=== PATIENT | male | born 1940 | race Caucasian/White ===

== ENCOUNTER 2016-08-26 19:57 | Inpatient (IN) | payer BC, OTHER ==
[~2016-08-26] VITALS: Ht 182.9 cm; Wt 149.6 kg
[~2016-08-26 19:57] MED LIST: CRAN1CAP3 PO; DOXY100C76 PO; HYDR-5688 PO; LOSA50TA6 PO; METO200T29 PO; POTA-74 PO; PRS5 PO
[2016-08-26] MEDS ORDERED: SODIUM CHLORIDE 0.9% 1000ML 1,000 ML IV ONE (20:38)
[2016-08-26] MEDS ORDERED: SODIUM CHLORIDE 0.9% 1000ML 1,000 ML IV STA (20:38)
--- NOTE | 2016-08-26 20:40 | EMERGENCY ROOM VISIT NOTE ---
"History Report prepared by Mann: Eliezer Emery Under the Supervision of: Dr. Vamshi Wood M.D. First contact with patient: 20:30 Chief Complaint: FALL Stated Complaint: FALL, WEAKNESS History of Present Illness The patient is a 75 year old male who presents to the Emergency Room with complaints of an acute fall that occurred at approximately 1900 tonight. The patient was walking out of his bathroom when he fell. He did not pass out and fell without warning. The patient did not sustain any injuries from the fall and currently denies any pain. The patient denies fevers, headaches, chest pain , shortness of breath, abdominal pain, black or bloody stools, weakness or numbness. The patient was on the ground for at least 30 minutes after the fall. 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 He was seen by [facility] last Monday and was told he has an infection. He was started on antibiotics three days ago. The mass has not changed. The mass occasionally bleeds. The patient is on Coumadin. Source of History: patient, family, spouse/significant other Review of Systems See HPI for pertinent positives & negatives. A total of 10 systems reviewed and were otherwise negative. 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 Nurse's notes were reviewed and I agree with. Family History Patient reports no known family medical history. Social History Smoking Status: Former Smoker Alcohol Use: none Drug Use: none Marital Status: Housing Status: lives with family Occupation Status: retired Current/Historical Medications Scheduled Aspirin (Aspirin Ec), 81 MG PO QAM Clotrimazole W/ Betamethasone (Lotrisone), 1 APPLN TOP BID Digoxin (Digoxin), 0.125 MG PO QAM Docusate Sodium (Colace), 100 MG PO AMPM Doxycycline Hyclate (Vibramycin), 100 MG PO BID Ferrous Gluconate (Ferrous Gluconate), 324 MG PO AMPM Finasteride (Finasteride), 5 MG PO QAM Furosemide (Lasix), 20 MG PO QAM Ketoconazole (Topical) (Ketoconazole), 1 APPLN TOP BID Losartan Potassium (Cozaar), 50 MG PO QAM Metformin Hcl (Glucophage), 500 MG PO QAM Metoprolol Succinate (Toprol Xl), 200 MG PO QAM Nystatin/Triamcinolone (Mycolog ||), 1 APPLN TOP BID Potassium Chloride (Potassium Chloride Er), 10 MEQ PO QAM Probiotic Product (Pro-Biotic Blend), 1 CAP PO AMPM Warfarin Sodium (Coumadin), 2.5 MG PO 2XWK Warfarin Sodium (Coumadin), 5 MG PO 5XWK Scheduled PRN Acetaminophen (Acetaminophen Extra Stren), 500 MG PO Q6 PRN for Pain Allergies Coded Allergies: Metronidazole (Verified Allergy, Severe, see below, 08/26/16) Last discharge summary indicates flagyl was stopped for possible temporal relation to foot drop that developed that admission. Amoxicillin (Verified Allergy, Intermediate, rash, 08/26/16) Physical Exam Vital Signs Date Time Temp Pulse Resp B/P Pulse Ox O2 Delivery O2 Flow Rate FiO2 08/27/16 03:30 101 20 95 08/27/16 03:00 95 15 96 08/27/16 02:30 106 20 129/112 93 Nasal Cannula 2.0 08/27/16 02:00 106 22 92 Nasal Cannula 2.0 08/27/16 01:48 100 22 109/61 98 Nasal Cannula 2.0 08/27/16 00:27 118 08/27/16 00:00 116 20 130/65 96 Nasal Cannula 2.0 08/26/16 23:30 37.3 116 19 128/52 95 Nasal Cannula 3.0 08/26/16 21:32 120 24 134/56 94 Nasal Cannula 3.0 08/26/16 20:32 123 08/26/16 20:00 90 Nasal Cannula 3.0 08/26/16 19:58 37.5 134 14 132/78 88 Room Air Physical Exam General: Non ill appearing obese older male no acute distress. HEENT: Normal cephalic atraumatic. Pupils are equal round and reactive to light. Sclerae anicteric. Extraocular movements are intact. Oropharynx is pink with moist mucous membranes. No swelling of the mouth lips or tongue. Neck: Supple with a midline trachea. No meningeal signs or stiffness, no JVD or bruits. No Stridor. Chest: Clear to auscultation bilaterally. No wheezes or rhonchi. No increased work of breathing. Heart: Irregularly irregular mildly tachycardic. Abdomen: Soft nontender, nondistended without rebound guarding or rigidity. Extremities: No cyanosis clubbing or edema. No calf tenderness or assymetry Spine/Back. Non tender to palpation. No CVA tenderness Skin: Good turgor without rashes. Neurologic exam: Cranial nerves two through 12 are intact. Motor and sensation are intact and symmetrical throughout. Genitourinary: Large scrotal mass that is very complex appearing, purple, skin breakdown, says color is unchanged. Medical Decision & Procedures ER Provider Diagnostic Interpretation: Radiology results as stated below per my review and radiologist interpretation: CHEST ONE VIEW PORTABLE CLINICAL HISTORY: Chest pain. Fall. COMPARISON STUDY: Chest radiograph March 02, 2014. FINDINGS: No pneumothorax or pleural effusion is present. Mild cardiomegaly is unchanged. There is no evidence of pulmonary edema. No airspace opacities are identified. IMPRESSION: No acute cardiopulmonary findings. Electronically signed by: Aroldo Mahan M.D. 08/26/2016 9:25 PM Dictated Date/Time: 08/26/2016 9:[address] PELVIS: CT of the abdomen and pelvis comparison dated 06/22/2015. CT of the abdomen and pelvis performed same day. Redemonstrated is marked nodularity and skin thickening along the inferior portion of what appears to be the scrotum and/or part of the patient's pannus. There is no soft tissue gas to suggest necrotizing process. This is not significantly chained since prior comparison. There is mild skin thickening and some subcutaneous soft tissue edema involving the pre-pubic and pannus. Please correlate for cellulitis. No subcutaneous soft tissue fluid collection or evidence of necrotizing process. Radiologist: Jesus Bruno MD Laboratory Results 08/26/16 21:15 Red Blood Count 4.81, Mean Corpuscular Volume 86.7, Mean Corpuscular Hemoglobin 28.3, Mean Corpuscular Hemoglobin Concent 32.6, Mean Platelet Volume 9.7, Neutrophils (%) (Auto) 91.1, Lymphocytes (%) (Auto) 4.4, Monocytes (%) (Auto) 4.1, Eosinophils (%) (Auto) 0.0, Basophils (%) (Auto) 0.1, Neutrophils # (Auto) 18.49, Lymphocytes # (Auto) 0.90, Monocytes # (Auto) 0.83, Eosinophils # (Auto) 0.01, Basophils # (Auto) 0.03 08/26/16 21:15 Test 08/26/16 21:15 08/26/16 21:23 08/26/16 21:29 08/27/16 03:06 White Blood Count 20.33 K/uL (4.8-10.8) Red Blood Count 4.81 M/uL (4.7-6.1) Hemoglobin 13.6 g/dL (14.0-18.0) Hematocrit 41.7 % (42-52) Mean Corpuscular Volume 86.7 fL (80-100) Mean Corpuscular Hemoglobin 28.3 pg (25-34) Mean Corpuscular Hemoglobin Concent 32.6 g/dl (32-36) Platelet Count 297 K/uL (130-400) Mean Platelet Volume 9.7 fL (7.4-10.4) Neutrophils (%) (Auto) 91.1 % Lymphocytes (%) (Auto) 4.4 % Monocytes (%) (Auto) 4.1 % Eosinophils (%) (Auto) 0.0 % Basophils (%) (Auto) 0.1 % Neutrophils # (Auto) 18.49 K/uL (1.4-6.5) Lymphocytes # (Auto) 0.90 K/uL (1.2-3.4) Monocytes # (Auto) 0.83 K/uL (0.11-0.59) Eosinophils # (Auto) 0.01 K/uL (0-0.5) Basophils # (Auto) 0.03 K/uL (0-0.2) RDW Standard Deviation 50.6 fL (36.4-46.3) RDW Coefficient of Variation 15.9 % (11.5-14.5) Immature Granulocyte % (Auto) 0.3 % Immature Granulocyte # (Auto) 0.07 K/uL (0.00-0.02) Prothrombin Time 31.6 SECONDS (9.0-12.0) Prothromb Time International Ratio 2.8 (0.9-1.1) Activated Partial Thromboplast Time 42.7 SECONDS (21.0-31.0) Partial Thromboplastin Ratio 1.6 Anion Gap 10.0 mmol/L (3-11) Est Creatinine Clear Calc Drug Dose 80.1 ml/min Estimated GFR () 68.1 Estimated GFR (Non- 58.8 BUN/Creatinine Ratio 19.2 (10-20) Osmolality 289 mOsm/kg (280-300) Calcium Level 8.8 mg/dl (8.5-10.1) Total Bilirubin 0.5 mg/dl (0.2-1) Direct Bilirubin 0.1 mg/dl (0-0.2) Aspartate Amino Transf (AST/SGOT) 17 U/L (15-37) Alanine Aminotransferase (ALT/SGPT) 13 U/L (12-78) Alkaline Phosphatase 60 U/L (45-117) Total Creatine Kinase 139 U/L (39-308) Creatine Kinase MB 1.7 ng/ml (0.5-3.6) Creatine Kinase MB Ratio 1.2 (0-3.0) Total Protein 8.1 gm/dl (6.4-8.2) Albumin 3.2 gm/dl (3.4-5.0) Lipase 162 U/L (73-393) Bedside Lactic Acid Venous 3.17 mmol/L (0.90-1.70) Bedside Troponin I 0.000 ng/ml (0-0.045) Lactic Acid Level 1.9 mmol/L (0.4-2.0) Laboratory studies as stated above per my review. Medications Administered Medications (Trade) Dose Ordered Sig/Jakub Route Start Time Stop Time Status Last Admin Dose Admin Sodium Chloride 1,000 ml @ 999 mls/hr Q1H1M STAT IV 08/26/16 20:38 08/26/16 21:38 DC 08/26/16 21:34 999 MLS/HR Sodium Chloride 1,000 ml @ 150 mls/hr Q6H40M ONCE IV 08/26/16 20:38 08/27/16 03:17 DC 08/26/16 21:34 150 MLS/HR Aztreonam 2000 mg/ Dextrose 110 ml @ 100 mls/hr ONE STAT IV 08/26/16 21:41 08/26/16 22:46 DC 08/26/16 23:23 100 MLS/HR Daptomycin/Sodium Chloride (Cubicin IV/Nss 50ml) 68 ml @ 100 mls/hr ONE STAT IV 08/26/16 21:41 08/26/16 22:21 DC 08/26/16 22:16 100 MLS/HR Morphine Sulfate (MoRPHine SULFATE INJ) 4 mg NOW STAT IV 08/27/16 01:25 08/27/16 01:26 DC 08/27/16 01:48 4 MG Ondansetron HCl 4 mg 4 mg NOW STAT IV 08/27/16 01:25 08/27/16 01:26 DC 08/27/16 01:48 4 MG Sodium Chloride (Nss 1000ml) 1,000 ml @ 999 mls/hr Q1H1M STAT IV 08/27/16 01:34 08/27/16 02:34 DC 08/27/16 01:48 999 MLS/HR ECG Indication: other (fall) Rate (beats per minute): 123 Rhythm: atrial fibrillation (RVR) Findings: nonspecific-ST abn, other (RVR) Change: Rate has increased compared to EKG on 2013. ED Course 2030: Past medical records reviewed. The patient was evaluated in room C11b, and a complete history and physical examination were performed. 2037: NSS 1000 ml @ 150 mls/hr, NSS 1000 ml @ 999 mls/hr. 2134: Examined the patient's scrotal hemangioma. 2140: Daptomycin 900 mg / NSS 68 ml @ 100 mls/hr, Aztreonam 2000 mg / dextrose 110 ml @ 100 mls/hr. 2149: [facility] She would like a urology consult. 2199: Spoke with the on-call Urologist. They recommended a CT scan. The patient was updated and agrees with the plan. 2240: The patient is resting comfortably and doesn't have any complaints. 0116: [facility] The patient will be evaluated. 0125: Zofran 4 mg IV, Morphine Sulfate 4 mg IV. 0134: NSS 1000 ml @ 999 mls/hr. Medical Decision Differential diagnosis includes cellulitis, Quoc's gangrene, electrolyte or metabolic abnormality, sepsis. This patient comes in as described above. He was placed in room C11. He is here for treatment and evaluation after falling. He says he feels well. He denies fever. He was started on doxycycline for scrotal infection. he has a large scrotal mass that tends to get infected. He is difficult to examine this due to his large body size. He has no chest pain or shortness of breath. He says he feels fine. he denies fever home. He is mildly tachycardic here but normotensive. IV access established and I was concerning that he does have a white count at 20. His lactic acid is also elevated. He was given IV hydration and responded to this he got less tachycardic and was urinating frequently. I did a CAT scan of his abdomen and pelvis after talking the radiologist and there is no evidence to suggest necrotic infection or subcutaneous air. He would be difficult clinically tell if he has a Quoc's due to the chronic discoloration of his scrotal mass but on CAT scan there is no evidence. The urologist told me if this looked normal that he could be admitted here for IV antibiotics. I did give the patient broad-spectrum IV daptomycin and IV aztreonam. He is pen allergic and he received these in the ER. I did consult Dr. Daly, [facility]. She saw the patient ER and will admit the patient for further treatment and evaluation the patient also he did receive IV morphine and IV Zofran for pain management in the ER. Family was happy with the plan and he will be admitted. Consults Time Called: 109 Consulting Physician: Kira Robertson [id number] Returned Call: 115 115: [facility] The patient will be evaluated. Impression Primary Impression: Sepsis Additional Impressions: Scrotal infection Testicular mass Critical Care I have personally spent greater than 30 minutes of critical care time in the direct management of this patient. This includes bedside care, interpretation of diagnostic studies, and testing, discussion with consultants, patient, and family members, and other required patient management activities. This 30 minutes is in excess of all separately billable procedures. Scribe Attestation The scribe's documentation has been prepared under my direction and personally reviewed by me in its entirety. I confirm that the note above accurately reflects all work, treatment, procedures, and medical decision making performed by me. Departure Information Dispostion Being Evaluated By Hospitalist Referrals Newhouser, Donte D., D.O. (PCP) Patient Instructions My [facility] Problem Qualifiers"
--- NOTE | 2016-08-26 21:26 | DIAGNOSTIC IMAGING REPORT ---
CHEST ONE VIEW PORTABLE CLINICAL HISTORY: Chest pain. Fall. COMPARISON STUDY: Chest radiograph March 02, 2014. FINDINGS: No pneumothorax or pleural effusion is present. Mild cardiomegaly is unchanged. There is no evidence of pulmonary edema. No airspace opacities are identified. IMPRESSION: No acute cardiopulmonary findings. Electronically signed by: Aroldo Mahan M.D. 08/26/2016 9:25 PM Dictated Date/Time: 08/26/2016 9:24 PM
[2016-08-26 21:33] LABS: BASO % 0.1 %; BASO ABS # 0.03 K/uL (0-0.2); COMPLETE YES; HEMATOCRIT 41.7 % (42-52); IG% 0.3 %; LYMPH % 4.4 %; MEAN CELL VOLUME 86.7 fL (80-100); MEAN CORPUSCULAR HEMOGLOBIN 28.3 pg (25-34); MEAN CORPUSCULAR HGB CONC 32.6 g/dl (32-36); MEAN PLATELET VOLUME 9.7 fL (7.4-10.4); MONO % 4.1 %; NEUT % 91.1 %; PLATELET COUNT 297 K/uL (130-400); RED BLOOD COUNT 4.81 M/uL (4.7-6.1); WHITE BLOOD COUNT 20.33 K/uL (4.8-10.8)
[2016-08-26] MEDS ORDERED: AZTREONAM IV 2,000 MG in DEXTROSE 5% 100ML 100 ML IV STA (21:41)
[2016-08-26] MEDS ORDERED: DAPTOmycin IV 900 MG in SODIUM CHLORIDE 0.9% 50ML 50 ML IV STA (21:41)
[2016-08-26 21:43] LABS: INR 2.8 (0.9-1.1); PARTIAL THROMBOPLASTIN RATIO 1.6; PROTHROMBIN TIME (PATIENT) 31.6 SECONDS (9.0-12.0)
[2016-08-26 21:50] LABS: BUN/CREATININE RATIO 19.2 (10-20); CALCIUM 8.8 mg/dl (8.5-10.1); CREATININE 1.2 mg/dl (0.60-1.40); POTASSIUM 4.8 mmol/L (3.5-5.1)
[2016-08-26 21:55] LABS: CKMB/CK RATIO 1.2 (0-3.0)
[2016-08-26] MEDS ORDERED: NYSTCRE11 TOP (22:17)
[2016-08-26] MEDS ORDERED: KETO2SHA TOP (22:17)
[2016-08-26] MEDS ORDERED: ACET-749 PO (22:17)
[2016-08-26] MEDS ORDERED: CLOTCRE33 TOP (22:17)
[2016-08-26] MEDS ORDERED: DOXY100C2 PO (22:26)
[2016-08-27] VITALS (8 sets, daily range): BP systolic 103–118; BP diastolic 55–64; PULSE 84–96; TEMP 36.6–36.9; O2SAT 90–93; Ht 182.9 cm; Wt 149.6 kg
[2016-08-27] MEDS ORDERED: ONDANSETRON INJ 2 MG/ML 2 ML VIAL IV STA (01:25)
[2016-08-27] MEDS ORDERED: MoRPHine SULFATE 4 MG/ML 1 ML CARP\\VIAL IV STA (01:25)
[2016-08-27] MEDS ORDERED: SODIUM CHLORIDE 0.9% 1000ML 1,000 ML IV STA (01:34)
[2016-08-27] MEDS ORDERED: ONDANSETRON INJ 2 MG/ML 2 ML VIAL IV PRN (02:00)
[2016-08-27] MEDS ORDERED: GLUCOSE 10 TABS/TUBE PO PRN ×2 (02:00→02:15)
[2016-08-27] MEDS ORDERED: ACETAMINOPHEN 325 MG TAB PO PRN (02:00)
[2016-08-27] MEDS ORDERED: GLUCAGON FOR INJ 1 MG VIAL SQ PRN ×2 (02:00→02:15)
[2016-08-27] MEDS ORDERED: POLYETHYLENE (MIRALAX) 17 GM PACK PO PRN (02:00)
[2016-08-27] MEDS ORDERED: DEXTROSE 50% 50 ML SYR IV PRN ×2 (02:00→02:15)
[2016-08-27] MEDS ORDERED: GLUCOSE 40% GEL 15 GM TUBE PO PRN ×2 (02:00→02:15)
[2016-08-27] MEDS ORDERED: PHARMACY GLYCEMIC MGMT CONSULT PRN (02:25)
--- NOTE | 2016-08-27 03:35 | History and Physical ---
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 He was given this by wound care who sees him for this issue regularly. He underwent an IR embolization of this area at [facility], and there are plans for another IR procedure in the near future. He denies any fevers, chills or feeling bad in the last couple of days, when at home he tripped and fell onto him right side where his family found him. The patient remembers the fall, denying any loss of consciousness or lightheadedness preceding the episode. He feels he might have just tripped. He denies any dysuria, or difficulties urinating. There is a red rash area that appears to be new to the patient and his which encompasses his suprapubic region and appears consistent with a cellulitis. He has a superficial wound to a dependent area of swelling to the left side of his scrotal area. He denies any headache, chest pain, shortness of breath, sore throat, congestion, cough, fevers, chills, nausea, vomiting, diarrhea, constipation, blood per rectum or pain anywhere else. 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 Social History Smoking Status: Former Smoker Smokeless Tobacco Use: Unknown Alcohol Use: none Drug Use: none Marital Status: Housing status: lives with significant other Occupational Status: retired Immunizations History of Influenza Vaccine: Yes Influenza Vaccine Date: May 09, 2016 History of Tetanus Vaccine?: Yes (UTD) Tetanus Immunization Date: Aug 09, 2012 History of Pneumococcal: Yes Pneumococcal Date: Aug 27, 2006 History of Hepatitis B Vaccine: No Multi-Drug Resistant Organisms History of MDRO: No Allergies Coded Allergies: Metronidazole (Verified Allergy, Severe, see below, 08/26/16) Last discharge summary indicates flagyl was stopped for possible temporal relation to foot drop that developed that admission. Amoxicillin (Verified Allergy, Intermediate, rash, 08/26/16) Home Medications Scheduled Aspirin (Aspirin Ec), 81 MG PO QAM Clotrimazole W/ Betamethasone (Lotrisone), 1 APPLN TOP BID Digoxin (Digoxin), 0.125 MG PO QAM Docusate Sodium (Colace), 100 MG PO AMPM Doxycycline Hyclate (Vibramycin), 100 MG PO BID Ferrous Gluconate (Ferrous Gluconate), 324 MG PO AMPM Finasteride (Finasteride), 5 MG PO QAM Furosemide (Lasix), 20 MG PO QAM Ketoconazole (Topical) (Ketoconazole), 1 APPLN TOP BID Losartan Potassium (Cozaar), 50 MG PO QAM Metformin Hcl (Glucophage), 500 MG PO QAM Metoprolol Succinate (Toprol Xl), 200 MG PO QAM Nystatin/Triamcinolone (Mycolog ||), 1 APPLN TOP BID Potassium Chloride (Potassium Chloride Er), 10 MEQ PO QAM Probiotic Product (Pro-Biotic Blend), 1 CAP PO AMPM Warfarin Sodium (Coumadin), 2.5 MG PO 2XWK Warfarin Sodium (Coumadin), 5 MG PO 5XWK Scheduled PRN Acetaminophen (Acetaminophen Extra Stren), 500 MG PO Q6 PRN for Pain Review of Systems All systems reviewed and negative except as indicated in HPI Physical Exam Vital Signs Date Time Temp Pulse Resp B/P Pulse Ox O2 Delivery O2 Flow Rate FiO2 08/27/16 00:27 118 08/27/16 00:00 116 20 130/65 96 Nasal Cannula 2.0 08/26/16 23:30 37.3 116 19 128/52 95 Nasal Cannula 3.0 08/26/16 21:32 120 24 134/56 94 Nasal Cannula 3.0 08/26/16 20:32 123 08/26/16 20:00 90 Nasal Cannula 3.0 08/26/16 19:58 37.5 134 14 132/78 88 Room Air GEN: Obese, in no acute distress, alert and appropriate, cannot move around bed very easily. HEENT: NC/AT, PERRL, normal sclerae CARDIO: reg rate, irregular rhythm, S1/2 heard without m/g/r LUNGS: CTA bilaterally, no crackles, rales or wheezes, good diaphragmatic excursion ABD: soft, non-tender, non-distended, no rebound or guarding. There is an area of erythema extending up from suprapubic region to just below the umbilicus : penis cannot be seen, there are two testicles of normal size. There is a large area of dark purple skin with chronic changes to skin. On the under surface of this swelling is a chafed area that is an open wound. It appears irritated and inflamed. EXTREMITY: RP and DP palpable 2+ bilat, no LE swelling or edema, deep purple rough skin consistent with chronic changes from venous stasis, extremities are warm and well-perfused NEURO: CN 2-12 grossly intact, sensation intact throughout MUSC: Generalized weakness, no focal deficits. SKIN: warm and dry and as above Diagnostics Laboratory Results Results Past 24 Hours Test 08/26/16 20:38 08/26/16 21:15 08/26/16 21:23 08/26/16 21:29 Range/Units Creatine Kinase MB Ratio 1.2 0-3.0 White Blood Count 20.33 4.8-10.8 K/uL Red Blood Count 4.81 4.7-6.1 M/uL Hemoglobin 13.6 14.0-18.0 g/dL Hematocrit 41.7 42-52 % Mean Corpuscular Volume 86.7 80-100 fL Mean Corpuscular Hemoglobin 28.3 25-34 pg Mean Corpuscular Hemoglobin Concent 32.6 32-36 g/dl Platelet Count 297 130-400 K/uL Mean Platelet Volume 9.7 7.4-10.4 fL Neutrophils (%) (Auto) 91.1 % Lymphocytes (%) (Auto) 4.4 % Monocytes (%) (Auto) 4.1 % Eosinophils (%) (Auto) 0.0 % Basophils (%) (Auto) 0.1 % Neutrophils # (Auto) 18.49 1.4-6.5 K/uL Lymphocytes # (Auto) 0.90 1.2-3.4 K/uL Monocytes # (Auto) 0.83 0.11-0.59 K/uL Eosinophils # (Auto) 0.01 0-0.5 K/uL Basophils # (Auto) 0.03 0-0.2 K/uL RDW Standard Deviation 50.6 36.4-46.3 fL RDW Coefficient of Variation 15.9 11.5-14.5 % Immature Granulocyte % (Auto) 0.3 % Immature Granulocyte # (Auto) 0.07 0.00-0.02 K/uL Prothrombin Time 31.6 9.0-12.0 SECONDS Prothromb Time International Ratio 2.8 0.9-1.1 Activated Partial Thromboplast Time 42.7 21.0-31.0 SECONDS Partial Thromboplastin Ratio 1.6 Sodium Level 130 136-145 mmol/L Potassium Level 4.8 3.5-5.1 mmol/L Chloride Level 99 98-107 mmol/L Carbon Dioxide Level 21 21-32 mmol/L Anion Gap 10.0 3-11 mmol/L Blood Urea Nitrogen 23 7-18 mg/dl Creatinine 1.20 0.60-1.40 mg/dl Est Creatinine Clear Calc Drug Dose 80.1 ml/min Estimated GFR () 68.1 Estimated GFR (Non- 58.8 BUN/Creatinine Ratio 19.2 10-20 Random Glucose 155 70-99 mg/dl Calcium Level 8.8 8.5-10.1 mg/dl Total Bilirubin 0.5 0.2-1 mg/dl Direct Bilirubin 0.1 0-0.2 mg/dl Aspartate Amino Transf (AST/SGOT) 17 15-37 U/L Alanine Aminotransferase (ALT/SGPT) 13 12-78 U/L Alkaline Phosphatase 60 45-117 U/L Total Creatine Kinase 139 39-308 U/L Creatine Kinase MB 1.7 0.5-3.6 ng/ml Total Protein 8.1 6.4-8.2 gm/dl Albumin 3.2 3.4-5.0 gm/dl Lipase 162 73-393 U/L Bedside Lactic Acid Venous 3.17 0.90-1.70 mmol/L Bedside Troponin I 0.000 0-0.045 ng/ml Microbiology Results 08/26/16 Blood Culture, Received Pending 08/26/16 Blood Culture, Received Pending Diagnostic Radiology CXR: FINDINGS: No pneumothorax or pleural effusion is present. Mild cardiomegaly is unchanged. There is no evidence of pulmonary edema. No airspace opacities are identified. IMPRESSION: No acute cardiopulmonary findings. A/P CT: IMPRESSION: 1. No evidence of bowel obstruction. No evidence of free air 2. Surgically absent gallbladder and appendix 3. Diverticulosis. No evidence of acute diverticulitis 4. Anterior bladder diverticulum with mild perivesical 5. Mildly prominent left inguinal lymph nodes, likely reactive stranding CT pelvis (attention to scrotum): IMPRESSION: 1. Skin thickening involving the scrotum and anterior pannus 2. No fluid collections to indicate an abscess 3. No air within the soft tissues 4. 25 mm soft tissue lesion within the upper medial right thigh, likely inflammatory EKG Afib with RVR, rate 123, LAD Impression Assessment and Plan 75 yoM with sepsis 2/2 wound 1. Sepsis 2/2 scrotal wound-urine studies pending (another poss source), trend lactate. Resuscitated in ER with 3L IVF and good response. Cont braoad- spectrum IVF, blood cultures pending. ID and Urology consulted. 2. Generalized weakness 2/2 #1. s/p mechanical fall at home again likely 2/2# 1. No focal findings on exam or symptoms reported. 3. Leukocytosis 2/2 #1 4. Hyponatremia-hypotonic, hypovolemic--recheck after IVF resuscitation. 5. Atrial fibrillation with RVR-likely 2/2 to infection. Pt with known afib who is on warfarin and who is rate controlled on digoxin and Toprol XL. Pt did not hit his head during the fall, and is not altered at this time. 6. Hypertension-controlled, cont current meds after resuscitation efforts as tolerated. Defer to primary team to adjust. 7. BPH-cont finasteride 8. JUAN MANUEL DVT proph-coumadin Dispo-to tele floor Marisol Daly, Hospitalist Level of Care Telemetry Resuscitation Status FULL RESUSCITATION VTE Prophylaxis VTE Risk Assessment Done? Y/N: Yes Risk Level: Moderate Given or contraindicated: Warfarin (Coumadin)"
[2016-08-27] MEDS: AZTREONAM IV 2,000 MG in DEXTROSE 5% 100ML 100 ML IV SCH ×3 (05:19→21:50)
[2016-08-27] MEDS: MoRPHine SULFATE 4 MG/ML 1 ML CARP\\VIAL IV PRN ×4 (05:21→21:51)
[2016-08-27] MEDS ORDERED: INFLUENZA ADMINISTRATION CHARGE ONE (05:45)
[2016-08-27] MEDS ORDERED: PNEUMOCOCCAL POLYSACCHARIDES 25 MCG/0.5 ML VIAL/SYR IM. ONE (05:45)
[2016-08-27] MEDS ORDERED: PNEUMOCOCCAL ADMINISTRATION CHARGE ONE (05:45)
[2016-08-27] MEDS ORDERED: INFLUENZA VIRUS QUAD VACCINE 0.5 ML SYR IM. ONE (05:45)
--- NOTE | 2016-08-27 06:03 | DIAGNOSTIC IMAGING REPORT ---
CT SCAN OF THE ABDOMEN AND PELVIS WITHOUT CONTRAST CLINICAL HISTORY: Trauma, abdominal pain, weakness, groin infection. COMPARISON STUDY: 06/22/2015 TECHNIQUE: CT scan of the abdomen and pelvis was performed from the lung bases to the proximal femurs. Images are reviewed in the axial, sagittal, and coronal planes. IV contrast was not administered for this examination. CT DOSE: 2164.73 mGy.cm FINDINGS: Lower chest: There is bibasal interstitial thickening/atelectasis. Liver: The liver has a slightly nodular surface. No focal masses are visualized. Gallbladder: Surgically absent Spleen: Normal in size and attenuation. Pancreas: Unremarkable. Adrenal glands: Unremarkable. Kidneys: There is a 26 mm right renal cyst and 23 mm right renal cyst. No renal calculi are visualized. There is no hydronephrosis. Bowel: There are no transition zones to indicate bowel obstruction. By history the appendix is surgically absent. There is no acute diverticulitis. Peritoneum: There is no intraperitoneal free air or abdominal ascites. Vasculature: The abdominal aorta is normal in course and caliber. Adenopathy: There are a few mildly prominent left inguinal lymph nodes, likely reactive. Pelvic viscera: There is a diverticulum arising from the anterior aspect of the bladder, likely representing a urachal diverticulum. There is minimal surrounding stranding. The diverticulum appears smaller than the prior study. Skeletal structures: No destructive osseous lesions are seen. IMPRESSION: 1. No evidence of bowel obstruction. No evidence of free air 2. Surgically absent gallbladder and appendix 3. Diverticulosis. No evidence of acute diverticulitis 4. Anterior bladder diverticulum with mild perivesical 5. Mildly prominent left inguinal lymph nodes, likely reactive stranding Electronically signed by: Esau Rosa M.D. 08/27/2016 6:02 AM Dictated Date/Time: 08/27/2016 5:54 AM
--- NOTE | 2016-08-27 07:25 | Urology Consultation ---
"History General Date of Service: Aug 27, 2016. Primary Care Physician: Donte Szymanski D.O. 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 He recently had a fall and had increased bleeding to the area. He was seen by another provider and started on Doxy for the last 3 days. The area of the scrotum is chronically red but the family felt there was a new area that was concerning for a rash/cellulitis. No fevers. No chills. No nausea. No vomitting. He has had treatments with IR embolizaiton in the past and is due for more in the future to treat vascular issues related to the scrotum. This was done in [place]. The patient was seen in the ER and evaluated by the staff and myself. A CT scan was recommended to rule out Fourn Gangrene. The was completed. No official read was available but no subq air was visible; There was scrotal wall thickening consistent with cellulitis. He was then admitted for broad spectrum abx and additional wound care. Laboratory Labs were reviewed and are within normal limits unless listed below. Labs are available in the chart and at [facility] Problem List Medical Problems: (1) Acquired buried penis Status: Acute (2) Scrotal infection Status: Acute (3) Sepsis Status: Acute (4) Testicular mass Status: Acute (5) Urinary retention Status: Acute Past History A Fib, diabetes, hypertension Family History Patient reports no known family medical history. Social History Hx Tobacco Use In Past Year?: No Marital status: Housing status: lives with significant other Occupation status: retired Immunizations History of Influenza Vaccine: Yes Influenza Vaccine Date: May 09, 2016 History of Tetanus Vaccine?: Yes (UTD) Tetanus Immunization Date: Aug 09, 2012 History of Pneumococcal: Yes Pneumococcal Date: Aug 27, 2006 History of Hepatitis B Vaccine: No History of MDRO No Allergies Coded Allergies: Metronidazole (Verified Allergy, Severe, see below, 08/26/16) Last discharge summary indicates flagyl was stopped for possible temporal relation to foot drop that developed that admission. Amoxicillin (Verified Allergy, Intermediate, rash, 08/26/16) Medications Home Medications: Home Meds and Scripts Medications Dose Route/Sig Max Daily Dose Days Date Category Dose Instructions Vibramycin (Doxycycline Hyclate) 100 Mg Cap 100 Mg PO BID 08/26/16 Reported Mycolog || (Nystatin/Triamcinolone Acetonide) Cr 1 Appln TOP BID 08/26/16 Reported Ketoconazole (Ketoconazole (Topical)) 2 % Sha 1 Appln TOP BID 30 08/26/16 Reported Lotrisone (Clotrimazole W/ Betamethasone) 1 Cre Cre 1 Appln TOP BID 7 08/26/16 Reported USE ON GROIN Finasteride 5 Mg Tab 5 Mg PO QAM 08/26/16 Reported Acetaminophen Extra Stren (Acetaminophen) 500 Mg Tab 500 Mg PO Q6 PRN 08/19/16 Reported Coumadin (Warfarin Sodium) 5 Mg Tab 5 Mg PO 5XWK 06/22/15 Reported GIVE 1 WHOLE TABLET EXCEPT MONDAY AND THURSDAYS GIVE ON MONDAY,,MON,MON AND SATURDAYS Coumadin (Warfarin Sodium) 5 Mg Tab 2.5 Mg PO 2XWK 06/22/15 Reported GIVE 1/2 TABLET ON MONDAYS AND Potassium Chloride Er (Potassium Chloride) 10 Meq Tab 10 Meq PO QAM 06/22/15 Reported Ferrous Gluconate 324 Mg Tab 324 Mg PO AMPM 06/22/15 Reported Colace (Docusate Sodium) 100 Mg Cap 100 Mg PO AMPM 06/22/15 Reported Digoxin 0.125 Mg Tab 0.125 Mg PO QAM 06/22/15 Reported Pro-Biotic Blend (Probiotic Product) 1 Cap Cap 1 Cap PO AMPM 06/22/15 Reported ACCUFLORA Cozaar (Losartan Potassium) 50 Mg Tab 50 Mg PO QAM 06/22/15 Reported Aspirin Ec (Aspirin) 81 Mg Tab 81 Mg PO QAM 06/19/13 Reported Lasix (Furosemide) 20 Mg Tab 20 Mg PO QAM 03/03/13 Reported Toprol Xl (Metoprolol Succinate) 200 Mg Tab 200 Mg PO QAM 03/26/12 Reported Glucophage (Metformin Hcl) 500 Mg Tab 500 Mg PO QAM 03/26/12 Reported TAKE THIS MEDICATION ONCE DAILY WITH A MEAL. Inpatient Medications: Current Inpatient Medications Medications (Trade) Dose Ordered Sig/Jakub Route Start Time Stop Time Status Last Admin Dose Admin Acetaminophen (Tylenol Tab) 650 mg Q4H PRN PO 08/27/16 02:00 09/26/16 01:59 Ondansetron HCl (Zofran Inj) 4 mg Q6H PRN IV 08/27/16 02:00 09/26/16 01:59 Polyethylene (Miralax Powder Packet) 17 gm DAILY PRN PO 08/27/16 02:00 09/26/16 01:59 Glucose (Glucose 40% Gel) 15-30 GRAMS 15 GRAMS... UD PRN PO 08/27/16 02:00 09/26/16 01:59 Glucose (Glucose Chew Tab) 4-8 Tablets 4 Tabl... UD PRN PO 08/27/16 02:00 09/26/16 01:59 Dextrose (Dextrose 50% 50ML Syringe) 25-50ML OF 50% DW IV FOR... UD PRN IV 08/27/16 02:00 09/26/16 01:59 Glucagon (Glucagon Inj) 1 mg UD PRN SQ 08/27/16 02:00 09/26/16 01:59 Insulin Glargine (Lantus Solostar Pen) 10 unit Q12 SC 08/27/16 09:00 09/26/16 08:59 Insulin Aspart (novoLOG ASPART) SLIDING SCALE If C... ACHS SC 08/27/16 06:30 09/26/16 06:59 Miscellaneous Information (Consult Glycemic Management Pharmacy) 1 ea DAILY PRN N/A 08/27/16 02:25 09/26/16 02:24 Aspirin (Ecotrin Tab) 81 mg QAM PO 08/27/16 09:00 09/26/16 08:59 Digoxin (Lanoxin Tab) 0.125 mg DAILY@1600 PO 08/27/16 16:00 09/26/16 15:59 Docusate Sodium (coLACE CAP) 100 mg BID PO 08/27/16 09:00 09/26/16 08:59 Ferrous Gluconate (Ferrous Gluconate Tab) 324 mg BID PO 08/27/16 09:00 09/26/16 08:59 Finasteride (Proscar Tab) 5 mg QAM PO 08/27/16 09:00 09/26/16 08:59 Losartan Potassium (coZAAR TAB) 50 mg QAM PO 08/27/16 09:00 09/26/16 08:59 Metoprolol Succinate (Toprol Xl Tab) 200 mg QAM PO 08/27/16 09:00 09/26/16 08:59 Warfarin Sodium (Coumadin Tab) 2.5 mg MoTh@1600 PO 08/29/16 16:00 09/28/16 15:59 Warfarin Sodium (Coumadin Tab) 5 mg SuTuWeFrSa@1600 PO 08/27/16 16:00 09/26/16 15:59 Potassium Chloride 10 meq 10 meq DAILY PO 08/27/16 09:00 09/26/16 08:59 Aztreonam 2000 mg/ Dextrose 110 ml @ 100 mls/hr Q8H IV 08/27/16 06:00 09/06/16 05:59 08/27/16 05:19 100 MLS/HR Daptomycin/Sodium Chloride (Cubicin IV/Nss 50ml) 68 ml @ 100 mls/hr Q24H IV 08/27/16 22:00 09/04/16 22:41 Morphine Sulfate (MoRPHine SULFATE INJ) 4 mg Q4H PRN IV 08/27/16 05:00 09/10/16 04:59 08/27/16 05:21 4 MG Review of Systems Review of Systems Constitutional: No chills, No fever Eyes: No blurred vision Neurological: No dizzy Gastrointestinal: No abdominal pain Cardiovascular: No chest pain Respiratory: No shortness of breath Skin: + boils, + problem reported, + rash Musculoskeletal: No joint pain Blood / Lymphatic: + bleed easily Ears / Nose / Throat: No hearing loss Psychologic / Mental: No nervous Male : + weak stream, No blood in urine, No frequent urination All Other Systems: Reviewed and Negative Physical Exam Vital Signs: Vital Signs Past 12 Hours Date Time Temp Pulse Resp B/P Pulse Ox O2 Delivery O2 Flow Rate FiO2 08/27/16 04:36 36.7 93 18 103/64 Nasal Cannula 2.0 08/27/16 03:30 101 20 95 08/27/16 03:00 95 15 96 08/27/16 02:30 106 20 129/112 93 Nasal Cannula 2.0 08/27/16 02:00 106 22 92 Nasal Cannula 2.0 08/27/16 01:48 100 22 109/61 98 Nasal Cannula 2.0 08/27/16 00:27 118 08/27/16 00:00 116 20 130/65 96 Nasal Cannula 2.0 08/26/16 23:30 37.3 116 19 128/52 95 Nasal Cannula 3.0 08/26/16 21:32 120 24 134/56 94 Nasal Cannula 3.0 08/26/16 20:32 123 08/26/16 20:00 90 Nasal Cannula 3.0 08/26/16 19:58 37.5 134 14 132/78 88 Room Air Physical Exam: General Appearance: WD/WN ENT: normal ENT inspection Neck: supple Respiratory/Chest: chest non-tender Cardiovascular: no edema, + irregularly irregular Genitourinary - Male: Scrotum: lesions, rash, pertinent finding Extremities: non-tender Neurologic/Psychiatric: no motor/sensory deficits Skin: + pertinent finding Lymphatic: no adenopathy Assessment & Plan Assessment & Plan (1) Scrotal infection Status: Acute (2) Sepsis Status: Acute Pt has a 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 No evidence of air in the sub-cutaneous tissues on CT scan. No need for surgical intervention at this time. Doxy was likely not enough to cover infection. Rec continued broad spectrum abx until clinical improvement. ID Consult. Wound Care Consult. Given the complexity of this patient and his history, if at any point there is need for surgery or IR procedures, then I would rec transfer back to [place]. However, I suspect with appropriate abx coverage and wound care, he should improve. Will continue to follow closely."
[2016-08-27 07:55] LABS: INR 2.3 (0.9-1.1); PROTHROMBIN TIME (PATIENT) 25.6 SECONDS (9.0-12.0)
[2016-08-27 08:09] LABS: URINE APPEARANCE CLEAR (CLEAR); URINE BILIRUBIN NEG (NEG); URINE COLOR YELLOW; URINE NITRITE NEG (NEG); URINE SPECIFIC GRAVITY 1.009 (1.000-1.030); UROBILINOGEN NEG (NEG)
[2016-08-27 08:13] LABS: MANUAL MICROSCOPIC REQUIRED? NO; REVIEW REQ? NO
[2016-08-27] MEDS: METOPROLOL SUCC 50MG EXT REL TAB PO SCH (08:19)
[2016-08-27] MEDS: FERROUS GLUCONATE 324 MG TAB PO SCH ×2 (08:20→21:29)
[2016-08-27] MEDS: FINASTERIDE 5 MG TAB PO SCH (08:20)
[2016-08-27] MEDS: ASPIRIN 81 MG ECTAB PO SCH (08:20)
[2016-08-27] MEDS: DOCUSATE SODIUM 100 MG CAP PO SCH ×2 (08:20→21:27)
[2016-08-27] MEDS: POTASSIUM CHLORIDE 10 MEQ TABCR PO SCH (08:21)
--- NOTE | 2016-08-27 08:44 | DIAGNOSTIC IMAGING REPORT ---
CT PELVIS NO IV/ORAL CONT (CT) CT DOSE: 1840.92 mGy.cm CLINICAL HISTORY: Inguinal infection. Evaluate for Quoc's gangrene TECHNIQUE: Helical images were acquired without intravenous contrast. COMPARISON STUDY: 08/26/2016. FINDINGS: There is a 3 cm right renal cyst. The distal abdominal aorta is nondilated. There is no pathologic bowel dilatation. There is artifact from a right hip arthroplasty. There are mildly prominent left inguinal lymph nodes, likely reactive. There is no air within the soft tissues. There are no fluid collections to indicate an abscess. There is a 25 mm soft tissue lesion within the upper medial right thigh, likely inflammatory. There is scrotal wall thickening. There is edema within the lower anterior abdominal wall in the region of the patient's pannus. There are degenerative changes present within the lower lumbar spine with evidence of spinal stenosis. There are postsurgical changes of a total right hip arthroplasty. IMPRESSION: 1. Skin thickening involving the scrotum and anterior pannus 2. No fluid collections to indicate an abscess 3. No air within the soft tissues 4. 25 mm soft tissue lesion within the upper medial right thigh, likely inflammatory Electronically signed by: Esau Rosa M.D. 08/27/2016 8:42 AM Dictated Date/Time: 08/27/2016 8:38 AM
[2016-08-27] MEDS: INSULIN ASPART 100 UNITS/ML 3 ML PEN SC SCH ×4 (08:49→21:39)
[2016-08-27] MEDS: INSULIN GLARGINE SOLOSTAR 100 UNITS/ML 3 ML PEN SC SCH ×2 (08:51→21:37)
[2016-08-27] MEDS ORDERED: LOSARTAN POTASSIUM 50 MG TAB PO SCH (09:00)
--- NOTE | 2016-08-27 14:04 | Pharmacy Progress Note ---
Glycemic Control Intl Consult Date of Service Aug 27, 2016. Scope Glycemic Pharmacist consulted by Dr Daly on 08/27/16 for glycemic control and to write orders per [facility] inpatient glycemic control protocol Objective Weight (Kilograms): 149.600 Accuchecks BSG (last 24hrs): Test 08/26/16 21:15 08/27/16 08:38 08/27/16 11:49 Random Glucose 155 mg/dl (70-99) Bedside Glucose 155 mg/dl (70-99) 140 mg/dl (70-99) Laboratory Data (last 24hrs) Test 08/26/16 21:15 Anion Gap 10.0 mmol/L BUN/Creatinine Ratio 19.2 Blood Urea Nitrogen 23 mg/dl Creatinine 1.20 mg/dl Potassium Level 4.8 mmol/L Sodium Level 130 mmol/L White Blood Count 20.33 K/uL Red Blood Count 4.81 M/uL Hemoglobin 13.6 g/dL Hematocrit 41.7 % Mean Corpuscular Volume 86.7 fL Mean Corpuscular Hemoglobin 28.3 pg Mean Corpuscular Hemoglobin Concent 32.6 g/dl Platelet Count 297 K/uL Mean Platelet Volume 9.7 fL Neutrophils (%) (Auto) 91.1 % Lymphocytes (%) (Auto) 4.4 % Monocytes (%) (Auto) 4.1 % Eosinophils (%) (Auto) 0.0 % Basophils (%) (Auto) 0.1 % Neutrophils # (Auto) 18.49 K/uL Lymphocytes # (Auto) 0.90 K/uL Monocytes # (Auto) 0.83 K/uL Eosinophils # (Auto) 0.01 K/uL Basophils # (Auto) 0.03 K/uL Recent Pertinent Medications Outpatient Anti-diabetic Regimen: * Metformin 500 mg PO daily * A1c = 7.7 % 01/2014 Risk Factors for Insulin Resistance: * Infection * Diet Assessment & Plan ASSESSMENT: * 75 yo M admitted with sepsis secondary to wound, started on broad spectrum antibiotics * BSG overnight in the ED 155 mg/dL and Fasting this AM remains the same * Patient maintained on metformin only at home as outpatient- no recent A1c available to assess glycemic control * Initiate weight-based basal/bolus regimen (stress of 1) and continue to titrate in the AM * ADA & AACE recommend a goal blood sugar range 140-180 mg/dl for the majority of critically ill & non-critically ill patients. However, more stringent targets may be selected in individual cases. Tighten goal range to 100-140 mg/ dL to facilitate optimal wound healing. PLAN FOR INPATIENT GLYCEMIC CONTROL: * Holding outpatient oral diabetes medications * Basal insulin with LANTUS 10 units SQ BID * HOLD if BSG <100 mg/dL * Correctional Insulin with NOVOLOG per scale ACHS or Q6hrs while NPO * Goal Range: Low 100 mg/dL - High 140 mg/dL * Correction Factor: 30 mg/dL/unit * Nutritional / Prandial insulin per carb ratio of 1 unit per 10 grams CHO consumed * New A1c ordered- will review and add to D/C instructions when available * Please note that the plan above was derived based on current level of insulin resistance and hospital stress. These recommendations are appropriate for inpatient admission only. Plan of care upon discharge will need to be reassessed to avoid potential outpatient hypo/hyperglycemia. Thank you.
[2016-08-27] MEDS: DIGOXIN 0.125 MG TAB PO SCH (16:08)
[2016-08-27] MEDS: WARFARIN SOD 5 MG TAB PO SCH (16:10)
--- NOTE | 2016-08-27 17:51 | Medical Consult ---
Consultation Date of Consultation: Aug 27, 2016. 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 He developed to scrotal ulcerations, and recently was [facility] and started on oral doxycycline. He then developed progressively worsening redness and swelling surrounding the area. He came to the emergency department and was felt to have cellulitis and admitted to the hospital for further management. He has been started empirically on daptomycin and aztreonam. CT scan, read by me, shows no obvious abscess formation or gas in the soft tissue. Blood and urine cultures are no growth to date. Has been seen by Urology and has been found to have no evidence of Quoc's gangrene. Past Medical/Surgical History Medical Problems: (1) Acquired buried penis Status: Acute (2) Scrotal infection Status: Acute (3) Sepsis Status: Acute (4) Testicular mass Status: Acute (5) Urinary retention Status: Acute Medical Problems: (1) ATRIAL FIBRILLATION (2) BENIGN HYPERTENSION (3) DIAB RAMIN WO COMPL, TYPE II OR UNSPEC TYPE, NOT UNCNTRLD (4) DIVERTICULOSIS COLON (W/O MENT OF HEMORRHAGE) (5) HEMANGIOMA SKIN (6) HYPERLIPIDEMIA NEC/NOS (7) HYPERTENSION NOS (8) HYPERTROPHY (BENIGN) OF PROSTATE W/O URINARY OBST & OTH LUTS PAST SURGICAL HISTORY: Involves cystoscopy, the embolization as stated above and 2 surgical attempts to remove what was once thought to be hemangioma in this area. Family History Patient reports no known family medical history. Social History Smoking Status: Former Smoker Smokeless Tobacco Use: Unknown Alcohol Use: none Drug Use: none Marital Status: Housing Status: lives with family Occupation Status: retired Allergies Coded Allergies: Metronidazole (Verified Allergy, Severe, see below, 08/26/16) Last discharge summary indicates flagyl was stopped for possible temporal relation to foot drop that developed that admission. Amoxicillin (Verified Allergy, Intermediate, rash, 08/26/16) Current Inpatient Medications Current Inpatient Medications Medications (Trade) Dose Ordered Sig/Jakub Route Start Time Stop Time Status Last Admin Dose Admin Acetaminophen (Tylenol Tab) 650 mg Q4H PRN PO 08/27/16 02:00 09/26/16 01:59 Ondansetron HCl (Zofran Inj) 4 mg Q6H PRN IV 08/27/16 02:00 09/26/16 01:59 Polyethylene (Miralax Powder Packet) 17 gm DAILY PRN PO 08/27/16 02:00 09/26/16 01:59 Glucose (Glucose 40% Gel) 15-30 GRAMS 15 GRAMS... UD PRN PO 08/27/16 02:00 09/26/16 01:59 Glucose (Glucose Chew Tab) 4-8 Tablets 4 Tabl... UD PRN PO 08/27/16 02:00 09/26/16 01:59 Dextrose (Dextrose 50% 50ML Syringe) 25-50ML OF 50% DW IV FOR... UD PRN IV 08/27/16 02:00 09/26/16 01:59 Glucagon (Glucagon Inj) 1 mg UD PRN SQ 08/27/16 02:00 09/26/16 01:59 Insulin Glargine (Lantus Solostar Pen) 10 unit Q12 SC 08/27/16 09:00 09/26/16 08:59 08/27/16 08:51 10 UNIT Insulin Aspart (novoLOG ASPART) SLIDING SCALE If C... ACHS SC 08/27/16 06:30 09/26/16 06:59 08/27/16 17:38 8 UNITS Miscellaneous Information (Consult Glycemic Management Pharmacy) 1 ea DAILY PRN N/A 08/27/16 02:25 09/26/16 02:24 Aspirin (Ecotrin Tab) 81 mg QAM PO 08/27/16 09:00 09/26/16 08:59 08/27/16 08:20 81 MG Digoxin (Lanoxin Tab) 0.125 mg DAILY@1600 PO 08/27/16 16:00 09/26/16 15:59 08/27/16 16:08 0.125 MG Docusate Sodium (coLACE CAP) 100 mg BID PO 08/27/16 09:00 09/26/16 08:59 08/27/16 08:20 100 MG Ferrous Gluconate (Ferrous Gluconate Tab) 324 mg BID PO 08/27/16 09:00 09/26/16 08:59 08/27/16 08:20 324 MG Finasteride (Proscar Tab) 5 mg QAM PO 08/27/16 09:00 09/26/16 08:59 08/27/16 08:20 5 MG Losartan Potassium (coZAAR TAB) 50 mg QAM PO 08/27/16 09:00 09/26/16 08:59 08/27/16 08:19 50 MG Metoprolol Succinate (Toprol Xl Tab) 200 mg QAM PO 08/27/16 09:00 09/26/16 08:59 08/27/16 08:19 200 MG Warfarin Sodium (Coumadin Tab) 2.5 mg MoTh@1600 PO 08/29/16 16:00 09/28/16 15:59 Warfarin Sodium (Coumadin Tab) 5 mg SuTuWeFrSa@1600 PO 08/27/16 16:00 09/26/16 15:59 08/27/16 16:10 5 MG Potassium Chloride 10 meq 10 meq DAILY PO 08/27/16 09:00 09/26/16 08:59 08/27/16 08:21 10 MEQ Aztreonam 2000 mg/ Dextrose 110 ml @ 100 mls/hr Q8H IV 08/27/16 06:00 09/06/16 05:59 08/27/16 14:48 100 MLS/HR Daptomycin/Sodium Chloride (Cubicin IV/Nss 50ml) 68 ml @ 100 mls/hr Q24H IV 08/27/16 22:00 09/04/16 22:41 Morphine Sulfate (MoRPHine SULFATE INJ) 4 mg Q4H PRN IV 08/27/16 05:00 09/10/16 04:59 08/27/16 14:47 4 MG Review of Systems Constitutional: No chills, No fever Eyes: No problem reported ENT: No problem reported Respiratory: No problem reported Cardiovascular: No problem reported Abdomen: No problem reported Genitourinary - Male: + lesions Neurologic: No problem reported Psychiatric: No problem reported Endocrine: No problem reported Hematologic / Lymphatic: No problem reported Integumentary: + new/changing skin lesions Allergic / Immunologic: No problem reported Physical Exam Date Time Temp Pulse Resp B/P Pulse Ox O2 Delivery O2 Flow Rate FiO2 08/27/16 16:12 36.7 84 20 109/64 90 08/27/16 16:08 80 08/27/16 16:00 91 Room Air 08/27/16 12:22 36.9 88 18 115/58 91 Room Air 08/27/16 12:00 93 Room Air 08/27/16 08:00 93 Room Air 08/27/16 07:39 36.9 93 18 118/64 93 08/27/16 04:36 36.7 93 18 103/64 Nasal Cannula 2.0 08/27/16 03:30 101 20 95 08/27/16 03:00 95 15 96 08/27/16 02:30 106 20 129/112 93 Nasal Cannula 2.0 08/27/16 02:00 106 22 92 Nasal Cannula 2.0 08/27/16 01:48 100 22 109/61 98 Nasal Cannula 2.0 08/27/16 00:27 118 08/27/16 00:00 116 20 130/65 96 Nasal Cannula 2.0 08/26/16 23:30 37.3 116 19 128/52 95 Nasal Cannula 3.0 08/26/16 21:32 120 24 134/56 94 Nasal Cannula 3.0 08/26/16 20:32 123 08/26/16 20:00 90 Nasal Cannula 3.0 08/26/16 19:58 37.5 134 14 132/78 88 Room Air General Appearance: WD/WN, no apparent distress Head: normocephalic, atraumatic Eyes: normal inspection, EOMI, sclerae normal ENT: normal ENT inspection, pharynx normal Neck: supple, no adenopathy, thyroid normal Respiratory/Chest: chest non-tender, lungs clear, normal breath sounds, no respiratory distress Cardiovascular: regular rate, rhythm, no gallop, no murmur Abdomen/GI: normal bowel sounds, non tender, soft, no organomegaly Genitourinary - Male: + penile abnormality ( Inverted), + testicular mass, + pertinent finding ( 2 scrotal ulcerations) Back: normal inspection, no CVA tenderness Extremities/Musculoskelatal: no calf tenderness, non-tender Neurologic/Psych: alert, oriented x 3 Skin: normal color, + pertinent finding ( cellulitis of the groin below the umbilicus, scrotal ulcerations) Lymphatic: no adenopathy Laboratory Results Date/Time Source Procedure Growth Status 08/26/16 21:15 Blood Blood Culture Pending Received 08/26/16 21:12 Blood Blood Culture Pending Received 08/27/16 05:45 Urine , Clean Catch Urine Culture Pending Received Last 24 Hours Test 08/26/16 20:38 08/26/16 21:15 08/26/16 21:23 08/26/16 21:29 Creatine Kinase MB Ratio 1.2 White Blood Count 20.33 K/uL Red Blood Count 4.81 M/uL Hemoglobin 13.6 g/dL Hematocrit 41.7 % Mean Corpuscular Volume 86.7 fL Mean Corpuscular Hemoglobin 28.3 pg Mean Corpuscular Hemoglobin Concent 32.6 g/dl Platelet Count 297 K/uL Mean Platelet Volume 9.7 fL Neutrophils (%) (Auto) 91.1 % Lymphocytes (%) (Auto) 4.4 % Monocytes (%) (Auto) 4.1 % Eosinophils (%) (Auto) 0.0 % Basophils (%) (Auto) 0.1 % Neutrophils # (Auto) 18.49 K/uL Lymphocytes # (Auto) 0.90 K/uL Monocytes # (Auto) 0.83 K/uL Eosinophils # (Auto) 0.01 K/uL Basophils # (Auto) 0.03 K/uL RDW Standard Deviation 50.6 fL RDW Coefficient of Variation 15.9 % Immature Granulocyte % (Auto) 0.3 % Immature Granulocyte # (Auto) 0.07 K/uL Prothrombin Time 31.6 SECONDS Prothromb Time International Ratio 2.8 Activated Partial Thromboplast Time 42.7 SECONDS Partial Thromboplastin Ratio 1.6 Sodium Level 130 mmol/L Potassium Level 4.8 mmol/L Chloride Level 99 mmol/L Carbon Dioxide Level 21 mmol/L Anion Gap 10.0 mmol/L Blood Urea Nitrogen 23 mg/dl Creatinine 1.20 mg/dl Est Creatinine Clear Calc Drug Dose 80.1 ml/min Estimated GFR () 68.1 Estimated GFR (Non- 58.8 BUN/Creatinine Ratio 19.2 Random Glucose 155 mg/dl Osmolality 289 mOsm/kg Calcium Level 8.8 mg/dl Total Bilirubin 0.5 mg/dl Direct Bilirubin 0.1 mg/dl Aspartate Amino Transf (AST/SGOT) 17 U/L Alanine Aminotransferase (ALT/SGPT) 13 U/L Alkaline Phosphatase 60 U/L Total Creatine Kinase 139 U/L Creatine Kinase MB 1.7 ng/ml Total Protein 8.1 gm/dl Albumin 3.2 gm/dl Lipase 162 U/L Bedside Lactic Acid Venous 3.17 mmol/L Bedside Troponin I 0.000 ng/ml Test 08/27/16 03:06 08/27/16 05:45 08/27/16 07:06 08/27/16 08:38 Lactic Acid Level 1.9 mmol/L 1.8 mmol/L Urine Color YELLOW Urine Appearance CLEAR Urine pH 5.0 Urine Specific [place] 1.009 Urine Protein 1+ Urine Glucose (UA) NEG Urine Ketones NEG Urine Occult Blood 3+ Urine Nitrite NEG Urine Bilirubin NEG Urine Urobilinogen NEG Urine Leukocyte Esterase SMALL Urine WBC (Auto) 10-30 /hpf Urine RBC (Auto) 10-30 /hpf Urine Hyaline Casts (Auto) 0 /lpf Urine Epithelial Cells (Auto) 10-20 /lpf Urine Bacteria (Auto) NEG Urine Random Creatinine 52.0 mg/dl Urine Random Sodium 57 mEq/L Prothrombin Time 25.6 SECONDS Prothromb Time International Ratio 2.3 Bedside Glucose 155 mg/dl Test 08/27/16 11:49 Bedside Glucose 140 mg/dl [~ rep ct add3]] CT PELVIS NO IV/ORAL CONT (CT) CT DOSE: 1840.92 mGy.cm CLINICAL HISTORY: Inguinal infection. Evaluate for Quoc's gangrene TECHNIQUE: Helical images were acquired without intravenous contrast. COMPARISON STUDY: 08/26/2016. FINDINGS: There is a 3 cm right renal cyst. The distal abdominal aorta is nondilated. There is no pathologic bowel dilatation. There is artifact from a right hip arthroplasty. There are mildly prominent left inguinal lymph nodes, likely reactive. There is no air within the soft tissues. There are no fluid collections to indicate an abscess. There is a 25 mm soft tissue lesion within the upper medial right thigh, likely inflammatory. There is scrotal wall thickening. There is edema within the lower anterior abdominal wall in the region of the patient's pannus. There are degenerative changes present within the lower lumbar spine with evidence of spinal stenosis. There are postsurgical changes of a total right hip arthroplasty. IMPRESSION: 1. Skin thickening involving the scrotum and anterior pannus 2. No fluid collections to indicate an abscess 3. No air within the soft tissues 4. 25 mm soft tissue lesion within the upper medial right thigh, likely inflammatory Assessment & Plan 75-year-old male with diabetes with vascular abnormalities of the scrotum, now with ulcerations and secondary cellulitis involving the scrotum and groin. Given allergy to amoxicillin, daptomycin and aztreonam appropriate for now pending further culture results. Length of IV antibiotics will depend on cultures and clinical response. Will follow.
--- NOTE | 2016-08-27 21:36 | Progress Note ---
Medicine Progress Note Date & Time of Visit: Aug 27, 2016 at 21:27. Subjective Patient seen and examined. Had recent dressing change, so requests not to have wound examined at this time. Is otherwise without complaints. Objective Last 8 Hrs Date Time Temp Pulse Resp B/P Pulse Ox O2 Delivery O2 Flow Rate FiO2 08/27/16 20:06 36.6 96 20 108/55 90 Room Air 08/27/16 20:05 Room Air 08/27/16 16:12 36.7 84 20 109/64 90 08/27/16 16:08 80 08/27/16 16:00 91 Room Air Physical Exam: General-awake; alert; NAD Eyes-EOMI; no scleral icterus Neck-no stridor; trachea midline Lungs-CTA bilaterally anteriorly Heart-RRR; no m/r/g Abdomen-soft; NT; obese; nBS Extremities-chronic venous stasis changes Neuro-no gross focal deficits Laboratory Results: Last 24 Hours Test 08/26/16 21:29 08/27/16 03:06 08/27/16 05:45 08/27/16 07:06 Bedside Troponin I 0.000 ng/ml Lactic Acid Level 1.9 mmol/L 1.8 mmol/L Urine Color YELLOW Urine Appearance CLEAR Urine pH 5.0 Urine Specific [place] 1.009 Urine Protein 1+ Urine Glucose (UA) NEG Urine Ketones NEG Urine Occult Blood 3+ Urine Nitrite NEG Urine Bilirubin NEG Urine Urobilinogen NEG Urine Leukocyte Esterase SMALL Urine WBC (Auto) 10-30 /hpf Urine RBC (Auto) 10-30 /hpf Urine Hyaline Casts (Auto) 0 /lpf Urine Epithelial Cells (Auto) 10-20 /lpf Urine Bacteria (Auto) NEG Urine Random Creatinine 52.0 mg/dl Urine Random Sodium 57 mEq/L Prothrombin Time 25.6 SECONDS Prothromb Time International Ratio 2.3 Test 08/27/16 08:38 08/27/16 11:49 08/27/16 20:24 Bedside Glucose 155 mg/dl 140 mg/dl 151 mg/dl Date/Time Source Procedure Growth Status 08/27/16 05:45 Urine , Clean Catch Urine Culture Pending Received Assessment & Plan Sepsis - likely related to scrotal wound - wound care consulted - received IVF resuscitation - lactate normalized - continue daptomycin and aztreonam - ID consulted - Urology consulted - no surgical intervention needed at this time - blood cultures pending - urine culture pending A fib - continue digoxin, metoprolol - continue warfarin HTN - hold losartan, furosemide - continue metoprolol BPH - continue finasteride Type 2 diabetes - continue insulin - glycemic pharmacy consulted - hold metformin DVT prophylaxis with warfarin Consultants: Urology Infectious disease Procedures: CT a/p 1. No evidence of bowel obstruction. No evidence of free air 2. Surgically absent gallbladder and appendix 3. Diverticulosis. No evidence of acute diverticulitis 4. Anterior bladder diverticulum with mild perivesical 5. Mildly prominent left inguinal lymph nodes, likely reactive stranding CT pelvis 1. Skin thickening involving the scrotum and anterior pannus 2. No fluid collections to indicate an abscess 3. No air within the soft tissues 4. 25 mm soft tissue lesion within the upper medial right thigh, likely Current Inpatient Medications: Current Inpatient Medications Medications (Trade) Dose Ordered Sig/Jakub Route Start Time Stop Time Status Last Admin Dose Admin Acetaminophen (Tylenol Tab) 650 mg Q4H PRN PO 08/27/16 02:00 09/26/16 01:59 Ondansetron HCl (Zofran Inj) 4 mg Q6H PRN IV 08/27/16 02:00 09/26/16 01:59 Polyethylene (Miralax Powder Packet) 17 gm DAILY PRN PO 08/27/16 02:00 09/26/16 01:59 Glucose (Glucose 40% Gel) 15-30 GRAMS 15 GRAMS... UD PRN PO 08/27/16 02:00 09/26/16 01:59 Glucose (Glucose Chew Tab) 4-8 Tablets 4 Tabl... UD PRN PO 08/27/16 02:00 09/26/16 01:59 Dextrose (Dextrose 50% 50ML Syringe) 25-50ML OF 50% DW IV FOR... UD PRN IV 08/27/16 02:00 09/26/16 01:59 Glucagon (Glucagon Inj) 1 mg UD PRN SQ 08/27/16 02:00 09/26/16 01:59 Insulin Glargine (Lantus Solostar Pen) 10 unit Q12 SC 08/27/16 09:00 09/26/16 08:59 08/27/16 08:51 10 UNIT Insulin Aspart (novoLOG ASPART) SLIDING SCALE If C... ACHS SC 08/27/16 06:30 09/26/16 06:59 08/27/16 17:38 8 UNITS Miscellaneous Information (Consult Glycemic Management Pharmacy) 1 ea DAILY PRN N/A 08/27/16 02:25 09/26/16 02:24 Aspirin (Ecotrin Tab) 81 mg QAM PO 08/27/16 09:00 09/26/16 08:59 08/27/16 08:20 81 MG Digoxin (Lanoxin Tab) 0.125 mg DAILY@1600 PO 08/27/16 16:00 09/26/16 15:59 08/27/16 16:08 0.125 MG Docusate Sodium (coLACE CAP) 100 mg BID PO 08/27/16 09:00 09/26/16 08:59 08/27/16 08:20 100 MG Ferrous Gluconate (Ferrous Gluconate Tab) 324 mg BID PO 08/27/16 09:00 09/26/16 08:59 08/27/16 08:20 324 MG Finasteride (Proscar Tab) 5 mg QAM PO 08/27/16 09:00 09/26/16 08:59 08/27/16 08:20 5 MG Losartan Potassium (coZAAR TAB) 50 mg QAM PO 08/27/16 09:00 09/26/16 08:59 08/27/16 08:19 50 MG Metoprolol Succinate (Toprol Xl Tab) 200 mg QAM PO 08/27/16 09:00 09/26/16 08:59 08/27/16 08:19 200 MG Warfarin Sodium (Coumadin Tab) 2.5 mg MoTh@1600 PO 08/29/16 16:00 09/28/16 15:59 Warfarin Sodium (Coumadin Tab) 5 mg SuTuWeFrSa@1600 PO 08/27/16 16:00 09/26/16 15:59 08/27/16 16:10 5 MG Potassium Chloride 10 meq 10 meq DAILY PO 08/27/16 09:00 09/26/16 08:59 08/27/16 08:21 10 MEQ Aztreonam 2000 mg/ Dextrose 110 ml @ 100 mls/hr Q8H IV 08/27/16 06:00 09/06/16 05:59 08/27/16 14:48 100 MLS/HR Daptomycin/Sodium Chloride (Cubicin IV/Nss 50ml) 68 ml @ 100 mls/hr Q24H IV 08/27/16 22:00 09/04/16 22:41 Morphine Sulfate (MoRPHine SULFATE INJ) 4 mg Q4H PRN IV 08/27/16 05:00 09/10/16 04:59 08/27/16 14:47 4 MG
[2016-08-27] MEDS: DAPTOmycin IV 900 MG in SODIUM CHLORIDE 0.9% 50ML 50 ML IV SCH (21:50)
[2016-08-28] VITALS (8 sets, daily range): BP systolic 117–169; BP diastolic 56–75; PULSE 76–90; TEMP 36.3–36.8; O2SAT 92–96
[2016-08-28] MEDS: MoRPHine SULFATE 4 MG/ML 1 ML CARP\\VIAL IV PRN ×3 (02:32→19:40)
[2016-08-28] MEDS: AZTREONAM IV 2,000 MG in DEXTROSE 5% 100ML 100 ML IV SCH ×3 (06:00→21:09)
[2016-08-28] MEDS: INSULIN ASPART 100 UNITS/ML 3 ML PEN SC SCH ×4 (06:30→21:11)
[2016-08-28 07:16] LABS: BASO % 0.4 %; BASO ABS # 0.04 K/uL (0-0.2); COMPLETE YES; EOS % 4.5 %; HEMATOCRIT 38.2 % (42-52); IG% 0.3 %; LYMPH % 15.6 %; MEAN CELL VOLUME 89.7 fL (80-100); MEAN CORPUSCULAR HEMOGLOBIN 28.6 pg (25-34); MEAN CORPUSCULAR HGB CONC 31.9 g/dl (32-36); MEAN PLATELET VOLUME 9.7 fL (7.4-10.4); MONO % 7.8 %; NEUT % 71.4 %; PLATELET COUNT 232 K/uL (130-400); RED BLOOD COUNT 4.26 M/uL (4.7-6.1); WHITE BLOOD COUNT 9.64 K/uL (4.8-10.8)
[2016-08-28 07:22] LABS: INR 2.2 (0.9-1.1); PROTHROMBIN TIME (PATIENT) 24.3 SECONDS (9.0-12.0)
[2016-08-28 07:43] LABS: BUN/CREATININE RATIO 23.8 (10-20); CALCIUM 8.3 mg/dl (8.5-10.1); CREATININE 0.96 mg/dl (0.60-1.40); POTASSIUM 4.1 mmol/L (3.5-5.1)
[2016-08-28] MEDS: ASPIRIN 81 MG ECTAB PO SCH (08:13)
[2016-08-28] MEDS: DOCUSATE SODIUM 100 MG CAP PO SCH ×2 (08:13→19:40)
[2016-08-28] MEDS: FERROUS GLUCONATE 324 MG TAB PO SCH ×2 (08:13→19:40)
[2016-08-28] MEDS: POTASSIUM CHLORIDE 10 MEQ TABCR PO SCH (08:13)
[2016-08-28] MEDS: FINASTERIDE 5 MG TAB PO SCH (08:14)
[2016-08-28] MEDS: INSULIN GLARGINE SOLOSTAR 100 UNITS/ML 3 ML PEN SC SCH ×2 (08:24→21:12)
[2016-08-28] MEDS: METOPROLOL SUCC 50MG EXT REL TAB PO SCH (09:11)
[2016-08-28] MEDS: WARFARIN SOD 5 MG TAB PO SCH (16:22)
[2016-08-28] MEDS: DIGOXIN 0.125 MG TAB PO SCH (16:22)
--- NOTE | 2016-08-28 16:34 | Progress Note ---
Subjective Date of Service: Aug 28, 2016. Subjective Pt evaluation today including: conversation w/ patient Voiding: voiding difficulty Pt states that he is feeling much better today. Has some difficulty voiding due to anatomy, but this is his baseline. Pain in lower abdomen has improved compared to yesterday. WBC improving. Blood cx pending. Urine cx shows low colony counts He has an appt with Amanda CLEMENT in the next 1-2 weeks. Problem List Medical Problems: (1) Acquired buried penis Status: Acute (2) Scrotal infection Status: Acute (3) Sepsis Status: Acute (4) Testicular mass Status: Acute (5) Urinary retention Status: Acute Review of Systems Constitutional: No chills, No fever Respiratory: No shortness of breath Cardiac: No chest pain Abdomen: + pain Objective Vital Signs Date Time Temp Pulse Resp B/P Pulse Ox O2 Delivery O2 Flow Rate FiO2 08/28/16 16:22 73 08/28/16 15:48 36.6 76 18 121/56 92 Room Air 08/28/16 13:25 79 94 08/28/16 11:46 36.3 79 18 145/74 93 Room Air 08/28/16 08:00 96 Room Air 2.0 08/28/16 07:45 36.8 90 16 169/75 96 Room Air 08/28/16 04:05 Room Air 08/28/16 00:05 Room Air 08/27/16 20:06 36.6 96 20 108/55 90 Room Air 08/27/16 20:05 Room Air Physical Exam General Appearance: WD/WN Neck: supple Respiratory/Chest: chest non-tender Cardiovascular: regular rate, rhythm Neurologic/Psychiatric: normal mood/affect Comments: Obese abdomen. No crepitus in lower abdomen. Penis inverted (buried). Vascular congestion in scrotum. Laboratory Results Last 24 Hours Test 08/27/16 20:24 08/28/16 06:50 08/28/16 07:31 08/28/16 11:38 Bedside Glucose 151 mg/dl 134 mg/dl 134 mg/dl White Blood Count 9.64 K/uL Red Blood Count 4.26 M/uL Hemoglobin 12.2 g/dL Hematocrit 38.2 % Mean Corpuscular Volume 89.7 fL Mean Corpuscular Hemoglobin 28.6 pg Mean Corpuscular Hemoglobin Concent 31.9 g/dl Platelet Count 232 K/uL Mean Platelet Volume 9.7 fL Neutrophils (%) (Auto) 71.4 % Lymphocytes (%) (Auto) 15.6 % Monocytes (%) (Auto) 7.8 % Eosinophils (%) (Auto) 4.5 % Basophils (%) (Auto) 0.4 % Neutrophils # (Auto) 6.89 K/uL Lymphocytes # (Auto) 1.50 K/uL Monocytes # (Auto) 0.75 K/uL Eosinophils # (Auto) 0.43 K/uL Basophils # (Auto) 0.04 K/uL RDW Standard Deviation 53.7 fL RDW Coefficient of Variation 16.4 % Immature Granulocyte % (Auto) 0.3 % Immature Granulocyte # (Auto) 0.03 K/uL Prothrombin Time 24.3 SECONDS Prothromb Time International Ratio 2.2 Sodium Level 132 mmol/L Potassium Level 4.1 mmol/L Chloride Level 102 mmol/L Carbon Dioxide Level 24 mmol/L Anion Gap 6.0 mmol/L Blood Urea Nitrogen 23 mg/dl Creatinine 0.96 mg/dl Est Creatinine Clear Calc Drug Dose 100.1 ml/min Estimated GFR () 89.3 Estimated GFR (Non- 77.0 BUN/Creatinine Ratio 23.8 Random Glucose 127 mg/dl Calcium Level 8.3 mg/dl Assessment and Plan (1) Scrotal infection (2) Sepsis Pt appears to be improving clinically. WBC improved. Pain less. Voiding with less difficulty. Pt feels strong enough for possible discharge soon. Will defer to ID for final recommendation on abx coverage as an outpatient. Pt will f/u with Amanda for further mgmt of vascular disease in scrotum.
--- NOTE | 2016-08-28 17:23 | Progress Note ---
Medicine Progress Note Date & Time of Visit: Aug 28, 2016 at 17:21. Subjective Patient feeling improved today. Anticipating discharge. present at bedside and updated. Objective Last 8 Hrs Date Time Temp Pulse Resp B/P Pulse Ox O2 Delivery O2 Flow Rate FiO2 08/28/16 16:22 73 08/28/16 16:00 96 Room Air 2.0 08/28/16 15:48 36.6 76 18 121/56 92 Room Air 08/28/16 14:00 96 Room Air 2.0 08/28/16 13:25 79 94 08/28/16 11:46 36.3 79 18 145/74 93 Room Air Physical Exam: General-awake; alert; NAD Eyes-EOMI; no scleral icterus Neck-no stridor; trachea midline Lungs-CTA bilaterally; no wheezes/crackles Heart-RRR; no m/r/g Abdomen-soft; NT; obese; nBS -large mass at the back of the scrotum with denuded areas Extremities-chronic venous stasis changes Neuro-no gross focal deficits Laboratory Results: Last 24 Hours Test 08/27/16 20:24 08/28/16 06:50 08/28/16 07:31 08/28/16 11:38 Bedside Glucose 151 mg/dl 134 mg/dl 134 mg/dl White Blood Count 9.64 K/uL Red Blood Count 4.26 M/uL Hemoglobin 12.2 g/dL Hematocrit 38.2 % Mean Corpuscular Volume 89.7 fL Mean Corpuscular Hemoglobin 28.6 pg Mean Corpuscular Hemoglobin Concent 31.9 g/dl Platelet Count 232 K/uL Mean Platelet Volume 9.7 fL Neutrophils (%) (Auto) 71.4 % Lymphocytes (%) (Auto) 15.6 % Monocytes (%) (Auto) 7.8 % Eosinophils (%) (Auto) 4.5 % Basophils (%) (Auto) 0.4 % Neutrophils # (Auto) 6.89 K/uL Lymphocytes # (Auto) 1.50 K/uL Monocytes # (Auto) 0.75 K/uL Eosinophils # (Auto) 0.43 K/uL Basophils # (Auto) 0.04 K/uL RDW Standard Deviation 53.7 fL RDW Coefficient of Variation 16.4 % Immature Granulocyte % (Auto) 0.3 % Immature Granulocyte # (Auto) 0.03 K/uL Prothrombin Time 24.3 SECONDS Prothromb Time International Ratio 2.2 Sodium Level 132 mmol/L Potassium Level 4.1 mmol/L Chloride Level 102 mmol/L Carbon Dioxide Level 24 mmol/L Anion Gap 6.0 mmol/L Blood Urea Nitrogen 23 mg/dl Creatinine 0.96 mg/dl Est Creatinine Clear Calc Drug Dose 100.1 ml/min Estimated GFR () 89.3 Estimated GFR (Non- 77.0 BUN/Creatinine Ratio 23.8 Random Glucose 127 mg/dl Calcium Level 8.3 mg/dl Test 08/28/16 16:15 Bedside Glucose 158 mg/dl Assessment & Plan Sepsis - likely related to scrotal wound - wound care consulted - received IVF resuscitation - lactate normalized - continue daptomycin and aztreonam - ID consulted - Urology consulted - no surgical intervention needed at this time - blood cultures ngtd - urine culture negative A fib - continue digoxin, metoprolol - continue warfarin HTN - hold losartan, furosemide - continue metoprolol BPH - continue finasteride Type 2 diabetes - continue insulin - glycemic pharmacy consulted - hold metformin DVT prophylaxis with warfarin Consultants: Urology Infectious disease Procedures: CT a/p 1. No evidence of bowel obstruction. No evidence of free air 2. Surgically absent gallbladder and appendix 3. Diverticulosis. No evidence of acute diverticulitis 4. Anterior bladder diverticulum with mild perivesical 5. Mildly prominent left inguinal lymph nodes, likely reactive stranding CT pelvis 1. Skin thickening involving the scrotum and anterior pannus 2. No fluid collections to indicate an abscess 3. No air within the soft tissues 4. 25 mm soft tissue lesion within the upper medial right thigh, likely Current Inpatient Medications: Current Inpatient Medications Medications (Trade) Dose Ordered Sig/Jakub Route Start Time Stop Time Status Last Admin Dose Admin Acetaminophen (Tylenol Tab) 650 mg Q4H PRN PO 08/27/16 02:00 09/26/16 01:59 Ondansetron HCl (Zofran Inj) 4 mg Q6H PRN IV 08/27/16 02:00 09/26/16 01:59 Polyethylene (Miralax Powder Packet) 17 gm DAILY PRN PO 08/27/16 02:00 09/26/16 01:59 Glucose (Glucose 40% Gel) 15-30 GRAMS 15 GRAMS... UD PRN PO 08/27/16 02:00 09/26/16 01:59 Glucose (Glucose Chew Tab) 4-8 Tablets 4 Tabl... UD PRN PO 08/27/16 02:00 09/26/16 01:59 Dextrose (Dextrose 50% 50ML Syringe) 25-50ML OF 50% DW IV FOR... UD PRN IV 08/27/16 02:00 09/26/16 01:59 Glucagon (Glucagon Inj) 1 mg UD PRN SQ 08/27/16 02:00 09/26/16 01:59 Insulin Glargine (Lantus Solostar Pen) 10 unit Q12 SC 08/27/16 09:00 09/26/16 08:59 08/28/16 08:24 10 UNIT Insulin Aspart (novoLOG ASPART) SLIDING SCALE If C... ACHS SC 08/27/16 06:30 09/26/16 06:59 08/28/16 12:33 4 UNITS Miscellaneous Information (Consult Glycemic Management Pharmacy) 1 ea DAILY PRN N/A 08/27/16 02:25 09/26/16 02:24 Aspirin (Ecotrin Tab) 81 mg QAM PO 08/27/16 09:00 09/26/16 08:59 08/28/16 08:13 81 MG Digoxin (Lanoxin Tab) 0.125 mg DAILY@1600 PO 08/27/16 16:00 09/26/16 15:59 08/28/16 16:22 0.125 MG Docusate Sodium (coLACE CAP) 100 mg BID PO 08/27/16 09:00 09/26/16 08:59 08/28/16 08:13 100 MG Ferrous Gluconate (Ferrous Gluconate Tab) 324 mg BID PO 08/27/16 09:00 09/26/16 08:59 08/28/16 08:13 324 MG Finasteride (Proscar Tab) 5 mg QAM PO 08/27/16 09:00 09/26/16 08:59 08/28/16 08:14 5 MG Losartan Potassium (coZAAR TAB) 50 mg QAM PO 08/27/16 09:00 09/26/16 08:59 Future Hold 08/27/16 08:19 50 MG Metoprolol Succinate (Toprol Xl Tab) 200 mg QAM PO 08/27/16 09:00 09/26/16 08:59 Future hold 08/28/16 09:11 200 MG Warfarin Sodium (Coumadin Tab) 2.5 mg MoTh@1600 PO 08/29/16 16:00 09/28/16 15:59 Warfarin Sodium (Coumadin Tab) 5 mg SuTuWeFrSa@1600 PO 08/27/16 16:00 09/26/16 15:59 08/28/16 16:22 5 MG Potassium Chloride 10 meq 10 meq DAILY PO 08/27/16 09:00 09/26/16 08:59 08/28/16 08:13 10 MEQ Aztreonam 2000 mg/ Dextrose 110 ml @ 100 mls/hr Q8H IV 08/27/16 06:00 09/06/16 05:59 08/28/16 14:54 100 MLS/HR Daptomycin/Sodium Chloride (Cubicin IV/Nss 50ml) 68 ml @ 100 mls/hr Q24H IV 08/27/16 22:00 09/04/16 22:41 08/27/16 21:50 100 MLS/HR Morphine Sulfate (MoRPHine SULFATE INJ) 4 mg Q4H PRN IV 08/27/16 05:00 09/10/16 04:59 08/28/16 12:47 4 MG
[2016-08-28] MEDS: DAPTOmycin IV 900 MG in SODIUM CHLORIDE 0.9% 50ML 50 ML IV SCH (21:09)
[2016-08-29] MEDS: MoRPHine SULFATE 4 MG/ML 1 ML CARP\\VIAL IV PRN ×2 (03:10→12:19)
[2016-08-29] MEDS: AZTREONAM IV 2,000 MG in DEXTROSE 5% 100ML 100 ML IV SCH ×2 (05:47→14:05)
[2016-08-29 06:31] LABS: HEMATOCRIT 37.9 % (42-52); MEAN CELL VOLUME 89.8 fL (80-100); MEAN CORPUSCULAR HEMOGLOBIN 28.4 pg (25-34); MEAN CORPUSCULAR HGB CONC 31.7 g/dl (32-36); MEAN PLATELET VOLUME 9.6 fL (7.4-10.4); PLATELET COUNT 247 K/uL (130-400); RED BLOOD COUNT 4.22 M/uL (4.7-6.1); WHITE BLOOD COUNT 9.37 K/uL (4.8-10.8)
[2016-08-29 06:44] LABS: INR 2.2 (0.9-1.1); PROTHROMBIN TIME (PATIENT) 24.8 SECONDS (9.0-12.0)
[2016-08-29 06:51] LABS: ESTIMATED AVERAGE GLUCOSE 143 mg/dl; HA1C FLAG Normal (Normal)
[2016-08-29 07:01] LABS: BUN/CREATININE RATIO 22.7 (10-20); CREATININE 0.93 mg/dl (0.60-1.40); POTASSIUM 4.3 mmol/L (3.5-5.1)
[2016-08-29 07:28] VITALS: BP 144/71; PULSE 83; TEMP 36.6; O2SAT 94
[2016-08-29] MEDS: DOCUSATE SODIUM 100 MG CAP PO SCH (08:12)
[2016-08-29] MEDS: ASPIRIN 81 MG ECTAB PO SCH (08:12)
[2016-08-29] MEDS: FINASTERIDE 5 MG TAB PO SCH (08:12)
[2016-08-29] MEDS: FERROUS GLUCONATE 324 MG TAB PO SCH (08:12)
[2016-08-29] MEDS: POTASSIUM CHLORIDE 10 MEQ TABCR PO SCH (08:13)
[2016-08-29] MEDS: METOPROLOL SUCC 50MG EXT REL TAB PO SCH (08:13)
[2016-08-29] MEDS: INSULIN ASPART 100 UNITS/ML 3 ML PEN SC SCH ×2 (08:17→12:31)
[2016-08-29] MEDS: INSULIN GLARGINE SOLOSTAR 100 UNITS/ML 3 ML PEN SC SCH (08:18)
[2016-08-29] MEDS ORDERED: CEPHALEXIN MONOHYDRATE 500 MG CAP PO ONE (15:50)
[2016-08-29] MEDS: DIGOXIN 0.125 MG TAB PO SCH (15:53)
[2016-08-29 16:00] VITALS: O2SAT 94
[2016-08-29] MEDS ORDERED: WARFARIN SOD 2.5 MG TAB PO SCH (16:00)
[2016-08-29] MEDS ORDERED: CEPH500C2 PO (16:44)
[2016-08-29 16:48] VITALS: BP 144/71; PULSE 76; TEMP 36.6; O2SAT 94
--- NOTE | 2016-08-29 16:48 | Discharge Instructions ---
Discharge Instructions Admission Reason for Admission: Sepsis Discharge Discharge Diagnosis / Problem: Scrotal infection Discharge Goals Goal(s): Improve disease control Activity Recommendations Activity Limitations: resume your previous activity . Instructions / Follow-Up Instructions / Follow-Up Please follow up with the Wound Care center Dr. Treadwell and Dr. Stewart on September 06 at 10:40am. Please follow up with Family Medicine Dr. Szymanski on September 07 at 11:00am. Keflex is the new antibiotic. Please start taking twice a day tomorrow, 08/30/16 and take until instructed not to do so. Current Hospital Diet Patient's current hospital diet: AHA Diet (Heart Healthy), Diabetes Type 2 Diet Discharge Diet Recommended Diet: AHA Diet (Heart Healthy), Diabetes Type 2 Diet Pending Studies Studies pending at discharge: no Laboratory Results Hemoglobin A1c Test 08/28/16 06:50 Range/Units Estimated Average Glucose 143 mg/dl Hemoglobin A1c 6.6 H 4.5-5.6 % Medical Emergencies . Who to Call and When: Medical Emergencies: If at any time you feel your situation is an emergency, please call 911 immediately. . Non-Emergent Contact Non-Emergency issues call your: Primary Care Provider, Specialist (Wound care center) . . "Provider Documentation" section prepared by Ophelia Carrillo. VTE Core Measure Inpt VTE Proph given/why not?: Warfarin (Coumadin)
--- NOTE | 2016-08-29 17:51 | Infectious Disease Progress Nt ---
Progress Note Date of Service Aug 29, 2016. Subjective Pt evaluation today including: conversation w/ patient, physical exam, chart review, lab review, review of studies, conversation w/ data management consultant, review of inpatient medication list Patient offers no new complaints today. Remains afebrile. Has been tolerating antibiotics without apparent difficulty. Cultures remain negative to date. All Other Systems: Reviewed and Negative Medications Current Inpatient Medications Medications (Trade) Dose Ordered Sig/Jakub Route Start Time Stop Time Status Last Admin Dose Admin Acetaminophen (Tylenol Tab) 650 mg Q4H PRN PO 08/27/16 02:00 09/26/16 01:59 Ondansetron HCl (Zofran Inj) 4 mg Q6H PRN IV 08/27/16 02:00 09/26/16 01:59 Polyethylene (Miralax Powder Packet) 17 gm DAILY PRN PO 08/27/16 02:00 09/26/16 01:59 Glucose (Glucose 40% Gel) 15-30 GRAMS 15 GRAMS... UD PRN PO 08/27/16 02:00 09/26/16 01:59 Glucose (Glucose Chew Tab) 4-8 Tablets 4 Tabl... UD PRN PO 08/27/16 02:00 09/26/16 01:59 Dextrose (Dextrose 50% 50ML Syringe) 25-50ML OF 50% DW IV FOR... UD PRN IV 08/27/16 02:00 09/26/16 01:59 Glucagon (Glucagon Inj) 1 mg UD PRN SQ 08/27/16 02:00 09/26/16 01:59 Insulin Glargine (Lantus Solostar Pen) 10 unit Q12 SC 08/27/16 09:00 09/26/16 08:59 08/29/16 08:18 10 UNIT Insulin Aspart (novoLOG ASPART) SLIDING SCALE If C... ACHS SC 08/27/16 06:30 09/26/16 06:59 08/29/16 12:31 6 UNITS Aspirin (Ecotrin Tab) 81 mg QAM PO 08/27/16 09:00 09/26/16 08:59 08/29/16 08:12 81 MG Digoxin (Lanoxin Tab) 0.125 mg DAILY@1600 PO 08/27/16 16:00 09/26/16 15:59 08/29/16 15:53 0.125 MG Docusate Sodium (coLACE CAP) 100 mg BID PO 08/27/16 09:00 09/26/16 08:59 08/29/16 08:12 100 MG Ferrous Gluconate (Ferrous Gluconate Tab) 324 mg BID PO 08/27/16 09:00 09/26/16 08:59 08/29/16 08:12 324 MG Finasteride (Proscar Tab) 5 mg QAM PO 08/27/16 09:00 09/26/16 08:59 08/29/16 08:12 5 MG Losartan Potassium (coZAAR TAB) 50 mg QAM PO 08/27/16 09:00 09/26/16 08:59 Future Hold 08/27/16 08:19 50 MG Metoprolol Succinate (Toprol Xl Tab) 200 mg QAM PO 08/27/16 09:00 09/26/16 08:59 Future hold 08/29/16 08:13 200 MG Warfarin Sodium (Coumadin Tab) 2.5 mg MoTh@1600 PO 08/29/16 16:00 09/28/16 15:59 08/29/16 15:54 2.5 MG Warfarin Sodium (Coumadin Tab) 5 mg SuTuWeFrSa@1600 PO 08/27/16 16:00 09/26/16 15:59 08/28/16 16:22 5 MG Potassium Chloride 10 meq 10 meq DAILY PO 08/27/16 09:00 09/26/16 08:59 08/29/16 08:13 10 MEQ Aztreonam 2000 mg/ Dextrose 110 ml @ 100 mls/hr Q8H IV 08/27/16 06:00 09/06/16 05:59 08/29/16 14:05 100 MLS/HR Daptomycin/Sodium Chloride (Cubicin IV/Nss 50ml) 68 ml @ 100 mls/hr Q24H IV 08/27/16 22:00 09/04/16 22:41 08/28/16 21:09 100 MLS/HR Morphine Sulfate (MoRPHine SULFATE INJ) 4 mg Q4H PRN IV 08/27/16 05:00 09/10/16 04:59 08/29/16 12:19 4 MG Objective Vital Signs Date Time Temp Pulse Resp B/P Pulse Ox O2 Delivery O2 Flow Rate FiO2 08/29/16 16:48 36.6 76 16 94 Room Air 08/29/16 16:00 94 Room Air 08/29/16 15:53 76 08/29/16 08:20 Room Air 08/29/16 07:28 36.6 83 16 144/71 94 Room Air 08/29/16 00:01 Room Air 08/28/16 23:29 36.8 88 20 143/68 95 Room Air 08/28/16 20:00 Room Air Physical Exam General Appearance: WD/WN, no apparent distress Eyes: normal inspection, EOMI, sclerae normal ENT: normal ENT inspection, pharynx normal Neck: supple, no adenopathy, trachea midline Respiratory/Chest: chest non-tender, lungs clear, normal breath sounds, no respiratory distress Cardiovascular: regular rate, rhythm, no gallop, no murmur Abdomen: normal bowel sounds, non tender, soft, no organomegaly Extremities: non-tender, no calf tenderness Neurologic/Psychiatric: alert, oriented x 3 Skin: normal color, + pertinent finding (Decrease in scrotal and groin erythema ) Lymphatic: no adenopathy Laboratory Results Last 24 Hours Test 08/28/16 20:32 08/29/16 06:00 08/29/16 07:20 08/29/16 11:35 Bedside Glucose 114 mg/dl 118 mg/dl 109 mg/dl White Blood Count 9.37 K/uL Red Blood Count 4.22 M/uL Hemoglobin 12.0 g/dL Hematocrit 37.9 % Mean Corpuscular Volume 89.8 fL Mean Corpuscular Hemoglobin 28.4 pg Mean Corpuscular Hemoglobin Concent 31.7 g/dl RDW Standard Deviation 53.8 fL RDW Coefficient of Variation 16.3 % Platelet Count 247 K/uL Mean Platelet Volume 9.6 fL Prothrombin Time 24.8 SECONDS Prothromb Time International Ratio 2.2 Sodium Level 138 mmol/L Potassium Level 4.3 mmol/L Chloride Level 105 mmol/L Carbon Dioxide Level 23 mmol/L Anion Gap 10.0 mmol/L Blood Urea Nitrogen 21 mg/dl Creatinine 0.93 mg/dl Est Creatinine Clear Calc Drug Dose 103.3 ml/min Estimated GFR () 92.7 Estimated GFR (Non- 80.0 BUN/Creatinine Ratio 22.7 Random Glucose 114 mg/dl Calcium Level 8.0 mg/dl Assessment and Plan (1) Scrotal infection Status: Acute (2) Sepsis Status: Acute Onset: 02/27/2014 75-year-old male with diabetes with vascular abnormalities of the scrotum, now with ulcerations and secondary cellulitis involving the scrotum and groin. Given non-life threatening allergy to amoxicillin and ongoing treatment with warfarin, would give trial of oral cephalosporin e.g. cephalexin, and if tolerated would arrange f/u at [facility] within next 7-10 days to asses clinical response.
--- NOTE | 2016-08-29 21:26 | Discharge Summary ---
Discharge Summary Date of Service Aug 29, 2016. Discharge Summary Admission Date: Aug 27, 2016 at 01:56 Discharge Date: Aug 29, 2016 Discharge Disposition: Home Principal Diagnosis: Scrotal cellulitis Procedures: CT a/p 1. No evidence of bowel obstruction. No evidence of free air 2. Surgically absent gallbladder and appendix 3. Diverticulosis. No evidence of acute diverticulitis 4. Anterior bladder diverticulum with mild perivesical 5. Mildly prominent left inguinal lymph nodes, likely reactive stranding CT pelvis 1. Skin thickening involving the scrotum and anterior pannus 2. No fluid collections to indicate an abscess 3. No air within the soft tissues 4. 25 mm soft tissue lesion within the upper medial right thigh, likely Consultations: Urology Infectious disease Medication Reconciliation New Medications: Cephalexin Monohydrate (Keflex) 500 Mg Cap 500 MG PO BID for 14 Days, #28 CAP Continued Medications: Acetaminophen (Acetaminophen Extra Stren) 500 Mg Tab 500 MG PO Q6 PRN for Pain Aspirin (Aspirin Ec) 81 Mg Tab 81 MG PO QAM Clotrimazole W/ Betamethasone (Lotrisone) 1 Cre Cre 1 APPLN TOP BID for 7 Days, #15 GM USE ON GROIN Digoxin (Digoxin) 0.125 Mg Tab 0.125 MG PO QAM Docusate Sodium (Colace) 100 Mg Cap 100 MG PO AMPM Ferrous Gluconate (Ferrous Gluconate) 324 Mg Tab 324 MG PO AMPM Finasteride (Finasteride) 5 Mg Tab 5 MG PO QAM Furosemide (Lasix) 20 Mg Tab 20 MG PO QAM Ketoconazole (Topical) (Ketoconazole) 2 % Sha 1 APPLN TOP BID for 30 Days, #120 ML Losartan Potassium (Cozaar) 50 Mg Tab 50 MG PO QAM Metformin Hcl (Glucophage) 500 Mg Tab 500 MG PO QAM TAKE THIS MEDICATION ONCE DAILY WITH A MEAL. Metoprolol Succinate (Toprol Xl) 200 Mg Tab 200 MG PO QAM Nystatin/Triamcinolone (Mycolog ||) Cr 1 APPLN TOP BID Potassium Chloride (Potassium Chloride Er) 10 Meq Tab 10 MEQ PO QAM, 3 Refills Probiotic Product (Pro-Biotic Blend) 1 Cap Cap 1 CAP PO AMPM ACCUFLORA Warfarin Sodium (Coumadin) 5 Mg Tab 2.5 MG PO 2XWK, 3 Refills GIVE 1/2 TABLET ON MONDAYS AND Warfarin Sodium (Coumadin) 5 Mg Tab 5 MG PO 5XWK GIVE 1 WHOLE TABLET EXCEPT MONDAY AND THURSDAYS GIVE ON MONDAY,,MON,MON AND SATURDAYS Discontinued Medications: Doxycycline Hyclate (Vibramycin) 100 Mg Cap 100 MG PO BID, #20 Admission Information HPI (per Admitting provider): Mr Deleon is an obese 75 yo M with a 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 He was given this by wound care who sees him for this issue regularly. He underwent an IR embolization of this area at [facility], and there are plans for another IR procedure in the near future. He denies any fevers, chills or feeling bad in the last couple of days, when at home he tripped and fell onto him right side where his family found him. The patient remembers the fall, denying any loss of consciousness or lightheadedness preceding the episode. He feels he might have just tripped. He denies any dysuria, or difficulties urinating. There is a red rash area that appears to be new to the patient and his which encompasses his suprapubic region and appears consistent with a cellulitis. He has a superficial wound to a dependent area of swelling to the left side of his scrotal area. He denies any headache, chest pain, shortness of breath, sore throat, congestion, cough, fevers, chills, nausea, vomiting, diarrhea, constipation, blood per rectum or pain anywhere else. Physical Exam (per Admitting): GEN: Obese, in no acute distress, alert and appropriate, cannot move around bed very easily. HEENT: NC/AT, PERRL, normal sclerae CARDIO: reg rate, irregular rhythm, S1/2 heard without m/g/r LUNGS: CTA bilaterally, no crackles, rales or wheezes, good diaphragmatic excursion ABD: soft, non-tender, non-distended, no rebound or guarding. There is an area of erythema extending up from suprapubic region to just below the umbilicus : penis cannot be seen, there are two testicles of normal size. There is a large area of dark purple skin with chronic changes to skin. On the under surface of this swelling is a chafed area that is an open wound. It appears irritated and inflamed. EXTREMITY: RP and DP palpable 2+ bilat, no LE swelling or edema, deep purple rough skin consistent with chronic changes from venous stasis, extremities are warm and well-perfused NEURO: CN 2-12 grossly intact, sensation intact throughout MUSC: Generalized weakness, no focal deficits. SKIN: warm and dry and as above Hospital Course Patient was admitted with sepsis, related to underlying scrotal wound/ cellulitis. Wound care, Infectious disease and Urology were consulted. Patient received IVF's. Lactate normalized. Patient was started on daptomycin and aztreonam. Blood and urine cultures were negative. Patient clinically improved. Per there was no indication for surgical intervention. Imaging was negative for abscess or air in the soft tissues. Antibiotics were changed to Keflex upon discharge. Patient was continued on all his home medications upon discharge. Patient deemed stable for discharge with Family Medicine, Wound Care and ID follow up. PE on discharge: General- awake; alert; NAD Eyes- EOMI; no scleral icterus Neck- no stridor; trachea midline Lungs- CTA bilaterally; no wheezes/crackles Heart- RRR; no m/r/g Abdomen- soft; obese; NT; nBS Back- no gross abnormalities Extremities- chronic venous stasis skin changes; no deformity Neuro- no focal deficits Skin- chronic venous stasis skin changes; please see wound care image for scrotum . Total time spent on discharge = This includes examination of the patient, discharge planning, medication reconciliation, and communication with other providers. Discharge Instructions Discharge Instructions Admission Reason for Admission: Sepsis Discharge Discharge Diagnosis / Problem: Scrotal infection Discharge Goals Goal(s): Improve disease control Activity Recommendations Activity Limitations: resume your previous activity . Instructions / Follow-Up Instructions / Follow-Up Please follow up with the Wound Care center Dr. Treadwell and Dr. Stewart on September 06 at 10:40am. Please follow up with Family Medicine Dr. Szymanski on September 07 at 11:00am. Keflex is the new antibiotic. Please start taking twice a day tomorrow, 08/30/16 and take until instructed not to do so. Current Hospital Diet Patient's current hospital diet: AHA Diet (Heart Healthy), Diabetes Type 2 Diet Discharge Diet Recommended Diet: AHA Diet (Heart Healthy), Diabetes Type 2 Diet Pending Studies Studies pending at discharge: no Laboratory Results Hemoglobin A1c Test 08/28/16 06:50 Range/Units Estimated Average Glucose 143 mg/dl Hemoglobin A1c 6.6 H 4.5-5.6 % Medical Emergencies . Who to Call and When: Medical Emergencies: If at any time you feel your situation is an emergency, please call 911 immediately. . Non-Emergent Contact Non-Emergency issues call your: Primary Care Provider, Specialist (Wound care center) . . "Provider Documentation" section prepared by Ophelia Carrillo. VTE Core Measure Inpt VTE Proph given/why not?: Warfarin (Coumadin) Additional Copies To Donte Szymanski D.OFidencio Jaimes, DO
[2016-09-23] MEDS ORDERED: FERR325T18 PO (02:48)
[2016-09-23] MEDS ORDERED: MISCCAP PO (02:48)
[2016-09-23] MEDS ORDERED: LNX125 PO (02:48)
[2016-09-23] MEDS ORDERED: DOCU-94 PO (02:48)
[2016-09-23] MEDS ORDERED: WARF5TAB90 PO ×2 (02:51)
[2016-09-23] MEDS ORDERED: METF500T PO (06:25)
[2016-09-23] MEDS ORDERED: ACET-1222 PO (09:16)
[2016-09-23] MEDS ORDERED: ASPI81TA28 PO (16:06)
[2016-11-11] MEDS ORDERED: ASPI81TA28 PO (10:33)
== END 2016-08-29 17:00 | disposition home or self-care (01) | DRG 872 ==
LOC: ENRESERVDT → ENRESERVTM → EDBD 19:57 → C.EDC 19:58 → C.MED 08-27 01:56
PROVIDERS: ADMIT Hospitalist; ATTEND Internal Medicine
DX: A41.9 Sepsis, unspecified organism (principal); E87.1 Hypo-osmolality and hyponatremia; L03.314 Cellulitis of groin; Z68.41 Body mass index [BMI] 40.0-44.9, adult; N49.2 Inflammatory disorders of scrotum; N50.89 Other specified disorders of the male genital organs; N50.1 Vascular disorders of male genital organs; R53.1 Weakness; I48.91 Unspecified atrial fibrillation; I10 Essential (primary) hypertension; N40.0 Benign prostatic hyperplasia without lower urinary tract symptoms; G47.33 Obstructive sleep apnea (adult) (pediatric); E11.9 Type 2 diabetes mellitus without complications; E66.9 Obesity, unspecified; W01.0XXA Fall on same level from slipping, tripping and stumbling without subsequent striking against object, initial encounter; Y92.002 Bathroom of unspecified non-institutional (private) residence as the place of occurrence of the external cause; Z87.891 Personal history of nicotine dependence; Z88.0 Allergy status to penicillin; Z88.1 Allergy status to other antibiotic agents; Z79.01 Long term (current) use of anticoagulants; Z79.82 Long term (current) use of aspirin; Z79.84 Long term (current) use of oral hypoglycemic drugs; Z79.899 Other long term (current) drug therapy

== ENCOUNTER 2016-09-23 17:37 | Inpatient (IN) | payer BC, OTHER ==
[~2016-09-23] VITALS: Ht 182.9 cm; Wt 147.2 kg
[2016-09-23] VITALS (8 sets, daily range): BP systolic 118–146; BP diastolic 48–67; PULSE 73–87; TEMP 36.5–37; O2SAT 93–100
[~2016-09-23 17:37] MED LIST changes: +ACET-1222 PO; +ASPI81TA28 PO; +CLOTCRE33 TOP; -CRAN1CAP3 PO; +DOCU-94 PO; -DOXY100C76 PO; +FERR325T18 PO; -HYDR-5688 PO; +KETO2SHA TOP; +LNX125 PO; +METF500T PO; +MISCCAP PO; +NYSTCRE11 TOP; -PRS5 PO; +WARF5TAB90 PO
--- NOTE | 2016-09-23 18:21 | DIAGNOSTIC IMAGING REPORT ---
CHEST ONE VIEW PORTABLE CLINICAL HISTORY: sob eval for pnea dyspnea COMPARISON STUDY: 08/26/2016 FINDINGS: Cardiomegaly. Diaphragms smooth. Lungs are clear. IMPRESSION: Cardiomegaly. Otherwise negative study Electronically signed by: Fidencio Slater M.D. 09/23/2016 6:20 PM Dictated Date/Time: 09/23/2016 6:19 PM
[2016-09-23] MEDS ORDERED: METO1TAB70 PO (18:35)
[2016-09-23] MEDS ORDERED: POTA10TA33 PO (18:35)
[2016-09-23] MEDS ORDERED: CZR50 PO (18:35)
[2016-09-23 18:41] LABS: INR 1.5 (0.9-1.1)
[2016-09-23] MEDS ORDERED: ACETAMINOPHEN/CODEINE 300/30MG TAB PO STA (19:00)
[2016-09-23] MEDS ORDERED: FUROSEMIDE INJ 20 MG in SYRINGE 0 ML IV SCH (19:30)
[2016-09-23] MEDS ORDERED: ONDANSETRON INJ 2 MG/ML 2 ML VIAL IV PRN (19:30)
[2016-09-23] MEDS ORDERED: ACETAMINOPHEN 325 MG TAB PO PRN (19:30)
[2016-09-23] MEDS ORDERED: FRRS300 PO (19:36)
[2016-09-23] MEDS ORDERED: ACET-1056 PO (19:36)
[2016-09-23] MEDS ORDERED: DEXTROSE 50% 50 ML SYR IV PRN ×2 (19:45→23:45)
[2016-09-23] MEDS ORDERED: GLUCAGON FOR INJ 1 MG VIAL SQ PRN ×2 (19:45→23:45)
[2016-09-23] MEDS ORDERED: ACETAMINOPHEN/CODEINE 300/30MG TAB PO PRN (19:45)
[2016-09-23] MEDS ORDERED: GLUCOSE 10 TABS/TUBE PO PRN ×2 (19:45→23:45)
[2016-09-23] MEDS ORDERED: GLUCOSE 40% GEL 15 GM TUBE PO PRN ×2 (19:45→23:45)
--- NOTE | 2016-09-23 19:45 | EMERGENCY ROOM VISIT NOTE ---
History Report prepared by Mann: Eliezer Emery Under the Supervision of: Dr. Parish Lazcano M.D. First contact with patient: 17:43 Chief Complaint: OTHER COMPLAINT Stated Complaint: NEEDS BLOOD TRANSFUSION History of Present Illness The patient is a 75 year old male who presents to the Emergency Room with complaints of intermittent bleeding for the past week. 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 The patient has had on and off bleeding from the hemangioma for one week. He is not currently bleeding, and denies any other sources of bleeding. He follows up with Kira Patel for the hemangioma. He was also seen by the wound clinic today. The patient denies black or bloody stools. He has been feeling generally weak. He also experiences exertional shortness of breath, and denies any chest pain. The patients hemoglobin today was 6.9 when he saw his primary doctor. He is on Coumadin for history of atrial fibrillation. The patient was admitted to the hospital two weeks ago for sepsis. Source of History: patient Onset: one week ago Position: other (scrotum) Quality: other (hemangioma bleed) Timing: intermittent Associated Symptoms: + SOB, + weakness, No chest pain, No hematochezia, No melena Review of Systems See HPI for pertinent positives & negatives. A total of 10 systems reviewed and were otherwise negative. 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 Social History Smoking Status: Former Smoker Alcohol Use: none Drug Use: none Marital Status: Housing Status: lives with family Occupation Status: retired Current/Historical Medications Scheduled Aspirin (Aspirin Ec), 81 MG PO QAM Digoxin (Digoxin), 0.125 MG PO QAM Docusate Sodium (Colace), 200 MG PO DAILY Ferrous Sulfate (Ferrous Sulfate), 325 MG PO BID Finasteride (Finasteride), 5 MG PO QAM Furosemide (Lasix), 20 MG PO QAM Losartan Potassium (Losartan Potassium), 50 MG PO QAM Metformin Hcl (Glucophage), 500 MG PO QAM Metoprolol Succinate (Toprol Xl), 200 MG PO QAM Potassium Chloride (Potassium Chloride Sr), 10 MEQ PO QAM Warfarin Sodium (Coumadin), 2.5 MG PO 2XWK Warfarin Sodium (Coumadin), 5 MG PO 5XWK Scheduled PRN Acetaminophen (Acetaminophen Extra Stren), 500 MG PO Q6H PRN for Pain Acetaminophen W/ Codeine (Acetaminophen/Codeine #3 300-30 mg), 1 TAB PO Q12 PRN for Pain Allergies Coded Allergies: Metronidazole (Verified Allergy, Severe, see below, 08/26/16) Last discharge summary indicates flagyl was stopped for possible temporal relation to foot drop that developed that admission. Amoxicillin (Verified Allergy, Intermediate, rash, 08/26/16) Physical Exam Vital Signs Date Time Temp Pulse Resp B/P Pulse Ox O2 Delivery O2 Flow Rate FiO2 09/23/16 20:58 36.6 81 16 128/63 99 Nasal Cannula 2.0 09/23/16 20:56 36.6 81 16 128/63 99 2.0 09/23/16 20:49 36.6 77 16 128/63 99 09/23/16 20:31 36.6 85 20 120/51 94 09/23/16 20:10 81 20 116/64 94 Room Air 09/23/16 18:37 87 09/23/16 18:26 88 18 115/69 97 09/23/16 17:39 36.7 90 18 132/74 92 Room Air Physical Exam Constitutional: Vital signs reviewed. Eyes: Pupils are equal round reactive to light. Conjunctiva are noninjected. ENT: Pharynx is clear without erythema or exudate. Mucous membranes are moist. Neck supple without meningeal signs. Respiratory: Clear to auscultation bilaterally. Breath sounds are equal bilaterally. Cardiovascular: Regular rate and rhythm. No rubs or gallops. GI: Soft, nondistended and nontender. Bowel sounds are present. : Multiple scrotal lesions without active bleeding or signs of infection. Musculoskeletal: No lower extremity tenderness. Integumentary: No cyanosis. Neurological: The patient is awake and alert. No focal deficits. Psychiatric: Normal affect. Medical Decision & Procedures ER Provider Diagnostic Interpretation: X-ray results as stated below per interpretation by me and the radiologist: CHEST ONE VIEW PORTABLE CLINICAL HISTORY: sob eval for pnea dyspnea COMPARISON STUDY: 08/26/2016 FINDINGS: Cardiomegaly. Diaphragms smooth. Lungs are clear. IMPRESSION: Cardiomegaly. Otherwise negative study Electronically signed by: Fidencio Slater M.D. 09/23/2016 6:20 PM Dictated Date/Time: 09/23/2016 6:19 PM Laboratory Results Test 09/23/16 18:05 Prothrombin Time 16.0 SECONDS (9.0-12.0) Prothromb Time International Ratio 1.5 (0.9-1.1) Iron Level 180 mcg/dl (35-175) Total Iron Binding Capacity 316 mcg/dl (250-450) Transferrin 259 mg/dl (200-360) Transferrin % Saturation 50 % (20-50) Ferritin 39.6 ng/ml (8.0-388.0) Troponin I < 0.015 ng/ml (0-0.045) Laboratory results as reviewed by me. Medications Administered Medications (Trade) Dose Ordered Sig/Jakub Route Start Time Stop Time Status Last Admin Dose Admin Acetaminophen/ Codeine Phosphate (Tylenol w/ Codeine #3 Tab) 1 tab NOW STAT PO 09/23/16 19:00 09/23/16 19:03 DC 09/23/16 19:06 1 TAB ECG Indication: SOB/dyspnea Rate (beats per minute): 87 Rhythm: atrial fibrillation Findings: no acute ischemic change, no ectopy ED Course 1746: The patient was evaluated in room A10. A complete history and physical exam was performed. 1751: Discussed the risks & benefits of blood transfusion with the patient. He agreed. 1800: Discussed the case with Marce INGRID Cohen [facility]. The patient will be evaluated. 2100: Reassessed the patient. He has no complaints at this time. 1 unit of PRBCs transfusing. Patient is hemodynamically stable. Medical Decision This is a 75-year-old male who presents with anemia. I did perform a limited focused review of portions of the patient's old chart on the electronic medical record. The patient was at the wound clinic today for a scrotal ulceration. No debridement was done, and he was dressed and discharged. His last hemoglobin was 12.0 on August 29 with and INR of 2.2. I did evaluate the patient as noted above. He has a history of scrotal bleeding. He had significant bleeding on Monday and has had intermittent bleeding throughout the week. He had his blood work checked today which showed a hemoglobin of 6.9. He does complain of dyspnea on exertion and generalized weakness for the past week. He denies having any black or bloody stools. IV access was established. The patient was placed on a continuous shopper's aide. I did order and personally review the patient's 12-lead EKG and chest x-ray as described above. I did order and review the patient's blood work as noted in the electronic medical record. His INR is subtherapeutic. I did obtain written and verbal consent for blood transfusion. I did order 2 units of PRBCs. I did discuss the case with the hospitalist and caser up. Consults Time Called: 1750 Consulting Physician: Marce Cohen PA-C, [facility]. Returned Call: 1800 1800: Discussed the case with Marce Coehn PA-C, [facility]. The patient will be evaluated. Impression Primary Impression: Symptomatic anemia Additional Impressions: Scrotal bleeding Anticoagulated on warfarin Scribe Attestation The scribe's documentation has been prepared under my direct and personally reviewed by me in its entirety. I confirm that the note above accurately reflects all work, treatment, procedures, and medical decision making performed by me. Departure Information Dispostion Being Evaluated By Hospitalist Referrals Donte Szymanski D.O. (PCP) Patient Instructions My [facility] Problem Qualifiers
--- NOTE | 2016-09-23 20:22 | History and Physical ---
History & Physical Date & Time of Service: Sep 23, 2016 at 19:38 Chief Complaint: Needs Blood Transfusion Primary Care Physician: Donte Szymanski, D.O. History of Present Illness Source: patient, spouse, clinic records, hospital records This is a 75 year old male with PMH of AF on Coumadin, chronic diastolic CHF, DM type 2, vascular malformation of perineum and other problems listed below who was sent to the ED from Dr. Donte Szymanski's office for Hg of 6.9 on outpatient labs. Patient was recently admitted at [facility] in Aug 2016 for scrotal cellulitis which has resolved. Abx finished 3 days ago. He underwent sclerotherapy of perineal vascular malformation 3 weeks ago at [place]. He developed CIERRA on that overnight hospital stay (creat bumped to 1.4 from baseline 1.1). Subsequent Creat on 09/12 was 1.2. Has been following with wound care. One week ago he developed bleeding from the hemangioma. states it was profuse on first day but tapered off to a slow trickle. For past one week has associated fatigue and dyspnea on exertion after walking 50 feet. He was seen by Dr. Szymanski today who obtained outpatient labs drawn at 1500 today which showed Hg of 6.9 and Creat of 1.4, and patient was sent to ER. Patient is currently c/o pain in tailbone area due to ER litter. He takes Tylenol with codeine at home for chronic pain in perineal vascular malformation area. He denies dizziness, focal neuro symptoms, fever, chills, cough, SOB at rest, chest pain, palpitations, nausea, vomiting, diarrhea, hematochezia, melena, dysuria, frequency, hematuria, weight gain, increased LE edema. No NSAID use. Past Medical/Surgical History Medical Problems: (1) ATRIAL FIBRILLATION Status: Chronic (2) BENIGN HYPERTENSION Status: Chronic (3) Chronic diastolic CHF (congestive heart failure) Status: Chronic (4) DIAB RAMIN WO COMPL, TYPE II OR UNSPEC TYPE, NOT UNCNTRLD Status: Chronic (5) DIVERTICULOSIS COLON (W/O MENT OF HEMORRHAGE) Status: Chronic (6) Gastric ulcer with hemorrhage Status: Chronic (7) HEMANGIOMA SKIN Status: Chronic (8) History of Clostridium difficile Status: Chronic (9) HYPERLIPIDEMIA NEC/NOS Status: Chronic (10) HYPERTENSION NOS Status: Chronic (11) HYPERTROPHY (BENIGN) OF PROSTATE W/O URINARY OBST & OTH LUTS Status: Chronic (12) ICH (intracerebral hemorrhage) Status: Chronic (13) Obesity, morbid, BMI 40.0-49.9 Status: Chronic (14) JUAN MANUEL (obstructive sleep apnea) Status: Chronic Surgical Problems: (1) 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 (2) History of ureter stent Status: Chronic (3) S/P cholecystectomy Status: Chronic (4) S/p excision of perineal lesion Status: Chronic (5) S/P tonsillectomy and adenoidectomy Status: Chronic (6) S/p transcatheter ablation Status: Chronic Family History Diabetes mellitus SISTER Social History Smoking Status: Former Smoker (quit 50 years ago) Alcohol Use: socially Drug Use: none Marital Status: Housing status: lives with significant other Occupational Status: retired Immunizations History of Influenza Vaccine: Yes Influenza Vaccine Date: May 09, 2016 History of Tetanus Vaccine?: Yes Tetanus Immunization Date: Aug 09, 2012 History of Pneumococcal: Yes Pneumococcal Date: Aug 27, 2006 History of Hepatitis B Vaccine: No Multi-Drug Resistant Organisms History of MDRO: No Allergies Coded Allergies: Metronidazole (Verified Allergy, Severe, see below, 08/26/16) Last discharge summary indicates flagyl was stopped for possible temporal relation to foot drop that developed that admission. Amoxicillin (Verified Allergy, Intermediate, rash, 08/26/16) Home Medications Scheduled Aspirin (Aspirin Ec), 81 MG PO QAM Digoxin (Digoxin), 0.125 MG PO QAM Docusate Sodium (Colace), 200 MG PO DAILY Ferrous Sulfate (Ferrous Sulfate), 325 MG PO BID Finasteride (Finasteride), 5 MG PO QAM Furosemide (Lasix), 20 MG PO QAM Losartan Potassium (Losartan Potassium), 50 MG PO QAM Metformin Hcl (Glucophage), 500 MG PO QAM Metoprolol Succinate (Toprol Xl), 200 MG PO QAM Potassium Chloride (Potassium Chloride Sr), 10 MEQ PO QAM Warfarin Sodium (Coumadin), 2.5 MG PO 2XWK Warfarin Sodium (Coumadin), 5 MG PO 5XWK Scheduled PRN Acetaminophen (Acetaminophen Extra Stren), 500 MG PO Q6H PRN for Pain Acetaminophen W/ Codeine (Acetaminophen/Codeine #3 300-30 mg), 1 TAB PO Q12 PRN for Pain Review of Systems Ten point ROS performed with pertinent positives and negatives noted in HPI. Physical Exam Vital Signs Date Time Temp Pulse Resp B/P Pulse Ox O2 Delivery O2 Flow Rate FiO2 09/23/16 18:37 87 09/23/16 18:26 88 18 115/69 97 09/23/16 17:39 36.7 90 18 132/74 92 Room Air General Appearance: + obese, + pertinent finding (alert 75 year old male, appears uncomfortable due to low back pain and perineal pain, at bedside) Head: normocephalic, atraumatic Eyes: normal inspection, PERRL, EOMI ENT: hearing grossly normal, TMs normal, pharynx normal Neck: supple, trachea midline Respiratory/Chest: lungs clear, normal breath sounds, no respiratory distress, no accessory muscle use Cardiovascular: regular rate, rhythm, no murmur Abdomen/GI: normal bowel sounds, non tender, soft Back: + pertinent finding (declines to ) Extremities/Musculoskelatal: no calf tenderness, + pertinent finding (trace pretibial edema bilaterally with venous stasis changes of lower legs) Neurologic/Psych: alert, normal mood/affect, oriented x 3, + pertinent finding (grossly nonfocal, no facial droop, no dysarthria) Skin: warm/dry, + pallor, + pertinent finding (not able to fully visualize perineal vascular malformation while patient is supine; pt declines to be turned at this time due to pain; i am able to see a small area of ecchymosis with small amount of red blood on the brief) Diagnostics Laboratory Results Results Past 24 Hours Test 09/23/16 18:05 09/23/16 19:19 Range/Units Prothrombin Time 16.0 9.0-12.0 SECONDS Prothromb Time International Ratio 1.5 0.9-1.1 Troponin I < 0.015 0-0.045 ng/ml Diagnostic Radiology CHEST ONE VIEW PORTABLE CLINICAL HISTORY: sob eval for pnea dyspnea COMPARISON STUDY: 08/26/2016 FINDINGS: Cardiomegaly. Diaphragms smooth. Lungs are clear. IMPRESSION: Cardiomegaly. Otherwise negative study EKG atrial fibrillation, nonspecific ST and T wave abnormality, when compared to prior EKG nonspecific T wave abnormality now evident in inferior leads, nonspecific T wave abnormality worse in anterolateral leads, as confirmed by cardiology, also interpreted by me Impression Assessment and Plan SYMPTOMATIC ANEMIA Hg is 6.9 as outpatient today at 1500; was running ~ 8-10 earlier this month; prior Hg 11's-13's during the past year Due to bleeding from perineal vascular malformation; has trace bleeding at present On Coumadin for Afib; INR 1.5 Denies GI bleeding symptoms; will check hemoccult stool Symptomatic with fatigue and dyspnea on exertion Hemodynamically stable Check iron studies Transfuse 2 units pRBC with IV Lasix in between due to h/o diastolic CHF Recheck H/H 4 hours post transfusion Coumadin and baby aspirin on hold NONSPECIFIC EKG CHANGE Denies chest pain Initial troponin negative Trend serial cardiac markers Monitor in telemetry Recheck EKG in am PERINEAL VASCULAR MALFORMATION Underwent sclerotherapy in [place] 09/06/16 Consult wound care RECENT CIERRA Creat bumped to 1.4 from baseline 1.1 when hospitalized overnight at [place] for sclerotherapy 09/06-09-07 Trended down to 1.2 on 09/12; now back to 1.4 today Monitor kidney function CHRONIC DIASTOLIC CHF Appears euvolemic; CXR no congestive failure Takes Lasix 20 mg PO daily IV Lasix 20 mg will be given between blood transfusions to avoid volume overload Monitor volume status PERMANENT ATRIAL FIBRILLATION Rate is controlled Continue digoxin and metoprolol Hold Coumadin for bleeding/ anemia HYPERTENSION BP is stable Continue Losartan DM TYPE 2 Hold metformin Insulin sliding scale coverage Check A1c in am DVT PROPHYLAXIS SCD's due to anemia/ bleeding CODE STATUS Full code per my discussion with the patient DISPOSITION Follows with Dr. Donte Szymanski for primary care Patient seen in collaboration with Dr. Ochoa. Please see his addendum. Attending Addendum Pt was seen and examined with at bedside. Agreed with Priscilla VOGT physical exam, assessment and plan. 75 year old male with PMH of AF, chronic diastolic CHF, DM type 2, vascular malformation of perineum was sent to the ED from Dr. Donte Szymanski's office for Hg of 6.9. Pt was said for the past few days he has been feeling tired with low energy. said that he has been bleeding from hemangioma which improves. He underwent sclerotherapy of perineal vascular malformation 3 weeks ago at [place]. Denies any chest pain, palpitation and fever. General- No acute distress Head- atraumatic Eyes- PERRL, EOMI ENT- oropharynx clear Neck- supple, no JVD Lungs- No wheezing Heart- no murmur Abdomen- normal bowel sounds, soft Extremities- no calf tenderness A/P SYMPTOMATIC ANEMIA outpatient lab showed Hbg 6.9 Due to bleeding from perineal vascular malformation hold coumadin and asa. type and cross will transfused 2 units prbc check H/H 4 hours post transfusion NONSPECIFIC EKG CHANGE Asymptomatic First set troponin negative will follow 2 more sets of troponin repeat EKG in am will monitor closely in tele Lab, EKG, imaging reviewed Please refer to Priscilla's PA documentation for other problems. Nacho Ochoa MD VTE Prophylaxis VTE Risk Assessment Done? Y/N: Yes Risk Level: Moderate
[2016-09-23 20:31] LABS: FERRITIN 39.6 ng/ml (8.0-388.0)
[2016-09-23] MEDS ORDERED: FURO-85 PO (21:07)
[2016-09-23] MEDS ORDERED: PRS5 PO (22:15)
[2016-09-24] VITALS (7 sets, daily range): BP systolic 109–133; BP diastolic 60–68; PULSE 78–88; TEMP 36.4–36.7; O2SAT 91–98; Ht 182.9 cm; Wt 147.2 kg
[2016-09-24] MEDS: INSULIN ASPART 100 UNITS/ML 3 ML PEN SC SCH ×3 (00:43→11:00)
[2016-09-24 00:59] LABS: HEMATOCRIT 26.6 % (42-52)
[2016-09-24] MEDS ORDERED: MICONAZOLE NITRATE POWDER 43 GM EXT PRN (01:00)
[2016-09-24] MEDS ORDERED: ZOLPIDEM TARTRATE 5 MG TAB PO PRN (01:00)
[2016-09-24] MEDS ORDERED: NURSING DECISION MEDICATION ORDER SCH (01:00)
[2016-09-24 01:26] LABS: CKMB/CK RATIO 3.3 (0-3.0)
[2016-09-24 06:31] LABS: HEMATOCRIT 27.6 % (42-52); MEAN CELL VOLUME 96.5 fL (80-100); MEAN CORPUSCULAR HEMOGLOBIN 29.7 pg (25-34); MEAN CORPUSCULAR HGB CONC 30.8 g/dl (32-36); PLATELET COUNT 273 K/uL (130-400); RED BLOOD COUNT 2.86 M/uL (4.7-6.1); WHITE BLOOD COUNT 8.82 K/uL (4.8-10.8)
[2016-09-24 06:56] LABS: ESTIMATED AVERAGE GLUCOSE 100 mg/dl; HA1C FLAG Normal (Normal)
[2016-09-24 07:07] LABS: BLOOD UREA NITROGEN 21 mg/dl (7-18); BUN/CREATININE RATIO 16.3 (10-20); CALCIUM 8.2 mg/dl (8.5-10.1); CARBON DIOXIDE 26 mmol/L (21-32); CHLORIDE 107 mmol/L (98-107); GLUCOSE 102 mg/dl (70-99); MAGNESIUM 2.7 mg/dl (1.8-2.4); POTASSIUM 4.8 mmol/L (3.5-5.1); SODIUM 139 mmol/L (136-145)
[2016-09-24 07:12] LABS: CKMB/CK RATIO 3.2 (0-3.0)
[2016-09-24] MEDS ORDERED: FERROUS SULFATE 325 MG TAB PO SCH (08:00)
[2016-09-24] MEDS ORDERED: POTASSIUM CHLORIDE 10 MEQ TABCR PO SCH (09:00)
[2016-09-24] MEDS ORDERED: FINASTERIDE 5 MG TAB PO SCH (09:00)
[2016-09-24] MEDS ORDERED: METOPROLOL SUCC 50MG EXT REL TAB PO SCH (09:00)
[2016-09-24] MEDS ORDERED: LOSARTAN POTASSIUM 50 MG TAB PO SCH (09:00)
[2016-09-24] MEDS ORDERED: FUROSEMIDE 20 MG TAB PO SCH (09:00)
[2016-09-24] MEDS ORDERED: DOCUSATE SODIUM 100 MG CAP PO SCH (09:00)
--- NOTE | 2016-09-24 12:18 | Progress Note ---
Internal Med Progress Note Date of Service: Sep 24, 2016. Provider Documentation: SUBJECTIVE: The patient was seen and examined Denies any symptoms Admitted with Blood loss anemia-from perineal lesions No GI bleed OBJECTIVE: Vital Signs-as noted below Exam: General-Obese No distress at rest Eyes-normal ENT-normal Neck-supple Lungs-Clear to ausucltate bilaterally Heart-Regular Abdomen-Benign,no masses,bowel sound present Extremities-Trace edema bilaterally Chronic skin changes Did not let the perineal area examined [id number] Lab data as noted below. ASSESSMENT & PLAN: Acute Blood Loss Anemia Symptomatic Hg is 6.9 as outpatient today at 1500; was running ~ 8-10 earlier this month; prior Hg 11's-13's during the past year Due to bleeding from perineal vascular malformation; has trace bleeding at present Complicated by use of Coumadin Denies GI bleeding symptoms; will check Hemoccult stool-not collected S/P 2 units of PRBC Hb >8 PERINEAL VASCULAR MALFORMATION Underwent sclerotherapy in [place] 09/06/16 Follows up with wound care Consult wound care and regular follow up as an OP NONSPECIFIC EKG CHANGE Denies chest pain Initial troponin negative Trend serial cardiac markers-negative Monitor in telemetry Recheck EKG in am-doubt any acute issue RECENT CIERRA Creatinine normal; CHRONIC DIASTOLIC CHF Appears euvolemic; CXR no congestive failure Takes Lasix 20 mg PO daily IV Lasix 20 mg will be given between blood transfusions to avoid volume overload No acute symptoms PERMANENT ATRIAL FIBRILLATION Rate is controlled Continue digoxin and metoprolol Will need Coumadin and Aspirin HYPERTENSION BP is stable Continue Losartan DM TYPE 2 Hold metformin Insulin sliding scale coverage Check A1c in am DVT PROPHYLAXIS SCD's due to anemia/ bleeding CODE STATUS Full code per my discussion with the patient DISPOSITION wants to go home today Feels at his baseline Vital Signs: Date Time Temp Pulse Resp B/P Pulse Ox O2 Delivery O2 Flow Rate FiO2 09/24/16 11:46 36.6 86 18 133/68 91 Room Air 09/24/16 08:05 36.5 88 18 109/60 92 Room Air 09/24/16 08:00 95 Room Air 09/24/16 04:15 Room Air 09/24/16 03:46 36.4 78 20 113/61 95 2.0 09/24/16 01:20 36.7 82 18 124/66 98 Nasal Cannula 2.0 09/23/16 23:13 36.7 73 16 129/67 93 09/23/16 23:08 36.7 73 16 129/67 93 2.0 09/23/16 23:00 37.0 74 18 118/54 100 2.0 09/23/16 22:52 78 20 137/59 100 Nasal Cannula 2.0 09/23/16 22:31 82 09/23/16 22:05 87 20 130/57 98 2.0 09/23/16 21:15 78 20 125/48 100 2.0 09/23/16 21:05 36.5 82 16 146/60 99 2.0 09/23/16 20:58 36.6 81 16 128/63 99 Nasal Cannula 2.0 09/23/16 20:56 36.6 81 16 128/63 99 2.0 09/23/16 20:49 36.6 77 16 128/63 99 09/23/16 20:31 36.6 85 20 120/51 94 09/23/16 20:10 81 20 116/64 94 Room Air 09/23/16 18:37 87 09/23/16 18:26 88 18 115/69 97 09/23/16 17:39 36.7 90 18 132/74 92 Room Air Lab Results: Results Past 24 Hours Test 09/23/16 18:05 09/24/16 00:40 09/24/16 00:41 09/24/16 06:02 Range/Units Prothrombin Time 16.0 9.0-12.0 SECONDS Prothromb Time International Ratio 1.5 0.9-1.1 Iron Level 180 35-175 mcg/dl Total Iron Binding Capacity 316 250-450 mcg/dl Transferrin 259 200-360 mg/dl Transferrin % Saturation 50 20-50 % Ferritin 39.6 8.0-388.0 ng/ml Troponin I < 0.015 < 0.015 < 0.015 0-0.045 ng/ml Bedside Glucose 136 70-99 mg/dl Hemoglobin 8.3 8.5 14.0-18.0 g/dL Hematocrit 26.6 27.6 42-52 % Total Creatine Kinase 42 34 39-308 U/L Creatine Kinase MB 1.4 1.1 0.5-3.6 ng/ml Creatine Kinase MB Ratio 3.3 3.2 0-3.0 White Blood Count 8.82 4.8-10.8 K/uL Red Blood Count 2.86 4.7-6.1 M/uL Mean Corpuscular Volume 96.5 80-100 fL Mean Corpuscular Hemoglobin 29.7 25-34 pg Mean Corpuscular Hemoglobin Concent 30.8 32-36 g/dl RDW Standard Deviation 64.4 36.4-46.3 fL RDW Coefficient of Variation 18.5 11.5-14.5 % Platelet Count 273 130-400 K/uL Mean Platelet Volume 9.0 7.4-10.4 fL Sodium Level 139 136-145 mmol/L Potassium Level 4.8 3.5-5.1 mmol/L Chloride Level 107 98-107 mmol/L Carbon Dioxide Level 26 21-32 mmol/L Anion Gap 6.0 3-11 mmol/L Blood Urea Nitrogen 21 7-18 mg/dl Creatinine 1.30 0.60-1.40 mg/dl Est Creatinine Clear Calc Drug Dose 73.2 ml/min Estimated GFR () 61.9 Estimated GFR (Non- 53.4 BUN/Creatinine Ratio 16.3 10-20 Random Glucose 102 70-99 mg/dl Estimated Average Glucose 100 mg/dl Hemoglobin A1c 5.1 4.5-5.6 % Calcium Level 8.2 8.5-10.1 mg/dl Magnesium Level 2.7 1.8-2.4 mg/dl Test 09/24/16 07:39 09/24/16 11:35 Range/Units Bedside Glucose 111 137 70-99 mg/dl
--- NOTE | 2016-09-24 14:28 | Discharge Instructions ---
Discharge Instructions Date of Service Sep 24, 2016. Admission Reason for Admission: Exertional Dyspnea, Symptomatic Anemia Discharge Discharge Diagnosis / Problem: Acute Blood loss Anemia from perinieal wound- resolved Discharge Goals Goal(s): Prevent Disease Progression Activity Recommendations Activity Limitations: resume your previous activity . Instructions / Follow-Up Instructions / Follow-Up Your Doctor's office will call for appointment.Shlomo keep follow up appointment with the wound clinic Current Hospital Diet Patient's current hospital diet: Diabetes Type 2 Diet, AHA Diet (Heart Healthy) Discharge Diet Recommended Diet: Diabetes Type 2 Diet Pending Studies Studies pending at discharge: no Laboratory Results Hemoglobin A1c Test 09/24/16 06:02 Range/Units Estimated Average Glucose 100 mg/dl Hemoglobin A1c 5.1 4.5-5.6 % Medical Emergencies . Who to Call and When: Medical Emergencies: If at any time you feel your situation is an emergency, please call 911 immediately. . Non-Emergent Contact Non-Emergency issues call your: Primary Care Provider . Past History Medical & Surgical History: (1) HYPERTENSION NOS (2) Symptomatic anemia (3) Chronic diastolic CHF (congestive heart failure) (4) Scrotal bleeding (5) Anticoagulated on warfarin (6) Symptomatic anemia (7) JUAN MANUEL (obstructive sleep apnea) (8) ATRIAL FIBRILLATION (9) HEMANGIOMA SKIN . "Provider Documentation" section prepared by Ricky Canela. VTE Core Measure Inpt VTE Proph given/why not?: Warfarin (Coumadin), SCD's
[2016-09-24] MEDS ORDERED: DIGOXIN 0.125 MG TAB PO SCH (16:00)
--- NOTE | 2016-09-25 12:36 | Discharge Summary ---
Discharge Summary Date of Service Sep 25, 2016. Discharge Summary Admission Date: Sep 23, 2016 at 19:18 Discharge Date: Sep 24, 2016 Discharge Disposition: Home Principal Diagnosis: Acute Blood loss Anemia from perineal wound-resolved Secondary Diagnoses/Problems: Please see H&P and Progress note Medication Reconciliation Continued Medications: Acetaminophen (Acetaminophen Extra Stren) 500 Mg Tab 500 MG PO Q6H PRN for Pain Acetaminophen W/ Codeine (Acetaminophen/Codeine #3 300-30 mg) 1 Tab Tab 1 TAB PO Q12 PRN for Pain Aspirin (Aspirin Ec) 81 Mg Tab 81 MG PO QAM Digoxin (Digoxin) 0.125 Mg Tab 0.125 MG PO QAM Docusate Sodium (Colace) 100 Mg Cap 200 MG PO DAILY Ferrous Sulfate (Ferrous Sulfate) 325 Mg Tab 325 MG PO BID Finasteride (Finasteride) 5 Mg Tab 5 MG PO QAM Furosemide (Lasix) 20 Mg Tab 20 MG PO QAM Losartan Potassium (Losartan Potassium) 50 Mg Tab 50 MG PO QAM Metformin Hcl (Glucophage) 500 Mg Tab 500 MG PO QAM TAKE THIS MEDICATION ONCE DAILY WITH A MEAL. Metoprolol Succinate (Toprol Xl) 200 Mg Tab 200 MG PO QAM Potassium Chloride (Potassium Chloride Sr) 10 Meq Tab 10 MEQ PO QAM Warfarin Sodium (Coumadin) 5 Mg Tab 2.5 MG PO 2XWK TAKE HALF A TABLET (2.5 MG) EVERY MONDAY AND MONDAY Warfarin Sodium (Coumadin) 5 Mg Tab 5 MG PO 5XWK TAKE 5 MG EVERY MONDAY,MONDAY,MONDAY,MONDAY, MONDAY Admission Information HPI (per Admitting provider): This is a 75 year old male with PMH of AF on Coumadin, chronic diastolic CHF, DM type 2, vascular malformation of perineum and other problems listed below who was sent to the ED from Dr. Donte Szymanski's office for Hg of 6.9 on outpatient labs. Patient was recently admitted at [facility] in Aug 2016 for scrotal cellulitis which has resolved. Abx finished 3 days ago. He underwent sclerotherapy of perineal vascular malformation 3 weeks ago at [facility]. He developed CIERRA on that overnight hospital stay (creat bumped to 1.4 from baseline 1.1). Subsequent Creat on 09/12 was 1.2. Has been following with wound care. One week ago he developed bleeding from the hemangioma. states it was profuse on first day but tapered off to a slow trickle. For past one week has associated fatigue and dyspnea on exertion after walking 50 feet. He was seen by Dr. Szymanski today who obtained outpatient labs drawn at 1500 today which showed Hg of 6.9 and Creat of 1.4, and patient was sent to ER. Patient is currently c/o pain in tailbone area due to ER litter. He takes Tylenol with codeine at home for chronic pain in perineal vascular malformation area. He denies dizziness, focal neuro symptoms, fever, chills, cough, SOB at rest, chest pain, palpitations, nausea, vomiting, diarrhea, hematochezia, melena, dysuria, frequency, hematuria, weight gain, increased LE edema. No NSAID use. Past Medical/Surgical History Medical Problems: (1) ATRIAL FIBRILLATION Status: Chronic (2) BENIGN HYPERTENSION Status: Chronic (3) Chronic diastolic CHF (congestive heart failure) Status: Chronic (4) DIAB RAMIN WO COMPL, TYPE II OR UNSPEC TYPE, NOT UNCNTRLD Status: Chronic (5) DIVERTICULOSIS COLON (W/O MENT OF HEMORRHAGE) Status: Chronic (6) Gastric ulcer with hemorrhage Status: Chronic (7) HEMANGIOMA SKIN Status: Chronic (8) History of Clostridium difficile Status: Chronic (9) HYPERLIPIDEMIA NEC/NOS Status: Chronic (10) HYPERTENSION NOS Status: Chronic (11) HYPERTROPHY (BENIGN) OF PROSTATE W/O URINARY OBST & OTH LUTS Status: Chronic (12) ICH (intracerebral hemorrhage) Status: Chronic (13) Obesity, morbid, BMI 40.0-49.9 Status: Chronic (14) JUAN MANUEL (obstructive sleep apnea) Status: Chronic Surgical Problems: (1) 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 (2) History of ureter stent Status: Chronic (3) S/P cholecystectomy Status: Chronic (4) S/p excision of perineal lesion Status: Chronic (5) S/P tonsillectomy and adenoidectomy Status: Chronic (6) S/p transcatheter ablation Status: Chronic Family History Diabetes mellitus SISTER Social History Smoking Status: Former Smoker (quit 50 years ago) Alcohol Use: socially Drug Use: none Marital Status: Housing status: lives with significant other Occupational Status: retired Immunizations History of Influenza Vaccine: Yes Influenza Vaccine Date: May 09, 2016 History of Tetanus Vaccine?: Yes Tetanus Immunization Date: Aug 09, 2012 History of Pneumococcal: Yes Pneumococcal Date: Aug 27, 2006 History of Hepatitis B Vaccine: No Multi-Drug Resistant Organisms History of MDRO: No Allergies Coded Allergies: Metronidazole (Verified Allergy, Severe, see below, 08/26/16) Last discharge summary indicates flagyl was stopped for possible temporal relation to foot drop that developed that admission. Amoxicillin (Verified Allergy, Intermediate, rash, 08/26/16) Home Medications Scheduled Aspirin (Aspirin Ec), 81 MG PO QAM Digoxin (Digoxin), 0.125 MG PO QAM Docusate Sodium (Colace), 200 MG PO DAILY Ferrous Sulfate (Ferrous Sulfate), 325 MG PO BID Finasteride (Finasteride), 5 MG PO QAM Furosemide (Lasix), 20 MG PO QAM Losartan Potassium (Losartan Potassium), 50 MG PO QAM Metformin Hcl (Glucophage), 500 MG PO QAM Metoprolol Succinate (Toprol Xl), 200 MG PO QAM Potassium Chloride (Potassium Chloride Sr), 10 MEQ PO QAM Warfarin Sodium (Coumadin), 2.5 MG PO 2XWK Warfarin Sodium (Coumadin), 5 MG PO 5XWK Scheduled PRN Acetaminophen (Acetaminophen Extra Stren), 500 MG PO Q6H PRN for Pain Acetaminophen W/ Codeine (Acetaminophen/Codeine #3 300-30 mg), 1 TAB PO Q12 PRN for Pain Review of Systems Ten point ROS performed with pertinent positives and negatives noted in HPI. Physical Ex - H&P Physical Exam Vital Signs Date Time Temp Pulse Resp B/P Pulse Ox O2 Delivery O2 Flow Rate FiO2 09/23/16 18:37 87 09/23/16 18:26 88 18 115/69 97 09/23/16 17:39 36.7 90 18 132/74 92 Room Air General Appearance: + obese, + pertinent finding (alert 75 year old male, appears uncomfortable due to low back pain and perineal pain, at bedside) Head: normocephalic, atraumatic Eyes: normal inspection, PERRL, EOMI ENT: hearing grossly normal, TMs normal, pharynx normal Neck: supple, trachea midline Respiratory/Chest: lungs clear, normal breath sounds, no respiratory distress, no accessory muscle use Cardiovascular: regular rate, rhythm, no murmur Abdomen/GI: normal bowel sounds, non tender, soft Back: + pertinent finding (declines to ) Extremities/Musculoskelatal: no calf tenderness, + pertinent finding (trace pretibial edema bilaterally with venous stasis changes of lower legs) Neurologic/Psych: alert, normal mood/affect, oriented x 3, + pertinent finding (grossly nonfocal, no facial droop, no dysarthria) Skin: warm/dry, + pallor, + pertinent finding (not able to fully visualize perineal vascular malformation while patient is supine; pt declines to be turned at this time due to pain; i am able to see a small area of ecchymosis with small amount of red blood on the brief) Diagnostics - H&P Diagnostics Laboratory Results Results Past 24 Hours Test 09/23/16 18:05 09/23/16 19:19 Range/Units Prothrombin Time 16.0 9.0-12.0 SECONDS Prothromb Time International Ratio 1.5 0.9-1.1 Troponin I < 0.015 0-0.045 ng/ml Diagnostic Radiology CHEST ONE VIEW PORTABLE CLINICAL HISTORY: sob eval for pnea dyspnea COMPARISON STUDY: 08/26/2016 FINDINGS: Cardiomegaly. Diaphragms smooth. Lungs are clear. IMPRESSION: Cardiomegaly. Otherwise negative study EKG atrial fibrillation, nonspecific ST and T wave abnormality, when compared to prior EKG nonspecific T wave abnormality now evident in inferior leads, nonspecific T wave abnormality worse in anterolateral leads, as confirmed by cardiology, also interpreted by me Impression - H&P Impression Assessment and Plan SYMPTOMATIC ANEMIA Hg is 6.9 as outpatient today at 1500; was running ~ 8-10 earlier this month; prior Hg 11's-13's during the past year Due to bleeding from perineal vascular malformation; has trace bleeding at present On Coumadin for Afib; INR 1.5 Denies GI bleeding symptoms; will check hemoccult stool Symptomatic with fatigue and dyspnea on exertion Hemodynamically stable Check iron studies Transfuse 2 units pRBC with IV Lasix in between due to h/o diastolic CHF Recheck H/H 4 hours post transfusion Coumadin and baby aspirin on hold NONSPECIFIC EKG CHANGE Denies chest pain Initial troponin negative Trend serial cardiac markers Monitor in telemetry Recheck EKG in am PERINEAL VASCULAR MALFORMATION Underwent sclerotherapy in [facility] 09/06/16 Consult wound care RECENT CIERRA Creat bumped to 1.4 from baseline 1.1 when hospitalized overnight at [facility] for sclerotherapy 09/06-09-07 Trended down to 1.2 on 09/12; now back to 1.4 today Monitor kidney function CHRONIC DIASTOLIC CHF Appears euvolemic; CXR no congestive failure Takes Lasix 20 mg PO daily IV Lasix 20 mg will be given between blood transfusions to avoid volume overload Monitor volume status PERMANENT ATRIAL FIBRILLATION Rate is controlled Continue digoxin and metoprolol Hold Coumadin for bleeding/ anemia HYPERTENSION BP is stable Continue Losartan DM TYPE 2 Hold metformin Insulin sliding scale coverage Check A1c in am DVT PROPHYLAXIS SCD's due to anemia/ bleeding CODE STATUS Full code per my discussion with the patient DISPOSITION Follows with Dr. Donte Szymanski for primary care Patient seen in collaboration with Dr. Ochoa. Please see his addendum. Attending Addendum Pt was seen and examined with at bedside. Agreed with Priscilla VOGT physical exam, assessment and plan. 75 year old male with PMH of AF, chronic diastolic CHF, DM type 2, vascular malformation of perineum was sent to the ED from Dr. Donte Szymanski's office for Hg of 6.9. Pt was said for the past few days he has been feeling tired with low energy. said that he has been bleeding from hemangioma which improves. He underwent sclerotherapy of perineal vascular malformation 3 weeks ago at [facility]. Denies any chest pain, palpitation and fever. General- No acute distress Head- atraumatic Eyes- PERRL, EOMI ENT- oropharynx clear Neck- supple, no JVD Lungs- No wheezing Heart- no murmur Abdomen- normal bowel sounds, soft Extremities- no calf tenderness A/P SYMPTOMATIC ANEMIA outpatient lab showed Hbg 6.9 Due to bleeding from perineal vascular malformation hold coumadin and asa. type and cross will transfused 2 units prbc check H/H 4 hours post transfusion NONSPECIFIC EKG CHANGE Asymptomatic First set troponin negative will follow 2 more sets of troponin repeat EKG in am will monitor closely in tele Lab, EKG, imaging reviewed Please refer to Priscilla's TORIE documentation for other problems. Nacho Ochoa MD VTE Prophylaxis VTE Risk Assessment Done? Y/N: Yes Risk Level: Moderate Physical Exam (per Admitting): General Appearance: + obese, + pertinent finding (alert 75 year old male, appears uncomfortable due to low back pain and perineal pain, at bedside) Head: normocephalic, atraumatic Eyes: normal inspection, PERRL, EOMI ENT: hearing grossly normal, TMs normal, pharynx normal Neck: supple, trachea midline Respiratory/Chest: lungs clear, normal breath sounds, no respiratory distress, no accessory muscle use Cardiovascular: regular rate, rhythm, no murmur Abdomen/GI: normal bowel sounds, non tender, soft Back: + pertinent finding (declines to ) Extremities/Musculoskelatal: no calf tenderness, + pertinent finding (trace pretibial edema bilaterally with venous stasis changes of lower legs) Neurologic/Psych: alert, normal mood/affect, oriented x 3, + pertinent finding (grossly nonfocal, no facial droop, no dysarthria) Skin: warm/dry, + pallor, + pertinent finding (not able to fully visualize perineal vascular malformation while patient is supine; pt declines to be turned at this time due to pain; i am able to see a small area of ecchymosis with small amount of red blood on the brief) Hospital Course Acute Blood Loss Anemia Symptomatic Hg is 6.9 as outpatient today at 1500; was running ~ 8-10 earlier this month; prior Hg 11's-13's during the past year Due to bleeding from perineal vascular malformation; has trace bleeding at present Complicated by use of Coumadin Denies GI bleeding symptoms; will check Hemoccult stool-not collected S/P 2 units of PRBC Hb >8 PERINEAL VASCULAR MALFORMATION Underwent sclerotherapy in [facility] 09/06/16 Follows up with wound care Consult wound care and regular follow up as an OP NONSPECIFIC EKG CHANGE Denies chest pain Initial troponin negative Trend serial cardiac markers-negative Monitor in telemetry Recheck EKG in am-doubt any acute issue RECENT CIERRA Creatinine normal; CHRONIC DIASTOLIC CHF Appears euvolemic; CXR no congestive failure Takes Lasix 20 mg PO daily IV Lasix 20 mg will be given between blood transfusions to avoid volume overload No acute symptoms PERMANENT ATRIAL FIBRILLATION Rate is controlled Continue digoxin and metoprolol Will need Coumadin and Aspirin HYPERTENSION BP is stable Continue Losartan DM TYPE 2 Hold metformin Insulin sliding scale coverage Check A1c in am DVT PROPHYLAXIS SCD's due to anemia/ bleeding CODE STATUS Full code per my discussion with the patient DISPOSITION wants to go home today Feels at his baseline Total time spent on discharge =35 minutes This includes examination of the patient, discharge planning, medication reconciliation, and communication with other providers. Discharge Instructions Admission Reason for Admission: Exertional Dyspnea, Symptomatic Anemia Discharge Discharge Diagnosis / Problem: Acute Blood loss Anemia from perineal wound- resolved Discharge Goals Goal(s): Prevent Disease Progression Activity Recommendations Activity Limitations: resume your previous activity . Instructions / Follow-Up Instructions / Follow-Up Your Doctor's office will call for appointment.Shlomo keep follow up appointment with the wound clinic Current Hospital Diet Patient's current hospital diet: Diabetes Type 2 Diet, AHA Diet (Heart Healthy) Discharge Diet Recommended Diet: Diabetes Type 2 Diet Pending Studies Studies pending at discharge: no Laboratory Results Hemoglobin A1c Test 09/24/16 06:02 Range/Units Estimated Average Glucose 100 mg/dl Hemoglobin A1c 5.1 4.5-5.6 % Medical Emergencies . Who to Call and When: Medical Emergencies: If at any time you feel your situation is an emergency, please call 911 immediately. . Non-Emergent Contact Non-Emergency issues call your: Primary Care Provider . Past History Medical & Surgical History: (1) HYPERTENSION NOS (2) Symptomatic anemia (3) Chronic diastolic CHF (congestive heart failure) (4) Scrotal bleeding (5) Anticoagulated on warfarin (6) Symptomatic anemia (7) JUAN MANUEL (obstructive sleep apnea) (8) ATRIAL FIBRILLATION (9) HEMANGIOMA SKIN . "Provider Documentation" section prepared by Ricky Canela. VTE Core Measure Inpt VTE Proph given/why not?: Warfarin (Coumadin), SCD's <Electronically signed by Ricky Canela M.D.> Additional Copies To Donte Szymanski D.O.
[2016-11-11] MEDS ORDERED: ASPI81TA28 PO (10:33)
[2017-04-07] MEDS ORDERED: SULF800T23 PO (13:05)
== END 2016-09-24 15:05 | disposition home or self-care (01) | DRG 811 ==
LOC: CANRESERV → ENRESERVTM → ENRESERVDT → C.EDB 17:38 → C.MED 19:18 → EDBEDREQSVC 20:17
PROVIDERS: ADMIT Internal Medicine; ATTEND Internal Medicine
DX: D62 Acute posthemorrhagic anemia (principal); I61.9 Nontraumatic intracerebral hemorrhage, unspecified; Q28.2 Arteriovenous malformation of cerebral vessels; Z68.41 Body mass index [BMI] 40.0-44.9, adult; I50.32 Chronic diastolic (congestive) heart failure; I48.2 Chronic atrial fibrillation; G47.33 Obstructive sleep apnea (adult) (pediatric); X58.XXXA Exposure to other specified factors, initial encounter; I11.0 Hypertensive heart disease with heart failure; Z79.01 Long term (current) use of anticoagulants; E78.5 Hyperlipidemia, unspecified; S31.501A Unspecified open wound of unspecified external genital organs, male, initial encounter; E11.9 Type 2 diabetes mellitus without complications; N40.0 Benign prostatic hyperplasia without lower urinary tract symptoms; E66.01 Morbid (severe) obesity due to excess calories; K57.90 Diverticulosis of intestine, part unspecified, without perforation or abscess without bleeding; K25.9 Gastric ulcer, unspecified as acute or chronic, without hemorrhage or perforation; Z86.19 Personal history of other infectious and parasitic diseases; Z96.641 Presence of right artificial hip joint; Z87.891 Personal history of nicotine dependence; Z79.891 Long term (current) use of opiate analgesic; Z79.84 Long term (current) use of oral hypoglycemic drugs; Z96.0 Presence of urogenital implants; Z79.82 Long term (current) use of aspirin; Z79.899 Other long term (current) drug therapy; Z87.448 Personal history of other diseases of urinary system; N50.89 Other specified disorders of the male genital organs; S30.0XXA Contusion of lower back and pelvis, initial encounter; I48.91 Unspecified atrial fibrillation; G47.30 Sleep apnea, unspecified; K22.70 Barrett's esophagus without dysplasia

== ENCOUNTER 2017-04-29 07:41 | Inpatient (IN) | payer BC, OTHER ==
[2017-04-29] VITALS (8 sets, daily range): BP systolic 92–152; BP diastolic 56–77; PULSE 99–131; TEMP 36.7–37.9; O2SAT 92–93; Ht 182.9 cm; Wt 140.0 kg
[~2017-04-29] VITALS: Ht 182.9 cm; Wt 140.0 kg
[~2017-04-29 07:41] MED LIST changes: +ACET-1056 PO; -CLOTCRE33 TOP; +CZR50 PO; -FERR325T18 PO; +FRRS300 PO; +FURO-85 PO; -KETO2SHA TOP; -LOSA50TA6 PO; +METO-648 PO; -METO200T29 PO; -MISCCAP PO; -NYSTCRE11 TOP; -POTA-74 PO; +POTA10TA33 PO; +PRS5 PO; +SULF800T23 PO; -WARF5TAB90 PO
[2017-04-29] MEDS ORDERED: MISCCAP80 PO (07:54)
[2017-04-29] MEDS ORDERED: NITR-5 PO (07:54)
[2017-04-29] MEDS ORDERED: HYDR-5688 PO (07:54)
--- NOTE | 2017-04-29 08:17 | EMERGENCY ROOM VISIT NOTE ---
History First contact with patient: 07:49 Chief Complaint: LEG PAIN,LEG INJURY Stated Complaint: flank pain History of Present Illness The patient is a 76 year old male who presents to the Emergency Room with complaints of fever and feeling unwell. 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 He also has atrial fibrillation, was previously on coumadin, and is a type 2 diabetic. His reports over the last few nights he has had fevers upto 102F. In the daytime he is afebrile. He is more lethargic than usual. He also reports numbness and decreased sensation to the R leg yesterday, which is now on the L leg today, but better on the R leg today. He usually ambulates with a cane but has had to use a walker lately, and feels less confident on his feet with this. He has also had an intermittent cough the last few days. He denies this being productive, but reports it occurs frequently. He denies any chest pain or shortness of breath. He reports a new sensation in his lower left pannus. There is a spot of tenderness which is new. He denies pain, itch, or discharge from this spot. His bowels have remained normal. He denies urinary symptoms. His is his primary caregiver. Review of Systems See HPI for pertinent positives & negatives. A total of 10 systems reviewed and were otherwise negative. Past Medical/Surgical History Medical Problems: (1) ATRIAL FIBRILLATION (2) Barretts esophagus (3) BENIGN HYPERTENSION (4) Chronic a-fib (5) Chronic diastolic CHF (congestive heart failure) (6) DIAB RAMIN WO COMPL, TYPE II OR UNSPEC TYPE, NOT UNCNTRLD (7) DIVERTICULOSIS COLON (W/O MENT OF HEMORRHAGE) (8) Exertional dyspnea (9) Gastric ulcer with hemorrhage (10) HEMANGIOMA SKIN (11) History of Clostridium difficile (12) HYPERLIPIDEMIA NEC/NOS (13) HYPERTENSION NOS (14) HYPERTROPHY (BENIGN) OF PROSTATE W/O URINARY OBST & OTH LUTS (15) ICH (intracerebral hemorrhage) (16) Obesity, morbid, BMI 40.0-49.9 (17) JUAN MANUEL (obstructive sleep apnea) (18) Symptomatic anemia (19) Symptomatic anemia Surgical Problems: (1) History of total replacement of right hip (2) History of ureter stent (3) S/P cholecystectomy (4) S/p excision of perineal lesion (5) S/P tonsillectomy and adenoidectomy (6) S/p transcatheter ablation Family History Diabetes mellitus SISTER Social History Smoking Status: Never Smoker Alcohol Use: none Drug Use: none Marital Status: Housing Status: lives with family Occupation Status: retired Current/Historical Medications Scheduled Aspirin (Aspirin Ec), 81 MG PO DAILY Digoxin (Digoxin), 0.125 MG PO QAM Docusate Sodium (Colace), 200 MG PO DAILY Ferrous Sulfate (Ferrous Sulfate), 325 MG PO BID Finasteride (Finasteride), 5 MG PO QAM Furosemide (Lasix), 20 MG PO QAM Losartan Potassium (Losartan Potassium), 50 MG PO QAM Metformin Hcl (Glucophage), 500 MG PO QAM Metoprolol Succinate (Toprol Xl), 200 MG PO QAM Potassium Chloride (Potassium Chloride Sr), 10 MEQ PO QAM Probiotic Product (Probiotic), 1 CAP PO BID Scheduled PRN Hydrocodone/Acetaminophen 5MG/325MG ([place] 5MG/325MG), 1 TABLET PO Q6 PRN for Pain Physical Exam Vital Signs Date Time Temp Pulse Resp B/P (MAP) Pulse Ox O2 Delivery O2 Flow Rate FiO2 04/29/17 11:30 93 Room Air 04/29/17 11:01 37.3 101 22 155/60 91 Room Air 04/29/17 09:53 104 22 150/62 92 Room Air 04/29/17 09:08 108 19 135/63 93 Room Air 04/29/17 08:51 97 04/29/17 08:39 92 Room Air 04/29/17 07:52 37.7 113 22 136/64 92 Room Air Physical Exam GENERAL: Awake, alert, well-appearing, in no acute distress. Central obesity. HENT: Normocephalic, atraumatic. Oropharynx unremarkable. EYES: Normal conjunctiva. Sclera non-icteric. NECK: Supple. No nuchal rigidity. FROM. No JVD. RESPIRATORY: Clear to auscultation. CARDIAC: Regular rate, normal rhythm. Extremities warm and well perfused. Pulses equal. ABDOMEN: Soft, non-distended. No tenderness to palpation of abdomen. Spot tenderness in LLQ pannus, which is superficial. No mass noted under site. No rebound or guarding. Scrotal hemangioma noted in groin. MUSCULOSKELETAL: Chest examination reveals no tenderness. The back is symmetrical on inspection without obvious abnormality. There is no CVA tenderness to palpation. No joint edema. LOWER EXTREMITIES: Calves are equal size bilaterally. They are warm to touch. Chronic venous stasis bilaterally with hyperpigmentation from below knee to top of foot. No erythema noted. 2nd toe on L foot has necrotic / gangrenous appearance. No visible discharge. Tenderness to palpation of the R ankle and tibia. NEURO: Normal sensorium. No sensory or motor deficits noted. SKIN: No rash or jaundice noted. Chronic flaky skin to bilateral feet. No open ulcers noted. Medical Decision & Procedures ER Provider Diagnostic Interpretation: CHEST ONE VIEW PORTABLE CLINICAL HISTORY: FEVER dyspnea COMPARISON STUDY: 09/23/2016 FINDINGS: The bones soft tissues and hemidiaphragms are normal. The cardiomediastinal silhouette is normal. The lungs are clear. The pulmonary vasculature is normal. IMPRESSION: Negative chest. Laboratory Results 04/29/17 09:21 Red Blood Count 4.95, Mean Corpuscular Volume 88.3, Mean Corpuscular Hemoglobin 29.7, Mean Corpuscular Hemoglobin Concent 33.6, Mean Platelet Volume 9.7, Neutrophils (%) (Auto) 81.5, Lymphocytes (%) (Auto) 8.3, Monocytes (%) (Auto) 9.0, Eosinophils (%) (Auto) 0.5, Basophils (%) (Auto) 0.2, Neutrophils # (Auto) 12.62, Lymphocytes # (Auto) 1.28, Monocytes # (Auto) 1.39, Eosinophils # (Auto) 0.08, Basophils # (Auto) 0.03 04/29/17 09:21 Test 04/29/17 09:21 White Blood Count 15.47 K/uL (4.8-10.8) Red Blood Count 4.95 M/uL (4.7-6.1) Hemoglobin 14.7 g/dL (14.0-18.0) Hematocrit 43.7 % (42-52) Mean Corpuscular Volume 88.3 fL (80-100) Mean Corpuscular Hemoglobin 29.7 pg (25-34) Mean Corpuscular Hemoglobin Concent 33.6 g/dl (32-36) Platelet Count 217 K/uL (130-400) Mean Platelet Volume 9.7 fL (7.4-10.4) Neutrophils (%) (Auto) 81.5 % Lymphocytes (%) (Auto) 8.3 % Monocytes (%) (Auto) 9.0 % Eosinophils (%) (Auto) 0.5 % Basophils (%) (Auto) 0.2 % Neutrophils # (Auto) 12.62 K/uL (1.4-6.5) Lymphocytes # (Auto) 1.28 K/uL (1.2-3.4) Monocytes # (Auto) 1.39 K/uL (0.11-0.59) Eosinophils # (Auto) 0.08 K/uL (0-0.5) Basophils # (Auto) 0.03 K/uL (0-0.2) RDW Standard Deviation 52.0 fL (36.4-46.3) RDW Coefficient of Variation 16.1 % (11.5-14.5) Immature Granulocyte % (Auto) 0.5 % Immature Granulocyte # (Auto) 0.07 K/uL (0.00-0.02) Prothrombin Time 12.1 SECONDS (9.0-12.0) Prothromb Time International Ratio 1.1 (0.9-1.1) Anion Gap 8.0 mmol/L (3-11) Est Creatinine Clear Calc Drug Dose 74.0 ml/min Estimated GFR () 64.4 Estimated GFR (Non- 55.6 BUN/Creatinine Ratio 18.3 (10-20) Lactic Acid Level 2.2 mmol/L (0.4-2.0) Calcium Level 8.6 mg/dl (8.5-10.1) Total Bilirubin 0.9 mg/dl (0.2-1) Aspartate Amino Transf (AST/SGOT) 13 U/L (15-37) Alanine Aminotransferase (ALT/SGPT) 13 U/L (12-78) Alkaline Phosphatase 66 U/L (45-117) Total Protein 8.4 gm/dl (6.4-8.2) Albumin 2.8 gm/dl (3.4-5.0) Globulin 5.6 gm/dl (2.5-4.0) Albumin/Globulin Ratio 0.5 (0.9-2) Procalcitonin 0.51 ng/ml (0-0.5) Medications Administered Medications (Trade) Dose Ordered Sig/Jakub Route Start Time Stop Time Status Last Admin Dose Admin Acetaminophen/ Hydrocodone Bitart ([place] 5/325 Tab) 1 tab NOW STAT PO 04/29/17 09:59 04/29/17 10:01 DC 04/29/17 10:08 1 TAB Imipenem/ Cilastatin Sodium 1000 mg/Dextrose 120 ml @ 100 mls/hr NOW STAT IV 04/29/17 10:14 04/29/17 11:25 DC 04/29/17 11:31 100 MLS/HR Vancomycin HCl 270 ml @ 125 mls/hr 1030 IV 04/29/17 10:30 05/09/17 10:29 04/29/17 10:42 125 MLS/HR ECG Indication: tachycardia Rate (beats per minute): 100 Rhythm: atrial fibrillation Findings: other (no ST elevation. Left axis deviation. ) Change: no significant change ED Course 8:00AM: I evaluated the patient in room B2. A complete history and physical examination were performed. 8:15AM: I ordered a CBC, CMP, PT/INR. I discussed the case with Dr. Martin. I also ordered a lactic acid, Chest X-ray, and Urinalysis. 10:00AM: The pt now reported pain. I ordered a dose of his PO [place]. 10:13AM: I discussed the case with Pharmacy. I ordered Vancomycin, Imipenem, and Clindamycin. I was unable to order Zosyn due to Amoxicillin allergy. 11:00AM: I discussed the case with Dr. Ochoa, of the [facility]. The patient will be admitted to the hospital. Medical Decision 76 yo M with fever and decreased ambulation - differential includes cellulitis of legs, cellulitis of scrotum, osteomyelitis, Quoc's gangrene, electrolyte abnormality, or dehydration. He had an IV placed and labs drawn. He was borderline febrile with a temp of 37.7C. He had cultures obtained. His CXR was negative for pathology. Urinalysis is pending. Both his hemangioma which currently has multiple open wounds and his legs / 2nd toe are sources of nidus for infection. He is also unable to ambulate as well which is concerning. The patient will be admitted for evaluation and treatment of these issues. The patient and his were informed of this and agreed with the treatment plan. Impression Primary Impression: Fever Departure Information Dispostion Being Evaluated By Hospitalist Condition GOOD Referrals Donte Szymanski D.O. (PCP) Patient Instructions [facility]
--- NOTE | 2017-04-29 08:58 | DIAGNOSTIC IMAGING REPORT ---
CHEST ONE VIEW PORTABLE CLINICAL HISTORY: FEVER dyspnea COMPARISON STUDY: 09/23/2016 FINDINGS: The bones soft tissues and hemidiaphragms are normal. The cardiomediastinal silhouette is normal. The lungs are clear. The pulmonary vasculature is normal. IMPRESSION: Negative chest. The above report was generated using voice recognition software. It may contain grammatical, syntax or spelling errors. Electronically signed by: Fidencio Slater M.D. 04/29/2017 8:56 AM Dictated Date/Time: 04/29/2017 8:56 AM
[2017-04-29 09:36] LABS: BASO % 0.2 %; BASO ABS # 0.03 K/uL (0-0.2); COMPLETE YES; EOS % 0.5 %; HEMATOCRIT 43.7 % (42-52); IG% 0.5 %; LYMPH % 8.3 %; LYMPH ABS # 1.28 K/uL (1.2-3.4); MEAN CELL VOLUME 88.3 fL (80-100); MEAN CORPUSCULAR HEMOGLOBIN 29.7 pg (25-34); MEAN CORPUSCULAR HGB CONC 33.6 g/dl (32-36); MEAN PLATELET VOLUME 9.7 fL (7.4-10.4); NEUT % 81.5 %; PLATELET COUNT 217 K/uL (130-400); RED BLOOD COUNT 4.95 M/uL (4.7-6.1); WHITE BLOOD COUNT 15.47 K/uL (4.8-10.8)
[2017-04-29 09:45] LABS: INR 1.1 (0.9-1.1); PROTHROMBIN TIME (PATIENT) 12.1 SECONDS (9.0-12.0)
[2017-04-29 09:54] LABS: BUN/CREATININE RATIO 18.3 (10-20); CALCIUM 8.6 mg/dl (8.5-10.1); CREATININE 1.25 mg/dl (0.60-1.40); POTASSIUM 4.3 mmol/L (3.5-5.1)
[2017-04-29 09:57] LABS: ALB/GLOB RATIO 0.5 (0.9-2)
[2017-04-29] MEDS ORDERED: HYDROCODONE/ACETAMOPHEN 5/325MG TAB PO STA (09:59)
[2017-04-29] MEDS ORDERED: VANCOMYCIN INJ 1,000 MG in SODIUM CHLORIDE 0.9% 250ML 250 ML IV STA (10:13)
[2017-04-29] MEDS ORDERED: CILASTATIN IV STA (10:14)
[2017-04-29] MEDS ORDERED: DEXTROSE 5% IV STA (10:14)
[2017-04-29] MEDS ORDERED: IMIPENEM IV STA (10:14)
[2017-04-29] MEDS ORDERED: CLINDAMYCIN IV 600 MG in DEXTROSE 5% 50ML 50 ML IV ONE (10:15)
[2017-04-29] MEDS ORDERED: MoRPHine SULFATE 4 MG/ML 1 ML CARP\\VIAL IV PRN (10:15)
[2017-04-29] MEDS ORDERED: VANCOMYCIN 1GM/270ML NSS 270 ML IV SCH (10:30)
[2017-04-29] MEDS ORDERED: PIPERACILL/TAZOBAC IV 3.375 GM in DEXTROSE 5% 100ML 100 ML IV SCH (12:00)
--- NOTE | 2017-04-29 12:36 | DIAGNOSTIC IMAGING REPORT ---
R ANKLE 2 VIEWS CLINICAL HISTORY: right ankle pain pain COMPARISON: None. DISCUSSION: Findings consistent with old fracture of the distal fibula. Tiny avulsion medial malleolus felt to be old. Heel spur. Moderate degenerative change of the ankle mortise and subtalar joint. There is no evidence for soft tissue swelling. IMPRESSION: Findings consistent with old post traumatic and postoperative change. Heel spur. No acute process. The above report was generated using voice recognition software. It may contain grammatical, syntax or spelling errors. Electronically signed by: Fidencio Slater M.D. 04/29/2017 12:34 PM Dictated Date/Time: 04/29/2017 12:34 PM
[2017-04-29] MEDS ORDERED: ASPIRIN 81 MG ECTAB PO STA (12:39)
[2017-04-29] MEDS ORDERED: METOPROLOL SUCC 50MG EXT REL TAB PO STA (12:40)
[2017-04-29] MEDS ORDERED: DIGOXIN 0.125 MG TAB PO STA (12:40)
--- NOTE | 2017-04-29 12:41 | DIAGNOSTIC IMAGING REPORT ---
L TOE(S) MIN 2 VIEWS CLINICAL HISTORY: left toe necrotic infection COMPARISON: None. DISCUSSION: Limited study as the patient could not be positioned. Visibility base proximal phalanx is limited. Generalized degenerative change. Moderate soft tissue edema. No well-defined bony destructive process. IMPRESSION: Limited study showing no evidence for bony destructive process. Soft tissue edema. The above report was generated using voice recognition software. It may contain grammatical, syntax or spelling errors. Electronically signed by: Fidencio Slater M.D. 04/29/2017 12:40 PM Dictated Date/Time: 04/29/2017 12:38 PM
[2017-04-29] MEDS ORDERED: GLUCOSE 10 TABS/TUBE PO PRN (12:45)
[2017-04-29] MEDS ORDERED: GLUCOSE 40% GEL 15 GM TUBE PO PRN (12:45)
[2017-04-29] MEDS ORDERED: DEXTROSE 50% 50 ML SYR IV PRN (12:45)
[2017-04-29] MEDS ORDERED: GLUCAGON FOR INJ 1 MG VIAL SQ PRN (12:45)
[2017-04-29] MEDS ORDERED: VANCOMYCIN CONSULT ACTIVE PRN (13:45)
[2017-04-29] MEDS ORDERED: PIPERACILL/TAZOBAC IV 4.5 GM in DEXTROSE 5% 100ML IV ONE (14:00)
[2017-04-29] MEDS ORDERED: PIPERACILL/TAZOBAC CONSULT ACTIVE PRN (14:00)
[2017-04-29] MEDS: VANCOMYCIN INJ 1,750 MG in SODIUM CHLORIDE 0.9% 500ML 500 ML IV SCH (14:51)
--- NOTE | 2017-04-29 15:41 | Pharmacy Progress Note ---
Pharmacy Antibiotic Consult Date of Service: Apr 29, 2017. Pharmacy Dosing Scope Pharmacy is consulted to initiate empiric Vancomycin and Zosyn IV dosing therapy , order appropriate labs and adjust drug dose/frequency. Subjective The patient is a 76 year old male admitted on Apr 29, 2017 at 11:33. Objective Height (Feet): 6 Height (Inches): 0.00 Weight (Kilograms): 143.900 Lab Results (24hrs): Test 04/29/17 09:21 04/29/17 15:21 White Blood Count 15.47 K/uL (4.8-10.8) Red Blood Count 4.95 M/uL (4.7-6.1) Hemoglobin 14.7 g/dL (14.0-18.0) Hematocrit 43.7 % (42-52) Mean Corpuscular Volume 88.3 fL (80-100) Mean Corpuscular Hemoglobin 29.7 pg (25-34) Mean Corpuscular Hemoglobin Concent 33.6 g/dl (32-36) Platelet Count 217 K/uL (130-400) Mean Platelet Volume 9.7 fL (7.4-10.4) Neutrophils (%) (Auto) 81.5 % Lymphocytes (%) (Auto) 8.3 % Monocytes (%) (Auto) 9.0 % Eosinophils (%) (Auto) 0.5 % Basophils (%) (Auto) 0.2 % Neutrophils # (Auto) 12.62 K/uL (1.4-6.5) Lymphocytes # (Auto) 1.28 K/uL (1.2-3.4) Monocytes # (Auto) 1.39 K/uL (0.11-0.59) Eosinophils # (Auto) 0.08 K/uL (0-0.5) Basophils # (Auto) 0.03 K/uL (0-0.2) RDW Standard Deviation 52.0 fL (36.4-46.3) RDW Coefficient of Variation 16.1 % (11.5-14.5) Immature Granulocyte % (Auto) 0.5 % Immature Granulocyte # (Auto) 0.07 K/uL (0.00-0.02) Prothrombin Time 12.1 SECONDS (9.0-12.0) Prothromb Time International Ratio 1.1 (0.9-1.1) Sodium Level 132 mmol/L (136-145) Potassium Level 4.3 mmol/L (3.5-5.1) Chloride Level 100 mmol/L (98-107) Carbon Dioxide Level 24 mmol/L (21-32) Anion Gap 8.0 mmol/L (3-11) Blood Urea Nitrogen 23 mg/dl (7-18) Creatinine 1.25 mg/dl (0.60-1.40) Est Creatinine Clear Calc Drug Dose 74.0 ml/min Estimated GFR () 64.4 Estimated GFR (Non- 55.6 BUN/Creatinine Ratio 18.3 (10-20) Random Glucose 159 mg/dl (70-99) Lactic Acid Level 2.2 mmol/L (0.4-2.0) Calcium Level 8.6 mg/dl (8.5-10.1) Total Bilirubin 0.9 mg/dl (0.2-1) Aspartate Amino Transf (AST/SGOT) 13 U/L (15-37) Alanine Aminotransferase (ALT/SGPT) 13 U/L (12-78) Alkaline Phosphatase 66 U/L (45-117) Total Protein 8.4 gm/dl (6.4-8.2) Albumin 2.8 gm/dl (3.4-5.0) Globulin 5.6 gm/dl (2.5-4.0) Albumin/Globulin Ratio 0.5 (0.9-2) Procalcitonin 0.51 ng/ml (0-0.5) Assessment & Plan Assessment 76 year old male presenting with complaints of fever and feeling unwell. History of scrotal hemangioma, DM, a fib, c diff, diverticulitis, and gastric ulcer. reports fever of 102 at home. His 2nd toe on L foot has necrotic / gangrenous appearance. He also has a history of bilateral chronic venous stasis to lower extremities. UA and blood cultures pending. Reports cough over the past two days. Pharmacy consulted to dose Vancomycin and Zosyn for empiric treatment of possible cellulitis or osteomyelitis. Plan Vancomycin * Goal trough 15-20 mcg/mL * Dosing based on PK parameters: T1/2=10.5 hrs Ke=0.066 Vd=0.6L/kg * Pt received vanc 1 gm in the ED, then ordered Vanco 1.75 (12mg/kg) gm IV q 12 hours. * Lower than traditional dose selected due to the patient's renal function and his likely to accumulate. * Trough level will not be ordered unless vanc extended beyond 48 hours. Zosyn * 4.5 gm IV x 1 over 30 minutes, then 4.5 gm IV q 8 hours (extended interval) * Dosing at higher range due to patient's BMI >35 Pharmacy will continue to follow and will adjust dose/frequency as necessary. Thank you
[2017-04-29] MEDS ORDERED: PNEUMOCOCCAL ADMINISTRATION CHARGE ONE (16:15)
[2017-04-29] MEDS ORDERED: PNEUMOCOCCAL POLYSACCHARIDES 25 MCG/0.5 ML VIAL/SYR IM. ONE (16:15)
[2017-04-29] MEDS ORDERED: INFLUENZA ADMINISTRATION CHARGE ONE (16:15)
[2017-04-29] MEDS ORDERED: INFLUENZA VACCINE HIGH DOSE 65+ 0.5 ML SYR IM. ONE (16:15)
[2017-04-29] MEDS: INSULIN ASPART 100 UNITS/ML 3 ML PEN SC SCH ×2 (16:30→21:00)
[2017-04-29] MEDS: HYDROCODONE/ACETAMOPHEN 5/325MG TAB PO PRN ×2 (16:51→23:07)
--- NOTE | 2017-04-29 17:37 | History and Physical ---
History & Physical Date & Time of Service: Apr 29, 2017 at 11:55 Chief Complaint: Fever and chills Primary Care Physician: Donte Szymanski D.OYulissa History of Present Illness Source: patient, spouse, clinic records, hospital records 76 year old male with PMH of scrotal hematoma, Afib, HTN, JUAN MANUEL, HTN presents to the Emergency Room with complaints of fever, chills and weakness. Pt said that for the last 2 night he has been having fever in the 102F. said that pt has been feeling very weak to the point where he cannot even stand. Pt said that he started to have pain in the left leg with weakness. He said that now the pain is in the left leg. He has a necrotic left 2nd toe that he said that he noticed it a couple days ago. said that he has been follow with the wound clinic for the for his scrotal hemangioma that has been sipping. He was on coumadin that was discontinued by cardiology because of bleeding from the scrotal hemangioma. He has multiple skin opening area from the scrotal area and said that it has not been getting worst. He denies any chest pain, palpitation, dizziness and shortness of breath. Past Medical/Surgical History Medical Problems: (1) ATRIAL FIBRILLATION Status: Chronic (2) BENIGN HYPERTENSION Status: Chronic (3) Chronic diastolic CHF (congestive heart failure) Status: Chronic (4) DIAB RAMIN WO COMPL, TYPE II OR UNSPEC TYPE, NOT UNCNTRLD Status: Chronic (5) DIVERTICULOSIS COLON (W/O MENT OF HEMORRHAGE) Status: Chronic (6) Gastric ulcer with hemorrhage Status: Chronic (7) HEMANGIOMA SKIN Status: Chronic (8) History of Clostridium difficile Status: Chronic (9) HYPERLIPIDEMIA NEC/NOS Status: Chronic (10) HYPERTENSION NOS Status: Chronic (11) HYPERTROPHY (BENIGN) OF PROSTATE W/O URINARY OBST & OTH LUTS Status: Chronic (12) ICH (intracerebral hemorrhage) Status: Chronic (13) Obesity, morbid, BMI 40.0-49.9 Status: Chronic (14) JUAN MANUEL (obstructive sleep apnea) Status: Chronic Surgical Problems: (1) 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 (2) History of ureter stent Status: Chronic (3) S/P cholecystectomy Status: Chronic (4) S/p excision of perineal lesion Status: Chronic (5) S/P tonsillectomy and adenoidectomy Status: Chronic (6) S/p transcatheter ablation Status: Chronic Family History Diabetes mellitus SISTER Social History Smoking Status: Never Smoker Drug Use: none Marital Status: Housing status: lives with significant other Occupational Status: retired Immunizations History of Influenza Vaccine: Yes Influenza Vaccine Date: May 09, 2016 History of Tetanus Vaccine?: Yes Tetanus Immunization Date: Aug 09, 2012 History of Pneumococcal: Yes Pneumococcal Date: Aug 27, 2006 History of Hepatitis B Vaccine: No Multi-Drug Resistant Organisms History of MDRO: No Allergies Coded Allergies: Metronidazole (Verified Allergy, Severe, see below, 08/26/16) Last discharge summary indicates flagyl was stopped for possible temporal relation to foot drop that developed that admission. Amoxicillin (Verified Allergy, Intermediate, rash, 08/26/16) Home Medications Scheduled Aspirin (Aspirin Ec), 81 MG PO DAILY Digoxin (Digoxin), 0.125 MG PO QAM Docusate Sodium (Colace), 200 MG PO DAILY Ferrous Sulfate (Ferrous Sulfate), 325 MG PO BID Finasteride (Finasteride), 5 MG PO QAM Furosemide (Lasix), 20 MG PO QAM Losartan Potassium (Losartan Potassium), 50 MG PO QAM Metformin Hcl (Glucophage), 500 MG PO QAM Metoprolol Succinate (Toprol Xl), 200 MG PO QAM Potassium Chloride (Potassium Chloride Sr), 10 MEQ PO QAM Probiotic Product (Probiotic), 1 CAP PO BID Scheduled PRN Hydrocodone/Acetaminophen 5MG/325MG ([place] 5MG/325MG), 1 TABLET PO Q6 PRN for Pain Review of Systems Constitutional: + fever, + chills, + weakness Eyes: No worsening of vision, No eye pain ENT: No nasal symptoms, No sore throat Respiratory: + cough, No wheezing, No shortness of breath Cardiovascular: No chest pain, No claudication Abdomen: No pain, No nausea, No diarrhea Musculoskeletal: + problem reported (b/l LE pain), No calf pain Genitourinary - Male: No hematuria, No dysuria Neurologic: + weakness, + balance problems, No memory loss Psychiatric: No substance abuse Hematologic / Lymphatic: No night sweats Integumentary: No rash, No itch Physical Exam Vital Signs Date Time Temp Pulse Resp B/P (MAP) Pulse Ox O2 Delivery O2 Flow Rate FiO2 04/29/17 09:53 104 22 150/62 92 Room Air 04/29/17 09:08 108 19 135/63 93 Room Air 04/29/17 08:51 97 04/29/17 08:39 92 Room Air 04/29/17 07:52 37.7 113 22 136/64 92 Room Air General Appearance: WD/WN, no apparent distress Head: normocephalic Eyes: PERRL, EOMI ENT: hearing grossly normal Neck: no JVD Respiratory/Chest: normal breath sounds, no respiratory distress, no accessory muscle use Cardiovascular: + irregularly irregular Abdomen/GI: non tender, soft Genitourinary - Male: + pertinent finding (wound posterior scrotal area) Back: no CVA tenderness Extremities/Musculoskelatal: no calf tenderness, + pertinent finding (left 2nd toe necrotic, chronic LE discoloration) Neurologic/Psych: alert, oriented x 3 Skin: warm/dry Diagnostics Laboratory Results Results Past 24 Hours Test 04/29/17 09:21 Range/Units White Blood Count 15.47 4.8-10.8 K/uL Red Blood Count 4.95 4.7-6.1 M/uL Hemoglobin 14.7 14.0-18.0 g/dL Hematocrit 43.7 42-52 % Mean Corpuscular Volume 88.3 80-100 fL Mean Corpuscular Hemoglobin 29.7 25-34 pg Mean Corpuscular Hemoglobin Concent 33.6 32-36 g/dl Platelet Count 217 130-400 K/uL Mean Platelet Volume 9.7 7.4-10.4 fL Neutrophils (%) (Auto) 81.5 % Lymphocytes (%) (Auto) 8.3 % Monocytes (%) (Auto) 9.0 % Eosinophils (%) (Auto) 0.5 % Basophils (%) (Auto) 0.2 % Neutrophils # (Auto) 12.62 1.4-6.5 K/uL Lymphocytes # (Auto) 1.28 1.2-3.4 K/uL Monocytes # (Auto) 1.39 0.11-0.59 K/uL Eosinophils # (Auto) 0.08 0-0.5 K/uL Basophils # (Auto) 0.03 0-0.2 K/uL RDW Standard Deviation 52.0 36.4-46.3 fL RDW Coefficient of Variation 16.1 11.5-14.5 % Immature Granulocyte % (Auto) 0.5 % Immature Granulocyte # (Auto) 0.07 0.00-0.02 K/uL Prothrombin Time 12.1 9.0-12.0 SECONDS Prothromb Time International Ratio 1.1 0.9-1.1 Sodium Level 132 136-145 mmol/L Potassium Level 4.3 3.5-5.1 mmol/L Chloride Level 100 98-107 mmol/L Carbon Dioxide Level 24 21-32 mmol/L Anion Gap 8.0 3-11 mmol/L Blood Urea Nitrogen 23 7-18 mg/dl Creatinine 1.25 0.60-1.40 mg/dl Est Creatinine Clear Calc Drug Dose 74.0 ml/min Estimated GFR () 64.4 Estimated GFR (Non- 55.6 BUN/Creatinine Ratio 18.3 10-20 Random Glucose 159 70-99 mg/dl Lactic Acid Level 2.2 0.4-2.0 mmol/L Calcium Level 8.6 8.5-10.1 mg/dl Total Bilirubin 0.9 0.2-1 mg/dl Aspartate Amino Transf (AST/SGOT) 13 15-37 U/L Alanine Aminotransferase (ALT/SGPT) 13 12-78 U/L Alkaline Phosphatase 66 45-117 U/L Total Protein 8.4 6.4-8.2 gm/dl Albumin 2.8 3.4-5.0 gm/dl Globulin 5.6 2.5-4.0 gm/dl Albumin/Globulin Ratio 0.5 0.9-2 Microbiology Results 04/29/17 Blood Culture, Received Pending 04/29/17 Blood Culture, Received Pending Diagnostic Radiology CHEST ONE VIEW PORTABLE CLINICAL HISTORY: FEVER dyspnea COMPARISON STUDY: 09/23/2016 FINDINGS: The bones soft tissues and hemidiaphragms are normal. The cardiomediastinal silhouette is normal. The lungs are clear. The pulmonary vasculature is normal. IMPRESSION: Negative chest. The above report was generated using voice recognition software. It may contain grammatical, syntax or spelling errors. Electronically signed by: Fidencio Slater M.D. 04/29/2017 8:56 AM Dictated Date/Time: 04/29/2017 8:56 AM Impression Assessment and Plan SEPSIS Present with fever and chills associated with weakness On admission WBC, lactic acid and HR elevated with low grade fever Possible related to scrotal wound infection Blood cx collected in the ER Received IV imipenem, Clinda and Vanco in the ER Will start on zosyn and continue IV vanco Repeat lactic acid, check procalcitonin level Gentle fluid hydration monitor CBC Scrotal hemangioma/wound Daily wound care Wound care consulted L 2nd Toe Necrotic Possible Toe ischemic Will get an xray of the L toes Consult vascular surgery Will get an arterial doppler of LE DM Type 2 Hba1c 5.4 on 12/06 Check HBa1c hold metformin On insulin coverage Chronic Afib coumadin discontinue last month by cardiology due to scrotum hemangioma bleeding Continue metoprolol and digoxin and aspirin Will monitor in telemetry JUAN MANUEL Does not use a CPAP Stable BPH Continue finasteride Stable HTN On Lasix/metoprolol continue monitor BP Back Pain On hydrocodone prn DVT px SCD Due to scrotal hemangioma bleeding) High risk for DVT CODE STATUS FULL CODE Level of Care Telemetry Resuscitation Status FULL RESUSCITATION VTE Prophylaxis VTE Risk Assessment Done? Y/N: Yes Risk Level: High Given or contraindicated: SCD's
--- NOTE | 2017-04-29 19:18 | DIAGNOSTIC IMAGING REPORT ---
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 The patient declined blood pressure evaluation. Velocity and waveform characteristics are in general unremarkable. There are biphasic waveforms throughout the visualized arterial structures. There is moderate velocity increase involving the right posterior tibial artery at 1 39 cm/s. There is reversal of flow within the right dorsalis pedis artery. Waveforms of the left leg are biphasic with unremarkable velocity characteristics. IMPRESSION: 1. Somewhat limited exam as the patient declined blood pressure evaluation. 2. No significant stenotic process of the left arterial structures. 3. Moderate narrowing right posterior tibial artery with moderate to rather significant retrograde flow within the right dorsalis pedis artery. The above report was generated using voice recognition software. It may contain grammatical, syntax or spelling errors. Electronically signed by: Fidencio Slater M.D. 04/29/2017 7:16 PM Dictated Date/Time: 04/29/2017 7:13 PM
[2017-04-29] MEDS: PIPERACILL/TAZOBAC IV 4.5 GM in DEXTROSE 5% 100ML IV SCH (19:41)
--- NOTE | 2017-04-29 20:30 | Progress Note ---
Progress Note Date of Service Apr 29, 2017. Progress Note Seen at 1600 Pt said that he feels fine Repeat Lactic acid acid slightly elevated will continue monitor PT Repeat lactic acid in 6 hrs continue broad spectrum abx Continue IV
[2017-04-29] MEDS: SODIUM CHLORIDE 0.9% 1000ML 1,000 ML IV SCH (21:12)
[2017-04-30 00:11] VITALS: BP 122/64; PULSE 101; TEMP 36.9; O2SAT 93
[2017-04-30] MEDS: HYDROmorphone INJ 1 MG/ML SYR IV PRN ×5 (01:13→20:20)
[2017-04-30] MEDS: VANCOMYCIN INJ 1,750 MG in SODIUM CHLORIDE 0.9% 500ML 500 ML IV SCH ×2 (02:17→14:07)
[2017-04-30] MEDS: PIPERACILL/TAZOBAC IV 4.5 GM in DEXTROSE 5% 100ML IV SCH ×3 (04:19→21:13)
[2017-04-30] MEDS: INSULIN ASPART 100 UNITS/ML 3 ML PEN SC SCH ×4 (06:30→21:00)
[2017-04-30 07:13] VITALS: BP 121/62; PULSE 98; TEMP 36.8; O2SAT 92
[2017-04-30 07:43] LABS: BASO % 0.2 %; BASO ABS # 0.03 K/uL (0-0.2); COMPLETE YES; EOS % 3.5 %; IG% 0.4 %; LYMPH % 8.8 %; LYMPH ABS # 1.21 K/uL (1.2-3.4); MEAN CELL VOLUME 87.5 fL (80-100); MEAN CORPUSCULAR HEMOGLOBIN 29.1 pg (25-34); MEAN CORPUSCULAR HGB CONC 33.3 g/dl (32-36); MONO % 5.5 %; NEUT % 81.6 %; PLATELET COUNT 214 K/uL (130-400); RED BLOOD COUNT 5.26 M/uL (4.7-6.1); WHITE BLOOD COUNT 13.75 K/uL (4.8-10.8)
[2017-04-30] MEDS: DOCUSATE SODIUM 100 MG CAP PO SCH (08:08)
[2017-04-30] MEDS: SODIUM CHLORIDE 0.9% 1000ML 1,000 ML IV SCH ×2 (08:08→21:46)
[2017-04-30] MEDS: ASPIRIN 81 MG ECTAB PO SCH (08:08)
[2017-04-30] MEDS: FINASTERIDE 5 MG TAB PO SCH (08:08)
[2017-04-30] MEDS: METOPROLOL SUCC 50MG EXT REL TAB PO SCH (08:08)
[2017-04-30 08:09] LABS: BUN/CREATININE RATIO 17.2 (10-20); CALCIUM 8.4 mg/dl (8.5-10.1); CREATININE 1.23 mg/dl (0.60-1.40); POTASSIUM 3.9 mmol/L (3.5-5.1)
[2017-04-30] MEDS: LOSARTAN POTASSIUM 50 MG TAB PO SCH (08:09)
[2017-04-30] MEDS: FUROSEMIDE 20 MG TAB PO SCH (08:09)
[2017-04-30] MEDS: POTASSIUM CHLORIDE 10 MEQ TABCR PO SCH (08:09)
[2017-04-30] MEDS: DIGOXIN 0.125 MG TAB PO SCH (08:09)
[2017-04-30 11:15] VITALS: BP 113/56; PULSE 94; TEMP 36.6; O2SAT 97
[2017-04-30 14:33] VITALS: BP 120/73; PULSE 99; TEMP 36.5; O2SAT 94
--- NOTE | 2017-04-30 17:54 | Progress Note ---
Medicine Progress Note Date & Time of Visit: Apr 30, 2017 at 10:35. Subjective Pt was seen and examined Lying in bed with no distress Pt said that he feels much better today He said that he slightly feels stronger today Later during the day I went back to his room to update his He has been sitting on the chair for the last few hours Denies any fever, palpitation, dizziness and chest pain Objective Last 8 Hrs Date Time Temp Pulse Resp B/P (MAP) Pulse Ox O2 Delivery O2 Flow Rate FiO2 04/30/17 16:00 Room Air Nasal Cannula 04/30/17 14:33 36.5 99 18 120/73 (89) 94 Room Air 04/30/17 12:00 Room Air Nasal Cannula 04/30/17 11:15 36.6 94 20 113/56 (75) 97 Room Air Physical Exam: General- No acute distress, obese Head- atraumatic Eyes- PERRL, EOMI ENT- oropharynx clear Neck- supple, no JVD Lungs- clear to auscultation Heart- irregular rhythm Abdomen- normal bowel sounds, soft Genital- Posterior area scrotal skin ulcer, sipping blood, fool smelling, purple discoloration Extremities- Left 2nd toe necrosis, LE tenderness, b/l LE discoloration Neuro- alert, oriented x 3; PERRL, EOMI Skin- warm & dry Laboratory Results: Last 24 Hours Test 04/29/17 20:31 04/29/17 22:53 04/30/17 07:09 04/30/17 07:33 Bedside Glucose 154 mg/dl 131 mg/dl Lactic Acid Level 1.1 mmol/L White Blood Count 13.75 K/uL Red Blood Count 5.26 M/uL Hemoglobin 15.3 g/dL Hematocrit 46.0 % Mean Corpuscular Volume 87.5 fL Mean Corpuscular Hemoglobin 29.1 pg Mean Corpuscular Hemoglobin Concent 33.3 g/dl Platelet Count 214 K/uL Mean Platelet Volume 10.0 fL Neutrophils (%) (Auto) 81.6 % Lymphocytes (%) (Auto) 8.8 % Monocytes (%) (Auto) 5.5 % Eosinophils (%) (Auto) 3.5 % Basophils (%) (Auto) 0.2 % Neutrophils # (Auto) 11.23 K/uL Lymphocytes # (Auto) 1.21 K/uL Monocytes # (Auto) 0.75 K/uL Eosinophils # (Auto) 0.48 K/uL Basophils # (Auto) 0.03 K/uL RDW Standard Deviation 52.3 fL RDW Coefficient of Variation 16.4 % Immature Granulocyte % (Auto) 0.4 % Immature Granulocyte # (Auto) 0.05 K/uL Sodium Level 131 mmol/L Potassium Level 3.9 mmol/L Chloride Level 100 mmol/L Carbon Dioxide Level 23 mmol/L Anion Gap 8.0 mmol/L Blood Urea Nitrogen 21 mg/dl Creatinine 1.23 mg/dl Est Creatinine Clear Calc Drug Dose 75.1 ml/min Estimated GFR () 65.7 Estimated GFR (Non- 56.7 BUN/Creatinine Ratio 17.2 Random Glucose 140 mg/dl Calcium Level 8.4 mg/dl Test 04/30/17 11:40 04/30/17 16:02 Bedside Glucose 138 mg/dl 123 mg/dl Assessment & Plan SEPSIS Present with fever and chills associated with weakness On admission WBC, lactic acid and HR elevated with low grade fever Possible related to scrotal wound infection Received IV imipenem, Clinda and Vanco in the ER Blood cx pending unable to collect urine sample, and pt refused patiño cath due to the scrotal wound Procalcitonin elevated WBC trending down to 13K Lactic acid trending down to normal Continue IV zosyn and continue IV vanco Repeat lactic acid, check procalcitonin level Continue monitor CBC Scrotal hemangioma/wound Purple discoloration skin ulcer Daily wound care Wound care consulted L 2nd Toe Necrotic Possible Toe ischemic Xray of the L toes showed no evidence for bony destructive process. Soft tissue edema. Arterial doppler of LE showed no significant stenotic process of the left arterial structures. Moderate narrowing right posterior tibial artery with moderate to rather significant retrograde flow within the right dorsalis pedis artery. Consult vascular surgery DM Type 2 Hba1c 5.4 on 12/06 HBa1c pending hold metformin On insulin coverage Chronic Afib rate improved Coumadin discontinue last month by cardiology due to scrotum hemangioma bleeding Continue metoprolol and digoxin and aspirin Continue monitor in telemetry JUAN MANUEL Does not use a CPAP Stable BPH Continue finasteride Stable HTN On Lasix/metoprolol continue monitor BP Stable Back Pain On hydrocodone prn Will get a CT lumbar due to ongoing leg numbness DVT px SCD Due to scrotal hemangioma bleeding) High risk for DVT CODE STATUS FULL CODE Consultants: Vascular surgery Current Inpatient Medications: Current Inpatient Medications Medications (Trade) Dose Ordered Sig/Jakub Route Start Time Stop Time Status Last Admin Dose Admin Morphine Sulfate (MoRPHine SULFATE INJ) 4 mg ONE PRN IV 04/29/17 10:15 05/13/17 10:14 Aspirin (Ecotrin Tab) 81 mg DAILY PO 04/30/17 09:00 05/30/17 08:59 04/30/17 08:08 81 MG Digoxin (Lanoxin Tab) 0.125 mg DAILY@1600 PO 04/30/17 09:00 05/30/17 08:59 04/30/17 08:09 0.125 MG Docusate Sodium (coLACE CAP) 200 mg DAILY PO 04/30/17 09:00 05/30/17 08:59 04/30/17 08:08 200 MG Finasteride (Proscar Tab) 5 mg QAM PO 04/30/17 09:00 05/30/17 08:59 04/30/17 08:08 5 MG Furosemide (Lasix Tab) 20 mg QAM PO 04/30/17 09:00 05/30/17 08:59 04/30/17 08:09 20 MG Losartan Potassium (coZAAR TAB) 50 mg QAM PO 04/30/17 09:00 05/30/17 08:59 04/30/17 08:09 50 MG Metoprolol Succinate (Toprol Xl Tab) 200 mg QAM PO 04/30/17 09:00 05/30/17 08:59 04/30/17 08:08 200 MG Potassium Chloride (Klor-Con M10) 10 meq QAM PO 04/30/17 09:00 05/30/17 08:59 04/30/17 08:09 10 MEQ Vancomycin HCl 1750 mg/Sodium Chloride 535 ml @ 200 mls/hr Q12H IV 04/29/17 14:00 05/03/17 10:59 04/30/17 14:07 200 MLS/HR Insulin Aspart (novoLOG ASPART) SLIDING SCALE If C... ACHS SC 04/29/17 16:30 05/29/17 16:29 Glucose (Glucose 40% Gel) 15-30 GRAMS 15 GRAMS... UD PRN PO 04/29/17 12:45 05/29/17 12:44 Glucose (Glucose Chew Tab) 4-8 Tablets 4 Tabl... UD PRN PO 04/29/17 12:45 05/29/17 12:44 Dextrose (Dextrose 50% 50ML Syringe) 25-50ML OF 50% DW IV FOR... UD PRN IV 04/29/17 12:45 05/29/17 12:44 Glucagon (Glucagon Inj) 1 mg UD PRN SQ 04/29/17 12:45 05/29/17 12:44 Vancomycin HCl (Consult) 1 ea UD PRN N/A 04/29/17 13:45 05/01/17 10:59 Piperacillin Sod/ Tazobactam Sod 4.5 gm/Dextrose 120 ml @ 30 mls/hr Q8H IV 04/29/17 20:00 05/03/17 13:59 04/30/17 12:09 30 MLS/HR Piperacillin Sod/ Tazobactam Sod (Consult) 1 ea UD PRN N/A 04/29/17 14:00 05/01/17 13:59 Sodium Chloride 1,000 ml @ 80 mls/hr [id number] IV 04/29/17 20:15 05/29/17 20:14 04/30/17 08:08 80 MLS/HR Acetaminophen/ Hydrocodone Bitart ([place] 5/325 Tab) `1-2 tabs for pain 1 tab ... Q6 PRN PO 04/29/17 23:45 05/13/17 11:44 Hydromorphone HCl (Dilaudid Inj) 1 mg Q3H PRN IV 04/29/17 23:30 05/13/17 23:29 04/30/17 10:33 1 MG Enteral Nutritional Formula (Boost Glucose Control) 1 can DAILY PO 05/01/17 09:00 05/31/17 08:59
--- NOTE | 2017-04-30 18:52 | DIAGNOSTIC IMAGING REPORT ---
LUMBAR SPINE WITHOUT CT DOSE: 2328.72 mGy.cm HISTORY: Pain Back pain associated with LE numbness TECHNIQUE: Multiaxial CT images of the lumbar spine were performed and reformatted in the sagittal and coronal plane without the use of contrast. A dose lowering technique was utilized adhering to the principles of ALARA. COMPARISON: None. FINDINGS: Vertebral lies stature is unremarkable. There is moderate degenerative disc change throughout the entire lumbar region. This is most prominent at L4-L5 and L3-L4. Transaxial images show degenerative changes of the posterior horn. There is moderate narrowing of the spinal canal at L2-L3, L3-L4, more significantly at L4-L5, L5-S1 showing no major compromise. IMPRESSION: 1. Findings consistent with multilevel degenerative disc change at the entire lumbar region. 2. Moderate narrowing of the spinal canal at L2-L3, L3-L4, and most significantly at L4-L5. The above report was generated using voice recognition software. It may contain grammatical, syntax or spelling errors. Electronically signed by: Fidencio Slater M.D. 04/30/2017 6:51 PM Dictated Date/Time: 04/30/2017 6:49 PM
[2017-04-30 21:49] VITALS: BP 124/49; PULSE 109; TEMP 36.8; O2SAT 91
[2017-04-30 23:48] VITALS: BP 146/84; PULSE 105; TEMP 37.5; O2SAT 92
[2017-05-01] VITALS (10 sets, daily range): BP systolic 116–146; BP diastolic 57–75; PULSE 70–93; TEMP 36.5–37; O2SAT 92–98
[2017-05-01] MEDS ORDERED: LORAZEPAM 0.5 MG TAB PO ONE (00:30)
[2017-05-01] MEDS ORDERED: VANCOMYCIN TROUGH ONE (01:30)
[2017-05-01 01:41] LABS: URINE APPEARANCE CLEAR (CLEAR); URINE BILIRUBIN NEG (NEG); URINE COLOR YELLOW; URINE NITRITE NEG (NEG); URINE SPECIFIC GRAVITY 1.022 (1.000-1.030); UROBILINOGEN NEG (NEG); ZZUR CULT IF INDIC CLEAN CATCH YES
[2017-05-01 01:43] LABS: MANUAL MICROSCOPIC REQUIRED? NO; REVIEW REQ? NO
[2017-05-01] MEDS: VANCOMYCIN INJ 1,750 MG in SODIUM CHLORIDE 0.9% 500ML 500 ML IV SCH (02:46)
[2017-05-01] MEDS: HYDROmorphone INJ 1 MG/ML SYR IV PRN (04:19)
[2017-05-01] MEDS: PIPERACILL/TAZOBAC IV 4.5 GM in DEXTROSE 5% 100ML IV SCH ×2 (05:26→12:03)
[2017-05-01 06:07] LABS: HEMATOCRIT 39.2 % (42-52); MEAN CELL VOLUME 87.1 fL (80-100); MEAN CORPUSCULAR HEMOGLOBIN 29.3 pg (25-34); MEAN CORPUSCULAR HGB CONC 33.7 g/dl (32-36); MEAN PLATELET VOLUME 9.7 fL (7.4-10.4); PLATELET COUNT 225 K/uL (130-400); WHITE BLOOD COUNT 12.22 K/uL (4.8-10.8)
[2017-05-01 06:25] LABS: ESTIMATED AVERAGE GLUCOSE 171 mg/dl; HA1C FLAG Normal (Normal)
[2017-05-01 06:37] LABS: BUN/CREATININE RATIO 20.3 (10-20); CALCIUM 8.1 mg/dl (8.5-10.1); CREATININE 1.19 mg/dl (0.60-1.40); POTASSIUM 3.9 mmol/L (3.5-5.1)
[2017-05-01] MEDS: HYDROCODONE/ACETAMOPHEN 5/325MG TAB PO PRN ×3 (07:47→18:28)
[2017-05-01] MEDS: DOCUSATE SODIUM 100 MG CAP PO SCH (07:48)
[2017-05-01] MEDS: POTASSIUM CHLORIDE 10 MEQ TABCR PO SCH (07:49)
[2017-05-01] MEDS: LOSARTAN POTASSIUM 50 MG TAB PO SCH (07:49)
[2017-05-01] MEDS: FINASTERIDE 5 MG TAB PO SCH (07:49)
[2017-05-01] MEDS: ASPIRIN 81 MG ECTAB PO SCH (07:49)
[2017-05-01] MEDS: FUROSEMIDE 20 MG TAB PO SCH (07:50)
[2017-05-01] MEDS: METOPROLOL SUCC 50MG EXT REL TAB PO SCH (07:50)
[2017-05-01] MEDS: INSULIN ASPART 100 UNITS/ML 3 ML PEN SC SCH ×4 (07:54→21:00)
[2017-05-01] MEDS: BOOST GLUCOSE CONTROL PO SCH (09:00)
[2017-05-01] MEDS: SODIUM CHLORIDE 0.9% 1000ML 1,000 ML IV SCH (10:50)
[2017-05-01] MEDS ORDERED: NURSING VERBAL MED ORDER ONE (11:00)
--- NOTE | 2017-05-01 11:09 | Surgery Consultation ---
Consultation Date of Service May 01, 2017. (Tiffany Bautista, INGRID) Chief Complaint L 2nd toe discoloration (Tiffany Bautista PA-C) History of Present Illness The patient is a 76 year old male with multiple medical problems, including a fib not on anticoagulation, DMII, HTN, CKD, BPH, sen in consultation today for L 2nd toe discoloration which began about 2 weeks prior. P currently admitted with possible sepsis d/t scrotal wound. Pt denies known trauma to toe. States his toenail was black one day. Denies any pain or worsening of the toe. Admits scrotal ulceration for which he undergoes regular treatments. States he sees a senior technical support engineer regularly. Admits chronic back pain, and r foot pain. Denies MACKEY, fever, chills, chest pain, SOB, abd pain, N/V, rest pain, claudication, other complaints. US indicates mild diffuse disease without focal stenosis. (Tiffany Bautista, INGRID) Vitals Vital Signs Past 12 Hours Date Time Temp Pulse Resp B/P (MAP) Pulse Ox O2 Delivery O2 Flow Rate FiO2 05/01/17 07:18 37.0 81 20 135/75 (95) 92 Room Air 05/01/17 04:27 36.9 93 20 117/60 (79) 92 Room Air 05/01/17 04:00 Room Air 04/30/17 23:59 Room Air 04/30/17 23:48 37.5 105 20 146/84 (104) 92 Room Air (Tiffany Bautista, INGRID) Allergies Coded Allergies: Metronidazole (Verified Allergy, Severe, see below, 08/26/16) Last discharge summary indicates flagyl was stopped for possible temporal relation to foot drop that developed that admission. Amoxicillin (Verified Allergy, Intermediate, rash, 08/26/16) Home Medications Scheduled Aspirin (Aspirin Ec), 81 MG PO DAILY Digoxin (Digoxin), 0.125 MG PO QAM Docusate Sodium (Colace), 200 MG PO DAILY Ferrous Sulfate (Ferrous Sulfate), 325 MG PO BID Finasteride (Finasteride), 5 MG PO QAM Furosemide (Lasix), 20 MG PO QAM Losartan Potassium (Losartan Potassium), 50 MG PO QAM Metformin Hcl (Glucophage), 500 MG PO QAM Metoprolol Succinate (Toprol Xl), 200 MG PO QAM Potassium Chloride (Potassium Chloride Sr), 10 MEQ PO QAM Probiotic Product (Probiotic), 1 CAP PO BID Scheduled PRN Hydrocodone/Acetaminophen 5MG/325MG ([place] 5MG/325MG), 1 TABLET PO Q6 PRN for Pain Problem List Medical Problems: (1) ATRIAL FIBRILLATION (2) Barretts esophagus (3) BENIGN HYPERTENSION (4) Chronic a-fib (5) Chronic diastolic CHF (congestive heart failure) (6) DIAB RAMIN WO COMPL, TYPE II OR UNSPEC TYPE, NOT UNCNTRLD (7) DIVERTICULOSIS COLON (W/O MENT OF HEMORRHAGE) (8) Exertional dyspnea (9) Gastric ulcer with hemorrhage (10) HEMANGIOMA SKIN (11) History of Clostridium difficile (12) HYPERLIPIDEMIA NEC/NOS (13) HYPERTENSION NOS (14) HYPERTROPHY (BENIGN) OF PROSTATE W/O URINARY OBST & OTH LUTS (15) ICH (intracerebral hemorrhage) (16) Obesity, morbid, BMI 40.0-49.9 (17) JUAN MANUEL (obstructive sleep apnea) (18) Symptomatic anemia (19) Symptomatic anemia Surgical Problems: (1) History of total replacement of right hip (2) History of ureter stent (3) S/P cholecystectomy (4) S/p excision of perineal lesion (5) S/P tonsillectomy and adenoidectomy (6) S/p transcatheter ablation (Tiffany Bautista PA-C) Surgical / Medical History Hx Cardiac Surgery: Yes (S/p transcatheter ablation, embolization) Hx Abdominal Surgery: Yes (Cholecystectomy) Hx Cancer Surgery: No Hx Thoracic Surgery: No Hx Orthopedic: Yes (RTHA) Hx Urinary Tract Surgery: Yes (Cystocopy, Stent) HX Other Surgery: Yes (T & A) Past Medical/Surgical History: Diabetes, Heart Disease, High Cholesterol, Hypertension, Kidney Disease (Tiffany Bautista PA-C) Family History Diabetes mellitus SISTER (Tiffany Bautista PA-C) Diabetes mellitus SISTER (Bob Mar M.D.) Social History Smoking Status: Never Smoker Hx Tobacco Use In Past Year?: No Hx Alcohol Use - Type & Amnt: No Hx Substance Use -Type & Amnt: No (Minarchick,Tiffany D., PA-C) Review of Systems Constitutional: + malaise, No chills, No fever Skin: + change in color Eyes: No visual changes ENMT: No sore throat Respiratory: No cough, No SOW, No hemoptysis Cardiovascular: No chest pain, No palpitations, No syncope, No edema, No intermittent claudication Gastrointestinal: No abdominal pain, No nausea, No vomiting Musculoskeletal: + back pain Neurologic: + lethargy, + numbness (BLE d/t neuropathy), + tingling, No dizziness, No headache (Tiffany Bautista, PA-C) Physical Exam Constitutional: General Apperance: well-nourished, well-developed, obese (morbidly) Level of Distress: NAD Psychiatric: Mental Status: active & alert, normal mood, normal affect Orientation: oriented except where noted, to time, to place, to person Memory: recent memory normal, remote memory normal Head: normocephalic, atraumatic Eyes: EOM: EOMI ENMT: normal ENT inspection, hearing grossly normal Neck: supple, trachea midline Lungs: Respiratory effort: no dyspnea Auscultation: no wheezing, no rales/crackles, no rhonchi, decreased breath sounds Cardiovascular: Apical Impulse: not displaced Heart Auscultation: no rubs, no gallops, pertinent finding (irregular) Peripheral Pulses: Pulses: full and equal, in all extremities except if noted Bruits: none appreciated Carotid Pulse: normal on the left, normal on the right Brachial Pulses: normal on the left, normal on the right Radial Pulse: normal on the left, normal on the right Femoral Pulse: normal on the left, normal on the right Posterior Tibialis Pulse: pertinent finding (LLE +1, RLE +2) Dorsalis Pedis Pulse: pertinent finding (LLE +1, RLE +2) Abdomen: Bowel Sounds: normal Inspection & Palpation: soft, non-distended, no tenderness, guarding & rebound Musculoskeletal: normal strength (5/5 throughout), normal tone Extremities: Upper Right: no cyanosis, no edema, no varicosities Upper Left: no cyanosis, no edema, no varicosities Lower Right: no cyanosis, no edema, no varicosities Lower Left: no edema, no varicosities, pertinent finding (L 2nd toe, hammer toe noted. distal tip with hard callous, medial side with black scab, dorsal toe with mild erythema, no warmth. Toe dry. brisk cap refill to toe. Toenail black. No odor.) Neurologic: Cranial Nerves: grossly intact (Tiffany Bautista, PA-C) Assessment and Plan ASSESSMENT and PLAN: L 2nd toe wound Mild PAD Pt toe does not have classic embolization appearance and caused pt no pain. No sign of infection presently and tissue refills nicely. Discussed with Dr Mar, recommends local wound care to prevent infection until completely healed. Pulses palpable. No indications for vascular surgical intervention at this time. Please call if needed. (Tiffany Bautista, PA-C) Agree with exam and treatment plan of the Vascular PA. Thank you very much for letting me participate in the care of this patient. (Bob Mar M.D.)
[2017-05-01] MEDS: DIGOXIN 0.125 MG TAB PO SCH (16:14)
[2017-05-01] MEDS: CEPHALEXIN MONOHYDRATE 500 MG CAP PO SCH ×2 (16:15→21:53)
--- NOTE | 2017-05-01 17:46 | Progress Note ---
Medicine Progress Note Date & Time of Visit: May 01, 2017 at 13:26. Subjective Pt was seen and examined Sitting in chair comfortable with no distress with present Pt said that he feels much better He said that the pain and the numbness much better His strength is getting better said that she is unable to care for him Pt has a difficult time to transfer from bed to chair Denies any chest pain, palpitation, dizziness and SOB Objective Last 8 Hrs Date Time Temp Pulse Resp B/P (MAP) Pulse Ox O2 Delivery O2 Flow Rate FiO2 05/01/17 16:23 98 Room Air 05/01/17 16:14 77 05/01/17 16:00 94 Room Air 05/01/17 15:07 36.5 78 20 141/65 (90) 94 Room Air 05/01/17 12:00 93 Room Air 05/01/17 10:55 36.9 70 20 116/57 (76) 95 Room Air Physical Exam: General- No acute distress, obese Head- atraumatic Eyes- PERRL, EOMI ENT- oropharynx clear Neck- supple, no JVD Lungs- clear to auscultation Heart- irregular rhythm Abdomen- normal bowel sounds, soft Genital- Posterior area scrotal skin ulcer, sipping blood, fool smelling, purple discoloration Extremities- Left 2nd toe necrosis, LE tenderness, b/l LE discoloration Neuro- alert, oriented x 3; PERRL, EOMI Skin- warm & dry Laboratory Results: Last 24 Hours Test 04/30/17 21:30 05/01/17 01:14 05/01/17 01:20 05/01/17 05:35 Bedside Glucose 105 mg/dl Vancomycin Level Trough 22.9 mcg/ml Urine Color YELLOW Urine Appearance CLEAR Urine pH 5.0 Urine Specific [place] 1.022 Urine Protein 1+ Urine Glucose (UA) NEG Urine Ketones NEG Urine Occult Blood NEG Urine Nitrite NEG Urine Bilirubin NEG Urine Urobilinogen NEG Urine Leukocyte Esterase SMALL Urine WBC (Auto) 10-30 /hpf Urine RBC (Auto) 10-30 /hpf Urine Hyaline Casts (Auto) 1-5 /lpf Urine Epithelial Cells (Auto) 10-20 /lpf Urine Bacteria (Auto) NEG White Blood Count 12.22 K/uL Red Blood Count 4.50 M/uL Hemoglobin 13.2 g/dL Hematocrit 39.2 % Mean Corpuscular Volume 87.1 fL Mean Corpuscular Hemoglobin 29.3 pg Mean Corpuscular Hemoglobin Concent 33.7 g/dl RDW Standard Deviation 52.2 fL RDW Coefficient of Variation 16.4 % Platelet Count 225 K/uL Mean Platelet Volume 9.7 fL Sodium Level 133 mmol/L Potassium Level 3.9 mmol/L Chloride Level 103 mmol/L Carbon Dioxide Level 22 mmol/L Anion Gap 8.0 mmol/L Blood Urea Nitrogen 24 mg/dl Creatinine 1.19 mg/dl Est Creatinine Clear Calc Drug Dose 78.2 ml/min Estimated GFR () 68.4 Estimated GFR (Non- 59.0 BUN/Creatinine Ratio 20.3 Random Glucose 137 mg/dl Calcium Level 8.1 mg/dl Test 05/01/17 06:37 05/01/17 10:55 05/01/17 16:41 Bedside Glucose 145 mg/dl 153 mg/dl 121 mg/dl Date/Time Source Procedure Growth Status 05/01/17 01:20 Urine , Clean Catch Urine Culture Pending Received Assessment & Plan SEPSIS Present with fever and chills associated with weakness On admission WBC, lactic acid and HR elevated with low grade fever Possible related to scrotal wound infection Received IV imipenem, Clinda and Vanco in the ER Preliminary Blood cx no growth so far unable to collect urine sample, and pt refused patiño cath due to the scrotal wound Procalcitonin elevated WBC trending down to 13K-->.12K Lactic acid trending down to normal Was On IV zosyn and IV vanco Changed abx to keflex Continue monitor CBC Scrotal hemangioma/wound Purple discoloration skin ulcer Daily wound care Wound care consulted L 2nd Toe Necrotic Possible Toe ischemic Xray of the L toes showed no evidence for bony destructive process. Soft tissue edema. Arterial doppler of LE showed no significant stenotic process of the left arterial structures. Moderate narrowing right posterior tibial artery with moderate to rather significant retrograde flow within the right dorsalis pedis artery. Vascular consulted Recommended local wound care to prevent infection until completely healed. No surgical intervention DM Type 2 Hba1c 5.4 on 12/06 HBa1c pending hold metformin On insulin coverage Chronic Afib rate improved Coumadin discontinue last month by cardiology due to scrotum hemangioma bleeding Continue metoprolol and digoxin and aspirin Continue monitor in telemetry Ambulatory dysfunction Continue PT/OT Fall precaution Consider rehab JUAN MANUEL Does not use a CPAP Stable BPH Continue finasteride Stable HTN On Lasix/metoprolol continue monitor BP Stable Back Pain On hydrocodone prn CT lumbar showed multilevel degenerative disc change at the entire lumbar region.Moderate narrowing of the spinal canal at L2-L3, L3-L4, and most significantly at L4-L5. DVT px SCD (Due to scrotal hemangioma bleeding) High risk for DVT CODE STATUS FULL CODE DISPOSITION Will need placement to rehab said that she is unable to care for the patient Will consult case management Consultants: Vascular surgery Current Inpatient Medications: Current Inpatient Medications Medications (Trade) Dose Ordered Sig/Jakub Route Start Time Stop Time Status Last Admin Dose Admin Morphine Sulfate (MoRPHine SULFATE INJ) 4 mg ONE PRN IV 04/29/17 10:15 05/13/17 10:14 Aspirin (Ecotrin Tab) 81 mg DAILY PO 04/30/17 09:00 05/30/17 08:59 05/01/17 07:49 81 MG Digoxin (Lanoxin Tab) 0.125 mg DAILY@1600 PO 04/30/17 09:00 05/30/17 08:59 05/01/17 16:14 0.125 MG Docusate Sodium (coLACE CAP) 200 mg DAILY PO 04/30/17 09:00 05/30/17 08:59 05/01/17 07:48 200 MG Finasteride (Proscar Tab) 5 mg QAM PO 04/30/17 09:00 05/30/17 08:59 05/01/17 07:49 5 MG Furosemide (Lasix Tab) 20 mg QAM PO 04/30/17 09:00 05/30/17 08:59 05/01/17 07:50 20 MG Losartan Potassium (coZAAR TAB) 50 mg QAM PO 04/30/17 09:00 05/30/17 08:59 05/01/17 07:49 50 MG Metoprolol Succinate (Toprol Xl Tab) 200 mg QAM PO 04/30/17 09:00 05/30/17 08:59 05/01/17 07:50 200 MG Potassium Chloride (Klor-Con M10) 10 meq QAM PO 04/30/17 09:00 05/30/17 08:59 05/01/17 07:49 10 MEQ Insulin Aspart (novoLOG ASPART) SLIDING SCALE If C... ACHS SC 04/29/17 16:30 05/29/17 16:29 05/01/17 12:01 4 UNITS Glucose (Glucose 40% Gel) 15-30 GRAMS 15 GRAMS... UD PRN PO 04/29/17 12:45 05/29/17 12:44 Glucose (Glucose Chew Tab) 4-8 Tablets 4 Tabl... UD PRN PO 04/29/17 12:45 05/29/17 12:44 Dextrose (Dextrose 50% 50ML Syringe) 25-50ML OF 50% DW IV FOR... UD PRN IV 04/29/17 12:45 05/29/17 12:44 Glucagon (Glucagon Inj) 1 mg UD PRN SQ 04/29/17 12:45 05/29/17 12:44 Sodium Chloride 1,000 ml @ 80 mls/hr [id number] IV 04/29/17 20:15 05/29/17 20:14 05/01/17 10:50 80 MLS/HR Acetaminophen/ Hydrocodone Bitart ([place] 5/325 Tab) `1-2 tabs for pain 1 tab ... Q6 PRN PO 04/29/17 23:45 05/13/17 11:44 05/01/17 11:21 1 TAB Enteral Nutritional Formula (Boost Glucose Control) 1 can DAILY PO 05/01/17 09:00 05/31/17 08:59 05/01/17 09:00 1 CAN Cephalexin Monohydrate (Keflex Cap) 500 mg QID PO 05/01/17 17:00 05/05/17 23:59 05/01/17 16:15 500 MG
[2017-05-01] MEDS: LORAZEPAM 0.5 MG TAB PO PRN (21:53)
[2017-05-02] MEDS: HYDROCODONE/ACETAMOPHEN 5/325MG TAB PO PRN ×3 (03:32→15:20)
[2017-05-02 04:00] VITALS: BP 163/76; PULSE 93; TEMP 37.1; O2SAT 93
[2017-05-02 06:01] LABS: HEMATOCRIT 38.9 % (42-52); MEAN CELL VOLUME 88.2 fL (80-100); MEAN CORPUSCULAR HEMOGLOBIN 28.8 pg (25-34); MEAN CORPUSCULAR HGB CONC 32.6 g/dl (32-36); MEAN PLATELET VOLUME 9.9 fL (7.4-10.4); PLATELET COUNT 254 K/uL (130-400); RED BLOOD COUNT 4.41 M/uL (4.7-6.1); WHITE BLOOD COUNT 11.32 K/uL (4.8-10.8)
[2017-05-02 06:39] LABS: BUN/CREATININE RATIO 22.5 (10-20); CALCIUM 8.2 mg/dl (8.5-10.1); CREATININE 1.02 mg/dl (0.60-1.40)
[2017-05-02 07:59] VITALS: BP 141/74; PULSE 84; TEMP 36.5; O2SAT 96
[2017-05-02] MEDS: BOOST GLUCOSE CONTROL PO SCH (09:00)
[2017-05-02] MEDS: DOCUSATE SODIUM 100 MG CAP PO SCH (09:23)
[2017-05-02] MEDS: LOSARTAN POTASSIUM 50 MG TAB PO SCH (09:24)
[2017-05-02] MEDS: CEPHALEXIN MONOHYDRATE 500 MG CAP PO SCH ×4 (09:24→21:32)
[2017-05-02] MEDS: METOPROLOL SUCC 50MG EXT REL TAB PO SCH (09:24)
[2017-05-02] MEDS: ASPIRIN 81 MG ECTAB PO SCH (09:25)
[2017-05-02] MEDS: FUROSEMIDE 20 MG TAB PO SCH (09:25)
[2017-05-02] MEDS: POTASSIUM CHLORIDE 10 MEQ TABCR PO SCH (09:25)
[2017-05-02] MEDS: FINASTERIDE 5 MG TAB PO SCH (09:26)
[2017-05-02] MEDS: INSULIN ASPART 100 UNITS/ML 3 ML PEN SC SCH ×4 (09:30→21:00)
--- NOTE | 2017-05-02 10:35 | Progress Note ---
Medicine Progress Note Date & Time of Visit: May 02, 2017 at 10:26. Subjective patient seen resting in bed, in good spirits states he feels improved today denies pain in the scrotum states right leg/foot pain has been improving, still feels weak on that leg while walking (started since leg became swollen and painful) denies other symptoms Objective Last 8 Hrs Date Time Temp Pulse Resp B/P (MAP) Pulse Ox O2 Delivery O2 Flow Rate FiO2 05/02/17 07:59 36.5 84 18 141/74 (96) 96 05/02/17 04:00 37.1 93 22 163/76 (105) 93 Room Air 05/02/17 04:00 Room Air Physical Exam: General- oriented x 3, not in distress, speaks in sentences with no effort Head- atraumatic Eyes- EOMI, anicteric ENT- oropharynx clear Neck- supple, no JVD, no adenopathy, no thyromegaly Lungs- clear breath sounds bilaterally Heart- regular rhythm; no murmur, normal rate Abdomen- normal bowel sounds, soft, nontender Extremities- moderate right lower leg edema, moderate warmth, mild erythema, mild tenderness extending to the ankle, hind foot region , no calf tenderness; peripheral pulses intact Neuro- alert, oriented x 3; no gross focal deficits Skin- warm & dry Laboratory Results: Last 24 Hours Test 05/01/17 10:55 05/01/17 16:41 05/01/17 20:17 05/02/17 05:31 Bedside Glucose 153 mg/dl 121 mg/dl 160 mg/dl White Blood Count 11.32 K/uL Red Blood Count 4.41 M/uL Hemoglobin 12.7 g/dL Hematocrit 38.9 % Mean Corpuscular Volume 88.2 fL Mean Corpuscular Hemoglobin 28.8 pg Mean Corpuscular Hemoglobin Concent 32.6 g/dl RDW Standard Deviation 53.6 fL RDW Coefficient of Variation 16.6 % Platelet Count 254 K/uL Mean Platelet Volume 9.9 fL Sodium Level 135 mmol/L Potassium Level 4.0 mmol/L Chloride Level 106 mmol/L Carbon Dioxide Level 19 mmol/L Anion Gap 10.0 mmol/L Blood Urea Nitrogen 23 mg/dl Creatinine 1.02 mg/dl Est Creatinine Clear Calc Drug Dose 90.6 ml/min Estimated GFR () 82.4 Estimated GFR (Non- 71.1 BUN/Creatinine Ratio 22.5 Random Glucose 174 mg/dl Calcium Level 8.2 mg/dl Test 05/02/17 06:58 Bedside Glucose 176 mg/dl Assessment & Plan 76 male with history of Scrotal Hematoma, A fib, DM, HTN, JUAN MANUEL presenting with fever/chills, weakness. SEPSIS secondary to SCROTAL WOUND INFECTION RIGHT LEG CELLULITIS On admission WBC, lactic acid and HR elevated with low grade fever Possible related to scrotal wound infection Received IV imipenem, Clinda and Vanco in the ER, continue on Vancomycin and Zosyn X 3 days, then transitioned to PO Cephalexin Day 2 cultures: blood: negative urine: unable to obtain sample - improving overall only on Cephalexin PO Day 2 will consult ID - wound care service consulted 2nd Toe Necrotic Possible Toe ischemic Xray of the L toes showed no evidence for bony destructive process. Soft tissue edema. Arterial doppler of LE showed no significant stenotic process of the left arterial structures. Moderate narrowing right posterior tibial artery with moderate to rather significant retrograde flow within the right dorsalis pedis artery. Vascular consulted Recommended local wound care to prevent infection until completely healed. No surgical intervention DM Type 2 Hba1c 5.4 on 12/06 HBa1c pending hold metformin On insulin coverage Chronic Afib rate improved Coumadin discontinue last month by cardiology due to scrotum hemangioma bleeding Continue metoprolol and digoxin and aspirin Continue monitor in telemetry Ambulatory dysfunction Continue PT/OT Fall precaution JUAN MANUEL Does not use a CPAP Stable BPH Continue finasteride Stable HTN On Lasix/metoprolol continue monitor BP Stable Back Pain On hydrocodone prn CT lumbar showed multilevel degenerative disc change at the entire lumbar region.Moderate narrowing of the spinal canal at L2-L3, L3-L4, and most significantly at L4-L5. DVT px SCD (Due to scrotal hemangioma bleeding) High risk for DVT CODE STATUS FULL CODE Dispo anticipate d/c to Rehab when medically stable Consultants: Vascular surgery Current Inpatient Medications: Current Inpatient Medications Medications (Trade) Dose Ordered Sig/Jakub Route Start Time Stop Time Status Last Admin Dose Admin Aspirin (Ecotrin Tab) 81 mg DAILY PO 04/30/17 09:00 05/30/17 08:59 05/02/17 09:25 81 MG Digoxin (Lanoxin Tab) 0.125 mg DAILY@1600 PO 04/30/17 09:00 05/30/17 08:59 05/01/17 16:14 0.125 MG Docusate Sodium (coLACE CAP) 200 mg DAILY PO 04/30/17 09:00 05/30/17 08:59 05/02/17 09:23 200 MG Finasteride (Proscar Tab) 5 mg QAM PO 04/30/17 09:00 05/30/17 08:59 05/02/17 09:26 5 MG Furosemide (Lasix Tab) 20 mg QAM PO 04/30/17 09:00 05/30/17 08:59 05/02/17 09:25 20 MG Losartan Potassium (coZAAR TAB) 50 mg QAM PO 04/30/17 09:00 05/30/17 08:59 05/02/17 09:24 50 MG Metoprolol Succinate (Toprol Xl Tab) 200 mg QAM PO 04/30/17 09:00 05/30/17 08:59 05/02/17 09:24 200 MG Potassium Chloride (Klor-Con M10) 10 meq QAM PO 04/30/17 09:00 05/30/17 08:59 05/02/17 09:25 10 MEQ Insulin Aspart (novoLOG ASPART) SLIDING SCALE If C... ACHS SC 04/29/17 16:30 05/29/17 16:29 05/02/17 09:30 3 UNITS Glucose (Glucose 40% Gel) 15-30 GRAMS 15 GRAMS... UD PRN PO 04/29/17 12:45 05/29/17 12:44 Glucose (Glucose Chew Tab) 4-8 Tablets 4 Tabl... UD PRN PO 04/29/17 12:45 05/29/17 12:44 Dextrose (Dextrose 50% 50ML Syringe) 25-50ML OF 50% DW IV FOR... UD PRN IV 04/29/17 12:45 05/29/17 12:44 Glucagon (Glucagon Inj) 1 mg UD PRN SQ 04/29/17 12:45 05/29/17 12:44 Acetaminophen/ Hydrocodone Bitart ([place] 5/325 Tab) `1-2 tabs for pain 1 tab ... Q6 PRN PO 04/29/17 23:45 05/13/17 11:44 05/02/17 09:23 2 TAB Enteral Nutritional Formula (Boost Glucose Control) 1 can DAILY PO 05/01/17 09:00 05/31/17 08:59 05/01/17 09:00 1 CAN Cephalexin Monohydrate (Keflex Cap) 500 mg QID PO 05/01/17 17:00 05/05/17 23:59 05/02/17 09:24 500 MG Lorazepam (Ativan Tab) 0.25 mg HS PRN PO 05/01/17 20:30 05/31/17 20:29 05/01/17 21:53 0.25 MG
[2017-05-02] MEDS ORDERED: ARTIFICIAL TEARS OP SOLN OP PRN ×2 (10:45)
--- NOTE | 2017-05-02 10:49 | Medical Consult ---
Consultation Date of Consultation: May 02, 2017. Attending Physician: Ramón Shields MD Reason for Consultation: Scrotal ulcer, right leg and foot cellulitis History of Present Illness 76-year-old male with history of atrial fibrillation, diabetes mellitus, morbid obesity, chronic scrotal ulcerations with history of hematomas and varicocele repairs, who was admitted with 2 day history of severe pain in his right leg and foot with fever to 102 degrees and chills. Also with some increase in bloody drainage from scrotal area. He was also found to have necrotic looking distal left 2nd toe. He has been treated with combination of vancomycin and Zosyn for several days, then just transition to oral cephalexin. Has been feeling somewhat improved. Leg pain better, now 2/10 in intensity. Scrotal drainage less, patient states discomfort at baseline. Has remained afebrile. White count slowly decreasing. Ultrasound shows no evidence of DVT. X-ray of the toe, read by me, shows no evidence of osteomyelitis. Has been seen by vascular surgery and no further intervention planned. Past Medical/Surgical History Medical Problems: (1) Acquired buried penis Status: Acute (2) Anticoagulated on warfarin Status: Acute (3) Fever Status: Acute (4) Scrotal bleeding Status: Acute (5) Scrotal infection Status: Acute (6) Testicular mass Status: Acute (7) Urinary retention Status: Acute Medical Problems: (1) ATRIAL FIBRILLATION (2) Barretts esophagus (3) BENIGN HYPERTENSION (4) Chronic a-fib (5) Chronic diastolic CHF (congestive heart failure) (6) DIAB RAMIN WO COMPL, TYPE II OR UNSPEC TYPE, NOT UNCNTRLD (7) DIVERTICULOSIS COLON (W/O MENT OF HEMORRHAGE) (8) Exertional dyspnea (9) Gastric ulcer with hemorrhage (10) HEMANGIOMA SKIN (11) History of Clostridium difficile (12) HYPERLIPIDEMIA NEC/NOS (13) HYPERTENSION NOS (14) HYPERTROPHY (BENIGN) OF PROSTATE W/O URINARY OBST & OTH LUTS (15) ICH (intracerebral hemorrhage) (16) Obesity, morbid, BMI 40.0-49.9 (17) JUAN MANUEL (obstructive sleep apnea) (18) Symptomatic anemia (19) Symptomatic anemia Surgical Problems: (1) History of total replacement of right hip (2) History of ureter stent (3) S/P cholecystectomy (4) S/p excision of perineal lesion (5) S/P tonsillectomy and adenoidectomy (6) S/p transcatheter ablation Family History Diabetes mellitus SISTER Social History Smoking Status: Never Smoker Drug Use: none Marital Status: Housing Status: lives with family Occupation Status: retired Allergies Coded Allergies: Metronidazole (Verified Allergy, Severe, see below, 08/26/16) Last discharge summary indicates flagyl was stopped for possible temporal relation to foot drop that developed that admission. Amoxicillin (Verified Allergy, Intermediate, rash, 08/26/16) Current Inpatient Medications Current Inpatient Medications Medications (Trade) Dose Ordered Sig/Jakub Route Start Time Stop Time Status Last Admin Dose Admin Aspirin (Ecotrin Tab) 81 mg DAILY PO 04/30/17 09:00 05/30/17 08:59 05/02/17 09:25 81 MG Digoxin (Lanoxin Tab) 0.125 mg DAILY@1600 PO 04/30/17 09:00 05/30/17 08:59 05/01/17 16:14 0.125 MG Docusate Sodium (coLACE CAP) 200 mg DAILY PO 04/30/17 09:00 05/30/17 08:59 05/02/17 09:23 200 MG Finasteride (Proscar Tab) 5 mg QAM PO 04/30/17 09:00 05/30/17 08:59 05/02/17 09:26 5 MG Furosemide (Lasix Tab) 20 mg QAM PO 04/30/17 09:00 05/30/17 08:59 05/02/17 09:25 20 MG Losartan Potassium (coZAAR TAB) 50 mg QAM PO 04/30/17 09:00 05/30/17 08:59 05/02/17 09:24 50 MG Metoprolol Succinate (Toprol Xl Tab) 200 mg QAM PO 04/30/17 09:00 05/30/17 08:59 05/02/17 09:24 200 MG Potassium Chloride (Klor-Con M10) 10 meq QAM PO 04/30/17 09:00 05/30/17 08:59 05/02/17 09:25 10 MEQ Insulin Aspart (novoLOG ASPART) SLIDING SCALE If C... ACHS SC 04/29/17 16:30 05/29/17 16:29 05/02/17 09:30 3 UNITS Glucose (Glucose 40% Gel) 15-30 GRAMS 15 GRAMS... UD PRN PO 04/29/17 12:45 05/29/17 12:44 Glucose (Glucose Chew Tab) 4-8 Tablets 4 Tabl... UD PRN PO 04/29/17 12:45 05/29/17 12:44 Dextrose (Dextrose 50% 50ML Syringe) 25-50ML OF 50% DW IV FOR... UD PRN IV 04/29/17 12:45 05/29/17 12:44 Glucagon (Glucagon Inj) 1 mg UD PRN SQ 04/29/17 12:45 05/29/17 12:44 Acetaminophen/ Hydrocodone Bitart ([place] 5/325 Tab) `1-2 tabs for pain 1 tab ... Q6 PRN PO 04/29/17 23:45 05/13/17 11:44 05/02/17 09:23 2 TAB Enteral Nutritional Formula (Boost Glucose Control) 1 can DAILY PO 05/01/17 09:00 05/31/17 08:59 05/01/17 09:00 1 CAN Cephalexin Monohydrate (Keflex Cap) 500 mg QID PO 05/01/17 17:00 05/05/17 23:59 05/02/17 09:24 500 MG Lorazepam (Ativan Tab) 0.25 mg HS PRN PO 05/01/17 20:30 05/31/17 20:29 05/01/17 21:53 0.25 MG Artificial Tears (Artificial Tears) 1 drops Q2H PRN OP 05/02/17 10:45 06/01/17 10:44 UNV Review of Systems All systems were reviewed and are negative except as per HPI Physical Exam Date Time Temp Pulse Resp B/P (MAP) Pulse Ox O2 Delivery O2 Flow Rate FiO2 05/02/17 07:59 36.5 84 18 141/74 (96) 96 05/02/17 04:00 37.1 93 22 163/76 (105) 93 Room Air 05/02/17 04:00 Room Air 05/01/17 23:59 Room Air 05/01/17 23:40 36.8 87 22 146/68 (94) 93 Room Air 05/01/17 20:00 Room Air 05/01/17 19:30 36.8 88 20 123/74 (90) 94 Room Air 05/01/17 16:23 98 Room Air 05/01/17 16:14 77 05/01/17 16:00 94 Room Air 05/01/17 15:07 36.5 78 20 141/65 (90) 94 Room Air 05/01/17 12:00 93 Room Air 05/01/17 10:55 36.9 70 20 116/57 (76) 95 Room Air General Appearance: WD/WN, no apparent distress, + obese Head: normocephalic, atraumatic Eyes: normal inspection, EOMI, sclerae normal ENT: normal ENT inspection, hearing grossly normal, pharynx normal Neck: supple, no adenopathy, thyroid normal, trachea midline Respiratory/Chest: chest non-tender, lungs clear, normal breath sounds, no respiratory distress Cardiovascular: no gallop, no murmur, + irregularly irregular Abdomen/GI: normal bowel sounds, non tender, soft, no organomegaly Genitourinary - Male: + pertinent finding ( scrotal ulcerations, little erythema, small amount of bloody drainage) Back: normal inspection, no CVA tenderness Extremities/Musculoskelatal: no calf tenderness, + pertinent finding ( mild right leg swelling and increased warmth) Neurologic/Psych: alert, normal mood/affect, oriented x 3 Skin: normal color, no rash, + pertinent finding ( mild right ankle and foot erythema and tenderness) Lymphatic: + axillary node abnormality Laboratory Results RUN DATE: 05/01/17 [facility] PAGE 1 RUN TIME: 719 Specimen Inquiry PATIENT: [facility] #: [id number] LOC: [facility] # : [id number] AGE/SX: 76/M ROOM: E204 REG : 04/29/[address]: Nacho Ochoa M.D. : 1940 BED: 1 DIS : STATUS: ADM IN TLOC: SPEC #: [id number] AVANI: 04/29/17 STATUS: RES REQ #: [id number] RECD: 04/29/[address]: Hailey Bryan MD SOURCE: BLOOD ENTR: 04/29/17 [facility] DR: Donte Szymanski , D.OYulissa SPDESC: Mushtaq Martin M.D. ORDERED: BLOOD CULTURE Procedure Result Verified Site BLD CULT Preliminary 05/01/17 NO GROWTH TO DATE. Last 24 Hours Test 05/01/17 10:55 05/01/17 16:41 05/01/17 20:17 05/02/17 05:31 Bedside Glucose 153 mg/dl 121 mg/dl 160 mg/dl White Blood Count 11.32 K/uL Red Blood Count 4.41 M/uL Hemoglobin 12.7 g/dL Hematocrit 38.9 % Mean Corpuscular Volume 88.2 fL Mean Corpuscular Hemoglobin 28.8 pg Mean Corpuscular Hemoglobin Concent 32.6 g/dl RDW Standard Deviation 53.6 fL RDW Coefficient of Variation 16.6 % Platelet Count 254 K/uL Mean Platelet Volume 9.9 fL Sodium Level 135 mmol/L Potassium Level 4.0 mmol/L Chloride Level 106 mmol/L Carbon Dioxide Level 19 mmol/L Anion Gap 10.0 mmol/L Blood Urea Nitrogen 23 mg/dl Creatinine 1.02 mg/dl Est Creatinine Clear Calc Drug Dose 90.6 ml/min Estimated GFR () 82.4 Estimated GFR (Non- 71.1 BUN/Creatinine Ratio 22.5 Random Glucose 174 mg/dl Calcium Level 8.2 mg/dl Test 05/02/17 06:58 Bedside Glucose 176 mg/dl L TOE(S) MIN 2 VIEWS CLINICAL HISTORY: left toe necrotic infection COMPARISON: None. DISCUSSION: Limited study as the patient could not be positioned. Visibility base proximal phalanx is limited. Generalized degenerative change. Moderate soft tissue edema. No well-defined bony destructive process. IMPRESSION: Limited study showing no evidence for bony destructive process. Soft tissue edema. The above report was generated using voice recognition software. It may contain grammatical, syntax or spelling errors. Electronically signed by: Fidencio Slater M.D. 04/29/2017 12:40 PM Assessment & Plan 76-year-old male with diabetes mellitus with chronic scrotal ulcerations admitted with right lower extremity cellulitis and possible worsening scrotal infection. Patient appears to be clinically improving, and would recommend continuation of oral antibiotics. as continues to improve on cephalexin, would continue this antibiotic, likely to complete at least 14 days of therapy. Will follow.
[2017-05-02 11:21] VITALS: BP 137/68; PULSE 83; TEMP 36.5; O2SAT 91
--- NOTE | 2017-05-02 14:10 | DIAGNOSTIC IMAGING REPORT ---
ULTRASOUND R VENOUS DOPP LOWER EXT UNILAT CLINICAL HISTORY: Right leg swelling COMPARISON STUDY: No previous studies for comparison. FINDINGS: Real-time and color flow Doppler imaging were performed. Flow was seen within the femoral, popliteal and calf veins with no intraluminal thrombus demonstrated. The saphenous vein is patent. IMPRESSION: No evidence of right lower extremity DVT. Electronically signed by: Esau Rosa M.D. 05/02/2017 2:09 PM Dictated Date/Time: 05/02/2017 2:08 PM
[2017-05-02] MEDS: DIGOXIN 0.125 MG TAB PO SCH (15:39)
[2017-05-02 16:16] VITALS: BP 150/73; PULSE 77; TEMP 36.3; O2SAT 94
[2017-05-02 19:21] VITALS: BP 156/76; PULSE 80; TEMP 36.5; O2SAT 92
[2017-05-02] MEDS: LORAZEPAM 0.5 MG TAB PO PRN (21:57)
[2017-05-02 23:40] VITALS: BP 157/90; PULSE 79; TEMP 36.8; O2SAT 95
[2017-05-03] VITALS (10 sets, daily range): BP systolic 116–194; BP diastolic 72–100; PULSE 86–89; TEMP 36.4–37; O2SAT 92–93
[2017-05-03] MEDS: HYDROCODONE/ACETAMOPHEN 5/325MG TAB PO PRN ×4 (00:32→21:30)
[2017-05-03] MEDS: RASPBERRY SYRUP 5 ML UDP PO SCH ×5 (02:32→20:38)
[2017-05-03] MEDS: VANCOMYCIN HCL 125 MG/2.5ML SOLN PO SCH ×5 (02:32→20:38)
[2017-05-03] MEDS: INSULIN ASPART 100 UNITS/ML 3 ML PEN SC SCH ×4 (08:03→20:43)
[2017-05-03] MEDS: METOPROLOL SUCC 50MG EXT REL TAB PO SCH (08:04)
[2017-05-03] MEDS: LOSARTAN POTASSIUM 50 MG TAB PO SCH (08:04)
[2017-05-03] MEDS: CEPHALEXIN MONOHYDRATE 500 MG CAP PO SCH ×4 (08:04→20:37)
[2017-05-03] MEDS: FUROSEMIDE 20 MG TAB PO SCH (08:05)
[2017-05-03] MEDS: FINASTERIDE 5 MG TAB PO SCH (08:05)
[2017-05-03] MEDS: ASPIRIN 81 MG ECTAB PO SCH (08:05)
[2017-05-03] MEDS: POTASSIUM CHLORIDE 10 MEQ TABCR PO SCH (08:05)
[2017-05-03] MEDS: DOCUSATE SODIUM 100 MG CAP PO SCH (08:10)
[2017-05-03] MEDS: BOOST GLUCOSE CONTROL PO SCH (09:00)
[2017-05-03] MEDS: DIGOXIN 0.125 MG TAB PO SCH (15:29)
--- NOTE | 2017-05-03 18:20 | Progress Note ---
Medicine Progress Note Date & Time of Visit: May 03, 2017 at 17:44. Subjective patient seen resting in bed, comfortable states he feels improved today less diarrhea, about 2-3 pasty stools no abdominal pain no scrotal pain still has some pain on the right lower leg no other symptoms Objective Last 8 Hrs Date Time Temp Pulse Resp B/P (MAP) Pulse Ox O2 Delivery O2 Flow Rate FiO2 05/03/17 16:27 36.4 86 18 93 05/03/17 16:20 36.4 86 18 173/93 (119) 93 Room Air 05/03/17 16:00 92 Room Air 05/03/17 15:29 86 05/03/17 12:00 92 Room Air 05/03/17 11:42 36.5 87 18 116/72 (87) 92 Room Air 05/03/17 11:04 89 92 Physical Exam: General- oriented x 3, not in distress, speaks in sentences with no effort Eyes- anicteric Neck- no JVD Lungs- clear breath sounds Bl no rales/wheezes Heart- regular rhythm; no murmur, normal rate Abdomen- normal bowel sounds, soft, nontender Extremities- mild right lower leg edema, mild warmth, mild erythema, no tenderness extending to the ankle, hind foot region , no calf tenderness; peripheral pulses intact Neuro- alert, oriented x 3; no gross focal deficits Skin- warm & dry Laboratory Results: Last 24 Hours Test 05/02/17 20:15 05/03/17 06:35 05/03/17 11:27 05/03/17 16:31 Bedside Glucose 125 mg/dl 136 mg/dl 145 mg/dl 138 mg/dl Assessment & Plan 76 male with history of Scrotal Hematoma, A fib, DM, HTN, JUAN MANUEL presenting with fever/chills, weakness. SEPSIS secondary to SCROTAL WOUND INFECTION RIGHT LEG CELLULITIS On admission WBC, lactic acid and HR elevated with low grade fever Possible related to scrotal wound infection Received IV imipenem, Clinda and Vanco in the ER, continue on Vancomycin and Zosyn X 3 days, then transitioned to PO Cephalexin Day 2 cultures: blood: negative urine: unable to obtain sample -continue to improved continue Cephalexin Day 3/14 ID consulted, appreciate the input - wound care service consulted C diff Colitis - 3rd episode - on Vancomycin PO Day 1 - diarrhea improving, monitor 2nd Toe Necrotic Possible Toe ischemic Xray of the L toes showed no evidence for bony destructive process. Soft tissue edema. Arterial doppler of LE showed no significant stenotic process of the left arterial structures. Moderate narrowing right posterior tibial artery with moderate to rather significant retrograde flow within the right dorsalis pedis artery. Vascular consulted Recommended local wound care to prevent infection until completely healed. No surgical intervention DM Type 2 Hba1c 5.4 on 12/06 HBa1c 7.6 hold metformin On insulin coverage Chronic Afib rate improved Coumadin discontinue last month by cardiology due to scrotum hemangioma bleeding Continue metoprolol and digoxin and aspirin Continue monitor in telemetry Ambulatory dysfunction Continue PT/OT Fall precaution JUAN MANUEL Does not use a CPAP Stable BPH Continue finasteride Stable HTN On Lasix/metoprolol continue monitor BP Stable Back Pain On hydrocodone prn CT lumbar showed multilevel degenerative disc change at the entire lumbar region.Moderate narrowing of the spinal canal at L2-L3, L3-L4, and most significantly at L4-L5. DVT px SCD (Due to scrotal hemangioma bleeding) High risk for DVT early ambulation CODE STATUS - FULL CODE Dispo anticipate d/c to Rehab when medically stable Consultants: Vascular surgery Current Inpatient Medications: Current Inpatient Medications Medications (Trade) Dose Ordered Sig/Jakub Route Start Time Stop Time Status Last Admin Dose Admin Aspirin (Ecotrin Tab) 81 mg DAILY PO 04/30/17 09:00 05/30/17 08:59 05/03/17 08:05 81 MG Digoxin (Lanoxin Tab) 0.125 mg DAILY@1600 PO 04/30/17 09:00 05/30/17 08:59 05/03/17 15:29 0.125 MG Docusate Sodium (coLACE CAP) 200 mg DAILY PO 04/30/17 09:00 05/30/17 08:59 05/02/17 09:23 200 MG Finasteride (Proscar Tab) 5 mg QAM PO 04/30/17 09:00 05/30/17 08:59 05/03/17 08:05 5 MG Losartan Potassium (coZAAR TAB) 50 mg QAM PO 04/30/17 09:00 05/30/17 08:59 05/03/17 08:04 50 MG Metoprolol Succinate (Toprol Xl Tab) 200 mg QAM PO 04/30/17 09:00 05/30/17 08:59 05/03/17 08:04 200 MG Insulin Aspart (novoLOG ASPART) SLIDING SCALE If C... ACHS SC 04/29/17 16:30 05/29/17 16:29 05/03/17 16:58 5 UNITS Glucose (Glucose 40% Gel) 15-30 GRAMS 15 GRAMS... UD PRN PO 04/29/17 12:45 05/29/17 12:44 Glucose (Glucose Chew Tab) 4-8 Tablets 4 Tabl... UD PRN PO 04/29/17 12:45 05/29/17 12:44 Dextrose (Dextrose 50% 50ML Syringe) 25-50ML OF 50% DW IV FOR... UD PRN IV 04/29/17 12:45 05/29/17 12:44 Glucagon (Glucagon Inj) 1 mg UD PRN SQ 04/29/17 12:45 05/29/17 12:44 Acetaminophen/ Hydrocodone Bitart ([place] 5/325 Tab) `1-2 tabs for pain 1 tab ... Q6 PRN PO 04/29/17 23:45 05/13/17 11:44 05/03/17 15:33 2 TAB Enteral Nutritional Formula (Boost Glucose Control) 1 can DAILY PO 05/01/17 09:00 05/31/17 08:59 05/01/17 09:00 1 CAN Cephalexin Monohydrate (Keflex Cap) 500 mg QID PO 05/01/17 17:00 05/05/17 23:59 05/03/17 17:00 500 MG Lorazepam (Ativan Tab) 0.25 mg HS PRN PO 05/01/17 20:30 05/31/17 20:29 05/02/17 21:57 0.25 MG Artificial Tears (Artificial Tears) 1 drops Q2H PRN OP 05/02/17 10:45 06/01/17 10:44 05/02/17 13:21 1 DROPS Vancomycin HCl (Vancomycin Oral Soln) 125 mg QID PO 05/03/17 01:00 05/17/17 00:59 05/03/17 17:00 125 MG Raspberry (Raspberry Syrup 5ml Cup) 5 ml QID PO 05/03/17 01:00 05/17/17 00:59 05/03/17 17:00 5 ML
--- NOTE | 2017-05-03 19:39 | Infectious Disease Progress Nt ---
Progress Note Date of Service May 03, 2017. Subjective Pt evaluation today including: conversation w/ patient, physical exam, chart review, lab review, review of studies, conversation w/ excellence consultant, review of inpatient medication list Patient feeling better today. Diarrhea less. Scrotal pain improved. Right leg pain decreasing fever. No fever. Tolerating antibiotics without apparent difficulty. All Other Systems: Reviewed and Negative Medications Current Inpatient Medications Medications (Trade) Dose Ordered Sig/Jakub Route Start Time Stop Time Status Last Admin Dose Admin Aspirin (Ecotrin Tab) 81 mg DAILY PO 04/30/17 09:00 05/30/17 08:59 05/03/17 08:05 81 MG Digoxin (Lanoxin Tab) 0.125 mg DAILY@1600 PO 04/30/17 09:00 05/30/17 08:59 05/03/17 15:29 0.125 MG Docusate Sodium (coLACE CAP) 200 mg DAILY PO 04/30/17 09:00 05/30/17 08:59 05/02/17 09:23 200 MG Finasteride (Proscar Tab) 5 mg QAM PO 04/30/17 09:00 05/30/17 08:59 05/03/17 08:05 5 MG Losartan Potassium (coZAAR TAB) 50 mg QAM PO 04/30/17 09:00 05/30/17 08:59 05/03/17 08:04 50 MG Metoprolol Succinate (Toprol Xl Tab) 200 mg QAM PO 04/30/17 09:00 05/30/17 08:59 05/03/17 08:04 200 MG Insulin Aspart (novoLOG ASPART) SLIDING SCALE If C... ACHS SC 04/29/17 16:30 05/29/17 16:29 05/03/17 16:58 5 UNITS Glucose (Glucose 40% Gel) 15-30 GRAMS 15 GRAMS... UD PRN PO 04/29/17 12:45 05/29/17 12:44 Glucose (Glucose Chew Tab) 4-8 Tablets 4 Tabl... UD PRN PO 04/29/17 12:45 05/29/17 12:44 Dextrose (Dextrose 50% 50ML Syringe) 25-50ML OF 50% DW IV FOR... UD PRN IV 04/29/17 12:45 05/29/17 12:44 Glucagon (Glucagon Inj) 1 mg UD PRN SQ 04/29/17 12:45 05/29/17 12:44 Acetaminophen/ Hydrocodone Bitart ([place] 5/325 Tab) `1-2 tabs for pain 1 tab ... Q6 PRN PO 04/29/17 23:45 05/13/17 11:44 05/03/17 15:33 2 TAB Enteral Nutritional Formula (Boost Glucose Control) 1 can DAILY PO 05/01/17 09:00 05/31/17 08:59 05/01/17 09:00 1 CAN Cephalexin Monohydrate (Keflex Cap) 500 mg QID PO 05/01/17 17:00 05/05/17 23:59 05/03/17 17:00 500 MG Lorazepam (Ativan Tab) 0.25 mg HS PRN PO 05/01/17 20:30 05/31/17 20:29 05/02/17 21:57 0.25 MG Artificial Tears (Artificial Tears) 1 drops Q2H PRN OP 05/02/17 10:45 06/01/17 10:44 05/02/17 13:21 1 DROPS Vancomycin HCl (Vancomycin Oral Soln) 125 mg QID PO 05/03/17 01:00 05/17/17 00:59 05/03/17 17:00 125 MG Raspberry (Raspberry Syrup 5ml Cup) 5 ml QID PO 05/03/17 01:00 05/17/17 00:59 05/03/17 17:00 5 ML Objective Vital Signs Date Time Temp Pulse Resp B/P (MAP) Pulse Ox O2 Delivery O2 Flow Rate FiO2 05/03/17 16:27 36.4 86 18 93 05/03/17 16:20 36.4 86 18 173/93 (119) 93 Room Air 05/03/17 16:00 92 Room Air 05/03/17 15:29 86 05/03/17 12:00 92 Room Air 05/03/17 11:42 36.5 87 18 116/72 (87) 92 Room Air 05/03/17 11:04 89 92 05/03/17 08:00 92 Room Air 05/03/17 07:32 36.4 86 18 194/100 (131) 92 Room Air 184/86 (118) 05/03/17 04:02 36.5 86 20 155/80 (105) 93 Room Air 05/03/17 04:00 Room Air 05/02/17 23:59 Room Air 05/02/17 23:40 36.8 79 20 157/90 (112) 95 Room Air 05/02/17 20:00 Room Air Physical Exam General Appearance: WD/WN, no apparent distress, + obese Eyes: normal inspection, sclerae normal ENT: normal ENT inspection, hearing grossly normal, pharynx normal Neck: supple, no adenopathy, trachea midline Respiratory/Chest: chest non-tender, lungs clear, normal breath sounds, no respiratory distress Cardiovascular: regular rate, rhythm, no gallop, no murmur Abdomen: normal bowel sounds, non tender, soft, no organomegaly, + pertinent finding (Less scrotal erythema) Extremities: + inflammation, + swelling Neurologic/Psychiatric: alert, oriented x 3 Skin: normal color, no rash, + pertinent finding (Right leg erythema and tenderness improving) Lymphatic: no adenopathy Laboratory Results Last 24 Hours Test 05/02/17 20:15 05/03/17 06:35 05/03/17 11:27 05/03/17 16:31 Bedside Glucose 125 mg/dl 136 mg/dl 145 mg/dl 138 mg/dl Assessment and Plan 76-year-old male with diabetes mellitus with chronic scrotal ulcerations admitted with right lower extremity cellulitis and possible worsening scrotal infection. Patient now with recurrent C difficile infection, started on vancomycin, would recommend prolonged tapering course of therapy given multiple recurrences. Will continue on current antibiotics for scrotal infection as appears to be improving. Will follow.
[2017-05-03] MEDS: LORAZEPAM 0.5 MG TAB PO PRN (22:04)
[2017-05-04] VITALS: BP 168/80; PULSE 87; TEMP 36.8; O2SAT 96
[2017-05-04] MEDS: HYDROCODONE/ACETAMOPHEN 5/325MG TAB PO PRN ×4 (03:51→22:42)
[2017-05-04 07:54] LABS: BASO % 0.5 %; BASO ABS # 0.04 K/uL (0-0.2); COMPLETE YES; EOS % 5.2 %; HEMATOCRIT 43.7 % (42-52); IG% 0.6 %; LYMPH % 9.9 %; LYMPH ABS # 0.88 K/uL (1.2-3.4); MEAN CELL VOLUME 88.6 fL (80-100); MEAN CORPUSCULAR HEMOGLOBIN 28.2 pg (25-34); MEAN CORPUSCULAR HGB CONC 31.8 g/dl (32-36); MEAN PLATELET VOLUME 9.7 fL (7.4-10.4); MONO % 7.6 %; NEUT % 76.2 %; PLATELET COUNT 334 K/uL (130-400); RED BLOOD COUNT 4.93 M/uL (4.7-6.1); WHITE BLOOD COUNT 8.85 K/uL (4.8-10.8)
[2017-05-04 08:17] VITALS: BP 147/78; PULSE 88; TEMP 36.6; O2SAT 92
[2017-05-04 08:21] LABS: BUN/CREATININE RATIO 22.2 (10-20); CALCIUM 8.9 mg/dl (8.5-10.1); CREATININE 0.9 mg/dl (0.60-1.40); POTASSIUM 4.6 mmol/L (3.5-5.1)
[2017-05-04] MEDS: INSULIN ASPART 100 UNITS/ML 3 ML PEN SC SCH ×4 (09:41→20:58)
[2017-05-04] MEDS: DOCUSATE SODIUM 100 MG CAP PO SCH (09:45)
[2017-05-04] MEDS: LOSARTAN POTASSIUM 50 MG TAB PO SCH (09:47)
[2017-05-04] MEDS: ASPIRIN 81 MG ECTAB PO SCH (09:48)
[2017-05-04] MEDS: CEPHALEXIN MONOHYDRATE 500 MG CAP PO SCH ×4 (09:49→20:51)
[2017-05-04] MEDS: FINASTERIDE 5 MG TAB PO SCH (09:50)
[2017-05-04] MEDS: VANCOMYCIN HCL 125 MG/2.5ML SOLN PO SCH ×4 (09:51→20:51)
[2017-05-04] MEDS: RASPBERRY SYRUP 5 ML UDP PO SCH ×4 (09:51→20:48)
[2017-05-04] MEDS: METOPROLOL SUCC 50MG EXT REL TAB PO SCH (09:52)
[2017-05-04] MEDS: BOOST GLUCOSE CONTROL PO SCH ×2 (11:19→21:00)
[2017-05-04 11:25] VITALS: BP 184/98; PULSE 84; TEMP 36.5; O2SAT 93
[2017-05-04 15:42] VITALS: BP 160/76; PULSE 86; TEMP 36.4; O2SAT 90
[2017-05-04 16:15] VITALS: O2SAT 90
[2017-05-04] MEDS: DIGOXIN 0.125 MG TAB PO SCH (16:22)
--- NOTE | 2017-05-04 16:39 | Progress Note ---
Medicine Progress Note Date & Time of Visit: May 04, 2017 at 16:34. Subjective patient seen resting in bed, comfortable states he feels improved today overall had 3 soft stools, no abdominal pain no scrotal pain and right leg pain seems to be improving denies other symptoms Objective Last 8 Hrs Date Time Temp Pulse Resp B/P (MAP) Pulse Ox O2 Delivery O2 Flow Rate FiO2 05/04/17 16:22 86 05/04/17 15:42 36.4 86 20 160/76 (104) 90 Room Air 05/04/17 11:25 36.5 84 16 184/98 (126) 93 05/04/17 10:02 Room Air Physical Exam: General- oriented x 3, not in distress, speaks in sentences with no effort Neck- no JVD Lungs- clear BS bilaterally, no rales/wheezes Heart- regular rhythm; no murmur, normal rate Abdomen- normal bowel sounds, soft, nontender Extremities- mild right lower leg edema, mild warmth, no erythema, no tenderness extending to the ankle, hind foot region , no calf tenderness; peripheral pulses intact Neuro- alert, oriented x 3; no gross focal deficits Skin- warm & dry Laboratory Results: Last 24 Hours Test 05/03/17 20:03 05/04/17 07:12 05/04/17 11:40 Bedside Glucose 158 mg/dl 130 mg/dl White Blood Count 8.85 K/uL Red Blood Count 4.93 M/uL Hemoglobin 13.9 g/dL Hematocrit 43.7 % Mean Corpuscular Volume 88.6 fL Mean Corpuscular Hemoglobin 28.2 pg Mean Corpuscular Hemoglobin Concent 31.8 g/dl Platelet Count 334 K/uL Mean Platelet Volume 9.7 fL Neutrophils (%) (Auto) 76.2 % Lymphocytes (%) (Auto) 9.9 % Monocytes (%) (Auto) 7.6 % Eosinophils (%) (Auto) 5.2 % Basophils (%) (Auto) 0.5 % Neutrophils # (Auto) 6.75 K/uL Lymphocytes # (Auto) 0.88 K/uL Monocytes # (Auto) 0.67 K/uL Eosinophils # (Auto) 0.46 K/uL Basophils # (Auto) 0.04 K/uL RDW Standard Deviation 52.7 fL RDW Coefficient of Variation 16.3 % Immature Granulocyte % (Auto) 0.6 % Immature Granulocyte # (Auto) 0.05 K/uL Sodium Level 135 mmol/L Potassium Level 4.6 mmol/L Chloride Level 104 mmol/L Carbon Dioxide Level 23 mmol/L Anion Gap 8.0 mmol/L Blood Urea Nitrogen 20 mg/dl Creatinine 0.90 mg/dl Est Creatinine Clear Calc Drug Dose 102.9 ml/min Estimated GFR () 95.8 Estimated GFR (Non- 82.7 BUN/Creatinine Ratio 22.2 Random Glucose 148 mg/dl Calcium Level 8.9 mg/dl Assessment & Plan 76 male with history of Scrotal Hematoma, A fib, DM, HTN, JUAN MANUEL presenting with fever/chills, weakness. SEPSIS secondary to SCROTAL WOUND INFECTION RIGHT LEG CELLULITIS On admission WBC, lactic acid and HR elevated with low grade fever Possible related to scrotal wound infection Received IV imipenem, Clinda and Vanco in the ER, continue on Vancomycin and Zosyn X 3 days, then transitioned to PO Cephalexin Day 2 cultures: blood: negative urine: unable to obtain sample - improving daily continue Cephalexin Day 11/13 ID consulted, appreciate the input - wound care service consulted C diff Colitis - 3rd episode - on Vancomycin PO Day 2 will need tapering course ID consulted - diarrhea improving, monitor 2nd Toe Necrotic Possible Toe ischemic Xray of the L toes showed no evidence for bony destructive process. Soft tissue edema. Arterial doppler of LE showed no significant stenotic process of the left arterial structures. Moderate narrowing right posterior tibial artery with moderate to rather significant retrograde flow within the right dorsalis pedis artery. Vascular consulted Recommended local wound care to prevent infection until completely healed. No surgical intervention DM Type 2 Hba1c 5.4 on 12/06 HBa1c 7.6 hold metformin On insulin coverage Chronic Afib rate improved Coumadin discontinue last month by cardiology due to scrotum hemangioma bleeding Continue metoprolol and digoxin and aspirin Continue monitor in telemetry Ambulatory dysfunction Continue PT/OT Fall precaution JUAN MANUEL Does not use a CPAP Stable BPH Continue finasteride Stable HTN not at goal increase Losartan to 50mg BID continue Metoprolol resume Lasix when diarrhea further resolves Back Pain On hydrocodone prn CT lumbar showed multilevel degenerative disc change at the entire lumbar region.Moderate narrowing of the spinal canal at L2-L3, L3-L4, and most significantly at L4-L5. DVT px SCD (Due to scrotal hemangioma bleeding) High risk for DVT early ambulation CODE STATUS - FULL CODE Dispo anticipate d/c to Rehab when accepted Consultants: Vascular surgery Current Inpatient Medications: Current Inpatient Medications Medications (Trade) Dose Ordered Sig/Jakub Route Start Time Stop Time Status Last Admin Dose Admin Aspirin (Ecotrin Tab) 81 mg DAILY PO 04/30/17 09:00 05/30/17 08:59 05/04/17 09:48 81 MG Digoxin (Lanoxin Tab) 0.125 mg DAILY@1600 PO 04/30/17 09:00 05/30/17 08:59 05/04/17 16:22 0.125 MG Docusate Sodium (coLACE CAP) 200 mg DAILY PO 04/30/17 09:00 05/30/17 08:59 05/04/17 09:45 200 MG Finasteride (Proscar Tab) 5 mg QAM PO 04/30/17 09:00 05/30/17 08:59 05/04/17 09:50 5 MG Losartan Potassium (coZAAR TAB) 50 mg QAM PO 04/30/17 09:00 05/30/17 08:59 05/04/17 09:47 50 MG Metoprolol Succinate (Toprol Xl Tab) 200 mg QAM PO 04/30/17 09:00 05/30/17 08:59 05/04/17 09:52 200 MG Insulin Aspart (novoLOG ASPART) SLIDING SCALE If C... ACHS SC 04/29/17 16:30 05/29/17 16:29 05/04/17 11:57 10 UNITS Glucose (Glucose 40% Gel) 15-30 GRAMS 15 GRAMS... UD PRN PO 04/29/17 12:45 05/29/17 12:44 Glucose (Glucose Chew Tab) 4-8 Tablets 4 Tabl... UD PRN PO 04/29/17 12:45 05/29/17 12:44 Dextrose (Dextrose 50% 50ML Syringe) 25-50ML OF 50% DW IV FOR... UD PRN IV 04/29/17 12:45 05/29/17 12:44 Glucagon (Glucagon Inj) 1 mg UD PRN SQ 04/29/17 12:45 05/29/17 12:44 Acetaminophen/ Hydrocodone Bitart ([place] 5/325 Tab) `1-2 tabs for pain 1 tab ... Q6 PRN PO 04/29/17 23:45 05/13/17 11:44 05/04/17 16:22 2 TAB Cephalexin Monohydrate (Keflex Cap) 500 mg QID PO 05/01/17 17:00 05/05/17 23:59 05/04/17 11:52 500 MG Lorazepam (Ativan Tab) 0.25 mg HS PRN PO 05/01/17 20:30 05/31/17 20:29 05/03/17 22:04 0.25 MG Artificial Tears (Artificial Tears) 1 drops Q2H PRN OP 05/02/17 10:45 06/01/17 10:44 05/02/17 13:21 1 DROPS Vancomycin HCl (Vancomycin Oral Soln) 125 mg QID PO 05/03/17 01:00 05/17/17 00:59 05/04/17 11:52 125 MG Raspberry (Raspberry Syrup 5ml Cup) 5 ml QID PO 05/03/17 01:00 05/17/17 00:59 05/04/17 11:53 5 ML Enteral Nutritional Formula (Boost Glucose Control) 1 can BID PO 05/04/17 20:00 06/03/17 19:59
--- NOTE | 2017-05-04 17:16 | Infectious Disease Progress Nt ---
Progress Note Date of Service May 04, 2017. Subjective Pt evaluation today including: conversation w/ patient, physical exam, chart review, lab review, review of studies, conversation w/ operations consultant, review of inpatient medication list patient feeling better. Scrotal pain decreased. Right leg pain getting better. No fever. Diarrhea better. All Other Systems: Reviewed and Negative Medications Current Inpatient Medications Medications (Trade) Dose Ordered Sig/Jakub Route Start Time Stop Time Status Last Admin Dose Admin Aspirin (Ecotrin Tab) 81 mg DAILY PO 04/30/17 09:00 05/30/17 08:59 05/04/17 09:48 81 MG Digoxin (Lanoxin Tab) 0.125 mg DAILY@1600 PO 04/30/17 09:00 05/30/17 08:59 05/04/17 16:22 0.125 MG Docusate Sodium (coLACE CAP) 200 mg DAILY PO 04/30/17 09:00 05/30/17 08:59 05/04/17 09:45 200 MG Finasteride (Proscar Tab) 5 mg QAM PO 04/30/17 09:00 05/30/17 08:59 05/04/17 09:50 5 MG Metoprolol Succinate (Toprol Xl Tab) 200 mg QAM PO 04/30/17 09:00 05/30/17 08:59 05/04/17 09:52 200 MG Insulin Aspart (novoLOG ASPART) SLIDING SCALE If C... ACHS SC 04/29/17 16:30 05/29/17 16:29 05/04/17 11:57 10 UNITS Glucose (Glucose 40% Gel) 15-30 GRAMS 15 GRAMS... UD PRN PO 04/29/17 12:45 05/29/17 12:44 Glucose (Glucose Chew Tab) 4-8 Tablets 4 Tabl... UD PRN PO 04/29/17 12:45 05/29/17 12:44 Dextrose (Dextrose 50% 50ML Syringe) 25-50ML OF 50% DW IV FOR... UD PRN IV 04/29/17 12:45 05/29/17 12:44 Glucagon (Glucagon Inj) 1 mg UD PRN SQ 04/29/17 12:45 05/29/17 12:44 Acetaminophen/ Hydrocodone Bitart ([place] 5/325 Tab) `1-2 tabs for pain 1 tab ... Q6 PRN PO 04/29/17 23:45 05/13/17 11:44 05/04/17 16:22 2 TAB Cephalexin Monohydrate (Keflex Cap) 500 mg QID PO 05/01/17 17:00 05/05/17 23:59 05/04/17 11:52 500 MG Lorazepam (Ativan Tab) 0.25 mg HS PRN PO 05/01/17 20:30 05/31/17 20:29 05/03/17 22:04 0.25 MG Artificial Tears (Artificial Tears) 1 drops Q2H PRN OP 05/02/17 10:45 06/01/17 10:44 05/02/17 13:21 1 DROPS Vancomycin HCl (Vancomycin Oral Soln) 125 mg QID PO 05/03/17 01:00 05/17/17 00:59 05/04/17 11:52 125 MG Raspberry (Raspberry Syrup 5ml Cup) 5 ml QID PO 05/03/17 01:00 05/17/17 00:59 05/04/17 11:53 5 ML Enteral Nutritional Formula (Boost Glucose Control) 1 can BID PO 05/04/17 20:00 06/03/17 19:59 Losartan Potassium (coZAAR TAB) 50 mg BID PO 05/05/17 08:00 06/04/17 07:59 Losartan Potassium (coZAAR TAB) 50 mg 1800 ONCE PO 05/04/17 18:00 05/04/17 18:01 Objective Vital Signs Date Time Temp Pulse Resp B/P (MAP) Pulse Ox O2 Delivery O2 Flow Rate FiO2 05/04/17 16:22 86 05/04/17 15:42 36.4 86 20 160/76 (104) 90 Room Air 05/04/17 11:25 36.5 84 16 184/98 (126) 93 05/04/17 10:02 Room Air 05/04/17 08:17 36.6 88 16 147/78 (101) 92 Room Air 05/04/17 01:00 Room Air 05/04/17 00:00 36.8 87 20 168/80 (109) 96 Room Air Physical Exam General Appearance: WD/WN, no apparent distress, + obese Eyes: normal inspection, EOMI, sclerae normal ENT: normal ENT inspection, pharynx normal Neck: supple, no adenopathy, thyroid normal, trachea midline Respiratory/Chest: chest non-tender, lungs clear, normal breath sounds, no respiratory distress Cardiovascular: regular rate, rhythm, no gallop, no murmur Abdomen: normal bowel sounds, non tender, soft, no organomegaly Extremities: + inflammation, + swelling, + pertinent finding ( Improving right leg swelling) Neurologic/Psychiatric: alert, oriented x 3 Skin: normal color, + pertinent finding ( left scrotal erythema, right leg less swollen and erythematous) Lymphatic: no adenopathy Laboratory Results Last 24 Hours Test 05/03/17 20:03 05/04/17 07:12 05/04/17 11:40 05/04/17 16:46 Bedside Glucose 158 mg/dl 130 mg/dl 123 mg/dl White Blood Count 8.85 K/uL Red Blood Count 4.93 M/uL Hemoglobin 13.9 g/dL Hematocrit 43.7 % Mean Corpuscular Volume 88.6 fL Mean Corpuscular Hemoglobin 28.2 pg Mean Corpuscular Hemoglobin Concent 31.8 g/dl Platelet Count 334 K/uL Mean Platelet Volume 9.7 fL Neutrophils (%) (Auto) 76.2 % Lymphocytes (%) (Auto) 9.9 % Monocytes (%) (Auto) 7.6 % Eosinophils (%) (Auto) 5.2 % Basophils (%) (Auto) 0.5 % Neutrophils # (Auto) 6.75 K/uL Lymphocytes # (Auto) 0.88 K/uL Monocytes # (Auto) 0.67 K/uL Eosinophils # (Auto) 0.46 K/uL Basophils # (Auto) 0.04 K/uL RDW Standard Deviation 52.7 fL RDW Coefficient of Variation 16.3 % Immature Granulocyte % (Auto) 0.6 % Immature Granulocyte # (Auto) 0.05 K/uL Sodium Level 135 mmol/L Potassium Level 4.6 mmol/L Chloride Level 104 mmol/L Carbon Dioxide Level 23 mmol/L Anion Gap 8.0 mmol/L Blood Urea Nitrogen 20 mg/dl Creatinine 0.90 mg/dl Est Creatinine Clear Calc Drug Dose 102.9 ml/min Estimated GFR () 95.8 Estimated GFR (Non- 82.7 BUN/Creatinine Ratio 22.2 Random Glucose 148 mg/dl Calcium Level 8.9 mg/dl Assessment and Plan 76-year-old male with diabetes mellitus with chronic scrotal ulcerations admitted with right lower extremity cellulitis and possible worsening scrotal infection. Patient now with recurrent C difficile infection, started on vancomycin, would recommend prolonged tapering course of therapy given multiple recurrences. Will continue on current antibiotics for scrotal infection as appears to be improving. Will follow.
[2017-05-04] MEDS ORDERED: LOSARTAN POTASSIUM 50 MG TAB PO ONE (18:00)
[2017-05-04] MEDS: LORAZEPAM 0.5 MG TAB PO PRN (22:42)
[2017-05-05 00:30] VITALS: BP 148/76; PULSE 80; TEMP 36.7; O2SAT 93
[2017-05-05] MEDS: HYDROCODONE/ACETAMOPHEN 5/325MG TAB PO PRN ×4 (04:55→20:03)
[2017-05-05 07:31] VITALS: BP 161/82; PULSE 95; TEMP 36.5; O2SAT 90
[2017-05-05 08:00] VITALS: O2SAT 92
[2017-05-05] MEDS: BOOST GLUCOSE CONTROL PO SCH ×2 (08:00→20:00)
[2017-05-05] MEDS: DOCUSATE SODIUM 100 MG CAP PO SCH (08:00)
[2017-05-05] MEDS: RASPBERRY SYRUP 5 ML UDP PO SCH ×4 (08:52→20:02)
[2017-05-05] MEDS: VANCOMYCIN HCL 125 MG/2.5ML SOLN PO SCH ×4 (08:52→20:02)
[2017-05-05] MEDS: ASPIRIN 81 MG ECTAB PO SCH (08:53)
[2017-05-05] MEDS: CEPHALEXIN MONOHYDRATE 500 MG CAP PO SCH ×4 (08:53→20:07)
[2017-05-05] MEDS: METOPROLOL SUCC 50MG EXT REL TAB PO SCH (08:53)
[2017-05-05] MEDS: LOSARTAN POTASSIUM 50 MG TAB PO SCH ×2 (08:53→20:07)
[2017-05-05] MEDS: FINASTERIDE 5 MG TAB PO SCH (08:54)
[2017-05-05] MEDS: INSULIN ASPART 100 UNITS/ML 3 ML PEN SC SCH ×4 (08:58→21:00)
[2017-05-05 15:36] VITALS: BP 123/74; PULSE 78; TEMP 36.4; O2SAT 93
[2017-05-05 16:00] VITALS: O2SAT 93
[2017-05-05] MEDS: DIGOXIN 0.125 MG TAB PO SCH (16:02)
--- NOTE | 2017-05-05 17:53 | Progress Note ---
Medicine Progress Note Date & Time of Visit: May 05, 2017 at 17:48. Subjective resting in bed, comfortable states he feels fine overall right lower leg pain continues to improve no pain on the scrotal region had 3 bms, pasty, no abdominal pain denies other symptoms Objective Last 8 Hrs Date Time Temp Pulse Resp B/P (MAP) Pulse Ox O2 Delivery O2 Flow Rate FiO2 05/05/17 16:02 91 05/05/17 15:36 36.4 78 18 123/74 (90) 93 Room Air Physical Exam: General- oriented x 3, not in distress, speaks in sentences with no effort Neck- no JVD Lungs- clear BS bilaterally Heart- regular rhythm; no murmur, normal rate Abdomen- normal bowel sounds, soft, nontender Extremities- mild right lower leg edema, mild warmth, no erythema, no tenderness extending to the ankle, hind foot region , no calf tenderness; peripheral pulses intact Neuro- alert, oriented x 3; no gross focal deficits Skin- warm & dry Laboratory Results: Last 24 Hours Test 05/04/17 19:54 05/05/17 07:48 05/05/17 11:38 05/05/17 16:27 Bedside Glucose 164 mg/dl 143 mg/dl 159 mg/dl 177 mg/dl Assessment & Plan 76 male with history of Scrotal Hematoma, A fib, DM, HTN, JUAN MANUEL presenting with fever/chills, weakness. SEPSIS secondary to SCROTAL WOUND INFECTION RIGHT LEG CELLULITIS On admission WBC, lactic acid and HR elevated with low grade fever Possible related to scrotal wound infection Received IV imipenem, Clinda and Vanco in the ER, continue on Vancomycin and Zosyn X 3 days, then transitioned to PO Cephalexin Day 2 cultures: blood: negative urine: unable to obtain sample -- continues to improve continue Cephalexin Day / ID consulted, appreciate the input - wound care service consulted C diff Colitis - 3rd episode - on Vancomycin PO Day 3 will need tapering course ID consulted - diarrhea improving daily, monitor 2nd Toe Necrotic Possible Toe ischemic Xray of the L toes showed no evidence for bony destructive process. Soft tissue edema. Arterial doppler of LE showed no significant stenotic process of the left arterial structures. Moderate narrowing right posterior tibial artery with moderate to rather significant retrograde flow within the right dorsalis pedis artery. Vascular consulted Recommended local wound care to prevent infection until completely healed. No surgical intervention HTN not at goal increased Losartan to 50mg BID continue Metoprolol -- resume Lasix tomorrow -- BP improving DM Type 2 Hba1c 5.4 on 12/06 HBa1c 7.6 hold metformin On insulin coverage Chronic Afib rate improved Coumadin discontinue last month by cardiology due to scrotum hemangioma bleeding Continue metoprolol and digoxin and aspirin Ambulatory dysfunction Continue PT/OT Fall precaution JUAN MANUEL Does not use a CPAP Stable BPH Continue finasteride Stable Back Pain On hydrocodone prn CT lumbar showed multilevel degenerative disc change at the entire lumbar region.Moderate narrowing of the spinal canal at L2-L3, L3-L4, and most significantly at L4-L5. DVT px SCD (Due to scrotal hemangioma bleeding) High risk for DVT early ambulation CODE STATUS - FULL CODE Dispo anticipate d/c to Rehab when accepted Consultants: Vascular surgery Current Inpatient Medications: Current Inpatient Medications Medications (Trade) Dose Ordered Sig/Jakub Route Start Time Stop Time Status Last Admin Dose Admin Aspirin (Ecotrin Tab) 81 mg DAILY PO 04/30/17 09:00 05/30/17 08:59 05/05/17 08:53 81 MG Digoxin (Lanoxin Tab) 0.125 mg DAILY@1600 PO 04/30/17 09:00 05/30/17 08:59 05/05/17 16:02 0.125 MG Docusate Sodium (coLACE CAP) 200 mg DAILY PO 04/30/17 09:00 05/30/17 08:59 05/04/17 09:45 200 MG Finasteride (Proscar Tab) 5 mg QAM PO 04/30/17 09:00 05/30/17 08:59 05/05/17 08:54 5 MG Metoprolol Succinate (Toprol Xl Tab) 200 mg QAM PO 04/30/17 09:00 05/30/17 08:59 05/05/17 08:53 200 MG Insulin Aspart (novoLOG ASPART) SLIDING SCALE If C... ACHS SC 04/29/17 16:30 05/29/17 16:29 05/05/17 12:49 5 UNITS Glucose (Glucose 40% Gel) 15-30 GRAMS 15 GRAMS... UD PRN PO 04/29/17 12:45 05/29/17 12:44 Glucose (Glucose Chew Tab) 4-8 Tablets 4 Tabl... UD PRN PO 04/29/17 12:45 05/29/17 12:44 Dextrose (Dextrose 50% 50ML Syringe) 25-50ML OF 50% DW IV FOR... UD PRN IV 04/29/17 12:45 05/29/17 12:44 Glucagon (Glucagon Inj) 1 mg UD PRN SQ 04/29/17 12:45 05/29/17 12:44 Acetaminophen/ Hydrocodone Bitart ([place] 5/325 Tab) `1-2 tabs for pain 1 tab ... Q6 PRN PO 04/29/17 23:45 05/13/17 11:44 05/05/17 12:36 2 TAB Cephalexin Monohydrate (Keflex Cap) 500 mg QID PO 05/01/17 17:00 05/05/17 23:59 05/05/17 16:03 500 MG Lorazepam (Ativan Tab) 0.25 mg HS PRN PO 05/01/17 20:30 05/31/17 20:29 05/04/17 22:42 0.25 MG Artificial Tears (Artificial Tears) 1 drops Q2H PRN OP 05/02/17 10:45 06/01/17 10:44 05/02/17 13:21 1 DROPS Vancomycin HCl (Vancomycin Oral Soln) 125 mg QID PO 05/03/17 01:00 05/17/17 00:59 05/05/17 16:19 125 MG Raspberry (Raspberry Syrup 5ml Cup) 5 ml QID PO 05/03/17 01:00 05/17/17 00:59 05/05/17 16:19 5 ML Enteral Nutritional Formula (Boost Glucose Control) 1 can BID PO 05/04/17 20:00 06/03/17 19:59 05/04/17 21:00 1 CAN Losartan Potassium (coZAAR TAB) 50 mg BID PO 05/05/17 08:00 06/04/17 07:59 05/05/17 08:53 50 MG
[2017-05-05] MEDS ORDERED: CETIRIZINE HCL 10 MG TAB PO ONE (18:00)
[2017-05-05] MEDS: LORAZEPAM 0.5 MG TAB PO PRN (23:59)
[2017-05-06 00:23] VITALS: BP 155/76; PULSE 86; TEMP 36.6; O2SAT 91
[2017-05-06] MEDS: HYDROCODONE/ACETAMOPHEN 5/325MG TAB PO PRN ×3 (04:52→23:30)
[2017-05-06 07:29] VITALS: BP 155/81; PULSE 85; TEMP 36.3; O2SAT 95
[2017-05-06 08:00] VITALS: O2SAT 95
[2017-05-06] MEDS: BOOST GLUCOSE CONTROL PO SCH ×2 (08:00→19:42)
[2017-05-06] MEDS: DOCUSATE SODIUM 100 MG CAP PO SCH (08:00)
[2017-05-06] MEDS: VANCOMYCIN HCL 125 MG/2.5ML SOLN PO SCH ×4 (08:51→19:42)
[2017-05-06] MEDS: LOSARTAN POTASSIUM 50 MG TAB PO SCH ×2 (08:51→19:42)
[2017-05-06] MEDS: RASPBERRY SYRUP 5 ML UDP PO SCH ×4 (08:51→19:42)
[2017-05-06] MEDS: ASPIRIN 81 MG ECTAB PO SCH (08:51)
[2017-05-06] MEDS: METOPROLOL SUCC 50MG EXT REL TAB PO SCH (08:52)
[2017-05-06] MEDS: FUROSEMIDE 20 MG TAB PO SCH (08:52)
[2017-05-06] MEDS: FINASTERIDE 5 MG TAB PO SCH (08:53)
[2017-05-06] MEDS: INSULIN ASPART 100 UNITS/ML 3 ML PEN SC SCH ×4 (09:06→20:01)
[2017-05-06 15:25] VITALS: BP 125/69; PULSE 80; TEMP 36.9; O2SAT 92
[2017-05-06] MEDS: DIGOXIN 0.125 MG TAB PO SCH (16:14)
[2017-05-06] MEDS: ACETAMINOPHEN 325 MG TAB PO PRN (16:15)
[2017-05-06 19:42] VITALS: BP 151/75; PULSE 85
--- NOTE | 2017-05-06 20:58 | Progress Note ---
Medicine Progress Note Date & Time of Visit: May 06, 2017 at 20:54. Subjective states he feels ok overall today had 2 soft BMs right leg pain improving no other symptoms Objective Last 8 Hrs Date Time Temp Pulse Resp B/P (MAP) Pulse Ox O2 Delivery O2 Flow Rate FiO2 05/06/17 19:42 85 151/75 (100) 05/06/17 16:14 78 05/06/17 16:00 Room Air 05/06/17 15:25 36.9 80 20 125/69 (87) 92 Physical Exam: General- oriented x 3, not in distress, speaks in sentences with no effort Neck- no JVD Lungs- clear BS BL, no rales/wheezes Heart- regular rhythm; no murmur, normal rate Abdomen- normal bowel sounds, soft, nontender Extremities- mild right lower leg edema- improving, mild warmth- improving, no erythema, no tenderness extending to the ankle, hind foot region , no calf tenderness; peripheral pulses intact Neuro- alert, oriented x 3; no gross focal deficits Skin- warm & dry Laboratory Results: Last 24 Hours Test 05/06/17 07:33 05/06/17 11:35 05/06/17 16:53 05/06/17 20:01 Bedside Glucose 145 mg/dl 152 mg/dl 147 mg/dl 142 mg/dl Assessment & Plan 76 male with history of Scrotal Hematoma, A fib, DM, HTN, JUAN MANUEL presenting with fever/chills, weakness. SEPSIS secondary to SCROTAL WOUND INFECTION RIGHT LEG CELLULITIS On admission WBC, lactic acid and HR elevated with low grade fever Possible related to scrotal wound infection Received IV imipenem, Clinda and Vanco in the ER, continue on Vancomycin and Zosyn X 3 days, then transitioned to PO Cephalexin Day 2 cultures: blood: negative urine: unable to obtain sample -- continues to improve continue Cephalexin Day 7/14 ID consulted, appreciate the input - wound care service consulted C diff Colitis - 3rd episode - on Vancomycin PO Day 4 will need tapering course ID consulted - diarrhea improving daily, monitor 2nd Toe Necrotic Possible Toe ischemic Xray of the L toes showed no evidence for bony destructive process. Soft tissue edema. Arterial doppler of LE showed no significant stenotic process of the left arterial structures. Moderate narrowing right posterior tibial artery with moderate to rather significant retrograde flow within the right dorsalis pedis artery. Vascular consulted Recommended local wound care to prevent infection until completely healed. No surgical intervention HTN not at goal increased Losartan to 50mg BID continue Metoprolol -- resume Lasix -- BP improving DM Type 2 Hba1c 5.4 on 12/06 HBa1c 7.6 hold metformin On insulin coverage Chronic Afib rate improved Coumadin discontinue last month by cardiology due to scrotum hemangioma bleeding Continue metoprolol and digoxin and aspirin Ambulatory dysfunction Continue PT/OT Fall precaution JUAN MANUEL Does not use a CPAP Stable BPH Continue finasteride Stable Back Pain On hydrocodone prn CT lumbar showed multilevel degenerative disc change at the entire lumbar region.Moderate narrowing of the spinal canal at L2-L3, L3-L4, and most significantly at L4-L5. DVT px SCD (Due to scrotal hemangioma bleeding) High risk for DVT early ambulation CODE STATUS - FULL CODE Dispo anticipate d/c to Rehab when accepted Consultants: Vascular surgery Current Inpatient Medications: Current Inpatient Medications Medications (Trade) Dose Ordered Sig/Jakub Route Start Time Stop Time Status Last Admin Dose Admin Aspirin (Ecotrin Tab) 81 mg DAILY PO 04/30/17 09:00 05/30/17 08:59 05/06/17 08:51 81 MG Digoxin (Lanoxin Tab) 0.125 mg DAILY@1600 PO 04/30/17 09:00 05/30/17 08:59 05/06/17 16:14 0.125 MG Docusate Sodium (coLACE CAP) 200 mg DAILY PO 04/30/17 09:00 05/30/17 08:59 05/04/17 09:45 200 MG Finasteride (Proscar Tab) 5 mg QAM PO 04/30/17 09:00 05/30/17 08:59 05/06/17 08:53 5 MG Metoprolol Succinate (Toprol Xl Tab) 200 mg QAM PO 04/30/17 09:00 05/30/17 08:59 05/06/17 08:52 200 MG Insulin Aspart (novoLOG ASPART) SLIDING SCALE If C... ACHS SC 04/29/17 16:30 05/29/17 16:29 05/06/17 17:41 5 UNITS Glucose (Glucose 40% Gel) 15-30 GRAMS 15 GRAMS... UD PRN PO 04/29/17 12:45 05/29/17 12:44 Glucose (Glucose Chew Tab) 4-8 Tablets 4 Tabl... UD PRN PO 04/29/17 12:45 05/29/17 12:44 Dextrose (Dextrose 50% 50ML Syringe) 25-50ML OF 50% DW IV FOR... UD PRN IV 04/29/17 12:45 05/29/17 12:44 Glucagon (Glucagon Inj) 1 mg UD PRN SQ 04/29/17 12:45 05/29/17 12:44 Acetaminophen/ Hydrocodone Bitart ([place] 5/325 Tab) `1-2 tabs for pain 1 tab ... Q6 PRN PO 04/29/17 23:45 05/13/17 11:44 05/06/17 12:41 2 TAB Lorazepam (Ativan Tab) 0.25 mg HS PRN PO 05/01/17 20:30 05/31/17 20:29 05/05/17 23:59 0.25 MG Artificial Tears (Artificial Tears) 1 drops Q2H PRN OP 05/02/17 10:45 06/01/17 10:44 05/02/17 13:21 1 DROPS Vancomycin HCl (Vancomycin Oral Soln) 125 mg QID PO 05/03/17 01:00 05/17/17 00:59 05/06/17 19:42 125 MG Raspberry (Raspberry Syrup 5ml Cup) 5 ml QID PO 05/03/17 01:00 05/17/17 00:59 05/06/17 19:42 5 ML Enteral Nutritional Formula (Boost Glucose Control) 1 can BID PO 05/04/17 20:00 06/03/17 19:59 05/06/17 19:42 1 CAN Losartan Potassium (coZAAR TAB) 50 mg BID PO 05/05/17 08:00 06/04/17 07:59 05/06/17 19:42 50 MG Furosemide (Lasix Tab) 20 mg QAM PO 05/06/17 08:00 06/05/17 07:59 05/06/17 08:52 20 MG Acetaminophen (Tylenol Tab) 650 mg Q4H PRN PO 05/06/17 16:00 06/05/17 15:59 05/06/17 16:15 650 MG
[2017-05-06 23:21] VITALS: BP 170/80; PULSE 50; TEMP 36.6; O2SAT 90
[2017-05-06] MEDS: LORAZEPAM 0.5 MG TAB PO PRN (23:29)
[2017-05-07 06:59] VITALS: BP 149/83; PULSE 91; TEMP 36.5; O2SAT 92
[2017-05-07] MEDS: DOCUSATE SODIUM 100 MG CAP PO SCH (08:00)
[2017-05-07] MEDS: ASPIRIN 81 MG ECTAB PO SCH (08:25)
[2017-05-07] MEDS: LOSARTAN POTASSIUM 50 MG TAB PO SCH ×2 (08:25→19:53)
[2017-05-07] MEDS: FINASTERIDE 5 MG TAB PO SCH (08:26)
[2017-05-07] MEDS: FUROSEMIDE 20 MG TAB PO SCH (08:26)
[2017-05-07] MEDS: METOPROLOL SUCC 50MG EXT REL TAB PO SCH (08:27)
[2017-05-07] MEDS: HYDROCODONE/ACETAMOPHEN 5/325MG TAB PO PRN ×2 (08:28→16:27)
[2017-05-07] MEDS: RASPBERRY SYRUP 5 ML UDP PO SCH ×4 (08:29→19:51)
[2017-05-07] MEDS: VANCOMYCIN HCL 125 MG/2.5ML SOLN PO SCH ×4 (08:29→19:51)
[2017-05-07] MEDS: INSULIN ASPART 100 UNITS/ML 3 ML PEN SC SCH ×4 (08:32→21:14)
[2017-05-07] MEDS: BOOST GLUCOSE CONTROL PO SCH ×2 (10:00→19:52)
[2017-05-07 15:32] VITALS: BP 150/81; PULSE 91; TEMP 36.5; O2SAT 90
[2017-05-07] MEDS: DIGOXIN 0.125 MG TAB PO SCH (16:26)
--- NOTE | 2017-05-07 16:56 | Progress Note ---
Medicine Progress Note Date & Time of Visit: May 07, 2017 at 16:51. Subjective seen resting in bed, comfortable feels ok overall no diarrhea still has some right leg pain, improving denies other symptoms Objective Last 8 Hrs Date Time Temp Pulse Resp B/P (MAP) Pulse Ox O2 Delivery O2 Flow Rate FiO2 05/07/17 16:26 91 05/07/17 15:32 36.5 91 18 150/81 (104) 90 Room Air Physical Exam: General- oriented x 3, not in distress, speaks in sentences with no effort Neck- no JVD Lungs- clear breath sounds BL Heart- regular rhythm; no murmur, normal rate Abdomen- normal bowel sounds, soft, nontender Extremities- mild right lower leg edema- improving, mild warmth- improving, no erythema, no tenderness extending to the ankle, hind foot region , no calf tenderness; peripheral pulses intact Neuro- alert, oriented x 3; no gross focal deficits Skin- warm & dry Laboratory Results: Last 24 Hours Test 05/06/17 16:53 05/06/17 20:01 05/07/17 07:41 05/07/17 11:29 Bedside Glucose 147 mg/dl 142 mg/dl 169 mg/dl 163 mg/dl Assessment & Plan 76 male with history of Scrotal Hematoma, A fib, DM, HTN, JUAN MANUEL presenting with fever/chills, weakness. SEPSIS secondary to SCROTAL WOUND INFECTION RIGHT LEG CELLULITIS On admission WBC, lactic acid and HR elevated with low grade fever Possible related to scrotal wound infection Received IV imipenem, Clinda and Vanco in the ER, continue on Vancomycin and Zosyn X 3 days, then transitioned to PO Cephalexin Day 2 cultures: blood: negative urine: unable to obtain sample -- improving continue Cephalexin Day 7/14 ID consulted, appreciate the input - wound care service consulted C diff Colitis - 3rd episode - on Vancomycin PO Day 5 will need tapering course ID consulted - diarrhea improving daily, monitor 2nd Toe Necrotic Possible Toe ischemic Xray of the L toes showed no evidence for bony destructive process. Soft tissue edema. Arterial doppler of LE showed no significant stenotic process of the left arterial structures. Moderate narrowing right posterior tibial artery with moderate to rather significant retrograde flow within the right dorsalis pedis artery. Vascular consulted Recommended local wound care to prevent infection until completely healed. No surgical intervention HTN not at goal increased Losartan to 50mg BID continue Metoprolol -- resume Lasix -- BP improving PRN Clonidine added DM Type 2 Hba1c 5.4 on 12/06 HBa1c 7.6 hold metformin On insulin coverage Chronic Afib rate improved Coumadin discontinue last month by cardiology due to scrotum hemangioma bleeding Continue metoprolol and digoxin and aspirin Ambulatory dysfunction Continue PT/OT Fall precaution JUAN MANUEL Does not use a CPAP Stable BPH Continue finasteride Stable Back Pain On hydrocodone prn CT lumbar showed multilevel degenerative disc change at the entire lumbar region.Moderate narrowing of the spinal canal at L2-L3, L3-L4, and most significantly at L4-L5. DVT px SCD (Due to scrotal hemangioma bleeding) High risk for DVT early ambulation CODE STATUS - FULL CODE Dispo discussed with Case Mgt: Alissa Luque- patient/ will be appealing to go to [facility] Consultants: Vascular surgery Current Inpatient Medications: Current Inpatient Medications Medications (Trade) Dose Ordered Sig/Jakub Route Start Time Stop Time Status Last Admin Dose Admin Aspirin (Ecotrin Tab) 81 mg DAILY PO 04/30/17 09:00 05/30/17 08:59 05/07/17 08:25 81 MG Digoxin (Lanoxin Tab) 0.125 mg DAILY@1600 PO 04/30/17 09:00 05/30/17 08:59 05/07/17 16:26 0.125 MG Docusate Sodium (coLACE CAP) 200 mg DAILY PO 04/30/17 09:00 05/30/17 08:59 05/04/17 09:45 200 MG Finasteride (Proscar Tab) 5 mg QAM PO 04/30/17 09:00 05/30/17 08:59 05/07/17 08:26 5 MG Metoprolol Succinate (Toprol Xl Tab) 200 mg QAM PO 04/30/17 09:00 05/30/17 08:59 05/07/17 08:27 200 MG Insulin Aspart (novoLOG ASPART) SLIDING SCALE If C... ACHS SC 04/29/17 16:30 05/29/17 16:29 05/07/17 12:50 6 UNITS Glucose (Glucose 40% Gel) 15-30 GRAMS 15 GRAMS... UD PRN PO 04/29/17 12:45 05/29/17 12:44 Glucose (Glucose Chew Tab) 4-8 Tablets 4 Tabl... UD PRN PO 04/29/17 12:45 05/29/17 12:44 Dextrose (Dextrose 50% 50ML Syringe) 25-50ML OF 50% DW IV FOR... UD PRN IV 04/29/17 12:45 05/29/17 12:44 Glucagon (Glucagon Inj) 1 mg UD PRN SQ 04/29/17 12:45 05/29/17 12:44 Acetaminophen/ Hydrocodone Bitart ([place] 5/325 Tab) `1-2 tabs for pain 1 tab ... Q6 PRN PO 04/29/17 23:45 05/13/17 11:44 05/07/17 16:27 2 TAB Lorazepam (Ativan Tab) 0.25 mg HS PRN PO 05/01/17 20:30 05/31/17 20:29 05/06/17 23:29 0.25 MG Artificial Tears (Artificial Tears) 1 drops Q2H PRN OP 05/02/17 10:45 06/01/17 10:44 05/02/17 13:21 1 DROPS Vancomycin HCl (Vancomycin Oral Soln) 125 mg QID PO 05/03/17 01:00 05/17/17 00:59 05/07/17 16:27 125 MG Raspberry (Raspberry Syrup 5ml Cup) 5 ml QID PO 05/03/17 01:00 05/17/17 00:59 05/07/17 16:27 5 ML Enteral Nutritional Formula (Boost Glucose Control) 1 can BID PO 05/04/17 20:00 06/03/17 19:59 05/07/17 10:00 1 CAN Losartan Potassium (coZAAR TAB) 50 mg BID PO 05/05/17 08:00 06/04/17 07:59 05/07/17 08:25 50 MG Furosemide (Lasix Tab) 20 mg QAM PO 05/06/17 08:00 06/05/17 07:59 05/07/17 08:26 20 MG Acetaminophen (Tylenol Tab) 650 mg Q4H PRN PO 05/06/17 16:00 06/05/17 15:59 05/06/17 16:15 650 MG Cephalexin Monohydrate (Keflex Cap) 500 mg QID PO 05/07/17 17:00 05/13/17 16:59
[2017-05-07] MEDS ORDERED: CLONIDINE HCL 0.1 MG TAB PO PRN (17:00)
[2017-05-07] MEDS: CEPHALEXIN MONOHYDRATE 500 MG CAP PO SCH ×2 (17:54→19:52)
[2017-05-07 19:30] VITALS: O2SAT 90
[2017-05-07 22:54] VITALS: BP 156/82; PULSE 81; TEMP 36.4; O2SAT 90
[2017-05-07] MEDS: LORAZEPAM 0.5 MG TAB PO PRN (23:17)
[2017-05-08 01:36] VITALS: O2SAT 90
[2017-05-08] MEDS: HYDROCODONE/ACETAMOPHEN 5/325MG TAB PO PRN ×3 (05:43→20:10)
[2017-05-08 07:17] VITALS: BP 154/87; PULSE 103; TEMP 36.5; O2SAT 96
[2017-05-08 08:00] VITALS: O2SAT 96
[2017-05-08] MEDS: BOOST GLUCOSE CONTROL PO SCH ×2 (08:00→20:00)
[2017-05-08] MEDS: DOCUSATE SODIUM 100 MG CAP PO SCH (08:00)
[2017-05-08] MEDS: METOPROLOL SUCC 50MG EXT REL TAB PO SCH (08:57)
[2017-05-08] MEDS: FUROSEMIDE 20 MG TAB PO SCH (08:58)
[2017-05-08] MEDS: FINASTERIDE 5 MG TAB PO SCH (08:59)
[2017-05-08] MEDS: LOSARTAN POTASSIUM 50 MG TAB PO SCH ×2 (09:00→20:12)
[2017-05-08] MEDS: CEPHALEXIN MONOHYDRATE 500 MG CAP PO SCH ×4 (09:00→20:12)
[2017-05-08] MEDS: ASPIRIN 81 MG ECTAB PO SCH (09:00)
[2017-05-08] MEDS: VANCOMYCIN HCL 125 MG/2.5ML SOLN PO SCH ×4 (09:05→20:11)
[2017-05-08] MEDS: RASPBERRY SYRUP 5 ML UDP PO SCH ×4 (09:05→20:11)
[2017-05-08] MEDS: INSULIN ASPART 100 UNITS/ML 3 ML PEN SC SCH ×4 (09:10→21:00)
[2017-05-08 15:05] VITALS: BP 144/75; PULSE 83; TEMP 37; O2SAT 94
[2017-05-08] MEDS ORDERED: TAMSULOSIN HCL 0.4 MG CAP PO ONE (15:30)
[2017-05-08 16:00] VITALS: O2SAT 97
[2017-05-08] MEDS: DIGOXIN 0.125 MG TAB PO SCH (17:06)
--- NOTE | 2017-05-08 18:36 | Progress Note ---
Medicine Progress Note Date & Time of Visit: May 08, 2017 at 18:33. Subjective patient seen resting in bed, comfortable reports polyuria, nocturia, no dysuria had few soft stools today, denies abdominal pain right lower leg continues to improve denies other symptoms Objective Last 8 Hrs Date Time Temp Pulse Resp B/P (MAP) Pulse Ox O2 Delivery O2 Flow Rate FiO2 05/08/17 17:06 72 05/08/17 16:00 97 Room Air 05/08/17 15:05 37.0 83 20 144/75 (98) 94 Physical Exam: General- oriented x 3, not in distress, speaks in sentences with no effort Neck- no JVD Lungs- clear breath sounds bilaterally Heart- regular rhythm; no murmur, normal rate Abdomen- normal bowel sounds, soft, nontender Extremities- mild right lower leg edema- improving, mild warmth- improving, no erythema, no tenderness extending to the ankle, hind foot region , no calf tenderness; peripheral pulses intact Neuro- alert, oriented x 3; no gross focal deficits Skin- warm & dry Laboratory Results: Last 24 Hours Test 05/07/17 20:18 05/08/17 07:35 05/08/17 11:44 05/08/17 16:27 Bedside Glucose 182 mg/dl 152 mg/dl 163 mg/dl 151 mg/dl Assessment & Plan 76 male with history of Scrotal Hematoma, A fib, DM, HTN, JUAN MANUEL presenting with fever/chills, weakness. SEPSIS secondary to SCROTAL WOUND INFECTION RIGHT LEG CELLULITIS On admission WBC, lactic acid and HR elevated with low grade fever Possible related to scrotal wound infection Received IV imipenem, Clinda and Vanco in the ER, continue on Vancomycin and Zosyn X 3 days, then transitioned to PO Cephalexin Day 2 cultures: blood: negative urine: unable to obtain sample -- improving continue Cephalexin Day 8/14 ID consulted, appreciate the input - wound care service consulted C diff Colitis - 3rd episode - on Vancomycin PO Day 6 will need tapering course ID consulted - diarrhea improving daily, monitor 2nd Toe Necrotic Possible Toe ischemic Xray of the L toes showed no evidence for bony destructive process. Soft tissue edema. Arterial doppler of LE showed no significant stenotic process of the left arterial structures. Moderate narrowing right posterior tibial artery with moderate to rather significant retrograde flow within the right dorsalis pedis artery. Vascular consulted Recommended local wound care to prevent infection until completely healed. No surgical intervention HTN not at goal increased Losartan to 50mg BID continue Metoprolol -- resume Lasix -- BP improving PRN Clonidine added DM Type 2 Hba1c 5.4 on 12/06 HBa1c 7.6 hold metformin On insulin coverage Chronic Afib rate improved Coumadin discontinue last month by cardiology due to scrotum hemangioma bleeding Continue metoprolol and digoxin and aspirin Ambulatory dysfunction Continue PT/OT Fall precaution JUAN MANUEL Does not use a CPAP Stable BPH Continue finasteride -- add Flomax -- Lasix changed to MWF Back Pain On hydrocodone prn CT lumbar showed multilevel degenerative disc change at the entire lumbar region.Moderate narrowing of the spinal canal at L2-L3, L3-L4, and most significantly at L4-L5. DVT px SCD (Due to scrotal hemangioma bleeding) High risk for DVT early ambulation CODE STATUS - FULL CODE Dispo discussed with Case Mgt: Alissa Nicolettemarthavinicius- patient/ will be appealing to go to HS Consultants: Vascular surgery Current Inpatient Medications: Current Inpatient Medications Medications (Trade) Dose Ordered Sig/Jakub Route Start Time Stop Time Status Last Admin Dose Admin Aspirin (Ecotrin Tab) 81 mg DAILY PO 04/30/17 09:00 05/30/17 08:59 05/08/17 09:00 81 MG Digoxin (Lanoxin Tab) 0.125 mg DAILY@1600 PO 04/30/17 09:00 05/30/17 08:59 05/08/17 17:06 0.125 MG Docusate Sodium (coLACE CAP) 200 mg DAILY PO 04/30/17 09:00 05/30/17 08:59 05/04/17 09:45 200 MG Finasteride (Proscar Tab) 5 mg QAM PO 04/30/17 09:00 05/30/17 08:59 05/08/17 08:59 5 MG Metoprolol Succinate (Toprol Xl Tab) 200 mg QAM PO 04/30/17 09:00 05/30/17 08:59 05/08/17 08:57 200 MG Insulin Aspart (novoLOG ASPART) SLIDING SCALE If C... ACHS SC 04/29/17 16:30 05/29/17 16:29 05/08/17 12:20 7 UNITS Glucose (Glucose 40% Gel) 15-30 GRAMS 15 GRAMS... UD PRN PO 04/29/17 12:45 05/29/17 12:44 Glucose (Glucose Chew Tab) 4-8 Tablets 4 Tabl... UD PRN PO 04/29/17 12:45 05/29/17 12:44 Dextrose (Dextrose 50% 50ML Syringe) 25-50ML OF 50% DW IV FOR... UD PRN IV 04/29/17 12:45 05/29/17 12:44 Glucagon (Glucagon Inj) 1 mg UD PRN SQ 04/29/17 12:45 05/29/17 12:44 Acetaminophen/ Hydrocodone Bitart ([place] 5/325 Tab) `1-2 tabs for pain 1 tab ... Q6 PRN PO 04/29/17 23:45 05/13/17 11:44 05/08/17 12:17 2 TAB Lorazepam (Ativan Tab) 0.25 mg HS PRN PO 05/01/17 20:30 05/31/17 20:29 05/07/17 23:17 0.25 MG Artificial Tears (Artificial Tears) 1 drops Q2H PRN OP 05/02/17 10:45 06/01/17 10:44 05/02/17 13:21 1 DROPS Vancomycin HCl (Vancomycin Oral Soln) 125 mg QID PO 05/03/17 01:00 05/17/17 00:59 05/08/17 17:12 125 MG Raspberry (Raspberry Syrup 5ml Cup) 5 ml QID PO 05/03/17 01:00 05/17/17 00:59 05/08/17 17:06 5 ML Enteral Nutritional Formula (Boost Glucose Control) 1 can BID PO 05/04/17 20:00 06/03/17 19:59 05/07/17 19:52 1 CAN Losartan Potassium (coZAAR TAB) 50 mg BID PO 05/05/17 08:00 06/04/17 07:59 05/08/17 09:00 50 MG Acetaminophen (Tylenol Tab) 650 mg Q4H PRN PO 05/06/17 16:00 06/05/17 15:59 05/06/17 16:15 650 MG Cephalexin Monohydrate (Keflex Cap) 500 mg QID PO 05/07/17 17:00 05/13/17 16:59 05/08/17 17:06 500 MG Clonidine HCl (Catapres Tab) 0.1 mg Q6H PRN PO 05/07/17 17:00 06/06/17 16:59 05/08/17 09:00 0.1 MG Furosemide (Lasix Tab) 20 mg MoWeFr@0800 PO 05/10/17 08:00 06/09/17 07:59 Tamsulosin HCl (Flomax Cap) 0.4 mg QAM PO 05/09/17 08:00 06/08/17 07:59
--- NOTE | 2017-05-08 19:07 | Infectious Disease Progress Nt ---
Progress Note Date of Service May 08, 2017. Subjective Pt evaluation today including: conversation w/ patient, physical exam, chart review, lab review, review of studies, conversation w/ lead consultant, review of inpatient medication list Offers no new complaints today. Pain in right leg has improved. No worsening scrotal pain. Remains afebrile. No worsening diarrhea. All Other Systems: Reviewed and Negative Medications Current Inpatient Medications Medications (Trade) Dose Ordered Sig/Jakub Route Start Time Stop Time Status Last Admin Dose Admin Aspirin (Ecotrin Tab) 81 mg DAILY PO 04/30/17 09:00 05/30/17 08:59 05/08/17 09:00 81 MG Digoxin (Lanoxin Tab) 0.125 mg DAILY@1600 PO 04/30/17 09:00 05/30/17 08:59 05/08/17 17:06 0.125 MG Docusate Sodium (coLACE CAP) 200 mg DAILY PO 04/30/17 09:00 05/30/17 08:59 05/04/17 09:45 200 MG Finasteride (Proscar Tab) 5 mg QAM PO 04/30/17 09:00 05/30/17 08:59 05/08/17 08:59 5 MG Metoprolol Succinate (Toprol Xl Tab) 200 mg QAM PO 04/30/17 09:00 05/30/17 08:59 05/08/17 08:57 200 MG Insulin Aspart (novoLOG ASPART) SLIDING SCALE If C... ACHS SC 04/29/17 16:30 05/29/17 16:29 05/08/17 12:20 7 UNITS Glucose (Glucose 40% Gel) 15-30 GRAMS 15 GRAMS... UD PRN PO 04/29/17 12:45 05/29/17 12:44 Glucose (Glucose Chew Tab) 4-8 Tablets 4 Tabl... UD PRN PO 04/29/17 12:45 05/29/17 12:44 Dextrose (Dextrose 50% 50ML Syringe) 25-50ML OF 50% DW IV FOR... UD PRN IV 04/29/17 12:45 05/29/17 12:44 Glucagon (Glucagon Inj) 1 mg UD PRN SQ 04/29/17 12:45 05/29/17 12:44 Acetaminophen/ Hydrocodone Bitart ([place] 5/325 Tab) `1-2 tabs for pain 1 tab ... Q6 PRN PO 04/29/17 23:45 05/13/17 11:44 05/08/17 12:17 2 TAB Lorazepam (Ativan Tab) 0.25 mg HS PRN PO 05/01/17 20:30 05/31/17 20:29 05/07/17 23:17 0.25 MG Artificial Tears (Artificial Tears) 1 drops Q2H PRN OP 05/02/17 10:45 06/01/17 10:44 05/02/17 13:21 1 DROPS Vancomycin HCl (Vancomycin Oral Soln) 125 mg QID PO 05/03/17 01:00 05/17/17 00:59 05/08/17 17:12 125 MG Raspberry (Raspberry Syrup 5ml Cup) 5 ml QID PO 05/03/17 01:00 05/17/17 00:59 05/08/17 17:06 5 ML Enteral Nutritional Formula (Boost Glucose Control) 1 can BID PO 05/04/17 20:00 06/03/17 19:59 05/07/17 19:52 1 CAN Losartan Potassium (coZAAR TAB) 50 mg BID PO 05/05/17 08:00 06/04/17 07:59 05/08/17 09:00 50 MG Acetaminophen (Tylenol Tab) 650 mg Q4H PRN PO 05/06/17 16:00 06/05/17 15:59 05/06/17 16:15 650 MG Cephalexin Monohydrate (Keflex Cap) 500 mg QID PO 05/07/17 17:00 05/13/17 16:59 05/08/17 17:06 500 MG Clonidine HCl (Catapres Tab) 0.1 mg Q6H PRN PO 05/07/17 17:00 06/06/17 16:59 05/08/17 09:00 0.1 MG Furosemide (Lasix Tab) 20 mg MoWeFr@0800 PO 05/10/17 08:00 06/09/17 07:59 Tamsulosin HCl (Flomax Cap) 0.4 mg QAM PO 05/09/17 08:00 06/08/17 07:59 Objective Vital Signs Date Time Temp Pulse Resp B/P (MAP) Pulse Ox O2 Delivery O2 Flow Rate FiO2 05/08/17 17:06 72 05/08/17 16:00 97 Room Air 05/08/17 15:05 37.0 83 20 144/75 (98) 94 05/08/17 08:00 96 Room Air 05/08/17 07:17 36.5 103 24 154/87 (109) 96 Room Air 05/08/17 01:36 90 Room Air 2.0 05/07/17 22:54 36.4 81 18 156/82 (106) 90 Room Air 05/07/17 19:30 90 Room Air 2.0 Physical Exam General Appearance: WD/WN, no apparent distress, + obese Eyes: normal inspection, sclerae normal ENT: normal ENT inspection, pharynx normal Neck: supple, no adenopathy, trachea midline Respiratory/Chest: chest non-tender, lungs clear, normal breath sounds, no respiratory distress Cardiovascular: regular rate, rhythm, no gallop, no murmur Abdomen: normal bowel sounds, non tender, soft, no organomegaly Extremities: no calf tenderness, + swelling Neurologic/Psychiatric: alert, oriented x 3 Skin: normal color, no rash, + pertinent finding (resolving right leg erythema) Lymphatic: no adenopathy Laboratory Results Last 24 Hours Test 05/07/17 20:18 05/08/17 07:35 05/08/17 11:44 05/08/17 16:27 Bedside Glucose 182 mg/dl 152 mg/dl 163 mg/dl 151 mg/dl Assessment and Plan 76-year-old male with diabetes mellitus with chronic scrotal ulcerations admitted with right lower extremity cellulitis and possible worsening scrotal infection. Patient now with recurrent C difficile infection, started on vancomycin, would recommend prolonged tapering course of therapy given multiple recurrences. Will continue on current antibiotics for scrotal infection as appears to be improving. Will follow.
[2017-05-08 23:57] VITALS: BP 124/76; PULSE 107; TEMP 36.4; O2SAT 94
[2017-05-09] VITALS (8 sets, daily range): BP systolic 84–154; BP diastolic 51–114; PULSE 88–114; TEMP 36.3–36.8; O2SAT 95–99
[2017-05-09] MEDS: HYDROCODONE/ACETAMOPHEN 5/325MG TAB PO PRN ×2 (02:18→21:13)
[2017-05-09] MEDS: LORAZEPAM 0.5 MG TAB PO PRN (02:18)
--- NOTE | 2017-05-09 06:21 | Progress Note ---
Internal Med Progress Note Date of Service: May 09, 2017. Provider Documentation: Made aware by RN of dark, black stools noted this a.m from patient. No abdominal pain, no emesis as per RN AP ? UGIB Stool Hemoccult Check a.m. CBC Hold aspirin for now. NPO, sips for now. May need IV PPI, GI opinion for possible UGIB if stool Hemoccult positive. Will relay to AM provider. Vital Signs: Date Time Temp Pulse Resp B/P (MAP) Pulse Ox O2 Delivery O2 Flow Rate FiO2 05/09/17 11:36 95 Room Air 05/09/17 08:50 Room Air 05/09/17 08:37 36.3 100 16 84/51 (62) 95 Room Air 05/09/17 07:56 36.3 114 16 154/114 (127) 95 Room Air 05/09/17 00:14 Room Air 05/08/17 23:57 36.4 107 18 124/76 (92) 94 Room Air 05/08/17 20:20 Room Air 05/08/17 17:06 72 05/08/17 16:00 97 Room Air 05/08/17 15:05 37.0 83 20 144/75 (98) 94 Lab Results: Results Past 24 Hours Test 05/08/17 11:44 05/08/17 16:27 05/08/17 21:01 05/09/17 06:34 Range/Units Bedside Glucose 163 151 175 70-99 mg/dl White Blood Count 12.80 4.8-10.8 K/uL Red Blood Count 3.91 4.7-6.1 M/uL Hemoglobin 11.1 14.0-18.0 g/dL Hematocrit 35.1 42-52 % Mean Corpuscular Volume 89.8 80-100 fL Mean Corpuscular Hemoglobin 28.4 25-34 pg Mean Corpuscular Hemoglobin Concent 31.6 32-36 g/dl Platelet Count 379 130-400 K/uL Mean Platelet Volume 9.7 7.4-10.4 fL Neutrophils (%) (Auto) 79.4 % Lymphocytes (%) (Auto) 12.2 % Monocytes (%) (Auto) 6.0 % Eosinophils (%) (Auto) 1.4 % Basophils (%) (Auto) 0.5 % Neutrophils # (Auto) 10.16 1.4-6.5 K/uL Lymphocytes # (Auto) 1.56 1.2-3.4 K/uL Monocytes # (Auto) 0.77 0.11-0.59 K/uL Eosinophils # (Auto) 0.18 0-0.5 K/uL Basophils # (Auto) 0.07 0-0.2 K/uL RDW Standard Deviation 54.1 36.4-46.3 fL RDW Coefficient of Variation 16.7 11.5-14.5 % Immature Granulocyte % (Auto) 0.5 % Immature Granulocyte # (Auto) 0.06 0.00-0.02 K/uL Sodium Level 136 136-145 mmol/L Potassium Level 4.9 3.5-5.1 mmol/L Chloride Level 106 98-107 mmol/L Carbon Dioxide Level 21 21-32 mmol/L Anion Gap 9.0 3-11 mmol/L Blood Urea Nitrogen 99 7-18 mg/dl Creatinine 1.30 0.60-1.40 mg/dl Est Creatinine Clear Calc Drug Dose 69.4 ml/min Estimated GFR () 61.4 Estimated GFR (Non- 53.0 BUN/Creatinine Ratio 76.4 10-20 Random Glucose 181 70-99 mg/dl Calcium Level 8.9 8.5-10.1 mg/dl Test 05/09/17 06:45 05/09/17 08:10 05/09/17 10:43 Range/Units Stool Occult Blood POSITIVE NEGATIVE Bedside Glucose 168 70-99 mg/dl Hemoglobin 11.4 14.0-18.0 g/dL Hematocrit 36.4 42-52 %
[2017-05-09 06:46] LABS: BASO % 0.5 %; BASO ABS # 0.07 K/uL (0-0.2); COMPLETE YES; EOS % 1.4 %; HEMATOCRIT 35.1 % (42-52); IG% 0.5 %; LYMPH % 12.2 %; LYMPH ABS # 1.56 K/uL (1.2-3.4); MEAN CELL VOLUME 89.8 fL (80-100); MEAN CORPUSCULAR HEMOGLOBIN 28.4 pg (25-34); MEAN CORPUSCULAR HGB CONC 31.6 g/dl (32-36); MEAN PLATELET VOLUME 9.7 fL (7.4-10.4); NEUT % 79.4 %; PLATELET COUNT 379 K/uL (130-400); RED BLOOD COUNT 3.91 M/uL (4.7-6.1)
[2017-05-09 07:25] LABS: BUN/CREATININE RATIO 76.4 (10-20); CALCIUM 8.9 mg/dl (8.5-10.1); CREATININE 1.3 mg/dl (0.60-1.40); POTASSIUM 4.9 mmol/L (3.5-5.1)
[2017-05-09] MEDS: DOCUSATE SODIUM 100 MG CAP PO SCH (08:00)
[2017-05-09] MEDS: METOPROLOL SUCC 50MG EXT REL TAB PO SCH (08:00)
[2017-05-09] MEDS: BOOST GLUCOSE CONTROL PO SCH ×2 (08:00→21:00)
[2017-05-09] MEDS: INSULIN ASPART 100 UNITS/ML 3 ML PEN SC SCH ×4 (08:45→21:00)
[2017-05-09] MEDS: LOSARTAN POTASSIUM 50 MG TAB PO SCH (08:55)
[2017-05-09] MEDS: TAMSULOSIN HCL 0.4 MG CAP PO SCH (08:56)
[2017-05-09] MEDS: CEPHALEXIN MONOHYDRATE 500 MG CAP PO SCH ×4 (08:56→21:06)
[2017-05-09] MEDS: RASPBERRY SYRUP 5 ML UDP PO SCH ×4 (08:57→21:06)
[2017-05-09] MEDS: FINASTERIDE 5 MG TAB PO SCH (08:57)
[2017-05-09] MEDS: VANCOMYCIN HCL 125 MG/2.5ML SOLN PO SCH ×4 (08:58→21:06)
[2017-05-09] MEDS ORDERED: PANTOprazole INJ 40 MG in SYRINGE 0 ML IV SCH (09:00)
[2017-05-09 10:57] LABS: HEMATOCRIT 36.4 % (42-52)
--- NOTE | 2017-05-09 11:15 | Progress Note ---
Medicine Progress Note Date & Time of Visit: May 09, 2017 at 11:04. Subjective noted to have black stools since 5am this morning H&H dropped to 11 BP on the lower side reports some lightheadedness when upright on exam, patient laying in bed, alert, oriented x 3, not in distress concerned but appears comfortable overall denies abdominal pain ,nausea no chest pain, dyspnea, palpitations no leg pain Objective Last 8 Hrs Date Time Temp Pulse Resp B/P (MAP) Pulse Ox O2 Delivery O2 Flow Rate FiO2 05/09/17 08:50 Room Air 05/09/17 08:37 36.3 100 16 84/51 (62) 95 Room Air 05/09/17 07:56 36.3 114 16 154/114 (127) 95 Room Air Physical Exam: General- oriented x 3, not in distress, speaks in sentences with no effort Neck- no JVD Lungs- clear breath sounds bilaterally, no rales/wheezes Heart- regular rhythm; no murmur, normal rate Abdomen- normal bowel sounds, non distended, soft, nontender Extremities- trace right lower leg edema, no warmth, no erythema, no tenderness , no calf tenderness; peripheral pulses intact Neuro- alert, oriented x 3; no gross focal deficits Skin- warm & dry Laboratory Results: Last 24 Hours Test 05/08/17 11:44 05/08/17 16:27 05/08/17 21:01 05/09/17 06:34 Bedside Glucose 163 mg/dl 151 mg/dl 175 mg/dl White Blood Count 12.80 K/uL Red Blood Count 3.91 M/uL Hemoglobin 11.1 g/dL Hematocrit 35.1 % Mean Corpuscular Volume 89.8 fL Mean Corpuscular Hemoglobin 28.4 pg Mean Corpuscular Hemoglobin Concent 31.6 g/dl Platelet Count 379 K/uL Mean Platelet Volume 9.7 fL Neutrophils (%) (Auto) 79.4 % Lymphocytes (%) (Auto) 12.2 % Monocytes (%) (Auto) 6.0 % Eosinophils (%) (Auto) 1.4 % Basophils (%) (Auto) 0.5 % Neutrophils # (Auto) 10.16 K/uL Lymphocytes # (Auto) 1.56 K/uL Monocytes # (Auto) 0.77 K/uL Eosinophils # (Auto) 0.18 K/uL Basophils # (Auto) 0.07 K/uL RDW Standard Deviation 54.1 fL RDW Coefficient of Variation 16.7 % Immature Granulocyte % (Auto) 0.5 % Immature Granulocyte # (Auto) 0.06 K/uL Sodium Level 136 mmol/L Potassium Level 4.9 mmol/L Chloride Level 106 mmol/L Carbon Dioxide Level 21 mmol/L Anion Gap 9.0 mmol/L Blood Urea Nitrogen 99 mg/dl Creatinine 1.30 mg/dl Est Creatinine Clear Calc Drug Dose 69.4 ml/min Estimated GFR () 61.4 Estimated GFR (Non- 53.0 BUN/Creatinine Ratio 76.4 Random Glucose 181 mg/dl Calcium Level 8.9 mg/dl Test 05/09/17 06:45 05/09/17 08:10 05/09/17 10:43 Stool Occult Blood POSITIVE Bedside Glucose 168 mg/dl Hemoglobin 11.4 g/dL Hematocrit 36.4 % Assessment & Plan 76 male with history of Scrotal Hematoma, A fib, DM, HTN, JUAN MANUEL presenting with fever/chills, weakness. SEPSIS secondary to SCROTAL WOUND INFECTION RIGHT LEG CELLULITIS On admission WBC, lactic acid and HR elevated with low grade fever Possible related to scrotal wound infection Received IV imipenem, Clinda and Vanco in the ER, continue on Vancomycin and Zosyn X 3 days, then transitioned to PO Cephalexin Day 2 cultures: blood: negative urine: unable to obtain sample -- improved daily continue Cephalexin PO Day 03/16 ID consulted, appreciate the input - wound care service consulted, pls follow recommendations needs careful daily wound care and cleaning after urination/BM to prevent re infection - needs to follow up soon with Urology Interventional Radiology in [facility] for possible repeat Sclerotherapy also needs to follow up with Surgery in [facility] for possible 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 Soft tissue edema. Arterial doppler of LE showed no significant stenotic process of the left arterial structures. Moderate narrowing right posterior tibial artery with moderate to rather significant retrograde flow within the right dorsalis pedis artery. Vascular consulted Recommended local wound care to prevent infection until completely healed. No surgical intervention HTN was not at goal increased Losartan to 50mg BID -- hold for today as BP marginal, r/o GI bleed continue Metoprolol DM Type 2 Hba1c 5.4 on 12/06 HBa1c 7.6 hold metformin On insulin coverage Chronic Afib rate improved Coumadin discontinue last month by cardiology due to scrotum hemangioma bleeding Continue metoprolol and digoxin - hold ASA for possible GI bleed Ambulatory dysfunction Continue PT/OT Fall precautions JUAN MANUEL Does not use a CPAP Stable BPH Continue finasteride -- reporting polyuria, nocturia -- added Flomax 05/08/17 -- Lasix changed to MWF-> held for now in light of GI bleed monitor Back Pain On hydrocodone prn CT lumbar showed multilevel degenerative disc change at the entire lumbar region.Moderate narrowing of the spinal canal at L2-L3, L3-L4, and most significantly at L4-L5. DVT px SCD (Due to scrotal hemangioma bleeding) High risk for DVT early ambulation SCDs CODE STATUS - FULL CODE Dispo peer to peer review done last Monday, Insurance upheld denial for patient to go to family is filing for an appeal, awaiting decision when medically stable, transition to either Rehab or SNF ff up with Dr. Donte Szymanski for PCP ff up with [facility] Interventional Radiology for possible Scrotal Hemangioma Sclerotherapy Consultants: Vascular surgery Current Inpatient Medications: Current Inpatient Medications Medications (Trade) Dose Ordered Sig/Jakub Route Start Time Stop Time Status Last Admin Dose Admin Aspirin (Ecotrin Tab) 81 mg DAILY PO 04/30/17 09:00 05/30/17 08:59 Future Hold 05/08/17 09:00 81 MG Digoxin (Lanoxin Tab) 0.125 mg DAILY@1600 PO 04/30/17 09:00 05/30/17 08:59 05/08/17 17:06 0.125 MG Docusate Sodium (coLACE CAP) 200 mg DAILY PO 04/30/17 09:00 05/30/17 08:59 05/04/17 09:45 200 MG Finasteride (Proscar Tab) 5 mg QAM PO 04/30/17 09:00 05/30/17 08:59 05/09/17 08:57 5 MG Metoprolol Succinate (Toprol Xl Tab) 200 mg QAM PO 04/30/17 09:00 05/30/17 08:59 05/08/17 08:57 200 MG Insulin Aspart (novoLOG ASPART) SLIDING SCALE If C... ACHS SC 04/29/17 16:30 05/29/17 16:29 05/08/17 12:20 7 UNITS Glucose (Glucose 40% Gel) 15-30 GRAMS 15 GRAMS... UD PRN PO 04/29/17 12:45 05/29/17 12:44 Glucose (Glucose Chew Tab) 4-8 Tablets 4 Tabl... UD PRN PO 04/29/17 12:45 05/29/17 12:44 Dextrose (Dextrose 50% 50ML Syringe) 25-50ML OF 50% DW IV FOR... UD PRN IV 04/29/17 12:45 05/29/17 12:44 Glucagon (Glucagon Inj) 1 mg UD PRN SQ 04/29/17 12:45 05/29/17 12:44 Acetaminophen/ Hydrocodone Bitart (Hammond 5/325 Tab) `1-2 tabs for pain 1 tab ... Q6 PRN PO 04/29/17 23:45 05/13/17 11:44 05/09/17 02:18 2 TAB Lorazepam (Ativan Tab) 0.25 mg HS PRN PO 05/01/17 20:30 05/31/17 20:29 05/09/17 02:18 0.25 MG Artificial Tears (Artificial Tears) 1 drops Q2H PRN OP 05/02/17 10:45 06/01/17 10:44 05/02/17 13:21 1 DROPS Vancomycin HCl (Vancomycin Oral Soln) 125 mg QID PO 05/03/17 01:00 05/17/17 00:59 05/09/17 08:58 125 MG Raspberry (Raspberry Syrup 5ml Cup) 5 ml QID PO 05/03/17 01:00 05/17/17 00:59 05/09/17 08:57 5 ML Enteral Nutritional Formula (Boost Glucose Control) 1 can BID PO 05/04/17 20:00 06/03/17 19:59 05/07/17 19:52 1 CAN Losartan Potassium (coZAAR TAB) 50 mg BID PO 05/05/17 08:00 06/04/17 07:59 05/09/17 08:55 50 MG Acetaminophen (Tylenol Tab) 650 mg Q4H PRN PO 05/06/17 16:00 06/05/17 15:59 05/06/17 16:15 650 MG Cephalexin Monohydrate (Keflex Cap) 500 mg QID PO 05/07/17 17:00 05/13/17 16:59 05/09/17 08:56 500 MG Clonidine HCl (Catapres Tab) 0.1 mg Q6H PRN PO 05/07/17 17:00 06/06/17 16:59 05/08/17 09:00 0.1 MG Tamsulosin HCl (Flomax Cap) 0.4 mg QAM PO 05/09/17 08:00 06/08/17 07:59 05/09/17 08:56 0.4 MG Pantoprazole Sodium 40 mg/ Syringe 10 ml @ 5 mls/min DAILY@ IV 05/09/17 09:00 06/08/17 08:59 Sodium Chloride 1,000 ml @ 999 mls/hr Q1H1M IV 05/09/17 10:30 05/09/17 11:30 UNV Sodium Chloride 1,000 ml @ 125 mls/hr Q8H IV 05/09/17 10:30 06/08/17 10:29 UNV Pantoprazole Sodium (Protonix IV Bolus/Drip) 1 ea NOW STAT IV 05/09/17 10:29 05/09/17 10:30 UNV
[2017-05-09] MEDS ORDERED: SODIUM CHLORIDE 0.9% 1000ML 1,000 ML IV SCH (11:30)
[2017-05-09] MEDS ORDERED: PANTOprazole INJ 80 MG in DEXTROSE 5% 100ML IV ONE (12:00)
--- NOTE | 2017-05-09 12:00 | DIAGNOSTIC IMAGING REPORT ---
CT SCAN OF THE ABDOMEN AND PELVIS WITHOUT IV CONTRAST CLINICAL HISTORY: GI bleeding. COMPARISON STUDY: Abdominal CT dated 08/26/16. TECHNIQUE: CT scan of the abdomen and pelvis is performed from the lung bases to the proximal femora. Images are reviewed in the axial, sagittal, and coronal planes. IV contrast was not administered for this examination as per the referring clinician. Note that the examination was performed in suboptimal fashion without oral and IV contrast. The examination is also degraded by large body habitus, and by streak artifact from the body wall abutting the CT gantry. A dose lowering technique was utilized adhering to the principles of ALARA. CT DOSE: 1341.55 mGycm FINDINGS: Lung bases: The heart is mildly enlarged and without pericardial effusion. The coronary arteries are densely calcified. The lung bases are clear. A tiny hiatal hernia is identified. Liver: The unenhanced liver is normal in size and heterogeneous in attenuation. There is nodularity of the hepatic surface contour suggesting early change of cirrhosis. There is no intrahepatic biliary ductal dilatation. Gallbladder: Surgically absent noting clips in the gallbladder fossa. Spleen: Normal in size and attenuation. Pancreas: The unenhanced pancreas is grossly unremarkable. Adrenal glands: Unremarkable. Kidneys: The unenhanced kidneys history cortical atrophy and are without hydronephrosis. There are no renal calculi identified. There are least 2 exophytic cyst arising from the right kidney measuring up to 3.4 cm. Abdominal vasculature: The abdominal aorta is normal in course and caliber noting advanced atherosclerotic calcification. Bowel: The small bowel and colon are normal in course and caliber. There are scattered colonic diverticula without CT evidence of acute diverticulitis. The appendix is normal as visualized. Peritoneum: There is no intraperitoneal free air or abdominal ascites. There is diastases of the rectus musculature with laxity of the ventral abdominal wall. Lymphadenopathy: None. Pelvic viscera: Evaluation of the pelvis is degraded by streak artifact from a right hip arthroplasty. The prostate gland is diminutive. The bladder wall appears thickened and trabeculated suggesting chronic outlet obstruction. There are large bladder diverticula which measure up to 6 cm. Skeletal structures: The skeletal structures are osteopenic. There is moderate to advanced lumbosacral spondylosis. Sclerotic change is seen in the sacroiliac joints. No lytic or blastic lesions are seen. A right hip arthroplasty is in place. IMPRESSION: 1. Suboptimal examination without oral and IV contrast. 2. There are no acute infectious or inflammatory findings in the abdomen or pelvis. 3. There is nodularity of the hepatic surface contour suggesting early change of cirrhosis. 4. There is evidence of chronic bladder outlet obstruction. 5. Cardiomegaly. 6. Additional findings as above. Electronically signed by: Bernardo Toscano M.D. 05/09/2017 11:58 AM Dictated Date/Time: 05/09/2017 11:51 AM
--- NOTE | 2017-05-09 12:27 | Gastrointestinal Consultation ---
Gastrointestinal Consultation Date of Consultation: May 09, 2017 Attending Physician: Ramón Shields Consulting Physician: Carlitos Marti Reason for Consultation: Melena, Hgb dropped, Heme positive stools History of Present Illness Patient is a 76 year old male w PMHx of scrotal hematoma, Afib, HTN, JUAN MANUEL, HTN, admitted for fever, chills, weakness, suspected to have sepsis related to scrotal wound infection. He is also note to have diarrhea, found to be Cdiff positive. He is currently on Keflex and Vancomycin. His urine and blood cx negative. GI consulted as starting this morning around 3AM pt has had 3 episodes of black liquid stools, Hgb dropped from baseline 14 to 11.1. Stools are heme positive. As I am seeing him in his room, he is laying in bed, denies any abd pain, n/v. He had low BP 80s/50s, though RN reports this was BP obtained after he stood up. Repeat BP while laying down 107/70s. He is getting 1L NS bolus. Dr. Shields has ordered transfer to telemetry unit in setting of suspected GI bleed, hypotension. Awaiting bed. He did have colonoscopy in 2004 - diverticulosis. Hx of clean based gastric and duodenal ulcers seen, gastritis, Horvath's esophagus, Hpylori negative - seen via EGD x 2 in 2012. He is on ASA for his Afib, no anticoagulant. No NSAIDs. Past Medical/Surgical History Medical Problems: (1) Acquired buried penis Status: Acute (2) Anticoagulated on warfarin Status: Acute (3) Fever Status: Acute (4) Scrotal bleeding Status: Acute (5) Scrotal infection Status: Acute (6) Testicular mass Status: Acute (7) Urinary retention Status: Acute Past Medical History: See above, DM II, skin hemangioma, hx of Cdiff, hyperlipidemia, Past Surgical History: R THR Cholecystectomy Ureter stent placement Perineal lesion excision T&A Transcatheter ablation Family History Diabetes mellitus SISTER Social History Smoking Status: Unknown if Ever Smoked Alcohol Use: none Drug Use: none Marital Status: Housing Status: lives with family Occupation Status: retired Allergies Coded Allergies: Metronidazole (Verified Allergy, Severe, see below, 08/26/16) Last discharge summary indicates flagyl was stopped for possible temporal relation to foot drop that developed that admission. Amoxicillin (Verified Allergy, Intermediate, rash, 08/26/16) Current Medications Home Meds and Scripts Medications Dose Route/Sig Max Daily Dose Days Date Category Dose Instructions Probiotic (Probiotic Product) 1 Cap Cap 1 Cap PO BID 04/29/17 Reported [place] 5MG/325MG (Acetaminophen/Hydrocodone Bitart) Tab 1 Tablet PO Q6 PRN 04/29/17 Reported PRN PAIN Aspirin Ec (Aspirin) 81 Mg Tab 81 Mg PO DAILY 11/11/16 Reported Ferrous Sulfate 325 Mg Tab 325 Mg PO BID 09/23/16 Reported Losartan Potassium 50 Mg Tab 50 Mg PO QAM 09/23/16 Reported Potassium Chloride Sr (Potassium Chloride) 10 Meq Tab 10 Meq PO QAM 09/23/16 Reported Toprol Xl (Metoprolol Succinate) 200 Mg Tab 200 Mg PO QAM 09/23/16 Reported Finasteride 5 Mg Tab 5 Mg PO QAM 08/26/16 Reported Colace (Docusate Sodium) 100 Mg Cap 200 Mg PO DAILY 06/22/15 Reported Digoxin 0.125 Mg Tab 0.125 Mg PO QAM 06/22/15 Reported Lasix (Furosemide) 20 Mg Tab 20 Mg PO QAM 03/03/13 Reported Glucophage (Metformin Hcl) 500 Mg Tab 500 Mg PO QAM 03/26/12 Reported TAKE THIS MEDICATION ONCE DAILY WITH A MEAL. Review of Systems Constitutional: No fever, No chills Respiratory: No cough, No shortness of breath Cardiac: No chest pain Abdomen: + see HPI, + diarrhea, + GI bleeding, No pain, No nausea, No vomiting Skin: + see HPI (scrotal hematoma previously bleeding. ) Physical Exam Date Time Temp Pulse Resp B/P (MAP) Pulse Ox O2 Delivery O2 Flow Rate FiO2 05/09/17 12:12 98/61 (73) 05/09/17 11:36 95 Room Air 05/09/17 08:50 Room Air 05/09/17 08:37 36.3 100 16 84/51 (62) 95 Room Air 05/09/17 07:56 36.3 114 16 154/114 (127) 95 Room Air 05/09/17 00:14 Room Air 05/08/17 23:57 36.4 107 18 124/76 (92) 94 Room Air 05/08/17 20:20 Room Air 05/08/17 17:06 72 05/08/17 16:00 97 Room Air 05/08/17 15:05 37.0 83 20 144/75 (98) 94 General Appearance: no apparent distress, + obese Eyes: normal inspection, PERRL, EOMI Neck: supple, no JVD, trachea midline Respiratory/Chest: normal breath sounds, no respiratory distress, no accessory muscle use Cardiovascular: regular rate, rhythm, no gallop, no murmur Abdomen: normal bowel sounds, non tender, soft, + pertinent finding (stool appears melanotic (in bedside commode)) Neurologic/Psych: alert, normal mood/affect, oriented x 3 Skin: normal color, no jaundice, no rash Laboratory Results Last 24 Hours Test 05/08/17 16:27 05/08/17 21:01 05/09/17 06:34 05/09/17 06:45 Bedside Glucose 151 mg/dl 175 mg/dl White Blood Count 12.80 K/uL Red Blood Count 3.91 M/uL Hemoglobin 11.1 g/dL Hematocrit 35.1 % Mean Corpuscular Volume 89.8 fL Mean Corpuscular Hemoglobin 28.4 pg Mean Corpuscular Hemoglobin Concent 31.6 g/dl Platelet Count 379 K/uL Mean Platelet Volume 9.7 fL Neutrophils (%) (Auto) 79.4 % Lymphocytes (%) (Auto) 12.2 % Monocytes (%) (Auto) 6.0 % Eosinophils (%) (Auto) 1.4 % Basophils (%) (Auto) 0.5 % Neutrophils # (Auto) 10.16 K/uL Lymphocytes # (Auto) 1.56 K/uL Monocytes # (Auto) 0.77 K/uL Eosinophils # (Auto) 0.18 K/uL Basophils # (Auto) 0.07 K/uL RDW Standard Deviation 54.1 fL RDW Coefficient of Variation 16.7 % Immature Granulocyte % (Auto) 0.5 % Immature Granulocyte # (Auto) 0.06 K/uL Sodium Level 136 mmol/L Potassium Level 4.9 mmol/L Chloride Level 106 mmol/L Carbon Dioxide Level 21 mmol/L Anion Gap 9.0 mmol/L Blood Urea Nitrogen 99 mg/dl Creatinine 1.30 mg/dl Est Creatinine Clear Calc Drug Dose 69.4 ml/min Estimated GFR () 61.4 Estimated GFR (Non- 53.0 BUN/Creatinine Ratio 76.4 Random Glucose 181 mg/dl Calcium Level 8.9 mg/dl Stool Occult Blood POSITIVE Test 05/09/17 08:10 05/09/17 10:43 Bedside Glucose 168 mg/dl Hemoglobin 11.4 g/dL Hematocrit 36.4 % Impression Patient is a 76 year old male admitted for sepsis suspected to be from scrotal wound, + Cdiff, started to have melena x 3 episodes this AM, heme positive stool , Hgb dropped from 14->11. BP 80s/50s (likely orthostatic). Repeat BP 107/70s. Hx of gastric and duodenal ulcers, Horvath's esophagus in 2012. Plan - NPO - Start PPI bolus & gtt - Agree w NS bolus, Type & Cross - EGD w Dr. Marti once hemodynamically more stable - For Cdiff: Add Flagyl 500mg TID, continue Vancomycin 125mg QID. - Obtain CT abd/pelvis. I have seen, examined and agree with the plan as outlined by FRANCESCO Ely as above. -exam reveals soft abd -Bout of melena -Plan for EGD today Carlitos Marti M.D.
[2017-05-09] MEDS ORDERED: PHENYLEPHRINE 100MCG/ML 5ML SYR ONE (13:08)
[2017-05-09] MEDS ORDERED: METOPROLOL TARTRATE 1 MG/ML VIAL ONE (13:08)
[2017-05-09] MEDS ORDERED: PROPOFOL IV EMULSION 10 MG/ML 20 ML VIAL IV ONE (13:08)
[2017-05-09] MEDS ORDERED: LIDOCAINE HCL 2% 2 ML VIAL (20MG/ML) ONE (13:08)
--- NOTE | 2017-05-09 13:23 | GI REPORT ---
Procedure Date: 05/09/2017 1:02 PM Procedure: Upper GI endoscopy Indications: Melena Medicines: General Anesthesia Complications: No immediate complications. Estimated Blood Loss: Estimated blood loss: none. Procedure: Pre-Anesthesia Assessment: - Pre-Anesthesia Assessment: - Prior to the procedure, a History and Physical was performed, and patient medications, allergies and sensitivities were reviewed. The patient's tolerance of previous anesthesia was reviewed. Please see [facility] Work Study for complete details. - The risks and benefits of the procedure and the sedation options and risks were discussed with the patient. All questions were answered and informed consent was obtained. - Patient identification and proposed procedure were verified prior to the procedure by the physician and the nurse. The procedure was verified in the pre-procedure area in the procedure room. After obtaining informed consent, the endoscope was passed carefully and meticuously under direct vision and only advanced when the lumen was clearly identified, C02 insuflation was utilized throughout the entirity of the procedure. Throughout the procedure, the patient's blood pressure, pulse, and oxygen saturations were monitored continuously. After obtaining informed consent, the endoscope was passed under direct vision. Throughout the procedure, the patient's blood pressure, pulse, and oxygen saturations were monitored continuously. The scope was introduced through the mouth, and advanced to the second part of duodenum. The upper GI endoscopy was accomplished without difficulty. The patient tolerated the procedure well. Findings: LA Grade B (one or more mucosal breaks greater than 5 mm, not extending between the tops of two mucosal folds) esophagitis with no bleeding was found. One non-bleeding cratered gastric ulcer with a nonbleeding visible vessel (Melvin Class IIa) was found at the pylorus. The lesion was 10 mm in largest dimension. Area was successfully injected with 3 mL of a 1:10,000 solution of epinephrine for hemostasis. Coagulation for bleeding prevention using bipolar probe was successful at 20 W. To further reduce risk of rebleeding, two hemostatic clips were successfully placed (MR conditional). There was no bleeding during, and at the end, of the procedure. The examined duodenum was normal. Impression: - LA Grade B reflux esophagitis. - Non-bleeding gastric ulcer with a nonbleeding visible vessel (Melvin Class IIa). Injected. Treated with bipolar cautery. Clips (MR conditional) were placed. - Normal examined duodenum. - No specimens collected. Recommendation: - [facility]. - Give Protonix (pantoprazole): initiate therapy with 80 mg IV bolus, then 8 mg/hr IV by continuous infusion 72 hrs. - Clear liquid diet can be started at dinner. - Support hemodynamics - Will need repeat EGD in 6 wks to ensure healing Carlitos Marti MD 05/09/2017 1:23:32 PM This report has been signed electronically. Note Initiated On: 05/09/2017 1:02 PM I attest to the content of the Intraoperative Record and orders documented therein, exceptions below
--- NOTE | 2017-05-09 14:27 | Anesthesiology Progress Note ---
Anesthesia Post Op Note Date & Time May 09, 2017 at 14:26 Vital Signs Pain Intensity: 0.0 Vital Signs Past 12 Hours Date Time Temp Pulse Resp B/P (MAP) Pulse Ox O2 Delivery O2 Flow Rate FiO2 05/09/17 12:15 36.5 96 12 154/51 (85) 95 Room Air 05/09/17 12:13 105 108/71 (83) 05/09/17 12:12 98/61 (73) 05/09/17 11:36 95 Room Air 05/09/17 08:50 Room Air 05/09/17 08:37 36.3 100 16 84/51 (62) 95 Room Air 05/09/17 07:56 36.3 114 16 154/114 (127) 95 Room Air Notes Mental Status: alert / awake / arousable, participated in evaluation Pt Amnestic to Procedure: Yes Nausea / Vomiting: adequately controlled Pain: adequately controlled Airway Patency, RR, SpO2: stable & adequate BP & HR: stable & adequate Hydration State: stable & adequate Anesthetic Complications: no major complications apparent
[2017-05-09] MEDS: SODIUM CHLORIDE 0.9% 1000ML 1,000 ML IV SCH ×2 (15:01→21:13)
--- NOTE | 2017-05-09 15:12 | Infectious Disease Progress Nt ---
Progress Note Date of Service May 09, 2017. Subjective Pt evaluation today including: conversation w/ patient, physical exam, chart review, lab review, review of studies, conversation w/ rehabilitation consultant, review of inpatient medication list Events reviewed. Episode of melanotic stools with drop in hemoglobin, had endoscopy today with finding of nonbleeding esophageal tear and gastric ulcer. Appears to have subsided. No other new complaints. Pain in right leg improving.Denies abdominal pain. No fever. All Other Systems: Reviewed and Negative Medications Current Inpatient Medications Medications (Trade) Dose Ordered Sig/Jakub Route Start Time Stop Time Status Last Admin Dose Admin Aspirin (Ecotrin Tab) 81 mg DAILY PO 04/30/17 09:00 05/30/17 08:59 Future Hold 05/08/17 09:00 81 MG Digoxin (Lanoxin Tab) 0.125 mg DAILY@1600 PO 04/30/17 09:00 05/30/17 08:59 05/08/17 17:06 0.125 MG Finasteride (Proscar Tab) 5 mg QAM PO 04/30/17 09:00 05/30/17 08:59 05/09/17 08:57 5 MG Metoprolol Succinate (Toprol Xl Tab) 200 mg QAM PO 04/30/17 09:00 05/30/17 08:59 05/08/17 08:57 200 MG Insulin Aspart (novoLOG ASPART) SLIDING SCALE If C... ACHS SC 04/29/17 16:30 05/29/17 16:29 05/08/17 12:20 7 UNITS Glucose (Glucose 40% Gel) 15-30 GRAMS 15 GRAMS... UD PRN PO 04/29/17 12:45 05/29/17 12:44 Glucose (Glucose Chew Tab) 4-8 Tablets 4 Tabl... UD PRN PO 04/29/17 12:45 05/29/17 12:44 Dextrose (Dextrose 50% 50ML Syringe) 25-50ML OF 50% DW IV FOR... UD PRN IV 04/29/17 12:45 05/29/17 12:44 Glucagon (Glucagon Inj) 1 mg UD PRN SQ 04/29/17 12:45 05/29/17 12:44 Acetaminophen/ Hydrocodone Bitart ([place] 5/325 Tab) `1-2 tabs for pain 1 tab ... Q6 PRN PO 04/29/17 23:45 05/13/17 11:44 05/09/17 02:18 2 TAB Lorazepam (Ativan Tab) 0.25 mg HS PRN PO 05/01/17 20:30 05/31/17 20:29 05/09/17 02:18 0.25 MG Artificial Tears (Artificial Tears) 1 drops Q2H PRN OP 05/02/17 10:45 06/01/17 10:44 05/02/17 13:21 1 DROPS Vancomycin HCl (Vancomycin Oral Soln) 125 mg QID PO 05/03/17 01:00 05/17/17 00:59 05/09/17 08:58 125 MG Raspberry (Raspberry Syrup 5ml Cup) 5 ml QID PO 05/03/17 01:00 05/17/17 00:59 05/09/17 08:57 5 ML Enteral Nutritional Formula (Boost Glucose Control) 1 can BID PO 05/04/17 20:00 06/03/17 19:59 05/07/17 19:52 1 CAN Acetaminophen (Tylenol Tab) 650 mg Q4H PRN PO 05/06/17 16:00 06/05/17 15:59 05/06/17 16:15 650 MG Cephalexin Monohydrate (Keflex Cap) 500 mg QID PO 05/07/17 17:00 05/13/17 16:59 05/09/17 08:56 500 MG Clonidine HCl (Catapres Tab) 0.1 mg Q6H PRN PO 05/07/17 17:00 06/06/17 16:59 05/08/17 09:00 0.1 MG Tamsulosin HCl (Flomax Cap) 0.4 mg QAM PO 05/09/17 08:00 06/08/17 07:59 05/09/17 08:56 0.4 MG Sodium Chloride 1,000 ml @ 125 mls/hr Q8H IV 05/09/17 12:30 06/08/17 12:29 05/09/17 15:01 125 MLS/HR Pantoprazole Sodium 40 mg/ Dextrose 100 ml @ 20 mls/hr Q5H IV 05/09/17 12:15 06/08/17 12:14 Objective Vital Signs Date Time Temp Pulse Resp B/P (MAP) Pulse Ox O2 Delivery O2 Flow Rate FiO2 05/09/17 14:20 98 20 109/47 (67) 94 Room Air 05/09/17 14:10 93 20 103/47 (65) 93 Room Air 05/09/17 13:47 87 20 114/53 (73) 94 Room Air 05/09/17 13:37 97 20 110/44 (66) 93 Room Air 05/09/17 13:27 104 20 122/64 (83) 99 Mask 10 05/09/17 12:15 36.5 96 12 154/51 (85) 95 Room Air 05/09/17 12:13 105 108/71 (83) 05/09/17 12:12 98/61 (73) 05/09/17 11:36 95 Room Air 05/09/17 08:50 Room Air 05/09/17 08:37 36.3 100 16 84/51 (62) 95 Room Air 05/09/17 07:56 36.3 114 16 154/114 (127) 95 Room Air 05/09/17 00:14 Room Air 05/08/17 23:57 36.4 107 18 124/76 (92) 94 Room Air 05/08/17 20:20 Room Air 05/08/17 17:06 72 05/08/17 16:00 97 Room Air Physical Exam General Appearance: WD/WN, no apparent distress Eyes: normal inspection, EOMI, sclerae normal ENT: normal ENT inspection, pharynx normal Neck: supple, no adenopathy, thyroid normal, trachea midline Respiratory/Chest: chest non-tender, lungs clear, normal breath sounds, no respiratory distress Cardiovascular: regular rate, rhythm, no gallop, no murmur Abdomen: normal bowel sounds, non tender, soft, no organomegaly Extremities: + inflammation, + swelling Neurologic/Psychiatric: alert, oriented x 3 Skin: normal color, no rash, + pertinent finding (Improving lower extremity erythema and scrotal erythema) Lymphatic: no adenopathy Laboratory Results Last 24 Hours Test 05/08/17 16:27 05/08/17 21:01 05/09/17 06:34 05/09/17 06:45 Bedside Glucose 151 mg/dl 175 mg/dl White Blood Count 12.80 K/uL Red Blood Count 3.91 M/uL Hemoglobin 11.1 g/dL Hematocrit 35.1 % Mean Corpuscular Volume 89.8 fL Mean Corpuscular Hemoglobin 28.4 pg Mean Corpuscular Hemoglobin Concent 31.6 g/dl Platelet Count 379 K/uL Mean Platelet Volume 9.7 fL Neutrophils (%) (Auto) 79.4 % Lymphocytes (%) (Auto) 12.2 % Monocytes (%) (Auto) 6.0 % Eosinophils (%) (Auto) 1.4 % Basophils (%) (Auto) 0.5 % Neutrophils # (Auto) 10.16 K/uL Lymphocytes # (Auto) 1.56 K/uL Monocytes # (Auto) 0.77 K/uL Eosinophils # (Auto) 0.18 K/uL Basophils # (Auto) 0.07 K/uL RDW Standard Deviation 54.1 fL RDW Coefficient of Variation 16.7 % Immature Granulocyte % (Auto) 0.5 % Immature Granulocyte # (Auto) 0.06 K/uL Sodium Level 136 mmol/L Potassium Level 4.9 mmol/L Chloride Level 106 mmol/L Carbon Dioxide Level 21 mmol/L Anion Gap 9.0 mmol/L Blood Urea Nitrogen 99 mg/dl Creatinine 1.30 mg/dl Est Creatinine Clear Calc Drug Dose 69.4 ml/min Estimated GFR () 61.4 Estimated GFR (Non- 53.0 BUN/Creatinine Ratio 76.4 Random Glucose 181 mg/dl Calcium Level 8.9 mg/dl Stool Occult Blood POSITIVE Test 05/09/17 08:10 05/09/17 10:43 Bedside Glucose 168 mg/dl Hemoglobin 11.4 g/dL Hematocrit 36.4 % Assessment and Plan 76-year-old male with diabetes mellitus with chronic scrotal ulcerations admitted with right lower extremity cellulitis and possible worsening scrotal infection. Patient now with recurrent C difficile infection, started on vancomycin, would recommend prolonged tapering course of therapy given multiple recurrences. Will continue on current antibiotics for scrotal infection and cellulitis as appears to be improving. Will follow.
[2017-05-09] MEDS ORDERED: ONDANSETRON 4MG OD TAB PO PRN (15:15)
[2017-05-09] MEDS: PANTOprazole INJ 40 MG in DEXTROSE 5% 100ML IV SCH ×2 (15:21→20:09)
[2017-05-09] MEDS: DIGOXIN 0.125 MG TAB PO SCH (15:52)
[2017-05-09] MEDS ORDERED: ONDANSETRON INJ 2 MG/ML 2 ML VIAL IV. PRN (17:00)
[2017-05-09 17:25] LABS: HEMATOCRIT 32.7 % (42-52)
[2017-05-10] VITALS (8 sets, daily range): BP systolic 111–144; BP diastolic 61–78; PULSE 77–92; TEMP 36.4–36.5; O2SAT 90–99
[2017-05-10] MEDS: PANTOprazole INJ 40 MG in DEXTROSE 5% 100ML IV SCH ×6 (01:02→23:48)
[2017-05-10] MEDS: LORAZEPAM 0.5 MG TAB PO PRN ×2 (02:57→23:48)
[2017-05-10] MEDS: SODIUM CHLORIDE 0.9% 1000ML 1,000 ML IV SCH ×3 (04:16→19:05)
[2017-05-10 05:00] LABS: HEMATOCRIT 32.2 % (42-52)
[2017-05-10 05:32] LABS: BUN/CREATININE RATIO 60.9 (10-20); CALCIUM 8.1 mg/dl (8.5-10.1); CREATININE 1.15 mg/dl (0.60-1.40); POTASSIUM 4.3 mmol/L (3.5-5.1)
[2017-05-10] MEDS ORDERED: FUROSEMIDE 20 MG TAB PO SCH (08:00)
[2017-05-10] MEDS: INSULIN ASPART 100 UNITS/ML 3 ML PEN SC SCH ×4 (08:02→21:00)
[2017-05-10] MEDS: FINASTERIDE 5 MG TAB PO SCH (08:28)
[2017-05-10] MEDS: CEPHALEXIN MONOHYDRATE 500 MG CAP PO SCH ×4 (08:28→21:25)
[2017-05-10] MEDS: TAMSULOSIN HCL 0.4 MG CAP PO SCH (08:30)
[2017-05-10] MEDS: METOPROLOL SUCC 50MG EXT REL TAB PO SCH (08:30)
[2017-05-10] MEDS: RASPBERRY SYRUP 5 ML UDP PO SCH ×4 (08:31→19:06)
[2017-05-10] MEDS: VANCOMYCIN HCL 125 MG/2.5ML SOLN PO SCH ×4 (08:32→19:08)
[2017-05-10] MEDS ORDERED: NURSING DECISION MEDICATION ORDER SCH (09:30)
[2017-05-10] MEDS: BOOST GLUCOSE CONTROL PO SCH ×2 (10:22→20:53)
[2017-05-10] MEDS: ACETAMINOPHEN 325 MG TAB PO PRN (10:32)
--- NOTE | 2017-05-10 11:14 | Gastroenterology Progress Note ---
Progress Note Date of Service: May 10, 2017 Subjective Pt evaluation today including: conversation w/ patient, physical exam, chart review, lab review, review of inpatient medication list Pt had a small liquid black stool last night, none this AM. Hgb 9.9, similar to last night. He is hemodynamically stable. Denies any n/v, abd pain. Tolerating CL diet well. Review of Systems Constitutional: No fever, No chills Respiratory: No cough, No shortness of breath Cardiac: No chest pain Abdomen: No pain, No nausea, No vomiting Medications Current Inpatient Medications Medications (Trade) Dose Ordered Sig/Jakub Route Start Time Stop Time Status Last Admin Dose Admin Aspirin (Ecotrin Tab) 81 mg DAILY PO 04/30/17 09:00 05/30/17 08:59 Future Hold 05/08/17 09:00 81 MG Digoxin (Lanoxin Tab) 0.125 mg DAILY@1600 PO 04/30/17 09:00 05/30/17 08:59 05/09/17 15:52 0.125 MG Finasteride (Proscar Tab) 5 mg QAM PO 04/30/17 09:00 05/30/17 08:59 05/10/17 08:28 5 MG Metoprolol Succinate (Toprol Xl Tab) 200 mg QAM PO 04/30/17 09:00 05/30/17 08:59 05/10/17 08:30 200 MG Insulin Aspart (novoLOG ASPART) SLIDING SCALE If C... ACHS SC 04/29/17 16:30 05/29/17 16:29 05/10/17 08:02 2 UNITS Glucose (Glucose 40% Gel) 15-30 GRAMS 15 GRAMS... UD PRN PO 04/29/17 12:45 05/29/17 12:44 Glucose (Glucose Chew Tab) 4-8 Tablets 4 Tabl... UD PRN PO 04/29/17 12:45 05/29/17 12:44 Dextrose (Dextrose 50% 50ML Syringe) 25-50ML OF 50% DW IV FOR... UD PRN IV 04/29/17 12:45 05/29/17 12:44 Glucagon (Glucagon Inj) 1 mg UD PRN SQ 04/29/17 12:45 05/29/17 12:44 Acetaminophen/ Hydrocodone Bitart ([place] 5/325 Tab) `1-2 tabs for pain 1 tab ... Q6 PRN PO 04/29/17 23:45 05/13/17 11:44 05/09/17 21:13 2 TAB Lorazepam (Ativan Tab) 0.25 mg HS PRN PO 05/01/17 20:30 05/31/17 20:29 05/10/17 02:57 0.25 MG Artificial Tears (Artificial Tears) 1 drops Q2H PRN OP 05/02/17 10:45 06/01/17 10:44 05/02/17 13:21 1 DROPS Vancomycin HCl (Vancomycin Oral Soln) 125 mg QID PO 05/03/17 01:00 05/17/17 00:59 05/10/17 08:32 125 MG Raspberry (Raspberry Syrup 5ml Cup) 5 ml QID PO 05/03/17 01:00 05/17/17 00:59 05/10/17 08:31 5 ML Enteral Nutritional Formula (Boost Glucose Control) 1 can BID PO 05/04/17 20:00 06/03/17 19:59 05/10/17 10:22 1 CAN Acetaminophen (Tylenol Tab) 650 mg Q4H PRN PO 05/06/17 16:00 06/05/17 15:59 05/10/17 10:32 650 MG Cephalexin Monohydrate (Keflex Cap) 500 mg QID PO 05/07/17 17:00 05/13/17 16:59 05/10/17 08:28 500 MG Clonidine HCl (Catapres Tab) 0.1 mg Q6H PRN PO 05/07/17 17:00 06/06/17 16:59 05/08/17 09:00 0.1 MG Tamsulosin HCl (Flomax Cap) 0.4 mg QAM PO 05/09/17 08:00 06/08/17 07:59 05/10/17 08:30 0.4 MG Sodium Chloride 1,000 ml @ 125 mls/hr Q8H IV 05/09/17 12:30 06/08/17 12:29 05/10/17 04:16 125 MLS/HR Pantoprazole Sodium 40 mg/ Dextrose 100 ml @ 20 mls/hr Q5H IV 05/09/17 12:15 06/08/17 12:14 05/10/17 10:21 20 MLS/HR Ondansetron HCl (Zofran Inj) 4 mg Q6H PRN IV. 05/09/17 17:00 06/08/17 16:59 Menthol/Zinc Oxide (Calmoseptine Oint) 1 appln BID EXT 05/10/17 21:00 06/09/17 20:59 Objective Vital Signs Date Time Temp Pulse Resp B/P (MAP) Pulse Ox O2 Delivery O2 Flow Rate FiO2 05/10/17 10:23 36.4 77 18 133/78 (96) 94 Room Air 05/10/17 08:41 Room Air 05/10/17 08:00 Room Air 05/10/17 07:18 36.4 92 16 122/61 (81) 91 Room Air 05/10/17 04:00 97 Room Air 05/10/17 03:01 36.4 89 20 121/69 (86) 97 05/10/17 00:00 99 Room Air 05/09/17 23:38 36.8 88 19 136/70 (92) 99 05/09/17 20:00 99 Room Air 05/09/17 19:26 36.5 99 20 138/72 (94) 99 Room Air 05/09/17 16:00 Room Air 05/09/17 15:52 92 05/09/17 14:20 98 20 109/47 (67) 94 Room Air 05/09/17 14:10 93 20 103/47 (65) 93 Room Air 05/09/17 13:47 87 20 114/53 (73) 94 Room Air 05/09/17 13:37 97 20 110/44 (66) 93 Room Air 05/09/17 13:27 104 20 122/64 (83) 99 Mask 10 05/09/17 12:15 36.5 96 12 154/51 (85) 95 Room Air 05/09/17 12:13 105 108/71 (83) 05/09/17 12:12 98/61 (73) 05/09/17 11:36 95 Room Air Physical Exam General Appearance: WD/WN, no apparent distress, + obese Eyes: normal inspection, PERRL, EOMI Neck: supple, no JVD, trachea midline Respiratory/Chest: normal breath sounds, no respiratory distress, no accessory muscle use Cardiovascular: regular rate, rhythm, no gallop, no murmur Abdomen: normal bowel sounds, non tender, soft Extremities: normal inspection, no pedal edema, no calf tenderness Neurologic/Psych: alert, normal mood/affect, oriented x 3 Skin: no jaundice, no rash, + pertinent finding (lower extremities skin dark brown/dusky discoloration ) Laboratory Results Last 24 Hours Test 05/09/17 15:23 05/09/17 17:01 05/09/17 20:05 05/09/17 22:56 Bedside Glucose 183 mg/dl 171 mg/dl Hemoglobin 10.5 g/dL 9.9 g/dL Hematocrit 32.7 % 31.0 % Test 05/10/17 04:48 05/10/17 07:23 Hemoglobin 9.6 g/dL Hematocrit 32.2 % Sodium Level 141 mmol/L Potassium Level 4.3 mmol/L Chloride Level 113 mmol/L Carbon Dioxide Level 19 mmol/L Anion Gap 9.0 mmol/L Blood Urea Nitrogen 70 mg/dl Creatinine 1.15 mg/dl Est Creatinine Clear Calc Drug Dose 79.0 ml/min Estimated GFR () 71.2 Estimated GFR (Non- 61.5 BUN/Creatinine Ratio 60.9 Random Glucose 137 mg/dl Calcium Level 8.1 mg/dl Bedside Glucose 132 mg/dl Assessment and Plan Patient is a 76 year old male admitted for sepsis suspected to be from scrotal wound, + Cdiff, started to have melena x 3 episodes this AM, heme positive stool , Hgb dropped from 14->11. BP 80s/50s (likely orthostatic). Repeat BP 107/70s. Hx of gastric and duodenal ulcers, Horvath's esophagus in 2012. CT abd/pelvis w/o contrast: suboptimal study, + liver nodularity suspected early changes cirrhosis, no acute bowel pathology, chronic bladder outlet obstruction EGD on 05/09 showed LA grade B reflux esophagitis, gastric ulcer w visible non bleeding vessel - cauterized and clipped. Hgb stable since last night. He did have a another melanotic stool last night none today. Denies any abd pain, n/v, tolerating CL diet. Plans - Advanced to [place] diet. - PPI gtt x 72 hrs total then continue BID dosing. - Monitor H/H and transfuse prn. - Repeat EGD in 6 week's time to check ulcer healing. - For Cdiff: continue Vancomycin 125mg QID. No Flagyl (allergic) - May workup possible cirrhosis in outpt setting once his acute issues (sepsis, gastric ulcer, Cdiff) are resolved. Attnd Addm: I have seen, examined, and agree with the plan as outlined above by FRANCESCO Chance. no signs of bleeding, diarrhea has improved Carlitos Marti M.D.
[2017-05-10] MEDS: HYDROCODONE/ACETAMOPHEN 5/325MG TAB PO PRN ×2 (12:28→18:34)
--- NOTE | 2017-05-10 16:21 | Infectious Disease Progress Nt ---
Progress Note Date of Service May 10, 2017. Subjective Pt evaluation today including: conversation w/ patient, physical exam, chart review, lab review, review of studies, conversation w/ recruitment consultant, review of inpatient medication list Patient with 1 melanotic stool, hemoglobin remains stable. No worsening leg pain or scrotal pain. No fever or chills. No worsening diarrhea. All Other Systems: Reviewed and Negative Medications Current Inpatient Medications Medications (Trade) Dose Ordered Sig/Jakub Route Start Time Stop Time Status Last Admin Dose Admin Aspirin (Ecotrin Tab) 81 mg DAILY PO 04/30/17 09:00 05/30/17 08:59 Future Hold 05/08/17 09:00 81 MG Digoxin (Lanoxin Tab) 0.125 mg DAILY@1600 PO 04/30/17 09:00 05/30/17 08:59 05/09/17 15:52 0.125 MG Finasteride (Proscar Tab) 5 mg QAM PO 04/30/17 09:00 05/30/17 08:59 05/10/17 08:28 5 MG Metoprolol Succinate (Toprol Xl Tab) 200 mg QAM PO 04/30/17 09:00 05/30/17 08:59 05/10/17 08:30 200 MG Insulin Aspart (novoLOG ASPART) SLIDING SCALE If C... ACHS SC 04/29/17 16:30 05/29/17 16:29 05/10/17 12:28 6 UNITS Glucose (Glucose 40% Gel) 15-30 GRAMS 15 GRAMS... UD PRN PO 04/29/17 12:45 05/29/17 12:44 Glucose (Glucose Chew Tab) 4-8 Tablets 4 Tabl... UD PRN PO 04/29/17 12:45 05/29/17 12:44 Dextrose (Dextrose 50% 50ML Syringe) 25-50ML OF 50% DW IV FOR... UD PRN IV 04/29/17 12:45 05/29/17 12:44 Glucagon (Glucagon Inj) 1 mg UD PRN SQ 04/29/17 12:45 05/29/17 12:44 Acetaminophen/ Hydrocodone Bitart ([place] 5/325 Tab) `1-2 tabs for pain 1 tab ... Q6 PRN PO 04/29/17 23:45 05/13/17 11:44 05/10/17 12:28 2 TAB Lorazepam (Ativan Tab) 0.25 mg HS PRN PO 05/01/17 20:30 05/31/17 20:29 05/10/17 02:57 0.25 MG Artificial Tears (Artificial Tears) 1 drops Q2H PRN OP 05/02/17 10:45 06/01/17 10:44 05/02/17 13:21 1 DROPS Vancomycin HCl (Vancomycin Oral Soln) 125 mg QID PO 05/03/17 01:00 05/17/17 00:59 05/10/17 12:25 125 MG Raspberry (Raspberry Syrup 5ml Cup) 5 ml QID PO 05/03/17 01:00 05/17/17 00:59 05/10/17 12:24 5 ML Enteral Nutritional Formula (Boost Glucose Control) 1 can BID PO 05/04/17 20:00 06/03/17 19:59 05/10/17 10:22 1 CAN Acetaminophen (Tylenol Tab) 650 mg Q4H PRN PO 05/06/17 16:00 06/05/17 15:59 05/10/17 10:32 650 MG Cephalexin Monohydrate (Keflex Cap) 500 mg QID PO 05/07/17 17:00 05/13/17 16:59 05/10/17 12:23 500 MG Clonidine HCl (Catapres Tab) 0.1 mg Q6H PRN PO 05/07/17 17:00 06/06/17 16:59 05/08/17 09:00 0.1 MG Tamsulosin HCl (Flomax Cap) 0.4 mg QAM PO 05/09/17 08:00 06/08/17 07:59 05/10/17 08:30 0.4 MG Sodium Chloride 1,000 ml @ 125 mls/hr Q8H IV 05/09/17 12:30 06/08/17 12:29 05/10/17 11:49 125 MLS/HR Pantoprazole Sodium 40 mg/ Dextrose 100 ml @ 20 mls/hr Q5H IV 05/09/17 12:15 06/08/17 12:14 05/10/17 10:21 20 MLS/HR Ondansetron HCl (Zofran Inj) 4 mg Q6H PRN IV. 05/09/17 17:00 12/7/17 16:59 Menthol/Zinc Oxide (Calmoseptine Oint) 1 appln BID EXT 05/10/17 21:00 06/09/17 20:59 Objective Vital Signs Date Time Temp Pulse Resp B/P (MAP) Pulse Ox O2 Delivery O2 Flow Rate FiO2 05/10/17 15:10 36.4 82 20 113/62 (79) 96 Room Air 05/10/17 12:00 Room Air 05/10/17 10:23 36.4 77 18 133/78 (96) 94 Room Air 05/10/17 08:41 Room Air 05/10/17 08:00 Room Air 05/10/17 07:18 36.4 92 16 122/61 (81) 91 Room Air 05/10/17 04:00 97 Room Air 05/10/17 03:01 36.4 89 20 121/69 (86) 97 05/10/17 00:00 99 Room Air 05/09/17 23:38 36.8 88 19 136/70 (92) 99 05/09/17 20:00 99 Room Air 05/09/17 19:26 36.5 99 20 138/72 (94) 99 Room Air Physical Exam General Appearance: WD/WN, no apparent distress Eyes: normal inspection, EOMI, sclerae normal ENT: normal ENT inspection, pharynx normal Neck: supple, no adenopathy, thyroid normal, trachea midline Respiratory/Chest: chest non-tender, lungs clear, normal breath sounds, no respiratory distress Cardiovascular: regular rate, rhythm, no gallop, no murmur Abdomen: normal bowel sounds, non tender, soft, no organomegaly Extremities: non-tender, + pertinent finding (Improved right leg pain swelling and erythema) Neurologic/Psychiatric: alert, oriented x 3 Skin: normal color, no rash, + pertinent finding (Right leg erythema improved, thus scrotal erythema improved) Lymphatic: no adenopathy Laboratory Results Last 24 Hours Test 05/09/17 17:01 05/09/17 20:05 05/09/17 22:56 05/10/17 04:48 Hemoglobin 10.5 g/dL 9.9 g/dL 9.6 g/dL Hematocrit 32.7 % 31.0 % 32.2 % Bedside Glucose 171 mg/dl Sodium Level 141 mmol/L Potassium Level 4.3 mmol/L Chloride Level 113 mmol/L Carbon Dioxide Level 19 mmol/L Anion Gap 9.0 mmol/L Blood Urea Nitrogen 70 mg/dl Creatinine 1.15 mg/dl Est Creatinine Clear Calc Drug Dose 79.0 ml/min Estimated GFR () 71.2 Estimated GFR (Non- 61.5 BUN/Creatinine Ratio 60.9 Random Glucose 137 mg/dl Calcium Level 8.1 mg/dl Test 05/10/17 07:23 05/10/17 11:23 05/10/17 15:41 Bedside Glucose 132 mg/dl 148 mg/dl 106 mg/dl Assessment and Plan 76-year-old male with diabetes mellitus with chronic scrotal ulcerations admitted with right lower extremity cellulitis and possible worsening scrotal infection. Patient now with recurrent C difficile infection, started on vancomycin, would recommend prolonged tapering course of therapy given multiple recurrences. Will continue on current antibiotics for scrotal infection and cellulitis as appears to be improving. Will follow.
[2017-05-10] MEDS: DIGOXIN 0.125 MG TAB PO SCH (16:32)
[2017-05-10] MEDS: MENTHOL-ZINC OXIDE 360 APPLN/120 GM TUBE EXT SCH (19:06)
--- NOTE | 2017-05-10 19:37 | Progress Note ---
Medicine Progress Note Date & Time of Visit: May 10, 2017 at 19:37. Subjective Patient reports feeling better overall, no overnight events noted. Still having black colored stools but no longer diarrhea. No abdominal or chest pain. Denies any dizziness or lightheadedness. No events on tele. Objective Last 8 Hrs Date Time Temp Pulse Resp B/P (MAP) Pulse Ox O2 Delivery O2 Flow Rate FiO2 05/10/17 18:47 36.5 84 18 111/63 (79) 90 Room Air 05/10/17 16:32 84 05/10/17 16:00 Room Air 05/10/17 15:10 36.4 82 20 113/62 (79) 96 Room Air 05/10/17 12:00 Room Air Physical Exam: GENERAL: Patient is in no acute distress. HEENT: No acute trauma, normocephalic, mucous membranes moist, no nasal congestion, no scleral icterus. NECK: No stridor, trachea is midline. LUNGS: Clear to auscultation bilaterally, no wheeze, no rhonchi, breath sounds equal. HEART: Without murmurs gallops or rubs, regular rate and rhythm. ABDOMEN: Soft, nontender, bowel sounds positive, obese EXTREMITIES: No cyanosis or edema, full range of motion of all the joints without pain or difficulty, no signs for acute trauma. NEUROLOGIC: Oriented x 3, no acute motor or sensory deficits, no focal weakness. SKIN: No rash, no jaundice, no diaphoresis. Laboratory Results: Last 24 Hours Test 05/09/17 20:05 05/09/17 22:56 05/10/17 04:48 05/10/17 07:23 Bedside Glucose 171 mg/dl 132 mg/dl Hemoglobin 9.9 g/dL 9.6 g/dL Hematocrit 31.0 % 32.2 % Sodium Level 141 mmol/L Potassium Level 4.3 mmol/L Chloride Level 113 mmol/L Carbon Dioxide Level 19 mmol/L Anion Gap 9.0 mmol/L Blood Urea Nitrogen 70 mg/dl Creatinine 1.15 mg/dl Est Creatinine Clear Calc Drug Dose 79.0 ml/min Estimated GFR () 71.2 Estimated GFR (Non- 61.5 BUN/Creatinine Ratio 60.9 Random Glucose 137 mg/dl Calcium Level 8.1 mg/dl Test 05/10/17 11:23 05/10/17 15:41 Bedside Glucose 148 mg/dl 106 mg/dl Assessment & Plan SEPSIS: -secondary to scrotal wound infection and RLE cellulitis -had leukocytosis, lactic acid, and tachycardia with low grade fever -was initially on IV imipenem, clinda and vanco in the ER, was then continued on Vancomycin and Zosyn X 3 days, was then switched to PO Cephalexin -blood cultures: negative, urine: unable to obtain sample -continue Cephalexin PO Day #10/ -ID consulted, appreciate recommendations -wound care consulted; requires careful daily wound care and cleaning after each urination/BM to prevent re infection -outpatient follow up after discharge with Urology Interventional Radiology in [facility] for possible repeat Sclerotherapy and follow up with Surgery in [facility] for 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 Soft tissue edema. -Arterial doppler of LE showed no significant stenosis; Moderate narrowing right posterior tibial artery with moderate to rather significant retrograde flow within the right dorsalis pedis artery. -Vascular surgery consulted, recommended local wound care to prevent infection until completely healed. No surgical intervention indicated at this time HTN: -BP was elevated; Losartan increased to 50mg BID -continue Metoprolol -meds were held yesterday due to GI bleed and relative hypotension DM TYPE II: -HbA1c: 7.6 -hold metformin -on insulin coverage while in hospital CHRONIC A FIB: -rate controlled -was on coumadin but discontinued last month by cardiology due to scrotum hemangioma bleeding -continued on metoprolol and digoxin -hold ASA for GI bleed, will resume when ok with GI AMBULATORY DYSFUNCTION: -PT/OT consulted -fall precautions -will need rehab upon discharge JUAN MANUEL: -however does not use a CPAP BPH: -continue finasteride -also on Flomax 05/08/17 CHRONIC BACK PAIN: -on hydrocodone prn -CT lumbar: multilevel degenerative disc change at the entire lumbar region.Moderate narrowing of the spinal canal at L2-L3, L3-L4, and most significantly at L4-L5. Consultants: Vascular surgery Current Inpatient Medications: Current Inpatient Medications Medications (Trade) Dose Ordered Sig/Jakub Route Start Time Stop Time Status Last Admin Dose Admin Aspirin (Ecotrin Tab) 81 mg DAILY PO 04/30/17 09:00 05/30/17 08:59 Future Hold 05/08/17 09:00 81 MG Digoxin (Lanoxin Tab) 0.125 mg DAILY@1600 PO 04/30/17 09:00 05/30/17 08:59 05/10/17 16:32 0.125 MG Finasteride (Proscar Tab) 5 mg QAM PO 04/30/17 09:00 05/30/17 08:59 05/10/17 08:28 5 MG Metoprolol Succinate (Toprol Xl Tab) 200 mg QAM PO 04/30/17 09:00 05/30/17 08:59 05/10/17 08:30 200 MG Insulin Aspart (novoLOG ASPART) SLIDING SCALE If C... ACHS SC 04/29/17 16:30 05/29/17 16:29 05/10/17 18:38 3 UNITS Glucose (Glucose 40% Gel) 15-30 GRAMS 15 GRAMS... UD PRN PO 04/29/17 12:45 05/29/17 12:44 Glucose (Glucose Chew Tab) 4-8 Tablets 4 Tabl... UD PRN PO 04/29/17 12:45 05/29/17 12:44 Dextrose (Dextrose 50% 50ML Syringe) 25-50ML OF 50% DW IV FOR... UD PRN IV 04/29/17 12:45 05/29/17 12:44 Glucagon (Glucagon Inj) 1 mg UD PRN SQ 04/29/17 12:45 05/29/17 12:44 Acetaminophen/ Hydrocodone Bitart ([place] 5/325 Tab) `1-2 tabs for pain 1 tab ... Q6 PRN PO 04/29/17 23:45 05/13/17 11:44 05/10/17 18:34 2 TAB Lorazepam (Ativan Tab) 0.25 mg HS PRN PO 05/01/17 20:30 05/31/17 20:29 05/10/17 02:57 0.25 MG Artificial Tears (Artificial Tears) 1 drops Q2H PRN OP 05/02/17 10:45 06/01/17 10:44 05/02/17 13:21 1 DROPS Vancomycin HCl (Vancomycin Oral Soln) 125 mg QID PO 05/03/17 01:00 05/17/17 00:59 05/10/17 19:08 125 MG Raspberry (Raspberry Syrup 5ml Cup) 5 ml QID PO 05/03/17 01:00 05/17/17 00:59 05/10/17 19:06 5 ML Enteral Nutritional Formula (Boost Glucose Control) 1 can BID PO 05/04/17 20:00 06/03/17 19:59 05/10/17 10:22 1 CAN Acetaminophen (Tylenol Tab) 650 mg Q4H PRN PO 05/06/17 16:00 06/05/17 15:59 05/10/17 10:32 650 MG Cephalexin Monohydrate (Keflex Cap) 500 mg QID PO 05/07/17 17:00 05/13/17 16:59 05/10/17 18:34 500 MG Clonidine HCl (Catapres Tab) 0.1 mg Q6H PRN PO 05/07/17 17:00 06/06/17 16:59 05/08/17 09:00 0.1 MG Tamsulosin HCl (Flomax Cap) 0.4 mg QAM PO 05/09/17 08:00 06/08/17 07:59 05/10/17 08:30 0.4 MG Sodium Chloride 1,000 ml @ 125 mls/hr Q8H IV 05/09/17 12:30 06/08/17 12:29 05/10/17 19:05 125 MLS/HR Pantoprazole Sodium 40 mg/ Dextrose 100 ml @ 20 mls/hr Q5H IV 05/09/17 12:15 06/08/17 12:14 05/10/17 19:05 20 MLS/HR Ondansetron HCl (Zofran Inj) 4 mg Q6H PRN IV. 05/09/17 17:00 06/08/17 16:59 Menthol/Zinc Oxide (Calmoseptine Oint) 1 appln BID EXT 05/10/17 21:00 06/09/17 20:59 05/10/17 19:06 1 APPLN
[2017-05-11] VITALS (8 sets, daily range): BP systolic 104–166; BP diastolic 45–79; PULSE 76–92; TEMP 36.3–36.8; O2SAT 93–96
[2017-05-11] MEDS: PANTOprazole INJ 40 MG in DEXTROSE 5% 100ML IV SCH ×4 (03:53→18:38)
[2017-05-11] MEDS: SODIUM CHLORIDE 0.9% 1000ML 1,000 ML IV SCH (04:43)
[2017-05-11 06:04] LABS: HEMATOCRIT 31.1 % (42-52); MEAN CELL VOLUME 92.3 fL (80-100); MEAN CORPUSCULAR HEMOGLOBIN 28.5 pg (25-34); MEAN CORPUSCULAR HGB CONC 30.9 g/dl (32-36); MEAN PLATELET VOLUME 9.3 fL (7.4-10.4); PLATELET COUNT 302 K/uL (130-400); RED BLOOD COUNT 3.37 M/uL (4.7-6.1); WHITE BLOOD COUNT 9.27 K/uL (4.8-10.8)
[2017-05-11 06:58] LABS: BUN/CREATININE RATIO 35.2 (10-20); CALCIUM 8.3 mg/dl (8.5-10.1); CREATININE 1.01 mg/dl (0.60-1.40); POTASSIUM 4.4 mmol/L (3.5-5.1)
[2017-05-11] MEDS: INSULIN ASPART 100 UNITS/ML 3 ML PEN SC SCH ×4 (09:18→21:00)
[2017-05-11] MEDS: TAMSULOSIN HCL 0.4 MG CAP PO SCH (09:19)
[2017-05-11] MEDS: MENTHOL-ZINC OXIDE 360 APPLN/120 GM TUBE EXT SCH ×2 (09:19→18:38)
[2017-05-11] MEDS: FINASTERIDE 5 MG TAB PO SCH (09:20)
[2017-05-11] MEDS: CEPHALEXIN MONOHYDRATE 500 MG CAP PO SCH ×4 (09:20→19:52)
[2017-05-11] MEDS: RASPBERRY SYRUP 5 ML UDP PO SCH ×4 (09:21→19:51)
[2017-05-11] MEDS: METOPROLOL SUCC 50MG EXT REL TAB PO SCH (09:22)
[2017-05-11] MEDS: VANCOMYCIN HCL 125 MG/2.5ML SOLN PO SCH ×4 (09:23→19:51)
[2017-05-11] MEDS: HYDROCODONE/ACETAMOPHEN 5/325MG TAB PO PRN ×2 (09:26→16:21)
[2017-05-11] MEDS: BOOST GLUCOSE CONTROL PO SCH ×2 (10:46→19:50)
--- NOTE | 2017-05-11 11:40 | Gastroenterology Progress Note ---
Progress Note Date of Service: May 11, 2017 Subjective Pt evaluation today including: conversation w/ patient, physical exam, chart review, lab review, review of inpatient medication list Pt still having small amt of melanotic stool, Hgb stable. He denies any abd pain , n/v. Review of Systems Constitutional: No fever, No chills Respiratory: No cough, No shortness of breath Cardiac: No chest pain Abdomen: + see HPI, No pain, No nausea, No vomiting Medications Current Inpatient Medications Medications (Trade) Dose Ordered Sig/Jakub Route Start Time Stop Time Status Last Admin Dose Admin Aspirin (Ecotrin Tab) 81 mg DAILY PO 04/30/17 09:00 05/30/17 08:59 Future Hold 05/08/17 09:00 81 MG Digoxin (Lanoxin Tab) 0.125 mg DAILY@1600 PO 04/30/17 09:00 05/30/17 08:59 05/10/17 16:32 0.125 MG Finasteride (Proscar Tab) 5 mg QAM PO 04/30/17 09:00 05/30/17 08:59 05/11/17 09:20 5 MG Metoprolol Succinate (Toprol Xl Tab) 200 mg QAM PO 04/30/17 09:00 05/30/17 08:59 05/11/17 09:22 200 MG Insulin Aspart (novoLOG ASPART) SLIDING SCALE If C... ACHS SC 04/29/17 16:30 05/29/17 16:29 05/10/17 18:38 3 UNITS Glucose (Glucose 40% Gel) 15-30 GRAMS 15 GRAMS... UD PRN PO 04/29/17 12:45 05/29/17 12:44 Glucose (Glucose Chew Tab) 4-8 Tablets 4 Tabl... UD PRN PO 04/29/17 12:45 05/29/17 12:44 Dextrose (Dextrose 50% 50ML Syringe) 25-50ML OF 50% DW IV FOR... UD PRN IV 04/29/17 12:45 05/29/17 12:44 Glucagon (Glucagon Inj) 1 mg UD PRN SQ 04/29/17 12:45 05/29/17 12:44 Acetaminophen/ Hydrocodone Bitart ([place] 5/325 Tab) `1-2 tabs for pain 1 tab ... Q6 PRN PO 04/29/17 23:45 05/13/17 11:44 05/11/17 09:26 2 TAB Lorazepam (Ativan Tab) 0.25 mg HS PRN PO 05/01/17 20:30 05/31/17 20:29 05/10/17 23:48 0.25 MG Artificial Tears (Artificial Tears) 1 drops Q2H PRN OP 05/02/17 10:45 06/01/17 10:44 05/02/17 13:21 1 DROPS Vancomycin HCl (Vancomycin Oral Soln) 125 mg QID PO 05/03/17 01:00 05/17/17 00:59 05/11/17 09:23 125 MG Raspberry (Raspberry Syrup 5ml Cup) 5 ml QID PO 05/03/17 01:00 05/17/17 00:59 05/11/17 09:21 5 ML Enteral Nutritional Formula (Boost Glucose Control) 1 can BID PO 05/04/17 20:00 06/03/17 19:59 05/11/17 10:46 1 CAN Acetaminophen (Tylenol Tab) 650 mg Q4H PRN PO 05/06/17 16:00 06/05/17 15:59 05/10/17 10:32 650 MG Cephalexin Monohydrate (Keflex Cap) 500 mg QID PO 05/07/17 17:00 05/13/17 16:59 05/11/17 09:20 500 MG Clonidine HCl (Catapres Tab) 0.1 mg Q6H PRN PO 05/07/17 17:00 06/06/17 16:59 05/08/17 09:00 0.1 MG Tamsulosin HCl (Flomax Cap) 0.4 mg QAM PO 05/09/17 08:00 06/08/17 07:59 05/11/17 09:19 0.4 MG Pantoprazole Sodium 40 mg/ Dextrose 100 ml @ 20 mls/hr Q5H IV 05/09/17 12:15 06/08/17 12:14 05/11/17 09:30 20 MLS/HR Ondansetron HCl (Zofran Inj) 4 mg Q6H PRN IV. 05/09/17 17:00 06/08/17 16:59 Menthol/Zinc Oxide (Calmoseptine Oint) 1 appln BID EXT 05/10/17 21:00 06/09/17 20:59 05/11/17 09:19 1 APPLN Objective Vital Signs Date Time Temp Pulse Resp B/P (MAP) Pulse Ox O2 Delivery O2 Flow Rate FiO2 05/11/17 11:22 95 Room Air 05/11/17 08:19 36.3 92 12 126/65 (85) 93 Room Air 05/11/17 08:00 Room Air 05/11/17 04:00 94 Room Air 05/11/17 03:20 36.8 81 17 166/79 (108) 94 Room Air 05/11/17 00:00 93 Room Air 05/10/17 23:13 36.4 84 18 144/77 (99) 93 Room Air 05/10/17 20:00 Room Air 05/10/17 18:47 36.5 84 18 111/63 (79) 90 Room Air 05/10/17 16:32 84 05/10/17 16:00 Room Air 05/10/17 15:10 36.4 82 20 113/62 (79) 96 Room Air 05/10/17 12:00 Room Air Physical Exam General Appearance: WD/WN, no apparent distress, + obese Eyes: normal inspection, PERRL, EOMI Neck: supple, no JVD, trachea midline Respiratory/Chest: normal breath sounds, no respiratory distress, no accessory muscle use Cardiovascular: regular rate, rhythm, no gallop, no murmur Abdomen: normal bowel sounds, non tender, soft Extremities: normal inspection, no pedal edema, no calf tenderness Neurologic/Psych: alert, normal mood/affect, oriented x 3 Skin: normal color, no jaundice, no rash Laboratory Results Last 24 Hours Test 05/10/17 15:41 05/10/17 19:51 05/11/17 05:42 05/11/17 06:38 Bedside Glucose 106 mg/dl 129 mg/dl 139 mg/dl White Blood Count 9.27 K/uL Red Blood Count 3.37 M/uL Hemoglobin 9.6 g/dL Hematocrit 31.1 % Mean Corpuscular Volume 92.3 fL Mean Corpuscular Hemoglobin 28.5 pg Mean Corpuscular Hemoglobin Concent 30.9 g/dl RDW Standard Deviation 56.5 fL RDW Coefficient of Variation 17.1 % Platelet Count 302 K/uL Mean Platelet Volume 9.3 fL Sodium Level 140 mmol/L Potassium Level 4.4 mmol/L Chloride Level 111 mmol/L Carbon Dioxide Level 22 mmol/L Anion Gap 7.0 mmol/L Blood Urea Nitrogen 36 mg/dl Creatinine 1.01 mg/dl Est Creatinine Clear Calc Drug Dose 90.4 ml/min Estimated GFR () 83.4 Estimated GFR (Non- 71.9 BUN/Creatinine Ratio 35.2 Random Glucose 139 mg/dl Calcium Level 8.3 mg/dl Test 05/11/17 11:09 Bedside Glucose 189 mg/dl Assessment and Plan Patient is a 76 year old male admitted for sepsis suspected to be from scrotal wound, + Cdiff, started to have melena x 3 episodes this AM, heme positive stool , Hgb dropped from 14->11. BP 80s/50s (likely orthostatic). Repeat BP 107/70s. Hx of gastric and duodenal ulcers, Horvath's esophagus in 2012. CT abd/pelvis w/o contrast: suboptimal study, + liver nodularity suspected early changes cirrhosis, no acute bowel pathology, chronic bladder outlet obstruction EGD on 05/09 showed LA grade B reflux esophagitis, gastric ulcer w visible non bleeding vessel - cauterized and clipped. He continue to have small amt of melanotic stool but Hgb stabley. Denies any abd pain, n/v, tolerating [place] diet. Plans - Advanced to DM regular diet - PPI gtt x 72 hrs total then continue BID dosing. - Monitor H/H and transfuse prn. - Repeat EGD in 6 week's time to check ulcer healing. - For Cdiff: continue Vancomycin 125mg QID. No Flagyl (allergic) - May workup possible cirrhosis in outpt setting once his acute issues (sepsis, gastric ulcer, Cdiff) are resolved. - No new GI plans I have seen, examined and agree with the plan as outlined by FRANCESCO Ely as above. -exam reveals soft abd -No bleeding -IV ppi GTT until tomorrow -Afterwards BID oral -Repeat EGD in 2 months to ensure healing Carlitos Marti M.D.
[2017-05-11] MEDS: DIGOXIN 0.125 MG TAB PO SCH (16:08)
--- NOTE | 2017-05-11 17:52 | Infectious Disease Progress Nt ---
Progress Note Date of Service May 11, 2017. Subjective Pt evaluation today including: conversation w/ patient, physical exam, chart review, lab review, review of studies, conversation w/ x ray consultant, review of inpatient medication list Patient offers no new complaints today. Pain controlled. Remains afebrile. Diarrhea improved. All Other Systems: Reviewed and Negative Medications Current Inpatient Medications Medications (Trade) Dose Ordered Sig/Jakub Route Start Time Stop Time Status Last Admin Dose Admin Aspirin (Ecotrin Tab) 81 mg DAILY PO 04/30/17 09:00 05/30/17 08:59 Future Hold 05/08/17 09:00 81 MG Digoxin (Lanoxin Tab) 0.125 mg DAILY@1600 PO 04/30/17 09:00 05/30/17 08:59 05/11/17 16:08 0.125 MG Finasteride (Proscar Tab) 5 mg QAM PO 04/30/17 09:00 05/30/17 08:59 05/11/17 09:20 5 MG Metoprolol Succinate (Toprol Xl Tab) 200 mg QAM PO 04/30/17 09:00 05/30/17 08:59 05/11/17 09:22 200 MG Insulin Aspart (novoLOG ASPART) SLIDING SCALE If C... ACHS SC 04/29/17 16:30 05/29/17 16:29 05/11/17 17:46 4 UNITS Glucose (Glucose 40% Gel) 15-30 GRAMS 15 GRAMS... UD PRN PO 04/29/17 12:45 05/29/17 12:44 Glucose (Glucose Chew Tab) 4-8 Tablets 4 Tabl... UD PRN PO 04/29/17 12:45 05/29/17 12:44 Dextrose (Dextrose 50% 50ML Syringe) 25-50ML OF 50% DW IV FOR... UD PRN IV 04/29/17 12:45 05/29/17 12:44 Glucagon (Glucagon Inj) 1 mg UD PRN SQ 04/29/17 12:45 05/29/17 12:44 Acetaminophen/ Hydrocodone Bitart ([place] 5/325 Tab) `1-2 tabs for pain 1 tab ... Q6 PRN PO 04/29/17 23:45 05/13/17 11:44 05/11/17 16:21 2 TAB Lorazepam (Ativan Tab) 0.25 mg HS PRN PO 05/01/17 20:30 05/31/17 20:29 05/10/17 23:48 0.25 MG Artificial Tears (Artificial Tears) 1 drops Q2H PRN OP 05/02/17 10:45 06/01/17 10:44 05/02/17 13:21 1 DROPS Vancomycin HCl (Vancomycin Oral Soln) 125 mg QID PO 05/03/17 01:00 05/17/17 00:59 05/11/17 16:18 125 MG Raspberry (Raspberry Syrup 5ml Cup) 5 ml QID PO 05/03/17 01:00 05/17/17 00:59 05/11/17 16:19 5 ML Enteral Nutritional Formula (Boost Glucose Control) 1 can BID PO 05/04/17 20:00 06/03/17 19:59 05/11/17 10:46 1 CAN Acetaminophen (Tylenol Tab) 650 mg Q4H PRN PO 05/06/17 16:00 06/05/17 15:59 05/10/17 10:32 650 MG Cephalexin Monohydrate (Keflex Cap) 500 mg QID PO 05/07/17 17:00 05/13/17 16:59 05/11/17 16:22 500 MG Clonidine HCl (Catapres Tab) 0.1 mg Q6H PRN PO 05/07/17 17:00 06/06/17 16:59 05/08/17 09:00 0.1 MG Tamsulosin HCl (Flomax Cap) 0.4 mg QAM PO 05/09/17 08:00 06/08/17 07:59 05/11/17 09:19 0.4 MG Pantoprazole Sodium 40 mg/ Dextrose 100 ml @ 20 mls/hr Q5H IV 05/09/17 12:15 06/08/17 12:14 05/11/17 14:17 20 MLS/HR Ondansetron HCl (Zofran Inj) 4 mg Q6H PRN IV. 05/09/17 17:00 06/08/17 16:59 Menthol/Zinc Oxide (Calmoseptine Oint) 1 appln BID EXT 05/10/17 21:00 06/09/17 20:59 05/11/17 09:19 1 APPLN Objective Vital Signs Date Time Temp Pulse Resp B/P (MAP) Pulse Ox O2 Delivery O2 Flow Rate FiO2 05/11/17 16:42 Room Air 05/11/17 16:08 76 05/11/17 12:00 Room Air 05/11/17 11:34 36.3 76 18 104/45 (64) 94 Room Air 05/11/17 11:22 95 Room Air 05/11/17 08:19 36.3 92 12 126/65 (85) 93 Room Air 05/11/17 08:00 Room Air 05/11/17 04:00 94 Room Air 05/11/17 03:20 36.8 81 17 166/79 (108) 94 Room Air 05/11/17 00:00 93 Room Air 05/10/17 23:13 36.4 84 18 144/77 (99) 93 Room Air 05/10/17 20:00 Room Air 05/10/17 18:47 36.5 84 18 111/63 (79) 90 Room Air Physical Exam General Appearance: WD/WN, no apparent distress Eyes: normal inspection, sclerae normal ENT: normal ENT inspection, pharynx normal Neck: supple, no adenopathy, trachea midline Respiratory/Chest: chest non-tender, lungs clear, normal breath sounds, no respiratory distress Cardiovascular: regular rate, rhythm, no gallop, no murmur Abdomen: normal bowel sounds, non tender, soft, no organomegaly Extremities: no calf tenderness, + swelling ( Improving right leg swelling) Neurologic/Psychiatric: alert, oriented x 3 Skin: normal color, no rash, + pertinent finding ( improving cellulitis) Lymphatic: no adenopathy Laboratory Results Last 24 Hours Test 05/10/17 19:51 05/11/17 05:42 05/11/17 06:38 05/11/17 11:09 Bedside Glucose 129 mg/dl 139 mg/dl 189 mg/dl White Blood Count 9.27 K/uL Red Blood Count 3.37 M/uL Hemoglobin 9.6 g/dL Hematocrit 31.1 % Mean Corpuscular Volume 92.3 fL Mean Corpuscular Hemoglobin 28.5 pg Mean Corpuscular Hemoglobin Concent 30.9 g/dl RDW Standard Deviation 56.5 fL RDW Coefficient of Variation 17.1 % Platelet Count 302 K/uL Mean Platelet Volume 9.3 fL Sodium Level 140 mmol/L Potassium Level 4.4 mmol/L Chloride Level 111 mmol/L Carbon Dioxide Level 22 mmol/L Anion Gap 7.0 mmol/L Blood Urea Nitrogen 36 mg/dl Creatinine 1.01 mg/dl Est Creatinine Clear Calc Drug Dose 90.4 ml/min Estimated GFR () 83.4 Estimated GFR (Non- 71.9 BUN/Creatinine Ratio 35.2 Random Glucose 139 mg/dl Calcium Level 8.3 mg/dl Test 05/11/17 15:34 Bedside Glucose 135 mg/dl Assessment and Plan 76-year-old male with diabetes mellitus with chronic scrotal ulcerations admitted with right lower extremity cellulitis and possible worsening scrotal infection. Patient now with recurrent C difficile infection, started on vancomycin, would recommend prolonged tapering course of therapy given multiple recurrences. Will continue on current antibiotics for scrotal infection and cellulitis as appears to be improving. Will follow.
--- NOTE | 2017-05-11 19:35 | Progress Note ---
Medicine Progress Note Date & Time of Visit: May 11, 2017 at 19:34. Subjective Patient reports feeling weak and tired of laying in bed; states he really wants to get up into a chair. No overnight events noted. Tolerating PO without difficulty. Denies any SOB or CP. came to the bedside later in the day and was updated. Objective Last 8 Hrs Date Time Temp Pulse Resp B/P (MAP) Pulse Ox O2 Delivery O2 Flow Rate FiO2 05/11/17 19:21 36.4 80 18 143/79 (100) 96 Room Air 05/11/17 16:42 Room Air 05/11/17 16:08 76 05/11/17 16:00 Room Air 05/11/17 12:00 Room Air Physical Exam: GENERAL: Patient is in no acute distress. HEENT: No acute trauma, normocephalic, mucous membranes moist, no nasal congestion, no scleral icterus. Conjunctivae clear NECK: No stridor, trachea is midline. LUNGS: Clear to auscultation bilaterally, no wheeze, no rhonchi, breath sounds equal. HEART: Without murmurs gallops or rubs, regular rate and rhythm. ABDOMEN: Soft, nontender, bowel sounds positive, obese, unable to palpate liver and spleen EXTREMITIES: No cyanosis; B/L LE edema, stasis skin changes noted to B/L LE NEUROLOGIC: Oriented x 3, no acute motor or sensory deficits, no focal weakness. SKIN: No rash, no jaundice, no diaphoresis. Laboratory Results: Last 24 Hours Test 05/10/17 19:51 05/11/17 05:42 05/11/17 06:38 05/11/17 11:09 Bedside Glucose 129 mg/dl 139 mg/dl 189 mg/dl White Blood Count 9.27 K/uL Red Blood Count 3.37 M/uL Hemoglobin 9.6 g/dL Hematocrit 31.1 % Mean Corpuscular Volume 92.3 fL Mean Corpuscular Hemoglobin 28.5 pg Mean Corpuscular Hemoglobin Concent 30.9 g/dl RDW Standard Deviation 56.5 fL RDW Coefficient of Variation 17.1 % Platelet Count 302 K/uL Mean Platelet Volume 9.3 fL Sodium Level 140 mmol/L Potassium Level 4.4 mmol/L Chloride Level 111 mmol/L Carbon Dioxide Level 22 mmol/L Anion Gap 7.0 mmol/L Blood Urea Nitrogen 36 mg/dl Creatinine 1.01 mg/dl Est Creatinine Clear Calc Drug Dose 90.4 ml/min Estimated GFR () 83.4 Estimated GFR (Non- 71.9 BUN/Creatinine Ratio 35.2 Random Glucose 139 mg/dl Calcium Level 8.3 mg/dl Test 05/11/17 15:34 Bedside Glucose 135 mg/dl Assessment & Plan SEPSIS: -secondary to scrotal wound infection and RLE cellulitis -had leukocytosis, lactic acid, and tachycardia with low grade fever -was initially on IV imipenem, clinda and vanco in the ER, was then continued on Vancomycin and Zosyn X 3 days, was then switched to PO Cephalexin -blood cultures: negative, urine: unable to obtain sample -continue Cephalexin PO Day #11/ -ID consulted, appreciate recommendations -wound care consulted; requires careful daily wound care and cleaning after each urination/BM to prevent re infection -outpatient follow up after discharge with Urology Interventional Radiology in [facility] for possible repeat Sclerotherapy and follow up with Surgery in [facility] for 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 per his discussion with Dr. 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 Soft tissue edema. -Arterial doppler of LE showed no significant stenosis; Moderate narrowing right posterior tibial artery with moderate to rather significant retrograde flow within the right dorsalis pedis artery. -Vascular surgery consulted, recommended local wound care to prevent infection until completely healed. No surgical intervention indicated at this time HTN: -BP was elevated; Losartan increased to 50mg BID -continue Metoprolol -meds were held yesterday due to GI bleed and relative hypotension DM TYPE II: -HbA1c: 7.6 -hold metformin -on insulin coverage while in hospital CHRONIC A FIB: -rate controlled -was on coumadin but discontinued last month by cardiology due to scrotum hemangioma bleeding -continued on metoprolol and digoxin -hold ASA for GI bleed, will resume when ok with GI AMBULATORY DYSFUNCTION: -PT/OT consulted -fall precautions -will need rehab upon discharge JUAN MANUEL: -however does not use a CPAP BPH: -continue finasteride -also on Flomax 05/08/17 CHRONIC BACK PAIN: -on hydrocodone prn -CT lumbar: multilevel degenerative disc change at the entire lumbar region.Moderate narrowing of the spinal canal at L2-L3, L3-L4, and most significantly at L4-L5. Consultants: Vascular surgery Current Inpatient Medications: Current Inpatient Medications Medications (Trade) Dose Ordered Sig/Jakub Route Start Time Stop Time Status Last Admin Dose Admin Aspirin (Ecotrin Tab) 81 mg DAILY PO 04/30/17 09:00 05/30/17 08:59 Future Hold 05/08/17 09:00 81 MG Digoxin (Lanoxin Tab) 0.125 mg DAILY@1600 PO 04/30/17 09:00 05/30/17 08:59 05/11/17 16:08 0.125 MG Finasteride (Proscar Tab) 5 mg QAM PO 04/30/17 09:00 05/30/17 08:59 05/11/17 09:20 5 MG Metoprolol Succinate (Toprol Xl Tab) 200 mg QAM PO 04/30/17 09:00 05/30/17 08:59 05/11/17 09:22 200 MG Insulin Aspart (novoLOG ASPART) SLIDING SCALE If C... ACHS SC 04/29/17 16:30 05/29/17 16:29 05/11/17 17:46 4 UNITS Glucose (Glucose 40% Gel) 15-30 GRAMS 15 GRAMS... UD PRN PO 04/29/17 12:45 05/29/17 12:44 Glucose (Glucose Chew Tab) 4-8 Tablets 4 Tabl... UD PRN PO 04/29/17 12:45 05/29/17 12:44 Dextrose (Dextrose 50% 50ML Syringe) 25-50ML OF 50% DW IV FOR... UD PRN IV 04/29/17 12:45 05/29/17 12:44 Glucagon (Glucagon Inj) 1 mg UD PRN SQ 04/29/17 12:45 05/29/17 12:44 Acetaminophen/ Hydrocodone Bitart ([place] 5/325 Tab) `1-2 tabs for pain 1 tab ... Q6 PRN PO 04/29/17 23:45 05/13/17 11:44 05/11/17 16:21 2 TAB Lorazepam (Ativan Tab) 0.25 mg HS PRN PO 05/01/17 20:30 05/31/17 20:29 05/10/17 23:48 0.25 MG Artificial Tears (Artificial Tears) 1 drops Q2H PRN OP 05/02/17 10:45 06/01/17 10:44 05/02/17 13:21 1 DROPS Vancomycin HCl (Vancomycin Oral Soln) 125 mg QID PO 05/03/17 01:00 05/17/17 00:59 05/11/17 16:18 125 MG Raspberry (Raspberry Syrup 5ml Cup) 5 ml QID PO 05/03/17 01:00 05/17/17 00:59 05/11/17 16:19 5 ML Enteral Nutritional Formula (Boost Glucose Control) 1 can BID PO 05/04/17 20:00 06/03/17 19:59 05/11/17 10:46 1 CAN Acetaminophen (Tylenol Tab) 650 mg Q4H PRN PO 05/06/17 16:00 06/05/17 15:59 05/10/17 10:32 650 MG Cephalexin Monohydrate (Keflex Cap) 500 mg QID PO 05/07/17 17:00 05/13/17 16:59 05/11/17 16:22 500 MG Clonidine HCl (Catapres Tab) 0.1 mg Q6H PRN PO 05/07/17 17:00 06/06/17 16:59 05/08/17 09:00 0.1 MG Tamsulosin HCl (Flomax Cap) 0.4 mg QAM PO 05/09/17 08:00 06/08/17 07:59 05/11/17 09:19 0.4 MG Pantoprazole Sodium 40 mg/ Dextrose 100 ml @ 20 mls/hr Q5H IV 05/09/17 12:15 06/08/17 12:14 05/11/17 18:38 20 MLS/HR Ondansetron HCl (Zofran Inj) 4 mg Q6H PRN IV. 05/09/17 17:00 06/08/17 16:59 Menthol/Zinc Oxide (Calmoseptine Oint) 1 appln BID EXT 05/10/17 21:00 06/09/17 20:59 05/11/17 18:38 1 APPLN
[2017-05-12] MEDS: LORAZEPAM 0.5 MG TAB PO PRN ×2 (00:08→23:59)
[2017-05-12] MEDS: PANTOprazole INJ 40 MG in DEXTROSE 5% 100ML IV SCH ×4 (00:08→15:44)
[2017-05-12 03:40] VITALS: BP 156/75; PULSE 80; TEMP 36.4; O2SAT 94
[2017-05-12] MEDS: INSULIN ASPART 100 UNITS/ML 3 ML PEN SC SCH ×4 (07:00→22:09)
[2017-05-12 08:03] VITALS: BP 133/67; PULSE 77; TEMP 36.4; O2SAT 93
[2017-05-12] MEDS: MENTHOL-ZINC OXIDE 360 APPLN/120 GM TUBE EXT SCH ×2 (08:20→22:07)
[2017-05-12] MEDS: TAMSULOSIN HCL 0.4 MG CAP PO SCH (08:21)
[2017-05-12] MEDS: CEPHALEXIN MONOHYDRATE 500 MG CAP PO SCH ×4 (08:21→22:08)
[2017-05-12] MEDS: METOPROLOL SUCC 50MG EXT REL TAB PO SCH (08:22)
[2017-05-12] MEDS: FINASTERIDE 5 MG TAB PO SCH (08:22)
[2017-05-12] MEDS: BOOST GLUCOSE CONTROL PO SCH ×2 (09:00→22:07)
[2017-05-12] MEDS: VANCOMYCIN HCL 125 MG/2.5ML SOLN PO SCH ×4 (10:30→22:08)
[2017-05-12] MEDS: RASPBERRY SYRUP 5 ML UDP PO SCH ×4 (10:30→22:08)
[2017-05-12] MEDS: HYDROCODONE/ACETAMOPHEN 5/325MG TAB PO PRN ×2 (10:32→17:56)
[2017-05-12 11:22] VITALS: BP 136/70; PULSE 93; TEMP 36.6; O2SAT 93
[2017-05-12 11:27] LABS: HEMATOCRIT 34.2 % (42-52); MEAN CELL VOLUME 91.4 fL (80-100); MEAN CORPUSCULAR HEMOGLOBIN 28.9 pg (25-34); MEAN CORPUSCULAR HGB CONC 31.6 g/dl (32-36); MEAN PLATELET VOLUME 9.7 fL (7.4-10.4); PLATELET COUNT 358 K/uL (130-400); RED BLOOD COUNT 3.74 M/uL (4.7-6.1)
[2017-05-12 11:48] LABS: BUN/CREATININE RATIO 17.1 (10-20); CALCIUM 8.8 mg/dl (8.5-10.1); CREATININE 1.16 mg/dl (0.60-1.40); POTASSIUM 4.2 mmol/L (3.5-5.1)
[2017-05-12 15:21] VITALS: BP 154/72; PULSE 80; TEMP 36.5; O2SAT 96
[2017-05-12] MEDS: DIGOXIN 0.125 MG TAB PO SCH (15:45)
--- NOTE | 2017-05-12 19:20 | Progress Note ---
Medicine Progress Note Date & Time of Visit: May 12, 2017 at 19:20. Subjective Patient doing well, is looking forward to starting therapy at rehab. Was up in a chair after PT today. No overnight events noted. Still has some loose dark stools but not as dark as a few days ago. No complaints of pain, dizziness/ lightheadedness. Objective Last 8 Hrs Date Time Temp Pulse Resp B/P (MAP) Pulse Ox O2 Delivery O2 Flow Rate FiO2 05/12/17 15:45 96 05/12/17 15:21 36.5 80 16 154/72 (99) 96 Room Air 05/12/17 12:30 Room Air 05/12/17 11:22 36.6 93 18 136/70 (92) 93 Room Air Physical Exam: GENERAL: Patient is in no acute distress. HEENT: No acute trauma, normocephalic, mucous membranes moist, no nasal congestion, no scleral icterus. Conjunctivae clear NECK: No stridor, trachea is midline. LUNGS: Clear to auscultation bilaterally, no wheeze, no rhonchi, breath sounds equal. HEART: Without murmurs gallops or rubs, regular rate and rhythm. ABDOMEN: Soft, nontender, bowel sounds positive, obese, unable to palpate liver and spleen EXTREMITIES: No cyanosis; B/L LE edema, stasis skin changes noted to B/L LE NEUROLOGIC: Oriented x 3, no acute motor or sensory deficits, no focal weakness. SKIN: No rash, no jaundice, no diaphoresis. Laboratory Results: Last 24 Hours Test 05/11/17 20:17 05/12/17 07:05 05/12/17 11:05 05/12/17 11:07 Bedside Glucose 122 mg/dl 152 mg/dl 185 mg/dl White Blood Count 10.10 K/uL Red Blood Count 3.74 M/uL Hemoglobin 10.8 g/dL Hematocrit 34.2 % Mean Corpuscular Volume 91.4 fL Mean Corpuscular Hemoglobin 28.9 pg Mean Corpuscular Hemoglobin Concent 31.6 g/dl RDW Standard Deviation 55.7 fL RDW Coefficient of Variation 17.0 % Platelet Count 358 K/uL Mean Platelet Volume 9.7 fL Sodium Level 139 mmol/L Potassium Level 4.2 mmol/L Chloride Level 109 mmol/L Carbon Dioxide Level 23 mmol/L Anion Gap 7.0 mmol/L Blood Urea Nitrogen 20 mg/dl Creatinine 1.16 mg/dl Est Creatinine Clear Calc Drug Dose 78.6 ml/min Estimated GFR () 70.5 Estimated GFR (Non- 60.8 BUN/Creatinine Ratio 17.1 Random Glucose 174 mg/dl Calcium Level 8.8 mg/dl Test 05/12/17 16:29 Bedside Glucose 154 mg/dl Assessment & Plan SEPSIS: -secondary to scrotal wound infection and RLE cellulitis -had leukocytosis, lactic acid, and tachycardia with low grade fever -was initially on IV imipenem, clinda and vanco in the ER, was then continued on Vancomycin and Zosyn X 3 days, was then switched to PO Cephalexin -blood cultures: negative, urine: unable to obtain sample -continue Cephalexin PO Day #12/14 -ID consulted, appreciate recommendations -wound care consulted; requires careful daily wound care and cleaning after each urination/BM to prevent re infection -outpatient follow up after discharge with Urology Interventional Radiology in [facility] for possible repeat Sclerotherapy and follow up with Surgery in [facility] for 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 Soft tissue edema. -Arterial doppler of LE showed no significant stenosis; Moderate narrowing right posterior tibial artery with moderate to rather significant retrograde flow within the right dorsalis pedis artery. -Vascular surgery consulted, recommended local wound care to prevent infection until completely healed. No surgical intervention indicated at this time HTN: -BP was elevated; Losartan increased to 50mg BID -continue Metoprolol -meds were held yesterday due to GI bleed and relative hypotension DM TYPE II: -HbA1c: 7.6 -hold metformin -on insulin coverage while in hospital CHRONIC A FIB: -rate controlled -was on coumadin but discontinued last month by cardiology due to scrotum hemangioma bleeding -continued on metoprolol and digoxin -hold ASA for GI bleed, will resume when ok with GI AMBULATORY DYSFUNCTION: -PT/OT consulted -fall precautions -will need rehab upon discharge JUAN MANUEL: -however does not use a CPAP BPH: -continue finasteride -also on Flomax 05/08/17 CHRONIC BACK PAIN: -on hydrocodone prn -CT lumbar: multilevel degenerative disc change at the entire lumbar region.Moderate narrowing of the spinal canal at L2-L3, L3-L4, and most significantly at L4-L5. DISPO: Medically stable to transfer to [facility] pending approval Consultants: Vascular surgery Current Inpatient Medications: Current Inpatient Medications Medications (Trade) Dose Ordered Sig/Jakub Route Start Time Stop Time Status Last Admin Dose Admin Aspirin (Ecotrin Tab) 81 mg DAILY PO 04/30/17 09:00 05/30/17 08:59 Future Hold 05/08/17 09:00 81 MG Digoxin (Lanoxin Tab) 0.125 mg DAILY@1600 PO 04/30/17 09:00 05/30/17 08:59 05/12/17 15:45 0.125 MG Finasteride (Proscar Tab) 5 mg QAM PO 04/30/17 09:00 05/30/17 08:59 05/12/17 08:22 5 MG Metoprolol Succinate (Toprol Xl Tab) 200 mg QAM PO 04/30/17 09:00 05/30/17 08:59 05/12/17 08:22 200 MG Insulin Aspart (novoLOG ASPART) SLIDING SCALE If C... ACHS SC 04/29/17 16:30 05/29/17 16:29 05/12/17 17:56 6 UNITS Glucose (Glucose 40% Gel) 15-30 GRAMS 15 GRAMS... UD PRN PO 04/29/17 12:45 05/29/17 12:44 Glucose (Glucose Chew Tab) 4-8 Tablets 4 Tabl... UD PRN PO 04/29/17 12:45 05/29/17 12:44 Dextrose (Dextrose 50% 50ML Syringe) 25-50ML OF 50% DW IV FOR... UD PRN IV 04/29/17 12:45 05/29/17 12:44 Glucagon (Glucagon Inj) 1 mg UD PRN SQ 04/29/17 12:45 05/29/17 12:44 Acetaminophen/ Hydrocodone Bitart ([place] 5/325 Tab) `1-2 tabs for pain 1 tab ... Q6 PRN PO 04/29/17 23:45 05/13/17 11:44 05/12/17 17:56 2 TAB Lorazepam (Ativan Tab) 0.25 mg HS PRN PO 05/01/17 20:30 05/31/17 20:29 05/12/17 00:08 0.25 MG Artificial Tears (Artificial Tears) 1 drops Q2H PRN OP 05/02/17 10:45 06/01/17 10:44 05/02/17 13:21 1 DROPS Vancomycin HCl (Vancomycin Oral Soln) 125 mg QID PO 05/03/17 01:00 05/17/17 00:59 05/12/17 17:00 125 MG Raspberry (Raspberry Syrup 5ml Cup) 5 ml QID PO 05/03/17 01:00 05/17/17 00:59 05/12/17 17:57 5 ML Enteral Nutritional Formula (Boost Glucose Control) 1 can BID PO 05/04/17 20:00 06/03/17 19:59 05/11/17 10:46 1 CAN Acetaminophen (Tylenol Tab) 650 mg Q4H PRN PO 05/06/17 16:00 06/05/17 15:59 05/10/17 10:32 650 MG Cephalexin Monohydrate (Keflex Cap) 500 mg QID PO 05/07/17 17:00 05/13/17 16:59 05/12/17 17:56 500 MG Clonidine HCl (Catapres Tab) 0.1 mg Q6H PRN PO 05/07/17 17:00 06/06/17 16:59 05/08/17 09:00 0.1 MG Tamsulosin HCl (Flomax Cap) 0.4 mg QAM PO 05/09/17 08:00 06/08/17 07:59 05/12/17 08:21 0.4 MG Pantoprazole Sodium 40 mg/ Dextrose 100 ml @ 20 mls/hr Q5H IV 05/09/17 12:15 05/12/17 20:14 05/12/17 15:44 20 MLS/HR Ondansetron HCl (Zofran Inj) 4 mg Q6H PRN IV. 05/09/17 17:00 06/08/17 16:59 Menthol/Zinc Oxide (Calmoseptine Oint) 1 appln BID EXT 05/10/17 21:00 06/09/17 20:59 05/12/17 08:20 1 APPLN Pantoprazole Sodium (Protonix Tab) 40 mg BID PO 05/12/17 21:00 06/11/17 20:59
[2017-05-12 19:30] VITALS: BP 151/72; PULSE 79; TEMP 36.7; O2SAT 93
[2017-05-12] MEDS: PANTOprazole SOD 40 MG TAB PO SCH (22:08)
[2017-05-12 23:59] VITALS: BP 121/68; PULSE 76; TEMP 36.7; O2SAT 97
[2017-05-13 03:30] VITALS: BP 148/65; PULSE 81; TEMP 36.5; O2SAT 93
[2017-05-13] MEDS: INSULIN ASPART 100 UNITS/ML 3 ML PEN SC SCH ×2 (07:00→11:00)
[2017-05-13 07:46] VITALS: BP 147/71; PULSE 94; TEMP 36.9; O2SAT 92
[2017-05-13] MEDS: CEPHALEXIN MONOHYDRATE 500 MG CAP PO SCH ×2 (07:49→12:46)
[2017-05-13] MEDS: FINASTERIDE 5 MG TAB PO SCH (07:49)
[2017-05-13] MEDS: RASPBERRY SYRUP 5 ML UDP PO SCH ×2 (07:50→12:46)
[2017-05-13] MEDS: PANTOprazole SOD 40 MG TAB PO SCH (07:50)
[2017-05-13] MEDS: METOPROLOL SUCC 50MG EXT REL TAB PO SCH (07:51)
[2017-05-13] MEDS: TAMSULOSIN HCL 0.4 MG CAP PO SCH (07:52)
[2017-05-13] MEDS: MENTHOL-ZINC OXIDE 360 APPLN/120 GM TUBE EXT SCH (07:52)
[2017-05-13] MEDS: BOOST GLUCOSE CONTROL PO SCH (07:52)
[2017-05-13] MEDS: VANCOMYCIN HCL 125 MG/2.5ML SOLN PO SCH ×2 (07:55→12:46)
[2017-05-13 11:16] VITALS: BP 147/71; PULSE 94; TEMP 36.9; O2SAT 92
[2017-05-13] MEDS: HYDROCODONE/ACETAMOPHEN 5/325MG TAB PO PRN (11:22)
[2017-05-13 11:36] VITALS: BP 144/69; PULSE 83; TEMP 36.8; O2SAT 93
[2017-05-13] MEDS ORDERED: Artificial Tears OP (12:08)
[2017-05-13] MEDS ORDERED: ACET-1047 PO (12:08)
[2017-05-13] MEDS ORDERED: PRT40 PO (12:08)
[2017-05-13] MEDS ORDERED: KFL500 PO (12:08)
[2017-05-13] MEDS ORDERED: NF1094 PO (12:08)
[2017-05-13] MEDS ORDERED: FLM4 PO (12:08)
--- NOTE | 2017-05-13 12:13 | Discharge Instructions ---
Discharge Instructions Date of Service May 13, 2017. Admission Reason for Admission: Chronic A Fib, Fever Discharge Discharge Diagnosis / Problem: Atrial fib, GI bleed, Wound infection, C diff colitis Discharge Goals Goal(s): Diagnostic testing, Therapeutic intervention Activity Recommendations Activity Level: Assistance Required Therapies: Physical Therapy, Occupational Therapy . Additional Information Patient informed of condition: Yes Advance Directives: No DNR: No Level of Care: Acute Rehab Communicable Disease: Yes Prognosis: Stable Baires Catheter: No Instructions / Follow-Up Instructions / Follow-Up Please follow up with [facility] for repeat scope (EGD) in 6 weeks from discharge from the hospital Please follow up with Primary care physician upon discharge from [facility] Diet Patient's current hospital diet: Diabetes Type 2 Diet, AHA Diet (Heart Healthy) Discharge Diet Recommended Diet: AHA Diet (Heart Healthy), Diabetes Type 2 Diet Procedures Procedures Performed: EGD Pending Studies Studies pending at discharge: no Physician Orders On Transfer Special Precautions: Wound care as per nursing instructions. Please be extremely diligent with scrotal wound care, cleanse after every BM/urination and keep area dry Additional Orders: Vancomycin Taper Schedule: Starting 05/14/17: Take Vancomycin PO QID for 4 more days; then decrease to vancomycin BID for 1 week; then decrease to Vancomycin Daily for 1 week; then decrease vancomycin to once every other day for 8 weeks Laboratory Results Hemoglobin A1c Test 04/30/17 07:09 Range/Units Estimated Average Glucose 171 mg/dl Hemoglobin A1c 7.6 H 4.5-5.6 % Medical Emergencies . Who to Call and When: Medical Emergencies: If at any time you feel your situation is an emergency, please call 911 immediately. . Non-Emergent Contact Non-Emergency issues call your: Primary Care Provider . . "Provider Documentation" section prepared by Suzanna Capps. . Core Measure Problem Core Measures: None
--- NOTE | 2017-05-13 12:22 | Discharge Summary ---
Discharge Summary Date of Service May 13, 2017. Discharge Summary Admission Date: Apr 29, 2017 at 11:33 Discharge Date: May 13, 2017 Discharge Disposition: Rehab Consultations: Vascular surgery Pending Studies/Follow-Up: 6 weeks repeat EGD with GI to follow up gastric ulcer; needs followup with Urology and Surgery in [facility] for scrotal hemangioma Medication Reconciliation New Medications: Acetaminophen (Mapap) 325 Mg Tab 650 MG PO Q4H PRN for Pain, #30 TAB Cephalexin Monohydrate (Cephalexin) 500 Mg Cap 500 MG PO QID for 3 Days, #12 CAP Pantoprazole (Pantoprazole Sodium) 40 Mg Tab 40 MG PO BID, #60 TAB Tamsulosin HCl (Tamsulosin HCl) 0.4 Mg Cap 0.4 MG PO QAM, #30 CAP Vancomycin HCl (Vancomycin HCl) 100 Mg/Ml Inj 125 MG PO UD, #30 DOSE Take QID for 4 more days; BID for 1 week; Daily for 1 week; then once a day every other day for 8 weeks [Artificial Tears] () 225 DROPS/15 ML SOLN 1 DROPS OP Q2H PRN for dryness of the eyes, #1 BTL Continued Medications: Aspirin (Aspirin Ec) 81 Mg Tab 81 MG PO DAILY Digoxin (Digoxin) 0.125 Mg Tab 0.125 MG PO QAM Docusate Sodium (Colace) 100 Mg Cap 200 MG PO DAILY Ferrous Sulfate (Ferrous Sulfate) 325 Mg Tab 325 MG PO BID Finasteride (Finasteride) 5 Mg Tab 5 MG PO QAM Furosemide (Lasix) 20 Mg Tab 20 MG PO QAM Hydrocodone/Acetaminophen 5MG/325MG ([place] 5MG/325MG) Tab 1 TABLET PO Q6 PRN for Pain, TAB PRN PAIN Losartan Potassium (Losartan Potassium) 50 Mg Tab 50 MG PO QAM Metformin Hcl (Glucophage) 500 Mg Tab 500 MG PO QAM TAKE THIS MEDICATION ONCE DAILY WITH A MEAL. Metoprolol Succinate (Toprol Xl) 200 Mg Tab 200 MG PO QAM Potassium Chloride (Potassium Chloride Sr) 10 Meq Tab 10 MEQ PO QAM Probiotic Product (Probiotic) 1 Cap Cap 1 CAP PO TID Admission Information HPI (per Admitting provider): 76 year old male with PMH of scrotal hematoma, Afib, HTN, JUAN MANUEL, HTN presents to the Emergency Room with complaints of fever, chills and weakness. Pt said that for the last 2 night he has been having fever in the 102F. said that pt has been feeling very weak to the point where he cannot even stand. Pt said that he started to have pain in the left leg with weakness. He said that now the pain is in the left leg. He has a necrotic left 2nd toe that he said that he noticed it a couple days ago. said that he has been follow with the wound clinic for the for his scrotal hemangioma that has been sipping. He was on coumadin that was discontinued by cardiology because of bleeding from the scrotal hemangioma. He has multiple skin opening area from the scrotal area and said that it has not been getting worst. He denies any chest pain, palpitation, dizziness and shortness of breath. Physical Exam (per Admitting): General Appearance: WD/WN, no apparent distress Head: normocephalic Eyes: PERRL, EOMI ENT: hearing grossly normal Neck: no JVD Respiratory/Chest: normal breath sounds, no respiratory distress, no accessory muscle use Cardiovascular: + irregularly irregular Abdomen/GI: non tender, soft Genitourinary - Male: + pertinent finding (wound posterior scrotal area) Back: no CVA tenderness Extremities/Musculoskelatal: no calf tenderness, + pertinent finding (left 2nd toe necrotic, chronic LE discoloration) Neurologic/Psych: alert, oriented x 3 Skin: warm/dry Hospital Course SEPSIS: -secondary to scrotal wound infection and RLE cellulitis -had leukocytosis, lactic acid, and tachycardia with low grade fever -was initially on IV imipenem, clinda and vanco in the ER, was then continued on Vancomycin and Zosyn X 3 days, was then switched to PO Cephalexin -blood cultures: negative, urine: unable to obtain sample -continue Cephalexin PO Day #12/14 -ID consulted, appreciate recommendations -wound care consulted; requires careful daily wound care and cleaning after each urination/BM to prevent re infection -outpatient follow up after discharge with Urology Interventional Radiology in [facility] for possible repeat Sclerotherapy and follow up with Surgery in [facility] for 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 Soft tissue edema. -Arterial doppler of LE showed no significant stenosis; Moderate narrowing right posterior tibial artery with moderate to rather significant retrograde flow within the right dorsalis pedis artery. -Vascular surgery consulted, recommended local wound care to prevent infection until completely healed. No surgical intervention indicated at this time HTN: -BP was elevated; Losartan increased to 50mg BID -continue Metoprolol -meds were held yesterday due to GI bleed and relative hypotension DM TYPE II: -HbA1c: 7.6 -hold metformin -on insulin coverage while in hospital CHRONIC A FIB: -rate controlled -was on coumadin but discontinued last month by cardiology due to scrotum hemangioma bleeding -continued on metoprolol and digoxin -hold ASA for GI bleed, will resume when ok with GI AMBULATORY DYSFUNCTION: -PT/OT consulted -fall precautions -will need rehab upon discharge UJAN MANUEL: -however does not use a CPAP BPH: -continue finasteride -also on Flomax 05/08/17 CHRONIC BACK PAIN: -on hydrocodone prn -CT lumbar: multilevel degenerative disc change at the entire lumbar region.Moderate narrowing of the spinal canal at L2-L3, L3-L4, and most significantly at L4-L5. DISPO: Medically stable to transfer to [facility] pending approval Total time spent on discharge = This includes examination of the patient, discharge planning, medication reconciliation, and communication with other providers. Discharge Instructions See patient instructions Test 05/13/17 11:09 Bedside Glucose 188 mg/dl (70-99)
--- NOTE | 2017-05-19 10:18 | EMERGENCY ROOM VISIT NOTE ---
ED Visit Note First contact with patient: 07:49 Resident Physician Supervision Note: I interviewed and examined the patient. Discussed with Dr. Bryan and agree with findings and plan as documented in the note. Any exceptions or clarifications are listed here: [None] Documented By: Mushtaq Martin
== END 2017-05-13 13:43 | DRG 871 ==
LOC: EDBD 07:41 → C.EDB 07:42 → C.MED 11:33 → ENRESERV 11:46 → C.MED 04-30 10:31 → C.2E 04-30 21:42 → ENRESERV 05-03 16:04 → CANRESERV 05-03 16:04 → ENRESERV 05-03 16:58 → C.4E 05-03 17:17 → ENRESERV 05-09 11:50 → C.2T 05-09 12:30
PROVIDERS: ADMIT Internal Medicine; ATTEND Internal Medicine
PROC: 0W3P8ZZ Control Bleeding in Gastrointestinal Tract, Via Natural or Artificial Opening Endoscopic (ICD-10-PCS; principal; 2017-05-09 12:07)
PROC: 3E0G8GC Introduction of Other Therapeutic Substance into Upper GI, Via Natural or Artificial Opening Endoscopic (ICD-10-PCS; principal; 2017-05-09 12:07)
PROC: 0DJ08ZZ Inspection of Upper Intestinal Tract, Via Natural or Artificial Opening Endoscopic (ICD-10-PCS; principal; 2017-05-09 12:07)
DX: A41.9 Sepsis, unspecified organism (principal); K25.4 Chronic or unspecified gastric ulcer with hemorrhage; I50.32 Chronic diastolic (congestive) heart failure; Z68.41 Body mass index [BMI] 40.0-44.9, adult; L03.115 Cellulitis of right lower limb; A04.71 Enterocolitis due to Clostridium difficile, recurrent; N50.89 Other specified disorders of the male genital organs; D18.09 Hemangioma of other sites; I48.2 Chronic atrial fibrillation; K22.70 Barrett's esophagus without dysplasia; I11.0 Hypertensive heart disease with heart failure; E78.5 Hyperlipidemia, unspecified; G47.33 Obstructive sleep apnea (adult) (pediatric); E66.01 Morbid (severe) obesity due to excess calories; E11.9 Type 2 diabetes mellitus without complications; N40.0 Benign prostatic hyperplasia without lower urinary tract symptoms; M54.9 Dorsalgia, unspecified

== ENCOUNTER 2017-08-12 07:37 | Emergency (ER) | payer BC ==
[~2017-08-12 07:37] MED LIST changes: -ACET-1056 PO; -ACET-1222 PO; +ACET-1256 PO; -METO-648 PO; +METO200T31 PO; +MISCCAP80 PO; +PRT/20 PO; -SULF800T23 PO; +TRAM-10 PO; +VANC5CAP PO; +ZOLP5TAB6 PO
[2017-08-12 07:45] VITALS: Ht 182.9 cm
--- NOTE | 2017-08-12 08:10 | EMERGENCY ROOM VISIT NOTE ---
History Report prepared by Mann: Joann Whitmore Under the Supervision of: Dr. Nuha Justice M.D. First contact with patient: 07:51 Chief Complaint: UNABLE TO VOID Stated Complaint: CAN'T URINATE Nursing Triage Summary: Bladder infection this week, states he was passing blood clots earlier this week and placed on macrobid for infection Unable to void since 0400 today History of Present Illness The patient is a 76 year old male who presents to the Emergency Room with complaints of persistently being unable to void which began about 4 hours ago. He reports that he had been urinating fine before he went to bed, noting that he has been having hematuria and passed some blood clots. 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 The patient has been transferred to [facility] before for a cut down related to urinary retention and a buried penis. Source of History: patient Onset: 4 hours ago Position: other (global) Quality: other (unable to void) Timing: other (persistent) Note: Associated symptoms include: hematuria and passing blood clots. Review of Systems See HPI for pertinent positives & negatives. A total of 10 systems reviewed and were otherwise negative. 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 (17) ICH (intracerebral hemorrhage) (18) Obesity, morbid, BMI 40.0-49.9 (19) JUAN MANUEL (obstructive sleep apnea) (20) Symptomatic anemia (21) Symptomatic anemia Surgical Problems: (1) History of total replacement of right hip (2) History of ureter stent (3) S/P cholecystectomy (4) S/p excision of perineal lesion (5) S/P tonsillectomy and adenoidectomy (6) S/p transcatheter ablation Family History Diabetes mellitus SISTER Social History Smoking Status: Former Smoker Alcohol Use: none Drug Use: none Marital Status: Housing Status: lives with family Occupation Status: retired Current/Historical Medications Scheduled Aspirin (Aspirin Ec), 81 MG PO QAM Digoxin (Digoxin), 0.125 MG PO QAM Ferrous Sulfate (Ferrous Sulfate), 325 MG PO BID Finasteride (Finasteride), 5 MG PO QAM Furosemide (Lasix), 20 MG PO QAM Losartan Potassium (Losartan Potassium), 50 MG PO QAM Metformin Hcl (Glucophage), 500 MG PO QAM Metoprolol Succinate (Toprol Xl), 200 MG PO QAM Pantoprazole (Protonix), 40 MG PO BID Potassium Chloride (Potassium Chloride Sr), 10 MEQ PO QAM Probiotic Product (Probiotic), 1 CAP PO BID Scheduled PRN Acetaminophen (Tylenol), 1,000 MG PO Q6H PRN for Pain Tramadol (Ultram), 50 MG PO Q6H PRN for Pain Zolpidem Tartrate (Zolpidem Tartrate), 1 TAB PO HS PRN for Sleep Allergies Coded Allergies: Metronidazole (Verified Allergy, Severe, see below, 08/12/17) Last discharge summary indicates flagyl was stopped for possible temporal relation to foot drop that developed that admission. Amoxicillin (Verified Allergy, Intermediate, rash, 08/12/17) Physical Exam Vital Signs Date Time Temp Pulse Resp B/P (MAP) Pulse Ox O2 Delivery O2 Flow Rate FiO2 08/12/17 11:15 36.9 94 16 121/74 (90) 92 Room Air 08/12/17 11:01 36.6 97 18 156/64 94 Nasal Cannula 2 08/12/17 10:50 36.6 94 17 187/84 93 Nasal Cannula 2 08/12/17 10:40 90 17 169/97 93 Nasal Cannula 2 08/12/17 10:30 101 17 170/82 95 Room Air 08/12/17 10:20 36.7 98 17 160/85 97 Oxymask 5 08/12/17 09:05 36.3 86 18 203/100 92 08/12/17 08:54 86 18 203/100 92 Room Air 08/12/17 08:37 83 08/12/17 07:45 36.3 86 24 189/90 97 Room Air Physical Exam Vital signs reviewed. General: Chronically ill appearing, morbidly obese male, in no significant distress. HEENT: No scleral icterus, PERRLA, neck supple. Atraumatic. Cardiovascular: Regular rate and rhythm, no extra sounds. Pulmonary: Clear to auscultation bilaterally, normal work of breathing. Abdomen: Tenderness to palpation over abdomen diffusively with very large pannus. Soft, nondistended, positive bowel sounds. Genitals: Buried penis, unable to visual glans or meatus with surrounding suprapubic fat pressure, scrotum and testicles seem to be deviated to the right with a large hemangioma to the left perineum. Musculoskeletal: Atraumatic, no peripheral edema. Neurologic: Patient awake alert and oriented x 3. Skin: Breakdown noted particularly to the hemangioma. No rash appreciated otherwise. Medical Decision & Procedures ER Provider Diagnostic Interpretation: Bladder scan attempted, no bladder appreciated. Laboratory Results 08/12/17 08:15 Red Blood Count 5.39, Mean Corpuscular Volume 86.8, Mean Corpuscular Hemoglobin 28.6, Mean Corpuscular Hemoglobin Concent 32.9, Mean Platelet Volume 10.0, Neutrophils (%) (Auto) 71.3, Lymphocytes (%) (Auto) 17.2, Monocytes (%) (Auto) 6.9, Eosinophils (%) (Auto) 3.8, Basophils (%) (Auto) 0.4, Neutrophils # (Auto) 7.05, Lymphocytes # (Auto) 1.70, Monocytes # (Auto) 0.68, Eosinophils # (Auto) 0.38, Basophils # (Auto) 0.04 08/12/17 08:15 Test 08/12/17 08:15 08/12/17 08:39 08/12/17 10:26 White Blood Count 9.89 K/uL (4.8-10.8) Red Blood Count 5.39 M/uL (4.7-6.1) Hemoglobin 15.4 g/dL (14.0-18.0) Hematocrit 46.8 % (42-52) Mean Corpuscular Volume 86.8 fL (80-100) Mean Corpuscular Hemoglobin 28.6 pg (25-34) Mean Corpuscular Hemoglobin Concent 32.9 g/dl (32-36) Platelet Count 269 K/uL (130-400) Mean Platelet Volume 10.0 fL (7.4-10.4) Neutrophils (%) (Auto) 71.3 % Lymphocytes (%) (Auto) 17.2 % Monocytes (%) (Auto) 6.9 % Eosinophils (%) (Auto) 3.8 % Basophils (%) (Auto) 0.4 % Neutrophils # (Auto) 7.05 K/uL (1.4-6.5) Lymphocytes # (Auto) 1.70 K/uL (1.2-3.4) Monocytes # (Auto) 0.68 K/uL (0.11-0.59) Eosinophils # (Auto) 0.38 K/uL (0-0.5) Basophils # (Auto) 0.04 K/uL (0-0.2) RDW Standard Deviation 47.5 fL (36.4-46.3) RDW Coefficient of Variation 15.0 % (11.5-14.5) Immature Granulocyte % (Auto) 0.4 % Immature Granulocyte # (Auto) 0.04 K/uL (0.00-0.02) Anion Gap 9.0 mmol/L (3-11) Estimated GFR () 63.2 Estimated GFR (Non- 54.5 BUN/Creatinine Ratio 18.0 (10-20) Calcium Level 9.2 mg/dl (8.5-10.1) Total Bilirubin 0.6 mg/dl (0.2-1) Direct Bilirubin 0.1 mg/dl (0-0.2) Aspartate Amino Transf (AST/SGOT) 12 U/L (15-37) Alanine Aminotransferase (ALT/SGPT) 11 U/L (12-78) Alkaline Phosphatase 62 U/L (45-117) Total Protein 9.1 gm/dl (6.4-8.2) Albumin 3.5 gm/dl (3.4-5.0) Bedside Lactic Acid Venous 2.35 mmol/L (0.90-1.70) Bedside Glucose 153 mg/dl (70-99) Laboratory results per my review. Medications Administered Medications (Trade) Dose Ordered Sig/Jakub Route Start Time Stop Time Status Last Admin Dose Admin Hydromorphone HCl (Dilaudid Inj) 1 mg NOW STAT IV 08/12/17 08:13 08/12/17 08:19 DC 2/10/18 08:29 1 MG Ondansetron HCl (Zofran Inj) 4 mg NOW STAT IV 08/12/17 08:13 08/12/17 08:20 DC 08/12/17 08:29 4 MG Ceftriaxone Sodium (Rocephin Inj) 1 gm NOW STAT IV 08/12/17 08:33 08/12/17 08:35 DC 08/12/17 08:33 1 GM ED Course 0753: Past medical records reviewed. The patient was evaluated in room A12. A complete history and physical examination was performed. 0813: Ordered Zofran Inj IV and Dilaudid Inj 1mg IV. 08: I reviewed the patient's case with Dr. Zhang, urology. She will evaluate the patient for further management and a catheter placement. 0833: Ordered Rocephin Inj 1gm IV. Medical Decision The patient is a 76 year old male who presents to the ED with complaints of being unable to void. Differentials include prostate obstruction, kidney stones , UTI, and prostatitis. This patient was evaluated and appeared to be in some discomfort. IV access was obtained and laboratory work was drawn. Physical examination is significant for an inability to visualize the glans penis. There is no bladder identified on bladder scan, I suspect the patient's anatomy is skewed. Given the patient's extensive history of urologic anatomical difficulties, Dr. Zhang of urology was consulted. After reviewing the records, she feels that she may be able to place a Baires catheter in the OR with the cystoscope. Patient was given 1 mg of IV Dilaudid for his discomfort. Laboratory work reveals a normal white blood cell count is slightly elevated lactic acid. No IV hydration was initiated as the patient has bladder obstruction and vital signs are stable. The patient was medicated with IV ceftriaxone after consultation with Dr. Zhang. He has are aware of the plan and agree. He was advised he is nothing by mouth. Medication Reconcilliation Current Medication List: was personally reviewed by me Blood Pressure Screening Patient's blood pressure: Elevated blood pressure Consults Time Called: 828 Consulting Physician: Dr. Zhang, urology Returned Call: [phone] I reviewed the patient's case with Dr. Zhang, urology. She will evaluate the patient for further management and a catheter placement. Impression Primary Impression: Urinary retention Additional Impressions: Acquired buried penis Morbid obesity Scribe Attestation The scribe's documentation has been prepared under my direction and personally reviewed by me in its entirety. I confirm that the note above accurately reflects all work, treatment, procedures, and medical decision making performed by me. Departure Information Dispostion Being Evaluated By Hospitalist Referrals Donte Szymanski D.O. (PCP) Forms HOME CARE DOCUMENTATION FORM, IMPORTANT VISIT INFORMATION, WORK / SCHOOL INSTRUCTIONS Patient Instructions My [facility] Problem Qualifiers
[2017-08-12] MEDS ORDERED: HYDROmorphone INJ 1 MG/ML SYR IV STA (08:13)
[2017-08-12] MEDS ORDERED: ONDANSETRON INJ 2 MG/ML 2 ML VIAL IV STA (08:13)
[2017-08-12] MEDS ORDERED: CEFTRIAXONE SOD INJ 1 GM ADDVIAL IV STA (08:33)
[2017-08-12] MEDS ORDERED: MCRB100HP PO (08:34)
[2017-08-12 08:38] LABS: BASO % 0.4 %; BASO ABS # 0.04 K/uL (0-0.2); EOS % 3.8 %; EOS ABS # 0.38 K/uL (0-0.5); HEMATOCRIT 46.8 % (42-52); HEMOGLOBIN 15.4 g/dL (14.0-18.0); IG# 0.04 K/uL (0.00-0.02); LYMPH % 17.2 %; MEAN CELL VOLUME 86.8 fL (80-100); MEAN CORPUSCULAR HEMOGLOBIN 28.6 pg (25-34); MEAN CORPUSCULAR HGB CONC 32.9 g/dl (32-36); MONO % 6.9 %; MONO ABS # 0.68 K/uL (0.11-0.59); NEUT % 71.3 %; NEUT ABS # 7.05 K/uL (1.4-6.5); PLATELET COUNT 269 K/uL (130-400); RED CELL DISTRIBUTION WIDTH SD 47.5 fL (36.4-46.3); WHITE BLOOD COUNT 9.89 K/uL (4.8-10.8)
[2017-08-12 08:54] LABS: ALBUMIN 3.5 gm/dl (3.4-5.0); ALT/SGPT 11 U/L (12-78); BLOOD UREA NITROGEN 23 mg/dl (7-18); CALCIUM 9.2 mg/dl (8.5-10.1); CARBON DIOXIDE 24 mmol/L (21-32); CREATININE 1.27 mg/dl (0.60-1.40); GLUCOSE 147 mg/dl (70-99); POTASSIUM 4.4 mmol/L (3.5-5.1); SODIUM 133 mmol/L (136-145)
[2017-08-12] MEDS ORDERED: FENTANYL CITRATE INJ 50 MCG/1 ML 2 ML VIAL ONE (08:56)
[2017-08-12] MEDS ORDERED: MIDAZOLAM HCL 1 MG/ML 2ML VIAL ONE (08:56)
[2017-08-12] MEDS ORDERED: LIDOCAINE HCL 2% 2 ML VIAL (20MG/ML) ONE (08:56)
[2017-08-12] MEDS ORDERED: PROPOFOL IV EMULSION 10 MG/ML 20 ML VIAL IV ONE (08:56)
[2017-08-12 08:57] LABS: ALKALINE PHOSPHATASE 62 U/L (45-117); AST/SGOT 12 U/L (15-37); TOTAL PROTEIN 9.1 gm/dl (6.4-8.2)
[2017-08-12] MEDS ORDERED: KETAMINE HCL INJ 50 MG/ML 10 ML VIAL ONE (08:57)
[2017-08-12 09:05] VITALS: O2SAT 92
[2017-08-12] MEDS ORDERED: PANT40TA PO (09:30)
--- NOTE | 2017-08-12 09:44 | Urology Consultation ---
History General Date of Service: Aug 12, 2017. Chief Complaint: urinary retention Primary Care Physician: Donte Szymanski D.O. Pt seen a urologist before?: Yes If yes, why?: urinary retention History of Present Illness I am asked by Dr Justice to evauate patient for urinary retention. He has a buried penis and this makes bedside patiño catheter placement impossible. He had last urology visit october 2016 Dr Brown [facility] [place]. He was urinating spontaneously then,. He has not been able to urinate since 4am. he has painful bladder distention. he i fasted. Laboratory Results Past 24 Hours Test 08/12/17 08:15 08/12/17 08:39 Range/Units White Blood Count 9.89 4.8-10.8 K/uL Red Blood Count 5.39 4.7-6.1 M/uL Hemoglobin 15.4 14.0-18.0 g/dL Hematocrit 46.8 42-52 % Mean Corpuscular Volume 86.8 80-100 fL Mean Corpuscular Hemoglobin 28.6 25-34 pg Mean Corpuscular Hemoglobin Concent 32.9 32-36 g/dl Platelet Count 269 130-400 K/uL Mean Platelet Volume 10.0 7.4-10.4 fL Neutrophils (%) (Auto) 71.3 % Lymphocytes (%) (Auto) 17.2 % Monocytes (%) (Auto) 6.9 % Eosinophils (%) (Auto) 3.8 % Basophils (%) (Auto) 0.4 % Neutrophils # (Auto) 7.05 1.4-6.5 K/uL Lymphocytes # (Auto) 1.70 1.2-3.4 K/uL Monocytes # (Auto) 0.68 0.11-0.59 K/uL Eosinophils # (Auto) 0.38 0-0.5 K/uL Basophils # (Auto) 0.04 0-0.2 K/uL RDW Standard Deviation 47.5 36.4-46.3 fL RDW Coefficient of Variation 15.0 11.5-14.5 % Immature Granulocyte % (Auto) 0.4 % Immature Granulocyte # (Auto) 0.04 0.00-0.02 K/uL Sodium Level 133 136-145 mmol/L Potassium Level 4.4 3.5-5.1 mmol/L Chloride Level 100 98-107 mmol/L Carbon Dioxide Level 24 21-32 mmol/L Anion Gap 9.0 3-11 mmol/L Blood Urea Nitrogen 23 7-18 mg/dl Creatinine 1.27 0.60-1.40 mg/dl Estimated GFR () 63.2 Estimated GFR (Non- 54.5 BUN/Creatinine Ratio 18.0 10-20 Random Glucose 147 70-99 mg/dl Calcium Level 9.2 8.5-10.1 mg/dl Total Bilirubin 0.6 0.2-1 mg/dl Direct Bilirubin 0.1 0-0.2 mg/dl Aspartate Amino Transf (AST/SGOT) 12 15-37 U/L Alanine Aminotransferase (ALT/SGPT) 11 12-78 U/L Alkaline Phosphatase 62 45-117 U/L Total Protein 9.1 6.4-8.2 gm/dl Albumin 3.5 3.4-5.0 gm/dl Bedside Lactic Acid Venous 2.35 0.90-1.70 mmol/L Labs were reviewed and are within normal limits unless listed below. Labs are available in the chart and at [facility] Problem List Medical Problems: (1) Acquired buried penis Status: Acute (2) Anticoagulated on warfarin Status: Acute (3) Fever Status: Acute (4) Scrotal bleeding Status: Acute (5) Scrotal infection Status: Acute (6) Testicular mass Status: Acute (7) Urinary retention Status: Acute Past History A Fib, diabetes, hypertension, other (morbid obesity ) Additional Comments: incision of buried penis jun 2015 Family History Diabetes mellitus SISTER Diabetes mellitus SISTER Heart disease Social History Hx Tobacco Use In Past Year?: No Marital status: single, Housing status: lives with family, lives with significant other Occupation status: retired Immunizations History of Influenza Vaccine: Yes Influenza Vaccine Date: May 09, 2016 History of Tetanus Vaccine?: Yes Tetanus Immunization Date: Aug 09, 2012 History of Pneumococcal: Yes Pneumococcal Date: Aug 27, 2006 History of Hepatitis B Vaccine: No History of MDRO No Allergies Coded Allergies: Metronidazole (Verified Allergy, Severe, see below, 08/12/17) Last discharge summary indicates flagyl was stopped for possible temporal relation to foot drop that developed that admission. Amoxicillin (Verified Allergy, Intermediate, rash, 08/12/17) Medications Home Medications: Home Meds and Scripts Medications Dose Route/Sig Max Daily Dose Days Date Category Protonix (Pantoprazole Sodium) 40 Mg Tab 40 Mg PO BID 08/12/17 Reported Nitrofurantoin Monohydrat (Nitrofurantoin) 1 Homepack Ea 100 Mg PO BID 08/12/17 Reported Tylenol (Acetaminophen) 500 Mg Tab 1,000 Mg PO Q6H PRN 06/19/17 Reported Ultram (Tramadol HCl) 50 Mg Tab 50 Mg PO Q6H PRN 06/19/17 Reported Zolpidem Tartrate 5 Mg Tab 1 Tab PO HS PRN 06/19/17 Reported Probiotic (Probiotic Product) 1 Cap Cap 1 Cap PO BID 04/29/17 Reported Aspirin Ec (Aspirin) 81 Mg Tab 81 Mg PO QAM 11/11/16 Reported Ferrous Sulfate 325 Mg Tab 325 Mg PO BID 09/23/16 Reported Losartan Potassium 50 Mg Tab 50 Mg PO QAM 09/23/16 Reported Potassium Chloride Sr (Potassium Chloride) 10 Meq Tab 10 Meq PO QAM 09/23/16 Reported Toprol Xl (Metoprolol Succinate) 200 Mg Tab 200 Mg PO QAM 09/23/16 Reported Finasteride 5 Mg Tab 5 Mg PO QAM 08/26/16 Reported Digoxin 0.125 Mg Tab 0.125 Mg PO QAM 06/22/15 Reported Lasix (Furosemide) 20 Mg Tab 20 Mg PO QAM 03/03/13 Reported Glucophage (Metformin Hcl) 500 Mg Tab 500 Mg PO QAM 03/26/12 Reported Review of Systems Review of Systems Constitutional: No fever, No chills Neurological: No dizzy Endocrine: + excessive thirst, + tired/sluggish Gastrointestinal: + abdominal pain, + diarrhea Skin: No rash Male : + urinary retention Additional Comments: has sore on scrotum Physical Exam Vital Signs: Vital Signs Past 12 Hours Date Time Temp Pulse Resp B/P (MAP) Pulse Ox O2 Delivery O2 Flow Rate FiO2 08/12/17 09:05 36.3 86 18 203/100 92 08/12/17 08:54 86 18 203/100 92 Room Air 08/12/17 08:37 83 08/12/17 07:45 36.3 86 24 189/90 97 Room Air Physical Exam: General Appearance: WD/WN, + moderate distress, + obese Eyes: bilateral eyes normal inspection ENT: hearing grossly normal Neck: no adenopathy, trachea midline Respiratory/Chest: normal breath sounds, no respiratory distress, no accessory muscle use Cardiovascular: regular rate, rhythm Extremities: + pertinent finding (dark from chronic venous stasis) Neurologic/Psychiatric: alert, normal mood/affect, oriented x 3 Assessment & Plan Assessment & Plan buried penis plan cysto and placement of patiño over a wire ceftriaxone given in ER We have no good culture data to follow. It is impossible to get clean urine specimens due to the buried penis
[2017-08-12] MEDS ORDERED: FENTANYL CITRATE INJ 50 MCG/1 ML 2 ML VIAL IV PRN (10:15)
[2017-08-12] MEDS ORDERED: ATROPINE SULFATE 0.1 MG/ML 5ML SYR IV PRN (10:15)
[2017-08-12] MEDS ORDERED: EpHEDrine SULFATE INJ 50 MG/ML AMP IV PRN (10:15)
--- NOTE | 2017-08-12 10:22 | [facility] Operative Report ---
Operative Report Operative Date Aug 12, 2017. Pre-Operative Diagnosis Urinary Retention, Buried penis Post-Operative Diagnosis Same as preoperative diagnosis, plus meatal stenosis Procedure(s) Performed Cystoscopy and placement of patiño over a wire, urethral dilatation Surgeon Dr. 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 His genitals were prepped and draped in sterile fashion. Time out held with team. I placed an 18 fr flexible cystoscope into the small opening of hte buried penis. I can see a very small lumen about 6 fr. I passed a 5 fr catheter and a stiff wire thru the opening and it passed easily. I then used a 10 fr dual lumen cath to stretch the meatus over the wire then passed a 16 fr [place] tip patiño with resistance at the meatus. The urine is darkly bloody so I upsized the patiño to a 18 fr [place]ak tip patiño and inflated the balloon with 10mL of water. He drained 800 ml of darkly bloody urine. Urine does not appear purulent but I sent a specimen for culture. I connected patiño to drainage bag and leg bag. He transferred to recovery under my escort, in stable condition. Plan: Home today await urine culture to determine any further antibiotics. ASA 3 clean contaminated case ceftriaxone antibiotic organizational effectiveness director I attest to the content of the Intraoperative Record and any orders documented therein. Any exceptions are noted below.
--- NOTE | 2017-08-12 10:44 | Anesthesiology Progress Note ---
Anesthesia Post Op Note Date & Time Aug 12, 2017 at 10:44 Vital Signs Pain Intensity: 0 Vital Signs Past 12 Hours Date Time Temp Pulse Resp B/P (MAP) Pulse Ox O2 Delivery O2 Flow Rate FiO2 08/12/17 10:40 90 17 169/97 93 Nasal Cannula 2 08/12/17 10:30 101 17 170/82 95 Room Air 08/12/17 10:20 36.7 98 17 160/85 97 Oxymask 5 08/12/17 09:05 36.3 86 18 203/100 92 08/12/17 08:54 86 18 203/100 92 Room Air 08/12/17 08:37 83 08/12/17 07:45 36.3 86 24 189/90 97 Room Air Notes Mental Status: alert / awake / arousable, participated in evaluation Pt Amnestic to Procedure: Yes Nausea / Vomiting: adequately controlled Pain: adequately controlled Airway Patency, RR, SpO2: stable & adequate BP & HR: stable & adequate Hydration State: stable & adequate Anesthetic Complications: no major complications apparent
--- NOTE | 2017-08-12 10:46 | Discharge Instructions ---
Discharge Instructions Date of Service Aug 12, 2017. Admission Reason for Admission: urinary retention Discharge Discharge Diagnosis / Problem: urinary retention, buried penis acquired, meatal stenosis Discharge Goals Goal(s): Decrease discomfort, Improve function Activity Recommendations Activity Limitations: resume your previous activity Lifting Limitations: none Exercise/Sports Limitations: none Shower/Bathe: no limitations Driving or Machine Use: no limitations . Instructions / Follow-Up Instructions / Follow-Up will call about follow up with Dr Brown Current Hospital Diet Patient's current hospital diet: Discharge Diet Recommended Diet: Diabetes Type 2 Diet Fluid Restriction: None Procedures Procedures Performed: Cystoscopy and placement of patiño over a wire, urethral dilatation Pending Studies Studies pending at discharge: yes List of pending studies: urine culture Medical Emergencies . Who to Call and When: Medical Emergencies: If at any time you feel your situation is an emergency, please call 911 immediately. . Non-Emergent Contact Non-Emergency issues call your: Urologist ([phone]) Call Non-Emergent contact if: temperature is above 100.5 . . "Provider Documentation" section prepared by Priscilla Zhang. . VTE Core Measure Inpt VTE Proph given/why not?: Other Anticoagulation
[2017-08-12 11:01] VITALS: BP 156/64; PULSE 97; TEMP 36.6; O2SAT 94
[2017-08-12 11:15] VITALS: BP 121/74; PULSE 94; TEMP 36.9; O2SAT 92
--- NOTE | 2017-08-15 14:09 | Pharmacy Progress Note ---
ED Pharmacist Culture FollowUp Date of Service: Aug 15, 2017. Patient's urine cx from 08/12 (cath specimen) is growing 7,000 CFU/mL pseudomonas aeruginosa. The patient had been seen in the ER on that date for inability to urinate, c/o hematuria w/ clots He has a h/o urinary retention and previously had cut-down for penis buried by pannus Urology was consulted in the ER who took the patient to the OR for patiño cath placement via cystoscope. It does not appear the patient was discharge on abx therapy when leaving the ER. He did however receive Rocephin IV x 1. I contacted [facility] today and they requested we fax over a copy of the urine cx result for Dr Zhang to review. Results faxed to [phone] per their request.
== END 2017-08-12 08:57 | disposition home or self-care (01) ==
LOC: C.EDB 07:41 → C.EDA 08:57
DX: R33.9 Retention of urine, unspecified (principal); Q55.64 Hidden penis; N35.9 Urethral stricture, unspecified; I48.91 Unspecified atrial fibrillation; I11.0 Hypertensive heart disease with heart failure; I50.9 Heart failure, unspecified; E11.9 Type 2 diabetes mellitus without complications; E66.01 Morbid (severe) obesity due to excess calories; G47.33 Obstructive sleep apnea (adult) (pediatric); Z96.641 Presence of right artificial hip joint; Z87.891 Personal history of nicotine dependence; Z79.899 Other long term (current) drug therapy; Z88.1 Allergy status to other antibiotic agents; Z90.89 Acquired absence of other organs; Z90.49 Acquired absence of other specified parts of digestive tract; Z79.82 Long term (current) use of aspirin; Z83.3 Family history of diabetes mellitus

== ENCOUNTER 2017-08-29 03:24 | Emergency (ER) | payer BC ==
[~2017-08-29] VITALS: Ht 182.9 cm; Wt 133.3 kg
[~2017-08-29 03:24] MED LIST changes: -DOCU-94 PO; +PANT40TA PO; -PRT/20 PO; -VANC5CAP PO
[2017-08-29] MEDS ORDERED: ONDANSETRON INJ 2 MG/ML 2 ML VIAL IV STA (03:51)
[2017-08-29] MEDS ORDERED: HYDROmorphone INJ 2 MG/ML SYR/VIAL IV STA (03:51)
--- NOTE | 2017-08-29 03:51 | EMERGENCY ROOM VISIT NOTE ---
History Report prepared by Mann: Dale Page Under the Supervision of: Dr. Lillian Iglesias D.O. First contact with patient: 03:33 Chief Complaint: VOMITING Stated Complaint: VOMITING,STOMACH PAIN History of Present Illness The patient is a 76 year old male who presents to the Emergency Room with complaints of persistent vomiting for the past 24 hours. He states that he vomited 6 times today, and he has been having abdominal pain that moves around, and up til this he had felt fine. The patient notes that he has been supposed to have a scope for gastric ulcers, though it has been cancelled twice so far. He states that he was in the hospital 5-6 weeks ago, and they discovered the he had these ulcers, and 2-3 weeks ago he was in for urinary retention, and a Baires catheter was placed. The patient notes that he was only able to sleep 15 minutes at a time tonight, and he states that no one else is sick around him. He notes that his catheter has been draining normally. The patient notes that he took tramadol 3 hours ago, and his states that the patient was able to drink water and yolanda [place]. He has a history of a cholecystectomy, though he denies any other abdominal surgeries. Source of History: patient, spouse/significant other Onset: 24 hours ago Position: other (global) Quality: other (vomiting) Timing: other (persistent) Associated Symptoms: + abdominal pain Review of Systems See HPI for pertinent positives & negatives. A total of 10 systems reviewed and were otherwise negative. 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 (17) ICH (intracerebral hemorrhage) (18) Obesity, morbid, BMI 40.0-49.9 (19) JUAN MANUEL (obstructive sleep apnea) (20) Symptomatic anemia (21) Symptomatic anemia Surgical Problems: (1) History of total replacement of right hip (2) History of ureter stent (3) S/P cholecystectomy (4) S/p excision of perineal lesion (5) S/P tonsillectomy and adenoidectomy (6) S/p transcatheter ablation Family History Diabetes mellitus SISTER Diabetes mellitus SISTER Heart disease Social History Smoking Status: Former Smoker Alcohol Use: none Drug Use: none Marital Status: single, Housing Status: lives with family Occupation Status: retired Current/Historical Medications Scheduled Aspirin (Aspirin Ec), 81 MG PO QAM Digoxin (Digoxin), 0.125 MG PO QAM Ferrous Sulfate (Ferrous Sulfate), 325 MG PO BID Finasteride (Finasteride), 5 MG PO QAM Furosemide (Lasix), 20 MG PO QAM Losartan Potassium (Losartan Potassium), 50 MG PO QAM Metformin Hcl (Glucophage), 500 MG PO QAM Metoprolol Succinate (Toprol Xl), 200 MG PO QAM Pantoprazole (Protonix), 40 MG PO BID Potassium Chloride (Potassium Chloride Sr), 10 MEQ PO QAM Probiotic Product (Probiotic), 1 CAP PO BID Scheduled PRN Acetaminophen (Tylenol), 1,000 MG PO Q6H PRN for Pain Tramadol (Ultram), 50 MG PO Q6H PRN for Pain Zolpidem Tartrate (Zolpidem Tartrate), 1 TAB PO HS PRN for Sleep Allergies Coded Allergies: Metronidazole (Verified Allergy, Severe, see below, 08/29/17) Last discharge summary indicates flagyl was stopped for possible temporal relation to foot drop that developed that admission. Amoxicillin (Verified Allergy, Intermediate, rash, 08/29/17) Physical Exam Vital Signs Date Time Temp Pulse Resp B/P (MAP) Pulse Ox O2 Delivery O2 Flow Rate FiO2 08/29/17 07:53 36.8 88 18 133/68 95 08/29/17 06:28 101 17 144/69 91 Room Air 08/29/17 04:50 117 14 154/82 96 Room Air 08/29/17 04:09 92 08/29/17 03:28 36.8 96 20 223/97 98 Room Air Physical Exam General: Morbidly obese male who appears uncomfortable. HEENT: Head - normocephalic and atraumatic Pupils are equal, round, and reactive to light. Extraocular eye muscles are intact, and sclera are anicteric. Nose - moist nasal mucosa without discharge. Mouth - moist buccal mucosa. Oropharynx is nonerythematous and there is no tonsillar exudate or edema noted. Neck: Supple; no JVD, nuchal rigidity, cervical lymphadenopathy. Heart: Regular rate and rhythm. There is a normal S1 and S2 with no murmurs, clicks, or gallops appreciated. Lungs: Clear to auscultation bilaterally with no wheezes, rales, or rhonchi. Abdomen: Periumbilical pain with palpation. Soft, nondistended, with good bowel sounds. There are no palpable pulsatile masses or hepatosplenomegaly. There is no guarding, rigidity, or rebound noted. Extremities: No evidence of cyanosis, clubbing, or edema. There are easily palpable peripheral pulses. Skin: warm and dry with good turgor and no rashes. Medical Decision & Procedures ER Provider Diagnostic Interpretation: Radiology results as stated below per my review and the radiologist's interpretation: CT ABDOMEN & PELVIS With Contrast: Comparison: CT dated 05/09/2017. No evidence of bowel obstruction, as clinically queried. Fluid within the colon suggestive of diarrheal state, possibly due to enteritis/ enterocolitis or other process. Recommend clinical correlation. Bilateral renal cysts. No hydronephrosis or ureteral calculus. Baires catheter is present within the bladder. Bladder is decompressed with mild irregularity of the bladder wall. Correlate with urinalysis to exclude cystitis. Irregular skin thickening and nodularity along inferior buttocks (Series 2, Images 108 - 116). Correlate clinically. Stable small focus of air in the liver (Series 2, Image 25), probably small pneumobilia. No findings to suggest acute appendicitis. Additional findings: Cholecystectomy. Right hip arthroplasty with associated artifact. Unable to assess flanks due to patient size. Atherosclerotic vascular disease. No abdominal aortic aneurysm. Stable mild nodularity of liver surface. Radiologist: Venus Thao MD ABDOMEN 2VIEW W/PA CHEST RTN CLINICAL HISTORY: Abdominal pain, nausea, vomiting COMPARISON STUDY: CT scan dated 05/09/2017 FINDINGS: The erect chest reveals no free air. There is no focal pulmonary consolidation. Erect and supine views the abdomen reveal surgical clips within the right upper quadrant consistent with a prior cholecystectomy. There is a Baires catheter present. There are no transition zones indicate bowel obstruction. IMPRESSION: No evidence of bowel obstruction. No evidence of free air. Electronically signed by: Esau Rosa M.D. 08/29/2017 6:57 AM Dictated Date/Time: 08/29/2017 6:56 AM Laboratory Results 08/29/17 03:45 Red Blood Count 4.95, Mean Corpuscular Volume 83.0, Mean Corpuscular Hemoglobin 27.7, Mean Corpuscular Hemoglobin Concent 33.3, Mean Platelet Volume 9.2, Neutrophils (%) (Auto) 82.8, Lymphocytes (%) (Auto) 10.7, Monocytes (%) (Auto) 6.0, Eosinophils (%) (Auto) 0.0, Basophils (%) (Auto) 0.1, Neutrophils # (Auto) 7.79, Lymphocytes # (Auto) 1.01, Monocytes # (Auto) 0.56, Eosinophils # (Auto) 0.00, Basophils # (Auto) 0.01 08/29/17 03:45 Test 08/29/17 03:45 08/29/17 03:55 White Blood Count 9.41 K/uL (4.8-10.8) Red Blood Count 4.95 M/uL (4.7-6.1) Hemoglobin 13.7 g/dL (14.0-18.0) Hematocrit 41.1 % (42-52) Mean Corpuscular Volume 83.0 fL (80-100) Mean Corpuscular Hemoglobin 27.7 pg (25-34) Mean Corpuscular Hemoglobin Concent 33.3 g/dl (32-36) Platelet Count 322 K/uL (130-400) Mean Platelet Volume 9.2 fL (7.4-10.4) Neutrophils (%) (Auto) 82.8 % Lymphocytes (%) (Auto) 10.7 % Monocytes (%) (Auto) 6.0 % Eosinophils (%) (Auto) 0.0 % Basophils (%) (Auto) 0.1 % Neutrophils # (Auto) 7.79 K/uL (1.4-6.5) Lymphocytes # (Auto) 1.01 K/uL (1.2-3.4) Monocytes # (Auto) 0.56 K/uL (0.11-0.59) Eosinophils # (Auto) 0.00 K/uL (0-0.5) Basophils # (Auto) 0.01 K/uL (0-0.2) RDW Standard Deviation 43.8 fL (36.4-46.3) RDW Coefficient of Variation 14.6 % (11.5-14.5) Immature Granulocyte % (Auto) 0.4 % Immature Granulocyte # (Auto) 0.04 K/uL (0.00-0.02) Anion Gap 11.0 mmol/L (3-11) Estimated GFR () 63.2 Estimated GFR (Non- 54.5 BUN/Creatinine Ratio 18.9 (10-20) Calcium Level 9.0 mg/dl (8.5-10.1) Total Bilirubin 0.8 mg/dl (0.2-1) Direct Bilirubin 0.2 mg/dl (0-0.2) Aspartate Amino Transf (AST/SGOT) 13 U/L (15-37) Alanine Aminotransferase (ALT/SGPT) 14 U/L (12-78) Alkaline Phosphatase 67 U/L (45-117) Troponin I < 0.015 ng/ml (0-0.045) Total Protein 8.9 gm/dl (6.4-8.2) Albumin 3.3 gm/dl (3.4-5.0) Lipase 99 U/L (73-393) Urine Color DK YELLOW Urine Appearance TURBID (CLEAR) Urine pH 5.5 (4.5-7.5) Urine Specific [place] 1.022 (1.000-1.030) Urine Protein 3+ (NEG) Urine Glucose (UA) NEG (NEG) Urine Ketones 1+ (NEG) Urine Occult Blood 1+ (NEG) Urine Nitrite NEG (NEG) Urine Bilirubin NEG (NEG) Urine Urobilinogen NEG (NEG) Urine Leukocyte Esterase MODERATE (NEG) Urine WBC (Auto) >30 /hpf (0-5) Urine RBC (Auto) 0-4 /hpf (0-4) Urine Hyaline Casts (Auto) 1-5 /lpf (0-5) Urine Epithelial Cells (Auto) 20-30 /lpf (0-5) Urine Bacteria (Auto) 4+ (NEG) Urine Pathogenic Casts 0-3 GRANULAR CASTS /lpf (0) Laboratory results per my review. Medications Administered Medications (Trade) Dose Ordered Sig/Jakub Route Start Time Stop Time Status Last Admin Dose Admin Ondansetron HCl (Zofran Inj) 4 mg NOW STAT IV 08/29/17 03:51 08/29/17 03:52 DC 08/29/17 04:07 4 MG Hydromorphone HCl (Dilaudid Inj) 2 mg NOW STAT IV 08/29/17 03:51 08/29/17 03:52 DC 08/29/17 04:08 2 MG Procedure Ordered: Dilaudid IV and Zofran IV ECG Per My Interpretation Indication: vomiting Rate (beats per minute): 92 Rhythm: atrial fibrillation Findings: ST depression (Lead 1 and AVL), other (SLight biphasic T waves in the lateral leads) Comparison ECG Date: 04/29/17 Change: Biphasic T waves are new. ED Course 0333: Past medical records reviewed. The patient was evaluated in room B3. A complete history and physical exam was performed. An IV lock was initiated and labs were drawn as above. Urine specimen was obtained from the patient's catheter 0351: Dilaudid 2mg IV, Zofran 4mg IV. The patient had an obstruction series as described above. 0456: I reevaluated the patient, and he states that he is currently symptom free. 0559: The patient's blood pressure has come down, and he is no longer vomiting. 0616: The patient just went to CT scan to rule out small bowel obstruction. 0648: I reassessed the patient, and he is still comfortable. 0707: I reevaluated the patient, and he feels good he is going to try to drink orange juice and eat some crackers, then he will be discharged home. Medical Decision The patient is a 76 year old male who presents to the ED with vomiting. Differential diagnosis includes small bowel obstruction, pancreatitis, viral illness, and diverticulitis. Laboratory interpretation: No leukocytosis; stable H&H; sodium of 132; BUN 24; glucose 185; normal LFTs; normal lipase;; 1+ ketones, 1+ blood, moderate leukocyte esterase, 4+ bacteria; greater than 30 white blood cells This is a 76-year-old male patient who presents to the emergency department with abdominal pain and vomiting. This was fairly sudden in onset. The patient 's symptoms were completely relieved with IV Zofran and Dilaudid. Obstruction series and CT scan of the abdomen/pelvis were unremarkable. On reevaluation of the patient, his pain had subsided. The patient does have an indwelling Baires catheter and a urine that looks questionably infected. We will wait for the urine culture to return to start the patient on antibiotics if necessary Medication Reconcilliation Current Medication List: was personally reviewed by me Blood Pressure Screening Patient's blood pressure: Elevated blood pressure Blood pressure disposition: Referred to PCP Impression Primary Impression: Vomiting Additional Impression: Periumbilical abdominal pain Scribe Attestation The scribe's documentation has been prepared under my direction and personally reviewed by me in its entirety. I confirm that the note above accurately reflects all work, treatment, procedures, and medical decision making performed by me. Departure Information Dispostion Home / Self-Care Referrals Donte Szymanski D.O. (PCP) Forms HOME CARE DOCUMENTATION FORM, IMPORTANT VISIT INFORMATION Patient Instructions My [facility], Vomiting - [facility] Additional Instructions Rest. Take a bland diet and plenty of clear liquids Follow up with the PCP if symptoms persist. Return to the ER if symptoms worsen. Problem Qualifiers Primary Impression: Vomiting Vomiting type: unspecified Vomiting Intractability: non-intractable Nausea presence: with nausea Qualified Codes: R11.2 - Nausea with vomiting, unspecified
[2017-08-29 04:04] LABS: BASO % 0.1 %; BASO ABS # 0.01 K/uL (0-0.2); HEMATOCRIT 41.1 % (42-52); HEMOGLOBIN 13.7 g/dL (14.0-18.0); IG# 0.04 K/uL (0.00-0.02); LYMPH % 10.7 %; LYMPH ABS # 1.01 K/uL (1.2-3.4); MEAN CORPUSCULAR HEMOGLOBIN 27.7 pg (25-34); MEAN CORPUSCULAR HGB CONC 33.3 g/dl (32-36); MEAN PLATELET VOLUME 9.2 fL (7.4-10.4); MONO ABS # 0.56 K/uL (0.11-0.59); NEUT % 82.8 %; NEUT ABS # 7.79 K/uL (1.4-6.5); PLATELET COUNT 322 K/uL (130-400); RED CELL DISTRIBUTION WIDTH CV 14.6 % (11.5-14.5); RED CELL DISTRIBUTION WIDTH SD 43.8 fL (36.4-46.3); WHITE BLOOD COUNT 9.41 K/uL (4.8-10.8)
[2017-08-29 04:21] LABS: BLOOD UREA NITROGEN 24 mg/dl (7-18); CREATININE 1.27 mg/dl (0.60-1.40); GLUCOSE 185 mg/dl (70-99)
[2017-08-29 04:22] LABS: ALBUMIN 3.3 gm/dl (3.4-5.0); ALT/SGPT 14 U/L (12-78); AST/SGOT 13 U/L (15-37); CARBON DIOXIDE 23 mmol/L (21-32); LIPASE 99 U/L (73-393); POTASSIUM 4.2 mmol/L (3.5-5.1); SODIUM 132 mmol/L (136-145)
[2017-08-29 04:27] LABS: ALKALINE PHOSPHATASE 67 U/L (45-117); TOTAL PROTEIN 8.9 gm/dl (6.4-8.2)
[2017-08-29] MEDS ORDERED: OPTIRAY 320 IV PRN (05:00)
[2017-08-29 06:30] VITALS: Ht 182.9 cm; Wt 133.3 kg
--- NOTE | 2017-08-29 06:58 | DIAGNOSTIC IMAGING REPORT ---
ABDOMEN 2VIEW W/PA CHEST RTN CLINICAL HISTORY: Abdominal pain, nausea, vomiting COMPARISON STUDY: CT scan dated 05/09/2017 FINDINGS: The erect chest reveals no free air. There is no focal pulmonary consolidation. Erect and supine views the abdomen reveal surgical clips within the right upper quadrant consistent with a prior cholecystectomy. There is a Baires catheter present. There are no transition zones indicate bowel obstruction. IMPRESSION: No evidence of bowel obstruction. No evidence of free air. Electronically signed by: Esau Rosa M.D. 08/29/2017 6:57 AM Dictated Date/Time: 08/29/2017 6:56 AM
[2017-08-29 07:53] VITALS: BP 133/68; PULSE 88; TEMP 36.8; O2SAT 95
--- NOTE | 2017-08-29 08:34 | DIAGNOSTIC IMAGING REPORT ---
ABD/PELVIS IV CONTRAST ONLY CLINICAL HISTORY: 76 years-old Male presenting with eval for sbo, abdominal pain, nausea and vomiting. TECHNIQUE: Multidetector CT of the abdomen and pelvis was performed after the administration of intravenous contrast. IV contrast: 94 mL of Optiray 320. A dose lowering technique was used consistent with the principles of ALARA (as low as reasonably achievable). COMPARISON: CT from 05/09/2017. CT DOSE (mGy.cm): The estimated cumulative dose is 2474.33 mGy.cm. FINDINGS: Hub Borer topogram: Right total hip arthroplasty. Baires catheter in place. Cholecystectomy clips. Lung bases: Minimal basilar opacities, likely atelectasis. Mild mosaic attenuation at the lung bases could suggest small airways disease. Multichamber enlargement of the heart. Coronary artery calcification. Aortic valve calcification. No pericardial or pleural effusion. Liver: Nodular contour of the liver suggesting cirrhosis. No focal lesion. Patent hepatic vasculature. Biliary: Mild biliary ductal prominence likely a reservoir effect in the post cholecystectomy state. Limited pneumobilia in the left hepatic lobe, which is of uncertain etiology and clinical significance. Gallbladder surgically absent. Pancreas: Normal. Spleen: Normal. Adrenal glands: Normal. Kidneys and ureters: Multiple well-defined hypodensities in the kidneys, many too small to characterize but likely simple cysts. No nephrolithiasis. No hydronephrosis. Ureters normal. Bladder: Decompressed with a Baires catheter. The bladder may be thick walled, possibly due to chronic outlet obstruction. Pelvic organs: The patient may be post external beam radiation treatment of the prostate or post prostatectomy as the expected region of the prostate appears atrophic. Bowel: Diverticulosis of the proximal sigmoid colon. Portion of the bowel is excluded from the [id number] secondary to the patient's body habitus. Fluid in the colon suggests a diarrheal state. No significant colonic wall thickening or pericolonic inflammatory change. The appendix is normal. No bowel obstruction. No gross evidence of small bowel wall thickening. Peritoneal cavity: No free fluid or intraperitoneal gas. Lymph nodes: Borderline enlarged lymph nodes in the portacaval region measuring up to 12 mm in the short axis. Prominent left common iliac lymph node measuring 9 mm in the short axis. Vasculature: Atherosclerosis of the normal caliber abdominal aorta. IVC patent. Abdominal wall: Small fat-containing umbilical hernia. Additional fat-containing ventral hernia in the supraumbilical region. Prominent pannus. Musculoskeletal: Total right hip arthroplasty. Degenerative changes of the left hip joint. Degenerative changes of the spine. IMPRESSION: 1. No evidence of bowel obstruction. 2. Fluid in the colon suggests a diarrheal state. No colonic wall thickening or pericolonic inflammatory change to suggest severe colitis. 3. Borderline enlarged retroperitoneal lymph nodes possibly reactive. 4. Diverticulosis without evidence of diverticulitis. 5. Findings suggest cirrhosis. Electronically signed by: Ang Esquivel M.D. 08/29/2017 8:33 AM Dictated Date/Time: 08/29/2017 6:55 AM
--- NOTE | 2017-08-31 14:25 | Pharmacy Progress Note ---
ED Pharmacist Culture FollowUp Date of Service: Aug 31, 2017. Patient seen in ER on 08/29 for c/o abd pain, NV and foul odor to urine Patient had Baires cath placed ~6 weeks ago for urinary retention, last replaced by urology ~2 wks ago Baires was draining well No leukocytosis noted, afebrile on date of visit UA: turbid, + LE, > 30WBC, 4+ bacteria, 20-30 epis Urine cx drawn from cath that pt presented with: > 100,000 CFU/mL e coli (martinez sensitive) Pt was discharged w/o ABX pending results of urine cx I contacted pt today via phone, he stated his abd pain, NV had resolved and that his urine has begun to clear on it's own and he is not noticing a foul smell. Dr Jerez recommends pt taking a 10 day course of Macrobid (chosen secondary to h /o c diff) 100mg BID. I attempted to contact the patient w/ both ph #'s provided. I did leave a message on [phone] asking he return my call.
== END 2017-08-29 07:45 | disposition home or self-care (01) ==
LOC: C.EDB 03:25
DX: R11.10 Vomiting, unspecified (principal); R10.33 Periumbilical pain; I48.2 Chronic atrial fibrillation; I11.0 Hypertensive heart disease with heart failure; K22.70 Barrett's esophagus without dysplasia; I50.32 Chronic diastolic (congestive) heart failure; E11.9 Type 2 diabetes mellitus without complications; E78.5 Hyperlipidemia, unspecified; N40.0 Benign prostatic hyperplasia without lower urinary tract symptoms; K25.4 Chronic or unspecified gastric ulcer with hemorrhage; Z86.19 Personal history of other infectious and parasitic diseases; K57.30 Diverticulosis of large intestine without perforation or abscess without bleeding; E66.01 Morbid (severe) obesity due to excess calories; Z68.41 Body mass index [BMI] 40.0-44.9, adult; Z96.0 Presence of urogenital implants; Z90.49 Acquired absence of other specified parts of digestive tract; Z96.641 Presence of right artificial hip joint; Z87.891 Personal history of nicotine dependence; Z79.82 Long term (current) use of aspirin; Z79.84 Long term (current) use of oral hypoglycemic drugs; Z83.3 Family history of diabetes mellitus; Z88.0 Allergy status to penicillin; Z88.1 Allergy status to other antibiotic agents

== ENCOUNTER 2018-06-16 03:00 | Inpatient (IN) ==
[2018-06-16] MEDS ORDERED: METOPROLOL TARTRATE 1 MG/ML VIAL IV STA ×4 (03:12→17:52)
--- NOTE | 2018-06-16 03:17 | Emergency Department Note ---
ED Provider Note Name: Joseph Deleon Age: 77M Arrives Via: EMS Informant: Pt, Family CC: Weakness HPI: 77 male arrives for evaluation of weakness. Patient sitting on toilet this evening and too weak to get up. After 5 hours called 911. Notes feeling weak and tired. Denies other symptoms. States no medications this evening due to being on toilet. Weakness gradually worsening last few days. no falls nor injuries. Denies headache, neck pain, fevers, chills, cp, sob, abdominal pain, nor other symptoms. This is unusual for him to be so weak. nothing makes better nor worse. No medications prior to arrival. ROS: See above HPI for pertinent positives & negatives. A total of 10 systems reviewed and were otherwise negative. Past Medical History: Chronic wound scrotum, Barretts, ICH, Gastric Ulcer, JUAN MANUEL , Obesity, HTN, Anemia, Diabetes, CHF, Afib, Past Surgical History: Cholecystectomy, Tonsillectomy/Adenoidectomy, Hip Replacement, Vascular Malformation surgery hemorrhoids, Penial cut down Family History: HTN, DMII, CAD Social History: Lives with Home Medications: ASA, Digoxin, Finasteride, lasix, hydrocodon, losartan, metformin, metoprolol, pantoprazole Allergies flagyl, amoxicillin Physical: Vitals: 160/100, P 140, T 36.7, O2 95% 2L NC, R 16 Exam: GENERAL: Patient is ill appearing and in moderate distress. Deconditioned EYES: No scleral icterus, unremarkable pupils. ENT: Mucous membranes moist, no nasal congestion. NECK: No masses appreciated, no meningismus, trachea is midline. RESPIRATORY: Mild dyspnea. Clear to auscultation and equal bilaterally. No wheeze, no rhonchi. CARDIOVASCULAR: Tachy, irregular. No murmurs, rubs, gallops appreciated. GASTROINTESTINAL: Severe TTP over lower abdomen. Bowel sounds positive. No masses appreciated. : Inverted penis with patiño entering hole at bottom of panus and right sided testicles. Exudate flowing around patiño. Large vascular malformations and skin ulcerations of perineal region BACK: No midline tenderness, no CVA tenderness EXTREMITIES: PVD. Weakness of legs. Moves all extremities. no cyanosis, no edema. NEUROLOGIC: Alert and oriented, no acute motor or sensory deficits, no focal weakness, cranial nerves grossly intact. SKIN: Multiple skin tears arms of various ages, worse left forearm. No rash, no jaundice, no diaphoresis. ED Course: Prior Medical Record, Triage/Nursing Notes, Medications, Allergies reviewed by Me Vital Signs: reviewed and remarkable for HTN, Tachy Labs: Reviewed and remarkable for Leukocytosis, elevated lactate, worsening Cr Interventions: Saline Lock, Fentanyl 75mcg IV & 150mcg IV, Daptomycin 600mg IV, Imipenem/Cilastatin IV, ZOfran 4mg IV, Lopressor 5mg IV x 2 Imaging: X ray results are stated below per my interpretation: Chest: 1 view: No infiltrate, no effusion, normal cardiac border. EKG: Per My interpretation: Afib RVR without ischemia. 137 bpm. qtc 494. Similar with increased rate compared to previous Consults: Dr Zhang advised transfer to tertiary care center. Discussed with Dr Brown [facility] who advised Dr Zhang come evaluate patient prior to transfer given acuity and prolonged transfer times. Dr Zhang came in and placed new patiño in patient. Reassessments/Times: Many times throughout ED stay, eventually HR improving along with pain Blood pressure: Elevated - Dameron to be Situation Disposition: Transfer to tertiary care [facility]. Differentials: Sepsis, Rhabdo, Intracranial Hemorrhage, Bowel injury, urinary infection, gangrene, renal failure, urinary retention amongst other pathologies. Medical Decision Makin yr old unhealthy male with previous urologic issues arrives following a fall 24 hours ago that he laid on ground for 5 hours, then progressive lower abdominal pain and weakness throughout the day. He has not had his meds in over 2 days. He is afib RVR on arrival, ill appearing, dehydrated appearing, with severe TTP over lower abdomen and found to have exudate draining from around a blocked patiño. IV obtained and labs collected and he was sent to CT for evaluation of head/abdomen. Labs returning with elevated WBC and thus added on cultures and lactate. Was givne IV lopressor x 2 to get hisLactate elevated and thus further hydration ordered along with broad spectrum abx. [facility] notes concern for bladder rupture and stranding throughout pelvis. No overt mention of free air/forneirs but given amount of exudate from around patiño I am quite concerned he is getting near this. Dr Zhang arrived and placed new patiño with exudative return. Reviewed with her and given difficulty with transport, vast improvement in patient status, and fact she was able to get patiño in, she feels it would be reasonable to keep him here for time being and see if he turns around. Dr Trotter of Hospitalist consulted and she admitted patient. I discussed case with Dr Ames of [facility] who is aware and will further manage patient as well. Impression: Sepsis Pelvic Infection Bladder Rupture Acute Urinary Retention Atrial Fibrillation with RVR Acute Renal Insufficiency Rhabdomyolysis Critical Care Time: I have personally spent greater than 120 minutes of critical care time in the direct management of this patient. Acute urinary retention with rhabdomyolysis requiring agressive hydration, afib RVR requiring multiple antiarrythmics, and sepsis requiring aggreesive management. This was a life/limb threatening event. This includes time spent evaluating patient, direct bedside care, chart review, placing orders, interpretation of diagnostic studies, discussion with consultants, patient, and family members, as well as other required patient management activities. This 120 minutes is in excess of all separately billable procedures. Regan Kilgore MD Impression & Plan Sepsis, Pelvic infection, Acute urinary retention, Atrial fibrillation with RVR , Acute renal insufficiency, Rhabdomyolysis Past Med/Surg History Medical History Sepsis (Chronic) Acquired buried penis (Chronic) BPH without urinary obstruction (Chronic) Benign hypertension (Chronic) Chronic diastolic CHF (congestive heart failure) (Chronic) DM (diabetes mellitus), type 2, uncontrolled w/ophthalmic complication (Chronic) Diverticulosis of colon (without mention of hemorrhage) (Chronic) Exertional dyspnea (Chronic) Gastric ulcer with hemorrhage but without obstruction (Chronic) H/O Clostridium difficile infection (Chronic) Hemangioma of skin (Chronic) History of chronic atrial fibrillation (Chronic) Morbid obesity (Chronic) JUAN MANUEL (obstructive sleep apnea) (Chronic) Symptomatic anemia (Chronic) Urinary retention (Chronic) Results & Data Vital Signs Vital Signs - 24 hr 06/16/18 03:07 06/16/18 03:35 06/16/18 04:15 Temperature 36.7 C Temperature Source Oral Pulse Rate 145 H 130 H Pulse Rate [Apical] 115 H Pulse Rhythm [Apical] Regular Pulse Strength [Apical] Normal Respiratory Rate 20 18 Respiratory Effort / Characteristics Non-Labored Spontaneous Respiratory Depth Normal Respiratory Pattern Regular Blood Pressure 154/97 H 154/97 H Blood Pressure [Right Arm] 150/91 H Blood Pressure Mean 116 Blood Pressure Mean [Right Arm] 110 Blood Pressure Position [Right Arm] Pulse Oximetry 93 94 Oxygen Delivery Method Room Air Room Air Oxygen Flow Rate 06/16/18 04:54 06/16/18 05:01 06/16/18 07:00 Temperature Temperature Source Pulse Rate Pulse Rate [Apical] 120 H 110 H 120 H Pulse Rhythm [Apical] Regular Regular Irregular Pulse Strength [Apical] Normal Respiratory Rate 18 16 16 Respiratory Effort / Characteristics Non-Labored Spontaneous Non-Labored Spontaneous Non-Labored Spontaneous Respiratory Depth Normal Normal Normal Respiratory Pattern Regular Regular Agonal Blood Pressure Blood Pressure [Right Arm] 164/101 H 147/73 H Blood Pressure Mean Blood Pressure Mean [Right Arm] 122 97 Blood Pressure Position [Right Arm] Pulse Oximetry 95 98 Oxygen Delivery Method Nasal Cannula Room Air Oxygen Flow Rate 2 06/16/18 07:43 Temperature Temperature Source Pulse Rate Pulse Rate [Apical] 116 H Pulse Rhythm [Apical] Regular Pulse Strength [Apical] Respiratory Rate 22 Respiratory Effort / Characteristics Respiratory Depth Respiratory Pattern Blood Pressure Blood Pressure [Right Arm] 141/99 H Blood Pressure Mean Blood Pressure Mean [Right Arm] 113 Blood Pressure Position [Right Arm] Lying Pulse Oximetry 95 Oxygen Delivery Method Nasal Cannula Oxygen Flow Rate 2 Laboratory Data Result diagrams: 06/16/18 03:12 06/16/18 03:12 Lab Results 06/16/18 06/16/18 06/16/18 Range/Units 03:12 03:12 03:12 WBC (4.8-10.8) K/uL RBC (4.7-6.1) M/uL Hgb (14.0-18.0) g/dL Hct (42-52) % MCV (80-100) fL MCH (25-34) pg MCHC (32-36) g/dL RDW Std Deviation (36.4-46.3) fL RDW Coeff of Shadi (11.5-14.5) % Plt Count (130-400) K/uL MPV (7.4-10.4) fL Immature Gran % (Auto) % Neut % (Auto) % Lymph % (Auto) % Will % (Auto) % Eos % (Auto) % Baso % (Auto) % Immature Gran # (Auto) (0.00-0.02) K/uL Neut # (Auto) (1.4-6.5) K/uL Lymph # (Auto) (1.2-3.4) K/uL Will # (Auto) (0.11-0.59) K/uL Eos # (Auto) (0-0.5) K/uL Baso # (Auto) (0-0.2) K/uL PT 11.4 (9.0-12.0) Seconds INR 1.1 (0.9-1.1) APTT 27.2 (21.0-31.0) Seconds PTT Ratio 1.0 Sodium 133 L (136-145) mmol/L Potassium 4.2 (3.5-5.1) mmol/L Chloride 99 (98-107) mmol/L Carbon Dioxide 23 (21-32) mmol/L Anion Gap 11.0 (3-11) BUN 28 H (7-18) mg/dl Creatinine 1.74 H (0.6-1.4) mg/dl Est Cr Clr Drug Dosing 50.8 ml/min Est GFR ( Amer) 42.9 Est GFR (Non-Af Amer) 37.0 BUN/Creatinine Ratio 16.2 (10-20) Glucose 273 H (70-99) mg/dl POC Lactic Acid Indra (0.90-1.70) mmol/L Calcium 9.1 (8.5-10.1) mg/dl Magnesium 2.1 (1.8-2.4) mg/dl Total Creatine Kinase 4281 H (39-308) U/L Troponin I 0.091 H* (0-0.045) ng/ml Urine Color Urine Appearance (Clear) Urine pH (4.5-7.5) Ur Specific [place] (1.000-1.030) Urine Protein (Negative) Urine Glucose (UA) (Negative) Urine Ketones (Negative) Urine Blood (Negative) Urine Nitrite (Negative) Urine Bilirubin (Negative) Urine Urobilinogen (Negative) Ur Leukocyte Esterase (Negative) Urine WBC (Auto) (0-5) /hpf Urine RBC (Auto) (0-4) /hpf U Hyaline Cast (Auto) (0-5) /lpf U Epithel Cells (Auto) (0-5) /lpf Urine Bacteria (Auto) (Negative) Triple Phos Crystals (None Prsent) Digoxin 0.5 L (0.8-2.0) ng/ml 12/15/18 12/15/18 12/15/18 Range/Units 03:12 05:10 07:10 WBC 23.14 H (4.8-10.8) K/uL RBC 5.72 (4.7-6.1) M/uL Hgb 16.7 (14.0-18.0) g/dL Hct 49.3 (42-52) % MCV 86.2 (80-100) fL MCH 29.2 (25-34) pg MCHC 33.9 (32-36) g/dL RDW Std Deviation 49.8 H (36.4-46.3) fL RDW Coeff of Shadi 16.0 H (11.5-14.5) % Plt Count 232 (130-400) K/uL MPV 10.0 (7.4-10.4) fL Immature Gran % (Auto) 0.3 % Neut % (Auto) 92.0 % Lymph % (Auto) 2.9 % Will % (Auto) 4.8 % Eos % (Auto) 0.0 % Baso % (Auto) 0.0 % Immature Gran # (Auto) 0.08 H (0.00-0.02) K/uL Neut # (Auto) 21.27 H (1.4-6.5) K/uL Lymph # (Auto) 0.68 L (1.2-3.4) K/uL Will # (Auto) 1.10 H (0.11-0.59) K/uL Eos # (Auto) 0.00 (0-0.5) K/uL Baso # (Auto) 0.01 (0-0.2) K/uL PT (9.0-12.0) Seconds INR (0.9-1.1) APTT (21.0-31.0) Seconds PTT Ratio Sodium (136-145) mmol/L Potassium (3.5-5.1) mmol/L Chloride (98-107) mmol/L Carbon Dioxide (21-32) mmol/L Anion Gap (3-11) BUN (7-18) mg/dl Creatinine (0.6-1.4) mg/dl Est Cr Clr Drug Dosing ml/min Est GFR ( Amer) Est GFR (Non-Af Amer) BUN/Creatinine Ratio (10-20) Glucose (70-99) mg/dl POC Lactic Acid Indra 2.75 H (0.90-1.70) mmol/L Calcium (8.5-10.1) mg/dl Magnesium (1.8-2.4) mg/dl Total Creatine Kinase (39-308) U/L Troponin I (0-0.045) ng/ml Urine Color Rosie Urine Appearance Turbid H (Clear) Urine pH >= 9.0 H (4.5-7.5) Ur Specific [place] 1.020 (1.000-1.030) Urine Protein 4+ H (Negative) Urine Glucose (UA) Negative (Negative) Urine Ketones Trace H (Negative) Urine Blood 3+ H (Negative) Urine Nitrite Positive H (Negative) Urine Bilirubin Negative (Negative) Urine Urobilinogen Negative (Negative) Ur Leukocyte Esterase 3+ H (Negative) Urine WBC (Auto) >30 H (0-5) /hpf Urine RBC (Auto) >30 H (0-4) /hpf U Hyaline Cast (Auto) 0 (0-5) /lpf U Epithel Cells (Auto) 5-10 H (0-5) /lpf Urine Bacteria (Auto) 4+ H (Negative) Triple Phos Crystals Present H (None Prsent) Digoxin (0.8-2.0) ng/ml Administered Medications Sodium Chloride (Nss 1000ml) 1,000 mls @ 125 mls/hr IV .Q8H MARIYA Stop: 07/16/18 06:14 Last Admin: 06/16/18 07:32 Dose: 125 mls/hr Discontinued Medications Fentanyl Citrate (Fentanyl Citrate) 75 mcg IV NOW STA Stop: 06/16/18 03:24 Last Admin: 06/16/18 03:34 Dose: 75 mcg Fentanyl Citrate (Fentanyl Citrate) 150 mcg IV NOW STA Stop: 06/16/18 04:33 Last Admin: 06/16/18 04:53 Dose: 150 mcg Hydromorphone HCl (Dilaudid) 1 mg IV NOW STA Stop: 06/16/18 07:16 Last Admin: 06/16/18 07:32 Dose: 1 mg Imipenem/Cilastatin Sodium 500 (mg/ Dextrose) 110 mls @ 110 mls/hr IV NOW STA Stop: 06/16/18 05:30 Last Infusion: 06/16/18 05:30 Dose: 0 mls/hr Admin: 06/16/18 05:03 Dose: 110 mls/hr Daptomycin 600 mg/ Syringe 12 mls @ 6 mls/min IV NOW STA; Protocol Stop: 06/16/18 04:34 Last Admin: 06/16/18 05:02 Dose: 6 mls/min Sodium Chloride (Nss 1000ml) 1,000 mls @ 999 mls/hr IV .Q1H1M ONE Stop: 06/16/18 06:37 Last Admin: 06/16/18 06:00 Dose: 999 mls/hr Metoprolol Tartrate (Lopressor) 5 mg IV NOW STA Stop: 06/16/18 03:13 Last Admin: 06/16/18 03:35 Dose: 5 mg Metoprolol Tartrate (Lopressor) 5 mg IV NOW STA Stop: 06/16/18 04:28 Last Admin: 06/16/18 04:54 Dose: 5 mg Ondansetron HCl (Zofran) 4 mg IV NOW STA Stop: 06/16/18 05:43 Last Admin: 06/16/18 06:15 Dose: 4 mg Ondansetron HCl (Zofran) 4 mg IV NOW STA Stop: 06/16/18 07:36 Last Admin: 06/16/18 07:40 Dose: 4 mg Discharge Plan Visit Data Chief Complaint: Abdominal Pain ED Provider: Regan Kilgore Discharge Problem: Sepsis, Pelvic infection, Acute urinary retention, Atrial fibrillation with RVR , Acute renal insufficiency, Rhabdomyolysis Forms Stand Alone Forms: Call Back Authorization, [facility] Prescriptions Prescriptions: No Action aspirin 81 mg Tablet,Delayed Release (Dr/Ec) 81 mg PO DAILY RF: 0 digoxin 125 mcg tablet 125 mcg PO DAILY RF: 0 losartan 50 mg tablet 50 mg PO DAILY RF: 0 metformin 500 mg Tablet 500 mg PO TIDM RF: 0 hydrocodone-acetaminophen 5-325 mg tablet 1 tab PO BID PRN (Reason: Pain, Moderate) RF: 0 metoprolol succinate 200 mg tablet extended release 24 hr 200 mg PO DAILY RF: 0 tramadol 50 mg tablet 50 mg PO Q6 PRN (Reason: Pain) RF: 0 pantoprazole 40 mg Tablet,Delayed Release (Dr/Ec) 40 mg PO BID RF: 0 ferrous sulfate 325 mg (65 mg iron) Tablet 325 mg PO BID RF: 0 furosemide 20 mg Tablet 20 mg PO DAILY RF: 0 Lactobacillus acidophilus [Acidophilus] Capsule 10,000 mmu cells PO DAILY RF: 0 finasteride 5 mg tablet 5 mg PO DAILY RF: 0 potassium chloride 10 mEq tablet,ER particles/crystals 10 meq PO DAILY RF: 0
[2018-06-16] MEDS ORDERED: fentaNYL citrate 100 MCG/2 ML VIAL IV STA ×2 (03:23→04:32)
[2018-06-16 03:30] LABS: Hematocrit (blood only) 49.3 % (42-52); Hemoglobin 16.7 g/dL (14.0-18.0); Mean Corpuscular Hgb Conc 33.9 g/dL (32-36); Mean Corpuscular Volume 86.2 fL (80-100); Platelet Count 232 K/uL (130-400); RDW Standard Deviation 49.8 fL (36.4-46.3); Red Blood Count 5.72 M/uL (4.7-6.1); White Blood Count 23.14 K/uL (4.8-10.8)
[2018-06-16 03:41] LABS: INR 1.1 (0.9-1.1); Partial Thromboplastin Time 27.2 Seconds (21.0-31.0); Prothrombin Time 11.4 Seconds (9.0-12.0)
[2018-06-16 03:48] LABS: BUN Creatinine Ratio 16.2 (10-20); Calcium 9.1 mg/dl (8.5-10.1); Creatinine Clr Calc Pharmacy 50.8 ml/min; Est GFR (African American) 42.9; Magnesium 2.1 mg/dl (1.8-2.4); Potassium 4.2 mmol/L (3.5-5.1)
[2018-06-16 03:58] LABS: Basophils # (auto) 0.01 K/uL (0-0.2); Immature Granulocytes # (auto) 0.08 K/uL (0.00-0.02); Immature Granulocytes % (auto) 0.3 %; Lymphocytes # (auto) 0.68 K/uL (1.2-3.4); Lymphocytes % (auto) 2.9 %; Monocytes % (auto) 4.8 %; Neutrophils # (auto) 21.27 K/uL (1.4-6.5)
[2018-06-16 04:12] LABS: Troponin I 0.091 ng/ml (0-0.045)
[2018-06-16] MEDS ORDERED: IMIPENEM/CILASTATIN SODIUM 500 MG in DEXTROSE 5% 100 ML IV STA (04:31)
[2018-06-16] MEDS ORDERED: DAPTOmycin 600 MG in SYRINGE 0 ML IV STA (04:33)
[2018-06-16] MEDS ORDERED: SODIUM CHLORIDE 0.9% 1000ML 1,000 ML IV ONE (05:37)
[2018-06-16] MEDS ORDERED: ONDANSETRON INJ 2 MG/ML 2 ML VIAL IV STA ×2 (05:42→07:35)
--- NOTE | 2018-06-16 06:07 | XRay Report ---
XR chest 1V portable HISTORY: 77 years-old Male Weakness acute weakness COMPARISON: Acute abdominal series radiographs 08/29/2017 TECHNIQUE: Portable AP view the chest FINDINGS: Cardiac silhouette is mildly enlarged, unchanged. No pneumothorax, large pleural effusion, overt pulm onary edema or lobar airspace consolidation. Mild blunting of the left costophrenic angle. Degenerati ve changes of the shoulders and spine. IMPRESSION: 1. Blunting of the left costophrenic angle suggests atelectasis or trace effusion. 2. Cardiomegaly without overt pulmonary edema. The above report was generated using voice recognition software. It may contain grammatical, syntax o r spelling errors. Electronically signed by: Brandin Kruse M.D. 06/16/2018 6:05 AM
[2018-06-16] MEDS ORDERED: SODIUM CHLORIDE 0.9% 1000ML 1,000 ML IV SCH (06:15)
--- NOTE | 2018-06-16 06:47 | CT Scan Report ---
CT head/brain wo con CLINICAL HISTORY: 77 years-old Male with fall, head injury, h/o head bleed. Acute head injury status post fall TECHNIQUE: Multiple axial CT images of the head were obtained without contrast. A dose lowering tech nique was utilized adhering to the principles of ALARA. CT DOSE: 614.27 mGy.cm COMPARISON: CT head 04/29/2013. FINDINGS: No acute intracranial hemorrhage, midline shift, intracranial mass, hydrocephalus, territorial ischem ia or abnormal extra-axial collection. Mild atrophy with chronic microvascular ischemic changes, subt ly progressed from comparison. Cerebral vascular calcifications also noted. The calvarium is intact. The paranasal sinuses, mastoid air cells, and middle ear cavities are clear . Mild subcutaneous edema of the left parietal occipital scalp. IMPRESSION: 1. No acute intracranial abnormality or calvarial fracture. 2. Atrophy with chronic microvascular ischemic changes. 3. Mild subcutaneous edema of the left parietal occipital scalp, likely posttraumatic. The above report was generated using voice recognition software. It may contain grammatical, syntax o r spelling errors. Electronically signed by: Brandin Kruse M.D. 06/16/2018 6:46 AM
--- NOTE | 2018-06-16 07:06 | Urology Consultation ---
Date of Consultation June 16, 2018 Assessment & Plan (1) History of chronic atrial fibrillation: (2) Gastric ulcer with hemorrhage but without obstruction: (3) Chronic diastolic CHF (congestive heart failure): (4) DM (diabetes mellitus), type 2, uncontrolled w/ophthalmic complication: (5) Hemangioma of skin: (6) BPH without urinary obstruction: (7) Sepsis: I removed the 16 fr patiño and patient spontaneously voided about a cup of purulent urine. Catheter ws occluded. I cleansed buried penis area and palpated to identify glans. I guided in a 20 fr coude patiño which seemed to reach bladder. I inflated the balloon with 10mL of water and he drained about 300mL of cloudy urine with only a few particles of chunky sediment. Patient experienced significant improvement of the abdominal pain but remains very tender. He has received broad spectrum antibiotics. he has had some fluid bolus but needs to be balanced with concerns of heart failure. No crepitance at this time. No surgery needed at this time. Present on Admission?: Yes (8) Morbid obesity: History of Present Illness Reason for Consultation: urosepsis Requesting Physician: Dr Barrera History of Present Illness Patient presents to ER with 2 day history of flank pain. he had a fall night into Monday. At about 3am he fell off the toilet and was wedged between the toilet and the tub for 5 hours until his nephew arrived. He has a chronic patiño due to acquired buried penis from morbid obesity. He has a 16 fr patiño which is not draining well and attempts at irrigation have failed. CT scan shows extensive soft tissue inflammation and free fluid in the abdomen suspicious for bladder rupture. He has lab evidence of rhabdomyolysis and is in afib with RVR. He has complaints of severe lower abdomen tenderness. Allergies Allergy/AdvReac Type Severity Reaction Status Date / Time metronidazole Allergy Severe see below Verified 06/16/18 03:51 amoxicillin Allergy Intermediate rash Verified 06/16/18 03:51 Home Medications Home Medications Medication Instructions Recorded Confirmed Type Lactobacillus acidophilus 10,000 mmu cells PO DAILY 06/16/18 06/16/18 History [Acidophilus] aspirin 81 mg PO DAILY 06/16/18 06/16/18 History digoxin 125 mcg PO DAILY 06/16/18 06/16/18 History ferrous sulfate 325 mg PO BID 06/16/18 06/16/18 History finasteride 5 mg PO DAILY 06/16/18 06/16/18 History furosemide 20 mg PO DAILY 06/16/18 06/16/18 History hydrocodone-acetaminophen 1 tab PO BID PRN 06/16/18 06/16/18 History losartan 50 mg PO DAILY 06/16/18 06/16/18 History metformin 500 mg PO TIDM 06/16/18 06/16/18 History metoprolol succinate 200 mg PO DAILY 06/16/18 06/16/18 History pantoprazole 40 mg PO BID 06/16/18 06/16/18 History potassium chloride 10 meq PO DAILY 06/16/18 06/16/18 History tramadol 50 mg PO Q6 PRN 06/16/18 06/16/18 History Patient History Medical History Sepsis (Chronic) Acquired buried penis (Chronic) BPH without urinary obstruction (Chronic) Benign hypertension (Chronic) Chronic diastolic CHF (congestive heart failure) (Chronic) DM (diabetes mellitus), type 2, uncontrolled w/ophthalmic complication (Chronic) Diverticulosis of colon (without mention of hemorrhage) (Chronic) Exertional dyspnea (Chronic) Gastric ulcer with hemorrhage but without obstruction (Chronic) H/O Clostridium difficile infection (Chronic) Hemangioma of skin (Chronic) History of chronic atrial fibrillation (Chronic) Morbid obesity (Chronic) JUAN MANUEL (obstructive sleep apnea) (Chronic) Symptomatic anemia (Chronic) Urinary retention (Chronic) Review of Systems Soc- no tobacco, no alcohol, retired Fam Hx- not contributory for his age ROS- + fevers, no chills, + weakness, - constipation, normal appetite, + headache, no nausea or emesis, + skin breakdown arms and perineum, + chronic arthritis , no chest pain, no palpitations. Physical Exam 2 Vital Signs (Past 24 Hours): Last Vital Signs Temp 36.7 C 06/16/18 03:07 Pulse 110 H 06/16/18 05:01 Resp 16 06/16/18 05:01 BP 164/101 H 06/16/18 04:54 Pulse Ox 95 06/16/18 05:01 Constitutional: + ill appearing and + obese he is awake alert, speaks in fluid sentences answers questions appropriately, oriented x 3 Eyes: PERRL, conjunctivae normal, anicteric sclerae Respiratory: normal respiratory effort, lungs clear to auscultation Gastrointestinal (Abdomen): Inspection/Auscultation: + significant pannus Percussion/Palpation: + abdomen tender, + guarding and abdomen soft Genitourinary: large festering posterior scrotal AVMs, pus draining from urethra around his 16 fr patiño. Buried penis, glans not visible. testes unremarkable, skin of right suprapubic area erythematous 4inch x 2 inch
[2018-06-16] MEDS ORDERED: HYDROmorphone INJ 1 MG/ML SYRINGE IV STA (07:15)
[2018-06-16 07:28] LABS: Appearance Urine Turbid (Clear); Bacteria Urine Automated 4+ (Negative); Bilirubin Urine Negative (Negative); Glucose Urine UA Negative (Negative); Ketones Urine Trace (Negative); Leukocyte Esterase Urine 3+ (Negative); Nitrite Urine Positive (Negative); Urobilinogen Urine Negative (Negative); WBC Urine Automated >30 /hpf (0-5); pH Urine >= 9.0 (4.5-7.5)
[2018-06-16 07:50] LABS: Color Urine Amber; Protein Urine 4+ (Negative)
[2018-06-16 07:53] LABS: Cast Urine Automated 0 /lpf (0-5); Triple Phosphate Crystal Urine Present (None Prsent)
--- NOTE | 2018-06-16 08:47 | CT Scan Report ---
ABDOMEN AND PELVIS CT WITHOUT CONTRAST CT DOSE: 2624.66 mGy.cm HISTORY: Acute lower abdominal pain with penile drainage lower abdo pain TECHNIQUE: Multiaxial CT images of the abdomen and pelvis were performed without contrast. A dose lo wering technique was utilized adhering to the principles of ALARA. COMPARISON STUDY: CT abdomen and pelvis 08/29/2017. FINDINGS: Mild subsegmental bibasilar atelectasis. 4 mm pleural-based solid nodule of the left lower lobe is un changed. No pneumatosis or pneumoperitoneum. Beam hardening artifact from positioning of the patient' s upper extremities. Imaged inferior cardiac chambers are unremarkable with coronary arterial and tamra ral annular calcifications noted. Prior cholecystectomy. Marginal nodularity of the liver suggests cirrhosis. No focal hepatic mass les ions identified on this noncontrast enhanced study. Spleen and adrenal glands are unremarkable. Mild generalized pancreatic atrophy. Cortical lobulations noted about the bilateral kidneys. Additionally, hypodense bilateral renal lesio ns are again seen suggesting probable cysts measuring up to 3.2 cm within the inferior pole right kid gino. 2 mm nonobstructing calculus of the superior pole left kidney. No ureteral calculi or obstructiv e uropathy. Ureters are unremarkable. Circumferential wall thickening of the bladder with perivesicul ar stranding and bladder dome diverticulum measuring up to 3.4 x 4.5 cm. A Baires catheter is noted in the urinary bladder lumen. Coarse calcifications noted about the prostate. Extensive calcification throughout the abdominal aorta without aneurysm. No adenopathy. No small ana l obstruction. 2.1 cm ovoid fatty attenuating structure adjacent to the sigmoid colon suggests an are a of age-indeterminate epiploic appendagitis (image 440 series 3). No significant surrounding inflamm atory stranding. Colonic diverticulosis without acute diverticulitis. Portions of the descending colo n are outside the [id number]. Terminal ileum and appendix appear normal. Mild diastases recti. Nod ularity and skin thickening noted about the posterior scrotum with multiple subcutaneous nodules seen measuring up to approximate 1.5 cm. Bones appear to be intact. Multilevel degenerative changes noted about the spine. Right hip arthroplasty with streak artifact limits evaluation of the pelvic structu res. Indeterminate peripherally calcified ovoid lobular structure about the left lower quadrant measu res 2.1 x 1.3 cm image 367 series 3, unchanged. IMPRESSION: 1. Wall thickening of the urinary bladder with extensive perivesicular stranding suggests acute cysti tis. Correlate with urinalysis. There is an associated diverticulum noted about the urinary bladder d ome. 2. Colonic diverticulosis without acute diverticulitis. 3. Suggested cirrhotic liver disease. 4. No bowel obstruction. 5. Nodular skin thickening of the perineum and posterior left scrotum with multiple indeterminate sof t tissue nodules of the subcutaneous inferior gluteal distributions. 6. Additional findings as above. Electronically signed by: Brandin Kruse M.D. 06/16/2018 8:45 AM
[2018-06-16 09:45] LABS: Creatine Kinase MB 11.4 ng/ml (0.5-3.6)
[2018-06-16] MEDS ORDERED: VANCOMYCIN CONSULT ACTIVE PRN ×2 (10:10→10:21)
[2018-06-16] MEDS ORDERED: DEXTROSE 50% 50 ML SYRINGE IV PRN (10:14)
[2018-06-16] MEDS ORDERED: GLUCOSE 10 TABS/TUBE PO PRN (10:14)
[2018-06-16] MEDS ORDERED: ICU PROTOCOL FOR HYPERGLYCEMIA PRN (10:14)
[2018-06-16] MEDS ORDERED: GLUCAGON FOR INJ 1 MG VIAL SQ PRN (10:14)
[2018-06-16] MEDS ORDERED: NORMOSOL-R 1,000 ML IV SCH (10:14)
[2018-06-16] MEDS ORDERED: LEVALBUTEROL HCL 1.25 MG/3 ML NEB INH PRN (10:14)
[2018-06-16] MEDS ORDERED: GLUCOSE 40% GEL 15 GM TUBE PO PRN (10:14)
[2018-06-16] MEDS ORDERED: CARBOHYDRATES FOR HYPOGLYCEMIA PO PRN (10:14)
[2018-06-16] MEDS ORDERED: PHARMACY GLYCEMIC MGMT CONSULT PRN (10:39)
--- NOTE | 2018-06-16 10:56 | Critical Care Consultation ---
Date of Consultation June 16, 2018 Assessment & Plan (1) Admitted to intensive care unit: 77 yo male patient who is supermorbidly obese. with BPH and chronic indwelling patiño catheter admitted with urinary retention UTI and severe sepsis on top of decubiti ulcers. Patiño changed and antibiotics ordered. Neurologic Hydromorphone 0.5 mg IV Q4 for pain Respiratory there is no evidence of distress or fluid overload. Smoked x 10 years but stopped 40 years ago No history or resp illness Cardiovascular aspirin home dose metoprolol IV to control HR 200 mg metoprolol succinate daily losartan 50 mg daily IV F at 100 ml/hr and bolus with 500 ml to improve UO Maintain MAP >65 mmHg GI diet as tolerated zofran PRN for nausea pantoprazole home dose Renal maintain IVF to achieve UO of >0.5 ml/Kg BW-hr FU and replete lytes ID cefipime and vancomycin pharmacy consulted for vanc FU blood andurine cultures DVT prophyalxis with heaprin SC needs patiño at this point and only has peripheral IVs Full code total critical care time 60 minutes. Present on Admission?: Yes (2) Sepsis: Present on Admission?: Yes (3) Acute urinary retention: Present on Admission?: Yes (4) Atrial fibrillation with RVR: Present on Admission?: Yes (5) Acute renal insufficiency: Present on Admission?: Yes (6) Rhabdomyolysis: Present on Admission?: Yes (7) Pressure ulcer, stage II, skin breakdown: Present on Admission?: Yes History of Present Illness Reason for Consultation: UTI with severe sepsis and A fib with RVR Requesting Physician: Tegan Trotter MD Attending Physician: Kanwal Trotter MD History of Present Illness This is a 77 yo pleasant gentleman who is reported to have history of Chronic wound scrotum, Barretts esophagus, ICH, Gastric Ulcer, JUAN MANUEL, morbid Obesity, HTN , Anemia, Diabetes, BPH, CHF, and Afib. Due to body habitus he had had a tumultuous history of inability to void freely and had to havechronic indwelling patiño catheter with recurrent UTI with recent growth of pansensitive E coli, proteus mirabilis, and possible enterococcus. The patient fell while going to the toilette the day before yesterday. He was trapped in between the commode and a wall between 3 am and 8 am apparently until his son arrived to help him. He felt weak and nausous at home for the next 24 hours and was weak and felt sore with increasingly worsening suprapubic pain. At 5 am today he could not bare it anymore. He came to the ED where he was found to be in A fib with RVR with slight elevation of his CK to 4281 then tp 2136. He had a CT of abdomen and pelvis without contast and there is thickening of the bladder wall with fat stranding but no free air in the belly or pelvis. An outside radiology read apparently suggested to the ED physician that there was a bladder rupture and urology Dr. Zhang was consulted, she came in and placed a 20 [place] patiño catheter. Patient drained purulent urine and felt immediately relieved. There were no peritoneal signs but WBC elevated to 23K. He was given antibiotics, multiple rounds of metoprlol were given to control Heart rate. At the bedside he only complained of nausea and said abdominal pain is relieved. He was in afib but had no chest pain and no complaints he has a mild elevation in troponin which is downtrending. I performed a bedside US of the IVC and there is near complete collapsibility. The heart seems to be pumping well (LV) with EF likley >40% on left parasternal views and apical 4 chanmbers. THe RV and RA are difficult to visulaize but there is no RV strain or dilatation. Patient admitted to MICU for further management Allergies Allergy/AdvReac Type Severity Reaction Status Date / Time metronidazole Allergy Severe see below Verified 06/16/18 03:51 amoxicillin Allergy Intermediate rash Verified 06/16/18 03:51 Home Medications Home Medications Medication Instructions Recorded Confirmed Type Lactobacillus acidophilus 10,000 mmu cells PO DAILY 06/16/18 06/16/18 History [Acidophilus] aspirin 81 mg PO DAILY 06/16/18 06/16/18 History digoxin 125 mcg PO DAILY 06/16/18 06/16/18 History ferrous sulfate 325 mg PO BID 06/16/18 06/16/18 History finasteride 5 mg PO DAILY 06/16/18 06/16/18 History furosemide 20 mg PO DAILY 06/16/18 06/16/18 History hydrocodone-acetaminophen 1 tab PO BID PRN 06/16/18 06/16/18 History losartan 50 mg PO DAILY 06/16/18 06/16/18 History metformin 500 mg PO TIDM 06/16/18 06/16/18 History metoprolol succinate 200 mg PO DAILY 06/16/18 06/16/18 History pantoprazole 40 mg PO BID 06/16/18 06/16/18 History potassium chloride 10 meq PO DAILY 06/16/18 06/16/18 History tramadol 50 mg PO Q6 PRN 06/16/18 06/16/18 History Patient History Medical History Sepsis (Chronic) Acquired buried penis (Chronic) BPH without urinary obstruction (Chronic) Benign hypertension (Chronic) Chronic diastolic CHF (congestive heart failure) (Chronic) DM (diabetes mellitus), type 2, uncontrolled w/ophthalmic complication (Chronic) Diverticulosis of colon (without mention of hemorrhage) (Chronic) Exertional dyspnea (Chronic) Gastric ulcer with hemorrhage but without obstruction (Chronic) H/O Clostridium difficile infection (Chronic) Hemangioma of skin (Chronic) History of chronic atrial fibrillation (Chronic) Morbid obesity (Chronic) JUAN MANUEL (obstructive sleep apnea) (Chronic) Symptomatic anemia (Chronic) Urinary retention (Chronic) Social History Current Living Situation: Spouse Other Information That Helps Us Care for You: No Feels Safe at Home: Yes Safety Concerns: Feels Safe At This Time Smoking Status: Never smoker Do You Dip or Chew Tobacco: No Second Hand Exposure: No Tobacco Cessation Education Requested by Patient: No Hx Alcohol Use: No Hx Substance Use: No Beliefs That Will Affect Care: None Preferred Language: Latvian 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 Ability: Effective Senior Licensing Manager Required: No Review of Systems Constitutional: as per Subjective / HPI Eyes: no diplopia and no decreased night vision Ear, Nose, Mouth, Throat: no nasal discharge, no facial pain and no mouth lesions Respiratory: no cough, no dyspnea and no hemoptysis Cardiovascular: no chest pain and no chest pain with activity Gastrointestinal: as per Subjective / HPI Genitourinary (Male): as per Subjective / HPI Pain n both lower extremities intermittantly L>R and has heal ulcers covered. He also has a decubitus ulcer changes of vascular insufficiency on the shins of both legs Neurologic: no localized weakness, no paralysis and no seizure-like activity He has motor weakness symmetrically all over. 4/5 Physical Exam 2 Vital Signs (Past 24 Hours): Last Vital Signs Temp 36.3 C L 06/16/18 09:56 Pulse 126 H 06/16/18 09:56 Resp 20 06/16/18 09:56 BP 147/82 H 06/16/18 09:56 Pulse Ox 94 06/16/18 09:56 Constitutional: WD/WN, vitals as above morbidly obese Eyes: PERRL, conjunctivae normal, anicteric sclerae ENMT: Mallampati Class: IV no LN no JVD Respiratory: normal respiratory effort, lungs clear to auscultation Cardiovascular: irreg irreg s1 s2 tachycadiac no murmurs appreciated. Gastrointestinal (Abdomen): normal bowel sounds, soft, nontender, no hepatosplenomegaly morbidly obese with a panus covering his pudendal area. FOly in place no discharge around excoriated scrotum . Musculoskeletal: dry skin bilateral LE, changes of vascular insufficiency on the LE. pulses felt. no CC, no edema Skin: as above Neurologic: A A Ox3 no focal motor deficits Results & Data Laboratory Results Laboratory Tests 08/12/17 06/16/18 06/16/18 08:15 03:12 03:12 WBC 9.89 Hgb 15.4 Plt Count 269 INR 1.1 APTT 27.2 Sodium 133 L Potassium 4.2 Creatinine 1.74 H Glucose 273 H POC Lactic Acid Indra Total Creatine Kinase 4281 H Troponin I 0.091 H* Procalcitonin Urine Nitrite Ur Leukocyte Esterase Urine WBC (Auto) 06/16/18 06/16/18 06/16/18 03:12 03:12 05:10 WBC 23.14 H Hgb 16.7 Plt Count 232 INR APTT Sodium Potassium Creatinine Glucose POC Lactic Acid Indra 2.75 H Total Creatine Kinase Troponin I Procalcitonin 0.99 H Urine Nitrite Ur Leukocyte Esterase Urine WBC (Auto) 06/16/18 06/16/18 06/16/18 07:10 09:01 09:03 WBC Hgb Plt Count INR APTT Sodium Potassium Creatinine Glucose POC Lactic Acid Indra Total Creatine Kinase 2136 H Troponin I 0.084 H* Procalcitonin Urine Nitrite Positive H Ur Leukocyte Esterase 3+ H Urine WBC (Auto) >[address] scan abd and pelvis IMPRESSION: 1. Wall thickening of the urinary bladder with extensive perivesicular stranding suggests acute cystitis. Correlate with urinalysis. There is an associated diverticulum noted about the urinary bladder dome. 2. Colonic diverticulosis without acute diverticulitis. 3. Suggested cirrhotic liver disease. 4. No bowel obstruction. 5. Nodular skin thickening of the perineum and posterior left scrotum with multiple indeterminate soft tissue nodules of the subcutaneous inferior gluteal distributions. 6. Additional findings as above. Ct head 1. No acute intracranial abnormality or calvarial fracture. 2. Atrophy with chronic microvascular ischemic changes. 3. Mild subcutaneous edema of the left parietal occipital scalp, likely posttraumatic. CXR IMPRESSION: 1. Blunting of the left costophrenic angle suggests atelectasis or trace effusion. 2. Cardiomegaly without overt pulmonary edema. _ (1) Sepsis Sepsis type: sepsis due to unspecified organism Qualified Code(s): A41.9 - Sepsis, unspecified organism (2) Rhabdomyolysis Encounter type: initial encounter Rhabdomyolysis type: traumatic Qualified Code(s): T79.6XXA - Traumatic ischemia of muscle, initial encounter (3) Pressure ulcer, stage II, skin breakdown Pressure injury location: buttock Laterality: unspecified laterality Qualified Code(s): L89.302 - Pressure ulcer of unspecified buttock, stage 2
[2018-06-16] MEDS ORDERED: VANCOMYCIN HCL 2,750 MG in SODIUM CHLORIDE 0.9% 500 ML IV SCH (11:00)
[2018-06-16 11:19] LABS: BUN Creatinine Ratio 21.2 (10-20); Calcium 8.4 mg/dl (8.5-10.1); Est GFR (African American) 57.8; Est GFR (Non-African American) 49.8; Potassium 4.2 mmol/L (3.5-5.1)
[2018-06-16] MEDS: CEFEPIME 2,000 MG in SYRINGE 0 ML IV SCH ×2 (11:19→23:02)
[2018-06-16] MEDS: METOPROLOL SUCC 50MG EXT REL TAB PO SCH (11:19)
[2018-06-16] MEDS: ONDANSETRON INJ 2 MG/ML 2 ML VIAL IV PRN ×2 (11:19→20:39)
[2018-06-16] MEDS: PANTOprazole 40 MG TAB PO SCH ×2 (11:20→20:40)
[2018-06-16] MEDS: LACTOBACILLUS ACIDOPHILUS (FLORANEX) TAB PO SCH (11:20)
[2018-06-16] MEDS: FINASTERIDE 5 MG TAB PO SCH (11:20)
[2018-06-16] MEDS: ASPIRIN 81 MG ECTAB PO SCH (11:20)
[2018-06-16] MEDS: HEPARIN SOD 5,000 UNIT/0.5 ML VIAL SQ SCH ×2 (11:21→21:51)
[2018-06-16] MEDS ORDERED: PHARMACY GLYCEMIC MGMT CONSULT STA (11:24)
[2018-06-16] MEDS: INSULIN ASPART 100 UNITS/ML 3 ML PEN SC SCH ×2 (11:36→17:43)
[2018-06-16] MEDS ORDERED: PERFLUTREN LIPID MICROSPHERE (DEFINITY) IV ONE (11:44)
--- NOTE | 2018-06-16 11:51 | Pharmacy Report ---
Pharmacy Abx Initial Consult - Date of Service June 16, 2018 - Pharmacy Dosing Scope Date of Consult: 06/16/18 Consultation requested by: Dr. Ames Pharmacy is consulted to initiate Vancomycin IV dosing therapy, order appropriate labs and adjust drug dose/frequency. - Subjective The patient is a 77 year old M admitted on 06/16/18 09:09. - Objective Height: 6 ft Weight: 136 kg (BMI 40.7) Vital Signs (Past 12hrs): Vital Signs Temp Pulse Pulse Resp BP BP Pulse Ox 06/16/18 11:20 121 H 155/81 H 06/16/18 09:56 36.3 C L 126 H 20 147/82 H 94 06/16/18 09:24 114 H 22 128/82 94 06/16/18 07:43 116 H 22 141/99 H 95 06/16/18 07:00 120 H 16 147/73 H 98 06/16/18 05:01 110 H 16 95 06/16/18 04:54 120 H 18 164/101 H 06/16/18 04:15 115 H 18 150/91 H 94 06/16/18 03:35 130 H 154/97 H 06/16/18 03:07 36.7 C 145 H 20 154/97 H 93 Lab Results (24hrs): Laboratory Tests (24 Hours) 06/16/18 06/16/18 06/16/18 10:55 09:03 03:12 WBC Neut # (Auto) Creatinine 1.36 D Est Cr Clr Drug Dosing 65.0 Total Creatine Kinase 2136 H Procalcitonin 0.99 H 06/16/18 06/16/18 03:12 03:12 WBC 23.14 H Neut # (Auto) 21.27 H Creatinine 1.74 H Est Cr Clr Drug Dosing 50.8 Total Creatine Kinase 4281 H Procalcitonin Micro Results: 06/16/18 07:10 Urine Culture - Pending Urine,Clean Catch 06/16/18 03:12 Blood Culture - Pending Blood 06/16/18 05:05 Blood Culture - Pending Blood - Risk Factors for Resistance * Antimicrobial use within the last 90 days Bactrim DS - Assessment & Plan Assessment 77 year old M admitted with urinary retention UTI and sepsis on top of decubitus ulcers. Has chronic indwelling catheter with recurrent UTI's with most recent growth of E coli, Proteus mirabilis, and questionable enterococcus. He fell while going to the bathroom and was trapped between the commode and wall for approx. 5 hours. Patient feels weak and nauseous and has suprapubic pain. Urology changed patiño catheter which then drained purulent urine. Patient' s abdominal pain improved afterwards but abdomen is rolling machine tender. Plan Vancomycin for treatment of UTI(? enterococcus)/Sepsis Vancomycin IV * Estimated PK Parameters: Vd 0.54 L/kg, Lester 0.0058 hr-1, t1/2 12 hr * Loading dose: 2750 mg (~20 mg/kg) * Maintenance dose: 1500 mg IV (11 mg/kg) every 14 hours * Goal trough level for UTI : 10 to 15 mcg/mL * Trough level ordered for 06/18/18 * A less than traditional dose has been selected due to likelihood of drug accumulation in obese patient Cefepime IV (not consult) * Ordered 2gm iv q12h * Dose appropriate for current renal function Pharmacy will continue to follow and will adjust dose/frequency as necessary. Thank you.
--- NOTE | 2018-06-16 12:57 | Cardiology Consultation ---
Date of Consultation June 16, 2018 Assessment & Plan (1) Sepsis: Agree with empiric treatment for suspected UTI (2) Acute urinary retention: Trending clear, concentrated urine after replacement of Baires catheter (3) Atrial fibrillation with RVR: Patient appears to be volume depleted. Agree with IV fluid resuscitation, antibiotics, patient is received 1 dose of metoprolol, and 2 IV doses of metoprolol with interval improvement in his ventricular rate from the range of 133 bpm to 110 bpm. I think his elevated heart rate is physiologic. This is related to his find patient state. We therefore resuscitate him and anticipate his heart rate will come down to his typical range of 70-80 bpm. The mild troponin elevation is likely due to myocardial strain in the setting of tachycardia. Symptoms are not suggestive of an acute coronary syndrome. An echocardiogram has been performed and will be reviewed by the undersigned. History of Present Illness Attending Physician: Kanwal Trotter MD History of Present Illness Josehp Deleon is a 77-year-old male seen in cardiology consultation per the request of Dr. rico further evaluation of atrial fibrillation with rapid ventricular response. The patient's primary corporate director of human resources is Dr. Parish Rodgers of our practice. He had most recently been seen as an outpatient on by Carol Singh PA-C of our practice at which time stable cardiac signs and symptoms were reported. The patient has a history of permanent atrial fibrillation. He is not on anticoagulation due to history of bleeding complication including history of a arterial venous scrotal hemorrhage in the past. He has therefore maintained on low-dose aspirin, and AV artis blockers for rate control. The patient has a history of urinary outflow tract obstruction and has a chronic indwelling Baires. Leading up to his presentation to the emergency room in the senior firewall engineer hours this morning he noted decreased urine output in his Baires bag. At approximately 3 AM he fell off the toilet and he was wedged between the toilet and the tub for 5 hours until a family member arrived to help him. Shortly after arrival to the emergency room he was seen in consultation by urology, he was found to have urinary catheter obstruction, a new catheter was placed, and he has been urinating in the interim. Presently he is seen and examined by the undersigned in ICU room 110. He is conversant. He is nauseous and just vomited. Initial EKG performed just after arrival at 3 AM this morning revealed atrial fibrillation at 133 bpm without significant repolarization abnormalities. Currently, atrial fibrillation the range of 110-120 bpm is present. Patient has no subjective sensation of tachycardia at present. He denies any anginal symptoms. Allergies Allergy/AdvReac Type Severity Reaction Status Date / Time metronidazole Allergy Severe see below Verified 06/16/18 03:51 amoxicillin Allergy Intermediate rash Verified 06/16/18 03:51 Home Medications Home Medications Medication Instructions Recorded Confirmed Type Lactobacillus acidophilus 10,000 mmu cells PO DAILY 06/16/18 06/16/18 History [Acidophilus] aspirin 81 mg PO DAILY 06/16/18 06/16/18 History digoxin 125 mcg PO DAILY 06/16/18 06/16/18 History ferrous sulfate 325 mg PO BID 06/16/18 06/16/18 History finasteride 5 mg PO DAILY 06/16/18 06/16/18 History furosemide 20 mg PO DAILY 06/16/18 06/16/18 History hydrocodone-acetaminophen 1 tab PO BID PRN 06/16/18 06/16/18 History losartan 50 mg PO DAILY 06/16/18 06/16/18 History metformin 500 mg PO TIDM 06/16/18 06/16/18 History metoprolol succinate 200 mg PO DAILY 06/16/18 06/16/18 History pantoprazole 40 mg PO BID 06/16/18 06/16/18 History potassium chloride 10 meq PO DAILY 06/16/18 06/16/18 History tramadol 50 mg PO Q6 PRN 06/16/18 06/16/18 History Patient History Medical History Sepsis (Chronic) Acquired buried penis (Chronic) BPH without urinary obstruction (Chronic) Benign hypertension (Chronic) Chronic diastolic CHF (congestive heart failure) (Chronic) DM (diabetes mellitus), type 2, uncontrolled w/ophthalmic complication (Chronic) Diverticulosis of colon (without mention of hemorrhage) (Chronic) Exertional dyspnea (Chronic) Gastric ulcer with hemorrhage but without obstruction (Chronic) H/O Clostridium difficile infection (Chronic) Hemangioma of skin (Chronic) History of chronic atrial fibrillation (Chronic) Morbid obesity (Chronic) JUAN MANUEL (obstructive sleep apnea) (Chronic) Symptomatic anemia (Chronic) Urinary retention (Chronic) Social History (Reviewed 06/16/18 @ 10:48 by Jessica Samson Current Living Situation: Spouse Other Information That Helps Us Care for You: No Feels Safe at Home: Yes Safety Concerns: Feels Safe At This Time Smoking Status: Never smoker Do You Dip or Chew Tobacco: No Second Hand Exposure: No Tobacco Cessation Education Requested by Patient: No Hx Alcohol Use: No Hx Substance Use: No Beliefs That Will Affect Care: None Preferred Language: Mohawk 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 Ability: Effective Principal Gifts Officer Required: No Physical Exam 2 Vital Signs (Past 24 Hours): Last Vital Signs Temp 36.3 C L 06/16/18 09:56 Pulse 121 H 06/16/18 11:20 Resp 20 06/16/18 09:56 BP 155/81 H 06/16/18 11:20 Pulse Ox 94 06/16/18 09:56 Constitutional: Patient appears acutely ill appearing Respiratory: normal respiratory effort; no respiratory distress, no labored breathing and no cough Auscultation: lungs clear to auscultation bilaterally Cardiovascular: Tachycardic, no significant murmur, chronic venous stasis changes without edema in the lower extremities Gastrointestinal (Abdomen): Obese nontender Neurologic: moves all extremities No focal deficits _ (1) Sepsis Sepsis type: sepsis due to unspecified organism Qualified Code(s): A41.9 - Sepsis, unspecified organism
[2018-06-16] MEDS ORDERED: SODIUM CHLORIDE 0.9% 500 ML IV SCH (14:00)
--- NOTE | 2018-06-16 14:32 | History & Physical Report ---
Date of Service June 16, 2018 Assessment & Plan (1) Sepsis: Presented with severe sepsis: Meets criteria: Tachycardia A. fib RVR, acute renal failure, hypotension, elevated lactic acid >2 Acute renal failure Source of infection: Complicated UTI, cystitis. With chronic indwelling Patiño catheter PT responded well to IV fluids, Blood pressure stabilized, did not require any pressor supports Repeat lactic acid in 4-hour shows normalization after adequate hydration Patient is admitted to ICU for close monitoring of hemodynamics Appreciate input to put/help from intensive Patient will be continued with broad spectrum antibiotic IV Zosyn and vancomycin Order for urine culture, blood culture Infectious disease consulted (2) Acute urinary retention: has chronic indwelling Foely for last 2-3 yrs follows with Urology in [place] and Dr Priscilla Zhang locally pt was unable to void since yesterday after sustaining fall presented to ER with severe lower abdomen /suprapubic pain CT abdomen /pelvis shows 1. Wall thickening of the urinary bladder with extensive perivesicular stranding suggests acute cystitis. Correlate with urinalysis. There is an associated diverticulum noted about the urinary bladder dome. Urology Dr Zhang consulted pt evaluated by Urology in ER pt had 16 F catheter which was occluded by debri and pus , unable to flush the tube Cathter was replaced by Dr Zhang a 20 F catheter placed , draining pus /concentrated Urine pt reports of significant relief of abdominal discomfort started on broad spectrum abx for severe Cystis/complicated UTI /sepsis follow urine and blood culture Present on Admission?: Yes (3) Atrial fibrillation with RVR: Transthoracic echo: 06/16/2018 history of chronic A. fib, on beta-john Presented with rapid A. fib RVR heart rate in 140s, secondary to sepsis, dehydration Patient given IV Lopressor IV fluids and antibiotic as per sepsis protocol Patient has not been on anticoagulation secondary to multiple bleeding and fall risk Patient remains asymptomatic complains of no shortness of breath palpitation or chest heaviness Mild elevation of troponin noted Cardiology consulted, appreciate input In agreement of treating sepsis with fluid antibiotic Patient should be continued with home dose of Toprol-XL As needed IV Lopressor ordered as needed for heart rate more than 100 No evidence of acute coronary event Mild elevation of troponin possibly secondary to rapid A. fib, demand ischemia, type II non-ST elevated TN Transthoracic echo: 06/16/2018 Study is technically difficult but adequate for referral indication. A. fib with rapid ventricular response was present during the echocardiogram. There is mild concentric left ventricular hypertrophy. Left ventricular cavity is small and underfilled No regional wall motion abnormalities noted Qualitative left ventricular ejection fraction more than 70% hyperdynamic Right ventricle is hyperdynamic Aortic valve is mildly calcified Aortic stenosis is absent The aortic root was not visualized well enough to allow measurements, the proximal ascending aorta was mildly dilated with diameter of 4 cm (4) Rhabdomyolysis: due to fall /prolong immobilization//was on floor for apprx 5 hrs presented with elevated CPK > 4000k CIERRA ordered for IV fluid resuscitation 30ml/kgbw repeat Lab shows -improved CPK level, resolution of CIERRA pt is continued with IV hydration monitor vol status closely due to hx of diastolic CHF ( ECHO shows significant vol depletion with hyperdynamic EF >70% Present on Admission?: Yes (5) Pressure ulcer, stage II, skin breakdown: present on admission follows with Wound care clinic wound care consulted Present on Admission?: Yes (6) Scrotal varicose veins: follows with wound care -consulted ordered for off loading , change of position OOB to chair when able Present on Admission?: Yes (7) Ulcer of scrotum: present on admission -chronic due to morbid obesity , pt stays in his lift chair whole day pt was asked to change position , off loading by wound care clinic for healing of pressure sore no drainage wound noted wound care consulted ordered for off loading change of position Present on Admission?: Yes (8) Diabetic toe ulcer: present on admission Left 2nd toe -tip appears to be Necrotic follows with Podiatry Dr Padilla Arauz dressing change was done with betadine Podaitry Dr Arauz consulted to assess Present on Admission?: Yes (9) Hypertension: was hypotensive on admission due to sepsis , dehydration BP improved with IV hydration beta john : Lopressor resumed for rapid afib RVR cont to hold Lasix and Losartan (10) Diabetes: Type 2 DM with CKD stage 3 /diabetic toe ulcer presented with hyperglycemia due to infection /sepsis insulin SSI and Basal bolus pharmacy consulted for glycemic management Present on Admission?: Yes (11) Chronic diastolic CHF (congestive heart failure): presented with hypovolumia /dehydration ECHO shows : flattend IVC , Hyperdynamic LV , EF > 70% Diuretics : Lasix /ARB kept on hold IV fluid resuscitation vol status will be monitored closely to prevent vol oveload Present on Admission?: Yes (12) Obesity, morbid, BMI 40.0-49.9: BMI 40. 7 causing multiple co morbidities limited mobility , leading pressure sore in sacral and scrotal area urinary retention /bladder outlet obstruction requiring chronic indwelling patiño catheter /recurrent UTI Dietitian consulted -help with guideline to pt and family -low calorie intake / healthy diet PT/OT when medically stable Present on Admission?: Yes (13) Acute renal failure superimposed on stage 3 chronic kidney disease: due to severe sepsis /dehydration cont IVF diuretics kept on hold avoid NSAID's /contrast studies , nephrotoxins Present on Admission?: Yes (14) Chronic indwelling Patiño catheter: Present on Admission?: Yes (15) Complicated UTI (urinary tract infection): Patiño draining urine /pus severe cystitis /complicated UTI due to chronic patiño hx of recurrent UTI prior cultures growth : E .coli -martinez sensitive morgenella enterococci ordered for Cefepime /Vancomycin follow urine culture ID eval requested CODE STATUS : full code DVT PROPHYLAXIS : high risk morbid obesity , bed bound /severe sepsis ordered Sub q heparin DISPOSITION ; pt is admitted to ICU for critical illness will need PT/OT eval when clinically improved lives at home with will benefit with rehab social service consulted for discharge planning Present on Admission?: Yes History of Present Illness Chief Complaint: This is a 77-year-old male with a very complicated past medical history of morbid obesity leading to obstructed or urinary tract symptoms, chronic Patiño, history of A. fib not a candidate for anticoagulation (prior history of GI bleed , lower extremity hemangioma, acute blood loss anemia) Hypertension dyslipidemia, type 2 diabetes, chronic diabetic foot wound, chronic sacral pressure ulcer, chronic diastolic dysfunction Brought to the ER by , as patient was unable to urinate since yesterday, no urine output through the Patiño, leading to acute lower abdominal pain and discomfort Patient sustained a fall last Monday at around 3 AM in bathroom-fell forward and remained trapped between the toilet and the shower Was unable to get up, patient's son arrived at 8 AM, helped him to get back on chair Patient refused to go to the ER Patient does not recall of episode of dizzy spell lightheadedness or chest heaviness prior or after fall Patient's was out of town, she arrived home around 4 PM Patient was doing well, was able to walk to the dining table with rolling walker noticed that there was no urine output on the Patiño bag Throughout the night patient complained of lower abdominal pain and discomfort around 5 a.m. the pain was severe, patient decided to come to the ER In ER patient was found to be hypotensive, in rapid A. fib RVR, leukocytosis with white count of 20 3K, elevated lactic acid CT abdomen pelvis noncontrast shows dilated urinary bladder with marked inflammation noted Patient's Patiño was clogged with debris and pus ER unable to flush the Patiño Urology Dr. Zhang consulted, Dr. Zhang changed to Patiño in the ER, able to flush, purulent urine was drained into the Patiño bag Patient reported relief of lower to mid abdominal pain and discomfort Patient will be admitted to ICU, with a diagnosis of severe sepsis, complicated UTI severe cystitis with indwelling Patiño catheter And CPK level was elevated more than 4000, rhabdomyolysis secondary to fall and prolonged immobilization(was on the bathroom floor for approximately 5 hours) for family able to get him up Primary Care Provider: Donte Szymanski Allergies Allergy/AdvReac Type Severity Reaction Status Date / Time metronidazole Allergy Severe see below Verified 06/16/18 03:51 amoxicillin Allergy Intermediate rash Verified 06/16/18 03:51 Home Medications Home Medications Medication Instructions Recorded Confirmed Type Lactobacillus acidophilus 10,000 mmu cells PO DAILY 06/16/18 06/16/18 History [Acidophilus] aspirin 81 mg PO DAILY 06/16/18 06/16/18 History digoxin 125 mcg PO DAILY 06/16/18 06/16/18 History ferrous sulfate 325 mg PO BID 06/16/18 06/16/18 History finasteride 5 mg PO DAILY 06/16/18 06/16/18 History furosemide 20 mg PO DAILY 06/16/18 06/16/18 History hydrocodone-acetaminophen 1 tab PO BID PRN 06/16/18 06/16/18 History losartan 50 mg PO DAILY 06/16/18 06/16/18 History metformin 500 mg PO TIDM 06/16/18 06/16/18 History metoprolol succinate 200 mg PO DAILY 06/16/18 06/16/18 History pantoprazole 40 mg PO BID 06/16/18 06/16/18 History potassium chloride 10 meq PO DAILY 06/16/18 06/16/18 History tramadol 50 mg PO Q6 PRN 06/16/18 06/16/18 History Past Med/Surg History Medical History Sepsis (Chronic) Acquired buried penis (Chronic) BPH without urinary obstruction (Chronic) Benign hypertension (Chronic) Chronic diastolic CHF (congestive heart failure) (Chronic) DM (diabetes mellitus), type 2, uncontrolled w/ophthalmic complication (Chronic) Diverticulosis of colon (without mention of hemorrhage) (Chronic) Exertional dyspnea (Chronic) Gastric ulcer with hemorrhage but without obstruction (Chronic) H/O Clostridium difficile infection (Chronic) Hemangioma of skin (Chronic) History of chronic atrial fibrillation (Chronic) Morbid obesity (Chronic) JUAN MANUEL (obstructive sleep apnea) (Chronic) Symptomatic anemia (Chronic) Urinary retention (Chronic) Social History Current Living Situation: Spouse Other Information That Helps Us Care for You: No Feels Safe at Home: Yes Safety Concerns: Feels Safe At This Time Smoking Status: Never smoker Do You Dip or Chew Tobacco: No Second Hand Exposure: No Tobacco Cessation Education Requested by Patient: No Hx Alcohol Use: No Hx Substance Use: No Beliefs That Will Affect Care: None Preferred Language: Niuean 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 Ability: Effective Collection Card Clerk Required: No Physical Exam 2 Vital Signs (Past 24 Hours): Last Vital Signs Temp 36.3 C L 06/16/18 09:56 Pulse 121 H 06/16/18 11:20 Resp 20 06/16/18 09:56 BP 155/81 H 06/16/18 11:20 Pulse Ox 94 06/16/18 09:56 Constitutional: + ill appearing and + morbidly obese ENMT: external ear and nose normal, oropharynx normal Neck: trachea midline, no thyromegaly Respiratory: no respiratory distress, no labored breathing, does not use accessory muscles and no cough Auscultation: + diminished lung sounds ( Difficult auscultation secondary to body habitus) Cardiovascular: Rate/Rhythm: + tachycardic (Rapid A. fib) Vessels: + dorsalis pedis pulses abnormal Extremities: + edema (+2 bilateral pitting edema); + abnormal capillary refill (Poor capillary refill) Gastrointestinal (Abdomen): Inspection/Auscultation: + abdomen distended Percussion/Palpation: abdomen soft; abdomen nontender Musculoskeletal: Head/Neck/Chest: normocephalic and head atraumatic Spine: + buttock ecchymosis (Stage II buttock wound) and + sacral erythema (Stage II sacral pressure ulcer, scrotal edema with cyanosis) Extremities: + lower extremity abnormal to inspection (Bilateral 2-3+ edema with chronic venous stasis changes, left second toe tip area necrotic, no active drainage noted) Bilateral Skin: + turgor decreased Neurologic: PERRL, EOMI, accommodation nl, no face palsy, no dysarthria Psychiatric: Orientation: alert, oriented to person, oriented to place and cooperative Results & Data Diagnostic Findings CT abdomen pelvis without contrast: IMPRESSION: 1. Wall thickening of the urinary bladder with extensive perivesicular stranding suggests acute cystitis. Correlate with urinalysis. There is an associated diverticulum noted about the urinary bladder dome. 2. Colonic diverticulosis without acute diverticulitis. 3. Suggested cirrhotic liver disease. 4. No bowel obstruction. 5. Nodular skin thickening of the perineum and posterior left scrotum with multiple indeterminate soft tissue nodules of the subcutaneous inferior gluteal distributions. Code Status & VTE Plan Code Status Full code : Discussed with patient and VTE Prophylaxis Plan VTE Prophylaxis will be ordered: Yes _ (1) Pressure ulcer, stage II, skin breakdown Laterality: unspecified laterality Pressure injury location: buttock Qualified Code(s): L89.302 - Pressure ulcer of unspecified buttock, stage 2 (2) Diabetes Diabetes mellitus complication detail: with foot ulcer Diabetes mellitus complication status: with skin complications Diabetes mellitus long term care pharmacist insulin use: unspecified long term care pharmacist insulin use status Diabetes mellitus type: type 2 Qualified Code(s): E11.621 - Type 2 diabetes mellitus with foot ulcer; L97.509 - Non-pressure chronic ulcer of other part of unspecified foot with unspecified severity (3) Rhabdomyolysis Encounter type: initial encounter Rhabdomyolysis type: traumatic Qualified Code(s): T79.6XXA - Traumatic ischemia of muscle, initial encounter (4) Acute renal failure superimposed on stage 3 chronic kidney disease Acute renal failure type: unspecified Qualified Code(s): N17.9 - Acute kidney failure, unspecified; N18.3 - Chronic kidney disease, stage 3 (moderate) (5) Sepsis Sepsis type: sepsis due to unspecified organism Qualified Code(s): A41.9 - Sepsis, unspecified organism (6) Diabetic toe ulcer Diabetes mellitus type: type 2 Laterality: left Non-pressure ulcer stage: unspecified non-pressure ulcer stage Qualified Code(s): E11.621 - Type 2 diabetes mellitus with foot ulcer; L97.529 - Non-pressure chronic ulcer of other part of left foot with unspecified severity (7) Hypertension Hypertension type: unspecified Qualified Code(s): I10 - Essential (primary) hypertension
[2018-06-16] MEDS: HYDROmorphone INJ 0.5 MG/0.5 ML SYR IV PRN ×2 (14:38→23:54)
--- NOTE | 2018-06-16 14:44 | Pharmacy Report ---
Glycemic Control Consultation - Date of Service June 16, 2018 - Scope Scope: Glycemic Pharmacist consulted by Dr Trotter on 06/16/18 for glycemic control and to write orders per [facility] inpatient glycemic control protocol - Objective Weight: 136 kg (BMI 40.7) Accuchecks BSG (last 24hrs): 06/16/18 06/16/18 06/16/18 03:12 10:55 11:34 Glucose 273 H 257 H POC Glucose 245 H Laboratory Data (last 24hrs): 06/16/18 06/16/18 03:12 10:55 Potassium 4.2 4.2 Carbon Dioxide 23 23 Anion Gap 11.0 10.0 Creatinine 1.74 H 1.36 D Est Cr Clr Drug Dosing 50.8 65.0 - Recent Pertinent Medications Outpatient Anti-diabetic Regimen: * metformin 500 mg PO TID * A1c = 7.6 % 04/30/17 Risk Factors for Insulin Resistance: * Infection: vanco and cefepime IV for sepsis, UTI, decubitus ulcer - Assessment & Plan Assessment & Plan: ASSESSMENT: * 77 yr old T2DM male admitted with sepsis in the setting of chronic indwelling patiño for urinary retention and decubitus ulcers. * BSG was elevated at the time of admission, 257 mg/dL. This is likely due to stress from underlying infection. * Patient is maintained on metformin at home. Oral agents will be held and patient will be managed using SQ basal/bolus insulin. If prompt improvement in BSGs is not seen, patient may be started on an IV insulin infusion. PLAN FOR INPATIENT GLYCEMIC CONTROL: * Holding outpatient oral diabetes medications * Basal insulin * Lantus SQ BID per scale * 0 units for BSG less than 160 mg/dL * 12 units for BSG 160 mg/dL or more * Bolus insulin * NovoLog per scale ACHS or Q6hrs while NPO * Goal Range: Low 120 mg/dL - High 160 mg/dL * Correction Factor: 20 mg/dL/unit * Nutritional / Prandial insulin per carb ratio of 1 unit per 8 grams CHO consumed * Please note that the plan above was derived based on current level of insulin resistance and hospital stress. These recommendations are appropriate for inpatient admission only. Plan of care upon discharge will need to be reassessed to avoid potential outpatient hypo/hyperglycemia. Thank you.
[2018-06-16] MEDS: DIGOXIN 0.125 MG TAB PO SCH (14:53)
[2018-06-16] MEDS: PROMETHAZINE HCL 25 MG in SODIUM CHLORIDE 0.9% 50 ML IV PRN ×2 (14:53→21:50)
[2018-06-16] MEDS: METOPROLOL TARTRATE 1 MG/ML VIAL IV PRN ×2 (17:37→23:54)
[2018-06-16] MEDS ORDERED: SODIUM CHLORIDE 0.9% 1000ML 500 ML IV ONE (18:00)
[2018-06-16] MEDS: INSULIN GLARGINE SOLOSTAR 100 UNITS/ML 3 ML PEN SC SCH (20:39)
--- NOTE | 2018-06-16 20:52 | XRay Report ---
XR foot LT 2V HISTORY: 77 years-old Male Necrotic left toe chronic pain and swelling of the left second toe COMPARISON: Left radiographs 04/29/2017 TECHNIQUE: 3 views of the left foot FINDINGS: Demineralized appearance of the bones. Moderate sized enthesophytes of the plantar and Achilles calca neus. Degenerative changes of the tibiotalar joint with marginal spurring about the midfoot. Limited evaluation of the digits secondary to positioning. There is extension of the metatarsophalangeal join ts with flexion of the interphalangeal joints. Moderate soft tissue swelling about the forefoot. Mode rate degenerative changes of the first MTP joint. No acute fracture or dislocation. Peripheral arteri al calcifications are noted. There is an apparent skin ulcer noted of the second toe. Ill-defined lucent changes of the second dis steffi phalange tuft are noted and in addition to cortical indistinctness. IMPRESSION: 1. Soft tissue swelling with apparent skin ulcer of the distal second toe. Cortical indistinctness wi th ill-defined lucency of the distal phalangeal tuft is suspicious for early acute osteomyelitis with in the appropriate clinical setting. 2. Demineralized appearance of the bones with degenerative changes as above. 3. Peripheral arterial locations are noted. The above report was generated using voice recognition software. It may contain grammatical, syntax o r spelling errors. Electronically signed by: Brandin Kruse M.D. 06/16/2018 8:50 PM
[2018-06-17] MEDS: INSULIN ASPART 100 UNITS/ML 3 ML PEN SC SCH ×5 (00:22→20:25)
[2018-06-17] MEDS: VANCOMYCIN HCL 1,500 MG in SODIUM CHLORIDE 0.9% 500 ML IV SCH ×2 (00:26→14:38)
[2018-06-17] MEDS: HYDROmorphone INJ 0.5 MG/0.5 ML SYR IV PRN ×3 (04:04→07:53)
[2018-06-17] MEDS: METOPROLOL TARTRATE 1 MG/ML VIAL IV PRN ×2 (04:04→09:51)
[2018-06-17] MEDS: PROMETHAZINE HCL 25 MG in SODIUM CHLORIDE 0.9% 50 ML IV PRN ×2 (04:05→12:03)
[2018-06-17 05:59] LABS: Basophils # (auto) 0.02 K/uL (0-0.2); Basophils % (auto) 0.1 %; Eosinophils # (auto) 0.02 K/uL (0-0.5); Eosinophils % (auto) 0.1 %; Hemoglobin 15.1 g/dL (14.0-18.0); Immature Granulocytes # (auto) 0.05 K/uL (0.00-0.02); Immature Granulocytes % (auto) 0.3 %; Lymphocytes # (auto) 0.96 K/uL (1.2-3.4); Lymphocytes % (auto) 5.2 %; Mean Corpuscular Hgb Conc 32.8 g/dL (32-36); Mean Corpuscular Volume 88.5 fL (80-100); Monocytes # (auto) 0.96 K/uL (0.11-0.59); Monocytes % (auto) 5.2 %; Neutrophils # (auto) 16.34 K/uL (1.4-6.5); Neutrophils % (auto) 89.1 %; Platelet Count 225 K/uL (130-400); RDW Coefficient of Variation 16.1 % (11.5-14.5); RDW Standard Deviation 52.5 fL (36.4-46.3); White Blood Count 18.35 K/uL (4.8-10.8)
[2018-06-17] MEDS: HEPARIN SOD 5,000 UNIT/0.5 ML VIAL SQ SCH ×3 (06:08→22:21)
[2018-06-17 06:41] LABS: Albumin Globulin Ratio 0.5 (0.9-2); Albumin Level 2.4 gm/dl (3.4-5.0); BUN Creatinine Ratio 24.9 (10-20); Bilirubin,Total 0.6 mg/dl (0.1-1); Calcium 7.9 mg/dl (8.5-10.1); Creatinine Clr Calc Pharmacy 89.4 ml/min; Est GFR (African American) 85.8; Est GFR (Non-African American) 74.1; Globulin 4.5 gm/dl (2.5-4.0); Magnesium 2.3 mg/dl (1.8-2.4); Phosphorus 2.2 mg/dl (2.5-4.9); Potassium 4.3 mmol/L (3.5-5.1); Total Protein 6.9 gm/dl (6.4-8.2)
--- NOTE | 2018-06-17 07:10 | Infectious Disease Consult ---
Date of Consultation June 17, 2018 Assessment & Plan (1) Complicated UTI (urinary tract infection): continue current abx, follow cultures. History of Present Illness Attending Physician: Kanwal Trotter MD pt admitted with abd pain and low urine output from patiño. UA >30 wbc, 4+ bacteria, urine culture and blood cultures obtained in ER, results pending. Started on emperic broad spectrum abx - cefepime and vanco, tolerating well. afebrile overnight. wbc [address] abd in ER showing cystitis. On my exam this am he is c/o abd pain and nausea, no vomiting. denies f/c. no cp, sob, cough. patiño in place. no diarrha. Allergies Allergy/AdvReac Type Severity Reaction Status Date / Time metronidazole Allergy Severe see below Verified 06/16/18 03:51 amoxicillin Allergy Intermediate rash Verified 06/16/18 03:51 Home Medications Home Medications Medication Instructions Recorded Confirmed Type Lactobacillus acidophilus 10,000 mmu cells PO DAILY 06/16/18 06/16/18 History [Acidophilus] aspirin 81 mg PO DAILY 06/16/18 06/16/18 History digoxin 125 mcg PO DAILY 06/16/18 06/16/18 History ferrous sulfate 325 mg PO BID 06/16/18 06/16/18 History finasteride 5 mg PO DAILY 06/16/18 06/16/18 History furosemide 20 mg PO DAILY 06/16/18 06/16/18 History hydrocodone-acetaminophen 1 tab PO BID PRN 06/16/18 06/16/18 History losartan 50 mg PO DAILY 06/16/18 06/16/18 History metformin 500 mg PO TIDM 06/16/18 06/16/18 History metoprolol succinate 200 mg PO DAILY 06/16/18 06/16/18 History pantoprazole 40 mg PO BID 06/16/18 06/16/18 History potassium chloride 10 meq PO DAILY 06/16/18 06/16/18 History tramadol 50 mg PO Q6 PRN 06/16/18 06/16/18 History Patient History Medical History Sepsis (Chronic) Acquired buried penis (Chronic) BPH without urinary obstruction (Chronic) Benign hypertension (Chronic) Chronic diastolic CHF (congestive heart failure) (Chronic) DM (diabetes mellitus), type 2, uncontrolled w/ophthalmic complication (Chronic) Diverticulosis of colon (without mention of hemorrhage) (Chronic) Exertional dyspnea (Chronic) Gastric ulcer with hemorrhage but without obstruction (Chronic) H/O Clostridium difficile infection (Chronic) Hemangioma of skin (Chronic) History of chronic atrial fibrillation (Chronic) Morbid obesity (Chronic) JUAN MANUEL (obstructive sleep apnea) (Chronic) Symptomatic anemia (Chronic) Urinary retention (Chronic) Social History Current Living Situation: Spouse Other Information That Helps Us Care for You: No Feels Safe at Home: Yes Safety Concerns: Feels Safe At This Time Smoking Status: Never smoker Do You Dip or Chew Tobacco: No Second Hand Exposure: No Tobacco Cessation Education Requested by Patient: No Hx Alcohol Use: No Hx Substance Use: No Beliefs That Will Affect Care: None Preferred Language: Citizen [place] 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 Ability: Effective Judge Required: No Review of Systems all remaining ros reviewed and are negative Physical Exam 2 Vital Signs (Past 24 Hours): Last Vital Signs Temp 36.5 C 06/17/18 04:00 Pulse 105 H 06/17/18 06:01 Resp 26 H 06/17/18 06:01 BP 138/70 06/17/18 06:01 Pulse Ox 92 06/17/18 06:01 Constitutional: WD/WN, vitals as above Eyes: PERRL, conjunctivae normal, anicteric sclerae ENMT: external ear and nose normal, oropharynx normal Neck: normal visual inspection Respiratory: normal respiratory effort, lungs clear to auscultation Auscultation: + diminished lung sounds Cardiovascular: RRR, no murmur, no edema Gastrointestinal (Abdomen): normal bowel sounds, soft, nontender, no hepatosplenomegaly Musculoskeletal: no cyanosis or clubbing, extremities motor strength 5/5 Skin: no rashes, warm and dry chronic changes b/l le Psychiatric: A+Ox3, euthymic affect
--- NOTE | 2018-06-17 07:24 | XRay Report ---
SINGLE VIEW CHEST CLINICAL HISTORY: Sepsis. FINDINGS: An AP, portable, upright chest radiograph is compared to study dated 06/16/2018. The examin ation is degraded by portable technique and patient rotation. The heart is enlarged and there is ath erosclerotic calcification of the thoracic aorta. There is mild pulmonary vascular congestion. Bibasi lar atelectasis is noted. No focal airspace consolidation or large pleural effusion is identified. No pneumothorax is seen. The skeletal structures are osteopenic. The bony thorax is grossly intact. IMPRESSION: 1. Cardiomegaly with mild pulmonary vascular congestion. 2. No focal airspace consolidation or large pleural effusion is identified. Electronically signed by: Bernardo Toscano M.D. 06/17/2018 7:22 AM
[2018-06-17] MEDS: PANTOprazole 40 MG TAB PO SCH (07:47)
[2018-06-17] MEDS: FINASTERIDE 5 MG TAB PO SCH (07:47)
[2018-06-17] MEDS: LACTOBACILLUS ACIDOPHILUS (FLORANEX) TAB PO SCH (07:47)
[2018-06-17] MEDS: ONDANSETRON INJ 2 MG/ML 2 ML VIAL IV PRN (07:48)
[2018-06-17] MEDS: ASPIRIN 81 MG ECTAB PO SCH (07:48)
[2018-06-17] MEDS: METOPROLOL SUCC 50MG EXT REL TAB PO SCH (07:48)
[2018-06-17] MEDS: INSULIN GLARGINE SOLOSTAR 100 UNITS/ML 3 ML PEN SC SCH ×2 (07:50→20:24)
[2018-06-17] MEDS ORDERED: ALUMINUM/MAGNESIUM SUSP 18 ML, LIDOCAINE HCL VISCOUS 2% 6 ML, BARCODE IDENTIFIER 1 EA PO ONE (08:30)
[2018-06-17] MEDS ORDERED: METOPROLOL SUCC 50MG EXT REL TAB PO SCH (09:00)
[2018-06-17] MEDS: CEFEPIME 2,000 MG in SYRINGE 0 ML IV SCH ×2 (09:51→22:22)
--- NOTE | 2018-06-17 09:51 | Cardiology Progress Note ---
Date of Service June 17, 2018 Assessment & Plan (1) Complicated UTI (urinary tract infection): (2) Chronic indwelling Baires catheter: (3) Atrial fibrillation with RVR: As noted yesterday, patient has a history of permanent atrial fibrillation. He is not on anticoagulation at baseline due to past bleeding complications. Continue aspirin 81 mg daily. Continue subcutaneous heparin for DVT prophylaxis. Rates are trending down with fluid resuscitation. He has received his home dose of metoprolol succinate 200 mg so far this morning, and he has been able to keep this down. He is also received his home dose of digoxin. Despite his acute kidney injury, his digoxin level was acceptable on admission. Plan for dose of IV metoprolol 5 mg x1. I anticipate his rates will continue to improve with improvement in his infection. Subjective Chief Complaint: follow up AF, RVR Subjective: Patient still nauseous. But overall improved. He received vigorous IV fluid resuscitation and is +3.5 L today. Preliminary urine culture is yielding gram-negative bacilli. He remains on broad-spectrum antibiotics. He remains in atrial fibrillation. Rates are improved down to the range of 110 bpm for the most part, with no other significant arrhythmias. Troponin is trending down, and he has no symptoms of angina. Echocardiogram revealed normal hyperdynamic biventricular systolic function. Physical Exam 2 Vital Signs (Past 24 Hours): Last Vital Signs Temp 36.5 C 06/17/18 08:00 Pulse 108 H 06/17/18 09:00 Resp 19 06/17/18 09:00 BP 144/92 H 06/17/18 09:00 Pulse Ox 91 06/17/18 09:00 Constitutional: + ill appearing (Chronically ill in appearance) Respiratory: Auscultation: + diminished lung sounds (Mildly decreased breath sounds at the bases, no rales rhonchi or wheezing) Gastrointestinal (Abdomen): Obese, soft nontender nondistended Neurologic: moves all extremities and awake; not confused Genitourinary: Clear urine draining through Baires
--- NOTE | 2018-06-17 11:11 | Critical Care Progress Note ---
Date of Service June 17, 2018 Assessment & Plan (1) Admitted to intensive care unit: 77 yo male patient who is supermorbidly obese. with BPH and chronic indwelling patiño catheter admitted with urinary retention UTI and severe sepsis on top of decubiti ulcers. Patiño changed on cefepime and vancomycin Neurologic Hydromorphone 0.5 mg IV Q4 for pain Respiratory there is no evidence of distress or fluid overload. Smoked x 10 years but stopped 40 years ago No history or resp illness Cardiovascular aspirin home dose metoprolol IV to control HR 200 mg metoprolol succinate daily losartan 50 mg daily IV F at 100 ml/hr Will bolus with another 500 ml of NS Maintain MAP >65 mmHg GI diet as tolerated zofran + phenergan PRN for nausea pantoprazole home dose Renal maintain IVF to achieve UO of >0.5 ml/Kg BW-hr FU and replete lytes ID cefipime and vancomycin May taper down to only cefepime if the urine grows only gram negative bacilli. Will wait untill culture is out. pharmacy consulted for vanc FU blood and urine cultures FU DVT prophyalxis with heaprin SC needs patiño at this point and only has peripheral IVs Full code total critical care time 55 minutes. (2) Sepsis: (3) Acute urinary retention: (4) Atrial fibrillation with RVR: (5) Acute renal insufficiency: (6) Rhabdomyolysis: (7) Pressure ulcer, stage II, skin breakdown: Subjective His main complaint is that of nausea. He also reports pain in the abdomen on the dry heaves he has. Pain is the subcostal area. No suprapubic tenderness is noted and no rebound tenderness. He has a decent urine output and is 3.5 liters positive. He made 1860 ml of urine yesterday which is much clearer. Urine culture is growing gram negative bacilli. He has not had a BM. We are starting him on a bowel regimen. Physical Exam 2 Vital Signs (Past 24 Hours): Last Vital Signs Temp 36.5 C 06/17/18 08:00 Pulse 110 H 06/17/18 09:51 Resp 19 06/17/18 09:00 BP 144/92 H 06/17/18 09:51 Pulse Ox 91 06/17/18 09:00 Constitutional: WD/WN, vitals as above Eyes: PERRL, conjunctivae normal, anicteric sclerae ENMT: Mallampati Class: IV Neck: supple Respiratory: normal respiratory effort, lungs clear to auscultation Cardiovascular: irreg s1 s2 HR 100-110 Gastrointestinal (Abdomen): normal bowel sounds, soft, nontender, no hepatosplenomegaly Musculoskeletal: venous insufficiency changes of the skin but no CC Genitourinary: Indwelling patiño catheter _ (1) Sepsis Sepsis type: sepsis due to unspecified organism Qualified Code(s): A41.9 - Sepsis, unspecified organism (2) Rhabdomyolysis Encounter type: initial encounter Rhabdomyolysis type: traumatic Qualified Code(s): T79.6XXA - Traumatic ischemia of muscle, initial encounter (3) Pressure ulcer, stage II, skin breakdown Pressure injury location: buttock Laterality: unspecified laterality Qualified Code(s): L89.302 - Pressure ulcer of unspecified buttock, stage 2
[2018-06-17] MEDS ORDERED: POTASSIUM PHOS 3 MMOL/1 ML INFUSION IV STA (11:18)
--- NOTE | 2018-06-17 11:39 | Hospitalist Progress Note ---
Date of Service June 17, 2018 Assessment & Plan (1) Sepsis: Resolved, remained hemodynamically stable, Acute renal failure, hypertension, lactic acidosis: Resolved with IV fluid resuscitation Urine culture: Growing gram-negative bacilli Patient is continued with broad-spectrum antibiotic IV cefepime, IV vancomycin ( prior history of enterococcus UTI) will downgrade antibiotic once urine culture and sensitivity is available ID evaluation requested, appreciate input Presented with severe sepsis: Meets criteria: Tachycardia A. fib RVR, acute renal failure, hypotension, elevated lactic acid >2 Acute renal failure Source of infection: Complicated UTI, cystitis. With chronic indwelling Patiño catheter PT responded well to IV fluids, Blood pressure stabilized, did not require any pressor supports Repeat lactic acid in 4-hour shows normalization after adequate hydration Patient was initially admitted to ICU for critical illness Appreciate input/help from certified coder Stable to be transferred out of ICU to telemetry (2) Acute urinary retention: Secondary to morbid obesity has chronic indwelling Foely for last 2-3 yrs follows with Urology in [place] and Dr Priscilla Zhang locally presented to ER with urinary retention due to blocked Patiño (due to significant amount of debris/pus )-causing severe lower abdomen /suprapubic pain CT abdomen /pelvis 06/16/2018 1. Wall thickening of the urinary bladder with extensive perivesicular stranding suggests acute cystitis. Correlate with urinalysis. There is an associated diverticulum noted about the urinary bladder dome. ER unable to flush Patiño catheter Urology Dr Zhang consulted -appreciate input pt evaluated by Urology in ER pt had 16 F catheter which was occluded by debri and pus , Cathter was replaced by Dr Zhang - a 20 F catheter placed , draining pus /concentrated Urine pt reports of significant relief of abdominal discomfort started on broad spectrum abx for severe Cystis/complicated UTI /sepsis Patient had adequate urine output overnight, Draining urine improved to cloudy, less in amount of debris in Patiño bag History of recurrent urinary tract infection, [place] chronic indwelling Patiño Patient will benefit with chronic suppression antibiotic therapy-we will discuss with ID and urology (3) Atrial fibrillation with RVR: History of chronic A. fib, Not a anticoagulation candidate for history of GI bleed/gastric ulcer, groin hemangioma Presented with rapid A. fib RVR heart rate in 140 Secondary to physiological response sepsis/dehydration Patient did not take a.m. med-on Lopressor 200 mg daily Oral beta-john resumed, patient treated with aggressive IV fluid resuscitation per sepsis protocol started on broad-spectrum antibiotic pt is continued with IV hydration Appreciate input from cardiology Heart rate improved after IV hydration, correction of dehydration ( ECHO shows significant vol depletion with hyperdynamic EF >70% Does not have any intrinsic cardiac cause leading to arrhythmia No evidence of acute coronary event Mild elevation of troponin possibly secondary to rapid A. fib, demand ischemia, type II non-ST elevated DC Transthoracic echo: 06/16/2018 Study is technically difficult but adequate for referral indication. A. fib with rapid ventricular response was present during the echocardiogram. There is mild concentric left ventricular hypertrophy. Left ventricular cavity is small and underfilled No regional wall motion abnormalities noted Qualitative left ventricular ejection fraction more than 70% hyperdynamic Right ventricle is hyperdynamic Aortic valve is mildly calcified Aortic stenosis is absent The aortic root was not visualized well enough to allow measurements, the proximal ascending aorta was mildly dilated with diameter of 4 cm Patient is continued with home dose beta-john : Toprol-XL 200 mg p.o. daily Aspirin 81 mg daily is for stroke prophylaxis started by cardiology Heart rate currently rate controlled A. fib Patient is stable to be transferred out of intensive care unit (4) Rhabdomyolysis: due to fall /prolong immobilization//was on floor for apprx 5 hrs presented with elevated CPK > 4000k CIERRA Improved after aggressive IV fluid resuscitation 30ml/kgbw -per sepsis protocol Patient received approximately 2.5 mL IV fluids overnight repeat Lab shows -improved CPK [id number] with resolution of CIERRA (5) Pressure ulcer, stage II, skin breakdown: present on admission follows with Wound care clinic wound care consulted (6) Scrotal varicose veins: follows with wound care -consulted ordered for off loading , change of position OOB to chair when able (7) Ulcer of scrotum: present on admission -chronic due to morbid obesity , pt stays in his lift chair whole day pt was asked to change position , off loading by wound care clinic for healing of pressure sore no drainage wound noted wound care consulted ordered for off loading change of position (8) Diabetic toe ulcer: present on admission Left 2nd toe -tip appears to be Necrotic follows with Podiatry Dr Padilla Arauz Podaitry Dr Arauz consulted appreciate input History of code: Shows possible osteomyelitis of second toe CT of foot ordered by podiatry (9) Hypertension: Blood pressures remained stable overnight after high hydration beta john : Lopressor: Toprol XL 200 mg daily resumed , on admission presented with rapid afib RVR Losartan resumed as creatinine /renal function back to baseline (10) Diabetes: Type 2 DM with CKD stage 3 /diabetic toe ulcer presented with hyperglycemia due to infection /sepsis insulin SSI and Basal bolus pharmacy consulted for glycemic management -appreciate input Order to check hemoglobin A1c (11) Chronic diastolic CHF (congestive heart failure): presented with hypovolumia /dehydration ECHO shows : flattend IVC , Hyperdynamic LV , EF > 70% Received aggressive fluid resuscitation Patient appears to be euvolemic Heart rate/blood pressure stabilized Losartan resumed (12) Obesity, morbid, BMI 40.0-49.9: BMI 40. 7 causing multiple co morbidities limited mobility , leading pressure sore in sacral and scrotal area urinary retention /bladder outlet obstruction requiring chronic indwelling patiño catheter /recurrent UTI Dietitian consulted -help with guideline to pt and family -low calorie intake / healthy diet PT/OT ordered Cussed with , wants to consider rehab after discharge from [facility] (13) Acute renal failure superimposed on stage 3 chronic kidney disease: Result with IV fluids Creatinine back to baseline, GFR more than 70 due to severe sepsis /dehydration cont IVF diuretics kept on hold avoid NSAID's /contrast studies , nephrotoxins (14) Chronic indwelling Patiño catheter: (15) Complicated UTI (urinary tract infection): Presented with Patiño draining urine /pus severe cystitis /complicated UTI due to chronic patiño hx of recurrent UTI prior cultures growth : E .coli -martinez sensitive morgenella enterococci ordered for Cefepime /Vancomycin follow urine culture ID eval requested -appreciate input Patient will benefit with chronic suppressive antibiotic therapy/we will discussed with ID CODE STATUS : full code DVT PROPHYLAXIS : high risk morbid obesity , bed bound /severe sepsis ordered Sub q heparin DISPOSITION ; Stable to be transferred out of the ICU he can be out of bed to chair as tolerated, PT OT eval requested lives at home with spoke with patient's Kellee Deleon: Phone number [phone]: At baseline patient able to walk with rolling walker, able to go to bathroom, take shower is concerned that patient is functionally significantly declined, wants referral to rehab after discharge from hospital social service consulted for discharge planning Subjective Patient seen in ICU room 110 Awake and alert, appears to be more comfortable/conversing appropriately/ confusion noted complains of dry heaving, epigastric discomfort, abdominal bloating Given dose of as needed Zofran, Phenergan with minimum improvement Had significant relief of symptoms with GI cocktail(Maalox plus lidocaine) Patient's vitals remained stable overnight, afebrile Heart rate improved, rate controlled A. fib Received approximately 3 L of fluids in past 24 hours, with adequate urine output Patiño draining cloudy urine Physical Exam 2 Vital Signs (Past 24 Hours): Last Vital Signs Temp 36.5 C 06/17/18 08:00 Pulse 110 H 06/17/18 09:51 Resp 19 06/17/18 09:00 BP 144/92 H 06/17/18 09:51 Pulse Ox 91 06/17/18 09:00 Constitutional: + ill appearing and + morbidly obese ENMT: external ear and nose normal, oropharynx normal Neck: trachea midline, no thyromegaly Respiratory: no respiratory distress, no labored breathing, does not use accessory muscles and no cough Auscultation: + diminished lung sounds ( Difficult auscultation secondary to body habitus) Cardiovascular: Rate/Rhythm: + tachycardic (Heart rate 90-100 A. fib); + abnormal rhythm (Chronic A. fib) Vessels: + dorsalis pedis pulses abnormal Extremities: + edema (+2 bilateral pitting edema); + abnormal capillary refill (Poor capillary refill) Gastrointestinal (Abdomen): Inspection/Auscultation: + abdomen distended Percussion/Palpation: abdomen soft; abdomen nontender Musculoskeletal: Head/Neck/Chest: normocephalic and head atraumatic Spine: + buttock ecchymosis (Stage II buttock wound) and + sacral erythema (Stage II sacral pressure ulcer, scrotal edema with cyanosis) Extremities: + lower extremity abnormal to inspection (Bilateral 2-3+ edema with chronic venous stasis changes, left second toe tip area necrotic, no active drainage noted) Bilateral and + foot abnormality (Left second toe, necrotic, dry open wound present) Left Neurologic: PERRL, EOMI, accommodation nl, no face palsy, no dysarthria Psychiatric: Orientation: alert, oriented to person, oriented to place and cooperative _ (1) Pressure ulcer, stage II, skin breakdown Laterality: unspecified laterality Pressure injury location: buttock Qualified Code(s): L89.302 - Pressure ulcer of unspecified buttock, stage 2 (2) Diabetes Chronic kidney disease stage: Diabetes mellitus complication detail: with foot ulcer Diabetes mellitus complication status: with skin complications Diabetes mellitus assistant terminal manager insulin use: unspecified senior living insulin use status Diabetes mellitus macular edema: Diabetes mellitus type: type 2 Diabetic retinopathy severity: Laterality: Proliferative retinopathy type: Qualified Code(s): E11.621 - Type 2 diabetes mellitus with foot ulcer; L97.509 - Non-pressure chronic ulcer of other part of unspecified foot with unspecified severity (3) Rhabdomyolysis Encounter type: initial encounter Rhabdomyolysis type: traumatic Qualified Code(s): T79.6XXA - Traumatic ischemia of muscle, initial encounter (4) Acute renal failure superimposed on stage 3 chronic kidney disease Acute renal failure type: unspecified Qualified Code(s): N17.9 - Acute kidney failure, unspecified; N18.3 - Chronic kidney disease, stage 3 (moderate) (5) Sepsis Sepsis type: sepsis due to unspecified organism Qualified Code(s): A41.9 - Sepsis, unspecified organism (6) Diabetic toe ulcer Diabetes mellitus type: type 2 Laterality: left Non-pressure ulcer stage: unspecified non-pressure ulcer stage Qualified Code(s): E11.621 - Type 2 diabetes mellitus with foot ulcer; L97.529 - Non-pressure chronic ulcer of other part of left foot with unspecified severity (7) Hypertension Hypertension type: unspecified Qualified Code(s): I10 - Essential (primary) hypertension
[2018-06-17] MEDS ORDERED: POTASSIUM PHOSPHATE 30 MMOL in SODIUM CHLORIDE 0.9% 500 ML IV ONE (12:00)
[2018-06-17] MEDS ORDERED: ALUMINUM/MAGNESIUM/SIMETH (MAALOX MAX) 30 ML UDC PO PRN (12:03)
[2018-06-17] MEDS ORDERED: SIMETHICONE 80 MG CHEW PO PRN (12:04)
[2018-06-17] MEDS ORDERED: SIMETHICONE 80 MG CHEW PO ONE (12:09)
[2018-06-17] MEDS ORDERED: MAGNESIUM HYDROXIDE SUSP 30 ML UDC PO PRN (12:10)
[2018-06-17] MEDS ORDERED: POLYETHYLENE (MIRALAX) 17 GM PACK PO PRN (12:10)
[2018-06-17] MEDS ORDERED: LACTATED RINGER'S 1,000 ML IV SCH (12:30)
[2018-06-17] MEDS: ALUMINUM/MAGNESIUM SUSP 72 ML, LIDOCAINE HCL VISCOUS 2% 24 ML, BARCODE IDENTIFIER 1 EA PO PRN (12:58)
[2018-06-17] MEDS: PANTOprazole 40 MG in SYRINGE 0 ML IV SCH ×2 (12:58→20:13)
[2018-06-17] MEDS: DOCUSATE SODIUM 100 MG CAP PO SCH ×2 (12:59→20:13)
--- NOTE | 2018-06-17 16:27 | Podiatry Consultation ---
Date of Consultation June 17, 2018 Assessment & Plan (1) Morbid obesity: Present on Admission?: Yes (2) Chronic diastolic CHF (congestive heart failure): Present on Admission?: Yes (3) Diabetes: Diabetes mellitus type: type 2 Diabetes mellitus half-way insulin use: unspecified termite helper insulin use status Diabetes mellitus complication status: with skin complications Diabetes mellitus complication detail: with foot ulcer Diabetic retinopathy severity: Proliferative retinopathy type: Diabetes mellitus macular edema: Laterality: Chronic kidney disease stage: Qualified Code(s): E11.621 - Type 2 diabetes mellitus with foot ulcer; L97.509 - Non-pressure chronic ulcer of other part of unspecified foot with unspecified severity Present on Admission?: Yes (4) Hypertension: Hypertension type: unspecified Qualified Code(s): I10 - Essential (primary) hypertension Present on Admission?: Yes (5) Diabetic toe ulcer: Left 2nd digit is concerning for osteomyelitis on radiographs however clinical picture does not appear to show an acute infection. He does have leukocytosis on admission but his digit is not likely the source. Regardless as he is currently in house I would like to work up the digit as I was intending to do this as an outpatient. A CT was ordered and is pending. I have also ordered duplex arterial US to r/o any significant PAD. If osteomyelitis is present his options will be for distal symes amputation of digit vs 6 weeks IV antibiotics. Definitive plan will be put in place once results are obtained. If PAD is present on duplex arterial US, I would recommend a vascular surgery vs interventional cardiology consultation. Further recommendations pending results. Thank you for the consultation and allowing me to take part iin this patient's care. Diabetes mellitus type: type 2 Laterality: left Non-pressure ulcer stage: unspecified non-pressure ulcer stage Qualified Code(s): E11.621 - Type 2 diabetes mellitus with foot ulcer; L97.529 - Non-pressure chronic ulcer of other part of left foot with unspecified severity Present on Admission?: Yes (6) Sepsis: Sepsis type: sepsis due to unspecified organism Qualified Code(s) : A41.9 - Sepsis, unspecified organism Present on Admission?: Yes (7) Acute renal failure superimposed on stage 3 chronic kidney disease: Acute renal failure type: unspecified Qualified Code(s): N17.9 - Acute kidney failure, unspecified; N18.3 - Chronic kidney disease, stage 3 ( moderate) Present on Admission?: Yes History of Present Illness Attending Physician: Kanwal Trotter MD This is a 77 yo male who is well known to me as an outpatient for his left 2nd digital ulceration. Recently seen in my office with mild concern for osteomyelitis of the distal phalanx. An outpatient CT was ordered however he was most recently admitted for urosepsis. He has been medically stabilized at this point and is seen on the floor resting in bed. His is present for the exam. He is resting at the time of my visit and no ROS was able to be obtained. Allergies Allergy/AdvReac Type Severity Reaction Status Date / Time metronidazole Allergy Severe see below Verified 06/16/18 03:51 amoxicillin Allergy Intermediate rash Verified 06/16/18 03:51 Home Medications Home Medications Medication Instructions Recorded Confirmed Type Lactobacillus acidophilus 10,000 mmu cells PO DAILY 06/16/18 06/16/18 History [Acidophilus] aspirin 81 mg PO DAILY 06/16/18 06/16/18 History digoxin 125 mcg PO DAILY 06/16/18 06/16/18 History ferrous sulfate 325 mg PO BID 06/16/18 06/16/18 History finasteride 5 mg PO DAILY 06/16/18 06/16/18 History furosemide 20 mg PO DAILY 06/16/18 06/16/18 History hydrocodone-acetaminophen 1 tab PO BID PRN 06/16/18 06/16/18 History losartan 50 mg PO DAILY 06/16/18 06/16/18 History metformin 500 mg PO TIDM 06/16/18 06/16/18 History metoprolol succinate 200 mg PO DAILY 06/16/18 06/16/18 History pantoprazole 40 mg PO BID 06/16/18 06/16/18 History potassium chloride 10 meq PO DAILY 06/16/18 06/16/18 History tramadol 50 mg PO Q6 PRN 06/16/18 06/16/18 History Patient History Medical History Sepsis (Chronic) Acquired buried penis (Chronic) BPH without urinary obstruction (Chronic) Benign hypertension (Chronic) Chronic diastolic CHF (congestive heart failure) (Chronic) DM (diabetes mellitus), type 2, uncontrolled w/ophthalmic complication (Chronic) Diverticulosis of colon (without mention of hemorrhage) (Chronic) Exertional dyspnea (Chronic) Gastric ulcer with hemorrhage but without obstruction (Chronic) H/O Clostridium difficile infection (Chronic) Hemangioma of skin (Chronic) History of chronic atrial fibrillation (Chronic) Morbid obesity (Chronic) JUAN MANUEL (obstructive sleep apnea) (Chronic) Symptomatic anemia (Chronic) Urinary retention (Chronic) Social History Current Living Situation: Spouse Other Information That Helps Us Care for You: No Feels Safe at Home: Yes Safety Concerns: Feels Safe At This Time Smoking Status: Never smoker Do You Dip or Chew Tobacco: No Second Hand Exposure: No Tobacco Cessation Education Requested by Patient: No Hx Alcohol Use: No Hx Substance Use: No Beliefs That Will Affect Care: None Preferred Language: Swedish 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 Ability: Effective Dental Laboratory Assistant Required: No Physical Exam 2 Vital Signs (Past 24 Hours): Last Vital Signs Temp 37.1 C 06/17/18 15:41 Pulse 96 H 06/17/18 15:41 Resp 18 06/17/18 15:41 BP 129/82 06/17/18 15:41 Pulse Ox 95 06/17/18 15:07 His is asleep at bedside on exam. His sensation is intact to light touch but protective sensation is absent as previously noted as an outpatient. He has non palpable pulses and trophic skin. No edema to the foot or ankle is noted. The left 2nd digit displays a stable eschar at site of previous wound with mild hyperkeratotic tissue. Radiographs are concerning for osteomyelitis. There is no calor, edema, purulence or malodor to the digit. Erythema is present but resolves with elevation of the foot.
[2018-06-17] MEDS: DIGOXIN 0.125 MG TAB PO SCH (16:35)
[2018-06-17] MEDS: HYDROCODONE/ACETAMOPHEN 5/325MG TAB PO PRN (16:55)
[2018-06-17] MEDS: FERROUS SULFATE 325 MG TAB PO SCH (20:14)
[2018-06-17] MEDS: ACETAMINOPHEN 1000 MG/100 ML IV IV PRN (20:23)
[2018-06-18] MEDS: ZOLPIDEM TARTRATE 5 MG TAB PO PRN (00:12)
[2018-06-18] MEDS ORDERED: VANCOMYCIN TROUGH ONE (04:30)
[2018-06-18 05:31] LABS: Basophils # (auto) 0.02 K/uL (0-0.2); Basophils % (auto) 0.1 %; Eosinophils # (auto) 0.12 K/uL (0-0.5); Eosinophils % (auto) 0.8 %; Hematocrit (blood only) 42.6 % (42-52); Hemoglobin 13.7 g/dL (14.0-18.0); Immature Granulocytes # (auto) 0.08 K/uL (0.00-0.02); Immature Granulocytes % (auto) 0.5 %; Lymphocytes # (auto) 1.07 K/uL (1.2-3.4); Lymphocytes % (auto) 7.3 %; Mean Corpuscular Hgb Conc 32.2 g/dL (32-36); Mean Corpuscular Volume 90.1 fL (80-100); Monocytes # (auto) 1.03 K/uL (0.11-0.59); Neutrophils # (auto) 12.35 K/uL (1.4-6.5); Neutrophils % (auto) 84.3 %; Platelet Count 226 K/uL (130-400); RDW Coefficient of Variation 16.2 % (11.5-14.5); RDW Standard Deviation 53.4 fL (36.4-46.3); Red Blood Count 4.73 M/uL (4.7-6.1); White Blood Count 14.67 K/uL (4.8-10.8)
[2018-06-18] MEDS: VANCOMYCIN HCL 1,500 MG in SODIUM CHLORIDE 0.9% 500 ML IV SCH (06:03)
[2018-06-18] MEDS: HEPARIN SOD 5,000 UNIT/0.5 ML VIAL SQ SCH ×3 (06:04→21:21)
[2018-06-18 06:09] LABS: Alanine Aminotransferase 20 U/L (12-78); Albumin Globulin Ratio 0.5 (0.9-2); Albumin Level 2.1 gm/dl (3.4-5.0); Alkaline Phosphatase 51 U/L (45-117); BUN Creatinine Ratio 17.1 (10-20); Bilirubin,Total 0.7 mg/dl (0.1-1); Blood Urea Nitrogen 20 mg/dl (7-18); Calcium 7.6 mg/dl (8.5-10.1); Carbon Dioxide 31 mmol/L (21-32); Chloride 105 mmol/L (98-107); Creatinine Clr Calc Pharmacy 75.4 ml/min; Est GFR (African American) 69.3; Est GFR (Non-African American) 59.8; Globulin 4.6 gm/dl (2.5-4.0); Glucose 143 mg/dl (70-99); Phosphorus 2.2 mg/dl (2.5-4.9); Sodium 138 mmol/L (136-145); Total Protein 6.7 gm/dl (6.4-8.2)
[2018-06-18 06:27] LABS: Estimated Average Glucose 166 mg/dl
--- NOTE | 2018-06-18 06:44 | Ultrasound Report ---
US arterial duplex LE BI HISTORY: 77 years-old Male Necrotic toe ulceration peripheral arterial disease with left lower leg t oe ulceration COMPARISON: CT of the left lower leg 06/17/2018 TECHNIQUE: Multiple real-time sonographic images of the bilateral lower extremity arterial structures were obtained assessing grayscale appearance, color and spectral flow. Segmental blood pressures wer e also obtained. FINDINGS: Limited study secondary to patient body habitus. RIGHT: Brachial index of 94. Posterior tibial of 165 (1.76). Dorsalis pedis of 154 (1.64). Patent common femoral, profunda femoris, superficial femoral, popliteal, posterior tibial, peroneal a nd dorsalis pedis arteries with mostly triphasic waveforms noted. Scattered areas of calcified and no ncalcified plaque formation noted. No elevated peak systolic velocities. LEFT: Brachial index of 90. Posterior tibial of 159 (1.69). Dorsalis pedis of 151 (1.61). Patent common femoral, profunda femoris, superficial femoral, popliteal, posterior tibial, peroneal a nd dorsalis pedis arteries with mostly triphasic waveforms noted. Scattered areas of calcified and no ncalcified plaque formation noted. No elevated peak systolic velocities. IMPRESSION: 1. Peripheral arterial disease without evidence of arterial occlusion or significantly elevated peak systolic velocities to suggest high-grade stenosis. 2. Segmental pressures as above. The above report was generated using voice recognition software. It may contain grammatical, syntax o r spelling errors. Electronically signed by: Brandin Kruse M.D. 06/18/2018 6:43 AM
--- NOTE | 2018-06-18 06:55 | CT Scan Report ---
CT lower leg LT wo con HISTORY: 77 years-old Male Left great toe necrosis, R/O osteomylitis chronic soft tissue ulceration of the left great toe with tissue necrosis. Clinical concern for possible acute osteomyelitis. COMPARISON: None available TECHNIQUE: Multiple axial CT images of the left lower leg were obtained without the use of IV contras t. Coronal and sagittal reformatted images were obtained from the axial data set and were submitted f or review. A dose lowering technique was used consistent with the principals of ALA. FINDINGS: Soft tissue windows demonstrate a partially imaged small joint effusion of the knee. Peripheral arter ial calcifications are noted extending from the knee through the forefoot. Mild subcutaneous edema of the knee, lower leg and foot. Moderate atrophy of the lower extremity musculature, notably the lower aspect of the lateral head-anemia. No drainable fluid collection. Bone windows demonstrate tricompartmental osteoarthritis about the knee. No acute fracture or disloca tion identified. Degenerative changes are noted about the hindfoot, midfoot and forefoot. Large enthe sophytes noted about the calcaneus. Moderate degenerative changes noted about the interphalangeal michelle nts. Mild to moderate degenerative changes of the first MTP joint. Bipartite medial hallux sesamoid. No definite erosive changes of the first digit identified to suggest acute osteomyelitis. No periosti tis. IMPRESSION: 1. Mild subcutaneous edema about the knee, lower leg, foot and ankle. No drainable fluid collection. 2. No acute fracture, dislocation or definite bony erosive changes to suggest acute osteomyelitis. 3. Degenerative changes as above. 4. Peripheral arterial disease. 5. Small knee joint effusion. The above report was generated using voice recognition software. It may contain grammatical, syntax o r spelling errors. Electronically signed by: Brandin Kruse M.D. 06/18/2018 6:54 AM
[2018-06-18 07:21] LABS: Potassium 4.5 mmol/L (3.5-5.1)
[2018-06-18 07:29] LABS: Magnesium 2.7 mg/dl (1.8-2.4)
--- NOTE | 2018-06-18 08:43 | Consultation ---
Date of Consultation June 18, 2018 Assessment & Plan (1) Peripheral arterial disease: Pt's arterial US indicates mild arterial disease in BLE. Pulses easily palpable. No indications for vascular surgical intervention at this time. Please call if needed. Present on Admission?: Yes (2) Diabetic toe ulcer: No vascular surgical intervention necessary at this time. Plan for toe per Podiatry. Diabetes mellitus type: type 2 Laterality: left Non-pressure ulcer stage: unspecified non-pressure ulcer stage Qualified Code(s): E11.621 - Type 2 diabetes mellitus with foot ulcer; L97.529 - Non-pressure chronic ulcer of other part of left foot with unspecified severity Present on Admission?: Yes History of Present Illness Reason for Consultation: LLE necrotic toe Attending Physician: Kanwal Trotter MD History of Present Illness Mr Deleon is a 77 yo m with multiple medical problems, including DMII, CKD, A fib , sacral decubitus, morbid obesity, HTN, admitted with sepsis and rhabdomyolysis after a fall at home, seen in consultation today for a necrotic L 2nd to ulceration and possible associated PAD. Pt states developed the wound approx 2 weeks ago. Denies pain in toe. Admits fatigue. Denies hx of PAD, fever, chills, chest pain, SOB, abd pain, N/V, rest pain, claudication, other complaints. Has been seeing Dr Arauz of podiatry for the toe. Arterial US demonstrates mild diffuse arterial disease without any focal stenosis. Allergies Allergy/AdvReac Type Severity Reaction Status Date / Time metronidazole Allergy Severe see below Verified 06/16/18 03:51 amoxicillin Allergy Intermediate rash Verified 06/16/18 03:51 Home Medications Home Medications Medication Instructions Recorded Confirmed Type Lactobacillus acidophilus 10,000 mmu cells PO DAILY 06/16/18 06/16/18 History [Acidophilus] aspirin 81 mg PO DAILY 06/16/18 06/16/18 History digoxin 125 mcg PO DAILY 06/16/18 06/16/18 History ferrous sulfate 325 mg PO BID 06/16/18 06/16/18 History finasteride 5 mg PO DAILY 06/16/18 06/16/18 History furosemide 20 mg PO DAILY 06/16/18 06/16/18 History hydrocodone-acetaminophen 1 tab PO BID PRN 06/16/18 06/16/18 History losartan 50 mg PO DAILY 06/16/18 06/16/18 History metformin 500 mg PO TIDM 06/16/18 06/16/18 History metoprolol succinate 200 mg PO DAILY 06/16/18 06/16/18 History pantoprazole 40 mg PO BID 06/16/18 06/16/18 History potassium chloride 10 meq PO DAILY 06/16/18 06/16/18 History tramadol 50 mg PO Q6 PRN 06/16/18 06/16/18 History Patient History Medical History Sepsis (Chronic) Acquired buried penis (Chronic) BPH without urinary obstruction (Chronic) Benign hypertension (Chronic) Chronic diastolic CHF (congestive heart failure) (Chronic) DM (diabetes mellitus), type 2, uncontrolled w/ophthalmic complication (Chronic) Diverticulosis of colon (without mention of hemorrhage) (Chronic) Exertional dyspnea (Chronic) Gastric ulcer with hemorrhage but without obstruction (Chronic) H/O Clostridium difficile infection (Chronic) Hemangioma of skin (Chronic) History of chronic atrial fibrillation (Chronic) Morbid obesity (Chronic) JUAN MANUEL (obstructive sleep apnea) (Chronic) Symptomatic anemia (Chronic) Urinary retention (Chronic) Social History Current Living Situation: Spouse Other Information That Helps Us Care for You: No Feels Safe at Home: Yes Safety Concerns: Feels Safe At This Time Smoking Status: Never smoker Do You Dip or Chew Tobacco: No Second Hand Exposure: No Tobacco Cessation Education Requested by Patient: No Hx Alcohol Use: No Hx Substance Use: No Beliefs That Will Affect Care: None Preferred Language: Bulgarian 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 Ability: Effective 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 Review of Systems Constitutional: + fatigue and + malaise; no fever, no chills, no sweats and no weight loss Eyes: no blind spots and no problem reported Ear, Nose, Mouth, Throat: no hearing loss and no sore throat Respiratory: no cough, no dyspnea, no dyspnea on exertion and no hemoptysis Cardiovascular: no chest pain, no palpitations, no syncope, no claudication and no problem reported Gastrointestinal: no abdominal pain, no early satiety, no nausea, no vomiting, no cramping, no change in bowel habits, no diarrhea/loose stools and no blood in stools has chronic indwelling patiño catheter Musculoskeletal: no back pain, no joint pain, no swelling and no muscle weakness Integumentary: + wounds (L 2nd toe) and + erythema; no rash Neurologic: + generalized weakness; no paralysis, no loss of sensation, no tingling, no numbness, no paresthesia, no seizure-like activity, no syncope, no headache(s) and no confusion Psychiatric: as per Subjective / HPI Hematologic / Lymphatic: no easy bleeding, no easy bruising, no coagulopathy, no night sweats and no unexplained weight loss Physical Exam 2 Vital Signs (Past 24 Hours): Last Vital Signs Temp 36.9 C 06/18/18 06:46 Pulse 87 06/18/18 06:46 Resp 17 06/18/18 06:46 BP 138/76 06/18/18 06:46 Pulse Ox 94 06/18/18 06:46 Constitutional: WD/WN, vitals as above well developed, well nourished, + ill appearing, + morbidly obese, well groomed, + disheveled, cooperative, comfortable and + lethargic Eyes: PERRL, conjunctivae normal, anicteric sclerae EOM intact bilaterally ENMT: external ear and nose normal, oropharynx normal Ears: no hearing impairment Nose: no nasal discharge Throat: no posterior oropharynx abnormality Neck: trachea midline, no thyromegaly no tracheal deviation, no neck crepitus and neck nontender Respiratory: normal respiratory effort, lungs clear to auscultation able to speak in complete sentences; does not use accessory muscles, no cough, not tachypneic and no audible wheezes Auscultation: lungs clear to auscultation bilaterally and + diminished lung sounds; no rhonchi and no wheezes Cardiovascular: Heart Sounds: no gallop and no murmur Vessels: + carotid bruit, normal peripheral pulses, femoral pulses present, posterior tibial pulses present, dorsalis pedis pulses present, brachial pulses present and radial pulses present; no femoral bruit Extremities: normal capillary refill ; no edema Chest (Breasts): Chest: normal inspection of chest Gastrointestinal (Abdomen): normal bowel sounds, soft, nontender, no hepatosplenomegaly Inspection/Auscultation: abdomen normal to inspection, + abdomen distended (obese) and normal bowel sounds Percussion/Palpation: abdomen soft; abdomen nontender, no guarding, abdomen not rigid and no abdominal mass Musculoskeletal: no cyanosis or clubbing, extremities motor strength 5/5 Head/Neck/Chest: normocephalic, head atraumatic and neck supple; no chest tenderness Extremities: extremities normal to inspection; full ROM of extremities, + abnormal strength, no chronic stasis changes and no clubbing Skin: no rashes, warm and dry normal turgor, + ulcer (L 2nd toe bulbous, with erythema and eschar to tip. No odor or discharge noted. ), + induration, + erythema and + eschar; turgor not decreased, no rashes, no wound, no dry skin , no excoriations, no mottling and no pallor Neurologic: moves all extremities and awake; no focal motor deficits, not confused and not obtunded Speech / Cognition: no expressive aphasia and no receptive aphasia Motor/Sensory: no tremor and no sensory deficit Cranial Nerves: EOM intact bilaterally and normal facial strength Psychiatric: Orientation: alert, oriented x 3, oriented to person, oriented to place, oriented to time and cooperative Apperance: + did not appear stated age Affect: euthymic affect, + depressed affect and + flat affect Thought Process: goal directed thought process, linear/logical thought process and clear/coherent thought process Cognition: recent memory grossly intact, remote memory grossly intact, attention grossly intact and language grossly intact Estimated Intelligence: average estimated intelligence Lymphatic: no lymphedema
--- NOTE | 2018-06-18 09:53 | Infectious Disease Progress Nt ---
Date of Service June 18, 2018 Assessment & Plan (1) Complicated UTI (urinary tract infection): will change to rocephin 2 g daily for now, when eating - can change to keflex 500mg bid x 14 days. Subjective pt transferred from ICU. afebrile. remains on cefepime and vanco. feeling better today, wbc 14, creat 1.1. Had ct legs yesterday, no evidence of cellulitis or osteo. 06/16 blood culture negative to date x 2, urine culture growing martinez sensitive proteus. sputum cuulture obtained yesterday, pending. no cough, sob, cp, n/v/d/abd pain, states he is hungry. all remaining ros reviewed and are negative Physical Exam 2 Vital Signs (Past 24 Hours): Last Vital Signs Temp 36.9 C 06/18/18 06:46 Pulse 87 06/18/18 06:46 Resp 17 06/18/18 06:46 BP 138/76 06/18/18 06:46 Pulse Ox 94 06/18/18 06:46 Constitutional: WD/WN, vitals as above Eyes: PERRL, conjunctivae normal, anicteric sclerae ENMT: external ear and nose normal, oropharynx normal Neck: normal visual inspection Respiratory: normal respiratory effort, lungs clear to auscultation Auscultation: + diminished lung sounds Cardiovascular: RRR, no murmur, no edema Gastrointestinal (Abdomen): normal bowel sounds, soft, nontender, no hepatosplenomegaly Musculoskeletal: no cyanosis or clubbing, extremities motor strength 5/5 Skin: no rashes, warm and dry Psychiatric: A+Ox3, euthymic affect Results & Data Laboratory Results Microbiology 06/16/18 07:10 Urine,Clean Catch Urine Culture - Final Proteus mirabilis 06/16/18 05:05 Blood Blood Culture - Preliminary No growth to date. 06/16/18 03:12 Blood Blood Culture - Preliminary No growth to date. 06/17/18 12:28 Sputum, Expectorated Gram Stain - Final
--- NOTE | 2018-06-18 10:06 | Cardiology Progress Note ---
Date of Service June 18, 2018 Assessment & Plan (1) Chronic atrial fibrillation: Rate controlled on telemetry. Continue Toprol-XL 200 mg and digoxin 125 mcg daily. Anticoagulation discontinued 2016 due to large volume bleeding related to large perineal/scrotal vascular malformation. Diltiazem discontinued in the past due to bradycardia. Present on Admission?: Yes (2) Chronic diastolic heart failure: Lasix on hold. Continue to follow volume status, GFR, electrolytes daily. Plan to restart oral Lasix in the next 24-48 hours. (3) Complicated UTI (urinary tract infection): Antibiotics per internal medicine/urology. (4) Chronic indwelling Baires catheter: Subjective Patient seen and examined at the bedside. Atrial fibrillation with controlled ventricular response on telemetry. Denies chest discomfort or palpitations. Notes intermittent epigastric discomfort when swallowing cold liquid. Denies dysuria. Baires catheter in place. No fevers overnight. White blood cell count trending downward. Review of Systems All systems reviewed & are unremarkable except as noted in HPI & below Physical Exam 2 Vital Signs (Past 24 Hours): Last Vital Signs Temp 36.9 C 06/18/18 06:46 Pulse 87 06/18/18 06:46 Resp 17 06/18/18 06:46 BP 138/76 06/18/18 06:46 Pulse Ox 94 06/18/18 06:46 Physical Exam: General: NAD, AAO x3, Chronically ill, obese. HEENT: Normocephalic. Atraumatic. Conjunctiva pink, no scleral icterus. Neck: No carotid bruits, the carotid upstrokes are brisk. No JVD. No HJR Heart: Irregular rhythm, normal S-1 and S-2 no S-3 or S-4 gallop. No murmurs or rub appreciated. PMI is not displaced. No RV heave. Lungs: Clear bilateral without rales , rhonchi, or wheeze. Abdomen: Normal bowel sounds. Soft. Nontender. No masses or organomegaly. No abdominal bruits. Extremities: No edema. + stasis changes. Pulses: radial=2/4, posterior tibial=2/4. Neuro: Cranial nerves grossly intact. No focal motor deficit.
[2018-06-18] MEDS: PANTOprazole 40 MG in SYRINGE 0 ML IV SCH ×2 (10:20→21:20)
[2018-06-18] MEDS: INSULIN ASPART 100 UNITS/ML 3 ML PEN SC SCH ×4 (10:20→21:15)
[2018-06-18] MEDS: METOPROLOL SUCC 50MG EXT REL TAB PO SCH (10:21)
[2018-06-18] MEDS: LOSARTAN POTASSIUM 50 MG TAB PO SCH (10:21)
[2018-06-18] MEDS: ASPIRIN 81 MG ECTAB PO SCH (10:21)
[2018-06-18] MEDS: LACTOBACILLUS ACIDOPHILUS (FLORANEX) TAB PO SCH (10:21)
[2018-06-18] MEDS: FINASTERIDE 5 MG TAB PO SCH (10:22)
[2018-06-18] MEDS: DOCUSATE SODIUM 100 MG CAP PO SCH ×2 (10:22→21:20)
[2018-06-18] MEDS: FERROUS SULFATE 325 MG TAB PO SCH ×2 (10:22→21:21)
[2018-06-18] MEDS: INSULIN GLARGINE SOLOSTAR 100 UNITS/ML 3 ML PEN SC SCH ×2 (10:23→21:15)
[2018-06-18] MEDS: ALUMINUM/MAGNESIUM SUSP 72 ML, LIDOCAINE HCL VISCOUS 2% 24 ML, BARCODE IDENTIFIER 1 EA PO PRN (10:40)
[2018-06-18] MEDS: HYDROCODONE/ACETAMOPHEN 5/325MG TAB PO PRN (12:26)
[2018-06-18] MEDS: cefTRIAXone SODIUM 2,000 MG in DEXTROSE 5% 50 ML IV SCH (12:27)
[2018-06-18] MEDS: ACETAMINOPHEN 1000 MG/100 ML IV IV PRN (15:07)
--- NOTE | 2018-06-18 17:15 | Hospitalist Progress Note ---
Date of Service June 18, 2018 Assessment & Plan (1) Sepsis: Resolved, remained hemodynamically stable, presented with Acute renal failure, hypertension, lactic acidosis: Resolved with IV fluid resuscitation Urine culture: Martinez sensitive Proteus ID evaluation requested, appreciate input Abx changed to IV rocephin 2 gm daily can be changed to PO Abx prior o DC : Keflex PO 500 mg PO BID X14 days Presented with severe sepsis: Meets criteria: Tachycardia A. fib RVR, acute renal failure, hypotension, elevated lactic acid >2 Acute renal failure Source of infection: Complicated UTI, cystitis. With chronic indwelling Patiño catheter PT responded well to IV fluids, Blood pressure stabilized, did not require any pressor supports Repeat lactic acid in 4-hour shows normalization after adequate hydration Patient was initially admitted to ICU for critical illness Appreciate input/help from stroke coordinator transferred to tele 06/17/18 cont to monitor (2) Lethargy: found to be more sedated today difficult to arouse all sedatives /narcotics D/payton check ABG will need Bipap if evidence of Co2 retention Present on Admission?: No (3) Acute urinary retention: Secondary to morbid obesity has chronic indwelling Foely for last 2-3 yrs follows with Urology in [place] and Dr Priscilla Zhang locally presented to ER with urinary retention due to blocked Patiño (due to significant amount of debris/pus )-causing severe lower abdomen /suprapubic pain CT abdomen /pelvis 06/16/2018 1. Wall thickening of the urinary bladder with extensive perivesicular stranding suggests acute cystitis. Correlate with urinalysis. There is an associated diverticulum noted about the urinary bladder dome. ER unable to flush Patiño catheter Urology Dr Zhang consulted -appreciate input pt evaluated by Urology in ER pt had 16 F catheter which was occluded by debri and pus , Cathter was replaced by Dr Zhang - a 20 F catheter placed , draining pus /concentrated Urine pt reports of significant relief of abdominal discomfort started on broad spectrum abx for severe Cystis/complicated UTI /sepsis Patient had adequate urine output overnight, Draining urine improved to cloudy, less in amount of debris in Patiño bag History of recurrent urinary tract infection, due to chronic indwelling Patiño Patient will benefit with chronic suppression antibiotic therapy-we will discuss with ID and urology (4) Atrial fibrillation with RVR: remains in rate controlled afib Oral beta-john Toprol XL 200 mg daily /Digoxin 125 mcg daily resumed, History of chronic A. fib, Not a anticoagulation candidate for history of GI bleed/gastric ulcer, groin hemangioma Presented with rapid A. fib RVR heart rate in 140 Secondary to physiological response sepsis/dehydration Patient did not take a.m. med-on Lopressor 200 mg daily patient treated with aggressive IV fluid resuscitation per sepsis protocol started on broad-spectrum antibiotic pt is continued with IV hydration Appreciate input from cardiology Heart rate improved after IV hydration, correction of dehydration ( ECHO shows significant vol depletion with hyperdynamic EF >70% Does not have any intrinsic cardiac cause leading to arrhythmia No evidence of acute coronary event Mild elevation of troponin possibly secondary to rapid A. fib, demand ischemia, type II non-ST elevated [place] Transthoracic echo: 06/16/2018 Study is technically difficult but adequate for referral indication. A. fib with rapid ventricular response was present during the echocardiogram. There is mild concentric left ventricular hypertrophy. Left ventricular cavity is small and underfilled No regional wall motion abnormalities noted Qualitative left ventricular ejection fraction more than 70% hyperdynamic Right ventricle is hyperdynamic Aortic valve is mildly calcified Aortic stenosis is absent The aortic root was not visualized well enough to allow measurements, the proximal ascending aorta was mildly dilated with diameter of 4 cm Patient is continued with home dose beta-john : Toprol-XL 200 mg p.o. daily Aspirin 81 mg daily is for stroke prophylaxis started by cardiology Heart rate currently rate controlled A. fib (5) Rhabdomyolysis: due to fall /prolong immobilization//was on floor for apprx 5 hrs presented with elevated CPK > 4000k CIERRA Improved after aggressive IV fluid resuscitation 30ml/kgbw -per sepsis protocol Patient received approximately 2.5 mL IV fluids overnight repeat Lab shows -improved CPK [id number] -> 300 with resolution of CIERRA (6) Pressure ulcer, stage II, skin breakdown: present on admission follows with Wound care clinic wound care consulted (7) Scrotal varicose veins: follows with wound care -consulted ordered for off loading , change of position OOB to chair when able (8) Ulcer of scrotum: present on admission -chronic due to morbid obesity , pt stays in his lift chair whole day pt was asked to change position , off loading by wound care clinic for healing of pressure sore no drainage wound noted wound care consulted ordered for off loading change of position (9) Diabetic toe ulcer: present on admission Left 2nd toe -tip appears to be Necrotic follows with Podiatry Dr Padilla Arauz Podaitry Dr Arauz consulted appreciate input CT of lower ext shows no evidence of osteomyelitis vascular surgery consulted -appreciate input , no surgical intervention needed cont consevative management per podiary PVD : USG of lower ext shows mild arterial occlusive disease bilat appreciate input from vascular surgery : no indication for vascular intervention (10) Hypertension: Blood pressures remained stable overnight after high hydration beta john : Lopressor: Toprol XL 200 mg daily resumed , on admission presented with rapid afib RVR Losartan resumed as creatinine /renal function back to baseline (11) Diabetes: Type 2 DM with CKD stage 3 /diabetic toe ulcer presented with hyperglycemia due to infection /sepsis insulin SSI and Basal bolus pharmacy consulted for glycemic management -appreciate input Order to check hemoglobin A1c (12) Chronic diastolic CHF (congestive heart failure): presented with hypovolumia /dehydration ECHO shows : flattend IVC , Hyperdynamic LV , EF > 70% Received aggressive fluid resuscitation Patient appears to be euvolemic Heart rate/blood pressure stabilized Losartan resumed (13) Obesity, morbid, BMI 40.0-49.9: BMI 40. 7 causing multiple co morbidities limited mobility , leading pressure sore in sacral and scrotal area urinary retention /bladder outlet obstruction requiring chronic indwelling patiño catheter /recurrent UTI Dietitian consulted -help with guideline to pt and family -low calorie intake / healthy diet PT/OT ordered discussed with , wants to consider rehab after discharge from [facility] (14) Acute renal failure superimposed on stage 3 chronic kidney disease: Result with IV fluids Creatinine back to baseline, GFR more than 70 due to severe sepsis /dehydration cont IVF diuretics kept on hold avoid NSAID's /contrast studies , nephrotoxins (15) Chronic indwelling Patiño catheter: (16) Complicated UTI (urinary tract infection): Presented with Patiño draining urine /pus severe cystitis /complicated UTI due to chronic patiño hx of recurrent UTI prior cultures growth : E .coli -martinez sensitive morgenella enterococci ordered for Cefepime /Vancomycin follow urine culture ID eval requested -appreciate input Patient will benefit with chronic suppressive antibiotic therapy/we will discussed with ID CODE STATUS : full code DVT PROPHYLAXIS : high risk morbid obesity , bed bound /severe sepsis ordered Sub q heparin DISPOSITION ; Stable to be transferred out of the ICU he can be out of bed to chair as tolerated, PT OT ethel requested lives at home with spoke with patient's Kellee Deleon: Phone number [phone]: At baseline patient able to walk with rolling walker, able to go to bathroom, take shower is concerned that patient is functionally significantly declined, wants referral to rehab after discharge from hospital social service consulted for discharge planning Subjective more lethergic /sedated today dificult to arouse got Empire approx 1 pm ordered for Stat ABG to asses possible Co2 retention morbid obesity /JUAN MANUEL monitor in tele Physical Exam 2 Vital Signs (Past 24 Hours): Last Vital Signs Temp 36.6 C 06/18/18 16:00 Pulse 78 06/18/18 16:00 Resp 18 06/18/18 16:00 BP 130/64 06/18/18 16:00 Pulse Ox 95 06/18/18 16:00 Constitutional: + ill appearing and + morbidly obese ENMT: external ear and nose normal, oropharynx normal Neck: trachea midline, no thyromegaly Respiratory: no respiratory distress, no labored breathing, does not use accessory muscles and no cough Auscultation: + diminished lung sounds ( Difficult auscultation secondary to body habitus) Cardiovascular: Rate/Rhythm: + abnormal rhythm (Chronic A. fib) Vessels: + dorsalis pedis pulses abnormal Extremities: + edema (+2 bilateral pitting edema); + abnormal capillary refill (Poor capillary refill) Gastrointestinal (Abdomen): Inspection/Auscultation: + abdomen distended Percussion/Palpation: abdomen soft; abdomen nontender Musculoskeletal: Head/Neck/Chest: normocephalic and head atraumatic Spine: + buttock ecchymosis (Stage II buttock wound) and + sacral erythema (Stage II sacral pressure ulcer, scrotal edema with cyanosis) Extremities: + lower extremity abnormal to inspection (Bilateral 2-3+ edema with chronic venous stasis changes, left second toe tip area necrotic, no active drainage noted) Bilateral and + foot abnormality (Left second toe, necrotic, dry open wound present) Skin: + turgor decreased Neurologic: + not awake (drowsy , lethergic , difficult to arouse ) _ (1) Pressure ulcer, stage II, skin breakdown Laterality: unspecified laterality Pressure injury location: buttock Qualified Code(s): L89.302 - Pressure ulcer of unspecified buttock, stage 2 (2) Diabetes Chronic kidney disease stage: Diabetes mellitus complication detail: with foot ulcer Diabetes mellitus complication status: with skin complications 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: unspecified mcc insulin use status Diabetes mellitus macular edema: Diabetes mellitus type: type 2 Diabetic retinopathy severity: Laterality: Proliferative retinopathy type: Qualified Code(s): E11.621 - Type 2 diabetes mellitus with foot ulcer; L97.509 - Non-pressure chronic ulcer of other part of unspecified foot with unspecified severity (3) Rhabdomyolysis Encounter type: initial encounter Rhabdomyolysis type: traumatic Qualified Code(s): T79.6XXA - Traumatic ischemia of muscle, initial encounter (4) Acute renal failure superimposed on stage 3 chronic kidney disease Acute renal failure type: unspecified Qualified Code(s): N17.9 - Acute kidney failure, unspecified; N18.3 - Chronic kidney disease, stage 3 (moderate) (5) Sepsis Sepsis type: sepsis due to unspecified organism Qualified Code(s): A41.9 - Sepsis, unspecified organism (6) Diabetic toe ulcer Diabetes mellitus type: type 2 Laterality: left Non-pressure ulcer stage: unspecified non-pressure ulcer stage Qualified Code(s): E11.621 - Type 2 diabetes mellitus with foot ulcer; L97.529 - Non-pressure chronic ulcer of other part of left foot with unspecified severity (7) Hypertension Hypertension type: unspecified Qualified Code(s): I10 - Essential (primary) hypertension
--- NOTE | 2018-06-18 17:16 | Urology Progress Note ---
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 obesity precludes s/p tube and perineal avms preclude perineal urethrostomy. now upsized to 20 fr catheter responding to abt rhabdo resolving renal insuff cleared w fluids Present on Admission?: Yes Subjective patient was resting sleeping lightly upon my arrival. he wakes up easily. he voices thirst and anbd pain. has poor appetite. got up to chair twice today. patiño draining well urine w proteus, thankfully martinez sensitive. blood cultures no growth. Review of Systems + nausea no emesis, no constipation, no fever, + skin sores, + fatigue, no chest pain. no palpitations felt + cough. no SOB Physical Exam 2 Vital Signs (Past 24 Hours): Last Vital Signs Temp 36.6 C 06/18/18 16:00 Pulse 78 06/18/18 16:00 Resp 18 06/18/18 16:00 BP 130/64 06/18/18 16:00 Pulse Ox 95 06/18/18 16:00 Constitutional: WD/WN, vitals as above + obese and + frail appearing; no acute distress Respiratory: wet cough, weak cough, no tachypnea, Skin: hemosiderin deposits legs, + mild edema legs, Genitourinary: [address] secured to leg strap rt upper thigh and draining medium yellow urine with no debris
[2018-06-18] MEDS: DIGOXIN 0.125 MG TAB PO SCH (18:25)
[2018-06-18 20:29] LABS: HCO3 ABG 27 mmol/L (19-24); Oxygen Saturation ABG 96.1 % (90-95); PCO2 ABG 40 mmHg (35-46); PO2 ABG 78 mm/Hg (80-95); pH ABG 7.45 (7.35-7.45)
[2018-06-18 20:31] LABS: Allen Test Pos (Pos)
[2018-06-19] MEDS: HEPARIN SOD 5,000 UNIT/0.5 ML VIAL SQ SCH ×3 (04:58→21:32)
[2018-06-19] MEDS: ACETAMINOPHEN 1000 MG/100 ML IV IV PRN ×2 (04:58→14:11)
[2018-06-19 06:13] LABS: Hematocrit (blood only) 41.2 % (42-52); Hemoglobin 13.3 g/dL (14.0-18.0); Mean Corpuscular Hgb Conc 32.3 g/dL (32-36); Mean Corpuscular Volume 89.4 fL (80-100); Mean Platelet Volume 10.4 fL (7.4-10.4); Nucleated RBC # (auto) 0.02 K/uL (0-0); Nucleated RBC % (auto) 0.2 %; Platelet Count 216 K/uL (130-400); RDW Coefficient of Variation 16.1 % (11.5-14.5); RDW Standard Deviation 51.9 fL (36.4-46.3); Red Blood Count 4.61 M/uL (4.7-6.1); White Blood Count 10.21 K/uL (4.8-10.8)
[2018-06-19 06:51] LABS: BUN Creatinine Ratio 20.1 (10-20); Calcium 7.7 mg/dl (8.5-10.1); Creatinine Clr Calc Pharmacy 106.5 ml/min; Est GFR (African American) 98.4; Est GFR (Non-African American) 84.9; Magnesium 2.5 mg/dl (1.8-2.4); Potassium 4.1 mmol/L (3.5-5.1)
[2018-06-19] MEDS ORDERED: VANCOMYCIN TROUGH ONE (08:30)
[2018-06-19] MEDS: INSULIN ASPART 100 UNITS/ML 3 ML PEN SC SCH ×4 (08:30→21:31)
[2018-06-19] MEDS: ASPIRIN 81 MG ECTAB PO SCH (08:39)
[2018-06-19] MEDS: LACTOBACILLUS ACIDOPHILUS (FLORANEX) TAB PO SCH (08:39)
[2018-06-19] MEDS: LOSARTAN POTASSIUM 50 MG TAB PO SCH (08:39)
[2018-06-19] MEDS: FERROUS SULFATE 325 MG TAB PO SCH ×2 (08:39→19:29)
[2018-06-19] MEDS: INSULIN GLARGINE SOLOSTAR 100 UNITS/ML 3 ML PEN SC SCH ×2 (08:40→21:30)
[2018-06-19] MEDS: POTASSIUM CHLORIDE 10 MEQ TABCR PO SCH (08:40)
[2018-06-19] MEDS: FUROSEMIDE 20 MG TAB PO SCH (08:40)
[2018-06-19] MEDS: PANTOprazole 40 MG in SYRINGE 0 ML IV SCH ×2 (08:40→19:53)
[2018-06-19] MEDS: FINASTERIDE 5 MG TAB PO SCH (08:40)
[2018-06-19] MEDS: METOPROLOL SUCC 50MG EXT REL TAB PO SCH (08:41)
[2018-06-19] MEDS: DOCUSATE SODIUM 100 MG CAP PO SCH ×2 (08:56→19:29)
[2018-06-19] MEDS: cefTRIAXone SODIUM 2,000 MG in DEXTROSE 5% 50 ML IV SCH (08:56)
--- NOTE | 2018-06-19 11:03 | Cardiology Progress Note ---
Date of Service June 19, 2018 Assessment & Plan (1) Chronic atrial fibrillation: Rate controlled. Continue current medications include Toprol-XL 200 mg and digoxin 125 mcg daily. Anticoagulation discontinued 2017 due to large volume bleeding related to large perineal/scrotal vascular malformation. Diltiazem discontinued in the past due to bradycardia. (2) Chronic diastolic heart failure: Restart Lasix 20 mg daily. Continue to follow volume status, GFR, electrolytes daily. (3) Complicated UTI (urinary tract infection): Antibiotics per internal medicine/urology. (4) Chronic indwelling Baires catheter: Subjective Patient seen and examined at the bedside. Atrial fibrillation with controlled ventricular response on telemetry. Denies chest discomfort or palpitations. Continues to report intermittent epigastric discomfort when swallowing. Baires catheter in place. No fevers overnight. White blood cell count trending downward. Physical Exam 2 Vital Signs (Past 24 Hours): Last Vital Signs Temp 36.9 C 06/19/18 06:51 Pulse 82 06/19/18 06:51 Resp 16 06/19/18 06:51 BP 160/77 H 06/19/18 06:51 Pulse Ox 95 06/19/18 06:51 Physical Exam: General: NAD, AAO x3, morbid obesity. Chronically ill. HEENT : Normocephalic. Atraumatic. Conjunctiva pink, no scleral icterus. Neck: No carotid bruits, the carotid upstrokes are brisk. No JVD. No HJR Heart: Irregular rhythm, normal S-1 and S-2 no S-3 or S-4 gallop. No murmurs or rub appreciated. PMI is not displaced. No RV heave. Lungs: Clear bilateral without rales , rhonchi, or wheeze. Abdomen: Normal bowel sounds. Soft. Nontender. No masses or organomegaly. No abdominal bruits. Extremities: Trace bilateral ankle and pretibial edema with stasis changes. Pulses: radial=2/4. Neuro: Cranial nerves grossly intact. No focal motor deficit.
--- NOTE | 2018-06-19 12:28 | Hospitalist Progress Note ---
Date of Service June 19, 2018 Assessment & Plan (1) Sepsis: Severe Sepsis Present on admission with tachycardia, elevated WBC 23K, Hypotension with elevated lactic acid Urine cx grew proteus mirabilis Received adequate IVF and did not require any pressor ID on board Abx changed to IV rocephin 2 gm daily Will change to Keflex PO 500 mg PO BID X14 days on discharge Stable (2) Lethargy: Possible related to narcotic and sedatives med narcoticon hold Resolved (3) Acute urinary retention: On chronic indwelling Foely for last 2-3 yrs follows with Urology in [place] and Dr Priscilla Zhang locally urinary retention due to blocked Patiño (due to significant amount of debris/ pus ) CT abdomen /pelvis 06/16/2018 showed wall thickening of the urinary bladder with extensive perivesicular stranding suggests acute cystitis. Patiño was changed by urology dr. Zhang where draining pus /concentrated urine removed Resolved (4) Atrial fibrillation with RVR: Present on admission with Afib with HR 140 Hx Chronic Afib In Afib with rate control Continue Toprol XL 200 mg daily /Digoxin 125 mcg daily Not a anticoagulation candidate for history of GI bleed/gastric ulcer, groin hemangioma Cardiology on board ECHO showed Transthoracic echo: 06/16/2018 Study is technically difficult but adequate for referral indication. A. fib with rapid ventricular response was present during the echocardiogram. There is mild concentric left ventricular hypertrophy. Left ventricular cavity is small and underfilled No regional wall motion abnormalities noted Qualitative left ventricular ejection fraction more than 70% hyperdynamic Right ventricle is hyperdynamic Aortic valve is mildly calcified Aortic stenosis is absent The aortic root was not visualized well enough to allow measurements, the proximal ascending aorta was mildly dilated with diameter of 4 cm (5) Rhabdomyolysis: due to fall /prolong immobilization//was on floor for apprx 5 hrs presented with elevated CPK > 4000k Received adequate IVF CK level back to normal Resolved (6) Pressure ulcer, stage II, skin breakdown: present on admission follows with Wound care clinic wound care on board (7) Scrotal varicose veins: follows with wound care -consulted ordered for off loading , change of position OOB to chair when able (8) Ulcer of scrotum: present on admission -chronic due to morbid obesity , pt stays in his lift chair whole day pt was asked to change position , off loading by wound care clinic for healing of pressure sore no drainage wound noted wound care consulted (9) Diabetic toe ulcer: Left 2nd toe -tip appears to be Necrotic follows with Podiatry Dr Padilla Arauz CT of lower ext shows no evidence of osteomyelitis vascular surgery on board, no surgical intervention needed Continue conservative management per podiary USG of lower ext shows mild arterial occlusive disease bilat (10) Hypertension: BP elevated On Toprol XL 200 mg daily, losartan 50mg Lasix 20mg resumed Continue monitor (11) Diabetes: Type 2 DM with CKD stage 3 /diabetic toe ulcer presented with hyperglycemia due to infection /sepsis pharmacy consulted for glycemic management HbA1c 7.4 on 06/17/18 (12) Chronic diastolic CHF (congestive heart failure): presented with hypovolumia /dehydration ECHO shows : flattend IVC , Hyperdynamic LV , EF > 70% Lasix 20mg IV resumed Monitor I/O (13) Obesity, morbid, BMI 40.0-49.9: BMI 40. 7 causing multiple co morbidities limited mobility , leading pressure sore in sacral and scrotal area urinary retention /bladder outlet obstruction requiring chronic indwelling patiño catheter /recurrent UTI Dietitian consulted -help with guideline to pt and family -low calorie intake / healthy diet (14) Acute renal failure superimposed on stage 3 chronic kidney disease: Due to severe sepsis and dehydration Creatinine on admission 1.7 Creatinine back to baseline Avoid NSAID's /contrast studies , nephrotoxins (15) Complicated UTI (urinary tract infection): Hx of recurrent UTI Urine cx grew proteus mirabilis Continue IV rocephin for now. will D/C on keflex Stable CODE STATUS : full code DVT PROPHYLAXIS : On Sub q heparin DISPOSITION ; Will discharge to rehab one medically stable Kellee Deleon: Phone number [phone]: At baseline patient able to walk with rolling walker, able to go to bathroom, take shower g Subjective Pt was seen and examined Sitting in chair with no distress eating lunch Pt said that his only complaint is pain with swallowing food or drinking He said that he does not have any bladder discomfort He said that he does not use oxygen at home Denies any chest pain, palpitation, dizziness and SOB Physical Exam 2 Vital Signs (Past 24 Hours): Last Vital Signs Temp 36.9 C 06/19/18 06:51 Pulse 82 06/19/18 06:51 Resp 16 06/19/18 06:51 BP 160/77 H 06/19/18 06:51 Pulse Ox 95 06/19/18 06:51 Physical Exam: General- No acute distress Head- atraumatic Eyes- PERRL, EOMI, ENT- oropharynx clear Neck- supple, no JVD Lungs- clear to auscultation Heart- irregular rhythm Abdomen- normal bowel sounds, soft, nontender Extremities- no calf tenderness, +edema with chronic venous stasis changes, left second toe tip area necrotic, no active drainage noted Neuro- alert, oriented, PERRL, EOMI; no facial palsy; Skin- warm & dry _ (1) Pressure ulcer, stage II, skin breakdown Laterality: unspecified laterality Pressure injury location: buttock Qualified Code(s): L89.302 - Pressure ulcer of unspecified buttock, stage 2 (2) Diabetes Chronic kidney disease stage: Diabetes mellitus complication detail: with foot ulcer Diabetes mellitus complication status: with skin complications Diabetes mellitus prison insulin use: unspecified prison insulin use status Diabetes mellitus macular edema: Diabetes mellitus type: type 2 Diabetic retinopathy severity: Laterality: Proliferative retinopathy type: Qualified Code(s): E11.621 - Type 2 diabetes mellitus with foot ulcer; L97.509 - Non-pressure chronic ulcer of other part of unspecified foot with unspecified severity (3) Rhabdomyolysis Encounter type: initial encounter Rhabdomyolysis type: traumatic Qualified Code(s): T79.6XXA - Traumatic ischemia of muscle, initial encounter (4) Acute renal failure superimposed on stage 3 chronic kidney disease Acute renal failure type: unspecified Qualified Code(s): N17.9 - Acute kidney failure, unspecified; N18.3 - Chronic kidney disease, stage 3 (moderate) (5) Sepsis Sepsis type: sepsis due to unspecified organism Qualified Code(s): A41.9 - Sepsis, unspecified organism (6) Diabetic toe ulcer Diabetes mellitus type: type 2 Laterality: left Non-pressure ulcer stage: unspecified non-pressure ulcer stage Qualified Code(s): E11.621 - Type 2 diabetes mellitus with foot ulcer; L97.529 - Non-pressure chronic ulcer of other part of left foot with unspecified severity (7) Hypertension Hypertension type: unspecified Qualified Code(s): I10 - Essential (primary) hypertension
[2018-06-19] MEDS: POT PHOSPHATE MONOBASIC W/ SOD TAB PO SCH ×3 (13:14→19:53)
[2018-06-19] MEDS: DIGOXIN 0.125 MG TAB PO SCH (16:26)
[2018-06-19] MEDS: SUCRALFATE 1 GM/10 ML UDC PO SCH ×2 (16:27→19:53)
[2018-06-19] MEDS: ALUMINUM/MAGNESIUM SUSP 72 ML, LIDOCAINE HCL VISCOUS 2% 24 ML, BARCODE IDENTIFIER 1 EA PO PRN (17:08)
--- NOTE | 2018-06-19 17:42 | Orthopedic Progress Note ---
Date of Service June 19, 2018 Assessment & Plan (1) Diabetic toe ulcer: Appreciate vascular input, perfusion is adequate for healing to LLE. Toe wound appears to be healing well and is no longer open. CT is negative for any osseous involvement. No local SOI to digit at this time. Mild hyperkeratotic tissue is noted. This can be managed as an outpatient from here. We may consider flexor tendon releases as an outpatient. He no longer requires a dressing for the left 2nd toe wound. Please reconsult if you have any further questions or issues. Subjective Patient seen resting at bedside today. Relates he is feeling better. No pain to the LLE at this time. Has some chest pain and difficulty eating. Physical Exam 2 Vital Signs (Past 24 Hours): Last Vital Signs Temp 36.6 C 06/19/18 15:03 Pulse 84 06/19/18 16:26 Resp 18 06/19/18 15:03 BP 134/73 06/19/18 15:03 Pulse Ox 94 06/19/18 15:03 Physical Exam: NVS unchanged from previous visit Arterial ultrasound shows adequate perfusion for healing to the digits CT is negative for osteomyelitis Mild hyperkeratotit tissue to 2nd digit distal tuft left is noted, no open wound is noted _ (1) Diabetic toe ulcer Diabetes mellitus type: type 2 Laterality: left Non-pressure ulcer stage: unspecified non-pressure ulcer stage Qualified Code(s): E11.621 - Type 2 diabetes mellitus with foot ulcer; L97.529 - Non-pressure chronic ulcer of other part of left foot with unspecified severity
[2018-06-19] MEDS: ZOLPIDEM TARTRATE 5 MG TAB PO PRN (21:34)
[2018-06-20] MEDS: ALUMINUM/MAGNESIUM SUSP 72 ML, LIDOCAINE HCL VISCOUS 2% 24 ML, BARCODE IDENTIFIER 1 EA PO PRN ×2 (04:31→17:39)
[2018-06-20] MEDS: HEPARIN SOD 5,000 UNIT/0.5 ML VIAL SQ SCH ×3 (04:33→22:14)
[2018-06-20] MEDS: ACETAMINOPHEN 1000 MG/100 ML IV IV PRN ×2 (05:36→22:12)
[2018-06-20 05:46] LABS: Hematocrit (blood only) 42.2 % (42-52); Hemoglobin 13.5 g/dL (14.0-18.0); Mean Platelet Volume 10.3 fL (7.4-10.4); Platelet Count 250 K/uL (130-400); RDW Coefficient of Variation 15.9 % (11.5-14.5); RDW Standard Deviation 51.1 fL (36.4-46.3); Red Blood Count 4.74 M/uL (4.7-6.1); White Blood Count 10.51 K/uL (4.8-10.8)
[2018-06-20 06:22] LABS: BUN Creatinine Ratio 19.6 (10-20); Est GFR (African American) 96.9; Est GFR (Non-African American) 83.6
[2018-06-20 06:23] LABS: Phosphorus 2.4 mg/dl (2.5-4.9)
[2018-06-20] MEDS: INSULIN ASPART 100 UNITS/ML 3 ML PEN SC SCH ×4 (08:04→22:12)
[2018-06-20] MEDS: DOCUSATE SODIUM 100 MG CAP PO SCH ×2 (08:44→22:13)
[2018-06-20] MEDS: ASPIRIN 81 MG ECTAB PO SCH (08:44)
[2018-06-20] MEDS: SUCRALFATE 1 GM/10 ML UDC PO SCH ×4 (08:44→22:09)
[2018-06-20] MEDS: FUROSEMIDE 20 MG TAB PO SCH (08:45)
[2018-06-20] MEDS: POTASSIUM CHLORIDE 10 MEQ TABCR PO SCH (08:45)
[2018-06-20] MEDS: INSULIN GLARGINE SOLOSTAR 100 UNITS/ML 3 ML PEN SC SCH (08:45)
[2018-06-20] MEDS: FERROUS SULFATE 325 MG TAB PO SCH ×2 (08:45→22:09)
[2018-06-20] MEDS: LACTOBACILLUS ACIDOPHILUS (FLORANEX) TAB PO SCH (08:45)
[2018-06-20] MEDS: PANTOprazole 40 MG in SYRINGE 0 ML IV SCH ×2 (08:46→22:09)
[2018-06-20] MEDS: METOPROLOL SUCC 50MG EXT REL TAB PO SCH (08:46)
[2018-06-20] MEDS: LOSARTAN POTASSIUM 50 MG TAB PO SCH (08:46)
[2018-06-20] MEDS: FINASTERIDE 5 MG TAB PO SCH (08:46)
[2018-06-20] MEDS: POT PHOSPHATE MONOBASIC W/ SOD TAB PO SCH (08:46)
[2018-06-20] MEDS: cefTRIAXone SODIUM 2,000 MG in DEXTROSE 5% 50 ML IV SCH (08:47)
[2018-06-20] MEDS ORDERED: FUROSEMIDE 20 MG TAB PO SCH (09:00)
--- NOTE | 2018-06-20 09:32 | Hospitalist Progress Note ---
Date of Service June 20, 2018 Assessment & Plan (1) Sepsis: Severe Sepsis Present on admission with tachycardia, elevated WBC 23K, Hypotension with elevated lactic acid Urine cx grew proteus mirabilis Received adequate IVF and did not require any pressor ID on board Abx changed to IV rocephin 2 gm daily Will change to Keflex PO 500 mg PO BID X14 days on discharge Stable (2) Epigastric abdominal pain: Possible related to gastritis/GERD Pain only occurs with eating and drinking Carafate was adding yesterday with minimal relief On pantoprazole 40mg BID GI consult pending (3) Lethargy: Possible related to narcotic and sedatives med will start on tramadol for the epigastric pain Resolved (4) Acute urinary retention: On chronic indwelling Foely for last 2-3 yrs follows with Urology in [place] and Dr Priscilla Zhang locally urinary retention due to blocked Patiño (due to significant amount of debris/ pus ) CT abdomen /pelvis 06/16/2018 showed wall thickening of the urinary bladder with extensive perivesicular stranding suggests acute cystitis. Patiño was changed by urology dr. Zhang where draining pus /concentrated urine removed Resolved (5) Atrial fibrillation with RVR: Present on admission with Afib with HR 140 Hx Chronic Afib In Afib with rate control Continue Toprol XL 200 mg daily /Digoxin 125 mcg daily Not a anticoagulation candidate for history of GI bleed/gastric ulcer, groin hemangioma Cardiology on board ECHO showed Transthoracic echo: 06/16/2018 Study is technically difficult but adequate for referral indication. A. fib with rapid ventricular response was present during the echocardiogram. There is mild concentric left ventricular hypertrophy. Left ventricular cavity is small and underfilled No regional wall motion abnormalities noted Qualitative left ventricular ejection fraction more than 70% hyperdynamic Right ventricle is hyperdynamic Aortic valve is mildly calcified Aortic stenosis is absent The aortic root was not visualized well enough to allow measurements, the proximal ascending aorta was mildly dilated with diameter of 4 cm (6) Rhabdomyolysis: due to fall /prolong immobilization//was on floor for apprx 5 hrs presented with elevated CPK > 4000k Received adequate IVF CK level back to normal Resolved (7) Pressure ulcer, stage II, skin breakdown: present on admission follows with Wound care clinic wound care on board (8) Scrotal varicose veins: follows with wound care -consulted ordered for off loading , change of position OOB to chair when able (9) Ulcer of scrotum: present on admission -chronic due to morbid obesity , pt stays in his lift chair whole day pt was asked to change position , off loading by wound care clinic for healing of pressure sore no drainage wound noted wound care consulted (10) Diabetic toe ulcer: Left 2nd toe -tip appears to be Necrotic follows with Podiatry Dr Padilla Arauz CT of lower ext shows no evidence of osteomyelitis vascular surgery on board, no surgical intervention needed Continue conservative management per podiary USG of lower ext shows mild arterial occlusive disease b/l (11) Hypertension: BP elevated On Toprol XL 200 mg daily, losartan 50mg Lasix 20mg resumed Continue monitor (12) Diabetes: Type 2 DM with CKD stage 3 /diabetic toe ulcer presented with hyperglycemia due to infection /sepsis pharmacy consulted for glycemic management HbA1c 7.4 on 06/17/18 (13) Chronic diastolic CHF (congestive heart failure): presented with hypovolumia /dehydration ECHO shows : flattend IVC , Hyperdynamic LV , EF > 70% Lasix 20mg IV resumed Monitor I/O (14) Obesity, morbid, BMI 40.0-49.9: BMI 40. 7 causing multiple co morbidities limited mobility , leading pressure sore in sacral and scrotal area urinary retention /bladder outlet obstruction requiring chronic indwelling patiño catheter /recurrent UTI Dietitian consulted -help with guideline to pt and family -low calorie intake / healthy diet (15) Acute renal failure superimposed on stage 3 chronic kidney disease: Due to severe sepsis and dehydration Creatinine on admission 1.7 Creatinine back to baseline Avoid NSAID's /contrast studies , nephrotoxins (16) Complicated UTI (urinary tract infection): Hx of recurrent UTI Urine cx grew proteus mirabilis Continue IV rocephin for now. will D/C on keflex Stable CODE STATUS : full code DVT PROPHYLAXIS : On Sub q heparin DISPOSITION ; Will discharge to rehab one medically stable Kellee Deleon: Phone number [phone]: At baseline patient able to walk with rolling walker, able to go to bathroom, take shower g Subjective Pt was seen and examined Lying in bed with no distress Pt said that he continues to have mid epigastric tenderness He said that his pain only occurs when eating or drinking He said that he does not have any difficulty to swallow He said that he likes to eat but cannot because of the pain He denies any chest pain, palpitation, dizziness and SOB Physical Exam 2 Vital Signs (Past 24 Hours): Last Vital Signs Temp 36.9 C 06/20/18 08:04 Pulse 98 H 06/20/18 08:04 Resp 22 06/20/18 08:04 BP 159/76 H 06/20/18 08:04 Pulse Ox 95 06/20/18 08:04 Physical Exam: General- No acute distress Head- atraumatic Eyes- PERRL, EOMI, ENT- oropharynx clear Neck- supple, no JVD Lungs- clear to auscultation Heart- irregular rhythm Abdomen- normal bowel sounds, soft, nontender Extremities- no calf tenderness, +edema with chronic venous stasis changes, left second toe tip area necrotic, no active drainage noted Neuro- alert, oriented, PERRL, EOMI; no facial palsy; Skin- warm & dry _ (1) Pressure ulcer, stage II, skin breakdown Laterality: unspecified laterality Pressure injury location: buttock Qualified Code(s): L89.302 - Pressure ulcer of unspecified buttock, stage 2 (2) Diabetes Chronic kidney disease stage: Diabetes mellitus complication detail: with foot ulcer Diabetes mellitus complication status: with skin complications 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 insulin use: unspecified mcfp insulin use status Diabetes mellitus macular edema: Diabetes mellitus type: type 2 Diabetic retinopathy severity: Laterality: Proliferative retinopathy type: Qualified Code(s): E11.621 - Type 2 diabetes mellitus with foot ulcer; L97.509 - Non-pressure chronic ulcer of other part of unspecified foot with unspecified severity (3) Rhabdomyolysis Encounter type: initial encounter Rhabdomyolysis type: traumatic Qualified Code(s): T79.6XXA - Traumatic ischemia of muscle, initial encounter (4) Acute renal failure superimposed on stage 3 chronic kidney disease Acute renal failure type: unspecified Qualified Code(s): N17.9 - Acute kidney failure, unspecified; N18.3 - Chronic kidney disease, stage 3 (moderate) (5) Sepsis Sepsis type: sepsis due to unspecified organism Qualified Code(s): A41.9 - Sepsis, unspecified organism (6) Diabetic toe ulcer Diabetes mellitus type: type 2 Laterality: left Non-pressure ulcer stage: unspecified non-pressure ulcer stage Qualified Code(s): E11.621 - Type 2 diabetes mellitus with foot ulcer; L97.529 - Non-pressure chronic ulcer of other part of left foot with unspecified severity (7) Hypertension Hypertension type: unspecified Qualified Code(s): I10 - Essential (primary) hypertension
--- NOTE | 2018-06-20 09:59 | Cardiology Progress Note ---
Date of Service June 20, 2018 Assessment & Plan (1) Chronic atrial fibrillation: Currently rate controlled on telemetry. Continue Toprol-XL 200 mg and digoxin 125 mcg daily. Anticoagulation discontinued 2017 due to large volume bleeding related to large perineal/scrotal vascular malformation. Diltiazem discontinued in the past due to bradycardia. (2) Chronic diastolic heart failure: Lasix 20 mg daily. Continue to follow volume status, GFR, electrolytes daily. (3) Complicated UTI (urinary tract infection): Antibiotics per internal medicine/urology. (4) Chronic indwelling Baires catheter: (5) Epigastric abdominal pain: Continue proton pump inhibitor and Carafate. Consider gastroenterology consultation. Subjective Patient seen and examined at the bedside. Continues to report epigastric discomfort. Discomfort worse with eating and drinking. No constipation or diarrhea. Atrial fibrillation with controlled ventricular response on telemetry. Denies chest discomfort or palpitations. Baires catheter in place. No fevers overnight. Physical Exam 2 Vital Signs (Past 24 Hours): Last Vital Signs Temp 36.9 C 06/20/18 08:04 Pulse 98 H 06/20/18 08:04 Resp 22 06/20/18 08:04 BP 159/76 H 06/20/18 08:04 Pulse Ox 95 06/20/18 08:04 Physical Exam: General: NAD, AAO x3, morbid obesity. Chronically ill. HEENT : Normocephalic. Atraumatic. Conjunctiva pink, no scleral icterus. Neck: No carotid bruits, the carotid upstrokes are brisk. No JVD. No HJR Heart: Irregular rhythm, normal S-1 and S-2 no S-3 or S-4 gallop. No murmurs or rub appreciated. PMI is not displaced. No RV heave. Lungs: Clear bilateral without rales , rhonchi, or wheeze. Abdomen: Normal bowel sounds. Soft. Nontender. No masses or organomegaly. No abdominal bruits. Extremities: Trace bilateral ankle and pretibial edema with stasis changes. Pulses: radial=2/4. Neuro: Cranial nerves grossly intact. No focal motor deficit.
--- NOTE | 2018-06-20 11:27 | Gastrointestinal Consultation ---
Date of Consultation June 20, 2018 Assessment & Plan (1) Epigastric abdominal pain: 77 year old male admitted w/ urinary sepsis w/ new upper abdominal pain post-prandially. He has history of gastric ulcers x 2. On ASA daily, no other NSAIDs or AC. HGB has been stable during admission no black/bloody stools - OK to continue ASA for now - Check lipase, LFTs - CT on admission w/o acute findings - Consider RUQ US - Would recommend IV PPI BID - Can have Carafate slurry QID PRN symptoms - Diet as tolerated - Will discuss role for endoscopy with attending, for now would recommend continued conservative management given his comorbidities. - GI to follow. Thank you for allowing us to participate in the care of this patient. Please call with any acute changes, questions or concerns. Please see addendum below with additional recommendation from my supervising physician. Present on Admission?: No Supervising Physician Co-Signing Physician Notes I have seen and examined the patient with FRANCESCO Lopez whose note reflects our findings and plan. History of Present Illness Reason for Consultation: abd pain afterPO Requesting Physician: Don Attending Physician: Nacho Ochoa MD History of Present Illness 77 year old male with history of T2DM, dyslipidemia, HTN, afib, hx gastric ulcer admitted w/ urinary sepsis (tachycardia, elevated WBC 23K, hypotension w/ elevated lactic acid) w/ urine cr w/ proteus mirabilis now w/ post-prandial abd pain. Pt was seen and evaluated, chart reviewed. He notes prior to admission has bene feeling well from a GI standpoint. Over the past two days has had worsening upper abdominal pain with PO. Mild nausea, no vomiting. Notes the pain is intermittent, sharp stabbing. Goes away with time. No change in bowels. Denies black/bloody stools. SOB. No CP. NSAIDs: ASA AC: none EGD 10/18: Hiatal hernia. Normal stomach. Normal examined duodenum. No specimens collected. EGD 05/19: esophagitis, non-bleeding gastric ulcer, normmal duodenum Allergies Allergy/AdvReac Type Severity Reaction Status Date / Time metronidazole Allergy Severe see below Verified 06/16/18 03:51 amoxicillin Allergy Intermediate rash Verified 06/16/18 03:51 Home Medications Home Medications Medication Instructions Recorded Confirmed Type Lactobacillus acidophilus 10,000 mmu cells PO DAILY 06/16/18 06/16/18 History [Acidophilus] aspirin 81 mg PO DAILY 06/16/18 06/16/18 History digoxin 125 mcg PO DAILY 06/16/18 06/16/18 History ferrous sulfate 325 mg PO BID 06/16/18 06/16/18 History finasteride 5 mg PO DAILY 06/16/18 06/16/18 History furosemide 20 mg PO DAILY 06/16/18 06/16/18 History hydrocodone-acetaminophen 1 tab PO BID PRN 06/16/18 06/16/18 History losartan 50 mg PO DAILY 06/16/18 06/16/18 History metformin 500 mg PO TIDM 06/16/18 06/16/18 History metoprolol succinate 200 mg PO DAILY 06/16/18 06/16/18 History pantoprazole 40 mg PO BID 06/16/18 06/16/18 History potassium chloride 10 meq PO DAILY 06/16/18 06/16/18 History tramadol 50 mg PO Q6 PRN 06/16/18 06/16/18 History Patient History Medical History Sepsis (Chronic) Acquired buried penis (Chronic) BPH without urinary obstruction (Chronic) Benign hypertension (Chronic) Chronic diastolic CHF (congestive heart failure) (Chronic) DM (diabetes mellitus), type 2, uncontrolled w/ophthalmic complication (Chronic) Diverticulosis of colon (without mention of hemorrhage) (Chronic) Exertional dyspnea (Chronic) Gastric ulcer with hemorrhage but without obstruction (Chronic) H/O Clostridium difficile infection (Chronic) Hemangioma of skin (Chronic) History of chronic atrial fibrillation (Chronic) Morbid obesity (Chronic) JUAN MANUEL (obstructive sleep apnea) (Chronic) Symptomatic anemia (Chronic) Urinary retention (Chronic) Social History Current Living Situation: Spouse Other Information That Helps Us Care for You: No Feels Safe at Home: Yes Safety Concerns: Feels Safe At This Time Smoking Status: Never smoker Do You Dip or Chew Tobacco: No Second Hand Exposure: No Tobacco Cessation Education Requested by Patient: No Hx Alcohol Use: No Hx Substance Use: No Beliefs That Will Affect Care: None 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 Ability: Effective Review of Systems Constitutional: + weakness; no fever and no body aches Respiratory: + dyspnea; no cough and no wheezing Cardiovascular: no chest pain, no radiating jaw, neck or arm pain and no palpitations Gastrointestinal: + abdominal pain and + nausea; no bloating, no hematemesis, no cramping, no change in stools, no constipation, no fecal incontinence and no melena Physical Exam 2 Vital Signs (Past 24 Hours): Last Vital Signs Temp 36.9 C 06/20/18 08:04 Pulse 98 H 06/20/18 08:04 Resp 22 06/20/18 08:04 BP 159/76 H 06/20/18 08:04 Pulse Ox 95 06/20/18 08:04 Constitutional: + obese, cooperative and comfortable; no acute distress Respiratory: normal respiratory effort (wearing O2) Auscultation: + diminished lung sounds; no crackles and no wheezes Cardiovascular: Rate/Rhythm: + abnormal rhythm (irregular) Heart Sounds: normal S1 and normal S2; no murmur Gastrointestinal (Abdomen): normal bowel sounds, soft, nontender, no hepatosplenomegaly Results & Data Laboratory Results 06/20/18 06/20/18 06/20/18 Range/Units 07:24 05:15 05:15 WBC 10.51 (4.8-10.8) K/uL RBC 4.74 (4.7-6.1) M/uL Hgb 13.5 L (14.0-18.0) g/dL Hct 42.2 (42-52) % MCV 89.0 (80-100) fL MCH 28.5 (25-34) pg MCHC 32.0 (32-36) g/dL RDW Std Deviation 51.1 H (36.4-46.3) fL RDW Coeff of Shadi 15.9 H (11.5-14.5) % Plt Count 250 (130-400) K/uL MPV 10.3 (7.4-10.4) fL Sodium 136 (136-145) mmol/L Potassium 4.0 (3.5-5.1) mmol/L Chloride 103 (98-107) mmol/L Carbon Dioxide 27 (21-32) mmol/L Anion Gap 6.0 (3-11) BUN 17 (7-18) mg/dl Creatinine 0.86 (0.6-1.4) mg/dl Est Cr Clr Drug Dosing 102.0 ml/min Est GFR ( Amer) 96.9 Est GFR (Non-Af Amer) 83.6 BUN/Creatinine Ratio 19.6 (10-20) Glucose 146 H (70-99) mg/dl POC Glucose 131 H (70-99) Calcium 8.0 L (8.5-10.1) mg/dl Phosphorus 2.4 L (2.5-4.9) mg/dl 06/19/18 06/19/18 06/19/18 Range/Units 20:33 16:13 11:24 WBC (4.8-10.8) K/uL RBC (4.7-6.1) M/uL Hgb (14.0-18.0) g/dL Hct (42-52) % MCV (80-100) fL MCH (25-34) pg MCHC (32-36) g/dL RDW Std Deviation (36.4-46.3) fL RDW Coeff of Shadi (11.5-14.5) % Plt Count (130-400) K/uL MPV (7.4-10.4) fL Sodium (136-145) mmol/L Potassium (3.5-5.1) mmol/L Chloride (98-107) mmol/L Carbon Dioxide (21-32) mmol/L Anion Gap (3-11) BUN (7-18) mg/dl Creatinine (0.6-1.4) mg/dl Est Cr Clr Drug Dosing ml/min Est GFR ( Amer) Est GFR (Non-Af Amer) BUN/Creatinine Ratio (10-20) Glucose (70-99) mg/dl POC Glucose 127 H 151 H 138 H (70-99) Calcium (8.5-10.1) mg/dl Phosphorus (2.5-4.9) mg/dl
--- NOTE | 2018-06-20 14:21 | Pharmacy Report ---
Pharmacy Glycemic Short Note 2 - Date of Service June 20, 2018 - Glycemic Short BSG Results (Last 24 hours): 06/19/18 06/19/18 06/20/18 16:13 20:33 05:15 Glucose 146 H POC Glucose 151 H 127 H 06/20/18 06/20/18 07:24 11:32 Glucose POC Glucose 131 H 132 H Outpatient Anti-diabetic Regimen: * Metformin 500 mg PO TID * A1c = 7.4% 06/17/18 ASSESSMENT: * Mr Deleon has not required any basal insulin x48+ hours. Lantus sliding scale order has been discontinued at this time. * Patient has been receiving carb coverage only and hasn't required any correctional insulin x48+ hours. * Metformin resumed starting this evening and will plan to d/c Novolog orders tomorrow if BSGs remain stable. PLAN FOR INPATIENT GLYCEMIC CONTROL: * Resume Metformin 500mg PO TID with dinner this evening * Basal insulin * none * Bolus insulin * NovoLog per scale ACHS or Q6hrs while NPO * Goal Range: Low 120 mg/dL - High 160 mg/dL * Correction Factor: 15 mg/dL/unit * Nutritional / Prandial insulin per carb ratio of 1 unit per 8 grams CHO consumed PLAN FOR DISCHARGE: * Patient's A1c (7.4%) indicates good glycemic control as an outpatient. * Expect that patient may resume outpt regimen on discharge, as long as he does not report having episodes of hypoglycemia at home. * Please note that the plan above was derived based on current level of insulin resistance and hospital stress. These recommendations are appropriate for inpatient admission only. Plan of care upon discharge will need to be reassessed to avoid potential outpatient hypo/hyperglycemia. Thank you.
[2018-06-20] MEDS: TRAMADOL HCL 50 MG TABLET PO PRN (16:20)
[2018-06-20] MEDS: DIGOXIN 0.125 MG TAB PO SCH (16:21)
[2018-06-20] MEDS: METFORMIN HCL 500 MG TAB PO SCH (16:22)
[2018-06-20] MEDS: ZOLPIDEM TARTRATE 5 MG TAB PO PRN (22:32)
[2018-06-21] MEDS: TRAMADOL HCL 50 MG TABLET PO PRN ×3 (00:12→17:19)
[2018-06-21] MEDS: HEPARIN SOD 5,000 UNIT/0.5 ML VIAL SQ SCH ×3 (05:41→20:32)
[2018-06-21] MEDS: ACETAMINOPHEN 1000 MG/100 ML IV IV PRN ×3 (05:42→23:29)
[2018-06-21] MEDS ORDERED: COUGH DROP (SUGAR FREE) LOZ 24 LOZ/1 BOX BUCCAL ONE (06:36)
[2018-06-21] MEDS: SUCRALFATE 1 GM/10 ML UDC PO SCH ×4 (07:52→20:31)
[2018-06-21] MEDS: FERROUS SULFATE 325 MG TAB PO SCH ×2 (08:38→20:32)
[2018-06-21] MEDS: FINASTERIDE 5 MG TAB PO SCH (08:38)
[2018-06-21] MEDS: POTASSIUM CHLORIDE 10 MEQ TABCR PO SCH (08:38)
[2018-06-21] MEDS: METOPROLOL SUCC 50MG EXT REL TAB PO SCH (08:39)
[2018-06-21] MEDS: ASPIRIN 81 MG ECTAB PO SCH (08:39)
[2018-06-21] MEDS: PANTOprazole 40 MG in SYRINGE 0 ML IV SCH ×2 (08:39→20:32)
[2018-06-21] MEDS: FUROSEMIDE 20 MG TAB PO SCH (08:39)
[2018-06-21] MEDS: METFORMIN HCL 500 MG TAB PO SCH ×3 (08:39→16:20)
[2018-06-21] MEDS: LOSARTAN POTASSIUM 50 MG TAB PO SCH (08:39)
[2018-06-21] MEDS: LACTOBACILLUS ACIDOPHILUS (FLORANEX) TAB PO SCH (08:40)
[2018-06-21] MEDS: INSULIN ASPART 100 UNITS/ML 3 ML PEN SC SCH ×4 (09:14→20:32)
--- NOTE | 2018-06-21 10:03 | Gastroenterology Progress Note ---
Date of Service June 21, 2018 Assessment & Plan (1) Epigastric abdominal pain: 77 year old male admitted w/ urinary sepsis w/ new upper abdominal pain post-prandially. He has history of gastric ulcers x 2. On ASA daily, no other NSAIDs or AC. HGB has been stable during admission no black/bloody stools. He had worsening symptoms this AM. - Check lipase - OK to continue ASA for now - Consider RUQ US - Would recommend IV PPI BID - Can have Carafate slurry QID PRN symptoms - NPO after midnight for EGD 06/22 - GI to follow. Thank you for allowing us to participate in the care of this patient. Please call with any acute changes, questions or concerns. Please see addendum below with additional recommendation from my supervising physician. Supervising Physician Co-Signing Physician Notes I have seen and examined the patient with FRANCESCO Lopez whose note reflects our findings and plan. Subjective Pt was seen and evaluated, chart reviewed. Had worsening upper abd pain with PO this AM. No nausea, vomiting. Pain slow to resolve after he stopped PO. Moving bowels, green. Discussed with nursing, no black/bloody stools. No fever, chills. Has hx of gastric ulcer. Is on PPI and carafate. Constitutional: + weakness; no fever and no body aches Respiratory: + dyspnea; no cough and no wheezing Cardiovascular: no chest pain, no radiating jaw, neck or arm pain and no claudication Gastrointestinal: + abdominal pain and + nausea; no bloating, no hematemesis, no cramping, no change in stools, no constipation, no fecal incontinence and no melena Physical Exam 2 Vital Signs (Past 24 Hours): Last Vital Signs Temp 36.5 C 06/21/18 07:43 Pulse 81 06/21/18 08:00 Resp 28 H 06/21/18 07:43 BP 180/90 H 06/21/18 07:43 Pulse Ox 96 06/21/18 07:43 Constitutional: + obese, cooperative and comfortable; no acute distress Respiratory: normal respiratory effort (wearing O2) Auscultation: + diminished lung sounds; no crackles and no wheezes Cardiovascular: Rate/Rhythm: + abnormal rhythm (irregular) Heart Sounds: normal S1 and normal S2; no murmur Gastrointestinal (Abdomen): normal bowel sounds, soft, nontender, no hepatosplenomegaly Results & Data Laboratory Results 06/21/18 06/20/18 06/20/18 Range/Units 07:40 20:39 16:21 POC Glucose 124 H 101 H 126 H (70-99) 06/20/18 Range/Units 11:32 POC Glucose 132 H (70-99)
--- NOTE | 2018-06-21 10:23 | Hospitalist Progress Note ---
Date of Service June 21, 2018 Assessment & Plan (1) Sepsis: Severe Sepsis Present on admission with tachycardia, elevated WBC 23K, Hypotension with elevated lactic acid Urine cx grew proteus mirabilis Received adequate IVF and did not require any pressor ID on board Abx changed to IV rocephin 2 gm daily Will change to Keflex PO 500 mg PO BID X14 days on discharge Stable (2) Epigastric abdominal pain: Possible related to gastritis/GERD Pain only occurs with eating and drinking Continue PPI and carafete for now GI on board and plan for EGD tomorrow GI recommended to check lipase and U/S of RUQ NPO after midnight (3) Lethargy: Possible related to narcotic and sedatives med will start on tramadol for the epigastric pain Resolved (4) Acute urinary retention: On chronic indwelling Foely for last 2-3 yrs follows with Urology in [place] and Dr Priscilla Zhang locally urinary retention due to blocked Patiño (due to significant amount of debris/ pus ) CT abdomen /pelvis 06/16/2018 showed wall thickening of the urinary bladder with extensive perivesicular stranding suggests acute cystitis. Patiño was changed by urology dr. Zhang where draining pus /concentrated urine removed Resolved (5) Atrial fibrillation with RVR: Present on admission with Afib with HR 140 Hx Chronic Afib In Afib with rate control Continue Toprol XL 200 mg daily /Digoxin 125 mcg daily Not a anticoagulation candidate for history of GI bleed/gastric ulcer, groin hemangioma Cardiology on board ECHO showed Transthoracic echo: 06/16/2018 Study is technically difficult but adequate for referral indication. A. fib with rapid ventricular response was present during the echocardiogram. There is mild concentric left ventricular hypertrophy. Left ventricular cavity is small and underfilled No regional wall motion abnormalities noted Qualitative left ventricular ejection fraction more than 70% hyperdynamic Right ventricle is hyperdynamic Aortic valve is mildly calcified Aortic stenosis is absent The aortic root was not visualized well enough to allow measurements, the proximal ascending aorta was mildly dilated with diameter of 4 cm (6) Rhabdomyolysis: due to fall /prolong immobilization//was on floor for apprx 5 hrs presented with elevated CPK > 4000k Received adequate IVF CK level back to normal Resolved (7) Pressure ulcer, stage II, skin breakdown: present on admission follows with Wound care clinic wound care on board (8) Scrotal varicose veins: follows with wound care -consulted ordered for off loading , change of position OOB to chair when able (9) Ulcer of scrotum: present on admission -chronic due to morbid obesity , pt stays in his lift chair whole day pt was asked to change position , off loading by wound care clinic for healing of pressure sore no drainage wound noted wound care consulted (10) Diabetic toe ulcer: Left 2nd toe -tip appears to be Necrotic follows with Podiatry Dr Padilla Arauz CT of lower ext shows no evidence of osteomyelitis vascular surgery on board, no surgical intervention needed Continue conservative management per podiary USG of lower ext shows mild arterial occlusive disease b/l (11) Hypertension: BP elevated On Toprol XL 200 mg daily, losartan 50mg Lasix 20mg resumed Continue monitor (12) Diabetes: Type 2 DM with CKD stage 3 /diabetic toe ulcer presented with hyperglycemia due to infection /sepsis pharmacy consulted for glycemic management HbA1c 7.4 on 06/17/18 (13) Chronic diastolic CHF (congestive heart failure): presented with hypovolumia /dehydration ECHO shows : flattend IVC , Hyperdynamic LV , EF > 70% Lasix 20mg IV resumed Monitor I/O (14) Obesity, morbid, BMI 40.0-49.9: BMI 40. 7 causing multiple co morbidities limited mobility , leading pressure sore in sacral and scrotal area urinary retention /bladder outlet obstruction requiring chronic indwelling patiño catheter /recurrent UTI Dietitian consulted -help with guideline to pt and family -low calorie intake / healthy diet (15) Acute renal failure superimposed on stage 3 chronic kidney disease: Due to severe sepsis and dehydration Creatinine on admission 1.7 Creatinine back to baseline Avoid NSAID's /contrast studies , nephrotoxins (16) Complicated UTI (urinary tract infection): Hx of recurrent UTI Urine cx grew proteus mirabilis Continue IV rocephin for now. will D/C on keflex Stable CODE STATUS : full code DVT PROPHYLAXIS : On Sub q heparin DISPOSITION ; Will discharge to rehab one medically stable Kellee Deleon: Phone number [phone]: At baseline patient able to walk with rolling walker, able to go to bathroom, take shower g Subjective Pt was seen and examined Lying in bed with no distress. Pt said that he feels fine now. but whenever he eats that he developed a lot of burning pain in his mid epigastric area. he said that the PPI and carafate do not show any relief. Pt said that he suppose to use a CPAP at night, but has not been using it because he cannot tolerate the mask. Denies any chest pain, palpitation, dizziness and SOB Physical Exam 2 Vital Signs (Past 24 Hours): Last Vital Signs Temp 36.5 C 06/21/18 07:43 Pulse 81 06/21/18 08:00 Resp 28 H 06/21/18 07:43 BP 180/90 H 06/21/18 07:43 Pulse Ox 96 06/21/18 07:43 Physical Exam: General- No acute distress Head- atraumatic Eyes- PERRL, EOMI, ENT- oropharynx clear Neck- supple, no JVD Lungs- clear to auscultation Heart- irregular rhythm Abdomen- normal bowel sounds, soft, nontender Extremities- no calf tenderness, +edema with chronic venous stasis changes, left second toe tip area necrotic, no active drainage noted Neuro- alert, oriented, PERRL, EOMI; no facial palsy; Skin- warm & dry _ (1) Pressure ulcer, stage II, skin breakdown Laterality: unspecified laterality Pressure injury location: buttock Qualified Code(s): L89.302 - Pressure ulcer of unspecified buttock, stage 2 (2) Diabetes Chronic kidney disease stage: Diabetes mellitus complication detail: with foot ulcer Diabetes mellitus complication status: with skin complications Diabetes mellitus long-term insulin use: unspecified long-term insulin use status Diabetes mellitus macular edema: Diabetes mellitus type: type 2 Diabetic retinopathy severity: Laterality: Proliferative retinopathy type: Qualified Code(s): E11.621 - Type 2 diabetes mellitus with foot ulcer; L97.509 - Non-pressure chronic ulcer of other part of unspecified foot with unspecified severity (3) Rhabdomyolysis Encounter type: initial encounter Rhabdomyolysis type: traumatic Qualified Code(s): T79.6XXA - Traumatic ischemia of muscle, initial encounter (4) Acute renal failure superimposed on stage 3 chronic kidney disease Acute renal failure type: unspecified Qualified Code(s): N17.9 - Acute kidney failure, unspecified; N18.3 - Chronic kidney disease, stage 3 (moderate) (5) Sepsis Sepsis type: sepsis due to unspecified organism Qualified Code(s): A41.9 - Sepsis, unspecified organism (6) Diabetic toe ulcer Diabetes mellitus type: type 2 Laterality: left Non-pressure ulcer stage: unspecified non-pressure ulcer stage Qualified Code(s): E11.621 - Type 2 diabetes mellitus with foot ulcer; L97.529 - Non-pressure chronic ulcer of other part of left foot with unspecified severity (7) Hypertension Hypertension type: unspecified Qualified Code(s): I10 - Essential (primary) hypertension
--- NOTE | 2018-06-21 10:32 | Cardiology Progress Note ---
Date of Service June 21, 2018 Assessment & Plan (1) Chronic atrial fibrillation: Currently rate controlled on telemetry. Continue Toprol-XL 200 mg and digoxin 125 mcg daily. Anticoagulation discontinued 2016 due to large volume bleeding related to large perineal/scrotal vascular malformation. Diltiazem discontinued in the past due to bradycardia. Patient considered moderate perioperative risk. He may proceed with EGD. No further cardiac testing or intervention would lower his risk at this time. (2) Chronic diastolic heart failure: Compensated. Continue Lasix 20 mg daily. Follow volume status, GFR, electrolytes daily. (3) Complicated UTI (urinary tract infection): Antibiotics per internal medicine/urology. (4) Chronic indwelling Baires catheter: (5) Epigastric abdominal pain: Continue proton pump inhibitor and Carafate. EGD this afternoon. Subjective Patient seen and examined at the bedside. Epigastric discomfort unchanged. Discomfort worse with eating and drinking. No constipation or diarrhea. Atrial fibrillation with controlled ventricular response on telemetry. Denies chest discomfort or palpitations. No fevers overnight. EGD scheduled this afternoon. Physical Exam 2 Vital Signs (Past 24 Hours): Last Vital Signs Temp 36.5 C 06/21/18 07:43 Pulse 81 06/21/18 08:00 Resp 28 H 06/21/18 07:43 BP 180/90 H 06/21/18 07:43 Pulse Ox 96 06/21/18 07:43 Physical Exam: General: NAD, AAO x3, morbid obesity. Chronically ill. HEENT : Normocephalic. Atraumatic. Conjunctiva pink, no scleral icterus. Neck: No carotid bruits, the carotid upstrokes are brisk. No JVD. No HJR Heart: Irregular rhythm, normal S-1 and S-2 no S-3 or S-4 gallop. No murmurs or rub appreciated. PMI is not displaced. No RV heave. Lungs: Clear bilateral without rales , rhonchi, or wheeze. Abdomen: Normal bowel sounds. Soft. Nontender. No masses or organomegaly. No abdominal bruits. Extremities: Trace bilateral ankle and pretibial edema with stasis changes. Pulses: radial=2/4. Neuro: Cranial nerves grossly intact. No focal motor deficit.
[2018-06-21] MEDS: cefTRIAXone SODIUM 2,000 MG in DEXTROSE 5% 50 ML IV SCH (10:35)
[2018-06-21] MEDS: DOCUSATE SODIUM 100 MG CAP PO SCH ×2 (10:39→20:31)
--- NOTE | 2018-06-21 11:00 | Pharmacy Report ---
Pharmacy Glycemic Short Note 2 - Date of Service June 21, 2018 - Glycemic Short BSG Results (Last 24 hours): 06/20/18 06/20/18 06/20/18 11:32 16:21 20:39 POC Glucose 132 H 126 H 101 H 06/21/18 07:40 POC Glucose 124 H Outpatient Anti-diabetic Regimen: * Metformin 500 mg PO TID * A1c = 7.4% 06/17/18 ASSESSMENT: 06/21/18: * Pt will be NPO at midnight for EGD 06/22. * Will continue Novolog coverage for now since metformin will be d/c for NPO status. 06/20/18 * Mr Deleon has not required any basal insulin x48+ hours. Lantus sliding scale order has been discontinued at this time. * Patient has been receiving carb coverage only and hasn't required any correctional insulin x48+ hours. * Metformin resumed starting this evening and will plan to d/c Novolog orders tomorrow if BSGs remain stable. PLAN FOR INPATIENT GLYCEMIC CONTROL: * Metformin discontinued after evening dose as pt will be NPO. * Basal insulin * none * Bolus insulin * NovoLog per scale ACHS or Q6hrs while NPO * Goal Range: Low 120 mg/dL - High 160 mg/dL * Correction Factor: 15 mg/dL/unit * Nutritional / Prandial insulin per carb ratio of 1 unit per 8 grams CHO consumed PLAN FOR DISCHARGE: * Patient's A1c (7.4%) indicates good glycemic control as an outpatient. * Expect that patient may resume outpt regimen on discharge, as long as he does not report having episodes of hypoglycemia at home. * Please note that the plan above was derived based on current level of insulin resistance and hospital stress. These recommendations are appropriate for inpatient admission only. Plan of care upon discharge will need to be reassessed to avoid potential outpatient hypo/hyperglycemia. Thank you.
[2018-06-21] MEDS: DIGOXIN 0.125 MG TAB PO SCH (16:21)
[2018-06-21] MEDS: ALUMINUM/MAGNESIUM SUSP 72 ML, LIDOCAINE HCL VISCOUS 2% 24 ML, BARCODE IDENTIFIER 1 EA PO PRN (17:20)
[2018-06-22] MEDS: TRAMADOL HCL 50 MG TABLET PO PRN ×2 (02:14→16:23)
[2018-06-22] MEDS: ZOLPIDEM TARTRATE 5 MG TAB PO PRN (02:23)
[2018-06-22] MEDS: HEPARIN SOD 5,000 UNIT/0.5 ML VIAL SQ SCH ×3 (06:15→20:32)
[2018-06-22] MEDS: INSULIN ASPART 100 UNITS/ML 3 ML PEN SC SCH ×4 (07:52→20:31)
[2018-06-22] MEDS: cefTRIAXone SODIUM 2,000 MG in DEXTROSE 5% 50 ML IV SCH (08:11)
[2018-06-22] MEDS: ACETAMINOPHEN 1000 MG/100 ML IV IV PRN ×2 (08:11→20:28)
[2018-06-22] MEDS: PANTOprazole 40 MG in SYRINGE 0 ML IV SCH ×2 (08:12→20:30)
[2018-06-22] MEDS: SUCRALFATE 1 GM/10 ML UDC PO SCH ×4 (08:12→20:29)
[2018-06-22] MEDS: METOPROLOL SUCC 50MG EXT REL TAB PO SCH (08:18)
[2018-06-22] MEDS: FERROUS SULFATE 325 MG TAB PO SCH ×2 (08:19→20:32)
[2018-06-22] MEDS: FINASTERIDE 5 MG TAB PO SCH (08:19)
[2018-06-22] MEDS: ASPIRIN 81 MG ECTAB PO SCH (08:19)
[2018-06-22] MEDS: LOSARTAN POTASSIUM 50 MG TAB PO SCH (08:20)
[2018-06-22] MEDS: FUROSEMIDE 20 MG TAB PO SCH (08:20)
[2018-06-22] MEDS: LACTOBACILLUS ACIDOPHILUS (FLORANEX) TAB PO SCH (08:20)
[2018-06-22] MEDS: POTASSIUM CHLORIDE 10 MEQ TABCR PO SCH (08:21)
[2018-06-22] MEDS: DOCUSATE SODIUM 100 MG CAP PO SCH ×2 (08:22→20:29)
[2018-06-22 09:29] LABS: BUN Creatinine Ratio 14.8 (10-20); Creatinine Clr Calc Pharmacy 91.3 ml/min; Est GFR (Non-African American) 75.9; Phosphorus 2.3 mg/dl (2.5-4.9); Potassium 4.5 mmol/L (3.5-5.1)
--- NOTE | 2018-06-22 09:49 | History & Physical Report ---
Date of Service June 22, 2018 Assessment & Plan (1) Epigastric abdominal pain: EGD today History of Present Illness Chief Complaint: abd pain Primary Care Provider: Donte Szymanski abd pain Allergies Allergy/AdvReac Type Severity Reaction Status Date / Time metronidazole Allergy Severe see below Verified 06/16/18 03:51 amoxicillin Allergy Intermediate rash Verified 06/16/18 03:51 Home Medications Home Medications Medication Instructions Recorded Confirmed Type Lactobacillus acidophilus 10,000 mmu cells PO DAILY 06/16/18 06/16/18 History [Acidophilus] aspirin 81 mg PO DAILY 06/16/18 06/16/18 History digoxin 125 mcg PO DAILY 06/16/18 06/16/18 History ferrous sulfate 325 mg PO BID 06/16/18 06/16/18 History finasteride 5 mg PO DAILY 06/16/18 06/16/18 History furosemide 20 mg PO DAILY 06/16/18 06/16/18 History hydrocodone-acetaminophen 1 tab PO BID PRN 06/16/18 06/16/18 History losartan 50 mg PO DAILY 06/16/18 06/16/18 History metformin 500 mg PO TIDM 06/16/18 06/16/18 History metoprolol succinate 200 mg PO DAILY 06/16/18 06/16/18 History pantoprazole 40 mg PO BID 06/16/18 06/16/18 History potassium chloride 10 meq PO DAILY 06/16/18 06/16/18 History tramadol 50 mg PO Q6 PRN 06/16/18 06/16/18 History Past Med/Surg History Medical History Sepsis (Chronic) Acquired buried penis (Chronic) BPH without urinary obstruction (Chronic) Benign hypertension (Chronic) Chronic diastolic CHF (congestive heart failure) (Chronic) DM (diabetes mellitus), type 2, uncontrolled w/ophthalmic complication (Chronic) Diverticulosis of colon (without mention of hemorrhage) (Chronic) Exertional dyspnea (Chronic) Gastric ulcer with hemorrhage but without obstruction (Chronic) H/O Clostridium difficile infection (Chronic) Hemangioma of skin (Chronic) History of chronic atrial fibrillation (Chronic) Morbid obesity (Chronic) JUAN MANUEL (obstructive sleep apnea) (Chronic) Symptomatic anemia (Chronic) Urinary retention (Chronic) Social History Current Living Situation: Spouse Other Information That Helps Us Care for You: No Feels Safe at Home: Yes Safety Concerns: Feels Safe At This Time Smoking Status: Never smoker Do You Dip or Chew Tobacco: No Second Hand Exposure: No Tobacco Cessation Education Requested by Patient: No Hx Alcohol Use: No Hx Substance Use: No Beliefs That Will Affect Care: None 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 Ability: Effective Physical Exam 2 Vital Signs (Past 24 Hours): Last Vital Signs Temp 37.0 C 06/22/18 08:04 Pulse 86 06/22/18 08:04 Resp 22 06/22/18 08:04 BP 139/76 06/22/18 08:04 Pulse Ox 98 06/22/18 08:04 Constitutional: WD/WN, vitals as above Respiratory: normal respiratory effort, lungs clear to auscultation Cardiovascular: RRR, no murmur, no edema Gastrointestinal (Abdomen): normal bowel sounds, soft, nontender, no hepatosplenomegaly Code Status & VTE Plan VTE Prophylaxis Plan VTE Prophylaxis will be ordered: Yes
--- NOTE | 2018-06-22 10:00 | Anesthesiology Consultation ---
Date of Service June 22, 2018 Assessment & Plan (1) Encounter for pre-operative examination: Chart Review Chart Review: Acceptable Risk for Surgery and Patient NOT seen in Pre Admission Testing Consults Requested none ASA ASA3 Proposed Anesthesia Anesthesia Type: MAC Risk / Benefits Reviewed With: PT / POA / Parent / Guardian, Accepts Plan and Informed Consent Obtained History Surgery Operation Date: 06/22/18 10:30 Proposed Procedures p Esophagogastroduodenoscopy Dr Suero - Viv Suero Height/Weight Height: 6 ft Weight: 134.1 kg Allergies Allergy/AdvReac Type Severity Reaction Status Date / Time metronidazole Allergy Severe see below Verified 06/16/18 03:51 amoxicillin Allergy Intermediate rash Verified 06/16/18 03:51 Medications Home Medications Medication Instructions Recorded Confirmed Last Taken Lactobacillus acidophilus 10,000 mmu cells PO DAILY 06/16/18 06/16/18 06/15/18 [Acidophilus] aspirin 81 mg PO DAILY 06/16/18 06/16/18 06/15/18 digoxin 125 mcg PO DAILY 06/16/18 06/16/18 06/15/18 ferrous sulfate 325 mg PO BID 06/16/18 06/16/18 06/15/18 finasteride 5 mg PO DAILY 06/16/18 06/16/18 06/15/18 furosemide 20 mg PO DAILY 06/16/18 06/16/18 06/15/18 hydrocodone-acetaminophen 1 tab PO BID PRN 06/16/18 06/16/18 Unknown losartan 50 mg PO DAILY 06/16/18 06/16/18 06/15/18 metformin 500 mg PO TIDM 06/16/18 06/16/18 06/15/18 metoprolol succinate 200 mg PO DAILY 06/16/18 06/16/18 06/15/18 pantoprazole 40 mg PO BID 06/16/18 06/16/18 06/15/18 potassium chloride 10 meq PO DAILY 06/16/18 06/16/18 06/15/18 tramadol 50 mg PO Q6 PRN 06/16/18 06/16/18 Unknown Active Medications Generic Name Dose Route Start Last Admin Trade Name Freq PRN Reason Stop Dose Admin Acetaminophen 1,000 mg 06/17/18 11:58 06/22/18 08:11 Ofirmev IV 07/17/18 11:57 1,000 mg Q8 PRN Administration Pain Hydrocodone Bitart/Acetaminophen 1 tab 06/17/18 12:07 06/18/18 12:26 Clute 5/325 PO 07/01/18 12:06 1 tab BID PRN Administration Pain, Moderate Aspirin 81 mg 06/16/18 10:14 06/22/18 08:19 Ecotrin PO 07/16/18 10:13 81 mg DAILY MARIYA Administration Al Hydrox/Mg Hydrox/ 0 ml 06/17/18 12:18 06/21/18 17:20 Simethicone 72 ml/ Lidocaine PO 07/17/18 12:17 15 ml HCl 24 ml/ BARCODE IDENTIFIER Q8H PRN Administration 1 ea Heartburn Digoxin 0.125 mg 06/16/18 16:00 06/21/18 16:21 Lanoxin PO 07/16/18 15:59 0.125 mg DAILY@1600 MARIYA Administration Docusate Sodium 100 mg 06/17/18 12:15 06/22/18 08:22 Colace PO 07/17/18 12:14 100 mg BID MARIYA Administration Ferrous Sulfate 325 mg 06/17/18 21:00 06/22/18 08:19 Feosol PO 07/17/18 20:59 325 mg BID MARIYA Administration Finasteride 5 mg 06/16/18 10:14 06/22/18 08:19 Proscar PO 07/16/18 10:13 5 mg DAILY MARIYA Administration Furosemide 20 mg 06/19/18 09:00 06/22/18 08:20 Lasix PO 07/19/18 08:59 20 mg DAILY MARIYA Administration Heparin Sodium (Porcine) 5,000 units 06/16/18 14:00 06/22/18 06:15 Heparin Sodium (Porcine) SQ 07/16/18 13:59 5,000 units Q8 MARIYA Administration Promethazine HCl 25 mg/ Sodium 51 mls @ 204 mls/hr 06/16/18 13:42 06/17/18 12 :20 Chloride IV 07/16/18 13:41 Infused Q6H PRN Infusion Nausea And Vomiting Pantoprazole Sodium 40 mg/ 10 mls @ 5 mls/min 06/17/18 12:30 06/22/18 08:12 Syringe IV 07/17/18 12:29 5 mls/min BID MARIYA Administration Ceftriaxone Sodium 2,000 mg/ 70 mls @ 100 mls/hr 06/18/18 10:30 06/22/18 09: 10 Dextrose IV 06/28/18 10:29 Infused DAILY MARIYA Infusion Protocol Insulin Aspart 0 units 06/17/18 16:30 06/22/18 07:52 Novolog Flexpen SC 07/17/18 16:29 Not Given ACHS MARIYA Lactobacillus Acidophilus 4 tab 06/16/18 10:14 06/22/18 08:20 Floranex PO 07/16/18 10:13 4 tab DAILY MARIYA Administration Losartan Potassium 50 mg 06/18/18 09:00 06/22/18 08:20 Cozaar PO 07/18/18 08:59 50 mg DAILY MARIYA Administration Magnesium Hydroxide 30 ml 06/17/18 12:10 06/17/18 12:59 Milk Of Magnesia PO 07/17/18 12:09 30 ml Q6H PRN Administration Constipation Metoprolol Succinate 200 mg 06/16/18 10:14 06/22/18 08:18 Toprol Xl PO 07/16/18 10:13 200 mg DAILY MARIYA Administration Ondansetron HCl 4 mg 06/16/18 10:46 06/17/18 07:48 Zofran IV 07/16/18 10:45 4 mg Q6H PRN Administration Nausea Potassium Chloride 10 meq 06/19/18 09:00 06/22/18 08:21 Klor-Con M10 PO 07/19/18 08:59 10 meq DAILY MARIYA Administration Simethicone 80 mg 06/17/18 12:04 06/20/18 22:10 Mylicon PO 07/17/18 12:03 80 mg Q6H PRN Administration Gas or Constipation Sucralfate 1 gm 06/19/18 17:00 06/22/18 08:12 Carafate PO 07/19/18 16:59 1 gm QID MARIYA Administration Tramadol HCl 50 mg 06/20/18 14:57 06/22/18 02:14 Ultram PO 07/20/18 14:56 50 mg Q8H PRN Administration pain Zolpidem Tartrate 5 mg 06/17/18 23:51 06/22/18 02:23 Ambien PO 07/17/18 23:50 5 mg HS PRN Administration Sleep Past Medical History Medical History Sepsis (Chronic) Acquired buried penis (Chronic) BPH without urinary obstruction (Chronic) Benign hypertension (Chronic) Chronic diastolic CHF (congestive heart failure) (Chronic) DM (diabetes mellitus), type 2, uncontrolled w/ophthalmic complication (Chronic) Diverticulosis of colon (without mention of hemorrhage) (Chronic) Exertional dyspnea (Chronic) Gastric ulcer with hemorrhage but without obstruction (Chronic) H/O Clostridium difficile infection (Chronic) Hemangioma of skin (Chronic) History of chronic atrial fibrillation (Chronic) Morbid obesity (Chronic) JUAN MANUEL (obstructive sleep apnea) (Chronic) Symptomatic anemia (Chronic) Urinary retention (Chronic) Social History Smoking Status: Never smoker Do You Dip or Chew Tobacco: No Hx Alcohol Use: No Hx Substance Use: No Review of Systems no chest pain or sob at rest Physical Exam Vital Signs Last Vital Signs Temp 36.6 C 06/22/18 09:45 Pulse 78 06/22/18 09:45 Resp 18 06/22/18 09:45 BP 135/73 06/22/18 09:45 Pulse Ox 96 06/22/18 09:45 Constitutional + morbidly obese ENMT Mouth: + poor dentition Thyromental Distance: > or= 3.5 Finger Breadths Mallampati Class: II Neck normal visual inspection Respiratory normal respiratory effort Auscultation: + diminished lung sounds Cardiovascular Rate/Rhythm: + abnormal rate and + abnormal rhythm Musculoskeletal Spine: no pain with cervical ROM Neurologic moves all extremities Psychiatric Orientation: alert and oriented x 3 Testing Electrocardiogram Date: 06/18/18 Findings: + AFIB @ (93) Chest X-Ray Date: 06/17/18 CLINICAL HISTORY: Sepsis. FINDINGS: An AP, portable, upright chest radiograph is compared to study dated 06/16/2018. The examination is degraded by portable technique and patient rotation. The heart is enlarged and there is atherosclerotic calcification of the thoracic aorta. There is mild pulmonary vascular congestion. Bibasilar atelectasis is noted. No focal airspace consolidation or large pleural effusion is identified. No pneumothorax is seen. The skeletal structures are osteopenic. The bony thorax is grossly intact. IMPRESSION: 1. Cardiomegaly with mild pulmonary vascular congestion. 2. No focal airspace consolidation or large pleural effusion is identified. Echocardiogram Date: 06/16/18 EF: 70 LV Function: normal Other Findings: + LVH Valvular Disease: + MS (mitral calcification) Laboratory Results 06/20/18 05:15 12/21/18 08:28 PT 11.4 Seconds (9.0-12.0) 06/16/18 03:12 INR 1.1 (0.9-1.1) 06/16/18 03:12 APTT 27.2 Seconds (21.0-31.0) 06/16/18 03:12 Hemoglobin A1c 7.4 % (4.5-5.6) H 06/17/18 05:41 Urine Color Rosie 06/16/18 07:10 Urine Appearance Turbid (Clear) H 06/16/18 07:10 Urine pH >= 9.0 (4.5-7.5) H 06/16/18 07:10 Ur Specific [place] 1.020 (1.000-1.030) 06/16/18 07:10 Urine Protein 4+ (Negative) H 06/16/18 07:10 Urine Glucose (UA) Negative (Negative) 06/16/18 07:10 Urine Ketones Trace (Negative) H 06/16/18 07:10 Urine Nitrite Positive (Negative) H 06/16/18 07:10 Ur Leukocyte Esterase 3+ (Negative) H 06/16/18 07:10 Urine WBC (Auto) >30 /hpf (0-5) H 06/16/18 07:10 Urine RBC (Auto) >30 /hpf (0-4) H 06/16/18 07:10 U Hyaline Cast (Auto) 0 /lpf (0-5) 06/16/18 07:10 U Epithel Cells (Auto) 5-10 /lpf (0-5) H 06/16/18 07:10 Urine Bacteria (Auto) 4+ (Negative) H 06/16/18 07:10 06/16/18 05:05 Blood Culture - Final Blood No growth 06/16/18 03:12 Blood Culture - Final Blood No growth 06/17/18 12:28 Gram Stain - Final Sputum, Expectorated Sputum Culture - Final Moderate normal renetta. 06/16/18 07:10 Urine Culture - Final Urine,Clean Catch Proteus mirabilis 06/22/18 07:41 POC Glucose 127 H
[2018-06-22] MEDS ORDERED: LIDOCAINE HCL 2% 2 ML VIAL/AMP(20MG/ML) INFIL ONE (10:22)
[2018-06-22] MEDS ORDERED: PROPOFOL IV EMULSION 10 MG/ML 20 ML VIAL IV ONE (10:22)
--- NOTE | 2018-06-22 10:49 | GI REPORT ---
Patient Name: Joseph Deleon Procedure Date: 06/22/2018 10:25 AM Date of : 1940 Admit Type: Inpatient Age: 77 Gender: Male Attending MD: Viv Suero DO Procedure: Upper GI endoscopy Providers: Viv Suero DO Referring MD: JYOTSNA KAUR Indications: Epigastric abdominal pain Medicines: Propofol per Anesthesia Complications: No immediate complications. Estimated blood loss: Minimal. Estimated Blood Loss: Estimated blood loss was minimal. Procedure: Pre-Anesthesia Assessment: - Prior to the procedure, a History and Physical was performed, and patient medications, allergies and sensitivities were reviewed. The patient's tolerance of previous anesthesia was reviewed. - The risks and benefits of the procedure and the sedation options and risks were discussed with the patient. All questions were answered and informed consent was obtained. - Patient identification and proposed procedure were verified prior to the procedure by the physician and the nurse. The procedure was verified in the pre-procedure area in the procedure room. - Mental Status Examination: alert and oriented. Airway Examination: normal oropharyngeal airway and neck mobility. Respiratory Examination: clear to auscultation. CV Examination: normal. Abdominal Examination: bowel sounds present, abdomen soft and non-tender, no masses or organomegaly noted. - ASA Grade Assessment: III - A patient with severe systemic disease. After obtaining informed consent, the endoscope was passed under direct vision. Throughout the procedure, the patient's blood pressure, pulse, and oxygen saturations were monitored continuously. The Endoscope was introduced through the mouth, and advanced to the second part of duodenum. The upper GI endoscopy was accomplished without difficulty. The patient tolerated the procedure well. Findings: Diffuse, white plaques were found in the entire esophagus. Cells for cytology were obtained by brushing. Verification of patient identification for the specimen was done by the physician and nurse using the patient's name and date. Estimated blood loss was minimal. The stomach was normal. The examined duodenum was normal. Impression: - Esophageal plaques were found, consistent with candidiasis. Cells for cytology obtained. - Normal stomach. - Normal examined duodenum. Recommendation: - Await pathology results. - Diflucan (fluconazole) 100 mg PO daily for 3 weeks. - [facility]. Viv Suero D.O. Viv Suero DO 06/22/2018 10:49:19 AM This report has been signed electronically. Note Initiated On: 06/22/2018 10:25 AM Number of Addenda: 0 I attest to the content of the Intraoperative Record and orders documented therein, exceptions below {[id number]}
--- NOTE | 2018-06-22 10:58 | Anesthesiology Progress Note ---
Date of Service June 22, 2018 Anesthesia Post Procedure Vital Signs Vital Signs: Temp Pulse Pulse Pulse Resp BP BP 06/22/18 10:55 73 18 142/66 H 06/22/18 10:41 36.6 C 74 18 127/60 135/73 06/22/18 09:45 36.6 C 78 18 135/73 06/22/18 08:04 37.0 C 86 22 139/76 06/22/18 03:35 36.4 C L 84 22 131/74 06/22/18 00:01 36.9 C 80 20 147/68 H 06/21/18 19:31 36.5 C 73 20 130/75 06/21/18 16:21 84 06/21/18 16:00 80 06/21/18 15:25 36.5 C 78 18 142/78 H 06/21/18 12:38 36.6 C 78 18 182/78 H Pulse Ox 06/22/18 10:55 94 06/22/18 10:41 96 06/22/18 09:45 96 06/22/18 08:04 98 06/22/18 03:35 91 06/22/18 00:01 94 06/21/18 19:31 94 06/21/18 16:21 06/21/18 16:00 06/21/18 15:25 93 06/21/18 12:38 95 Pain Intensity Right Groin: Pain Intensity: 3 Abdomen: Pain Intensity: 6 Scrotal: Pain Intensity: 3 Head: Pain Intensity: 5 Notes Mental Status: alert / awake / arousable Patient Amnestic to Procedure: Yes Nausea / Vomiting: adequately controlled Pain: adequately controlled Airway Patency, RR, SpO2: stable & adequate BP & HR: stable & adequate Hydration State: stable & adequate Anesthetic Complications: no major complications apparent and Pt Satisfied with anesthetic care
[2018-06-22] MEDS: FLUCONAZOLE 100 MG TAB PO SCH (13:11)
[2018-06-22] MEDS ORDERED: POT PHOSPHATE MONOBASIC W/ SOD TAB PO ONE (14:00)
--- NOTE | 2018-06-22 14:12 | Hospitalist Progress Note ---
Date of Service June 22, 2018 Assessment & Plan (1) Sepsis: Severe Sepsis Present on admission with tachycardia, elevated WBC 23K, Hypotension with elevated lactic acid Urine cx grew proteus mirabilis Received adequate IVF and did not require any pressor ID on board Abx changed to IV rocephin 2 gm daily Will change to Keflex PO 500 mg PO BID X14 days on discharge Stable (2) Epigastric abdominal pain: Possible related to gastritis/GERD Pain only occurs with eating and drinking Continue PPI and carafete for now GI on board and plan for EGD tomorrow GI recommended to check lipase and U/S of RUQ 06/22 EGD done showed diffuse, white plaques were found in the entire esophagus. consistent with candidiasis Starting on Diflucan (fluconazole) 100 mg PO daily for 3 weeks. Continue PPI BID (3) Lethargy: Possible related to narcotic and sedatives med will start on tramadol for the epigastric pain Resolved (4) Acute urinary retention: On chronic indwelling Foely for last 2-3 yrs follows with Urology in [place] and Dr Priscilla Zhang locally urinary retention due to blocked Patiño (due to significant amount of debris/ pus ) CT abdomen /pelvis 06/16/2018 showed wall thickening of the urinary bladder with extensive perivesicular stranding suggests acute cystitis. Patiño was changed by urology dr. Zhang where draining pus /concentrated urine removed Resolved (5) Atrial fibrillation with RVR: Present on admission with Afib with HR 140 Hx Chronic Afib In Afib with rate control Continue Toprol XL 200 mg daily /Digoxin 125 mcg daily Not a anticoagulation candidate for history of GI bleed/gastric ulcer, groin hemangioma Cardiology on board ECHO showed Transthoracic echo: 06/16/2018 Study is technically difficult but adequate for referral indication. A. fib with rapid ventricular response was present during the echocardiogram. There is mild concentric left ventricular hypertrophy. Left ventricular cavity is small and underfilled No regional wall motion abnormalities noted Qualitative left ventricular ejection fraction more than 70% hyperdynamic Right ventricle is hyperdynamic Aortic valve is mildly calcified Aortic stenosis is absent The aortic root was not visualized well enough to allow measurements, the proximal ascending aorta was mildly dilated with diameter of 4 cm (6) Rhabdomyolysis: due to fall /prolong immobilization//was on floor for apprx 5 hrs presented with elevated CPK > 4000k Received adequate IVF CK level back to normal Resolved (7) Pressure ulcer, stage II, skin breakdown: present on admission follows with Wound care clinic wound care on board (8) Scrotal varicose veins: follows with wound care -consulted ordered for off loading , change of position OOB to chair when able (9) Ulcer of scrotum: present on admission -chronic due to morbid obesity , pt stays in his lift chair whole day pt was asked to change position , off loading by wound care clinic for healing of pressure sore no drainage wound noted Continue wound care (10) Diabetic toe ulcer: Left 2nd toe -tip appears to be Necrotic follows with Podiatry Dr Padilla Arauz CT of lower ext shows no evidence of osteomyelitis vascular surgery on board, no surgical intervention needed Continue conservative management per podiary USG of lower ext shows mild arterial occlusive disease b/l (11) Hypertension: BP elevated On Toprol XL 200 mg daily, losartan 50mg Lasix 20mg resumed Continue monitor (12) Diabetes: Type 2 DM with CKD stage 3 /diabetic toe ulcer presented with hyperglycemia due to infection /sepsis pharmacy consulted for glycemic management HbA1c 7.4 on 06/17/18 (13) Chronic diastolic CHF (congestive heart failure): presented with hypovolumia /dehydration ECHO shows : flattend IVC , Hyperdynamic LV , EF > 70% Lasix 20mg IV resumed Monitor I/O (14) Obesity, morbid, BMI 40.0-49.9: BMI 40. 7 causing multiple co morbidities limited mobility , leading pressure sore in sacral and scrotal area urinary retention /bladder outlet obstruction requiring chronic indwelling patiño catheter /recurrent UTI Dietitian consulted -help with guideline to pt and family -low calorie intake / healthy diet (15) Unsteady gait: Continue PT/OT Does not interested to go to rehab Fall precaution (16) Acute renal failure superimposed on stage 3 chronic kidney disease: Due to severe sepsis and dehydration Creatinine on admission 1.7 Creatinine back to baseline Avoid NSAID's /contrast studies , nephrotoxins (17) Complicated UTI (urinary tract infection): Hx of recurrent UTI Urine cx grew proteus mirabilis Continue IV rocephin for now. will D/C on keflex Stable CODE STATUS : full code DVT PROPHYLAXIS : On Sub q heparin DISPOSITION ; Will discharge to rehab one medically stable Kellee Deleon: Phone number [phone]: At baseline patient able to walk with rolling walker, able to go to bathroom, take shower g Subjective Pt was seen and examined. Sitting in chair with no distress Pt said that he feels ok He said that he does not want to go to rehab He had EGD done this morning Continue to have epigastric tenderness with eating and drinking Denies any chest pain, palpitation, dizziness and SOB Physical Exam 2 Vital Signs (Past 24 Hours): Last Vital Signs Temp 36.4 C L 06/22/18 13:30 Pulse 81 06/22/18 13:30 Resp 18 06/22/18 13:30 BP 145/81 H 06/22/18 13:30 Pulse Ox 93 06/22/18 13:30 Physical Exam: General- No acute distress Head- atraumatic Eyes- PERRL, EOMI, ENT- oropharynx clear Neck- supple, no JVD Lungs- clear to auscultation Heart- irregular rhythm Abdomen- normal bowel sounds, soft, nontender Extremities- no calf tenderness, +edema with chronic venous stasis changes, left second toe tip area necrotic, no active drainage noted Neuro- alert, oriented, PERRL, EOMI; no facial palsy; Skin- warm & dry _ (1) Pressure ulcer, stage II, skin breakdown Laterality: unspecified laterality Pressure injury location: buttock Qualified Code(s): L89.302 - Pressure ulcer of unspecified buttock, stage 2 (2) Diabetes Chronic kidney disease stage: Diabetes mellitus complication detail: with foot ulcer Diabetes mellitus complication status: with skin complications 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 insulin use: unspecified correction insulin use status Diabetes mellitus macular edema: Diabetes mellitus type: type 2 Diabetic retinopathy severity: Laterality: Proliferative retinopathy type: Qualified Code(s): E11.621 - Type 2 diabetes mellitus with foot ulcer; L97.509 - Non-pressure chronic ulcer of other part of unspecified foot with unspecified severity (3) Rhabdomyolysis Encounter type: initial encounter Rhabdomyolysis type: traumatic Qualified Code(s): T79.6XXA - Traumatic ischemia of muscle, initial encounter (4) Acute renal failure superimposed on stage 3 chronic kidney disease Acute renal failure type: unspecified Qualified Code(s): N17.9 - Acute kidney failure, unspecified; N18.3 - Chronic kidney disease, stage 3 (moderate) (5) Sepsis Sepsis type: sepsis due to unspecified organism Qualified Code(s): A41.9 - Sepsis, unspecified organism (6) Diabetic toe ulcer Diabetes mellitus type: type 2 Laterality: left Non-pressure ulcer stage: unspecified non-pressure ulcer stage Qualified Code(s): E11.621 - Type 2 diabetes mellitus with foot ulcer; L97.529 - Non-pressure chronic ulcer of other part of left foot with unspecified severity (7) Hypertension Hypertension type: unspecified Qualified Code(s): I10 - Essential (primary) hypertension
[2018-06-22] MEDS: DIGOXIN 0.125 MG TAB PO SCH (16:23)
[2018-06-22] MEDS: ALUMINUM/MAGNESIUM SUSP 72 ML, LIDOCAINE HCL VISCOUS 2% 24 ML, BARCODE IDENTIFIER 1 EA PO PRN (20:31)
[2018-06-23] MEDS: ZOLPIDEM TARTRATE 5 MG TAB PO PRN ×2 (00:05→22:43)
[2018-06-23] MEDS: TRAMADOL HCL 50 MG TABLET PO PRN ×3 (00:05→20:40)
[2018-06-23] MEDS: HEPARIN SOD 5,000 UNIT/0.5 ML VIAL SQ SCH ×3 (05:31→20:44)
[2018-06-23] MEDS: ACETAMINOPHEN 1000 MG/100 ML IV IV PRN ×3 (05:31→22:50)
[2018-06-23] MEDS: INSULIN ASPART 100 UNITS/ML 3 ML PEN SC SCH ×4 (08:07→20:43)
[2018-06-23] MEDS: FERROUS SULFATE 325 MG TAB PO SCH ×2 (08:07→20:45)
[2018-06-23] MEDS: FINASTERIDE 5 MG TAB PO SCH (08:07)
[2018-06-23] MEDS: POTASSIUM CHLORIDE 10 MEQ TABCR PO SCH (08:08)
[2018-06-23] MEDS: ASPIRIN 81 MG ECTAB PO SCH (08:08)
[2018-06-23] MEDS: FUROSEMIDE 20 MG TAB PO SCH (08:08)
[2018-06-23] MEDS: FLUCONAZOLE 100 MG TAB PO SCH (08:08)
[2018-06-23] MEDS: METFORMIN HCL 500 MG TAB PO SCH ×3 (08:09→16:39)
[2018-06-23] MEDS: METOPROLOL SUCC 50MG EXT REL TAB PO SCH (08:09)
[2018-06-23] MEDS: LOSARTAN POTASSIUM 50 MG TAB PO SCH (08:10)
[2018-06-23] MEDS: LACTOBACILLUS ACIDOPHILUS (FLORANEX) TAB PO SCH (08:10)
[2018-06-23] MEDS: DOCUSATE SODIUM 100 MG CAP PO SCH ×2 (08:10→20:42)
[2018-06-23] MEDS: SUCRALFATE 1 GM/10 ML UDC PO SCH ×4 (08:11→20:41)
[2018-06-23] MEDS: cefTRIAXone SODIUM 2,000 MG in DEXTROSE 5% 50 ML IV SCH (09:06)
[2018-06-23] MEDS: PANTOprazole 40 MG in SYRINGE 0 ML IV SCH ×2 (09:06→20:42)
--- NOTE | 2018-06-23 12:02 | Cardiology Progress Note ---
Date of Service June 23, 2018 Assessment & Plan (1) Chronic atrial fibrillation: Rate controlled on telemetry. Continue Toprol-XL 200 mg and digoxin 125 mcg daily. Anticoagulation discontinued 2017 due to large volume bleeding related to large perineal/scrotal vascular malformation. Diltiazem discontinued in the past due to bradycardia. No further inpatient cardiac testing or intervention at this time. Cardiology will sign off. Please call with questions. (2) Chronic diastolic heart failure: Compensated. Continue Lasix 20 mg daily. Follow volume status, GFR, electrolytes daily. (3) Complicated UTI (urinary tract infection): Antibiotics per internal medicine/urology. (4) Chronic indwelling Baires catheter: (5) Epigastric abdominal pain: EGD revealing diffuse esophageal white plaques suggesting candidiasis. Patient symptoms improving with Diflucan. Subjective Patient seen and examined at the bedside. Epigastric discomfort improved. Currently being treated with Diflucan for esophageal candidiasis. EGD revealed diffuse esophageal plaques. Telemetry demonstrates atrial fibrillation with controlled ventricular response. Patient offers no concerns/complaints from a cardiovascular perspective at this time. Review of Systems All systems reviewed & are unremarkable except as noted in HPI & below Physical Exam 2 Vital Signs (Past 24 Hours): Last Vital Signs Temp 36.6 C 06/23/18 08:24 Pulse 82 06/23/18 08:24 Resp 18 06/23/18 08:24 BP 148/92 H 06/23/18 08:24 Pulse Ox 93 06/23/18 08:24 Physical Exam: General: NAD, AAO x3, morbid obesity. Chronically ill. HEENT : Normocephalic. Atraumatic. Conjunctiva pink, no scleral icterus. Neck: No carotid bruits, the carotid upstrokes are brisk. No JVD. No HJR Heart: Irregular rhythm, normal S-1 and S-2 no S-3 or S-4 gallop. No murmurs or rub appreciated. PMI is not displaced. No RV heave. Lungs: Clear bilateral without rales , rhonchi, or wheeze. Abdomen: Normal bowel sounds. Soft. Nontender. No masses or organomegaly. No abdominal bruits. Extremities: Trace bilateral ankle and pretibial edema with stasis changes. Pulses: radial=2/4. Neuro: Cranial nerves grossly intact. No focal motor deficit.
--- NOTE | 2018-06-23 12:41 | Hospitalist Progress Note ---
Date of Service June 23, 2018 Assessment & Plan (1) Sepsis: Severe Sepsis Present on admission with tachycardia, elevated WBC 23K, Hypotension with elevated lactic acid Urine cx grew proteus mirabilis Received adequate IVF and did not require any pressor ID on board Abx changed to IV rocephin 2 gm daily Will change to Keflex PO 500 mg PO BID X14 days on discharge Stable (2) Epigastric abdominal pain: Possible related to gastritis/GERD Pain only occurs with eating and drinking Continue PPI and carafete for now GI on board and plan for EGD tomorrow GI recommended to check lipase and U/S of RUQ 06/23 EGD done showed diffuse, white plaques were found in the entire esophagus. consistent with candidiasis Conitnue Diflucan (fluconazole) 100 mg PO daily for 3 weeks. Continue PPI BID Symptoms improve today (3) Lethargy: Possible related to narcotic and sedatives med will start on tramadol for the epigastric pain Resolved (4) Acute urinary retention: On chronic indwelling Foely for last 2-3 yrs follows with Urology in [place] and Dr Priscilla Zhang locally urinary retention due to blocked Patiño (due to significant amount of debris/ pus ) CT abdomen /pelvis 06/16/2018 showed wall thickening of the urinary bladder with extensive perivesicular stranding suggests acute cystitis. Patiño was changed by urology dr. Zhang where draining pus /concentrated urine removed Resolved (5) Atrial fibrillation with RVR: Present on admission with Afib with HR 140 Hx Chronic Afib In Afib with rate control Continue Toprol XL 200 mg daily /Digoxin 125 mcg daily Not a anticoagulation candidate for history of GI bleed/gastric ulcer, groin hemangioma Cardiology on board ECHO showed Transthoracic echo: 06/16/2018 Study is technically difficult but adequate for referral indication. A. fib with rapid ventricular response was present during the echocardiogram. There is mild concentric left ventricular hypertrophy. Left ventricular cavity is small and underfilled No regional wall motion abnormalities noted Qualitative left ventricular ejection fraction more than 70% hyperdynamic Right ventricle is hyperdynamic Aortic valve is mildly calcified Aortic stenosis is absent The aortic root was not visualized well enough to allow measurements, the proximal ascending aorta was mildly dilated with diameter of 4 cm Stable (6) Rhabdomyolysis: due to fall /prolong immobilization//was on floor for apprx 5 hrs presented with elevated CPK > 4000k Received adequate IVF CK level back to normal Resolved (7) Pressure ulcer, stage II, skin breakdown: present on admission follows with Wound care clinic wound care on board (8) Scrotal varicose veins: follows with wound care -consulted ordered for off loading , change of position OOB to chair when able (9) Ulcer of scrotum: present on admission -chronic due to morbid obesity , pt stays in his lift chair whole day pt was asked to change position , off loading by wound care clinic for healing of pressure sore no drainage wound noted Continue wound care (10) Diabetic toe ulcer: Left 2nd toe -tip appears to be Necrotic follows with Podiatry Dr Padilla Arauz CT of lower ext shows no evidence of osteomyelitis vascular surgery on board, no surgical intervention needed Continue conservative management per podiary USG of lower ext shows mild arterial occlusive disease b/l (11) Hypertension: BP elevated On Toprol XL 200 mg daily, losartan 50mg and lasix 20mg Continue monitor (12) Diabetes: Type 2 DM with CKD stage 3 /diabetic toe ulcer presented with hyperglycemia due to infection /sepsis pharmacy consulted for glycemic management HbA1c 7.4 on 06/17/18 (13) Chronic diastolic CHF (congestive heart failure): presented with hypovolumia /dehydration ECHO shows : flattend IVC , Hyperdynamic LV , EF > 70% Continue lasix 20 mg Monitor I/O (14) Obesity, morbid, BMI 40.0-49.9: BMI 40. 7 causing multiple co morbidities limited mobility , leading pressure sore in sacral and scrotal area urinary retention /bladder outlet obstruction requiring chronic indwelling patiño catheter /recurrent UTI Dietitian consulted -help with guideline to pt and family -low calorie intake / healthy diet (15) Unsteady gait: Continue PT/OT Does not interested to go to rehab Fall precaution (16) Acute renal failure superimposed on stage 3 chronic kidney disease: Due to severe sepsis and dehydration Creatinine on admission 1.7 Creatinine back to baseline Avoid NSAID's /contrast studies , nephrotoxins (17) Complicated UTI (urinary tract infection): Hx of recurrent UTI Urine cx grew proteus mirabilis Continue IV rocephin for now. will D/C on keflex Stable CODE STATUS : full code DVT PROPHYLAXIS : On Sub q heparin DISPOSITION ; Waiting for placement to rehab Will transfer to medical Kellee Deleon: Phone number [phone]: At baseline patient able to walk with rolling walker, able to go to bathroom, take shower g Subjective Pt was seen and examined Lying in bed with no distress Pt said that his epigastric tenderness improves Pt gave permission today to speak to his for update I spoke to his today and provided update Denies any chest pain, palpitation, dizziness and SOB Physical Exam 2 Vital Signs (Past 24 Hours): Last Vital Signs Temp 36.6 C 06/23/18 08:24 Pulse 82 06/23/18 08:24 Resp 18 06/23/18 08:24 BP 148/92 H 06/23/18 08:24 Pulse Ox 93 06/23/18 08:24 Physical Exam: General- No acute distress Head- atraumatic Eyes- PERRL, EOMI, ENT- oropharynx clear Neck- supple, no JVD Lungs- clear to auscultation Heart- irregular rhythm Abdomen- normal bowel sounds, soft, nontender Extremities- no calf tenderness, +edema with chronic venous stasis changes, left second toe tip area necrotic, no active drainage noted Neuro- alert, oriented, PERRL, EOMI; no facial palsy; Skin- warm & dry _ (1) Pressure ulcer, stage II, skin breakdown Laterality: unspecified laterality Pressure injury location: buttock Qualified Code(s): L89.302 - Pressure ulcer of unspecified buttock, stage 2 (2) Diabetes Chronic kidney disease stage: Diabetes mellitus complication detail: with foot ulcer Diabetes mellitus complication status: with skin complications 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 insulin use: unspecified fci insulin use status Diabetes mellitus macular edema: Diabetes mellitus type: type 2 Diabetic retinopathy severity: Laterality: Proliferative retinopathy type: Qualified Code(s): E11.621 - Type 2 diabetes mellitus with foot ulcer; L97.509 - Non-pressure chronic ulcer of other part of unspecified foot with unspecified severity (3) Rhabdomyolysis Encounter type: initial encounter Rhabdomyolysis type: traumatic Qualified Code(s): T79.6XXA - Traumatic ischemia of muscle, initial encounter (4) Acute renal failure superimposed on stage 3 chronic kidney disease Acute renal failure type: unspecified Qualified Code(s): N17.9 - Acute kidney failure, unspecified; N18.3 - Chronic kidney disease, stage 3 (moderate) (5) Sepsis Sepsis type: sepsis due to unspecified organism Qualified Code(s): A41.9 - Sepsis, unspecified organism (6) Diabetic toe ulcer Diabetes mellitus type: type 2 Laterality: left Non-pressure ulcer stage: unspecified non-pressure ulcer stage Qualified Code(s): E11.621 - Type 2 diabetes mellitus with foot ulcer; L97.529 - Non-pressure chronic ulcer of other part of left foot with unspecified severity (7) Hypertension Hypertension type: unspecified Qualified Code(s): I10 - Essential (primary) hypertension
--- NOTE | 2018-06-23 13:11 | Pharmacy Report ---
Pharmacy Glycemic Sign Off Nt - Date of Service June 23, 2018 - Assessment & Plan ASSESSMENT: * BSG's ranging 109-125 mg/dL over the last 24 hours * Patient is on home metformin dose, has not required any Lantus, and is on a stable Novolog regimen since 06/21 PLAN FOR INPATIENT GLYCEMIC CONTROL: No changes needed to current regimen. * No basal insulin required * Continue metformin 500 mg po TID * Continue NovoLog per scale ACHS/Q6hrs while NPO * Goal range = 120-160 mg/dl * CF = 15 mg/dl/unit * CR = 1 unit for every 8 g CHO consumed Pharmacy is signing off of glycemic consult and will no longer be making adjustments to inpatient regimen. Please feel free to re-consult if needed. Thank you.
[2018-06-23] MEDS: DIGOXIN 0.125 MG TAB PO SCH (16:39)
[2018-06-24] MEDS: ALUMINUM/MAGNESIUM SUSP 72 ML, LIDOCAINE HCL VISCOUS 2% 24 ML, BARCODE IDENTIFIER 1 EA PO PRN ×2 (04:49→14:41)
[2018-06-24] MEDS: TRAMADOL HCL 50 MG TABLET PO PRN ×3 (04:55→20:10)
[2018-06-24] MEDS: HEPARIN SOD 5,000 UNIT/0.5 ML VIAL SQ SCH ×3 (06:04→21:45)
[2018-06-24] MEDS: INSULIN ASPART 100 UNITS/ML 3 ML PEN SC SCH ×4 (09:02→20:17)
[2018-06-24] MEDS: SUCRALFATE 1 GM/10 ML UDC PO SCH ×4 (09:05→20:11)
[2018-06-24] MEDS: METFORMIN HCL 500 MG TAB PO SCH ×3 (09:06→17:42)
[2018-06-24] MEDS: LOSARTAN POTASSIUM 50 MG TAB PO SCH (09:07)
[2018-06-24] MEDS: ASPIRIN 81 MG ECTAB PO SCH (09:08)
[2018-06-24] MEDS: FLUCONAZOLE 100 MG TAB PO SCH (09:08)
[2018-06-24] MEDS: FERROUS SULFATE 325 MG TAB PO SCH ×2 (09:09→20:13)
[2018-06-24] MEDS: LACTOBACILLUS ACIDOPHILUS (FLORANEX) TAB PO SCH (09:10)
[2018-06-24] MEDS: POTASSIUM CHLORIDE 10 MEQ TABCR PO SCH (09:10)
[2018-06-24] MEDS: FINASTERIDE 5 MG TAB PO SCH (09:11)
[2018-06-24] MEDS: FUROSEMIDE 20 MG TAB PO SCH (09:11)
[2018-06-24] MEDS: METOPROLOL SUCC 50MG EXT REL TAB PO SCH (09:11)
[2018-06-24] MEDS: PANTOprazole 40 MG in SYRINGE 0 ML IV SCH ×2 (09:15→20:13)
[2018-06-24] MEDS: ACETAMINOPHEN 1000 MG/100 ML IV IV PRN ×2 (09:17→23:33)
[2018-06-24] MEDS: DOCUSATE SODIUM 100 MG CAP PO SCH ×2 (09:19→20:14)
[2018-06-24] MEDS: cefTRIAXone SODIUM 2,000 MG in DEXTROSE 5% 50 ML IV SCH (09:58)
--- NOTE | 2018-06-24 16:55 | Hospitalist Progress Note ---
Date of Service June 24, 2018 Assessment & Plan (1) Sepsis: Severe Sepsis Present on admission with tachycardia, elevated WBC 23K, Hypotension with elevated lactic acid Urine cx grew proteus mirabilis Received adequate IVF and did not require any pressor ID on board Abx changed to IV rocephin 2 gm daily Will change to Keflex PO 500 mg PO BID X14 days on discharge Stable (2) Epigastric abdominal pain: Possible related to gastritis/GERD Pain only occurs with eating and drinking Continue PPI and carafete for now GI on board and plan for EGD tomorrow GI recommended to check lipase and U/S of RUQ 06/24 EGD done showed diffuse, white plaques were found in the entire esophagus. consistent with candidiasis Continue Diflucan (fluconazole) 100 mg PO daily for 3 weeks. Continue PPI BID Symptoms slightly improve today (3) Lethargy: Possible related to narcotic and sedatives med will start on tramadol for the epigastric pain Resolved (4) Acute urinary retention: On chronic indwelling Foely for last 2-3 yrs follows with Urology in [place] and Dr Priscilla Zhang locally urinary retention due to blocked Patiño (due to significant amount of debris/ pus ) CT abdomen /pelvis 06/16/2018 showed wall thickening of the urinary bladder with extensive perivesicular stranding suggests acute cystitis. Patiño was changed by urology dr. Zhang where draining pus /concentrated urine removed Resolved (5) Atrial fibrillation with RVR: Present on admission with Afib with HR 140 Hx Chronic Afib In Afib with rate control Continue Toprol XL 200 mg daily /Digoxin 125 mcg daily Not a anticoagulation candidate for history of GI bleed/gastric ulcer, groin hemangioma Cardiology on board ECHO showed Transthoracic echo: 06/16/2018 Study is technically difficult but adequate for referral indication. A. fib with rapid ventricular response was present during the echocardiogram. There is mild concentric left ventricular hypertrophy. Left ventricular cavity is small and underfilled No regional wall motion abnormalities noted Qualitative left ventricular ejection fraction more than 70% hyperdynamic Right ventricle is hyperdynamic Aortic valve is mildly calcified Aortic stenosis is absent The aortic root was not visualized well enough to allow measurements, the proximal ascending aorta was mildly dilated with diameter of 4 cm Stable (6) Rhabdomyolysis: due to fall /prolong immobilization//was on floor for apprx 5 hrs presented with elevated CPK > 4000k Received adequate IVF CK level back to normal Resolved (7) Pressure ulcer, stage II, skin breakdown: present on admission follows with Wound care clinic wound care on board (8) Scrotal varicose veins: follows with wound care -consulted ordered for off loading , change of position OOB to chair when able (9) Ulcer of scrotum: present on admission -chronic due to morbid obesity , pt stays in his lift chair whole day pt was asked to change position , off loading by wound care clinic for healing of pressure sore no drainage wound noted Continue wound care (10) Diabetic toe ulcer: Left 2nd toe -tip appears to be Necrotic follows with Podiatry Dr Padilla Arauz CT of lower ext shows no evidence of osteomyelitis vascular surgery on board, no surgical intervention needed Continue conservative management per podiary USG of lower ext shows mild arterial occlusive disease b/l (11) Hypertension: BP elevated On Toprol XL 200 mg daily, losartan 50mg and lasix 20mg Continue monitor (12) Diabetes: Type 2 DM with CKD stage 3 /diabetic toe ulcer presented with hyperglycemia due to infection /sepsis pharmacy consulted for glycemic management HbA1c 7.4 on 06/17/18 (13) Chronic diastolic CHF (congestive heart failure): presented with hypovolumia /dehydration ECHO shows : flattend IVC , Hyperdynamic LV , EF > 70% Continue lasix 20 mg Monitor I/O (14) Obesity, morbid, BMI 40.0-49.9: BMI 40. 7 causing multiple co morbidities limited mobility , leading pressure sore in sacral and scrotal area urinary retention /bladder outlet obstruction requiring chronic indwelling patiño catheter /recurrent UTI Dietitian consulted -help with guideline to pt and family -low calorie intake / healthy diet (15) Unsteady gait: Continue PT/OT Does not interested to go to rehab Fall precaution (16) Acute renal failure superimposed on stage 3 chronic kidney disease: Due to severe sepsis and dehydration Creatinine on admission 1.7 Creatinine back to baseline Avoid NSAID's /contrast studies , nephrotoxins (17) Complicated UTI (urinary tract infection): Hx of recurrent UTI Urine cx grew proteus mirabilis Continue IV rocephin for now. will D/C on keflex Stable CODE STATUS : full code DVT PROPHYLAXIS : On Sub q heparin DISPOSITION ; Waiting for placement to rehab Subjective Pt was seen and examined. Lying in bed with no distress Continue to have mid epigastric tenderness with swallowing Denies any chest pain, palpitation and SOB Physical Exam 2 Vital Signs (Past 24 Hours): Last Vital Signs Temp 36.5 C 06/24/18 15:30 Pulse 82 06/24/18 15:30 Resp 20 06/24/18 15:30 BP 118/69 06/24/18 15:30 Pulse Ox 96 06/24/18 15:30 Physical Exam: General- No acute distress Head- atraumatic Eyes- PERRL, EOMI, ENT- oropharynx clear Neck- supple, no JVD Lungs- clear to auscultation Heart- irregular rhythm Abdomen- normal bowel sounds, soft, nontender Extremities- no calf tenderness, +edema with chronic venous stasis changes, left second toe tip area necrotic, no active drainage noted Neuro- alert, oriented, PERRL, EOMI; no facial palsy; Skin- warm & dry _ (1) Pressure ulcer, stage II, skin breakdown Laterality: unspecified laterality Pressure injury location: buttock Qualified Code(s): L89.302 - Pressure ulcer of unspecified buttock, stage 2 (2) Diabetes Chronic kidney disease stage: Diabetes mellitus complication detail: with foot ulcer Diabetes mellitus complication status: with skin complications Diabetes mellitus penitentiary insulin use: unspecified regional 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 insulin 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 status Diabetes mellitus macular edema: Diabetes mellitus type: type 2 Diabetic retinopathy severity: Laterality: Proliferative retinopathy type: Qualified Code(s): E11.621 - Type 2 diabetes mellitus with foot ulcer; L97.509 - Non-pressure chronic ulcer of other part of unspecified foot with unspecified severity (3) Rhabdomyolysis Encounter type: initial encounter Rhabdomyolysis type: traumatic Qualified Code(s): T79.6XXA - Traumatic ischemia of muscle, initial encounter (4) Acute renal failure superimposed on stage 3 chronic kidney disease Acute renal failure type: unspecified Qualified Code(s): N17.9 - Acute kidney failure, unspecified; N18.3 - Chronic kidney disease, stage 3 (moderate) (5) Sepsis Sepsis type: sepsis due to unspecified organism Qualified Code(s): A41.9 - Sepsis, unspecified organism (6) Diabetic toe ulcer Diabetes mellitus type: type 2 Laterality: left Non-pressure ulcer stage: unspecified non-pressure ulcer stage Qualified Code(s): E11.621 - Type 2 diabetes mellitus with foot ulcer; L97.529 - Non-pressure chronic ulcer of other part of left foot with unspecified severity (7) Hypertension Hypertension type: unspecified Qualified Code(s): I10 - Essential (primary) hypertension
[2018-06-24] MEDS: DIGOXIN 0.125 MG TAB PO SCH (17:40)
[2018-06-24] MEDS: ZOLPIDEM TARTRATE 5 MG TAB PO PRN (23:02)
[2018-06-25] MEDS: HEPARIN SOD 5,000 UNIT/0.5 ML VIAL SQ SCH ×3 (05:53→21:36)
[2018-06-25] MEDS: TRAMADOL HCL 50 MG TABLET PO PRN ×3 (05:53→20:02)
[2018-06-25] MEDS: PANTOprazole 40 MG in SYRINGE 0 ML IV SCH (08:11)
[2018-06-25] MEDS: FERROUS SULFATE 325 MG TAB PO SCH ×2 (08:12→21:30)
[2018-06-25] MEDS: FINASTERIDE 5 MG TAB PO SCH (08:12)
[2018-06-25] MEDS: POTASSIUM CHLORIDE 10 MEQ TABCR PO SCH (08:13)
[2018-06-25] MEDS: FLUCONAZOLE 100 MG TAB PO SCH (08:13)
[2018-06-25] MEDS: METOPROLOL SUCC 50MG EXT REL TAB PO SCH (08:14)
[2018-06-25] MEDS: LACTOBACILLUS ACIDOPHILUS (FLORANEX) TAB PO SCH (08:16)
[2018-06-25] MEDS: SUCRALFATE 1 GM/10 ML UDC PO SCH ×4 (08:16→21:30)
[2018-06-25] MEDS: LOSARTAN POTASSIUM 50 MG TAB PO SCH (08:18)
[2018-06-25] MEDS: cephALEXin 500 MG CAP PO SCH ×2 (08:18→21:29)
[2018-06-25] MEDS: METFORMIN HCL 500 MG TAB PO SCH ×3 (08:18→17:23)
[2018-06-25] MEDS: ASPIRIN 81 MG ECTAB PO SCH (08:19)
[2018-06-25] MEDS: FUROSEMIDE 20 MG TAB PO SCH (08:19)
[2018-06-25] MEDS: DOCUSATE SODIUM 100 MG CAP PO SCH ×2 (08:28→21:30)
[2018-06-25] MEDS: INSULIN ASPART 100 UNITS/ML 3 ML PEN SC SCH ×4 (08:30→21:34)
[2018-06-25] MEDS: ALUMINUM/MAGNESIUM SUSP 72 ML, LIDOCAINE HCL VISCOUS 2% 24 ML, BARCODE IDENTIFIER 1 EA PO PRN ×2 (08:32→16:09)
--- NOTE | 2018-06-25 08:32 | Anesthesiology Progress Note ---
Date of Service June 25, 2018 Anesthesia Post Procedure Vital Signs Vital Signs: Temp Pulse Pulse Resp BP Pulse Ox 06/25/18 07:19 36.8 C 78 16 114/72 95 06/24/18 23:42 36.5 C 80 20 127/58 L 96 06/24/18 17:40 82 06/24/18 15:30 36.5 C 82 20 118/69 96 Pain Intensity Right Groin: Pain Intensity: 3 Abdomen: Pain Intensity: 3 Scrotal: Pain Intensity: 3 Head: Pain Intensity: 6 Notes Mental Status: alert / awake / arousable and participated in evaluation Nausea / Vomiting: adequately controlled Pain: adequately controlled Airway Patency, RR, SpO2: stable & adequate BP & HR: stable & adequate Hydration State: stable & adequate
--- NOTE | 2018-06-25 15:47 | Hospitalist Progress Note ---
Date of Service June 25, 2018 Assessment & Plan (1) Sepsis: Severe Sepsis Present on admission with tachycardia, elevated WBC 23K, Hypotension with elevated lactic acid Urine cx grew proteus mirabilis Received adequate IVF and did not require any pressor ID on board Received IV rocephin 2 gm daily for 7days. Rocephin changed to Keflex PO 500 mg PO BID to complete and addiotional 7 days. Stable (2) Epigastric abdominal pain: Possible related to gastritis/GERD Pain only occurs with eating and drinking Continue PPI and carafete for now GI on board and plan for EGD tomorrow GI recommended to check lipase and U/S of RUQ 06/25 EGD done showed diffuse, white plaques were found in the entire esophagus consistent with candidiasis Continue Diflucan (fluconazole) 100 mg PO daily for 3 weeks. Continue PPI BID Clinically improves (3) Lethargy: Possible related to narcotic and sedatives med will start on tramadol for the epigastric pain Resolved (4) Acute urinary retention: On chronic indwelling Foely for last 2-3 yrs follows with Urology in [place] and Dr Priscilla Zhang locally urinary retention due to blocked Patiño (due to significant amount of debris/ pus ) CT abdomen /pelvis 06/16/2018 showed wall thickening of the urinary bladder with extensive perivesicular stranding suggests acute cystitis. Patiño was changed by urology dr. Zhang where draining pus /concentrated urine removed Resolved (5) Atrial fibrillation with RVR: Present on admission with Afib with HR 140 Hx Chronic Afib In Afib with rate control Continue Toprol XL 200 mg daily /Digoxin 125 mcg daily Not a anticoagulation candidate for history of GI bleed/gastric ulcer, groin hemangioma Cardiology on board ECHO showed Transthoracic echo: 06/16/2018 Study is technically difficult but adequate for referral indication. A. fib with rapid ventricular response was present during the echocardiogram. There is mild concentric left ventricular hypertrophy. Left ventricular cavity is small and underfilled No regional wall motion abnormalities noted Qualitative left ventricular ejection fraction more than 70% hyperdynamic Right ventricle is hyperdynamic Aortic valve is mildly calcified Aortic stenosis is absent The aortic root was not visualized well enough to allow measurements, the proximal ascending aorta was mildly dilated with diameter of 4 cm Stable (6) Rhabdomyolysis: due to fall /prolong immobilization//was on floor for apprx 5 hrs presented with elevated CPK > 4000k Received adequate IVF CK level back to normal Resolved (7) Pressure ulcer, stage II, skin breakdown: present on admission follows with Wound care clinic wound care on board (8) Scrotal varicose veins: follows with wound care -consulted ordered for off loading , change of position OOB to chair when able (9) Ulcer of scrotum: present on admission -chronic due to morbid obesity , pt stays in his lift chair whole day pt was asked to change position , off loading by wound care clinic for healing of pressure sore no drainage wound noted Continue wound care (10) Diabetic toe ulcer: Left 2nd toe -tip appears to be Necrotic follows with Podiatry Dr Padilla Arauz CT of lower ext shows no evidence of osteomyelitis vascular surgery on board, no surgical intervention needed Continue conservative management per podiary USG of lower ext shows mild arterial occlusive disease b/l (11) Hypertension: BP elevated On Toprol XL 200 mg daily, losartan 50mg and lasix 20mg Continue monitor (12) Diabetes: Type 2 DM with CKD stage 3 /diabetic toe ulcer presented with hyperglycemia due to infection /sepsis pharmacy consulted for glycemic management HbA1c 7.4 on 06/17/18 (13) Chronic diastolic CHF (congestive heart failure): presented with hypovolumia /dehydration ECHO shows : flattend IVC , Hyperdynamic LV , EF > 70% Continue lasix 20 mg Monitor I/O (14) Obesity, morbid, BMI 40.0-49.9: BMI 40. 7 causing multiple co morbidities limited mobility , leading pressure sore in sacral and scrotal area urinary retention /bladder outlet obstruction requiring chronic indwelling patiño catheter /recurrent UTI Dietitian consulted -help with guideline to pt and family -low calorie intake / healthy diet (15) Unsteady gait: Continue PT/OT Does not interested to go to rehab Fall precaution (16) Acute renal failure superimposed on stage 3 chronic kidney disease: Due to severe sepsis and dehydration Creatinine on admission 1.7 Creatinine back to baseline Avoid NSAID's /contrast studies , nephrotoxins (17) Complicated UTI (urinary tract infection): Hx of recurrent UTI Urine cx grew proteus mirabilis Continue IV rocephin for now. will D/C on keflex Stable CODE STATUS : full code DVT PROPHYLAXIS : On Sub q heparin DISPOSITION ; Waiting for placement to rehab (Possible bed available on Monday) Subjective Pt was seen and examined Lying in bed with no distress He said that his epigastric tenderness slightly improves Only has pain with swallowing Denies any chest pain, palpitation and SOB Physical Exam 2 Vital Signs (Past 24 Hours): Last Vital Signs Temp 36.6 C 06/25/18 14:52 Pulse 80 06/25/18 14:52 Resp 18 06/25/18 14:52 BP 113/68 06/25/18 14:52 Pulse Ox 92 06/25/18 14:52 Physical Exam: General- No acute distress Head- atraumatic Eyes- PERRL, EOMI, ENT- oropharynx clear Neck- supple, no JVD Lungs- clear to auscultation Heart- irregular rhythm Abdomen- normal bowel sounds, soft, nontender Extremities- no calf tenderness, +edema with chronic venous stasis changes, left second toe tip area necrotic, no active drainage noted Neuro- alert, oriented, PERRL, EOMI; no facial palsy; Skin- warm & dry _ (1) Sepsis Sepsis type: sepsis due to unspecified organism Qualified Code(s): A41.9 - Sepsis, unspecified organism (2) Rhabdomyolysis Encounter type: initial encounter Rhabdomyolysis type: traumatic Qualified Code(s): T79.6XXA - Traumatic ischemia of muscle, initial encounter (3) Pressure ulcer, stage II, skin breakdown Pressure injury location: buttock Laterality: unspecified laterality Qualified Code(s): L89.302 - Pressure ulcer of unspecified buttock, stage 2 (4) Diabetic toe ulcer Diabetes mellitus type: type 2 Laterality: left Non-pressure ulcer stage: unspecified non-pressure ulcer stage Qualified Code(s): E11.621 - Type 2 diabetes mellitus with foot ulcer; L97.529 - Non-pressure chronic ulcer of other part of left foot with unspecified severity (5) Hypertension Hypertension type: unspecified Qualified Code(s): I10 - Essential (primary) hypertension (6) Diabetes Diabetes mellitus type: type 2 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 helper insulin use 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 Diabetes mellitus complication status : with skin complications Diabetes mellitus complication detail: with foot ulcer Diabetic retinopathy severity: Proliferative retinopathy type: Diabetes mellitus macular edema: Laterality: Chronic kidney disease stage: Qualified Code(s): E11.621 - Type 2 diabetes mellitus with foot ulcer; L97.509 - Non-pressure chronic ulcer of other part of unspecified foot with unspecified severity (7) Acute renal failure superimposed on stage 3 chronic kidney disease Acute renal failure type: unspecified Qualified Code(s): N17.9 - Acute kidney failure, unspecified; N18.3 - Chronic kidney disease, stage 3 (moderate)
[2018-06-25] MEDS: DIGOXIN 0.125 MG TAB PO SCH (16:10)
[2018-06-25] MEDS: ACETAMINOPHEN 1000 MG/100 ML IV IV PRN (17:29)
[2018-06-25] MEDS: PANTOprazole 40 MG TAB PO SCH (21:30)
[2018-06-25] MEDS: ZOLPIDEM TARTRATE 5 MG TAB PO PRN (22:22)
[2018-06-26] MEDS: ALUMINUM/MAGNESIUM SUSP 72 ML, LIDOCAINE HCL VISCOUS 2% 24 ML, BARCODE IDENTIFIER 1 EA PO PRN ×3 (00:11→21:19)
[2018-06-26] MEDS: TRAMADOL HCL 50 MG TABLET PO PRN ×2 (04:05→12:52)
[2018-06-26] MEDS: HEPARIN SOD 5,000 UNIT/0.5 ML VIAL SQ SCH ×3 (05:50→21:28)
[2018-06-26] MEDS: METFORMIN HCL 500 MG TAB PO SCH ×3 (08:29→16:36)
[2018-06-26] MEDS: SUCRALFATE 1 GM/10 ML UDC PO SCH ×4 (08:29→21:18)
[2018-06-26] MEDS: FLUCONAZOLE 100 MG TAB PO SCH (08:30)
[2018-06-26] MEDS: DOCUSATE SODIUM 100 MG CAP PO SCH ×2 (08:30→21:19)
[2018-06-26] MEDS: LOSARTAN POTASSIUM 50 MG TAB PO SCH (08:30)
[2018-06-26] MEDS: FERROUS SULFATE 325 MG TAB PO SCH ×2 (08:31→21:18)
[2018-06-26] MEDS: ASPIRIN 81 MG ECTAB PO SCH (08:31)
[2018-06-26] MEDS: LACTOBACILLUS ACIDOPHILUS (FLORANEX) TAB PO SCH (08:31)
[2018-06-26] MEDS: POTASSIUM CHLORIDE 10 MEQ TABCR PO SCH (08:32)
[2018-06-26] MEDS: cephALEXin 500 MG CAP PO SCH ×2 (08:32→21:18)
[2018-06-26] MEDS: FUROSEMIDE 20 MG TAB PO SCH (08:32)
[2018-06-26] MEDS: FINASTERIDE 5 MG TAB PO SCH (08:33)
[2018-06-26] MEDS: METOPROLOL SUCC 50MG EXT REL TAB PO SCH (08:33)
[2018-06-26] MEDS: PANTOprazole 40 MG TAB PO SCH ×2 (08:33→21:19)
[2018-06-26] MEDS: ACETAMINOPHEN 1000 MG/100 ML IV IV PRN ×2 (08:36→18:27)
[2018-06-26] MEDS: INSULIN ASPART 100 UNITS/ML 3 ML PEN SC SCH ×4 (08:42→21:27)
[2018-06-26] MEDS: DIGOXIN 0.125 MG TAB PO SCH (16:35)
--- NOTE | 2018-06-26 17:27 | Hospitalist Progress Note ---
Date of Service June 26, 2018 Assessment & Plan (1) Sepsis: Severe Sepsis Present on admission with tachycardia, elevated WBC 23K, Hypotension with elevated lactic acid Urine cx grew proteus mirabilis Received adequate IVF and did not require any pressor ID on board Received IV rocephin 2 gm daily for 7days. Rocephin changed to Keflex PO 500 mg PO BID to complete and addiotional 7 days. (2) Epigastric abdominal pain: Possible related to gastritis/GERD Pain only occurs with eating and drinking on PPI and carafete GI on board and plan s/p EGD : showed diffuse, white plaques were found in the entire esophagus consistent with candidiasis Continue Diflucan (fluconazole) 100 mg PO daily for 3 weeks. Continue PPI BID Clinically improved (3) Lethargy: Possible related to narcotic and sedatives med resolved cont to limit narcotics as much as possible (4) Acute urinary retention: resovled patiño draining clear urine On chronic indwelling Foely for last 2-3 yrs follows with Urology in [place] and Dr Priscilla Zhang locally urinary retention due to blocked Patiño (due to significant amount of debris/ pus ) CT abdomen /pelvis 06/16/2018 showed wall thickening of the urinary bladder with extensive perivesicular stranding suggests acute cystitis. Patiño was changed by urology dr. Zhang (5) Atrial fibrillation with RVR: Present on admission with Afib with HR 140 due to sepsis . dehydration Hx Chronic Afib In Afib with rate control Continue Toprol XL 200 mg daily /Digoxin 125 mcg daily Not a anticoagulation candidate for history of GI bleed/gastric ulcer, groin hemangioma Cardiology on board ECHO showed Transthoracic echo: 06/16/2018 Study is technically difficult but adequate for referral indication. A. fib with rapid ventricular response was present during the echocardiogram. There is mild concentric left ventricular hypertrophy. Left ventricular cavity is small and underfilled No regional wall motion abnormalities noted Qualitative left ventricular ejection fraction more than 70% hyperdynamic Right ventricle is hyperdynamic Aortic valve is mildly calcified Aortic stenosis is absent The aortic root was not visualized well enough to allow measurements, the proximal ascending aorta was mildly dilated with diameter of 4 cm Stable (6) Rhabdomyolysis: due to fall /prolong immobilization//was on floor for apprx 5 hrs presented with elevated CPK > 4000k Received adequate IVF CK level back to normal Resolved (7) Pressure ulcer, stage II, skin breakdown: present on admission follows with Wound care clinic wound care on board (8) Scrotal varicose veins: follows with wound care -consulted ordered for off loading , change of position OOB to chair when able (9) Ulcer of scrotum: present on admission -chronic due to morbid obesity , pt stays in his lift chair whole day pt was asked to change position , off loading by wound care clinic for healing of pressure sore no drainage wound noted Continue wound care (10) Diabetic toe ulcer: Left 2nd toe -tip appears to be Necrotic follows with Podiatry Dr Padilla Arauz CT of lower ext shows no evidence of osteomyelitis vascular surgery on board, no surgical intervention needed Continue conservative management per podiary USG of lower ext shows mild arterial occlusive disease b/l; pt having enough blood supply to heal lower ext wound /infection no furhtur procedure (11) Hypertension: On Toprol XL 200 mg daily, losartan 50mg and lasix 20mg Continue monitor (12) Diabetes: Type 2 DM with CKD stage 3 /diabetic toe ulcer presented with hyperglycemia due to infection /sepsis pharmacy consulted for glycemic management HbA1c 7.4 on 06/17/18 (13) Chronic diastolic CHF (congestive heart failure): presented with hypovolumia /dehydration ECHO shows : flattend IVC , Hyperdynamic LV , EF > 70% given IV fluid resusciation on admission vol status stable Continue lasix 20 mg Monitor I/O (14) Obesity, morbid, BMI 40.0-49.9: BMI 40. 7 causing multiple co morbidities limited mobility , leading pressure sore in sacral and scrotal area urinary retention /bladder outlet obstruction requiring chronic indwelling patiño catheter /recurrent UTI Dietitian consulted -help with guideline to pt and family -low calorie intake / healthy diet (15) Unsteady gait: Continue PT/OT recommends rehab referral made to [facility] (16) Acute renal failure superimposed on stage 3 chronic kidney disease: Due to severe sepsis and dehydration Creatinine on admission 1.7 Creatinine back to baseline Avoid NSAID's /contrast studies , nephrotoxins (17) Complicated UTI (urinary tract infection): Hx of recurrent UTI Urine cx grew proteus mirabilis Continue IV rocephin for now. will D/C on keflex Stable CODE STATUS : full code DVT PROPHYLAXIS : On Sub q heparin DISPOSITION ; Waiting for placement to rehab in [facility] (Possible bed available on Monday06/28/18 ) Subjective Denies of any pain or discomfort No fever or chills Physical Exam 2 Vital Signs (Past 24 Hours): Last Vital Signs Temp 36.3 C L 06/26/18 15:45 Pulse 70 06/26/18 15:45 Resp 20 06/26/18 15:45 BP 125/70 06/26/18 15:45 Pulse Ox 93 06/26/18 15:45 Constitutional: + ill appearing and + morbidly obese ENMT: external ear and nose normal, oropharynx normal Neck: trachea midline, no thyromegaly Respiratory: no respiratory distress, no labored breathing, does not use accessory muscles and no cough Auscultation: + diminished lung sounds ( Difficult auscultation secondary to body habitus) Cardiovascular: Rate/Rhythm: + abnormal rhythm (Chronic A. fib) Vessels: + dorsalis pedis pulses abnormal Extremities: + edema (+2 bilateral pitting edema); + abnormal capillary refill (Poor capillary refill) Gastrointestinal (Abdomen): Inspection/Auscultation: + abdomen distended Percussion/Palpation: abdomen soft; abdomen nontender Musculoskeletal: Head/Neck/Chest: normocephalic and head atraumatic Spine: + buttock ecchymosis (Stage II buttock wound) and + sacral erythema (Stage II sacral pressure ulcer, scrotal edema with cyanosis) Extremities: + lower extremity abnormal to inspection (Bilateral 2-3+ edema with chronic venous stasis changes, left second toe tip area necrotic, no active drainage noted) Bilateral and + foot abnormality (Left second toe, necrotic, dry open wound present) Skin: + turgor decreased Neurologic: PERRL, EOMI, accommodation nl, no face palsy, no dysarthria + not awake (drowsy , lethergic , difficult to arouse ) Psychiatric: Orientation: alert, oriented to person, oriented to place and cooperative _ (1) Pressure ulcer, stage II, skin breakdown Laterality: unspecified laterality Pressure injury location: buttock Qualified Code(s): L89.302 - Pressure ulcer of unspecified buttock, stage 2 (2) Diabetes Chronic kidney disease stage: Diabetes mellitus complication detail: with foot ulcer Diabetes mellitus complication status: with skin complications 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: 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 Diabetes mellitus macular edema: Diabetes mellitus type: type 2 Diabetic retinopathy severity: Laterality: Proliferative retinopathy type: Qualified Code(s): E11.621 - Type 2 diabetes mellitus with foot ulcer; L97.509 - Non-pressure chronic ulcer of other part of unspecified foot with unspecified severity (3) Rhabdomyolysis Encounter type: initial encounter Rhabdomyolysis type: traumatic Qualified Code(s): T79.6XXA - Traumatic ischemia of muscle, initial encounter (4) Acute renal failure superimposed on stage 3 chronic kidney disease Acute renal failure type: unspecified Qualified Code(s): N17.9 - Acute kidney failure, unspecified; N18.3 - Chronic kidney disease, stage 3 (moderate) (5) Sepsis Sepsis type: sepsis due to unspecified organism Qualified Code(s): A41.9 - Sepsis, unspecified organism (6) Diabetic toe ulcer Diabetes mellitus type: type 2 Laterality: left Non-pressure ulcer stage: unspecified non-pressure ulcer stage Qualified Code(s): E11.621 - Type 2 diabetes mellitus with foot ulcer; L97.529 - Non-pressure chronic ulcer of other part of left foot with unspecified severity (7) Hypertension Hypertension type: unspecified Qualified Code(s): I10 - Essential (primary) hypertension
[2018-06-26] MEDS: ZOLPIDEM TARTRATE 5 MG TAB PO PRN (22:09)
[2018-06-27] MEDS: TRAMADOL HCL 50 MG TABLET PO PRN ×2 (00:16→16:43)
[2018-06-27] MEDS: HEPARIN SOD 5,000 UNIT/0.5 ML VIAL SQ SCH ×3 (05:55→21:05)
[2018-06-27] MEDS: ALUMINUM/MAGNESIUM SUSP 72 ML, LIDOCAINE HCL VISCOUS 2% 24 ML, BARCODE IDENTIFIER 1 EA PO PRN (08:23)
[2018-06-27] MEDS: SUCRALFATE 1 GM/10 ML UDC PO SCH ×3 (08:25→21:03)
[2018-06-27] MEDS: PANTOprazole 40 MG TAB PO SCH ×2 (08:26→21:05)
[2018-06-27] MEDS: METOPROLOL SUCC 50MG EXT REL TAB PO SCH (08:26)
[2018-06-27] MEDS: DOCUSATE SODIUM 100 MG CAP PO SCH ×2 (08:27→21:09)
[2018-06-27] MEDS: LOSARTAN POTASSIUM 50 MG TAB PO SCH (08:27)
[2018-06-27] MEDS: cephALEXin 500 MG CAP PO SCH ×2 (08:27→21:04)
[2018-06-27] MEDS: FINASTERIDE 5 MG TAB PO SCH (08:28)
[2018-06-27] MEDS: METFORMIN HCL 500 MG TAB PO SCH ×3 (08:28→16:41)
[2018-06-27] MEDS: ASPIRIN 81 MG ECTAB PO SCH (08:28)
[2018-06-27] MEDS: FERROUS SULFATE 325 MG TAB PO SCH ×2 (08:28→21:03)
[2018-06-27] MEDS: FLUCONAZOLE 100 MG TAB PO SCH (08:28)
[2018-06-27] MEDS: POTASSIUM CHLORIDE 10 MEQ TABCR PO SCH (08:29)
[2018-06-27] MEDS: FUROSEMIDE 20 MG TAB PO SCH (08:29)
[2018-06-27] MEDS: LACTOBACILLUS ACIDOPHILUS (FLORANEX) TAB PO SCH (08:32)
[2018-06-27] MEDS: INSULIN ASPART 100 UNITS/ML 3 ML PEN SC SCH ×4 (08:33→21:06)
[2018-06-27] MEDS ORDERED: MICONAZOLE NITRATE POWDER 43 GM ONE (10:25)
[2018-06-27] MEDS ORDERED: FLUCONAZOLE 100 MG TAB PO ONE (13:00)
--- NOTE | 2018-06-27 13:54 | Hospitalist Progress Note ---
Date of Service June 27, 2018 Assessment & Plan (1) Esophageal candidiasis: Complains of severe epigastric pain, dyspepsia, worse with meal Appreciate input from GI, status post EGD, showed diffuse esophageal candidiasis Patient started on oral Diflucan 200 mg p.o. daily will need 2-3 weeks of treatment Patient continued to complain of epigastric been found postprandial epigastric discomfort Continued with PPI, on Carafate 4 times daily Requested GI input, GI team updated Present on Admission?: Yes (2) Sepsis: Severe Sepsis resolved Present on admission with tachycardia, elevated WBC 23K, Hypotension with elevated lactic acid Urine cx grew proteus mirabilis Received adequate IVF and did not require any pressor ID on board Received IV rocephin 2 gm daily for 7days. Rocephin changed to Keflex PO 500 mg PO BID to complete and additional 7 days. Present on Admission?: Yes (3) Epigastric abdominal pain: Possible related to gastritis/GERD/esophageal candidiasis Pain only occurs with eating and drinking on PPI and carafete GI on board and s/p EGD : showed diffuse, white plaques were found in the entire esophagus consistent with candidiasis Continue Diflucan (fluconazole) 200 mg PO daily for 3 weeks. Continue PPI BID cont to have symptom post prandial GI updated (4) Lethargy: Possible related to narcotic and sedatives med resolved cont to limit narcotics as much as possible (5) Acute urinary retention: resovled patiño draining clear urine On chronic indwelling Foely for last 2-3 yrs follows with Urology in [place] and Dr Priscilla Zhang locally urinary retention due to blocked Patiño (due to significant amount of debris/ pus ) CT abdomen /pelvis 06/16/2018 showed wall thickening of the urinary bladder with extensive perivesicular stranding suggests acute cystitis. Patiño was changed by urology dr. Zhang (6) Atrial fibrillation with RVR: Present on admission with Afib with HR 140 due to sepsis . dehydration Hx Chronic Afib In Afib with rate control Continue Toprol XL 200 mg daily /Digoxin 125 mcg daily Not a anticoagulation candidate for history of GI bleed/gastric ulcer, groin hemangioma Cardiology on board ECHO showed Transthoracic echo: 06/16/2018 Study is technically difficult but adequate for referral indication. A. fib with rapid ventricular response was present during the echocardiogram. There is mild concentric left ventricular hypertrophy. Left ventricular cavity is small and underfilled No regional wall motion abnormalities noted Qualitative left ventricular ejection fraction more than 70% hyperdynamic Right ventricle is hyperdynamic Aortic valve is mildly calcified Aortic stenosis is absent The aortic root was not visualized well enough to allow measurements, the proximal ascending aorta was mildly dilated with diameter of 4 cm Stable (7) Rhabdomyolysis: due to fall /prolong immobilization//was on floor for apprx 5 hrs presented with elevated CPK > 4000k Received adequate IVF CK level back to normal Resolved (8) Pressure ulcer, stage II, skin breakdown: present on admission follows with Wound care clinic wound care on board (9) Scrotal varicose veins: follows with wound care -consulted ordered for off loading , change of position OOB to chair when able (10) Ulcer of scrotum: present on admission -chronic due to morbid obesity , pt stays in his lift chair whole day pt was asked to change position , off loading by wound care clinic for healing of pressure sore no drainage wound noted Continue wound care (11) Diabetic toe ulcer: Left 2nd toe -tip appears to be Necrotic follows with Podiatry Dr Padilla Arauz CT of lower ext shows no evidence of osteomyelitis vascular surgery on board, no surgical intervention needed Continue conservative management per podiary USG of lower ext shows mild arterial occlusive disease b/l; pt having enough blood supply to heal lower ext wound /infection no furthur procedure (12) Hypertension: On Toprol XL 200 mg daily, losartan 50mg and lasix 20mg Continue monitor (13) Diabetes: Type 2 DM with CKD stage 3 /diabetic toe ulcer presented with hyperglycemia due to infection /sepsis pharmacy consulted for glycemic management HbA1c 7.4 on 06/17/18 (14) Chronic diastolic CHF (congestive heart failure): presented with hypovolumia /dehydration ECHO shows : flattend IVC , Hyperdynamic LV , EF > 70% given IV fluid resusciation on admission vol status stable Continue lasix 20 mg Monitor I/O (15) Obesity, morbid, BMI 40.0-49.9: BMI 40. 7 causing multiple co morbidities limited mobility , leading pressure sore in sacral and scrotal area urinary retention /bladder outlet obstruction requiring chronic indwelling patiño catheter /recurrent UTI Dietitian consulted -help with guideline to pt and family -low calorie intake / healthy diet (16) Unsteady gait: Continue PT/OT recommends rehab referral made to [facility] (17) Acute renal failure superimposed on stage 3 chronic kidney disease: Due to severe sepsis and dehydration Creatinine on admission 1.7 Creatinine back to baseline Avoid NSAID's /contrast studies , nephrotoxins (18) Complicated UTI (urinary tract infection): Hx of recurrent UTI Urine cx grew proteus mirabilis Continue IV rocephin for now. will D/C on keflex Stable CODE STATUS : full code DVT PROPHYLAXIS : On Sub q heparin DISPOSITION ; Waiting for placement to rehab in [facility] (Possible bed available on Monday06/28/18 ) (19) Chronic indwelling Patiño catheter: (20) Chronic a-fib: rate controlled cont Beta john /Dig not a candidate for anticoagulation DISPOSITION : will need rehab referral made to [facility] insurance Auth updated over phone Physical Exam 2 Vital Signs (Past 24 Hours): Last Vital Signs Temp 36.3 C L 06/27/18 07:05 Pulse 71 06/27/18 07:05 Resp 20 06/27/18 07:05 BP 138/73 06/27/18 07:05 Pulse Ox 94 06/27/18 07:05 Constitutional: + ill appearing and + morbidly obese ENMT: external ear and nose normal, oropharynx normal Neck: trachea midline, no thyromegaly Respiratory: no respiratory distress, no labored breathing, does not use accessory muscles and no cough Auscultation: + diminished lung sounds ( Difficult auscultation secondary to body habitus) Cardiovascular: Rate/Rhythm: + abnormal rhythm (Chronic A. fib) Vessels: + dorsalis pedis pulses abnormal Extremities: + edema (+2 bilateral pitting edema); + abnormal capillary refill (Poor capillary refill) Gastrointestinal (Abdomen): Inspection/Auscultation: + abdomen distended Percussion/Palpation: abdomen soft; abdomen nontender Musculoskeletal: Head/Neck/Chest: normocephalic and head atraumatic Spine: + buttock ecchymosis (Stage II buttock wound) and + sacral erythema (Stage II sacral pressure ulcer, scrotal edema with cyanosis) Extremities: + lower extremity abnormal to inspection (Bilateral 2-3+ edema with chronic venous stasis changes, left second toe tip area necrotic, no active drainage noted) Bilateral and + foot abnormality (Left second toe, necrotic, dry open wound present) Skin: + turgor decreased Neurologic: PERRL, EOMI, accommodation nl, no face palsy, no dysarthria + not awake (drowsy , lethergic , difficult to arouse ) Psychiatric: Orientation: alert, oriented to person, oriented to place and cooperative _ (1) Sepsis Sepsis type: sepsis due to unspecified organism Qualified Code(s): A41.9 - Sepsis, unspecified organism (2) Rhabdomyolysis Encounter type: initial encounter Rhabdomyolysis type: traumatic Qualified Code(s): T79.6XXA - Traumatic ischemia of muscle, initial encounter (3) Pressure ulcer, stage II, skin breakdown Pressure injury location: buttock Laterality: unspecified laterality Qualified Code(s): L89.302 - Pressure ulcer of unspecified buttock, stage 2 (4) Diabetic toe ulcer Diabetes mellitus type: type 2 Laterality: left Non-pressure ulcer stage: unspecified non-pressure ulcer stage Qualified Code(s): E11.621 - Type 2 diabetes mellitus with foot ulcer; L97.529 - Non-pressure chronic ulcer of other part of left foot with unspecified severity (5) Hypertension Hypertension type: unspecified Qualified Code(s): I10 - Essential (primary) hypertension (6) Diabetes Diabetes mellitus type: type 2 Diabetes mellitus oysterman insulin use: unspecified oysterman insulin use status Diabetes mellitus complication status : with skin complications Diabetes mellitus complication detail: with foot ulcer Diabetic retinopathy severity: Proliferative retinopathy type: Diabetes mellitus macular edema: Laterality: Chronic kidney disease stage: Qualified Code(s): E11.621 - Type 2 diabetes mellitus with foot ulcer; L97.509 - Non-pressure chronic ulcer of other part of unspecified foot with unspecified severity (7) Acute renal failure superimposed on stage 3 chronic kidney disease Acute renal failure type: unspecified Qualified Code(s): N17.9 - Acute kidney failure, unspecified; N18.3 - Chronic kidney disease, stage 3 (moderate)
[2018-06-27] MEDS: ALUMINUM/MAGNESIUM SUSP 72 ML, LIDOCAINE HCL VISCOUS 2% 24 ML, BARCODE IDENTIFIER 1 EA PO SCH ×2 (15:07→21:06)
[2018-06-27] MEDS: DIGOXIN 0.125 MG TAB PO SCH (16:44)
[2018-06-27] MEDS: ACETAMINOPHEN 1000 MG/100 ML IV IV PRN ×2 (21:06→21:49)
[2018-06-28] MEDS: ZOLPIDEM TARTRATE 5 MG TAB PO PRN
[2018-06-28] MEDS: TRAMADOL HCL 50 MG TABLET PO PRN ×2 (00:15→12:04)
[2018-06-28] MEDS: HEPARIN SOD 5,000 UNIT/0.5 ML VIAL SQ SCH (06:37)
[2018-06-28] MEDS: ALUMINUM/MAGNESIUM SUSP 72 ML, LIDOCAINE HCL VISCOUS 2% 24 ML, BARCODE IDENTIFIER 1 EA PO SCH ×2 (08:36→12:05)
[2018-06-28] MEDS: SUCRALFATE 1 GM/10 ML UDC PO SCH ×2 (08:36→12:05)
[2018-06-28] MEDS: FERROUS SULFATE 325 MG TAB PO SCH (08:37)
[2018-06-28] MEDS: INSULIN ASPART 100 UNITS/ML 3 ML PEN SC SCH ×2 (08:37→12:25)
[2018-06-28] MEDS: cephALEXin 500 MG CAP PO SCH (08:37)
[2018-06-28] MEDS: ASPIRIN 81 MG ECTAB PO SCH (08:37)
[2018-06-28] MEDS: POTASSIUM CHLORIDE 10 MEQ TABCR PO SCH (08:38)
[2018-06-28] MEDS: METOPROLOL SUCC 50MG EXT REL TAB PO SCH (08:38)
[2018-06-28] MEDS: METFORMIN HCL 500 MG TAB PO SCH ×2 (08:38→12:05)
[2018-06-28] MEDS: FUROSEMIDE 20 MG TAB PO SCH (08:38)
[2018-06-28] MEDS: FINASTERIDE 5 MG TAB PO SCH (08:38)
[2018-06-28] MEDS: LACTOBACILLUS ACIDOPHILUS (FLORANEX) TAB PO SCH (08:39)
[2018-06-28] MEDS: LOSARTAN POTASSIUM 50 MG TAB PO SCH (08:39)
[2018-06-28] MEDS: PANTOprazole 40 MG TAB PO SCH (08:39)
[2018-06-28] MEDS: DOCUSATE SODIUM 100 MG CAP PO SCH (08:40)
[2018-06-28] MEDS ORDERED: FLUCONAZOLE 100 MG TAB PO SCH (09:00)
--- NOTE | 2018-06-28 15:20 | Hospitalist Progress Note ---
Date of Service June 28, 2018 Assessment & Plan (1) Esophageal candidiasis: Symptom has improved after altering Carafate before and after meals, before meals and at bedtime, adding a scheduled dose of GI cocktail Due to severe esophageal candidiasis it will take some time for that discomfort , to completely resolved Complains of severe epigastric pain, dyspepsia, worse with meal Appreciate input from GI, status post EGD, showed diffuse esophageal candidiasis Patient started on oral Diflucan 200 mg p.o. daily will need 2-3 weeks of treatment Patient continued to complain of epigastric been found postprandial epigastric discomfort Continued with PPI, on Carafate 4 times daily Appreciate input from GI (2) Sepsis: Severe Sepsis resolved Present on admission with tachycardia, elevated WBC 23K, Hypotension with elevated lactic acid Urine cx grew proteus mirabilis Received adequate IVF and did not require any pressor ID on board Received IV rocephin 2 gm daily for 7days. Rocephin changed to Keflex PO 500 mg PO BID (3) Epigastric abdominal pain: Symptoms improved after addition of pre-meal Carafate GI cocktail Possible related to gastritis/GERD/esophageal candidiasis Pain only occurs with eating and drinking on PPI and carafete GI on board and s/p EGD : showed diffuse, white plaques were found in the entire esophagus consistent with candidiasis Continue Diflucan (fluconazole) 200 mg PO daily for 3 weeks. Continue PPI BID GI following (4) Lethargy: Possible related to narcotic and sedatives med resolved cont to limit narcotics as much as possible (5) Acute urinary retention: resovled patiño draining clear urine On chronic indwelling Foely for last 2-3 yrs follows with Urology in [place] and Dr Priscilla Zhang locally urinary retention due to blocked Patiño (due to significant amount of debris/ pus ) CT abdomen /pelvis 06/16/2018 showed wall thickening of the urinary bladder with extensive perivesicular stranding suggests acute cystitis. Patiño was changed by urology dr. Zhang (6) Atrial fibrillation with RVR: Present on admission with Afib with HR 140 due to sepsis . dehydration Hx Chronic Afib In Afib with rate control Continue Toprol XL 200 mg daily /Digoxin 125 mcg daily Not a anticoagulation candidate for history of GI bleed/gastric ulcer, groin hemangioma Cardiology on board ECHO showed Transthoracic echo: 06/16/2018 Study is technically difficult but adequate for referral indication. A. fib with rapid ventricular response was present during the echocardiogram. There is mild concentric left ventricular hypertrophy. Left ventricular cavity is small and underfilled No regional wall motion abnormalities noted Qualitative left ventricular ejection fraction more than 70% hyperdynamic Right ventricle is hyperdynamic Aortic valve is mildly calcified Aortic stenosis is absent The aortic root was not visualized well enough to allow measurements, the proximal ascending aorta was mildly dilated with diameter of 4 cm Stable (7) Rhabdomyolysis: due to fall /prolong immobilization//was on floor for apprx 5 hrs presented with elevated CPK > 4000k Received adequate IVF CK level back to normal Resolved (8) Pressure ulcer, stage II, skin breakdown: present on admission follows with Wound care clinic wound care on board (9) Scrotal varicose veins: follows with wound care -consulted ordered for off loading , change of position OOB to chair when able (10) Ulcer of scrotum: present on admission -chronic due to morbid obesity , pt stays in his lift chair whole day pt was asked to change position , off loading by wound care clinic for healing of pressure sore no drainage wound noted Continue wound care (11) Diabetic toe ulcer: Left 2nd toe -tip appears to be Necrotic follows with Podiatry Dr Padilla Arauz CT of lower ext shows no evidence of osteomyelitis vascular surgery on board, no surgical intervention needed Continue conservative management per podiary USG of lower ext shows mild arterial occlusive disease b/l; pt having enough blood supply to heal lower ext wound /infection no furthur procedure (12) Hypertension: On Toprol XL 200 mg daily, losartan 50mg and lasix 20mg Continue monitor (13) Diabetes: Type 2 DM with CKD stage 3 /diabetic toe ulcer presented with hyperglycemia due to infection /sepsis pharmacy consulted for glycemic management HbA1c 7.4 on 06/17/18 (14) Chronic diastolic CHF (congestive heart failure): presented with hypovolumia /dehydration ECHO shows : flattend IVC , Hyperdynamic LV , EF > 70% given IV fluid resusciation on admission vol status stable Continue lasix 20 mg Monitor I/O (15) Obesity, morbid, BMI 40.0-49.9: BMI 40. 7 causing multiple co morbidities limited mobility , leading pressure sore in sacral and scrotal area urinary retention /bladder outlet obstruction requiring chronic indwelling patiño catheter /recurrent UTI Dietitian consulted -help with guideline to pt and family -low calorie intake / healthy diet (16) Unsteady gait: Continue PT/OT recommends rehab referral made to [facility] (17) Acute renal failure superimposed on stage 3 chronic kidney disease: Due to severe sepsis and dehydration Creatinine on admission 1.7 Creatinine back to baseline Avoid NSAID's /contrast studies , nephrotoxins (18) Complicated UTI (urinary tract infection): Hx of recurrent UTI Urine cx grew proteus mirabilis Continue IV rocephin for now. will D/C on keflex Stable CODE STATUS : full code DVT PROPHYLAXIS : On Sub q heparin DISPOSITION ; Transfer to [facility] today (19) Chronic indwelling Patiño catheter: (20) Chronic a-fib: rate controlled cont Beta john /Dig not a candidate for anticoagulation DISPOSITION : will need rehab referral made to [facility] Stable to transfer to [facility] for rehab Subjective No complaint of shortness of breath, no fever chills Postprandial pain and discomfort much improved Accepted at [facility] for rehab Physical Exam 2 Vital Signs (Past 24 Hours): Last Vital Signs Temp 36.3 C L 06/28/18 13:22 Pulse 92 H 06/28/18 13:22 Resp 18 06/28/18 13:22 BP 96/59 L 06/28/18 13:22 Pulse Ox 94 06/28/18 13:22 Constitutional: + ill appearing and + morbidly obese ENMT: external ear and nose normal, oropharynx normal Neck: trachea midline, no thyromegaly Respiratory: no respiratory distress, no labored breathing, does not use accessory muscles and no cough Auscultation: + diminished lung sounds ( Difficult auscultation secondary to body habitus) Cardiovascular: Rate/Rhythm: + abnormal rhythm (Chronic A. fib) Vessels: + dorsalis pedis pulses abnormal Extremities: + edema (+2 bilateral pitting edema); + abnormal capillary refill (Poor capillary refill) Gastrointestinal (Abdomen): Inspection/Auscultation: + abdomen distended Percussion/Palpation: abdomen soft; abdomen nontender Musculoskeletal: Head/Neck/Chest: normocephalic and head atraumatic Spine: + buttock ecchymosis (Stage II buttock wound) and + sacral erythema (Stage II sacral pressure ulcer, scrotal edema with cyanosis) Extremities: + lower extremity abnormal to inspection (Bilateral 2-3+ edema with chronic venous stasis changes, left second toe tip area necrotic, no active drainage noted) Bilateral and + foot abnormality (Left second toe, necrotic, dry open wound present) Skin: + turgor decreased Neurologic: PERRL, EOMI, accommodation nl, no face palsy, no dysarthria + not awake (drowsy , lethergic , difficult to arouse ) Psychiatric: Orientation: alert, oriented to person, oriented to place and cooperative _ (1) Pressure ulcer, stage II, skin breakdown Laterality: unspecified laterality Pressure injury location: buttock Qualified Code(s): L89.302 - Pressure ulcer of unspecified buttock, stage 2 (2) Diabetes Chronic kidney disease stage: Diabetes mellitus complication detail: with foot ulcer Diabetes mellitus complication status: with skin complications Diabetes mellitus termite exterminator insulin use: unspecified senior care insulin use status Diabetes mellitus macular edema: Diabetes mellitus type: type 2 Diabetic retinopathy severity: Laterality: Proliferative retinopathy type: Qualified Code(s): E11.621 - Type 2 diabetes mellitus with foot ulcer; L97.509 - Non-pressure chronic ulcer of other part of unspecified foot with unspecified severity (3) Rhabdomyolysis Encounter type: initial encounter Rhabdomyolysis type: traumatic Qualified Code(s): T79.6XXA - Traumatic ischemia of muscle, initial encounter (4) Acute renal failure superimposed on stage 3 chronic kidney disease Acute renal failure type: unspecified Qualified Code(s): N17.9 - Acute kidney failure, unspecified; N18.3 - Chronic kidney disease, stage 3 (moderate) (5) Sepsis Sepsis type: sepsis due to unspecified organism Qualified Code(s): A41.9 - Sepsis, unspecified organism (6) Diabetic toe ulcer Diabetes mellitus type: type 2 Laterality: left Non-pressure ulcer stage: unspecified non-pressure ulcer stage Qualified Code(s): E11.621 - Type 2 diabetes mellitus with foot ulcer; L97.529 - Non-pressure chronic ulcer of other part of left foot with unspecified severity (7) Hypertension Hypertension type: unspecified Qualified Code(s): I10 - Essential (primary) hypertension
--- NOTE | 2018-06-28 16:12 | Discharge Summary ---
Date of Service June 28, 2018 Admission HPI Per Admitting Provider abd pain Principal Diagnosis COMPLICATED UTI DUE TO CHRONIC VINCENT /SEVERE SEPSIS /AFIB RVR Discharge Exam Constitutional + ill appearing and + morbidly obese ENMT external ear and nose normal, oropharynx normal Neck trachea midline, no thyromegaly Respiratory no respiratory distress, no labored breathing, does not use accessory muscles and no cough Auscultation: + diminished lung sounds (Difficult auscultation secondary to body habitus) Cardiovascular Rate/Rhythm: + abnormal rhythm (Chronic A. fib) Vessels: + dorsalis pedis pulses abnormal Extremities: + edema (+2 bilateral pitting edema); + abnormal capillary refill ( Poor capillary refill) Gastrointestinal (Abdomen) Inspection/Auscultation: + abdomen distended Percussion/Palpation: abdomen soft; abdomen nontender Musculoskeletal Head/Neck/Chest: normocephalic and head atraumatic Spine: + buttock ecchymosis (Stage II buttock wound) and + sacral erythema ( Stage II sacral pressure ulcer, scrotal edema with cyanosis) Extremities: + lower extremity abnormal to inspection (Bilateral 2-3+ edema with chronic venous stasis changes, left second toe tip area necrotic, no active drainage noted) Bilateral and + foot abnormality (Left second toe, necrotic, dry open wound present) Skin + turgor decreased Neurologic PERRL, EOMI, accommodation nl, no face palsy, no dysarthria + not awake (drowsy , lethergic , difficult to arouse ) Psychiatric Orientation: alert, oriented to person, oriented to place and cooperative Discharge Data Allergies Allergy/AdvReac Type Severity Reaction Status Date / Time metronidazole Allergy Severe see below Verified 06/16/18 03:51 amoxicillin Allergy Intermediate rash Verified 06/16/18 03:51 Consultations 06/16/18 07:25 ED Decision to Admit Stat 06/16/18 08:48 Consult Molding Plasterer Routine 06/16/18 10:14 Consult Cardiology Routine Consult Case Management - Discharge Planning Routine Consult Infectious Diseases Routine Consult Molding Plasterer Routine Consult Urology Routine 06/16/18 10:56 Consult Podiatry Routine 06/16/18 20:15 Consult Vascular Surgery Routine 06/20/18 09:27 Consult Gastroenterology Routine Procedures Performed Operation Date: 06/22/18 10:30 Actual Procedures p EGD Biopsy Cytology - Viv Suero Ordered Studies 06/16/18 03:23 CT head/brain wo con Urgent 06/16/18 03:52 CT abd pelvis wo con Urgent 06/17/18 12:18 US arterial duplex LE BI Routine 06/17/18 22:31 CT lower leg LT wo con Routine Hospital Course (1) Esophageal candidiasis: Symptom has improved after altering Carafate before and after meals, before meals and at bedtime, adding a scheduled dose of GI cocktail Due to severe esophageal candidiasis it will take some time for that discomfort , to completely resolved Complains of severe epigastric pain, dyspepsia, worse with meal Appreciate input from GI, status post EGD, showed diffuse esophageal candidiasis Patient started on oral Diflucan 200 mg p.o. daily will need 2-3 weeks of treatment Patient continued to complain of epigastric been found postprandial epigastric discomfort Continued with PPI, on Carafate 4 times daily Appreciate input from GI (2) Sepsis: Severe Sepsis resolved Present on admission with tachycardia, elevated WBC 23K, Hypotension with elevated lactic acid Urine cx grew proteus mirabilis Received adequate IVF and did not require any pressor ID on board Received IV rocephin 2 gm daily for 7days. Rocephin changed to Keflex PO 500 mg PO BID (3) Epigastric abdominal pain: Symptoms improved after addition of pre-meal Carafate GI cocktail Possible related to gastritis/GERD/esophageal candidiasis Pain only occurs with eating and drinking on PPI and carafete GI on board and s/p EGD : showed diffuse, white plaques were found in the entire esophagus consistent with candidiasis Continue Diflucan (fluconazole) 200 mg PO daily for 3 weeks. Continue PPI BID GI following (4) Lethargy: Possible related to narcotic and sedatives med resolved cont to limit narcotics as much as possible (5) Acute urinary retention: resovled vincent draining clear urine On chronic indwelling Foely for last 2-3 yrs follows with Urology in [place] and Dr Priscilla Zhang locally urinary retention due to blocked Vincent (due to significant amount of debris/ pus ) CT abdomen /pelvis 06/16/2018 showed wall thickening of the urinary bladder with extensive perivesicular stranding suggests acute cystitis. Vincent was changed by urology dr. Zhang (6) Atrial fibrillation with RVR: Present on admission with Afib with HR 140 due to sepsis . dehydration Hx Chronic Afib In Afib with rate control Continue Toprol XL 200 mg daily /Digoxin 125 mcg daily Not a anticoagulation candidate for history of GI bleed/gastric ulcer, groin hemangioma Cardiology on board ECHO showed Transthoracic echo: 06/16/2018 Study is technically difficult but adequate for referral indication. A. fib with rapid ventricular response was present during the echocardiogram. There is mild concentric left ventricular hypertrophy. Left ventricular cavity is small and underfilled No regional wall motion abnormalities noted Qualitative left ventricular ejection fraction more than 70% hyperdynamic Right ventricle is hyperdynamic Aortic valve is mildly calcified Aortic stenosis is absent The aortic root was not visualized well enough to allow measurements, the proximal ascending aorta was mildly dilated with diameter of 4 cm Stable (7) Rhabdomyolysis: due to fall /prolong immobilization//was on floor for apprx 5 hrs presented with elevated CPK > 4000k Received adequate IVF CK level back to normal Resolved (8) Pressure ulcer, stage II, skin breakdown: present on admission follows with Wound care clinic wound care on board (9) Scrotal varicose veins: follows with wound care -consulted ordered for off loading , change of position OOB to chair when able (10) Ulcer of scrotum: present on admission -chronic due to morbid obesity , pt stays in his lift chair whole day pt was asked to change position , off loading by wound care clinic for healing of pressure sore no drainage wound noted Continue wound care (11) Diabetic toe ulcer: Left 2nd toe -tip appears to be Necrotic follows with Podiatry Dr Jo Arauz CT of lower ext shows no evidence of osteomyelitis vascular surgery on board, no surgical intervention needed Continue conservative management per podiary USG of lower ext shows mild arterial occlusive disease b/l; pt having enough blood supply to heal lower ext wound /infection no furthur procedure (12) Hypertension: On Toprol XL 200 mg daily, losartan 50mg and lasix 20mg Continue monitor (13) Diabetes: Type 2 DM with CKD stage 3 /diabetic toe ulcer presented with hyperglycemia due to infection /sepsis pharmacy consulted for glycemic management HbA1c 7.4 on 06/17/18 (14) Chronic diastolic CHF (congestive heart failure): presented with hypovolumia /dehydration ECHO shows : flattend IVC , Hyperdynamic LV , EF > 70% given IV fluid resusciation on admission vol status stable Continue lasix 20 mg Monitor I/O (15) Obesity, morbid, BMI 40.0-49.9: BMI 40. 7 causing multiple co morbidities limited mobility , leading pressure sore in sacral and scrotal area urinary retention /bladder outlet obstruction requiring chronic indwelling vincent catheter /recurrent UTI Dietitian consulted -help with guideline to pt and family -low calorie intake / healthy diet (16) Unsteady gait: Continue PT/OT recommends rehab referral made to [facility] (17) Acute renal failure superimposed on stage 3 chronic kidney disease: Due to severe sepsis and dehydration Creatinine on admission 1.7 Creatinine back to baseline Avoid NSAID's /contrast studies , nephrotoxins (18) Complicated UTI (urinary tract infection): Hx of recurrent UTI Urine cx grew proteus mirabilis Continue IV rocephin for now. will D/C on keflex Stable CODE STATUS : full code DVT PROPHYLAXIS : On Sub q heparin DISPOSITION ; Transfer to [facility] today (19) Chronic indwelling Vincent catheter: (20) Chronic a-fib: rate controlled cont Beta john /Dig not a candidate for anticoagulation DISPOSITION : will need rehab referral made to [facility] to transfer to [facility] for rehab Total Time Total Time Spent Total Time Spent (In Minutes): 35 mins Discharge Plan Discharge Items Patient Disposition: Transfer Residential Fac Reason For Visit: SEVERE SEPSIS/COMPLICATED UTI/RAPID AFIB Discharge Diagnosis: COMPLICATED UTI DUE TO CHRONIC VINCENT /SEVERE SEPSIS /AFIB RVR Discharge Goals: Decrease discomfort Activity: Resume your previous activity Non-emergency contact: Primary Care Provider Call non-emergency contact if: you have any medication questions Follow-up/Referrals: Parish Lopez DO [Truck Loader] - Jo Arauz [Physician] - Diet: Carb Consistent or DM2 and Heart Healthy Addtl Provider Instructions: CONTINUE TO FOLLOW UP WITH PODAITRY DR JO RUSS FOR LEFT 2 ND TOE INFECTION Prescriptions: New polyethylene glycol 3350 [Miralax] 17 gram Powder In Packet 17 g PO DAILY 30 Days Qty: 30 RF: 0 cephalexin 500 mg Capsule 500 mg PO BID 5 Days Qty: 10 RF: 0 levalbuterol HCl 1.25 mg/3 mL Solution For Nebulization 1.25 mg Inhalation Q4H PRN (Reason: WHEE) 30 Days Qty: 120 RF: 0 alum-mag hydroxide-simeth [Mag-Al Plus Extra Strength] 400-400-40 mg/5 mL Suspension 15 ml PO Q6H PRN (Reason: HEARTBURN) 30 Days Qty: 100 RF: 0 sucralfate 100 mg/mL Suspension 10 ml PO ACHS Qty: 100 RF: 0 magnesium hydroxide [Milk of Magnesia] 400 mg/5 mL Suspension 30 ml PO Q6H PRN (Reason: constipation) 30 Days Qty: 200 RF: 0 simethicone [Mi-Acid Gas Relief] 80 mg Tablet,Chewable 80 mg PO Q6H Qty: 90 RF: 0 fluconazole 100 mg Tablet 200 mg PO QAM 14 Days Qty: 28 RF: 0 Continue aspirin 81 mg Tablet,Delayed Release (Dr/Ec) 81 mg PO DAILY RF: 0 digoxin 125 mcg tablet 125 mcg PO DAILY RF: 0 losartan 50 mg tablet 50 mg PO DAILY RF: 0 metformin 500 mg Tablet 500 mg PO TIDM RF: 0 metoprolol succinate 200 mg tablet extended release 24 hr 200 mg PO DAILY RF: 0 pantoprazole 40 mg Tablet,Delayed Release (Dr/Ec) 40 mg PO BID RF: 0 ferrous sulfate 325 mg (65 mg iron) Tablet 325 mg PO BID RF: 0 furosemide 20 mg Tablet 20 mg PO DAILY RF: 0 Lactobacillus acidophilus [Acidophilus] Capsule 10,000 mmu cells PO DAILY RF: 0 finasteride 5 mg tablet 5 mg PO DAILY RF: 0 potassium chloride 10 mEq tablet,ER particles/crystals 10 meq PO DAILY RF: 0 tramadol 50 mg tablet 50 mg PO Q6 PRN (Reason: Pain) Qty: 10 RF: 0 Discontinued hydrocodone-acetaminophen 5-325 mg tablet 1 tab PO BID PRN (Reason: Pain, Moderate) RF: 0 Stand-Alone Forms: [facility] Discharge Orders: Discharge Order (Routine); Ordered 06/28/18 Ordered By: Kanwal Trotter Skilled Items Patient informed of condition?: Yes DNR: No Discharge Level of Care: Skilled Communicable Disease: No Discharge Prognosis: Stable Admission Data Admit Date/Time: 06/16/18 09:09 Attending Provider: Kanwal Trotter Admit Provider: Kanwal Trotter Primary Care Provider: Donte Szymanski Other Providers: Jessica Ames ; Kanwal Trotter ; Grey Cordoba ; Jo Simons ; Floyd Harrington ; Parish Lopez ; Kash Traylor ; Fidencio Haas ; Carol Singh ; Magdalena Donis ; Sarmad Michele ; Priscilla Stewart ; Priscilla Zhang ; Jo Arauz ; Bob Mar ; Viv Suero ; Nacho Ochoa Service: Medical Other Interventions: Discharge Summary Assessment (RN) Last Done: 06/28/18 13:22 DC Date/Time DO NOT enter until pt leaves facility: 06/28/18 14:15
== END 2018-06-28 14:15 | DRG 698 ==
LOC: ED 03:00 → SUATTDRO 09:09 → 1E 09:09 → 2S 06-17 12:19 → 4E 06-23 20:02

== ENCOUNTER 2018-08-21 03:35 | Inpatient (IN) ==
[2018-08-21] MEDS ORDERED: METOPROLOL TARTRATE 1 MG/ML VIAL IV PRN (03:45)
[2018-08-21] MEDS ORDERED: SODIUM CHLORIDE 0.9% 1000ML 1,000 ML IV SCH (03:45)
[2018-08-21 04:00] LABS: Hematocrit (blood only) 45.3 % (42-52); Hemoglobin 14.7 g/dL (14.0-18.0); Mean Corpuscular Hgb Conc 32.5 g/dL (32-36); Mean Corpuscular Volume 92.3 fL (80-100); Mean Platelet Volume 10.2 fL (7.4-10.4); Platelet Count 360 K/uL (130-400); RDW Coefficient of Variation 15.6 % (11.5-14.5); RDW Standard Deviation 52.1 fL (36.4-46.3); Red Blood Count 4.91 M/uL (4.7-6.1); White Blood Count 26.42 K/uL (4.8-10.8)
[2018-08-21 04:27] LABS: Alanine Aminotransferase 16 U/L (12-78); Albumin Globulin Ratio 0.6 (0.9-2); Albumin Level 2.9 gm/dl (3.4-5.0); Alkaline Phosphatase 56 U/L (45-117); Aspartate Aminotransferase 23 U/L (15-37); BUN Creatinine Ratio 14.9 (10-20); Bilirubin,Total 0.3 mg/dl (0.2-1); Blood Urea Nitrogen 24 mg/dl (7-18); Calcium 7.9 mg/dl (8.5-10.1); Carbon Dioxide 22 mmol/L (21-32); Chloride 105 mmol/L (98-107); Est GFR (African American) 46.4; Globulin 4.6 gm/dl (2.5-4.0); Glucose 208 mg/dl (70-99); Potassium 4.7 mmol/L (3.5-5.1); Sodium 136 mmol/L (136-145); Total Protein 7.5 gm/dl (6.4-8.2)
[2018-08-21 04:28] LABS: Basophils # (auto) 0.04 K/uL (0-0.2); Basophils % (auto) 0.2 %; Eosinophils # (auto) 0.11 K/uL (0-0.5); Eosinophils % (auto) 0.4 %; Immature Granulocytes # (auto) 0.17 K/uL (0.00-0.02); Immature Granulocytes % (auto) 0.6 %; Lymphocytes # (auto) 1.97 K/uL (1.2-3.4); Lymphocytes % (auto) 7.5 %; Monocytes # (auto) 0.88 K/uL (0.11-0.59); Monocytes % (auto) 3.3 %; Neutrophils # (auto) 23.25 K/uL (1.4-6.5)
[2018-08-21] MEDS ORDERED: SODIUM CHLORIDE 0.9% 1000ML 500 ML IV ONE (04:30)
[2018-08-21] MEDS ORDERED: ACETAMINOPHEN 65 ML IV ONE (04:51)
[2018-08-21] MEDS ORDERED: cefTRIAXone SODIUM 2,000 MG in DEXTROSE 5% 50 ML IV STA (04:54)
[2018-08-21] MEDS ORDERED: VANCOMYCIN CONSULT ACTIVE PRN (04:54)
[2018-08-21] MEDS ORDERED: VANCOMYCIN HCL 2,750 MG in SODIUM CHLORIDE 0.9% 500 ML IV ONE (04:54)
[2018-08-21 05:20] LABS: Partial Thromboplastin Ratio 0.9
--- NOTE | 2018-08-21 05:35 | History & Physical Report ---
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 fib, troponin elevation secondary to above Patient not on anticoagulation secondary to recurrent scrotal hemorrhage as per records New onset seizures secondary to infection chronic diastolic heart failure (EF 705, TTE 2018), patient on the dry side chronic respiratory failure/JUAN MANUEL as per records hypertension, stable DM2 diet-controlled, reasonable control as of recent outpatient hemoglobin A1c of 7.4 last June 2018 history traumatic intracranial hemorrhage chronic anemia, hemoglobin better than baseline likely secondary to hemoconcentration PCU CS. IV Vancomycin and Cefepime for now ID consult once urine cultures are back IVF, follow lactic acid and renal function Hold home diuretics, ARB until creatinine at baseline Follow troponin, continue home beta-john for AF rate control Keppra load for new onset seizures Hold home tramadol EEG, Neurology consult RE new-onset seizures MRI of the brain once creatinine normal RE new onset seizures Basal insulin, ISS BG goal 140-180 DVT prophylaxis. SCDs RE history recurrent scrotal hemorrhage Full code as per , Ms. Kellee Deleon. She requests updates from providers through [phone]. History of Present Illness Chief Complaint: Confusion, seizures as per Primary Care Provider: Donte Szymanski History obtained from patient, family, and records. Limited history from patient secondary to disoriented state. 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 Cultures grew Proteus. Patient was seen at [facility] Urology office last week for Baires catheter change due to emptying issues. Issue resolved by Baires catheter change. Urine cultures grew Proteus and enterococcus. Patient's urologist prescribed amoxicillin yesterday, patient has had 1 dose. Last night, patient noted by to be confused, not talking as much. Right eye deviation noted by . Generalized tonic-clonic seizures lasting a few minutes witnessed by and EMS. No tongue biting. After seizure, O2 sats noted to be 80s on 6 L, patient combative. Temperature at home was noted to be 101.8. Patient given Versed. At the ER, patient received IV Vancomycin and Ceftriaxone for sepsis. IV Lopressor also given for rapid A. fib. Patient denies chest pain, shortness of breath, headache symptoms. Dry cough symptoms from weeks ago improving as per Complaining of some back discomfort. Denies home narcotic overuse. 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 Allergies Allergy/AdvReac Type Severity Reaction Status Date / Time metronidazole Allergy Severe see below Verified 08/21/18 05:05 amoxicillin Allergy Intermediate rash Verified 08/21/18 05:05 Home Medications Home Medications Medication Instructions Recorded Confirmed Type Lactobacillus acidophilus 10,000 mmu cells PO DAILY 06/16/18 08/21/18 History [Acidophilus] aspirin 81 mg PO DAILY 06/16/18 08/21/18 History digoxin 125 mcg PO DAILY 06/16/18 08/21/18 History ferrous sulfate 325 mg PO BID 06/16/18 08/21/18 History finasteride 5 mg PO DAILY 06/16/18 08/21/18 History furosemide 20 mg PO DAILY 06/16/18 08/21/18 History losartan 50 mg PO DAILY 06/16/18 08/21/18 History metformin 500 mg PO TIDM 06/16/18 08/21/18 History metoprolol succinate 200 mg PO DAILY 06/16/18 08/21/18 History pantoprazole 40 mg PO BID 06/16/18 08/21/18 History potassium chloride 10 meq PO DAILY 06/16/18 08/21/18 History sucralfate 10 ml PO ACHS #100 ml 06/28/18 08/21/18 Rx tramadol 50 mg PO Q6 PRN #10 tab 06/28/18 08/21/18 Rx amoxicillin 500 mg PO TID 08/21/18 08/21/18 History simethicone [Mi-Acid Gas Relief] 80 mg PO Q6H PRN 08/21/18 08/21/18 History Past Med/Surg History Medical History Acquired buried penis (Chronic) BPH without urinary obstruction (Chronic) Benign hypertension (Chronic) Chronic diastolic CHF (congestive heart failure) (Chronic) DM (diabetes mellitus), type 2, uncontrolled w/ophthalmic complication (Chronic) Diverticulosis of colon (without mention of hemorrhage) (Chronic) Exertional dyspnea (Chronic) Gastric ulcer with hemorrhage but without obstruction (Chronic) H/O Clostridium difficile infection (Chronic) Hemangioma of skin (Chronic) History of chronic atrial fibrillation (Chronic) Morbid obesity (Chronic) JUAN MANUEL (obstructive sleep apnea) (Chronic) Sepsis (Chronic) Symptomatic anemia (Chronic) Urinary retention (Chronic) Social History Current Living Situation: Spouse Other Information That Helps Us Care for You: No Feels Safe at Home: Yes Safety Concerns: Feels Safe At This Time Smoking Status: Former smoker Hx Alcohol Use: No Hx Substance Use: No Beliefs That Will Affect Care: None Commercial Carpet Installer Required: Yes Review of Systems Could not be reliably obtained Physical Exam 2 Vital Signs (Past 24 Hours): Last Vital Signs Temp 38.4 C H 08/21/18 04:40 Pulse 90 08/21/18 05:16 Resp 24 08/21/18 03:35 BP 134/72 08/21/18 05:16 Pulse Ox 95 08/21/18 05:16 Physical Exam: GENERAL: Comfortable, obese, disoriented, hard of hearing, no respiratory distress SKIN: Pallor , warm HEENT: Pale palpebral conjunctivae, no ptosis, dry buccal mucosa, O2 mask in place NECK : Supple, short, no tenderness CHEST : Decreased breath sounds , no tenderness HEART : irregular, no obvious murmurs ABDOMEN: distention, nontender EXTREMITIES : Chronic LE venous stasis, no tenderness, no other conspicuous deformities noted NEUROLOGIC : Coherent, no facial asymmetry, no other gross focality Results & Data Laboratory Results Laboratory Results WBC 26.42 K/uL (4.8-10.8) H 08/21/18 03:47 RBC 4.91 M/uL (4.7-6.1) 08/21/18 03:47 Hgb 14.7 g/dL (14.0-18.0) 08/21/18 03:47 Hct 45.3 % (42-52) 08/21/18 03:47 MCV 92.3 fL (80-100) 08/21/18 03:47 MCH 29.9 pg (25-34) 08/21/18 03:47 MCHC 32.5 g/dL (32-36) 08/21/18 03:47 RDW Std Deviation 52.1 fL (36.4-46.3) H 08/21/18 03:47 RDW Coeff of Shadi 15.6 % (11.5-14.5) H 08/21/18 03:47 Plt Count 360 K/uL (130-400) 08/21/18 03:47 MPV 10.2 fL (7.4-10.4) 08/21/18 03:47 Immature Gran % (Auto) 0.6 % 08/21/18 03:47 Neut % (Auto) 88.0 % 08/21/18 03:47 Lymph % (Auto) 7.5 % 08/21/18 03:47 Rutherford % (Auto) 3.3 % 08/21/18 03:47 Eos % (Auto) 0.4 % 08/21/18 03:47 Baso % (Auto) 0.2 % 08/21/18 03:47 Immature Gran # (Auto) 0.17 K/uL (0.00-0.02) H 08/21/18 03:47 Neut # (Auto) 23.25 K/uL (1.4-6.5) H 08/21/18 03:47 Lymph # (Auto) 1.97 K/uL (1.2-3.4) 08/21/18 03:47 Rutherford # (Auto) 0.88 K/uL (0.11-0.59) H 08/21/18 03:47 Eos # (Auto) 0.11 K/uL (0-0.5) 08/21/18 03:47 Baso # (Auto) 0.04 K/uL (0-0.2) 08/21/18 03:47 APTT 24.0 Seconds (21.0-31.0) 08/21/18 03:47 PTT Ratio 0.9 08/21/18 03:47 Sodium 136 mmol/L (136-145) 08/21/18 03:47 Potassium 4.7 mmol/L (3.5-5.1) 08/21/18 03:47 Chloride 105 mmol/L (98-107) 08/21/18 03:47 Carbon Dioxide 22 mmol/L (21-32) 08/21/18 03:47 Anion Gap 9.0 (3-11) 08/21/18 03:47 BUN 24 mg/dl (7-18) H 08/21/18 03:47 Creatinine 1.63 mg/dl (0.6-1.4) H 08/21/18 03:47 Est Cr Clr Drug Dosing Not Reportable 08/21/18 03:47 Est GFR ( Amer) 46.4 08/21/18 03:47 Est GFR (Non-Af Amer) 40.0 08/21/18 03:47 BUN/Creatinine Ratio 14.9 (10-20) 08/21/18 03:47 Glucose 208 mg/dl (70-99) H 08/21/18 03:47 Lactate 5.2 mmol/L (0.4-2.0) H* 08/21/18 03:47 Calcium 7.9 mg/dl (8.5-10.1) L 08/21/18 03:47 Total Bilirubin 0.3 mg/dl (0.2-1) 08/21/18 03:47 AST 23 U/L (15-37) 08/21/18 03:47 ALT 16 U/L (12-78) 08/21/18 03:47 Alkaline Phosphatase 56 U/L (45-117) 08/21/18 03:47 Troponin I 0.200 ng/ml (0-0.045) H* 08/21/18 03:47 Total Protein 7.5 gm/dl (6.4-8.2) 08/21/18 03:47 Albumin 2.9 gm/dl (3.4-5.0) L 08/21/18 03:47 Globulin 4.6 gm/dl (2.5-4.0) H 08/21/18 03:47 Albumin/Globulin Ratio 0.6 (0.9-2) L 08/21/18 03:47 Specimen Hemolysis 08/21/18 03:47 Influenza Type A Ag Neg for Influ A (Neg) 08/21/18 03:50 Influenza Type B Ag Neg for Influ B (Neg) 08/21/18 03:50 Diagnostic Findings Chest x-ray as per my interpretation cardiomegaly/atelectasis EKG as per my interpretation : Rate 125, A. fib, T wave inversion lateral leads , PVCs CT head initial read no acute pathology CT chest initial read: Clear lungs, no acute abnormality CT abdomen pelvis initial read: No acute abnormality, postcholecystectomy
[2018-08-21 06:25] LABS: Amphetamines+Metham, Urine Neg (Neg); Barbiturates, Urine Neg (Neg); Benzodiazepine, Urine Pos (Neg); Cocaine, Urine Neg (Neg); MDMA (Ecstacy), Urine Neg (Neg); Methadone, Urine Neg (Neg); Opiate, Urine Pos (Neg); Phencyclidine, Urine Neg (Neg)
--- NOTE | 2018-08-21 06:33 | XRay Report ---
XR chest 1V portable HISTORY: 77 years-old Male fever, AMS acute fever COMPARISON: Chest radiograph 06/17/2018, chest CT 08/21/2018 TECHNIQUE: Portable AP view of the chest FINDINGS: Cardiac silhouette is mildly enlarged, unchanged. Calcification the thoracic aortic arch. No pneumoth orax, pleural effusion or overt pulmonary edema. Subsegmental bibasilar opacities are noted. Degenera tive changes of the shoulders and spine. IMPRESSION: 1. Cardiomegaly without overt pulmonary edema. 2. Minimal subsegmental bibasilar opacities are suggestive of atelectasis. The above report was generated using voice recognition software. It may contain grammatical, syntax o r spelling errors. Electronically signed by: Brandin Kruse M.D. 08/21/2018 6:32 AM
--- NOTE | 2018-08-21 06:34 | CT Scan Report ---
CT head/brain wo con CLINICAL HISTORY: Seizure. Acute change in mental status. COMPARISON STUDY: 06/16/2018 TECHNIQUE: Axial CT of the brain is performed from the vertex to the skull base. IV contrast was not administered for this examination. A dose lowering technique was utilized adhering to the principles of ALARA. CT DOSE: 844.62 mGy.cm FINDINGS: No intra or extra-axial mass lesions are visualized. There is no CT evidence of acute cortical infarc tion. There is no evidence of midline shift. There is no acute hemorrhage. No calvarial fractures ar e visualized. There are patchy white matter hypodensities likely on a small vessel basis. There is no evidence of pathologic ventricular dilatation. There is a right maxilla sinus air-fluid level. There is mild left maxilla sinus mucosal thickening. IMPRESSION: 1. No acute intracranial findings 2. Inflammatory changes within the maxillary sinuses. Electronically signed by: Esau Rosa M.D. 08/21/2018 6:33 AM
[2018-08-21 06:39] LABS: Appearance Urine Turbid (Clear); Bacteria Urine Automated 2+ (Negative); Bilirubin Urine Negative (Negative); Color Urine Yellow; Epithelial Cell Urine Auto 0-5 /lpf (0-5); Glucose Urine UA Negative (Negative); Ketones Urine Negative (Negative); Leukocyte Esterase Urine 3+ (Negative); Nitrite Urine Positive (Negative); Protein Urine 1+ (Negative); Urobilinogen Urine Negative (Negative); WBC Urine Automated >30 /hpf (0-5); pH Urine >= 9.0 (4.5-7.5)
--- NOTE | 2018-08-21 07:02 | Emergency Department Note ---
Entered by Parish Casas acting as a scribe for Nuha Justice MD History of Present Illness General Chief complaint: Unresponsive Source: EMS Mode of arrival: EMS Limitations: altered mental status History of Present Illness Onset (ago): unknown (Recent) Location: head HPI is limited due to AMS. The patient is a 77 year old male who presents to the ED via EMS due to a recent seizure. EMS states that the patient�s seizure lasted two minutes and they administered versed after the seizure. They add that the patient�s started noticing a decline in the patient�s mental state about an hour and a half ago. EMS denies the patient having a history of seizures and states the patient was recently diagnosed with a bladder infection and UTI 3 days ago. Home Medications Home Medications Medication Instructions Recorded Confirmed Type Lactobacillus acidophilus 10,000 mmu cells PO DAILY 06/16/18 08/21/18 History [Acidophilus] aspirin 81 mg PO DAILY 06/16/18 08/21/18 History digoxin 125 mcg PO DAILY 06/16/18 08/21/18 History ferrous sulfate 325 mg PO BID 06/16/18 08/21/18 History finasteride 5 mg PO DAILY 06/16/18 08/21/18 History furosemide 20 mg PO DAILY 06/16/18 08/21/18 History losartan 50 mg PO DAILY 06/16/18 08/21/18 History metformin 500 mg PO TIDM 06/16/18 08/21/18 History metoprolol succinate 200 mg PO DAILY 06/16/18 08/21/18 History pantoprazole 40 mg PO BID 06/16/18 08/21/18 History potassium chloride 10 meq PO DAILY 06/16/18 08/21/18 History sucralfate 10 ml PO ACHS #100 ml 06/28/18 08/21/18 Rx tramadol 50 mg PO Q6 PRN #10 tab 06/28/18 08/21/18 Rx amoxicillin 500 mg PO TID 08/21/18 08/21/18 History simethicone [Mi-Acid Gas Relief] 80 mg PO Q6H PRN 08/21/18 08/21/18 History Allergies Allergy/AdvReac Type Severity Reaction Status Date / Time metronidazole Allergy Severe see below Verified 08/21/18 05:05 amoxicillin Allergy Intermediate rash Verified 08/21/18 05:05 Past Med/Surg History Medical History Acquired buried penis (Chronic) BPH without urinary obstruction (Chronic) Benign hypertension (Chronic) Chronic diastolic CHF (congestive heart failure) (Chronic) DM (diabetes mellitus), type 2, uncontrolled w/ophthalmic complication (Chronic) Diverticulosis of colon (without mention of hemorrhage) (Chronic) Exertional dyspnea (Chronic) Gastric ulcer with hemorrhage but without obstruction (Chronic) H/O Clostridium difficile infection (Chronic) Hemangioma of skin (Chronic) History of chronic atrial fibrillation (Chronic) Morbid obesity (Chronic) JUAN MANUEL (obstructive sleep apnea) (Chronic) Sepsis (Chronic) Symptomatic anemia (Chronic) Urinary retention (Chronic) Social History marital status: Current Living Situation: Spouse Other Information That Helps Us Care for You: No Feels Safe at Home: Yes Safety Concerns: Feels Safe At This Time Smoking Status: Former smoker Hx Alcohol Use: No Hx Substance Use: No Beliefs That Will Affect Care: None Shirt Presser Required: Yes Review of Systems See HPI for pertinent positives & negatives. and A total of 10 systems reviewed and were otherwise negative Physical Exam Vital Signs Vital Signs - 24 hr 08/23/18 03:32 08/23/18 08:00 08/23/18 08:11 Temperature 36.7 C 36.9 C Temperature Source Oral Oral Pulse Rate Pulse Rate [Finger] 76 81 Respiratory Rate 18 16 Respiratory Effort / Characteristics Non-Labored Spontaneous SOB on Exertion Non-Labored Spontaneous Respiratory Depth Normal Normal Respiratory Pattern Regular Blood Pressure [Left Arm] 164/89 H Blood Pressure [Right Arm] 144/76 H Blood Pressure Mean [Left Arm] 114 Blood Pressure Mean [Right Arm] 98 Blood Pressure Position [Left Arm] Sitting Blood Pressure Position [Right Arm] Pulse Oximetry 93 91 Oxygen Delivery Method Room Air Room Air Oxygen Flow Rate Fraction of Inspired Oxygen 08/23/18 08:40 08/23/18 12:28 08/23/18 13:22 Temperature 35.3 C L 36.7 C Temperature Source Oral Oral Pulse Rate Pulse Rate [Finger] 84 Respiratory Rate 20 Respiratory Effort / Characteristics Non-Labored Spontaneous SOB on Exertion Respiratory Depth Normal Respiratory Pattern Regular Blood Pressure [Left Arm] 177/77 H Blood Pressure [Right Arm] Blood Pressure Mean [Left Arm] 110 Blood Pressure Mean [Right Arm] Blood Pressure Position [Left Arm] Sitting Blood Pressure Position [Right Arm] Pulse Oximetry 92 Oxygen Delivery Method Nasal Cannula Room Air Oxygen Flow Rate Fraction of Inspired Oxygen 2 08/23/18 15:28 08/23/18 16:28 08/23/18 17:43 Temperature 37.4 C 38 C H 38.7 C H Temperature Source Oral Oral Axillary Pulse Rate Pulse Rate [Finger] 96 H 92 H 98 H Respiratory Rate 22 28 H 20 Respiratory Effort / Characteristics Moaning Non-Labored Spontaneous Respiratory Depth Normal Normal Respiratory Pattern Regular Blood Pressure [Left Arm] 183/117 H 177/86 H Blood Pressure [Right Arm] 152/94 H Blood Pressure Mean [Left Arm] 139 116 Blood Pressure Mean [Right Arm] 113 Blood Pressure Position [Left Arm] Lying Lying Blood Pressure Position [Right Arm] Lying Semi-fowlers Pulse Oximetry 96 91 92 Oxygen Delivery Method Nasal Cannula Nasal Cannula Nasal Cannula Oxygen Flow Rate 2 2 2 Fraction of Inspired Oxygen 08/23/18 17:52 08/23/18 19:35 08/23/18 23:49 Temperature 36.5 C 36.6 C Temperature Source Oral Oral Pulse Rate 98 H Pulse Rate [Finger] 96 H 89 Respiratory Rate 20 17 Respiratory Effort / Characteristics Non-Labored Spontaneous Respiratory Depth Normal Respiratory Pattern Regular Blood Pressure [Left Arm] 150/87 H 146/72 H Blood Pressure [Right Arm] Blood Pressure Mean [Left Arm] 108 96 Blood Pressure Mean [Right Arm] Blood Pressure Position [Left Arm] Lying Lying Blood Pressure Position [Right Arm] Pulse Oximetry 90 95 Oxygen Delivery Method Nasal Cannula Nasal Cannula Nasal Cannula Oxygen Flow Rate 2 2 1 Fraction of Inspired Oxygen 08/24/18 00:20 08/24/18 01:17 Temperature Temperature Source Pulse Rate 84 150 H Pulse Rate [Finger] Respiratory Rate 32 H Respiratory Effort / Characteristics Spontaneous Accessory Muscle Use Grunting Labored Short of Breath Respiratory Depth Normal Respiratory Pattern Tachypnea Blood Pressure [Left Arm] Blood Pressure [Right Arm] Blood Pressure Mean [Left Arm] Blood Pressure Mean [Right Arm] Blood Pressure Position [Left Arm] Blood Pressure Position [Right Arm] Pulse Oximetry 95 Oxygen Delivery Method Oxygen Flow Rate Fraction of Inspired Oxygen 60 Vital signs reviewed. General: Chronically ill-appearing obese male, with increased work of breathing. HEENT: No scleral icterus, PERRLA, neck supple. Atraumatic. Cardiovascular: Tachycardic rate and irregular rhythm, no extra sounds. Pulmonary: Clear to auscultation bilaterally, normal work of breathing. Abdomen: Obese, soft, nontender, patiño catheter in place, nondistended, positive bowel sounds. Musculoskeletal: Atraumatic, no peripheral edema. Neurologic: Patient awake but confused, moaning, unable to answer questions, does turn head to verbal stimuli otherwise cranial nerves 2 through 12 grossly intact. Skin: BLE venous stasis changes otherwise warm, dry, no rash Course 0336: Past medical records reviewed. The patient was evaluated in room B1, and a complete history and physical examination were performed. 0444: Upon reevaluation, the patient will be further evaluated. I updated the patient and his on the patient's findings and treatment plan. They are agreeable to the treatment plan. Patient will be assessed for further evaluation. Consultations Consultation #1: I reviewed the patient's case with Dr. Boyce. He will evaluate the patient for further management. Time: 04:42 Administered Medications Acetaminophen (Tylenol) 325 mg PO Q6H PRN PRN Reason: Pain or Fever Stop: 09/20/18 07:03 Last Admin: 08/23/18 18:16 Dose: 325 mg Admin: 08/21/18 10:09 Dose: 325 mg Hydrocodone Bitart/Acetaminophen (Norris 5/325) 1 tab PO Q4H PRN PRN Reason: Pain Stop: 09/04/18 07:03 Last Admin: 08/23/18 19:49 Dose: 1 tab Admin: 08/23/18 06:02 Dose: 1 tab Admin: 08/22/18 22:19 Dose: 1 tab Admin: 08/22/18 02:42 Dose: 1 tab Admin: 08/21/18 20:09 Dose: 1 tab Aspirin (Ecotrin Ectab) 81 mg PO DAILY MARIYA Stop: 09/20/18 08:59 Last Admin: 08/23/18 08:08 Dose: 81 mg Admin: 08/22/18 08:37 Dose: 81 mg Admin: 08/21/18 09:10 Dose: 81 mg Finasteride (Proscar) 5 mg PO DAILY MARIYA Stop: 09/20/18 08:59 Last Admin: 08/23/18 08:07 Dose: 5 mg Admin: 08/22/18 08:37 Dose: 5 mg Admin: 08/21/18 09:10 Dose: 5 mg Gadobutrol (Gadavist 65ml) 13 ml IV ONCE PRN PRN Reason: Interaction Checking Stop: 08/26/18 19:23 Last Admin: 08/22/18 19:25 Dose: 13 ml Vancomycin HCl 1,750 mg/ (Sodium Chloride) 535 mls @ 200 mls/hr IV Q12H [facility] Stop: 09/01/18 21:59 Last Infusion: 08/23/18 23:58 Dose: 0 mls/hr Admin: 08/23/18 21:21 Dose: 200 mls/hr Infusion: 08/23/18 13:55 Dose: 0 mls/hr Admin: 08/23/18 10:08 Dose: 200 mls/hr Infusion: 08/23/18 00:47 Dose: 0 mls/hr Admin: 08/22/18 21:43 Dose: 200 mls/hr Cefepime HCl 2,000 mg/ Syringe 20 mls @ 5 mls/min IV Q12H [facility]; Protocol Stop: 08/31/18 07:03 Last Admin: 08/23/18 19:23 Dose: 5 mls/min Acyclovir Sodium 775 mg/ (Dextrose) 265.5 mls @ 250 mls/hr IV Q8H [facility]; Protocol Stop: 09/22/18 16:59 Last Admin: 08/23/18 23:58 Dose: 250 mls/hr Infusion: 08/23/18 18:44 Dose: 0 mls/hr Admin: 08/23/18 17:33 Dose: 250 mls/hr Insulin Aspart (Novolog Flexpen) 0 units SC ACHS [facility] Stop: 09/20/18 07:29 Last Admin: 08/23/18 20:29 Dose: 4 units Admin: 08/23/18 17:32 Dose: Not Given Admin: 08/23/18 11:52 Dose: 4 units Admin: 08/23/18 08:09 Dose: 4 units Admin: 08/22/18 21:01 Dose: 1 units Admin: 08/22/18 17:24 Dose: 5 units Admin: 08/22/18 12:37 Dose: 4 units Admin: 08/22/18 08:34 Dose: 3 units Admin: 08/21/18 20:05 Dose: Not Given Admin: 08/21/18 17:37 Dose: 1 units Admin: 08/21/18 12:26 Dose: 1 units Admin: 08/21/18 09:06 Dose: 2 units Insulin Glargine (Lantus Solostar Pen) 5 units SQ DAILY MARIYA Stop: 09/20/18 08:59 Last Admin: 08/23/18 08:10 Dose: 5 units Admin: 08/22/18 08:35 Dose: 5 units Admin: 08/21/18 09:06 Dose: 5 units Lactobacillus Acidophilus (Floranex Granules/Powder Packet) 1 gm PO DAILY MARIYA Stop: 09/20/18 08:59 Last Admin: 08/23/18 08:10 Dose: 1 gm Admin: 08/22/18 08:37 Dose: 1 gm Admin: 08/21/18 09:10 Dose: 1 gm Levetiracetam (Keppra) 500 mg PO BID MARIYA Stop: 09/20/18 20:59 Last Admin: 08/23/18 19:26 Dose: 500 mg Admin: 08/23/18 08:06 Dose: 500 mg Admin: 08/22/18 21:00 Dose: 500 mg Admin: 08/22/18 08:37 Dose: 500 mg Admin: 08/21/18 20:00 Dose: 500 mg Metoprolol Succinate (Toprol Xl) 200 mg PO DAILY MARIYA Stop: 09/20/18 08:59 Last Admin: 08/23/18 08:05 Dose: 200 mg Admin: 08/22/18 08:38 Dose: 200 mg Admin: 08/21/18 09:11 Dose: 200 mg Pantoprazole Sodium (Protonix) 40 mg PO BID MARIYA Stop: 09/20/18 08:59 Last Admin: 08/23/18 19:24 Dose: 40 mg Admin: 08/23/18 08:05 Dose: 40 mg Admin: 08/22/18 21:00 Dose: 40 mg Admin: 08/22/18 08:37 Dose: 40 mg Admin: 08/21/18 20:00 Dose: 40 mg Admin: 08/21/18 09:10 Dose: 40 mg Sucralfate (Carafate) 1 gm PO ACHS MARIYA Stop: 09/20/18 07:29 Last Admin: 08/23/18 19:24 Dose: 1 gm Admin: 08/23/18 17:33 Dose: 1 gm Admin: 08/23/18 11:52 Dose: 1 gm Admin: 08/23/18 06:30 Dose: 1 gm Admin: 08/22/18 21:00 Dose: 1 gm Admin: 08/22/18 17:24 Dose: 1 gm Admin: 08/22/18 12:36 Dose: 1 gm Admin: 08/22/18 08:37 Dose: 1 gm Admin: 08/21/18 19:55 Dose: 1 gm Admin: 08/21/18 17:35 Dose: 1 gm Admin: 08/21/18 12:09 Dose: 1 gm Admin: 08/21/18 09:10 Dose: 1 gm Discontinued Medications Ferrous Sulfate (Feosol) 325 mg PO BID MARIYA Stop: 09/20/18 08:59 Last Admin: 08/23/18 19:25 Dose: 325 mg Admin: 08/23/18 08:06 Dose: 325 mg Admin: 08/22/18 21:00 Dose: 325 mg Admin: 08/22/18 08:37 Dose: 325 mg Admin: 08/21/18 20:01 Dose: 325 mg Admin: 08/21/18 09:10 Dose: 325 mg Sodium Chloride (Nss 1000ml) 1,000 mls @ 125 mls/hr IV .Q8H [facility]IYA Stop: 09/20/18 03:44 Last Infusion: 08/21/18 07:31 Dose: 0 mls/hr Admin: 08/21/18 04:22 Dose: 125 mls/hr Sodium Chloride (Nss 1000ml) 500 mls @ 999 mls/hr IV .Q31M ONE Stop: 08/21/18 05:00 Last Infusion: 08/21/18 05:21 Dose: 0 mls/hr Admin: 08/21/18 04:46 Dose: 999 mls/hr Acetaminophen (Ofirmev) 65 mls @ 200 mls/hr IV NOW ONE Stop: 08/21/18 05:10 Last Infusion: 08/21/18 05:32 Dose: 0 mls/hr Admin: 08/21/18 05:13 Dose: 200 mls/hr Ceftriaxone Sodium 2,000 mg/ (Dextrose) 70 mls @ 100 mls/hr IV NOW STA Stop: 08/21/18 05:35 Last Infusion: 08/21/18 07:32 Dose: 0 mls/hr Admin: 08/21/18 05:53 Dose: 100 mls/hr Vancomycin HCl 2,750 mg/ (Sodium Chloride) 555 mls @ 200 mls/hr IV NOW ONE Stop: 08/21/18 07:40 Last Infusion: 08/21/18 08:11 Dose: 0 mls/hr Admin: 08/21/18 05:21 Dose: 200 mls/hr Levetiracetam 1,000 mg/ (Dextrose) 110 mls @ 440 mls/hr IV NOW STA Stop: 08/21/18 06:03 Last Infusion: 08/21/18 07:31 Dose: 0 mls/hr Admin: 08/21/18 06:51 Dose: 440 mls/hr Sodium Chloride (Nss 1000ml) 1,000 mls @ 200 mls/hr IV .Q5H [facility]IYA Stop: 08/21/18 13:03 Last Infusion: 08/21/18 17:56 Dose: 0 mls/hr Admin: 08/21/18 12:09 Dose: 200 mls/hr Infusion: 08/21/18 12:09 Dose: 0 mls/hr Admin: 08/21/18 07:30 Dose: 200 mls/hr Cefepime HCl 2,000 mg/ Syringe 20 mls @ 5 mls/min IV 0730 ONE Stop: 08/21/18 07:33 Last Admin: 08/21/18 09:01 Dose: 5 mls/min Cefepime HCl 2,000 mg/ Syringe 20 mls @ 5 mls/min IV Q24H [facility]IYA; Protocol Stop: 08/30/18 07:03 Last Admin: 08/23/18 08:01 Dose: 5 mls/min Admin: 08/22/18 06:11 Dose: 5 mls/min Vancomycin HCl 1,750 mg/ (Sodium Chloride) 535 mls @ 200 mls/hr IV Q16H [facility] Stop: 08/31/18 17:59 Last Infusion: 08/22/18 12:34 Dose: 0 mls/hr Admin: 08/22/18 09:36 Dose: 200 mls/hr Infusion: 08/21/18 22:04 Dose: 0 mls/hr Admin: 08/21/18 17:55 Dose: 200 mls/hr Sodium Chloride (Nss) 500 mls @ 250 mls/hr IV .Q2H [facility]IYA Stop: 08/21/18 20:44 Last Infusion: 08/21/18 22:04 Dose: 0 mls/hr Admin: 08/21/18 19:54 Dose: 250 mls/hr Metoprolol Tartrate (Lopressor) 5 mg IV Q5M PRN PRN Reason: Tachycardia Stop: 09/20/18 03:44 Last Admin: 08/21/18 04:25 Dose: 5 mg Medical Decision Making Differential Diagnosis Differential diagnosis: Etiologies such as viral syndrome, otitis, pharyngitis, pneumonia, influenza, meningitis, urinary tract infection, septic arthritis, soft tissue infectious process, intra-abdominal process, sepsis, bacteremia, as well as others were entertained. Medical Records Attestation: I reviewed the patient's medical records. Home Medications Current Medication List: was personally reviewed by me Laboratory Data Attestation: I reviewed the patient's lab results. Result diagrams: 08/23/18 06:16 08/23/18 06:16 Lab Results 08/21/18 08/21/18 08/21/18 Range/Units 03:47 03:47 03:47 WBC 26.42 H (4.8-10.8) K/uL RBC 4.91 (4.7-6.1) M/uL Hgb 14.7 (14.0-18.0) g/dL Hct 45.3 (42-52) % MCV 92.3 (80-100) fL MCH 29.9 (25-34) pg MCHC 32.5 (32-36) g/dL RDW Std Deviation 52.1 H (36.4-46.3) fL RDW Coeff of Shadi 15.6 H (11.5-14.5) % Plt Count 360 (130-400) K/uL MPV 10.2 (7.4-10.4) fL Immature Gran % (Auto) 0.6 % Neut % (Auto) 88.0 % Lymph % (Auto) 7.5 % [place] % (Auto) 3.3 % Eos % (Auto) 0.4 % Baso % (Auto) 0.2 % Immature Gran # (Auto) 0.17 H (0.00-0.02) K/uL Neut # (Auto) 23.25 H (1.4-6.5) K/uL Lymph # (Auto) 1.97 (1.2-3.4) K/uL [place] # (Auto) 0.88 H (0.11-0.59) K/uL Eos # (Auto) 0.11 (0-0.5) K/uL Baso # (Auto) 0.04 (0-0.2) K/uL APTT (21.0-31.0) Seconds PTT Ratio ABG pH (7.35-7.45) ABG pCO2 (35-46) mmHg ABG pO2 (80-95) mm/Hg ABG HCO3 (19-24) mmol/L ABG O2 Saturation (90-95) % ABG Base Excess (-9-1.8) mEq/L Dimitry Test (Pos) Barometric Pressure mm/Hg Oxygen Given Sodium 136 (136-145) mmol/L Potassium 4.7 (3.5-5.1) mmol/L Chloride 105 (98-107) mmol/L Carbon Dioxide 22 (21-32) mmol/L Anion Gap 9.0 (3-11) BUN 24 H (7-18) mg/dl Creatinine 1.63 H (0.6-1.4) mg/dl Est Cr Clr Drug Dosing Not Reportable Est GFR ( Amer) 46.4 Est GFR (Non-Af Amer) 40.0 BUN/Creatinine Ratio 14.9 (10-20) Glucose 208 H (70-99) mg/dl POC Glucose (70-99) Lactate 5.2 H* (0.4-2.0) mmol/L Calcium 7.9 L (8.5-10.1) mg/dl Magnesium (1.8-2.4) mg/dl Total Bilirubin 0.3 (0.2-1) mg/dl AST 23 (15-37) U/L ALT 16 (12-78) U/L Alkaline Phosphatase 56 (45-117) U/L Ammonia (11-32) umol/L Troponin I 0.200 H* (0-0.045) ng/ml Total Protein 7.5 (6.4-8.2) gm/dl Albumin 2.9 L (3.4-5.0) gm/dl Globulin 4.6 H (2.5-4.0) gm/dl Albumin/Globulin Ratio 0.6 L (0.9-2) Procalcitonin (0-0.5) ng/ml TSH (0.300-4.500) uIu/ml Specimen Hemolysis Urine Color Urine Appearance (Clear) Urine pH (4.5-7.5) Ur Specific [place] (1.000-1.030) Urine Protein (Negative) Urine Glucose (UA) (Negative) Urine Ketones (Negative) Urine Blood (Negative) Urine Nitrite (Negative) Urine Bilirubin (Negative) Urine Urobilinogen (Negative) Ur Leukocyte Esterase (Negative) Urine WBC (Auto) (0-5) /hpf Urine RBC (Auto) (0-4) /hpf U Hyaline Cast (Auto) (0-5) /lpf U Epithel Cells (Auto) (0-5) /lpf Urine Bacteria (Auto) (Negative) CSF Appearance CSF Color Xanthrochromic CSF WBC (0-5) /uL CSF RBC (0-) /uL CSF Cell Count Tube # CSF Chemistry Tube # CSF Glucose (40-70) mg/dl CSF Total Protein (15-45) mg/dl Digoxin (0.8-2.0) ng/ml Urine Opiates Screen (Neg) U Codeine Confrm GC/MS (CUTOFF=50) NG/ML Ur Morphine (GC/MS) (CUTOFF=50) NG/ML Ur Hydrocodone (GC/MS) (CUTOFF=50) NG/ML Ur Norhydrocodone (CUTOFF=50) NG/ML Ur Noroxycodone (CUTOFF=50) NG/ML Urine Oxycodone (GC/MS) (CUTOFF=50) NG/ML U Oxymorphone GC/MS (CUTOFF=50) NG/ML Ur Methadone, Qual (Neg) Ur Hydromorphone (GC/MS) (CUTOFF=50) NG/ML Urine Barbiturates (Neg) Ur Phencyclidine (PCP) (Neg) U Amphetamin/Meth Scrn (Neg) MDMA (Ecstasy) Screen (Neg) U OH-Alprazolam Confrm (CUTOFF=25) NG/ML U Benzodiazepines Scrn (Neg) 7-Amino Clonazepam (CUTOFF=25) NG/ML Ur Nordiazepam Confirm (CUTOFF=50) NG/ML U OH-ethylflurazepam (CUTOFF=50) NG/ML U Lorazepam Cnf GC/MS (CUTOFF=50) NG/ML U Oxazepam Confm GC/MS (CUTOFF=50) NG/ML Ur Temazepam Confirm (CUTOFF=50) NG/ML U OH-Triazolam Confirm (CUTOFF=50) NG/ML U OH-Midazolam Confirm (CUTOFF=50) NG/ML Ur Cocaine Metabolite (Neg) U Marijuana (THC) Screen (Neg) Influenza Type A Ag (Neg) Influenza Type B Ag (Neg) 08/21/18 08/21/18 08/21/18 Range/Units 03:47 03:50 05:57 WBC (4.8-10.8) K/uL RBC (4.7-6.1) M/uL Hgb (14.0-18.0) g/dL Hct (42-52) % MCV (80-100) fL MCH (25-34) pg MCHC (32-36) g/dL RDW Std Deviation (36.4-46.3) fL RDW Coeff of Shadi (11.5-14.5) % Plt Count (130-400) K/uL MPV (7.4-10.4) fL Immature Gran % (Auto) % Neut % (Auto) % Lymph % (Auto) % [place] % (Auto) % Eos % (Auto) % Baso % (Auto) % Immature Gran # (Auto) (0.00-0.02) K/uL Neut # (Auto) (1.4-6.5) K/uL Lymph # (Auto) (1.2-3.4) K/uL [place] # (Auto) (0.11-0.59) K/uL Eos # (Auto) (0-0.5) K/uL Baso # (Auto) (0-0.2) K/uL APTT 24.0 (21.0-31.0) Seconds PTT Ratio 0.9 ABG pH (7.35-7.45) ABG pCO2 (35-46) mmHg ABG pO2 (80-95) mm/Hg ABG HCO3 (19-24) mmol/L ABG O2 Saturation (90-95) % ABG Base Excess (-9-1.8) mEq/L Dimitry Test (Pos) Barometric Pressure mm/Hg Oxygen Given Sodium (136-145) mmol/L Potassium (3.5-5.1) mmol/L Chloride (98-107) mmol/L Carbon Dioxide (21-32) mmol/L Anion Gap (3-11) BUN (7-18) mg/dl Creatinine (0.6-1.4) mg/dl Est Cr Clr Drug Dosing Est GFR ( Amer) Est GFR (Non-Af Amer) BUN/Creatinine Ratio (10-20) Glucose (70-99) mg/dl POC Glucose (70-99) Lactate (0.4-2.0) mmol/L Calcium (8.5-10.1) mg/dl Magnesium (1.8-2.4) mg/dl Total Bilirubin (0.2-1) mg/dl AST (15-37) U/L ALT (12-78) U/L Alkaline Phosphatase (45-117) U/L Ammonia (11-32) umol/L Troponin I (0-0.045) ng/ml Total Protein (6.4-8.2) gm/dl Albumin (3.4-5.0) gm/dl Globulin (2.5-4.0) gm/dl Albumin/Globulin Ratio (0.9-2) Procalcitonin (0-0.5) ng/ml TSH (0.300-4.500) uIu/ml Specimen Hemolysis Urine Color Yellow Urine Appearance Turbid H (Clear) Urine pH >= 9.0 H (4.5-7.5) Ur Specific [place] 1.020 (1.000-1.030) Urine Protein 1+ H (Negative) Urine Glucose (UA) Negative (Negative) Urine Ketones Negative (Negative) Urine Blood Trace H (Negative) Urine Nitrite Positive H (Negative) Urine Bilirubin Negative (Negative) Urine Urobilinogen Negative (Negative) Ur Leukocyte Esterase 3+ H (Negative) Urine WBC (Auto) >30 H (0-5) /hpf Urine RBC (Auto) 5-10 H (0-4) /hpf U Hyaline Cast (Auto) 5-10 H (0-5) /lpf U Epithel Cells (Auto) 0-5 (0-5) /lpf Urine Bacteria (Auto) 2+ H (Negative) CSF Appearance CSF Color Xanthrochromic CSF WBC (0-5) /uL CSF RBC (0-) /uL CSF Cell Count Tube # CSF Chemistry Tube # CSF Glucose (40-70) mg/dl CSF Total Protein (15-45) mg/dl Digoxin (0.8-2.0) ng/ml Urine Opiates Screen (Neg) U Codeine Confrm GC/MS (CUTOFF=50) NG/ML Ur Morphine (GC/MS) (CUTOFF=50) NG/ML Ur Hydrocodone (GC/MS) (CUTOFF=50) NG/ML Ur Norhydrocodone (CUTOFF=50) NG/ML Ur Noroxycodone (CUTOFF=50) NG/ML Urine Oxycodone (GC/MS) (CUTOFF=50) NG/ML U Oxymorphone GC/MS (CUTOFF=50) NG/ML Ur Methadone, Qual (Neg) Ur Hydromorphone (GC/MS) (CUTOFF=50) NG/ML Urine Barbiturates (Neg) Ur Phencyclidine (PCP) (Neg) U Amphetamin/Meth Scrn (Neg) MDMA (Ecstasy) Screen (Neg) U OH-Alprazolam Confrm (CUTOFF=25) NG/ML U Benzodiazepines Scrn (Neg) 7-Amino Clonazepam (CUTOFF=25) NG/ML Ur Nordiazepam Confirm (CUTOFF=50) NG/ML U OH-ethylflurazepam (CUTOFF=50) NG/ML U Lorazepam Cnf GC/MS (CUTOFF=50) NG/ML U Oxazepam Confm GC/MS (CUTOFF=50) NG/ML Ur Temazepam Confirm (CUTOFF=50) NG/ML U OH-Triazolam Confirm (CUTOFF=50) NG/ML U OH-Midazolam Confirm (CUTOFF=50) NG/ML Ur Cocaine Metabolite (Neg) U Marijuana (THC) Screen (Neg) Influenza Type A Ag Neg for Influ A (Neg) Influenza Type B Ag Neg for Influ B (Neg) 08/21/18 08/21/18 08/21/18 Range/Units 05:57 05:57 07:13 WBC (4.8-10.8) K/uL RBC (4.7-6.1) M/uL Hgb (14.0-18.0) g/dL Hct (42-52) % MCV (80-100) fL MCH (25-34) pg MCHC (32-36) g/dL RDW Std Deviation (36.4-46.3) fL RDW Coeff of Shadi (11.5-14.5) % Plt Count (130-400) K/uL MPV (7.4-10.4) fL Immature Gran % (Auto) % Neut % (Auto) % Lymph % (Auto) % [place] % (Auto) % Eos % (Auto) % Baso % (Auto) % Immature Gran # (Auto) (0.00-0.02) K/uL Neut # (Auto) (1.4-6.5) K/uL Lymph # (Auto) (1.2-3.4) K/uL [place] # (Auto) (0.11-0.59) K/uL Eos # (Auto) (0-0.5) K/uL Baso # (Auto) (0-0.2) K/uL APTT (21.0-31.0) Seconds PTT Ratio ABG pH (7.35-7.45) ABG pCO2 (35-46) mmHg ABG pO2 (80-95) mm/Hg ABG HCO3 (19-24) mmol/L ABG O2 Saturation (90-95) % ABG Base Excess (-9-1.8) mEq/L Dimitry Test (Pos) Barometric Pressure mm/Hg Oxygen Given Sodium (136-145) mmol/L Potassium (3.5-5.1) mmol/L Chloride (98-107) mmol/L Carbon Dioxide (21-32) mmol/L Anion Gap (3-11) BUN (7-18) mg/dl Creatinine (0.6-1.4) mg/dl Est Cr Clr Drug Dosing Est GFR ( Amer) Est GFR (Non-Af Amer) BUN/Creatinine Ratio (10-20) Glucose (70-99) mg/dl POC Glucose (70-99) Lactate (0.4-2.0) mmol/L Calcium (8.5-10.1) mg/dl Magnesium 2.2 (1.8-2.4) mg/dl Total Bilirubin (0.2-1) mg/dl AST (15-37) U/L ALT (12-78) U/L Alkaline Phosphatase (45-117) U/L Ammonia (11-32) umol/L Troponin I 0.225 H* (0-0.045) ng/ml Total Protein (6.4-8.2) gm/dl Albumin (3.4-5.0) gm/dl Globulin (2.5-4.0) gm/dl Albumin/Globulin Ratio (0.9-2) Procalcitonin (0-0.5) ng/ml TSH 0.891 (0.300-4.500) uIu/ml Specimen Hemolysis Urine Color Urine Appearance (Clear) Urine pH (4.5-7.5) Ur Specific [place] (1.000-1.030) Urine Protein (Negative) Urine Glucose (UA) (Negative) Urine Ketones (Negative) Urine Blood (Negative) Urine Nitrite (Negative) Urine Bilirubin (Negative) Urine Urobilinogen (Negative) Ur Leukocyte Esterase (Negative) Urine WBC (Auto) (0-5) /hpf Urine RBC (Auto) (0-4) /hpf U Hyaline Cast (Auto) (0-5) /lpf U Epithel Cells (Auto) (0-5) /lpf Urine Bacteria (Auto) (Negative) CSF Appearance CSF Color Xanthrochromic CSF WBC (0-5) /uL CSF RBC (0-) /uL CSF Cell Count Tube # CSF Chemistry Tube # CSF Glucose (40-70) mg/dl CSF Total Protein (15-45) mg/dl Digoxin (0.8-2.0) ng/ml Urine Opiates Screen Pos H (Neg) U Codeine Confrm GC/MS NEGATIVE (CUTOFF=50) NG/ML Ur Morphine (GC/MS) NEGATIVE (CUTOFF=50) NG/ML Ur Hydrocodone (GC/MS) NEGATIVE (CUTOFF=50) NG/ML Ur Norhydrocodone 65 A (CUTOFF=50) NG/ML Ur Noroxycodone NEGATIVE (CUTOFF=50) NG/ML Urine Oxycodone (GC/MS) NEGATIVE (CUTOFF=50) NG/ML U Oxymorphone GC/MS NEGATIVE (CUTOFF=50) NG/ML Ur Methadone, Qual Neg (Neg) Ur Hydromorphone (GC/MS) NEGATIVE (CUTOFF=50) NG/ML Urine Barbiturates Neg (Neg) Ur Phencyclidine (PCP) Neg (Neg) U Amphetamin/Meth Scrn Neg (Neg) MDMA (Ecstasy) Screen Neg (Neg) U [place]-Alprazolam Confrm NEGATIVE (CUTOFF=25) NG/ML U Benzodiazepines Scrn Pos H (Neg) 7-Amino Clonazepam NEGATIVE (CUTOFF=25) NG/ML Ur Nordiazepam Confirm NEGATIVE (CUTOFF=50) NG/ML U OH-ethylflurazepam NEGATIVE (CUTOFF=50) NG/ML U Lorazepam Cnf GC/MS NEGATIVE (CUTOFF=50) NG/ML U Oxazepam Confm GC/MS NEGATIVE (CUTOFF=50) NG/ML Ur Temazepam Confirm NEGATIVE (CUTOFF=50) NG/ML U OH-Triazolam Confirm NEGATIVE (CUTOFF=50) NG/ML U OH-Midazolam Confirm NEGATIVE (CUTOFF=50) NG/ML Ur Cocaine Metabolite Neg (Neg) U Marijuana (THC) Screen Neg (Neg) Influenza Type A Ag (Neg) Influenza Type B Ag (Neg) 08/21/18 08/21/18 08/21/18 Range/Units 07:13 07:13 07:13 WBC (4.8-10.8) K/uL RBC (4.7-6.1) M/uL Hgb (14.0-18.0) g/dL Hct (42-52) % MCV (80-100) fL MCH (25-34) pg MCHC (32-36) g/dL RDW Std Deviation (36.4-46.3) fL RDW Coeff of Shadi (11.5-14.5) % Plt Count (130-400) K/uL MPV (7.4-10.4) fL Immature Gran % (Auto) % Neut % (Auto) % Lymph % (Auto) % [place] % (Auto) % Eos % (Auto) % Baso % (Auto) % Immature Gran # (Auto) (0.00-0.02) K/uL Neut # (Auto) (1.4-6.5) K/uL Lymph # (Auto) (1.2-3.4) K/uL [place] # (Auto) (0.11-0.59) K/uL Eos # (Auto) (0-0.5) K/uL Baso # (Auto) (0-0.2) K/uL APTT (21.0-31.0) Seconds PTT Ratio ABG pH (7.35-7.45) ABG pCO2 (35-46) mmHg ABG pO2 (80-95) mm/Hg ABG HCO3 (19-24) mmol/L ABG O2 Saturation (90-95) % ABG Base Excess (-9-1.8) mEq/L Dimitry Test (Pos) Barometric Pressure mm/Hg Oxygen Given Sodium (136-145) mmol/L Potassium (3.5-5.1) mmol/L Chloride (98-107) mmol/L Carbon Dioxide (21-32) mmol/L Anion Gap (3-11) BUN (7-18) mg/dl Creatinine (0.6-1.4) mg/dl Est Cr Clr Drug Dosing Est GFR ( Amer) Est GFR (Non-Af Amer) BUN/Creatinine Ratio (10-20) Glucose (70-99) mg/dl POC Glucose (70-99) Lactate 3.1 H* (0.4-2.0) mmol/L Calcium (8.5-10.1) mg/dl Magnesium (1.8-2.4) mg/dl Total Bilirubin (0.2-1) mg/dl AST (15-37) U/L ALT (12-78) U/L Alkaline Phosphatase (45-117) U/L Ammonia 18.0 (11-32) umol/L Troponin I (0-0.045) ng/ml Total Protein (6.4-8.2) gm/dl Albumin (3.4-5.0) gm/dl Globulin (2.5-4.0) gm/dl Albumin/Globulin Ratio (0.9-2) Procalcitonin (0-0.5) ng/ml TSH (0.300-4.500) uIu/ml Specimen Hemolysis Urine Color Urine Appearance (Clear) Urine pH (4.5-7.5) Ur Specific [place] (1.000-1.030) Urine Protein (Negative) Urine Glucose (UA) (Negative) Urine Ketones (Negative) Urine Blood (Negative) Urine Nitrite (Negative) Urine Bilirubin (Negative) Urine Urobilinogen (Negative) Ur Leukocyte Esterase (Negative) Urine WBC (Auto) (0-5) /hpf Urine RBC (Auto) (0-4) /hpf U Hyaline Cast (Auto) (0-5) /lpf U Epithel Cells (Auto) (0-5) /lpf Urine Bacteria (Auto) (Negative) CSF Appearance CSF Color Xanthrochromic CSF WBC (0-5) /uL CSF RBC (0-) /uL CSF Cell Count Tube # CSF Chemistry Tube # CSF Glucose (40-70) mg/dl CSF Total Protein (15-45) mg/dl Digoxin 0.7 L (0.8-2.0) ng/ml Urine Opiates Screen (Neg) U Codeine Confrm GC/MS (CUTOFF=50) NG/ML Ur Morphine (GC/MS) (CUTOFF=50) NG/ML Ur Hydrocodone (GC/MS) (CUTOFF=50) NG/ML Ur Norhydrocodone (CUTOFF=50) NG/ML Ur Noroxycodone (CUTOFF=50) NG/ML Urine Oxycodone (GC/MS) (CUTOFF=50) NG/ML U Oxymorphone GC/MS (CUTOFF=50) NG/ML Ur Methadone, Qual (Neg) Ur Hydromorphone (GC/MS) (CUTOFF=50) NG/ML Urine Barbiturates (Neg) Ur Phencyclidine (PCP) (Neg) U Amphetamin/Meth Scrn (Neg) MDMA (Ecstasy) Screen (Neg) U OH-Alprazolam Confrm (CUTOFF=25) NG/ML U Benzodiazepines Scrn (Neg) 7-Amino Clonazepam (CUTOFF=25) NG/ML Ur Nordiazepam Confirm (CUTOFF=50) NG/ML U OH-ethylflurazepam (CUTOFF=50) NG/ML U Lorazepam Cnf GC/MS (CUTOFF=50) NG/ML U Oxazepam Confm GC/MS (CUTOFF=50) NG/ML Ur Temazepam Confirm (CUTOFF=50) NG/ML U OH-Triazolam Confirm (CUTOFF=50) NG/ML U OH-Midazolam Confirm (CUTOFF=50) NG/ML Ur Cocaine Metabolite (Neg) U Marijuana (THC) Screen (Neg) Influenza Type A Ag (Neg) Influenza Type B Ag (Neg) 08/21/18 08/21/18 08/21/18 Range/Units 07:13 07:27 07:30 WBC (4.8-10.8) K/uL RBC (4.7-6.1) M/uL Hgb (14.0-18.0) g/dL Hct (42-52) % MCV (80-100) fL MCH (25-34) pg MCHC (32-36) g/dL RDW Std Deviation (36.4-46.3) fL RDW Coeff of Shadi (11.5-14.5) % Plt Count (130-400) K/uL MPV (7.4-10.4) fL Immature Gran % (Auto) % Neut % (Auto) % Lymph % (Auto) % [place] % (Auto) % Eos % (Auto) % Baso % (Auto) % Immature Gran # (Auto) (0.00-0.02) K/uL Neut # (Auto) (1.4-6.5) K/uL Lymph # (Auto) (1.2-3.4) K/uL [place] # (Auto) (0.11-0.59) K/uL Eos # (Auto) (0-0.5) K/uL Baso # (Auto) (0-0.2) K/uL APTT (21.0-31.0) Seconds PTT Ratio ABG pH 7.43 (7.35-7.45) ABG pCO2 33 L (35-46) mmHg ABG pO2 113 H (80-95) mm/Hg ABG HCO3 21 (19-24) mmol/L ABG O2 Saturation 98.4 H (90-95) % ABG Base Excess -2.3 (-9-1.8) mEq/L Dimitry Test Pos (Pos) Barometric Pressure 745.3 mm/Hg Oxygen Given 4.5L Sodium (136-145) mmol/L Potassium (3.5-5.1) mmol/L Chloride (98-107) mmol/L Carbon Dioxide (21-32) mmol/L Anion Gap (3-11) BUN (7-18) mg/dl Creatinine 1.42 H (0.6-1.4) mg/dl Est Cr Clr Drug Dosing 61.4 Est GFR ( Amer) 54.8 Est GFR (Non-Af Amer) 47.3 BUN/Creatinine Ratio (10-20) Glucose (70-99) mg/dl POC Glucose 179 H (70-99) Lactate (0.4-2.0) mmol/L Calcium (8.5-10.1) mg/dl Magnesium (1.8-2.4) mg/dl Total Bilirubin (0.2-1) mg/dl AST (15-37) U/L ALT (12-78) U/L Alkaline Phosphatase (45-117) U/L Ammonia (11-32) umol/L Troponin I (0-0.045) ng/ml Total Protein (6.4-8.2) gm/dl Albumin (3.4-5.0) gm/dl Globulin (2.5-4.0) gm/dl Albumin/Globulin Ratio (0.9-2) Procalcitonin (0-0.5) ng/ml TSH (0.300-4.500) uIu/ml Specimen Hemolysis Urine Color Urine Appearance (Clear) Urine pH (4.5-7.5) Ur Specific [place] (1.000-1.030) Urine Protein (Negative) Urine Glucose (UA) (Negative) Urine Ketones (Negative) Urine Blood (Negative) Urine Nitrite (Negative) Urine Bilirubin (Negative) Urine Urobilinogen (Negative) Ur Leukocyte Esterase (Negative) Urine WBC (Auto) (0-5) /hpf Urine RBC (Auto) (0-4) /hpf U Hyaline Cast (Auto) (0-5) /lpf U Epithel Cells (Auto) (0-5) /lpf Urine Bacteria (Auto) (Negative) CSF Appearance CSF Color Xanthrochromic CSF WBC (0-5) /uL CSF RBC (0-) /uL CSF Cell Count Tube # CSF Chemistry Tube # CSF Glucose (40-70) mg/dl CSF Total Protein (15-45) mg/dl Digoxin (0.8-2.0) ng/ml Urine Opiates Screen (Neg) U Codeine Confrm GC/MS (CUTOFF=50) NG/ML Ur Morphine (GC/MS) (CUTOFF=50) NG/ML Ur Hydrocodone (GC/MS) (CUTOFF=50) NG/ML Ur Norhydrocodone (CUTOFF=50) NG/ML Ur Noroxycodone (CUTOFF=50) NG/ML Urine Oxycodone (GC/MS) (CUTOFF=50) NG/ML U Oxymorphone GC/MS (CUTOFF=50) NG/ML Ur Methadone, Qual (Neg) Ur Hydromorphone (GC/MS) (CUTOFF=50) NG/ML Urine Barbiturates (Neg) Ur Phencyclidine (PCP) (Neg) U Amphetamin/Meth Scrn (Neg) MDMA (Ecstasy) Screen (Neg) U OH-Alprazolam Confrm (CUTOFF=25) NG/ML U Benzodiazepines Scrn (Neg) 7-Amino Clonazepam (CUTOFF=25) NG/ML Ur Nordiazepam Confirm (CUTOFF=50) NG/ML U OH-ethylflurazepam (CUTOFF=50) NG/ML U Lorazepam Cnf GC/MS (CUTOFF=50) NG/ML U Oxazepam Confm GC/MS (CUTOFF=50) NG/ML Ur Temazepam Confirm (CUTOFF=50) NG/ML U OH-Triazolam Confirm (CUTOFF=50) NG/ML U OH-Midazolam Confirm (CUTOFF=50) NG/ML Ur Cocaine Metabolite (Neg) U Marijuana (THC) Screen (Neg) Influenza Type A Ag (Neg) Influenza Type B Ag (Neg) 08/21/18 08/21/18 08/21/18 Range/Units 11:21 16:24 19:39 WBC (4.8-10.8) K/uL RBC (4.7-6.1) M/uL Hgb (14.0-18.0) g/dL Hct (42-52) % MCV (80-100) fL MCH (25-34) pg MCHC (32-36) g/dL RDW Std Deviation (36.4-46.3) fL RDW Coeff of Shadi (11.5-14.5) % Plt Count (130-400) K/uL MPV (7.4-10.4) fL Immature Gran % (Auto) % Neut % (Auto) % Lymph % (Auto) % [place] % (Auto) % Eos % (Auto) % Baso % (Auto) % Immature Gran # (Auto) (0.00-0.02) K/uL Neut # (Auto) (1.4-6.5) K/uL Lymph # (Auto) (1.2-3.4) K/uL [place] # (Auto) (0.11-0.59) K/uL Eos # (Auto) (0-0.5) K/uL Baso # (Auto) (0-0.2) K/uL APTT (21.0-31.0) Seconds PTT Ratio ABG pH (7.35-7.45) ABG pCO2 (35-46) mmHg ABG pO2 (80-95) mm/Hg ABG HCO3 (19-24) mmol/L ABG O2 Saturation (90-95) % ABG Base Excess (-9-1.8) mEq/L Dimitry Test (Pos) Barometric Pressure mm/Hg Oxygen Given Sodium 139 (136-145) mmol/L Potassium 4.3 (3.5-5.1) mmol/L Chloride 109 H (98-107) mmol/L Carbon Dioxide 25 (21-32) mmol/L Anion Gap 5.0 (3-11) BUN 23 H (7-18) mg/dl Creatinine 1.20 (0.6-1.4) mg/dl Est Cr Clr Drug Dosing 72.7 Est GFR ( Amer) 67.2 Est GFR (Non-Af Amer) 58.0 BUN/Creatinine Ratio 19.0 (10-20) Glucose 134 H (70-99) mg/dl POC Glucose 132 H 125 H (70-99) Lactate (0.4-2.0) mmol/L Calcium 7.6 L (8.5-10.1) mg/dl Magnesium (1.8-2.4) mg/dl Total Bilirubin (0.2-1) mg/dl AST (15-37) U/L ALT (12-78) U/L Alkaline Phosphatase (45-117) U/L Ammonia (11-32) umol/L Troponin I (0-0.045) ng/ml Total Protein (6.4-8.2) gm/dl Albumin (3.4-5.0) gm/dl Globulin (2.5-4.0) gm/dl Albumin/Globulin Ratio (0.9-2) Procalcitonin (0-0.5) ng/ml TSH (0.300-4.500) uIu/ml Specimen Hemolysis Urine Color Urine Appearance (Clear) Urine pH (4.5-7.5) Ur Specific [place] (1.000-1.030) Urine Protein (Negative) Urine Glucose (UA) (Negative) Urine Ketones (Negative) Urine Blood (Negative) Urine Nitrite (Negative) Urine Bilirubin (Negative) Urine Urobilinogen (Negative) Ur Leukocyte Esterase (Negative) Urine WBC (Auto) (0-5) /hpf Urine RBC (Auto) (0-4) /hpf U Hyaline Cast (Auto) (0-5) /lpf U Epithel Cells (Auto) (0-5) /lpf Urine Bacteria (Auto) (Negative) CSF Appearance CSF Color Xanthrochromic CSF WBC (0-5) /uL CSF RBC (0-) /uL CSF Cell Count Tube # CSF Chemistry Tube # CSF Glucose (40-70) mg/dl CSF Total Protein (15-45) mg/dl Digoxin (0.8-2.0) ng/ml Urine Opiates Screen (Neg) U Codeine Confrm GC/MS (CUTOFF=50) NG/ML Ur Morphine (GC/MS) (CUTOFF=50) NG/ML Ur Hydrocodone (GC/MS) (CUTOFF=50) NG/ML Ur Norhydrocodone (CUTOFF=50) NG/ML Ur Noroxycodone (CUTOFF=50) NG/ML Urine Oxycodone (GC/MS) (CUTOFF=50) NG/ML U Oxymorphone GC/MS (CUTOFF=50) NG/ML Ur Methadone, Qual (Neg) Ur Hydromorphone (GC/MS) (CUTOFF=50) NG/ML Urine Barbiturates (Neg) Ur Phencyclidine (PCP) (Neg) U Amphetamin/Meth Scrn (Neg) MDMA (Ecstasy) Screen (Neg) U OH-Alprazolam Confrm (CUTOFF=25) NG/ML U Benzodiazepines Scrn (Neg) 7-Amino Clonazepam (CUTOFF=25) NG/ML Ur Nordiazepam Confirm (CUTOFF=50) NG/ML U OH-ethylflurazepam (CUTOFF=50) NG/ML U Lorazepam Cnf GC/MS (CUTOFF=50) NG/ML U Oxazepam Confm GC/MS (CUTOFF=50) NG/ML Ur Temazepam Confirm (CUTOFF=50) NG/ML U OH-Triazolam Confirm (CUTOFF=50) NG/ML U OH-Midazolam Confirm (CUTOFF=50) NG/ML Ur Cocaine Metabolite (Neg) U Marijuana (THC) Screen (Neg) Influenza Type A Ag (Neg) Influenza Type B Ag (Neg) 08/21/18 08/21/18 08/22/18 Range/Units 19:39 20:03 06:31 WBC 9.00 (4.8-10.8) K/uL RBC 4.10 L (4.7-6.1) M/uL Hgb 11.8 L (14.0-18.0) g/dL Hct 38.9 L (42-52) % MCV 94.9 (80-100) fL MCH 28.8 (25-34) pg MCHC 30.3 L (32-36) g/dL RDW Std Deviation 54.3 H (36.4-46.3) fL RDW Coeff of Shadi 15.7 H (11.5-14.5) % Plt Count 240 (130-400) K/uL MPV 9.7 (7.4-10.4) fL Immature Gran % (Auto) 0.2 % Neut % (Auto) 75.2 % Lymph % (Auto) 9.4 % [place] % (Auto) 5.6 % Eos % (Auto) 9.2 % Baso % (Auto) 0.4 % Immature Gran # (Auto) 0.02 (0.00-0.02) K/uL Neut # (Auto) 6.76 H (1.4-6.5) K/uL Lymph # (Auto) 0.85 L (1.2-3.4) K/uL [place] # (Auto) 0.50 (0.11-0.59) K/uL Eos # (Auto) 0.83 H (0-0.5) K/uL Baso # (Auto) 0.04 (0-0.2) K/uL APTT (21.0-31.0) Seconds PTT Ratio ABG pH (7.35-7.45) ABG pCO2 (35-46) mmHg ABG pO2 (80-95) mm/Hg ABG HCO3 (19-24) mmol/L ABG O2 Saturation (90-95) % ABG Base Excess (-9-1.8) mEq/L Dimitry Test (Pos) Barometric Pressure mm/Hg Oxygen Given Sodium (136-145) mmol/L Potassium (3.5-5.1) mmol/L Chloride (98-107) mmol/L Carbon Dioxide (21-32) mmol/L Anion Gap (3-11) BUN (7-18) mg/dl Creatinine (0.6-1.4) mg/dl Est Cr Clr Drug Dosing Est GFR ( Amer) Est GFR (Non-Af Amer) BUN/Creatinine Ratio (10-20) Glucose (70-99) mg/dl POC Glucose 123 H (70-99) Lactate 2.1 H* (0.4-2.0) mmol/L Calcium (8.5-10.1) mg/dl Magnesium (1.8-2.4) mg/dl Total Bilirubin (0.2-1) mg/dl AST (15-37) U/L ALT (12-78) U/L Alkaline Phosphatase (45-117) U/L Ammonia (11-32) umol/L Troponin I (0-0.045) ng/ml Total Protein (6.4-8.2) gm/dl Albumin (3.4-5.0) gm/dl Globulin (2.5-4.0) gm/dl Albumin/Globulin Ratio (0.9-2) Procalcitonin (0-0.5) ng/ml TSH (0.300-4.500) uIu/ml Specimen Hemolysis Urine Color Urine Appearance (Clear) Urine pH (4.5-7.5) Ur Specific [place] (1.000-1.030) Urine Protein (Negative) Urine Glucose (UA) (Negative) Urine Ketones (Negative) Urine Blood (Negative) Urine Nitrite (Negative) Urine Bilirubin (Negative) Urine Urobilinogen (Negative) Ur Leukocyte Esterase (Negative) Urine WBC (Auto) (0-5) /hpf Urine RBC (Auto) (0-4) /hpf U Hyaline Cast (Auto) (0-5) /lpf U Epithel Cells (Auto) (0-5) /lpf Urine Bacteria (Auto) (Negative) CSF Appearance CSF Color Xanthrochromic CSF WBC (0-5) /uL CSF RBC (0-) /uL CSF Cell Count Tube # CSF Chemistry Tube # CSF Glucose (40-70) mg/dl CSF Total Protein (15-45) mg/dl Digoxin (0.8-2.0) ng/ml Urine Opiates Screen (Neg) U Codeine Confrm GC/MS (CUTOFF=50) NG/ML Ur Morphine (GC/MS) (CUTOFF=50) NG/ML Ur Hydrocodone (GC/MS) (CUTOFF=50) NG/ML Ur Norhydrocodone (CUTOFF=50) NG/ML Ur Noroxycodone (CUTOFF=50) NG/ML Urine Oxycodone (GC/MS) (CUTOFF=50) NG/ML U Oxymorphone GC/MS (CUTOFF=50) NG/ML Ur Methadone, Qual (Neg) Ur Hydromorphone (GC/MS) (CUTOFF=50) NG/ML Urine Barbiturates (Neg) Ur Phencyclidine (PCP) (Neg) U Amphetamin/Meth Scrn (Neg) MDMA (Ecstasy) Screen (Neg) U OH-Alprazolam Confrm (CUTOFF=25) NG/ML U Benzodiazepines Scrn (Neg) 7-Amino Clonazepam (CUTOFF=25) NG/ML Ur Nordiazepam Confirm (CUTOFF=50) NG/ML U OH-ethylflurazepam (CUTOFF=50) NG/ML U Lorazepam Cnf GC/MS (CUTOFF=50) NG/ML U Oxazepam Confm GC/MS (CUTOFF=50) NG/ML Ur Temazepam Confirm (CUTOFF=50) NG/ML U OH-Triazolam Confirm (CUTOFF=50) NG/ML U OH-Midazolam Confirm (CUTOFF=50) NG/ML Ur Cocaine Metabolite (Neg) U Marijuana (THC) Screen (Neg) Influenza Type A Ag (Neg) Influenza Type B Ag (Neg) 08/22/18 08/22/18 08/22/18 Range/Units 06:31 06:31 06:31 WBC (4.8-10.8) K/uL RBC (4.7-6.1) M/uL Hgb (14.0-18.0) g/dL Hct (42-52) % MCV (80-100) fL MCH (25-34) pg MCHC (32-36) g/dL RDW Std Deviation (36.4-46.3) fL RDW Coeff of Shadi (11.5-14.5) % Plt Count (130-400) K/uL MPV (7.4-10.4) fL Immature Gran % (Auto) % Neut % (Auto) % Lymph % (Auto) % [place] % (Auto) % Eos % (Auto) % Baso % (Auto) % Immature Gran # (Auto) (0.00-0.02) K/uL Neut # (Auto) (1.4-6.5) K/uL Lymph # (Auto) (1.2-3.4) K/uL [place] # (Auto) (0.11-0.59) K/uL Eos # (Auto) (0-0.5) K/uL Baso # (Auto) (0-0.2) K/uL APTT (21.0-31.0) Seconds PTT Ratio ABG pH (7.35-7.45) ABG pCO2 (35-46) mmHg ABG pO2 (80-95) mm/Hg ABG HCO3 (19-24) mmol/L ABG O2 Saturation (90-95) % ABG Base Excess (-9-1.8) mEq/L Dimitry Test (Pos) Barometric Pressure mm/Hg Oxygen Given Sodium 140 (136-145) mmol/L Potassium 4.5 (3.5-5.1) mmol/L Chloride 109 H (98-107) mmol/L Carbon Dioxide 25 (21-32) mmol/L Anion Gap 6.0 (3-11) BUN 22 H (7-18) mg/dl Creatinine 1.13 (0.6-1.4) mg/dl Est Cr Clr Drug Dosing 77.2 Est GFR ( Amer) 72.3 Est GFR (Non-Af Amer) 62.4 BUN/Creatinine Ratio 19.6 (10-20) Glucose 123 H (70-99) mg/dl POC Glucose (70-99) Lactate 1.1 (0.4-2.0) mmol/L Calcium 7.8 L (8.5-10.1) mg/dl Magnesium (1.8-2.4) mg/dl Total Bilirubin (0.2-1) mg/dl AST (15-37) U/L ALT (12-78) U/L Alkaline Phosphatase (45-117) U/L Ammonia (11-32) umol/L Troponin I (0-0.045) ng/ml Total Protein (6.4-8.2) gm/dl Albumin (3.4-5.0) gm/dl Globulin (2.5-4.0) gm/dl Albumin/Globulin Ratio (0.9-2) Procalcitonin 0.74 H (0-0.5) ng/ml TSH (0.300-4.500) uIu/ml Specimen Hemolysis Urine Color Urine Appearance (Clear) Urine pH (4.5-7.5) Ur Specific [place] (1.000-1.030) Urine Protein (Negative) Urine Glucose (UA) (Negative) Urine Ketones (Negative) Urine Blood (Negative) Urine Nitrite (Negative) Urine Bilirubin (Negative) Urine Urobilinogen (Negative) Ur Leukocyte Esterase (Negative) Urine WBC (Auto) (0-5) /hpf Urine RBC (Auto) (0-4) /hpf U Hyaline Cast (Auto) (0-5) /lpf U Epithel Cells (Auto) (0-5) /lpf Urine Bacteria (Auto) (Negative) CSF Appearance CSF Color Xanthrochromic CSF WBC (0-5) /uL CSF RBC (0-) /uL CSF Cell Count Tube # CSF Chemistry Tube # CSF Glucose (40-70) mg/dl CSF Total Protein (15-45) mg/dl Digoxin (0.8-2.0) ng/ml Urine Opiates Screen (Neg) U Codeine Confrm GC/MS (CUTOFF=50) NG/ML Ur Morphine (GC/MS) (CUTOFF=50) NG/ML Ur Hydrocodone (GC/MS) (CUTOFF=50) NG/ML Ur Norhydrocodone (CUTOFF=50) NG/ML Ur Noroxycodone (CUTOFF=50) NG/ML Urine Oxycodone (GC/MS) (CUTOFF=50) NG/ML U Oxymorphone GC/MS (CUTOFF=50) NG/ML Ur Methadone, Qual (Neg) Ur Hydromorphone (GC/MS) (CUTOFF=50) NG/ML Urine Barbiturates (Neg) Ur Phencyclidine (PCP) (Neg) U Amphetamin/Meth Scrn (Neg) MDMA (Ecstasy) Screen (Neg) U OH-Alprazolam Confrm (CUTOFF=25) NG/ML U Benzodiazepines Scrn (Neg) 7-Amino Clonazepam (CUTOFF=25) NG/ML Ur Nordiazepam Confirm (CUTOFF=50) NG/ML U OH-ethylflurazepam (CUTOFF=50) NG/ML U Lorazepam Cnf GC/MS (CUTOFF=50) NG/ML U Oxazepam Confm GC/MS (CUTOFF=50) NG/ML Ur Temazepam Confirm (CUTOFF=50) NG/ML U OH-Triazolam Confirm (CUTOFF=50) NG/ML U OH-Midazolam Confirm (CUTOFF=50) NG/ML Ur Cocaine Metabolite (Neg) U Marijuana (THC) Screen (Neg) Influenza Type A Ag (Neg) Influenza Type B Ag (Neg) 08/22/18 08/22/18 08/22/18 Range/Units 07:01 11:33 16:24 WBC (4.8-10.8) K/uL RBC (4.7-6.1) M/uL Hgb (14.0-18.0) g/dL Hct (42-52) % MCV (80-100) fL MCH (25-34) pg MCHC (32-36) g/dL RDW Std Deviation (36.4-46.3) fL RDW Coeff of Shadi (11.5-14.5) % Plt Count (130-400) K/uL MPV (7.4-10.4) fL Immature Gran % (Auto) % Neut % (Auto) % Lymph % (Auto) % [place] % (Auto) % Eos % (Auto) % Baso % (Auto) % Immature Gran # (Auto) (0.00-0.02) K/uL Neut # (Auto) (1.4-6.5) K/uL Lymph # (Auto) (1.2-3.4) K/uL [place] # (Auto) (0.11-0.59) K/uL Eos # (Auto) (0-0.5) K/uL Baso # (Auto) (0-0.2) K/uL APTT (21.0-31.0) Seconds PTT Ratio ABG pH (7.35-7.45) ABG pCO2 (35-46) mmHg ABG pO2 (80-95) mm/Hg ABG HCO3 (19-24) mmol/L ABG O2 Saturation (90-95) % ABG Base Excess (-9-1.8) mEq/L Dimitry Test (Pos) Barometric Pressure mm/Hg Oxygen Given Sodium (136-145) mmol/L Potassium (3.5-5.1) mmol/L Chloride (98-107) mmol/L Carbon Dioxide (21-32) mmol/L Anion Gap (3-11) BUN (7-18) mg/dl Creatinine (0.6-1.4) mg/dl Est Cr Clr Drug Dosing Est GFR ( Amer) Est GFR (Non-Af Amer) BUN/Creatinine Ratio (10-20) Glucose (70-99) mg/dl POC Glucose 111 H 129 H 142 H (70-99) Lactate (0.4-2.0) mmol/L Calcium (8.5-10.1) mg/dl Magnesium (1.8-2.4) mg/dl Total Bilirubin (0.2-1) mg/dl AST (15-37) U/L ALT (12-78) U/L Alkaline Phosphatase (45-117) U/L Ammonia (11-32) umol/L Troponin I (0-0.045) ng/ml Total Protein (6.4-8.2) gm/dl Albumin (3.4-5.0) gm/dl Globulin (2.5-4.0) gm/dl Albumin/Globulin Ratio (0.9-2) Procalcitonin (0-0.5) ng/ml TSH (0.300-4.500) uIu/ml Specimen Hemolysis Urine Color Urine Appearance (Clear) Urine pH (4.5-7.5) Ur Specific [place] (1.000-1.030) Urine Protein (Negative) Urine Glucose (UA) (Negative) Urine Ketones (Negative) Urine Blood (Negative) Urine Nitrite (Negative) Urine Bilirubin (Negative) Urine Urobilinogen (Negative) Ur Leukocyte Esterase (Negative) Urine WBC (Auto) (0-5) /hpf Urine RBC (Auto) (0-4) /hpf U Hyaline Cast (Auto) (0-5) /lpf U Epithel Cells (Auto) (0-5) /lpf Urine Bacteria (Auto) (Negative) CSF Appearance CSF Color Xanthrochromic CSF WBC (0-5) /uL CSF RBC (0-) /uL CSF Cell Count Tube # CSF Chemistry Tube # CSF Glucose (40-70) mg/dl CSF Total Protein (15-45) mg/dl Digoxin (0.8-2.0) ng/ml Urine Opiates Screen (Neg) U Codeine Confrm GC/MS (CUTOFF=50) NG/ML Ur Morphine (GC/MS) (CUTOFF=50) NG/ML Ur Hydrocodone (GC/MS) (CUTOFF=50) NG/ML Ur Norhydrocodone (CUTOFF=50) NG/ML Ur Noroxycodone (CUTOFF=50) NG/ML Urine Oxycodone (GC/MS) (CUTOFF=50) NG/ML U Oxymorphone GC/MS (CUTOFF=50) NG/ML Ur Methadone, Qual (Neg) Ur Hydromorphone (GC/MS) (CUTOFF=50) NG/ML Urine Barbiturates (Neg) Ur Phencyclidine (PCP) (Neg) U Amphetamin/Meth Scrn (Neg) MDMA (Ecstasy) Screen (Neg) U OH-Alprazolam Confrm (CUTOFF=25) NG/ML U Benzodiazepines Scrn (Neg) 7-Amino Clonazepam (CUTOFF=25) NG/ML Ur Nordiazepam Confirm (CUTOFF=50) NG/ML U OH-ethylflurazepam (CUTOFF=50) NG/ML U Lorazepam Cnf GC/MS (CUTOFF=50) NG/ML U Oxazepam Confm GC/MS (CUTOFF=50) NG/ML Ur Temazepam Confirm (CUTOFF=50) NG/ML U OH-Triazolam Confirm (CUTOFF=50) NG/ML U OH-Midazolam Confirm (CUTOFF=50) NG/ML Ur Cocaine Metabolite (Neg) U Marijuana (THC) Screen (Neg) Influenza Type A Ag (Neg) Influenza Type B Ag (Neg) 08/22/18 08/23/18 08/23/18 Range/Units 20:51 06:16 06:16 WBC 10.02 (4.8-10.8) K/uL RBC 4.77 (4.7-6.1) M/uL Hgb 14.3 (14.0-18.0) g/dL Hct 44.4 (42-52) % MCV 93.1 (80-100) fL MCH 30.0 (25-34) pg MCHC 32.2 (32-36) g/dL RDW Std Deviation 53.0 H (36.4-46.3) fL RDW Coeff of Shadi 15.6 H (11.5-14.5) % Plt Count 268 (130-400) K/uL MPV 10.2 (7.4-10.4) fL Immature Gran % (Auto) % Neut % (Auto) % Lymph % (Auto) % [place] % (Auto) % Eos % (Auto) % Baso % (Auto) % Immature Gran # (Auto) (0.00-0.02) K/uL Neut # (Auto) (1.4-6.5) K/uL Lymph # (Auto) (1.2-3.4) K/uL [place] # (Auto) (0.11-0.59) K/uL Eos # (Auto) (0-0.5) K/uL Baso # (Auto) (0-0.2) K/uL APTT (21.0-31.0) Seconds PTT Ratio ABG pH (7.35-7.45) ABG pCO2 (35-46) mmHg ABG pO2 (80-95) mm/Hg ABG HCO3 (19-24) mmol/L ABG O2 Saturation (90-95) % ABG Base Excess (-9-1.8) mEq/L Dimitry Test (Pos) Barometric Pressure mm/Hg Oxygen Given Sodium 136 (136-145) mmol/L Potassium 4.1 (3.5-5.1) mmol/L Chloride 107 (98-107) mmol/L Carbon Dioxide 23 (21-32) mmol/L Anion Gap 6.0 (3-11) BUN 21 H (7-18) mg/dl Creatinine 1.10 (0.6-1.4) mg/dl Est Cr Clr Drug Dosing 77.3 Est GFR ( Amer) 74.7 Est GFR (Non-Af Amer) 64.4 BUN/Creatinine Ratio 19.4 (10-20) Glucose 123 H (70-99) mg/dl POC Glucose 156 H (70-99) Lactate (0.4-2.0) mmol/L Calcium 8.5 (8.5-10.1) mg/dl Magnesium (1.8-2.4) mg/dl Total Bilirubin (0.2-1) mg/dl AST (15-37) U/L ALT (12-78) U/L Alkaline Phosphatase (45-117) U/L Ammonia (11-32) umol/L Troponin I (0-0.045) ng/ml Total Protein (6.4-8.2) gm/dl Albumin (3.4-5.0) gm/dl Globulin (2.5-4.0) gm/dl Albumin/Globulin Ratio (0.9-2) Procalcitonin (0-0.5) ng/ml TSH (0.300-4.500) uIu/ml Specimen Hemolysis Urine Color Urine Appearance (Clear) Urine pH (4.5-7.5) Ur Specific [place] (1.000-1.030) Urine Protein (Negative) Urine Glucose (UA) (Negative) Urine Ketones (Negative) Urine Blood (Negative) Urine Nitrite (Negative) Urine Bilirubin (Negative) Urine Urobilinogen (Negative) Ur Leukocyte Esterase (Negative) Urine WBC (Auto) (0-5) /hpf Urine RBC (Auto) (0-4) /hpf U Hyaline Cast (Auto) (0-5) /lpf U Epithel Cells (Auto) (0-5) /lpf Urine Bacteria (Auto) (Negative) CSF Appearance CSF Color Xanthrochromic CSF WBC (0-5) /uL CSF RBC (0-) /uL CSF Cell Count Tube # CSF Chemistry Tube # CSF Glucose (40-70) mg/dl CSF Total Protein (15-45) mg/dl Digoxin (0.8-2.0) ng/ml Urine Opiates Screen (Neg) U Codeine Confrm GC/MS (CUTOFF=50) NG/ML Ur Morphine (GC/MS) (CUTOFF=50) NG/ML Ur Hydrocodone (GC/MS) (CUTOFF=50) NG/ML Ur Norhydrocodone (CUTOFF=50) NG/ML Ur Noroxycodone (CUTOFF=50) NG/ML Urine Oxycodone (GC/MS) (CUTOFF=50) NG/ML U Oxymorphone GC/MS (CUTOFF=50) NG/ML Ur Methadone, Qual (Neg) Ur Hydromorphone (GC/MS) (CUTOFF=50) NG/ML Urine Barbiturates (Neg) Ur Phencyclidine (PCP) (Neg) U Amphetamin/Meth Scrn (Neg) MDMA (Ecstasy) Screen (Neg) U [place]-Alprazolam Confrm (CUTOFF=25) NG/ML U Benzodiazepines Scrn (Neg) 7-Amino Clonazepam (CUTOFF=25) NG/ML Ur Nordiazepam Confirm (CUTOFF=50) NG/ML U OH-ethylflurazepam (CUTOFF=50) NG/ML U Lorazepam Cnf GC/MS (CUTOFF=50) NG/ML U Oxazepam Confm GC/MS (CUTOFF=50) NG/ML Ur Temazepam Confirm (CUTOFF=50) NG/ML U OH-Triazolam Confirm (CUTOFF=50) NG/ML U OH-Midazolam Confirm (CUTOFF=50) NG/ML Ur Cocaine Metabolite (Neg) U Marijuana (THC) Screen (Neg) Influenza Type A Ag (Neg) Influenza Type B Ag (Neg) 08/23/18 08/23/18 08/23/18 Range/Units 07:19 11:29 16:14 WBC (4.8-10.8) K/uL RBC (4.7-6.1) M/uL Hgb (14.0-18.0) g/dL Hct (42-52) % MCV (80-100) fL MCH (25-34) pg MCHC (32-36) g/dL RDW Std Deviation (36.4-46.3) fL RDW Coeff of Shadi (11.5-14.5) % Plt Count (130-400) K/uL MPV (7.4-10.4) fL Immature Gran % (Auto) % Neut % (Auto) % Lymph % (Auto) % [place] % (Auto) % Eos % (Auto) % Baso % (Auto) % Immature Gran # (Auto) (0.00-0.02) K/uL Neut # (Auto) (1.4-6.5) K/uL Lymph # (Auto) (1.2-3.4) K/uL [place] # (Auto) (0.11-0.59) K/uL Eos # (Auto) (0-0.5) K/uL Baso # (Auto) (0-0.2) K/uL APTT (21.0-31.0) Seconds PTT Ratio ABG pH (7.35-7.45) ABG pCO2 (35-46) mmHg ABG pO2 (80-95) mm/Hg ABG HCO3 (19-24) mmol/L ABG O2 Saturation (90-95) % ABG Base Excess (-9-1.8) mEq/L Dimitry Test (Pos) Barometric Pressure mm/Hg Oxygen Given Sodium (136-145) mmol/L Potassium (3.5-5.1) mmol/L Chloride (98-107) mmol/L Carbon Dioxide (21-32) mmol/L Anion Gap (3-11) BUN (7-18) mg/dl Creatinine (0.6-1.4) mg/dl Est Cr Clr Drug Dosing Est GFR ( Amer) Est GFR (Non-Af Amer) BUN/Creatinine Ratio (10-20) Glucose (70-99) mg/dl POC Glucose 161 H 157 H 134 H (70-99) Lactate (0.4-2.0) mmol/L Calcium (8.5-10.1) mg/dl Magnesium (1.8-2.4) mg/dl Total Bilirubin (0.2-1) mg/dl AST (15-37) U/L ALT (12-78) U/L Alkaline Phosphatase (45-117) U/L Ammonia (11-32) umol/L Troponin I (0-0.045) ng/ml Total Protein (6.4-8.2) gm/dl Albumin (3.4-5.0) gm/dl Globulin (2.5-4.0) gm/dl Albumin/Globulin Ratio (0.9-2) Procalcitonin (0-0.5) ng/ml TSH (0.300-4.500) uIu/ml Specimen Hemolysis Urine Color Urine Appearance (Clear) Urine pH (4.5-7.5) Ur Specific [place] (1.000-1.030) Urine Protein (Negative) Urine Glucose (UA) (Negative) Urine Ketones (Negative) Urine Blood (Negative) Urine Nitrite (Negative) Urine Bilirubin (Negative) Urine Urobilinogen (Negative) Ur Leukocyte Esterase (Negative) Urine WBC (Auto) (0-5) /hpf Urine RBC (Auto) (0-4) /hpf U Hyaline Cast (Auto) (0-5) /lpf U Epithel Cells (Auto) (0-5) /lpf Urine Bacteria (Auto) (Negative) CSF Appearance CSF Color Xanthrochromic CSF WBC (0-5) /uL CSF RBC (0-) /uL CSF Cell Count Tube # CSF Chemistry Tube # CSF Glucose (40-70) mg/dl CSF Total Protein (15-45) mg/dl Digoxin (0.8-2.0) ng/ml Urine Opiates Screen (Neg) U Codeine Confrm GC/MS (CUTOFF=50) NG/ML Ur Morphine (GC/MS) (CUTOFF=50) NG/ML Ur Hydrocodone (GC/MS) (CUTOFF=50) NG/ML Ur Norhydrocodone (CUTOFF=50) NG/ML Ur Noroxycodone (CUTOFF=50) NG/ML Urine Oxycodone (GC/MS) (CUTOFF=50) NG/ML U Oxymorphone GC/MS (CUTOFF=50) NG/ML Ur Methadone, Qual (Neg) Ur Hydromorphone (GC/MS) (CUTOFF=50) NG/ML Urine Barbiturates (Neg) Ur Phencyclidine (PCP) (Neg) U Amphetamin/Meth Scrn (Neg) MDMA (Ecstasy) Screen (Neg) U OH-Alprazolam Confrm (CUTOFF=25) NG/ML U Benzodiazepines Scrn (Neg) 7-Amino Clonazepam (CUTOFF=25) NG/ML Ur Nordiazepam Confirm (CUTOFF=50) NG/ML U OH-ethylflurazepam (CUTOFF=50) NG/ML U Lorazepam Cnf GC/MS (CUTOFF=50) NG/ML U Oxazepam Confm GC/MS (CUTOFF=50) NG/ML Ur Temazepam Confirm (CUTOFF=50) NG/ML U OH-Triazolam Confirm (CUTOFF=50) NG/ML U OH-Midazolam Confirm (CUTOFF=50) NG/ML Ur Cocaine Metabolite (Neg) U Marijuana (THC) Screen (Neg) Influenza Type A Ag (Neg) Influenza Type B Ag (Neg) 08/23/18 08/23/18 Range/Units 20:09 Unknown WBC (4.8-10.8) K/uL RBC (4.7-6.1) M/uL Hgb (14.0-18.0) g/dL Hct (42-52) % MCV (80-100) fL MCH (25-34) pg MCHC (32-36) g/dL RDW Std Deviation (36.4-46.3) fL RDW Coeff of Shadi (11.5-14.5) % Plt Count (130-400) K/uL MPV (7.4-10.4) fL Immature Gran % (Auto) % Neut % (Auto) % Lymph % (Auto) % [place] % (Auto) % Eos % (Auto) % Baso % (Auto) % Immature Gran # (Auto) (0.00-0.02) K/uL Neut # (Auto) (1.4-6.5) K/uL Lymph # (Auto) (1.2-3.4) K/uL [place] # (Auto) (0.11-0.59) K/uL Eos # (Auto) (0-0.5) K/uL Baso # (Auto) (0-0.2) K/uL APTT (21.0-31.0) Seconds PTT Ratio ABG pH (7.35-7.45) ABG pCO2 (35-46) mmHg ABG pO2 (80-95) mm/Hg ABG HCO3 (19-24) mmol/L ABG O2 Saturation (90-95) % ABG Base Excess (-9-1.8) mEq/L Dimitry Test (Pos) Barometric Pressure mm/Hg Oxygen Given Sodium (136-145) mmol/L Potassium (3.5-5.1) mmol/L Chloride (98-107) mmol/L Carbon Dioxide (21-32) mmol/L Anion Gap (3-11) BUN (7-18) mg/dl Creatinine (0.6-1.4) mg/dl Est Cr Clr Drug Dosing Est GFR ( Amer) Est GFR (Non-Af Amer) BUN/Creatinine Ratio (10-20) Glucose (70-99) mg/dl POC Glucose 137 H (70-99) Lactate (0.4-2.0) mmol/L Calcium (8.5-10.1) mg/dl Magnesium (1.8-2.4) mg/dl Total Bilirubin (0.2-1) mg/dl AST (15-37) U/L ALT (12-78) U/L Alkaline Phosphatase (45-117) U/L Ammonia (11-32) umol/L Troponin I (0-0.045) ng/ml Total Protein (6.4-8.2) gm/dl Albumin (3.4-5.0) gm/dl Globulin (2.5-4.0) gm/dl Albumin/Globulin Ratio (0.9-2) Procalcitonin (0-0.5) ng/ml TSH (0.300-4.500) uIu/ml Specimen Hemolysis Urine Color Urine Appearance (Clear) Urine pH (4.5-7.5) Ur Specific [place] (1.000-1.030) Urine Protein (Negative) Urine Glucose (UA) (Negative) Urine Ketones (Negative) Urine Blood (Negative) Urine Nitrite (Negative) Urine Bilirubin (Negative) Urine Urobilinogen (Negative) Ur Leukocyte Esterase (Negative) Urine WBC (Auto) (0-5) /hpf Urine RBC (Auto) (0-4) /hpf U Hyaline Cast (Auto) (0-5) /lpf U Epithel Cells (Auto) (0-5) /lpf Urine Bacteria (Auto) (Negative) CSF Appearance Clear CSF Color Colorless Xanthrochromic No xanthochromia CSF WBC 0 (0-5) /uL CSF RBC 0 (0-) /uL CSF Cell Count Tube # 4 CSF Chemistry Tube # 3 CSF Glucose 77 H (40-70) mg/dl CSF Total Protein 66.7 H (15-45) mg/dl Digoxin (0.8-2.0) ng/ml Urine Opiates Screen (Neg) U Codeine Confrm GC/MS (CUTOFF=50) NG/ML Ur Morphine (GC/MS) (CUTOFF=50) NG/ML Ur Hydrocodone (GC/MS) (CUTOFF=50) NG/ML Ur Norhydrocodone (CUTOFF=50) NG/ML Ur Noroxycodone (CUTOFF=50) NG/ML Urine Oxycodone (GC/MS) (CUTOFF=50) NG/ML U Oxymorphone GC/MS (CUTOFF=50) NG/ML Ur Methadone, Qual (Neg) Ur Hydromorphone (GC/MS) (CUTOFF=50) NG/ML Urine Barbiturates (Neg) Ur Phencyclidine (PCP) (Neg) U Amphetamin/Meth Scrn (Neg) MDMA (Ecstasy) Screen (Neg) U OH-Alprazolam Confrm (CUTOFF=25) NG/ML U Benzodiazepines Scrn (Neg) 7-Amino Clonazepam (CUTOFF=25) NG/ML Ur Nordiazepam Confirm (CUTOFF=50) NG/ML U OH-ethylflurazepam (CUTOFF=50) NG/ML U Lorazepam Cnf GC/MS (CUTOFF=50) NG/ML U Oxazepam Confm GC/MS (CUTOFF=50) NG/ML Ur Temazepam Confirm (CUTOFF=50) NG/ML U OH-Triazolam Confirm (CUTOFF=50) NG/ML U OH-Midazolam Confirm (CUTOFF=50) NG/ML Ur Cocaine Metabolite (Neg) U Marijuana (THC) Screen (Neg) Influenza Type A Ag (Neg) Influenza Type B Ag (Neg) Imaging Data Attestation: I personally reviewed and interpreted this imaging study as follows : My Impression: Chest x-ray shows pulmonary vascular congestion, normal mediastinal silhouette, no pneumothorax, and no consolidation. Radiologist's Impression: Radiology results as stated below per my review and the radiologist's interpretation: CT HEAD: No acute intracranial hemorrhage, mass effect, midline shift, hydrocephalus or infarct. Generalized atrophy. Low-density in the bilateral perventricular white matter probably represents chronic small vessel ischemic disease. Bony structures are intact. Soft tissues are unremarkable. Bilateral maxillary sinusitis. Radiologist: Raymond Simental MD ECG Data Attestation: I personally reviewed and interpreted this ECG as follows: Indication: altered mental status Rate (beats per minute): 125 Rhythm: atrial fibrillation (with RVR) Findings: + other (Nonspecific ST changes, QTc = 482) and + left axis deviation Blood Pressure Blood Pressure Findings: Elevated blood pressure Blood Pressure Disposition: further management by hospitalist [facility] Narrative This patient was evaluated and appeared to be in no significant distress. IV access was obtained and laboratory work was drawn. 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 Initially his mental status seemed to be quite depressed. He was responsive to verbal stimuli but did not speak much. He did receive Versed prior to arrival. Patient was given IV metoprolol for his rapid atrial fibrillation. Gentle IV hydration was initiated. CT scan of the head was performed and is negative for acute intracranial pathology. Laboratory work reveals a marked leukocytosis, elevated lactate and elevated troponin at 0.2. The seizure-like activity is of unclear etiology. UA is indicative of infection. Patient was medicated with IV vancomycin and Zosyn. Family was informed of the findings. Patient's mental status did seem to be improving fairly tremendously during his stay in the ER. Vital signs did stabilize. Patient will be admitted by the [facility] service for further management. Impression & Plan Sepsis, UTI (urinary tract infection), New onset seizure, Atrial fibrillation, rapid Discharge Plan Visit Data *Final* Discharge Date/Time: 08/21/18 06:06 Chief Complaint: Unresponsive ED Provider: Nuha Justice Discharge Problem: Sepsis, UTI (urinary tract infection), New onset seizure, Atrial fibrillation, rapid Patient Disposition: Admitted As Inpatient Discharge Instructions Interventions: ED Discharge Assessment Last Done: 08/21/18 06:06 The scribe's documentation has been prepared under my direction and personally reviewed by me in its entirety. I confirm that the note above accurately reflects all work, treatment, procedures, and medical decision making performed by me.
[2018-08-21] MEDS ORDERED: DEXTROSE 50% 50 ML SYRINGE IV PRN (07:04)
[2018-08-21] MEDS ORDERED: XOPENEX/ATROVENT 1.25mg/0.5MG NEB COMBO NEB PRN (07:04)
[2018-08-21] MEDS ORDERED: LEVALBUTEROL 1.25MG/0.5ML NEB INH PRN (07:04)
[2018-08-21] MEDS ORDERED: IPRATROPIUM BROMIDE NEB SOLN 0.02% 2.5 ML VIAL INH PRN (07:04)
[2018-08-21] MEDS ORDERED: LORazepam 1 MG/2 ML VIAL IV PRN (07:04)
[2018-08-21] MEDS ORDERED: GLUCOSE 40% GEL 15 GM TUBE PO PRN (07:04)
[2018-08-21] MEDS ORDERED: GLUCAGON FOR INJ 1 MG VIAL SQ PRN (07:04)
[2018-08-21] MEDS ORDERED: CARBOHYDRATES FOR HYPOGLYCEMIA PO PRN (07:04)
[2018-08-21] MEDS ORDERED: GLUCOSE 10 TABS/TUBE PO PRN (07:04)
[2018-08-21] MEDS ORDERED: PROCHLORPERAZINE 5 MG in SYRINGE 4 ML IV PRN (07:04)
[2018-08-21] MEDS ORDERED: HYDROmorphone INJ 0.5 MG/0.5 ML SYR IV PRN (07:04)
--- NOTE | 2018-08-21 07:21 | CT Scan Report ---
CT chest wo con CLINICAL HISTORY: Hypoxia, cough. COMPARISON STUDY: Chest x-ray dated 08/21/2018 CT DOSE: 1193.72 mGy.cm TECHNIQUE: CT of the thorax was performed from the thoracic inlet to the lung bases. Images are revi ewed in the axial, sagittal, and coronal planes. IV contrast was not administered for this examinatio n. A dose lowering technique was utilized adhering to the principles of ALARA. FINDINGS: Thyroid: Imaged portions of the thyroid gland are normal in appearance. Thoracic aorta: The thoracic aorta is normal in course and caliber, noting standard 3 vessel arch enma zack. Heart: The heart is borderline enlarged. There is no pericardial effusion. There are coronary artery calcifications. Lungs and pleural spaces: There are no pleural effusions. There are basilar atelectatic changes. Ther e is no lobar consolidation. There is a 3 mm right upper lobe perifissural nodule as visualized in im age #171/346. There is a 3 mm solid right upper lobe pulmonary nodule as visualized in image 148/346. There is a 2.5 mm right upper lobe pulmonary nodule as visualized in image #80/346. A few scattered micronodules are also evident. There are low risk patient, current recommendations indicate no need f or further follow-up. Mediastinum: There are mildly enlarged mediastinal lymph nodes with an index precarinal node measurin g 14 mm. Seema: Hilar nodes are felt to be the upper limits of normal in size Axilla: There is no evidence of pathologic axillary adenopathy Upper abdomen: The gallbladder surgically absent Skeletal structures: There are no lytic or blastic osseous lesions. IMPRESSION: 1. Basilar atelectatic changes. No evidence of pneumonia 2. No pleural effusions. No evidence of pneumothorax 3. Scattered tiny right lung nodules. In a low risk patient, no further follow-up is indicated 4. Mild mediastinal lymphadenopathy. Electronically signed by: Esau Rosa M.D. 08/21/2018 7:20 AM
[2018-08-21] MEDS ORDERED: CEFEPIME CONSULT ACTIVE PRN (07:28)
[2018-08-21] MEDS: SODIUM CHLORIDE 0.9% 1000ML 1,000 ML IV SCH ×2 (07:30→12:09)
[2018-08-21] MEDS ORDERED: CEFEPIME 2,000 MG in SYRINGE 7.5 ML IV ONE (07:30)
--- NOTE | 2018-08-21 07:41 | CT Scan Report ---
ABDOMEN AND PELVIS CT WITHOUT CONTRAST CT DOSE: 1817.43 mGy.cm HISTORY: Acute cough with hypoxia and low back pain back pain TECHNIQUE: Multiaxial CT images of the abdomen and pelvis were performed without contrast. A dose lo wering technique was utilized adhering to the principles of ALARA. COMPARISON STUDY: CT chest of same day, CT abdomen and pelvis 06/16/2018. FINDINGS: Mild dependent subsegmental bibasilar atelectasis. No pneumatosis or pneumoperitoneum. Beam hardening artifact noted with portion of the patient's body outside the [id number]. Imaged inferior cardiac chambers are mildly enlarged with coronary arterial calcifications noted. Prior cholecystectomy. Mild marginal nodularity of the liver redemonstrated suggestive of cirrhosis. No ascites. No focal hepatic mass lesions or intrahepatic biliary ductal dilation identified. The spl een, pancreas and adrenal glands appear unremarkable. There is an ovoid structure with internal calci fications suggestive of a lymph node again seen within the periportal distribution, 2.5 x 1.3 cm. Mild nonspecific bilateral perinephric stranding. There are a few hypodense lesions noted about the k idneys are not completely characterized on this noncontrast study measuring up to 2.0 x 2.4 cm on the right suggestive of renal cysts. No renal calculi or obstructive uropathy. The compressed urinary bl adder noted with Baires catheter in place. Mild wall thickening of the bladder with perivesicular stra nding and urinary bladder dome diverticulum. Coarse calcifications noted about the prostate. No bowel obstruction or focal bowel wall thickening. Mild colonic diverticulosis without acute divert iculitis. Streak artifact from right hip arthroplasty limits evaluation of the pelvic structures. Sma ll fat filled periumbilical hernia, diastases of 1.4 cm. the soft tissues are within normal limits. D egenerative changes of the spine, pelvis and hips. No acute fracture identified. IMPRESSION: 1. No acute intra-abdominal or intrapelvic abnormality identified. 2. Colonic diverticulosis without acute diverticulitis. 3. No bowel obstruction or focal bowel wall thickening. 4. Additional findings as above. Electronically signed by: Brandin Kruse M.D. 08/21/2018 7:40 AM
[2018-08-21 07:50] LABS: Allen Test Pos (Pos); HCO3 ABG 21 mmol/L (19-24); Oxygen Saturation ABG 98.4 % (90-95); PCO2 ABG 33 mmHg (35-46); PO2 ABG 113 mm/Hg (80-95); pH ABG 7.43 (7.35-7.45)
[2018-08-21 08:23] LABS: Creatinine Clr Calc Pharmacy 61.4 ml/min; Est GFR (African American) 54.8; Est GFR (Non-African American) 47.3
[2018-08-21 08:25] LABS: Magnesium 2.2 mg/dl (1.8-2.4); Troponin I 0.225 ng/ml (0-0.045)
[2018-08-21] MEDS ORDERED: CONSULT PHARMACY SCH (09:00)
[2018-08-21] MEDS: INSULIN ASPART 100 UNITS/ML 3 ML PEN SC SCH ×4 (09:06→20:05)
[2018-08-21] MEDS: INSULIN GLARGINE SOLOSTAR 100 UNITS/ML 3 ML PEN SQ SCH (09:06)
[2018-08-21] MEDS: PANTOprazole 40 MG TAB PO SCH ×2 (09:10→20:00)
[2018-08-21] MEDS: ASPIRIN 81 MG ECTAB PO SCH (09:10)
[2018-08-21] MEDS: LACTOBACILLUS ACIDOPHILUS 1 GM PACK PO SCH (09:10)
[2018-08-21] MEDS: FERROUS SULFATE 325 MG TAB PO SCH ×2 (09:10→20:01)
[2018-08-21] MEDS: SUCRALFATE 1 GM/10 ML UDC PO SCH ×4 (09:10→19:55)
[2018-08-21] MEDS: FINASTERIDE 5 MG TAB PO SCH (09:10)
[2018-08-21] MEDS: METOPROLOL SUCC 50MG EXT REL TAB PO SCH (09:11)
--- NOTE | 2018-08-21 09:18 | Pharmacy Report ---
Pharmacy Abx Initial Consult - Date of Service August 21, 2018 - Pharmacy Dosing Scope Date of Consult: 08/21/18 Consultation requested by: Dr. Boyce Pharmacy is consulted to initiate vancomycin and cefepime IV dosing therapy, order appropriate labs and adjust drug dose/frequency. - Subjective The patient is a 77 year old M admitted on 08/21/18 05:39. - Objective Height: 6 ft Weight: 132.8 kg Vital Signs (Past 12hrs): Vital Signs Temp Pulse Pulse Resp BP BP BP 08/21/18 07:54 36.3 C L 78 24 112/70 08/21/18 07:40 83 08/21/18 07:04 08/21/18 06:35 36.5 C 82 18 123/70 08/21/18 06:06 83 22 142/83 H 08/21/18 05:46 85 109/58 L 08/21/18 05:31 84 140/63 08/21/18 05:16 90 134/72 08/21/18 05:01 88 135/69 08/21/18 04:46 99 H 157/73 H 08/21/18 04:40 38.4 C H 08/21/18 04:31 102 H 145/78 H 08/21/18 04:25 107 H 173/88 H 08/21/18 04:20 113 H 173/88 H 08/21/18 03:58 129/80 08/21/18 03:47 08/21/18 03:46 137 H 157/90 H 08/21/18 03:43 127 H 158/78 H 08/21/18 03:35 38.4 C H 126 H 24 158/78 H Pulse Ox Pulse Ox 08/21/18 07:54 97 08/21/18 07:40 08/21/18 07:04 98 08/21/18 06:35 98 08/21/18 06:06 98 08/21/18 05:46 97 08/21/18 05:31 96 08/21/18 05:16 95 08/21/18 05:01 98 08/21/18 04:46 95 08/21/18 04:40 08/21/18 04:31 96 08/21/18 04:25 08/21/18 04:20 97 08/21/18 03:58 08/21/18 03:47 96 08/21/18 03:46 95 08/21/18 03:43 94 08/21/18 03:35 92 Lab Results (24hrs): Laboratory Tests (24 Hours) 08/21/18 08/21/18 08/21/18 07:13 03:47 03:47 WBC 26.42 H Neut # (Auto) 23.25 H Creatinine 1.42 H 1.63 H Est Cr Clr Drug Dosing 61.4 Not Reportable Micro Results: 08/21/18 05:57 Urine Culture - Pending Urine,Clean Catch 08/21/18 03:47 Blood Culture - Pending Blood 08/21/18 03:56 Blood Culture - Pending Blood - Risk Factors for Resistance * Antimicrobial use within the last 90 days (amoxicillin) - Assessment & Plan Assessment 77 year old M admitted with UTI and acute kidney injury Plan cefepime and vancomycin for treatment of complicated UTI Vancomycin IV * Estimated PK Parameters: Vd 0.6 L/kg, Lester 0.05 hr-1, t1/2 14 hr (based upon baseline labs) * Loading dose: 2750 mg (20.8 mg/kg) * Maintenance dose: 1750 mg IV (13.5 mg/kg) every 16 hours (creatinine trending down and expect patient to be near baseline by tomorrow dose accordingly) * Goal trough level for UTI : 10 to 15 mcg/mL * Trough ordered for 08/24/18 * A less than traditional dose has been selected due to likelihood of drug accumulation in obese patient. Cefepime * goal dose for UTI complicated is cefepime 2 gm IV [id number] but with CrCl 30- 60 mL/min reduce dose to daily Pharmacy will continue to follow and will adjust dose/frequency as necessary. Thank you.
[2018-08-21] MEDS: ACETAMINOPHEN 325 MG TAB PO PRN (10:09)
--- NOTE | 2018-08-21 13:30 | Neurology Consultation ---
Date of Consultation August 21, 2018 Assessment & Plan (1) New onset seizure: 1. EEG with no seizure focus- global slowing 2. CT head- no acute findings 3. hypoxemic at presentation- could cause seizure like activity along with infection-elevated WBC and fever 4. continue seizure medication until MRI brain - will likely stop if nothing is revealed on the MRI 5. medical management per primary team 6. ID for treatment of infection 7. MRI brain when medically stable- to r/o stroke or lesion/abnormalities with contrast would be preferrable 8. will continue to follow with you. Supervising Physician Co-Signing Physician Notes I have seen and discussed above patient with Dr Yung Blum, neurology I seen Mr. Deleon today, interviewed him, done a brief examination, reviewed his history, discussed his case with Magdalena Sheehan PA-C I also reviewed his laboratory studies his EEG and what imaging studies are available which include only a noncontrast CT scan of the brain. An MRI is pending once his renal function returns to an acceptable level. He presents with either a tonic-clonic seizure or myoclonic activity occurring in the setting of a acute medical illness requiring antibiotics and in the association with significant hypoxemia he has had no further events but admittedly has been placed on Keppra and this is being continued his EEG shows only mild generalized slowing without any clear-cut potentially epileptogenic features or lateralizing abnormalities His examination reveals some mild to minimal encephalopathy there are no focal signs he may have a minor polyneuropathy but it is difficult to clearly demonstrate this on exam today in view of his lethargic state He has a host of chronic medical problems as outlined above and currently is in a mild degree of respiratory failure and has superimposed acute renal insufficiency probably due to dehydration and is in atrial fibrillation but is not felt to be an anticoagulation candidate based on his history of recurrent scrotal hemorrhages this may need reviewed later. At present I suspect the seizure was secondary to his acute medical illness and that Keppra will not need to be maintained but that having been said we do need to be certain he did not have an embolic shower due to his atrial fibrillation with cortical embolization and a secondary seizure related to this will also need to be sure that he does not have any enhancing foci in the brain or meninges in light of the fact that he had a pre-existing infection and was septic presentation. For these reasons we will maintain the Keppra for the present time Neurology will revisit him tomorrow hopefully when the MRI is available for review recommendations then based on the results. Yung Blum MD History of Present Illness Reason for Consultation: new onset seizure Requesting Physician: Yung Partida MD Attending Physician: Yung Partida MD History of Present Illness Joseph was brought into the hospital due to AMS. He is a 77 year old male with a PMH -UTI, AF, esophageal candidiasis, unsteady gait, HTN, DM, exertional dyspnea, anemia, urinary retention, chronic diastolic heart failure, PVD, DM toes, JUAN MANUEL, obesity who presents to the ED via EMS due to a recent seizure. EMS reported the seizure lasted two minutes and they administered the patient versed after the seizure. The had reported he had a decline in the patient �s mental state about an hour and a half ago. he has no history of seizures. He was recently diagnosed with a bladder infection and UTI 3 days ago. His O2 stat was in the 80s and he was started on a oxymask. He was febrile at 38.4 and combative. denies CP, SOB, abdominal pain, one sided weakness, numbness tingling , N, V. chronic indwelling catheter. Allergies Allergy/AdvReac Type Severity Reaction Status Date / Time metronidazole Allergy Severe see below Verified 08/21/18 05:05 amoxicillin Allergy Intermediate rash Verified 08/21/18 05:05 Home Medications Home Medications Medication Instructions Recorded Confirmed Type Lactobacillus acidophilus 10,000 mmu cells PO DAILY 06/16/18 08/21/18 History [Acidophilus] aspirin 81 mg PO DAILY 06/16/18 08/21/18 History digoxin 125 mcg PO DAILY 06/16/18 08/21/18 History ferrous sulfate 325 mg PO BID 06/16/18 08/21/18 History finasteride 5 mg PO DAILY 06/16/18 08/21/18 History furosemide 20 mg PO DAILY 06/16/18 08/21/18 History losartan 50 mg PO DAILY 06/16/18 08/21/18 History metformin 500 mg PO TIDM 06/16/18 08/21/18 History metoprolol succinate 200 mg PO DAILY 06/16/18 08/21/18 History pantoprazole 40 mg PO BID 06/16/18 08/21/18 History potassium chloride 10 meq PO DAILY 06/16/18 08/21/18 History sucralfate 10 ml PO ACHS #100 ml 06/28/18 08/21/18 Rx tramadol 50 mg PO Q6 PRN #10 tab 06/28/18 08/21/18 Rx amoxicillin 500 mg PO TID 08/21/18 08/21/18 History simethicone [Mi-Acid Gas Relief] 80 mg PO Q6H PRN 08/21/18 08/21/18 History Patient History Social History Current Living Situation: Spouse Other Information That Helps Us Care for You: No Feels Safe at Home: Yes Safety Concerns: Feels Safe At This Time Smoking Status: Former smoker Hx Alcohol Use: No Hx Substance Use: No Beliefs That Will Affect Care: None Floor Worker Required: Yes Physical Exam 2 Vital Signs (Past 24 Hours): Last Vital Signs Temp 36.4 C L 08/21/18 11:04 Pulse 72 08/21/18 11:04 Resp 20 08/21/18 11:04 BP 100/46 L 08/21/18 11:04 Pulse Ox 98 08/21/18 11:04 Physical Exam: Constitutional: appearance over nourished, ill appearing ears, Nose, Mouth and Throat: mucous membranes moist, no injection and skin normal, eyes normal Cardiovascular: irregular Respiratory: course breath sounds with wheezing Musculoskeletal: pitting edema equal bilaterally Skin: neurocutaneous disease peripheral bilaterally to mid marcelino, face very flushed Eyes: extraocular muscles intact (EOMI) and pupils equal, round and reactive to light (PERRL) NEUROLOGIC EXAMINATION: Mental status: Alert and interactive Oriented knows he is in a hospital, president [facility] 2018, lives in [place] August Oriented to person Speech fluent with no evidence of aphasia Cranial Nerves facial symmetry Reflexes: Deep tendon reflexes were symmetrical and graded 2/5. up going toes Sensory: GT proprioception absent Coordination: finger to nose no bi pass, no tremor Gait/Stance: Posture lying in bed. Motor: Negative for pronator drift of out stretched arms with eyes closed. Strength: biceps triceps hand graphic designer 5/5 bilaterally hip flex plantar flex ext 5/5 bilaterally Results & Data Laboratory Results Abnormal lab results 08/21/18 08/21/18 08/21/18 Range/Units 03:47 03:47 03:47 WBC 26.42 H (4.8-10.8) K/uL RDW Std Deviation 52.1 H (36.4-46.3) fL RDW Coeff of Shadi 15.6 H (11.5-14.5) % Immature Gran # (Auto) 0.17 H (0.00-0.02) K/uL Neut # (Auto) 23.25 H (1.4-6.5) K/uL Kings # (Auto) 0.88 H (0.11-0.59) K/uL ABG pCO2 (35-46) mmHg ABG pO2 (80-95) mm/Hg ABG O2 Saturation (90-95) % BUN 24 H (7-18) mg/dl Creatinine 1.63 H (0.6-1.4) mg/dl Glucose 208 H (70-99) mg/dl POC Glucose (70-99) Lactate 5.2 H* (0.4-2.0) mmol/L Calcium 7.9 L (8.5-10.1) mg/dl Troponin I 0.200 H* (0-0.045) ng/ml Albumin 2.9 L (3.4-5.0) gm/dl Globulin 4.6 H (2.5-4.0) gm/dl Albumin/Globulin Ratio 0.6 L (0.9-2) Urine Appearance (Clear) Urine pH (4.5-7.5) Urine Protein (Negative) Urine Blood (Negative) Urine Nitrite (Negative) Ur Leukocyte Esterase (Negative) Urine WBC (Auto) (0-5) /hpf Urine RBC (Auto) (0-4) /hpf U Hyaline Cast (Auto) (0-5) /lpf Urine Bacteria (Auto) (Negative) Digoxin (0.8-2.0) ng/ml Urine Opiates Screen (Neg) U Benzodiazepines Scrn (Neg) 08/21/18 08/21/18 08/21/18 Range/Units 05:57 05:57 07:13 WBC (4.8-10.8) K/uL RDW Std Deviation (36.4-46.3) fL RDW Coeff of Shadi (11.5-14.5) % Immature Gran # (Auto) (0.00-0.02) K/uL Neut # (Auto) (1.4-6.5) K/uL Kings # (Auto) (0.11-0.59) K/uL ABG pCO2 (35-46) mmHg ABG pO2 (80-95) mm/Hg ABG O2 Saturation (90-95) % BUN (7-18) mg/dl Creatinine (0.6-1.4) mg/dl Glucose (70-99) mg/dl POC Glucose (70-99) Lactate (0.4-2.0) mmol/L Calcium (8.5-10.1) mg/dl Troponin I 0.225 H* (0-0.045) ng/ml Albumin (3.4-5.0) gm/dl Globulin (2.5-4.0) gm/dl Albumin/Globulin Ratio (0.9-2) Urine Appearance Turbid H (Clear) Urine pH >= 9.0 H (4.5-7.5) Urine Protein 1+ H (Negative) Urine Blood Trace H (Negative) Urine Nitrite Positive H (Negative) Ur Leukocyte Esterase 3+ H (Negative) Urine WBC (Auto) >30 H (0-5) /hpf Urine RBC (Auto) 5-10 H (0-4) /hpf U Hyaline Cast (Auto) 5-10 H (0-5) /lpf Urine Bacteria (Auto) 2+ H (Negative) Digoxin (0.8-2.0) ng/ml Urine Opiates Screen Pos H (Neg) U Benzodiazepines Scrn Pos H (Neg) 08/21/18 08/21/18 08/21/18 Range/Units 07:13 07:13 07:13 WBC (4.8-10.8) K/uL RDW Std Deviation (36.4-46.3) fL RDW Coeff of Shadi (11.5-14.5) % Immature Gran # (Auto) (0.00-0.02) K/uL Neut # (Auto) (1.4-6.5) K/uL Kings # (Auto) (0.11-0.59) K/uL ABG pCO2 (35-46) mmHg ABG pO2 (80-95) mm/Hg ABG O2 Saturation (90-95) % BUN (7-18) mg/dl Creatinine 1.42 H (0.6-1.4) mg/dl Glucose (70-99) mg/dl POC Glucose (70-99) Lactate 3.1 H* (0.4-2.0) mmol/L Calcium (8.5-10.1) mg/dl Troponin I (0-0.045) ng/ml Albumin (3.4-5.0) gm/dl Globulin (2.5-4.0) gm/dl Albumin/Globulin Ratio (0.9-2) Urine Appearance (Clear) Urine pH (4.5-7.5) Urine Protein (Negative) Urine Blood (Negative) Urine Nitrite (Negative) Ur Leukocyte Esterase (Negative) Urine WBC (Auto) (0-5) /hpf Urine RBC (Auto) (0-4) /hpf U Hyaline Cast (Auto) (0-5) /lpf Urine Bacteria (Auto) (Negative) Digoxin 0.7 L (0.8-2.0) ng/ml Urine Opiates Screen (Neg) U Benzodiazepines Scrn (Neg) 08/21/18 08/21/18 08/21/18 Range/Units 07:27 07:30 11:21 WBC (4.8-10.8) K/uL RDW Std Deviation (36.4-46.3) fL RDW Coeff of Shadi (11.5-14.5) % Immature Gran # (Auto) (0.00-0.02) K/uL Neut # (Auto) (1.4-6.5) K/uL Kings # (Auto) (0.11-0.59) K/uL ABG pCO2 33 L (35-46) mmHg ABG pO2 113 H (80-95) mm/Hg ABG O2 Saturation 98.4 H (90-95) % BUN (7-18) mg/dl Creatinine (0.6-1.4) mg/dl Glucose (70-99) mg/dl POC Glucose 179 H 132 H (70-99) Lactate (0.4-2.0) mmol/L Calcium (8.5-10.1) mg/dl Troponin I (0-0.045) ng/ml Albumin (3.4-5.0) gm/dl Globulin (2.5-4.0) gm/dl Albumin/Globulin Ratio (0.9-2) Urine Appearance (Clear) Urine pH (4.5-7.5) Urine Protein (Negative) Urine Blood (Negative) Urine Nitrite (Negative) Ur Leukocyte Esterase (Negative) Urine WBC (Auto) (0-5) /hpf Urine RBC (Auto) (0-4) /hpf U Hyaline Cast (Auto) (0-5) /lpf Urine Bacteria (Auto) (Negative) Digoxin (0.8-2.0) ng/ml Urine Opiates Screen (Neg) U Benzodiazepines Scrn (Neg) Diagnostic Findings CXR-. Cardiomegaly without overt pulmonary edema. Minimal subsegmental bibasilar opacities are suggestive of atelectasis. CT head- . Cardiomegaly without overt pulmonary edema. Minimal subsegmental bibasilar opacities are suggestive of atelectasis. CT abdomen/pelvis- No acute intra-abdominal or intrapelvic abnormality identified. Colonic diverticulosis without acute diverticulitis. No bowel obstruction or focal bowel wall thickening. CT chest- Basilar atelectatic changes. No evidence of pneumonia No pleural effusions. No evidence of pneumothorax Scattered tiny right lung nodules. In a low risk patient, no further follow-up is indicated Mild mediastinal lymphadenopathy.
--- NOTE | 2018-08-21 15:39 | Procedure Note ---
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 Home Medication List Home Medications Medication Instructions Recorded Confirmed Type Lactobacillus acidophilus 10,000 mmu cells PO DAILY 06/16/18 08/21/18 History [Acidophilus] aspirin 81 mg PO DAILY 06/16/18 08/21/18 History digoxin 125 mcg PO DAILY 06/16/18 08/21/18 History ferrous sulfate 325 mg PO BID 06/16/18 08/21/18 History finasteride 5 mg PO DAILY 06/16/18 08/21/18 History furosemide 20 mg PO DAILY 06/16/18 08/21/18 History losartan 50 mg PO DAILY 06/16/18 08/21/18 History metformin 500 mg PO TIDM 06/16/18 08/21/18 History metoprolol succinate 200 mg PO DAILY 06/16/18 08/21/18 History pantoprazole 40 mg PO BID 06/16/18 08/21/18 History potassium chloride 10 meq PO DAILY 06/16/18 08/21/18 History sucralfate 10 ml PO ACHS #100 ml 06/28/18 08/21/18 Rx tramadol 50 mg PO Q6 PRN #10 tab 06/28/18 08/21/18 Rx amoxicillin 500 mg PO TID 08/21/18 08/21/18 History simethicone [Mi-Acid Gas Relief] 80 mg PO Q6H PRN 08/21/18 08/21/18 History Inpatient Medication List Acetaminophen (Tylenol) 325 mg PO Q6H PRN PRN Reason: Pain or Fever Stop: 09/20/18 07:03 Last Admin: 08/21/18 10:09 Dose: 325 mg Aspirin (Ecotrin Ectab) 81 mg PO DAILY [facility] Stop: 09/20/18 08:59 Last Admin: 08/21/18 09:10 Dose: 81 mg Ferrous Sulfate (Feosol) 325 mg PO BID MARIYA Stop: 09/20/18 08:59 Last Admin: 08/21/18 09:10 Dose: 325 mg Finasteride (Proscar) 5 mg PO DAILY [facility] Stop: 09/20/18 08:59 Last Admin: 08/21/18 09:10 Dose: 5 mg Insulin Aspart (Novolog Flexpen) 0 units SC ACHS MARIYA Stop: 09/20/18 07:29 Last Admin: 08/21/18 12:26 Dose: 1 units Admin: 08/21/18 09:06 Dose: 2 units Insulin Glargine (Lantus Solostar Pen) 5 units SQ DAILY MARIYA Stop: 09/20/18 08:59 Last Admin: 08/21/18 09:06 Dose: 5 units Lactobacillus Acidophilus (Floranex Granules/Powder Packet) 1 gm PO DAILY MARIYA Stop: 09/20/18 08:59 Last Admin: 08/21/18 09:10 Dose: 1 gm Metoprolol Succinate (Toprol Xl) 200 mg PO DAILY MARIYA Stop: 09/20/18 08:59 Last Admin: 08/21/18 09:11 Dose: 200 mg Pantoprazole Sodium (Protonix) 40 mg PO BID MARIYA Stop: 09/20/18 08:59 Last Admin: 08/21/18 09:10 Dose: 40 mg Sucralfate (Carafate) 1 gm PO ACHS MARIYA Stop: 09/20/18 07:29 Last Admin: 08/21/18 12:09 Dose: 1 gm Admin: 08/21/18 09:10 Dose: 1 gm Discontinued Medications Sodium Chloride (Nss 1000ml) 1,000 mls @ 125 mls/hr IV .Q8H MARIYA Stop: 09/20/18 03:44 Last Infusion: 08/21/18 07:31 Dose: 0 mls/hr Admin: 08/21/18 04:22 Dose: 125 mls/hr Sodium Chloride (Nss 1000ml) 500 mls @ 999 mls/hr IV .Q31M ONE Stop: 08/21/18 05:00 Last Infusion: 08/21/18 05:21 Dose: 0 mls/hr Admin: 08/21/18 04:46 Dose: 999 mls/hr Acetaminophen (Ofirmev) 65 mls @ 200 mls/hr IV NOW ONE Stop: 08/21/18 05:10 Last Infusion: 08/21/18 05:32 Dose: 0 mls/hr Admin: 08/21/18 05:13 Dose: 200 mls/hr Ceftriaxone Sodium 2,000 mg/ (Dextrose) 70 mls @ 100 mls/hr IV NOW STA Stop: 08/21/18 05:35 Last Infusion: 08/21/18 07:32 Dose: 0 mls/hr Admin: 08/21/18 05:53 Dose: 100 mls/hr Vancomycin HCl 2,750 mg/ (Sodium Chloride) 555 mls @ 200 mls/hr IV NOW ONE Stop: 08/21/18 07:40 Last Infusion: 08/21/18 08:11 Dose: 0 mls/hr Admin: 08/21/18 05:21 Dose: 200 mls/hr Levetiracetam 1,000 mg/ (Dextrose) 110 mls @ 440 mls/hr IV NOW STA Stop: 08/21/18 06:03 Last Infusion: 08/21/18 07:31 Dose: 0 mls/hr Admin: 08/21/18 06:51 Dose: 440 mls/hr Sodium Chloride (Nss 1000ml) 1,000 mls @ 200 mls/hr IV .Q5H MARIYA Stop: 08/21/18 13:03 Last Admin: 08/21/18 12:09 Dose: 200 mls/hr Infusion: 08/21/18 12:09 Dose: 0 mls/hr Admin: 08/21/18 07:30 Dose: 200 mls/hr Cefepime HCl 2,000 mg/ Syringe 20 mls @ 5 mls/min IV 0730 ONE Stop: 08/21/18 07:33 Last Admin: 08/21/18 09:01 Dose: 5 mls/min Metoprolol Tartrate (Lopressor) 5 mg IV Q5M PRN PRN Reason: Tachycardia Stop: 09/20/18 03:44 Last Admin: 08/21/18 04:25 Dose: 5 mg Description This is a 21 electrode EEG with a single channel dedicated to limited EKG. The electrodes were placed in accordance with the International 10-20 system. This EEG was done as a bedside recording is of good technical quality. No activation procedures were utilized. There are occasional muscle and movement artifacts, and intermittent P3 electrode artifact and occasional "popping" spikelike artifact occurring over both hemispheres without any phase reversing features or lateralizing properties The background rhythm is slightly slow in the upper theta range at 8 Hz maximum frequency and of up to 20 �V maximum amplitude. It is back from the posterior head region bilaterally symmetrical. Polymorphic mid to lower frequency modest voltage theta delta activity seen over the central regions. Beta activity seen bifrontally. At no time during the waking tracing is evidence for clear-cut potentially epileptogenic features. There are no triphasic wave discharges there is no evidence for cortical myoclonic activity Interpretation This is a mildly diffusely abnormal EEG without lateralizing features without potentially epileptogenic discharges Clinical Correlation There is a mildly abnormal EEG without lateralizing features were potentially epileptogenic features and correlates with any 1 of a number of nonspecific generalized disorders that affect cortical neuronal function. Yung Blum MD
[2018-08-21] MEDS: VANCOMYCIN HCL 1,750 MG in SODIUM CHLORIDE 0.9% 500 ML IV SCH (17:55)
--- NOTE | 2018-08-21 18:39 | Hospitalist Progress Note ---
Date of Service August 21, 2018 Assessment & Plan (1) Severe sepsis: Met criteria for severe sepsis per current [facility] criteria. Source = UTI due to chronic indwelling Baires cath as discussed below. Blood and urine cultures obtained. Received fluid resuscitation. Received broad-spectrum antibiotic coverage with vancomycin and cefepime. Lactate initially 5.2, improving. Check f/u lactate with procalcitionin in a.m. Consult ID (2) UTI (urinary tract infection): Due to chronic indwelling Baires catheter. Urine culture from clinic 08/17 growing: (1) Proteus mirabilis (sensitive to amp, cefepime, cetriaxone, cipro, gent, piperacillin, TMP/sulfa (2) Enterococcus sp (sensitive to amp, nitrofurantoin, vanco; RESISTANT to tetracycline) Unfortunately, patient appears to have true allergy to amoxicillin. Receiving IV vancomycin and cefepime. (3) Chronic indwelling Baires catheter: Managed by Urology. Catheter changed last week on 08/17. Discuss timing of next change with Urology. (4) Atrial fibrillation, rapid: Chronic AF. Presented with RVR secondary to sepsis. (5) Elevated troponin level: Serum troponin 0.200, 0.225. No anginal symptoms. EKG showed rapid AF with nonspecific T-wave changes. Elevated troponin probably due to demand ischemic from rapid AF + sepsis. Doubt acute cardiac syndrome. (6) Altered mental status: Metabolic encephalopathy secondary to sepsis. Resolved. (7) New onset seizure: Witnessed seizure. K and Mg normal Head CT negative. Neuro consulted. EEG did not show any epileptogenic foci. MRI brain recommended when clinical status allows. Seizure may have been related to sepsis. May be able to discontinue leveteriacetam- will defer to Neurology. (8) Acute renal failure superimposed on stage 3 chronic kidney disease: CKD III with baseline creatinine around 1. Creatinine at time of admission 1.63. CIERRA secondary to sepsis. Management of sepsis as discussed above. Follow. (9) Chronic diastolic heart failure: Compensated. Check f/u chest x-ray tomorrow. Diurese as needed. (10) Chronic atrial fibrillation: Rate controlled with metoprolol and digoxin. No anticoagulants because of bleeding complications in past. (11) Hypertension: Holding losartan. Continue metoprolol with parameters. Monitor hemodynamics closely in light of sepsis. (12) JUAN MANUEL (obstructive sleep apnea): Not able to tolerate CPAP or BiPAP. Not using nocturnal O2 at home. Check nocturnal pulse oximetry prior to discharge. 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 Check Hgb A1C. Random glucose 208 at time of admission. Hold metformin during hospital stay. Lantus / NovoLog per protocol. (14) Morbid obesity: Wt 132 kg, BMI 39.7 with associated hypertension and DM. Heart healthy, diabetic diet. (15) DVT prophylaxis: No anticoagulants because of bleeding complications in past. SCD's. Ambulate. (16) Discharge planning issues: Anticipated discharge to home. Family Medicine follow-up with Dr. Donte Szymanski. Urology follow-up with Dr. Zhang. Subjective Evening recheck. visiting. Admitted with sepsis this morning. Feels much better. No fever. More alert. No further seizures. Physical Exam 2 Vital Signs (Past 24 Hours): Last Vital Signs Temp 36.4 C L 08/21/18 15:10 Pulse 66 08/21/18 15:10 Resp 18 08/21/18 15:10 BP 92/56 L 08/21/18 15:10 Pulse Ox 98 08/21/18 15:10 Constitutional: no acute distress Respiratory: normal respiratory effort, lungs clear to auscultation Cardiovascular: Rate/Rhythm: regular rate and regular rhythm Extremities: + edema (trace pretibial) Gastrointestinal (Abdomen): Inspection/Auscultation: normal bowel sounds Percussion/Palpation: abdomen soft; abdomen nontender Musculoskeletal: Extremities: no cyanosis Psychiatric: A+Ox3, euthymic affect _ (1) UTI (urinary tract infection) Encounter type: Hematuria presence: Indwelling urinary catheter type: Urinary tract infection type: (2) Acute renal failure superimposed on stage 3 chronic kidney disease Acute renal failure type: unspecified Qualified Code(s): N17.9 - Acute kidney failure, unspecified; N18.3 - Chronic kidney disease, stage 3 (moderate) (3) Hypertension Hypertension type: unspecified Qualified Code(s): I10 - Essential (primary) hypertension (4) Diabetes mellitus type 2 with complications Diabetes mellitus senior living insulin use: without senior living use Qualified Code (s): E11.8 - Type 2 diabetes mellitus with unspecified complications
[2018-08-21] MEDS ORDERED: SODIUM CHLORIDE 0.9% 500 ML IV SCH (18:45)
[2018-08-21] MEDS: levETIRAcetam 500 MG TAB PO SCH (20:00)
[2018-08-21 20:08] LABS: Calcium 7.6 mg/dl (8.5-10.1); Creatinine Clr Calc Pharmacy 72.7 ml/min; Est GFR (African American) 67.2; Potassium 4.3 mmol/L (3.5-5.1)
[2018-08-21] MEDS: HYDROCODONE/ACETAMOPHEN 5/325MG TAB PO PRN (20:09)
[2018-08-22] MEDS: HYDROCODONE/ACETAMOPHEN 5/325MG TAB PO PRN ×2 (02:42→22:19)
[2018-08-22] MEDS: CEFEPIME 2,000 MG in SYRINGE 7.5 ML IV SCH (06:11)
[2018-08-22 06:57] LABS: Basophils # (auto) 0.04 K/uL (0-0.2); Basophils % (auto) 0.4 %; Eosinophils # (auto) 0.83 K/uL (0-0.5); Eosinophils % (auto) 9.2 %; Hematocrit (blood only) 38.9 % (42-52); Hemoglobin 11.8 g/dL (14.0-18.0); Immature Granulocytes # (auto) 0.02 K/uL (0.00-0.02); Immature Granulocytes % (auto) 0.2 %; Lymphocytes # (auto) 0.85 K/uL (1.2-3.4); Lymphocytes % (auto) 9.4 %; Mean Corpuscular Hgb Conc 30.3 g/dL (32-36); Mean Corpuscular Volume 94.9 fL (80-100); Mean Platelet Volume 9.7 fL (7.4-10.4); Monocytes % (auto) 5.6 %; Neutrophils # (auto) 6.76 K/uL (1.4-6.5); Neutrophils % (auto) 75.2 %; Platelet Count 240 K/uL (130-400); RDW Coefficient of Variation 15.7 % (11.5-14.5); RDW Standard Deviation 54.3 fL (36.4-46.3)
[2018-08-22 07:17] LABS: BUN Creatinine Ratio 19.6 (10-20); Calcium 7.8 mg/dl (8.5-10.1); Creatinine Clr Calc Pharmacy 77.2 ml/min; Est GFR (African American) 72.3; Est GFR (Non-African American) 62.4; Potassium 4.5 mmol/L (3.5-5.1)
--- NOTE | 2018-08-22 07:20 | XRay Report ---
XR chest 1V portable HISTORY: 77 years-old Male sepsis, history CHF acute sepsis with congestive heart failure COMPARISON: Chest radiograph and CT chest to 2018 TECHNIQUE: Portable AP view of the chest FINDINGS: Cardiomediastinal and hilar silhouettes are unchanged. Calcification of the thoracic aortic arch. The re is no pneumothorax, large pleural effusion or overt pulmonary edema. Minimal subsegmental bibasila r atelectasis persists. Degenerative changes of the shoulders and spine. IMPRESSION: No acute process. The above report was generated using voice recognition software. It may contain grammatical, syntax o r spelling errors. Electronically signed by: Brandin Kruse M.D. 08/22/2018 7:19 AM
[2018-08-22] MEDS: INSULIN ASPART 100 UNITS/ML 3 ML PEN SC SCH ×4 (08:34→21:01)
[2018-08-22] MEDS: INSULIN GLARGINE SOLOSTAR 100 UNITS/ML 3 ML PEN SQ SCH (08:35)
[2018-08-22] MEDS: SUCRALFATE 1 GM/10 ML UDC PO SCH ×4 (08:37→21:00)
[2018-08-22] MEDS: LACTOBACILLUS ACIDOPHILUS 1 GM PACK PO SCH (08:37)
[2018-08-22] MEDS: levETIRAcetam 500 MG TAB PO SCH ×2 (08:37→21:00)
[2018-08-22] MEDS: FINASTERIDE 5 MG TAB PO SCH (08:37)
[2018-08-22] MEDS: FERROUS SULFATE 325 MG TAB PO SCH ×2 (08:37→21:00)
[2018-08-22] MEDS: PANTOprazole 40 MG TAB PO SCH ×2 (08:37→21:00)
[2018-08-22] MEDS: ASPIRIN 81 MG ECTAB PO SCH (08:37)
[2018-08-22] MEDS: METOPROLOL SUCC 50MG EXT REL TAB PO SCH (08:38)
[2018-08-22] MEDS: VANCOMYCIN HCL 1,750 MG in SODIUM CHLORIDE 0.9% 500 ML IV SCH ×2 (09:36→21:43)
--- NOTE | 2018-08-22 10:01 | Infectious Disease Consult ---
Date of Consultation August 22, 2018 admitted with change in mental status, seizure. wbc 26 in ER, now 9. temp of 38.4 in ER now afebrile. on broad spectrum abx, cultures pending. awake and alert on my exam, asking to go home. toleraitng abx. denies cp, sob, cough, n/v/ d/abd pain. no gu symptoms, chronic patiño, recenlty changed, h/o recurrent uti. ct chest/abd/pelvis negative. UA >30 wbc, +2 bacteria. Flu negative. on cefepim and vanco, tolerating well. Assessment & Plan (1) Leukocytosis: likely related to seizure, rapid improvement. continue abx for now pending cultures History of Present Illness Attending Physician: Marisol Daly DO Allergies Allergy/AdvReac Type Severity Reaction Status Date / Time metronidazole Allergy Severe see below Verified 08/21/18 05:05 amoxicillin Allergy Intermediate rash Verified 08/21/18 05:05 Home Medications Home Medications Medication Instructions Recorded Confirmed Type Lactobacillus acidophilus 10,000 mmu cells PO DAILY 06/16/18 08/21/18 History [Acidophilus] aspirin 81 mg PO DAILY 06/16/18 08/21/18 History digoxin 125 mcg PO DAILY 06/16/18 08/21/18 History ferrous sulfate 325 mg PO BID 06/16/18 08/21/18 History finasteride 5 mg PO DAILY 06/16/18 08/21/18 History furosemide 20 mg PO DAILY 06/16/18 08/21/18 History losartan 50 mg PO DAILY 06/16/18 08/21/18 History metformin 500 mg PO TIDM 06/16/18 08/21/18 History metoprolol succinate 200 mg PO DAILY 06/16/18 08/21/18 History pantoprazole 40 mg PO BID 06/16/18 08/21/18 History potassium chloride 10 meq PO DAILY 06/16/18 08/21/18 History sucralfate 10 ml PO ACHS #100 ml 06/28/18 08/21/18 Rx tramadol 50 mg PO Q6 PRN #10 tab 06/28/18 08/21/18 Rx amoxicillin 500 mg PO TID 08/21/18 08/21/18 History simethicone [Mi-Acid Gas Relief] 80 mg PO Q6H PRN 08/21/18 08/21/18 History Patient History Medical History Acquired buried penis (Chronic) BPH without urinary obstruction (Chronic) Benign hypertension (Chronic) Chronic diastolic CHF (congestive heart failure) (Chronic) DM (diabetes mellitus), type 2, uncontrolled w/ophthalmic complication (Chronic) Diverticulosis of colon (without mention of hemorrhage) (Chronic) Exertional dyspnea (Chronic) Gastric ulcer with hemorrhage but without obstruction (Chronic) H/O Clostridium difficile infection (Chronic) Hemangioma of skin (Chronic) History of chronic atrial fibrillation (Chronic) Morbid obesity (Chronic) JUAN MANUEL (obstructive sleep apnea) (Chronic) Sepsis (Chronic) Symptomatic anemia (Chronic) Urinary retention (Chronic) Social History Current Living Situation: Spouse Other Information That Helps Us Care for You: No Feels Safe at Home: Yes Safety Concerns: Feels Safe At This Time Smoking Status: Former smoker Hx Alcohol Use: No Hx Substance Use: No Beliefs That Will Affect Care: None 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: Yes Review of Systems all remaining ros reviewed and are negative Physical Exam 2 Vital Signs (Past 24 Hours): Last Vital Signs Temp 36.7 C 08/22/18 07:36 Pulse 76 08/22/18 07:36 Resp 21 08/22/18 07:36 BP 120/56 L 08/22/18 07:36 Pulse Ox 95 08/22/18 07:36 Constitutional: WD/WN, vitals as above Eyes: PERRL, conjunctivae normal, anicteric sclerae ENMT: external ear and nose normal, oropharynx normal Neck: normal visual inspection Respiratory: normal respiratory effort, lungs clear to auscultation Cardiovascular: RRR, no murmur, no edema Gastrointestinal (Abdomen): normal bowel sounds, soft, nontender, no hepatosplenomegaly Musculoskeletal: no cyanosis or clubbing, extremities motor strength 5/5 Skin: no rashes, warm and dry Psychiatric: A+Ox3, euthymic affect
--- NOTE | 2018-08-22 13:03 | 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 Note ---
Date of Service: August 22, 2018 I saw Mr. Deleon today interviewed him briefly examined him. I reviewed the laboratory studies which now reveal high resolution of his leukocytosis mixed renetta on the urinary cultures and still pending blood cultures. Infectious disease feels that the leukocytosis was related to the seizure. The cause of the event remains unclear. He was hypoxemic on presentation, and EEG shows only nonspecific mild generalized slowing and imaging of the brain with an MRI with contrast is still pending. He is clinically likely back to his old baseline. His examination is nonfocal. He is on Keppra and tolerating it well. At this point remains unclear as to whether this was a primary epileptic event or a secondary 1. I would like to be sure there is no significant structural disease involving the brain. This man is in atrial fibrillation could have had a shower of emboli and could have had some cortical irritability related to that with a subsequent seizure. If this indeed is the case we would not maintain Keppra for an indefinite period of time. If this were not the case I am still suspicious that hypoxemia may have been the cause of the event. The issue to some degree is academic. At this point were probably committed to keeping him on the Keppra until we can reassess him on an outpatient basis in neurology about 6-8 weeks after discharge. I would like to have an outpatient EEG and perhaps a 72-hour EEG done to see if we can capture any potentially epileptogenic discharges and of course would like to see the results of the MRI with and without contrast hopefully this can be done soon once his renal function gets back or closely to his old baseline. We will check back with him tomorrow. Yung Blum MD
--- NOTE | 2018-08-22 16:39 | Hospitalist Progress Note ---
Date of Service August 22, 2018 Assessment & Plan (1) Hypoxia: Resolved. Uncertain cause. (2) New onset seizure: Uncertain etiology. Possibly allergic reaction to amoxicilin, taken one hour prior to onset of seizure? Poss related to acute onset hypoxia? EEG revealed no epileptiform dischargesMRI pending. Izabela per Neurology for now. Cont seizure precautions. (3) Complicated UTI (urinary tract infection): chronic indwelling patiño. ID consulted. Cont cefepime and Vanc for now pending cultures. (4) Chronic indwelling Patiño catheter: (5) Scrotal disorder: chronic wound (6) Chronic a-fib: Not on anticoagulation as he was deemed a poor candidate. Cont Toprol and ASA 81mg PO daily (7) Leukocytosis: 26K on arrival with resolution to 9 within one day of empiric abx. (8) CIERRA (acute kidney injury): resolved. (9) Diabetes mellitus type 2 with complications: Inpatient sugar at goal. Cont glargine and Novolog ISS. (10) DVT prophylaxis: No anticoagulants because of bleeding complications in past. SCD's. Ambulate. Full Dispo-pending Neuro recs. Marisol Daly, DO [facility] Subjective 77 yo M presented via EMS for new onset seizure. Pt states that he forgot he had an allergy to PCN and took one dose of amoxicillin [employer]. He states that he walked into the bathroom with his who states that he was at the bathroom counter but he wa sunable to stand fully. He reports that he went back into his bedroom and laid down. Currently he feels much better since admission and has not had any seizures. Physical Exam 2 Vital Signs (Past 24 Hours): Last Vital Signs Temp 36.5 C 08/22/18 15:22 Pulse 74 08/22/18 15:22 Resp 18 08/22/18 15:22 BP 119/66 08/22/18 15:22 Pulse Ox 90 08/22/18 15:22 CONSTITUTIONAL: obese, vitals as above, generally well-appearing EYES: EOMI bilaterally, PERRL, normal conjuctivae, no scleral icterus NECK: trachea midline RESPIRATORY: clear to auscultation bilaterally, no crackles, rales or wheezes, normal respiratory effort CARDIOVASCULAR: regular rate and rhythm, S1 and 2 heard without murmurs, gallops or rubs, no JVD, no peripheral edema GASTROINTESTINAL: normal bowel sounds, soft, nontender, no hepatomegaly, no guarding MUSCULOSKELETAL: strength 5/5 throughout, head is normocephalic and atraumatic , neck supple, normal palpation of chest wall without tenderness SKIN: warm and dry, +scrotal wound not evaluated. NEUROLOGIC: CN 2-12 grossly intact PSYCHIATRIC: alert cooperative and oriented to person, place and time. Results & Data Laboratory Results Short CBC 08/22/18 Range/Units 06:31 WBC 9.00 (4.8-10.8) K/uL Hgb 11.8 L (14.0-18.0) g/dL Hct 38.9 L (42-52) % Plt Count 240 (130-400) K/uL BMP 08/22/18 06:31 Sodium 140 Potassium 4.5 Chloride 109 H Carbon Dioxide 25 BUN 22 H Creatinine 1.13 Glucose 123 H Calcium 7.8 L Medications Administered Current Inpatient Medications Acetaminophen (Tylenol) 325 mg PO Q6H PRN PRN Reason: Pain or Fever Stop: 09/20/18 07:03 Last Admin: 08/21/18 10:09 Dose: 325 mg Hydrocodone Bitart/Acetaminophen ([place] 5/325) 1 tab PO Q4H PRN PRN Reason: Pain Stop: 09/04/18 07:03 Last Admin: 08/22/18 22:19 Dose: 1 tab Aspirin (Ecotrin Ectab) 81 mg PO DAILY MARIYA Stop: 09/20/18 08:59 Last Admin: 08/22/18 08:37 Dose: 81 mg Dextrose (Dextrose 50%) 25 - 50 ml IV UD PRN; Protocol PRN Reason: Hypoglycemia Protocol Stop: 09/20/18 07:03 Ferrous Sulfate (Feosol) 325 mg PO BID MARIYA Stop: 09/20/18 08:59 Last Admin: 08/22/18 21:00 Dose: 325 mg Finasteride (Proscar) 5 mg PO DAILY MARIYA Stop: 09/20/18 08:59 Last Admin: 08/22/18 08:37 Dose: 5 mg Gadobutrol (Gadavist 65ml) 13 ml IV ONCE PRN PRN Reason: Interaction Checking Stop: 08/26/18 19:23 Last Admin: 08/22/18 19:25 Dose: 13 ml Glucagon (Glucagen) 1 mg SQ UD PRN; Protocol PRN Reason: Hypoglycemia Protocol Stop: 09/20/18 07:03 Glucose (Glucose 40%) 15 - 30 gm PO UD PRN; Protocol PRN Reason: Hypoglycemia Protocol Stop: 09/20/18 07:03 Glucose (Dex4 Glucose) 4 - 8 tabs PO UD PRN; Protocol PRN Reason: Hypoglycemia Protocol Stop: 09/20/18 07:03 Hydromorphone HCl (Dilaudid) 0.25 mg IV Q3H PRN PRN Reason: Pain Stop: 09/04/18 07:03 Lorazepam (Ativan) 1 mg in 2 mls @ 0.5 mls/min IV Q10M PRN PRN Reason: seizures Stop: 09/20/18 07:03 Prochlorperazine 5 mg/ Syringe 5 mls @ 5 mls/min IV Q6H PRN PRN Reason: Nausea And Vomiting Stop: 09/20/18 07:03 Cefepime HCl 2,000 mg/ Syringe 20 mls @ 5 mls/min IV Q24H MARIYA; Protocol Stop: 08/30/18 07:03 Last Admin: 08/22/18 06:11 Dose: 5 mls/min Vancomycin HCl 1,750 mg/ (Sodium Chloride) 535 mls @ 200 mls/hr IV Q12H MARIYA Stop: 09/01/18 21:59 Last Admin: 08/22/18 21:43 Dose: 200 mls/hr Insulin Aspart (Novolog Flexpen) 0 units SC ACHS MARIYA Stop: 09/20/18 07:29 Last Admin: 08/22/18 21:01 Dose: 1 units Insulin Glargine (Lantus Solostar Pen) 5 units SQ DAILY MARIYA Stop: 09/20/18 08:59 Last Admin: 08/22/18 08:35 Dose: 5 units Ipratropium [place] (Atrovent 0.02% 0.5mg/2.5ml) 0.5 mg INH Q4R PRN PRN Reason: Shortness Of Breath Or Wheezing Stop: 09/20/18 07:03 Lactobacillus Acidophilus (Floranex Granules/Powder Packet) 1 gm PO DAILY MARIYA Stop: 09/20/18 08:59 Last Admin: 08/22/18 08:37 Dose: 1 gm Levalbuterol HCl (Xopenex 1.25mg/0.5ml Neb) 1.25 mg INH Q4R PRN PRN Reason: Shortness Of Breath Or Wheezing Stop: 09/20/18 07:03 Levetiracetam (Keppra) 500 mg PO BID MARIYA Stop: 09/20/18 20:59 Last Admin: 08/22/18 21:00 Dose: 500 mg Metoprolol Succinate (Toprol Xl) 200 mg PO DAILY MARIYA Stop: 09/20/18 08:59 Last Admin: 08/22/18 08:38 Dose: 200 mg Miscellaneous (Carbohydrates For Hypoglycemia) 15 - 30 gm PO UD PRN PRN Reason: Hypoglycemia Treatment Stop: 09/20/18 07:03 Miscellaneous Information (Consult) 1 ea N/A UD PRN PRN Reason: Consult Stop: 09/20/18 04:53 Miscellaneous Information (Cefepime Consult Active) 1 ea N/A UD PRN PRN Reason: Consult Stop: 09/20/18 07:27 Pantoprazole Sodium (Protonix) 40 mg PO BID [facility] Stop: 09/20/18 08:59 Last Admin: 08/22/18 21:00 Dose: 40 mg Sucralfate (Carafate) 1 gm PO ACHS [facility] Stop: 09/20/18 07:29 Last Admin: 08/22/18 21:00 Dose: 1 gm _ (1) Diabetes mellitus type 2 with complications Diabetes mellitus residential insulin use: without residential use Qualified Code (s): E11.8 - Type 2 diabetes mellitus with unspecified complications
[2018-08-22] MEDS ORDERED: GADOBUTROL 65ML VIAL IV PRN (19:24)
--- NOTE | 2018-08-22 19:36 | Magnetic Resonance Report ---
MRI OF THE BRAIN WITHOUT AND WITH IV CONTRAST CLINICAL HISTORY: new onset seizure COMPARISON STUDY: Noncontrast head CT dated 08/21/2018 TECHNIQUE: MRI of the brain was performed from the vertex to the skull base utilizing various T1 and T2 weighted sequences. Following the IV administration of 13 mL of Gadavist contrast, additional enha nced images were obtained. FINDINGS: Sagittal T1, axial diffusion, proton density and T2 weighted axial, coronal FLAIR, and pre and post a xial T1-weighted images were acquired. These were supplemented with post gadolinium coronal T1 weight ed images. No intra or extra-axial mass lesions are visualized. Axial diffusion-weighted images reveal no evidence of acute or subacute infarction. There is no evidence of ventricular dilatation. Proton density T2-weighted and FLAIR images reveal moderate scattered foci of increased T2 signal wit hin the white matter, likely on a small vessel basis. There are no abnormal flow voids. There is no evidence of pathologic enhancement. IMPRESSION: 1. No acute intracranial findings 2. No evidence of intracranial mass 3. No evidence of acute or subacute infarction 4. Moderate white matter disease likely a small vessel basis Electronically signed by: Esau Rosa M.D. 08/22/2018 7:35 PM
[2018-08-23] MEDS: HYDROCODONE/ACETAMOPHEN 5/325MG TAB PO PRN ×2 (06:02→19:49)
[2018-08-23] MEDS: SUCRALFATE 1 GM/10 ML UDC PO SCH ×4 (06:30→19:24)
[2018-08-23 06:46] LABS: Hematocrit (blood only) 44.4 % (42-52); Hemoglobin 14.3 g/dL (14.0-18.0); Mean Corpuscular Hgb Conc 32.2 g/dL (32-36); Mean Corpuscular Volume 93.1 fL (80-100); Mean Platelet Volume 10.2 fL (7.4-10.4); Platelet Count 268 K/uL (130-400); RDW Coefficient of Variation 15.6 % (11.5-14.5); Red Blood Count 4.77 M/uL (4.7-6.1); White Blood Count 10.02 K/uL (4.8-10.8)
[2018-08-23 07:24] LABS: BUN Creatinine Ratio 19.4 (10-20); Calcium 8.5 mg/dl (8.5-10.1); Creatinine Clr Calc Pharmacy 77.3 ml/min; Est GFR (African American) 74.7; Est GFR (Non-African American) 64.4; Potassium 4.1 mmol/L (3.5-5.1)
[2018-08-23] MEDS: CEFEPIME 2,000 MG in SYRINGE 7.5 ML IV SCH ×2 (08:01→19:23)
[2018-08-23] MEDS: PANTOprazole 40 MG TAB PO SCH ×2 (08:05→19:24)
[2018-08-23] MEDS: METOPROLOL SUCC 50MG EXT REL TAB PO SCH (08:05)
[2018-08-23] MEDS: FERROUS SULFATE 325 MG TAB PO SCH ×2 (08:06→19:25)
[2018-08-23] MEDS: levETIRAcetam 500 MG TAB PO SCH ×2 (08:06→19:26)
[2018-08-23] MEDS: FINASTERIDE 5 MG TAB PO SCH (08:07)
[2018-08-23] MEDS: ASPIRIN 81 MG ECTAB PO SCH (08:08)
[2018-08-23] MEDS: INSULIN ASPART 100 UNITS/ML 3 ML PEN SC SCH ×4 (08:09→20:29)
[2018-08-23] MEDS: INSULIN GLARGINE SOLOSTAR 100 UNITS/ML 3 ML PEN SQ SCH (08:10)
[2018-08-23] MEDS: LACTOBACILLUS ACIDOPHILUS 1 GM PACK PO SCH (08:10)
[2018-08-23] MEDS: VANCOMYCIN HCL 1,750 MG in SODIUM CHLORIDE 0.9% 500 ML IV SCH ×2 (10:08→21:21)
[2018-08-23 12:29] LABS: 7-Aminoclonaz, Confirm NEGATIVE NG/ML (CUTOFF=25); Hydro-Alp Ur, GC/MS NEGATIVE NG/ML (CUTOFF=25); Hydrocodone Urine NEGATIVE NG/ML (CUTOFF=50); Hydromor Urine NEGATIVE NG/ML (CUTOFF=50); Hydroxyethylflurazepam, Conf NEGATIVE NG/ML (CUTOFF=50); Hydroxytriazolam NEGATIVE NG/ML (CUTOFF=50); Lorazepam, Ur GC/MS NEGATIVE NG/ML (CUTOFF=50); Morphine Urine NEGATIVE NG/ML (CUTOFF=50); Nordiazepam, Confirm NEGATIVE NG/ML (CUTOFF=50); Norhydrocodone Conf Ur 65 NG/ML (CUTOFF=50); Noroxycodone Urine NEGATIVE NG/ML (CUTOFF=50); Oxazepam Ur, GC/MS NEGATIVE NG/ML (CUTOFF=50); Oxycodone Urine NEGATIVE NG/ML (CUTOFF=50); Temazepam, Confirm NEGATIVE NG/ML (CUTOFF=50)
--- NOTE | 2018-08-23 13:19 | Neurology Progress Note ---
Date of Service August 23, 2018 Assessment & Plan (1) New onset seizure: 1. EEG with no seizure focus- global slowing 2. CT head- no acute findings 3. hypoxemic at presentation- could cause seizure like activity along with infection-elevated WBC and fever 4. continue seizure medication will see in out patient and order 72 hour EEG to evaluate if needed or can be stopped 5. medical management per primary team 6. ID for treatment of infection 7. MRI brain - no stroke on MRI 8. would continue aspirin and optimize DM, HTN, HLD LDL <70 9. continue Keppra 500 mg BID will re evaluate as out patient. will be available for any further questions concerns. Supervising Physician Co-Signing Physician Notes I have seen and discussed above patient with Dr Yung Blum, neurology I saw Mr. Deleon today and agree with the above assessment. He is greatly changed from yesterday, is more confused, has a significant gait apraxia and required up to 3 nursing personnel to get him back to bed after he got out of his chair and attempted to walk. He was completely disoriented to time thinking it was 1906, his location was "[place]" and he had no concept of what sort of institution he was in feeling he was at home in his living room. 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 Frankly I suspect he does have some cognitive impairment which may have stepped off in the setting of an infectious illness that we have not defined but we really probably have to go a little further here with a lumbar puncture to be sure there is no low-grade encephalitis and will get a check another EEG to be sure there is no evidence for ongoing potential but nonconvulsive seizure activity and we will check a TSH and a B12 Neurology will be back tomorrow to review the studies we have discussed our recommendations with Marisol Blum MD Sharonda Ruiz was brought into the hospital due to AMS. He is a 77 year old male with a PMH -UTI, AF, esophageal candidiasis, unsteady gait, HTN, DM, exertional dyspnea, anemia, urinary retention, chronic diastolic heart failure, PVD, DM toes, JUAN MANUEL, obesity who presents to the ED via EMS due to a recent seizure. EMS reported the seizure lasted two minutes and they administered the patient versed after the seizure. The had reported he had a decline in the patient �s mental state about an hour and a half ago. he has no history of seizures. He was recently diagnosed with a bladder infection and UTI 3 days ago. His O2 stat was in the 80s and he was started on a oxymask. He was febrile at 38.4 and combative. denies CP, SOB, abdominal pain, one sided weakness, numbness tingling , N, V. chronic indwelling catheter. Currently he has rigors and states he is so cold. He is less oriented today than yesterday. Physical Exam 2 Vital Signs (Past 24 Hours): Last Vital Signs Temp 35.3 C L 08/23/18 12:28 Pulse 84 08/23/18 12:28 Resp 20 08/23/18 12:28 BP 177/77 H 08/23/18 12:28 Pulse Ox 92 08/23/18 12:28 Gen: alert but confused, rigors Perrl/eomi lungs course breath sounds CV irregular no pronator drift strength: generalized weakness Results & Data Laboratory Results Abnormal lab results 08/21/18 08/22/18 08/22/18 Range/Units 05:57 07:01 11:33 RDW Std Deviation (36.4-46.3) fL RDW Coeff of Shadi (11.5-14.5) % BUN (7-18) mg/dl Glucose (70-99) mg/dl POC Glucose 111 H 129 H (70-99) Ur Norhydrocodone 65 A (CUTOFF=50) NG/ML 08/22/18 08/22/18 08/23/18 Range/Units 16:24 20:51 06:16 RDW Std Deviation 53.0 H (36.4-46.3) fL RDW Coeff of Shadi 15.6 H (11.5-14.5) % BUN (7-18) mg/dl Glucose (70-99) mg/dl POC Glucose 142 H 156 H (70-99) Ur Norhydrocodone (CUTOFF=50) NG/ML 08/23/18 08/23/18 08/23/18 Range/Units 06:16 07:19 11:29 RDW Std Deviation (36.4-46.3) fL RDW Coeff of Shadi (11.5-14.5) % BUN 21 H (7-18) mg/dl Glucose 123 H (70-99) mg/dl POC Glucose 161 H 157 H (70-99) Ur Norhydrocodone (CUTOFF=50) NG/ML Diagnostic Findings MRI brain w/wo- No acute intracranial findings, No evidence of intracranial mass No evidence of acute or subacute infarction Moderate white matter disease likely a small vessel basis
--- NOTE | 2018-08-23 14:22 | Infectious Disease Progress Nt ---
Date of Service August 23, 2018 Assessment & Plan (1) Leukocytosis: likely related to seizure, rapid improvement. cultures all negative, could give short course - 3 days of IV abx, but suspect urine culture is colonization. remains afebrile. suspect initial elevation in wbc reactive releated to seizure. can continue abx an additional 24 hours. If remains afebrile and blood cultures remain negative, would stop abx after 3 days. Subjective remains afebrile, wbc 10 blood cultures negative, urine culture with >3 organisms. remains on IV abx. MRI negative for acute disease, neuro treating new onset seizure. 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 related. Physical Exam 2 Vital Signs (Past 24 Hours): Last Vital Signs Temp 36.7 C 08/23/18 13:22 Pulse 84 08/23/18 12:28 Resp 20 08/23/18 12:28 BP 177/77 H 08/23/18 12:28 Pulse Ox 92 08/23/18 12:28 Results & Data Laboratory Results Microbiology 08/21/18 03:56 Blood Blood Culture - Preliminary No growth to date. 08/21/18 03:47 Blood Blood Culture - Preliminary No growth to date. 08/21/18 05:57 Urine,Clean Catch Urine Culture - Final Three types of organisms present, all high counts. Repeat collection recommended. No further identifications or sensitivities to follow.
--- NOTE | 2018-08-23 16:09 | Hospitalist Progress Note ---
Date of Service August 23, 2018 Assessment & Plan (1) New onset seizure: Uncertain etiology. EEG revealed no epileptiform discharges MRI is normal. However, patient is more encephalopathic today than yesterday and is now febrile with rigors. Keppra per Neurology for now. Cont seizure precautions. LP performed this afternoon with negative gram stain and no RBC or WBCs seen on cell count. Mutliple studies/ref tests still pending. Cont supportive care and added Acyclovir empirically pending negative PCR. He was also placed on scheduled compazine on admission, which was stopped. (2) Complicated UTI (urinary tract infection): chronic indwelling patiño. ID consulted. Cont cefepime and Vanc for another day. WRT UTI, course abx completed tomorrow. However, in light of recent fever and clinical decline, would continue them until this tunrs around (3) Chronic indwelling Patiño catheter: Managed by Urology. Catheter changed last week on 08/17. Discuss timing of next change with Urology. (4) Chronic a-fib: Not on anticoagulation as he was deemed a poor candidate. Cont Toprol and ASA 81mg PO daily (5) CIERRA (acute kidney injury): resolved. 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 Cont glargine and Novolog ISS. (7) Open wound of scrotum: per wound care and nursing staff, chronic (8) DVT prophylaxis: No anticoagulants because of bleeding complications in past. SCD's. Ambulate. Full Dispo-pending Neuro recs. Marisol Daly, [facility] Subjective 77 yo M presented via EMS for new onset seizure. He is now more confused today and showing signs of delirium, trying to get up and out of bed to urinate despite having a Patiño in place. LP discussed with , and this was performed this afternoon. ROS could not be obtained 2/2 altered mental status. Physical Exam 2 Vital Signs (Past 24 Hours): Last Vital Signs Temp 36.7 C 08/23/18 13:22 Pulse 84 08/23/18 12:28 Resp 20 08/23/18 12:28 BP 177/77 H 08/23/18 12:28 Pulse Ox 92 08/23/18 12:28 CONSTITUTIONAL: obese, vitals as above, ill-appearing, flushed, diaphoretic EYES: normal conjuctivae, no scleral icterus NECK: trachea midline RESPIRATORY: clear to auscultation bilaterally, no crackles, rales or wheezes, normal respiratory effort CARDIOVASCULAR: regular rate and rhythm, S1 and 2 heard without murmurs, gallops or rubs, no JVD, no peripheral edema GASTROINTESTINAL: soft, nontender, nondistended MUSCULOSKELETAL: strength 5/5 throughout, head is normocephalic and atraumatic , neck supple, normal palpation of chest wall without tenderness SKIN: warm and diaphoretic NEUROLOGIC: CN 2-12 grossly intact PSYCHIATRIC: oriented only to self. Cannot mention the time or why he is here. Results & Data Laboratory Results Short CBC 08/23/18 Range/Units 06:16 WBC 10.02 (4.8-10.8) K/uL Hgb 14.3 (14.0-18.0) g/dL Hct 44.4 (42-52) % Plt Count 268 (130-400) K/uL BMP 08/23/18 06:16 Sodium 136 Potassium 4.1 Chloride 107 Carbon Dioxide 23 BUN 21 H Creatinine 1.10 Glucose 123 H Calcium 8.5 Medications Administered Current Inpatient Medications Acetaminophen (Tylenol) 325 mg PO Q6H PRN PRN Reason: Pain or Fever Stop: 09/20/18 07:03 Last Admin: 08/23/18 18:16 Dose: 325 mg Hydrocodone Bitart/Acetaminophen ([place] 5/325) 1 tab PO Q4H PRN PRN Reason: Pain Stop: 09/04/18 07:03 Last Admin: 08/23/18 19:49 Dose: 1 tab Aspirin (Ecotrin Ectab) 81 mg PO DAILY MARIYA Stop: 09/20/18 08:59 Last Admin: 08/23/18 08:08 Dose: 81 mg Dextrose (Dextrose 50%) 25 - 50 ml IV UD PRN; Protocol PRN Reason: Hypoglycemia Protocol Stop: 09/20/18 07:03 Finasteride (Proscar) 5 mg PO DAILY MARIYA Stop: 09/20/18 08:59 Last Admin: 08/23/18 08:07 Dose: 5 mg Gadobutrol (Gadavist 65ml) 13 ml IV ONCE PRN PRN Reason: Interaction Checking Stop: 08/26/18 19:23 Last Admin: 08/22/18 19:25 Dose: 13 ml Glucagon (Glucagen) 1 mg SQ UD PRN; Protocol PRN Reason: Hypoglycemia Protocol Stop: 09/20/18 07:03 Glucose (Glucose 40%) 15 - 30 gm PO UD PRN; Protocol PRN Reason: Hypoglycemia Protocol Stop: 09/20/18 07:03 Glucose (Dex4 Glucose) 4 - 8 tabs PO UD PRN; Protocol PRN Reason: Hypoglycemia Protocol Stop: 09/20/18 07:03 Lorazepam (Ativan) 1 mg in 2 mls @ 0.5 mls/min IV Q10M PRN PRN Reason: seizures Stop: 09/20/18 07:03 Vancomycin HCl 1,750 mg/ (Sodium Chloride) 535 mls @ 200 mls/hr IV Q12H MARIYA Stop: 09/01/18 21:59 Last Admin: 08/23/18 21:21 Dose: 200 mls/hr Cefepime HCl 2,000 mg/ Syringe 20 mls @ 5 mls/min IV Q12H MARIYA; Protocol Stop: 08/31/18 07:03 Last Admin: 08/23/18 19:23 Dose: 5 mls/min Acyclovir Sodium 775 mg/ (Dextrose) 265.5 mls @ 250 mls/hr IV Q8H MARIYA; Protocol Stop: 09/22/18 16:59 Last Infusion: 08/23/18 18:44 Dose: Infused Insulin Aspart (Novolog Flexpen) 0 units SC ACHS MARIYA Stop: 09/20/18 07:29 Last Admin: 08/23/18 20:29 Dose: 4 units Insulin Glargine (Lantus Solostar Pen) 5 units SQ DAILY MARIYA Stop: 09/20/18 08:59 Last Admin: 08/23/18 08:10 Dose: 5 units Ipratropium Beatty (Atrovent 0.02% 0.5mg/2.5ml) 0.5 mg INH Q4R PRN PRN Reason: Shortness Of Breath Or Wheezing Stop: 09/20/18 07:03 Lactobacillus Acidophilus (Floranex Granules/Powder Packet) 1 gm PO DAILY MARIYA Stop: 09/20/18 08:59 Last Admin: 08/23/18 08:10 Dose: 1 gm Levalbuterol HCl (Xopenex 1.25mg/0.5ml Neb) 1.25 mg INH Q4R PRN PRN Reason: Shortness Of Breath Or Wheezing Stop: 09/20/18 07:03 Levetiracetam (Keppra) 500 mg PO BID [facility] Stop: 09/20/18 20:59 Last Admin: 08/23/18 19:26 Dose: 500 mg Metoprolol Succinate (Toprol Xl) 200 mg PO DAILY MARIYA Stop: 09/20/18 08:59 Last Admin: 08/23/18 08:05 Dose: 200 mg Miscellaneous (Carbohydrates For Hypoglycemia) 15 - 30 gm PO UD PRN PRN Reason: Hypoglycemia Treatment Stop: 09/20/18 07:03 Miscellaneous Information (Consult) 1 ea N/A UD PRN PRN Reason: Consult Stop: 09/20/18 04:53 Miscellaneous Information (Cefepime Consult Active) 1 ea N/A UD PRN PRN Reason: Consult Stop: 09/20/18 07:27 Miscellaneous Information (Pharmacy Consult) 1 ea N/A UD PRN; Protocol PRN Reason: Consult Stop: 09/22/18 16:31 Pantoprazole Sodium (Protonix) 40 mg PO BID [facility] Stop: 09/20/18 08:59 Last Admin: 08/23/18 19:24 Dose: 40 mg Sucralfate (Carafate) 1 gm PO ACHS [facility] Stop: 09/20/18 07:29 Last Admin: 08/23/18 19:24 Dose: 1 gm _ (1) Diabetes mellitus type 2 with complications Diabetes mellitus fdc insulin use: without fdc use Qualified Code (s): E11.8 - Type 2 diabetes mellitus with unspecified complications
[2018-08-23] MEDS ORDERED: [UNRECOGNIZED DRUG - OTHER] PRN (16:32)
[2018-08-23] MEDS: ACYCLOVIR SOD 775 MG in DEXTROSE 5% 250 ML IV SCH ×2 (17:33→23:58)
--- NOTE | 2018-08-23 18:09 | Fluoroscopy Report ---
FL lumbar puncture diagnostic CLINICAL HISTORY: Acute change in mental status. New onset seizure. COMPARISON STUDY: None FLUOROSCOPY TIME: 30 seconds. NUMBER OF FLUOROSCOPIC IMAGES: 1 FINDINGS: A timeout was performed. The risks of the procedure were explained the patient and his . Informed consent was obtained fro m the patient's due to the patient's confused state. The patient was prepped and draped in sterile fashion. The skin was anesthetized 1% lidocaine. Under fluoroscopic guidance, a lumbar puncture was performed the L5-S1 level utilizing a 6 inch 20-ga uge spinal needle. 8 cc of clear CSF was withdrawn via gravity drip and 4 tubes. The fluid was sent for labora tory analysis as specified by the referring clinician. There were no immediate complications. The patient was sent to the floor, for postprocedure observati on.. IMPRESSION: 1. Successful fluoroscopically guided diagnostic lumbar puncture performed at the L5-S1 level 2. 8 cc of clear CSF was withdrawn via gravity drip and sent for laboratory analysis as specified by the referring clinician Electronically signed by: Esau Rosa M.D. 08/23/2018 6:08 PM
[2018-08-23] MEDS: ACETAMINOPHEN 325 MG TAB PO PRN (18:16)
[2018-08-23 19:42] LABS: CSF Glucose 77 mg/dl (40-70); Total Protein CSF 66.7 mg/dl (15-45)
[2018-08-23 20:12] LABS: Appearance CSF Clear; CSF Xanthrochromic No xanthochromia; Color CSF Colorless
[2018-08-23 20:13] LABS: Red Blood Cell CSF (A) 0 /uL (0-)
[2018-08-23 20:16] LABS: White Blood Cell CSF (A) 0 /uL (0-5)
[2018-08-24] MEDS ORDERED: FUROSEMIDE 40 MG/4 ML VIAL IV ONE (00:56)
[2018-08-24] MEDS ORDERED: ACETAMINOPHEN 325 MG TAB ONE (01:00)
[2018-08-24] MEDS ORDERED: Nursing to Pharmacy 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 ONE (01:20)
[2018-08-24 01:32] LABS: Basophils # (auto) 0.03 K/uL (0-0.2); Basophils % (auto) 0.2 %; Eosinophils # (auto) 0.18 K/uL (0-0.5); Eosinophils % (auto) 1.1 %; Hematocrit (blood only) 44.7 % (42-52); Hemoglobin 14.9 g/dL (14.0-18.0); Immature Granulocytes # (auto) 0.08 K/uL (0.00-0.02); Immature Granulocytes % (auto) 0.5 %; Lymphocytes % (auto) 8.9 %; Mean Corpuscular Hgb Conc 33.3 g/dL (32-36); Mean Corpuscular Volume 91.4 fL (80-100); Monocytes # (auto) 0.59 K/uL (0.11-0.59); Monocytes % (auto) 3.8 %; Neutrophils # (auto) 13.43 K/uL (1.4-6.5); Neutrophils % (auto) 85.5 %; Platelet Count 279 K/uL (130-400); RDW Coefficient of Variation 15.5 % (11.5-14.5); RDW Standard Deviation 51.6 fL (36.4-46.3); Red Blood Count 4.89 M/uL (4.7-6.1); White Blood Count 15.71 K/uL (4.8-10.8)
[2018-08-24] MEDS ORDERED: ACETAMINOPHEN 325 MG TAB PO PRN (01:32)
[2018-08-24 01:36] LABS: HCO3 ABG 20 mmol/L (19-24); Oxygen Saturation ABG 99.4 % (90-95); PCO2 ABG 32 mmHg (35-46); PO2 ABG 175 mm/Hg (80-95)
[2018-08-24 01:38] LABS: Allen Test POS (Pos)
[2018-08-24 01:49] LABS: BUN Creatinine Ratio 16.4 (10-20); Calcium 7.7 mg/dl (8.5-10.1); Creatinine Clr Calc Pharmacy 77.3 ml/min; Est GFR (African American) 74.7; Est GFR (Non-African American) 64.4; Potassium 4.3 mmol/L (3.5-5.1)
[2018-08-24] MEDS ORDERED: MoRPHine SULFATE 4 MG/ML 1 ML CARP\\VIAL IV STA (01:51)
[2018-08-24 01:54] LABS: Albumin Globulin Ratio 0.6 (0.9-2); Bilirubin,Total 0.8 mg/dl (0.2-1); Globulin 5.1 gm/dl (2.5-4.0); Total Protein 8.1 gm/dl (6.4-8.2); Troponin I 0.029 ng/ml (0-0.045)
[2018-08-24] MEDS ORDERED: FUROSEMIDE 20 MG in SYRINGE 0 ML IV ONE ×2 (01:54→02:00)
[2018-08-24] MEDS ORDERED: MoRPHine SULFATE 4 MG/ML 1 ML CARP\\VIAL ONE (01:57)
[2018-08-24 06:06] LABS: Hematocrit (blood only) 39.2 % (42-52); Hemoglobin 12.7 g/dL (14.0-18.0); Mean Corpuscular Hgb Conc 32.4 g/dL (32-36); Mean Corpuscular Volume 91.2 fL (80-100); Mean Platelet Volume 9.7 fL (7.4-10.4); Platelet Count 233 K/uL (130-400); RDW Coefficient of Variation 15.3 % (11.5-14.5); RDW Standard Deviation 50.9 fL (36.4-46.3)
[2018-08-24] MEDS: CEFEPIME 2,000 MG in SYRINGE 7.5 ML IV SCH (06:37)
--- NOTE | 2018-08-24 06:43 | XRay Report ---
XR chest 1V portable CLINICAL HISTORY: congestion SHORTNESS OF BREATH COMPARISON STUDY: August 22, 2018 FINDINGS: The heart is enlarged. Since the prior study, the patient developed interstitial pulmonary edema. No significant pleural effusions are visualized. There is no lobar consolidation.[ IMPRESSION: Interval development of interstitial pulmonary edema. Electronically signed by: Esau Rosa M.D. 08/24/2018 6:42 AM
[2018-08-24 06:45] LABS: BUN Creatinine Ratio 15.7 (10-20); Calcium 7.9 mg/dl (8.5-10.1); Est GFR (African American) 70.7; Potassium 3.9 mmol/L (3.5-5.1)
[2018-08-24 06:56] LABS: Troponin I 0.045 ng/ml (0-0.045)
[2018-08-24 07:47] LABS: Folate (Folic Acid) 8.58 ng/ml (>5.38)
[2018-08-24] MEDS: LACTOBACILLUS ACIDOPHILUS 1 GM PACK PO SCH (07:51)
[2018-08-24] MEDS: levETIRAcetam 500 MG TAB PO SCH ×2 (07:51→20:15)
[2018-08-24] MEDS: ASPIRIN 81 MG ECTAB PO SCH (07:52)
[2018-08-24] MEDS: FINASTERIDE 5 MG TAB PO SCH (07:52)
[2018-08-24] MEDS: PANTOprazole 40 MG TAB PO SCH ×2 (07:52→20:15)
[2018-08-24] MEDS: METOPROLOL SUCC 50MG EXT REL TAB PO SCH (07:52)
[2018-08-24] MEDS: INSULIN GLARGINE SOLOSTAR 100 UNITS/ML 3 ML PEN SQ SCH (07:55)
[2018-08-24] MEDS: INSULIN ASPART 100 UNITS/ML 3 ML PEN SC SCH ×4 (07:55→20:15)
[2018-08-24] MEDS: ACYCLOVIR SOD 775 MG in DEXTROSE 5% 250 ML IV SCH ×2 (08:58→16:58)
[2018-08-24] MEDS ORDERED: VANCOMYCIN TROUGH ONE (09:30)
[2018-08-24] MEDS: HYDROCODONE/ACETAMOPHEN 5/325MG TAB PO PRN ×2 (09:40→22:00)
[2018-08-24] MEDS: VANCOMYCIN HCL 1,750 MG in SODIUM CHLORIDE 0.9% 500 ML IV SCH (10:13)
--- NOTE | 2018-08-24 10:31 | Infectious Disease Progress Nt ---
Date of Service August 24, 2018 Assessment & Plan (1) Leukocytosis: likely related to seizure, rapid improvement. cultures all negative, could give short course - 3 days of IV abx, but suspect urine culture is colonization.suspect initial elevation in wbc reactive releated to seizure. LP negative, doubt meningitis. If cultures negative, would follow off of abx. repeat blood cultures pending, no additional fevers noted. clinically stable on my exam today. Subjective had isolated fever yesterday, tmax 38.7 now afebrile, wbc 11 blood cultures negative, urine culture with >3 organisms. remains on IV abx. MRI negative for acute disease, neuro treating new onset seizure. 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 related. pt uderwent LP yesterday due to fevers, 0wbc, elevated protein and glucose. CSF culture pending gram stain negative for organisms. crypto antigen negative. now on IV acyclovir pending hsv pcr. pt states he feels well today, denies f/c. no godinez, no neck pain, no cp,sob,cough, no n/v/d/ abd pain, asking to go home. tolerating abx well. all remaining ros reviewed and are negative. Physical Exam 2 Vital Signs (Past 24 Hours): Last Vital Signs Temp 36.5 C 08/24/18 07:30 Pulse 84 08/24/18 07:30 Resp 20 08/24/18 07:30 BP 142/77 H 08/24/18 07:30 Pulse Ox 94 08/24/18 07:30 Constitutional: WD/WN, vitals as above Eyes: PERRL, conjunctivae normal, anicteric sclerae ENMT: external ear and nose normal, oropharynx normal Neck: normal visual inspection; no nuchal rigidity Respiratory: normal respiratory effort, lungs clear to auscultation Cardiovascular: RRR, no murmur, no edema Gastrointestinal (Abdomen): normal bowel sounds, soft, nontender, no hepatosplenomegaly Musculoskeletal: no cyanosis or clubbing, extremities motor strength 5/5 Skin: no rashes, warm and dry Psychiatric: A+Ox3, euthymic affect Results & Data Laboratory Results Microbiology 08/23/18 Unknown Cerebral Spinal Fluid Gram Stain - Final 08/23/18 Unknown Cerebral Spinal Fluid Cryptococcal Antigen - Final 08/21/18 03:56 Blood Blood Culture - Preliminary No growth to date. 08/21/18 03:47 Blood Blood Culture - Preliminary No growth to date. 08/21/18 05:57 Urine,Clean Catch Urine Culture - Final Three types of organisms present, all high counts. Repeat collection recommended. No further identifications or sensitivities to follow.
--- NOTE | 2018-08-24 11:13 | Pharmacy Report ---
Pharmacy Abx Dose Short Note - Date of Service August 24, 2018 - Assessment & Plan Assessment 77 year old M receiving vancomycin and cefepime for treatment of altered mental status Day # 4 of antimicrobial therapy. Plan Vancomycin * Trough level of 26.5 mcg/mL is supratherapeutic * Change to 1750 mg IV every 18 hours (30% dose reduction plus start dose 20 hours after last dose) * Goal trough level for possible [employer] infection : 15 to 20 mcg/mL * Trough ordered for: 08/26/18 Pharmacy will continue to follow and will adjust dose/frequency as necessary. Thank you.
--- NOTE | 2018-08-24 13:52 | Procedure Note ---
EEG Procedure Note Date of Service August 24, 2018 Start / End Times Start Time: 08:36 End Time: 08:56 Referring Physician Magdalena Sheehan PA-C History A 77 year old male admitted with encephalopathy. EEG performed for evaluation of epileptiform activity. Home Medication List Home Medications Medication Instructions Recorded Confirmed Type Lactobacillus acidophilus 10,000 mmu cells PO DAILY 06/16/18 08/21/18 History [Acidophilus] aspirin 81 mg PO DAILY 06/16/18 08/21/18 History digoxin 125 mcg PO DAILY 06/16/18 08/21/18 History ferrous sulfate 325 mg PO BID 06/16/18 08/21/18 History finasteride 5 mg PO DAILY 06/16/18 08/21/18 History furosemide 20 mg PO DAILY 06/16/18 08/21/18 History losartan 50 mg PO DAILY 06/16/18 08/21/18 History metformin 500 mg PO TIDM 06/16/18 08/21/18 History metoprolol succinate 200 mg PO DAILY 06/16/18 08/21/18 History pantoprazole 40 mg PO BID 06/16/18 08/21/18 History potassium chloride 10 meq PO DAILY 06/16/18 08/21/18 History sucralfate 10 ml PO ACHS #100 ml 06/28/18 08/21/18 Rx tramadol 50 mg PO Q6 PRN #10 tab 06/28/18 08/21/18 Rx amoxicillin 500 mg PO TID 08/21/18 08/21/18 History simethicone [Mi-Acid Gas Relief] 80 mg PO Q6H PRN 08/21/18 08/21/18 History Inpatient Medication List Acetaminophen (Tylenol) 650 mg PO Q4H PRN PRN Reason: Pain or Fever Stop: 09/23/18 01:31 Last Admin: 08/24/18 01:00 Dose: 650 mg Hydrocodone Bitart/Acetaminophen ([place] 5/325) 1 tab PO Q4H PRN PRN Reason: Pain Stop: 09/04/18 07:03 Last Admin: 08/24/18 09:40 Dose: 1 tab Admin: 08/23/18 19:49 Dose: 1 tab Admin: 08/23/18 06:02 Dose: 1 tab Admin: 08/22/18 22:19 Dose: 1 tab Admin: 08/22/18 02:42 Dose: 1 tab Admin: 08/21/18 20:09 Dose: 1 tab Aspirin (Ecotrin Ectab) 81 mg PO DAILY [facility] Stop: 09/20/18 08:59 Last Admin: 08/24/18 07:52 Dose: 81 mg Admin: 08/23/18 08:08 Dose: 81 mg Admin: 08/22/18 08:37 Dose: 81 mg Admin: 08/21/18 09:10 Dose: 81 mg Finasteride (Proscar) 5 mg PO DAILY [facility]IYA Stop: 09/20/18 08:59 Last Admin: 08/24/18 07:52 Dose: 5 mg Admin: 08/23/18 08:07 Dose: 5 mg Admin: 08/22/18 08:37 Dose: 5 mg Admin: 08/21/18 09:10 Dose: 5 mg Gadobutrol (Gadavist 65ml) 13 ml IV ONCE PRN PRN Reason: Interaction Checking Stop: 08/26/18 19:23 Last Admin: 08/22/18 19:25 Dose: 13 ml Acyclovir Sodium 775 mg/ (Dextrose) 265.5 mls @ 250 mls/hr IV Q8H [facility]; Protocol Stop: 09/02/18 16:59 Last Infusion: 08/24/18 10:13 Dose: 0 mls/hr Admin: 08/24/18 08:58 Dose: 250 mls/hr Infusion: 08/24/18 02:44 Dose: 0 mls/hr Admin: 08/23/18 23:58 Dose: 250 mls/hr Infusion: 08/23/18 18:44 Dose: 0 mls/hr Admin: 08/23/18 17:33 Dose: 250 mls/hr Insulin Aspart (Novolog Flexpen) 0 units SC ACHS [facility] Stop: 09/20/18 07:29 Last Admin: 08/24/18 12:18 Dose: 4 units Admin: 08/24/18 07:55 Dose: 4 units Admin: 08/23/18 20:29 Dose: 4 units Admin: 08/23/18 17:32 Dose: Not Given Admin: 08/23/18 11:52 Dose: 4 units Admin: 08/23/18 08:09 Dose: 4 units Admin: 08/22/18 21:01 Dose: 1 units Admin: 08/22/18 17:24 Dose: 5 units Admin: 08/22/18 12:37 Dose: 4 units Admin: 08/22/18 08:34 Dose: 3 units Admin: 08/21/18 20:05 Dose: Not Given Admin: 08/21/18 17:37 Dose: 1 units Admin: 08/21/18 12:26 Dose: 1 units Admin: 08/21/18 09:06 Dose: 2 units Insulin Glargine (Lantus Solostar Pen) 5 units SQ DAILY MARIYA Stop: 09/20/18 08:59 Last Admin: 08/24/18 07:55 Dose: 5 units Admin: 08/23/18 08:10 Dose: 5 units Admin: 08/22/18 08:35 Dose: 5 units Admin: 08/21/18 09:06 Dose: 5 units Lactobacillus Acidophilus (Floranex Granules/Powder Packet) 1 gm PO DAILY MARIYA Stop: 09/20/18 08:59 Last Admin: 08/24/18 07:51 Dose: 1 gm Admin: 08/23/18 08:10 Dose: 1 gm Admin: 08/22/18 08:37 Dose: 1 gm Admin: 08/21/18 09:10 Dose: 1 gm Levetiracetam (Keppra) 500 mg PO BID [facility] Stop: 09/20/18 20:59 Last Admin: 08/24/18 07:51 Dose: 500 mg Admin: 08/23/18 19:26 Dose: 500 mg Admin: 08/23/18 08:06 Dose: 500 mg Admin: 08/22/18 21:00 Dose: 500 mg Admin: 08/22/18 08:37 Dose: 500 mg Admin: 08/21/18 20:00 Dose: 500 mg Metoprolol Succinate (Toprol Xl) 200 mg PO DAILY MARIYA Stop: 09/20/18 08:59 Last Admin: 08/24/18 07:52 Dose: 200 mg Admin: 08/23/18 08:05 Dose: 200 mg Admin: 08/22/18 08:38 Dose: 200 mg Admin: 08/21/18 09:11 Dose: 200 mg Pantoprazole Sodium (Protonix) 40 mg PO BID [facility] Stop: 09/20/18 08:59 Last Admin: 08/24/18 07:52 Dose: 40 mg Admin: 08/23/18 19:24 Dose: 40 mg Admin: 08/23/18 08:05 Dose: 40 mg Admin: 08/22/18 21:00 Dose: 40 mg Admin: 08/22/18 08:37 Dose: 40 mg Admin: 08/21/18 20:00 Dose: 40 mg Admin: 08/21/18 09:10 Dose: 40 mg Sucralfate (Carafate) 1 gm PO ACHS [facility] Stop: 09/20/18 07:29 Last Admin: 08/23/18 19:24 Dose: 1 gm Admin: 08/23/18 17:33 Dose: 1 gm Admin: 08/23/18 11:52 Dose: 1 gm Admin: 08/23/18 06:30 Dose: 1 gm Admin: 08/22/18 21:00 Dose: 1 gm Admin: 08/22/18 17:24 Dose: 1 gm Admin: 08/22/18 12:36 Dose: 1 gm Admin: 08/22/18 08:37 Dose: 1 gm Admin: 08/21/18 19:55 Dose: 1 gm Admin: 08/21/18 17:35 Dose: 1 gm Admin: 08/21/18 12:09 Dose: 1 gm Admin: 08/21/18 09:10 Dose: 1 gm Discontinued Medications Acetaminophen (Tylenol) 325 mg PO Q6H PRN PRN Reason: Pain or Fever Stop: 09/20/18 07:03 Last Admin: 08/23/18 18:16 Dose: 325 mg Admin: 08/21/18 10:09 Dose: 325 mg Acetaminophen (Tylenol) Confirm Administered Dose 650 mg .ROUTE .STK-MED ONE Stop: 08/24/18 01:01 Last Admin: 08/24/18 02:03 Dose: Not Given Ferrous Sulfate (Feosol) 325 mg PO BID [facility] Stop: 09/20/18 08:59 Last Admin: 08/23/18 19:25 Dose: 325 mg Admin: 08/23/18 08:06 Dose: 325 mg Admin: 08/22/18 21:00 Dose: 325 mg Admin: 08/22/18 08:37 Dose: 325 mg Admin: 08/21/18 20:01 Dose: 325 mg Admin: 08/21/18 09:10 Dose: 325 mg Furosemide (Lasix) Confirm Administered Dose 40 mg IV .STK-MED ONE Stop: 08/24/18 00:57 Last Admin: 02/22/19 02:03 Dose: Not Given Sodium Chloride (Nss 1000ml) 1,000 mls @ 125 mls/hr IV .Q8H MARIYA Stop: 09/20/18 03:44 Last Infusion: 08/21/18 07:31 Dose: 0 mls/hr Admin: 08/21/18 04:22 Dose: 125 mls/hr Sodium Chloride (Nss 1000ml) 500 mls @ 999 mls/hr IV .Q31M ONE Stop: 08/21/18 05:00 Last Infusion: 08/21/18 05:21 Dose: 0 mls/hr Admin: 08/21/18 04:46 Dose: 999 mls/hr Acetaminophen (Ofirmev) 65 mls @ 200 mls/hr IV NOW ONE Stop: 08/21/18 05:10 Last Infusion: 08/21/18 05:32 Dose: 0 mls/hr Admin: 08/21/18 05:13 Dose: 200 mls/hr Ceftriaxone Sodium 2,000 mg/ (Dextrose) 70 mls @ 100 mls/hr IV NOW STA Stop: 08/21/18 05:35 Last Infusion: 08/21/18 07:32 Dose: 0 mls/hr Admin: 08/21/18 05:53 Dose: 100 mls/hr Vancomycin HCl 2,750 mg/ (Sodium Chloride) 555 mls @ 200 mls/hr IV NOW ONE Stop: 08/21/18 07:40 Last Infusion: 08/21/18 08:11 Dose: 0 mls/hr Admin: 08/21/18 05:21 Dose: 200 mls/hr Levetiracetam 1,000 mg/ (Dextrose) 110 mls @ 440 mls/hr IV NOW STA Stop: 08/21/18 06:03 Last Infusion: 08/21/18 07:31 Dose: 0 mls/hr Admin: 08/21/18 06:51 Dose: 440 mls/hr Sodium Chloride (Nss 1000ml) 1,000 mls @ 200 mls/hr IV .Q5H MARIYA Stop: 08/21/18 13:03 Last Infusion: 08/21/18 17:56 Dose: 0 mls/hr Admin: 08/21/18 12:09 Dose: 200 mls/hr Infusion: 08/21/18 12:09 Dose: 0 mls/hr Admin: 08/21/18 07:30 Dose: 200 mls/hr Cefepime HCl 2,000 mg/ Syringe 20 mls @ 5 mls/min IV 0730 ONE Stop: 08/21/18 07:33 Last Admin: 08/21/18 09:01 Dose: 5 mls/min Cefepime HCl 2,000 mg/ Syringe 20 mls @ 5 mls/min IV Q24H [facility]IYA; Protocol Stop: 08/30/18 07:03 Last Admin: 08/23/18 08:01 Dose: 5 mls/min Admin: 08/22/18 06:11 Dose: 5 mls/min Vancomycin HCl 1,750 mg/ (Sodium Chloride) 535 mls @ 200 mls/hr IV Q16H [facility] Stop: 08/31/18 17:59 Last Infusion: 08/22/18 12:34 Dose: 0 mls/hr Admin: 08/22/18 09:36 Dose: 200 mls/hr Infusion: 08/21/18 22:04 Dose: 0 mls/hr Admin: 08/21/18 17:55 Dose: 200 mls/hr Sodium Chloride (Nss) 500 mls @ 250 mls/hr IV .Q2H [facility]IYA Stop: 08/21/18 20:44 Last Infusion: 08/21/18 22:04 Dose: 0 mls/hr Admin: 08/21/18 19:54 Dose: 250 mls/hr Vancomycin HCl 1,750 mg/ (Sodium Chloride) 535 mls @ 200 mls/hr IV Q12H [facility] Stop: 09/01/18 21:59 Last Infusion: 08/24/18 11:29 Dose: 0 mls/hr Admin: 08/24/18 10:13 Dose: 200 mls/hr Infusion: 08/23/18 23:58 Dose: 0 mls/hr Admin: 08/23/18 21:21 Dose: 200 mls/hr Infusion: 08/23/18 13:55 Dose: 0 mls/hr Admin: 08/23/18 10:08 Dose: 200 mls/hr Infusion: 08/23/18 00:47 Dose: 0 mls/hr Admin: 08/22/18 21:43 Dose: 200 mls/hr Cefepime HCl 2,000 mg/ Syringe 20 mls @ 5 mls/min IV Q12H [facility]; Protocol Stop: 08/31/18 07:03 Last Admin: 08/24/18 06:37 Dose: 5 mls/min Admin: 08/23/18 19:23 Dose: 5 mls/min Furosemide 20 mg/ Syringe 2 mls @ 4 mls/min IV TODAY@0200 ONE Stop: 08/24/18 02:01 Last Admin: 08/24/18 02:02 Dose: 4 mls/min Metoprolol Tartrate (Lopressor) 5 mg IV Q5M PRN PRN Reason: Tachycardia Stop: 09/20/18 03:44 Last Admin: 08/21/18 04:25 Dose: 5 mg Morphine Sulfate (Morphine Sulfate) 3 mg IV NOW STA Stop: 08/24/18 01:52 Last Admin: 08/24/18 02:03 Dose: 3 mg Morphine Sulfate (Morphine Sulfate) Confirm Administered Dose 4 mg .ROUTE .STK- MED ONE Stop: 08/24/18 01:58 Last Admin: 08/24/18 02:03 Dose: Not Given Description This is a 21 electrode EEG with a single channel dedicated to limited EKG. The electrodes were placed in accordance with the International 10-20 system. At the onset the EEG the patient is in an altered mental state. The background is symmetric and consist of 6-7 theta activity with some intermittent faster activity. Intermittent photic stimulation does not elicit any abnormalities. No stage II sleep transients are recorded. IMPRESSION: This is an abnormal routine EEG in a patient with altered mentation due to diffuse backgound slowing suggestive of a non specific encephalopathy. There is no evidence of epileptiform activity.
--- NOTE | 2018-08-24 14:32 | Neurology Progress Note ---
Date of Service August 24, 2018 Assessment & Plan (1) New onset seizure: 1. EEG with no seizure focus- global slowing- repeat no focal seizure- global slowing 2. CT head- no acute findings 3. hypoxemic at presentation- could cause seizure like activity along with infection-elevated WBC and fever 4. continue seizure medication will see in out patient and order 72 hour EEG to evaluate if needed or can be stopped 5. medical management per primary team 6. ID for treatment of infection 7. MRI brain - no stroke on MRI 8. would continue aspirin and optimize DM, HTN, HLD LDL <70 9. continue Keppra 500 mg BID will re evaluate as out patient. 10. CXR- pulmonary edema- may need cardiology or pulmonary to weigh in 11. PT/OT evaluate for discharge needs will follow up as outpatient in our clinic in 4-6 weeks with Magdalena Sheehan PAC, neurology schedule will be available for any further questions concerns. Supervising Physician Co-Signing Physician Notes I have seen and discussed above patient with Dr Jomar Garcia. Patient was seen and examined. I agree with Magdalena Sheehan PA-C as noted below. at bedside. Patient appears improved since yesterday. He is awake and alert. Comprehension intact. Disoriented to time. Repeat EEG showed generalized slowing. No epileptiform activity. CSF studies reviewed. Mildly elevated protein , mildly elevated glucose, and 0 WBC. CSF not suggestive of meningitis or encephalitis. HSV pending. reports she is fairly certain she witnessed patient have a seizure. No history of seizures. reports patient was diagnosed with UTI one week ago and patiño catheter was replaced. Has been recieving IV abx. Unclear if patient had a symptomatic seizure secondary to UTI. Patient appears to be improving. Recommend to continue Keppra 500 mg BID on discharge. Will need to follow up in our clinic in 8 weeks after discharge. Will continue to follow remotely. Please call me with any further questions or concerns. Sharonda Ruiz was brought into the hospital due to AMS. He is a 77 year old male with a PMH -UTI, AF, esophageal candidiasis, unsteady gait, HTN, DM, exertional dyspnea, anemia, urinary retention, chronic diastolic heart failure, PVD, DM toes, JUAN MANUEL, obesity who presents to the ED via EMS due to a recent seizure. EMS reported the seizure lasted two minutes and they administered the patient versed after the seizure. The had reported he had a decline in the patient �s mental state about an hour and a half ago. he has no history of seizures. He was recently diagnosed with a bladder infection and UTI 3 days ago. His O2 stat was in the 80s and he was started on a oxymask. He was febrile at 38.4 and combative. denies CP, SOB, abdominal pain, one sided weakness, numbness tingling , N, V. chronic indwelling catheter. Currently he is sitting up in bed and is more oriented today. denies CP, SOB, abdominal pain, weakness, numbness tingling, N, V. 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, hip flex 5/5 bilaterally up going toes finger to nose no bipass no tremor, no cog wheeling no pronator drift Results & Data Laboratory Results Abnormal lab results 08/23/18 08/23/18 08/23/18 Range/Units 16:14 20:09 Unknown WBC (4.8-10.8) K/uL RBC (4.7-6.1) M/uL Hgb (14.0-18.0) g/dL Hct (42-52) % RDW Std Deviation (36.4-46.3) fL RDW Coeff of Shadi (11.5-14.5) % Immature Gran # (Auto) (0.00-0.02) K/uL Neut # (Auto) (1.4-6.5) K/uL ABG pCO2 (35-46) mmHg ABG pO2 (80-95) mm/Hg ABG O2 Saturation (90-95) % Sodium (136-145) mmol/L Carbon Dioxide (21-32) mmol/L Glucose (70-99) mg/dl POC Glucose 134 H 137 H (70-99) Lactate (0.4-2.0) mmol/L Calcium (8.5-10.1) mg/dl AST (15-37) U/L Albumin (3.4-5.0) gm/dl Globulin (2.5-4.0) gm/dl Albumin/Globulin Ratio (0.9-2) CSF Glucose 77 H (40-70) mg/dl CSF Total Protein 66.7 H (15-45) mg/dl 08/24/18 08/24/18 08/24/18 Range/Units 01:22 01:22 01:22 WBC 15.71 H (4.8-10.8) K/uL RBC (4.7-6.1) M/uL Hgb (14.0-18.0) g/dL Hct (42-52) % RDW Std Deviation 51.6 H (36.4-46.3) fL RDW Coeff of Shadi 15.5 H (11.5-14.5) % Immature Gran # (Auto) 0.08 H (0.00-0.02) K/uL Neut # (Auto) 13.43 H (1.4-6.5) K/uL ABG pCO2 32 L (35-46) mmHg ABG pO2 175 H (80-95) mm/Hg ABG O2 Saturation 99.4 H (90-95) % Sodium 133 L (136-145) mmol/L Carbon Dioxide 20 L (21-32) mmol/L Glucose 150 H (70-99) mg/dl POC Glucose (70-99) Lactate (0.4-2.0) mmol/L Calcium 7.7 L (8.5-10.1) mg/dl AST 53 H (15-37) U/L Albumin 3.0 L (3.4-5.0) gm/dl Globulin 5.1 H (2.5-4.0) gm/dl Albumin/Globulin Ratio 0.6 L (0.9-2) CSF Glucose (40-70) mg/dl CSF Total Protein (15-45) mg/dl 08/24/18 08/24/18 08/24/18 Range/Units 01:30 05:55 05:55 WBC 11.40 H (4.8-10.8) K/uL RBC 4.30 L (4.7-6.1) M/uL Hgb 12.7 L (14.0-18.0) g/dL Hct 39.2 L (42-52) % RDW Std Deviation 50.9 H (36.4-46.3) fL RDW Coeff of Shadi 15.3 H (11.5-14.5) % Immature Gran # (Auto) (0.00-0.02) K/uL Neut # (Auto) (1.4-6.5) K/uL ABG pCO2 (35-46) mmHg ABG pO2 (80-95) mm/Hg ABG O2 Saturation (90-95) % Sodium 135 L (136-145) mmol/L Carbon Dioxide (21-32) mmol/L Glucose 145 H (70-99) mg/dl POC Glucose (70-99) Lactate 3.1 H* (0.4-2.0) mmol/L Calcium 7.9 L (8.5-10.1) mg/dl AST (15-37) U/L Albumin (3.4-5.0) gm/dl Globulin (2.5-4.0) gm/dl Albumin/Globulin Ratio (0.9-2) CSF Glucose (40-70) mg/dl CSF Total Protein (15-45) mg/dl 08/24/18 08/24/18 Range/Units 07:12 11:18 WBC (4.8-10.8) K/uL RBC (4.7-6.1) M/uL Hgb (14.0-18.0) g/dL Hct (42-52) % RDW Std Deviation (36.4-46.3) fL RDW Coeff of Shadi (11.5-14.5) % Immature Gran # (Auto) (0.00-0.02) K/uL Neut # (Auto) (1.4-6.5) K/uL ABG pCO2 (35-46) mmHg ABG pO2 (80-95) mm/Hg ABG O2 Saturation (90-95) % Sodium (136-145) mmol/L Carbon Dioxide (21-32) mmol/L Glucose (70-99) mg/dl POC Glucose 154 H 122 H (70-99) Lactate (0.4-2.0) mmol/L Calcium (8.5-10.1) mg/dl AST (15-37) U/L Albumin (3.4-5.0) gm/dl Globulin (2.5-4.0) gm/dl Albumin/Globulin Ratio (0.9-2) CSF Glucose (40-70) mg/dl CSF Total Protein (15-45) mg/dl Diagnostic Findings LP- 1. Successful fluoroscopically guided diagnostic lumbar puncture performed at the L5-S1 level 8 cc of clear CSF was withdrawn via gravity drip and sent for laboratory analysis as specified by the referring clinician CXR-Interval development of interstitial pulmonary edema.
[2018-08-24] MEDS ORDERED: CEFEPIME 2,000 MG in SYRINGE 7.5 ML IV SCH (15:00)
--- NOTE | 2018-08-24 16:20 | Hospitalist Progress Note ---
Date of Service August 24, 2018 Assessment & Plan (1) Encephalopathy acute: Possibly metabolic from infection vs drug related in setting of scheduled compazine. ?encephalitis with fever and rigors yeseterday, improved with acyclovir initiation. Today, patient is lucid and back to baseline with viral CSF studies pending. (2) Acute diastolic (congestive) heart failure: Hypoxia and pulmonary edema overnight likely 2/2 recent fluid resuscitation and having home diuretic held on admission in the setting of sepsis. Lasix IV given with improvement. Lungs clear to auscultation. Cont oxygen supplementation and titrate off hopefully later today. Cont daily furosemide 20mg per home regimen. (3) New onset seizure: Uncertain etiology. EEG revealed no epileptiform discharges MRI is normal. Increased encephalopathy yesteray is now improved. Interestingly, he was on scheduled compazine, which I discontinued. Also, he was started on acyclovir around the LP which so far is negative. Viral studies are still pending. Cont acyclovir until HSV PCR is negative. No further seizure activity was seen. He is improved today from a mental status standpoint, now afebrile and without rigors or chills. (4) Complicated UTI (urinary tract infection): chronic indwelling patiño. ID consulted. UCx negative and ID suspects colonization. Patient is asymptomatic. Stopping antibiotics at this time in the setting of no obvious bacterial infection and in the setting of prior c- diff. (5) Chronic indwelling Patiño catheter: Managed by Urology. Catheter changed last week on 08/17. (6) Chronic a-fib: Not on anticoagulation as he was deemed a poor candidate. Cont Toprol and ASA 81mg PO daily (7) CIERRA (acute kidney injury): resolved. (8) Diabetes mellitus type 2 with complications: Inpatient sugar at goal. Cont glargine and Novolog ISS. (9) Open wound of scrotum: per wound care and nursing staff, chronic (10) DVT prophylaxis: No anticoagulants because of bleeding complications in past. SCD's. Ambulate. Full Dispo-pending Neuro recs. Marisol Daly DO [facility] Subjective much improved today lucid overnight developed SOB but improved after treatment otherwise no symptoms awaiting new bed to help with comfort in setting of scrotal wound which is chronic. Physical Exam 2 Vital Signs (Past 24 Hours): Last Vital Signs Temp 36.4 C L 08/24/18 15:47 Pulse 70 08/24/18 15:47 Resp 20 08/24/18 15:47 BP 124/70 08/24/18 15:47 Pulse Ox 95 08/24/18 15:47 CONSTITUTIONAL: obese, vitals as above, well-appearing EYES: normal conjuctivae, no scleral icterus NECK: trachea midline RESPIRATORY: clear to auscultation bilaterally, no crackles, rales or wheezes, normal respiratory effort CARDIOVASCULAR: regular rate and rhythm, S1 and 2 heard without murmurs, gallops or rubs, no JVD, no peripheral edema GASTROINTESTINAL: soft, nontender, nondistended MUSCULOSKELETAL: strength 5/5 throughout, head is normocephalic and atraumatic , neck supple, normal palpation of chest wall without tenderness SKIN: warm and dry NEUROLOGIC: CN 2-12 grossly intact PSYCHIATRIC: alert and oriented Results & Data Laboratory Results Cardiac Enzymes 08/24/18 Range/Units 05:55 Troponin I 0.045 (0-0.045) ng/ml Medications Administered Current Inpatient Medications Acetaminophen (Tylenol) 650 mg PO Q4H PRN PRN Reason: Pain or Fever Stop: 09/23/18 01:31 Last Admin: 08/24/18 01:00 Dose: 650 mg Hydrocodone Bitart/Acetaminophen ([place] 5/325) 1 tab PO Q4H PRN PRN Reason: Pain Stop: 09/04/18 07:03 Last Admin: 08/25/18 02:03 Dose: 1 tab Aspirin (Ecotrin Ectab) 81 mg PO DAILY MARIYA Stop: 09/20/18 08:59 Last Admin: 08/24/18 07:52 Dose: 81 mg Dextrose (Dextrose 50%) 25 - 50 ml IV UD PRN; Protocol PRN Reason: Hypoglycemia Protocol Stop: 09/20/18 07:03 Finasteride (Proscar) 5 mg PO DAILY MARIYA Stop: 09/20/18 08:59 Last Admin: 08/24/18 07:52 Dose: 5 mg Gadobutrol (Gadavist 65ml) 13 ml IV ONCE PRN PRN Reason: Interaction Checking Stop: 08/26/18 19:23 Last Admin: 08/22/18 19:25 Dose: 13 ml Glucagon (Glucagen) 1 mg SQ UD PRN; Protocol PRN Reason: Hypoglycemia Protocol Stop: 09/20/18 07:03 Glucose (Glucose 40%) 15 - 30 gm PO UD PRN; Protocol PRN Reason: Hypoglycemia Protocol Stop: 09/20/18 07:03 Glucose (Dex4 Glucose) 4 - 8 tabs PO UD PRN; Protocol PRN Reason: Hypoglycemia Protocol Stop: 09/20/18 07:03 Lorazepam (Ativan) 1 mg in 2 mls @ 0.5 mls/min IV Q10M PRN PRN Reason: seizures Stop: 09/20/18 07:03 Acyclovir Sodium 775 mg/ (Dextrose) 265.5 mls @ 250 mls/hr IV Q8H MARIYA; Protocol Stop: 09/02/18 16:59 Last Infusion: 08/25/18 02:15 Dose: Infused Insulin Aspart (Novolog Flexpen) 0 units SC ACHS MARIYA Stop: 09/20/18 07:29 Last Admin: 08/24/18 20:15 Dose: Not Given Insulin Glargine (Lantus Solostar Pen) 5 units SQ DAILY MARIYA Stop: 09/20/18 08:59 Last Admin: 08/24/18 07:55 Dose: 5 units Ipratropium [place] (Atrovent 0.02% 0.5mg/2.5ml) 0.5 mg INH Q4R PRN PRN Reason: Shortness Of Breath Or Wheezing Stop: 09/20/18 07:03 Lactobacillus Acidophilus (Floranex Granules/Powder Packet) 1 gm PO DAILY MARIYA Stop: 09/20/18 08:59 Last Admin: 08/24/18 07:51 Dose: 1 gm Levalbuterol HCl (Xopenex 1.25mg/0.5ml Neb) 1.25 mg INH Q4R PRN PRN Reason: Shortness Of Breath Or Wheezing Stop: 09/20/18 07:03 Levetiracetam (Keppra) 500 mg PO BID MARIYA Stop: 09/20/18 20:59 Last Admin: 08/24/18 20:15 Dose: 500 mg Metoprolol Succinate (Toprol Xl) 200 mg PO DAILY MARIYA Stop: 09/20/18 08:59 Last Admin: 08/24/18 07:52 Dose: 200 mg Miscellaneous (Carbohydrates For Hypoglycemia) 15 - 30 gm PO UD PRN PRN Reason: Hypoglycemia Treatment Stop: 09/20/18 07:03 Miscellaneous Information (Pharmacy Consult) 1 ea N/A UD PRN; Protocol PRN Reason: Consult Stop: 09/22/18 16:31 Pantoprazole Sodium (Protonix) 40 mg PO BID [facility] Stop: 09/20/18 08:59 Last Admin: 08/24/18 20:15 Dose: 40 mg Sucralfate (Carafate) 1 gm PO ACHS MARIYA Stop: 09/20/18 07:29 Last Admin: 08/23/18 19:24 Dose: 1 gm _ (1) Diabetes mellitus type 2 with complications Diabetes mellitus senior care insulin use: without senior care use Qualified Code (s): E11.8 - Type 2 diabetes mellitus with unspecified complications
[2018-08-24] MEDS ORDERED: VANCOMYCIN HCL 1,750 MG in SODIUM CHLORIDE 0.9% 500 ML IV SCH (18:00)
[2018-08-25] MEDS: ACYCLOVIR SOD 775 MG in DEXTROSE 5% 250 ML IV SCH ×3 (01:11→18:06)
[2018-08-25] MEDS: HYDROCODONE/ACETAMOPHEN 5/325MG TAB PO PRN ×4 (02:03→22:21)
[2018-08-25] MEDS: PANTOprazole 40 MG TAB PO SCH ×2 (07:32→21:07)
[2018-08-25] MEDS: FINASTERIDE 5 MG TAB PO SCH (07:32)
[2018-08-25] MEDS: LACTOBACILLUS ACIDOPHILUS 1 GM PACK PO SCH (07:33)
[2018-08-25] MEDS: METOPROLOL SUCC 50MG EXT REL TAB PO SCH (07:33)
[2018-08-25] MEDS: levETIRAcetam 500 MG TAB PO SCH ×2 (07:33→21:06)
[2018-08-25] MEDS: INSULIN GLARGINE SOLOSTAR 100 UNITS/ML 3 ML PEN SQ SCH (07:39)
[2018-08-25] MEDS: INSULIN ASPART 100 UNITS/ML 3 ML PEN SC SCH ×4 (07:43→21:05)
[2018-08-25] MEDS: DIGOXIN 0.125 MG TAB PO SCH (07:51)
[2018-08-25] MEDS: FUROSEMIDE 20 MG TAB PO SCH (07:51)
[2018-08-25] MEDS: LOSARTAN POTASSIUM 50 MG TAB PO SCH (07:52)
[2018-08-25] MEDS: ASPIRIN 81 MG ECTAB PO SCH (07:52)
[2018-08-25] MEDS: POTASSIUM CHLORIDE 10 MEQ TABCR PO SCH (07:52)
[2018-08-25 08:18] LABS: Basophils # (auto) 0.04 K/uL (0-0.2); Basophils % (auto) 0.4 %; Eosinophils % (auto) 5.4 %; Hematocrit (blood only) 40.5 % (42-52); Hemoglobin 13.2 g/dL (14.0-18.0); Immature Granulocytes # (auto) 0.02 K/uL (0.00-0.02); Immature Granulocytes % (auto) 0.2 %; Lymphocytes # (auto) 0.85 K/uL (1.2-3.4); Lymphocytes % (auto) 9.1 %; Mean Corpuscular Hgb Conc 32.6 g/dL (32-36); Mean Corpuscular Volume 91.2 fL (80-100); Mean Platelet Volume 10.2 fL (7.4-10.4); Monocytes # (auto) 0.62 K/uL (0.11-0.59); Monocytes % (auto) 6.7 %; Neutrophils # (auto) 7.29 K/uL (1.4-6.5); Neutrophils % (auto) 78.2 %; Platelet Count 222 K/uL (130-400); RDW Coefficient of Variation 15.4 % (11.5-14.5); RDW Standard Deviation 51.6 fL (36.4-46.3); Red Blood Count 4.44 M/uL (4.7-6.1); White Blood Count 9.32 K/uL (4.8-10.8)
[2018-08-25 08:48] LABS: BUN Creatinine Ratio 17.3 (10-20); Calcium 8.2 mg/dl (8.5-10.1); Creatinine Clr Calc Pharmacy 78.3 ml/min; Est GFR (African American) 78.1; Est GFR (Non-African American) 67.4; Potassium 3.9 mmol/L (3.5-5.1)
--- NOTE | 2018-08-25 18:31 | Hospitalist Progress Note ---
Date of Service August 25, 2018 Assessment & Plan (1) Encephalopathy acute: Resolved yesterday and remains lucid today. Possible toxic encephalopathy 2/2 compazine use vs metabolic encephalopathy from underlying infection. CSF studies pending-encephalitis less likely at this point. Doing very well off antibiotics for two days. Cont Acyclovir pending [facility] PCR which should return in 2-4 days per [facility]. Cont Keppra. Avoid compazine. (2) Acute diastolic (congestive) heart failure: 2/2 fluid overload after aggressive appropriate fluid resuscitation in sepsis on admission. Compensated, cont daily Lasix per home regimen. No longer requiring oxygen. (3) New onset seizure: Cont Keppra per Neuro until outpatient follow-up. (4) Complicated UTI (urinary tract infection): chronic indwelling patiño. ID consulted. UCx negative and ID suspects colonization. Patient is asymptomatic. h/o c-diff so antibiotics were stopped 24 hrs ago and patient continues to do very well. (5) Chronic indwelling Patiño catheter: Managed by Urology. Catheter changed last week on 08/17. (6) Chronic a-fib: Not on anticoagulation as he was deemed a poor candidate. Cont Toprol and ASA 81mg PO daily (7) CIERRA (acute kidney injury): resolved. (8) Diabetes mellitus type 2 with complications: Inpatient sugar at goal. Cont glargine and Novolog ISS. (9) Open wound of scrotum: per wound care and nursing staff, chronic. EHOB bed ordered for comfort. (10) DVT prophylaxis: No anticoagulants because of bleeding complications in past. SCD's. Ambulate. Full Dispo-pending Neuro recs. Marisol Daly DO [facility] Subjective feeling well wants to go home breathing improved denies cough, fevers, chills tolerating PO Physical Exam 2 Vital Signs (Past 24 Hours): Last Vital Signs Temp 36.6 C 08/25/18 16:11 Pulse 80 08/25/18 16:11 Resp 18 08/25/18 16:11 BP 150/73 H 08/25/18 16:11 Pulse Ox 91 08/25/18 16:11 CONSTITUTIONAL: obese, vitals as above, well-appearing EYES: normal conjuctivae, no scleral icterus NECK: trachea midline RESPIRATORY: clear to auscultation bilaterally, no crackles, rales or wheezes, normal respiratory effort CARDIOVASCULAR: regular rate and rhythm, S1 and 2 heard without murmurs, gallops or rubs, no JVD, no peripheral edema GASTROINTESTINAL: soft, nontender, nondistended MUSCULOSKELETAL: strength 5/5 throughout, head is normocephalic and atraumatic , neck supple, normal palpation of chest wall without tenderness SKIN: warm and dry NEUROLOGIC: CN 2-12 grossly intact PSYCHIATRIC: alert and oriented Results & Data Laboratory Results Short CBC 08/25/18 Range/Units 07:57 WBC 9.32 (4.8-10.8) K/uL Hgb 13.2 L (14.0-18.0) g/dL Hct 40.5 L (42-52) % Plt Count 222 (130-400) K/uL BMP 08/25/18 07:57 Sodium 135 L Potassium 3.9 Chloride 104 Carbon Dioxide 23 BUN 18 Creatinine 1.06 Glucose 152 H Calcium 8.2 L Medications Administered Current Inpatient Medications Acetaminophen (Tylenol) 650 mg PO Q4H PRN PRN Reason: Pain or Fever Stop: 09/23/18 01:31 Last Admin: 08/24/18 01:00 Dose: 650 mg Hydrocodone Bitart/Acetaminophen ([place] 5/325) 1 tab PO Q4H PRN PRN Reason: Pain Stop: 09/04/18 07:03 Last Admin: 08/26/18 03:56 Dose: 1 tab Aspirin (Ecotrin Ectab) 81 mg PO DAILY MARIYA Stop: 09/20/18 08:59 Last Admin: 08/25/18 07:52 Dose: 81 mg Dextrose (Dextrose 50%) 25 - 50 ml IV UD PRN; Protocol PRN Reason: Hypoglycemia Protocol Stop: 09/20/18 07:03 Digoxin (Lanoxin) 0.125 mg PO DAILY MARIYA Stop: 09/24/18 08:59 Last Admin: 08/25/18 07:51 Dose: 0.125 mg Finasteride (Proscar) 5 mg PO DAILY MARIYA Stop: 09/20/18 08:59 Last Admin: 08/25/18 07:32 Dose: 5 mg Furosemide (Lasix) 20 mg PO DAILY MARIYA Stop: 09/24/18 08:59 Last Admin: 08/25/18 07:51 Dose: 20 mg Gadobutrol (Gadavist 65ml) 13 ml IV ONCE PRN PRN Reason: Interaction Checking Stop: 08/26/18 19:23 Last Admin: 08/22/18 19:25 Dose: 13 ml Glucagon (Glucagen) 1 mg SQ UD PRN; Protocol PRN Reason: Hypoglycemia Protocol Stop: 09/20/18 07:03 Glucose (Glucose 40%) 15 - 30 gm PO UD PRN; Protocol PRN Reason: Hypoglycemia Protocol Stop: 09/20/18 07:03 Glucose (Dex4 Glucose) 4 - 8 tabs PO UD PRN; Protocol PRN Reason: Hypoglycemia Protocol Stop: 09/20/18 07:03 Lorazepam (Ativan) 1 mg in 2 mls @ 0.5 mls/min IV Q10M PRN PRN Reason: seizures Stop: 09/20/18 07:03 Acyclovir Sodium 775 mg/ (Dextrose) 265.5 mls @ 250 mls/hr IV Q8H MARIYA; Protocol Stop: 09/02/18 16:59 Last Admin: 08/26/18 01:26 Dose: 250 mls/hr Insulin Aspart (Novolog Flexpen) 0 units SC ACHS MARIYA Stop: 09/20/18 07:29 Last Admin: 08/25/18 21:05 Dose: Not Given Insulin Glargine (Lantus Solostar Pen) 5 units SQ DAILY MARIYA Stop: 09/20/18 08:59 Last Admin: 08/25/18 07:39 Dose: 5 units Ipratropium [place] (Atrovent 0.02% 0.5mg/2.5ml) 0.5 mg INH Q4R PRN PRN Reason: Shortness Of Breath Or Wheezing Stop: 09/20/18 07:03 Lactobacillus Acidophilus (Floranex Granules/Powder Packet) 1 gm PO DAILY MARIYA Stop: 09/20/18 08:59 Last Admin: 08/25/18 07:33 Dose: 1 gm Levalbuterol HCl (Xopenex 1.25mg/0.5ml Neb) 1.25 mg INH Q4R PRN PRN Reason: Shortness Of Breath Or Wheezing Stop: 09/20/18 07:03 Levetiracetam (Keppra) 500 mg PO BID MARIYA Stop: 09/20/18 20:59 Last Admin: 08/25/18 21:06 Dose: 500 mg Losartan Potassium (Cozaar) 50 mg PO DAILY MARIYA Stop: 09/24/18 08:59 Last Admin: 08/25/18 07:52 Dose: 50 mg Metoprolol Succinate (Toprol Xl) 200 mg PO DAILY [facility] Stop: 09/20/18 08:59 Last Admin: 08/25/18 07:33 Dose: 200 mg Miscellaneous (Carbohydrates For Hypoglycemia) 15 - 30 gm PO UD PRN PRN Reason: Hypoglycemia Treatment Stop: 09/20/18 07:03 Miscellaneous Information (Pharmacy Consult) 1 ea N/A UD PRN; Protocol PRN Reason: Consult Stop: 09/22/18 16:31 Pantoprazole Sodium (Protonix) 40 mg PO BID [facility] Stop: 09/20/18 08:59 Last Admin: 08/25/18 21:07 Dose: 40 mg Potassium Chloride (Klor-Con M10) 10 meq PO DAILY [facility] Stop: 09/24/18 08:59 Last Admin: 08/25/18 07:52 Dose: 10 meq _ (1) Diabetes mellitus type 2 with complications Diabetes mellitus fpc 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
[2018-08-26] MEDS: ACYCLOVIR SOD 775 MG in DEXTROSE 5% 250 ML IV SCH ×3 (01:26→16:26)
[2018-08-26] MEDS: HYDROCODONE/ACETAMOPHEN 5/325MG TAB PO PRN ×3 (03:56→21:31)
[2018-08-26] MEDS ORDERED: VANCOMYCIN TROUGH ONE (05:30)
[2018-08-26] MEDS: POTASSIUM CHLORIDE 10 MEQ TABCR PO SCH (08:29)
[2018-08-26] MEDS: levETIRAcetam 500 MG TAB PO SCH ×2 (08:29→21:28)
[2018-08-26] MEDS: FINASTERIDE 5 MG TAB PO SCH (08:29)
[2018-08-26] MEDS: PANTOprazole 40 MG TAB PO SCH ×2 (08:29→21:29)
[2018-08-26] MEDS: ASPIRIN 81 MG ECTAB PO SCH (08:29)
[2018-08-26] MEDS: METOPROLOL SUCC 50MG EXT REL TAB PO SCH (08:29)
[2018-08-26] MEDS: FUROSEMIDE 20 MG TAB PO SCH (08:29)
[2018-08-26] MEDS: LOSARTAN POTASSIUM 50 MG TAB PO SCH (08:30)
[2018-08-26] MEDS: LACTOBACILLUS ACIDOPHILUS 1 GM PACK PO SCH (08:31)
[2018-08-26] MEDS: DIGOXIN 0.125 MG TAB PO SCH (08:32)
[2018-08-26] MEDS: INSULIN ASPART 100 UNITS/ML 3 ML PEN SC SCH ×4 (08:38→21:26)
[2018-08-26] MEDS: INSULIN GLARGINE SOLOSTAR 100 UNITS/ML 3 ML PEN SQ SCH (10:42)
--- NOTE | 2018-08-26 13:12 | Hospitalist Progress Note ---
Date of Service August 26, 2018 Assessment & Plan (1) Encephalopathy acute: Resolved, remains hospitalized until HSV PCR returns and is negative. CSF studies pending-encephalitis less likely at this point. Doing very well off antibiotics. Cont Keppra, Avoid compazine. (2) Acute diastolic (congestive) heart failure: Compensated, cont daily Lasix per home regimen. No longer requiring oxygen. (3) New onset seizure: Cont Keppra per Neuro until outpatient follow-up. (4) Complicated UTI (urinary tract infection): chronic indwelling patiño. ID consulted. UCx negative and ID suspects colonization. Patient is asymptomatic. h/o c-diff so antibiotics were stopped 24 hrs ago and patient continues to do very well. (5) Chronic indwelling Patiño catheter: Managed by Urology. Catheter changed last week on 08/17. (6) Chronic a-fib: Not on anticoagulation as he was deemed a poor candidate. Cont Toprol and ASA 81mg PO daily (7) CIERRA (acute kidney injury): resolved. (8) Diabetes mellitus type 2 with complications: Inpatient sugar at goal. Cont glargine and Novolog ISS. (9) Open wound of scrotum: per wound care and nursing staff, chronic. EHOB bed ordered for comfort. (10) DVT prophylaxis: No anticoagulants because of bleeding complications in past. SCD's. Ambulate. Full Dispo-pending Neuro recs. Marisol Daly DO [facility] Hospitalist Subjective doing well lucid ready to go home tolerating PO afebrile no seizures. Physical Exam 2 Vital Signs (Past 24 Hours): Last Vital Signs Temp 36.6 C 08/26/18 08:00 Pulse 88 08/26/18 08:32 Resp 20 08/25/18 23:15 BP 144/79 H 08/26/18 08:00 Pulse Ox 92 08/26/18 08:00 CONSTITUTIONAL: obese, vitals as above, well-appearing EYES: normal conjuctivae, no scleral icterus NECK: trachea midline RESPIRATORY: clear to auscultation bilaterally, no crackles, rales or wheezes, normal respiratory effort CARDIOVASCULAR: regular rate and rhythm, S1 and 2 heard without murmurs, gallops or rubs, no JVD, no peripheral edema GASTROINTESTINAL: soft, nontender, nondistended MUSCULOSKELETAL: strength 5/5 throughout, head is normocephalic and atraumatic , neck supple, normal palpation of chest wall without tenderness SKIN: warm and dry NEUROLOGIC: CN 2-12 grossly intact PSYCHIATRIC: alert and oriented Results & Data Medications Administered Current Inpatient Medications Acetaminophen (Tylenol) 650 mg PO Q4H PRN PRN Reason: Pain or Fever Stop: 09/23/18 01:31 Last Admin: 08/24/18 01:00 Dose: 650 mg Hydrocodone Bitart/Acetaminophen ([place] 5/325) 1 tab PO Q4H PRN PRN Reason: Pain Stop: 09/04/18 07:03 Last Admin: 08/26/18 17:55 Dose: 1 tab Aspirin (Ecotrin Ectab) 81 mg PO DAILY MARIYA Stop: 09/20/18 08:59 Last Admin: 08/26/18 08:29 Dose: 81 mg Dextrose (Dextrose 50%) 25 - 50 ml IV UD PRN; Protocol PRN Reason: Hypoglycemia Protocol Stop: 09/20/18 07:03 Digoxin (Lanoxin) 0.125 mg PO DAILY MARIYA Stop: 09/24/18 08:59 Last Admin: 08/26/18 08:32 Dose: 0.125 mg Finasteride (Proscar) 5 mg PO DAILY MARIYA Stop: 09/20/18 08:59 Last Admin: 08/26/18 08:29 Dose: 5 mg Furosemide (Lasix) 20 mg PO DAILY MARIYA Stop: 09/24/18 08:59 Last Admin: 08/26/18 08:29 Dose: 20 mg Gadobutrol (Gadavist 65ml) 13 ml IV ONCE PRN PRN Reason: Interaction Checking Stop: 08/26/18 19:23 Last Admin: 08/22/18 19:25 Dose: 13 ml Glucagon (Glucagen) 1 mg SQ UD PRN; Protocol PRN Reason: Hypoglycemia Protocol Stop: 09/20/18 07:03 Glucose (Glucose 40%) 15 - 30 gm PO UD PRN; Protocol PRN Reason: Hypoglycemia Protocol Stop: 09/20/18 07:03 Glucose (Dex4 Glucose) 4 - 8 tabs PO UD PRN; Protocol PRN Reason: Hypoglycemia Protocol Stop: 09/20/18 07:03 Lorazepam (Ativan) 1 mg in 2 mls @ 0.5 mls/min IV Q10M PRN PRN Reason: seizures Stop: 09/20/18 07:03 Acyclovir Sodium 775 mg/ (Dextrose) 265.5 mls @ 250 mls/hr IV Q8H MARIYA; Protocol Stop: 09/02/18 16:59 Last Infusion: 08/26/18 17:39 Dose: Infused Insulin Aspart (Novolog Flexpen) 0 units SC ACHS MARIYA Stop: 09/20/18 07:29 Last Admin: 08/26/18 17:57 Dose: 2 units Insulin Glargine (Lantus Solostar Pen) 5 units SQ DAILY MARIYA Stop: 09/20/18 08:59 Last Admin: 08/26/18 10:42 Dose: 5 units Ipratropium [place] (Atrovent 0.02% 0.5mg/2.5ml) 0.5 mg INH Q4R PRN PRN Reason: Shortness Of Breath Or Wheezing Stop: 09/20/18 07:03 Lactobacillus Acidophilus (Floranex Granules/Powder Packet) 1 gm PO DAILY [facility] Stop: 09/20/18 08:59 Last Admin: 08/26/18 08:31 Dose: 1 gm Levalbuterol HCl (Xopenex 1.25mg/0.5ml Neb) 1.25 mg INH Q4R PRN PRN Reason: Shortness Of Breath Or Wheezing Stop: 09/20/18 07:03 Levetiracetam (Keppra) 500 mg PO BID [facility] Stop: 09/20/18 20:59 Last Admin: 08/26/18 08:29 Dose: 500 mg Losartan Potassium (Cozaar) 50 mg PO DAILY [facility] Stop: 09/24/18 08:59 Last Admin: 08/26/18 08:30 Dose: 50 mg Metoprolol Succinate (Toprol Xl) 200 mg PO DAILY [facility] Stop: 09/20/18 08:59 Last Admin: 08/26/18 08:29 Dose: 200 mg Miscellaneous (Carbohydrates For Hypoglycemia) 15 - 30 gm PO UD PRN PRN Reason: Hypoglycemia Treatment Stop: 09/20/18 07:03 Miscellaneous Information (Pharmacy Consult) 1 ea N/A UD PRN; Protocol PRN Reason: Consult Stop: 09/22/18 16:31 Pantoprazole Sodium (Protonix) 40 mg PO BID [facility] Stop: 09/20/18 08:59 Last Admin: 02/24/19 08:29 Dose: 40 mg Potassium Chloride (Klor-Con M10) 10 meq PO DAILY MARIYA Stop: 09/24/18 08:59 Last Admin: 08/26/18 08:29 Dose: 10 meq _ (1) Diabetes mellitus type 2 with complications Diabetes mellitus mcc insulin use: without roasterman use Qualified Code (s): E11.8 - Type 2 diabetes mellitus with unspecified complications
[2018-08-27] MEDS: ACYCLOVIR SOD 775 MG in DEXTROSE 5% 250 ML IV SCH ×2 (01:54→08:54)
[2018-08-27] MEDS: HYDROCODONE/ACETAMOPHEN 5/325MG TAB PO PRN ×3 (01:58→14:13)
[2018-08-27 06:34] LABS: Creatinine Clr Calc Pharmacy 83.8 ml/min; Est GFR (African American) 84.8; Est GFR (Non-African American) 73.2
[2018-08-27] MEDS: LOSARTAN POTASSIUM 50 MG TAB PO SCH (07:26)
[2018-08-27] MEDS: levETIRAcetam 500 MG TAB PO SCH (07:27)
[2018-08-27] MEDS: ASPIRIN 81 MG ECTAB PO SCH (07:27)
[2018-08-27] MEDS: DIGOXIN 0.125 MG TAB PO SCH (07:27)
[2018-08-27] MEDS: LACTOBACILLUS ACIDOPHILUS 1 GM PACK PO SCH (07:27)
[2018-08-27] MEDS: POTASSIUM CHLORIDE 10 MEQ TABCR PO SCH (07:27)
[2018-08-27] MEDS: FUROSEMIDE 20 MG TAB PO SCH (07:27)
[2018-08-27] MEDS: FINASTERIDE 5 MG TAB PO SCH (07:28)
[2018-08-27] MEDS: METOPROLOL SUCC 50MG EXT REL TAB PO SCH (07:28)
[2018-08-27] MEDS: PANTOprazole 40 MG TAB PO SCH (07:28)
[2018-08-27] MEDS: INSULIN ASPART 100 UNITS/ML 3 ML PEN SC SCH ×2 (08:54→12:32)
[2018-08-27] MEDS: INSULIN GLARGINE SOLOSTAR 100 UNITS/ML 3 ML PEN SQ SCH (08:54)
--- NOTE | 2018-08-27 10:12 | Infectious Disease Progress Nt ---
Date of Service August 27, 2018 Assessment & Plan (1) Leukocytosis: agree with following off of abx. doubt HSV encephalitis, especially with negative MRI but can change from IV acyclovir to po valtrex 1g po tid x 5 days to complete emperic course. ok for d/c from ID standpoint when otherwise stable. Subjective pt resting comfortably. no cp, sob. no f/c. off of abx. CSF and blood cultures all negative. remains on IV acyclovir pending HSV PCR. MRI brain negative. 0 wbc on csf analysis. wbc 9.3 08/25. all remaining ros reveiwed and are negative Physical Exam 2 Vital Signs (Past 24 Hours): Last Vital Signs Temp 36.6 C 08/27/18 08:07 Pulse 70 08/27/18 08:07 Resp 16 08/27/18 08:07 BP 158/78 H 08/27/18 08:07 Pulse Ox 90 08/27/18 08:07 Constitutional: WD/WN, vitals as above Eyes: PERRL, conjunctivae normal, anicteric sclerae ENMT: external ear and nose normal, oropharynx normal Neck: normal visual inspection; no nuchal rigidity Respiratory: normal respiratory effort, lungs clear to auscultation Cardiovascular: RRR, no murmur, no edema Gastrointestinal (Abdomen): normal bowel sounds, soft, nontender, no hepatosplenomegaly Musculoskeletal: no cyanosis or clubbing, extremities motor strength 5/5 Skin: no rashes, warm and dry Psychiatric: A+Ox3, euthymic affect Results & Data Laboratory Results Microbiology 08/21/18 03:56 Blood Blood Culture - Final No growth 08/21/18 03:47 Blood Blood Culture - Final No growth 08/23/18 Unknown Cerebral Spinal Fluid Gram Stain - Final 08/23/18 Unknown Cerebral Spinal Fluid CSF Culture - Final No growth 08/24/18 01:30 Blood Blood Culture - Preliminary No growth to date. 08/24/18 01:22 Blood Blood Culture - Preliminary No growth to date. 08/23/18 Unknown Cerebral Spinal Fluid Cryptococcal Antigen - Final 08/21/18 05:57 Urine,Clean Catch Urine Culture - Final Three types of organisms present, all high counts. Repeat collection recommended. No further identifications or sensitivities to follow.
--- NOTE | 2018-08-27 12:57 | Discharge Summary ---
Date of Service August 27, 2018 Admission HPI Per Admitting Provider History obtained from patient, family, and records. Limited history from patient secondary to disoriented state. 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 Cultures grew Proteus. Patient was seen at [facility] office last week for Patiño catheter change due to emptying issues. Issue resolved by Patiño catheter change. Urine cultures grew Proteus and enterococcus. Patient's urologist prescribed amoxicillin yesterday, patient has had 1 dose. Last night, patient noted by to be confused, not talking as much. Right eye deviation noted by . Generalized tonic-clonic seizures lasting a few minutes witnessed by and EMS. No tongue biting. After seizure, O2 sats noted to be 80s on 6 L, patient combative. Temperature at home was noted to be 101.8. Patient given Versed. At the ER, patient received IV Vancomycin and Ceftriaxone for sepsis. IV Lopressor also given for rapid A. fib. Patient denies chest pain, shortness of breath, headache symptoms. Dry cough symptoms from weeks ago improving as per Complaining of some back discomfort. Denies home narcotic overuse. 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 Admission Exam Per Admitting Provider Temp 38.4 C H 08/21/18 04:40 Pulse 90 08/21/18 05:16 Resp 24 08/21/18 03:35 BP 134/72 08/21/18 05:16 Pulse Ox 95 08/21/18 05:16 Physical Exam: GENERAL: Comfortable, obese, disoriented, hard of hearing, no respiratory distress SKIN: Pallor , warm HEENT: Pale palpebral conjunctivae, no ptosis, dry buccal mucosa, O2 mask in place NECK : Supple, short, no tenderness CHEST : Decreased breath sounds , no tenderness HEART : irregular, no obvious murmurs ABDOMEN: distention, nontender EXTREMITIES : Chronic LE venous stasis, no tenderness, no other conspicuous deformities noted NEUROLOGIC : Coherent, no facial asymmetry, no other gross focality Principal Diagnosis New onset seizure Idiopathic encephalopathy-resolved Discharge Data Allergies Allergy/AdvReac Type Severity Reaction Status Date / Time metronidazole Allergy Severe see below Verified 08/21/18 05:05 amoxicillin Allergy Intermediate rash Verified 08/21/18 05:05 Consultations 08/21/18 04:44 ED Decision to Admit Stat 08/21/18 07:04 Consult Neurology Routine 08/22/18 07:00 Consult Infectious Diseases Routine Ordered Studies 08/21/18 03:43 CT head/brain wo con Urgent 08/21/18 05:34 CT abd pelvis wo con Urgent CT chest wo con Urgent 08/22/18 17:16 MR brain seizure wo/w con Urgent 08/23/18 16:11 FL lumbar puncture diagnostic Urgent Hospital Course (1) Encephalopathy acute: (2) Acute diastolic (congestive) heart failure: . (3) New onset seizure: (4) Complicated UTI (urinary tract infection): (5) Chronic indwelling Patiño catheter: (6) Chronic a-fib: (7) CIERRA (acute kidney injury): (8) Diabetes mellitus type 2 with complications: (9) Open wound of scrotum: 77 yo M presented to the ER via EMS after a seizure witnessed at home. In the ER he was found to be in rapid atrial fibrillation. His mental status seeme d to be depressed, however, he had received Versed in the field for his seizure. He was given IV metoprolol and gentle IV hydration. Laboratory work reveals a marked leukocytosis, elevated lactate and elevated troponin at 0.2. The seizure-like activity was of unclear etiology as he had no prior history of seizures. UA is indicative of infection. Patient was medicated with IV vancomycin and Zosyn. Patient's mental status did seem to be improving fairly tremendously during his stay in the ER. Vital signs did stabilize. He was admitted to the Hospitalist service. he had a chronic indwelling patiño, he was continued on antibiotics for a complicated UTI. It was noted that he was recently prescribed amoxicillin as outpatient, which he is very allergic to, and which he took just before the seizure episode. He did also report an itchiness to his hands prior to losing consciousness. A mild troponin elevation was thought secondary to his rapid atrial fibrillation. He was notably not on anticoagulation for this as he had a persistent hemorrhaging scrotal wound as well as a h/o traumatic intracranial hemorrhage in the past. He was loaded on Keppra and Neurology was consulted and continued this at discharge. He was hypoxic on admission which may have contributed to seizure activity and post anoxic myoclonus was in the differential with seizures. Brain MRI was performed and was normal. An EEG was performed and was diffusely abnormal without lateralizing features. Urine culture grew high counts of three types or organisms which were not further speciated. After a short course of antibiotics they were stopped and he continued to do well. Although he was clinically improved on HD2 with a resolution of leukocytosis, he became diaphoretic and appeared septic and di soriented on HD3. It was unclear what was happening so he underwent an LP which was ultimately negative for infection. HSV PCR was also drawn and he was empirically placed on Acyclovir pending results for HSV encephalitis. The following day he improved dramatically and remained at his baseline mental status for the rest of the admission. Acyclovir was transitioned to Valtrex. He was continued on the Keppra with neuro followup recommended. On day of discharge he was ambulating and mentating at baseline and was tolerating PO. He was afebrile and hemodynanmically stable and was discharged in stable condition. Total Time Total Time Spent Total Time Spent (In Minutes): 60 Total Time Includes: Examination of the Patient, Discharge Planning, Medication Reconciliation and 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 With Other Providers Discharge Plan Discharge Items Patient Disposition: Home - Home Health Services Reason For Visit: RESP FAILURE Discharge Diagnosis: New onset seizure Idiopathic encephalopathy-resolved Condition: Good Discharge Goals: Increase independence Activity: As commented below Lifting: Gradually increase as tolerated Bathing: No limitations Driving/Machine Use Comment: No driving for 6 months since last seizure. Non-emergency contact: Primary Care Provider Call non-emergency contact if: you have any medication questions, your symptoms worsen, your pain is not controlled, your pain is worsening, your pain is unusual for you, your pain is concerning for you and you have a fever Follow-up/Referrals: Yung Blum MD [Physician] - Donte Szymanski [Primary Care Provider] - Diet: Carb Consistent or DM2 and Heart Healthy Addtl Provider Instructions: Please take all medications as instructed on discharge list below. You are not able to drive for 6 months since your last seizure. You were put on a new anti-seizure medication called STANLEY. Please continue this until you are able to see [facility] Neurology in the office. Please call for an appointment within the next 4 weeks. You were given an antiviral medication for empiric treatment of HSV encephalitis pending spinal studies returning. Please continue to take the full course of VALTREX as prescribed unless otherwise directed by a physician. You have the following appointment scheduled: Date & Time 09/03/2018 11:10 AM Provider Donte Szymanski DO Department [facility] It was a pleasure taking care of you! Please call if you have any questions or problems. You can reach a [facility] hospitalist on duty at [facility] 24 hours a day by calling [phone]. Take care of yourself. Marisol Daly DO [facility] Hospitalist Prescriptions: New levetiracetam [Keppra] 500 mg Tablet 500 mg PO BID Qty: 60 RF: 1 Continued aspirin 81 mg Tablet,Delayed Release (Dr/Ec) 81 mg PO DAILY RF: 0 digoxin 125 mcg tablet 125 mcg PO DAILY RF: 0 losartan 50 mg tablet 50 mg PO DAILY RF: 0 metformin 500 mg Tablet 500 mg PO TIDM RF: 0 metoprolol succinate 200 mg tablet extended release 24 hr 200 mg PO DAILY RF: 0 pantoprazole 40 mg Tablet,Delayed Release (Dr/Ec) 40 mg PO BID RF: 0 ferrous sulfate 325 mg (65 mg iron) Tablet 325 mg PO BID RF: 0 furosemide 20 mg Tablet 20 mg PO DAILY RF: 0 Lactobacillus acidophilus [Acidophilus] Capsule 10,000 mmu cells PO DAILY RF: 0 finasteride 5 mg tablet 5 mg PO DAILY RF: 0 potassium chloride 10 mEq tablet,ER particles/crystals 10 meq PO DAILY RF: 0 sucralfate 100 mg/mL Suspension 10 ml PO ACHS Qty: 100 RF: 0 tramadol 50 mg tablet 50 mg PO Q6 PRN (Reason: Pain) Qty: 10 RF: 0 simethicone [Mi-Acid Gas Relief] 80 mg tablet,chewable 80 mg PO Q6H PRN (Reason: Gastric Reflux) RF: 0 Discontinued amoxicillin 500 mg capsule 500 mg PO TID RF: 0 Stand-Alone Forms: [facility] Discharge Orders: Discharge Order (Routine); Ordered 08/27/18 Ordered By: Marisol Daly Admission Data Admit Date/Time: 08/21/18 05:39 Attending Provider: Marisol Daly Admit Provider: Carlos Boyce Primary Care Provider: Donte Szymanski Other Providers: Yung Blum Jennifer Service: Telemetry Other Interventions: Discharge Summary Assessment (RN) Last Done: 08/27/18 13:44 DC Date/Time DO NOT enter until pt leaves facility: 08/27/18 14:38
[2018-08-29 18:35] LABS: HSV Type 1 DNA Not Detected (Not Detected); HSV Type 1&2 DNA Source CSF; HSV Type 2 DNA Not Detected (Not Detected); Lyme DNA Source CSF; VDRL Qualitative CSF Nonreactive (Nonreactive)
== END 2018-08-27 14:38 | disposition home health service (06) | DRG 698 ==
LOC: ED 03:35 → 2S 05:39 → SUATTDRO 05:39 → 2S 06:06 → 4W 08-25 13:13
DX: J96.10 Chronic respiratory failure, unspecified whether with hypoxia or hypercapnia; E66.01 Morbid (severe) obesity due to excess calories; I50.33 Acute on chronic diastolic (congestive) heart failure; A41.9 Sepsis, unspecified organism; Z79.84 Long term (current) use of oral hypoglycemic drugs; N18.3 Chronic kidney disease, stage 3 (moderate); I48.2 Chronic atrial fibrillation; Y84.6 Urinary catheterization as the cause of abnormal reaction of the patient, or of later complication, without mention of misadventure at the time of the procedure; D64.9 Anemia, unspecified; N39.0 Urinary tract infection, site not specified; R65.20 Severe sepsis without septic shock; S31.30XA Unspecified open wound of scrotum and testes, initial encounter; Z79.899 Other long term (current) drug therapy; Z68.36 Body mass index [BMI] 36.0-36.9, adult; R56.9 Unspecified convulsions; N17.9 Acute kidney failure, unspecified; X58.XXXA Exposure to other specified factors, initial encounter; G93.41 Metabolic encephalopathy; Y73.1 Therapeutic (nonsurgical) and rehabilitative gastroenterology and urology devices associated with adverse incidents; E11.22 Type 2 diabetes mellitus with diabetic chronic kidney disease; I11.0 Hypertensive heart disease with heart failure; T83.511A Infection and inflammatory reaction due to indwelling urethral catheter, initial encounter; G47.33 Obstructive sleep apnea (adult) (pediatric); Z79.82 Long term (current) use of aspirin; I50.32 Chronic diastolic (congestive) heart failure

== ENCOUNTER 2019-03-16 02:24 | Inpatient (IN) ==
[2019-03-16 05:23] LABS: Basophils # (auto) 0.03 K/uL (0-0.2); Basophils % (auto) 0.2 %; Eosinophils # (auto) 0.06 K/uL (0-0.5); Eosinophils % (auto) 0.5 %; Hematocrit (blood only) 44.5 % (42-52); Hemoglobin 14.4 g/dL (14.0-18.0); Immature Granulocytes # (auto) 0.04 K/uL (0.00-0.02); Immature Granulocytes % (auto) 0.3 %; Lymphocytes # (auto) 0.65 K/uL (1.2-3.4); Lymphocytes % (auto) 5.3 %; Mean Corpuscular Hgb Conc 32.4 g/dL (32-36); Mean Corpuscular Volume 89.7 fL (80-100); Mean Platelet Volume 10.1 fL (7.4-10.4); Monocytes # (auto) 0.71 K/uL (0.11-0.59); Monocytes % (auto) 5.8 %; Neutrophils # (auto) 10.84 K/uL (1.4-6.5); Neutrophils % (auto) 87.9 %; Nucleated RBC # (auto) 0.03 K/uL (0-0); Nucleated RBC % (auto) 0.2 %; Platelet Count 239 K/uL (130-400); RDW Coefficient of Variation 17.7 % (11.5-14.5); RDW Standard Deviation 57.7 fL (36.4-46.3); Red Blood Count 4.96 M/uL (4.7-6.1); White Blood Count 12.33 K/uL (4.8-10.8)
[2019-03-16] MEDS ORDERED: HYDROCODONE/ACETAMOPHEN 5/325MG TAB PO STA (05:30)
[2019-03-16] MEDS ORDERED: PROPOFOL IV EMULSION 10 MG/ML 20 ML VIAL IV STA (05:36)
[2019-03-16 05:41] LABS: Alanine Aminotransferase 13 U/L (12-78); Aspartate Aminotransferase 14 U/L (15-37); BUN Creatinine Ratio 18.1 (10-20); Blood Urea Nitrogen 23 mg/dl (7-18); Calcium 8.5 mg/dl (8.5-10.1); Carbon Dioxide 25 mmol/L (21-32); Chloride 102 mmol/L (98-107); Creatinine Clr Calc Pharmacy 71.7 ml/min; Est GFR (African American) 64.1; Est GFR (Non-African American) 55.3; Glucose 182 mg/dl (70-99); Potassium 4.7 mmol/L (3.5-5.1); Sodium 135 mmol/L (136-145)
[2019-03-16 05:45] LABS: Albumin Globulin Ratio 0.6 (0.9-2); Alkaline Phosphatase 64 U/L (45-117); Bilirubin,Total 0.8 mg/dl (0.2-1); Globulin 4.9 gm/dl (2.5-4.0); NT Pro B Type Natriuretic Pept 4362 pg/ml (0-1800); Total Protein 7.9 gm/dl (6.4-8.2); Troponin I < 0.015 ng/ml (0-0.045)
[2019-03-16] MEDS ORDERED: VANCOMYCIN HCL 2,750 MG in SODIUM CHLORIDE 0.9% 500 ML IV ONE (06:03)
[2019-03-16] MEDS ORDERED: VANCOMYCIN CONSULT ACTIVE PRN (06:03)
[2019-03-16] MEDS ORDERED: CEFEPIME 2,000 MG/20 ML VIAL IV STA (06:03)
[2019-03-16] MEDS ORDERED: VANCOMYCIN CONSULT ACTIVE ONE (06:03)
[2019-03-16] MEDS ORDERED: FUROSEMIDE 40 MG in SYRINGE 0 ML IV ONE (06:29)
[2019-03-16] MEDS ORDERED: FUROSEMIDE 40 MG/4 ML VIAL IV ONE (07:00)
--- NOTE | 2019-03-16 07:05 | History & Physical Report ---
Date of Service March 16, 2019 Assessment & Plan (1) Acute hypoxemic respiratory failure: Secondary to decompensated heart failure chronic diastolic heart failure (EF 70%, TTE 2018) Subacute symptoms Possible right-sided heart failure from JUAN MANUEL (CPAP noncompliance) hypertension, elevated upon arrival at the ER atrial fibrillation, currently rate controlled not on anticoagulation secondary to recurrent scrotal hemorrhage Abdominal distention secondary to CHF rule out ascites LE swelling secondary to CHF rule out LE DVT chronic scrotal wounds/LE venous stasis ulcers, occasional bloody drainage, currently on outpatient Keflex Rx as per ID recommendations. 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 Lovenox subcu Full code History of Present Illness Chief Complaint: Slid down to the floor, could not get up Primary Care Provider: Donte Szymanski, History obtained from patient and records. 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 Late last night patient slid from his chair at home to the floor blaming the new blanket his had placed on the chair. Unable to get up. Patient denies syncope, chest pain, S OB, cough symptoms. Increased abdominal distention, leg swelling over the last few weeks. No abdominal pain. Decreased ability to ambulate the last few weeks. Compliant with home diuretic Rx. Denies NSAID intake. EMS called by for lift assist. O2 sats noted to be 80s on room air by EMS. Patient brought to the emergency room. Patient given Vancomycin and Cefepime for possible pneumonia. 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 Allergies Allergy/AdvReac Type Severity Reaction Status Date / Time metronidazole Allergy Severe see below Verified 03/16/19 03:28 amoxicillin Allergy Intermediate rash Verified 03/16/19 03:28 Home Medications Home Medications Medication Instructions Recorded Confirmed Type Lactobacillus acidophilus 10,000 mmu cells PO DAILY 06/16/18 03/16/19 History [Acidophilus] aspirin 81 mg PO DAILY 06/16/18 03/16/19 History digoxin 125 mcg PO DAILY 06/16/18 03/16/19 History ferrous sulfate 325 mg PO BID 06/16/18 03/16/19 History finasteride 5 mg PO DAILY 06/16/18 03/16/19 History furosemide 20 mg PO DAILY 06/16/18 03/16/19 History losartan 50 mg PO DAILY 06/16/18 03/16/19 History metformin 500 mg PO DAILY 06/16/18 03/16/19 History metoprolol succinate 200 mg PO DAILY 06/16/18 03/16/19 History pantoprazole 40 mg PO BID 06/16/18 03/16/19 History potassium chloride 10 meq PO DAILY 06/16/18 03/16/19 History tramadol 50 mg PO Q6 PRN #10 tab 06/28/18 03/16/19 Rx cephalexin 500 mg PO TID 03/16/19 03/16/19 History hydrocodone-acetaminophen 1 tab PO Q6H PRN 03/16/19 03/16/19 History levetiracetam 500 mg PO BID 03/16/19 03/16/19 History Past Med/Surg History Medical History 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, with fat layer exposed (Acute) Chronic venous insufficiency (Chronic) Acute diastolic (congestive) heart failure Hypoxia DVT prophylaxis CIERRA (acute kidney injury) Leukocytosis Diabetes mellitus type 2 with complications DVT prophylaxis Severe sepsis Esophageal candidiasis (Acute) Peripheral arterial disease Complicated UTI (urinary tract infection) (Acute) Chronic indwelling Baires catheter (Chronic) Acute urinary retention (Acute) Atrial fibrillation with RVR (Acute) Acute renal insufficiency (Acute) Rhabdomyolysis (Acute) Scrotal varicose veins (Chronic) Ulcer of scrotum (Chronic) Barretts esophagus ICH (intracerebral hemorrhage) (Chronic) Gastric ulcer with hemorrhage (Chronic) Hypertension Diabetes (Chronic) Chronic diastolic CHF (congestive heart failure) (Chronic) Chronic a-fib Morbid obesity (Acute) Acquired claw toe of left foot (Acute) Acquired claw toe of right foot (Acute) Bilateral swelling of feet (Acute) Callus (Acute) Diabetes mellitus with diabetic polyneuropathy (Acute) Skin ulcer of left foot including toes (Acute) Acquired buried penis (Chronic) BPH without urinary obstruction (Chronic) Benign hypertension (Chronic) Chronic diastolic CHF (congestive heart failure) (Chronic) DM (diabetes mellitus), type 2, uncontrolled w/ophthalmic complication (Chronic) Diverticulosis of colon (without mention of hemorrhage) (Chronic) Exertional dyspnea (Chronic) Gastric ulcer with hemorrhage but without obstruction (Chronic) H/O Clostridium difficile infection (Chronic) Hemangioma of skin (Chronic) History of chronic atrial fibrillation (Chronic) Morbid obesity (Chronic) JUAN MANUEL (obstructive sleep apnea) (Chronic) Sepsis (Chronic) Symptomatic anemia (Chronic) Urinary retention (Chronic) Surgical History S/P cholecystectomy (Chronic) S/P tonsillectomy and adenoidectomy (Chronic) History of total replacement of right hip (Chronic) Family History Other No significant family history Social History Preferred Language: [place]ian 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 Ability: Effective Stone Layer Required: No Beliefs That Will Affect Care: None marital status: Current Living Situation: Spouse Other Information That Helps Us Care for You: No Feels Safe at Home: Yes Safety Concerns: Feels Safe At This Time Smoking Status: Former smoker Do You Dip or Chew Tobacco: No ; Second Hand Exposure: No ; Tobacco Cessation Education Requested by Patient: No Hx Alcohol Use: No Hx Substance Use: No Physical Exam Physical Exam: GENERAL: uncomfortable, morbidly obese, slightly hard of hearing, no respiratory distress SKIN: Pallor , warm HEENT: Pale palpebral conjunctivae, no ptosis, moist buccal mucosa, nasal cannula in place NECK : Supple, short, no tenderness CHEST : Decreased breath sounds , no tenderness HEART : irregular, systolic murmur ABDOMEN: Marked distention, nontender : Baires cath in place and anchored on the right thigh; scrotal swelling with ulcerations with dried blood, no purulent drainage EXTREMITIES : Chronic LE induration, dressing noted on some areas of the lower extremities, minimal LE tenderness NEUROLOGIC : Coherent, no facial asymmetry, no other gross focality Results & Data Vital Signs (Past 12 Hours) Vital Signs Temp Pulse Pulse Resp BP BP Pulse Ox 03/16/19 05:33 99 H 22 159/94 H 92 03/16/19 04:14 88 L 03/16/19 03:28 93 03/16/19 03:27 100 H 22 170/70 H 91 03/16/19 02:50 36.8 C 100 H 20 186/108 H 95 Laboratory Results Laboratory Results WBC 12.33 K/uL (4.8-10.8) H 03/16/19 04:47 RBC 4.96 M/uL (4.7-6.1) 03/16/19 04:47 Hgb 14.4 g/dL (14.0-18.0) 03/16/19 04:47 Hct 44.5 % (42-52) 03/16/19 04:47 MCV 89.7 fL (80-100) 03/16/19 04:47 MCH 29.0 pg (25-34) 03/16/19 04:47 MCHC 32.4 g/dL (32-36) 03/16/19 04:47 RDW Std Deviation 57.7 fL (36.4-46.3) H 03/16/19 04:47 RDW Coeff of Shadi 17.7 % (11.5-14.5) H 03/16/19 04:47 Plt Count 239 K/uL (130-400) 03/16/19 04:47 MPV 10.1 fL (7.4-10.4) 03/16/19 04:47 Immature Gran % (Auto) 0.3 % 03/16/19 04:47 Neut % (Auto) 87.9 % 03/16/19 04:47 Lymph % (Auto) 5.3 % 03/16/19 04:47 [place] % (Auto) 5.8 % 03/16/19 04:47 Eos % (Auto) 0.5 % 03/16/19 04:47 Baso % (Auto) 0.2 % 03/16/19 04:47 Immature Gran # (Auto) 0.04 K/uL (0.00-0.02) H 03/16/19 04:47 Neut # (Auto) 10.84 K/uL (1.4-6.5) H 03/16/19 04:47 Lymph # (Auto) 0.65 K/uL (1.2-3.4) L 03/16/19 04:47 [place] # (Auto) 0.71 K/uL (0.11-0.59) H 03/16/19 04:47 Eos # (Auto) 0.06 K/uL (0-0.5) 03/16/19 04:47 Baso # (Auto) 0.03 K/uL (0-0.2) 03/16/19 04:47 Absolute Nucleated RBC 0.03 K/uL (0-0) H 03/16/19 04:47 Nucleated RBC % (auto) 0.2 % 03/16/19 04:47 Sodium 135 mmol/L (136-145) L 03/16/19 04:47 Potassium 4.7 mmol/L (3.5-5.1) 03/16/19 04:47 Chloride 102 mmol/L (98-107) 03/16/19 04:47 Carbon Dioxide 25 mmol/L (21-32) 03/16/19 04:47 Anion Gap 8.0 (3-11) 03/16/19 04:47 BUN 23 mg/dl (7-18) H 03/16/19 04:47 Creatinine 1.24 mg/dl (0.6-1.4) 03/16/19 04:47 Est Cr Clr Drug Dosing 71.7 ml/min 03/16/19 04:47 Est GFR ( Amer) 64.1 03/16/19 04:47 Est GFR (Non-Af Amer) 55.3 03/16/19 04:47 BUN/Creatinine Ratio 18.1 (10-20) 03/16/19 04:47 Glucose 182 mg/dl (70-99) H 03/16/19 04:47 POC Lactic Acid Indra 1.87 mmol/L (0.90-1.70) H 03/16/19 04:51 Calcium 8.5 mg/dl (8.5-10.1) 03/16/19 04:47 Total Bilirubin 0.8 mg/dl (0.2-1) 03/16/19 04:47 AST 14 U/L (15-37) L 03/16/19 04:47 ALT 13 U/L (12-78) 03/16/19 04:47 Alkaline Phosphatase 64 U/L (45-117) 03/16/19 04:47 Troponin I < 0.015 ng/ml (0-0.045) 03/16/19 04:47 NT-Pro-B Natriuret Pep 4362 pg/ml (0-1800) H 03/16/19 04:47 Total Protein 7.9 gm/dl (6.4-8.2) 03/16/19 04:47 Albumin 3.0 gm/dl (3.4-5.0) L 03/16/19 04:47 Globulin 4.9 gm/dl (2.5-4.0) H 03/16/19 04:47 Albumin/Globulin Ratio 0.6 (0.9-2) L 03/16/19 04:47 Procalcitonin 0.20 ng/ml (0-0.5) 03/16/19 04:47 Diagnostic Findings Chest x-ray as per my interpretation atelectasis, congestion, cardiomegaly. EKG as per my interpretation : Rate 105, A. fib LAD, LAFB, T wave flattening lateral leads
[2019-03-16] MEDS ORDERED: XOPENEX/ATROVENT 1.25mg/0.5MG NEB COMBO NEB STA (07:06)
[2019-03-16] MEDS ORDERED: METOPROLOL SUCC 50MG EXT REL TAB PO ONE (07:15)
[2019-03-16] MEDS ORDERED: LEVALBUTEROL 1.25MG/0.5ML NEB INH ONE (07:15)
[2019-03-16] MEDS ORDERED: IPRATROPIUM BROMIDE NEB SOLN 0.02% 2.5 ML VIAL INH ONE (07:15)
--- NOTE | 2019-03-16 07:23 | XRay Report ---
XR chest 1V portable CLINICAL HISTORY: 78 years-old Male presenting with shortness of breath after trauma. TECHNIQUE: Portable upright AP view of the chest was obtained. COMPARISON: 08/24/2018. FINDINGS: Atherosclerosis of the aortic arch. Cardiac silhouette enlarged. Mild pulmonary vascular prominence. Prominence of interstitium greatest at the lung bases, right greater than left. This is overall less impressive than on the prior exam. No other focal opacity. No large effusion or pneumothorax. Degener ative changes of the thoracic spine. Degenerative changes of the shoulders. Upper abdomen normal. IMPRESSION: 1. Cardiomegaly with mild volume overload and congestive change. No arminda pulmonary edema. Electronically signed by: Ang Esquivel M.D. 03/16/2019 7:22 AM
[2019-03-16] MEDS ORDERED: DEXTROSE 50% 50 ML SYRINGE IV PRN ×2 (08:15→08:48)
[2019-03-16] MEDS ORDERED: GLUCOSE 10 TABS/TUBE PO PRN ×2 (08:15→08:48)
[2019-03-16] MEDS ORDERED: GLUCAGON FOR INJ 1 MG VIAL IM PRN (08:15)
[2019-03-16] MEDS ORDERED: GLUCOSE 40% GEL 15 GM TUBE PO PRN ×2 (08:15→08:48)
[2019-03-16] MEDS ORDERED: CARBOHYDRATES FOR HYPOGLYCEMIA PO PRN ×2 (08:15→08:48)
--- NOTE | 2019-03-16 08:41 | Ultrasound Report ---
US venous doppler LE CLINICAL HISTORY: 78 years-old Male presenting with leg swelling. TECHNIQUE: Real-time grayscale and color and spectral Doppler ultrasound imaging of the veins of the bilateral lower extremities was performed. Compression and augmentation were also utilized. COMPARISON: 05/02/2017. FINDINGS: RIGHT: Common femoral vein: Patent. Greater saphenous vein (superficial): Patent. Deep femoral vein: Patent. Femoral vein: Patent. Popliteal vein: Patent. Calf veins: Patent. LEFT: Common femoral vein: Patent. Greater saphenous vein (superficial): Patent. Deep femoral vein: Patent. Femoral vein: Patent. Popliteal vein: Patent. Calf veins: Patent. Other: Subcutaneous edema in the bilateral popliteal fossae. IMPRESSION: 1. No evidence of deep venous thrombosis. 2. Subcutaneous edema in the bilateral popliteal fossae. Electronically signed by: Ang Esquivel M.D. 03/16/2019 8:39 AM
--- NOTE | 2019-03-16 08:43 | Ultrasound Report ---
US abdomen ltd ascites CLINICAL HISTORY: 78 years-old Male presenting with abd distension, concern for ascites. TECHNIQUE: Real-time grayscale ultrasound imaging of the abdomen was performed for a focused evaluati on for ascites. COMPARISON: CT of the abdomen and pelvis from 12/28/2018. FINDINGS: The midline in 4 quadrants of the abdomen were evaluated. No ascites evident. IMPRESSION: 1. No ascites. Electronically signed by: Ang Esquivel M.D. 03/16/2019 8:42 AM
[2019-03-16] MEDS ORDERED: IPRATROPIUM BROMIDE NEB SOLN 0.02% 2.5 ML VIAL INH PRN (08:48)
[2019-03-16] MEDS ORDERED: LEVALBUTEROL 1.25MG/0.5ML NEB INH PRN (08:48)
[2019-03-16] MEDS ORDERED: PROMETHAZINE HCL 12.5 MG in SODIUM CHLORIDE 0.9% 50 ML IV PRN (08:48)
[2019-03-16] MEDS ORDERED: GLUCAGON FOR INJ 1 MG VIAL SQ PRN (08:48)
[2019-03-16] MEDS ORDERED: XOPENEX/ATROVENT 1.25mg/0.5MG NEB COMBO NEB PRN (08:48)
[2019-03-16] MEDS ORDERED: INSULIN GLARGINE SOLOSTAR 100 UNITS/ML 3 ML PEN SQ SCH (09:00)
[2019-03-16 09:41] LABS: Estimated Average Glucose 180 mg/dl; Hemoglobin A1C 7.9 % (4.5-5.6)
[2019-03-16 09:43] LABS: Partial Thromboplastin Ratio 1.1; Partial Thromboplastin Time 29.6 Seconds (21.0-31.0)
[2019-03-16] MEDS ORDERED: POLYETHYLENE (MIRALAX) 17 GM PACK PO PRN (10:23)
[2019-03-16] MEDS: INSULIN ASPART 100 UNITS/ML 3 ML PEN SC SCH ×4 (10:38→22:05)
[2019-03-16] MEDS: LOSARTAN POTASSIUM 50 MG TAB PO SCH (10:38)
[2019-03-16] MEDS: ASPIRIN 81 MG ECTAB PO SCH (10:39)
[2019-03-16] MEDS: LACTOBACILLUS ACIDOPHILUS (FLORANEX) TAB PO SCH (10:39)
[2019-03-16] MEDS: FERROUS SULFATE 325 MG TAB PO SCH ×2 (10:39→16:49)
[2019-03-16] MEDS: cephALEXin 500 MG CAP PO SCH ×3 (10:40→22:21)
[2019-03-16] MEDS: POTASSIUM CHLORIDE 10 MEQ TABCR PO SCH ×2 (10:40→22:22)
[2019-03-16] MEDS: FINASTERIDE 5 MG TAB PO SCH (10:40)
[2019-03-16] MEDS: PANTOprazole 40 MG TAB PO SCH ×2 (10:40→22:23)
[2019-03-16] MEDS: ENOXAPARIN INJ 40 MG/0.4 ML SYR SQ SCH (10:41)
[2019-03-16] MEDS: levETIRAcetam 500 MG TAB PO SCH ×2 (10:41→22:21)
[2019-03-16] MEDS ORDERED: EUCERIN CR 120 GM JAR EXT PRN (10:56)
[2019-03-16] MEDS: DOCUSATE SODIUM 100 MG CAP PO SCH ×2 (11:27→22:21)
--- NOTE | 2019-03-16 13:03 | Hospitalist Progress Note ---
Date of Service March 16, 2019 Assessment & Plan (1) Acute hypoxemic respiratory failure: Acute respiratory failure with hypoxia Acute on chronic diastolic heart failure CXR:Cardiomegaly with mild volume overload and congestive change. No arminda pulmonary edema. Last ECHO:Jun 2018: EF > 70% Continue IV diuretics 40 mg twice daily Monitor I's and O's, electrolytes, renal function, daily weight Fluid restriction Cardiology consulted Continue supplemental oxygen as needed JUAN MANUEL--CPAP noncompliant; could have obesity hypoventilation syndrome contributing Hypertension Stable continue losartan, metoprolol Chronic atrial fibrillation Rate controlled Not on anticoagulation secondary to recurrent scrotal hemorrhage Continue Digoxin, Metoprolol Mechanical Fall PT/OT Volume overload Secondary to CHF ABD USD: No ascites Venous Doppler: No DVT Chronic scrotal wounds/LE venous stasis ulcers H/O scrotal hemangioma S/P resection, ? Embolization by IR Continue Keflex started by ID as outpatient continue wound care DM II Hold PO meds A1C: 7.9 Continue ISS, basal Insulin Monitor BGs H/O Traumatic intracranial hemorrhage H/O seizure disorder Continue Keppra H/O Chronic Indwelling Patiño Continue patiño catheter DVT Px: Lovenox SQ Code Status Full code Disposition: PT/OT prior to discharge Subjective Patient is seen and examined at bedside Denies any chest pain, shortness of breath, dizziness, nausea, abdominal pain Saturating 97% on 2 L of supplemental oxygen Reports chronic scrotal wound No other complaints Review of Systems Review of Systems: All systems reviewed & are unremarkable except as noted in HPI & below Physical Exam Physical Exam: Physical Exam: Vitals signs as noted above General Appearance:Morbidly Obese, no apparent distress Head: normocephalic, Atraumatic Eyes: normal inspection, EOMI Neck: supple, Trachea midline Respiratory/Chest: Decreased breath sounds, CTA Cardiovascular: Irregularly irregular, + murmur Abdomen/GI:Soft, Non tender, Bowel sounds present : Chronic Scrotal swelling, wound Extremities/Musculoskelatal:normal inspection, Chronic B/L LE venous stasis changes, edema Neurologic/Psych:AAOX3, grossly no focal neurological deficits Skin: normal color, warm Results & Data Vital Signs (Past 12 Hours) Vital Signs Temp Pulse Pulse Resp BP BP Pulse Ox 03/16/19 11:39 79 03/16/19 11:12 36.7 C 73 21 137/57 L 97 09/14/19 07:38 86 22 93 03/16/19 07:35 86 25 H 118/52 L 94 03/16/19 07:30 36.6 C 73 18 118/52 L 89 L 03/16/19 05:33 99 H 22 159/94 H 92 03/16/19 04:14 88 L 03/16/19 03:28 93 03/16/19 03:27 100 H 22 170/70 H 91 03/16/19 02:50 36.8 C 100 H 20 186/108 H 95 Laboratory Results Short CBC 03/16/19 Range/Units 04:47 WBC 12.33 H (4.8-10.8) K/uL Hgb 14.4 (14.0-18.0) g/dL Hct 44.5 (42-52) % Plt Count 239 (130-400) K/uL BMP 03/16/19 04:47 Sodium 135 L Potassium 4.7 Chloride 102 Carbon Dioxide 25 BUN 23 H Creatinine 1.24 Glucose 182 H Calcium 8.5 Cardiac Enzymes 03/16/19 Range/Units 04:47 Troponin I < 0.015 (0-0.045) ng/ml Liver Function 03/16/19 Range/Units 04:47 Total Bilirubin 0.8 (0.2-1) mg/dl AST 14 L (15-37) U/L ALT 13 (12-78) U/L Alkaline Phosphatase 64 (45-117) U/L Albumin 3.0 L (3.4-5.0) gm/dl Diagnostic Findings ABD USD: No ascites. Venous Doppler: No evidence of deep venous thrombosis. Subcutaneous edema in the bilateral popliteal fossae.
[2019-03-16 14:10] LABS: iSTAT Allen Test Pass; iSTAT Arterial Blood Gas HCO3 23 meg/L (19-24); iSTAT Arterial Blood Gas pCO2 37 mmHg (35-46); iSTAT Arterial Blood Gas pO2 65 mmHg (80-95); iSTAT Carbon Dioxide 24 mEq/l (24-31); iSTAT Site R Radial
[2019-03-16] MEDS: FUROSEMIDE 40 MG in SYRINGE 0 ML IV SCH (16:49)
[2019-03-16] MEDS: INSULIN GLARGINE SOLOSTAR 100 UNITS/ML 3 ML PEN SQ SCH (22:22)
[2019-03-17] MEDS: HYDROCODONE/ACETAMOPHEN 5/325MG TAB PO PRN ×3 (00:36→23:17)
[2019-03-17] MEDS: HYDROmorphone INJ 0.5 MG/0.5 ML SYR IV PRN (03:39)
[2019-03-17 06:43] LABS: Basophils # (auto) 0.04 K/uL (0-0.2); Basophils % (auto) 0.4 %; Eosinophils # (auto) 0.51 K/uL (0-0.5); Eosinophils % (auto) 5.1 %; Hematocrit (blood only) 45.7 % (42-52); Hemoglobin 14.4 g/dL (14.0-18.0); Immature Granulocytes # (auto) 0.04 K/uL (0.00-0.02); Immature Granulocytes % (auto) 0.4 %; Lymphocytes # (auto) 0.87 K/uL (1.2-3.4); Lymphocytes % (auto) 8.7 %; Mean Corpuscular Hemoglobin 28.9 pg (25-34); Mean Corpuscular Hgb Conc 31.5 g/dL (32-36); Mean Corpuscular Volume 91.8 fL (80-100); Monocytes # (auto) 0.61 K/uL (0.11-0.59); Monocytes % (auto) 6.1 %; Neutrophils # (auto) 7.97 K/uL (1.4-6.5); Neutrophils % (auto) 79.3 %; Platelet Count 223 K/uL (130-400); RDW Coefficient of Variation 17.9 % (11.5-14.5); RDW Standard Deviation 59.6 fL (36.4-46.3); Red Blood Count 4.98 M/uL (4.7-6.1); White Blood Count 10.04 K/uL (4.8-10.8)
[2019-03-17 07:07] LABS: BUN Creatinine Ratio 17.4 (10-20); Calcium 8.5 mg/dl (8.5-10.1); Creatinine Clr Calc Pharmacy 71.5 ml/min; Est GFR (African American) 62.3; Est GFR (Non-African American) 53.8; Magnesium 2.4 mg/dl (1.8-2.4); Potassium 4.2 mmol/L (3.5-5.1)
[2019-03-17] MEDS: LACTOBACILLUS ACIDOPHILUS (FLORANEX) TAB PO SCH (08:10)
[2019-03-17] MEDS: METOPROLOL SUCC 50MG EXT REL TAB PO SCH (08:11)
[2019-03-17] MEDS: LOSARTAN POTASSIUM 50 MG TAB PO SCH (08:11)
[2019-03-17] MEDS: PANTOprazole 40 MG TAB PO SCH ×2 (08:11→19:55)
[2019-03-17] MEDS: FUROSEMIDE 40 MG in SYRINGE 0 ML IV SCH ×2 (08:11→18:34)
[2019-03-17] MEDS: DOCUSATE SODIUM 100 MG CAP PO SCH ×2 (08:12→19:54)
[2019-03-17] MEDS: cephALEXin 500 MG CAP PO SCH ×3 (08:12→19:56)
[2019-03-17] MEDS: POTASSIUM CHLORIDE 10 MEQ TABCR PO SCH ×2 (08:12→19:55)
[2019-03-17] MEDS: levETIRAcetam 500 MG TAB PO SCH ×2 (08:13→19:56)
[2019-03-17] MEDS: FINASTERIDE 5 MG TAB PO SCH (08:13)
[2019-03-17] MEDS: FERROUS SULFATE 325 MG TAB PO SCH ×2 (08:13→18:27)
[2019-03-17] MEDS: ASPIRIN 81 MG ECTAB PO SCH (08:13)
[2019-03-17] MEDS: DIGOXIN 0.125 MG TAB PO SCH (08:14)
[2019-03-17] MEDS: INSULIN GLARGINE SOLOSTAR 100 UNITS/ML 3 ML PEN SQ SCH ×2 (08:14→21:24)
[2019-03-17] MEDS: INSULIN ASPART 100 UNITS/ML 3 ML PEN SC SCH ×4 (08:15→21:11)
[2019-03-17] MEDS: ENOXAPARIN INJ 40 MG/0.4 ML SYR SQ SCH (08:17)
--- NOTE | 2019-03-17 09:02 | Cardiology Consultation ---
Date of Consultation March 17, 2019 Assessment & Plan (1) Venous stasis ulcers of both lower extremities: (2) Chronic venous insufficiency: (3) Morbid obesity: (4) Chronic diastolic heart failure: (5) Chronic atrial fibrillation: (6) Scrotal varicose veins: This is a 78-year-old male patient who is morbidly obese and has multiple complications related to his obesity. According to the patient, he was taken to the hospital when he if fell from his chair and his could not pick him up off the floor. He has a chronic indwelling Baires catheter, scrotal ulcers and chronic lower extremity edema. According to the patient he was to be evaluated by Dr. Robles for possible intervention on his venous stasis. During this admission you could have Dr. Robles reevaluate him. I will consult physical therapy to make sure he is able to ambulate. Consideration would be for at least short-term placement. History of Present Illness Attending Physician: Dhiraj Machado MD History of Present Illness This is a 78-year-old male patient with multiple medical problems related to complications from obesity. He has a history of chronic atrial fibrillation and is not taking anticoagulation from bleeding episodes and trauma as described below. He is a diabetic with metabolic syndrome. He has chronic lower extremity edema with tissue breakdown and leakage of fluid. He has a chronic indwelling Baires which is changed once a month by his urologist. He was in his usual state of health. He describes his home situation as moving from a chair to the bathroom with the aid of a walker and then back to a chair. He has not left his house since he could remember. He lives with his who cares for him. On the day of admission, his changed towel that is on his chair and when he went to sit back down he slid off off his recliner onto the floor. His could not pick him up off the floor and called the ambulance. The patient was brought into the hospital where he has been admitted. Past medical history: 1. Chronic rate controlled atrial fibrillation. - Anticoagulation discontinued due to large volume bleeding related to large perineal/scrotal vascular malformation as well as history of small intracranial bleed secondary to trauma - Diltiazem discontinued in the past secondary to bradycardia. - tolerating low-dose aspirin 2. Chronic diastolic heart failure with worsening multifactorial lower extremity edema 3. Morbid obesity - Refused weight assessment today 4. HTN - controlled 5. Dyslipidemia goal LDL less than 100mg/dL - controlled 6. H/o mechanical fall with resultant head trauma, small frontal parenchymal hemorrhage, and suboccipital hematoma. - no recurrent falls over the last 6 months 7. JUAN MANUEL - intolerant to CPAP 8. Insulin resistance/ Metabolic syndrome Allergies Allergy/AdvReac Type Severity Reaction Status Date / Time metronidazole Allergy Severe see below Verified 03/16/19 03:28 amoxicillin Allergy Intermediate rash Verified 03/16/19 03:28 Home Medications Home Medications Medication Instructions Recorded Confirmed Type Lactobacillus acidophilus 10,000 mmu cells PO DAILY 06/16/18 03/16/19 History [Acidophilus] aspirin 81 mg PO DAILY 06/16/18 03/16/19 History digoxin 125 mcg PO DAILY 06/16/18 03/16/19 History ferrous sulfate 325 mg PO BID 06/16/18 03/16/19 History finasteride 5 mg PO DAILY 06/16/18 03/16/19 History furosemide 20 mg PO DAILY 06/16/18 03/16/19 History losartan 50 mg PO DAILY 06/16/18 03/16/19 History metformin 500 mg PO DAILY 06/16/18 03/16/19 History metoprolol succinate 200 mg PO DAILY 06/16/18 03/16/19 History pantoprazole 40 mg PO BID 06/16/18 03/16/19 History potassium chloride 10 meq PO DAILY 06/16/18 03/16/19 History tramadol 50 mg PO Q6 PRN #10 tab 06/28/18 03/16/19 Rx cephalexin 500 mg PO TID 03/16/19 03/16/19 History hydrocodone-acetaminophen 1 tab PO Q6H PRN 03/16/19 03/16/19 History levetiracetam 500 mg PO BID 03/16/19 03/16/19 History Patient History Medical History 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, with fat layer exposed (Acute) Chronic venous insufficiency (Chronic) Acute diastolic (congestive) heart failure Hypoxia DVT prophylaxis CIERRA (acute kidney injury) Leukocytosis Diabetes mellitus type 2 with complications DVT prophylaxis Severe sepsis Esophageal candidiasis (Acute) Peripheral arterial disease Complicated UTI (urinary tract infection) (Acute) Chronic indwelling Baires catheter (Chronic) Acute urinary retention (Acute) Atrial fibrillation with RVR (Acute) Acute renal insufficiency (Acute) Rhabdomyolysis (Acute) Scrotal varicose veins (Chronic) Ulcer of scrotum (Chronic) Barretts esophagus ICH (intracerebral hemorrhage) (Chronic) Gastric ulcer with hemorrhage (Chronic) Hypertension Diabetes (Chronic) Chronic diastolic CHF (congestive heart failure) (Chronic) Chronic a-fib Morbid obesity (Acute) Acquired claw toe of left foot (Acute) Acquired claw toe of right foot (Acute) Bilateral swelling of feet (Acute) Callus (Acute) Diabetes mellitus with diabetic polyneuropathy (Acute) Skin ulcer of left foot including toes (Acute) Acquired buried penis (Chronic) BPH without urinary obstruction (Chronic) Benign hypertension (Chronic) Chronic diastolic CHF (congestive heart failure) (Chronic) DM (diabetes mellitus), type 2, uncontrolled w/ophthalmic complication (Chronic) Diverticulosis of colon (without mention of hemorrhage) (Chronic) Exertional dyspnea (Chronic) Gastric ulcer with hemorrhage but without obstruction (Chronic) H/O Clostridium difficile infection (Chronic) Hemangioma of skin (Chronic) History of chronic atrial fibrillation (Chronic) Morbid obesity (Chronic) JUAN MANUEL (obstructive sleep apnea) (Chronic) Sepsis (Chronic) Symptomatic anemia (Chronic) Urinary retention (Chronic) Surgical History S/P cholecystectomy (Chronic) S/P tonsillectomy and adenoidectomy (Chronic) History of total replacement of right hip (Chronic) Family History Other No significant family history Social History Preferred Language: [place] 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 Ability: Effective Architectural Superintendent Required: No Beliefs That Will Affect Care: None marital status: Current Living Situation: Spouse Other Information That Helps Us Care for You: No Feels Safe at Home: Yes Safety Concerns: Feels Safe At This Time Smoking Status: Former smoker Do You Dip or Chew Tobacco: No ; Second Hand Exposure: No ; Tobacco Cessation Education Requested by Patient: No Hx Alcohol Use: No Hx Substance Use: No Review of Systems Review of Systems: All systems reviewed & are unremarkable except as noted in HPI & below Nothing additional to add except the patient was diagnosed with sleep apnea and probable hypoventilation syndrome from obesity approximately 5 years ago and has never followed up with the recommendation for nightly CPAP. Physical Exam Physical Exam: General: Morbidly obese male, examined in a chair Head: normocephalic, no masses, lesions, tenderness or abnormalities Eyes: conjunctiva are pink and non-injected, sclera clear Neck: supple, no adenopathy, no bruits, normal jugular venous pulse, no hepatojugular reflux Chest: normal shape and normal respiratory effort Lungs: clear to auscultation and percussion Cardiac Exam: - irregular rate & rhythm, no murmurs gallops or rubs - normal S1, normal S2 Pulses: 2(+) throughout Abdomen: abdomen soft, non-tender, no abnormal masses and no hepatosplenomegaly Musculoskeletal: no gait disturbance, no joint inflammation, no deforming arthritis Extremities: Chronic lower extremity edema with skin changes Neuro: grossly normal exam Results & Data Vital Signs (Past 12 Hours) Vital Signs Temp Pulse Pulse Pulse Resp BP Pulse Ox 03/17/19 08:17 150/82 H 03/17/19 08:14 84 03/17/19 07:02 36.5 C 77 17 95/54 L 96 03/17/19 03:30 36.5 C 71 20 112/65 96 03/16/19 23:13 37.2 C 67 19 131/65 94 Laboratory Results Laboratory Results - last 24 hr 03/16/19 03/16/19 03/16/19 09:15 09:15 09:15 WBC RBC Hgb Hct MCV MCH MCHC RDW Std Deviation RDW Coeff of Shadi Plt Count MPV Immature Gran % (Auto) Neut % (Auto) Lymph % (Auto) [place] % (Auto) Eos % (Auto) Baso % (Auto) Immature Gran # (Auto) Neut # (Auto) Lymph # (Auto) [place] # (Auto) Eos # (Auto) Baso # (Auto) APTT 29.6 PTT Ratio 1.1 Sample Site POC pH POC pCO2 POC pO2 POC HCO3 POC Total CO2 POC Base Excess ABG pH ABG pCO2 ABG pO2 ABG HCO3 POC ABG O2 Sat ABG O2 Saturation ABG Base Excess Dimitry Test Barometric Pressure Oxygen Given Sodium Potassium Chloride Carbon Dioxide Anion Gap BUN Creatinine Est Cr Clr Drug Dosing Est GFR ( Amer) Est GFR (Non-Af Amer) BUN/Creatinine Ratio Glucose POC Glucose Estimat Average Glucose Hemoglobin A1c Lactate 1.7 Calcium Magnesium 2.2 Digoxin 03/16/19 03/16/19 03/16/19 09:15 09:15 09:15 WBC RBC Hgb Hct MCV MCH MCHC RDW Std Deviation RDW Coeff of Shadi Plt Count MPV Immature Gran % (Auto) Neut % (Auto) Lymph % (Auto) [place] % (Auto) Eos % (Auto) Baso % (Auto) Immature Gran # (Auto) Neut # (Auto) Lymph # (Auto) [place] # (Auto) Eos # (Auto) Baso # (Auto) APTT PTT Ratio Sample Site POC pH POC pCO2 POC pO2 POC HCO3 POC Total CO2 POC Base Excess ABG pH Cancelled ABG pCO2 Cancelled ABG pO2 Cancelled ABG HCO3 Cancelled POC ABG O2 Sat ABG O2 Saturation Cancelled ABG Base Excess Cancelled Dimitry Test Cancelled Barometric Pressure Cancelled Oxygen Given Cancelled Sodium Potassium Chloride Carbon Dioxide Anion Gap BUN Creatinine Est Cr Clr Drug Dosing Est GFR ( Amer) Est GFR (Non-Af Amer) BUN/Creatinine Ratio Glucose POC Glucose Estimat Average Glucose 180 Hemoglobin A1c 7.9 H Lactate Calcium Magnesium Digoxin 0.7 L 03/16/19 03/16/19 03/16/19 10:26 11:11 13:58 WBC RBC Hgb Hct MCV MCH MCHC RDW Std Deviation RDW Coeff of Shadi Plt Count MPV Immature Gran % (Auto) Neut % (Auto) Lymph % (Auto) [place] % (Auto) Eos % (Auto) Baso % (Auto) Immature Gran # (Auto) Neut # (Auto) Lymph # (Auto) [place] # (Auto) Eos # (Auto) Baso # (Auto) APTT PTT Ratio Sample Site R Radial POC pH 7.40 POC pCO2 37 POC pO2 65 L POC HCO3 23 POC Total CO2 24 POC Base Excess -2.0 ABG pH Cancelled ABG pCO2 Cancelled ABG pO2 Cancelled ABG HCO3 Cancelled POC ABG O2 Sat 92.0 ABG O2 Saturation Cancelled ABG Base Excess Cancelled Dimitry Test Cancelled Pass Barometric Pressure Cancelled Oxygen Given Cancelled Sodium Potassium Chloride Carbon Dioxide Anion Gap BUN Creatinine Est Cr Clr Drug Dosing Est GFR ( Amer) Est GFR (Non-Af Amer) BUN/Creatinine Ratio Glucose POC Glucose 193 H Estimat Average Glucose Hemoglobin A1c Lactate Calcium Magnesium Digoxin 03/16/19 03/16/19 03/17/19 16:22 20:26 06:00 WBC 10.04 RBC 4.98 Hgb 14.4 Hct 45.7 MCV 91.8 MCH 28.9 MCHC 31.5 L RDW Std Deviation 59.6 H RDW Coeff of Shadi 17.9 H Plt Count 223 MPV 10.0 Immature Gran % (Auto) 0.4 Neut % (Auto) 79.3 Lymph % (Auto) 8.7 [place] % (Auto) 6.1 Eos % (Auto) 5.1 Baso % (Auto) 0.4 Immature Gran # (Auto) 0.04 H Neut # (Auto) 7.97 H Lymph # (Auto) 0.87 L [place] # (Auto) 0.61 H Eos # (Auto) 0.51 H Baso # (Auto) 0.04 APTT PTT Ratio Sample Site POC pH POC pCO2 POC pO2 POC HCO3 POC Total CO2 POC Base Excess ABG pH ABG pCO2 ABG pO2 ABG HCO3 POC ABG O2 Sat ABG O2 Saturation ABG Base Excess Dimitry Test Barometric Pressure Oxygen Given Sodium Potassium Chloride Carbon Dioxide Anion Gap BUN Creatinine Est Cr Clr Drug Dosing Est GFR ( Amer) Est GFR (Non-Af Amer) BUN/Creatinine Ratio Glucose POC Glucose 139 H 118 H Estimat Average Glucose Hemoglobin A1c Lactate Calcium Magnesium Digoxin 03/17/19 03/17/19 06:00 07:00 WBC RBC Hgb Hct MCV MCH MCHC RDW Std Deviation RDW Coeff of Shadi Plt Count MPV Immature Gran % (Auto) Neut % (Auto) Lymph % (Auto) [place] % (Auto) Eos % (Auto) Baso % (Auto) Immature Gran # (Auto) Neut # (Auto) Lymph # (Auto) [place] # (Auto) Eos # (Auto) Baso # (Auto) APTT PTT Ratio Sample Site POC pH POC pCO2 POC pO2 POC HCO3 POC Total CO2 POC Base Excess ABG pH ABG pCO2 ABG pO2 ABG HCO3 POC ABG O2 Sat ABG O2 Saturation ABG Base Excess Dimitry Test Barometric Pressure Oxygen Given Sodium 137 Potassium 4.2 Chloride 102 Carbon Dioxide 29 Anion Gap 6.0 BUN 22 H Creatinine 1.27 Est Cr Clr Drug Dosing 71.5 Est GFR ( Amer) 62.3 Est GFR (Non-Af Amer) 53.8 BUN/Creatinine Ratio 17.4 Glucose 127 H POC Glucose 130 H Estimat Average Glucose Hemoglobin A1c Lactate Calcium 8.5 Magnesium 2.4 Digoxin Medications Administered Current Inpatient Medications Acetaminophen (Tylenol) 650 mg PO Q4H PRN PRN Reason: Pain or Fever Stop: 04/15/19 08:47 Hydrocodone Bitart/Acetaminophen ([place] 5/325) 1 tab PO Q6H PRN PRN Reason: mild pain Stop: 03/30/19 08:47 Last Admin: 03/17/19 06:43 Dose: 1 tab Documented by: Aspirin (Ecotrin Ectab) 81 mg PO DAILY MARIYA Stop: 04/15/19 08:59 Last Admin: 03/17/19 08:13 Dose: 81 mg Documented by: Cephalexin HCl (Keflex) 500 mg PO TID [facility] Stop: 03/26/19 08:59 Last Admin: 03/17/19 08:12 Dose: 500 mg Documented by: Dextrose (Dextrose 50%) 25 - 50 ml IV UD PRN; Protocol PRN Reason: Hypoglycemia Protocol Stop: 04/15/19 08:47 Digoxin (Lanoxin) 0.125 mg PO DAILY [facility] Stop: 04/16/19 08:59 Last Admin: 03/17/19 08:14 Dose: 0.125 mg Documented by: Docusate Sodium (Colace) 100 mg PO BID [facility] Stop: 04/15/19 10:29 Last Admin: 03/17/19 08:12 Dose: 100 mg Documented by: Enoxaparin Sodium (Lovenox) 40 mg SQ QAM [facility] Stop: 04/15/19 08:59 Last Admin: 03/17/19 08:17 Dose: 40 mg Documented by: Ferrous Sulfate (Feosol) 325 mg PO BIDM MARIYA Stop: 04/15/19 08:59 Last Admin: 03/17/19 08:13 Dose: 325 mg Documented by: Finasteride (Proscar) 5 mg PO DAILY [facility] Stop: 04/15/19 08:59 Last Admin: 03/17/19 08:13 Dose: 5 mg Documented by: Glucagon (Glucagen) 1 mg SQ UD PRN; Protocol PRN Reason: Hypoglycemia Protocol Stop: 04/15/19 08:47 Glucose (Glucose 40%) 15 - 30 gm PO UD PRN; Protocol PRN Reason: Hypoglycemia Protocol Stop: 04/15/19 08:47 Glucose (Dex4 Glucose) 4 - 8 tabs PO UD PRN; Protocol PRN Reason: Hypoglycemia Protocol Stop: 04/15/19 08:47 Hydromorphone HCl (Dilaudid) 0.5 mg IV Q4H PRN PRN Reason: Pain Stop: 03/30/19 08:47 Last Admin: 03/17/19 03:39 Dose: 0.5 mg Documented by: Furosemide 40 mg/ Syringe 4 mls @ 4 mls/min IV BID17 MARIYA Stop: 03/17/19 17:00 Last Admin: 03/17/19 08:11 Dose: 4 mls/min Documented by: Promethazine HCl 12.5 mg/ (Sodium Chloride) 50.5 mls @ 202 mls/hr IV Q6H PRN PRN Reason: Nausea And Vomiting Stop: 04/15/19 08:47 Insulin Aspart (Novolog Flexpen) 0 units SC ACHS MARIYA Stop: 04/15/19 08:47 Last Admin: 03/17/19 08:15 Dose: 3 units Documented by: Insulin Glargine (Lantus Solostar Pen) 5 units SQ BID MARIYA Stop: 04/15/19 20:59 Last Admin: 03/17/19 08:14 Dose: 5 units Documented by: Ipratropium [place] (Atrovent 0.02% 0.5mg/2.5ml) 0.5 mg INH Q4H PRN PRN Reason: Shortness Of Breath Or Wheezing Stop: 04/15/19 08:47 Lactobacillus Acidophilus (Floranex) 4 tab PO DAILY [facility] Stop: 04/15/19 08:59 Last Admin: 03/17/19 08:10 Dose: 4 tab Documented by: Levalbuterol HCl (Xopenex 1.25mg/0.5ml Neb) 1.25 mg INH Q4H PRN PRN Reason: Shortness Of Breath Or Wheezing Stop: 04/15/19 08:47 Levetiracetam (Keppra) 500 mg PO BID [facility] Stop: 04/15/19 08:59 Last Admin: 03/17/19 08:13 Dose: 500 mg Documented by: Losartan Potassium (Cozaar) 50 mg PO DAILY [facility] Stop: 04/15/19 08:59 Last Admin: 03/17/19 08:11 Dose: 50 mg Documented by: Metoprolol Succinate (Toprol Xl) 200 mg PO DAILY [facility] Stop: 04/16/19 08:59 Last Admin: 03/17/19 08:11 Dose: 200 mg Documented by: Miscellaneous (Carbohydrates For Hypoglycemia) 15 - 30 gm PO UD PRN PRN Reason: Hypoglycemia Treatment Stop: 04/15/19 08:47 Multi-Ingredient Cream (Hydrocerin) 1 appln EXT BID PRN PRN Reason: Affected Skin Folds Stop: 04/15/19 10:55 Pantoprazole Sodium (Protonix) 40 mg PO BID [facility] Stop: 04/15/19 08:59 Last Admin: 03/17/19 08:11 Dose: 40 mg Documented by: Polyethylene Glycol (Miralax Powder Packet) 17 gm PO DAILY PRN PRN Reason: Constipation Stop: 04/15/19 10:22 Potassium Chloride (Klor-Con M10) 10 meq PO BID [facility] Stop: 04/15/19 08:59 Last Admin: 03/17/19 08:12 Dose: 10 meq Documented by:
--- NOTE | 2019-03-17 09:39 | Emergency Department Note ---
Entered by Ronel Manzo acting as a scribe for Adrienne Valerio DO History of Present Illness General Chief complaint: Fall Stated complaint: fall Time Seen by Provider: 03/16/19 02:36 Source: patient and EMS (insurance marketing rep) History of Present Illness Onset (ago): hour(s) (prior to arrival) Location: lower extremity (fall) Pain Consistency: + other (episode) Exacerbated By: + other (weakness) Associated symptoms: + denies other symptoms (leg pain, arm pain, hip pain, and low back pain) and + weakness The patient is a 78 year old M who presents to the Emergency Room with complaints of an episode of a fall that occurred prior to arrival. The HPI was provided by the insurance marketing rep and the patient. The patient states that he got up to go to the bathroom. He notes that after going to the bathroom, he tried to get back into his chair but missed and fell onto his buttocks. He denies hitting his head. He notes that when he fell, his legs were out. He denies any leg pain. He also denies experiencing any arm pain, hip pain, and low back pain. He states that he does not know why he is in the ED but adds that his called 911. He notes that he has had a normal appetite recently. He denies being on any blood thinners. The rest of the HPI was provided by the insurance marketing rep. He notes that the patient went to get into his power lift chair but missed and fell. He adds that 5 people were needed to lift the patient up because the patient was unable to help. He notes that he asked the patient if he was short of breath. He adds that the patient denied being short of breath but looked dyspneic. He states that the patients has notice that the patient has been progressively getting weak for the past 3 days. He adds that the patient has a Baires catheter in place which only gets changed when he sees an urologist. He notes that the patient has a history of A Fib and does not wear oxygen at home. Home Medications Home Medications Medication Instructions Recorded Confirmed Type Lactobacillus acidophilus 10,000 mmu cells PO DAILY 06/16/18 03/16/19 History [Acidophilus] aspirin 81 mg PO DAILY 06/16/18 03/16/19 History digoxin 125 mcg PO DAILY 06/16/18 03/16/19 History ferrous sulfate 325 mg PO BID 06/16/18 03/16/19 History finasteride 5 mg PO DAILY 06/16/18 03/16/19 History furosemide 20 mg PO DAILY 06/16/18 03/16/19 History losartan 50 mg PO DAILY 06/16/18 03/16/19 History metformin 500 mg PO DAILY 06/16/18 03/16/19 History metoprolol succinate 200 mg PO DAILY 06/16/18 03/16/19 History pantoprazole 40 mg PO BID 06/16/18 03/16/19 History potassium chloride 10 meq PO DAILY 06/16/18 03/16/19 History tramadol 50 mg PO Q6 PRN #10 tab 06/28/18 03/16/19 Rx cephalexin 500 mg PO TID 03/16/19 03/16/19 History hydrocodone-acetaminophen 1 tab PO Q6H PRN 03/16/19 03/16/19 History levetiracetam 500 mg PO BID 03/16/19 03/16/19 History Allergies Allergy/AdvReac Type Severity Reaction Status Date / Time metronidazole Allergy Severe see below Verified 03/16/19 03:28 amoxicillin Allergy Intermediate rash Verified 03/16/19 03:28 Past Med/Surg History Medical History 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, with fat layer exposed (Acute) Chronic venous insufficiency (Chronic) Acute diastolic (congestive) heart failure Hypoxia DVT prophylaxis CIERRA (acute kidney injury) Leukocytosis Diabetes mellitus type 2 with complications DVT prophylaxis Severe sepsis Esophageal candidiasis (Acute) Peripheral arterial disease Complicated UTI (urinary tract infection) (Acute) Chronic indwelling Baires catheter (Chronic) Acute urinary retention (Acute) Atrial fibrillation with RVR (Acute) Acute renal insufficiency (Acute) Rhabdomyolysis (Acute) Scrotal varicose veins (Chronic) Ulcer of scrotum (Chronic) Barretts esophagus ICH (intracerebral hemorrhage) (Chronic) Gastric ulcer with hemorrhage (Chronic) Hypertension Diabetes (Chronic) Chronic diastolic CHF (congestive heart failure) (Chronic) Chronic a-fib Morbid obesity (Acute) Acquired claw toe of left foot (Acute) Acquired claw toe of right foot (Acute) Bilateral swelling of feet (Acute) Callus (Acute) Diabetes mellitus with diabetic polyneuropathy (Acute) Skin ulcer of left foot including toes (Acute) Acquired buried penis (Chronic) BPH without urinary obstruction (Chronic) Benign hypertension (Chronic) Chronic diastolic CHF (congestive heart failure) (Chronic) DM (diabetes mellitus), type 2, uncontrolled w/ophthalmic complication (Chronic) Diverticulosis of colon (without mention of hemorrhage) (Chronic) Exertional dyspnea (Chronic) Gastric ulcer with hemorrhage but without obstruction (Chronic) H/O Clostridium difficile infection (Chronic) Hemangioma of skin (Chronic) History of chronic atrial fibrillation (Chronic) Morbid obesity (Chronic) JUAN MANUEL (obstructive sleep apnea) (Chronic) Sepsis (Chronic) Symptomatic anemia (Chronic) Urinary retention (Chronic) Surgical History S/P cholecystectomy (Chronic) S/P tonsillectomy and adenoidectomy (Chronic) History of total replacement of right hip (Chronic) Family History Other No significant family history Social History Preferred Language: Israeli 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 Ability: Effective Candle Cutter Required: No Beliefs That Will Affect Care: None marital status: Current Living Situation: Spouse Other Information That Helps Us Care for You: No Feels Safe at Home: Yes Safety Concerns: Feels Safe At This Time Smoking Status: Former smoker Do You Dip or Chew Tobacco: No ; Second Hand Exposure: No ; Tobacco Cessation Education Requested by Patient: No Hx Alcohol Use: No Hx Substance Use: No Review of Systems See HPI for pertinent positives & negatives. and A total of 10 systems reviewed and were otherwise negative Physical Exam Vital Signs Vital Signs - 24 hr 03/16/19 02:50 03/16/19 03:27 03/16/19 03:28 Temperature 98.2 F Temperature Source Oral Sepsis Recent Fever Within 48 Hours No Sepsis Action Taken by Nursing No Action Required Oxygen Flow Rate - Titration Pulse Oximetry Post Tiitration Pulse Rate 100 H Pulse Rate [Finger] 100 H Respiratory Rate 20 22 Blood Pressure 186/108 H Blood Pressure [Right Arm] 170/70 H Blood Pressure Mean 134 Blood Pressure Mean [Right Arm] 103 Pulse Oximetry 95 91 93 Oxygen Delivery Method Room Air Nasal Cannula Nasal Cannula Oxygen Flow Rate 2 2 03/16/19 04:14 03/16/19 05:33 Temperature Temperature Source Sepsis Recent Fever Within 48 Hours Sepsis Action Taken by Nursing Oxygen Flow Rate - Titration 2 Pulse Oximetry Post Tiitration 93 Pulse Rate Pulse Rate [Finger] 99 H Respiratory Rate 22 Blood Pressure Blood Pressure [Right Arm] 159/94 H Blood Pressure Mean Blood Pressure Mean [Right Arm] 115 Pulse Oximetry 88 L 92 Oxygen Delivery Method Room Air Nasal Cannula Oxygen Flow Rate 3 GENERAL: morbidly obese, alert, well appearing, well nourished, no distress, non-toxic HEAD: normal cephalic, atraumatic, no tsang sign, no raccoon eyes EYE EXAM: normal conjunctiva, PERRL and EOM's grossly intact OROPHARYNX: no exudate, no erythema, lips, buccal mucosa, and tongue normal and mucous membranes are moist EARS: TMs clear b/l without hemotympanum, no edema along the canals NECK: supple, no nuchal rigidity, no adenopathy, non-tender CHEST: stable to compression anteriorly and posteriorly LUNGS: clear to auscultation. Normal chest wall mechanics, no w/r/r HEART: no murmurs, S1 normal and S2 normal ABDOMEN: abdomen soft, non-tender, normo-active bowel sounds, no masses, no rebound or guarding. PELVIS: stable to compression anteriorly and posteriorly BACK: Back is symmetrical on inspection and there is no deformity, no midline tenderness, no CVA tenderness. UPPER EXTREMITIES: full active and passive range of motion of all joints without tenderness to palpation, no evidence of trauma, normal pulses bilaterally. LOWER EXTREMITIES: full active and passive range of motion of all joints without tenderness to palpation. 2+ chronic appearing edema, with chronic erythematous changes, normal distal pulses. NEURO EXAM: Normal sensorium, cranial nerves II-XII grossly intact, normal speech, no gross weakness of arms, no gross weakness of legs. GCS: 15. Course 0243: The patient was evaluated in room B7. A complete history and physical exam was performed. 0335: I discussed with patient my additional concerns given the symptoms his stated he has been having recently. Patient seems to minimize any no complaints and asked to go home. After he and his engage in additional bedside discussion, he is in agreement with additional evaluation and possible admission if needed. 0531: The ED nurse states that the patient takes pain medications including tramadol. She states that the patient has not had anything to eat since 5pm. 0608: I reviewed the patient's [facility]. He will evaluate the patient for further management. Consultations Consultation #1: I [facility] the [facility] He will evaluate the patient for further management. Time: 06:08 Administered Medications Hydrocodone Bitart/Acetaminophen ([place] 5/325) 1 tab PO Q6H PRN PRN Reason: mild pain Stop: 03/30/19 08:47 Last Admin: 03/17/19 06:43 Dose: 1 tab Documented by: [id number] Admin: 03/17/19 00:36 Dose: 1 tab Documented by: [id number] Aspirin (Ecotrin Ectab) 81 mg PO DAILY MARIYA Stop: 04/15/19 08:59 Last Admin: 03/17/19 08:13 Dose: 81 mg Documented by: [id number] Admin: 03/16/19 10:39 Dose: 81 mg Documented by: [id number] Cephalexin HCl (Keflex) 500 mg PO TID MARIYA Stop: 03/26/19 08:59 Last Admin: 03/17/19 08:12 Dose: 500 mg Documented by: [id number] Admin: 03/16/19 22:21 Dose: 500 mg Documented by: [id number] Admin: 03/16/19 15:45 Dose: 500 mg Documented by: [id number] Admin: 03/16/19 10:40 Dose: 500 mg Documented by: [id number] Digoxin (Lanoxin) 0.125 mg PO DAILY MARIYA Stop: 04/16/19 08:59 Last Admin: 03/17/19 08:14 Dose: 0.125 mg Documented by: [id number] Docusate Sodium (Colace) 100 mg PO BID MARIYA Stop: 04/15/19 10:29 Last Admin: 03/17/19 08:12 Dose: 100 mg Documented by: [id number] Admin: 03/16/19 22:21 Dose: 100 mg Documented by: [id number] Admin: 03/16/19 11:27 Dose: Not Given Documented by: [id number] Enoxaparin Sodium (Lovenox) 40 mg SQ QAM MARIYA Stop: 04/15/19 08:59 Last Admin: 03/17/19 08:17 Dose: 40 mg Documented by: [id number] Admin: 03/16/19 10:41 Dose: 40 mg Documented by: [id number] Ferrous Sulfate (Feosol) 325 mg PO BIDM MARIYA Stop: 04/15/19 08:59 Last Admin: 03/17/19 08:13 Dose: 325 mg Documented by: [id number] Admin: 03/16/19 16:49 Dose: 325 mg Documented by: [id number] Admin: 03/16/19 10:39 Dose: 325 mg Documented by: [id number] Finasteride (Proscar) 5 mg PO DAILY MARIYA Stop: 04/15/19 08:59 Last Admin: 03/17/19 08:13 Dose: 5 mg Documented by: [id number] Admin: 03/16/19 10:40 Dose: 5 mg Documented by: [id number] Hydromorphone HCl (Dilaudid) 0.5 mg IV Q4H PRN PRN Reason: Pain Stop: 03/30/19 08:47 Last Admin: 03/17/19 03:39 Dose: 0.5 mg Documented by: [id number] Furosemide 40 mg/ Syringe 4 mls @ 4 mls/min IV BID17 MARIYA Stop: 03/17/19 17:00 Last Admin: 03/17/19 08:11 Dose: 4 mls/min Documented by: [id number] Admin: 03/16/19 16:49 Dose: 4 mls/min Documented by: [id number] Insulin Aspart (Novolog Flexpen) 0 units SC ACHS MARIYA Stop: 04/15/19 08:47 Last Admin: 03/17/19 08:15 Dose: 3 units Documented by: [id number] Cosigned by: [id number] Admin: 03/16/19 22:05 Dose: Not Given Documented by: [id number] Cosigned by: [id number] Admin: 03/16/19 16:48 Dose: Not Given Documented by: [id number] Admin: 03/16/19 12:23 Dose: 2 units Documented by: [id number] Cosigned by: [id number] Admin: 03/16/19 10:38 Dose: Not Given Documented by: [id number] Insulin Glargine (Lantus Solostar Pen) 5 units SQ BID MARIYA Stop: 04/15/19 20:59 Last Admin: 03/17/19 08:14 Dose: 5 units Documented by: [id number] Cosigned by: [id number] Admin: 03/16/19 22:22 Dose: 5 units Documented by: [id number] Cosigned by: [id number] Lactobacillus Acidophilus (Floranex) 4 tab PO DAILY MARIYA Stop: 04/15/19 08:59 Last Admin: 03/17/19 08:10 Dose: 4 tab Documented by: [id number] Admin: 03/16/19 10:39 Dose: 4 tab Documented by: [id number] Levetiracetam (Keppra) 500 mg PO BID MARIYA Stop: 04/15/19 08:59 Last Admin: 03/17/19 08:13 Dose: 500 mg Documented by: [id number] Admin: 03/16/19 22:21 Dose: 500 mg Documented by: [id number] Admin: 03/16/19 10:41 Dose: 500 mg Documented by: [id number] Losartan Potassium (Cozaar) 50 mg PO DAILY MARIYA Stop: 04/15/19 08:59 Last Admin: 03/17/19 08:11 Dose: 50 mg Documented by: [id number] Admin: 03/16/19 10:38 Dose: 50 mg Documented by: [id number] Metoprolol Succinate (Toprol Xl) 200 mg PO DAILY MARIYA Stop: 04/16/19 08:59 Last Admin: 03/17/19 08:11 Dose: 200 mg Documented by: [id number] Pantoprazole Sodium (Protonix) 40 mg PO BID MARIYA Stop: 04/15/19 08:59 Last Admin: 03/17/19 08:11 Dose: 40 mg Documented by: [id number] Admin: 03/16/19 22:23 Dose: 40 mg Documented by: [id number] Admin: 03/16/19 10:40 Dose: 40 mg Documented by: [id number] Potassium Chloride (Klor-Con M10) 10 meq PO BID MARIYA Stop: 04/15/19 08:59 Last Admin: 03/17/19 08:12 Dose: 10 meq Documented by: [id number] Admin: 03/16/19 22:22 Dose: 10 meq Documented by: [id number] Admin: 03/16/19 10:40 Dose: 10 meq Documented by: [id number] Discontinued Medications Hydrocodone Bitart/Acetaminophen ([place] 5/325) 1 tab PO NOW STA Stop: 03/16/19 05:31 Last Admin: 03/16/19 05:44 Dose: 1 tab Documented by: [id number] Furosemide (Lasix) 40 mg IV ONE ONE Stop: 03/16/19 07:01 Last Admin: 03/16/19 07:31 Dose: 40 mg Documented by: [id number] Vancomycin HCl 2,750 mg/ (Sodium Chloride) 555 mls @ 200 mls/hr IV NOW ONE Stop: 03/16/19 08:49 Last Infusion: 03/16/19 09:09 Dose: 0 mls/hr Documented by: [id number] Admin: 03/16/19 06:23 Dose: 200 mls/hr Documented by: [id number] Cefepime HCl (Maxipime) 2,000 mg in 20 mls @ 5 mls/min IV NOW STA; Protocol Stop: 03/16/19 06:06 Last Admin: 03/16/19 06:23 Dose: 5 mls/min Documented by: [id number] Insulin Glargine (Lantus Solostar Pen) 5 units SQ DAILY MARIYA Stop: 04/15/19 08:59 Last Admin: 03/16/19 10:42 Dose: 5 units Documented by: [id number] Cosigned by: [id number] Ipratropium Sharon (Atrovent 0.02% 0.5mg/2.5ml) 0.5 mg INH ONE ONE Stop: 03/16/19 07:16 Last Admin: 03/16/19 07:37 Dose: 0.5 mg Documented by: [id number] Levalbuterol HCl (Xopenex 1.25mg/0.5ml Neb) 1.25 mg INH ONE ONE Stop: 03/16/19 07:16 Last Admin: 03/16/19 07:37 Dose: 1.25 mg Documented by: [id number] Metoprolol Succinate (Toprol Xl) 200 mg PO ONE ONE Stop: 03/16/19 07:16 Last Admin: 03/16/19 07:31 Dose: 200 mg Documented by: [id number] Miscellaneous Information (Consult) 1 ea N/A UD ONE Stop: 03/16/19 06:04 Last Admin: 03/16/19 09:09 Dose: Not Given Documented by: [id number] Propofol (Diprivan) 20 mg IV NOW STA Stop: 03/16/19 05:37 Last Admin: 03/16/19 06:28 Dose: Not Given Documented by: [id number] Medical Decision Making Differential Diagnosis Differential diagnoses include major intracranial, cervical, spinal, thoracic, abdominal, pelvic and neurologic injury. Fracture, contusion, sprain, strain, laceration, abrasions included as well. Medical Records Attestation: I reviewed the patient's medical records. Home Medications Current Medication List: was personally reviewed by me Laboratory Data Attestation: I reviewed the patient's lab results. Result diagrams: 03/17/19 06:00 03/17/19 06:00 Lab Results 03/16/19 03/16/19 03/16/19 Range/Units 04:47 04:47 04:47 WBC 12.33 H (4.8-10.8) K/uL RBC 4.96 (4.7-6.1) M/uL Hgb 14.4 (14.0-18.0) g/dL Hct 44.5 (42-52) % MCV 89.7 (80-100) fL MCH 29.0 (25-34) pg MCHC 32.4 (32-36) g/dL RDW Std Deviation 57.7 H (36.4-46.3) fL RDW Coeff of Shadi 17.7 H (11.5-14.5) % Plt Count 239 (130-400) K/uL MPV 10.1 (7.4-10.4) fL Immature Gran % (Auto) 0.3 % Neut % (Auto) 87.9 % Lymph % (Auto) 5.3 % Summers % (Auto) 5.8 % Eos % (Auto) 0.5 % Baso % (Auto) 0.2 % Immature Gran # (Auto) 0.04 H (0.00-0.02) K/uL Neut # (Auto) 10.84 H (1.4-6.5) K/uL Lymph # (Auto) 0.65 L (1.2-3.4) K/uL Summers # (Auto) 0.71 H (0.11-0.59) K/uL Eos # (Auto) 0.06 (0-0.5) K/uL Baso # (Auto) 0.03 (0-0.2) K/uL Absolute Nucleated RBC 0.03 H (0-0) K/uL Nucleated RBC % (auto) 0.2 % Sodium 135 L (136-145) mmol/L Potassium 4.7 (3.5-5.1) mmol/L Chloride 102 (98-107) mmol/L Carbon Dioxide 25 (21-32) mmol/L Anion Gap 8.0 (3-11) BUN 23 H (7-18) mg/dl Creatinine 1.24 (0.6-1.4) mg/dl Est Cr Clr Drug Dosing 71.7 ml/min Est GFR ( Amer) 64.1 Est GFR (Non-Af Amer) 55.3 BUN/Creatinine Ratio 18.1 (10-20) Glucose 182 H (70-99) mg/dl POC Lactic Acid Indra (0.90-1.70) mmol/L Calcium 8.5 (8.5-10.1) mg/dl Total Bilirubin 0.8 (0.2-1) mg/dl AST 14 L (15-37) U/L ALT 13 (12-78) U/L Alkaline Phosphatase 64 (45-117) U/L Troponin I < 0.015 (0-0.045) ng/ml NT-Pro-B Natriuret Pep 4362 H (0-1800) pg/ml Total Protein 7.9 (6.4-8.2) gm/dl Albumin 3.0 L (3.4-5.0) gm/dl Globulin 4.9 H (2.5-4.0) gm/dl Albumin/Globulin Ratio 0.6 L (0.9-2) Procalcitonin 0.20 (0-0.5) ng/ml 03/16/19 Range/Units 04:51 WBC (4.8-10.8) K/uL RBC (4.7-6.1) M/uL Hgb (14.0-18.0) g/dL Hct (42-52) % MCV (80-100) fL MCH (25-34) pg MCHC (32-36) g/dL RDW Std Deviation (36.4-46.3) fL RDW Coeff of Shadi (11.5-14.5) % Plt Count (130-400) K/uL MPV (7.4-10.4) fL Immature Gran % (Auto) % Neut % (Auto) % Lymph % (Auto) % Summers % (Auto) % Eos % (Auto) % Baso % (Auto) % Immature Gran # (Auto) (0.00-0.02) K/uL Neut # (Auto) (1.4-6.5) K/uL Lymph # (Auto) (1.2-3.4) K/uL Summers # (Auto) (0.11-0.59) K/uL Eos # (Auto) (0-0.5) K/uL Baso # (Auto) (0-0.2) K/uL Absolute Nucleated RBC (0-0) K/uL Nucleated RBC % (auto) % Sodium (136-145) mmol/L Potassium (3.5-5.1) mmol/L Chloride (98-107) mmol/L Carbon Dioxide (21-32) mmol/L Anion Gap (3-11) BUN (7-18) mg/dl Creatinine (0.6-1.4) mg/dl Est Cr Clr Drug Dosing ml/min Est GFR ( Amer) Est GFR (Non-Af Amer) BUN/Creatinine Ratio (10-20) Glucose (70-99) mg/dl POC Lactic Acid Indra 1.87 H (0.90-1.70) mmol/L Calcium (8.5-10.1) mg/dl Total Bilirubin (0.2-1) mg/dl AST (15-37) U/L ALT (12-78) U/L Alkaline Phosphatase (45-117) U/L Troponin I (0-0.045) ng/ml NT-Pro-B Natriuret Pep (0-1800) pg/ml Total Protein (6.4-8.2) gm/dl Albumin (3.4-5.0) gm/dl Globulin (2.5-4.0) gm/dl Albumin/Globulin Ratio (0.9-2) Procalcitonin (0-0.5) ng/ml Imaging Data Attestation: I personally reviewed and interpreted this imaging study as follows: My Impression: XR chest: mild cardiomegaly, no effusion, no wide mediastinum, increased interstitial fluid on left lung field? evolving infiltrate, no acute pulmonary edema. ECG Data Attestation: I personally reviewed and interpreted this ECG as follows: Indication: SOB/dyspnea Rate (beats per minute): 103 Rhythm: atrial fibrillation Findings: + other (left axis, normal QRS, normal QTc); no acute ischemic change Blood Pressure Blood Pressure Findings: Elevated blood pressure Blood Pressure Disposition: further management by hospitalist OTIS De León Patient here originally denied any complaints and had what sounded to be a low risk fall from standing after missing his usual power chair. However upon his arriving in after concerns voiced by the insurance marketing rep originally, we pursued additional labs and imaging on the patient. Patient found to have likely pneumonia and given significant past medical history, and prior history of pneumonia, case discussed with hospitalist for additional evaluation management. Patient was noted to be hypoxic here and unable to be weaned off of oxygen despite his denial of feeling short of breath. The additional past medical history described by of his decreased exercise tolerance, increasing cough, decreased appetite, and worsening fatigue recently likely his manifestations of an evolving respiratory infection. Patient started on antibiotics. No evidence of bacteremia/sepsis. Patient otherwise hemodynamically stable. Additional c oncern due to patient's ongoing wound in the left foot as well as multiple recent hospitalizations. Impression & Plan PNA (pneumonia), Hypoxia, Wound of left foot Discharge Plan Visit Data *Final* Discharge Date/Time: 03/16/19 08:15 Chief Complaint: Fall Stated Complaint: fall ED Provider: Adrienne Valerio Discharge Problem: PNA (pneumonia), Hypoxia, Wound of left foot Patient Disposition: Admitted As Inpatient Discharge Instructions Interventions: ED Discharge Assessment Last Done: 03/16/19 08:15 Discharge Problem: PNA (pneumonia) Qualifiers: Pneumonia type: due to unspecified organism Laterality: right Lung location: lower lobe of lung Qualified Code(s): J18.1 - Lobar pneumonia, unspecified organism The scribe's documentation has been prepared under my direction and personally reviewed by me in its entirety. I confirm that the note above accurately reflects all work, treatment, procedures, and medical decision making performed by me.
--- NOTE | 2019-03-17 18:10 | Hospitalist Progress Note ---
Date of Service March 17, 2019 Assessment & Plan (1) Acute hypoxemic respiratory failure: Acute respiratory failure with hypoxia Acute on chronic diastolic heart failure CXR:Cardiomegaly with mild volume overload and congestive change. No arminda pulmonary edema. Last ECHO:Jun 2018: EF > 70% Continue IV diuretics 40 mg daily Monitor I's and O's, electrolytes, renal function, daily weight Fluid restriction Cardiology on board Continue supplemental oxygen as needed JUAN MANUEL--CPAP noncompliant; could have obesity hypoventilation syndrome contributing Hypertension Stable continue losartan, metoprolol Chronic atrial fibrillation Rate controlled Not on anticoagulation secondary to recurrent scrotal hemorrhage Continue Digoxin, Metoprolol Mechanical Fall PT/OT Volume overload Secondary to CHF ABD USD: No ascites Venous Doppler: No DVT Chronic scrotal wounds/LE venous stasis ulcers H/O scrotal hemangioma S/P resection, ? Embolization by IR Continue Keflex started by ID as outpatient continue wound care Has minimal scrotal wound bleeding Monitor CBC DM II Hold PO meds A1C: 7.9 Continue ISS, basal Insulin Monitor BGs H/O Traumatic intracranial hemorrhage H/O seizure disorder Continue Keppra H/O Chronic Indwelling Patiño Continue patiño catheter DVT Px: Lovenox SQ>>>SCD Re: scrotal wound bleeding Code Status Full code Disposition: PT/OT prior to discharge Subjective Patient is seen and examined at bedside Reports back discomfort this morning Denies any chest pain, shortness of breath, dizziness, nausea, abdominal pain No new complaints Review of Systems Review of Systems: All systems reviewed & are unremarkable except as noted in HPI & below Physical Exam Physical Exam: Physical Exam: Vitals signs as noted above General Appearance:Morbidly Obese, no apparent distress Head: normocephalic, Atraumatic Eyes: normal inspection, EOMI Neck: supple, Trachea midline Respiratory/Chest: Decreased breath sounds, CTA Cardiovascular: Irregularly irregular, + murmur Abdomen/GI:Soft, Non tender, Bowel sounds present : Chronic Scrotal swelling, wound Extremities/Musculoskelatal:normal inspection, Chronic B/L LE venous stasis changes, edema Neurologic/Psych:AAOX3, grossly no focal neurological deficits Skin: normal color, warm Results & Data Vital Signs (Past 12 Hours) Vital Signs Temp Pulse Pulse Resp BP Pulse Ox 03/17/19 15:19 36.6 C 68 22 113/67 97 03/17/19 11:51 36.5 C 74 18 129/63 93 03/17/19 09:00 72 03/17/19 08:17 150/82 H 03/17/19 08:14 84 03/17/19 07:02 36.5 C 77 17 95/54 L 96 Laboratory Results Short CBC 03/17/19 Range/Units 06:00 WBC 10.04 (4.8-10.8) K/uL Hgb 14.4 (14.0-18.0) g/dL Hct 45.7 (42-52) % Plt Count 223 (130-400) K/uL BMP 03/17/19 06:00 Sodium 137 Potassium 4.2 Chloride 102 Carbon Dioxide 29 BUN 22 H Creatinine 1.27 Glucose 127 H Calcium 8.5
[2019-03-17] MEDS: ZOLPIDEM TARTRATE 5 MG TAB PO PRN (23:17)
[2019-03-18] MEDS: HYDROmorphone INJ 0.5 MG/0.5 ML SYR IV PRN (00:47)
--- NOTE | 2019-03-18 05:23 | Hospitalist Progress Note ---
Date of Service March 18, 2019 Subjective Made aware by RN of copious bloody drainage from patient's scrotal/perineal area on standing up. Patient denies discomfort. AP Scrotal/perineal bleeding hx hemangioma as per records status post angiographic embolization H&H Appropriate to hold aspirin for now Pressure dressing Follow Wound care consult May need to confer with [place] [facility] [place]rologist if with continued bleeding and hemoglobin drop. Will relay to AM provider. Results & Data Vital Signs (Past 12 Hours) Vital Signs Temp Pulse Resp BP Pulse Ox 03/18/19 03:03 36.9 C 78 18 128/66 94 03/17/19 23:20 36.5 C 78 19 148/84 H 95 03/17/19 19:29 37.0 C 63 19 129/57 L 92
[2019-03-18 05:38] LABS: Basophils # (auto) 0.03 K/uL (0-0.2); Basophils % (auto) 0.3 %; Eosinophils # (auto) 0.76 K/uL (0-0.5); Eosinophils % (auto) 7.8 %; Hematocrit (blood only) 42.2 % (42-52); Hemoglobin 13.2 g/dL (14.0-18.0); Immature Granulocytes # (auto) 0.03 K/uL (0.00-0.02); Immature Granulocytes % (auto) 0.3 %; Lymphocytes # (auto) 0.99 K/uL (1.2-3.4); Lymphocytes % (auto) 10.1 %; Mean Corpuscular Hemoglobin 28.5 pg (25-34); Mean Corpuscular Hgb Conc 31.3 g/dL (32-36); Mean Corpuscular Volume 91.1 fL (80-100); Monocytes # (auto) 0.59 K/uL (0.11-0.59); Neutrophils # (auto) 7.39 K/uL (1.4-6.5); Neutrophils % (auto) 75.5 %; Platelet Count 225 K/uL (130-400); RDW Coefficient of Variation 17.6 % (11.5-14.5); RDW Standard Deviation 58.5 fL (36.4-46.3); Red Blood Count 4.63 M/uL (4.7-6.1); White Blood Count 9.79 K/uL (4.8-10.8)
[2019-03-18 05:55] LABS: BUN Creatinine Ratio 19.6 (10-20); Creatinine Clr Calc Pharmacy 66.3 ml/min; Est GFR (African American) 56.9; Est GFR (Non-African American) 49.1; Potassium 4.2 mmol/L (3.5-5.1)
[2019-03-18] MEDS: FUROSEMIDE 40 MG in SYRINGE 0 ML IV SCH (08:16)
[2019-03-18] MEDS: LACTOBACILLUS ACIDOPHILUS (FLORANEX) TAB PO SCH (08:16)
[2019-03-18] MEDS: LOSARTAN POTASSIUM 50 MG TAB PO SCH (08:16)
[2019-03-18] MEDS: METOPROLOL SUCC 50MG EXT REL TAB PO SCH (08:17)
[2019-03-18] MEDS: FINASTERIDE 5 MG TAB PO SCH (08:17)
[2019-03-18] MEDS: POTASSIUM CHLORIDE 10 MEQ TABCR PO SCH ×2 (08:17→20:31)
[2019-03-18] MEDS: DIGOXIN 0.125 MG TAB PO SCH (08:17)
[2019-03-18] MEDS: FERROUS SULFATE 325 MG TAB PO SCH ×2 (08:17→16:53)
[2019-03-18] MEDS: PANTOprazole 40 MG TAB PO SCH ×2 (08:17→20:32)
[2019-03-18] MEDS: cephALEXin 500 MG CAP PO SCH ×3 (08:17→20:31)
[2019-03-18] MEDS: levETIRAcetam 500 MG TAB PO SCH ×2 (08:17→20:31)
[2019-03-18] MEDS: INSULIN GLARGINE SOLOSTAR 100 UNITS/ML 3 ML PEN SQ SCH ×2 (08:18→20:32)
[2019-03-18] MEDS: INSULIN ASPART 100 UNITS/ML 3 ML PEN SC SCH ×4 (08:19→20:25)
[2019-03-18] MEDS: DOCUSATE SODIUM 100 MG CAP PO SCH ×2 (08:23→20:32)
--- NOTE | 2019-03-18 08:50 | Cardiology Progress Note ---
Date of Service March 18, 2019 Assessment & Plan (1) Venous stasis ulcers of both lower extremities: (2) Chronic venous insufficiency: (3) Scrotal disorder: (4) Chronic diastolic heart failure: (5) Chronic atrial fibrillation: Continue metoprolol and digoxin for rate control. Not on anticoagulation due to bleeding. Continue IV furosemide 40 mg, negative 2.2 L in last 24 hours. Case discussed with Dr Robles of interventional cardiology / endovascular medicine , outpt follow up to consider vein intervention recommended and he will help arrange. Received two doses of DVT prophylaxis dose lovenox this stay, now DC'd due to bleeding complications from scrotal varices. Subjective CC: follow up atrial fibrillation, venous stasis ulcers, chronic AF Subjective: Pt awake and oriented in chair. Baires catheter in place. Telemetry reveals rate controlled atrial fibrillation which is a chronic finding for him. Review of Systems Review of Systems: All systems reviewed & are unremarkable except as noted in HPI & below Physical Exam Physical Exam: Temp Pulse Resp BP Pulse Ox 36.4 C L 77 18 131/80 95 03/18/19 07:07 03/18/19 08:17 03/18/19 07:07 03/18/19 07:07 03/18/19 07:07 Constitutional: + ill appearing (chronically ill in appearance, no acute distress ) Respiratory: normal respiratory effort, lungs clear to auscultation Cardiovascular: Rate/Rhythm: + irregularly irregular Heart Sounds: no murmur Vessels: no JVD Extremities: + edema (1-2+ left > RLE edema, mild LLE erythema) Skin: scrotal varices Neurologic: patellar DTR's 2+ bilat, sensation intact Results & Data Vital Signs (Past 12 Hours) Vital Signs Temp Pulse Pulse Pulse Resp BP Pulse Ox 03/18/19 08:17 77 03/18/19 07:07 36.4 C L 79 18 131/80 95 03/18/19 03:03 36.9 C 78 18 128/66 94 03/17/19 23:20 36.5 C 78 19 148/84 H 95 Laboratory Results CBC 03/18/19 Range/Units 05:19 WBC 9.79 (4.8-10.8) K/uL RBC 4.63 L (4.7-6.1) M/uL Hgb 13.2 L (14.0-18.0) g/dL Hct 42.2 (42-52) % Plt Count 225 (130-400) K/uL Neut # (Auto) 7.39 H (1.4-6.5) K/uL Lymph # (Auto) 0.99 L (1.2-3.4) K/uL [place] # (Auto) 0.59 (0.11-0.59) K/uL Eos # (Auto) 0.76 H (0-0.5) K/uL Baso # (Auto) 0.03 (0-0.2) K/uL Comprehensive Metabolic Panel 03/18/19 Range/Units 05:19 Sodium 138 (136-145) mmol/L Potassium 4.2 (3.5-5.1) mmol/L Chloride 102 (98-107) mmol/L Carbon Dioxide 29 (21-32) mmol/L BUN 27 H (7-18) mg/dl Creatinine 1.37 (0.6-1.4) mg/dl Glucose 168 H (70-99) mg/dl Calcium 8.0 L (8.5-10.1) mg/dl Intake and Output 03/17/19 03/18/19 03/18/19 22:59 06:59 14:59 Intake Total 200 / 1280 460 / 1280 Output Total 1501 / 3551 850 / 3551 Balance -1301 / -2271 -390 / -2271 Intake: Oral 200 / 1280 460 / 1280 Output: Urine Amount (Catheter) 1500 / 3550 850 / 3550 Baires/Indwelling 1500 / 3550 850 / 3550 # Bowel Movements
[2019-03-18 10:25] LABS: Hematocrit (blood only) 42.9 % (42-52); Hemoglobin 13.7 g/dL (14.0-18.0)
[2019-03-18] MEDS: HYDROCODONE/ACETAMOPHEN 5/325MG TAB PO PRN ×2 (12:47→20:30)
[2019-03-18] MEDS: ACETAMINOPHEN 325 MG TAB PO PRN (16:57)
--- NOTE | 2019-03-18 17:27 | Hospitalist Progress Note ---
Date of Service March 18, 2019 Assessment & Plan (1) Acute hypoxemic respiratory failure: Acute respiratory failure with hypoxia Acute on chronic diastolic heart failure CXR:Cardiomegaly with mild volume overload and congestive change. No arminda pulmonary edema. Last ECHO:Jun 2018: EF > 70% Continue IV diuretics 40 mg daily Monitor I's and O's, electrolytes, renal function, daily weight Fluid restriction Appreciate Cardiology Input Continue supplemental oxygen as needed JUAN MANUEL--CPAP noncompliant; could have obesity hypoventilation syndrome contributing Hypertension Stable continue losartan, metoprolol Chronic atrial fibrillation Rate controlled Not on anticoagulation secondary to recurrent scrotal hemorrhage Continue Digoxin, Metoprolol Mechanical Fall PT/OT Volume overload Secondary to CHF ABD USD: No ascites Venous Doppler: No DVT Chronic scrotal wounds/LE venous stasis ulcers H/O scrotal hemangioma S/P resection, ? Embolization by IR Continue Keflex started by ID as outpatient continue wound care Has minimal scrotal wound bleeding Monitor CBC Needs pain intervention/follow up with Lovenox discontinued, aspirin held DM II Hold PO meds A1C: 7.9 Continue ISS, basal Insulin Monitor BGs H/O Traumatic intracranial hemorrhage H/O seizure disorder Continue Keppra H/O Chronic Indwelling Patiño Continue patiño catheter DVT Px: SCD Re: scrotal wound bleeding Code Status Full code Disposition: PT/OT prior to discharge Subjective Patient is seen and examined at bedside Had poor sleep overnight Had minimal scrotal bleeding No other complaints Denies any chest pain, shortness of breath, dizziness, nausea, abdominal pain Review of Systems Review of Systems: All systems reviewed & are unremarkable except as noted in HPI & below Physical Exam Physical Exam: Physical Exam: Vitals signs as noted above General Appearance:Morbidly Obese, no apparent distress Head: normocephalic, Atraumatic Eyes: normal inspection, EOMI Neck: supple, Trachea midline Respiratory/Chest: Decreased breath sounds, CTA Cardiovascular: Irregularly irregular, + murmur Abdomen/GI:Soft, Non tender, Bowel sounds present : Chronic Scrotal swelling, wound Extremities/Musculoskelatal:normal inspection, Chronic B/L LE venous stasis changes, edema Neurologic/Psych:AAOX3, grossly no focal neurological deficits Skin: normal color, warm Results & Data Vital Signs (Past 12 Hours) Vital Signs Temp Pulse Pulse Pulse Resp BP Pulse Ox 03/18/19 16:32 69 03/18/19 15:45 36.5 C 86 20 124/65 96 03/18/19 11:21 36.8 C 71 18 97/54 L 96 03/18/19 10:16 65 03/18/19 08:17 77 03/18/19 07:07 36.4 C L 79 18 131/80 95 Laboratory Results Short CBC 03/18/19 03/18/19 Range/Units 05:19 10:07 WBC 9.79 (4.8-10.8) K/uL Hgb 13.2 L 13.7 L (14.0-18.0) g/dL Hct 42.2 42.9 (42-52) % Plt Count 225 (130-400) K/uL BMP 03/18/19 05:19 Sodium 138 Potassium 4.2 Chloride 102 Carbon Dioxide 29 BUN 27 H Creatinine 1.37 Glucose 168 H Calcium 8.0 L
[2019-03-18] MEDS: ZOLPIDEM TARTRATE 5 MG TAB PO PRN (23:36)
[2019-03-19] MEDS: HYDROCODONE/ACETAMOPHEN 5/325MG TAB PO PRN ×3 (04:09→20:54)
[2019-03-19 06:20] LABS: Hematocrit (blood only) 41.5 % (42-52); Hemoglobin 13.3 g/dL (14.0-18.0)
[2019-03-19 06:45] LABS: BUN Creatinine Ratio 23.4 (10-20); Calcium 8.4 mg/dl (8.5-10.1); Creatinine Clr Calc Pharmacy 78.3 ml/min; Est GFR (African American) 69.5; Potassium 4.1 mmol/L (3.5-5.1)
[2019-03-19] MEDS: INSULIN ASPART 100 UNITS/ML 3 ML PEN SC SCH ×4 (08:42→21:29)
[2019-03-19] MEDS: cephALEXin 500 MG CAP PO SCH ×3 (08:43→20:53)
[2019-03-19] MEDS: INSULIN GLARGINE SOLOSTAR 100 UNITS/ML 3 ML PEN SQ SCH ×2 (08:43→20:54)
[2019-03-19] MEDS: FUROSEMIDE 40 MG in SYRINGE 0 ML IV SCH (08:43)
[2019-03-19] MEDS: DIGOXIN 0.125 MG TAB PO SCH (08:44)
[2019-03-19] MEDS: METOPROLOL SUCC 50MG EXT REL TAB PO SCH (08:44)
[2019-03-19] MEDS: DOCUSATE SODIUM 100 MG CAP PO SCH ×2 (08:44→20:53)
[2019-03-19] MEDS: PANTOprazole 40 MG TAB PO SCH ×2 (08:44→20:53)
[2019-03-19] MEDS: LACTOBACILLUS ACIDOPHILUS (FLORANEX) TAB PO SCH (08:44)
[2019-03-19] MEDS: FINASTERIDE 5 MG TAB PO SCH (08:45)
[2019-03-19] MEDS: FERROUS SULFATE 325 MG TAB PO SCH ×2 (08:45→17:01)
[2019-03-19] MEDS: POTASSIUM CHLORIDE 10 MEQ TABCR PO SCH ×2 (08:45→20:53)
[2019-03-19] MEDS: LOSARTAN POTASSIUM 50 MG TAB PO SCH (08:45)
[2019-03-19] MEDS: levETIRAcetam 500 MG TAB PO SCH ×2 (08:45→20:53)
[2019-03-19] MEDS: ACETAMINOPHEN 325 MG TAB PO PRN (08:47)
--- NOTE | 2019-03-19 09:42 | Cardiology Progress Note ---
Date of Service March 19, 2019 Assessment & Plan (1) Chronic diastolic heart failure: Continue IV furosemide 40 mg daily. He was previously on oral furosemide 20 mg daily. At discharge, would consider transitioning to torsemide 20 mg by mouth daily with potassium chloride supplementation, perhaps 20 mEq daily. (2) Chronic atrial fibrillation: Telemetry reveals rate controlled atrial fibrillation in the range of 68 to 71 bpm. Continue digoxin and metoprolol for rate control. Not a candidate for anticoagulation due to recurrent bleeding and sacral ulcers. (3) Morbid obesity: Obesity hypoventilation syndrome likely playing a role in his chronic degree of shortness of breath. (4) Scrotal varicose veins: DVT prophylaxis, anticoagulation, and aspirin are all on hold. Patient tells me he has had scrotal bleeding for 4 years. Follow-up with Dr. Robles of endovascular medicine/interventional cardiology regarding potential venous intervention. Subjective Chief complaint: Follow-up edema, atrial fibrillation Subjective: Patient seen and examined. He is sitting in the bedside chair. Baires catheter remains in place. His fluid balance remains negative with -2.2 L as of this morning for 24 hours. He is eager for discharge. Review of Systems Review of Systems: All systems reviewed & are unremarkable except as noted in HPI & below Physical Exam Physical Exam: Temp Pulse Resp BP Pulse Ox 36.9 C 81 19 116/64 93 03/19/19 07:04 03/19/19 08:44 03/19/19 07:04 03/19/19 07:04 03/19/19 07:04 Constitutional: WD/WN, vitals as above Respiratory: normal respiratory effort, lungs clear to auscultation Cardiovascular: Rate/Rhythm: + irregularly irregular Heart Sounds: no murmur Vessels: no JVD Extremities: + edema (1+ lower extremity edema, left leg slightly worse than right leg) Neurologic: PERRL, EOMI, accommodation nl, no face palsy, no dysarthria Results & Data Vital Signs (Past 12 Hours) Vital Signs Temp Pulse Pulse Pulse Resp BP Pulse Ox 03/19/19 08:44 81 03/19/19 07:04 36.9 C 72 19 116/64 93 03/19/19 02:54 36.5 C 71 18 139/68 95 03/19/19 00:00 77 03/18/19 23:22 36.6 C 79 20 154/89 H 97 Laboratory Results Hemoglobin 13.3 Sodium 140 Potassium 4.1 Chloride 104 CO2 28 BUN 27 Creatinine 1.16 Glucose 142 Medications Administered Current Inpatient Medications Acetaminophen (Tylenol) 650 mg PO Q4H PRN PRN Reason: Pain or Fever Stop: 04/15/19 08:47 Last Admin: 03/19/19 08:47 Dose: 650 mg Documented by: Hydrocodone Bitart/Acetaminophen ([place] 5/325) 1 tab PO Q6H PRN PRN Reason: mild pain Stop: 03/30/19 08:47 Last Admin: 03/19/19 04:09 Dose: 1 tab Documented by: Aspirin (Ecotrin Ectab) 81 mg PO DAILY [facility] Stop: 04/15/19 08:59 Last Admin: 03/17/19 08:13 Dose: 81 mg Documented by: Cephalexin HCl (Keflex) 500 mg PO TID [facility] Stop: 03/26/19 08:59 Last Admin: 03/19/19 08:43 Dose: 500 mg Documented by: Dextrose (Dextrose 50%) 25 - 50 ml IV UD PRN; Protocol PRN Reason: Hypoglycemia Protocol Stop: 04/15/19 08:47 Digoxin (Lanoxin) 0.125 mg PO DAILY [facility] Stop: 04/16/19 08:59 Last Admin: 03/19/19 08:44 Dose: 0.125 mg Documented by: Docusate Sodium (Colace) 100 mg PO BID [facility] Stop: 04/15/19 10:29 Last Admin: 03/19/19 08:44 Dose: 100 mg Documented by: Ferrous Sulfate (Feosol) 325 mg PO BIDM [facility] Stop: 04/15/19 08:59 Last Admin: 03/19/19 08:45 Dose: 325 mg Documented by: Finasteride (Proscar) 5 mg PO DAILY [facility] Stop: 04/15/19 08:59 Last Admin: 03/19/19 08:45 Dose: 5 mg Documented by: Glucagon (Glucagen) 1 mg SQ UD PRN; Protocol PRN Reason: Hypoglycemia Protocol Stop: 04/15/19 08:47 Glucose (Glucose 40%) 15 - 30 gm PO UD PRN; Protocol PRN Reason: Hypoglycemia Protocol Stop: 04/15/19 08:47 Glucose (Dex4 Glucose) 4 - 8 tabs PO UD PRN; Protocol PRN Reason: Hypoglycemia Protocol Stop: 04/15/19 08:47 Hydromorphone HCl (Dilaudid) 0.5 mg IV Q4H PRN PRN Reason: Pain Stop: 03/30/19 08:47 Last Admin: 03/18/19 00:47 Dose: 0.5 mg Documented by: Promethazine HCl 12.5 mg/ (Sodium Chloride) 50.5 mls @ 202 mls/hr IV Q6H PRN PRN Reason: Nausea And Vomiting Stop: 04/15/19 08:47 Furosemide 40 mg/ Syringe 4 mls @ 4 mls/min IV DAILY [facility] Stop: 04/17/19 08:59 Last Admin: 03/19/19 08:43 Dose: 4 mls/min Documented by: Insulin Aspart (Novolog Flexpen) 0 units SC ACHS [facility] Stop: 04/15/19 08:47 Last Admin: 03/19/19 08:42 Dose: 3 units Documented by: Insulin Glargine (Lantus Solostar Pen) 5 units SQ BID [facility] Stop: 04/15/19 20:59 Last Admin: 03/19/19 08:43 Dose: 5 units Documented by: Ipratropium [place] (Atrovent 0.02% 0.5mg/2.5ml) 0.5 mg INH Q4H PRN PRN Reason: Shortness Of Breath Or Wheezing Stop: 04/15/19 08:47 Lactobacillus Acidophilus (Floranex) 4 tab PO DAILY [facility] Stop: 04/15/19 08:59 Last Admin: 03/19/19 08:44 Dose: 4 tab Documented by: Levalbuterol HCl (Xopenex 1.25mg/0.5ml Neb) 1.25 mg INH Q4H PRN PRN Reason: Shortness Of Breath Or Wheezing Stop: 04/15/19 08:47 Levetiracetam (Keppra) 500 mg PO BID [facility] Stop: 04/15/19 08:59 Last Admin: 03/19/19 08:45 Dose: 500 mg Documented by: Losartan Potassium (Cozaar) 50 mg PO DAILY [facility] Stop: 04/15/19 08:59 Last Admin: 03/19/19 08:45 Dose: 50 mg Documented by: Metoprolol Succinate (Toprol Xl) 200 mg PO DAILY [facility] Stop: 04/16/19 08:59 Last Admin: 03/19/19 08:44 Dose: 200 mg Documented by: Miscellaneous (Carbohydrates For Hypoglycemia) 15 - 30 gm PO UD PRN PRN Reason: Hypoglycemia Treatment Stop: 04/15/19 08:47 Multi-Ingredient Cream (Hydrocerin) 1 appln EXT BID PRN PRN Reason: Affected Skin Folds Stop: 04/15/19 10:55 Pantoprazole Sodium (Protonix) 40 mg PO BID [facility] Stop: 04/15/19 08:59 Last Admin: 03/19/19 08:44 Dose: 40 mg Documented by: Polyethylene Glycol (Miralax Powder Packet) 17 gm PO DAILY PRN PRN Reason: Constipation Stop: 04/15/19 10:22 Potassium Chloride (Klor-Con M10) 10 meq PO BID [facility] Stop: 04/15/19 08:59 Last Admin: 03/19/19 08:45 Dose: 10 meq Documented by: Zolpidem Tartrate (Ambien) 5 mg PO HS PRN PRN Reason: Sleep Stop: 04/16/19 18:31 Last Admin: 03/18/19 23:36 Dose: 5 mg Documented by:
--- NOTE | 2019-03-19 16:58 | Hospitalist Progress Note ---
Date of Service March 19, 2019 Assessment & Plan (1) Acute hypoxemic respiratory failure: Acute respiratory failure with hypoxia Acute on chronic diastolic heart failure CXR:Cardiomegaly with mild volume overload and congestive change. No arminda pulmonary edema. Last ECHO:Jun 2018: EF > 70% Continue IV diuretics 40 mg daily Monitor I's and O's, electrolytes, renal function, daily weight Fluid restriction Appreciate Cardiology Input Continue supplemental oxygen as needed JUAN MANUEL--CPAP noncompliant; could have obesity hypoventilation syndrome contributing Wean off oxygen as able May need 2 step prior to discharge Hypertension Stable continue losartan, metoprolol Chronic atrial fibrillation Rate controlled Not on anticoagulation secondary to recurrent scrotal hemorrhage Continue Digoxin, Metoprolol Mechanical Fall PT/OT Volume overload Secondary to CHF ABD USD: No ascites Venous Doppler: No DVT Chronic scrotal wounds/LE venous stasis ulcers H/O scrotal hemangioma S/P resection, ? Embolization by IR Continue Keflex started by ID as outpatient continue wound care Has minimal scrotal wound bleeding--- has been chronic intermittently since 4 years as per patient's Monitor CBC Needs vein intervention/follow up with Lovenox discontinued, aspirin held DM II Hold PO meds A1C: 7.9 Continue ISS, basal Insulin Monitor BGs H/O Traumatic intracranial hemorrhage H/O seizure disorder Continue Keppra H/O Chronic Indwelling Patiño Continue patiño catheter DVT Px: SCD Re: scrotal wound bleeding Code Status Full code Disposition: Patient currently not interested in rehab placement Patient's family unable to take care of the patient at home currently PT/OT--need rehab placement if patient agrees Subjective Patient is seen and examined at bedside States scrotal bleeding is decreasing Hemoglobin stable No new complaints Try to wean off off oxygen today, but sats dropped to low 80s Discussed with patient's family today Denies any chest pain, SOB, dizziness, nausea, abdominal pain, scrotal pain Review of Systems Review of Systems: All systems reviewed & are unremarkable except as noted in HPI & below Physical Exam Physical Exam: Physical Exam: Vitals signs as noted above General Appearance:Morbidly Obese, no apparent distress Head: normocephalic, Atraumatic Eyes: normal inspection, EOMI Neck: supple, Trachea midline Respiratory/Chest: Decreased breath sounds, CTA Cardiovascular: Irregularly irregular, + murmur Abdomen/GI:Soft, Non tender, Bowel sounds present : Chronic Scrotal swelling, wound Extremities/Musculoskelatal:normal inspection, Chronic B/L LE venous stasis changes, edema Neurologic/Psych:AAOX3, grossly no focal neurological deficits Skin: normal color, warm Results & Data Vital Signs (Past 12 Hours) Vital Signs Temp Pulse Pulse Pulse Resp BP Pulse Ox 03/19/19 16:00 72 03/19/19 15:24 36.5 C 62 22 120/67 99 03/19/19 12:31 36.4 C L 64 16 137/67 97 03/19/19 08:44 81 03/19/19 08:00 81 03/19/19 07:04 36.9 C 72 19 116/64 93 Laboratory Results Short CBC 03/19/19 Range/Units 05:23 Hgb 13.3 L (14.0-18.0) g/dL Hct 41.5 L (42-52) % BMP 03/19/19 05:23 Sodium 140 Potassium 4.1 Chloride 104 Carbon Dioxide 28 BUN 27 H Creatinine 1.16 Glucose 142 H Calcium 8.4 L
[2019-03-19] MEDS: ZOLPIDEM TARTRATE 5 MG TAB PO PRN ×2 (20:54→23:58)
[2019-03-20 05:38] LABS: Hematocrit (blood only) 43.8 % (42-52); Hemoglobin 13.4 g/dL (14.0-18.0); Mean Corpuscular Hemoglobin 27.8 pg (25-34); Mean Corpuscular Hgb Conc 30.6 g/dL (32-36); Mean Corpuscular Volume 90.9 fL (80-100); Mean Platelet Volume 9.8 fL (7.4-10.4); Platelet Count 240 K/uL (130-400); RDW Coefficient of Variation 17.3 % (11.5-14.5); RDW Standard Deviation 57.2 fL (36.4-46.3); Red Blood Count 4.82 M/uL (4.7-6.1); White Blood Count 7.45 K/uL (4.8-10.8)
[2019-03-20 06:06] LABS: BUN Creatinine Ratio 26.2 (10-20); Calcium 8.3 mg/dl (8.5-10.1); Creatinine Clr Calc Pharmacy 83.3 ml/min; Est GFR (Non-African American) 64.7; Potassium 4.4 mmol/L (3.5-5.1)
[2019-03-20] MEDS: METOPROLOL SUCC 50MG EXT REL TAB PO SCH (08:37)
[2019-03-20] MEDS: PANTOprazole 40 MG TAB PO SCH ×2 (08:37→20:48)
[2019-03-20] MEDS: LOSARTAN POTASSIUM 50 MG TAB PO SCH (08:37)
[2019-03-20] MEDS: DOCUSATE SODIUM 100 MG CAP PO SCH ×2 (08:37→20:47)
[2019-03-20] MEDS: cephALEXin 500 MG CAP PO SCH ×3 (08:38→20:49)
[2019-03-20] MEDS: levETIRAcetam 500 MG TAB PO SCH ×2 (08:38→20:49)
[2019-03-20] MEDS: POTASSIUM CHLORIDE 10 MEQ TABCR PO SCH ×2 (08:38→20:48)
[2019-03-20] MEDS: FERROUS SULFATE 325 MG TAB PO SCH ×2 (08:39→17:27)
[2019-03-20] MEDS: DIGOXIN 0.125 MG TAB PO SCH (08:39)
[2019-03-20] MEDS: LACTOBACILLUS ACIDOPHILUS (FLORANEX) TAB PO SCH (08:39)
[2019-03-20] MEDS: INSULIN ASPART 100 UNITS/ML 3 ML PEN SC SCH ×4 (08:40→20:49)
[2019-03-20] MEDS: INSULIN GLARGINE SOLOSTAR 100 UNITS/ML 3 ML PEN SQ SCH ×2 (08:40→20:50)
[2019-03-20] MEDS: FINASTERIDE 5 MG TAB PO SCH (08:41)
[2019-03-20] MEDS: FUROSEMIDE 40 MG in SYRINGE 0 ML IV SCH (08:41)
[2019-03-20] MEDS: HYDROCODONE/ACETAMOPHEN 5/325MG TAB PO PRN ×3 (08:50→20:47)
--- NOTE | 2019-03-20 10:27 | Cardiology Progress Note ---
Date of Service March 20, 2019 Assessment & Plan (1) Chronic diastolic heart failure: Transition to oral torsemide 20 mg daily to replace his furosemide 20 mg daily. (2) Chronic atrial fibrillation: Telemetry reveals rate controlled atrial fibrillation in the range of 68 to 71 bpm. Continue digoxin and metoprolol for rate control. Not a candidate for anticoagulation due to recurrent bleeding and sacral ulcers. Patient's aspirin is currently on hold due to his bleeding ulcerations of the scrotum. Most recent guidelines suggest that aspirin has minimal efficacy in terms of stroke prophylaxis and atrial fibrillation, however ideally would like to resume this when possible. (3) Morbid obesity: Obesity hypoventilation syndrome likely playing a role in his chronic degree of shortness of breath. (4) Scrotal varicose veins: DVT prophylaxis, anticoagulation, and aspirin are all on hold. Patient tells me he has had scrotal bleeding for 4 years. Follow-up with Dr. Robles of endovascular medicine/interventional cardiology regarding potential venous intervention. I touched base with Dr Robles, no venous procedure planned at inpatient this admission. Stable from my standpoint for discharge. Subjective Chief complaint: Follow-up lower extremity edema Subjective: Patient denies shortness of breath and is comfortable in the chair. Fluid balance was -1.8 L last 24 hours with 3.2 L of urine output have not been measured. Telemetry reveals rate controlled atrial fibrillation in the mid 70 be per minute range. Review of Systems Review of Systems: All systems reviewed & are unremarkable except as noted in HPI & below Physical Exam Physical Exam: Temp Pulse Resp BP Pulse Ox 36.4 C L 77 20 148/72 H 93 03/20/19 07:16 03/20/19 08:39 03/20/19 07:16 03/20/19 07:16 03/20/19 07:16 Respiratory: normal respiratory effort, lungs clear to auscultation Cardiovascular: Rate/Rhythm: + irregularly irregular Heart Sounds: no murmur Vessels: no JVD Extremities: + edema (1+ lower extremity) Neurologic: PERRL, EOMI, accommodation nl, no face palsy, no dysarthria Results & Data Vital Signs (Past 12 Hours) Vital Signs Temp Pulse Pulse Pulse Resp BP Pulse Ox 03/20/19 08:39 77 03/20/19 07:16 36.4 C L 77 20 148/72 H 93 03/20/19 03:40 36.4 C L 73 20 166/81 H 93 03/19/19 23:24 36.5 C 76 19 136/64 93
--- NOTE | 2019-03-20 14:22 | Hospitalist Progress Note ---
Date of Service March 20, 2019 Assessment & Plan (1) Acute hypoxemic respiratory failure: Indurated volume overload/acute on chronic diastolic heart failure CXR:Cardiomegaly with mild volume overload and congestive change. No arminda pulmonary edema. Last ECHO:Jun 2018: EF > 70% Adequate diuresis with IV Lasix: Fluid balance -1.8 L past 24 hours Appreciate Cardiology Input Transitioned to oral torsemide 20 mg daily Continue to monitor volume status, intact output, daily weight Hypertension Stable continue losartan, metoprolol Chronic atrial fibrillation Rate controlled Not on anticoagulation secondary to recurrent scrotal hemorrhage Continue Digoxin, Metoprolol Mechanical Fall PT/OT Volume overload Secondary to CHF ABD USD: No ascites Venous Doppler: No DVT Chronic scrotal wounds/LE venous stasis ulcers H/O scrotal hemangioma S/P resection, ? Embolization by IR Continue Keflex started by ID as outpatient continue wound care Has minimal scrotal wound bleeding--- has been chronic intermittently since 4 years as per patient's Monitor CBC Needs vein intervention/follow up with Lovenox discontinued, aspirin held DM II Hold PO meds A1C: 7.9 Continue ISS, basal Insulin Monitor BGs H/O Traumatic intracranial hemorrhage H/O seizure disorder Continue Keppra H/O Chronic Indwelling Patiño Continue patiño catheter DVT Px: SCD Re: scrotal wound bleeding Code Status Full code Disposition: Patient currently not interested in rehab placement Patient's family unable to take care of the patient at home currently PT/OT--need rehab placement if patient agrees (2) Acute diastolic (congestive) heart failure: Presents with volume overload, hypoxia, decompensated CHF with chronic diastolic dysfunction, Management as outlined above (3) Diabetes mellitus type 2 with complications: Hemoglobin A1c 7.9 P.o. meds been kept on hold since admission Utilized insulin sliding scale, basal Lantus BSG AC and at bedtime Home antidiabetic meds will be resumed on discharge (4) Atrial fibrillation, rapid: At present rate controlled, Not on anticoagulation secondary to recurrent rectal bleeding/hemorrhage Patient is continue with digoxin, metoprolol Cardiology following (5) Hypertension: Stable continue losartan, metoprolol (6) Ulcer of scrotum: Chronic scrotal wounds/LE venous stasis ulcers H/O scrotal hemangioma S/P resection, ? Embolization by IR Continue Keflex started by ID as outpatient continue wound care Has minimal scrotal wound bleeding--- has been chronic intermittently since 4 years as per patient's Monitor CBC Needs vein intervention/follow up with Lovenox discontinued, aspirin held (7) Scrotal varicose veins: Follow-up with Dr. Robles of endovascular medicine/interventional cardiology regarding potential venous intervention. Cardiology touched base with Dr Robles, no venous procedure planned at inpatient this admission. (8) ICH (intracerebral hemorrhage): History of traumatic intracranial hemorrhage History of seizure disorder Keppra continue (9) Chronic indwelling Patiño catheter: (10) Obstructive sleep apnea: JUAN MANUEL--CPAP noncompliant; could have obesity hypoventilation syndrome contributing decompensation of diastolic CHF Morbid obesity Patient is counseled to utilize CPAP at night, Consult for dietary change exercise, weight reduction Subjective Patient reports of feeling better, no orthopnea, no dyspnea on exertion No cough, no fever or chills Able to be out of bed to chair, Has been diuresing well with IV Lasix Physical Exam Constitutional: WD/WN, vitals as above no acute distress Eyes: PERRL, conjunctivae normal, anicteric sclerae ENMT: external ear and nose normal, oropharynx normal Neck: trachea midline, no thyromegaly Respiratory: normal respiratory effort, lungs clear to auscultation Cardiovascular: Rate/Rhythm: regular rate and regular rhythm Gastrointestinal (Abdomen): normal bowel sounds, soft, nontender, no hepatosplenomegaly Musculoskeletal: no cyanosis or clubbing, extremities motor strength 5/5 Skin: no rashes, warm and dry Neurologic: PERRL, EOMI, accommodation nl, no face palsy, no dysarthria Psychiatric: A+Ox3, euthymic affect Results & Data Vital Signs (Past 12 Hours) Vital Signs Temp Pulse Pulse Pulse Resp BP Pulse Ox 03/20/19 10:43 36.4 C L 69 19 130/67 94 03/20/19 08:39 77 03/20/19 07:16 36.4 C L 77 20 148/72 H 93 03/20/19 03:40 36.4 C L 73 20 166/81 H 93 (1) Hypertension Hypertension type: unspecified Qualified Code(s): I10 - Essential (primary) hypertension
[2019-03-20] MEDS: ZOLPIDEM TARTRATE 5 MG TAB PO PRN (22:26)
[2019-03-21] MEDS: cephALEXin 500 MG CAP PO SCH ×3 (08:23→21:19)
[2019-03-21] MEDS: METOPROLOL SUCC 50MG EXT REL TAB PO SCH (08:23)
[2019-03-21] MEDS: TORSEMIDE 10 MG TAB PO SCH (08:24)
[2019-03-21] MEDS: FINASTERIDE 5 MG TAB PO SCH (08:24)
[2019-03-21] MEDS: LACTOBACILLUS ACIDOPHILUS (FLORANEX) TAB PO SCH (08:24)
[2019-03-21] MEDS: FERROUS SULFATE 325 MG TAB PO SCH ×2 (08:25→17:10)
[2019-03-21] MEDS: LOSARTAN POTASSIUM 50 MG TAB PO SCH (08:25)
[2019-03-21] MEDS: PANTOprazole 40 MG TAB PO SCH ×2 (08:25→21:19)
[2019-03-21] MEDS: POTASSIUM CHLORIDE 10 MEQ TABCR PO SCH ×2 (08:25→21:19)
[2019-03-21] MEDS: DOCUSATE SODIUM 100 MG CAP PO SCH ×2 (08:25→21:23)
[2019-03-21] MEDS: levETIRAcetam 500 MG TAB PO SCH ×2 (08:26→21:19)
[2019-03-21] MEDS: DIGOXIN 0.125 MG TAB PO SCH (08:26)
[2019-03-21] MEDS: INSULIN GLARGINE SOLOSTAR 100 UNITS/ML 3 ML PEN SQ SCH ×2 (08:28→21:19)
[2019-03-21] MEDS: INSULIN ASPART 100 UNITS/ML 3 ML PEN SC SCH ×4 (08:31→21:20)
[2019-03-21] MEDS: ASPIRIN 81 MG ECTAB PO SCH (09:41)
[2019-03-21] MEDS: HYDROCODONE/ACETAMOPHEN 5/325MG TAB PO PRN ×2 (16:13→22:21)
--- NOTE | 2019-03-21 18:08 | Hospitalist Progress Note ---
Date of Service March 21, 2019 Assessment & Plan (1) Acute hypoxemic respiratory failure: Indurated volume overload/acute on chronic diastolic heart failure CXR:Cardiomegaly with mild volume overload and congestive change. No arminda pulmonary edema. Last ECHO:Jun 2018: EF > 70% Adequate diuresis with IV Lasix: Fluid balance -1.8 L past 24 hours Appreciate Cardiology Input Transitioned to oral torsemide 20 mg daily Continue to monitor volume status, intact output, daily weight Hypertension Stable continue losartan, metoprolol Chronic atrial fibrillation Rate controlled Not on anticoagulation secondary to recurrent scrotal hemorrhage Continue Digoxin, Metoprolol Mechanical Fall PT/OT Volume overload Secondary to CHF ABD USD: No ascites Venous Doppler: No DVT Chronic scrotal wounds/LE venous stasis ulcers H/O scrotal hemangioma S/P resection, ? Embolization by IR Continue Keflex started by ID as outpatient continue wound care Has minimal scrotal wound bleeding--- has been chronic intermittently since 4 years as per patient's Monitor CBC Needs vein intervention/follow up with Lovenox discontinued, aspirin held DM II Hold PO meds A1C: 7.9 Continue ISS, basal Insulin Monitor BGs H/O Traumatic intracranial hemorrhage H/O seizure disorder Continue Keppra H/O Chronic Indwelling Patiño Continue patiño catheter DVT Px: SCD Re: scrotal wound bleeding Code Status Full code Disposition: Patient currently not interested in rehab placement Patient's family unable to take care of the patient at home currently PT/OT--need rehab placement if patient agrees (2) Acute diastolic (congestive) heart failure: Presents with volume overload, hypoxia, decompensated CHF with chronic diastolic dysfunction, Management as outlined above (3) Diabetes mellitus type 2 with complications: Hemoglobin A1c 7.9 P.o. meds been kept on hold since admission Utilized insulin sliding scale, basal Lantus BSG AC and at bedtime Home antidiabetic meds will be resumed on discharge (4) Atrial fibrillation, rapid: At present rate controlled, Not on anticoagulation secondary to recurrent rectal bleeding/hemorrhage Patient is continue with digoxin, metoprolol Cardiology following (5) Hypertension: Stable continue losartan, metoprolol (6) Ulcer of scrotum: Chronic scrotal wounds/LE venous stasis ulcers H/O scrotal hemangioma S/P resection, ? Embolization by IR Continue Keflex started by ID as outpatient continue wound care Has minimal scrotal wound bleeding--- has been chronic intermittently since 4 years as per patient's Monitor CBC Needs vein intervention/follow up with Lovenox discontinued, aspirin held (7) Scrotal varicose veins: Follow-up with Dr. Robles of endovascular medicine/interventional cardiology regarding potential venous intervention. Cardiology touched base with Dr Robles, no venous procedure planned at inpatient this admission. (8) ICH (intracerebral hemorrhage): History of traumatic intracranial hemorrhage History of seizure disorder Keppra continue (9) Chronic indwelling Patiño catheter: (10) Obstructive sleep apnea: JUAN MANUEL--CPAP noncompliant; could have obesity hypoventilation syndrome contributing decompensation of diastolic CHF Morbid obesity Patient is counseled to utilize CPAP at night, Consult for dietary change exercise, weight reduction Disposition: Benefit with rehab, referral made Medically stable to transfer to rehab when bed available Subjective Patient reports of feeling fine, no cough, no shortness of breath, No fever or chills two-step exercise shows patient will need to monitor oxygen on ambulation only Prescription for home oxygen given to case management As per PT OT evaluation, patient will benefit to rehab prior to returning home Physical Exam Constitutional: WD/WN, vitals as above no acute distress Eyes: PERRL, conjunctivae normal, anicteric sclerae ENMT: external ear and nose normal, oropharynx normal Neck: trachea midline, no thyromegaly Respiratory: normal respiratory effort, lungs clear to auscultation Cardiovascular: Rate/Rhythm: regular rate and regular rhythm Gastrointestinal (Abdomen): normal bowel sounds, soft, nontender, no hepatosplenomegaly Musculoskeletal: no cyanosis or clubbing, extremities motor strength 5/5 Skin: no rashes, warm and dry Neurologic: PERRL, EOMI, accommodation nl, no face palsy, no dysarthria Psychiatric: A+Ox3, euthymic affect Results & Data Vital Signs (Past 12 Hours) Vital Signs Temp Pulse Pulse Pulse Pulse Pulse Pulse 03/21/19 15:00 36.7 C 81 03/21/19 11:28 36.7 C 89 03/21/19 09:36 109 H 120 H 101 H 97 H 03/21/19 08:26 100 H 03/21/19 07:00 36.6 C 95 H Resp Resp Resp Resp Resp BP Pulse Ox 03/21/19 15:00 18 130/71 94 03/21/19 11:28 18 145/77 H 91 03/21/19 09:36 22 22 20 18 03/21/19 08:26 03/21/19 07:00 20 135/75 90 Pulse Ox Pulse Ox Pulse Ox Pulse Ox 03/21/19 15:00 03/21/19 11:28 03/21/19 09:36 93 86 L 93 89 L 03/21/19 08:26 03/21/19 07:00 (1) Hypertension Hypertension type: unspecified Qualified Code(s): I10 - Essential (primary) hypertension
[2019-03-21] MEDS: ZOLPIDEM TARTRATE 5 MG TAB PO PRN (22:22)
[2019-03-22] MEDS: ACETAMINOPHEN 325 MG TAB PO PRN (03:25)
[2019-03-22] MEDS: INSULIN ASPART 100 UNITS/ML 3 ML PEN SC SCH ×2 (08:11→13:04)
[2019-03-22] MEDS: METOPROLOL SUCC 50MG EXT REL TAB PO SCH (08:14)
[2019-03-22] MEDS: TORSEMIDE 10 MG TAB PO SCH (08:15)
[2019-03-22] MEDS: LOSARTAN POTASSIUM 50 MG TAB PO SCH (08:15)
[2019-03-22] MEDS: ASPIRIN 81 MG ECTAB PO SCH (08:16)
[2019-03-22] MEDS: DOCUSATE SODIUM 100 MG CAP PO SCH (08:16)
[2019-03-22] MEDS: DIGOXIN 0.125 MG TAB PO SCH (08:16)
[2019-03-22] MEDS: POTASSIUM CHLORIDE 10 MEQ TABCR PO SCH (08:16)
[2019-03-22] MEDS: FINASTERIDE 5 MG TAB PO SCH (08:16)
[2019-03-22] MEDS: FERROUS SULFATE 325 MG TAB PO SCH (08:16)
[2019-03-22] MEDS: cephALEXin 500 MG CAP PO SCH (08:16)
[2019-03-22] MEDS: PANTOprazole 40 MG TAB PO SCH (08:16)
[2019-03-22] MEDS: LACTOBACILLUS ACIDOPHILUS (FLORANEX) TAB PO SCH (08:18)
[2019-03-22] MEDS: levETIRAcetam 500 MG TAB PO SCH (08:18)
[2019-03-22] MEDS: INSULIN GLARGINE SOLOSTAR 100 UNITS/ML 3 ML PEN SQ SCH (08:19)
[2019-03-22] MEDS ORDERED: SODIUM BICARBONATE INFIL SCH (10:15)
[2019-03-22] MEDS ORDERED: LIDOCAINE INFIL SCH (10:15)
[2019-03-22] MEDS ORDERED: [UNRECOGNIZED DRUG - OTHER] INFIL SCH (10:15)
[2019-03-22] MEDS ORDERED: EPINEPHRINE INFIL SCH (10:15)
[2019-03-22] MEDS ORDERED: LIDOCAINE HCL 1% 20 ML VIAL ONE (10:20)
[2019-03-22] MEDS ORDERED: fentaNYL citrate 100 MCG/2 ML VIAL ONE ×2 (10:21→11:54)
[2019-03-22] MEDS ORDERED: MIDAZOLAM HCL 1 MG/ML 2ML VIAL ONE ×2 (10:21→11:06)
[2019-03-22 12:48] VITALS: PULSE 110; TEMP 97.9; O2SAT 94
[2019-03-22] MEDS: HYDROCODONE/ACETAMOPHEN 5/325MG TAB PO PRN (13:10)
[2019-03-22 14:39] VITALS: BP 140/73
--- NOTE | 2019-03-22 19:13 | Hospitalist Progress Note ---
Date of Service March 22, 2019 Assessment & Plan (1) Acute hypoxemic respiratory failure: Indurated volume overload/acute on chronic diastolic heart failure CXR:Cardiomegaly with mild volume overload and congestive change. No arminda pulmonary edema. Last ECHO:Jun 2018: EF > 70% Adequate diuresis with IV Lasix: Fluid balance -1.8 L past 24 hours Appreciate Cardiology Input Transitioned to oral torsemide 20 mg daily Stable to be discharged to rehab [facility] today Hypertension Stable continue losartan, metoprolol Chronic atrial fibrillation Rate controlled Not on anticoagulation secondary to recurrent scrotal hemorrhage Continue Digoxin, Metoprolol Mechanical Fall PT/OT Volume overload Secondary to CHF ABD USD: No ascites Venous Doppler: No DVT Chronic scrotal wounds/LE venous stasis ulcers H/O scrotal hemangioma S/P resection, ? Embolization by IR Continue Keflex started by ID as outpatient continue wound care Has minimal scrotal wound bleeding--- has been chronic intermittently since 4 years as per patient's Monitor CBC Needs vein intervention/follow up with Lovenox discontinued, aspirin held DM II Hold PO meds A1C: 7.9 Continue ISS, basal Insulin Monitor BGs H/O Traumatic intracranial hemorrhage H/O seizure disorder Continue Keppra H/O Chronic Indwelling Patiño Continue patiño catheter DVT Px: SCD Re: scrotal wound bleeding Code Status Full code Disposition: Patient currently not interested in rehab placement Patient's family unable to take care of the patient at home currently PT/OT--need rehab placement if patient agrees (2) Acute diastolic (congestive) heart failure: Presents with volume overload, hypoxia, decompensated CHF with chronic diastolic dysfunction, Management as outlined above Remains in stable volume status, Discharge to [facility] today (3) Diabetes mellitus type 2 with complications: Hemoglobin A1c 7.9 P.o. meds been kept on hold since admission Utilized insulin sliding scale, basal Lantus BSG AC and at bedtime Home antidiabetic meds will be resumed on discharge (4) Atrial fibrillation, rapid: At present rate controlled, Not on anticoagulation secondary to recurrent rectal bleeding/hemorrhage Patient is continue with digoxin, metoprolol Cardiology following (5) Hypertension: Stable continue losartan, metoprolol (6) Ulcer of scrotum: Chronic scrotal wounds/LE venous stasis ulcers H/O scrotal hemangioma S/P resection, ? Embolization by IR Continue Keflex started by ID as outpatient continue wound care Has minimal scrotal wound bleeding--- has been chronic intermittently since 4 years as per patient's wif Bilateral lower extremity varicose vein Status post bilateral lower extremity vein ablation done by Dr. Immanuel Robles (7) Scrotal varicose veins: Follow-up with Dr. Robles of endovascular medicine/interventional cardiology regarding potential venous intervention. (8) ICH (intracerebral hemorrhage): History of traumatic intracranial hemorrhage History of seizure disorder Keppra continue (9) Chronic indwelling Patiño catheter: (10) Obstructive sleep apnea: JUAN MANUEL--CPAP noncompliant; could have obesity hypoventilation syndrome contributing decompensation of diastolic CHF Morbid obesity Patient is counseled to utilize CPAP at night, Consult for dietary change exercise, weight reduction Disposition: Transfer to rehab at [facility] today Subjective Doing well today, no shortness of breath no orthopnea, status post bilateral lower extremity ultrasound ablation of varicose vein by cardiology Dr. Robles No complaint of any pain or discomfort bilateral lower extremity No orthopnea, no cough Except for rehab [facility], stable to be discharged Physical Exam Constitutional: WD/WN, vitals as above no acute distress Eyes: PERRL, conjunctivae normal, anicteric sclerae ENMT: external ear and nose normal, oropharynx normal Neck: trachea midline, no thyromegaly Respiratory: normal respiratory effort, lungs clear to auscultation Cardiovascular: Rate/Rhythm: regular rate and regular rhythm Gastrointestinal (Abdomen): normal bowel sounds, soft, nontender, no hepatosplenomegaly Musculoskeletal: no cyanosis or clubbing, extremities motor strength 5/5 Skin: no rashes, warm and dry Neurologic: PERRL, EOMI, accommodation nl, no face palsy, no dysarthria Psychiatric: A+Ox3, euthymic affect Results & Data Vital Signs (Past 12 Hours) Vital Signs Temp Pulse Pulse Pulse Resp BP BP 03/22/19 14:37 36.6 C 110 H 82 14 125/78 140/73 03/22/19 12:46 36.6 C 110 H 14 125/78 03/22/19 08:16 90 03/22/19 07:18 36.4 C L 82 19 143/79 H Pulse Ox 03/22/19 14:37 94 03/22/19 12:46 94 03/22/19 08:16 03/22/19 07:18 90 (1) Hypertension Hypertension type: unspecified Qualified Code(s): I10 - Essential (primary) hypertension
--- NOTE | 2019-03-24 08:39 | Discharge Summary ---
Date of Service March 24, 2019 Admission HPI Per Admitting Provider History obtained from patient and records. 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 Late last night patient slid from his chair at home to the floor blaming the new blanket his had placed on the chair. Unable to get up. Patient denies syncope, chest pain, S OB, cough symptoms. Increased abdominal distention, leg swelling over the last few weeks. No abdominal pain. Decreased ability to ambulate the last few weeks. Compliant with home diuretic Rx. Denies NSAID intake. EMS called by for lift assist. O2 sats noted to be 80s on room air by EMS. Patient brought to the emergency room. Patient given Vancomycin and Cefepime for possible pneumonia. 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 Principal Diagnosis ACUTE DECOMPENSATION OF DIASTOLIC HEART FAILURE -RESOLVED ACUTE ON CHRONIC RESPIRATORY FAILURE /FROM VOLUME OVERLOAD /DIASTOLIC HEART FAILURE -RESOLVED CHRONIC URINARY RETENTION WITH INDWELLING VNICENT CATHETER Discharge Exam Constitutional WD/WN, vitals as above no acute distress Eyes PERRL, conjunctivae normal, anicteric sclerae ENMT external ear and nose normal, oropharynx normal Neck trachea midline, no thyromegaly Respiratory normal respiratory effort, lungs clear to auscultation Cardiovascular Rate/Rhythm: regular rate and regular rhythm Gastrointestinal (Abdomen) normal bowel sounds, soft, nontender, no hepatosplenomegaly Musculoskeletal no cyanosis or clubbing, extremities motor strength 5/5 Skin no rashes, warm and dry Neurologic PERRL, EOMI, accommodation nl, no face palsy, no dysarthria Psychiatric A+Ox3, euthymic affect Discharge Data Allergies Allergy/AdvReac Type Severity Reaction Status Date / Time metronidazole Allergy Severe see below Verified 03/16/19 03:28 amoxicillin Allergy Intermediate rash Verified 03/16/19 03:28 Consultations 03/16/19 08:48 Consult Cardiology Routine Consult Case Management - Discharge Planning Routine 03/22/19 10:45 Consult Vascular Surgery Routine Procedures Performed Operation Date: 03/22/19 10:30 Actual Procedures p Vein Ablation Bilateral - Jaydon Robles MD Ordered Studies 03/16/19 07:06 US abdomen ltd ascites Urgent US venous doppler LE BI Urgent 03/22/19 09:59 US guide venous ablation Routine 03/22/19 10:16 CL Cath Imgs for PACS use only Routine Hospital Course (1) Acute hypoxemic respiratory failure: Indurated volume overload/acute on chronic diastolic heart failure CXR:Cardiomegaly with mild volume overload and congestive change. No arminda pulmonary edema. Last ECHO:Jun 2018: EF > 70% Adequate diuresis with IV Lasix: Fluid balance -1.8 L past 24 hours Appreciate Cardiology Input Transitioned to oral torsemide 20 mg daily Stable to be discharged to rehab [facility] today Hypertension Stable continue losartan, metoprolol Chronic atrial fibrillation Rate controlled Not on anticoagulation secondary to recurrent scrotal hemorrhage Continue Digoxin, Metoprolol Mechanical Fall PT/OT Volume overload Secondary to CHF ABD USD: No ascites Venous Doppler: No DVT Chronic scrotal wounds/LE venous stasis ulcers H/O scrotal hemangioma S/P resection, ? Embolization by IR Continue Keflex started by ID as outpatient continue wound care Has minimal scrotal wound bleeding--- has been chronic intermittently since 4 years as per patient's Monitor CBC Needs vein intervention/follow up with Lovenox discontinued, aspirin held DM II Hold PO meds A1C: 7.9 Continue ISS, basal Insulin Monitor BGs H/O Traumatic intracranial hemorrhage H/O seizure disorder Continue Keppra H/O Chronic Indwelling Vincent Continue vincent catheter DVT Px: SCD Re: scrotal wound bleeding Code Status Full code Disposition: Patient currently not interested in rehab placement Patient's family unable to take care of the patient at home currently PT/OT--need rehab placement if patient agrees (2) Acute diastolic (congestive) heart failure: Presents with volume overload, hypoxia, decompensated CHF with chronic diastolic dysfunction, Management as outlined above Remains in stable volume status, Discharge to [facility] today (3) Diabetes mellitus type 2 with complications: Hemoglobin A1c 7.9 P.o. meds been kept on hold since admission Utilized insulin sliding scale, basal Lantus BSG AC and at bedtime Home antidiabetic meds will be resumed on discharge (4) Atrial fibrillation, rapid: At present rate controlled, Not on anticoagulation secondary to recurrent rectal bleeding/hemorrhage Patient is continue with digoxin, metoprolol Cardiology following (5) Hypertension: Stable continue losartan, metoprolol (6) Ulcer of scrotum: Chronic scrotal wounds/LE venous stasis ulcers H/O scrotal hemangioma S/P resection, ? Embolization by IR Continue Keflex started by ID as outpatient continue wound care Has minimal scrotal wound bleeding--- has been chronic intermittently since 4 years as per patient's wif Bilateral lower extremity varicose vein Status post bilateral lower extremity vein ablation done by Dr. Immanuel Robles (7) Scrotal varicose veins: Follow-up with Dr. Robles of endovascular medicine/interventional cardiology regarding potential venous intervention. (8) ICH (intracerebral hemorrhage): History of traumatic intracranial hemorrhage History of seizure disorder Keppra continue (9) Chronic indwelling Vincent catheter: (10) Obstructive sleep apnea: JUAN MANUEL--CPAP noncompliant; could have obesity hypoventilation syndrome contributing decompensation of diastolic CHF Morbid obesity Patient is counseled to utilize CPAP at night, Consult for dietary change exercise, weight reduction Disposition: Transfer to rehab at [facility] Total Time Total Time Spent Total Time Spent (In Minutes): approx 40 mins Total Time Includes: Examination of the Patient, Discharge Planning and Medica tion Reconciliation Discharge Plan Discharge Items Patient Disposition: Transfer [facility] Reason For Visit: RESP FAILURE,CHF Discharge Diagnosis: ACUTE DECOMPENSATION OF DIASTOLIC HEART FAILURE -RESOLVED ACUTE ON CHRONIC RESPIRATORY FAILURE /FROM VOLUME OVERLOAD /DIASTOLIC HEART FAILURE -RESOLVED CHRONIC URINARY RETENTION WITH INDWELLING VINCENT CATHETER Activity: As commented below Activity Comment: CONTINUE PHYSICAL THERAPY AND OCCUPATIONAL THERAPY AT REHAB Non-emergency contact: Primary Care Provider Call non-emergency contact if: you have any medication questions Follow-up/Referrals: Donte Szymanski, [Primary Care Provider] - Diet: Carb Consistent or DM2 and Heart Healthy Fluids: 2000ml (8 cups) Addtl Attending Provider Instructions: FOLLOW UP WITH FAMILY PHYSICIAN AFTER DISCHARGE FORM REHAB PLEASE USE OXYGEN WHILE WALKING /WITH ACTIVITY YOU WILL BENEFIT WITH SLEEP STUDY FOR EVALUATION OF OBSTRUCTIVE SLEEP APNEA AND POSSIBLE NEED FOR CPAP Call your Primary Care doctor if any of the following symptoms or problems start or get worse: * Shortness of breath or difficulty breathing * Wake up at night short of breath * Chest pain * Cough * Swelling of your hands, feet, or legs * More fatigued or tired with your normal activity * Palpitations - sudden fast heart beats WEIGHT * Weigh yourself every morning after using the bathroom. * Use the same scale. * Wear the same amount of clothing. * Write your weight down on a chart. * Call your Primary Care doctor if you gain more than 2-3 pounds in 1-2 days. MEDICATIONS * Use this discharge instruction sheet for medication instructions. * Take your medications at the time your doctor ordered. * Do not skip a dose of your medicines. * If you miss a dose of medicine, take it as soon as possible, but DO NOT DOUBLE A DOSE. * Read your medicine information when you get home. * Know all of the side effects of your medicine. If in doubt, ask your pharmacist * Call your Primary Care doctor's office if you have any side effects. * Be sure all of your doctors know what medicine and herbs you take (including cold, flu, and herbal medicine). Take the following with you to your follow-up doctor appointments: * Weight Chart * Medication List * List of questions Do not drink excessive alcohol, beer or wine. Pending Studies at Discharge: No Stand-Alone Forms: My [facility] [employer] Skilled Items Patient informed of condition?: Yes DNR: No Discharge Level of Care: Skilled Communicable Disease: No Discharge Prognosis: Stable Lines: None Urinary Catheter: Yes Medications and DC Order Prescriptions: New torsemide 10 mg Tablet 20 mg PO QAM 30 Days Qty: 60 RF: 0 Dermacerin Cream 1 applic EXT BID 30 Days Qty: 107 RF: 0 potassium chloride [Klor-Con M10] 10 mEq Tablet,Er Particles/Crystals 10 meq PO BID 30 Days Qty: 60 RF: 0 Continued aspirin 81 mg Tablet,Delayed Release (Dr/Ec) 81 mg PO DAILY RF: 0 digoxin 125 mcg tablet 125 mcg PO DAILY RF: 0 losartan 50 mg tablet 50 mg PO DAILY RF: 0 metformin 500 mg Tablet 500 mg PO DAILY RF: 0 metoprolol succinate 200 mg tablet extended release 24 hr 200 mg PO DAILY RF: 0 pantoprazole 40 mg Tablet,Delayed Release (Dr/Ec) 40 mg PO BID RF: 0 ferrous sulfate 325 mg (65 mg iron) Tablet 325 mg PO BID RF: 0 Lactobacillus acidophilus [Acidophilus] Capsule 10,000 mmu cells PO DAILY RF: 0 finasteride 5 mg tablet 5 mg PO DAILY RF: 0 levetiracetam 500 mg Tablet 500 mg PO BID RF: 0 cephalexin 500 mg Capsule 500 mg PO TID RF: 0 hydrocodone-acetaminophen 5-325 mg Tablet 1 tab PO Q6H PRN (Reason: mild pain) Qty: 10 RF: 0 Discontinued furosemide 20 mg Tablet 20 mg PO DAILY RF: 0 potassium chloride 10 mEq tablet,ER particles/crystals 10 meq PO DAILY RF: 0 tramadol 50 mg tablet 50 mg PO Q6 PRN (Reason: Pain) Qty: 10 RF: 0 Discharge Orders: Discharge Order (Routine); Ordered 03/22/19 Ordered By: Kanwal Campbell/Other Patient Handouts: Tips Using Less Salt, Choices Low Salt, Diabetes Healthy Meals, Diabetes Carbs, Diabetes Exercise Benefits, Diabetes Exercise Get Started, Diabetes Activity Tips, Diabetes Manage A1C Test Admission Data Admit Date/Time: 03/16/19 07:11 Attending Provider: Kanwal Trotter Admit Provider: Carlos Boyce Primary Care Provider: Donte Szymanski Other Providers: Parish Lopez Christophe R. Other Interventions: Discharge Summary Assessment (RN) Last Done: 03/22/19 14:37 DC Date/Time DO NOT enter until pt leaves facility: 03/22/19 15:09
--- NOTE | 2019-03-26 17:14 | Operative Report ---
Post Operative Report Pre & Post Diagnosis Operation Date: 03/22/19 10:30 <No data on this case meets the specified criteria> Procedure Operation Date: 03/22/19 10:30 Actual Procedures p Vein Ablation Bilateral - Jaydon Robles MD Surgeon Immanuel Robles MD Roll Slicing Machine Tender Naya Young Estimated Blood Loss 10 Findings Consistent with Post-Op Diagnosis Dilated bilateral GSV Specimens none Drains none Complications none Disposition Disposition: PCU Description of Procedure US guided access left GSV above the knee. Catheter inserted, 2.5 cm from SFJ. Tumescent injected. US confirmed not in deep system. 2: 00, 6 cycles of RFA left GSV. No complications. Patient tolerated well. US confirmed no DVT post procedure. US guided access right GSV above the knee. Catheter inserted, 2.5 cm from SFJ. Tumescent injected. US confirmed not in deep system. 2: 20, 7 cycles of RFA right GSV. No complications. Patient tolerated well. US confirmed no DVT post procedure. Summary: 1. Successful RFA of right GSV 2. Successful RFA of left GSV I attest to the content of the Intraoperative Record and any orders documented therein. Any exceptions are noted below.
== END 2019-03-22 15:09 | DRG 263 ==
LOC: ED 02:24 → 2E 07:11 → SUATTDRO 07:11 → 2E 08:15 → 2W 03-20 17:12
DX: Z79.84 Long term (current) use of oral hypoglycemic drugs; E11.59 Type 2 diabetes mellitus with other circulatory complications; Z68.41 Body mass index [BMI] 40.0-44.9, adult; J96.01 Acute respiratory failure with hypoxia; I11.0 Hypertensive heart disease with heart failure; Z79.82 Long term (current) use of aspirin; D64.9 Anemia, unspecified; I48.2 Chronic atrial fibrillation; Z87.891 Personal history of nicotine dependence; Z79.899 Other long term (current) drug therapy; R33.8 Other retention of urine; N48.83 Acquired buried penis; I83.893 Varicose veins of bilateral lower extremities with other complications; I50.33 Acute on chronic diastolic (congestive) heart failure; E87.79 Other fluid overload; G47.33 Obstructive sleep apnea (adult) (pediatric); R53.1 Weakness; I86.1 Scrotal varices; G40.909 Epilepsy, unspecified, not intractable, without status epilepticus; E66.2 Morbid (severe) obesity with alveolar hypoventilation; Z91.19 Patient's noncompliance with other medical treatment and regimen; I87.8 Other specified disorders of veins

== ENCOUNTER 2019-06-17 18:54 | Inpatient (IN) ==
--- NOTE | 2019-06-17 19:20 | Emergency Department Note ---
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 The patient states that he saw Dr. Heath- Cardiology today and his blood work showed that his hemoglobin count is lower than usual. 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 The patient notes that he has had a blood transfusion 4 years ago for this same reason. The patient states that he has lower abdominal pain, perineum pain and shortness of breath upon exertion. The patient denies having black stool and chest pain. The patient notes that he does not used tobacco or drugs. The patient states that he lives at home with his who takes good care of him. Home Medications Home Medications Medication Instructions Recorded Confirmed Type aspirin 81 mg PO DAILY 06/16/18 06/17/19 History digoxin 125 mcg PO DAILY 06/16/18 06/17/19 History ferrous sulfate 325 mg PO BID 06/16/18 06/17/19 History finasteride 5 mg PO DAILY 06/16/18 06/17/19 History losartan 50 mg PO DAILY 06/16/18 06/17/19 History metformin 500 mg PO QAM 06/16/18 06/17/19 History metoprolol succinate 200 mg PO DAILY 06/16/18 06/17/19 History pantoprazole 40 mg PO BID 06/16/18 06/17/19 History levetiracetam 500 mg PO BID 03/16/19 06/17/19 History Lactobacillus acidophilus 1 tab PO BID 06/17/19 06/17/19 History cephalexin 500 mg PO BID 06/17/19 06/17/19 History hydrocodone-acetaminophen 1 tab PO BID PRN 06/17/19 06/17/19 History potassium chloride 10 meq PO DAILY 06/17/19 06/17/19 History sitagliptin [Januvia] 50 mg PO DAILY 06/17/19 06/17/19 History torsemide See Rx Instructions .ROUTE .COMPLEX 06/17/19 06/17/19 History Allergies Allergy/AdvReac Type Severity Reaction Status Date / Time metronidazole Allergy Severe see below Verified 06/17/19 20:11 amoxicillin Allergy Intermediate rash Verified 06/17/19 20:11 Past Med/Surg History Social History Preferred Language: Serbian 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 Ability: Effective Conference Service Coordinator Required: No Beliefs That Will Affect Care: None marital status: Current Living Situation: Spouse Current Living Situation Comment: Home with spouse Other Information That Helps Us Care for You: No Feels Safe at Home: Yes Safety Concerns: Feels Safe At This Time Smoking Status: Former smoker Second Hand Exposure: No ; Hx Alcohol Use: No Hx Substance Use: No Review of Systems See HPI for pertinent positives & negatives. and A total of 10 systems reviewed and were otherwise negative Physical Exam Vital Signs Vital Signs - 24 hr 06/17/19 18:58 06/17/19 19:02 06/17/19 19:18 Pulse Rate 61 66 66 Pulse Rate [Right Finger] Pulse Rhythm Regular Pulse Strength Normal Respiratory Rate 19 22 17 Respiratory Effort / Characteristics Non-Labored Respiratory Depth Normal Respiratory Pattern Regular Blood Pressure 101/60 101/60 Blood Pressure [Right Arm] Blood Pressure Mean 71 73 Blood Pressure Mean [Right Arm] Blood Pressure Position Lying Blood Pressure Position [Right Arm] Pulse Oximetry 94 Oxygen Delivery Method Room Air Oxygen Flow Rate Sepsis Recent Fever Within 48 Hours No Sepsis Action Taken by Nursing No Action Required 06/17/19 19:30 06/17/19 20:00 06/17/19 20:13 Pulse Rate 65 58 L 59 L Pulse Rate [Right Finger] 58 L Pulse Rhythm Pulse Strength Respiratory Rate 17 18 16 Respiratory Effort / Characteristics Respiratory Depth Respiratory Pattern Blood Pressure 119/53 L Blood Pressure [Right Arm] 119/53 L Blood Pressure Mean 60 Blood Pressure Mean [Right Arm] 75 Blood Pressure Position Blood Pressure Position [Right Arm] Lying Pulse Oximetry 96 95 95 Oxygen Delivery Method Nasal Cannula Oxygen Flow Rate 2 Sepsis Recent Fever Within 48 Hours Sepsis Action Taken by Nursing GENERAL: Patient is awake alert in no acute distress patient is resting comfortably and showing no signs of anxiety EYES: The conjunctivae are clear. The pupils are round and reactive. EARS, NOSE, MOUTH AND THROAT: The nose is without any evidence of any deformity. Mucous membranes are moist. Tongue is midline. NECK: The neck is nontender and supple. RESPIRATORY: Normal respiratory effort is noted there is no evidence of wheezing rhonchi or rales CARDIOVASCULAR: Regular rate and rhythm noted there no murmurs rubs or gallops normal S1 normal S2. GASTROINTESTINAL: The abdomen is mildly distended but soft. There is left-sided tenderness to palpation but no guarding or rigidity. MUSCULOSKELETAL/EXTREMITIES: There is no evidence of gross deformity full range of motion is noted in the hips and shoulders. SKIN: Venous stasis changes are noted. There is pedal edema bilaterally. NEUROLOGIC: Patient is awake alert and oriented x3. Course Course 1903: Past medical records reviewed. The patient was evaluated in room C07. A complete history and physical exam was performed. 1923: I discussed the patient's case with Dr. Lauryn Malone Hospitalist. He will evaluate the patient for further management. 2002: The patient is requesting pain medication. I will order some now. Consultations Consultation #1: I discussed the patient's case with Dr. Lauryn Malone spitalist. He will evaluate the patient for further management. Time: 19:24 Administered Medications Hydrocodone Bitart/Acetaminophen ([place] 5/325) 1 tab PO QID PRN PRN Reason: Pain Stop: 07/01/19 21:15 Last Admin: 06/17/19 21:31 Dose: 1 tab Documented by: [id number] Sodium Chloride (Nss 1000ml) 1,000 mls @ 75 mls/hr IV .[id number] ONE Stop: 06/18/19 09:06 Last Admin: 06/17/19 20:13 Dose: 75 mls/hr Documented by: [id number] Insulin Aspart (Novolog Flexpen) 0 units SC ACHS MARIYA Stop: 07/17/19 21:03 Last Admin: 06/17/19 23:02 Dose: 2 units Documented by: [id number] Cosigned by: [id number] Pantoprazole Sodium (Protonix) 40 mg PO BID MARIYA Stop: 07/17/19 21:03 Last Admin: 06/17/19 22:59 Dose: 40 mg Documented by: [id number] Discontinued Medications Cephalexin HCl (Keflex) 500 mg PO ONE ONE; Protocol Stop: 06/17/19 21:31 Last Admin: 06/17/19 22:59 Dose: 500 mg Documented by: [id number] Insulin Glargine (Lantus Solostar Pen) 5 units SC NOW STA Stop: 06/17/19 21:05 Last Admin: 06/17/19 23:00 Dose: 5 units Documented by: [id number] Cosigned by: [id number] Lorazepam (Ativan) 0.25 mg PO NOW STA Stop: 06/17/19 22:34 Last Admin: 06/17/19 22:52 Dose: 0.25 mg Documented by: [id number] Medical Decision Making Differential Diagnosis Differential diagnosis: Etiologies such as metabolic, infection, hypo/hyperglycemia, electrolyte abnormalities, cardiac sources, intracerebral event, toxicologic, neurologic, as well as others were entertained. Medical Records Attestation: I reviewed the patient's medical records. Home Medications Current Medication List: was personally reviewed by me Laboratory Data Attestation: I reviewed the patient's lab results. Result diagrams: 06/17/19 19:22 06/17/19 19:22 Lab Results 06/17/19 06/17/19 06/17/19 Range/Units 19:22 19:22 19:22 WBC 14.39 H (4.8-10.8) K/uL RBC 3.04 L (4.7-6.1) M/uL Hgb 7.6 L (14.0-18.0) g/dL POC Hgb (14.0-18.0) g/dl Hct 25.8 L (42-52) % POC Hct (42-52) % MCV 84.9 (80-100) fL MCH 25.0 (25-34) pg MCHC 29.5 L (32-36) g/dL RDW Std Deviation 50.3 H (36.4-46.3) fL RDW Coeff of Shadi 16.3 H (11.5-14.5) % Plt Count 350 (130-400) K/uL MPV 9.4 (7.4-10.4) fL Immature Gran % (Auto) 0.4 % Neut % (Auto) 87.1 % Lymph % (Auto) 7.2 % [place] % (Auto) 4.2 % Eos % (Auto) 1.0 % Baso % (Auto) 0.1 % Immature Gran # (Auto) 0.06 H (0.00-0.02) K/uL Neut # (Auto) 12.52 H (1.4-6.5) K/uL Lymph # (Auto) 1.04 L (1.2-3.4) K/uL [place] # (Auto) 0.61 H (0.11-0.59) K/uL Eos # (Auto) 0.14 (0-0.5) K/uL Baso # (Auto) 0.02 (0-0.2) K/uL Absolute Nucleated RBC 0.09 H (0-0) K/uL Nucleated RBC % (auto) 0.7 % Polychromasia 1+ Ovalocytes 1+ PT 11.4 (9.0-12.0) Seconds INR 1.1 (0.9-1.1) APTT 26.7 (21.0-31.0) Seconds PTT Ratio 1.0 VBG pH (7.36-7.41) VBG pCO2 (38-50) mmHg VBG pO2 mmHg VBG HCO3 mmol/L VBG O2 Saturation % VBG Base Excess mEq/L Barometric Pressure mm/Hg POC Sodium (135-144) mEq/L Sodium 139 (136-145) mmol/L POC Potassium (3.3-5.0) mEq/L Potassium 5.2 H (3.5-5.1) mmol/L POC Chloride (101-112) mEq/L Chloride 105 (98-107) mmol/L Carbon Dioxide 24 (21-32) mmol/L POC Total CO2 (24-31) mEq/l Anion Gap 9.0 (3-11) POC Anion Gap (16-25) mmol/L POC BUN (7-18) mg/dl BUN 56 H (7-18) mg/dl Creatinine 2.43 H (0.6-1.4) mg/dl POC Creatinine (0.6-1.3) mg/dl Est Cr Clr Drug Dosing 37.2 ml/min Est GFR ( Amer) 28.4 Est GFR (Non-Af Amer) 24.5 BUN/Creatinine Ratio 22.9 H (10-20) Glucose 168 H (70-99) mg/dl POC Glucose (other) (70-99) mg/dl Calcium 8.3 L (8.5-10.1) mg/dl POC Ioniz Calcium Pepito (1.12-1.32) mmol/l Magnesium 2.8 H (1.8-2.4) mg/dl Total Bilirubin 0.4 (0.2-1) mg/dl AST 9 L (15-37) U/L ALT 10 L (12-78) U/L Alkaline Phosphatase 51 (45-117) U/L Troponin I < 0.015 (0-0.045) ng/ml NT-Pro-B Natriuret Pep 5517 H (0-1800) pg/ml Total Protein 7.8 (6.4-8.2) gm/dl Albumin 3.0 L (3.4-5.0) gm/dl Globulin 4.8 H (2.5-4.0) gm/dl Albumin/Globulin Ratio 0.6 L (0.9-2) Digoxin (0.8-2.0) ng/ml Blood Type Antibody Screen Crossmatch 06/17/19 06/17/19 06/17/19 Range/Units 19:22 19:33 19:45 WBC (4.8-10.8) K/uL RBC (4.7-6.1) M/uL Hgb (14.0-18.0) g/dL POC Hgb 8.2 L (14.0-18.0) g/dl Hct (42-52) % POC Hct 24 L (42-52) % MCV (80-100) fL MCH (25-34) pg MCHC (32-36) g/dL RDW Std Deviation (36.4-46.3) fL RDW Coeff of Shadi (11.5-14.5) % Plt Count (130-400) K/uL MPV (7.4-10.4) fL Immature Gran % (Auto) % Neut % (Auto) % Lymph % (Auto) % [place] % (Auto) % Eos % (Auto) % Baso % (Auto) % Immature Gran # (Auto) (0.00-0.02) K/uL Neut # (Auto) (1.4-6.5) K/uL Lymph # (Auto) (1.2-3.4) K/uL [place] # (Auto) (0.11-0.59) K/uL Eos # (Auto) (0-0.5) K/uL Baso # (Auto) (0-0.2) K/uL Absolute Nucleated RBC (0-0) K/uL Nucleated RBC % (auto) % Polychromasia Ovalocytes PT (9.0-12.0) Seconds INR (0.9-1.1) APTT (21.0-31.0) Seconds PTT Ratio VBG pH 7.35 L (7.36-7.41) VBG pCO2 39 (38-50) mmHg VBG pO2 25 mmHg VBG HCO3 21 mmol/L VBG O2 Saturation < 60.0 % VBG Base Excess -4.4 mEq/L Barometric Pressure 734.8 mm/Hg POC Sodium 139 (135-144) mEq/L Sodium (136-145) mmol/L POC Potassium 5.2 H (3.3-5.0) mEq/L Potassium (3.5-5.1) mmol/L POC Chloride 105 (101-112) mEq/L Chloride (98-107) mmol/L Carbon Dioxide (21-32) mmol/L POC Total CO2 23 L (24-31) mEq/l Anion Gap (3-11) POC Anion Gap 17.0 (16-25) mmol/L POC BUN 51 H (7-18) mg/dl BUN (7-18) mg/dl Creatinine (0.6-1.4) mg/dl POC Creatinine 2.3 H (0.6-1.3) mg/dl Est Cr Clr Drug Dosing ml/min Est GFR ( Amer) Est GFR (Non-Af Amer) BUN/Creatinine Ratio (10-20) Glucose (70-99) mg/dl POC Glucose (other) 167 H (70-99) mg/dl Calcium (8.5-10.1) mg/dl POC Ioniz Calcium Pepito 1.07 L (1.12-1.32) mmol/l Magnesium (1.8-2.4) mg/dl Total Bilirubin (0.2-1) mg/dl AST (15-37) U/L ALT (12-78) U/L Alkaline Phosphatase (45-117) U/L Troponin I (0-0.045) ng/ml NT-Pro-B Natriuret Pep (0-1800) pg/ml Total Protein (6.4-8.2) gm/dl Albumin (3.4-5.0) gm/dl Globulin (2.5-4.0) gm/dl Albumin/Globulin Ratio (0.9-2) Digoxin 1.8 (0.8-2.0) ng/ml Blood Type Antibody Screen Crossmatch 06/17/19 Range/Units 19:45 WBC (4.8-10.8) K/uL RBC (4.7-6.1) M/uL Hgb (14.0-18.0) g/dL POC Hgb (14.0-18.0) g/dl Hct (42-52) % POC Hct (42-52) % MCV (80-100) fL MCH (25-34) pg MCHC (32-36) g/dL RDW Std Deviation (36.4-46.3) fL RDW Coeff of Shadi (11.5-14.5) % Plt Count (130-400) K/uL MPV (7.4-10.4) fL Immature Gran % (Auto) % Neut % (Auto) % Lymph % (Auto) % [place] % (Auto) % Eos % (Auto) % Baso % (Auto) % Immature Gran # (Auto) (0.00-0.02) K/uL Neut # (Auto) (1.4-6.5) K/uL Lymph # (Auto) (1.2-3.4) K/uL [place] # (Auto) (0.11-0.59) K/uL Eos # (Auto) (0-0.5) K/uL Baso # (Auto) (0-0.2) K/uL Absolute Nucleated RBC (0-0) K/uL Nucleated RBC % (auto) % Polychromasia Ovalocytes PT (9.0-12.0) Seconds INR (0.9-1.1) APTT (21.0-31.0) Seconds PTT Ratio VBG pH (7.36-7.41) VBG pCO2 (38-50) mmHg VBG pO2 mmHg VBG HCO3 mmol/L VBG O2 Saturation % VBG Base Excess mEq/L Barometric Pressure mm/Hg POC Sodium (135-144) mEq/L Sodium (136-145) mmol/L POC Potassium (3.3-5.0) mEq/L Potassium (3.5-5.1) mmol/L POC Chloride (101-112) mEq/L Chloride (98-107) mmol/L Carbon Dioxide (21-32) mmol/L POC Total CO2 (24-31) mEq/l Anion Gap (3-11) POC Anion Gap (16-25) mmol/L POC BUN (7-18) mg/dl BUN (7-18) mg/dl Creatinine (0.6-1.4) mg/dl POC Creatinine (0.6-1.3) mg/dl Est Cr Clr Drug Dosing ml/min Est GFR ( Amer) Est GFR (Non-Af Amer) BUN/Creatinine Ratio (10-20) Glucose (70-99) mg/dl POC Glucose (other) (70-99) mg/dl Calcium (8.5-10.1) mg/dl POC Ioniz Calcium Pepito (1.12-1.32) mmol/l Magnesium (1.8-2.4) mg/dl Total Bilirubin (0.2-1) mg/dl AST (15-37) U/L ALT (12-78) U/L Alkaline Phosphatase (45-117) U/L Troponin I (0-0.045) ng/ml NT-Pro-B Natriuret Pep (0-1800) pg/ml Total Protein (6.4-8.2) gm/dl Albumin (3.4-5.0) gm/dl Globulin (2.5-4.0) gm/dl Albumin/Globulin Ratio (0.9-2) Digoxin (0.8-2.0) ng/ml Blood Type A Positive Antibody Screen NEGATIVE Crossmatch See Detail Imaging Data Radiologist's Impression: Radiology results as stated below per my review and the radiologist's interpretation: XR chest 1V portable CLINICAL HISTORY: 78 years-old Male presenting with Dyspnea. TECHNIQUE: Portable upright AP view of the chest was obtained. COMPARISON: 03/16/2019. FINDINGS: Atherosclerosis of the aortic arch. Cardiac silhouette enlarged. Decreased prominence of pulmonary vasculature at the lung bases and decreased interstitial prominence in comparison to prior. No focal opacity. No large effusion or pneumothorax. Degenerative changes of the left glenohumeral joint. Upper abdomen normal. IMPRESSION: 1. Cardiomegaly. No other convincing evidence of acute cardiopulmonary disease. Electronically signed by: Ang Esquivel M.D. 06/17/2019 7:26 PM ECG Data Attestation: I personally reviewed and interpreted this ECG as follows: Indication: + weakness Rate (beats per minute): 65 Rhythm: + atrial fibrillation ECG ST segments: + ST depression (Lateral) and + T-wave inversions (noted ) ECG Findings: no PVCs Comparison ECG Date: from (03/16/2019) Change: the following changes noted (changes are new) Blood Pressure Blood Pressure Findings: Normal blood pressure Blood Pressure Disposition: did not require urgent referral MDM Narrative The patient is a 78-year-old male who presented to the emergency department for generalized weakness. The patient was seen by his liner machine operator today and had laboratory studies drawn. He was told to come to the emergency department because of abnormal laboratory studies. The patient was found to have a very low hemoglobin. He was also found to have an elevated creatinine. He was also found to have an abnormal EKG. I discussed the patient's laboratory and radiographic status with him. I also discussed his case with the on-call [facility] hospitalist group. They have agreed to evaluate the patient in the emergency department for further management and disposition. The patient was reevaluated multiple times. Impression & Plan Symptomatic anemia, Abnormal EKG, CIERRA (acute kidney injury), Hyperkalemia Discharge Plan Visit Data *Final* Discharge Date/Time: 06/17/19 20:45 Chief Complaint: Abnormal Labs/Diagnostic Testing Stated Complaint: ABNORMAL LABS ED Provider: Matt Barnhart Discharge Problem: Symptomatic anemia, Abnormal EKG, CIERRA (acute kidney injury), Hyperkalemia Patient Disposition: Admitted As Inpatient Discharge Instructions Interventions: ED Discharge Assessment Last Done: 06/17/19 20:45 The scribe's documentation has been prepared under my direction and personally reviewed by me in its entirety. I confirm that the note above accurately reflects all work, treatment, procedures, and medical decision making performed by me.
--- NOTE | 2019-06-17 19:28 | XRay Report ---
XR chest 1V portable CLINICAL HISTORY: 78 years-old Male presenting with Dyspnea. TECHNIQUE: Portable upright AP view of the chest was obtained. COMPARISON: 03/16/2019. FINDINGS: Atherosclerosis of the aortic arch. Cardiac silhouette enlarged. Decreased prominence of pulmonary va sculature at the lung bases and decreased interstitial prominence in comparison to prior. No focal op acity. No large effusion or pneumothorax. Degenerative changes of the left glenohumeral joint. Upper abdomen normal. IMPRESSION: 1. Cardiomegaly. No other convincing evidence of acute cardiopulmonary disease. Electronically signed by: Ang Esquivel M.D. 06/17/2019 7:26 PM
[2019-06-17 19:45] LABS: Basophils # (auto) 0.02 K/uL (0-0.2); Basophils % (auto) 0.1 %; Eosinophils # (auto) 0.14 K/uL (0-0.5); Hematocrit (blood only) 25.8 % (42-52); Hemoglobin 7.6 g/dL (14.0-18.0); Immature Granulocytes # (auto) 0.06 K/uL (0.00-0.02); Immature Granulocytes % (auto) 0.4 %; Lymphocytes # (auto) 1.04 K/uL (1.2-3.4); Lymphocytes % (auto) 7.2 %; Mean Corpuscular Hgb Conc 29.5 g/dL (32-36); Mean Corpuscular Volume 84.9 fL (80-100); Mean Platelet Volume 9.4 fL (7.4-10.4); Monocytes # (auto) 0.61 K/uL (0.11-0.59); Monocytes % (auto) 4.2 %; Neutrophils # (auto) 12.52 K/uL (1.4-6.5); Neutrophils % (auto) 87.1 %; Nucleated RBC # (auto) 0.09 K/uL (0-0); Nucleated RBC % (auto) 0.7 %; Platelet Count 350 K/uL (130-400); RDW Coefficient of Variation 16.3 % (11.5-14.5); RDW Standard Deviation 50.3 fL (36.4-46.3); Red Blood Count 3.04 M/uL (4.7-6.1); White Blood Count 14.39 K/uL (4.8-10.8)
[2019-06-17 19:45] LABS: iSTAT Creatinine 2.3 mg/dl (0.6-1.3); iSTAT Hemoglobin 8.2 g/dl (14.0-18.0); iSTAT Ionized Calcium 1.07 mmol/l (1.12-1.32); iSTAT Potassium 5.2 mEq/L (3.3-5.0)
[2019-06-17 19:46] LABS: Base Excess VBG -4.4 mEq/L; HCO3 VBG 21 mmol/L; PCO2 VBG 39 mmHg (38-50); PO2 VBG 25 mmHg; pH VBG 7.35 (7.36-7.41)
[2019-06-17 19:47] LABS: Oxygen Saturation VBG < 60.0 %
[2019-06-17] MEDS ORDERED: SODIUM CHLORIDE 0.9% 1000ML 1,000 ML IV ONE (19:47)
[2019-06-17 19:54] LABS: INR 1.1 (0.9-1.1); Partial Thromboplastin Time 26.7 Seconds (21.0-31.0); Prothrombin Time 11.4 Seconds (9.0-12.0)
[2019-06-17 20:01] LABS: Alanine Aminotransferase 10 U/L (12-78); Aspartate Aminotransferase 9 U/L (15-37); BUN Creatinine Ratio 22.9 (10-20); Blood Urea Nitrogen 56 mg/dl (7-18); Calcium 8.3 mg/dl (8.5-10.1); Carbon Dioxide 24 mmol/L (21-32); Chloride 105 mmol/L (98-107); Creatinine Clr Calc Pharmacy 37.2 ml/min; Est GFR (African American) 28.4; Est GFR (Non-African American) 24.5; Glucose 168 mg/dl (70-99); Magnesium 2.8 mg/dl (1.8-2.4); Potassium 5.2 mmol/L (3.5-5.1); Sodium 139 mmol/L (136-145)
[2019-06-17 20:06] LABS: Albumin Globulin Ratio 0.6 (0.9-2); Alkaline Phosphatase 51 U/L (45-117); Bilirubin,Total 0.4 mg/dl (0.2-1); Globulin 4.8 gm/dl (2.5-4.0); NT Pro B Type Natriuretic Pept 5517 pg/ml (0-1800); Total Protein 7.8 gm/dl (6.4-8.2); Troponin I < 0.015 ng/ml (0-0.045)
[2019-06-17 20:07] LABS: Ovalocytes 1+; Polychromasia 1+
--- NOTE | 2019-06-17 20:13 | History & Physical Report ---
Date of Service June 17, 2019 Assessment & Plan (1) Generalized weakness: Multifactorial : Symptomatic anemia, slow blood loss from chronic scrotal ulcers over the last few months, hx scrotal hemangioma status post embolization as per records, patient not interested in surgical intervention after prior specialty consultations ARF on CKD Hyperkalemia secondary to above chronic diastolic heart failure (EF 70%, TTE 2018), equivocal volume status hypertension, BP on the lower side atrial fibrillation, currently rate controlled, not on anticoagulation secondary to recurrent scrotal hemorrhage chronic scrotal wounds/LE venous stasis ulcers, currently on outpatient Keflex Rx as per ID recommendations. 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 Cardiology consult RE follow-up eval Abdominal ultrasound to ro ascites Wound care consult RE follow-up eval for scrotal, lower extremity ulcers ID consult RE duration of Keflex Rx for lower extremity ulcers (Patient was slated to see ID specialist outpatient tomorrow.) Basal insulin, ISS BG goal 1 40-1 80, carb count coverage PT OT eval DVT prophylaxis. SCDs RE bleeding scrotal wounds Full code r History of Present Illness Chief Complaint: Abnormal blood work Primary Care Provider: Donte Szymanski DO History obtained from patient, family, and records. 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 During confinement chronic scrotal wounds would bleed from time to time. Hemoglobin stable after stopping Lovenox DVT prophylaxis. 2 weeks history of generalized weakness. Some shortness of breath on exertion without chest pain. Weight gain of about 5 pounds the last 2 weeks as per home scale. Compliant with home meds. Usual bleeding from scrotal ulcers as per patient. [place] [facility] [place] administration[place]. Outpatient blood work ordered. Hemoglobin noted to be 7.5, serum creatinine noted to be 2.3. Patient instructed by manager database administration to go to the emergency room. 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 Allergies Allergy/AdvReac Type Severity Reaction Status Date / Time metronidazole Allergy Severe see below Verified 06/17/19 20:11 amoxicillin Allergy Intermediate rash Verified 06/17/19 20:11 Home Medications Home Medications Medication Instructions Recorded Confirmed Type aspirin 81 mg PO DAILY 06/16/18 06/17/19 History digoxin 125 mcg PO DAILY 06/16/18 06/17/19 History ferrous sulfate 325 mg PO BID 06/16/18 06/17/19 History finasteride 5 mg PO DAILY 06/16/18 06/17/19 History losartan 50 mg PO DAILY 06/16/18 06/17/19 History metformin 500 mg PO QAM 06/16/18 06/17/19 History metoprolol succinate 200 mg PO DAILY 06/16/18 06/17/19 History pantoprazole 40 mg PO BID 06/16/18 06/17/19 History levetiracetam 500 mg PO BID 03/16/19 06/17/19 History Lactobacillus acidophilus 1 tab PO BID 06/17/19 06/17/19 History cephalexin 500 mg PO BID 06/17/19 06/17/19 History hydrocodone-acetaminophen 1 tab PO BID PRN 06/17/19 06/17/19 History potassium chloride 10 meq PO DAILY 06/17/19 06/17/19 History sitagliptin [Januvia] 50 mg PO DAILY 06/17/19 06/17/19 History torsemide See Rx Instructions .ROUTE .COMPLEX 06/17/19 06/17/19 History Past Med/Surg History Social History Preferred Language: Kyrgyz 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 Ability: Effective Aerospace 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 Required: No Beliefs That Will Affect Care: None marital status: Current Living Situation: Spouse Current Living Situation Comment: Home with spouse Other Information That Helps Us Care for You: No Feels Safe at Home: Yes Safety Concerns: Feels Safe At This Time Smoking Status: Former smoker Second Hand Exposure: No ; Hx Alcohol Use: No Hx Substance Use: No Review of Systems Review of Systems: As per HPI, all 10 systems reviewed, all other ROS negative Physical Exam Physical Exam: GENERAL: uncomfortable, morbidly obese, slightly hard of hearing, no respiratory distress SKIN: Pallor , warm HEENT: Pale palpebral conjunctivae, no ptosis, dry buccal mucosa NECK : Supple, short, no tenderness CHEST : Decreased breath sounds , no tenderness HEART : irregular, systolic murmur ABDOMEN: distention, nontender : Baires cath in place, scrotal swelling with ulcerations with dried blood, no purulent drainage EXTREMITIES : Chronic LE venous stasis, dressing noted on some areas of the lo wer extremities, minimal LE tenderness NEUROLOGIC : Coherent, no facial asymmetry, mild hearing impairment, no other gross focality Results & Data Vital Signs (Past 12 Hours) Vital Signs Pulse Resp BP Pulse Ox 06/17/19 19:18 66 17 101/60 94 Laboratory Results Laboratory Results WBC 14.39 K/uL (4.8-10.8) H 06/17/19 19:22 RBC 3.04 M/uL (4.7-6.1) L 06/17/19 19:22 Hgb 7.6 g/dL (14.0-18.0) L 06/17/19 19:22 POC Hgb 8.2 g/dl (14.0-18.0) L 06/17/19 19:33 Hct 25.8 % (42-52) L 06/17/19 19:22 POC Hct 24 % (42-52) L 06/17/19 19:33 MCV 84.9 fL (80-100) 06/17/19 19:22 MCH 25.0 pg (25-34) 06/17/19 19:22 MCHC 29.5 g/dL (32-36) L 06/17/19 19:22 RDW Std Deviation 50.3 fL (36.4-46.3) H 06/17/19 19:22 RDW Coeff of Shadi 16.3 % (11.5-14.5) H 06/17/19 19:22 Plt Count 350 K/uL (130-400) 06/17/19 19:22 MPV 9.4 fL (7.4-10.4) 06/17/19 19:22 Immature Gran % (Auto) 0.4 % 06/17/19 19:22 Neut % (Auto) 87.1 % 06/17/19 19:22 Lymph % (Auto) 7.2 % 06/17/19 19:22 [place] % (Auto) 4.2 % 06/17/19 19:22 Eos % (Auto) 1.0 % 06/17/19 19: Baso % (Auto) 0.1 % 06/17/19: Immature Gran # (Auto) 0.06 K/uL (0.00-0.02) H 06/17/19 19: Neut # (Auto) 12.52 K/uL (1.4-6.5) H 06/17/19 19: Lymph # (Auto) 1.04 K/uL (1.2-3.4) L 06/17/19 19:22 [place] # (Auto) 0.61 K/uL (0.11-0.59) H 06/17/19 19:22 Eos # (Auto) 0.14 K/uL (0-0.5) 06/17/19: Baso # (Auto) 0.02 K/uL (0-0.2) 06/17/19: Absolute Nucleated RBC 0.09 K/uL (0-0) H 06/17/19: Nucleated RBC % (auto) 0.7 % 06/17/19 19: Polychromasia 1+ 06/17/19 19: Ovalocytes 1+ 06/17/19 19:22 PT 11.4 Seconds (9.0-12.0) 06/17/19 19:22 INR 1.1 (0.9-1.1) 06/17/19 19:22 APTT 26.7 Seconds (21.0-31.0) 06/17/19 19:22 PTT Ratio 1.0 06/17/19 19: VBG pH 7.35 (7.36-7.41) L 12/16/19 19:45 VBG pCO2 39 mmHg (38-50) 06/17/19 19:45 VBG pO2 25 mmHg 06/17/19 19:45 VBG HCO3 21 mmol/L 06/17/19 19:45 VBG O2 Saturation < 60.0 % 06/17/19 19:45 VBG Base Excess -4.4 mEq/L 06/17/19 19:45 Barometric Pressure 734.8 mm/Hg 06/17/19 19:45 POC Sodium 139 mEq/L (135-144) 06/17/19 19:33 Sodium 139 mmol/L (136-145) 06/17/19 19:22 POC Potassium 5.2 mEq/L (3.3-5.0) H 06/17/19 19:33 Potassium 5.2 mmol/L (3.5-5.1) H 06/17/19 19:22 POC Chloride 105 mEq/L (101-112) 06/17/19 19:33 Chloride 105 mmol/L (98-107) 06/17/19 19:22 Carbon Dioxide 24 mmol/L (21-32) 06/17/19 19:22 POC Total CO2 23 mEq/l (24-31) L 06/17/19 19:33 Anion Gap 9.0 (3-11) 06/17/19 19:22 POC Anion Gap 17.0 mmol/L (16-25) 06/17/19 19:33 POC BUN 51 mg/dl (7-18) H 06/17/19 19:33 BUN 56 mg/dl (7-18) H 06/17/19 19:22 Creatinine 2.43 mg/dl (0.6-1.4) H 06/17/19 19:22 POC Creatinine 2.3 mg/dl (0.6-1.3) H 06/17/19 19:33 Est Cr Clr Drug Dosing 37.2 ml/min 06/17/19 19:22 Est GFR ( Amer) 28.4 06/17/19 19:22 Est GFR (Non-Af Amer) 24.5 06/17/19 19:22 BUN/Creatinine Ratio 22.9 (10-20) H 06/17/19 19:22 Glucose 168 mg/dl (70-99) H 06/17/19 19:22 POC Glucose (other) 167 mg/dl (70-99) H 06/17/19 19:33 Calcium 8.3 mg/dl (8.5-10.1) L 06/17/19 19:22 POC Ioniz Calcium Pepito 1.07 mmol/l (1.12-1.32) L 06/17/19 19:33 Magnesium 2.8 mg/dl (1.8-2.4) H 06/17/19 19:22 Total Bilirubin 0.4 mg/dl (0.2-1) 06/17/19 19:22 AST 9 U/L (15-37) L 06/17/19 19:22 ALT 10 U/L (12-78) L 06/17/19 19:22 Alkaline Phosphatase 51 U/L (45-117) 06/17/19 19:22 Troponin I < 0.015 ng/ml (0-0.045) 06/17/19 19:22 NT-Pro-B Natriuret Pep 5517 pg/ml (0-1800) H 06/17/19 19:22 Total Protein 7.8 gm/dl (6.4-8.2) 06/17/19 19:22 Albumin 3.0 gm/dl (3.4-5.0) L 06/17/19 19:22 Globulin 4.8 gm/dl (2.5-4.0) H 06/17/19 19:22 Albumin/Globulin Ratio 0.6 (0.9-2) L 06/17/19 19:22 Diagnostic Findings Chest x-ray : Cardiomegaly EKG as per my interpretation : Rate 65, A. fib, LAD, LAFB, ST depression inferior, anterolateral leads
[2019-06-17] MEDS ORDERED: DEXTROSE 50% 50 ML SYRINGE IV PRN ×2 (21:04→21:15)
[2019-06-17] MEDS ORDERED: SODIUM CHLORIDE 0.9% 250 ML IV PRN (21:04)
[2019-06-17] MEDS ORDERED: PROMETHAZINE HCL 12.5 MG in SODIUM CHLORIDE 0.9% 50 ML IV PRN (21:04)
[2019-06-17] MEDS ORDERED: CARBOHYDRATES FOR HYPOGLYCEMIA PO PRN ×2 (21:04→21:15)
[2019-06-17] MEDS ORDERED: LACTOBACILLUS ACIDOPHILUS PO SCH (21:04)
[2019-06-17] MEDS ORDERED: GLUCOSE 40% GEL 15 GM TUBE PO PRN ×2 (21:04→21:15)
[2019-06-17] MEDS ORDERED: GLUCOSE 10 TABS/TUBE PO PRN ×2 (21:04→21:15)
[2019-06-17] MEDS ORDERED: INSULIN GLARGINE SOLOSTAR 100 UNITS/ML 3 ML PEN SC STA (21:04)
[2019-06-17] MEDS ORDERED: GLUCAGON FOR INJ 1 MG VIAL SQ PRN (21:04)
[2019-06-17] MEDS ORDERED: GLUCAGON FOR INJ 1 MG VIAL IM PRN (21:15)
[2019-06-17] MEDS ORDERED: [UNRECOGNIZED DRUG - OTHER] PRN (21:21)
[2019-06-17] MEDS ORDERED: cephALEXin 500 MG CAP PO ONE (21:30)
[2019-06-17] MEDS: HYDROCODONE/ACETAMOPHEN 5/325MG TAB PO PRN (21:31)
[2019-06-17] MEDS ORDERED: LORazepam 0.5 MG TAB PO STA (22:33)
[2019-06-17] MEDS: PANTOprazole 40 MG TAB PO SCH (22:59)
[2019-06-17] MEDS: INSULIN ASPART 100 UNITS/ML 3 ML PEN SC SCH (23:02)
[2019-06-18 02:31] LABS: Basophils # (auto) 0.02 K/uL (0-0.2); Basophils % (auto) 0.2 %; Eosinophils # (auto) 0.34 K/uL (0-0.5); Eosinophils % (auto) 2.8 %; Hematocrit (blood only) 26.3 % (42-52); Hemoglobin 7.8 g/dL (14.0-18.0); Immature Granulocytes # (auto) 0.05 K/uL (0.00-0.02); Immature Granulocytes % (auto) 0.4 %; Lymphocytes # (auto) 1.31 K/uL (1.2-3.4); Lymphocytes % (auto) 10.8 %; Mean Corpuscular Hemoglobin 25.3 pg (25-34); Mean Corpuscular Hgb Conc 29.7 g/dL (32-36); Mean Corpuscular Volume 85.4 fL (80-100); Mean Platelet Volume 9.2 fL (7.4-10.4); Monocytes # (auto) 0.71 K/uL (0.11-0.59); Monocytes % (auto) 5.9 %; Neutrophils # (auto) 9.66 K/uL (1.4-6.5); Neutrophils % (auto) 79.9 %; Nucleated RBC # (auto) 0.07 K/uL (0-0); Nucleated RBC % (auto) 0.6 %; Platelet Count 312 K/uL (130-400); RDW Coefficient of Variation 16.2 % (11.5-14.5); RDW Standard Deviation 50.2 fL (36.4-46.3); Red Blood Count 3.08 M/uL (4.7-6.1); White Blood Count 12.09 K/uL (4.8-10.8)
[2019-06-18 02:47] LABS: BUN Creatinine Ratio 24.6 (10-20); Calcium 7.9 mg/dl (8.5-10.1); Creatinine Clr Calc Pharmacy 39.6 ml/min; Est GFR (African American) 31.4; Est GFR (Non-African American) 27.1; Potassium 5.2 mmol/L (3.5-5.1)
[2019-06-18] MEDS ORDERED: SODIUM CHLORIDE 0.9% 250 ML IV PRN (02:57)
[2019-06-18] MEDS: HYDROCODONE/ACETAMOPHEN 5/325MG TAB PO PRN ×4 (03:00→21:36)
[2019-06-18 03:18] LABS: Polychromasia 1+; Target Cells 1+
[2019-06-18] MEDS: METOPROLOL SUCC 50MG EXT REL TAB PO SCH (08:19)
[2019-06-18] MEDS: PANTOprazole 40 MG TAB PO SCH ×2 (08:19→21:36)
[2019-06-18] MEDS: cephALEXin 500 MG CAP PO SCH ×2 (08:19→21:33)
[2019-06-18] MEDS: FERROUS SULFATE 325 MG TAB PO SCH ×2 (08:19→16:17)
[2019-06-18] MEDS: FINASTERIDE 5 MG TAB PO SCH (08:20)
[2019-06-18] MEDS: levETIRAcetam 500 MG TAB PO SCH ×2 (08:20→21:33)
[2019-06-18] MEDS: INSULIN ASPART 100 UNITS/ML 3 ML PEN SC SCH ×4 (08:20→21:34)
[2019-06-18 08:39] LABS: Appearance Urine Cloudy (Clear); Bacteria Urine Automated 4+ (Negative); Bilirubin Urine Negative (Negative); Blood Urine Trace (Negative); Color Urine Yellow; Epithelial Cell Urine Auto 0-5 /lpf (0-5); Glucose Urine UA Negative (Negative); Ketones Urine Negative (Negative); Leukocyte Esterase Urine 3+ (Negative); Nitrite Urine Positive (Negative); RBC Urine Automated 0-4 /hpf (0-4); Urobilinogen Urine Negative (Negative); WBC Urine Automated >30 /hpf (0-5); pH Urine 7.5 (4.5-7.5)
[2019-06-18 09:32] LABS: Protein Urine Trace (Negative); Sulfosalicylic Acid Urine Positive (Negative)
[2019-06-18 10:50] LABS: Hematocrit (blood only) 29.1 % (42-52); Hemoglobin 8.8 g/dL (14.0-18.0)
[2019-06-18 11:17] LABS: Creatinine Clr Calc Pharmacy 39.5 ml/min; Est GFR (African American) 33.3; Est GFR (Non-African American) 28.8; Potassium 4.8 mmol/L (3.5-5.1)
--- NOTE | 2019-06-18 12:53 | Infectious Disease Consult ---
Date of Consultation June 18, 2019 Assessment & Plan (1) Venous stasis ulcers of both lower extremities: suggest continued keflex 500mg po bid for suppression, will plan to follow post d/c in wound center. History of Present Illness Attending Physician: Yung Partida MD pt admitted after having 2 weeks of increased weakness, was evaluated in office, labs done, hgb 7.5, instructed to come to ER, was admitted. on my exam he is feeling better. He denies any cp, sob, cough, no abd pain, no n/v/d. no pain in legs. he has been on suppressive keflex for lower extremity wounds, tolerating well with improvement. He was to be seen in wound center today for routine follow up but was admitted overnight. no f/c. patiño in place. He is afebrile. cxr negative. he is on no abx currenlty, no micro pending. ID consulted for leg ulcers Allergies Allergy/AdvReac Type Severity Reaction Status Date / Time metronidazole Allergy Severe see below Verified 06/17/19 20:11 amoxicillin Allergy Intermediate rash Verified 06/17/19 20:11 Home Medications Home Medications Medication Instructions Recorded Confirmed Type aspirin 81 mg PO DAILY 06/16/18 06/17/19 History digoxin 125 mcg PO DAILY 06/16/18 06/17/19 History ferrous sulfate 325 mg PO BID 06/16/18 06/17/19 History finasteride 5 mg PO DAILY 06/16/18 06/17/19 History losartan 50 mg PO DAILY 06/16/18 06/17/19 History metformin 500 mg PO QAM 06/16/18 06/17/19 History metoprolol succinate 200 mg PO DAILY 06/16/18 06/17/19 History pantoprazole 40 mg PO BID 06/16/18 06/17/19 History levetiracetam 500 mg PO BID 03/16/19 06/17/19 History Lactobacillus acidophilus 1 tab PO BID 06/17/19 06/17/19 History cephalexin 500 mg PO BID 06/17/19 06/17/19 History hydrocodone-acetaminophen 1 tab PO BID PRN 06/17/19 06/17/19 History potassium chloride 10 meq PO DAILY 06/17/19 06/17/19 History sitagliptin [Januvia] 50 mg PO DAILY 06/17/19 06/17/19 History torsemide See Rx Instructions .ROUTE .COMPLEX 06/17/19 06/17/19 History Patient History Medical History Acquired buried penis (Chronic) Acquired claw toe of left foot (Acute) Acquired claw toe of right foot (Acute) Acute diastolic (congestive) heart failure Acute renal insufficiency (Acute) Acute urinary retention (Acute) CIERRA (acute kidney injury) Atrial fibrillation with RVR (Acute) Barretts esophagus Benign hypertension (Chronic) Bilateral swelling of feet (Acute) BPH without urinary obstruction (Chronic) Callus (Acute) Chronic a-fib Chronic diastolic CHF (congestive heart failure) (Chronic) Chronic diastolic CHF (congestive heart failure) (Chronic) Chronic indwelling Patiño catheter (Chronic) Chronic venous insufficiency (Chronic) Complicated UTI (urinary tract infection) (Acute) Diabetes (Chronic) 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 (Acute) 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, with fat layer exposed (Acute) Diverticulosis of colon (without mention of hemorrhage) (Chronic) DM (diabetes mellitus), type 2, uncontrolled w/ophthalmic complication (Chronic) DVT prophylaxis DVT prophylaxis Esophageal candidiasis (Acute) Exertional dyspnea (Chronic) Gastric ulcer with hemorrhage (Chronic) Gastric ulcer with hemorrhage but without obstruction (Chronic) H/O Clostridium difficile infection (Chronic) Hemangioma of skin (Chronic) History of chronic atrial fibrillation (Chronic) Hypertension Hypoxia ICH (intracerebral hemorrhage) (Chronic) Leukocytosis Morbid obesity (Acute) Morbid obesity (Chronic) Open wound of scrotum JUAN MANUEL (obstructive sleep apnea) (Chronic) Peripheral arterial disease Rhabdomyolysis (Acute) Scrotal varicose veins (Chronic) Sepsis (Chronic) Severe sepsis Skin ulcer of left foot including toes (Acute) Symptomatic anemia (Chronic) Ulcer of scrotum (Chronic) Urinary retention (Chronic) Surgical History History of total replacement of right hip (Chronic) S/P cholecystectomy (Chronic) S/P tonsillectomy and adenoidectomy (Chronic) Family History Other No significant family history Social History Preferred Language: Welsh 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 Ability: Effective 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 Beliefs That Will Affect Care: None marital status: Current Living Situation: Spouse Current Living Situation Comment: Home with spouse Other Information That Helps Us Care for You: No Feels Safe at Home: Yes Safety Concerns: Feels Safe At This Time Smoking Status: Former smoker Second Hand Exposure: No ; Hx Alcohol Use: No Hx Substance Use: No Review of Systems Review of Systems: All systems reviewed & are unremarkable except as noted in HPI & below Physical Exam Constitutional: WD/WN, vitals as above Eyes: PERRL, conjunctivae normal, anicteric sclerae ENMT: external ear and nose normal, oropharynx normal Neck: normal visual inspection Respiratory: normal respiratory effort, lungs clear to auscultation Cardiovascular: RRR, no murmur, no edema Gastrointestinal (Abdomen): normal bowel sounds, soft, nontender, no hepatosplenomegaly Musculoskeletal: Head/Neck/Chest: + head abnormal to inspection, normocephalic and head atraumatic Skin: no rashes, warm and dry Psychiatric: A+Ox3, euthymic affect Results & Data Vital Signs (Past 12 Hours) Vital Signs Temp Pulse Pulse Resp BP BP Pulse Ox 06/18/19 11:28 36.6 C 64 20 141/67 H 90 06/18/19 08:51 54 L 06/18/19 07:19 36.5 C 57 L 20 143/66 H 90 06/18/19 05:56 36.6 C 57 L 16 127/69 90 06/18/19 05:43 36.6 C 54 L 16 104/55 L 94 06/18/19 05:15 36.6 C 54 L 16 109/55 L 94 06/18/19 04:43 36.6 C 53 L 16 128/72 96 06/18/19 04:13 36.5 C 53 L 16 122/74 98 06/18/19 04:00 36.5 C 53 L 16 124/71 98 06/18/19 03:58 36.5 C 53 L 16 124/71 98 06/18/19 03:39 36.5 C 58 L 16 116/68 90 06/18/19 02:53 36.5 C 56 L 16 127/72 94 PG Care Time/CCT Total # of Minutes Spent Total Time Spent with Patient: Total time spent is greater than 50% in coordination of care (as documented) at patient's floor/unit and/or counseling patient:
--- NOTE | 2019-06-18 13:36 | Wound Consultation ---
Date of Consultation June 18, 2019 Assessment & Plan (1) Open wound of scrotum: No debridement required. Wounds chronic and good for the patient. Wounds will be dressed with facundo. (2) Scrotal varicose veins: (3) 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, with fat layer exposed: chronic wound. No debridement required. [place] wound with betadine. Follow up after discharge. History of Present Illness Reason for Consultation: scrotal ulcers Attending Physician: Yung Partida MD History of Present Illness This is a 78 year old male with a history of scrotal ulcers s/p embolization, afib, chronic chf, htn, seizure disorder and type 2 diabetes admitted with generalized weakness and acute renal failure. I am being consulted for the chronic scrotal ulcers for which he follows in the wound clinic. Allergies Allergy/AdvReac Type Severity Reaction Status Date / Time metronidazole Allergy Severe see below Verified 06/17/19 20:11 amoxicillin Allergy Intermediate rash Verified 06/17/19 20:11 Home Medications Home Medications Medication Instructions Recorded Confirmed Type aspirin 81 mg PO DAILY 06/16/18 06/17/19 History digoxin 125 mcg PO DAILY 06/16/18 06/17/19 History ferrous sulfate 325 mg PO BID 06/16/18 06/17/19 History finasteride 5 mg PO DAILY 06/16/18 06/17/19 History losartan 50 mg PO DAILY 06/16/18 06/17/19 History metformin 500 mg PO QAM 06/16/18 06/17/19 History metoprolol succinate 200 mg PO DAILY 06/16/18 06/17/19 History pantoprazole 40 mg PO BID 06/16/18 06/17/19 History levetiracetam 500 mg PO BID 03/16/19 06/17/19 History Lactobacillus acidophilus 1 tab PO BID 06/17/19 06/17/19 History cephalexin 500 mg PO BID 06/17/19 06/17/19 History hydrocodone-acetaminophen 1 tab PO BID PRN 06/17/19 06/17/19 History potassium chloride 10 meq PO DAILY 06/17/19 06/17/19 History sitagliptin [Januvia] 50 mg PO DAILY 06/17/19 06/17/19 History torsemide See Rx Instructions .ROUTE .COMPLEX 06/17/19 06/17/19 History Patient History Medical History Acquired buried penis (Chronic) Acquired claw toe of left foot (Acute) Acquired claw toe of right foot (Acute) Acute diastolic (congestive) heart failure Acute renal insufficiency (Acute) Acute urinary retention (Acute) CIERRA (acute kidney injury) Atrial fibrillation with RVR (Acute) Barretts esophagus Benign hypertension (Chronic) Bilateral swelling of feet (Acute) BPH without urinary obstruction (Chronic) Callus (Acute) Chronic a-fib Chronic diastolic CHF (congestive heart failure) (Chronic) Chronic diastolic CHF (congestive heart failure) (Chronic) Chronic indwelling Baires catheter (Chronic) Chronic venous insufficiency (Chronic) Complicated UTI (urinary tract infection) (Acute) Diabetes (Chronic) 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 (Acute) 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, with fat layer exposed (Acute) Diverticulosis of colon (without mention of hemorrhage) (Chronic) DM (diabetes mellitus), type 2, uncontrolled w/ophthalmic complication (Chronic) DVT prophylaxis DVT prophylaxis Esophageal candidiasis (Acute) Exertional dyspnea (Chronic) Gastric ulcer with hemorrhage (Chronic) Gastric ulcer with hemorrhage but without obstruction (Chronic) H/O Clostridium difficile infection (Chronic) Hemangioma of skin (Chronic) History of chronic atrial fibrillation (Chronic) Hypertension Hypoxia ICH (intracerebral hemorrhage) (Chronic) Leukocytosis Morbid obesity (Acute) Morbid obesity (Chronic) Open wound of scrotum JUAN MANUEL (obstructive sleep apnea) (Chronic) Peripheral arterial disease Rhabdomyolysis (Acute) Scrotal varicose veins (Chronic) Sepsis (Chronic) Severe sepsis Skin ulcer of left foot including toes (Acute) Symptomatic anemia (Chronic) Ulcer of scrotum (Chronic) Urinary retention (Chronic) Surgical History History of total replacement of right hip (Chronic) S/P cholecystectomy (Chronic) S/P tonsillectomy and adenoidectomy (Chronic) Family History Other No significant family history Social History Preferred Language: Syrian 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 Ability: Effective Pumper Hand Required: No Beliefs That Will Affect Care: None marital status: Current Living Situation: Spouse Current Living Situation Comment: Home with spouse Other Information That Helps Us Care for You: No Feels Safe at Home: Yes Safety Concerns: Feels Safe At This Time Smoking Status: Former smoker Second Hand Exposure: No ; Hx Alcohol Use: No Hx Substance Use: No Review of Systems Review of Systems: All systems reviewed & are unremarkable except as noted in HPI & below Physical Exam Constitutional: WD/WN, vitals as above + obese Eyes: PERRL, conjunctivae normal, anicteric sclerae ENMT: Ears: no hearing impairment Skin: wound measuring as recorded in nursing documentation. Bleeding scrotal ulcers secondary to varicoseals. Neurologic: awake; not confused Psychiatric: A+Ox3, euthymic affect Results & Data Vital Signs (Past 12 Hours) Vital Signs Temp Pulse Pulse Resp BP BP Pulse Ox 06/18/19 11:28 36.6 C 64 20 141/67 H 90 06/18/19 08:51 54 L 06/18/19 07:19 36.5 C 57 L 20 143/66 H 90 06/18/19 05:56 36.6 C 57 L 16 127/69 90 06/18/19 05:43 36.6 C 54 L 16 104/55 L 94 06/18/19 05:15 36.6 C 54 L 16 109/55 L 94 06/18/19 04:43 36.6 C 53 L 16 128/72 96 06/18/19 04:13 36.5 C 53 L 16 122/74 98 06/18/19 04:00 36.5 C 53 L 16 124/71 98 06/18/19 03:58 36.5 C 53 L 16 124/71 98 06/18/19 03:39 36.5 C 58 L 16 116/68 90 06/18/19 02:53 36.5 C 56 L 16 127/72 94 PG Care Time/CCT Total # of Minutes Spent Total Time Spent with Patient: Total time spent is greater than 50% in coordination of care (as documented) at patient's floor/unit and/or counseling patient:
[2019-06-18] MEDS ORDERED: DIGOXIN 0.125 MG TAB PO SCH (16:00)
--- NOTE | 2019-06-18 16:25 | Cardiology Consultation ---
Date of Consultation June 18, 2019 Assessment & Plan (1) Chronic a-fib: Patient is a chronically ill 78-year-old male underlying issues of right heart failure morbid obesity and hypoventilation. He has chronic atrial fibrillation, as below rates controlled. Anticoagulation contraindicated due to past bleeding issues Will hold aspirin EKG suggestive of dig effect Hold digoxin (2) Chronic diastolic CHF (congestive heart failure): Chronic ongoing issues secondary to right heart issues morbid obesity hypoventilation Would hold diuretics as already being done given acute renal insufficiency (3) CIERRA (acute kidney injury): Acute Diuretics on hold (4) Morbid obesity: (5) Obstructive sleep apnea: (6) Abnormal EKG: Suspicious for dig effect. Digoxin level on presentation 1.8 in the setting of acute renal insufficiency, renally excreted drug We will hold digoxin, atrial fibrillation rates adequately controlled on current dose of beta-john History of Present Illness Reason for Consultation: Ongoing cardiac care Requesting Physician: Dr. Gonzalez Attending Physician: Yung Partida MD History of Present Illness Patient is a 78-year-old male with complex constellation of issues which include 1. Chronic diastolic heart failure preserved systolic function 2. Chronic rate controlled atrial fibrillation. - Anticoagulation discontinued due to large volume bleeding related to large perineal/scrotal vascular malformation as well as history of small intracranial bleed secondary to trauma 3. Morbid obesity 4. HTN - controlled 5. Dyslipidemia goal LDL less than 100mg/dL - controlled 6. H/o mechanical fall with resultant head trauma, small frontal parenchymal hemorrhage, and suboccipital hematoma. - no recurrent falls over the last 6 months 7. JUAN MANUEL - intolerant to CPAP 8. Insulin resistance/ Metabolic syndrome The patient presents this admission with symptomatic anemia and acute on chronic renal insufficiency. Patient is received transfusion since admission denies any acute cardiac complaints denies chest pains or worsening shortness of breath. Denies dizziness or lightheadedness. Patient only fair historian. Has been following with wound clinic due to chronic scrotal ulcerations and lower extremity ulcerations and cellulitis Weight per patient has been stable Allergies Allergy/AdvReac Type Severity Reaction Status Date / Time metronidazole Allergy Severe see below Verified 06/17/19 20:11 amoxicillin Allergy Intermediate rash Verified 06/17/19 20:11 Home Medications Home Medications Medication Instructions Recorded Confirmed Type aspirin 81 mg PO DAILY 06/16/18 06/17/19 History digoxin 125 mcg PO DAILY 06/16/18 06/17/19 History ferrous sulfate 325 mg PO BID 06/16/18 06/17/19 History finasteride 5 mg PO DAILY 06/16/18 06/17/19 History losartan 50 mg PO DAILY 06/16/18 06/17/19 History metformin 500 mg PO QAM 06/16/18 06/17/19 History metoprolol succinate 200 mg PO DAILY 06/16/18 06/17/19 History pantoprazole 40 mg PO BID 06/16/18 06/17/19 History levetiracetam 500 mg PO BID 03/16/19 06/17/19 History Lactobacillus acidophilus 1 tab PO BID 06/17/19 06/17/19 History cephalexin 500 mg PO BID 06/17/19 06/17/19 History hydrocodone-acetaminophen 1 tab PO BID PRN 06/17/19 06/17/19 History potassium chloride 10 meq PO DAILY 06/17/19 06/17/19 History sitagliptin [Januvia] 50 mg PO DAILY 06/17/19 06/17/19 History torsemide See Rx Instructions .ROUTE .COMPLEX 06/17/19 06/17/19 History Patient History Medical History Acquired buried penis (Chronic) Acquired claw toe of left foot (Acute) Acquired claw toe of right foot (Acute) Acute diastolic (congestive) heart failure Acute renal insufficiency (Acute) Acute urinary retention (Acute) CIERRA (acute kidney injury) Atrial fibrillation with RVR (Acute) Barretts esophagus Benign hypertension (Chronic) Bilateral swelling of feet (Acute) BPH without urinary obstruction (Chronic) Callus (Acute) Chronic a-fib Chronic diastolic CHF (congestive heart failure) (Chronic) Chronic diastolic CHF (congestive heart failure) (Chronic) Chronic indwelling Baires catheter (Chronic) Chronic venous insufficiency (Chronic) Complicated UTI (urinary tract infection) (Acute) Diabetes (Chronic) 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 (Acute) 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, with fat layer exposed (Acute) Diverticulosis of colon (without mention of hemorrhage) (Chronic) DM (diabetes mellitus), type 2, uncontrolled w/ophthalmic complication (Chronic) DVT prophylaxis DVT prophylaxis Esophageal candidiasis (Acute) Exertional dyspnea (Chronic) Gastric ulcer with hemorrhage (Chronic) Gastric ulcer with hemorrhage but without obstruction (Chronic) H/O Clostridium difficile infection (Chronic) Hemangioma of skin (Chronic) History of chronic atrial fibrillation (Chronic) Hypertension Hypoxia ICH (intracerebral hemorrhage) (Chronic) Leukocytosis Morbid obesity (Acute) Morbid obesity (Chronic) Open wound of scrotum JUAN MANUEL (obstructive sleep apnea) (Chronic) Peripheral arterial disease Rhabdomyolysis (Acute) Scrotal varicose veins (Chronic) Sepsis (Chronic) Severe sepsis Skin ulcer of left foot including toes (Acute) Symptomatic anemia (Chronic) Ulcer of scrotum (Chronic) Urinary retention (Chronic) Surgical History History of total replacement of right hip (Chronic) S/P cholecystectomy (Chronic) S/P tonsillectomy and adenoidectomy (Chronic) Family History Other No significant family history Social History Preferred Language: Urdu 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 Ability: Effective Scale Mechanic Required: No Beliefs That Will Affect Care: None marital status: Current Living Situation: Spouse Current Living Situation Comment: Home with spouse Other Information That Helps Us Care for You: No Feels Safe at Home: Yes Safety Concerns: Feels Safe At This Time Smoking Status: Former smoker Second Hand Exposure: No ; Hx Alcohol Use: No Hx Substance Use: No Physical Exam Constitutional: + morbidly obese Eyes: PERRL, conjunctivae normal, anicteric sclerae ENMT: external ear and nose normal, oropharynx normal Neck: + thick neck Respiratory: Auscultation: + diminished lung sounds Cardiovascular: Rate/Rhythm: + irregularly irregular Heart Sounds: no murmur Vessels: no JVD Extremities: + edema (Chronic stasis changes bilateral lower extremities) Gastrointestinal (Abdomen): Percussion/Palpation: abdomen nontender Musculoskeletal: Head/Neck/Chest: normocephalic and head atraumatic Skin: + wound (Chronic ulcerations of lower extremities and scrotum) Neurologic: PERRL, EOMI, accommodation nl, no face palsy, no dysarthria Results & Data Vital Signs (Past 12 Hours) Vital Signs Temp Pulse Pulse Resp BP BP Pulse Ox 06/18/19 16:17 65 06/18/19 11:28 36.6 C 64 20 141/67 H 90 06/18/19 08:51 54 L 06/18/19 07:19 36.5 C 57 L 20 143/66 H 90 06/18/19 05:56 36.6 C 57 L 16 127/69 90 06/18/19 05:43 36.6 C 54 L 16 104/55 L 94 06/18/19 05:15 36.6 C 54 L 16 109/55 L 94 06/18/19 04:43 36.6 C 53 L 16 128/72 96 Laboratory Results Laboratory Results - last 24 hr 06/17/19 06/17/19 06/17/19 19:22 19:22 19:22 WBC 14.39 H RBC 3.04 L Hgb 7.6 L POC Hgb Hct 25.8 L POC Hct MCV 84.9 MCH 25.0 MCHC 29.5 L RDW Std Deviation 50.3 H RDW Coeff of Shadi 16.3 H Plt Count 350 MPV 9.4 Immature Gran % (Auto) 0.4 Neut % (Auto) 87.1 Lymph % (Auto) 7.2 [place] % (Auto) 4.2 Eos % (Auto) 1.0 Baso % (Auto) 0.1 Immature Gran # (Auto) 0.06 H Neut # (Auto) 12.52 H Lymph # (Auto) 1.04 L [place] # (Auto) 0.61 H Eos # (Auto) 0.14 Baso # (Auto) 0.02 Absolute Nucleated RBC 0.09 H Nucleated RBC % (auto) 0.7 Polychromasia 1+ Target Cells Ovalocytes 1+ PT 11.4 INR 1.1 APTT 26.7 PTT Ratio 1.0 VBG pH VBG pCO2 VBG pO2 VBG HCO3 VBG O2 Saturation VBG Base Excess Barometric Pressure POC Sodium Sodium 139 POC Potassium Potassium 5.2 H POC Chloride Chloride 105 Carbon Dioxide 24 POC Total CO2 Anion Gap 9.0 POC Anion Gap POC BUN BUN 56 H Creatinine 2.43 H POC Creatinine Est Cr Clr Drug Dosing 37.2 Est GFR ( Amer) 28.4 Est GFR (Non-Af Amer) 24.5 BUN/Creatinine Ratio 22.9 H Glucose 168 H POC Glucose POC Glucose (other) Calcium 8.3 L POC Ioniz Calcium Pepito Magnesium 2.8 H Total Bilirubin 0.4 AST 9 L ALT 10 L Alkaline Phosphatase 51 Troponin I < 0.015 NT-Pro-B Natriuret Pep 5517 H Total Protein 7.8 Albumin 3.0 L Globulin 4.8 H Albumin/Globulin Ratio 0.6 L TSH 2.360 Urine Color Urine Appearance Urine pH Ur Specific [place] Urine Protein Urine Glucose (UA) Urine Ketones Urine Blood Urine Nitrite Urine Bilirubin Urine Urobilinogen Ur Leukocyte Esterase Urine WBC (Auto) Urine RBC (Auto) U Hyaline Cast (Auto) U Epithel Cells (Auto) Urine Bacteria (Auto) Digoxin Blood Type Antibody Screen Crossmatch 06/17/19 06/17/19 06/17/19 19:22 19:33 19:45 WBC RBC Hgb POC Hgb 8.2 L Hct POC Hct 24 L MCV MCH MCHC RDW Std Deviation RDW Coeff of Shadi Plt Count MPV Immature Gran % (Auto) Neut % (Auto) Lymph % (Auto) [place] % (Auto) Eos % (Auto) Baso % (Auto) Immature Gran # (Auto) Neut # (Auto) Lymph # (Auto) [place] # (Auto) Eos # (Auto) Baso # (Auto) Absolute Nucleated RBC Nucleated RBC % (auto) Polychromasia Target Cells Ovalocytes PT INR APTT PTT Ratio VBG pH 7.35 L VBG pCO2 39 VBG pO2 25 VBG HCO3 21 VBG O2 Saturation < 60.0 VBG Base Excess -4.4 Barometric Pressure 734.8 POC Sodium 139 Sodium POC Potassium 5.2 H Potassium POC Chloride 105 Chloride Carbon Dioxide POC Total CO2 23 L Anion Gap POC Anion Gap 17.0 POC BUN 51 H BUN Creatinine POC Creatinine 2.3 H Est Cr Clr Drug Dosing Est GFR ( Amer) Est GFR (Non-Af Amer) BUN/Creatinine Ratio Glucose POC Glucose POC Glucose (other) 167 H Calcium POC Ioniz Calcium Pepito 1.07 L Magnesium Total Bilirubin AST ALT Alkaline Phosphatase Troponin I NT-Pro-B Natriuret Pep Total Protein Albumin Globulin Albumin/Globulin Ratio TSH Urine Color Urine Appearance Urine pH Ur Specific [place] Urine Protein Urine Glucose (UA) Urine Ketones Urine Blood Urine Nitrite Urine Bilirubin Urine Urobilinogen Ur Leukocyte Esterase Urine WBC (Auto) Urine RBC (Auto) U Hyaline Cast (Auto) U Epithel Cells (Auto) Urine Bacteria (Auto) Digoxin 1.8 Blood Type Antibody Screen Crossmatch 06/17/19 06/17/1919 19:45 22:36 02:18 WBC 12.09 H RBC 3.08 L Hgb 7.8 L POC Hgb Hct 26.3 L POC Hct MCV 85.4 MCH 25.3 MCHC 29.7 L RDW Std Deviation 50.2 H RDW Coeff of Shadi 16.2 H Plt Count 312 MPV 9.2 Immature Gran % (Auto) 0.4 Neut % (Auto) 79.9 Lymph % (Auto) 10.8 [place] % (Auto) 5.9 Eos % (Auto) 2.8 Baso % (Auto) 0.2 Immature Gran # (Auto) 0.05 H Neut # (Auto) 9.66 H Lymph # (Auto) 1.31 [place] # (Auto) 0.71 H Eos # (Auto) 0.34 Baso # (Auto) 0.02 Absolute Nucleated RBC 0.07 H Nucleated RBC % (auto) 0.6 Polychromasia 1+ Target Cells 1+ Ovalocytes PT INR APTT PTT Ratio VBG pH VBG pCO2 VBG pO2 VBG HCO3 VBG O2 Saturation VBG Base Excess Barometric Pressure POC Sodium Sodium POC Potassium Potassium POC Chloride Chloride Carbon Dioxide POC Total CO2 Anion Gap POC Anion Gap POC BUN BUN Creatinine POC Creatinine Est Cr Clr Drug Dosing Est GFR ( Amer) Est GFR (Non-Af Amer) BUN/Creatinine Ratio Glucose POC Glucose 216 H POC Glucose (other) Calcium POC Ioniz Calcium Pepito Magnesium Total Bilirubin AST ALT Alkaline Phosphatase Troponin I NT-Pro-B Natriuret Pep Total Protein Albumin Globulin Albumin/Globulin Ratio TSH Urine Color Urine Appearance Urine pH Ur Specific [place] Urine Protein Urine Glucose (UA) Urine Ketones Urine Blood Urine Nitrite Urine Bilirubin Urine Urobilinogen Ur Leukocyte Esterase Urine WBC (Auto) Urine RBC (Auto) U Hyaline Cast (Auto) U Epithel Cells (Auto) Urine Bacteria (Auto) Digoxin Blood Type A Positive Antibody Screen NEGATIVE Crossmatch See Detail 06/18/19 06/18/19 06/18/19 02:18 07:38 08:25 WBC RBC Hgb POC Hgb Hct POC Hct MCV MCH MCHC RDW Std Deviation RDW Coeff of Shadi Plt Count MPV Immature Gran % (Auto) Neut % (Auto) Lymph % (Auto) [place] % (Auto) Eos % (Auto) Baso % (Auto) Immature Gran # (Auto) Neut # (Auto) Lymph # (Auto) [place] # (Auto) Eos # (Auto) Baso # (Auto) Absolute Nucleated RBC Nucleated RBC % (auto) Polychromasia Target Cells Ovalocytes PT INR APTT PTT Ratio VBG pH VBG pCO2 VBG pO2 VBG HCO3 VBG O2 Saturation VBG Base Excess Barometric Pressure POC Sodium Sodium 138 POC Potassium Potassium 5.2 H POC Chloride Chloride 108 H Carbon Dioxide 25 POC Total CO2 Anion Gap 5.0 POC Anion Gap POC BUN BUN 55 H Creatinine 2.24 H POC Creatinine Est Cr Clr Drug Dosing 39.6 Est GFR ( Amer) 31.4 Est GFR (Non-Af Amer) 27.1 BUN/Creatinine Ratio 24.6 H Glucose 140 H POC Glucose 137 H POC Glucose (other) Calcium 7.9 L POC Ioniz Calcium Pepito Magnesium Total Bilirubin AST ALT Alkaline Phosphatase Troponin I NT-Pro-B Natriuret Pep Total Protein Albumin Globulin Albumin/Globulin Ratio TSH Urine Color Yellow Urine Appearance Cloudy A Urine pH 7.5 Ur Specific [place] 1.020 Urine Protein Trace H Urine Glucose (UA) Negative Urine Ketones Negative Urine Blood Trace H Urine Nitrite Positive A Urine Bilirubin Negative Urine Urobilinogen Negative Ur Leukocyte Esterase 3+ H Urine WBC (Auto) >30 H Urine RBC (Auto) 0-4 U Hyaline Cast (Auto) 1-5 U Epithel Cells (Auto) 0-5 Urine Bacteria (Auto) 4+ H Digoxin Blood Type Antibody Screen Crossmatch 06/18/19 06/18/19 06/18/19 10:33 10:33 11:38 WBC RBC Hgb 8.8 L POC Hgb Hct 29.1 L POC Hct MCV MCH MCHC RDW Std Deviation RDW Coeff of Shadi Plt Count MPV Immature Gran % (Auto) Neut % (Auto) Lymph % (Auto) [place] % (Auto) Eos % (Auto) Baso % (Auto) Immature Gran # (Auto) Neut # (Auto) Lymph # (Auto) [place] # (Auto) Eos # (Auto) Baso # (Auto) Absolute Nucleated RBC Nucleated RBC % (auto) Polychromasia Target Cells Ovalocytes PT INR APTT PTT Ratio VBG pH VBG pCO2 VBG pO2 VBG HCO3 VBG O2 Saturation VBG Base Excess Barometric Pressure POC Sodium Sodium 138 POC Potassium Potassium 4.8 POC Chloride Chloride 109 H Carbon Dioxide 24 POC Total CO2 Anion Gap 5.0 POC Anion Gap POC BUN BUN 49 H Creatinine 2.13 H POC Creatinine Est Cr Clr Drug Dosing 39.5 Est GFR ( Amer) 33.3 Est GFR (Non-Af Amer) 28.8 BUN/Creatinine Ratio 23.0 H Glucose 161 H POC Glucose 179 H POC Glucose (other) Calcium 8.0 L POC Ioniz Calcium Pepito Magnesium Total Bilirubin AST ALT Alkaline Phosphatase Troponin I NT-Pro-B Natriuret Pep Total Protein Albumin Globulin Albumin/Globulin Ratio TSH Urine Color Urine Appearance Urine pH Ur Specific [place] Urine Protein Urine Glucose (UA) Urine Ketones Urine Blood Urine Nitrite Urine Bilirubin Urine Urobilinogen Ur Leukocyte Esterase Urine WBC (Auto) Urine RBC (Auto) U Hyaline Cast (Auto) U Epithel Cells (Auto) Urine Bacteria (Auto) Digoxin Blood Type Antibody Screen Crossmatch
--- NOTE | 2019-06-18 19:42 | Hospitalist Progress Note ---
Date of Service June 18, 2019 Assessment & Plan (1) Symptomatic anemia: Hgb 7.6 at time of admission, compared to baseline of 13. Anemia secondary to acute + chronic blood loss from scrotal ulcer. Received 2 units pRBC's. Hgb this morning 8.8. Patient may require relatively high H/H due to cardiopulmonary disease. reports that he does better when Hgb > 10. Check repeat H/H in a.m. Transfuse as necessary. Continue oral Fe. (2) CIERRA (acute kidney injury): Serum creatinine at time of admission 2.43, compared to baseline of 1.09. Acute kidney injury, probably secondary to blood loss anemia + diuretics. Diuretics and losartan held. Creatinine today = 2.13. Follow. (3) Hyperkalemia: Serum K 5.2 at time of admission in setting of CIERRA. Losartan held. K today = 4.8. Follow. (4) Abnormal EKG: EKG demonstrated AF with [id number]'s. No chest pain. Seen in consultation by Cardiology. May have ischemia from severe anemia. Digoxin level 1.8. Possible digoxin effect- dig held. (5) Chronic diastolic CHF (congestive heart failure): Chronic left ventricular diastolic heart failure. Compensated. Diuretics held because of CIERRA. Follow. (6) Chronic a-fib: Rate controlled with metoprolol and digoxin. Digoxin being held. Not anticoagulated because of multiple bleeding complications in past. (7) Hypertension: Losartan on hold due to CIERRA. Continue metoprolol. Follow and titrate Rx. (8) Diabetes mellitus type 2 with complications: Usually managed with metformin and sitagliptin. Hgb A1C 8.1 04/10/19. Hold oral agents during hospital stay. Lantus / NovoLog per protocol. FBS today = 137. (9) JUAN MANUEL (obstructive sleep apnea): Does not tolerate CPAP or BiPAP. 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 Wound Care consulted. (11) Venous stasis ulcers of both lower extremities: Wound Care and ID consulted. Continue cephalexin. 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 (13) Urinary retention: Chronic Baires catheter. Management / changes per Urology (Dr. Zhang). (14) DVT prophylaxis: No anticoagulants due to chronic scrotal bleeding with severe anemia. SCD's ordered. Ambulate. (15) Discharge planning issues: Anticipated discharge to home. Family Medicine follow-up with Dr. Donte Szymanski. given update by phone this evening. Subjective Recheck for multiple problems. Patient seen in their room around 1900. Admitted last evening with anemia, acute kidney injury, and other problems. Received 2 units pRBC's. Feels better today. Review of Systems: Constitutional- no fever. Cardiac- no chest pain. Pulmonary- no cough or SOB. GI- no nausea, vomiting, diarrhea, melena, hematochezia. - chronic intermittent scrotal bleeding; chronic Baires cath. Otherwise, as noted above. Physical Exam Constitutional: no acute distress Respiratory: no respiratory distress Auscultation: lungs clear to auscultation bilaterally Cardiovascular: Rate/Rhythm: + irregularly irregular Heart Sounds: no gallop, no murmur and no cardiac rub Vessels: no JVD Extremities: + edema (trace pretibial edema with chronic venous stasis changes); no calf tenderness Gastrointestinal (Abdomen): normal bowel sounds, soft, nontender, no hep atosplenomegaly Skin: + rash (chronic venous stasis changes lower extremities) Psychiatric: Orientation: alert and oriented x 3 Results & Data Vital Signs (Past 12 Hours) Vital Signs Temp Pulse Pulse Resp BP Pulse Ox 06/18/19 16:17 65 06/18/19 11:28 36.6 C 64 20 141/67 H 90 06/18/19 08:51 54 L Laboratory Results 06/18/19 10:33 06/18/19 10:33 (1) Hypertension Hypertension type: unspecified Qualified Code(s): I10 - Essential (primary) hypertension
[2019-06-18] MEDS ORDERED: INSULIN GLARGINE SOLOSTAR 100 UNITS/ML 3 ML PEN SQ SCH (21:00)
[2019-06-18] MEDS: MICONAZOLE NITRATE POWDER 43 GM EXT PRN (21:37)
[2019-06-19] MEDS: HYDROCODONE/ACETAMOPHEN 5/325MG TAB PO PRN ×3 (03:24→16:59)
[2019-06-19 06:36] LABS: Hematocrit (blood only) 30.2 % (42-52); Hemoglobin 8.9 g/dL (14.0-18.0)
[2019-06-19 07:04] LABS: BUN Creatinine Ratio 23.8 (10-20); Calcium 8.3 mg/dl (8.5-10.1); Creatinine Clr Calc Pharmacy 45.6 ml/min; Est GFR (African American) 39.8; Est GFR (Non-African American) 34.3; Potassium 4.8 mmol/L (3.5-5.1)
[2019-06-19] MEDS: ACETAMINOPHEN 325 MG TAB PO PRN ×2 (07:39→16:21)
[2019-06-19] MEDS: cephALEXin 500 MG CAP PO SCH ×2 (07:40→20:36)
[2019-06-19] MEDS: levETIRAcetam 500 MG TAB PO SCH ×2 (07:41→20:36)
[2019-06-19] MEDS: PANTOprazole 40 MG TAB PO SCH ×2 (07:41→20:36)
[2019-06-19] MEDS: METOPROLOL SUCC 50MG EXT REL TAB PO SCH (07:41)
[2019-06-19] MEDS: FINASTERIDE 5 MG TAB PO SCH (07:41)
[2019-06-19] MEDS: FERROUS SULFATE 325 MG TAB PO SCH ×2 (07:41→16:21)
[2019-06-19] MEDS: INSULIN ASPART 100 UNITS/ML 3 ML PEN SC SCH ×4 (08:39→20:38)
[2019-06-19] MEDS: MICONAZOLE NITRATE POWDER 43 GM EXT PRN (10:31)
[2019-06-19] MEDS ORDERED: SODIUM CHLORIDE 0.9% 1000ML 1,000 ML IV ONE (12:45)
--- NOTE | 2019-06-19 13:18 | Cardiology Progress Note ---
Date of Service June 19, 2019 Assessment & Plan (1) Chronic a-fib: Patient is a chronically ill 78-year-old male underlying issues of right heart failure morbid obesity and hypoventilation. He has chronic atrial fibrillation, as below rates controlled. Anticoagulation contraindicated due to past bleeding issues Will hold aspirin EKG suggestive of dig effect Hold digoxin (2) Chronic diastolic CHF (congestive heart failure): Chronic ongoing issues secondary to right heart issues morbid obesity hypoventilation Would hold diuretics as already being done given acute renal insufficiency (3) CIERRA (acute kidney injury): Acute Diuretics on hold (4) Morbid obesity: (5) Obstructive sleep apnea: (6) Abnormal EKG: Suspicious for dig effect. Digoxin level on presentation 1.8 in the setting of acute renal insufficiency, renally excreted drug We will hold digoxin, atrial fibrillation rates adequately controlled on current dose of beta-john Continue to hold digoxin EKG improved today Subjective Patient seen and examined, chart, medications, telemetry reviewed. Patient notes he is feeling "better today". Renal function improving by laboratory study Telemetry reveals no profound pauses, baseline rhythm atrial fibrillation occasional episodes of accelerated junctional Physical Exam Physical Exam: Constitutional: + morbidly obese Eyes: PERRL, conjunctivae normal, anicteric sclerae ENMT: external ear and nose normal, oropharynx normal Neck: + thick neck Respiratory: Auscultation: + diminished lung sounds Cardiovascular: Rate/Rhythm: + irregularly irregular Heart Sounds: no murmur Vessels: no JVD Extremities: + edema (Chronic stasis changes bilateral lower extremities) Gastrointestinal (Abdomen): Percussion/Palpation: abdomen nontender Musculoskeletal: Head/Neck/Chest: normocephalic and head atraumatic Skin: + wound (Chronic ulcerations of lower extremities and scrotum) Neurologic: PERRL, EOMI, accommodation nl, no face palsy, no dysarthria Results & Data Vital Signs (Past 12 Hours) Vital Signs Temp Pulse Pulse Resp BP Pulse Ox 06/19/19 11:15 36.6 C 74 18 130/69 90 06/19/19 07:23 61 06/19/19 06:37 36.5 C 68 19 144/68 H 90 06/19/19 03:37 36.5 C 67 20 132/67 90 Laboratory Results Laboratory Results - last 24 hr 06/18/19 06/18/19 06/19/19 16:23 20:16 06:05 Hgb 8.9 L Hct 30.2 L Sodium Potassium Chloride Carbon Dioxide Anion Gap BUN Creatinine Est Cr Clr Drug Dosing Est GFR ( Amer) Est GFR (Non-Af Amer) BUN/Creatinine Ratio Glucose POC Glucose 129 H 184 H Calcium 06/19/19 06/19/19 06/19/19 06:05 07:32 11:26 Hgb Hct Sodium 138 Potassium 4.8 Chloride 110 H Carbon Dioxide 25 Anion Gap 3.0 BUN 44 H Creatinine 1.84 H Est Cr Clr Drug Dosing 45.6 Est GFR ( Amer) 39.8 Est GFR (Non-Af Amer) 34.3 BUN/Creatinine Ratio 23.8 H Glucose 137 H POC Glucose 150 H 192 H Calcium 8.3 L
--- NOTE | 2019-06-19 14:49 | Hospitalist Progress Note ---
Date of Service June 19, 2019 Assessment & Plan (1) Symptomatic anemia: Symptomatic anemia Anemia secondary to acute on chronic blood loss from scrotal wound/ulcer S/P 2 units PRBCs Hb:8.9 Monitor H&H Transfuse PRBCs as needed Continue oral Iron supplements Aspirin on hold PT/OT if patient agrees (2) CIERRA (acute kidney injury): CIERRA likely due to blood loss anemia and diuretics Gentle IV fluids as needed due to H/O CHF Hold losartan, diuretics Cr: 2.43>>1.84 Monitor renal function Avoid nephrotoxic agents as able (3) Hyperkalemia: Hypokalemia likely secondary to CIERRA Hold losartan for now Monitor electrolytes R/O UTI Has chronic Baires for urinary retention Urine Cx: Gram-negative bacilli On Keflex for chronic scrotal wound (4) Abnormal EKG: EKG likely due to digoxin effect in setting of CIERRA Digoxin level 1.8. Digoxin currently held Appreciate cardiology input Monitor EKG (5) Chronic diastolic CHF (congestive heart failure): Chronic diastolic heart failure. Diuretics held due to CIERRA. Monitor volume status (6) Chronic a-fib: Continue metoprolol Digoxin held for now No anticoagulation de to multiple bleeding complications (7) Hypertension: BP stable Losartan held due to CIERRA. Continue metoprolol. (8) Diabetes mellitus type 2 with complications: Was on Metformin and sitagliptin. Hgb A1C 8.1 04/10/19. Hold oral agents Continue Lantus / NovoLog while hospitalized (9) JUAN MANUEL (obstructive sleep apnea): Does not tolerate CPAP or BiPAP. 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 Follows with Urology-Dr. Zhang Continue finasteride (14) DVT prophylaxis: No anticoagulants due to chronic scrotal bleeding with severe anemia. SCD's (15) Discharge planning issues: PT/OT pior to discharge Family Medicine follow-up with Dr. Donte Szymanski. Subjective Patient is seen and examined at bedside Denies any scrotal pain Hemoglobin stable today Creatinine slowly improving Eager to get discharged Patient denies any chest pain, shortness of breath, dizziness, nausea, abdominal pain Urine culture pending Patient refused physical therapy earlier today Review of Systems Review of Systems: All systems reviewed & are unremarkable except as noted in HPI & below Physical Exam Physical Exam: Physical Exam: Vitals signs as noted above General Appearance:Obese, no apparent distress Head: normocephalic, Atraumatic Eyes: normal inspection, EOMI Neck: supple, Trachea midline Respiratory/Chest: Normal breath sounds, CTA Cardiovascular: Irregularly Irregular, No murmur Abdomen/GI:Soft, Non tender, Bowel sounds present : Scrotal swelling, + varicose veins, wound Extremities/Musculoskelatal:normal inspection, chronic venous stasis changes, trace pretibial edema Neurologic/Psych:AAOX3, grossly no focal neurological deficits Skin: normal color, warm Results & Data Vital Signs (Past 12 Hours) Vital Signs Temp Pulse Pulse Resp BP Pulse Ox 06/19/19 11:15 36.6 C 74 18 130/69 90 06/19/19 07:23 61 06/19/19 06:37 36.5 C 68 19 144/68 H 90 06/19/19 03:37 36.5 C 67 20 132/67 90 Laboratory Results Short CBC 06/19/19 Range/Units 06:05 Hgb 8.9 L (14.0-18.0) g/dL Hct 30.2 L (42-52) % BMP 06/19/19 06:05 Sodium 138 Potassium 4.8 Chloride 110 H Carbon Dioxide 25 BUN 44 H Creatinine 1.84 H Glucose 137 H Calcium 8.3 L (1) Hypertension Hypertension type: unspecified Qualified Code(s): I10 - Essential (primary) hypertension
[2019-06-19] MEDS ORDERED: INSULIN GLARGINE SOLOSTAR 100 UNITS/ML 3 ML PEN SQ SCH (21:00)
[2019-06-20] MEDS: HYDROCODONE/ACETAMOPHEN 5/325MG TAB PO PRN (00:40)
[2019-06-20] MEDS ORDERED: LORazepam 0.5 MG TAB PO STA (01:16)
[2019-06-20 06:59] LABS: Hematocrit (blood only) 30.5 % (42-52); Hemoglobin 8.9 g/dL (14.0-18.0)
[2019-06-20 07:31] LABS: BUN Creatinine Ratio 20.5 (10-20); Calcium 8.6 mg/dl (8.5-10.1); Creatinine Clr Calc Pharmacy 46.7 ml/min; Est GFR (African American) 40.1; Est GFR (Non-African American) 34.6; Potassium 4.5 mmol/L (3.5-5.1)
[2019-06-20] MEDS ORDERED: CIPROFLOXACIN 250 MG TAB PO SCH (09:00)
[2019-06-20] MEDS: INSULIN ASPART 100 UNITS/ML 3 ML PEN SC SCH ×3 (09:01→17:06)
[2019-06-20] MEDS: FERROUS SULFATE 325 MG TAB PO SCH ×2 (09:05→17:08)
[2019-06-20] MEDS: cephALEXin 500 MG CAP PO SCH (09:05)
[2019-06-20] MEDS: FINASTERIDE 5 MG TAB PO SCH (09:06)
[2019-06-20] MEDS: levETIRAcetam 500 MG TAB PO SCH (09:06)
[2019-06-20] MEDS: METOPROLOL SUCC 50MG EXT REL TAB PO SCH (09:06)
[2019-06-20] MEDS: PANTOprazole 40 MG TAB PO SCH (09:06)
--- NOTE | 2019-06-20 09:48 | Ultrasound Report ---
RENAL ULTRASOUND CLINICAL HISTORY: Acute kidney injury. COMPARISON STUDY: CT of the abdomen and pelvis December 28, 2018. TECHNIQUE: Sonography of the kidneys and the urinary bladder was performed. FINDINGS: This exam is compromised by suboptimal penetration. There is no hydronephrosis. A few anech oic right renal lesions reflect cysts. There is moderate renal cortical thinning. Baires balloon is pr esent within the bladder which is collapsed. IMPRESSION: 1. Technically difficult exam but no hydronephrosis identified. 2. Several right renal cyst.s 3. Moderate bilateral renal cortical thinning. ACT 112: Negative or not required by law. Electronically signed by: Aroldo Mahan M.D. 06/20/2019 9:47 AM
--- NOTE | 2019-06-20 10:17 | Cardiology Progress Note ---
Date of Service June 20, 2019 Assessment & Plan (1) Chronic a-fib: Patient is a chronically ill 78-year-old male underlying issues of right heart failure morbid obesity and hypoventilation. He has chronic atrial fibrillation, as below rates controlled. Anticoagulation contraindicated due to past bleeding issues No ongoing issues suggest indications for aspirin would continue to hold No further digoxin Will likely require diuretics reinstituted at a lower dose in the future (2) Chronic diastolic CHF (congestive heart failure): Chronic ongoing issues secondary to right heart issues morbid obesity hypoventilation Would hold diuretics as already being done given acute renal insufficiency Will likely need lower dose diuretics in future (3) CIERRA (acute kidney injury): Acute Diuretics on hold (4) Morbid obesity: (5) Obstructive sleep apnea: (6) Abnormal EKG: Suspicious for dig effect. Digoxin level on presentation 1.8 in the setting of acute renal insufficiency, renally excreted drug We will hold digoxin, atrial fibrillation rates adequately controlled on current dose of beta-john No further digoxin Subjective No acute complaints overnight Anxious to be discharged for family emergency No arrhythmias on telemetry rates controlled Physical Exam Constitutional: + morbidly obese Eyes: PERRL, conjunctivae normal, anicteric sclerae ENMT: external ear and nose normal, oropharynx normal Neck: + thick neck Respiratory: Auscultation: + diminished lung sounds Cardiovascular: Rate/Rhythm: + irregularly irregular Heart Sounds: no murmur Vessels: no JVD Extremities: + edema (Chronic stasis changes bilateral lower extremities) Gastrointestinal (Abdomen): Percussion/Palpation: abdomen nontender Musculoskeletal: Head/Neck/Chest: normocephalic and head atraumatic Skin: + wound (Chronic ulcerations of lower extremities and scrotum) Neurologic: PERRL, EOMI, accommodation nl, no face palsy, no dysarthria Results & Data Vital Signs (Past 12 Hours) Vital Signs Temp Pulse Pulse Resp BP BP Pulse Ox 06/20/19 07:28 37.3 C 82 16 109/62 93 06/20/19 05:38 64 06/20/19 04:32 36.6 C 93 H 20 138/64 92 06/20/19 01:44 36.5 C 71 19 155/60 H 89 L Laboratory Results Laboratory Results - last 24 hr 06/19/19 06/19/19 06/19/19 11:26 16:38 20:29 Hgb Hct Sodium Potassium Chloride Carbon Dioxide Anion Gap BUN Creatinine Est Cr Clr Drug Dosing Est GFR ( Amer) Est GFR (Non-Af Amer) BUN/Creatinine Ratio Glucose POC Glucose 192 H 147 H 218 H Calcium 06/20/19 06/20/19 06/20/19 06:21 06:21 07:38 Hgb 8.9 L Hct 30.5 L Sodium 138 Potassium 4.5 Chloride 109 H Carbon Dioxide 23 Anion Gap 6.0 BUN 38 H Creatinine 1.83 H Est Cr Clr Drug Dosing 46.7 Est GFR ( Amer) 40.1 Est GFR (Non-Af Amer) 34.6 BUN/Creatinine Ratio 20.5 H Glucose 165 H POC Glucose 184 H Calcium 8.6
--- NOTE | 2019-06-20 12:56 | Hospitalist Progress Note ---
Date of Service June 20, 2019 Assessment & Plan (1) Symptomatic anemia: Symptomatic anemia Anemia secondary to acute on chronic blood loss from scrotal wound/ulcer S/P 2 units PRBCs Hb:8.9 Monitor H&H Transfuse PRBCs as needed Continue oral Iron supplements Plan to discontinue aspirin--given history of ongoing bleeding issues (Discussed with Cardiology as well) Continue PT/OT (2) CIERRA (acute kidney injury): CIERRA likely due to blood loss anemia and diuretics Renal USD: Technically difficult exam but no hydronephrosis identified. Several right renal cysts. Moderate bilateral renal cortical thinning. Received IV fluids Hold losartan, diuretics Cr: 2.43>>1.83 Need to decrease diuretic dose upon discharge Monitor renal function Avoid nephrotoxic agents as able (3) Hyperkalemia: Hypokalemia likely secondary to CIERRA Hold losartan for now Monitor electrolytes Complicated UTI: UTI likely due to chronic patiño catheter H/O Chronic Urinary retention Urine Cx: Morganella Started on Ciprofloxacin Day #17 (4) Abnormal EKG: EKG likely due to digoxin effect in setting of CIERRA Digoxin level 1.8. digoxin currently held Plan to discontinue digoxin upon discharge as well--OK with Cardiology Appreciate cardiology input Monitor EKG (5) Chronic diastolic CHF (congestive heart failure): Chronic diastolic heart failure. Diuretics held due to CIERRA. Monitor volume status (6) Chronic a-fib: Continue metoprolol Digoxin discontinued No anticoagulation de to multiple bleeding complications (7) Hypertension: BP stable Losartan held due to CIERRA. Continue metoprolol. (8) Diabetes mellitus type 2 with complications: Was on Metformin and sitagliptin at home Hgb A1C 8.1 04/10/19. Hold oral agents Continue Lantus / NovoLog while hospitalized (9) JUAN MANUEL (obstructive sleep apnea): Does not tolerate CPAP or BiPAP. 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 Follows with Urology-Dr. Zhang Continue finasteride (14) DVT prophylaxis: No anticoagulants due to chronic scrotal bleeding with severe anemia. SCD's (15) Discharge planning issues: PT/OT pior to discharge Family Medicine follow-up with Dr. Donte Szymanski. Subjective Patient is seen and examined at bedside Sitting in chair comfortably this morning States feeling well No new complaints Discussed with cardiology and nephrology today Hemoglobin stable No significant improvement of renal function Eager to get discharged Patient denies any chest pain, shortness of breath, dizziness, nausea, abdominal pain, dysuria Review of Systems Review of Systems: All systems reviewed & are unremarkable except as noted in HPI & below Physical Exam Physical Exam: Physical Exam: Vitals signs as noted above General Appearance:Obese, no apparent distress Head: normocephalic, Atraumatic Eyes: normal inspection, EOMI Neck: supple, Trachea midline Respiratory/Chest: Normal breath sounds, CTA Cardiovascular: Irregularly Irregular, No murmur Abdomen/GI:Soft, Non tender, Bowel sounds present : Scrotal swelling, + varicose veins, wound Extremities/Musculoskelatal:normal inspection, chronic venous stasis changes, trace pretibial edema Neurologic/Psych:AAOX3, grossly no focal neurological deficits Skin: normal color, warm Results & Data Vital Signs (Past 12 Hours) Vital Signs Temp Pulse Pulse Resp BP BP Pulse Ox 06/20/19 11:29 37.3 C 76 16 144/70 H 91 06/20/19 08:00 79 06/20/19 07:28 37.3 C 82 16 109/62 93 06/20/19 05:38 64 06/20/19 04:32 36.6 C 93 H 20 138/64 92 06/20/19 01:44 36.5 C 71 19 155/60 H 89 L Laboratory Results Short CBC 06/20/19 Range/Units 06:21 Hgb 8.9 L (14.0-18.0) g/dL Hct 30.5 L (42-52) % BMP 06/20/19 06:21 Sodium 138 Potassium 4.5 Chloride 109 H Carbon Dioxide 23 BUN 38 H Creatinine 1.83 H Glucose 165 H Calcium 8.6 (1) Hypertension Hypertension type: unspecified Qualified Code(s): I10 - Essential (primary) hypertension
--- NOTE | 2019-06-20 13:33 | Nephrology Consultation ---
Date of Consultation June 20, 2019 Assessment & Plan (1) CIERRA (acute kidney injury): baseline creatinine 1.2-1.4; remains above baseline though some improvement since 06/17 admission; plateau'd past 2 days. 06/18 urine cx w/ morganella; UA same day probably c/w infection though this would be very challenging to dx w/ chronic patiño -daily bmp -not unreasonable to resume diuretics when clinically appropriate and certainly at d/c >> pt had been on torsemide 40 mg daily w/ additional 20 mg prn wt gain as well as 10 mEq daily K -- recommend restart at 20 mg w/ second dose prn swelling today or tomorrow -bmp q monday x 4 checks << pls ask d/c partner integration planner to order under my name -would resume shireen 10 mEq K when diuretics resumed -f/u in CKD clinic w/ any provider next 4 -6 wks [place] -cont to hold losartan -on very low dose metformin > not unreasonable to continue as OP for now; would need alternative agent from pcp if renal function worsens again Present on Admission?: Yes (2) Chronic indwelling Patiño catheter: defer to primary service and inf dzs whether he needs abtx; not currently on these and would avoid if possible Present on Admission?: Yes (3) Symptomatic anemia: p/w hgb 7.6; had 2 units pRBC; hgb is 8.9 stable past 3 days -monitor as OP w/ PCP -could consider HIREN at f/u in CKD clinic if appropriate -stopped ASA Present on Admission?: Yes History of Present Illness Reason for Consultation: CIERRA Requesting Physician: Dr Machado Attending Physician: Dhiraj Machado MD History of Present Illness 78 y/o M whom I'm asked to see for CIERRA after he was admitted here 06/17 for multifactorial generalized weakness from anemia and w/ CIERRA on CKD w/ presenting creatinine 2.4: hgb at cardiology clinic had been 7.5, creat 2.3 same day. His baseline creatinine is 1.2-1.4 March - May 2019. 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 Admitted [facility] 03/2019 for acute on chronic diastolic HF, Allergies Allergy/AdvReac Type Severity Reaction Status Date / Time metronidazole Allergy Severe see below Verified 06/17/19 20:11 amoxicillin Allergy Intermediate rash Verified 06/17/19 20:11 Home Medications Home Medications Medication Instructions Recorded Confirmed Type aspirin 81 mg PO DAILY 06/16/18 06/17/19 History digoxin 125 mcg PO DAILY 06/16/18 06/17/19 History ferrous sulfate 325 mg PO BID 06/16/18 06/17/19 History finasteride 5 mg PO DAILY 06/16/18 06/17/19 History losartan 50 mg PO DAILY 06/16/18 06/17/19 History metformin 500 mg PO QAM 06/16/18 06/17/19 History metoprolol succinate 200 mg PO DAILY 06/16/18 06/17/19 History pantoprazole 40 mg PO BID 06/16/18 06/17/19 History levetiracetam 500 mg PO BID 03/16/19 06/17/19 History Lactobacillus acidophilus 1 tab PO BID 06/17/19 06/17/19 History cephalexin 500 mg PO BID 06/17/19 06/17/19 History hydrocodone-acetaminophen 1 tab PO BID PRN 06/17/19 06/17/19 History potassium chloride 10 meq PO DAILY 06/17/19 06/17/19 History sitagliptin [Januvia] 50 mg PO DAILY 06/17/19 06/17/19 History torsemide See Rx Instructions .ROUTE .COMPLEX 06/17/19 06/17/19 History Patient History Medical History Acquired buried penis (Chronic) Acquired claw toe of left foot (Acute) Acquired claw toe of right foot (Acute) Acute diastolic (congestive) heart failure Acute renal insufficiency (Acute) Acute urinary retention (Acute) CIERRA (acute kidney injury) Atrial fibrillation with RVR (Acute) Barretts esophagus Benign hypertension (Chronic) Bilateral swelling of feet (Acute) BPH without urinary obstruction (Chronic) Callus (Acute) Chronic a-fib Chronic diastolic CHF (congestive heart failure) (Chronic) Chronic diastolic CHF (congestive heart failure) (Chronic) Chronic indwelling Patiño catheter (Chronic) Chronic venous insufficiency (Chronic) Complicated UTI (urinary tract infection) (Acute) Diabetes (Chronic) 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 (Acute) 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, with fat layer exposed (Acute) Diverticulosis of colon (without mention of hemorrhage) (Chronic) DM (diabetes mellitus), type 2, uncontrolled w/ophthalmic complication (Chronic) DVT prophylaxis DVT prophylaxis Esophageal candidiasis (Acute) Exertional dyspnea (Chronic) Gastric ulcer with hemorrhage (Chronic) Gastric ulcer with hemorrhage but without obstruction (Chronic) H/O Clostridium difficile infection (Chronic) Hemangioma of skin (Chronic) History of chronic atrial fibrillation (Chronic) Hypertension Hypoxia ICH (intracerebral hemorrhage) (Chronic) Leukocytosis Morbid obesity (Acute) Morbid obesity (Chronic) Open wound of scrotum JUAN MANUEL (obstructive sleep apnea) (Chronic) Peripheral arterial disease Rhabdomyolysis (Acute) Scrotal varicose veins (Chronic) Sepsis (Chronic) Severe sepsis Skin ulcer of left foot including toes (Acute) Symptomatic anemia (Chronic) Ulcer of scrotum (Chronic) Urinary retention (Chronic) Surgical History History of total replacement of right hip (Chronic) S/P cholecystectomy (Chronic) S/P tonsillectomy and adenoidectomy (Chronic) Family History Other No significant family history Social History Preferred Language: Peruvian 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 Ability: Effective Installer Helper Required: No Beliefs That Will Affect Care: None marital status: Current Living Situation: Spouse Current Living Situation Comment: Home with spouse Other Information That Helps Us Care for You: No Feels Safe at Home: Yes Safety Concerns: Feels Safe At This Time Smoking Status: Former smoker Second Hand Exposure: No ; Hx Alcohol Use: No Hx Substance Use: No Review of Systems Review of Systems: All systems reviewed & are unremarkable except as noted in HPI & below Respiratory: no cough and no dyspnea Cardiovascular: + edema (controlled); no chest pain and no palpitations Gastrointestinal: no abdominal pain, no early satiety, no vomiting, no change in bowel habits and no diarrhea/loose stools Integumentary: + non-healing lesions (scrotal; stable per pt) Hematologic / Lymphatic: + easy bleeding Physical Exam Constitutional: well developed, well nourished and + morbidly obese; no acute distress (up in chair on RA w/ empty breakfast tray) Eyes: EOM intact bilaterally ENMT: Ears: no external ear abnormality Nose: no external nose abnormality Mouth: + dry oral mucous membranes Neck: no nuchal rigidity Respiratory: normal respiratory effort Auscultation: lungs clear to auscultation bilaterally and + diminished lung sounds Cardiovascular: Rate/Rhythm: + irregularly irregular Extremities: + edema (trace ble indurated) Gastrointestinal (Abdomen): Inspection/Auscultation: normal bowel sounds Percussion/Palpation: abdomen soft; abdomen nontender Musculoskeletal: Extremities: strength 5/5 throughout Skin: no rashes, warm and dry + lesion (scrotal no texamined) Neurologic: pantoja, fluent speech, no tremor Psychiatric: A+Ox3, euthymic affect Genitourinary: patiño w/ ample urine yellow Results & Data Vital Signs (Past 12 Hours) Vital Signs Temp Pulse Pulse Resp BP BP Pulse Ox 06/20/19 11:29 37.3 C 76 16 144/70 H 91 06/20/19 08:00 79 06/20/19 07:28 37.3 C 82 16 109/62 93 06/20/19 05:38 64 06/20/19 04:32 36.6 C 93 H 20 138/64 92 06/20/19 01:44 36.5 C 71 19 155/60 H 89 L Laboratory Results 06/20/19 06:21 06/20/19 06:21 Diagnostic Findings admission cxr no acute cp process renal u/s today > technically difficult; several R renal cytss and moderate renal BL cortical thinning. no stones, mass, obstruction seen
[2019-06-20 15:54] VITALS: TEMP 98.1; O2SAT 95
--- NOTE | 2019-06-20 16:28 | Discharge Summary ---
Date of Service June 20, 2019 Admission HPI Per Admitting Provider History obtained from patient, family, and records. 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 During confinement chronic scrotal wounds would bleed from time to time. Hemoglobin stable after stopping Lovenox DVT prophylaxis. 2 weeks history of generalized weakness. Some shortness of breath on exertion without chest pain. Weight gain of about 5 pounds the last 2 weeks as per home scale. Compliant with home meds. Usual bleeding from scrotal ulcers as per patient. Patient seen at [facility] mold washer's office this morning. Outpatient blood work ordered. Hemoglobin noted to be 7.5, serum creatinine noted to be 2.3. Patient instructed by mold washer to go to the emergency room. 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 Admission Exam Per Admitting Provider GENERAL: uncomfortable, morbidly obese, slightly hard of hearing, no respiratory distress SKIN: Pallor , warm HEENT: Pale palpebral conjunctivae, no ptosis, dry buccal mucosa NECK : Supple, short, no tenderness CHEST : Decreased breath sounds , no tenderness HEART : irregular, systolic murmur ABDOMEN: distention, nontender : Patiño cath in place, scrotal swelling with ulcerations with dried blood, no purulent drainage EXTREMITIES : Chronic LE venous stasis, dressing noted on some areas of the lower extremities, minimal LE tenderness NEUROLOGIC : Coherent, no facial asymmetry, mild hearing impairment, no other gross focality Principal Diagnosis Symptomatic anemia Acute kidney injury Hyperkalemia Complicated urinary tract infection Discharge Data Allergies Allergy/AdvReac Type Severity Reaction Status Date / Time metronidazole Allergy Severe see below Verified 06/17/19 20:11 amoxicillin Allergy Intermediate rash Verified 06/17/19 20:11 Consultations 12/16/19 19:28 ED Decision to Admit Stat 06/17/19 21:04 Consult Cardiology Routine Consult Infectious Diseases Routine Consult Wound Care Provider Routine 06/20/19 07:50 Consult Nephrology Routine Procedures Performed CXR: Cardiomegaly. No other convincing evidence of acute cardiopulmonary disease. Renal USD: 1. Technically difficult exam but no hydronephrosis identified. 2. Several right renal cyst.s 3. Moderate bilateral renal cortical thinning. Ordered Studies 06/20/19 07:51 US renal/blad retro comp Routine Hospital Course (1) Symptomatic anemia: Symptomatic anemia Anemia secondary to acute on chronic blood loss from scrotal wound/ulcer S/P 2 units PRBCs Hb:8.9 Monitor H&H Transfuse PRBCs as needed Continue oral Iron supplements Plan to discontinue aspirin--given history of ongoing bleeding issues (Discussed with Cardiology as well) Continue PT/OT (2) CIERRA (acute kidney injury): CIERRA likely due to blood loss anemia and diuretics Renal USD: Technically difficult exam but no hydronephrosis identified. Several right renal cysts. Moderate bilateral renal cortical thinning. Received IV fluids Held losartan, diuretics during hospitalization Cr: 2.43>>1.83 Need to decrease diuretic dose upon discharge--plan to decrease torsemide to 20 mg daily(from 40 mg) and 20 mg as needed as per nephrology recommendations Plan to hold losartan upon discharge for now until renal function improves Monitor renal function Avoid nephrotoxic agents as able Appreciate nephrology input (3) Hyperkalemia: Hypokalemia likely secondary to CIERRA Hold losartan for now Monitor electrolytes Complicated UTI: UTI likely due to chronic patiño catheter H/O Chronic Urinary retention Urine Cx: Morganella Started on Ciprofloxacin Day #1 (4) Abnormal EKG: EKG likely due to digoxin effect in setting of CIERRA Digoxin level 1.8. digoxin currently held Plan to discontinue digoxin upon discharge as well--OK with Cardiology Appreciate cardiology input Monitor EKG (5) Chronic diastolic CHF (congestive heart failure): Chronic diastolic heart failure. Diuretics held due to CIERRA. Monitor volume status (6) Chronic a-fib: Continue metoprolol Digoxin discontinued No anticoagulation de to multiple bleeding complications (7) Hypertension: BP stable Losartan held due to CIERRA. Continue metoprolol. (8) Diabetes mellitus type 2 with complications: Was on Metformin and sitagliptin at home Hgb A1C 8.1 04/10/19. Hold oral agents Continue Lantus / NovoLog while hospitalized (9) JUAN MANUEL (obstructive sleep apnea): Does not tolerate CPAP or BiPAP. 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 Follows with Urology-Dr. Zhang Continue finasteride (14) DVT prophylaxis: No anticoagulants due to chronic scrotal bleeding with severe anemia. SCD's (15) Discharge planning issues: PT/OT pior to discharge Family Medicine follow-up with Dr. Donte Szymanski. Total Time Total Time Spent Total Time Spent (In Minutes): 45 minutes Total Time Includes: Examination of the Patient, Discharge Planning, Medication Reconciliation, 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 With Other Providers and Other Discharge Plan Discharge Items Patient Disposition: Home - Home Health Services Reason For Visit: ARF, SYMPTOMATIC ANEMIA Discharge Diagnosis: Symptomatic anemia Acute kidney injury Hyperkalemia Complicated urinary tract infection Activity: Resume your previous activity Exercise/Sports: Gradually increase as tolerated Non-emergency contact: Primary Care Provider, Lens Cleaner, Streetcar Repairer Helper and Urologist Call non-emergency contact if: you have any medication questions, your symptoms worsen, your pain is not controlled, your pain is worsening, your pain is unusual for you, your pain is concerning for you and you have a fever Follow-up/Referrals: Donte Szymanski, DO [Primary Care Provider] - Diet: Carb Consistent or DM2 and Heart Healthy Ambulatory Orders: Complete Blood Count no Diff (Q7D) Timeframe: 20190624 Location: Determined by Patient Ordered By: Dhiraj Machado Basic Metabolic Panel (Q7D) Timeframe: 20190624 Location: Determined by Patient Ordered By: Dhiraj Machado Add Attending Provider Instructions: Follow-up with your primary care physician Dr. Sparrow on June 24, 2019 at 1:20 PM Follow-up with your bridge design engineer Dr. Taya Jacobson on July 23, 2018 at 9:40 AM at [facility] Follow-up with your urologist Dr. Zhang for Patiño catheter change--- as you have a urinary tract infection. Office will call you with appointment Follow-up with your mold washer Dr. Harrington. Office will call you with appointment Follow-up with your infectious disease DrYulissa Stewart at wound clinic as advised Complete the antibiotic course--ciprofloxacin for urinary tract infection Medication Changes: STOP taking Aspirin STOP taking Digoxin DO NOT TAKE Losartan until your renal function Improves. Follow up with your Primary Care Physician for further recommendations Your Torsemide dose is decreased to 20 mg daily and 20 mg as needed for swelling/weight gain Get blood work (basic metabolic panel and complete blood count) weekly for 4 weeks. Follow-up with your primary care physician with results for further recommendations. Seek immediate medical attention if your symptoms reoccur or worsen Pending Studies at Discharge: No Stand-Alone Forms: My [facility] [employer], Smoking Cessation Medications and DC Order Prescriptions: New ciprofloxacin HCl 250 mg Tablet 250 mg PO Q12 Qty: 13 RF: 0 Continued metformin 500 mg Tablet 500 mg PO QAM RF: 0 metoprolol succinate 200 mg tablet extended release 24 hr 200 mg PO DAILY RF: 0 pantoprazole 40 mg Tablet,Delayed Release (Dr/Ec) 40 mg PO BID RF: 0 ferrous sulfate 325 mg (65 mg iron) Tablet 325 mg PO BID RF: 0 finasteride 5 mg tablet 5 mg PO DAILY RF: 0 levetiracetam 500 mg Tablet 500 mg PO BID RF: 0 hydrocodone-acetaminophen 5-325 mg tablet 1 tab PO BID PRN (Reason: Pain, Moderate) RF: 0 Lactobacillus acidophilus Tablet,Chewable 1 tab PO BID RF: 0 potassium chloride 10 mEq tablet,ER particles/crystals 10 meq PO DAILY RF: 0 Januvia 50 mg tablet 50 mg PO DAILY RF: 0 cephalexin 500 mg capsule 500 mg PO BID RF: 0 Changed torsemide 20 mg tablet See Rx Instructions .ROUTE .COMPLEX Qty: 0 RF: 0 Discontinued aspirin 81 mg Tablet,Delayed Release (Dr/Ec) 81 mg PO DAILY RF: 0 digoxin 125 mcg tablet 125 mcg PO DAILY RF: 0 losartan 50 mg tablet 50 mg PO DAILY RF: 0 Discharge Orders: Discharge Order (Routine); Ordered 06/20/19 Ordered By: Dhiraj Machado Admission Data Admit Date/Time: 06/17/19 20:17 Attending Provider: Dhiraj Machado Admit Provider: Carlos Boyce Primary Care Provider: Donte Szymanski Other Providers: Carlos Boyce ; Parihs Lopez ; Priscilla Stewart ; Aliza Willett ; Taya Ortega ; [facility] Other Interventions: Discharge Summary Assessment (RN) Last Done: 06/20/19 16:43 DC Date/Time DO NOT enter until pt leaves facility: 06/20/19 17:40
[2019-06-20 16:44] VITALS: BP 138/64; PULSE 66
== END 2019-06-20 17:40 | disposition home health service (06) | DRG 683 ==
LOC: ED 18:54 → SUATTDRO 20:17 → 2N 20:17

== ENCOUNTER 2019-11-10 09:57 | Inpatient (IN) ==
[2019-11-10] MEDS ORDERED: SODIUM CHLORIDE 0.9% 1000ML 1,000 ML IV ONE (10:05)
--- NOTE | 2019-11-10 10:19 | Emergency Department Note ---
Impression & Plan Sepsis, Atrial fibrillation with RVR, Urinary tract infection, Elevated troponin, Leukocytosis, Acquired buried penis, Scrotal varicose veins ED Provider Note NAME: CUAUHTEMOC LOUIS AGE: 79 SEX: M ARRIVES VIA: Ambulance INFORMANT: Patient, ED PROVIDER(S): Christiano Tsai MD CHIEF COMPLAINT: Generalized weakness. 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 The patient is limited mobility chronically secondary to his morbid obesity and usually is able to stand with assistance of equipment such as his lift chair and pivot. However, upon arrival of EMS crew they did note that the patient felt warm and was feverish though without objective fever, noted A. fib with RVR to the 170s and so convince the patient to come to the hospital for evaluation. Upon, arrival patient did receive approximately 700 cc of normal saline and was given 15 mg of IV diltiazem which I recommended via med command conversation. On arrival the patient is ill-appearing, afebrile with heart rate in the 120s in atrial fibrillation and vital signs otherwise stable. On exam the patient is slightly diaphoretic and warm, nontender abdomen and indwelling catheter to bu ried penis within the patient's pannus with chronic scrotal malformation appreciated with some area of excoriation with scant bloody ooze without gross hemorrhage. WBC 21K,/H and platelets within normal limits. VBG unremarkable. lactate 3.6 but Chemistry without metabolic acidosis. Creatinine 1.8 in patient's recent baseline range. Her lites unremarkable. LFTs are acutely elevated with total bilirubin 2.7, direct bilirubin of 1.6 and AST and ALT 134 and 80, respectively. Alk phos is 173. Troponin is elevated at 1.33 related to demand in the setting of the patient's septic presentation. BNP 4600 similar to prior values but on the lower end. Patient's weight today is somewhat mid to lower range for the patient. Procalcitonin is 6.3 further raising suspicion for sepsis given the patient's fever and leukocytosis. Patient was treated empirically with cefepime and vancomycin per prior culture review. We will also order a CT of the pelvis to further clarify the patient's presumed urosepsis. However, patient is agreeable for admission. Case was discussed with Dr. Daly, [facility], who will evaluate the patient for admission. COVID-19 ordered given the patient's sepsis and is pending. CT head negative for acute process. CT the abdomen pelvis also without acute process. The patient was also ordered for diltiazem drip for additional gradual rate control in the setting of the patient's sepsis. Triage Nursing notes reviewed and agree them. Additional history obtained from [facility] records. Prior medical records reviewed Vital Signs: reviewed and remarkable for no significant abnormalities Differential diagnosis: Sepsis, UTI, pneumonia, metabolic, electrolyte abnormalities, cardiac sources, intracerebral event, toxicologic, neurologic, as well as other pathologies. ER treatment provided: See below. Diagnostics interpreted by me: ECG: Atrial fibrillation with RVR, 126 BPM, right ventricular hypertrophy, nonspecific ST abnormality, no overt ST elevation or depression, QTC 506, QRS 90. Cardiac Monitoring: An order for continuous cardiac monitoring was placed and demonstrated atrial fibrillation with RVR, 126, no ectopy. Laboratory studies: See below Imaging studies: See below Consultation(s): [facility], who will evaluate the patient for admission. 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 The patient is limited mobility chronically secondary to his morbid obesity and usually is able to stand with assistance of equipment such as his lift chair and pivot. However, upon arrival of EMS crew they did note that the patient felt warm and was feverish though without objective fever, noted A. fib with RVR to the 170s and so convince the patient to come to the hospital for evaluation. ROS: See above HPI for pertinent positives & negatives. A total of 10 systems reviewed and were otherwise negative. PAST MEDICAL HISTORY:See Below PAST SURGICAL HISTORY:See Below FAMILY HISTORY:See Below SOCIAL HISTORY:See Below HOME MEDICATIONS:See Below ALLERGIES:See Below VITALS:See Below PHYSICAL EXAMINATION: GENERAL: Awake, alert, ill-appearing, in no distress, morbidly obese. HENT: Normocephalic, atraumatic. Oropharynx with dry mucous membranes and otherwise unremarkable. EYES: Normal conjunctiva. Sclera non-icteric. NECK: Supple. No nuchal rigidity. FROM. No JVD. RESPIRATORY: Clear to auscultation. CARDIAC: Tachycardic rate, irregular rhythm. Extremities warm and well perfused. Pulses equal. ABDOMEN: Soft, non-distended. No tenderness to palpation. No rebound or guarding. No masses. Indwelling Patiño catheter site in the region of the patient's buried penis within pannus is without evidence of infection. RECTAL: Deferred. : Patient's scrotum and perineum shows chronic scrotal malformation with some area of excoriation with scant bloody ooze without gross hemorrhage. No crepitus. MUSCULOSKELETAL: Chest examination reveals no tenderness. The back is symmetrical on inspection without obvious abnormality. There is no CVA tenderness to palpation. No joint edema. LOWER EXTREMITIES: Calves are equal size bilaterally and non-tender. Scant bilateral lower extremity edema. No discoloration. NEURO: Normal sensorium. No sensory or motor deficits noted. SKIN: No rash or jaundice noted. ED COURSE: Critical Care: I have personally spent greater than 95 minutes of critical care time in the d irect management of this patient. This includes bedside care, interpretation of diagnostic studies, and testing, discussion with consultants, patient, and family members, and other required patient management activities. This 95 minutes is in excess of all separately billable procedures. Christiano Tsai MD Past Med/Surg History Medical History Acquired buried penis (Chronic) Acquired claw toe of right foot (Acute) Acute urinary retention (Acute) Atrial fibrillation with RVR (Acute) Barretts esophagus Benign hypertension (Chronic) BPH without urinary obstruction (Chronic) Callus (Acute) Chronic a-fib Chronic diastolic CHF (congestive heart failure) (Chronic) Chronic indwelling Patiño catheter (Chronic) Chronic venous insufficiency (Chronic) Complicated UTI (urinary tract infection) (Acute) Diabetes mellitus with diabetic polyneuropathy (Acute) 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, with fat layer exposed (Acute) Diverticulosis of colon (without mention of hemorrhage) (Chronic) DM (diabetes mellitus), type 2, uncontrolled w/ophthalmic complication (Chronic) Esophageal candidiasis (Acute) Exertional dyspnea (Chronic) Gastric ulcer with hemorrhage but without obstruction (Chronic) H/O Clostridium difficile infection (Chronic) Hemangioma of skin (Chronic) History of chronic atrial fibrillation (Chronic) Hypertension Hypoxia ICH (intracerebral hemorrhage) (Chronic) Morbid obesity (Chronic) Open wound of scrotum JUAN MANUEL (obstructive sleep apnea) (Chronic) Peripheral arterial disease Rhabdomyolysis (Acute) Scrotal varicose veins (Chronic) Skin ulcer of left foot including toes (Acute) Symptomatic anemia (Chronic) Urinary retention (Chronic) Surgical History History of total replacement of right hip (Chronic) S/P cholecystectomy (Chronic) S/P tonsillectomy and adenoidectomy (Chronic) Family History Other No significant family history Social History Preferred Language: Korean 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 Ability: Effective 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 Beliefs That Will Affect Care: None marital status: Current Living Situation: Spouse Current Living Situation Comment: Home with spouse Other Information That Helps Us Care for You: No Feels Safe at Home: Yes Safety Concerns: Feels Safe At This Time Smoking Status: Former smoker Do You Dip or Chew Tobacco: No ; Second Hand Ex posure: No ; Tobacco Cessation Education Requested by Patient: No Hx Alcohol Use: No Hx Substance Use: No Allergies Allergies Allergy/AdvReac Type Severity Reaction Status Date / Time metronidazole Allergy Severe see below Verified 11/10/19 10:21 amoxicillin Allergy Intermediate rash Verified 11/10/19 10:21 Home Meds Home Medications Medication Instructions Recorded Confirmed ferrous sulfate 325 mg PO BID 06/16/18 11/10/19 finasteride 5 mg PO DAILY 06/16/18 11/10/19 metformin 500 mg PO QAM 06/16/18 11/10/19 metoprolol succinate 200 mg PO DAILY 06/16/18 11/10/19 pantoprazole 40 mg PO BID 06/16/18 11/10/19 levetiracetam 500 mg PO BID 03/16/19 11/10/19 Januvia 50 mg PO DAILY 06/17/19 11/10/19 Lactobacillus acidophilus 1 tab PO BID 06/17/19 11/10/19 hydrocodone-acetaminophen 1 tab PO Q8H PRN 06/17/19 11/10/19 potassium chloride 10 meq PO DAILY 06/17/19 11/10/19 aspirin [Aspirin Low Dose] 81 mg PO DAILY 11/10/19 11/10/19 torsemide 40 mg PO DAILY PRN 11/10/19 11/10/19 Results & Data (ED) Vital Signs Vital Signs - 24 hr 11/10/19 10:03 11/10/19 10:07 11/10/19 10:12 Temperature Temperature Source Pulse Rate 124 H 136 H 123 H Pulse Rate from SpO2 Sensor 131 H 136 H 125 H Respiratory Rate 26 H 28 H 25 H Respiratory Effort / Characteristics Respiratory Depth Respiratory Pattern Blood Pressure 175/163 H 86/54 L Blood Pressure Mean 168 60 Pulse Oximetry 88 L 90 92 Oxygen Delivery Method Nasal Cannula Nasal Cannula Oxygen Flow Rate 2 2 Sepsis Recent Fever Within 48 Hours Sepsis New/Unexplained Change in Mental Status Sepsis Action Taken by Nursing 11/10/19 10:16 11/10/19 10:22 11/10/19 10:26 Temperature 36.4 C L Temperature Source Oral Pulse Rate 132 H 136 H 131 H Pulse Rate from SpO2 Sensor 131 H Respiratory Rate 26 H 24 24 Respiratory Effort / Characteristics Non-Labored Spontaneous Respiratory Depth Normal Respiratory Pattern Regular Blood Pressure 91/47 L 86/54 L Blood Pressure Mean 56 64 Pulse Oximetry 92 92 92 Oxygen Delivery Method Nasal Cannula Nasal Cannula Nasal Cannula Oxygen Flow Rate 2 4 4 Sepsis Recent Fever Within 48 Hours No Sepsis New/Unexplained Change in Mental Status No Sepsis Action Taken by Nursing No Action Required 11/10/19 10:30 11/10/19 10:45 11/10/19 11:01 Temperature Temperature Source Pulse Rate 123 H 133 H 130 H Pulse Rate from SpO2 Sensor 128 H 124 H 138 H Respiratory Rate 23 27 H Respiratory Effort / Characteristics Respiratory Depth Respiratory Pattern Blood Pressure 101/51 L 126/67 120/73 Blood Pressure Mean 62 79 78 Pulse Oximetry 91 92 92 Oxygen Delivery Method Nasal Cannula Oxygen Flow Rate 2 Sepsis Recent Fever Within 48 Hours Sepsis New/Unexplained Change in Mental Status Sepsis Action Taken by Nursing 11/10/19 11:15 11/10/19 11:30 11/10/19 11:45 Temperature 38.8 C H Temperature Source Pulse Rate 132 H 135 H 123 H Pulse Rate from SpO2 Sensor 125 H Respiratory Rate 24 21 23 Respiratory Effort / Characteristics Respiratory Depth Respiratory Pattern Blood Pressure 131/80 126/79 124/73 Blood Pressure Mean 102 92 79 Pulse Oximetry 92 93 93 Oxygen Delivery Method Nasal Cannula Oxygen Flow Rate 5 Sepsis Recent Fever Within 48 Hours Sepsis New/Unexplained Change in Mental Status Sepsis Action Taken by Nursing 11/10/19 12:12 11/10/19 12:15 11/10/19 12:30 Temperature Temperature Source Pulse Rate 132 H 120 H 124 H Pulse Rate from SpO2 Sensor Respiratory Rate 18 27 H 25 H Respiratory Effort / Characteristics Respiratory Depth Respiratory Pattern Blood Pressure 117/77 119/82 130/89 Blood Pressure Mean 94 93 107 Pulse Oximetry 94 93 94 Oxygen Delivery Method Oxygen Flow Rate Sepsis Recent Fever Within 48 Hours Sepsis New/Unexplained Change in Mental Status Sepsis Action Taken by Nursing Laboratory Data Attestation: I reviewed the patient's lab results. Result diagrams: 11/10/19 10:11 11/10/19 10:11 Lab Results 11/10/19 11/10/19 11/10/19 Range/Units 10:10 10:11 10:11 WBC 21.18 H (4.8-10.8) K/uL RBC 5.79 (4.7-6.1) M/uL Hgb 15.9 (14.0-18.0) g/dL POC Hgb (14.0-18.0) g/dl Hct 48.5 (42-52) % POC Hct (42-52) % MCV 83.8 (80-100) fL MCH 27.5 (25-34) pg MCHC 32.8 (32-36) g/dL RDW Std Deviation 57.5 H (36.4-46.3) fL RDW Coeff of Shadi 19.1 H (11.5-14.5) % Plt Count 215 (130-400) K/uL MPV 10.2 (7.4-10.4) fL Immature Gran % (Auto) 0.4 % Neut % (Auto) 93.6 % Lymph % (Auto) 1.7 % [place] % (Auto) 4.2 % Eos % (Auto) 0.0 % Baso % (Auto) 0.1 % Immature Gran # (Auto) 0.08 H (0.00-0.02) K/uL Neut # (Auto) 19.80 H (1.4-6.5) K/uL Lymph # (Auto) 0.37 L (1.2-3.4) K/uL [place] # (Auto) 0.90 H (0.11-0.59) K/uL Eos # (Auto) 0.01 (0-0.5) K/uL Baso # (Auto) 0.02 (0-0.2) K/uL Absolute Nucleated RBC 0.03 H (0-0) K/uL Nucleated RBC % (auto) 0.2 % PT (9.0-12.0) Seconds INR (0.9-1.1) APTT (21.0-31.0) Seconds PTT Ratio VBG pH (7.36-7.41) VBG pCO2 (38-50) mmHg VBG pO2 mmHg VBG HCO3 mmol/L VBG O2 Saturation % VBG Base Excess mEq/L Barometric Pressure mm/Hg POC Sodium (135-144) mmol/L Sodium (136-145) mmol/L POC Potassium (3.3-5.0) mmol/L Potassium (3.5-5.1) mmol/L POC Chloride (101-112) mmol/L Chloride (98-107) mmol/L Carbon Dioxide (21-32) mmol/L POC Total CO2 (24-31) mmol/L Anion Gap (3-11) POC Anion Gap (16-25) mmol/L POC BUN (7-18) mg/dl BUN (7-18) mg/dl Creatinine (0.6-1.4) mg/dl POC Creatinine (0.6-1.3) mg/dl Est Cr Clr Drug Dosing ml/min Est GFR ( Amer) Est GFR (Non-Af Amer) BUN/Creatinine Ratio (10-20) Glucose (70-99) mg/dl POC Glucose (other) (70-99) mg/dl Lactate (0.4-2.0) mmol/L Calcium (8.5-10.1) mg/dl POC Ioniz Calcium Pepito (1.12-1.32) mmol/l Phosphorus (2.5-4.9) mg/dl Magnesium (1.8-2.4) mg/dl Total Bilirubin (0.2-1) mg/dl Direct Bilirubin (0-0.2) mg/dl AST (15-37) U/L ALT (12-78) U/L Alkaline Phosphatase (45-117) U/L Troponin I (0-0.045) ng/ml NT-Pro-B Natriuret Pep (0-1800) pg/ml Total Protein (6.4-8.2) gm/dl Albumin (3.4-5.0) gm/dl Globulin (2.5-4.0) gm/dl Albumin/Globulin Ratio (0.9-2) Procalcitonin 6.33 H (0-0.5) ng/ml Urine Color Urine Appearance (Clear) Urine pH (4.5-7.5) Ur Specific Jerome (1.000-1.030) Urine Protein (Negative) Urine Glucose (UA) (Negative) Urine Ketones (Negative) Urine Blood (Negative) Urine Nitrite (Negative) Urine Bilirubin (Negative) Urine Urobilinogen (Negative) Ur Leukocyte Esterase (Negative) Urine WBC (Auto) (0-5) /hpf Urine RBC (Auto) (0-4) /hpf U Hyaline Cast (Auto) (0-5) /lpf U Epithel Cells (Auto) (0-5) /lpf Urine Bacteria (Auto) (Negative) Influenza Type A (PCR) Neg for Influ A (Neg) Influenza Type B (PCR) Neg for Influ B (Neg) 11/10/19 11/10/19 11/10/19 Range/Units 10:11 10:11 10:11 WBC (4.8-10.8) K/uL RBC (4.7-6.1) M/uL Hgb (14.0-18.0) g/dL POC Hgb (14.0-18.0) g/dl Hct (42-52) % POC Hct (42-52) % MCV (80-100) fL MCH (25-34) pg MCHC (32-36) g/dL RDW Std Deviation (36.4-46.3) fL RDW Coeff of Shadi (11.5-14.5) % Plt Count (130-400) K/uL MPV (7.4-10.4) fL Immature Gran % (Auto) % Neut % (Auto) % Lymph % (Auto) % [place] % (Auto) % Eos % (Auto) % Baso % (Auto) % Immature Gran # (Auto) (0.00-0.02) K/uL Neut # (Auto) (1.4-6.5) K/uL Lymph # (Auto) (1.2-3.4) K/uL [place] # (Auto) (0.11-0.59) K/uL Eos # (Auto) (0-0.5) K/uL Baso # (Auto) (0-0.2) K/uL Absolute Nucleated RBC (0-0) K/uL Nucleated RBC % (auto) % PT 12.7 H (9.0-12.0) Seconds INR 1.2 H (0.9-1.1) APTT 30.8 (21.0-31.0) Seconds PTT Ratio 1.1 VBG pH (7.36-7.41) VBG pCO2 (38-50) mmHg VBG pO2 mmHg VBG HCO3 mmol/L VBG O2 Saturation % VBG Base Excess mEq/L Barometric Pressure mm/Hg POC Sodium (135-144) mmol/L Sodium 136 (136-145) mmol/L POC Potassium (3.3-5.0) mmol/L Potassium 4.3 (3.5-5.1) mmol/L POC Chloride (101-112) mmol/L Chloride 101 (98-107) mmol/L Carbon Dioxide 24 (21-32) mmol/L POC Total CO2 (24-31) mmol/L Anion Gap 11.0 (3-11) POC Anion Gap (16-25) mmol/L POC BUN (7-18) mg/dl BUN 39 H (7-18) mg/dl Creatinine 1.82 H (0.6-1.4) mg/dl POC Creatinine (0.6-1.3) mg/dl Est Cr Clr Drug Dosing 46.5 ml/min Est GFR ( Amer) 40.0 Est GFR (Non-Af Amer) 34.6 BUN/Creatinine Ratio 21.2 H (10-20) Glucose 191 H (70-99) mg/dl POC Glucose (other) (70-99) mg/dl Lactate (0.4-2.0) mmol/L Calcium 8.4 L (8.5-10.1) mg/dl POC Ioniz Calcium Pepito (1.12-1.32) mmol/l Phosphorus 2.9 (2.5-4.9) mg/dl Magnesium 2.0 (1.8-2.4) mg/dl Total Bilirubin 2.7 H (0.2-1) mg/dl Direct Bilirubin 1.6 H (0-0.2) mg/dl AST 134 H (15-37) U/L ALT 80 H (12-78) U/L Alkaline Phosphatase 173 H (45-117) U/L Troponin I 1.330 H* (0-0.045) ng/ml NT-Pro-B Natriuret Pep 4674 H (0-1800) pg/ml Total Protein 8.3 H (6.4-8.2) gm/dl Albumin 3.2 L (3.4-5.0) gm/dl Globulin 5.1 H (2.5-4.0) gm/dl Albumin/Globulin Ratio 0.6 L (0.9-2) Procalcitonin (0-0.5) ng/ml Urine Color Urine Appearance (Clear) Urine pH (4.5-7.5) Ur Specific Jerome (1.000-1.030) Urine Protein (Negative) Urine Glucose (UA) (Negative) Urine Ketones (Negative) Urine Blood (Negative) Urine Nitrite (Negative) Urine Bilirubin (Negative) Urine Urobilinogen (Negative) Ur Leukocyte Esterase (Negative) Urine WBC (Auto) (0-5) /hpf Urine RBC (Auto) (0-4) /hpf U Hyaline Cast (Auto) (0-5) /lpf U Epithel Cells (Auto) (0-5) /lpf Urine Bacteria (Auto) (Negative) Influenza Type A (PCR) (Neg) Influenza Type B (PCR) (Neg) 11/10/19 11/10/19 11/10/19 Range/Units 10:30 10:31 10:31 WBC (4.8-10.8) K/uL RBC (4.7-6.1) M/uL Hgb (14.0-18.0) g/dL POC Hgb 17.0 (14.0-18.0) g/dl Hct (42-52) % POC Hct 50 (42-52) % MCV (80-100) fL MCH (25-34) pg MCHC (32-36) g/dL RDW Std Deviation (36.4-46.3) fL RDW Coeff of Shadi (11.5-14.5) % Plt Count (130-400) K/uL MPV (7.4-10.4) fL Immature Gran % (Auto) % Neut % (Auto) % Lymph % (Auto) % [place] % (Auto) % Eos % (Auto) % Baso % (Auto) % Immature Gran # (Auto) (0.00-0.02) K/uL Neut # (Auto) (1.4-6.5) K/uL Lymph # (Auto) (1.2-3.4) K/uL [place] # (Auto) (0.11-0.59) K/uL Eos # (Auto) (0-0.5) K/uL Baso # (Auto) (0-0.2) K/uL Absolute Nucleated RBC (0-0) K/uL Nucleated RBC % (auto) % PT (9.0-12.0) Seconds INR (0.9-1.1) APTT (21.0-31.0) Seconds PTT Ratio VBG pH 7.41 (7.36-7.41) VBG pCO2 39 (38-50) mmHg VBG pO2 38 mmHg VBG HCO3 24 mmol/L VBG O2 Saturation 70.0 % VBG Base Excess 0 mEq/L Barometric Pressure 733.2 mm/Hg POC Sodium 137 (135-144) mmol/L Sodium (136-145) mmol/L POC Potassium 4.2 (3.3-5.0) mmol/L Potassium (3.5-5.1) mmol/L POC Chloride 103 (101-112) mmol/L Chloride (98-107) mmol/L Carbon Dioxide (21-32) mmol/L POC Total CO2 20 L (24-31) mmol/L Anion Gap (3-11) POC Anion Gap 19.0 (16-25) mmol/L POC BUN 35 H (7-18) mg/dl BUN (7-18) mg/dl Creatinine (0.6-1.4) mg/dl POC Creatinine 1.5 H (0.6-1.3) mg/dl Est Cr Clr Drug Dosing ml/min Est GFR ( Amer) Est GFR (Non-Af Amer) BUN/Creatinine Ratio (10-20) Glucose (70-99) mg/dl POC Glucose (other) 186 H (70-99) mg/dl Lactate 3.6 H* (0.4-2.0) mmol/L Calcium (8.5-10.1) mg/dl POC Ioniz Calcium Pepito 0.97 L (1.12-1.32) mmol/l Phosphorus (2.5-4.9) mg/dl Magnesium (1.8-2.4) mg/dl Total Bilirubin (0.2-1) mg/dl Direct Bilirubin (0-0.2) mg/dl AST (15-37) U/L ALT (12-78) U/L Alkaline Phosphatase (45-117) U/L Troponin I (0-0.045) ng/ml NT-Pro-B Natriuret Pep (0-1800) pg/ml Total Protein (6.4-8.2) gm/dl Albumin (3.4-5.0) gm/dl Globulin (2.5-4.0) gm/dl Albumin/Globulin Ratio (0.9-2) Procalcitonin (0-0.5) ng/ml Urine Color Urine Appearance (Clear) Urine pH (4.5-7.5) Ur Specific [place] (1.000-1.030) Urine Protein (Negative) Urine Glucose (UA) (Negative) Urine Ketones (Negative) Urine Blood (Negative) Urine Nitrite (Negative) Urine Bilirubin (Negative) Urine Urobilinogen (Negative) Ur Leukocyte Esterase (Negative) Urine WBC (Auto) (0-5) /hpf Urine RBC (Auto) (0-4) /hpf U Hyaline Cast (Auto) (0-5) /lpf U Epithel Cells (Auto) (0-5) /lpf Urine Bacteria (Auto) (Negative) Influenza Type A (PCR) (Neg) Influenza Type B (PCR) (Neg) 11/10/19 11/10/19 Range/Units 11:14 12:40 WBC (4.8-10.8) K/uL RBC (4.7-6.1) M/uL Hgb (14.0-18.0) g/dL POC Hgb (14.0-18.0) g/dl Hct (42-52) % POC Hct (42-52) % MCV (80-100) fL MCH (25-34) pg MCHC (32-36) g/dL RDW Std Deviation (36.4-46.3) fL RDW Coeff of Shadi (11.5-14.5) % Plt Count (130-400) K/uL MPV (7.4-10.4) fL Immature Gran % (Auto) % Neut % (Auto) % Lymph % (Auto) % [place] % (Auto) % Eos % (Auto) % Baso % (Auto) % Immature Gran # (Auto) (0.00-0.02) K/uL Neut # (Auto) (1.4-6.5) K/uL Lymph # (Auto) (1.2-3.4) K/uL [place] # (Auto) (0.11-0.59) K/uL Eos # (Auto) (0-0.5) K/uL Baso # (Auto) (0-0.2) K/uL Absolute Nucleated RBC (0-0) K/uL Nucleated RBC % (auto) % PT (9.0-12.0) Seconds INR (0.9-1.1) APTT (21.0-31.0) Seconds PTT Ratio VBG pH (7.36-7.41) VBG pCO2 (38-50) mmHg VBG pO2 mmHg VBG HCO3 mmol/L VBG O2 Saturation % VBG Base Excess mEq/L Barometric Pressure mm/Hg POC Sodium (135-144) mmol/L Sodium (136-145) mmol/L POC Potassium (3.3-5.0) mmol/L Potassium (3.5-5.1) mmol/L POC Chloride (101-112) mmol/L Chloride (98-107) mmol/L Carbon Dioxide (21-32) mmol/L POC Total CO2 (24-31) mmol/L Anion Gap (3-11) POC Anion Gap (16-25) mmol/L POC BUN (7-18) mg/dl BUN (7-18) mg/dl Creatinine (0.6-1.4) mg/dl POC Creatinine (0.6-1.3) mg/dl Est Cr Clr Drug Dosing ml/min Est GFR ( Amer) Est GFR (Non-Af Amer) BUN/Creatinine Ratio (10-20) Glucose (70-99) mg/dl POC Glucose (other) (70-99) mg/dl Lactate 2.8 H* (0.4-2.0) mmol/L Calcium (8.5-10.1) mg/dl POC Ioniz Calcium Pepito (1.12-1.32) mmol/l Phosphorus (2.5-4.9) mg/dl Magnesium (1.8-2.4) mg/dl Total Bilirubin (0.2-1) mg/dl Direct Bilirubin (0-0.2) mg/dl AST (15-37) U/L ALT (12-78) U/L Alkaline Phosphatase (45-117) U/L Troponin I (0-0.045) ng/ml NT-Pro-B Natriuret Pep (0-1800) pg/ml Total Protein (6.4-8.2) gm/dl Albumin (3.4-5.0) gm/dl Globulin (2.5-4.0) gm/dl Albumin/Globulin Ratio (0.9-2) Procalcitonin (0-0.5) ng/ml Urine Color Yellow Urine Appearance Turbid A (Clear) Urine pH 7.5 (4.5-7.5) Ur Specific [place] 1.012 (1.000-1.030) Urine Protein Negative (Negative) Urine Glucose (UA) Negative (Negative) Urine Ketones Negative (Negative) Urine Blood Trace H (Negative) Urine Nitrite Negative (Negative) Urine Bilirubin Negative (Negative) Urine Urobilinogen Negative (Negative) Ur Leukocyte Esterase 3+ H (Negative) Urine WBC (Auto) >30 H (0-5) /hpf Urine RBC (Auto) 0-4 (0-4) /hpf U Hyaline Cast (Auto) 1-5 (0-5) /lpf U Epithel Cells (Auto) 20-30 H (0-5) /lpf Urine Bacteria (Auto) 4+ H (Negative) Influenza Type A (PCR) (Neg) Influenza Type B (PCR) (Neg) Administered Medications Hydrocodone Bitart/Acetaminophen ([place] 5/325) 1 tab PO Q8H PRN PRN Reason: Pain Stop: 11/24/19 15:57 Last Admin: 11/10/19 16:49 Dose: 1 tab Documented by: [id number] Diltiazem HCl 125 mg/ Dextrose 125 mls @ 5 mls/hr IV .Q24H MARIYA; Protocol Stop: 12/10/19 12:59 Last Admin: 11/10/19 13:54 Dose: 5 mg/hr, 5 mls/hr Documented by: [id number] Cosigned by: [id number] Insulin Aspart (Novolog Flexpen) 0 units SC ACHS MARIYA Stop: 12/10/19 16:29 Last Admin: 11/10/19 17:08 Dose: 2 units Documented by: [id number] Cosigned by: [id number] Discontinued Medications Furosemide (Lasix) 40 mg IV NOW STA Stop: 11/10/19 14:31 Last Admin: 11/10/19 14:41 Dose: 40 mg Documented by: [id number] Furosemide (Lasix) Confirm Administered Dose 40 mg IV .STK-MED ONE Stop: 11/10/19 14:33 Last Admin: 11/10/19 14:41 Dose: Not Given Documented by: [id number] Sodium Chloride (Nss 1000ml) 1,000 mls @ 999 mls/hr IV .Q1H1M ONE Stop: 11/10/19 11:05 Last Infusion: 11/10/19 12:13 Dose: 0 mls/hr Documented by: [id number] Admin: 11/10/19 10:14 Dose: 999 mls/hr Documented by: [id number] Vancomycin HCl 2,750 mg/ (Sodium Chloride) 555 mls @ 200 mls/hr IV NOW ONE Stop: 11/10/19 13:36 Last Infusion: 11/10/19 14:05 Dose: 0 mls/hr Documented by: [id number] Admin: 11/10/19 11:18 Dose: 200 mls/hr Documented by: [id number] Cefepime HCl (Maxipime) 2,000 mg in 20 mls @ 5 mls/min IV NOW STA Stop: 11/10/19 10:54 Last Admin: 11/10/19 11:12 Dose: 5 mls/min Documented by: [id number] Acetaminophen (Ofirmev) 1,000 mg in 100 mls @ 400 mls/hr IV NOW STA Stop: 11/10/19 11:54 Last Infusion: 11/10/19 12:00 Dose: 0 mls/hr Documented by: [id number] Admin: 11/10/19 11:46 Dose: 400 mls/hr Documented by: [id number] Metoprolol Succinate (Toprol Xl) 200 mg PO DAILY MARIYA Stop: 11/10/19 18:00 Last Admin: 11/10/19 16:07 Dose: Not Given Documented by: [id number] Imaging Data Radiologist's Impression: XR chest 1V portable CLINICAL HISTORY: Sepsis. COMPARISON STUDY: Chest CT August 21, 2018. Chest radiograph June 17, 2019. FINDINGS: Lung volumes are normal. There is no pneumothorax or pleural effusion. There is pulmonary vascular congestion without overt pulmonary edema. Moderate cardiomegaly is unchanged. No consolidation is identified. IMPRESSION: Pulmonary vascular congestion. Stable cardiomegaly. ACT 112: Negative or not required by law. ----- CT OF THE HEAD WITHOUT CONTRAST CLINICAL HISTORY: Fall. Headache. COMPARISON STUDY: PET/CT August 21, 2018. MRI of the brain August 22, 2018. TECHNIQUE: Helical axial images of the head were obtained without IV contrast. Automated exposure control was utilized for the study. A dose lowering technique was utilized adhering to the principles of ALARA. FINDINGS: No acute intracranial hemorrhage, midline shift or mass effect is present. The ventricular system is unremarkable. The basilar cisterns are patent. White matter hypodensity is unchanged and suggests small vessel disease. No extra-axial collections are present. There are no findings to suggest acute dural sinus thrombosis or acute territorial infarct. No significant calvarial abnormalities are present. Visualized portions of the sinuses and mastoid air cells are clear. IMPRESSION: 1. No acute intracranial findings. No change in appearance of the brain. 2. No calvarial fracture. ACT 112: Negative or not required by law. -- CT OF THE ABDOMEN AND PELVIS WITHOUT CONTRAST CLINICAL HISTORY: sepsis, uti, patiño catheter COMPARISON STUDY: CT of the abdomen and pelvis 12/28/2018. Renal ultrasound June 20, 2019. TECHNIQUE: Axial images of the abdomen and pelvis were obtained without IV contrast. Images were reviewed in the axial, sagittal, and coronal planes. Automated exposure control was utilized for the study. A dose lowering technique was utilized adhering to the principles of ALARA. FINDINGS: This exam is compromised by motion artifact. The liver is cirrhotic. No lesions are identified although sensitivity is diminished on this unenhanced exam. The gallbladder surgically absent. There is no peripancreatic infiltration. Unenhanced images of the spleen, adrenal glands and left kidney are unremarkable. A few right renal lesions were shown to likely reflect cysts on prior contrast enhanced exam. There is no hydronephrosis or hydroureter. There are no ureteral calculi. A Patiño balloon is present within the bladder. The bladder is collapsed. There is no evidence for a bowel obstruction. No p neumatosis, free air or portal venous gas is present. The appendix is normal. There is no lymphadenopathy. Right hip arthroplasty is noted. Trace pneumobilia is again noted. IMPRESSION: 1. No urinary calculi or hydronephrosis. 2. Exam compromised by motion artifact. No acute findings on unenhanced exam. 3. Cirrhosis. 4. Patiño balloon within the bladder which is collapsed. ACT 112: Negative or not required by law. Blood Pressure Blood Pressure Findings: Normal blood pressure Discharge Plan Visit Data *Final* Discharge Date/Time: 11/10/19 14:45 Chief Complaint: Illness Stated Complaint: sepsis ED Provider: Christiano Tsai Discharge Problem: Sepsis, Atrial fibrillation with RVR, Urinary tract infection, Elevated troponin, Leukocytosis, Acquired buried penis, Scrotal varicose veins Patient Disposition: Admitted As Inpatient Discharge Instructions Interventions: ED Discharge Assessment Last Done: 11/10/19 14:45 Discharge Problem: Sepsis Qualifiers: Sepsis type: sepsis due to unspecified organism Sepsis acute organ dysfunction status: with acute organ dysfunction Severe sepsis acute organ dysfunction type: unspecified Severe sepsis shock status: without septic shock Qualified Code(s): A41.9 - Sepsis, unspecified organism Urinary tract infection Qualifiers: Urinary tract infection type: acute cystitis Hematuria presence: with hematuria Qualified Code(s): N30.01 - Acute cystitis with hematuria Leukocytosis Qualifiers: Leukocytosis type: bandemia Qualified Code(s): D72.825 - Bandemia
[2019-11-10 10:25] LABS: Basophils # (auto) 0.02 K/uL (0-0.2); Basophils % (auto) 0.1 %; Eosinophils # (auto) 0.01 K/uL (0-0.5); Hematocrit (blood only) 48.5 % (42-52); Hemoglobin 15.9 g/dL (14.0-18.0); Immature Granulocytes # (auto) 0.08 K/uL (0.00-0.02); Immature Granulocytes % (auto) 0.4 %; Lymphocytes # (auto) 0.37 K/uL (1.2-3.4); Lymphocytes % (auto) 1.7 %; Mean Corpuscular Hemoglobin 27.5 pg (25-34); Mean Corpuscular Hgb Conc 32.8 g/dL (32-36); Mean Corpuscular Volume 83.8 fL (80-100); Mean Platelet Volume 10.2 fL (7.4-10.4); Monocytes % (auto) 4.2 %; Neutrophils % (auto) 93.6 %; Nucleated RBC # (auto) 0.03 K/uL (0-0); Nucleated RBC % (auto) 0.2 %; Platelet Count 215 K/uL (130-400); RDW Coefficient of Variation 19.1 % (11.5-14.5); RDW Standard Deviation 57.5 fL (36.4-46.3); Red Blood Count 5.79 M/uL (4.7-6.1); White Blood Count 21.18 K/uL (4.8-10.8)
[2019-11-10 10:36] LABS: INR 1.2 (0.9-1.1); Partial Thromboplastin Ratio 1.1; Partial Thromboplastin Time 30.8 Seconds (21.0-31.0); Prothrombin Time 12.7 Seconds (9.0-12.0)
[2019-11-10 10:43] LABS: iSTAT Creatinine 1.5 mg/dl (0.6-1.3); iSTAT Ionized Calcium 0.97 mmol/l (1.12-1.32); iSTAT Potassium 4.2 mmol/L (3.3-5.0)
[2019-11-10 10:44] LABS: Albumin Level 3.2 gm/dl (3.4-5.0); BUN Creatinine Ratio 21.2 (10-20); Bilirubin Direct 1.6 mg/dl (0-0.2); Calcium 8.4 mg/dl (8.5-10.1); Creatinine Clr Calc Pharmacy 46.5 ml/min; Est GFR (Non-African American) 34.6; Potassium 4.3 mmol/L (3.5-5.1)
--- NOTE | 2019-11-10 10:45 | XRay Report ---
XR chest 1V portable CLINICAL HISTORY: Sepsis. COMPARISON STUDY: Chest CT August 21, 2018. Chest radiograph June 17, 2019. FINDINGS: Lung volumes are normal. There is no pneumothorax or pleural effusion. There is pulmonary v ascular congestion without overt pulmonary edema. Moderate cardiomegaly is unchanged. No consolidatio n is identified. IMPRESSION: Pulmonary vascular congestion. Stable cardiomegaly. ACT 112: Negative or not required by law. Electronically signed by: Aroldo Mahan M.D. 11/10/2019 10:43 AM
[2019-11-10 10:49] LABS: pH VBG 7.41 (7.36-7.41)
[2019-11-10] MEDS ORDERED: VANCOMYCIN CONSULT ACTIVE PRN (10:50)
[2019-11-10] MEDS ORDERED: VANCOMYCIN HCL 2,750 MG in SODIUM CHLORIDE 0.9% 500 ML IV ONE (10:50)
[2019-11-10] MEDS ORDERED: CEFEPIME 2,000 MG/20 ML VIAL IV STA (10:51)
[2019-11-10 10:54] LABS: Albumin Globulin Ratio 0.6 (0.9-2); Bilirubin,Total 2.7 mg/dl (0.2-1); Globulin 5.1 gm/dl (2.5-4.0); Phosphorus 2.9 mg/dl (2.5-4.9); Total Protein 8.3 gm/dl (6.4-8.2); Troponin I 1.33 ng/ml (0-0.045)
[2019-11-10 10:58] LABS: Influenza A virus by PCR Neg for Influ A (Neg); Influenza B virus by PCR Neg for Influ B (Neg)
[2019-11-10 11:29] LABS: Appearance Urine Turbid (Clear); Bacteria Urine Automated 4+ (Negative); Bilirubin Urine Negative (Negative); Blood Urine Trace (Negative); Color Urine Yellow; Epithelial Cell Urine Auto 20-30 /lpf (0-5); Glucose Urine UA Negative (Negative); Ketones Urine Negative (Negative); Leukocyte Esterase Urine 3+ (Negative); Nitrite Urine Negative (Negative); RBC Urine Automated 0-4 /hpf (0-4); Specific Gravity Urine 1.012 (1.000-1.030); Urobilinogen Urine Negative (Negative); WBC Urine Automated >30 /hpf (0-5); pH Urine 7.5 (4.5-7.5)
[2019-11-10] MEDS ORDERED: ACETAMINOPHEN 1,000 MG/100 ML VIAL IV STA (11:40)
[2019-11-10 11:52] LABS: Protein Urine Negative (Negative); Sulfosalicylic Acid Urine Negative (Negative)
--- NOTE | 2019-11-10 12:19 | CT Scan Report ---
CT OF THE HEAD WITHOUT CONTRAST CLINICAL HISTORY: Fall. Headache. COMPARISON STUDY: PET/CT August 21, 2018. MRI of the brain August 22, 2018. TECHNIQUE: Helical axial images of the head were obtained without IV contrast. Automated exposure con trol was utilized for the study. A dose lowering technique was utilized adhering to the principles o f ALARA. FINDINGS: No acute intracranial hemorrhage, midline shift or mass effect is present. The ventricular system is unremarkable. The basilar cisterns are patent. White matter hypodensity is unchanged and lucas ggests small vessel disease. No extra-axial collections are present. There are no findings to suggest acute dural sinus thrombosis or acute territorial infarct. No significant calvarial abnormalities ar e present. Visualized portions of the sinuses and mastoid air cells are clear. IMPRESSION: 1. No acute intracranial findings. No change in appearance of the brain. 2. No calvarial fracture. ACT 112: Negative or not required by law. Electronically signed by: Aroldo Mahan M.D. 11/10/2019 12:18 PM
--- NOTE | 2019-11-10 12:29 | CT Scan Report ---
CT OF THE ABDOMEN AND PELVIS WITHOUT CONTRAST CLINICAL HISTORY: sepsis, uti, patiño catheter COMPARISON STUDY: CT of the abdomen and pelvis 12/28/2018. Renal ultrasound June 20, 2019. TECHNIQUE: Axial images of the abdomen and pelvis were obtained without IV contrast. Images were revi ewed in the axial, sagittal, and coronal planes. Automated exposure control was utilized for the veronica dy. A dose lowering technique was utilized adhering to the principles of ALARA. FINDINGS: This exam is compromised by motion artifact. The liver is cirrhotic. No lesions are identif ied although sensitivity is diminished on this unenhanced exam. The gallbladder surgically absent. Th ere is no peripancreatic infiltration. Unenhanced images of the spleen, adrenal glands and left kidne y are unremarkable. A few right renal lesions were shown to likely reflect cysts on prior contrast en hanced exam. There is no hydronephrosis or hydroureter. There are no ureteral calculi. A Patiño balloo n is present within the bladder. The bladder is collapsed. There is no evidence for a bowel obstructi on. No pneumatosis, free air or portal venous gas is present. The appendix is normal. There is no lym phadenopathy. Right hip arthroplasty is noted. Trace pneumobilia is again noted. IMPRESSION: 1. No urinary calculi or hydronephrosis. 2. Exam compromised by motion artifact. No acute findings on unenhanced exam. 3. Cirrhosis. 4. Patiño balloon within the bladder which is collapsed. ACT 112: Negative or not required by law. Electronically signed by: Aroldo Mahan M.D. 11/10/2019 12:28 PM
[2019-11-10] MEDS ORDERED: STAT IV Infusion **Titration per Protocol STA (12:52)
[2019-11-10] MEDS ORDERED: dilTIAZem HCL 125 MG in DEXTROSE 5% 100 ML IV SCH (13:00)
--- NOTE | 2019-11-10 13:08 | History & Physical Report ---
Date of Service November 10, 2019 Assessment & Plan (1) Sepsis: Sepsis 2/2 CAUTI. Cont broad spectrum abx while resuscitating. Although IVF given initially, respiratory rate and hypoxia are worsening and CXR reveals congestion. Convern for fluid overload so will give Lasix 40mg IV now. Trend lactate. Cont hemodynamic support in PCU. (2) Catheter-associated urinary tract infection: Cont broad abx pending clinical improvement and culture results. (3) Hypoxia: Likely 2/2 increased metabolic demand in sepsis and acute fluid overload after sepsis resuscitation efforts. Lasix as above. Cont oxygen sup plementation as needed. (4) Acute diastolic heart failure: Related to fluid resuscitation in sepsis. Lasix 40mg IV with close clinical monitoring on PCU. Diurese as needed. Appreciate cardiology thoughts on volume status. (5) Demand ischemia: No chest pain or evidence of acute ischemia on EKG. Trend trop. Likely related to demand ischemia in setting of sepsis. (6) Atrial fibrillation with rapid ventricular response: 2/2 sepsis. Cont Toprol XL (giving am dose now) per home regimen and dilt drip to help control rate. Cardiology consulted. Anticoagulation avoided in the past 2/2 a bleeding hemangioma on his scrotum. However, per this has healed significantly, so it is possible to reconsider anticoagulation. Would defer this to Cardiology. (7) CIERRA (acute kidney injury): in setting of sepsis. Trend BMP in am. (8) Leukocytosis: with left shift. Likely 2/2 infection. Trend cbc in am. 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 Wound care consult to assess intergluteal fold and skin folds of thighs. (10) Obstructive sleep apnea: Denies CPAP use. (11) Morbid obesity: (12) Diabetes mellitus with diabetic polyneuropathy: Hold home medications. Cont basal/bolus insulin at stress dose with carb coverage. Blood sugar checks ACHS (13) Barretts esophagus: cont home PPI (14) Seizures: cont home Keppra, seizure precautions (15) DVT prophylaxis: Heparin Full Code as confirmed with patient on admission Dispo-to PCU Marisol Daly DO [facility] Hospitalist History of Present Illness Primary Care Provider: Donte Szymanski DO 79 yo M with chronic atrial fibrillation presented to the ER reporting acute onset rigors at 0300 today. He has an indwelling Patiño and is very sedentary, requiring a lift and max assistance to ambulate. He was found to be septic with a leukocytosis with left shift, fever to 102F, and hypoxia. The patient reported feeling well and asked to go home. reports that he is scared of COVID and equates coming to the hospital with a poor outcome. The patient reports no SOB, no recent paroxysmal dyspnea, SOW or weight gain although he reports not taking his weight daily like he should. He does report keeping consistent with a low salt diet, however. reports some recent constipation that was severe. The patient denies any abdominal or pelvic discomfort. Had some Miralax and a BM yesterday. Weakness is present and the patient has chronic orthopnea. He is not on supplemental oxygen and is requiring 5L via NC now. CXR reveals pulmonary vascular congestion and he was given 2L of IVF in the ER per ER physician. On arrival to the ER he was only requiring 2LPM oxygen supplementation. Afib with RVR with a HR in the 170s noted in the field and he was given 15mg diltiazem prehospital with an improvement in HR to the 140s. On arrival blood pressure was in the 80s systolic, thought secondary to the dilt and that's when the IVF were given with improvement in the BP to 122/66. HR remained in the 120-130s and diltiazem was reinitiated when the BP improved. However, after another couple of hours he became more tachypneic with persistent hypoxia. Concern for fluid overload prompted administration of Lasix 40mg IV. He was placed in PCU for further care. was contacted by phone and updated. She agrees no symptoms were present until 030 today. Cardiology was notified of the consult. Allergies Allergy/AdvReac Type Severity Reaction Status Date / Time metronidazole Allergy Severe see below Verified 11/10/19 10:21 amoxicillin Allergy Intermediate rash Verified 11/10/19 10:21 Home Medications Home Medications Medication Instructions Recorded Confirmed Type ferrous sulfate 325 mg PO BID 06/16/18 11/10/19 History finasteride 5 mg PO DAILY 06/16/18 11/10/19 History metformin 500 mg PO QAM 06/16/18 11/10/19 History metoprolol succinate 200 mg PO DAILY 06/16/18 11/10/19 History pantoprazole 40 mg PO BID 06/16/18 11/10/19 History levetiracetam 500 mg PO BID 03/16/19 11/10/19 History Januvia 50 mg PO DAILY 06/17/19 11/10/19 History Lactobacillus acidophilus 1 tab PO BID 06/17/19 11/10/19 History hydrocodone-acetaminophen 1 tab PO Q8H PRN 06/17/19 11/10/19 History potassium chloride 10 meq PO DAILY 06/17/19 11/10/19 History aspirin [Aspirin Low Dose] 81 mg PO DAILY 11/10/19 11/10/19 History torsemide 40 mg PO DAILY PRN 11/10/19 11/10/19 History Past Med/Surg History Medical History (Updated 11/10/19 @ 15:29 by Marisol Daly DO) Acquired buried penis (Chronic) Acquired claw toe of right foot (Acute) Acute urinary retention (Acute) Atrial fibrillation with RVR (Acute) Barretts esophagus Benign hypertension (Chronic) BPH without urinary obstruction (Chronic) Callus (Acute) Chronic a-fib Chronic diastolic CHF (congestive heart failure) (Chronic) Chronic indwelling Patiño catheter (Chronic) Chronic venous insufficiency (Chronic) Complicated UTI (urinary tract infection) (Acute) Diabetes mellitus with diabetic polyneuropathy (Acute) 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, with fat layer exposed (Acute) Diverticulosis of colon (without mention of hemorrhage) (Chronic) DM (diabetes mellitus), type 2, uncontrolled w/ophthalmic complication (Chronic) Esophageal candidiasis (Acute) Exertional dyspnea (Chronic) Gastric ulcer with hemorrhage but without obstruction (Chronic) H/O Clostridium difficile infection (Chronic) Hemangioma of skin (Chronic) History of chronic atrial fibrillation (Chronic) Hypertension Hypoxia ICH (intracerebral hemorrhage) (Chronic) Morbid obesity (Chronic) Open wound of scrotum JUAN MANUEL (obstructive sleep apnea) (Chronic) Peripheral arterial disease Rhabdomyolysis (Acute) Scrotal varicose veins (Chronic) Skin ulcer of left foot including toes (Acute) Symptomatic anemia (Chronic) Urinary retention (Chronic) Surgical History History of total replacement of right hip (Chronic) S/P cholecystectomy (Chronic) S/P tonsillectomy and adenoidectomy (Chronic) Family History Other No significant family history Social History Preferred Language: Bangladeshi 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 Ability: Effective Batter Out Required: No Beliefs That Will Affect Care: None marital status: Current Living Situation: Spouse Current Living Situation Comment: Home with spouse Feels Safe at Home: Yes Smoking Status: Unknown if ever smoked Hx Alcohol Use: No Hx Substance Use: No Review of Systems Review of Systems: All systems reviewed & are unremarkable except as noted in Subjective Physical Exam Physical Exam: CONSTITUTIONAL: obese, vitals as above, generally well- appearing EYES: PERRL, normal conjunctivae, no scleral icterus ENT: external ear and nose normal, oropharynx clear, MMM NECK: trachea midline, NO hepatojugular reflux present RESPIRATORY: crackles at bases bilaterally, no rales or wheezes, mildly increased respiratory effort and conversational dyspnea present CARDIOVASCULAR: tachy rate and irregular rhythm, S1 and 2 heard without murmurs, gallops or rubs, no JVD, no peripheral edema, purplish skin coloration in lower extremities bilaterally consistent with chronic venous insufficiency GASTROINTESTINAL: soft, nontender, +hernia present-nontender and reducible, no guarding or distension MUSCULOSKELETAL: generalized weakness. No head trauma SKIN: warm and dry, buttocks not examined as patient was unable to move around in bed. reports small open spot in intergluteal fold, large reddish area over sacrum, and some small breaks in the skin in the upper leg folds. NEUROLOGIC: No facial palsy, no dysarthria. CN 2-12 grossly intact, no sensory deficit, normal cognition, normal speech, appears to be at baseline mental status. Unable to move his legs around much 2/2 weakness and physical deconditioning, so limited exam. PSYCHIATRIC: alert cooperative and oriented to person, place and time. Results & Data Results & Data ([facility]) Vital Signs (Past 12 Hours) Vital Signs Temp Pulse Resp BP Pulse Ox 11/10/19 11:30 38.8 C H 135 H 21 126/79 93 11/10/19 11:15 132 H 24 131/80 92 11/10/19 11:01 130 H 120/73 92 11/10/19 10:45 133 H 27 H 126/67 92 11/10/19 10:30 123 H 23 101/51 L 91 11/10/19 10:26 36.4 C L 131 H 24 86/54 L 92 11/10/19 10:22 136 H 24 92 11/10/19 10:16 132 H 26 H 91/47 L 92 11/10/19 10:12 123 H 25 H 86/54 L 11/10/19 10:07 136 H 28 H 90 11/10/19 10:03 124 H 26 H 175/163 H 88 L Laboratory Results Short CBC 11/10/19 11/10/19 11/10/19 Range/Units 10:10 10:11 10:11 WBC 21.18 H (4.8-10.8) K/uL RBC 5.79 (4.7-6.1) M/uL Hgb 15.9 (14.0-18.0) g/dL POC Hgb (14.0-18.0) g/dl Hct 48.5 (42-52) % POC Hct (42-52) % MCV 83.8 (80-100) fL MCH 27.5 (25-34) pg MCHC 32.8 (32-36) g/dL RDW Std Deviation 57.5 H (36.4-46.3) fL RDW Coeff of Shadi 19.1 H (11.5-14.5) % Plt Count 215 (130-400) K/uL MPV 10.2 (7.4-10.4) fL Immature Gran % (Auto) 0.4 % Neut % (Auto) 93.6 % Lymph % (Auto) 1.7 % [place] % (Auto) 4.2 % Eos % (Auto) 0.0 % Baso % (Auto) 0.1 % Immature Gran # (Auto) 0.08 H (0.00-0.02) K/uL Neut # (Auto) 19.80 H (1.4-6.5) K/uL Lymph # (Auto) 0.37 L (1.2-3.4) K/uL [place] # (Auto) 0.90 H (0.11-0.59) K/uL Eos # (Auto) 0.01 (0-0.5) K/uL Baso # (Auto) 0.02 (0-0.2) K/uL Absolute Nucleated RBC 0.03 H (0-0) K/uL Nucleated RBC % (auto) 0.2 % PT (9.0-12.0) Seconds INR (0.9-1.1) APTT (21.0-31.0) Seconds PTT Ratio VBG pH (7.36-7.41) VBG pCO2 (38-50) mmHg VBG pO2 mmHg VBG HCO3 mmol/L VBG O2 Saturation % VBG Base Excess mEq/L Barometric Pressure mm/Hg POC Sodium (135-144) mmol/L Sodium (136-145) mmol/L POC Potassium (3.3-5.0) mmol/L Potassium (3.5-5.1) mmol/L POC Chloride (101-112) mmol/L Chloride (98-107) mmol/L Carbon Dioxide (21-32) mmol/L POC Total CO2 (24-31) mmol/L Anion Gap (3-11) POC Anion Gap (16-25) mmol/L POC BUN (7-18) mg/dl BUN (7-18) mg/dl Creatinine (0.6-1.4) mg/dl POC Creatinine (0.6-1.3) mg/dl Est Cr Clr Drug Dosing ml/min Est GFR ( Amer) Est GFR (Non-Af Amer) BUN/Creatinine Ratio (10-20) Glucose (70-99) mg/dl POC Glucose (other) (70-99) mg/dl Lactate (0.4-2.0) mmol/L Calcium (8.5-10.1) mg/dl POC Ioniz Calcium Pepito (1.12-1.32) mmol/l Phosphorus (2.5-4.9) mg/dl Magnesium (1.8-2.4) mg/dl Total Bilirubin (0.2-1) mg/dl Direct Bilirubin (0-0.2) mg/dl AST (15-37) U/L ALT (12-78) U/L Alkaline Phosphatase (45-117) U/L Troponin I (0-0.045) ng/ml NT-Pro-B Natriuret Pep (0-1800) pg/ml Total Protein (6.4-8.2) gm/dl Albumin (3.4-5.0) gm/dl Globulin (2.5-4.0) gm/dl Albumin/Globulin Ratio (0.9-2) Procalcitonin 6.33 H (0-0.5) ng/ml Urine Color Urine Appearance (Clear) Urine pH (4.5-7.5) Ur Specific [place] (1.000-1.030) Urine Protein (Negative) Urine Glucose (UA) (Negative) Urine Ketones (Negative) Urine Blood (Negative) Urine Nitrite (Negative) Urine Bilirubin (Negative) Urine Urobilinogen (Negative) Ur Leukocyte Esterase (Negative) Urine WBC (Auto) (0-5) /hpf Urine RBC (Auto) (0-4) /hpf U Hyaline Cast (Auto) (0-5) /lpf U Epithel Cells (Auto) (0-5) /lpf Urine Bacteria (Auto) (Negative) Influenza Type A (PCR) Neg for Influ A (Neg) Influenza Type B (PCR) Neg for Influ B (Neg) 11/10/19 11/10/19 11/10/19 Range/Units 10:11 10:11 10:11 WBC (4.8-10.8) K/uL RBC (4.7-6.1) M/uL Hgb (14.0-18.0) g/dL POC Hgb (14.0-18.0) g/dl Hct (42-52) % POC Hct (42-52) % MCV (80-100) fL MCH (25-34) pg MCHC (32-36) g/dL RDW Std Deviation (36.4-46.3) fL RDW Coeff of Shadi (11.5-14.5) % Plt Count (130-400) K/uL MPV (7.4-10.4) fL Immature Gran % (Auto) % Neut % (Auto) % Lymph % (Auto) % [place] % (Auto) % Eos % (Auto) % Baso % (Auto) % Immature Gran # (Auto) (0.00-0.02) K/uL Neut # (Auto) (1.4-6.5) K/uL Lymph # (Auto) (1.2-3.4) K/uL [place] # (Auto) (0.11-0.59) K/uL Eos # (Auto) (0-0.5) K/uL Baso # (Auto) (0-0.2) K/uL Absolute Nucleated RBC (0-0) K/uL Nucleated RBC % (auto) % PT 12.7 H (9.0-12.0) Seconds INR 1.2 H (0.9-1.1) APTT 30.8 (21.0-31.0) Seconds PTT Ratio 1.1 VBG pH (7.36-7.41) VBG pCO2 (38-50) mmHg VBG pO2 mmHg VBG HCO3 mmol/L VBG O2 Saturation % VBG Base Excess mEq/L Barometric Pressure mm/Hg POC Sodium (135-144) mmol/L Sodium 136 (136-145) mmol/L POC Potassium (3.3-5.0) mmol/L Potassium 4.3 (3.5-5.1) mmol/L POC Chloride (101-112) mmol/L Chloride 101 (98-107) mmol/L Carbon Dioxide 24 (21-32) mmol/L POC Total CO2 (24-31) mmol/L Anion Gap 11.0 (3-11) POC Anion Gap (16-25) mmol/L POC BUN (7-18) mg/dl BUN 39 H (7-18) mg/dl Creatinine 1.82 H (0.6-1.4) mg/dl POC Creatinine (0.6-1.3) mg/dl Est Cr Clr Drug Dosing 46.5 ml/min Est GFR ( Amer) 40.0 Est GFR (Non-Af Amer) 34.6 BUN/Creatinine Ratio 21.2 H (10-20) Glucose 191 H (70-99) mg/dl POC Glucose (other) (70-99) mg/dl Lactate (0.4-2.0) mmol/L Calcium 8.4 L (8.5-10.1) mg/dl POC Ioniz Calcium Pepito (1.12-1.32) mmol/l Phosphorus 2.9 (2.5-4.9) mg/dl Magnesium 2.0 (1.8-2.4) mg/dl Total Bilirubin 2.7 H (0.2-1) mg/dl Direct Bilirubin 1.6 H (0-0.2) mg/dl AST 134 H (15-37) U/L ALT 80 H (12-78) U/L Alkaline Phosphatase 173 H (45-117) U/L Troponin I 1.330 H* (0-0.045) ng/ml NT-Pro-B Natriuret Pep 4674 H (0-1800) pg/ml Total Protein 8.3 H (6.4-8.2) gm/dl Albumin 3.2 L (3.4-5.0) gm/dl Globulin 5.1 H (2.5-4.0) gm/dl Albumin/Globulin Ratio 0.6 L (0.9-2) Procalcitonin (0-0.5) ng/ml Urine Color Urine Appearance (Clear) Urine pH (4.5-7.5) Ur Specific [place] (1.000-1.030) Urine Protein (Negative) Urine Glucose (UA) (Negative) Urine Ketones (Negative) Urine Blood (Negative) Urine Nitrite (Negative) Urine Bilirubin (Negative) Urine Urobilinogen (Negative) Ur Leukocyte Esterase (Negative) Urine WBC (Auto) (0-5) /hpf Urine RBC (Auto) (0-4) /hpf U Hyaline Cast (Auto) (0-5) /lpf U Epithel Cells (Auto) (0-5) /lpf Urine Bacteria (Auto) (Negative) Influenza Type A (PCR) (Neg) Influenza Type B (PCR) (Neg) 11/10/19 11/10/19 11/10/19 Range/Units 10:30 10:31 10:31 WBC (4.8-10.8) K/uL RBC (4.7-6.1) M/uL Hgb (14.0-18.0) g/dL POC Hgb 17.0 (14.0-18.0) g/dl Hct (42-52) % POC Hct 50 (42-52) % MCV (80-100) fL MCH (25-34) pg MCHC (32-36) g/dL RDW Std Deviation (36.4-46.3) fL RDW Coeff of Shadi (11.5-14.5) % Plt Count (130-400) K/uL MPV (7.4-10.4) fL Immature Gran % (Auto) % Neut % (Auto) % Lymph % (Auto) % [place] % (Auto) % Eos % (Auto) % Baso % (Auto) % Immature Gran # (Auto) (0.00-0.02) K/uL Neut # (Auto) (1.4-6.5) K/uL Lymph # (Auto) (1.2-3.4) K/uL [place] # (Auto) (0.11-0.59) K/uL Eos # (Auto) (0-0.5) K/uL Baso # (Auto) (0-0.2) K/uL Absolute Nucleated RBC (0-0) K/uL Nucleated RBC % (auto) % PT (9.0-12.0) Seconds INR (0.9-1.1) APTT (21.0-31.0) Seconds PTT Ratio VBG pH 7.41 (7.36-7.41) VBG pCO2 39 (38-50) mmHg VBG pO2 38 mmHg VBG HCO3 24 mmol/L VBG O2 Saturation 70.0 % VBG Base Excess 0 mEq/L Barometric Pressure 733.2 mm/Hg POC Sodium 137 (135-144) mmol/L Sodium (136-145) mmol/L POC Potassium 4.2 (3.3-5.0) mmol/L Potassium (3.5-5.1) mmol/L POC Chloride 103 (101-112) mmol/L Chloride (98-107) mmol/L Carbon Dioxide (21-32) mmol/L POC Total CO2 20 L (24-31) mmol/L Anion Gap (3-11) POC Anion Gap 19.0 (16-25) mmol/L POC BUN 35 H (7-18) mg/dl BUN (7-18) mg/dl Creatinine (0.6-1.4) mg/dl POC Creatinine 1.5 H (0.6-1.3) mg/dl Est Cr Clr Drug Dosing ml/min Est GFR ( Amer) Est GFR (Non-Af Amer) BUN/Creatinine Ratio (10-20) Glucose (70-99) mg/dl POC Glucose (other) 186 H (70-99) mg/dl Lactate 3.6 H* (0.4-2.0) mmol/L Calcium (8.5-10.1) mg/dl POC Ioniz Calcium Pepito 0.97 L (1.12-1.32) mmol/l Phosphorus (2.5-4.9) mg/dl Magnesium (1.8-2.4) mg/dl Total Bilirubin (0.2-1) mg/dl Direct Bilirubin (0-0.2) mg/dl AST (15-37) U/L ALT (12-78) U/L Alkaline Phosphatase (45-117) U/L Troponin I (0-0.045) ng/ml NT-Pro-B Natriuret Pep (0-1800) pg/ml Total Protein (6.4-8.2) gm/dl Albumin (3.4-5.0) gm/dl Globulin (2.5-4.0) gm/dl Albumin/Globulin Ratio (0.9-2) Procalcitonin (0-0.5) ng/ml Urine Color Urine Appearance (Clear) Urine pH (4.5-7.5) Ur Specific [place] (1.000-1.030) Urine Protein (Negative) Urine Glucose (UA) (Negative) Urine Ketones (Negative) Urine Blood (Negative) Urine Nitrite (Negative) Urine Bilirubin (Negative) Urine Urobilinogen (Negative) Ur Leukocyte Esterase (Negative) Urine WBC (Auto) (0-5) /hpf Urine RBC (Auto) (0-4) /hpf U Hyaline Cast (Auto) (0-5) /lpf U Epithel Cells (Auto) (0-5) /lpf Urine Bacteria (Auto) (Negative) Influenza Type A (PCR) (Neg) Influenza Type B (PCR) (Neg) 11/10/19 Range/Units 11:14 WBC (4.8-10.8) K/uL RBC (4.7-6.1) M/uL Hgb (14.0-18.0) g/dL POC Hgb (14.0-18.0) g/dl Hct (42-52) % POC Hct (42-52) % MCV (80-100) fL MCH (25-34) pg MCHC (32-36) g/dL RDW Std Deviation (36.4-46.3) fL RDW Coeff of Shadi (11.5-14.5) % Plt Count (130-400) K/uL MPV (7.4-10.4) fL Immature Gran % (Auto) % Neut % (Auto) % Lymph % (Auto) % [place] % (Auto) % Eos % (Auto) % Baso % (Auto) % Immature Gran # (Auto) (0.00-0.02) K/uL Neut # (Auto) (1.4-6.5) K/uL Lymph # (Auto) (1.2-3.4) K/uL [place] # (Auto) (0.11-0.59) K/uL Eos # (Auto) (0-0.5) K/uL Baso # (Auto) (0-0.2) K/uL Absolute Nucleated RBC (0-0) K/uL Nucleated RBC % (auto) % PT (9.0-12.0) Seconds INR (0.9-1.1) APTT (21.0-31.0) Seconds PTT Ratio VBG pH (7.36-7.41) VBG pCO2 (38-50) mmHg VBG pO2 mmHg VBG HCO3 mmol/L VBG O2 Saturation % VBG Base Excess mEq/L Barometric Pressure mm/Hg POC Sodium (135-144) mmol/L Sodium (136-145) mmol/L POC Potassium (3.3-5.0) mmol/L Potassium (3.5-5.1) mmol/L POC Chloride (101-112) mmol/L Chloride (98-107) mmol/L Carbon Dioxide (21-32) mmol/L POC Total CO2 (24-31) mmol/L Anion Gap (3-11) POC Anion Gap (16-25) mmol/L POC BUN (7-18) mg/dl BUN (7-18) mg/dl Creatinine (0.6-1.4) mg/dl POC Creatinine (0.6-1.3) mg/dl Est Cr Clr Drug Dosing ml/min Est GFR ( Amer) Est GFR (Non-Af Amer) BUN/Creatinine Ratio (10-20) Glucose (70-99) mg/dl POC Glucose (other) (70-99) mg/dl Lactate (0.4-2.0) mmol/L Calcium (8.5-10.1) mg/dl POC Ioniz Calcium Pepito (1.12-1.32) mmol/l Phosphorus (2.5-4.9) mg/dl Magnesium (1.8-2.4) mg/dl Total Bilirubin (0.2-1) mg/dl Direct Bilirubin (0-0.2) mg/dl AST (15-37) U/L ALT (12-78) U/L Alkaline Phosphatase (45-117) U/L Troponin I (0-0.045) ng/ml NT-Pro-B Natriuret Pep (0-1800) pg/ml Total Protein (6.4-8.2) gm/dl Albumin (3.4-5.0) gm/dl Globulin (2.5-4.0) gm/dl Albumin/Globulin Ratio (0.9-2) Procalcitonin (0-0.5) ng/ml Urine Color Yellow Urine Appearance Turbid A (Clear) Urine pH 7.5 (4.5-7.5) Ur Specific [place] 1.012 (1.000-1.030) Urine Protein Negative (Negative) Urine Glucose (UA) Negative (Negative) Urine Ketones Negative (Negative) Urine Blood Trace H (Negative) Urine Nitrite Negative (Negative) Urine Bilirubin Negative (Negative) Urine Urobilinogen Negative (Negative) Ur Leukocyte Esterase 3+ H (Negative) Urine WBC (Auto) >30 H (0-5) /hpf Urine RBC (Auto) 0-4 (0-4) /hpf U Hyaline Cast (Auto) 1-5 (0-5) /lpf U Epithel Cells (Auto) 20-30 H (0-5) /lpf Urine Bacteria (Auto) 4+ H (Negative) Influenza Type A (PCR) (Neg) Influenza Type B (PCR) (Neg) BMP 11/10/19 10:11 Sodium 136 Potassium 4.3 Chloride 101 Carbon Dioxide 24 BUN 39 H Creatinine 1.82 H Glucose 191 H Calcium 8.4 L Cardiac Enzymes 11/10/19 Range/Units 10:11 Troponin I 1.330 H* (0-0.045) ng/ml Liver Function 11/10/19 Range/Units 10:11 Total Bilirubin 2.7 H (0.2-1) mg/dl Direct Bilirubin 1.6 H (0-0.2) mg/dl AST 134 H (15-37) U/L ALT 80 H (12-78) U/L Alkaline Phosphatase 173 H (45-117) U/L Albumin 3.2 L (3.4-5.0) gm/dl Urine 11/10/19 Range/Units 11:14 Urine Color Yellow Urine Appearance Turbid A (Clear) Urine pH 7.5 (4.5-7.5) Ur Specific [place] 1.012 (1.000-1.030) Urine Protein Negative (Negative) Urine Glucose (UA) Negative (Negative) Diagnostic Findings CT OF THE HEAD WITHOUT CONTRAST CLINICAL HISTORY: Fall. Headache. FINDINGS: No acute intracranial hemorrhage, midline shift or mass effect is present. The ventricular system is unremarkable. The basilar cisterns are patent. White matter hypodensity is unchanged and suggests small vessel disease. No extra-axial collections are present. There are no findings to suggest acute dural sinus thrombosis or acute territorial infarct. No significant calvarial abnormalities are present. Visualized portions of the sinuses and mastoid air cells are clear. IMPRESSION: 1. No acute intracranial findings. No change in appearance of the brain. 2. No calvarial fracture. CT OF THE ABDOMEN AND PELVIS WITHOUT CONTRAST CLINICAL HISTORY: sepsis, uti, patiño catheter FINDINGS: This exam is compromised by motion artifact. The liver is cirrhotic. No lesions are identified although sensitivity is diminished on this unenhanced exam. The gallbladder surgically absent. There is no peripancreatic infiltration. Unenhanced images of the spleen, adrenal glands and left kidney are unremarkable. A few right renal lesions were shown to likely reflect cysts on prior contrast enhanced exam. There is no hydronephrosis or hydroureter. There are no ureteral calculi. A Patiño balloon is present within the bladder. The bladder is collapsed. There is no evidence for a bowel obstruction. No pneu matosis, free air or portal venous gas is present. The appendix is normal. There is no lymphadenopathy. Right hip arthroplasty is noted. Trace pneumobilia is again noted. IMPRESSION: 1. No urinary calculi or hydronephrosis. 2. Exam compromised by motion artifact. No acute findings on unenhanced exam. 3. Cirrhosis. 4. Patiño balloon within the bladder which is collapsed. XR chest 1V portable CLINICAL HISTORY: Sepsis. FINDINGS: Lung volumes are normal. There is no pneumothorax or pleural effusion. There is pulmonary vascular congestion without overt pulmonary edema. Moderate cardiomegaly is unchanged. No consolidation is identified. IMPRESSION: Pulmonary vascular congestion. Stable cardiomegaly. Medications Administered Vanc Cefepime APAP 1000mg IV NSS x 2 L received Dilt 15mg prehospital and BP dropped into the 80s systolic, improved with IVF. Code Status & VTE Plan VTE Prophylaxis Plan VTE Prophylaxis will be ordered: Yes
[2019-11-10] MEDS ORDERED: FUROSEMIDE 40 MG/4 ML VIAL IV STA (14:30)
[2019-11-10] MEDS ORDERED: FUROSEMIDE 40 MG/4 ML VIAL IV ONE (14:32)
[2019-11-10] MEDS ORDERED: CARBOHYDRATES FOR HYPOGLYCEMIA PO PRN (15:51)
[2019-11-10] MEDS ORDERED: GLUCOSE 10 TABS/TUBE PO PRN (15:51)
[2019-11-10] MEDS ORDERED: METOPROLOL SUCC 50MG EXT REL TAB PO SCH (15:51)
[2019-11-10] MEDS ORDERED: GLUCOSE 40% GEL 15 GM TUBE PO PRN (15:51)
[2019-11-10] MEDS ORDERED: GLUCAGON FOR INJ 1 MG VIAL SQ PRN (15:51)
[2019-11-10] MEDS ORDERED: DEXTROSE 50% 50 ML SYRINGE IV PRN (15:51)
[2019-11-10] MEDS: HYDROCODONE/ACETAMOPHEN 5/325MG TAB PO PRN (16:49)
--- NOTE | 2019-11-10 16:58 | Pharmacy Report ---
Pharmacy Abx Initial Consult - Date of Service November 10, 2019 - Pharmacy Dosing Scope Date of Consult: 11/10/19 Consultation requested by: Dr. Owens Pharmacy is consulted to initiate Vancomycin IV dosing therapy, order appropriate labs and adjust drug dose/frequency. - Subjective The patient is a 79 year old M admitted on 11/10/19 12:52. - Objective Height: 6 ft Weight: 143.8 kg Vital Signs (Past 12hrs): Vital Signs Temp Pulse Pulse Resp BP BP Pulse Ox 11/10/19 16:25 89 20 95/58 L 93 11/10/19 15:55 97 H 20 105/66 92 11/10/19 15:40 89 20 112/71 93 11/10/19 15:25 89 20 91/56 L 95 11/10/19 15:09 36.9 C 105 H 20 108/67 93 11/10/19 14:00 122 H 25 H 122/66 94 11/10/19 13:57 116 H 20 139/88 94 11/10/19 13:50 103 H 31 H 132/84 95 11/10/19 13:00 118 H 20 119/65 94 11/10/19 12:54 127 H 21 116/63 93 11/10/19 12:30 124 H 25 H 130/89 94 11/10/19 12:15 120 H 27 H 119/82 93 11/10/19 12:12 132 H 18 117/77 94 11/10/19 11:45 123 H 23 124/73 93 11/10/19 11:30 38.8 C H 135 H 21 126/79 93 11/10/19 11:15 132 H 24 131/80 92 11/10/19 11:01 130 H 120/73 92 11/10/19 10:45 133 H 27 H 126/67 92 11/10/19 10:30 123 H 23 101/51 L 91 11/10/19 10:26 36.4 C L 131 H 24 86/54 L 92 11/10/19 10:22 136 H 24 92 11/10/19 10:16 132 H 26 H 91/47 L 92 11/10/19 10:12 123 H 25 H 86/54 L 92 11/10/19 10:07 136 H 28 H 90 11/10/19 10:03 124 H 26 H 175/163 H 88 L Lab Results (24hrs): Laboratory Tests (24 Hours) 11/10/19 11/10/19 11/10/19 10:11 10:11 10:11 WBC 21.18 H Neut # (Auto) 19.80 H Creatinine 1.82 H Est Cr Clr Drug Dosing 46.5 Procalcitonin 6.33 H Micro Results: 11/10/19 11:14 Urine Culture - Pending Urine,Straight Cath 11/10/19 10:31 Aerobic Blood Culture - Pending Blood Anaerobic Blood Culture - Pending 11/10/19 10:11 Aerobic Blood Culture - Pending Blood Anaerobic Blood Culture - Pending - Risk Factors for Resistance * Chronic indwelling patiño cath - Assessment & Plan Assessment 79 year old M with Sepsis 2/2 CAUTI initiated on IV Vanco + Cefepime Scr slightly elevated - but somewhat c/w 06/2019 admission. Morbid obesity - at risk for vanco accumulation therefore will dose at lower mg/kg Plan Vancomycin IV * Estimated PK Parameters: Vd 0.55 L/kg, Lester 0.041 hr-1, t1/2 17 hr * Loading dose: 2,750 mg (20 mg/kg) * Maintenance dose: 1,500 mg IV (10 mg/kg) every 18 hours * Goal trough level for sepsis : 15 to 20 mcg/mL * Trough level ordered for 11/12/19 @ 1530 * A less than traditional dose and/or extended dosing interval has been selected due to likelihood of drug accumulation in obese patient Cefepime: * Not per pharm consult - but dose is appropriately adjusted for [facility] Pharmacy will continue to follow and will adjust dose/frequency as necessary. Thank you.
[2019-11-10] MEDS: INSULIN ASPART 100 UNITS/ML 3 ML PEN SC SCH ×2 (17:08→22:19)
[2019-11-10] MEDS ORDERED: levETIRAcetam 500 MG TAB PO SCH (21:00)
[2019-11-10] MEDS ORDERED: LACTOBACILLUS ACIDOPHILUS (FLORANEX) TAB PO SCH (21:00)
[2019-11-10] MEDS ORDERED: PANTOprazole 40 MG TAB PO SCH (21:00)
[2019-11-10] MEDS ORDERED: INSULIN GLARGINE SOLOSTAR 100 UNITS/ML 3 ML PEN SC SCH (21:00)
[2019-11-10] MEDS ORDERED: HEPARIN SOD 5,000 UNIT/0.5 ML VIAL SQ SCH (22:00)
[2019-11-10] MEDS: PANTOprazole 40 MG TAB PO SCH (22:18)
[2019-11-10] MEDS: levETIRAcetam 500 MG TAB PO SCH (22:18)
[2019-11-10] MEDS: LACTOBACILLUS ACIDOPHILUS (FLORANEX) TAB PO SCH (22:19)
[2019-11-10] MEDS: INSULIN GLARGINE SOLOSTAR 100 UNITS/ML 3 ML PEN SC SCH (22:20)
--- NOTE | 2019-11-10 23:06 | Electrocardiogram Report ---
Test Reason : Blood Pressure : / mmHG Vent. Rate : 126 BPM Atrial Rate : 122 BPM P-R Int : 000 ms QRS Dur : 090 ms QT Int : 350 ms P-R-T Axes : 000 269 039 degrees QTc Int : 506 ms Atrial fibrillation with rapid ventricular response Right superior axis deviation Nonspecific ST abnormality Abnormal ECG When compared with ECG of 20-JUN-2019 08:19, Vent. rate has increased BY 56 BPM T wave inversion no longer evident in Lateral leads Confirmed by Negrito Greenwood ([id number]) on 11/10/2019 11:06:06 PM Referred By: Confirmed By:Negrito Greenwood
[2019-11-11] MEDS: HYDROCODONE/ACETAMOPHEN 5/325MG TAB PO PRN ×3 (02:32→20:06)
[2019-11-11] MEDS: HEPARIN SOD 5,000 UNIT/0.5 ML VIAL SQ SCH ×3 (02:34→17:03)
[2019-11-11] MEDS: VANCOMYCIN HCL 1,500 MG in SODIUM CHLORIDE 0.9% 500 ML IV SCH ×2 (04:13→21:24)
[2019-11-11 07:42] LABS: Estimated Average Glucose 157 mg/dl; Hemoglobin A1C 7.1 % (4.5-5.6)
[2019-11-11 07:45] LABS: Albumin Level 2.5 gm/dl (3.4-5.0); BUN Creatinine Ratio 23.1 (10-20); Bilirubin Direct 1.4 mg/dl (0-0.2); Calcium 8.2 mg/dl (8.5-10.1); Creatinine Clr Calc Pharmacy 56.5 ml/min; Est GFR (African American) 48.2; Est GFR (Non-African American) 41.6; Magnesium 2.1 mg/dl (1.8-2.4); Potassium 3.8 mmol/L (3.5-5.1)
[2019-11-11 07:50] LABS: Bilirubin,Total 2.5 mg/dl (0.2-1); Total Protein 7.1 gm/dl (6.4-8.2)
[2019-11-11] MEDS: CEFEPIME 2,000 MG in SYRINGE 7.5 ML IV SCH (07:55)
[2019-11-11 07:56] LABS: Hematocrit (blood only) 44.2 % (42-52); Hemoglobin 14.2 g/dL (14.0-18.0); Mean Corpuscular Hemoglobin 27.1 pg (25-34); Mean Corpuscular Hgb Conc 32.1 g/dL (32-36); Mean Corpuscular Volume 84.4 fL (80-100); Mean Platelet Volume 10.6 fL (7.4-10.4); Platelet Count 193 K/uL (130-400); RDW Coefficient of Variation 19.2 % (11.5-14.5); RDW Standard Deviation 59.7 fL (36.4-46.3); Red Blood Count 5.24 M/uL (4.7-6.1); White Blood Count 13.46 K/uL (4.8-10.8)
[2019-11-11] MEDS: METOPROLOL SUCC 50MG EXT REL TAB PO SCH (07:58)
[2019-11-11] MEDS: LACTOBACILLUS ACIDOPHILUS (FLORANEX) TAB PO SCH ×2 (07:59→21:12)
[2019-11-11] MEDS: PANTOprazole 40 MG TAB PO SCH ×2 (08:00→21:14)
[2019-11-11] MEDS: levETIRAcetam 500 MG TAB PO SCH ×2 (08:00→21:13)
[2019-11-11] MEDS: FINASTERIDE 5 MG TAB PO SCH (08:01)
[2019-11-11] MEDS: ASPIRIN 81 MG ECTAB PO SCH (08:01)
[2019-11-11] MEDS: INSULIN ASPART 100 UNITS/ML 3 ML PEN SC SCH ×4 (08:27→21:14)
[2019-11-11] MEDS: INSULIN GLARGINE SOLOSTAR 100 UNITS/ML 3 ML PEN SC SCH ×2 (08:28→21:14)
[2019-11-11] MEDS ORDERED: ASPIRIN 81 MG ECTAB PO SCH (09:00)
[2019-11-11] MEDS ORDERED: FINASTERIDE 5 MG TAB PO SCH (09:00)
[2019-11-11] MEDS ORDERED: PERFLUTREN LIPID MICROSPHERE (DEFINITY) IV ONE (11:12)
--- NOTE | 2019-11-11 16:46 | Cardiology Consultation ---
Date of Consultation November 11, 2019 Assessment & Plan (1) Atrial fibrillation with rapid ventricular response: (2) Catheter-associated urinary tract infection: (3) Open wound of scrotum: (4) Stage II pressure ulcer of buttock: (5) Acute hypoxemic respiratory failure: (6) Chronic venous insufficiency: (7) Chronic diastolic heart failure: (8) Peripheral arterial disease: Currently the patient is responded well to medical therapy. His Cardizem drip is been weaned off and his rates have remained steady in the 80s. Given the fact that he is received the appropriate treatment I would suspect that his ventricular rates will remain stable. We will continue to follow heart rates and will continue his outpatient dose of metoprolol. History of Present Illness Reason for Consultation: Atrial fibrillation with rapid ventricular response Requesting Physician: Dr. Gonzalez Attending Physician: Marisol Daly, DO History of Present Illness I saw Mr. Deleon in consultation today November 11, 2019. He is a medically complex 79-year-old gentleman who is very well-known to our cardiology practice. He presented to [facility] on 11/10/2019 with complaints of weakness. Upon presentation he was found to be septic from his chronic indwelling Baires and his chronic atrial fibrillation that is normally rate controlled was tachycardic into the 170s. He was initiated on appropriate medical therapy admitted to telemetry. He was started on a Cardizem drip and has been able to been weaned as he received fluids. Currently the patient's main complaint is that of chronic scrotal pain. Past medical history: 1. Chronic diastolic heart failure preserved systolic function 2. Chronic rate controlled atrial fibrillation. - Anticoagulation discontinued due to large volume bleeding related to large perineal/scrotal vascular malformation as well as history of small intracranial bleed secondary to trauma 3. Morbid obesity 4. HTN - controlled 5. Dyslipidemia goal LDL less than 100mg/dL - controlled 6. H/o mechanical fall with resultant head trauma, small frontal parenchymal hemorrhage, and suboccipital hematoma. - no recurrent falls over the last 6 months 7. JUAN MANUEL - intolerant to CPAP 8. Insulin resistance/ Metabolic syndrome Allergies Allergy/AdvReac Type Severity Reaction Status Date / Time metronidazole Allergy Severe see below Verified 11/10/19 10:21 amoxicillin Allergy Intermediate rash Verified 11/10/19 10:21 Home Medications Home Medications Medication Instructions Recorded Confirmed Type ferrous sulfate 325 mg PO BID 06/16/18 11/10/19 History finasteride 5 mg PO DAILY 06/16/18 11/10/19 History metformin 500 mg PO QAM 06/16/18 11/10/19 History metoprolol succinate 200 mg PO DAILY 06/16/18 11/10/19 History pantoprazole 40 mg PO BID 06/16/18 11/10/19 History levetiracetam 500 mg PO BID 03/16/19 11/10/19 History Januvia 50 mg PO DAILY 06/17/19 11/10/19 History Lactobacillus acidophilus 1 tab PO BID 06/17/19 11/10/19 History hydrocodone-acetaminophen 1 tab PO Q8H PRN 06/17/19 11/10/19 History potassium chloride 10 meq PO DAILY 06/17/19 11/10/19 History aspirin [Aspirin Low Dose] 81 mg PO DAILY 11/10/19 11/10/19 History torsemide 40 mg PO DAILY PRN 11/10/19 11/10/19 History Patient History Medical History Acquired buried penis (Chronic) Acquired claw toe of right foot (Acute) Acute urinary retention (Acute) Atrial fibrillation with RVR (Acute) Barretts esophagus Benign hypertension (Chronic) BPH without urinary obstruction (Chronic) Callus (Acute) Chronic a-fib Chronic diastolic CHF (congestive heart failure) (Chronic) Chronic indwelling Baires catheter (Chronic) Chronic venous insufficiency (Chronic) Complicated UTI (urinary tract infection) (Acute) Diabetes mellitus with diabetic polyneuropathy (Acute) 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, with fat layer exposed (Acute) Diverticulosis of colon (without mention of hemorrhage) (Chronic) DM (diabetes mellitus), type 2, uncontrolled w/ophthalmic complication (Chronic) Esophageal candidiasis (Acute) Exertional dyspnea (Chronic) Gastric ulcer with hemorrhage but without obstruction (Chronic) H/O Clostridium difficile infection (Chronic) Hemangioma of skin (Chronic) History of chronic atrial fibrillation (Chronic) Hypertension Hypoxia ICH (intracerebral hemorrhage) (Chronic) Morbid obesity (Chronic) Open wound of scrotum JUAN MANUEL (obstructive sleep apnea) (Chronic) Peripheral arterial disease Rhabdomyolysis (Acute) Scrotal varicose veins (Chronic) Skin ulcer of left foot including toes (Acute) Symptomatic anemia (Chronic) Urinary retention (Chronic) Surgical History History of total replacement of right hip (Chronic) S/P cholecystectomy (Chronic) S/P tonsillectomy and adenoidectomy (Chronic) Family History Other No significant family history Social History Preferred Language: Pashto 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 Ability: Effective Safe Deposit Box Rental Clerk Required: No Beliefs That Will Affect Care: None marital status: Current Living Situation: Spouse Current Living Situation Comment: Home with spouse Other Information That Helps Us Care for You: No Feels Safe at Home: Yes Safety Concerns: Feels Safe At This Time Smoking Status: Former smoker Do You Dip or Chew Tobacco: No ; Second Hand Exposure: No ; Tobacco Cessation Education Requested by Patient: No Hx Alcohol Use: No Hx Substance Use: No Review of Systems Review of Systems: All systems reviewed & are unremarkable except as noted in HPI & below Physical Exam Physical Exam: General: Awake, alert and oriented x 3. No acute distress. HEENT: Normocephalic, atraumatic. Pupils equal, round and reactive to light and accommodation. Extraocular muscles are intact. Anicteric sclera. Moist mucous membranes. Neck: No JVD. No bruit. Cardiovascular: irregularly irregular, unable to appreciate murmur, rub or gallop. Pulmonary: Clear to auscultation bilaterally. No rales, rhonchi, or wheezing. Abdomen: Bowel sounds x 4, soft. No rebound, guarding or tenderness. No organomegaly. Extremities: No clubbing, cyanosis or edema. +2 pedal pulses bilaterally. Skin: Warm and dry. Results & Data ([facility]) Vital Signs (Past 12 Hours) Vital Signs Temp Pulse Pulse Resp BP Pulse Ox 11/11/19 15:04 36.8 C 84 18 110/66 91 11/11/19 11:28 36.9 C 85 18 114/69 97 11/11/19 08:00 88 11/11/19 07:50 36.7 C 95 H 18 114/70 96
--- NOTE | 2019-11-11 18:20 | Hospitalist Progress Note ---
Date of Service November 11, 2019 Assessment & Plan (1) Gram-negative bacteremia: Cont empiric Vanc/Cefepime pending culture results. ID consulted. (2) Catheter-associated urinary tract infection: Cont broad abx pending clinical improvement and culture result; recollection of sample recommended. Baires exchange per patient and request. (3) Hypoxia: Likely 2/2 increased metabolic demand in sepsis and acute fluid overload after sepsis resuscitation efforts. Lasix yesterday and none today bc of persistent CIERRA. Will restart home torsemide in am. (4) Sepsis: resuscitated (5) Cirrhosis of liver: outpatient workup per GI (6) Acute diastolic heart failure: Improved, restart torsemide in am. (7) Demand ischemia: No chest pain or evidence of acute ischemia on EKG. Trend trop. Likely related to demand ischemia in setting of sepsis. (8) Atrial fibrillation with rapid ventricular response: 2/2 sepsis. Improved HR on the diltiazem drip which was stopped today. Cont home Toprol XL Anticoagulation avoided in the past 2/2 a bleeding hemangioma on his scrotum. However, per this has healed significantly, so it is possible to reconsider anticoagulation. Would defer this to Cardiology. (9) CIERRA (acute kidney injury): Persistent in setting of sepsis with improvement. Trend BMP in am. (10) Leukocytosis: with left shift. Likely 2/2 infection. Improved. (11) Morbid obesity: (12) Diabetes mellitus with diabetic polyneuropathy: Hold home medications. Cont basal/bolus insulin at stress dose with carb coverage. Blood sugar checks ACHS; currently at goal (13) Barretts esophagus: cont home PPI (14) Seizures: cont home Keppra, seizure precautions (15) DVT prophylaxis: Heparin Full Code as confirmed with patient on admission Dispo-to [facility] Admission and Anticipated Discharge Date Admission Date: November 10, 2019 Subjective Feels well and states he is ready to go home Requests that his Baires be changed Blood growing GNB but clinically appears improved and has remained afebrile. Decreased amount of oxygen supplementation. Review of Systems Review of Systems: All systems reviewed & are unremarkable except as noted in Subjective Physical Exam Physical Exam: CONSTITUTIONAL: obese, vitals as above, generally well- appearing EYES: normal conjunctivae, no scleral icterus ENT: external ear and nose normal, oropharynx clear, MMM NECK: trachea midline RESPIRATORY: crackles have resolved and he has clear lungs to auscultation bilaterally with good air flow. CARDIOVASCULAR: reg rate and irregular rhythm, S1 and 2 heard without murmurs, gallops or rubs, no JVD, no peripheral edema, purplish skin coloration in lower extremities bilaterally consistent with chronic venous insufficiency GASTROINTESTINAL: soft, nontender, protuberant abdomen, +hernia present- nontender and reducible, no guarding or distension MUSCULOSKELETAL: generalized weakness. No head trauma SKIN: warm and dry, erythema in skin folds and on presacral region. NEUROLOGIC: No facial palsy, no dysarthria. CN 2-12 grossly intact, no sensory deficit, normal cognition, normal speech, appears to be at baseline mental status. Unable to move his legs around much 2/2 weakness and physical deconditioning PSYCHIATRIC: alert cooperative and oriented to person, place and time. Results & Data Results & Data ([facility]) Vital Signs (Past 12 Hours) Vital Signs Temp Pulse Pulse Resp BP Pulse Ox 11/11/19 15:04 36.8 C 84 18 110/66 91 11/11/19 11:28 36.9 C 85 18 114/69 97 11/11/19 08:00 88 11/11/19 07:50 36.7 C 95 H 18 114/70 96 Laboratory Results Short CBC 11/11/19 Range/Units 07:02 WBC 13.46 H (4.8-10.8) K/uL Hgb 14.2 (14.0-18.0) g/dL Hct 44.2 (42-52) % Plt Count 193 (130-400) K/uL BMP 11/11/19 07:02 Sodium 136 Potassium 3.8 Chloride 102 Carbon Dioxide 27 BUN 36 H Creatinine 1.56 H Glucose 119 H Calcium 8.2 L Cardiac Enzymes 11/10/19 11/11/19 Range/Units 23:11 07:02 Troponin I 4.380 H* 2.800 H* (0-0.045) ng/ml Liver Function 11/11/19 Range/Units 07:02 Total Bilirubin 2.5 H (0.2-1) mg/dl Direct Bilirubin 1.4 H (0-0.2) mg/dl AST 64 H (15-37) U/L ALT 54 (12-78) U/L Alkaline Phosphatase 117 (45-117) U/L Albumin 2.5 L (3.4-5.0) gm/dl Urine 11/11/19 Range/Units 21:00 Urine Color Dark Yellow Urine Appearance Clear (Clear) Urine pH 5.5 (4.5-7.5) Ur Specific [place] 1.020 (1.000-1.030) Urine Protein Trace H (Negative) Urine Glucose (UA) Negative (Negative) Medications Administered Current Inpatient Medications Acetaminophen (Tylenol) 650 mg PO Q4H PRN PRN Reason: Pain or Fever Stop: 12/10/19 12:50 Hydrocodone Bitart/Acetaminophen ([place] 5/325) 1 tab PO Q8H PRN PRN Reason: Pain Stop: 11/24/19 15:57 Last Admin: 11/11/19 20:06 Dose: 1 tab Documented by: Aspirin (Ecotrin Ectab) 81 mg PO DAILY@0800 MARIYA Stop: 12/11/19 07:59 Last Admin: 11/11/19 08:01 Dose: 81 mg Documented by: Dextrose (Dextrose 50%) 25 - 50 ml IV UD PRN; Protocol PRN Reason: Hypoglycemia Protocol Stop: 12/10/19 15:50 Finasteride (Proscar) 5 mg PO DAILY@0800 MARIYA Stop: 12/11/19 07:59 Last Admin: 11/11/19 08:01 Dose: 5 mg Documented by: Glucagon (Glucagen) 1 mg SQ UD PRN; Protocol PRN Reason: Hypoglycemia Protocol Stop: 12/10/19 15:50 Glucose (Dex4 Glucose) 4 - 8 tabs PO UD PRN; Protocol PRN Reason: Hypoglycemia Protocol Stop: 12/10/19 15:50 Glucose (Glucose 40%) 15 - 30 gm PO UD PRN; Protocol PRN Reason: Hypoglycemia Protocol Stop: 12/10/19 15:50 Heparin Sodium (Porcine) (Heparin Sodium (Porcine)) 5,000 units SQ Q8H MARIYA Stop: 12/11/19 00:00 Last Admin: 11/11/19 17:03 Dose: 5,000 units Documented by: Vancomycin HCl 1,500 mg/ (Sodium Chloride) 530 mls @ 200 mls/hr IV Q18H MARIYA Stop: 11/25/19 03:59 Last Admin: 11/11/19 21:24 Dose: 200 mls/hr Documented by: Cefepime HCl 2,000 mg/ Syringe 20 mls @ 5 mls/min IV Q24H [facility]; Protocol Stop: 11/21/19 07:59 Last Admin: 11/11/19 07:55 Dose: 5 mls/min Documented by: Insulin Aspart (Novolog Flexpen) 0 units SC ACHS [facility] Stop: 12/10/19 16:29 Last Admin: 11/11/19 21:14 Dose: Not Given Documented by: Insulin Glargine (Lantus Solostar Pen) 20 units SC BID@ [facility] Stop: 12/10/19 19:59 Last Admin: 11/11/19 21:14 Dose: 20 units Documented by: Lactobacillus Acidophilus (Floranex) 4 tab PO BID@ [facility] Stop: 12/10/19 19:59 Last Admin: 11/11/19 21:12 Dose: 4 tab Documented by: Levetiracetam (Keppra) 500 mg PO BID@ [facility] Stop: 12/10/19 19:59 Last Admin: 11/11/19 21:13 Dose: 500 mg Documented by: Metoprolol Succinate (Toprol Xl) 200 mg PO DAILY@0800 [facility] Stop: 12/11/19 07:59 Last Admin: 11/11/19 07:58 Dose: 200 mg Documented by: Miscellaneous (Carbohydrates For Hypoglycemia) 15 - 30 gm PO UD PRN PRN Reason: Hypoglycemia Protocol Stop: 12/10/19 15:50 Miscellaneous Information (Consult) 1 ea N/A UD PRN PRN Reason: Consult Stop: 12/10/19 10:49 Pantoprazole Sodium (Protonix) 40 mg PO BID@ [facility] Stop: 12/10/19 19:59 Last Admin: 11/11/19 21:14 Dose: 40 mg Documented by: Torsemide (Demadex) 40 mg PO DAILY [facility] Stop: 12/12/19 08:59 (1) Sepsis Sepsis acute organ dysfunction status: with acute organ dysfunction Sepsis type: sepsis due to unspecified organism Severe sepsis acute organ dysfunction type: unspecified Severe sepsis shock status: without septic shock Qualified Code(s): A41.9 - Sepsis, unspecified organism; R65.20 - Severe sepsis without septic shock
[2019-11-11 21:39] LABS: Appearance Urine Clear (Clear); Bacteria Urine Automated Negative (Negative); Bilirubin Urine Negative (Negative); Blood Urine Trace (Negative); Color Urine Dark Yellow; Epithelial Cell Urine Auto >30 /lpf (0-5); Glucose Urine UA Negative (Negative); Ketones Urine Negative (Negative); Leukocyte Esterase Urine 2+ (Negative); Nitrite Urine Negative (Negative); Protein Urine Trace (Negative); RBC Urine Automated 0-4 /hpf (0-4); Urobilinogen Urine Negative (Negative); WBC Urine Automated >30 /hpf (0-5); pH Urine 5.5 (4.5-7.5)
--- NOTE | 2019-11-11 23:42 | Electrocardiogram Report ---
Test Reason : Blood Pressure : / mmHG Vent. Rate : 090 BPM Atrial Rate : 111 BPM P-R Int : 000 ms QRS Dur : 098 ms QT Int : 388 ms P-R-T Axes : 000 -57 090 degrees QTc Int : 474 ms Atrial fibrillation Left anterior fascicular block Nonspecific ST and T wave abnormality Prolonged QT Abnormal ECG When compared with ECG of 10-NOV-2019 10:20, Nonspecific T wave abnormality now evident in Anterolateral leads Confirmed by Negrito Greenwood ([id number]) on 11/11/2019 11:42:19 PM Referred By: REFERRED SELF Confirmed By:Negrito Greenwood
[2019-11-12] MEDS: HEPARIN SOD 5,000 UNIT/0.5 ML VIAL SQ SCH ×4 (00:24→23:51)
[2019-11-12] MEDS: ACETAMINOPHEN 325 MG TAB PO PRN ×3 (02:20→18:36)
[2019-11-12] MEDS: HYDROCODONE/ACETAMOPHEN 5/325MG TAB PO PRN ×4 (04:08→23:51)
[2019-11-12 07:07] LABS: Hematocrit (blood only) 41.3 % (42-52); Hemoglobin 13.3 g/dL (14.0-18.0); Mean Corpuscular Hgb Conc 32.2 g/dL (32-36); Mean Corpuscular Volume 83.9 fL (80-100); Mean Platelet Volume 10.5 fL (7.4-10.4); Platelet Count 184 K/uL (130-400); RDW Coefficient of Variation 19.4 % (11.5-14.5); RDW Standard Deviation 58.9 fL (36.4-46.3); Red Blood Count 4.92 M/uL (4.7-6.1)
[2019-11-12 07:35] LABS: BUN Creatinine Ratio 24.6 (10-20); Calcium 8.2 mg/dl (8.5-10.1); Creatinine Clr Calc Pharmacy 69.6 ml/min; Est GFR (African American) 61.9; Est GFR (Non-African American) 53.4; Magnesium 2.4 mg/dl (1.8-2.4); Potassium 3.8 mmol/L (3.5-5.1)
[2019-11-12] MEDS: LACTOBACILLUS ACIDOPHILUS (FLORANEX) TAB PO SCH ×2 (07:48→20:41)
[2019-11-12] MEDS: ASPIRIN 81 MG ECTAB PO SCH (07:48)
[2019-11-12] MEDS: INSULIN ASPART 100 UNITS/ML 3 ML PEN SC SCH ×4 (07:49→20:42)
[2019-11-12] MEDS: levETIRAcetam 500 MG TAB PO SCH ×2 (07:50→20:41)
[2019-11-12] MEDS: INSULIN GLARGINE SOLOSTAR 100 UNITS/ML 3 ML PEN SC SCH ×2 (07:50→20:40)
[2019-11-12] MEDS: CEFEPIME 2,000 MG in SYRINGE 7.5 ML IV SCH ×3 (07:51→23:50)
[2019-11-12] MEDS: METOPROLOL SUCC 50MG EXT REL TAB PO SCH (07:51)
[2019-11-12] MEDS: PANTOprazole 40 MG TAB PO SCH ×2 (07:51→20:42)
[2019-11-12] MEDS: FINASTERIDE 5 MG TAB PO SCH (07:51)
[2019-11-12] MEDS: TORSEMIDE 20 MG TAB PO SCH (07:52)
--- NOTE | 2019-11-12 10:36 | Ultrasound Report ---
US liver HISTORY: 79 years-old Male elevated LFTs, cirrhotic liver on imaging cirrhotic liver disease. Elevat ed LFTs COMPARISON: CT abdomen and pelvis 11/10/2019 TECHNIQUE: Multiple real-time sonographic images of the abdominal right upper quadrant were obtained assessing grayscale appearance and color flow FINDINGS: Study is limited secondary to patient body habitus and condition. The patient was unable to change po sitions during the study secondary to reported low back pain. Cirrhotic morphology of the liver. No hepatic mass lesion or intrahepatic biliary ductal dilation rhys ntified. No ascites. Common bile duct is normal, 5 mm. Cholecystectomy. The pancreas is mostly obscur ed. Diffuse cortical thinning is noted throughout the right kidney. Cyst of the inferior pole right k idney measures 2.7 x 2.9 x 2.9 cm. No hydronephrosis. IMPRESSION: 1. Limited exam as above. 2. Cirrhotic morphology of the liver 3. Cholecystectomy 4. No biliary ductal dilation. ACT 112: Negative or not required by law. The above report was generated using voice recognition software. It may contain grammatical, syntax o r spelling errors. Electronically signed by: Brandin Kruse M.D. 11/12/2019 10:35 AM
--- NOTE | 2019-11-12 13:20 | Infectious Disease Consult ---
Date of Consultation November 12, 2019 Assessment & Plan (1) Gram negative sepsis: continue cefepime for now, will repeat blood cultures. Clinically improved, would suggest 14 days treatment for suspect urine source Bsi (urine culture > 3 organisms). can change to po cefdinir 300mg po bid x 14 days upon d/c. unclear significance of rare S. aureus in groin, on vanco, continue for now. hopefully can stop gpc treatment upon d/c. No contraindication to d/c from ID standpoint when otherwise stable. (2) Urinary tract infection: (3) Leukocytosis: History of Present Illness Attending Physician: Nacho Ochoa MD pt admitted with fevers at home. In ER UA > 30 wbc, +4 bacteria +3LE. COVID and flu negative. CT abd/ pelvis negative, cxr negative, urine culture > 3 organisms, has patiño. blood culture growing martinez sensitive K. pneumo, no repeat culture to date. groin culture growing rare S. aureus. He is on vanco and cefepime and tolerating well. afebrile since admission. states he is feeling significantly better since admission, no abd pain, no n/v/d. no cp, sob, cough. procalcitonin 6. creat 1.2 Initial wbc 21, now 7. ID consulted due to + blood cultures. asking to go home. Allergies Allergy/AdvReac Type Severity Reaction Status Date / Time metronidazole Allergy Severe see below Verified 11/10/19 10:21 amoxicillin Allergy Intermediate rash Verified 11/10/19 10:21 Home Medications Home Medications Medication Instructions Recorded Confirmed Type ferrous sulfate 325 mg PO BID 06/16/18 11/10/19 History finasteride 5 mg PO DAILY 06/16/18 11/10/19 History metformin 500 mg PO QAM 06/16/18 11/10/19 History metoprolol succinate 200 mg PO DAILY 06/16/18 11/10/19 History pantoprazole 40 mg PO BID 06/16/18 11/10/19 History levetiracetam 500 mg PO BID 03/16/19 11/10/19 History Januvia 50 mg PO DAILY 06/17/19 11/10/19 History Lactobacillus acidophilus 1 tab PO BID 06/17/19 11/10/19 History hydrocodone-acetaminophen 1 tab PO Q8H PRN 06/17/19 11/10/19 History potassium chloride 10 meq PO DAILY 06/17/19 11/10/19 History aspirin [Aspirin Low Dose] 81 mg PO DAILY 11/10/19 11/10/19 History torsemide 40 mg PO DAILY PRN 11/10/19 11/10/19 History Patient History Medical History Acquired buried penis (Chronic) Acquired claw toe of right foot (Acute) Acute urinary retention (Acute) Atrial fibrillation with RVR (Acute) Barretts esophagus Benign hypertension (Chronic) BPH without urinary obstruction (Chronic) Callus (Acute) Chronic a-fib Chronic diastolic CHF (congestive heart failure) (Chronic) Chronic indwelling Patiño catheter (Chronic) Chronic venous insufficiency (Chronic) Complicated UTI (urinary tract infection) (Acute) Diabetes mellitus with diabetic polyneuropathy (Acute) 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, with fat layer exposed (Acute) Diverticulosis of colon (without mention of hemorrhage) (Chronic) DM (diabetes mellitus), type 2, uncontrolled w/ophthalmic complication (Chronic) Esophageal candidiasis (Acute) Exertional dyspnea (Chronic) Gastric ulcer with hemorrhage but without obstruction (Chronic) H/O Clostridium difficile infection (Chronic) Hemangioma of skin (Chronic) History of chronic atrial fibrillation (Chronic) Hypertension Hypoxia ICH (intracerebral hemorrhage) (Chronic) Morbid obesity (Chronic) Open wound of scrotum JUAN MANUEL (obstructive sleep apnea) (Chronic) Peripheral arterial disease Rhabdomyolysis (Acute) Scrotal varicose veins (Chronic) Skin ulcer of left foot including toes (Acute) Symptomatic anemia (Chronic) Urinary retention (Chronic) Surgical History History of total replacement of right hip (Chronic) S/P cholecystectomy (Chronic) S/P tonsillectomy and adenoidectomy (Chronic) Family History Other No significant family history Social History Preferred Language: Czech 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 Ability: Effective Price Analyst Required: No Beliefs That Will Affect Care: None marital status: Current Living Situation: Spouse Current Living Situation Comment: Home with spouse Feels Safe at Home: Yes Smoking Status: Former smoker Second Hand Exposure: No ; Hx Alcohol Use: No Hx Substance Use: No Review of Systems Review of Systems: All systems reviewed & are unremarkable except as noted in HPI & below Physical Exam Constitutional: WD/WN, vitals as above Eyes: PERRL, conjunctivae normal, anicteric sclerae ENMT: external ear and nose normal, oropharynx normal Neck: normal visual inspection Respiratory: normal respiratory effort, lungs clear to auscultation Cardiovascular: RRR, no murmur, no edema Gastrointestinal (Abdomen): normal bowel sounds, soft, nontender, no hepatosplenomegaly Musculoskeletal: no cyanosis or clubbing, extremities motor strength 5/5 Skin: no rashes, warm and dry Psychiatric: A+Ox3, euthymic affect Results & Data ([facility]) Vital Signs (Past 12 Hours) Vital Signs Temp Pulse Pulse Resp BP Pulse Ox 11/12/19 11:50 36.6 C 84 18 118/72 95 11/12/19 07:42 36.6 C 83 18 117/74 91 11/12/19 07:38 85 11/12/19 03:50 36.7 C 89 20 106/63 91 Laboratory Results Microbiology 11/10/19 10:11 Blood Aerobic Blood Culture - Preliminary No growth in Aerobic bottle after 48 hours. 11/10/19 10:11 Blood Anaerobic Blood Culture - Preliminary Klebsiella pneumoniae 11/10/19 17:10 Groin Gram Stain - Final 11/10/19 17:10 Groin Deep Wound Culture - Preliminary Staphylococcus aureus 11/10/19 10:31 Blood Aerobic Blood Culture - Preliminary Klebsiella pneumoniae 11/10/19 10:31 Blood Anaerobic Blood Culture - Final 11/10/19 11:14 Urine,Straight Cath Urine Culture - Final Three types of organisms present, all high counts. Repeat collection recommended. No further identifications or sensitivities to follow. PG Care Time/CCT Total # of Minutes Spent Total Time Spent with Patient: Total time spent is greater than 50% in coordination of care (as documented) at patient's floor/unit and/or counseling patient: Coding Level of Care Code 36573 Inpt Consult Level 4 Diagnoses Gram negative sepsis A41.50 Urinary tract infection N30.01 Hematuria presence: with hematuria Urinary tract infection type: acute cystitis Leukocytosis D72.825 Leukocytosis type: bandemia (1) Urinary tract infection Hematuria presence: with hematuria Urinary tract infection type: acute cystitis Qualified Code(s): N30.01 - Acute cystitis with hematuria (2) Leukocytosis Leukocytosis type: bandemia Qualified Code(s): D72.825 - Bandemia
--- NOTE | 2019-11-12 13:27 | Cardiology Progress Note ---
Date of Service November 12, 2019 Assessment & Plan (1) Atrial fibrillation with rapid ventricular response: (2) Catheter-associated urinary tract infection: (3) Open wound of scrotum: (4) Stage II pressure ulcer of buttock: (5) Acute hypoxemic respiratory failure: (6) Chronic venous insufficiency: (7) Chronic diastolic heart failure: (8) Peripheral arterial disease: Currently the patient is responded well to medical therapy. His Cardizem drip is been weaned off and his rates have remained steady in the 80s. Given the fact that he is received the appropriate treatment I would suspect that his ventricular rates will remain stable. We will continue to follow heart rates and will continue his outpatient dose of metoprolol. His rates have remained stable. Okay to DC to telemetry or to home from a cardiac standpoint. Subjective Patient seen and examined, medical records and medications reviewed. States he is feeling about the same as yesterday with continued scrotal pain. Otherwise, anxious for discharge and denies any cardiac complaints of chest pain, shortness of breath, palpitations, lightheadedness, dizziness or syncope. Telemetry reviewed: Atrial fibrillation rate controlled in the 80s to 90s. Review of Systems Review of Systems: All systems reviewed & are unremarkable except as noted in HPI & below Physical Exam Physical Exam: General: Awake, alert and oriented x 3. No acute distress. HEENT: Normocephalic, atraumatic. Pupils equal, round and reactive to light and accommodation. Extraocular muscles are intact. Anicteric sclera. Moist mucous membranes. Neck: No JVD. No bruit. Cardiovascular: irregularly irregular, unable to appreciate murmur, rub or gallop. Pulmonary: Clear to auscultation bilaterally. No rales, rhonchi, or wheezing. Abdomen: Bowel sounds x 4, soft. No rebound, guarding or tenderness. No organomegaly. Extremities: No clubbing, cyanosis or edema. +2 pedal pulses bilaterally. Skin: Warm and dry. Results & Data Vital Signs (Past 12 Hours) Vital Signs Temp Pulse Pulse Resp BP Pulse Ox 11/12/19 11:50 36.6 C 84 18 118/72 95 11/12/19 07:42 36.6 C 83 18 117/74 91 11/12/19 07:38 85 11/12/19 03:50 36.7 C 89 20 106/63 91
--- NOTE | 2019-11-12 15:11 | Pharmacy Report ---
Pharmacy Abx Dose Short Note - Date of Service November 12, 2019 - Assessment & Plan Assessment 79 year old M receiving vancomycin for sepsis secondary to UTI Day # 3 of antimicrobial therapy. Plan Vancomycin * Trough level came back therapeutic at ~18 mcg/ml - however level drawn before steady state * Due to level drawn early and also increase risk of drug accumulation d/t BMI >35 kg/m2 will adjust dosing interval to Q20 hr dosing * Awaiting final cultures from groin - may be able to deescalate once return Pharmacy will continue to follow and will adjust dose/frequency as necessary. Thank you.
[2019-11-12] MEDS ORDERED: VANCOMYCIN TROUGH ONE (15:30)
[2019-11-12] MEDS: VANCOMYCIN HCL 1,500 MG in SODIUM CHLORIDE 0.9% 500 ML IV SCH (16:07)
[2019-11-12] MEDS ORDERED: bisacodyL 5 MG TABEC PO ONE (18:45)
--- NOTE | 2019-11-12 19:00 | Hospitalist Progress Note ---
Date of Service November 12, 2019 Assessment & Plan (1) Sepsis: (2) Gram-negative bacteremia: Present on admission with chills, fever 38.8 elevated WBC Blood cx grew klebsiella and wound groin staph Received IV Vanc/Cefepime pending culture results. ID on board Recommended to continue Cefepime for now and vanco Blood cx repeat Can transition to Cefdinir on discharge for 14 days (3) Catheter-associated urinary tract infection: UA showed multiple organisms (contamination) Baires cath changed yesterday Continue IV cefepime (4) Hypoxia: CXR on admission showed pulmonary vascular congestion. Likely 2/2 increased metabolic demand in sepsis and acute fluid overload after fluid resuscitation Received IV lasix x1 Torsemide resumed Saturated well on RA Clinivcally stable (5) Cirrhosis of liver: Liver u/s showed cirrhotic morphology of the liver. No hepatic mass lesion or intrahepatic biliary ductal dilation identified. No ascites. Stable (6) Acute diastolic heart failure: CXR showed pulmonary vascular congestion. Received IV lasix Continue Torsemide home dose Stable (7) Elevated troponin level: Mostly due to demand ischemia due to sepsis/hypoxia/ afib Troponin on admission 1.3, then peaked to 4.3, and trending down to 2.8 EKG showed no acute ischemic changes ECHO showed no LV wall motion abnormality with EF above 70 Continue aspirin, metoprolol cardiology on board Denies any chest pain (8) Atrial fibrillation with rapid ventricular response: Mostly due to sepsis. Was starting on cardizem drip that was discontinued Rate controlled with metoprolol Anticoagulation avoided in the past 2/2 a bleeding hemangioma on his scrotum. However, per this has healed significantly, so it is possible to reconsider anticoagulation. Would defer this to Cardiology. Stable (9) CIERRA (acute kidney injury): Creatinine on admission increased to 1.8 Creatinine 1.2 today Received IVF in the ER Continue torsemide Resolved (10) Leukocytosis: Due to bacteremia WBC 21 on admission Blood cx grew Klebsiella On IV vanco and cefepime WBC 7 today Resolved (11) Morbid obesity: Counseling on weight loss and diet (12) Diabetes mellitus with diabetic polyneuropathy: Most recent Hba1c 7.1 on 11/10 Continue to hold home medications. On Lantus and novolog sliding scale Continue monitor BS (13) Barretts esophagus: cont home PPI (14) Seizures: cont home Keppra Continue seizure precautions Stable (15) DVT prophylaxis: Heparin Full Code Disposition Possible discharge tomorrow Admission and Anticipated Discharge Date Admission Date: November 10, 2019 Subjective Pt was seen and examined Lying in bed with no distress Pt said that he feels much better He said that he did not know anything when he was brought in the hospital denies any chest pain, palpitation, dizziness and SOB Physical Exam Physical Exam: General- No acute distress Head- atraumatic Eyes- PERRL, EOMI, ENT- oropharynx clear Neck- supple, no JVD Lungs- clear to auscultation Heart- irregular rhythm Abdomen- normal bowel sounds, soft, nontender Extremities- no calf tenderness Neuro- alert, oriented x 3; PERRL, EOMI; no facial palsy; no dysarthria Skin- warm & dry Results & Data Results & Data ([facility]) Vital Signs (Past 12 Hours) Vital Signs Temp Pulse Pulse Resp BP Pulse Ox 11/12/19 15:49 86 11/12/19 15:48 36.6 C 83 18 116/71 19 L 11/12/19 11:50 36.6 C 84 18 118/72 95 11/12/19 07:42 36.6 C 83 18 117/74 91 11/12/19 07:38 85 (1) Sepsis Sepsis acute organ dysfunction status: with acute organ dysfunction Sepsis type: sepsis due to unspecified organism Severe sepsis acute organ dysfunction type: unspecified Severe sepsis shock status: without septic shock Qualified Code(s): A41.9 - Sepsis, unspecified organism; R65.20 - Severe sepsis without septic shock
--- NOTE | 2019-11-13 05:30 | Electrocardiogram Report ---
Test Reason : Blood Pressure : / mmHG Vent. Rate : 090 BPM Atrial Rate : 000 BPM P-R Int : 000 ms QRS Dur : 102 ms QT Int : 416 ms P-R-T Axes : 000 -58 018 degrees QTc Int : 508 ms Atrial fibrillation Left anterior fascicular block Nonspecific ST and T wave abnormality Abnormal ECG When compared with ECG of 11-NOV-2019 14:54, No significant change Confirmed by Negrito Greenwood ([id number]) on 11/13/2019 5:29:28 AM Referred By: REFERRED SELF Confirmed By:Negrito Greenwood
[2019-11-13 06:40] LABS: Creatinine Clr Calc Pharmacy 65.6 ml/min; Est GFR (African American) 57.5; Est GFR (Non-African American) 49.6
[2019-11-13] MEDS: INSULIN ASPART 100 UNITS/ML 3 ML PEN SC SCH ×4 (07:38→21:24)
[2019-11-13] MEDS: CEFEPIME 2,000 MG in SYRINGE 7.5 ML IV SCH ×2 (07:38→16:21)
[2019-11-13] MEDS: INSULIN GLARGINE SOLOSTAR 100 UNITS/ML 3 ML PEN SC SCH ×2 (07:39→21:23)
[2019-11-13] MEDS: HEPARIN SOD 5,000 UNIT/0.5 ML VIAL SQ SCH ×3 (07:40→23:55)
[2019-11-13] MEDS: levETIRAcetam 500 MG TAB PO SCH ×2 (07:41→21:22)
[2019-11-13] MEDS: METOPROLOL SUCC 50MG EXT REL TAB PO SCH (07:41)
[2019-11-13] MEDS: ASPIRIN 81 MG ECTAB PO SCH (07:41)
[2019-11-13] MEDS: PANTOprazole 40 MG TAB PO SCH ×2 (07:41→21:22)
[2019-11-13] MEDS: FINASTERIDE 5 MG TAB PO SCH (07:41)
[2019-11-13] MEDS: TORSEMIDE 20 MG TAB PO SCH (07:41)
[2019-11-13] MEDS: LACTOBACILLUS ACIDOPHILUS (FLORANEX) TAB PO SCH ×2 (07:42→21:22)
[2019-11-13] MEDS: bisacodyL 5 MG TABEC PO PRN ×2 (07:49→21:22)
[2019-11-13] MEDS: HYDROCODONE/ACETAMOPHEN 5/325MG TAB PO PRN ×2 (10:04→21:22)
[2019-11-13] MEDS ORDERED: VANCOMYCIN HCL 1,500 MG in SODIUM CHLORIDE 0.9% 500 ML IV SCH (12:00)
[2019-11-13] MEDS ORDERED: bisacodyL 5 MG TABEC PO ONE (12:16)
[2019-11-13] MEDS ORDERED: bisacodyL 5 MG TABEC PO PRN (12:17)
[2019-11-13] MEDS: ACETAMINOPHEN 325 MG TAB PO PRN (13:24)
--- NOTE | 2019-11-13 16:54 | Hospitalist Progress Note ---
Date of Service November 13, 2019 Assessment & Plan (1) Sepsis: admitted with sepsis with gram negative bacteremia -sepsis has resolved treated with IV fluid resuscitation and broad spectrum Abx clinically stable (2) Gram-negative bacteremia: Present on admission with chills, fever 38.8 elevated WBC Blood cx 11/09 grew klebsiella and wound groin staph : MSSA Received IV Vanc/Cefepime ID on board , appreciate input abx changed to PO Cefdinir needs 14 days (3) Catheter-associated urinary tract infection: UA showed multiple organisms (contamination) Baires cath changed during this hospital admission (4) Hypoxia: resolved in room air possible acute decompensation of CHF with diastolic dysfunction ( HFpEF ) CXR on admission showed pulmonary vascular congestion. acute fluid overload after fluid resuscitation Received IV lasix x1 Torsemide resumed vol status improved to baseline (5) Cirrhosis of liver: Liver u/s showed cirrhotic morphology of the liver-possible PERRY No hepatic mass lesion or intrahepatic biliary ductal dilation identified. No ascites. LFTs stable (6) Acute diastolic heart failure: CXR showed pulmonary vascular congestion. 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 (9) CIERRA (acute kidney injury): baseline CKD stage 3 Creatinine on admission increased to 1.8 due to sepsis resolved with IV fluid resuscitation cr improved to baseline (10) Leukocytosis: resolved -presented with marked leukocytosis due to sepsis resolved WBC normal (11) Morbid obesity: Counseling on weight loss and diet (12) Diabetes mellitus with diabetic polyneuropathy: Most recent Hba1c 7.1 on 11/10 Continue to hold home medications. On Lantus and novolog sliding scale Continue monitor BS (13) Barretts esophagus: cont home PPI (14) Seizures: cont home Keppra (15) DVT prophylaxis: sc Heparin Full Code Disposition plan to dc home with home health tomorrow Admission and Anticipated Discharge Date Admission Date: November 10, 2019 Subjective awake and alert reports of feeling fine wants to know when he can be discharged home Review of Systems Review of Systems: All systems reviewed & are unremarkable except as noted in HPI & below Constitutional: no fever, no chills and no weakness Neurologic: no confusion Physical Exam Constitutional: + obese; no acute distress Eyes: PERRL, conjunctivae normal, anicteric sclerae ENMT: external ear and nose normal, oropharynx normal Neck: trachea midline, no thyromegaly Respiratory: normal respiratory effort, lungs clear to auscultation Cardiovascular: RRR, no murmur, no edema Gastrointestinal (Abdomen): normal bowel sounds, soft, nontender, no hepatosplenomegaly Musculoskeletal: no cyanosis or clubbing, extremities motor strength 5/5 Neurologic: PERRL, EOMI, accommodation nl, no face palsy, no dysarthria Psychiatric: A+Ox3, euthymic affect Results & Data Results & Data ([facility]) Vital Signs (Past 12 Hours) Vital Signs Temp Pulse Pulse Resp BP Pulse Ox 11/13/19 15:32 36.5 C 79 18 114/69 92 11/13/19 11:25 36.5 C 82 20 102/62 92 11/13/19 07:15 80 11/13/19 07:11 36.5 C 79 20 113/73 94 (1) Sepsis Sepsis acute organ dysfunction status: with acute organ dysfunction Sepsis type: sepsis due to unspecified organism Severe sepsis acute organ dysfunction type: unspecified Severe sepsis shock status: without septic shock Qualified Code(s): A41.9 - Sepsis, unspecified organism; R65.20 - Severe sepsis without septic shock
--- NOTE | 2019-11-13 17:12 | Cardiology Progress Note ---
Date of Service November 13, 2019 Assessment & Plan (1) Atrial fibrillation with rapid ventricular response: (2) Catheter-associated urinary tract infection: (3) Open wound of scrotum: (4) Stage II pressure ulcer of buttock: (5) Acute hypoxemic respiratory failure: (6) Chronic venous insufficiency: (7) Chronic diastolic heart failure: (8) Peripheral arterial disease: No recurrent episodes of rapid ventricular response. The patient continues to improve clinically. Continue current dose of metoprolol. Has been deemed not an anticoagulation candidate due to bleeding in the past. His rates have remained stable. Okay to DC to telemetry or to home from a cardiac standpoint. Subjective Patient seen and examined, medical records reviewed. Patient states that he is feeling well today with his only complaint being that of constipation. He denies any chest pain, shortness of breath, palpitations, lightheadedness, dizziness or syncope. The patient states that he believes he should have a bowel movement before being discharged. Telemetry reviewed: atrial fibrillation rate controlled. Review of Systems Review of Systems: All systems reviewed & are unremarkable except as noted in HPI & below Physical Exam Physical Exam: General: Awake, alert and oriented x 3. No acute distress. HEENT: Normocephalic, atraumatic. Pupils equal, round and reactive to light and accommodation. Extraocular muscles are intact. Anicteric sclera. Moist mucous membranes. Neck: No JVD. No bruit. Cardiovascular: irregularly irregular, unable to appreciate murmur, rub or gallop. Pulmonary: Clear to auscultation bilaterally. No rales, rhonchi, or wheezing. Abdomen: Bowel sounds x 4, soft. No rebound, guarding or tenderness. No organomegaly. Extremities: No clubbing, cyanosis or edema. +2 pedal pulses bilaterally. Skin: Warm and dry. Results & Data Vital Signs (Past 12 Hours) Vital Signs Temp Pulse Pulse Resp BP Pulse Ox 11/13/19 15:32 36.5 C 79 18 114/69 92 11/13/19 11:25 36.5 C 82 20 102/62 92 11/13/19 07:15 80 11/13/19 07:11 36.5 C 79 20 113/73 94
[2019-11-13] MEDS: DOCUSATE SODIUM 100 MG CAP PO SCH (21:22)
[2019-11-13] MEDS: CEFDINIR 300 MG CAP PO SCH (21:22)
[2019-11-14] MEDS: HYDROCODONE/ACETAMOPHEN 5/325MG TAB PO PRN (05:28)
[2019-11-14] MEDS ORDERED: VANCOMYCIN TROUGH ONE (07:30)
[2019-11-14] MEDS: FINASTERIDE 5 MG TAB PO SCH (07:37)
[2019-11-14] MEDS: METOPROLOL SUCC 50MG EXT REL TAB PO SCH (07:37)
[2019-11-14] MEDS: PANTOprazole 40 MG TAB PO SCH (07:38)
[2019-11-14] MEDS: levETIRAcetam 500 MG TAB PO SCH (07:38)
[2019-11-14] MEDS: TORSEMIDE 20 MG TAB PO SCH (07:39)
[2019-11-14] MEDS: LACTOBACILLUS ACIDOPHILUS (FLORANEX) TAB PO SCH (07:40)
[2019-11-14] MEDS: DOCUSATE SODIUM 100 MG CAP PO SCH (07:40)
[2019-11-14] MEDS: CEFDINIR 300 MG CAP PO SCH (07:41)
[2019-11-14] MEDS: ASPIRIN 81 MG ECTAB PO SCH (07:41)
[2019-11-14 08:29] LABS: Creatinine Clr Calc Pharmacy 63.7 ml/min; Est GFR (African American) 55.5; Est GFR (Non-African American) 47.9
[2019-11-14] MEDS: INSULIN ASPART 100 UNITS/ML 3 ML PEN SC SCH ×2 (08:57→12:50)
[2019-11-14] MEDS: INSULIN GLARGINE SOLOSTAR 100 UNITS/ML 3 ML PEN SC SCH (08:59)
[2019-11-14] MEDS: HEPARIN SOD 5,000 UNIT/0.5 ML VIAL SQ SCH (08:59)
[2019-11-14] MEDS ORDERED: POLYETHYLENE (MIRALAX) 17 GM PACK PO SCH (09:00)
--- NOTE | 2019-11-14 13:38 | Cardiology Progress Note ---
Date of Service November 14, 2019 Assessment & Plan (1) Atrial fibrillation with rapid ventricular response: (2) Catheter-associated urinary tract infection: (3) Open wound of scrotum: (4) Stage II pressure ulcer of buttock: (5) Acute hypoxemic respiratory failure: (6) Chronic venous insufficiency: (7) Chronic diastolic heart failure: (8) Peripheral arterial disease: No recurrent episodes of rapid ventricular response. The patient continues to improve clinically. Continue current dose of metoprolol. Has been deemed not an anticoagulation candidate due to bleeding in the past. His rates have remained stable. Okay to DC to telemetry or to home from a cardiac standpoint. Subjective Patient seen and examined, medical records reviewed. Patient states that he is feeling well today with his only complaint being that of constipation. He denies any chest pain, shortness of breath, palpitations, lightheadedness, dizziness or syncope. The patient states that he believes he should have a bowel movement before being discharged. Telemetry reviewed: atrial fibrillation rate controlled. Review of Systems Review of Systems: All systems reviewed & are unremarkable except as noted in HPI & below Physical Exam Physical Exam: General: Awake, alert and oriented x 3. No acute distress. HEENT: Normocephalic, atraumatic. Pupils equal, round and reactive to light and accommodation. Extraocular muscles are intact. Anicteric sclera. Moist mucous membranes. Neck: No JVD. No bruit. Cardiovascular: irregularly irregular, unable to appreciate murmur, rub or gallop. Pulmonary: Clear to auscultation bilaterally. No rales, rhonchi, or wheezing. Abdomen: Bowel sounds x 4, soft. No rebound, guarding or tenderness. No organomegaly. Extremities: No clubbing, cyanosis or edema. +2 pedal pulses bilaterally. Skin: Warm and dry. Results & Data Vital Signs (Past 12 Hours) Vital Signs Temp Pulse Pulse Resp BP BP Pulse Ox 11/14/19 13:15 36.6 C 88 88 22 102/63 114/69 94 11/14/19 07:49 36.6 C 88 22 102/63 94
--- NOTE | 2019-11-14 16:42 | Discharge Summary ---
Date of Service November 14, 2019 Admission HPI Per Admitting Provider 79 yo M with chronic atrial fibrillation presented to the ER reporting acute onset rigors at 0300 today. He has an indwelling Baires and is very sedentary, requiring a lift and max assistance to ambulate. He was found to be septic with a leukocytosis with left shift, fever to 102F, and hypoxia. The patient reported feeling well and asked to go home. reports that he is scared of COVID and equates coming to the hospital with a poor outcome. The patient reports no SOB, no recent paroxysmal dyspnea, SOW or weight gain although he reports not taking his weight daily like he should. He does report keeping cons istent with a low salt diet, however. reports some recent constipation that was severe. The patient denies any abdominal or pelvic discomfort. Had some Miralax and a BM yesterday. Weakness is present and the patient has chronic orthopnea. He is not on supplemental oxygen and is requiring 5L via NC now. CXR reveals pulmonary vascular congestion and he was given 2L of IVF in the ER per ER physician. On arrival to the ER he was only requiring 2LPM oxygen supplementation. Afib with RVR with a HR in the 170s noted in the field and he was given 15mg diltiazem prehospital with an improvement in HR to the 140s. On arrival blood pressure was in the 80s systolic, thought secondary to the dilt and that's when the IVF were given with improvement in the BP to 122/66. HR remained in the 120-130s and diltiazem was reinitiated when the BP improved. However, after another couple of hours he became more tachypneic with persistent hypoxia. Concern for fluid overload prompted administration of Lasix 40mg IV. He was placed in PCU for further care. was contacted by phone and updated. She agrees no symptoms were present until 0300 today. Cardiology was notified of the consult. Principal Diagnosis SEPSIS , COMPLICATED UTI/CHRONIC INDWELLING CATHETER RELATED UTI Discharge Exam Constitutional + obese; no acute distress Eyes PERRL, conjunctivae normal, anicteric sclerae ENMT external ear and nose normal, oropharynx normal Neck trachea midline, no thyromegaly Respiratory normal respiratory effort, lungs clear to auscultation Cardiovascular RRR, no murmur, no edema Gastrointestinal (Abdomen) normal bowel sounds, soft, nontender, no hepatosplenomegaly Musculoskeletal no cyanosis or clubbing, extremities motor strength 5/5 Neurologic PERRL, EOMI, accommodation nl, no face palsy, no dysarthria Psychiatric A+Ox3, euthymic affect Discharge Data Allergies Allergy/AdvReac Type Severity Reaction Status Date / Time metronidazole Allergy Severe see below Verified 11/10/19 10:21 amoxicillin Allergy Intermediate rash Verified 11/10/19 10:21 Consultations 11/10/19 11:37 ED Decision to Admit Stat 11/10/19 13:01 Consult Cardiology Routine 11/10/19 13:02 Consult Case Management - Discharge Planning Routine 11/11/19 18:20 Consult Infectious Diseases Routine Ordered Studies 11/10/19 11:37 CT abd pelvis wo con Stat 11/10/19 11:45 CT head/brain wo con Stat 11/12/19 10:00 US liver Routine Hospital Course (1) Sepsis: admitted with sepsis with gram negative bacteremia -sepsis has resolved treated with IV fluid resuscitation and broad spectrum Abx clinically stable (2) Gram-negative bacteremia: Present on admission with chills, fever 38.8 elevated WBC Blood cx 11/09 grew klebsiella and wound groin staph : MSSA Received IV Vanc/Cefepime ID on board , appreciate input abx changed to PO Cefdinir needs 14 days (3) Catheter-associated urinary tract infection: UA showed multiple organisms (contamination) Baires cath changed during this hospital admission (4) Hypoxia: resolved in room air possible acute decompensation of CHF with diastolic dysfunction ( HFpEF ) CXR on admission showed pulmonary vascular congestion. acute fluid overload after fluid resuscitation Received IV lasix x1 Torsemide resumed vol status improved to baseline (5) Cirrhosis of liver: Liver u/s showed cirrhotic morphology of the liver-possible PERRY No hepatic mass lesion or intrahepatic biliary ductal dilation identified. No ascites. LFTs stable (6) Acute diastolic heart failure: CXR showed pulmonary vascular congestion. 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 (9) CIERRA (acute kidney injury): baseline CKD stage 3 Creatinine on admission increased to 1.8 due to sepsis resolved with IV fluid resuscitation cr improved to baseline (10) Leukocytosis: resolved -presented with marked leukocytosis due to sepsis resolved WBC normal (11) Morbid obesity: Counseling on weight loss and diet (12) Diabetes mellitus with diabetic polyneuropathy: Most recent Hba1c 7.1 on 11/10 Continue to hold home medications. On Lantus and novolog sliding scale Continue monitor BS (13) Barretts esophagus: cont home PPI (14) Seizures: cont home Keppra (15) DVT prophylaxis: sc Heparin Full Code Disposition dc home with home health today Total Time Total Time Spent Total Time Spent (In Minutes): 35 mins Discharge Plan Discharge Items Patient Disposition: Home - Home Health Services Reason For Visit: sepsis Discharge Diagnosis: SEPSIS , COMPLICATED UTI/CHRONIC INDWELLING CATHETER RELATED UTI Activity: Resume your previous activity Non-emergency contact: Primary Care Provider Call non-emergency contact if: you have any medication questions Follow-up/Referrals: Donte Chavarria, [Primary Care Provider] - 11/19/19 10:40 am (11/19/2019 10:40 AM Yung Bills III, MD General Internal Medicine [facility] ) Diet: Carb Consistent or DM2 and Heart Healthy Addtl Attending Provider Instructions: HOSPITAL FOLLOW UP SCHEDULED WITH DR CHAVARRIA NEW MEDICATION: CEFDINIR 300 MG -1 TABLET TWICE DAILY FOR 2 WEEKS -ANTIBIOTIC FOR URINARY TRACT INFECTION Pending Studies at Discharge: No Stand-Alone Forms: [facility] Cess[facility] Medications and DC Order Prescriptions: New cefdinir 300 mg Capsule 300 mg PO BID 14 Days Qty: 28 RF: 0 Continued metformin 500 mg Tablet 500 mg PO QAM RF: 0 metoprolol succinate 200 mg tablet extended release 24 hr 200 mg PO DAILY RF: 0 pantoprazole 40 mg Tablet,Delayed Release (Dr/Ec) 40 mg PO BID RF: 0 ferrous sulfate 325 mg (65 mg iron) Tablet 325 mg PO BID RF: 0 finasteride 5 mg tablet 5 mg PO DAILY RF: 0 levetiracetam 500 mg Tablet 500 mg PO BID RF: 0 hydrocodone-acetaminophen 5-325 mg tablet 1 tab PO Q8H PRN (Reason: Pain, Moderate) RF: 0 Lactobacillus acidophilus Tablet,Chewable 1 tab PO BID RF: 0 potassium chloride 10 mEq tablet,ER particles/crystals 10 meq PO DAILY RF: 0 Januvia 50 mg tablet 50 mg PO DAILY RF: 0 aspirin [Aspirin Low Dose] 81 mg Tablet,Delayed Release (Dr/Ec) 81 mg PO DAILY RF: 0 torsemide 20 mg tablet 40 mg PO DAILY PRN (Reason: increased swelling/weight gain) RF: 0 Discharge Orders: Discharge Order (Routine); Ordered 11/14/19 Ordered By: Kanwal Trotter Admission Data Admit Date/Time: 11/10/19 12:52 Attending Provider: Kanwal Trotter Admit Provider: Marisol Daly Primary Care Provider: Donte Chavarria Other Providers: Marisol Daly ; Tobi Chaidez ; Grey Cordoba ; Priscilla Stewart ; [facility] Other Interventions: Discharge Summary Assessment (RN) Last Done: 11/14/19 13:15 DC Date/Time DO NOT enter until pt leaves facility: 11/14/19 14:18
== END 2019-11-14 14:18 | disposition home health service (06) | DRG 698 ==
LOC: ED 09:57 → 2S 12:52 → SUATTDRO 12:52 → 2S 14:45 → 2N 11-13 14:20

== ENCOUNTER 2020-02-13 14:24 | Inpatient (IN) ==
--- NOTE | 2020-02-13 15:00 | Emergency Department Note ---
History of Present Illness General Chief complaint: Weakness Time Seen by Provider: 02/13/20 14:30 Source: patient Mode of arrival: EMS History of Present Illness Provider complaint: Generalized weakness Onset (ago): day(s) Location: upper extremity and lower extremity Severity: severe Pain Consistency: + constant Quality: + other (Weak) Relieved By: + none Associated symptoms: + rash (Right wound in groin for the past 4 years); no chest pain, no cough, no fever/chills, no headaches, no nausea/vomiting and no shortness of breath This is a 79-year-old male presents with generalized weakness for the past 3 days. The patient states that he has trouble getting up and slid out of bed the other day. He was seen in the hospital yesterday and diagnosed with cellulitis of the right leg and a UTI and discharged with Keflex and Bactrim. He states when the ambulance brought him home he had trouble getting up and he slid injuring his left leg. He denies hitting his head or hurting any other part of his body. He has had no chest discomfort or pain, shortness of breath, fever, vomiting, abdominal pain or cough or cold symptoms. He does have an indwelling Baires catheter. He does not think he has a cellulitis to his leg. He states his tetanus shot is up-to-date. He states he has chronic pain in his groin due to a rash he has had there for 4 years. He states he is followed by the wound care clinic. He normally takes Vicodin for the pain on a regular basis. Home Medications Home Medications Medication Instructions Recorded Confirmed Type ferrous sulfate 325 mg PO DIRECTED 06/16/18 02/13/20 History finasteride 5 mg PO DAILY 06/16/18 02/13/20 History metformin 500 mg PO QAM 06/16/18 02/13/20 History metoprolol succinate 200 mg PO DAILY 06/16/18 02/13/20 History pantoprazole 40 mg PO BID 06/16/18 02/13/20 History levetiracetam 500 mg PO BID 03/16/19 02/13/20 History Januvia 50 mg PO DAILY 06/17/19 02/13/20 History Lactobacillus acidophilus 1 tab PO BID 06/17/19 02/13/20 History hydrocodone-acetaminophen 1 tab PO Q8H PRN 06/17/19 02/13/20 History potassium chloride 10 meq PO DAILY 06/17/19 02/13/20 History aspirin [Aspirin Low Dose] 81 mg PO DAILY 11/10/19 02/13/20 History torsemide See Rx Instructions .ROUTE .COMPLEX 11/10/19 02/13/20 History cephalexin [Keflex] 500 mg PO Q6H 10 Days #40 cap 02/12/20 02/13/20 Rx sulfamethoxazole-trimethoprim 1 tab PO Q12H #14 tab NS 02/12/20 02/13/20 Rx [Bactrim DS] Allergies Allergy/AdvReac Type Severity Reaction Status Date / Time metronidazole Allergy Severe Unknown Verified 02/13/20 16:05 amoxicillin Allergy Intermediate Rash Verified 02/13/20 16:05 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, with fat layer exposed Diverticulosis of colon (without mention of hemorrhage) DM (diabetes mellitus), type 2, uncontrolled w/ophthalmic complication Esophageal candidiasis Exertional dyspnea Gastric ulcer with hemorrhage but without obstruction H/O Clostridium difficile infection Hemangioma of skin History of chronic atrial fibrillation Hypertension Hypoxia ICH (intracerebral hemorrhage) Morbid obesity Open wound of scrotum JUAN MANUEL (obstructive sleep apnea) Peripheral arterial disease Rhabdomyolysis Scrotal varicose veins Skin ulcer of left foot including toes Symptomatic anemia Urinary retention Surgical History History of total replacement of right hip S/P cholecystectomy S/P tonsillectomy and adenoidectomy Family History Other No significant family history Social History Smoking Status: Never smoker Second Hand Exposure: No; Hx Alcohol Use: No Hx Substance Use: No Preferred Language: [place]orese 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 Ability: Effective 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 and A total of 10 systems reviewed and were otherwise negative Physical Exam Vital Signs Vital Signs - 24 hr 02/13/20 14:50 02/13/20 16:26 Temperature 36.7 C Temperature Source Oral Pulse Rate 93 H Pulse Rate [Apical] 93 H Respiratory Rate 20 20 Respiratory Effort / Characteristics Non-Labored Spontaneous Respiratory Depth Normal Respiratory Pattern Regular Blood Pressure 126/68 Blood Pressure [Right Arm] 104/79 Blood Pressure Mean 87 Blood Pressure Mean [Right Arm] 87 Blood Pressure Position Lying Pulse Oximetry 88 L 92 Oxygen Delivery Method Room Air Nasal Cannula Oxygen Flow Rate 4 Sepsis Recent Fever Within 48 Hours No Sepsis New/Unexplained Change in Mental Status N/A Sepsis Action Taken by Nursing No Action Required Constitutional: Vital signs reviewed. Eyes: Pupils are equal round reactive to light. Conjunctiva are noninjected. ENT: Pharynx is clear without erythema or exudate. Mucous membranes are moist. Neck supple without meningeal signs. Respiratory: Clear to auscultation bilaterally. Breath sounds are equal bilaterally. Cardiovascular: Regular rate and rhythm. No rubs or gallops. GI: Soft and nontender. Bowel sounds are present. Indwelling Baires catheter. Large pannus with diffuse erythema without increased warmth. : Scrotal enlargement with areas of skin degradation with mild bleeding. No crepitus. Approximately 3 cm wound just above the anus with minimal bleeding. Fecal material noted throughout the area but not including the scrotum. Musculoskeletal: Chronic venous stasis discoloration of both legs. No increased warmth is noted. There is a skin tear to the left anterior marcelino measuring 10 x 5 cm. Integumentary: No cyanosis. or jaundice. Neurological: The patient is awake and alert. No focal deficits. Psychiatric: Normal affect. Not anxious appearing. Course Administered Medications Discontinued Medications Hydrocodone Bitart/Acetaminophen (Hydrocodone/Acetamophen 5/325mg Tab) 1 tab PO NOW STA Stop: 02/13/20 15:45 Last Admin: 02/13/20 15:51 Dose: 1 tab Documented by: [id number] Furosemide (Furosemide 40 Mg/4 Ml Vial) 40 mg IV NOW STA Stop: 02/13/20 16:02 Last Admin: 02/13/20 16:44 Dose: 40 mg Documented by: [id number] Gelatin (Gelatin Sponge 12-7mm) Confirm Administered Dose 1 ea .ROUTE .STK-MED ONE Stop: 02/13/20 16:15 Last Admin: 02/13/20 16:16 Dose: 1 ea Documented by: [id number] Gelatin (Gelatin Sponge 12-7mm) Confirm Administered Dose 1 ea .ROUTE .STK-MED ONE Stop: 02/13/20 16:16 Last Admin: 02/13/20 16:16 Dose: 1 ea Documented by: [id number] Cefepime HCl (Maxipime) 20 mls @ 5 mls/min IV NOW STA Stop: 02/13/20 16:33 Last Admin: 02/13/20 16:44 Dose: 5 mls/min Documented by: [id number] Daptomycin 650 mg/ Syringe 13 mls @ 6.5 mls/min IV NOW STA; Protocol Stop: 02/13/20 16:32 Last Admin: 02/13/20 17:09 Dose: 6.5 mls/min Documented by: [id number] Critical Care Time Critical Care Time: Yes Total Critical Care Time: 45 I have personally spent approximately 45 minutes of critical care time in the direct management of this patient. This includes bedside care, interpretation of diagnostic studies, and testing, discussion with consultants, patient, and family members, and other required patient management activities. These minutes are in excess of all separately billable procedures. Medical Decision Making Differential Diagnosis Sepsis, bacteremia, UTI, pneumonia, cellulitis, anemia, fasciitis, CHF Medical Records Attestation: I reviewed the patient's medical records. The patient was seen here yesterday for generalized weakness. He was diagnosed with a right leg cellulitis and UTI and placed on Keflex and Bactrim. He was admitted in October of this year for sepsis and catheter associated UTI. Home Medications Current Medication List: was personally reviewed by me Laboratory Data Attestation: I reviewed the patient's lab results. Result diagrams: 02/13/20 15:30 02/13/20 15:30 Lab Results 02/13/20 02/13/20 02/13/20 Range/Units 15:30 15:30 15:30 WBC 10.52 (4.8-10.8) K/uL RBC 5.06 (4.7-6.1) M/uL Hgb 14.5 (14.0-18.0) g/dL Hct 46.7 (42-52) % MCV 92.3 (80-100) fL MCH 28.7 (25-34) pg MCHC 31.0 L (32-36) g/dL RDW Std Deviation 54.7 H (36.4-46.3) fL RDW Coeff of Shadi 16.1 H (11.5-14.5) % Plt Count 271 (130-400) K/uL MPV 10.0 (7.4-10.4) fL Immature Gran % (Auto) 0.1 % Neut % (Auto) 82.9 % Lymph % (Auto) 7.8 % Wilcox % (Auto) 5.9 % Eos % (Auto) 3.0 % Baso % (Auto) 0.3 % Neut # (Auto) 8.72 H (1.4-6.5) K/uL Lymph # (Auto) 0.82 L (1.2-3.4) K/uL Wilcox # (Auto) 0.62 H (0.11-0.59) K/uL Eos # (Auto) 0.32 (0-0.5) K/uL Baso # (Auto) 0.03 (0-0.2) K/uL Immature Gran # (Auto) 0.01 (0.00-0.02) K/uL PT 12.0 (9.0-12.0) Seconds INR 1.1 (0.9-1.1) APTT 30.1 (21.0-31.0) Seconds PTT Ratio 1.1 Sodium 140 (136-145) mmol/L Potassium 4.4 (3.5-5.1) mmol/L Chloride 106 (98-107) mmol/L Carbon Dioxide 27 (21-32) mmol/L Anion Gap 7.0 (3-11) BUN 28 H (7-18) mg/dl Creatinine 1.62 H (0.6-1.4) mg/dl Est Cr Clr Drug Dosing 56.1 ml/min Est GFR ( Amer) 46.1 Est GFR (Non-Af Amer) 39.8 BUN/Creatinine Ratio 17.4 (10-20) Glucose 107 H (70-99) mg/dl Lactate (0.4-2.0) mmol/L Calcium 8.3 L (8.5-10.1) mg/dl Magnesium 2.6 H (1.8-2.4) mg/dl Total Bilirubin 0.6 (0.2-1) mg/dl AST 16 (15-37) U/L ALT 13 (12-78) U/L Alkaline Phosphatase 81 (45-117) U/L Troponin I < 0.015 (0-0.045) ng/ml NT-Pro-B Natriuret Pep 6758 H (0-1800) pg/ml Total Protein 8.5 H (6.4-8.2) gm/dl Albumin 3.0 L (3.4-5.0) gm/dl Globulin 5.5 H (2.5-4.0) gm/dl Albumin/Globulin Ratio 0.5 L (0.9-2) 02/13/20 Range/Units 15:30 WBC (4.8-10.8) K/uL RBC (4.7-6.1) M/uL Hgb (14.0-18.0) g/dL Hct (42-52) % MCV (80-100) fL MCH (25-34) pg MCHC (32-36) g/dL RDW Std Deviation (36.4-46.3) fL RDW Coeff of Shadi (11.5-14.5) % Plt Count (130-400) K/uL MPV (7.4-10.4) fL Immature Gran % (Auto) % Neut % (Auto) % Lymph % (Auto) % Wilcox % (Auto) % Eos % (Auto) % Baso % (Auto) % Neut # (Auto) (1.4-6.5) K/uL Lymph # (Auto) (1.2-3.4) K/uL Wilcox # (Auto) (0.11-0.59) K/uL Eos # (Auto) (0-0.5) K/uL Baso # (Auto) (0-0.2) K/uL Immature Gran # (Auto) (0.00-0.02) K/uL PT (9.0-12.0) Seconds INR (0.9-1.1) APTT (21.0-31.0) Seconds PTT Ratio Sodium (136-145) mmol/L Potassium (3.5-5.1) mmol/L Chloride (98-107) mmol/L Carbon Dioxide (21-32) mmol/L Anion Gap (3-11) BUN (7-18) mg/dl Creatinine (0.6-1.4) mg/dl Est Cr Clr Drug Dosing ml/min Est GFR ( Amer) Est GFR (Non-Af Amer) BUN/Creatinine Ratio (10-20) Glucose (70-99) mg/dl Lactate 3.0 H* (0.4-2.0) mmol/L Calcium (8.5-10.1) mg/dl Magnesium (1.8-2.4) mg/dl Total Bilirubin (0.2-1) mg/dl AST (15-37) U/L ALT (12-78) U/L Alkaline Phosphatase (45-117) U/L Troponin I (0-0.045) ng/ml NT-Pro-B Natriuret Pep (0-1800) pg/ml Total Protein (6.4-8.2) gm/dl Albumin (3.4-5.0) gm/dl Globulin (2.5-4.0) gm/dl Albumin/Globulin Ratio (0.9-2) Imaging Data Radiologist's Impression: SINGLE VIEW CHEST CLINICAL HISTORY: Sepsis. FINDINGS: 2 AP, portable, semierect chest radiographs are compared to study dated 02/12/2020. Correlation is made with chest CT dated 08/21/2018. The examination is degraded by portable technique, apical lordotic positioning, and patient rotation. The heart is enlarged noting atherosclerotic calcification of the thoracic aorta. There is mild pulmonary vascular congestion. Scarring/atelectasis is seen at the lung bases. No focal airspace consolidation or large pleural effusion is identified. No pneumothorax is seen. The skeletal structures are osteopenic. The bony thorax is grossly intact. Arthritic change is seen in the shoulders. IMPRESSION: 1. Cardiomegaly with evidence of mild congestive failure. This is similar to yesterday. 2. No focal airspace consolidation or large pleural effusion is identified. Electronically signed by: Bernardo Toscano M.D. 02/13/2020 3:53 PM [address] AND PELVIS CT WITHOUT CONTRAST CT DOSE: 2331.80 mGy.cm HISTORY: Acute scrotal pain with possible abscess scrotal/perineal swelling redness eval for abscess TECHNIQUE: Multiaxial CT images of the abdomen and pelvis were performed without contrast. A dose lowering technique was utilized adhering to the principles of ALARA. COMPARISON STUDY: CT abdomen pelvis 11/10/2019 FINDINGS: Trace pleural effusions. Minimal bibasilar atelectasis. Limited exam secondary to upper extremity positioning, lack of contrast and body habitus. Cardiomegaly. Coronary artery calcifications. The spleen, pancreas and adrenal glands are unremarkable. Cirrhotic liver disease. Cholecystectomy. Probable cysts of the right kidney measure up to 3.3 cm. No obstructive uropathy. Catheter is noted within a decompressed urinary bladder. Extensive calcified plaque of the abdominal aorta without aneurysm. No adenopathy. There is mild nonspecific stranding within the lyudmila hepatis and surrounding the proximal duodenum which is similar to comparison. There is no bowel obstruction. Mild fecal retention. Colonic diverticulosis without acute diverticulitis. Noninflamed appendix. Diastases recti with small fat filled periumbilical hernia. Subcutaneous stranding of the anterior abdominal wall. There are a few nodular foci of the anterior abdominal wall measuring up to 2.7 cm, possibly reflective of injection granulomas. Skin thickening with subcutaneous edema involves the patient's pannus and scrotum with nodular skin thickening noted posteriorly. No drainable fluid collection. No subcutaneous emphysema to suggest fasciitis. Degenerative changes of the spine, pelvis and hips. No acute fracture. Right hip total joint arthroplasty. IMPRESSION: 1. No acute intra-abdominal or intrapelvic abnormality. 2. Cirrhotic liver disease. 3. Moderate skin thickening and subcutaneous edema involving the lower aspect of the patient's pannus extends into the scrotum suggestive of cellulitis. There is no drainable fluid collection or subcutaneous emphysema to suggest fasciitis. 4. Trace pleural effusions. 5. Additional findings as above. ECG Data Attestation: I personally reviewed and interpreted this ECG as follows: Indication: + weakness Rate (beats per minute): 92 Rhythm: + atrial fibrillation ECG Intervals/blocks: + Left anterior fascicular block ECG ST segments: no ST elevation ECG Findings: no PVCs Blood Pressure Blood Pressure Findings: Elevated blood pressure Blood Pressure Disposition: elevated BP felt to be situational MDM Narrative I did evaluate the patient as noted above. The patient is presenting with generalized weakness. He has no other complaints other than chronic pain to his groin which he states is unchanged. He denies having any fevers. He denies having abdominal pain. He has a prior history of MRSA in his urine as well as Klebsiella in his groin wound. He was admitted previously for gram-negative sepsis. He is slightly hypoxemic here but denies being short of breath. He was provided with oxygen via nasal cannula 2 L. His O2 saturation went up to the low 90s. He has redness and swelling to his scrotum and perineum. There is no crepitus to the area. He states he has had this for 4 years. He has a open wound above the anus as well. There was some bleeding from both areas and so I did apply Gelfoam and dressings were applied. Fecal material was cleaned prior to this. IV access was established. He was treated with IV antibiotics with da ptomycin and cefepime after discussion with the ED pharmacist. Blood cultures were obtained prior to this. I did place an order for continuous cardiac monitoring. The monitor showed atrial fibrillation at a rate of 92 bpm. I did order and personally review the patient's 12-lead EKG as described above. He has no acute ischemic changes. He does have atrial fibrillation. I did order and personally reviewed the images of the patient's chest x-ray as described above. Chest x-ray shows heart failure. I did order a urine analysis. I did order and review the patient's blood work as noted in the electronic medical record. His white blood cell count is slightly elevated at 10.5. His lactic acid is elevated at 3. Creatinine is 1.62. BNP is elevated as well. He was given Lasix IV. I did order a CT of the abdomen and pelvis. I did review the images myself as well as the radiology report as described above. He has what appears to be cellulitis of the pannus. There is no evidence of fasciitis or abscess. I did discuss the test results with the patient. His O2 saturation is 97% on 2 L. He states he feels fine and is reluctant to be hospitalized but is agreeable. I did discuss case with the hospitalist and case management associate. His initial blood pressure was slightly elevated and second blood pressure was 104/79. He was not given IV fluids because of his history of CHF. Impression & Plan Abdominal wall cellulitis, Cellulitis, scrotum, Generalized weakness, Hypoxemia, CHF exacerbation, Catheter-associated urinary tract infection Discharge Plan Visit Data Chief Complaint: Weakness ED Provider: Parish Lazcano Discharge Problem: Abdominal wall cellulitis, Cellulitis, scrotum, Generalized weakness, Hypoxemia, CHF exacerbation, Catheter-associated urinary tract infection Patient Disposition: Being Evaluated by Hospitalist Forms Stand Alone Forms: [facility] Prescriptions Prescriptions: No Action metformin 500 mg Tablet 500 mg PO QAM RF: 0 metoprolol succinate 200 mg tablet extended release 24 hr 200 mg PO DAILY RF: 0 pantoprazole 40 mg Tablet,Delayed Release (Dr/Ec) 40 mg PO BID RF: 0 ferrous sulfate 325 mg (65 mg iron) Tablet 325 mg PO DIRECTED RF: 0 finasteride 5 mg tablet 5 mg PO DAILY RF: 0 levetiracetam 500 mg Tablet 500 mg PO BID RF: 0 hydrocodone-acetaminophen 5-325 mg tablet 1 tab PO Q8H PRN (Reason: Pain, Moderate) RF: 0 Lactobacillus acidophilus Tablet,Chewable 1 tab PO BID RF: 0 potassium chloride 10 mEq tablet,ER particles/crystals 10 meq PO DAILY RF: 0 Januvia 50 mg tablet 50 mg PO DAILY RF: 0 aspirin [Aspirin Low Dose] 81 mg Tablet,Delayed Release (Dr/Ec) 81 mg PO DAILY RF: 0 torsemide 20 mg tablet See Rx Instructions .ROUTE .COMPLEX RF: 0 sulfamethoxazole-trimethoprim [Bactrim DS] 800-160 mg tablet 1 tab PO Q12H Qty: 14 RF: 0 cephalexin [Keflex] 500 mg capsule 500 mg PO Q6H 10 Days Qty: 40 RF: 0 Referrals Referrals: Donte Szymanski DO [Primary Care Provider] -
[2020-02-13] MEDS ORDERED: HYDROCODONE/ACETAMOPHEN 5/325MG TAB PO STA (15:44)
[2020-02-13 15:51] LABS: Basophils # (auto) 0.03 K/uL (0-0.2); Basophils % (auto) 0.3 %; Eosinophils # (auto) 0.32 K/uL (0-0.5); Hematocrit (blood only) 46.7 % (42-52); Hemoglobin 14.5 g/dL (14.0-18.0); Immature Granulocytes # (auto) 0.01 K/uL (0.00-0.02); Immature Granulocytes % (auto) 0.1 %; Lymphocytes # (auto) 0.82 K/uL (1.2-3.4); Lymphocytes % (auto) 7.8 %; Mean Corpuscular Hemoglobin 28.7 pg (25-34); Mean Corpuscular Volume 92.3 fL (80-100); Monocytes # (auto) 0.62 K/uL (0.11-0.59); Monocytes % (auto) 5.9 %; Neutrophils # (auto) 8.72 K/uL (1.4-6.5); Neutrophils % (auto) 82.9 %; Platelet Count 271 K/uL (130-400); RDW Coefficient of Variation 16.1 % (11.5-14.5); RDW Standard Deviation 54.7 fL (36.4-46.3); Red Blood Count 5.06 M/uL (4.7-6.1); White Blood Count 10.52 K/uL (4.8-10.8)
--- NOTE | 2020-02-13 15:55 | XRay Report ---
SINGLE VIEW CHEST CLINICAL HISTORY: Sepsis. FINDINGS: 2 AP, portable, semierect chest radiographs are compared to study dated 02/12/2020. Correlat ion is made with chest CT dated 08/21/2018. The examination is degraded by portable technique, apical lordotic positioning, and patient rotation. The heart is enlarged noting atherosclerotic calcificati on of the thoracic aorta. There is mild pulmonary vascular congestion. Scarring/atelectasis is seen a t the lung bases. No focal airspace consolidation or large pleural effusion is identified. No pneumot horax is seen. The skeletal structures are osteopenic. The bony thorax is grossly intact. Arthritic c hange is seen in the shoulders. IMPRESSION: 1. Cardiomegaly with evidence of mild congestive failure. This is similar to yesterday. 2. No focal airspace consolidation or large pleural effusion is identified. Electronically signed by: Bernardo Toscano M.D. 02/13/2020 3:53 PM
[2020-02-13] MEDS ORDERED: FUROSEMIDE 40 MG/4 ML VIAL IV STA (16:01)
[2020-02-13 16:03] LABS: INR 1.1 (0.9-1.1); Partial Thromboplastin Ratio 1.1; Partial Thromboplastin Time 30.1 Seconds (21.0-31.0)
[2020-02-13 16:08] LABS: Blood Urea Nitrogen 28 mg/dl (7-18); Calcium 8.3 mg/dl (8.5-10.1); Carbon Dioxide 27 mmol/L (21-32); Chloride 106 mmol/L (98-107); Glucose 107 mg/dl (70-99); Magnesium 2.6 mg/dl (1.8-2.4); Potassium 4.4 mmol/L (3.5-5.1); Sodium 140 mmol/L (136-145)
[2020-02-13 16:09] LABS: Alanine Aminotransferase 13 U/L (12-78); Aspartate Aminotransferase 16 U/L (15-37); BUN Creatinine Ratio 17.4 (10-20); Creatinine Clr Calc Pharmacy 56.1 ml/min; Est GFR (African American) 46.1; Est GFR (Non-African American) 39.8
[2020-02-13] MEDS ORDERED: GELATIN SPONGE 12-7MM ONE ×2 (16:14→16:15)
[2020-02-13 16:18] LABS: Albumin Globulin Ratio 0.5 (0.9-2); Alkaline Phosphatase 81 U/L (45-117); Bilirubin,Total 0.6 mg/dl (0.2-1); Globulin 5.5 gm/dl (2.5-4.0); NT Pro B Type Natriuretic Pept 6758 pg/ml (0-1800); Total Protein 8.5 gm/dl (6.4-8.2); Troponin I < 0.015 ng/ml (0-0.045)
[2020-02-13] MEDS ORDERED: CEFEPIME 20 ML IV STA (16:30)
[2020-02-13] MEDS ORDERED: DAPTOmycin 650 MG in SYRINGE 0 ML IV STA (16:31)
--- NOTE | 2020-02-13 17:15 | CT Scan Report ---
ABDOMEN AND PELVIS CT WITHOUT CONTRAST CT DOSE: 2331.80 mGy.cm HISTORY: Acute scrotal pain with possible abscess scrotal/perineal swelling redness eval for abscess TECHNIQUE: Multiaxial CT images of the abdomen and pelvis were performed without contrast. A dose lo wering technique was utilized adhering to the principles of ALARA. COMPARISON STUDY: CT abdomen pelvis 11/10/2019 FINDINGS: Trace pleural effusions. Minimal bibasilar atelectasis. Limited exam secondary to upper extremity pos itioning, lack of contrast and body habitus. Cardiomegaly. Coronary artery calcifications. The spleen , pancreas and adrenal glands are unremarkable. Cirrhotic liver disease. Cholecystectomy. Probable cysts of the right kidney measure up to 3.3 cm. No obstructive uropathy. Catheter is noted w ithin a decompressed urinary bladder. Extensive calcified plaque of the abdominal aorta without aneur ysm. No adenopathy. There is mild nonspecific stranding within the lyudmila hepatis and surrounding the proximal duodenum which is similar to comparison. There is no bowel obstruction. Mild fecal retention . Colonic diverticulosis without acute diverticulitis. Noninflamed appendix. Diastases recti with small fat filled periumbilical hernia. Subcutaneous stranding of the anterior ab dominal wall. There are a few nodular foci of the anterior abdominal wall measuring up to 2.7 cm, pos sibly reflective of injection granulomas. Skin thickening with subcutaneous edema involves the patien t's pannus and scrotum with nodular skin thickening noted posteriorly. No drainable fluid collection. No subcutaneous emphysema to suggest fasciitis. Degenerative changes of the spine, pelvis and hips. No acute fracture. Right hip total joint arthroplasty. IMPRESSION: 1. No acute intra-abdominal or intrapelvic abnormality. 2. Cirrhotic liver disease. 3. Moderate skin thickening and subcutaneous edema involving the lower aspect of the patient's pannus extends into the scrotum suggestive of cellulitis. There is no drainable fluid collection or subcuta neous emphysema to suggest fasciitis. 4. Trace pleural effusions. 5. Additional findings as above. ACT 112: Negative or not required by law. The above report was generated using voice recognition software. It may contain grammatical, syntax o r spelling errors. Electronically signed by: Brandin Kruse M.D. 02/13/2020 5:13 PM
[2020-02-13 18:03] LABS: Appearance Urine Clear (Clear); Bacteria Urine Automated Negative (Negative); Bilirubin Urine Negative (Negative); Blood Urine Trace (Negative); Color Urine Yellow; Epithelial Cell Urine Auto 0-5 /lpf (0-5); Glucose Urine UA Negative (Negative); Ketones Urine Negative (Negative); Leukocyte Esterase Urine 3+ (Negative); Nitrite Urine Positive (Negative); Protein Urine Negative (Negative); RBC Urine Automated 0-4 /hpf (0-4); Specific Gravity Urine 1.008 (1.000-1.030); Urobilinogen Urine Negative (Negative); WBC Urine Automated >30 /hpf (0-5); pH Urine 7.5 (4.5-7.5)
[2020-02-13] MEDS: HYDROmorphone INJ 1 MG/ML SYRINGE IV PRN ×2 (18:15→19:31)
--- NOTE | 2020-02-13 19:25 | History & Physical Report ---
Date of Service February 13, 2020 Assessment & Plan (1) Generalized weakness: Likely multifactorial related to many comorbid conditions and new hypoxia. Baseline ambulation is with a walker. PT/OT to assess. (2) Acute diastolic CHF (congestive heart failure): Typically on torsemide which he reports he has been taking. Reports 5lb weight gain in last week. BNP elevated>6K. Denies SOB at home. Denies coughing or other respiratory symptoms, no fever. Hypoxia likely 2/2 pulmonary vascular congestion seen on CXR yesterday, he received 500 cc of fluid and was back again today with persistent congestion and worsened hypoxia. He was just given 40mg IV in the ER and within a short amount of time had diuresed 1200cc into a new Patiño bag. He does have an elevated creatinine today which is improved from yesterday, however, with successful diuresis will hold any further Lasix until morning watching his creatinine at the same time. Asked for cardiology consult to assist with this as he is also a cirrhosis patient who is obese, making fluid assessments difficult. Trop negative. Denies chest pain. (3) Hypoxia: 2/2 CHF. Cont daily Lasix as above, with titrations per Cardiology. (4) Acute kidney injury: Avoid overdiuresis. Monitor BMP daily (5) Leg wound, left: does not appear infected. Wound care consulted for this pannus area, and scrotal area. 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 Broad spectrum abx -Dapto and Cefepime-renally dosed pending blood cultures and clinical improvement. Not septic. (7) Abdominal wall cellulitis: abx as above, cellulitis is a potential reason for his increased weakness. (8) Genital hemangioma: Chronic pain from this issue which also prevents him from receiving full dose anticoagulation in afib. He is receiving dialy aspirin and also DVT prophylaxis with heparin. Monitor for bleeding. Consulted wound care provider. (9) Seizures: h/o epilepsy. No recent seizures. Cont Keppra per home regimen. (10) Cirrhosis: No ascites on imaging. Nontender protuberant abdomen. Mentating clearly. Appears compensated. (11) Chronic pain: uses hydrocodone at home but was having severe pain, improved with dilaudid in the ER. (12) Atrial fibrillation: chronic, rate around 90bpm this evening. Cont metoprolol succinate. Cont ASA. (13) BPH w urinary obs/LUTS: Cont finasteride per home regimen. Chronic patiño in place. (14) Obstructive sleep apnea: Cannot tolerate CPAP. (15) Diabetes mellitus with diabetic polyneuropathy: Hold Januvia, metformin per home regimen. Basal bolus insulin while hospitalized. A1C check in the morning. (16) Obesity: Lifestyle modifications recommended. (17) DVT prophylaxis: Heparin Full Code as verified with patient on admission Dispo-to telemetry Marisol Daly DO [facility] Hospitalist History of Present Illness Chief Complaint: weakness Primary Care Provider: Donte Szymanski DO 79-year-old male with cirrhosis, atrial fibrillation, diabetes type 2 with polyneuropathy, history of seizures, BPH with LUTS status post chronic urinary catheter, history of C. difficile, history of open wound of scrotum, history of sacral ulcer stage II, obstructive sleep apnea without chronic CPAP use who pres ents with generalized weakness. He initially reported to the ER yesterday, 02/11 with report of generalized weakness unable to clothe himself. That morning he reports sliding off the chair on the floor and could not get up. Reported feeling progressively weaker the last couple of days but had no other issues. A chest x-ray at that time revealed moderate cardiomegaly with increased prominence of pulmonary vasculature and no well-defined focal infiltrate. EKG revealed atrial fibrillation which is known to this patient with a heart rate of 105 bpm. There was no evidence of ST elevation or PVCs. He was treated with IV Ancef and given 500 cc of normal saline. He was able to get around with a walker and felt he was stable for discharge. He was given Keflex and Bactrim for potential cellulitis of the left leg. He went home but states that his would not let him ambulate because she was still scared that he would fall. He presented again to the emergency room today, 02/12 reporting again generalized weakness. He again denied any respiratory symptoms, chest pain, cough, or fevers or chills. He presented with a fresh gash on his left lower leg and reports that an ambulance took him home last night and he had trouble getting up and slid off the stretcher injuring his left leg. He denied hitting his head or hurting any other part of his body. He reported having an up-to-date tetanus shot to the ER physician today. On arrival to the ER he was noted to be hypoxic requiring 4 L/min via nasal cannula to achieve an oxygenation of 92%. He is not on oxygen at home. Physical exam revealed an indwelling catheter and a large pannus with diffuse erythema in the skin folds. He also had a an enlarged scrotum with areas of skin degradation and mild bleeding. He is known to have this for the last 3 to 4 years and is a source of chronic pain controlled by hydrocodone. The patient reports this has not been controlling his pain in recent days. In the ER he was given hydrocodone acetaminophen 5/325mg x 1, furosemide 40 mg IV x1 dose, and he was started on daptomycin and cefepime for possible infection. He did not appear septic on exam. Upon my arrival he had already diuresed 1200 cc into a new Patiño catheter. Allergies Allergy/AdvReac Type Severity Reaction Status Date / Time metronidazole Allergy Severe Unknown Verified 02/13/20 16:05 amoxicillin Allergy Intermediate Rash Verified 02/13/20 16:05 Home Medications Home Medications Medication Instructions Recorded Confirmed Type ferrous sulfate 325 mg PO BID 06/16/18 02/13/20 History finasteride 5 mg PO DAILY 06/16/18 02/13/20 History metformin 500 mg PO QAM 06/16/18 02/13/20 History metoprolol succinate 200 mg PO DAILY 06/16/18 02/13/20 History pantoprazole 40 mg PO BID 06/16/18 02/13/20 History levetiracetam 500 mg PO BID 03/16/19 02/13/20 History Januvia 50 mg PO DAILY 06/17/19 02/13/20 History hydrocodone-acetaminophen 1 tab PO Q8H PRN 06/17/19 02/13/20 History potassium chloride 10 meq PO DAILY 06/17/19 02/13/20 History aspirin [Aspirin Low Dose] 81 mg PO DAILY 11/10/19 02/13/20 History torsemide See Rx Instructions .ROUTE .COMPLEX 11/10/19 02/13/20 History cephalexin [Keflex] 500 mg PO Q6H 10 Days #40 cap 02/12/20 02/13/20 Rx sulfamethoxazole-trimethoprim 1 tab PO Q12H #14 tab NS 02/12/20 02/13/20 Rx [Bactrim DS] 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 Acute urinary retention Atrial fibrillation with RVR Barretts esophagus Benign hypertension BPH without urinary obstruction Callus Chronic a-fib Chronic diastolic CHF (congestive heart failure) Chronic indwelling Patiño catheter Chronic venous insufficiency Complicated UTI (urinary tract infection) 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, with fat layer exposed Diverticulosis of colon (without mention of hemorrhage) DM (diabetes mellitus), type 2, uncontrolled w/ophthalmic complication Esophageal candidiasis Exertional dyspnea Gastric ulcer with hemorrhage but without obstruction H/O Clostridium difficile infection Hemangioma of skin History of chronic atrial fibrillation Hypertension Hypoxia ICH (intracerebral hemorrhage) Morbid obesity Open wound of scrotum JUAN MANUEL (obstructive sleep apnea) Peripheral arterial disease Rhabdomyolysis Scrotal varicose veins Skin ulcer of left foot including toes Symptomatic anemia Urinary retention Surgical History History of total replacement of right hip S/P cholecystectomy S/P tonsillectomy and adenoidectomy Family History Other No significant family history Social History Smoking Status: Never smoker Second Hand Exposure: No; Hx Alcohol Use: No Hx Substance Use: No Preferred Language: Austrian 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 Ability: Effective Dolly Driver Required: No Beliefs That Will Affect Care: None marital status: Current Living Situation: Spouse Current Living Situation Comment: Home with spouse Other Information That Helps Us Care for You: No Feels Safe at Home: Yes Safety Concerns: Feels Safe At This Time Review of Systems Review of Systems: All systems reviewed & are unremarkable except as noted in Subjective Physical Exam Physical Exam: CONSTITUTIONAL: obese, vitals as above, generally well- appearing after having Dilaudid-was initially very uncomfortable 2/2 scrotal pain EYES: pupils are round and equal bilaterally, normal conjunctivae, no scleral icterus ENT: external ear and nose normal, oropharynx clear, no TM abnormality, no maxillary or ethmoid sinus tenderness NECK: trachea midline, +JVD RESPIRATORY: clear to auscultation bilaterally, no crackles, rales or wheezes, normal respiratory effort CARDIOVASCULAR: normal rate, irreg rhythm, S1 and 2 heard without murmurs, gallops or rubs, + JVD, no peripheral edema CHEST: inspection of chest was normal GASTROINTESTINAL: normal bowel sounds, soft, nontender, nondistended no guarding, protuberant abdomen, significant erythema and irritation within skin folds and under pannus into groin area. : large erythematous scrotal mass, stool is present around this area, buried penis not visualized MUSCULOSKELETAL: strength 5/5 throughout, head is normocephalic and atraumatic SKIN: warm and dry, erythema on scrotum and abdomen as above. 5-10 cm abrasive wound that is nondraining on left lower leg. No surrounding redness suggestive of cellutis in this area. +erythroderma on bilateral lower legs. NEUROLOGIC: No facial palsy, no dysarthria. CN 2-12 grossly intact, no sensory deficit, normal cognition, normal speech, no tremor. No gross neuro deficits. Gait or ability to stand was not tested 2/2 potential fall risk PSYCHIATRIC: alert cooperative and oriented Results & Data Results & Data ([facility]) Vital Signs (Past 12 Hours) Vital Signs Temp Pulse Pulse Resp BP BP Pulse Ox 02/13/20 19:19 88 20 129/76 92 02/13/20 17:49 92 02/13/20 17:48 85 20 149/99 H 92 02/13/20 16:26 93 H 20 104/79 92 02/13/20 14:50 36.7 C 93 H 20 126/68 88 L Laboratory Results Short CBC 02/13/20 02/14/20 Range/Units 15:30 06:22 WBC 10.52 7.89 (4.8-10.8) K/uL Hgb 14.5 14.1 (14.0-18.0) g/dL Hct 46.7 45.1 (42-52) % Plt Count 271 223 (130-400) K/uL BMP 02/13/20 02/14/20 15:30 06:22 Sodium 140 142 Potassium 4.4 4.3 Chloride 106 108 H Carbon Dioxide 27 28 BUN 28 H 28 H Creatinine 1.62 H 1.52 H Glucose 107 H 102 H Calcium 8.3 L 8.1 L Cardiac Enzymes 02/13/20 Range/Units 15:30 Troponin I < 0.015 (0-0.045) ng/ml Liver Function 02/13/20 Range/Units 15:30 Total Bilirubin 0.6 (0.2-1) mg/dl AST 16 (15-37) U/L ALT 13 (12-78) U/L Alkaline Phosphatase 81 (45-117) U/L Albumin 3.0 L (3.4-5.0) gm/dl Urine 02/13/20 Range/Units 17:38 Urine Color Yellow Urine Appearance Clear (Clear) Urine pH 7.5 (4.5-7.5) Ur Specific [place] 1.008 (1.000-1.030) Urine Protein Negative (Negative) Urine Glucose (UA) Negative (Negative) Diagnostic Findings Study: Survey abdominal ultrasound HISTORY: Ascites. COMPARISON: 03/16/2019 FINDINGS: Somewhat limited exam due to patient body habitus. No evidence for ascites on survey evaluation. IMPRESSION: No evidence for ascites ABDOMEN AND PELVIS CT WITHOUT CONTRAST CT DOSE: 2331.80 mGy.cm HISTORY: Acute scrotal pain with possible abscess scrotal/perineal swelling redness eval for abscess TECHNIQUE: Multiaxial CT images of the abdomen and pelvis were performed without contrast. A dose lowering technique was utilized adhering to the principles of ALARA. COMPARISON STUDY: CT abdomen pelvis 11/10/2019 FINDINGS: Trace pleural effusions. Minimal bibasilar atelectasis. Limited exam secondary to upper extremity positioning, lack of contrast and body habitus. Cardiomegaly. Coronary artery calcifications. The spleen, pancreas and adrenal glands are unremarkable. Cirrhotic liver disease. Cholecystectomy. Probable cysts of the right kidney measure up to 3.3 cm. No obstructive uropathy. Catheter is noted within a decompressed urinary bladder. Extensive calcified plaque of the abdominal aorta without aneurysm. No adenopathy. There is mild nonspecific stranding within the lyudmila hepatis and surrounding the proximal duodenum which is similar to comparison. There is no bowel obstruction. Mild fecal retention. Colonic diverticulosis without acute diverticulitis. Noninflamed appendix. Diastases recti with small fat filled periumbilical hernia. Subcutaneous stranding of the anterior abdominal wall. There are a few nodular foci of the anterior abdominal wall measuring up to 2.7 cm, possibly reflective of injection granulomas. Skin thickening with subcutaneous edema involves the patient's pa nnus and scrotum with nodular skin thickening noted posteriorly. No drainable fluid collection. No subcutaneous emphysema to suggest fasciitis. Degenerative changes of the spine, pelvis and hips. No acute fracture. Right hip total joint arthroplasty. IMPRESSION: 1. No acute intra-abdominal or intrapelvic abnormality. 2. Cirrhotic liver disease. 3. Moderate skin thickening and subcutaneous edema involving the lower aspect of the patient's pannus extends into the scrotum suggestive of cellulitis. There is no drainable fluid collection or subcutaneous emphysema to suggest fasciitis. 4. Trace pleural effusions. 5. Additional findings as above. SINGLE VIEW CHEST CLINICAL HISTORY: Sepsis. FINDINGS: 2 AP, portable, semierect chest radiographs are compared to study dated 02/12/2020. Correlation is made with chest CT dated 08/21/2018. The examination is degraded by portable technique, apical lordotic positioning, and patient rotation. The heart is enlarged noting atherosclerotic calcification of the thoracic aorta. There is mild pulmonary vascular congestion. Scarring/atelectasis is seen at the lung bases. No focal airspace consolidation or large pleural effusion is identified. No pneumothorax is seen. The skeletal structures are osteopenic. The bony thorax is grossly intact. Arthritic change is seen in the shoulders. IMPRESSION: 1. Cardiomegaly with evidence of mild congestive failure. This is similar to yesterday. 2. No focal airspace consolidation or large pleural effusion is identified. Code Status & VTE Plan VTE Prophylaxis Plan VTE Prophylaxis will be ordered: Yes
[2020-02-13] MEDS ORDERED: GLUCAGON FOR INJ 1 MG VIAL SQ PRN ×2 (19:54→20:07)
[2020-02-13] MEDS ORDERED: CARBOHYDRATES FOR HYPOGLYCEMIA PO PRN ×2 (19:54→20:07)
[2020-02-13] MEDS ORDERED: GLUCOSE 10 TABS/TUBE PO PRN ×2 (19:54→20:07)
[2020-02-13] MEDS ORDERED: DEXTROSE 50% 50 ML SYRINGE IV PRN ×2 (19:54→20:07)
[2020-02-13] MEDS ORDERED: GLUCOSE 40% GEL 15 GM TUBE PO PRN ×2 (19:54→20:07)
[2020-02-13] MEDS ORDERED: DAPTOMYCIN CONSULT ACTIVE SCH (20:23)
[2020-02-13] MEDS ORDERED: INSULIN ASPART 100 UNITS/ML 3 ML PEN SC SCH (21:00)
[2020-02-13] MEDS ORDERED: INSULIN GLARGINE SOLOSTAR 100 UNITS/ML 3 ML PEN SC SCH (21:00)
[2020-02-13] MEDS: HEPARIN SODIUM (PORCINE) 7,500 UNITS in SYRINGE 0 ML SQ SCH (21:41)
[2020-02-13] MEDS: INSULIN ASPART 100 UNITS/ML 3 ML PEN SC SCH (21:42)
[2020-02-13] MEDS: INSULIN GLARGINE SOLOSTAR 100 UNITS/ML 3 ML PEN SC SCH (21:42)
[2020-02-13] MEDS ORDERED: HEPARIN SOD 5,000 UNIT/0.5 ML VIAL SQ SCH (22:00)
[2020-02-13] MEDS ORDERED: HEPARIN SODIUM (PORCINE) 7,500 UNITS in SYRINGE 0 ML IV SCH (22:00)
[2020-02-13] MEDS: levETIRAcetam 500 MG TAB PO SCH (22:01)
[2020-02-13] MEDS: PANTOprazole 40 MG TAB PO SCH (22:01)
[2020-02-13] MEDS: FERROUS SULFATE 325 MG TAB PO SCH (22:01)
[2020-02-14] MEDS: HYDROCODONE/ACETAMOPHEN 5/325MG TAB PO PRN ×3 (01:10→21:03)
[2020-02-14] MEDS: HEPARIN SODIUM (PORCINE) 7,500 UNITS in SYRINGE 0 ML SQ SCH ×3 (06:04→21:08)
--- NOTE | 2020-02-14 06:27 | Ultrasound Report ---
Study: Survey abdominal ultrasound HISTORY: Ascites. COMPARISON: 03/16/2019 FINDINGS: Somewhat limited exam due to patient body habitus. No evidence for ascites on survey evalua tion. IMPRESSION: No evidence for ascites Electronically signed by: Fidencio Slater M.D. 02/14/2020 6:26 AM
--- NOTE | 2020-02-14 06:40 | Electrocardiogram Report ---
Test Reason : Blood Pressure : / mmHG Vent. Rate : 092 BPM Atrial Rate : 081 BPM P-R Int : 000 ms QRS Dur : 096 ms QT Int : 404 ms P-R-T Axes : 000 -67 123 degrees QTc Int : 499 ms Poor data quality, interpretation may be adversely affected Atrial fibrillation Left anterior fascicular block T wave abnormality, consider lateral ischemia Abnormal ECG When compared with ECG of 12-FEB-2020 10:04, No significant change was found Confirmed by Negrito Greenwood ([id number]) on 02/14/2020 6:40:13 AM Referred By: REFERRED SELF Confirmed By:Negrito Greenwood
[2020-02-14 07:05] LABS: Hematocrit (blood only) 45.1 % (42-52); Hemoglobin 14.1 g/dL (14.0-18.0); Mean Corpuscular Hemoglobin 29.2 pg (25-34); Mean Corpuscular Hgb Conc 31.3 g/dL (32-36); Mean Corpuscular Volume 93.4 fL (80-100); Mean Platelet Volume 10.4 fL (7.4-10.4); Platelet Count 223 K/uL (130-400); RDW Standard Deviation 54.6 fL (36.4-46.3); Red Blood Count 4.83 M/uL (4.7-6.1); White Blood Count 7.89 K/uL (4.8-10.8)
[2020-02-14 07:41] LABS: BUN Creatinine Ratio 18.3 (10-20); Calcium 8.1 mg/dl (8.5-10.1); Creatinine Clr Calc Pharmacy 59.6 ml/min; Est GFR (African American) 49.8; Potassium 4.3 mmol/L (3.5-5.1)
[2020-02-14] MEDS: POTASSIUM CHLORIDE 10 MEQ TABCR PO SCH (07:52)
[2020-02-14] MEDS: FUROSEMIDE 40 MG in SYRINGE 0 ML IV SCH (07:52)
[2020-02-14] MEDS: ACETAMINOPHEN 325 MG TAB PO PRN ×2 (07:52→16:01)
[2020-02-14] MEDS: FINASTERIDE 5 MG TAB PO SCH (07:53)
[2020-02-14] MEDS: FERROUS SULFATE 325 MG TAB PO SCH ×2 (07:53→21:07)
[2020-02-14] MEDS: levETIRAcetam 500 MG TAB PO SCH ×2 (07:53→21:06)
[2020-02-14] MEDS: METOPROLOL SUCC 50MG EXT REL TAB PO SCH (07:53)
[2020-02-14] MEDS: ASPIRIN 81 MG ECTAB PO SCH (07:53)
[2020-02-14] MEDS: PANTOprazole 40 MG TAB PO SCH ×2 (07:53→21:06)
[2020-02-14] MEDS: INSULIN ASPART 100 UNITS/ML 3 ML PEN SC SCH ×4 (07:55→21:08)
[2020-02-14] MEDS: INSULIN GLARGINE SOLOSTAR 100 UNITS/ML 3 ML PEN SC SCH ×2 (08:05→21:05)
[2020-02-14 08:35] LABS: Estimated Average Glucose 137 mg/dl; Hemoglobin A1C 6.4 % (4.5-5.6)
[2020-02-14] MEDS ORDERED: FUROSEMIDE 40 MG/4 ML VIAL IV SCH (09:00)
--- NOTE | 2020-02-14 12:18 | Cardiology Consultation ---
Date of Consultation February 14, 2020 Assessment & Plan (1) Generalized weakness: (2) Acute diastolic heart failure: (3) Atrial fibrillation with rapid ventricular response: Patient admitted with generalized weakness, progressive x 2 weeks according to 's report on admission. He denies these issues. Urinary and blood cultures pending. He has a long history of urinary sepsis likely contributing to his symptoms. He is mildly volume overloaded, consistent with diastolic HF and recommend IV lasix. Monitor I+O's Monitor BMP. Cardiac enzymes are unremarkable. He had echo in November 2019, at which time his cardiac enzymes were elevated, and he had hyperdynamic function. No need to repeat at this time His heart rates have trended down since admission. Continue home dose metoprolol. He is not anticoagulated due to history of large volume bleeding from scrotal vasuclar malformation/wounds and history of frontal hemorrhage after a fall. Case discussed with Dr. Harrington. Supervising Physician Co-Signing Physician Notes Patient was seen and personally examined. Assessment and plan as well outlined above. Patient with longstanding history of diastolic dysfunction and mild congestive heart failure right greater than left. Appears mildly volume overloaded on exam with weight up approximately 8 kg Severity however does not peer to account for acute presentation Plans for diuresis as outlined above We will need treatment of multiple underlying morbidities as well History of Present Illness Reason for Consultation: Diastolic HF; Weakness Attending Physician: Tobi Chaidez MD History of Present Illness Patient is a 79-year-old male who is known to [facility] cardiology for history of chronic AFib, and chronic diastolic heart failure. he was admitted on February 13, 2020 due to progressive weakness and inability to stand after a fall from his chair at home. Per admission records, reported progressive weakness over the last 2 weeks. Patient has a long history of frequent urinary infections and urosepsis. Urine cultures and blood cultures are currently pending. He was started on antibiotic therapy. Chest x-ray revealed mild pulmonary vascular congestion. He was started on IV Lasix. cardiac enzymes unremarkable. EKG demonstrated mild T-wave inversion lateral leads. No chest pain. At time of consult, patient reports feeling well. Anxious for discharge. He has not been out of bed. Denies weakness that was admitting diagnosis. He denies chest pain or worsening shortness of breath. No orthopnea, PND. Chronic venous stasis and lower extremity wounds noted. He voices no concerns today. Past medical history: 1. Chronic diastolic heart failure preserved systolic function 2. Chronic rate controlled atrial fibrillation. - Anticoagulation discontinued due to large volume bleeding related to large perineal/scrotal vascular malformation as well as history of small intracranial bleed secondary to trauma 3. Morbid obesity 4. HTN - controlled 5. Dyslipidemia goal LDL less than 100mg/dL - controlled 6. H/o mechanical fall with resultant head trauma, small frontal parenchymal hemorrhage, and suboccipital hematoma. - no recurrent falls over the last 6 months 7. JUAN MANUEL - intolerant to CPAP 8. Insulin resistance/ Metabolic syndrome Allergies Allergy/AdvReac Type Severity Reaction Status Date / Time metronidazole Allergy Severe Unknown Verified 02/13/20 16:05 amoxicillin Allergy Intermediate Rash Verified 02/13/20 16:05 Home Medications Home Medications Medication Instructions Recorded Confirmed Type ferrous sulfate 325 mg PO BID 06/16/18 02/13/20 History finasteride 5 mg PO DAILY 06/16/18 02/13/20 History metformin 500 mg PO QAM 06/16/18 02/13/20 History metoprolol succinate 200 mg PO DAILY 06/16/18 02/13/20 History pantoprazole 40 mg PO BID 06/16/18 02/13/20 History levetiracetam 500 mg PO BID 03/16/19 02/13/20 History Januvia 50 mg PO DAILY 06/17/19 02/13/20 History hydrocodone-acetaminophen 1 tab PO Q8H PRN 06/17/19 02/13/20 History potassium chloride 10 meq PO DAILY 06/17/19 02/13/20 History aspirin [Aspirin Low Dose] 81 mg PO DAILY 11/10/19 02/13/20 History torsemide See Rx Instructions .ROUTE .COMPLEX 11/10/19 02/13/20 History cephalexin [Keflex] 500 mg PO Q6H 10 Days #40 cap 02/12/20 02/13/20 Rx sulfamethoxazole-trimethoprim 1 tab PO Q12H #14 tab NS 02/12/20 02/13/20 Rx [Bactrim DS] Patient History Medical History 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 Acute urinary retention Atrial fibrillation with RVR Barretts esophagus Benign hypertension BPH without urinary obstruction Callus Chronic a-fib Chronic diastolic CHF (congestive heart failure) Chronic indwelling Baires catheter Chronic venous insufficiency Complicated UTI (urinary tract infection) 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, with fat layer exposed Diverticulosis of colon (without mention of hemorrhage) DM (diabetes mellitus), type 2, uncontrolled w/ophthalmic complication Esophageal candidiasis Exertional dyspnea Gastric ulcer with hemorrhage but without obstruction H/O Clostridium difficile infection Hemangioma of skin History of chronic atrial fibrillation Hypertension Hypoxia ICH (intracerebral hemorrhage) Morbid obesity Open wound of scrotum JUAN MANUEL (obstructive sleep apnea) Peripheral arterial disease Rhabdomyolysis Scrotal varicose veins Skin ulcer of left foot including toes Symptomatic anemia Urinary retention Surgical History History of total replacement of right hip S/P cholecystectomy S/P tonsillectomy and adenoidectomy Family History Other No significant family history Social History Smoking Status: Never smoker Second Hand Exposure: No; Hx Alcohol Use: No Hx Substance Use: No Preferred Language: Palestinian 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 Ability: Effective 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: No Beliefs That Will Affect Care: None marital status: Current Living Situation: Spouse Current Living Situation Comment: Home with spouse Other Information That Helps Us Care for You: No Feels Safe at Home: Yes Safety Concerns: Feels Safe At This Time Review of Systems Review of Systems: All systems reviewed & are unremarkable except as noted in HPI & below Physical Exam Constitutional: WD/WN, vitals as above + morbidly obese Respiratory: no respiratory distress Auscultation: + diminished lung sounds and + crackles (faint bibasilar) Cardiovascular: Rate/Rhythm: + irregularly irregular Heart Sounds: + murmur (II/ systolic murmur) Extremities: + edema (1+ with chronic stasis changes, left leg wrapped. ) Gastrointestinal (Abdomen): normal bowel sounds, soft, nontender, no hepatosplenomegaly Musculoskeletal: no cyanosis or clubbing, extremities motor strength 5/5 Neurologic: PERRL, EOMI, accommodation nl, no face palsy, no dysarthria Psychiatric: A+Ox3, euthymic affect Results & Data (MN) Vital Signs (Past 12 Hours) Vital Signs Temp Pulse Pulse Resp BP Pulse Ox 02/14/20 11:31 36.4 C L 70 16 102/66 96 02/14/20 07:30 36.3 C L 81 16 107/72 96 02/14/20 03:43 36.4 C L 77 16 106/59 L 96 Laboratory Results 02/14/20 02/14/20 02/14/20 Range/Units 11:59 07:11 06:22 WBC (4.8-10.8) K/uL RBC (4.7-6.1) M/uL Hgb (14.0-18.0) g/dL Hct (42-52) % MCV (80-100) fL MCH (25-34) pg MCHC (32-36) g/dL RDW Std Deviation (36.4-46.3) fL RDW Coeff of Shadi (11.5-14.5) % Plt Count (130-400) K/uL MPV (7.4-10.4) fL Immature Gran % (Auto) % Neut % (Auto) % Lymph % (Auto) % Pershing % (Auto) % Eos % (Auto) % Baso % (Auto) % Neut # (Auto) (1.4-6.5) K/uL Lymph # (Auto) (1.2-3.4) K/uL Pershing # (Auto) (0.11-0.59) K/uL Eos # (Auto) (0-0.5) K/uL Baso # (Auto) (0-0.2) K/uL Immature Gran # (Auto) (0.00-0.02) K/uL PT (9.0-12.0) Seconds INR (0.9-1.1) APTT (21.0-31.0) Seconds PTT Ratio Sodium (136-145) mmol/L Potassium (3.5-5.1) mmol/L Chloride (98-107) mmol/L Carbon Dioxide (21-32) mmol/L Anion Gap (3-11) BUN (7-18) mg/dl Creatinine (0.6-1.4) mg/dl Est Cr Clr Drug Dosing ml/min Est GFR ( Amer) Est GFR (Non-Af Amer) BUN/Creatinine Ratio (10-20) Glucose (70-99) mg/dl POC Glucose 125 H 116 H (70-99) mg/dl Estimat Average Glucose 137 mg/dl Hemoglobin A1c 6.4 H (4.5-5.6) % Lactate (0.4-2.0) mmol/L Calcium (8.5-10.1) mg/dl Magnesium (1.8-2.4) mg/dl Total Bilirubin (0.2-1) mg/dl AST (15-37) U/L ALT (12-78) U/L Alkaline Phosphatase (45-117) U/L Troponin I (0-0.045) ng/ml NT-Pro-B Natriuret Pep (0-1800) pg/ml Total Protein (6.4-8.2) gm/dl Albumin (3.4-5.0) gm/dl Globulin (2.5-4.0) gm/dl Albumin/Globulin Ratio (0.9-2) Urine Color Urine Appearance (Clear) Urine pH (4.5-7.5) Ur Specific Falls (1.000-1.030) Urine Protein (Negative) Urine Glucose (UA) (Negative) Urine Ketones (Negative) Urine Blood (Negative) Urine Nitrite (Negative) Urine Bilirubin (Negative) Urine Urobilinogen (Negative) Ur Leukocyte Esterase (Negative) Urine WBC (Auto) (0-5) /hpf Urine RBC (Auto) (0-4) /hpf U Hyaline Cast (Auto) (0-5) /lpf U Epithel Cells (Auto) (0-5) /lpf Urine Bacteria (Auto) (Negative) 02/14/20 02/14/20 02/13/20 Range/Units 06:22 06:22 22:09 WBC 7.89 (4.8-10.8) K/uL RBC 4.83 (4.7-6.1) M/uL Hgb 14.1 (14.0-18.0) g/dL Hct 45.1 (42-52) % MCV 93.4 (80-100) fL MCH 29.2 (25-34) pg MCHC 31.3 L (32-36) g/dL RDW Std Deviation 54.6 H (36.4-46.3) fL RDW Coeff of Shadi 16.0 H (11.5-14.5) % Plt Count 223 (130-400) K/uL MPV 10.4 (7.4-10.4) fL Immature Gran % (Auto) % Neut % (Auto) % Lymph % (Auto) % Pershing % (Auto) % Eos % (Auto) % Baso % (Auto) % Neut # (Auto) (1.4-6.5) K/uL Lymph # (Auto) (1.2-3.4) K/uL Pershing # (Auto) (0.11-0.59) K/uL Eos # (Auto) (0-0.5) K/uL Baso # (Auto) (0-0.2) K/uL Immature Gran # (Auto) (0.00-0.02) K/uL PT (9.0-12.0) Seconds INR (0.9-1.1) APTT (21.0-31.0) Seconds PTT Ratio Sodium 142 (136-145) mmol/L Potassium 4.3 (3.5-5.1) mmol/L Chloride 108 H (98-107) mmol/L Carbon Dioxide 28 (21-32) mmol/L Anion Gap 6.0 (3-11) BUN 28 H (7-18) mg/dl Creatinine 1.52 H (0.6-1.4) mg/dl Est Cr Clr Drug Dosing 59.6 ml/min Est GFR ( Amer) 49.8 Est GFR (Non-Af Amer) 43.0 BUN/Creatinine Ratio 18.3 (10-20) Glucose 102 H (70-99) mg/dl POC Glucose (70-99) mg/dl Estimat Average Glucose mg/dl Hemoglobin A1c (4.5-5.6) % Lactate 1.7 (0.4-2.0) mmol/L Calcium 8.1 L (8.5-10.1) mg/dl Magnesium (1.8-2.4) mg/dl Total Bilirubin (0.2-1) mg/dl AST (15-37) U/L ALT (12-78) U/L Alkaline Phosphatase (45-117) U/L Troponin I (0-0.045) ng/ml NT-Pro-B Natriuret Pep (0-1800) pg/ml Total Protein (6.4-8.2) gm/dl Albumin (3.4-5.0) gm/dl Globulin (2.5-4.0) gm/dl Albumin/Globulin Ratio (0.9-2) Urine Color Urine Appearance (Clear) Urine pH (4.5-7.5) Ur Specific Falls (1.000-1.030) Urine Protein (Negative) Urine Glucose (UA) (Negative) Urine Ketones (Negative) Urine Blood (Negative) Urine Nitrite (Negative) Urine Bilirubin (Negative) Urine Urobilinogen (Negative) Ur Leukocyte Esterase (Negative) Urine WBC (Auto) (0-5) /hpf Urine RBC (Auto) (0-4) /hpf U Hyaline Cast (Auto) (0-5) /lpf U Epithel Cells (Auto) (0-5) /lpf Urine Bacteria (Auto) (Negative) 02/13/20 02/13/20 02/13/20 Range/Units 20:06 17:49 17:38 WBC (4.8-10.8) K/uL RBC (4.7-6.1) M/uL Hgb (14.0-18.0) g/dL Hct (42-52) % MCV (80-100) fL MCH (25-34) pg MCHC (32-36) g/dL RDW Std Deviation (36.4-46.3) fL RDW Coeff of Shadi (11.5-14.5) % Plt Count (130-400) K/uL MPV (7.4-10.4) fL Immature Gran % (Auto) % Neut % (Auto) % Lymph % (Auto) % Pershing % (Auto) % Eos % (Auto) % Baso % (Auto) % Neut # (Auto) (1.4-6.5) K/uL Lymph # (Auto) (1.2-3.4) K/uL Pershing # (Auto) (0.11-0.59) K/uL Eos # (Auto) (0-0.5) K/uL Baso # (Auto) (0-0.2) K/uL Immature Gran # (Auto) (0.00-0.02) K/uL PT (9.0-12.0) Seconds INR (0.9-1.1) APTT (21.0-31.0) Seconds PTT Ratio Sodium (136-145) mmol/L Potassium (3.5-5.1) mmol/L Chloride (98-107) mmol/L Carbon Dioxide (21-32) mmol/L Anion Gap (3-11) BUN (7-18) mg/dl Creatinine (0.6-1.4) mg/dl Est Cr Clr Drug Dosing ml/min Est GFR ( Amer) Est GFR (Non-Af Amer) BUN/Creatinine Ratio (10-20) Glucose (70-99) mg/dl POC Glucose 110 H (70-99) mg/dl Estimat Average Glucose mg/dl Hemoglobin A1c (4.5-5.6) % Lactate 2.1 H* (0.4-2.0) mmol/L Calcium (8.5-10.1) mg/dl Magnesium (1.8-2.4) mg/dl Total Bilirubin (0.2-1) mg/dl AST (15-37) U/L ALT (12-78) U/L Alkaline Phosphatase (45-117) U/L Troponin I (0-0.045) ng/ml NT-Pro-B Natriuret Pep (0-1800) pg/ml Total Protein (6.4-8.2) gm/dl Albumin (3.4-5.0) gm/dl Globulin (2.5-4.0) gm/dl Albumin/Globulin Ratio (0.9-2) Urine Color Yellow Urine Appearance Clear (Clear) Urine pH 7.5 (4.5-7.5) Ur Specific Falls 1.008 (1.000-1.030) Urine Protein Negative (Negative) Urine Glucose (UA) Negative (Negative) Urine Ketones Negative (Negative) Urine Blood Trace H (Negative) Urine Nitrite Positive A (Negative) Urine Bilirubin Negative (Negative) Urine Urobilinogen Negative (Negative) Ur Leukocyte Esterase 3+ H (Negative) Urine WBC (Auto) >30 H (0-5) /hpf Urine RBC (Auto) 0-4 (0-4) /hpf U Hyaline Cast (Auto) 1-5 (0-5) /lpf U Epithel Cells (Auto) 0-5 (0-5) /lpf Urine Bacteria (Auto) Negative (Negative) 02/13/20 02/13/20 02/13/20 Range/Units 15:30 15:30 15:30 WBC (4.8-10.8) K/uL RBC (4.7-6.1) M/uL Hgb (14.0-18.0) g/dL Hct (42-52) % MCV (80-100) fL MCH (25-34) pg MCHC (32-36) g/dL RDW Std Deviation (36.4-46.3) fL RDW Coeff of Shadi (11.5-14.5) % Plt Count (130-400) K/uL MPV (7.4-10.4) fL Immature Gran % (Auto) % Neut % (Auto) % Lymph % (Auto) % Pershing % (Auto) % Eos % (Auto) % Baso % (Auto) % Neut # (Auto) (1.4-6.5) K/uL Lymph # (Auto) (1.2-3.4) K/uL Pershing # (Auto) (0.11-0.59) K/uL Eos # (Auto) (0-0.5) K/uL Baso # (Auto) (0-0.2) K/uL Immature Gran # (Auto) (0.00-0.02) K/uL PT 12.0 (9.0-12.0) Seconds INR 1.1 (0.9-1.1) APTT 30.1 (21.0-31.0) Seconds PTT Ratio 1.1 Sodium 140 (136-145) mmol/L Potassium 4.4 (3.5-5.1) mmol/L Chloride 106 (98-107) mmol/L Carbon Dioxide 27 (21-32) mmol/L Anion Gap 7.0 (3-11) BUN 28 H (7-18) mg/dl Creatinine 1.62 H (0.6-1.4) mg/dl Est Cr Clr Drug Dosing 56.1 ml/min Est GFR ( Amer) 46.1 Est GFR (Non-Af Amer) 39.8 BUN/Creatinine Ratio 17.4 (10-20) Glucose 107 H (70-99) mg/dl POC Glucose (70-99) mg/dl Estimat Average Glucose mg/dl Hemoglobin A1c (4.5-5.6) % Lactate 3.0 H* (0.4-2.0) mmol/L Calcium 8.3 L (8.5-10.1) mg/dl Magnesium 2.6 H (1.8-2.4) mg/dl Total Bilirubin 0.6 (0.2-1) mg/dl AST 16 (15-37) U/L ALT 13 (12-78) U/L Alkaline Phosphatase 81 (45-117) U/L Troponin I < 0.015 (0-0.045) ng/ml NT-Pro-B Natriuret Pep 6758 H (0-1800) pg/ml Total Protein 8.5 H (6.4-8.2) gm/dl Albumin 3.0 L (3.4-5.0) gm/dl Globulin 5.5 H (2.5-4.0) gm/dl Albumin/Globulin Ratio 0.5 L (0.9-2) Urine Color Urine Appearance (Clear) Urine pH (4.5-7.5) Ur Specific Falls (1.000-1.030) Urine Protein (Negative) Urine Glucose (UA) (Negative) Urine Ketones (Negative) Urine Blood (Negative) Urine Nitrite (Negative) Urine Bilirubin (Negative) Urine Urobilinogen (Negative) Ur Leukocyte Esterase (Negative) Urine WBC (Auto) (0-5) /hpf Urine RBC (Auto) (0-4) /hpf U Hyaline Cast (Auto) (0-5) /lpf U Epithel Cells (Auto) (0-5) /lpf Urine Bacteria (Auto) (Negative) 02/13/20 Range/Units 15:30 WBC 10.52 (4.8-10.8) K/uL RBC 5.06 (4.7-6.1) M/uL Hgb 14.5 (14.0-18.0) g/dL Hct 46.7 (42-52) % MCV 92.3 (80-100) fL MCH 28.7 (25-34) pg MCHC 31.0 L (32-36) g/dL RDW Std Deviation 54.7 H (36.4-46.3) fL RDW Coeff of Shadi 16.1 H (11.5-14.5) % Plt Count 271 (130-400) K/uL MPV 10.0 (7.4-10.4) fL Immature Gran % (Auto) 0.1 % Neut % (Auto) 82.9 % Lymph % (Auto) 7.8 % Pershing % (Auto) 5.9 % Eos % (Auto) 3.0 % Baso % (Auto) 0.3 % Neut # (Auto) 8.72 H (1.4-6.5) K/uL Lymph # (Auto) 0.82 L (1.2-3.4) K/uL Pershing # (Auto) 0.62 H (0.11-0.59) K/uL Eos # (Auto) 0.32 (0-0.5) K/uL Baso # (Auto) 0.03 (0-0.2) K/uL Immature Gran # (Auto) 0.01 (0.00-0.02) K/uL PT (9.0-12.0) Seconds INR (0.9-1.1) APTT (21.0-31.0) Seconds PTT Ratio Sodium (136-145) mmol/L Potassium (3.5-5.1) mmol/L Chloride (98-107) mmol/L Carbon Dioxide (21-32) mmol/L Anion Gap (3-11) BUN (7-18) mg/dl Creatinine (0.6-1.4) mg/dl Est Cr Clr Drug Dosing ml/min Est GFR ( Amer) Est GFR (Non-Af Amer) BUN/Creatinine Ratio (10-20) Glucose (70-99) mg/dl POC Glucose (70-99) mg/dl Estimat Average Glucose mg/dl Hemoglobin A1c (4.5-5.6) % Lactate (0.4-2.0) mmol/L Calcium (8.5-10.1) mg/dl Magnesium (1.8-2.4) mg/dl Total Bilirubin (0.2-1) mg/dl AST (15-37) U/L ALT (12-78) U/L Alkaline Phosphatase (45-117) U/L Troponin I (0-0.045) ng/ml NT-Pro-B Natriuret Pep (0-1800) pg/ml Total Protein (6.4-8.2) gm/dl Albumin (3.4-5.0) gm/dl Globulin (2.5-4.0) gm/dl Albumin/Globulin Ratio (0.9-2) Urine Color Urine Appearance (Clear) Urine pH (4.5-7.5) Ur Specific Falls (1.000-1.030) Urine Protein (Negative) Urine Glucose (UA) (Negative) Urine Ketones (Negative) Urine Blood (Negative) Urine Nitrite (Negative) Urine Bilirubin (Negative) Urine Urobilinogen (Negative) Ur Leukocyte Esterase (Negative) Urine WBC (Auto) (0-5) /hpf Urine RBC (Auto) (0-4) /hpf U Hyaline Cast (Auto) (0-5) /lpf U Epithel Cells (Auto) (0-5) /lpf Urine Bacteria (Auto) (Negative) Diagnostic Findings Telemetry reviewed: Atrial fibrillation with a controlled ventricular response 80-100 beats per minute. EKG on admission: Atrial fibrillation with mildly elevated ventricular response at 105 bmp Left anterior fascicular block T wave inversion noted in lateral leads, new compared to prior evaluation Chest xray: mild pulm vascular congestion. No large pleural effusions. Repeat EKG: Atrial fibrillation with improved ventricular rates. T wave inversion in lateral leads Prior echocardiogram reviewed from [facility] admission in November 2019: Normal LV chamber size and wall thickness. Hyperdynamic LV systolic function without regional wall motion abnormality, ejection fraction greater than 70%. Aortic valve sclerosis moderate, without significant aortic valvular stenosis. Severe left atrial enlargement. Medications Administered Current Inpatient Medications Acetaminophen (Acetaminophen 325 Mg Tab) 650 mg PO Q4H PRN PRN Reason: Pain or Fever Stop: 03/14/20 20:06 Last Admin: 02/14/20 07:52 Dose: 650 mg Documented by: Hydrocodone Bitart/Acetaminophen (Hydrocodone/Acetamophen 5/325mg Tab) 1 tab PO Q8H PRN PRN Reason: Pain, Moderate Stop: 02/27/20 19:50 Last Admin: 02/14/20 12:24 Dose: 1 tab Documented by: Aspirin (Aspirin 81 Mg Ectab) 81 mg PO DAILY [facility] Stop: 03/15/20 08:59 Last Admin: 02/14/20 07:53 Dose: 81 mg Documented by: Dextrose (Dextrose 50% 50 Ml Syringe) 25 - 50 ml IV UD PRN; Protocol PRN Reason: Hypoglycemia Protocol Stop: 03/14/20 19:53 Ferrous Sulfate (Ferrous Sulfate 325 Mg Tab) 325 mg PO BID [facility] Stop: 03/14/20 20:59 Last Admin: 02/14/20 07:53 Dose: 325 mg Documented by: Finasteride (Finasteride 5 Mg Tab) 5 mg PO DAILY MARIYA Stop: 03/15/20 08:59 Last Admin: 02/14/20 07:53 Dose: 5 mg Documented by: Glucagon (Glucagon For Inj 1 Mg Vial) 1 mg SQ UD PRN; Protocol PRN Reason: Hypoglycemia Protocol Stop: 03/14/20 19:53 Glucose (Glucose 10 Tabs/Tube) 4 - 8 tabs PO UD PRN; Protocol PRN Reason: Hypoglycemia Protocol Stop: 03/14/20 19:53 Glucose (Glucose 40% Gel 15 Gm Tube) 15 - 30 gm PO UD PRN; Protocol PRN Reason: Hypoglycemia Protocol Stop: 03/14/20 19:53 Cefepime HCl 2,000 mg/ Syringe 20 mls @ 5.5 mls/min IV Q24H MARIYA; Protocol Stop: 02/19/20 16:04 Furosemide 40 mg/ Syringe 4 mls @ 4 mls/min IV DAILY MARIYA Stop: 03/15/20 08:59 Last Admin: 02/14/20 07:52 Dose: 4 mls/min Documented by: Daptomycin 425 mg/ Syringe 8.5 mls @ 4.25 mls/min IV Q24H MARIYA; Protocol Stop: 02/21/20 16:59 Heparin Sodium (Porcine) 7,500 (units/ Syringe) 0.75 mls @ 0 mls/sec SQ Q8 MARIYA Stop: 03/14/20 21:59 Last Admin: 02/14/20 06:04 Dose: 1 mls/sec Documented by: Insulin Aspart (Insulin Aspart 100 Units/Ml 3 Ml Pen) 0 units SC ACHS MARIYA Stop: 03/14/20 20:59 Last Admin: 02/14/20 12:17 Dose: 12 units Documented by: Insulin Glargine (Insulin Glargine Solostar 100 Units/Ml 3 Ml Pen) 15 units SC BID MARIYA Stop: 03/14/20 20:59 Last Admin: 02/14/20 08:05 Dose: 15 units Documented by: Levetiracetam (Levetiracetam 500 Mg Tab) 500 mg PO BID [facility] Stop: 03/14/20 20:59 Last Admin: 02/14/20 07:53 Dose: 500 mg Documented by: Metoprolol Succinate (Metoprolol Succ 50mg Ext Rel Tab) 200 mg PO DAILY MARIYA Stop: 03/15/20 08:59 Last Admin: 02/14/20 07:53 Dose: 200 mg Documented by: Miscellaneous (Carbohydrates For Hypoglycemia ) 15 - 30 gm PO UD PRN PRN Reason: Hypoglycemia Protocol Stop: 03/14/20 19:53 Miscellaneous Information (Daptomycin Consult Active) 1 ea N/A UD MARIYA Stop: 03/14/20 20:22 Pantoprazole Sodium (Pantoprazole 40 Mg Tab) 40 mg PO BID MARIYA Stop: 03/14/20 20:59 Last Admin: 02/14/20 07:53 Dose: 40 mg Documented by: Potassium Chloride (Potassium Chloride 10 Meq Tabcr) 10 meq PO DAILY MARIYA Stop: 03/15/20 08:59 Last Admin: 02/14/20 07:52 Dose: 10 meq Documented by:
--- NOTE | 2020-02-14 14:18 | Hospitalist Progress Note ---
Date of Service February 14, 2020 Assessment & Plan (1) Generalized weakness: Likely multifactorial related to many comorbid conditions and new hypoxia. Baseline ambulation is with a walker. PT/OT to assess. (2) Acute diastolic CHF (congestive heart failure): Typically on torsemide which he reports he has been taking. Reports 5lb weight gain in last week. BNP elevated>6K. Denies SOB at home. Denies coughing or other respiratory symptoms, no fever. Hypoxia likely 2/2 pulmonary vascular congestion seen on CXR, he received 500 cc of fluid and was back again in ER next day with persistent congestion and worsened hypoxia. He was given 40mg IV in the ER and within a short amount of time had diuresed 1200cc into a new Patiño bag. He does have an elevated creatinine on admission. Asked for cardiology consult to assist with this as he is also a cirrhosis patient who is obese, making fluid assessments difficult. Trop negative. Denies chest pain. (3) Hypoxia: 2/2 CHF. Cont daily Lasix as above, with titrations per Cardiology. (4) Acute kidney injury: Avoid overdiuresis. Monitor BMP daily (5) Leg wound, left: does not appear infected. Wound care consulted for this pannus area, and scrotal area. 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 Broad spectrum abx -Dapto and Cefepime-renally dosed pending blood cultures and clinical improvement. Not septic. (7) Abdominal wall cellulitis: abx as above, cellulitis is a potential reason for his increased weakness. (8) Genital hemangioma: Chronic pain from this issue which also prevents him from receiving full dose anticoagulation in afib. He is receiving dialy aspirin and also DVT prophylaxis with heparin. Monitor for bleeding. Consulted wound care provider. (9) Seizures: h/o epilepsy. No recent seizures. Cont Keppra per home regimen. (10) Cirrhosis: No ascites on imaging. Nontender protuberant abdomen. Mentating clearly. Appears compensated. (11) Chronic pain: uses hydrocodone at home but was having severe pain, improved with dilaudid in the ER. (12) Atrial fibrillation: chronic, rate around 90bpm on admission. Cont metoprolol succinate. Cont ASA. (13) BPH w urinary obs/LUTS: Cont finasteride per home regimen. Chronic patiño in place. (14) Obstructive sleep apnea: Cannot tolerate CPAP. (15) Diabetes mellitus with diabetic polyneuropathy: Hold Januvia, metformin per home regimen. Basal bolus insulin while hospitalized. Current A1C 6.4%. (16) Obesity: Lifestyle modifications recommended. (17) DVT prophylaxis: Heparin Full Code as verified with patient on admission Dispo-to telemetry Admission and Anticipated Discharge Date Admission Date: February 13, 2020 Subjective Patient is lying in bed, and says that he feels well. Patient seems to have very poor insight. Per nursing staff, patient's called and said that she is no longer able to take care of him. Patient himself feels that he could use home health. Case management at the bedside, reassured patient that we will arrange that after our PT OT evaluations are done first. Patient to be seen by cardiology and wound care as well. Currently denies any fevers, chills, chest pain, shortness of breath, abdominal pain, nausea or vomiting. Review of Systems Review of Systems: All systems reviewed & are unremarkable except as noted in HPI & below Constitutional: no fever and no chills Respiratory: no cough and no dyspnea Cardiovascular: no chest pain and no palpitations Gastrointestinal: no abdominal pain, no nausea and no vomiting Physical Exam Physical Exam: CONSTITUTIONAL: obese, vitals as above, laying in bed, in no acute distress EYES: pupils are round and equal bilaterally, normal conjunctivae, no scleral icterus ENT: external ear and nose normal, oropharynx clear NECK: trachea midline RESPIRATORY: clear to auscultation bilaterally, no crackles, rales or wheezes, normal respiratory effort, on nasal cannula CARDIOVASCULAR: normal rate, irreg rhythm, S1 and 2 heard without murmurs, gallops or rubs, no peripheral edema CHEST: inspection of chest normal GASTROINTESTINAL: normal bowel sounds, soft, nontender, nondistended no gu arding, protuberant abdomen, significant erythema and irritation within skin folds and under pannus into groin area. : large erythematous scrotal mass,buried penis not visualized MUSCULOSKELETAL: strength 5/5 throughout, head is normocephalic and atraumatic SKIN: warm and dry, erythema on scrotum and abdomen as above. 5-10 cm abrasive wound that is nondraining on left lower leg. No surrounding redness suggestive of cellulitis in this area. +erythroderma on bilateral lower legs. NEUROLOGIC: No facial palsy, no dysarthria. CN 2-12 grossly intact, no sensory deficit, normal cognition, normal speech, no tremor. No gross neuro deficits. Gait or ability to stand was not tested 2/2 potential fall risk PSYCHIATRIC: alert cooperative and oriented Results & Data Results & Data ([facility]) Vital Signs (Past 12 Hours) Vital Signs Temp Pulse Pulse Resp BP Pulse Ox 02/14/20 11:31 36.4 C L 70 16 102/66 96 02/14/20 07:30 36.3 C L 81 16 107/72 96 02/14/20 03:43 36.4 C L 77 16 106/59 L 96 Laboratory Results 02/14/20 02/14/20 02/14/20 Range/Units 11:59 07:11 06:22 WBC (4.8-10.8) K/uL RBC (4.7-6.1) M/uL Hgb (14.0-18.0) g/dL Hct (42-52) % MCV (80-100) fL MCH (25-34) pg MCHC (32-36) g/dL RDW Std Deviation (36.4-46.3) fL RDW Coeff of Shadi (11.5-14.5) % Plt Count (130-400) K/uL MPV (7.4-10.4) fL Immature Gran % (Auto) % Neut % (Auto) % Lymph % (Auto) % [place] % (Auto) % Eos % (Auto) % Baso % (Auto) % Neut # (Auto) (1.4-6.5) K/uL Lymph # (Auto) (1.2-3.4) K/uL [place] # (Auto) (0.11-0.59) K/uL Eos # (Auto) (0-0.5) K/uL Baso # (Auto) (0-0.2) K/uL Immature Gran # (Auto) (0.00-0.02) K/uL PT (9.0-12.0) Seconds INR (0.9-1.1) APTT (21.0-31.0) Seconds PTT Ratio Sodium (136-145) mmol/L Potassium (3.5-5.1) mmol/L Chloride (98-107) mmol/L Carbon Dioxide (21-32) mmol/L Anion Gap (3-11) BUN (7-18) mg/dl Creatinine (0.6-1.4) mg/dl Est Cr Clr Drug Dosing ml/min Est GFR ( Amer) Est GFR (Non-Af Amer) BUN/Creatinine Ratio (10-20) Glucose (70-99) mg/dl POC Glucose 125 H 116 H (70-99) mg/dl Estimat Average Glucose 137 mg/dl Hemoglobin A1c 6.4 H (4.5-5.6) % Lactate (0.4-2.0) mmol/L Calcium (8.5-10.1) mg/dl Magnesium (1.8-2.4) mg/dl Total Bilirubin (0.2-1) mg/dl AST (15-37) U/L ALT (12-78) U/L Alkaline Phosphatase (45-117) U/L Troponin I (0-0.045) ng/ml NT-Pro-B Natriuret Pep (0-1800) pg/ml Total Protein (6.4-8.2) gm/dl Albumin (3.4-5.0) gm/dl Globulin (2.5-4.0) gm/dl Albumin/Globulin Ratio (0.9-2) Urine Color Urine Appearance (Clear) Urine pH (4.5-7.5) Ur Specific [place] (1.000-1.030) Urine Protein (Negative) Urine Glucose (UA) (Negative) Urine Ketones (Negative) Urine Blood (Negative) Urine Nitrite (Negative) Urine Bilirubin (Negative) Urine Urobilinogen (Negative) Ur Leukocyte Esterase (Negative) Urine WBC (Auto) (0-5) /hpf Urine RBC (Auto) (0-4) /hpf U Hyaline Cast (Auto) (0-5) /lpf U Epithel Cells (Auto) (0-5) /lpf Urine Bacteria (Auto) (Negative) 02/14/20 02/14/20 02/13/20 Range/Units 06:22 06:22 22:09 WBC 7.89 (4.8-10.8) K/uL RBC 4.83 (4.7-6.1) M/uL Hgb 14.1 (14.0-18.0) g/dL Hct 45.1 (42-52) % MCV 93.4 (80-100) fL MCH 29.2 (25-34) pg MCHC 31.3 L (32-36) g/dL RDW Std Deviation 54.6 H (36.4-46.3) fL RDW Coeff of Shadi 16.0 H (11.5-14.5) % Plt Count 223 (130-400) K/uL MPV 10.4 (7.4-10.4) fL Immature Gran % (Auto) % Neut % (Auto) % Lymph % (Auto) % [place] % (Auto) % Eos % (Auto) % Baso % (Auto) % Neut # (Auto) (1.4-6.5) K/uL Lymph # (Auto) (1.2-3.4) K/uL [place] # (Auto) (0.11-0.59) K/uL Eos # (Auto) (0-0.5) K/uL Baso # (Auto) (0-0.2) K/uL Immature Gran # (Auto) (0.00-0.02) K/uL PT (9.0-12.0) Seconds INR (0.9-1.1) APTT (21.0-31.0) Seconds PTT Ratio Sodium 142 (136-145) mmol/L Potassium 4.3 (3.5-5.1) mmol/L Chloride 108 H (98-107) mmol/L Carbon Dioxide 28 (21-32) mmol/L Anion Gap 6.0 (3-11) BUN 28 H (7-18) mg/dl Creatinine 1.52 H (0.6-1.4) mg/dl Est Cr Clr Drug Dosing 59.6 ml/min Est GFR ( Amer) 49.8 Est GFR (Non-Af Amer) 43.0 BUN/Creatinine Ratio 18.3 (10-20) Glucose 102 H (70-99) mg/dl POC Glucose (70-99) mg/dl Estimat Average Glucose mg/dl Hemoglobin A1c (4.5-5.6) % Lactate 1.7 (0.4-2.0) mmol/L Calcium 8.1 L (8.5-10.1) mg/dl Magnesium (1.8-2.4) mg/dl Total Bilirubin (0.2-1) mg/dl AST (15-37) U/L ALT (12-78) U/L Alkaline Phosphatase (45-117) U/L Troponin I (0-0.045) ng/ml NT-Pro-B Natriuret Pep (0-1800) pg/ml Total Protein (6.4-8.2) gm/dl Albumin (3.4-5.0) gm/dl Globulin (2.5-4.0) gm/dl Albumin/Globulin Ratio (0.9-2) Urine Color Urine Appearance (Clear) Urine pH (4.5-7.5) Ur Specific [place] (1.000-1.030) Urine Protein (Negative) Urine Glucose (UA) (Negative) Urine Ketones (Negative) Urine Blood (Negative) Urine Nitrite (Negative) Urine Bilirubin (Negative) Urine Urobilinogen (Negative) Ur Leukocyte Esterase (Negative) Urine WBC (Auto) (0-5) /hpf Urine RBC (Auto) (0-4) /hpf U Hyaline Cast (Auto) (0-5) /lpf U Epithel Cells (Auto) (0-5) /lpf Urine Bacteria (Auto) (Negative) 02/13/20 02/13/20 02/13/20 Range/Units 20:06 17:49 17:38 WBC (4.8-10.8) K/uL RBC (4.7-6.1) M/uL Hgb (14.0-18.0) g/dL Hct (42-52) % MCV (80-100) fL MCH (25-34) pg MCHC (32-36) g/dL RDW Std Deviation (36.4-46.3) fL RDW Coeff of Shadi (11.5-14.5) % Plt Count (130-400) K/uL MPV (7.4-10.4) fL Immature Gran % (Auto) % Neut % (Auto) % Lymph % (Auto) % [place] % (Auto) % Eos % (Auto) % Baso % (Auto) % Neut # (Auto) (1.4-6.5) K/uL Lymph # (Auto) (1.2-3.4) K/uL [place] # (Auto) (0.11-0.59) K/uL Eos # (Auto) (0-0.5) K/uL Baso # (Auto) (0-0.2) K/uL Immature Gran # (Auto) (0.00-0.02) K/uL PT (9.0-12.0) Seconds INR (0.9-1.1) APTT (21.0-31.0) Seconds PTT Ratio Sodium (136-145) mmol/L Potassium (3.5-5.1) mmol/L Chloride (98-107) mmol/L Carbon Dioxide (21-32) mmol/L Anion Gap (3-11) BUN (7-18) mg/dl Creatinine (0.6-1.4) mg/dl Est Cr Clr Drug Dosing ml/min Est GFR ( Amer) Est GFR (Non-Af Amer) BUN/Creatinine Ratio (10-20) Glucose (70-99) mg/dl POC Glucose 110 H (70-99) mg/dl Estimat Average Glucose mg/dl Hemoglobin A1c (4.5-5.6) % Lactate 2.1 H* (0.4-2.0) mmol/L Calcium (8.5-10.1) mg/dl Magnesium (1.8-2.4) mg/dl Total Bilirubin (0.2-1) mg/dl AST (15-37) U/L ALT (12-78) U/L Alkaline Phosphatase (45-117) U/L Troponin I (0-0.045) ng/ml NT-Pro-B Natriuret Pep (0-1800) pg/ml Total Protein (6.4-8.2) gm/dl Albumin (3.4-5.0) gm/dl Globulin (2.5-4.0) gm/dl Albumin/Globulin Ratio (0.9-2) Urine Color Yellow Urine Appearance Clear (Clear) Urine pH 7.5 (4.5-7.5) Ur Specific [place] 1.008 (1.000-1.030) Urine Protein Negative (Negative) Urine Glucose (UA) Negative (Negative) Urine Ketones Negative (Negative) Urine Blood Trace H (Negative) Urine Nitrite Positive A (Negative) Urine Bilirubin Negative (Negative) Urine Urobilinogen Negative (Negative) Ur Leukocyte Esterase 3+ H (Negative) Urine WBC (Auto) >30 H (0-5) /hpf Urine RBC (Auto) 0-4 (0-4) /hpf U Hyaline Cast (Auto) 1-5 (0-5) /lpf U Epithel Cells (Auto) 0-5 (0-5) /lpf Urine Bacteria (Auto) Negative (Negative) 02/13/20 02/13/20 02/13/20 Range/Units 15:30 15:30 15:30 WBC (4.8-10.8) K/uL RBC (4.7-6.1) M/uL Hgb (14.0-18.0) g/dL Hct (42-52) % MCV (80-100) fL MCH (25-34) pg MCHC (32-36) g/dL RDW Std Deviation (36.4-46.3) fL RDW Coeff of Shadi (11.5-14.5) % Plt Count (130-400) K/uL MPV (7.4-10.4) fL Immature Gran % (Auto) % Neut % (Auto) % Lymph % (Auto) % [place] % (Auto) % Eos % (Auto) % Baso % (Auto) % Neut # (Auto) (1.4-6.5) K/uL Lymph # (Auto) (1.2-3.4) K/uL [place] # (Auto) (0.11-0.59) K/uL Eos # (Auto) (0-0.5) K/uL Baso # (Auto) (0-0.2) K/uL Immature Gran # (Auto) (0.00-0.02) K/uL PT 12.0 (9.0-12.0) Seconds INR 1.1 (0.9-1.1) APTT 30.1 (21.0-31.0) Seconds PTT Ratio 1.1 Sodium 140 (136-145) mmol/L Potassium 4.4 (3.5-5.1) mmol/L Chloride 106 (98-107) mmol/L Carbon Dioxide 27 (21-32) mmol/L Anion Gap 7.0 (3-11) BUN 28 H (7-18) mg/dl Creatinine 1.62 H (0.6-1.4) mg/dl Est Cr Clr Drug Dosing 56.1 ml/min Est GFR ( Amer) 46.1 Est GFR (Non-Af Amer) 39.8 BUN/Creatinine Ratio 17.4 (10-20) Glucose 107 H (70-99) mg/dl POC Glucose (70-99) mg/dl Estimat Average Glucose mg/dl Hemoglobin A1c (4.5-5.6) % Lactate 3.0 H* (0.4-2.0) mmol/L Calcium 8.3 L (8.5-10.1) mg/dl Magnesium 2.6 H (1.8-2.4) mg/dl Total Bilirubin 0.6 (0.2-1) mg/dl AST 16 (15-37) U/L ALT 13 (12-78) U/L Alkaline Phosphatase 81 (45-117) U/L Troponin I < 0.015 (0-0.045) ng/ml NT-Pro-B Natriuret Pep 6758 H (0-1800) pg/ml Total Protein 8.5 H (6.4-8.2) gm/dl Albumin 3.0 L (3.4-5.0) gm/dl Globulin 5.5 H (2.5-4.0) gm/dl Albumin/Globulin Ratio 0.5 L (0.9-2) Urine Color Urine Appearance (Clear) Urine pH (4.5-7.5) Ur Specific [place] (1.000-1.030) Urine Protein (Negative) Urine Glucose (UA) (Negative) Urine Ketones (Negative) Urine Blood (Negative) Urine Nitrite (Negative) Urine Bilirubin (Negative) Urine Urobilinogen (Negative) Ur Leukocyte Esterase (Negative) Urine WBC (Auto) (0-5) /hpf Urine RBC (Auto) (0-4) /hpf U Hyaline Cast (Auto) (0-5) /lpf U Epithel Cells (Auto) (0-5) /lpf Urine Bacteria (Auto) (Negative) 02/13/20 Range/Units 15:30 WBC 10.52 (4.8-10.8) K/uL RBC 5.06 (4.7-6.1) M/uL Hgb 14.5 (14.0-18.0) g/dL Hct 46.7 (42-52) % MCV 92.3 (80-100) fL MCH 28.7 (25-34) pg MCHC 31.0 L (32-36) g/dL RDW Std Deviation 54.7 H (36.4-46.3) fL RDW Coeff of Shadi 16.1 H (11.5-14.5) % Plt Count 271 (130-400) K/uL MPV 10.0 (7.4-10.4) fL Immature Gran % (Auto) 0.1 % Neut % (Auto) 82.9 % Lymph % (Auto) 7.8 % [place] % (Auto) 5.9 % Eos % (Auto) 3.0 % Baso % (Auto) 0.3 % Neut # (Auto) 8.72 H (1.4-6.5) K/uL Lymph # (Auto) 0.82 L (1.2-3.4) K/uL [place] # (Auto) 0.62 H (0.11-0.59) K/uL Eos # (Auto) 0.32 (0-0.5) K/uL Baso # (Auto) 0.03 (0-0.2) K/uL Immature Gran # (Auto) 0.01 (0.00-0.02) K/uL PT (9.0-12.0) Seconds INR (0.9-1.1) APTT (21.0-31.0) Seconds PTT Ratio Sodium (136-145) mmol/L Potassium (3.5-5.1) mmol/L Chloride (98-107) mmol/L Carbon Dioxide (21-32) mmol/L Anion Gap (3-11) BUN (7-18) mg/dl Creatinine (0.6-1.4) mg/dl Est Cr Clr Drug Dosing ml/min Est GFR ( Amer) Est GFR (Non-Af Amer) BUN/Creatinine Ratio (10-20) Glucose (70-99) mg/dl POC Glucose (70-99) mg/dl Estimat Average Glucose mg/dl Hemoglobin A1c (4.5-5.6) % Lactate (0.4-2.0) mmol/L Calcium (8.5-10.1) mg/dl Magnesium (1.8-2.4) mg/dl Total Bilirubin (0.2-1) mg/dl AST (15-37) U/L ALT (12-78) U/L Alkaline Phosphatase (45-117) U/L Troponin I (0-0.045) ng/ml NT-Pro-B Natriuret Pep (0-1800) pg/ml Total Protein (6.4-8.2) gm/dl Albumin (3.4-5.0) gm/dl Globulin (2.5-4.0) gm/dl Albumin/Globulin Ratio (0.9-2) Urine Color Urine Appearance (Clear) Urine pH (4.5-7.5) Ur Specific [place] (1.000-1.030) Urine Protein (Negative) Urine Glucose (UA) (Negative) Urine Ketones (Negative) Urine Blood (Negative) Urine Nitrite (Negative) Urine Bilirubin (Negative) Urine Urobilinogen (Negative) Ur Leukocyte Esterase (Negative) Urine WBC (Auto) (0-5) /hpf Urine RBC (Auto) (0-4) /hpf U Hyaline Cast (Auto) (0-5) /lpf U Epithel Cells (Auto) (0-5) /lpf Urine Bacteria (Auto) (Negative)
[2020-02-14 14:54] LABS: BUN Creatinine Ratio 16.2 (10-20); Calcium 8.6 mg/dl (8.5-10.1); Creatinine Clr Calc Pharmacy 51.7 ml/min; Est GFR (Non-African American) 36.2; Magnesium 2.7 mg/dl (1.8-2.4); Potassium 4.2 mmol/L (3.5-5.1)
--- NOTE | 2020-02-14 14:56 | Wound Consultation ---
Date of Consultation February 14, 2020 Assessment & Plan (1) Leg wound, left: Patient with a traumatic wound on his left leg in the setting of chronic venous insufficiency. No debridement was required. Wound be dressed with Aquacel Ag. Could consider adding compression when his heart failure has improved. 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 No debridement was required. Wounds be dressed with Xeroform and ABDs change as needed. Thank you Participate in the care of this patient. Please call with any questions. History of Present Illness Reason for Consultation: scrotal wounds traumatic wound left leg Attending Physician: Tobi Chaidez MD History of Present Illness This is a 78-year-old male with a history of scrotal ulcer status post embolization, A. fib, chronic CHF, hypertension, seizure disorder and type 2 diabetes admitted with generalized weakness and heart failure. Patient has followed with the wound clinic in the past however has not been seen in over 8 months. Patient is unsure why he stopped coming in. He thinks that part of it was related to the coronavirus. Patient states the wound of his leg happened while being transferred into the ambulance. He denies fevers or chills. Allergies Allergy/AdvReac Type Severity Reaction Status Date / Time metronidazole Allergy Severe Unknown Verified 02/13/20 16:05 amoxicillin Allergy Intermediate Rash Verified 02/13/20 16:05 Home Medications Home Medications Medication Instructions Recorded Confirmed Type ferrous sulfate 325 mg PO BID 06/16/18 02/13/20 History finasteride 5 mg PO DAILY 06/16/18 02/13/20 History metformin 500 mg PO QAM 06/16/18 02/13/20 History metoprolol succinate 200 mg PO DAILY 06/16/18 02/13/20 History pantoprazole 40 mg PO BID 06/16/18 02/13/20 History levetiracetam 500 mg PO BID 03/16/19 02/13/20 History Januvia 50 mg PO DAILY 06/17/19 02/13/20 History hydrocodone-acetaminophen 1 tab PO Q8H PRN 06/17/19 02/13/20 History potassium chloride 10 meq PO DAILY 06/17/19 02/13/20 History aspirin [Aspirin Low Dose] 81 mg PO DAILY 11/10/19 02/13/20 History torsemide See Rx Instructions .ROUTE .COMPLEX 11/10/19 02/13/20 History cephalexin [Keflex] 500 mg PO Q6H 10 Days #40 cap 02/12/20 02/13/20 Rx sulfamethoxazole-trimethoprim 1 tab PO Q12H #14 tab NS 02/12/20 02/13/20 Rx [Bactrim DS] Patient History Medical History 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 Acute urinary retention Atrial fibrillation with RVR Barretts esophagus Benign hypertension BPH without urinary obstruction Callus Chronic a-fib Chronic diastolic CHF (congestive heart failure) Chronic indwelling Baires catheter Chronic venous insufficiency Complicated UTI (urinary tract infection) 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, with fat layer exposed Diverticulosis of colon (without mention of hemorrhage) DM (diabetes mellitus), type 2, uncontrolled w/ophthalmic complication Esophageal candidiasis Exertional dyspnea Gastric ulcer with hemorrhage but without obstruction H/O Clostridium difficile infection Hemangioma of skin History of chronic atrial fibrillation Hypertension Hypoxia ICH (intracerebral hemorrhage) Morbid obesity Open wound of scrotum JUAN MANUEL (obstructive sleep apnea) Peripheral arterial disease Rhabdomyolysis Scrotal varicose veins Skin ulcer of left foot including toes Symptomatic anemia Urinary retention Surgical History History of total replacement of right hip S/P cholecystectomy S/P tonsillectomy and adenoidectomy Family History Other No significant family history Social History Smoking Status: Never smoker Second Hand Exposure: No; Hx Alcohol Use: No Hx Substance Use: No Preferred Language: Lao 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 Ability: Effective Crude Oil Treater Required: No Beliefs That Will Affect Care: None marital status: Current Living Situation: Spouse Current Living Situation Comment: Home with spouse Other Information That Helps Us Care for You: No Feels Safe at Home: Yes Safety Concerns: Feels Safe At This Time Review of Systems Review of Systems: All systems reviewed & are unremarkable except as noted in HPI & below Physical Exam Physical Exam: vitals reviewed Constitutional: well developed, well nourished and + ill appearing Eyes: PERRL, conjunctivae normal, anicteric sclerae ENMT: external ear and nose normal, oropharynx normal Ears: no hearing impairment Skin: Measuring as recorded in nursing documentation. Left anterior leg wound is covered with fibrin and slough. Periwound is intact without erythema. There is moderate drainage and no foul odors. Scrotal wound draining a large amount of serous fluid. Neurologic: awake; not confused Psychiatric: A+Ox3, euthymic affect Results & Data ([facility]) Vital Signs (Past 12 Hours) Vital Signs Temp Pulse Pulse Resp BP Pulse Ox 02/14/20 14:23 82 20 93/52 L 02/14/20 11:31 36.4 C L 70 16 102/66 96 02/14/20 07:30 36.3 C L 81 16 107/72 96 02/14/20 03:43 36.4 C L 77 16 106/59 L 96 PG Care Time/CCT Total # of Minutes Spent Total Time Spent with Patient: Total time spent is greater than 50% in coordination of care (as documented) at patient's floor/unit and/or counseling patient: Coding Level of Care Code 02708 Inpt Consult Level 2 Diagnoses Leg wound, left S81.802A Scrotal varicose veins I86.1
[2020-02-14] MEDS: DAPTOmycin 425 MG in SYRINGE 0 ML IV SCH (16:02)
[2020-02-14] MEDS: CEFEPIME 2,000 MG in SYRINGE 7.5 ML IV SCH (16:02)
[2020-02-14] MEDS ORDERED: TRAMADOL HCL 50 MG TABLET PO ONE (18:45)
[2020-02-14] MEDS: MELATONIN 3 MG TAB PO SCH (23:31)
[2020-02-15] MEDS: HEPARIN SODIUM (PORCINE) 7,500 UNITS in SYRINGE 0 ML SQ SCH ×3 (06:34→20:35)
[2020-02-15 08:25] LABS: Hematocrit (blood only) 44.9 % (42-52); Hemoglobin 13.5 g/dL (14.0-18.0); Mean Corpuscular Hemoglobin 28.4 pg (25-34); Mean Corpuscular Hgb Conc 30.1 g/dL (32-36); Mean Corpuscular Volume 94.3 fL (80-100); Platelet Count 239 K/uL (130-400); RDW Standard Deviation 54.9 fL (36.4-46.3); Red Blood Count 4.76 M/uL (4.7-6.1); White Blood Count 7.83 K/uL (4.8-10.8)
[2020-02-15] MEDS: HYDROCODONE/ACETAMOPHEN 5/325MG TAB PO PRN ×2 (08:26→17:30)
[2020-02-15] MEDS: ASPIRIN 81 MG ECTAB PO SCH (08:27)
[2020-02-15] MEDS: METOPROLOL SUCC 50MG EXT REL TAB PO SCH (08:27)
[2020-02-15] MEDS: POTASSIUM CHLORIDE 10 MEQ TABCR PO SCH (08:27)
[2020-02-15] MEDS: FUROSEMIDE 40 MG in SYRINGE 0 ML IV SCH (08:27)
[2020-02-15] MEDS: PANTOprazole 40 MG TAB PO SCH ×2 (08:27→20:36)
[2020-02-15] MEDS: FINASTERIDE 5 MG TAB PO SCH (08:27)
[2020-02-15] MEDS: levETIRAcetam 500 MG TAB PO SCH ×2 (08:27→20:36)
[2020-02-15] MEDS: INSULIN GLARGINE SOLOSTAR 100 UNITS/ML 3 ML PEN SC SCH ×2 (08:28→20:33)
[2020-02-15] MEDS: FERROUS SULFATE 325 MG TAB PO SCH ×2 (08:28→20:36)
[2020-02-15] MEDS: INSULIN ASPART 100 UNITS/ML 3 ML PEN SC SCH ×4 (08:30→20:33)
[2020-02-15 08:59] LABS: BUN Creatinine Ratio 18.4 (10-20); Calcium 8.6 mg/dl (8.5-10.1); Creatinine Clr Calc Pharmacy 57.4 ml/min; Est GFR (African American) 47.5; Magnesium 2.8 mg/dl (1.8-2.4); Phosphorus 3.3 mg/dl (2.5-4.9); Potassium 4.1 mmol/L (3.5-5.1)
--- NOTE | 2020-02-15 11:50 | Cardiology Progress Note ---
Date of Service February 15, 2020 Assessment & Plan (1) Generalized weakness: (2) Acute diastolic heart failure: (3) Atrial fibrillation with rapid ventricular response: Patient admitted with generalized weakness, progressive x 2 weeks according to 's report on admission. He denies these issues. Urinary and blood cultures pending. He has a long history of urinary sepsis likely contributing to his symptoms. His heart rates have trended down since admission. Continue home dose met oprolol. 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 Mild diastolic heart failure right greater than left present responding to diuretics Admission and Anticipated Discharge Date Admission Date: February 13, 2020 Subjective Patient seen and examined, chart, medications, telemetry reviewed Patient denies any acute complaints though rather poor personal insight Weight down approximately 2 kg from admission Physical Exam Constitutional: WD/WN, vitals as above + morbidly obese Eyes: PERRL, conjunctivae normal, anicteric sclerae ENMT: external ear and nose normal, oropharynx normal Neck: trachea midline, no thyromegaly + thick neck Respiratory: Auscultation: + diminished lung sounds Cardiovascular: Rate/Rhythm: + irregularly irregular Heart Sounds: normal S1, normal S2 and + murmur (Grade 2/6 systolic); no gallop Vessels: normal carotid upstroke and radial pulses present; no JVD and no carotid bruit Extremities: + edema (Chronic 2+ with stasis changes mildly improved) Gastrointestinal (Abdomen): normal bowel sounds, soft, nontender, no hepatosplenomegaly Large panniculus Musculoskeletal: no cyanosis or clubbing, extremities motor strength 5/5 Skin: no rashes, warm and dry Neurologic: PERRL, EOMI, accommodation nl, no face palsy, no dysarthria Psychiatric: A+Ox3, euthymic affect Results & Data ([facility]) Vital Signs (Past 12 Hours) Vital Signs Temp Pulse Resp BP Pulse Ox 02/15/20 07:21 36.7 C 83 20 129/85 96 02/15/20 03:54 36.5 C 87 19 126/77 91 Laboratory Results Laboratory Results - last 24 hr 02/14/20 02/14/20 02/14/20 11:59 14:24 15:18 WBC RBC Hgb Hct MCV MCH MCHC RDW Std Deviation RDW Coeff of Shadi Plt Count MPV Sodium 141 Potassium 4.2 Chloride 107 Carbon Dioxide 30 Anion Gap 4.0 BUN 28 H Creatinine 1.75 H Est Cr Clr Drug Dosing 51.7 Est GFR ( Amer) 42.0 Est GFR (Non-Af Amer) 36.2 BUN/Creatinine Ratio 16.2 Glucose 58 L POC Glucose 125 H 65 L* Calcium 8.6 Phosphorus Magnesium 2.7 H 02/14/20 02/14/20 02/15/20 16:48 20:49 07:34 WBC RBC Hgb Hct MCV MCH MCHC RDW Std Deviation RDW Coeff of Shadi Plt Count MPV Sodium Potassium Chloride Carbon Dioxide Anion Gap BUN Creatinine Est Cr Clr Drug Dosing Est GFR ( Amer) Est GFR (Non-Af Amer) BUN/Creatinine Ratio Glucose POC Glucose 81 99 99 Calcium Phosphorus Magnesium 02/15/20 02/15/20 02/15/20 07:38 07:38 11:31 WBC 7.83 RBC 4.76 Hgb 13.5 L Hct 44.9 MCV 94.3 MCH 28.4 MCHC 30.1 L RDW Std Deviation 54.9 H RDW Coeff of Shadi 16.0 H Plt Count 239 MPV 10.0 Sodium 139 Potassium 4.1 Chloride 104 Carbon Dioxide 31 Anion Gap 4.0 BUN 29 H Creatinine 1.58 H Est Cr Clr Drug Dosing 57.4 Est GFR ( Amer) 47.5 Est GFR (Non-Af Amer) 41.0 BUN/Creatinine Ratio 18.4 Glucose 91 POC Glucose 107 H Calcium 8.6 Phosphorus 3.3 Magnesium 2.8 H
[2020-02-15] MEDS ORDERED: CEFEPIME CONSULT ACTIVE PRN (14:51)
[2020-02-15] MEDS: CEFEPIME 2,000 MG in SYRINGE 7.5 ML IV SCH (15:29)
[2020-02-15] MEDS: DAPTOmycin 425 MG in SYRINGE 0 ML IV SCH (17:22)
--- NOTE | 2020-02-15 18:42 | Hospitalist Progress Note ---
Date of Service February 15, 2020 Assessment & Plan (1) Generalized weakness: Likely multifactorial related to many comorbid conditions and new hypoxia. Baseline ambulation is with a walker. PT/OT to assess. (2) Acute diastolic CHF (congestive heart failure): Typically on torsemide which he reports he has been taking. Reports 5lb weight gain in last week. BNP elevated>6K. Denies SOB at home. Denies coughing or other respiratory symptoms, no fever. Hypoxia likely 2/2 pulmonary vascular congestion seen on CXR, he received 500 cc of fluid and was back again in ER next day with persistent congestion and worsened hypoxia. He was given 40mg IV in the ER and within a short amount of time had diuresed 1200cc into a new Patiño bag. He does have an elevated creatinine on admission. Asked for cardiology consult to assist with this as he is also a cirrhosis patient who is obese, making fluid assessments difficult. Trop negative. Denies chest pain. (3) Hypoxia: Acute hypoxic respiratory failure Patient still requiring supplemental oxygen 2/2 CHF and infectious ideology. Cont daily Lasix as above, with titrations per Cardiology. (4) Acute kidney injury: Avoid overdiuresis. Monitor BMP daily UTI associated with chronic Patiño catheter -Urine culture growing Pseudomonas aeruginosa, continue cefepime which was s tarted on admission -Blood cultures pending (5) Leg wound, left: does not appear infected. Wound care consulted for this pannus area, and scrotal area. 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 Broad spectrum abx -Dapto and Cefepime-renally dosed pending blood cultures and clinical improvement. Not septic. (7) Abdominal wall cellulitis: abx as above, cellulitis is a potential reason for his increased weakness. (8) Genital hemangioma: Chronic pain from this issue which also prevents him from receiving full dose anticoagulation in afib. He is receiving dialy aspirin and also DVT prophylaxis with heparin. Monitor for bleeding. Consulted wound care provider. (9) Seizures: h/o epilepsy. No recent seizures. Cont Keppra per home regimen. (10) Cirrhosis: No ascites on imaging. Nontender protuberant abdomen. Mentating clearly. Appears compensated. (11) Chronic pain: uses hydrocodone at home but was having severe pain, improved with dilaudid in the ER. (12) Atrial fibrillation: chronic, rate around 90bpm on admission. Cont metoprolol succinate. Cont ASA. (13) BPH w urinary obs/LUTS: Cont finasteride per home regimen. Chronic patiño in place. (14) Obstructive sleep apnea: Cannot tolerate CPAP. (15) Diabetes mellitus with diabetic polyneuropathy: Hold Januvia, metformin per home regimen. Basal bolus insulin while hospitalized. Current A1C 6.4%. (16) Obesity: Lifestyle modifications recommended. (17) DVT prophylaxis: Heparin Full Code as verified with patient on admission Dispo-to telemetry Admission and Anticipated Discharge Date Admission Date: February 13, 2020 Subjective Blood cultures since admission negative, however urine culture positive for pseudomonas aeruginosa. Patient has a chronic Patiño catheter. Patient is lying in bed, and says that he feels well overall. He wants to sit at the edge of the bed, does not seem to be realizing his weakness. Patient seems to have very poor insight. Per nursing staff, patient's called earlier and said that she is no longer able to take care of him. Patient himself feels that he could use home health. Case management was present at the bedside, reassured patient that we will arrange that after our PT OT evaluations are done first. Currently denies any fevers, chills, chest pain, shortness of breath, abdominal pain, nausea or vomiting. Review of Systems Review of Systems: All systems reviewed & are unremarkable except as noted in HPI & below Constitutional: no fever and no chills Respiratory: no cough and no dyspnea Cardiovascular: no chest pain and no palpitations Gastrointestinal: no abdominal pain, no nausea and no vomiting Physical Exam Physical Exam: CONSTITUTIONAL: obese, vitals as above, laying in bed, in no acute distress EYES: pupils are round and equal bilaterally, normal conjunctivae, no scleral icterus ENT: external ear and nose normal, oropharynx clear NECK: trachea midline RESPIRATORY: clear to auscultation bilaterally, but breath sounds are somewhat diminished, no crackles, rales or wheezes, normal respiratory effort, on nasal cannula CARDIOVASCULAR: normal rate, irreg rhythm, S1 and 2 heard without murmurs, gallops or rubs, no peripheral edema CHEST: inspection of chest normal GASTROINTESTINAL: normal bowel sounds, soft, nontender, nondistended no guarding, protuberant abdomen : large erythematous scrotal mass,buried penis not visualized MUSCULOSKELETAL: strength 5/5 throughout, head is normocephalic and atraumatic SKIN: warm and dry, erythema on scrotum and abdomen as above. 5-10 cm abrasive wound that is nondraining on left lower leg. No surrounding redness suggestive of cellulitis in this area. +erythroderma on bilateral lower legs. significant erythema and irritation within skin folds and under pannus into groin area. Significant erythema on patient's back/buttocks, see image by wound care in EMR NEUROLOGIC: No facial palsy, no dysarthria. CN 2-12 grossly intact, no sensory deficit, normal cognition, normal speech, no tremor. No gross neuro deficits. Gait or ability to stand was not tested 2/2 potential fall risk PSYCHIATRIC: alert cooperative and oriented Results & Data Results & Data ([facility]) Vital Signs (Past 12 Hours) Vital Signs Temp Pulse Pulse Resp BP Pulse Ox 02/15/20 17:15 36.5 C 82 20 117/74 96 02/15/20 11:30 36.4 C L 81 18 111/76 95 02/15/20 07:21 36.7 C 83 20 129/85 96 Laboratory Results 02/15/20 02/15/20 02/15/20 Range/Units 16:56 11:31 07:38 WBC (4.8-10.8) K/uL RBC (4.7-6.1) M/uL Hgb (14.0-18.0) g/dL Hct (42-52) % MCV (80-100) fL MCH (25-34) pg MCHC (32-36) g/dL RDW Std Deviation (36.4-46.3) fL RDW Coeff of Shadi (11.5-14.5) % Plt Count (130-400) K/uL MPV (7.4-10.4) fL Sodium 139 (136-145) mmol/L Potassium 4.1 (3.5-5.1) mmol/L Chloride 104 (98-107) mmol/L Carbon Dioxide 31 (21-32) mmol/L Anion Gap 4.0 (3-11) BUN 29 H (7-18) mg/dl Creatinine 1.58 H (0.6-1.4) mg/dl Est Cr Clr Drug Dosing 57.4 ml/min Est GFR ( Amer) 47.5 Est GFR (Non-Af Amer) 41.0 BUN/Creatinine Ratio 18.4 (10-20) Glucose 91 (70-99) mg/dl POC Glucose 100 H 107 H (70-99) mg/dl Calcium 8.6 (8.5-10.1) mg/dl Phosphorus 3.3 (2.5-4.9) mg/dl Magnesium 2.8 H (1.8-2.4) mg/dl 02/15/20 02/15/20 02/14/20 Range/Units 07:38 07:34 20:49 WBC 7.83 (4.8-10.8) K/uL RBC 4.76 (4.7-6.1) M/uL Hgb 13.5 L (14.0-18.0) g/dL Hct 44.9 (42-52) % MCV 94.3 (80-100) fL MCH 28.4 (25-34) pg MCHC 30.1 L (32-36) g/dL RDW Std Deviation 54.9 H (36.4-46.3) fL RDW Coeff of Shadi 16.0 H (11.5-14.5) % Plt Count 239 (130-400) K/uL MPV 10.0 (7.4-10.4) fL Sodium (136-145) mmol/L Potassium (3.5-5.1) mmol/L Chloride (98-107) mmol/L Carbon Dioxide (21-32) mmol/L Anion Gap (3-11) BUN (7-18) mg/dl Creatinine (0.6-1.4) mg/dl Est Cr Clr Drug Dosing ml/min Est GFR ( Amer) Est GFR (Non-Af Amer) BUN/Creatinine Ratio (10-20) Glucose (70-99) mg/dl POC Glucose 99 99 (70-99) mg/dl Calcium (8.5-10.1) mg/dl Phosphorus (2.5-4.9) mg/dl Magnesium (1.8-2.4) mg/dl
[2020-02-15] MEDS: MELATONIN 3 MG TAB PO SCH (20:36)
[2020-02-16] MEDS: HYDROCODONE/ACETAMOPHEN 5/325MG TAB PO PRN ×3 (01:33→19:00)
[2020-02-16] MEDS: HEPARIN SODIUM (PORCINE) 7,500 UNITS in SYRINGE 0 ML SQ SCH ×3 (05:37→21:07)
[2020-02-16 08:02] LABS: BUN Creatinine Ratio 18.9 (10-20); Creatinine Clr Calc Pharmacy 66.7 ml/min; Est GFR (African American) 57.5; Est GFR (Non-African American) 49.6; Magnesium 2.8 mg/dl (1.8-2.4); Phosphorus 3.5 mg/dl (2.5-4.9); Potassium 4.6 mmol/L (3.5-5.1)
--- NOTE | 2020-02-16 08:21 | Hospitalist Progress Note ---
Date of Service February 16, 2020 Assessment & Plan (1) Generalized weakness: Likely multifactorial related to many comorbid conditions and new hypoxia. Baseline ambulation is with a walker. PT/OT to assess. (2) Acute diastolic CHF (congestive heart failure): Typically on torsemide which he reports he has been taking. Reports 5lb weight gain in last week. BNP elevated>6K. Denies SOB at home. Denies coughing or other respiratory symptoms, no fever. Hypoxia likely 2/2 pulmonary vascular congestion seen on CXR, he received 500 cc of fluid and was back again in ER next day with persistent congestion and worsened hypoxia. He was given 40mg IV in the ER and within a short amount of time had diuresed 1200cc into a new Patiño bag. Elevated creatinine on admission. Asked for cardiology consult to assist with this as he is also a cirrhosis patient who is obese, making fluid assessments difficult. Trop negative. Denies chest pain. Continued IV Lasix 40 mg daily, anticipate transition to PO torsemide (3) Hypoxia: Acute hypoxic respiratory failure Patient still requiring supplemental oxygen 2/2 CHF and infectious ideology. Cont daily Lasix as above, with titrations per Cardiology. (4) Acute kidney injury: Avoid overdiuresis. Monitor BMP daily UTI associated with chronic Patiño catheter -Urine culture growing Pseudomonas aeruginosa, continue cefepime which was started on admission -Blood cultures pending (5) Leg wound, left: does not appear infected. Wound care consulted for this pannus area, and scrotal area. 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 Broad spectrum abx -Dapto and Cefepime-renally dosed pending blood cultures and clinical improvement. Not septic. (7) Abdominal wall cellulitis: abx as above, cellulitis is a potential reason for his increased weakness. (8) Genital hemangioma: Chronic pain from this issue which also prevents him from receiving full dose anticoagulation in afib. He is receiving daily aspirin and also DVT prophylaxis with heparin. Monitor for bleeding. Consulted wound care provider. (9) Seizures: h/o epilepsy. No recent seizures. Cont Keppra per home regimen. (10) Cirrhosis: No ascites on imaging. Nontender protuberant abdomen. Mentating clearly. Appears compensated. (11) Chronic pain: uses hydrocodone at home but was having severe pain, improved with dilaudid in the ER. (12) Atrial fibrillation: chronic, rate in 90s on admission. Cont metoprolol succinate. Cont ASA. Heart rate now better controlled (13) BPH w urinary obs/LUTS: Cont finasteride per home regimen. Chronic patiño in place. (14) Obstructive sleep apnea: Cannot tolerate CPAP. (15) Diabetes mellitus with diabetic polyneuropathy: Hold Januvia, metformin per home regimen. Basal bolus insulin while hospitalized. Current A1C 6.4%. (16) Obesity: Lifestyle modifications recommended. (17) DVT prophylaxis: Heparin Full Code as verified with patient on admission Dispo-to telemetry Admission and Anticipated Discharge Date Admission Date: February 13, 2020 Subjective Patient is in bed, in no acute distress. Denies any fevers, chills, chest pain, shortness of breath, abdominal pain. Nasal cannula applied. Patient was able to sit in a chair yesterday, inquiring about getting into chair again today. Per , patient cannot return home, as she is not able to take care of him anymore. PT evaluated patient yesterday, recommend SNF, patient is not safe to return home. Unfortunately patient has very poor insight. Review of Systems Review of Systems: All systems reviewed & are unremarkable except as noted in HPI & below Constitutional: no fever and no chills Respiratory: no cough and no dyspnea Cardiovascular: no chest pain and no palpitations Gastrointestinal: no abdominal pain, no nausea and no vomiting Physical Exam Physical Exam: CONSTITUTIONAL: Morbidly obese male, vitals as above, laying in bed, in no acute distress, nasal cannula applied EYES: pupils are round and equal bilaterally, normal conjunctivae, no scleral icterus ENT: external ear and nose normal, oropharynx clear NECK: trachea midline RESPIRATORY: clear to auscultation bilaterally, but breath sounds are somewhat diminished, no crackles, rales or wheezes, normal respiratory effort, on nasal cannula CARDIOVASCULAR: normal rate, irreg rhythm, S1 and 2 heard without murmurs, gallops or rubs, no peripheral edema CHEST: inspection of chest normal GASTROINTESTINAL: normal bowel sounds, soft, nontender, nondistended no guarding, protuberant abdomen : large erythematous scrotal mass,buried penis not visualized, Patiño catheter drains clear yellow urine MUSCULOSKELETAL: strength 5/5 throughout, head is normocephalic and atraumatic SKIN: warm and dry, erythema on scrotum and abdomen as above. 5-10 cm abrasive wound that is nondraining on left lower leg. No surrounding redness suggestive of cellulitis in this area. +erythroderma on bilateral lower legs. significant erythema and irritation within skin folds and under pannus into groin area. Significant erythema on patient's back/buttocks, see image by wound care in EMR NEUROLOGIC: No facial palsy, no dysarthria. CN 2-12 grossly intact, no sensory deficit, normal cognition, normal speech, no tremor. No gross neuro deficits. Gait or ability to stand was not tested 2/2 potential fall risk PSYCHIATRIC: alert cooperative and oriented, however with very poor insight Results & Data Results & Data ([facility]) Vital Signs (Past 12 Hours) Vital Signs Temp Pulse Resp BP Pulse Ox 02/16/20 08:14 36.6 C 72 18 108/72 93 02/16/20 04:00 36.8 C 78 20 142/80 H 90 02/15/20 23:43 36.6 C 79 20 109/68 94 Laboratory Results 02/16/20 02/16/20 02/15/20 Range/Units 07:37 07:01 20:24 WBC (4.8-10.8) K/uL RBC (4.7-6.1) M/uL Hgb (14.0-18.0) g/dL Hct (42-52) % MCV (80-100) fL MCH (25-34) pg MCHC (32-36) g/dL RDW Std Deviation (36.4-46.3) fL RDW Coeff of Shadi (11.5-14.5) % Plt Count (130-400) K/uL MPV (7.4-10.4) fL Sodium 140 (136-145) mmol/L Potassium 4.6 (3.5-5.1) mmol/L Chloride 107 (98-107) mmol/L Carbon Dioxide 27 (21-32) mmol/L Anion Gap 6.0 (3-11) BUN 25 H (7-18) mg/dl Creatinine 1.35 (0.6-1.4) mg/dl Est Cr Clr Drug Dosing 66.7 ml/min Est GFR ( Amer) 57.5 Est GFR (Non-Af Amer) 49.6 BUN/Creatinine Ratio 18.9 (10-20) Glucose 90 (70-99) mg/dl POC Glucose 94 84 (70-99) mg/dl Calcium 8.0 L (8.5-10.1) mg/dl Phosphorus 3.5 (2.5-4.9) mg/dl Magnesium 2.8 H (1.8-2.4) mg/dl 02/15/20 02/15/20 02/15/20 Range/Units 16:56 11:31 07:38 WBC (4.8-10.8) K/uL RBC (4.7-6.1) M/uL Hgb (14.0-18.0) g/dL Hct (42-52) % MCV (80-100) fL MCH (25-34) pg MCHC (32-36) g/dL RDW Std Deviation (36.4-46.3) fL RDW Coeff of Shadi (11.5-14.5) % Plt Count (130-400) K/uL MPV (7.4-10.4) fL Sodium 139 (136-145) mmol/L Potassium 4.1 (3.5-5.1) mmol/L Chloride 104 (98-107) mmol/L Carbon Dioxide 31 (21-32) mmol/L Anion Gap 4.0 (3-11) BUN 29 H (7-18) mg/dl Creatinine 1.58 H (0.6-1.4) mg/dl Est Cr Clr Drug Dosing 57.4 ml/min Est GFR ( Amer) 47.5 Est GFR (Non-Af Amer) 41.0 BUN/Creatinine Ratio 18.4 (10-20) Glucose 91 (70-99) mg/dl POC Glucose 100 H 107 H (70-99) mg/dl Calcium 8.6 (8.5-10.1) mg/dl Phosphorus 3.3 (2.5-4.9) mg/dl Magnesium 2.8 H (1.8-2.4) mg/dl 02/15/20 Range/Units 07:38 WBC 7.83 (4.8-10.8) K/uL RBC 4.76 (4.7-6.1) M/uL Hgb 13.5 L (14.0-18.0) g/dL Hct 44.9 (42-52) % MCV 94.3 (80-100) fL MCH 28.4 (25-34) pg MCHC 30.1 L (32-36) g/dL RDW Std Deviation 54.9 H (36.4-46.3) fL RDW Coeff of Shadi 16.0 H (11.5-14.5) % Plt Count 239 (130-400) K/uL MPV 10.0 (7.4-10.4) fL Sodium (136-145) mmol/L Potassium (3.5-5.1) mmol/L Chloride (98-107) mmol/L Carbon Dioxide (21-32) mmol/L Anion Gap (3-11) BUN (7-18) mg/dl Creatinine (0.6-1.4) mg/dl Est Cr Clr Drug Dosing ml/min Est GFR ( Amer) Est GFR (Non-Af Amer) BUN/Creatinine Ratio (10-20) Glucose (70-99) mg/dl POC Glucose (70-99) mg/dl Calcium (8.5-10.1) mg/dl Phosphorus (2.5-4.9) mg/dl Magnesium (1.8-2.4) mg/dl Medications Administered Current Inpatient Medications Acetaminophen (Acetaminophen 325 Mg Tab) 650 mg PO Q4H PRN PRN Reason: Pain or Fever Stop: 03/14/20 20:06 Last Admin: 02/14/20 16:01 Dose: 650 mg Documented by: Hydrocodone Bitart/Acetaminophen (Hydrocodone/Acetamophen 5/325mg Tab) 1 tab PO Q8H PRN PRN Reason: Pain, Moderate Stop: 02/27/20 19:50 Last Admin: 02/16/20 01:33 Dose: 1 tab Documented by: Aspirin (Aspirin 81 Mg Ectab) 81 mg PO DAILY [facility] Stop: 03/15/20 08:59 Last Admin: 02/15/20 08:27 Dose: 81 mg Documented by: Dextrose (Dextrose 50% 50 Ml Syringe) 25 - 50 ml IV UD PRN; Protocol PRN Reason: Hypoglycemia Protocol Stop: 03/14/20 19:53 Ferrous Sulfate (Ferrous Sulfate 325 Mg Tab) 325 mg PO BID [facility] Stop: 03/14/20 20:59 Last Admin: 02/15/20 20:36 Dose: 325 mg Documented by: Finasteride (Finasteride 5 Mg Tab) 5 mg PO DAILY [facility]IYA Stop: 03/15/20 08:59 Last Admin: 02/15/20 08:27 Dose: 5 mg Documented by: Glucagon (Glucagon For Inj 1 Mg Vial) 1 mg SQ UD PRN; Protocol PRN Reason: Hypoglycemia Protocol Stop: 03/14/20 19:53 Glucose (Glucose 10 Tabs/Tube) 4 - 8 tabs PO UD PRN; Protocol PRN Reason: Hypoglycemia Protocol Stop: 03/14/20 19:53 Glucose (Glucose 40% Gel 15 Gm Tube) 15 - 30 gm PO UD PRN; Protocol PRN Reason: Hypoglycemia Protocol Stop: 03/14/20 19:53 Cefepime HCl 2,000 mg/ Syringe 20 mls @ 5.5 mls/min IV Q24H MARIYA; Protocol Stop: 02/19/20 16:04 Last Admin: 02/15/20 15:29 Dose: 5.5 mls/min Documented by: Furosemide 40 mg/ Syringe 4 mls @ 4 mls/min IV DAILY [facility] Stop: 03/15/20 08:59 Last Admin: 02/15/20 08:27 Dose: 4 mls/min Documented by: Daptomycin 425 mg/ Syringe 8.5 mls @ 4.25 mls/min IV Q24H MARIYA; Protocol Stop: 02/21/20 16:59 Last Admin: 02/15/20 17:22 Dose: 4.25 mls/min Documented by: Heparin Sodium (Porcine) 7,500 (units/ Syringe) 0.75 mls @ 0 mls/sec SQ Q8 MARIYA Stop: 03/14/20 21:59 Last Admin: 02/16/20 05:37 Dose: 1 mls/sec Documented by: Insulin Aspart (Insulin Aspart 100 Units/Ml 3 Ml Pen) 0 units SC ACHS MARIYA Stop: 03/14/20 20:59 Last Admin: 02/15/20 20:33 Dose: Not Given Documented by: Insulin Glargine (Insulin Glargine Solostar 100 Units/Ml 3 Ml Pen) 15 units SC BID MARIYA Stop: 03/14/20 20:59 Last Admin: 02/15/20 20:33 Dose: 15 units Documented by: Levetiracetam (Levetiracetam 500 Mg Tab) 500 mg PO BID [facility] Stop: 03/14/20 20:59 Last Admin: 02/15/20 20:36 Dose: 500 mg Documented by: Melatonin (Melatonin 3 Mg Tab) 3 mg PO HS MARIYA Stop: 03/15/20 20:59 Last Admin: 02/15/20 20:36 Dose: 3 mg Documented by: Metoprolol Succinate (Metoprolol Succ 50mg Ext Rel Tab) 200 mg PO DAILY [facility] Stop: 03/15/20 08:59 Last Admin: 02/15/20 08:27 Dose: 200 mg Documented by: Miscellaneous (Carbohydrates For Hypoglycemia ) 15 - 30 gm PO UD PRN PRN Reason: Hypoglycemia Protocol Stop: 03/14/20 19:53 Miscellaneous Information (Daptomycin Consult Active) 1 ea N/A UD MARIYA Stop: 03/14/20 20:22 Miscellaneous Information (Cefepime Consult Active) 1 ea N/A UD PRN PRN Reason: Consult Stop: 03/16/20 14:50 Pantoprazole Sodium (Pantoprazole 40 Mg Tab) 40 mg PO BID MARIYA Stop: 03/14/20 20:59 Last Admin: 02/15/20 20:36 Dose: 40 mg Documented by: Potassium Chloride (Potassium Chloride 10 Meq Tabcr) 10 meq PO DAILY [facility] Stop: 03/15/20 08:59 Last Admin: 02/15/20 08:27 Dose: 10 meq Documented by:
[2020-02-16] MEDS: FINASTERIDE 5 MG TAB PO SCH (08:31)
[2020-02-16] MEDS: METOPROLOL SUCC 50MG EXT REL TAB PO SCH (08:31)
[2020-02-16] MEDS: POTASSIUM CHLORIDE 10 MEQ TABCR PO SCH (08:31)
[2020-02-16] MEDS: FERROUS SULFATE 325 MG TAB PO SCH ×2 (08:32→21:05)
[2020-02-16] MEDS: levETIRAcetam 500 MG TAB PO SCH ×2 (08:32→21:06)
[2020-02-16] MEDS: FUROSEMIDE 40 MG in SYRINGE 0 ML IV SCH (08:32)
[2020-02-16] MEDS: INSULIN GLARGINE SOLOSTAR 100 UNITS/ML 3 ML PEN SC SCH ×2 (08:32→21:06)
[2020-02-16] MEDS: ASPIRIN 81 MG ECTAB PO SCH (08:32)
[2020-02-16] MEDS: PANTOprazole 40 MG TAB PO SCH ×2 (08:32→21:06)
[2020-02-16] MEDS: INSULIN ASPART 100 UNITS/ML 3 ML PEN SC SCH ×4 (08:33→21:06)
--- NOTE | 2020-02-16 11:39 | Cardiology Progress Note ---
Date of Service February 16, 2020 Assessment & Plan (1) Generalized weakness: (2) Acute diastolic heart failure: Preserved to hyperdynamic LV function present (3) Atrial fibrillation with rapid ventricular response: Patient admitted with generalized weakness, progressive x 2 weeks according to 's report on admission. He denies these issues. Urinary and blood cultures pending. He has a long history of urinary sepsis likely contributing to his symptoms. His heart rates have trended down since admission. Continue home dose metoprolol. 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 Mild diastolic heart failure right greater than left present responding to diuretics. Patient on appropriate dose CHF indicated beta-john Hyperkalemia an issue as an outpatient. With contraindications to MAURILIO or ARB, spironolactone Will anticipate transitioning from IV furosemide to torsemide 60 mg p.o. daily Admission and Anticipated Discharge Date Admission Date: February 13, 2020 Subjective Patient seen and examined, chart, medications, telemetry reviewed. Patient denies any acute complaints. Has continued to manifest gradual diuresis with weight down 5 kg Heart rate controlled without tachyarrhythmias Physical Exam Constitutional: WD/WN, vitals as above + morbidly obese Eyes: PERRL, conjunctivae normal, anicteric sclerae ENMT: external ear and nose normal, oropharynx normal Neck: trachea midline, no thyromegaly + thick neck Respiratory: Auscultation: + diminished lung sounds Cardiovascular: Rate/Rhythm: + irregularly irregular Heart Sounds: normal S1, normal S2 and + murmur (Grade 2/6 systolic); no gallop Palpation: normal PMI Vessels: normal carotid upstroke and radial pulses present; no JVD and no carotid bruit Extremities: + edema (Chronic 2+ with stasis changes mildly improved) Gastrointestinal (Abdomen): normal bowel sounds, soft, nontender, no hepatosplenomegaly Musculoskeletal: no cyanosis or clubbing, extremities motor strength 5/5 Skin: no rashes, warm and dry Neurologic: PERRL, EOMI, accommodation nl, no face palsy, no dysarthria Psychiatric: A+Ox3, euthymic affect Results & Data ([facility]) Vital Signs (Past 12 Hours) Vital Signs Temp Pulse Resp BP Pulse Ox 02/16/20 08:14 36.6 C 72 18 108/72 93 02/16/20 04:00 36.8 C 78 20 142/80 H 90 02/15/20 23:43 36.6 C 79 20 109/68 94 Laboratory Results Laboratory Results - last 24 hr 02/15/20 02/15/20 02/16/20 16:56 20:24 07:01 Sodium 140 Potassium 4.6 Chloride 107 Carbon Dioxide 27 Anion Gap 6.0 BUN 25 H Creatinine 1.35 Est Cr Clr Drug Dosing 66.7 Est GFR ( Amer) 57.5 Est GFR (Non-Af Amer) 49.6 BUN/Creatinine Ratio 18.9 Glucose 90 POC Glucose 100 H 84 Calcium 8.0 L Phosphorus 3.5 Magnesium 2.8 H 02/16/20 02/16/20 07:37 11:22 Sodium Potassium Chloride Carbon Dioxide Anion Gap BUN Creatinine Est Cr Clr Drug Dosing Est GFR ( Amer) Est GFR (Non-Af Amer) BUN/Creatinine Ratio Glucose POC Glucose 94 120 H Calcium Phosphorus Magnesium
[2020-02-16] MEDS: DAPTOmycin 425 MG in SYRINGE 0 ML IV SCH (16:48)
[2020-02-16] MEDS: CEFEPIME 2,000 MG in SYRINGE 7.5 ML IV SCH (16:48)
[2020-02-16] MEDS: ACETAMINOPHEN 325 MG TAB PO PRN (17:09)
[2020-02-16] MEDS: MELATONIN 3 MG TAB PO SCH (21:06)
[2020-02-17] MEDS: ACETAMINOPHEN 325 MG TAB PO PRN ×2 (00:56→20:12)
[2020-02-17] MEDS: HEPARIN SODIUM (PORCINE) 7,500 UNITS in SYRINGE 0 ML SQ SCH ×3 (05:19→21:08)
[2020-02-17 07:05] LABS: BUN Creatinine Ratio 20.9 (10-20); Calcium 8.1 mg/dl (8.5-10.1); Creatinine Clr Calc Pharmacy 63.7 ml/min; Est GFR (African American) 54.1; Est GFR (Non-African American) 46.6; Potassium 4.3 mmol/L (3.5-5.1)
[2020-02-17] MEDS: POTASSIUM CHLORIDE 10 MEQ TABCR PO SCH (07:59)
[2020-02-17] MEDS: levETIRAcetam 500 MG TAB PO SCH ×2 (07:59→20:15)
[2020-02-17] MEDS: FERROUS SULFATE 325 MG TAB PO SCH ×2 (07:59→20:14)
[2020-02-17] MEDS: ASPIRIN 81 MG ECTAB PO SCH (07:59)
[2020-02-17] MEDS: PANTOprazole 40 MG TAB PO SCH ×2 (08:00→20:13)
[2020-02-17] MEDS: METOPROLOL SUCC 50MG EXT REL TAB PO SCH (08:00)
[2020-02-17] MEDS: FUROSEMIDE 40 MG in SYRINGE 0 ML IV SCH (08:00)
[2020-02-17] MEDS: FINASTERIDE 5 MG TAB PO SCH (08:00)
[2020-02-17] MEDS: INSULIN GLARGINE SOLOSTAR 100 UNITS/ML 3 ML PEN SC SCH ×2 (08:09→21:05)
[2020-02-17] MEDS: INSULIN ASPART 100 UNITS/ML 3 ML PEN SC SCH ×4 (08:09→21:05)
--- NOTE | 2020-02-17 08:46 | Hospitalist Progress Note ---
Date of Service February 17, 2020 Assessment & Plan (1) Generalized weakness: Likely multifactorial related to many comorbid conditions and new hypoxia. Baseline ambulation is with a walker. PT/OT to assess. (2) Acute diastolic CHF (congestive heart failure): Typically on torsemide which he reports he has been taking. Reports 5lb weight gain in last week. BNP elevated>6K. Denies SOB at home. Denies coughing or other respiratory symptoms, no fever. Hypoxia likely 2/2 pulmonary vascular congestion seen on CXR, he received 500 cc of fluid and was back again in ER next day with persistent congestion and worsened hypoxia. He was given 40mg IV in the ER and within a short amount of time had diuresed 1200cc into a new Patiño bag. Elevated creatinine on admission. Asked for cardiology consult to assist with this as he is also a cirrhosis patient who is obese, making fluid assessments difficult. Trop negative. Denies chest pain. Continued IV Lasix 40 mg daily, plan to transition to PO torsemide today (3) Hypoxia: Acute hypoxic respiratory failure Patient still requiring supplemental oxygen 2/2 CHF and infectious ideology. IV Lasix as above,now transition to torsemide, per Cardiology. (4) Acute kidney injury: Avoid overdiuresis. Monitor BMP daily UTI associated with chronic Patiño catheter -Urine culture growing Pseudomonas aeruginosa, continue cefepime which was started on admission -Blood cultures pending (5) Leg wound, left: does not appear infected. Wound care consulted for this pannus area, and scrotal area. 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 Broad spectrum abx -Dapto and Cefepime-renally dosed pending blood cultures and clinical improvement. Not septic. (7) Abdominal wall cellulitis: abx as above, cellulitis is a potential reason for his increased weakness. (8) Genital hemangioma: Chronic pain from this issue which also prevents him from receiving full dose anticoagulation in afib. He is receiving daily aspirin and also DVT prophylaxis with heparin. Monitor for bleeding. Consulted wound care provider. (9) Seizures: h/o epilepsy. No recent seizures. Cont Keppra per home regimen. (10) Cirrhosis: No ascites on imaging. Nontender protuberant abdomen. Mentating clearly. Appears compensated. (11) Chronic pain: uses hydrocodone at home but was having severe pain, improved with dilaudid in the ER. (12) Atrial fibrillation: chronic, rate in 90s on admission. Cont metoprolol succinate. Cont ASA. Heart rate now better controlled (13) BPH w urinary obs/LUTS: Cont finasteride per home regimen. Chronic patiño in place. (14) Obstructive sleep apnea: Cannot tolerate CPAP. (15) Diabetes mellitus with diabetic polyneuropathy: Hold Januvia, metformin per home regimen. Basal bolus insulin while hospitalized. Current A1C 6.4%. (16) Obesity: Lifestyle modifications recommended. (17) DVT prophylaxis: Heparin Full Code as verified with patient on admission Dispo-to telemetry Admission and Anticipated Discharge Date Admission Date: February 13, 2020 Subjective Patient is lying in bed, in no acute distress. Denies any fevers, chills, chest pain, shortness of breath, abdominal pain. Nasal cannula applied. Per , patient cannot return home, as she is not able to take care of him anymore. PT evaluated patient yesterday, recommend SNF, patient is not safe to return home. Unfortunately patient has very poor insight. Discussed SNF with the patient, he is now in agreement that he may need it. Review of Systems Review of Systems: All systems reviewed & are unremarkable except as noted in HPI & below Constitutional: no fever and no chills Respiratory: no cough and no dyspnea Cardiovascular: no chest pain and no palpitations Gastrointestinal: no abdominal pain, no nausea and no vomiting Physical Exam Physical Exam: CONSTITUTIONAL: Morbidly obese male, vitals as above, laying in bed, in no acute distress, nasal cannula applied EYES: pupils are round and equal bilaterally, normal conjunctivae, no scleral icterus ENT: external ear and nose normal, oropharynx clear NECK: trachea midline RESPIRATORY: clear to auscultation bilaterally, but breath sounds are somewhat diminished, no crackles, rales or wheezes, normal respiratory effort, on nasal cannula CARDIOVASCULAR: normal rate, irreg rhythm, S1 and 2 heard without murmurs, gallops or rubs, no peripheral edema CHEST: inspection of chest normal GASTROINTESTINAL: normal bowel sounds, soft, nontender, nondistended no guarding, protuberant abdomen : large erythematous scrotal mass,buried penis not visualized, Patiño catheter drains clear yellow urine MUSCULOSKELETAL: strength 5/5 throughout, head is normocephalic and atraumatic SKIN: warm and dry, erythema on scrotum and abdomen as above. 5-10 cm abrasive wound that is nondraining on left lower leg. No surrounding redness suggestive of cellulitis in this area. +erythroderma on bilateral lower legs. significant erythema and irritation within skin folds and under pannus into groin area. Significant erythema on patient's back/buttocks, see image by wound care in EMR NEUROLOGIC: No facial palsy, no dysarthria. CN 2-12 grossly intact, no sensory deficit, normal cognition, normal speech, no tremor. No gross neuro deficits. Gait or ability to stand was not tested 2/2 potential fall risk PSYCHIATRIC: alert cooperative and oriented, however with very poor insight Results & Data Results & Data ([facility]) Vital Signs (Past 12 Hours) Vital Signs Temp Pulse Pulse Resp BP Pulse Ox 02/17/20 08: 36.7 C 83 20 124/75 92 02/17/20 07:21 78 02/17/20 03:27 36.5 C 78 18 128/81 94 02/17/20 00:04 82 02/16/20 23:21 36.6 C 78 18 118/74 91 Laboratory Results 02/17/20 02/17/20 02/16/20 Range/Units 07:47 06:15 20:13 Sodium 138 (136-145) mmol/L Potassium 4.3 (3.5-5.1) mmol/L Chloride 106 (98-107) mmol/L Carbon Dioxide 27 (21-32) mmol/L Anion Gap 5.0 (3-11) BUN 30 H (7-18) mg/dl Creatinine 1.42 H (0.6-1.4) mg/dl Est Cr Clr Drug Dosing 63.7 ml/min Est GFR ( Amer) 54.1 Est GFR (Non-Af Amer) 46.6 BUN/Creatinine Ratio 20.9 H (10-20) Glucose 84 (70-99) mg/dl POC Glucose 94 119 H (70-99) mg/dl Calcium 8.1 L (8.5-10.1) mg/dl 02/16/20 02/16/20 Range/Units 16:13 11:22 Sodium (136-145) mmol/L Potassium (3.5-5.1) mmol/L Chloride (98-107) mmol/L Carbon Dioxide (21-32) mmol/L Anion Gap (3-11) BUN (7-18) mg/dl Creatinine (0.6-1.4) mg/dl Est Cr Clr Drug Dosing ml/min Est GFR ( Amer) Est GFR (Non-Af Amer) BUN/Creatinine Ratio (10-20) Glucose (70-99) mg/dl POC Glucose 89 120 H (70-99) mg/dl Calcium (8.5-10.1) mg/dl Medications Administered Current Inpatient Medications Acetaminophen (Acetaminophen 325 Mg Tab) 650 mg PO Q4H PRN PRN Reason: Pain or Fever Stop: 03/14/20 20:06 Last Admin: 02/17/20 00:56 Dose: 650 mg Documented by: Hydrocodone Bitart/Acetaminophen (Hydrocodone/Acetamophen 5/325mg Tab) 1 tab PO Q8H PRN PRN Reason: Pain, Moderate Stop: 02/27/20 19:50 Last Admin: 02/16/20 19:00 Dose: 1 tab Documented by: Aspirin (Aspirin 81 Mg Ectab) 81 mg PO DAILY [facility] Stop: 03/15/20 08:59 Last Admin: 02/17/20 07:59 Dose: 81 mg Documented by: Dextrose (Dextrose 50% 50 Ml Syringe) 25 - 50 ml IV UD PRN; Protocol PRN Reason: Hypoglycemia Protocol Stop: 03/14/20 19:53 Ferrous Sulfate (Ferrous Sulfate 325 Mg Tab) 325 mg PO BID [facility] Stop: 03/14/20 20:59 Last Admin: 02/17/20 07:59 Dose: 325 mg Documented by: Finasteride (Finasteride 5 Mg Tab) 5 mg PO DAILY [facility] Stop: 03/15/20 08:59 Last Admin: 02/17/20 08:00 Dose: 5 mg Documented by: Glucagon (Glucagon For Inj 1 Mg Vial) 1 mg SQ UD PRN; Protocol PRN Reason: Hypoglycemia Protocol Stop: 03/14/20 19:53 Glucose (Glucose 10 Tabs/Tube) 4 - 8 tabs PO UD PRN; Protocol PRN Reason: Hypoglycemia Protocol Stop: 03/14/20 19:53 Glucose (Glucose 40% Gel 15 Gm Tube) 15 - 30 gm PO UD PRN; Protocol PRN Reason: Hypoglycemia Protocol Stop: 03/14/20 19:53 Cefepime HCl 2,000 mg/ Syringe 20 mls @ 5.5 mls/min IV Q24H [facility]; Protocol Stop: 02/19/20 16:04 Last Admin: 02/16/20 16:48 Dose: 5.5 mls/min Documented by: Furosemide 40 mg/ Syringe 4 mls @ 4 mls/min IV DAILY [facility] Stop: 03/15/20 08:59 Last Admin: 02/17/20 08:00 Dose: 4 mls/min Documented by: Daptomycin 425 mg/ Syringe 8.5 mls @ 4.25 mls/min IV Q24H [facility]; Protocol Stop: 02/21/20 16:59 Last Admin: 02/16/20 16:48 Dose: 4.25 mls/min Documented by: Heparin Sodium (Porcine) 7,500 (units/ Syringe) 0.75 mls @ 0 mls/sec SQ Q8 [facility] Stop: 03/14/20 21:59 Last Admin: 02/17/20 05:19 Dose: 1 mls/sec Documented by: Insulin Aspart (Insulin Aspart 100 Units/Ml 3 Ml Pen) 0 units SC ACHS [facility] Stop: 03/14/20 20:59 Last Admin: 02/17/20 08:09 Dose: 6 units Documented by: Insulin Glargine (Insulin Glargine Solostar 100 Units/Ml 3 Ml Pen) 15 units SC BID [facility] Stop: 03/14/20 20:59 Last Admin: 02/17/20 08:09 Dose: 15 units Documented by: Levetiracetam (Levetiracetam 500 Mg Tab) 500 mg PO BID [facility] Stop: 03/14/20 20:59 Last Admin: 02/17/20 07:59 Dose: 500 mg Documented by: Melatonin (Melatonin 3 Mg Tab) 3 mg PO HS [facility] Stop: 03/15/20 20:59 Last Admin: 02/16/20 21:06 Dose: 3 mg Documented by: Metoprolol Succinate (Metoprolol Succ 50mg Ext Rel Tab) 200 mg PO DAILY [facility] Stop: 03/15/20 08:59 Last Admin: 02/17/20 08:00 Dose: 200 mg Documented by: Miscellaneous (Carbohydrates For Hypoglycemia ) 15 - 30 gm PO UD PRN PRN Reason: Hypoglycemia Protocol Stop: 03/14/20 19:53 Miscellaneous Information (Daptomycin Consult Active) 1 ea N/A UD [facility] Stop: 03/14/20 20:22 Miscellaneous Information (Cefepime Consult Active) 1 ea N/A UD PRN PRN Reason: Consult Stop: 03/16/20 14:50 Pantoprazole Sodium (Pantoprazole 40 Mg Tab) 40 mg PO BID [facility] Stop: 03/14/20 20:59 Last Admin: 02/17/20 08:00 Dose: 40 mg Documented by: Potassium Chloride (Potassium Chloride 10 Meq Tabcr) 10 meq PO DAILY [facility] Stop: 03/15/20 08:59 Last Admin: 02/17/20 07:59 Dose: 10 meq Documented by:
--- NOTE | 2020-02-17 11:00 | Cardiology Progress Note ---
Date of Service February 17, 2020 Assessment & Plan (1) Generalized weakness: (2) Acute diastolic heart failure: Preserved to hyperdynamic LV function present (3) Atrial fibrillation with rapid ventricular response: Patient admitted with generalized weakness, progressive x 2 weeks according to 's report on admission. He denies these issues. Urinary and blood cultures pending. He has a long history of urinary sepsis likely contributing to his symptoms. His heart rates have trended down since admission. Continue home dose metoprolol. 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 Mild diastolic heart failure right greater than left present responding to diuretics. Patient on appropriate dose CHF indicated beta-john Hyperkalemia an issue as an outpatient. With contraindications to MAURILIO or ARB, spironolactone We will discontinue IV Lasix and assess change to torsemide 40 twice daily Admission and Anticipated Discharge Date Admission Date: February 13, 2020 Physical Exam Constitutional: WD/WN, vitals as above + morbidly obese Eyes: PERRL, conjunctivae normal, anicteric sclerae ENMT: external ear and nose normal, oropharynx normal Neck: trachea midline, no thyromegaly + thick neck Respiratory: Auscultation: + diminished lung sounds Cardiovascular: Rate/Rhythm: + irregularly irregular Heart Sounds: normal S1, normal S2 and + murmur (Grade 2/6 systolic); no gallop Palpation: normal PMI Vessels: normal carotid upstroke and radial pulses present; no JVD and no carotid bruit Extremities: + edema (Chronic 2+ with stasis changes mildly improved) Gastrointestinal (Abdomen): normal bowel sounds, soft, nontender, no hepatosplenomegaly Musculoskeletal: no cyanosis or clubbing, extremities motor strength 5/5 Skin: Trauma: + evidence of skin trauma Large ecchymosis left back with small skin tear Neurologic: PERRL, EOMI, accommodation nl, no face palsy, no dysarthria Psychiatric: A+Ox3, euthymic affect Results & Data ([facility]) Vital Signs (Past 12 Hours) Vital Signs Temp Pulse Pulse Resp BP Pulse Ox 02/17/20 08:17 36.7 C 83 20 124/75 92 02/17/20 07:21 78 02/17/20 03:27 36.5 C 78 18 128/81 94 02/17/20 00:04 82 02/16/20 23:21 36.6 C 78 18 118/74 91
[2020-02-17] MEDS: CEFEPIME 2,000 MG in SYRINGE 7.5 ML IV SCH ×2 (12:41→20:12)
[2020-02-17] MEDS: HYDROCODONE/ACETAMOPHEN 5/325MG TAB PO PRN ×2 (13:16→21:03)
[2020-02-17] MEDS: DAPTOmycin 425 MG in SYRINGE 0 ML IV SCH (17:28)
[2020-02-17] MEDS: TORSEMIDE 10 MG TAB PO SCH (17:28)
[2020-02-17] MEDS: MELATONIN 3 MG TAB PO SCH (22:25)
[2020-02-18] MEDS: ACETAMINOPHEN 325 MG TAB PO PRN ×2 (00:53→23:49)
[2020-02-18] MEDS ORDERED: HYDROmorphone INJ 0.5 MG/0.5 ML SYR IV PRN (01:15)
[2020-02-18] MEDS ORDERED: HYDROmorphone INJ 0.5 MG/0.5 ML SYR ONE (01:24)
[2020-02-18] MEDS: OXYCODONE HCL IR 5 MG TAB (IMMEDIATE RELEASE) PO PRN ×4 (02:56→21:27)
[2020-02-18] MEDS: CEFEPIME 2,000 MG in SYRINGE 7.5 ML IV SCH ×3 (04:31→21:19)
[2020-02-18] MEDS: HEPARIN SODIUM (PORCINE) 7,500 UNITS in SYRINGE 0 ML SQ SCH ×3 (06:35→21:21)
[2020-02-18 06:39] LABS: Hematocrit (blood only) 43.8 % (42-52); Hemoglobin 13.6 g/dL (14.0-18.0); Mean Corpuscular Hemoglobin 28.6 pg (25-34); Mean Corpuscular Hgb Conc 31.1 g/dL (32-36); Mean Platelet Volume 9.5 fL (7.4-10.4); Platelet Count 232 K/uL (130-400); RDW Coefficient of Variation 15.9 % (11.5-14.5); RDW Standard Deviation 53.4 fL (36.4-46.3); Red Blood Count 4.76 M/uL (4.7-6.1); White Blood Count 8.48 K/uL (4.8-10.8)
[2020-02-18 07:20] LABS: BUN Creatinine Ratio 20.4 (10-20); Calcium 8.4 mg/dl (8.5-10.1); Creatinine Clr Calc Pharmacy 59.4 ml/min; Est GFR (African American) 49.8
--- NOTE | 2020-02-18 07:55 | Hospitalist Progress Note ---
Date of Service February 18, 2020 Assessment & Plan (1) Generalized weakness: Likely multifactorial related to many comorbid conditions and new hypoxia. Baseline ambulation is with a walker. PT/OT to assess. (2) Acute diastolic CHF (congestive heart failure): Typically on torsemide which he reports he has been taking. Reports 5lb weight gain in last week. BNP elevated>6K. Denies SOB at home. Denies coughing or other respiratory symptoms, no fever. Hypoxia likely 2/2 pulmonary vascular congestion seen on CXR, he received 500 cc of fluid and was back again in ER next day with persistent congestion and worsened hypoxia. He was given 40mg IV in the ER and within a short amount of time had diuresed 1200cc into a new Patiño bag. Elevated creatinine on admission. Asked for cardiology consult to assist with this as he is also a cirrhosis patient who is obese, making fluid assessments difficult. Trop negative. Denies chest pain. Continued IV Lasix 40 mg daily, then transitioned to PO torsemide yesterday (3) Hypoxia: Acute hypoxic respiratory failure Patient is now on room air, 2 step study obtained, patient does not require any supplemental oxygen. 2/2 CHF and infectious ideology. IV Lasix as above,then transitioned to PO torsemide, per Cardiology. (4) Acute kidney injury: Avoid overdiuresis. Monitor BMP daily UTI associated with chronic Patiño catheter -Urine culture growing Pseudomonas aeruginosa, continued cefepime which was started on admission (02/12), plan to finish Abx course before dc to SNF -Blood cultures pending -Discussed with Dr. Machuca from urology (02/17), he does not believe the pt needs to exchange Patiño catheter at this time. Patient usually gets his catheter exchanged every 6 weeks in [facility]. Last exchange was done 2 weeks ago. Per urology, continue his regular scheduled appointments. (5) Leg wound, left: does not appear infected. Wound care consulted for the pannus area, and scrotal area. 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 Broad spectrum abx -Dapto and Cefepime-renally dosed pending blood cultures and clinical improvement. Not septic. (7) Abdominal wall cellulitis: abx as above, cellulitis is a potential reason for his increased weakness. (8) Genital hemangioma: Chronic pain from this issue which also prevents him from receiving full dose anticoagulation in afib. He is receiving daily aspirin and also DVT prophylaxis with heparin. Monitor for bleeding. Consulted wound care provider. (9) Seizures: h/o epilepsy. No recent seizures. Cont Keppra per home regimen. (10) Cirrhosis: No ascites on imaging. Nontender protuberant abdomen. Mentating clearly. Appears compensated. (11) Chronic pain: uses hydrocodone at home but was having severe pain, improved with d ilaudid in the ER. (12) Atrial fibrillation: chronic, rate in 90s on admission. Cont metoprolol succinate. Cont ASA. Heart rate now better controlled (13) BPH w urinary obs/LUTS: Cont finasteride per home regimen. Chronic patiño in place. (14) Obstructive sleep apnea: Cannot tolerate CPAP. (15) Diabetes mellitus with diabetic polyneuropathy: Hold Januvia, metformin per home regimen. Basal bolus insulin while hospitalized. Current A1C 6.4%. (16) Obesity: Lifestyle modifications recommended. (17) DVT prophylaxis: Heparin Full Code as verified with patient on admission Dispo-to telemetry Admission and Anticipated Discharge Date Admission Date: February 13, 2020 Subjective No acute events overnight. Patient is lying in bed, in no acute distress. Denies any fevers, chills, chest pain, shortness of breath, abdominal pain, nausea or vomiting. Plan for SNF. Review of Systems Review of Systems: All systems reviewed & are unremarkable except as noted in HPI & below Constitutional: no fever and no chills Respiratory: no cough and no dyspnea Cardiovascular: no chest pain and no palpitations Gastrointestinal: no abdominal pain, no nausea and no vomiting Physical Exam Physical Exam: CONSTITUTIONAL: Morbidly obese male, vitals as above, laying in bed, in no acute distress, on RA EYES: pupils are round and equal bilaterally, EOMI, normal conjunctivae, no scleral icterus ENT: external ear and nose normal, oropharynx clear NECK: trachea midline RESPIRATORY: clear to auscultation bilaterally, but breath sounds are somewhat diminished, no crackles, rales or wheezes, normal respiratory effort, on RA CARDIOVASCULAR: normal rate, irreg rhythm, S1 and 2 heard without murmurs, gallops or rubs, no peripheral edema CHEST: inspection of chest normal GASTROINTESTINAL: normal bowel sounds, soft, nontender, nondistended no guarding, protuberant abdomen : large erythematous scrotal mass,buried penis not visualized, Patiño catheter drains clear yellow urine MUSCULOSKELETAL: strength 5/5 throughout, head is normocephalic and atraumatic SKIN: warm and dry, erythema on scrotum and abdomen as above. 5-10 cm abrasive wound that is nondraining on left lower leg. No surrounding redness suggestive of cellulitis in this area. +erythroderma on bilateral lower legs. significant erythema and irritation within skin folds and under pannus into groin area. Significant erythema on patient's back/buttocks, see image by wound care in EMR NEUROLOGIC: No facial palsy, no dysarthria. CN 2-12 grossly intact, no sensory deficit, normal cognition, normal speech, no tremor. No gross neuro deficits. Gait or ability to stand was not tested 2/2 potential fall risk PSYCHIATRIC: alert cooperative and oriented, however with very poor insight Results & Data Results & Data ([facility]) Vital Signs (Past 12 Hours) Vital Signs Temp Pulse Pulse Pulse Resp BP BP 02/18/20 07:18 36.7 C 87 16 152/91 H 02/18/20 03:13 36.6 C 78 19 102/63 02/17/20 23:41 36.5 C 83 20 116/74 02/17/20 23:19 82 02/17/20 20:23 36.3 C L 88 20 106/69 Pulse Ox 02/18/20 07:18 87 L 02/18/20 03:13 91 02/17/20 23:41 92 02/17/20 23:19 02/17/20 20:23 91 Laboratory Results 02/18/20 02/18/20 02/18/20 Range/Units 07:30 07:24 06:26 WBC (4.8-10.8) K/uL RBC (4.7-6.1) M/uL Hgb (14.0-18.0) g/dL Hct (42-52) % MCV (80-100) fL MCH (25-34) pg MCHC (32-36) g/dL RDW Std Deviation (36.4-46.3) fL RDW Coeff of Shadi (11.5-14.5) % Plt Count (130-400) K/uL MPV (7.4-10.4) fL Sodium 137 (136-145) mmol/L Potassium Pending (3.5-5.1) mmol/L Chloride 104 (98-107) mmol/L Carbon Dioxide 29 (21-32) mmol/L Anion Gap 4.0 (3-11) BUN 31 H (7-18) mg/dl Creatinine 1.52 H (0.6-1.4) mg/dl Est Cr Clr Drug Dosing 59.4 ml/min Est GFR ( Amer) 49.8 Est GFR (Non-Af Amer) 43.0 BUN/Creatinine Ratio 20.4 H (10-20) Glucose 82 (70-99) mg/dl POC Glucose 95 (70-99) mg/dl Calcium 8.4 L (8.5-10.1) mg/dl 02/18/20 02/17/20 02/17/20 Range/Units 06:26 20:50 16:55 WBC 8.48 (4.8-10.8) K/uL RBC 4.76 (4.7-6.1) M/uL Hgb 13.6 L (14.0-18.0) g/dL Hct 43.8 (42-52) % MCV 92.0 (80-100) fL MCH 28.6 (25-34) pg MCHC 31.1 L (32-36) g/dL RDW Std Deviation 53.4 H (36.4-46.3) fL RDW Coeff of Shadi 15.9 H (11.5-14.5) % Plt Count 232 (130-400) K/uL MPV 9.5 (7.4-10.4) fL Sodium (136-145) mmol/L Potassium (3.5-5.1) mmol/L Chloride (98-107) mmol/L Carbon Dioxide (21-32) mmol/L Anion Gap (3-11) BUN (7-18) mg/dl Creatinine (0.6-1.4) mg/dl Est Cr Clr Drug Dosing ml/min Est GFR ( Amer) Est GFR (Non-Af Amer) BUN/Creatinine Ratio (10-20) Glucose (70-99) mg/dl POC Glucose 119 H 97 (70-99) mg/dl Calcium (8.5-10.1) mg/dl 02/17/20 02/17/20 Range/Units 12:09 07:47 WBC (4.8-10.8) K/uL RBC (4.7-6.1) M/uL Hgb (14.0-18.0) g/dL Hct (42-52) % MCV (80-100) fL MCH (25-34) pg MCHC (32-36) g/dL RDW Std Deviation (36.4-46.3) fL RDW Coeff of Shadi (11.5-14.5) % Plt Count (130-400) K/uL MPV (7.4-10.4) fL Sodium (136-145) mmol/L Potassium (3.5-5.1) mmol/L Chloride (98-107) mmol/L Carbon Dioxide (21-32) mmol/L Anion Gap (3-11) BUN (7-18) mg/dl Creatinine (0.6-1.4) mg/dl Est Cr Clr Drug Dosing ml/min Est GFR ( Amer) Est GFR (Non-Af Amer) BUN/Creatinine Ratio (10-20) Glucose (70-99) mg/dl POC Glucose 114 H 94 (70-99) mg/dl Calcium (8.5-10.1) mg/dl Medications Administered Current Inpatient Medications Acetaminophen (Acetaminophen 325 Mg Tab) 650 mg PO Q4H PRN PRN Reason: Pain or Fever Stop: 03/14/20 20:06 Last Admin: 02/18/20 00:53 Dose: 650 mg Documented by: Aspirin (Aspirin 81 Mg Ectab) 81 mg PO DAILY [facility] Stop: 03/15/20 08:59 Last Admin: 02/17/20 07:59 Dose: 81 mg Documented by: Dextrose (Dextrose 50% 50 Ml Syringe) 25 - 50 ml IV UD PRN; Protocol PRN Reason: Hypoglycemia Protocol Stop: 03/14/20 19:53 Ferrous Sulfate (Ferrous Sulfate 325 Mg Tab) 325 mg PO BID [facility] Stop: 03/14/20 20:59 Last Admin: 02/17/20 20:14 Dose: 325 mg Documented by: Finasteride (Finasteride 5 Mg Tab) 5 mg PO DAILY [facility] Stop: 03/15/20 08:59 Last Admin: 02/17/20 08:00 Dose: 5 mg Documented by: Glucagon (Glucagon For Inj 1 Mg Vial) 1 mg SQ UD PRN; Protocol PRN Reason: Hypoglycemia Protocol Stop: 03/14/20 19:53 Glucose (Glucose 10 Tabs/Tube) 4 - 8 tabs PO UD PRN; Protocol PRN Reason: Hypoglycemia Protocol Stop: 03/14/20 19:53 Glucose (Glucose 40% Gel 15 Gm Tube) 15 - 30 gm PO UD PRN; Protocol PRN Reason: Hypoglycemia Protocol Stop: 03/14/20 19:53 Hydromorphone HCl (Hydromorphone Inj 0.5 Mg/0.5 Ml Syr) 0.5 mg IV Q4H PRN PRN Reason: Pain Stop: 03/03/20 01:14 Daptomycin 425 mg/ Syringe 8.5 mls @ 4.25 mls/min IV Q24H [facility]; Protocol Stop: 02/21/20 16:59 Last Admin: 02/17/20 17:28 Dose: 4.25 mls/min Documented by: Heparin Sodium (Porcine) 7,500 (units/ Syringe) 0.75 mls @ 0 mls/sec SQ Q8 [facility] Stop: 03/14/20 21:59 Last Admin: 02/18/20 06:35 Dose: 0.75 mls/sec Documented by: Cefepime HCl 2,000 mg/ Syringe 20 mls @ 5.5 mls/min IV Q8H [facility]; Protocol Stop: 02/24/20 11:59 Last Admin: 02/18/20 04:31 Dose: 5.5 mls/min Documented by: Insulin Aspart (Insulin Aspart 100 Units/Ml 3 Ml Pen) 0 units SC ACHS [facility] Stop: 03/14/20 20:59 Last Admin: 02/17/20 21:05 Dose: Not Given Documented by: Insulin Glargine (Insulin Glargine Solostar 100 Units/Ml 3 Ml Pen) 15 units SC BID [facility] Stop: 03/14/20 20:59 Last Admin: 02/17/20 21:05 Dose: 15 units Documented by: Levetiracetam (Levetiracetam 500 Mg Tab) 500 mg PO BID [facility] Stop: 03/14/20 20:59 Last Admin: 02/17/20 20:15 Dose: 500 mg Documented by: Melatonin (Melatonin 3 Mg Tab) 3 mg PO HS [facility] Stop: 03/15/20 20:59 Last Admin: 02/17/20 22:25 Dose: 3 mg Documented by: Metoprolol Succinate (Metoprolol Succ 50mg Ext Rel Tab) 200 mg PO DAILY [facility] Stop: 03/15/20 08:59 Last Admin: 02/17/20 08:00 Dose: 200 mg Documented by: Miscellaneous (Carbohydrates For Hypoglycemia ) 15 - 30 gm PO UD PRN PRN Reason: Hypoglycemia Protocol Stop: 03/14/20 19:53 Miscellaneous Information (Daptomycin Consult Active) 1 ea N/A UD [facility] Stop: 03/14/20 20:22 Miscellaneous Information (Cefepime Consult Active) 1 ea N/A UD PRN PRN Reason: Consult Stop: 03/16/20 14:50 Oxycodone HCl (Oxycodone Hcl Ir 5 Mg Tab (Immediate Release)) 5 - 10 mg PO Q4H PRN PRN Reason: Pain Stop: 03/03/20 01:14 Last Admin: 02/18/20 02:56 Dose: 5 mg Documented by: Pantoprazole Sodium (Pantoprazole 40 Mg Tab) 40 mg PO BID [facility] Stop: 03/14/20 20:59 Last Admin: 02/17/20 20:13 Dose: 40 mg Documented by: Potassium Chloride (Potassium Chloride 10 Meq Tabcr) 10 meq PO DAILY [facility] Stop: 03/15/20 08:59 Last Admin: 02/17/20 07:59 Dose: 10 meq Documented by: Torsemide (Torsemide 10 Mg Tab) 40 mg PO BID17 [facility] Stop: 03/18/20 16:59 Last Admin: 02/17/20 17:28 Dose: 40 mg Documented by:
[2020-02-18] MEDS: POTASSIUM CHLORIDE 10 MEQ TABCR PO SCH (08:25)
[2020-02-18] MEDS: FERROUS SULFATE 325 MG TAB PO SCH ×2 (08:25→21:20)
[2020-02-18] MEDS: TORSEMIDE 10 MG TAB PO SCH ×2 (08:26→16:35)
[2020-02-18] MEDS: FINASTERIDE 5 MG TAB PO SCH (08:26)
[2020-02-18] MEDS: METOPROLOL SUCC 50MG EXT REL TAB PO SCH (08:26)
[2020-02-18] MEDS: levETIRAcetam 500 MG TAB PO SCH ×2 (08:27→21:20)
[2020-02-18] MEDS: ASPIRIN 81 MG ECTAB PO SCH (08:27)
[2020-02-18] MEDS: PANTOprazole 40 MG TAB PO SCH ×2 (08:27→21:20)
[2020-02-18] MEDS: INSULIN GLARGINE SOLOSTAR 100 UNITS/ML 3 ML PEN SC SCH ×2 (08:27→21:20)
[2020-02-18] MEDS: INSULIN ASPART 100 UNITS/ML 3 ML PEN SC SCH ×4 (08:28→21:20)
--- NOTE | 2020-02-18 12:33 | Cardiology Progress Note ---
Date of Service February 18, 2020 Assessment & Plan (1) Generalized weakness: (2) Acute diastolic heart failure: Preserved to hyperdynamic LV function present (3) Atrial fibrillation with rapid ventricular response: Patient admitted with generalized weakness, progressive x 2 weeks according to 's report on admission. He denies these issues. Urinary and blood cultures pending. He has a long history of urinary sepsis likely contributing to his symptoms. His heart rates have trended down since admission. Continue home dose metoprolol. 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 Mild diastolic heart failure right greater than left present responding to diuretics. Patient on appropriate dose CHF indicated beta-john Hyperkalemia an issue as an outpatient. With contraindications to MAURILIO or ARB, spironolactone Continues to manifest diuresis. Would continue increased dose to oral torsemide 40 mg twice per Admission and Anticipated Discharge Date Admission Date: February 13, 2020 Subjective Patient seen and examined, chart, medications reviewed. No cardiac complaints. Continues to manifest slow diuresis with change to oral diuretics Physical Exam Constitutional: WD/WN, vitals as above + morbidly obese Eyes: PERRL, conjunctivae normal, anicteric sclerae ENMT: external ear and nose normal, oropharynx normal Neck: trachea midline, no thyromegaly + thick neck Respiratory: Auscultation: + diminished lung sounds Cardiovascular: Rate/Rhythm: + irregularly irregular Heart Sounds: normal S1, normal S2 and + murmur (Grade 2/6 systolic); no gallop Palpation: normal PMI Vessels: normal carotid upstroke and radial pulses present; no JVD and no carotid bruit Extremities: + edema (Chronic 1-2+ with stasis changes mildly improved) Gastrointestinal (Abdomen): normal bowel sounds, soft, nontender, no hepatosplenomegaly Musculoskeletal: no cyanosis or clubbing, extremities motor strength 5/5 Skin: no rashes, warm and dry Trauma: + evidence of skin trauma Neurologic: PERRL, EOMI, accommodation nl, no face palsy, no dysarthria Psychiatric: A+Ox3, euthymic affect Results & Data ([facility]) Vital Signs (Past 12 Hours) Vital Signs Temp Pulse Resp BP Pulse Ox 02/18/20 11:30 36.5 C 79 16 119/66 90 02/18/20 07:18 36.7 C 87 16 152/91 H 87 L 02/18/20 03:13 36.6 C 78 19 102/63 91 Laboratory Results Laboratory Results - last 24 hr 02/17/20 02/17/20 02/18/20 16:55 20:50 06:26 WBC 8.48 RBC 4.76 Hgb 13.6 L Hct 43.8 MCV 92.0 MCH 28.6 MCHC 31.1 L RDW Std Deviation 53.4 H RDW Coeff of Shadi 15.9 H Plt Count 232 MPV 9.5 Sodium Potassium Chloride Carbon Dioxide Anion Gap BUN Creatinine Est Cr Clr Drug Dosing Est GFR ( Amer) Est GFR (Non-Af Amer) BUN/Creatinine Ratio Glucose POC Glucose 97 119 H Calcium 02/18/20 02/18/20 02/18/20 06:26 07:24 07:30 WBC RBC Hgb Hct MCV MCH MCHC RDW Std Deviation RDW Coeff of Shadi Plt Count MPV Sodium 137 Potassium Chloride 104 Carbon Dioxide 29 Anion Gap 4.0 BUN 31 H Creatinine 1.52 H Est Cr Clr Drug Dosing 59.4 Est GFR ( Amer) 49.8 Est GFR (Non-Af Amer) 43.0 BUN/Creatinine Ratio 20.4 H Glucose 82 POC Glucose 95 Calcium 8.4 L 02/18/20 02/18/20 07:30 11:29 WBC RBC Hgb Hct MCV MCH MCHC RDW Std Deviation RDW Coeff of Shadi Plt Count MPV Sodium Potassium 4.0 Chloride Carbon Dioxide Anion Gap BUN Creatinine Est Cr Clr Drug Dosing Est GFR ( Amer) Est GFR (Non-Af Amer) BUN/Creatinine Ratio Glucose POC Glucose 95 Calcium
[2020-02-18] MEDS: DAPTOmycin 425 MG in SYRINGE 0 ML IV SCH (16:34)
[2020-02-18] MEDS: MELATONIN 3 MG TAB PO SCH (21:27)
[2020-02-19] MEDS: OXYCODONE HCL IR 5 MG TAB (IMMEDIATE RELEASE) PO PRN ×5 (00:48→21:59)
[2020-02-19] MEDS: CEFEPIME 2,000 MG in SYRINGE 7.5 ML IV SCH ×3 (05:16→21:02)
[2020-02-19] MEDS: HEPARIN SOD 5,000 UNIT/0.5 ML VIAL SQ SCH ×3 (06:15→22:00)
[2020-02-19 07:08] LABS: BUN Creatinine Ratio 21.6 (10-20); Creatinine Clr Calc Pharmacy 61.1 ml/min; Est GFR (African American) 52.7; Est GFR (Non-African American) 45.5; Potassium 3.7 mmol/L (3.5-5.1)
[2020-02-19] MEDS: METOPROLOL SUCC 50MG EXT REL TAB PO SCH (08:34)
[2020-02-19] MEDS: FINASTERIDE 5 MG TAB PO SCH (08:34)
[2020-02-19] MEDS: levETIRAcetam 500 MG TAB PO SCH ×2 (08:34→20:55)
[2020-02-19] MEDS: POTASSIUM CHLORIDE 10 MEQ TABCR PO SCH (08:35)
[2020-02-19] MEDS: PANTOprazole 40 MG TAB PO SCH ×2 (08:35→20:55)
[2020-02-19] MEDS: TORSEMIDE 10 MG TAB PO SCH ×2 (08:35→20:55)
[2020-02-19] MEDS: ASPIRIN 81 MG ECTAB PO SCH (08:35)
[2020-02-19] MEDS: FERROUS SULFATE 325 MG TAB PO SCH ×2 (08:36→20:56)
[2020-02-19] MEDS: INSULIN GLARGINE SOLOSTAR 100 UNITS/ML 3 ML PEN SC SCH ×2 (08:38→20:56)
[2020-02-19] MEDS: INSULIN ASPART 100 UNITS/ML 3 ML PEN SC SCH ×4 (08:41→20:54)
--- NOTE | 2020-02-19 11:47 | Hospitalist Progress Note ---
Date of Service February 19, 2020 Assessment & Plan (1) Generalized weakness: Likely multifactorial related to many comorbid conditions including morbid obesity, diabetes with neuropathy, atrial fibrillation with chronic diastolic heart failure, obstructive sleep apnea with hypoxemia. Baseline ambulation is with a walker. Ongoing PT/OT and will likely need rehab placement on discharge (2) Catheter-associated urinary tract infection: TI associated with chronic Patiño catheter -Urine culture growing Pseudomonas aeruginosa, continued cefepime which was started on admission (02/12), plan to finish Abx course before dc to SNF -Blood cultures have been negative -Discussed with Dr. Machuca from urology (02/17), he does not believe the pt needs to exchange Patiño catheter at this time. Patient usually gets his catheter exchanged every 6 weeks in [facility]. Last exchange was done 2 weeks ago. Per urology, continue his regular scheduled appointments. -No more signs or symptoms of infection -We will continue current antibiotic (3) Acute diastolic CHF (congestive heart failure): Typically on torsemide which he reports he has been taking. Reports 5lb weight gain in last week. BNP elevated>6K. Hypoxia likely 2/2 pulmonary vascular congestion He was given 40mg IV in the ER and continued for some time Echo did show hyperdynamic LV function, moderate aortic sclerosis without significant stenosis and severe left atrial enlargement. Appreciate cardiology input and recommendation Has been on oral torsemide as per [facility], 40 mg twice daily Remains stable clinically (4) Hypoxia: Acute hypoxic respiratory failure Patient is now on room air, 2 step study obtained, patient does not require any supplemental oxygen. 2/2 CHF and infectious ideology. Has been saturating well with room air (5) Acute kidney injury: Avoid overdiuresis. Monitor BMP daily Creatinine remains stable at 1.45 (6) Leg wound, left: Does not appear infected. Wound care consulted for the pannus area, and scrotal area. 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 Broad spectrum abx -Dapto and Cefepime-renally dosed Blood cultures have been negative We will continue current antibiotic until being discharged (8) Abdominal wall cellulitis: abx as above, cellulitis is a potential reason for his increased weakness. (9) Genital hemangioma: Chronic pain from this issue which also prevents him from receiving full dose anticoagulation in afib. He is receiving daily aspirin and also DVT prophylaxis with heparin. Monitor for bleeding. Appreciate wound care provider input and recommendation (10) Seizures: h/o epilepsy. No recent seizures. Cont Keppra per home regimen. (11) Cirrhosis: No ascites on imaging. Nontender protuberant abdomen. Mentating clearly. Appears compensated. (12) Chronic pain: Uses hydrocodone at home but was having severe pain, improved with dilaudid in the ER. (13) Atrial fibrillation: chronic, rate in 90s on admission. Cont metoprolol succinate. Cont ASA. 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 (14) BPH w urinary obs/LUTS: Cont finasteride per home regimen. Chronic patiño in place. (15) Obstructive sleep apnea: Cannot tolerate CPAP. (16) Diabetes mellitus with diabetic polyneuropathy: Hold Januvia, metformin per home regimen. Basal bolus insulin while hospitalized. Current A1C 6.4%. (17) Obesity: Lifestyle modifications recommended. (18) DVT prophylaxis: Heparin Full Code as verified with patient on admission Dispo-to telemetry Awaiting placement to SNF Admission and Anticipated Discharge Date Admission Date: February 13, 2020 Subjective 02/19/2020 The patient was seen and examined in medical telemetry unit He remains stable and denies any acute distress Besides general weakness and ongoing issues with his lower abdomen and scrotal areas denies any other symptoms No fever and/or chills, no abdominal pain, nausea and/or vomiting Review of Systems Review of Systems: All systems reviewed and are unremarkable except as noted below Constitutional: + fatigue and + weakness Neurologic: + generalized weakness Physical Exam Physical Exam: Lying in bed comfortably Constitutional: + morbidly obese; no acute distress and not ill appearing Eyes: PERRL, conjunctivae normal, anicteric sclerae ENMT: external ear and nose normal, oropharynx normal Neck: trachea midline, no thyromegaly Respiratory: normal respiratory effort; no respiratory distress Auscultation: + diminished lung sounds Cardiovascular: Rate/Rhythm: + abnormal rate and + abnormal rhythm Heart Sounds: + murmur (2/6 ESM over precordium) Gastrointestinal (Abdomen): Inspection/Auscultation: + abdomen distended and normal bowel sounds Abdominal pannus hanging over pubic area and covering the genitalia. Musculoskeletal: No acute arthritis involving any joint Skin: Chronic ischemic changes with dusky discoloration involving both lower extremities. Neurologic: moves all extremities; no focal motor deficits Genitourinary: Has scrotal swelling, ulceration and bleeding secondary to vascular malformation. Has permanent indwelling Patiño catheter Results & Data Results & Data ([facility]) Vital Signs (Past 12 Hours) Vital Signs Temp Pulse Pulse Resp BP Pulse Ox 02/19/20 07:24 94 H 02/19/20 07:12 36.8 C 92 H 20 91/51 L 90 02/19/20 03:00 36.5 C 86 18 97/63 L 92 02/19/20 00:00 88 Laboratory Results BMP 02/19/20 05:57 Sodium 135 L Potassium 3.7 Chloride 101 Carbon Dioxide 28 BUN 31 H Creatinine 1.45 H Glucose 99 Calcium 9.0 Medications Administered Current Inpatient Medications Acetaminophen (Acetaminophen 325 Mg Tab) 650 mg PO Q4H PRN PRN Reason: Pain or Fever Stop: 03/14/20 20:06 Last Admin: 02/18/20 23:49 Dose: 650 mg Documented by: Aspirin (Aspirin 81 Mg Ectab) 81 mg PO DAILY MARIYA Stop: 03/15/20 08:59 Last Admin: 02/19/20 08:35 Dose: 81 mg Documented by: Dextrose (Dextrose 50% 50 Ml Syringe) 25 - 50 ml IV UD PRN; Protocol PRN Reason: Hypoglycemia Protocol Stop: 03/14/20 19:53 Ferrous Sulfate (Ferrous Sulfate 325 Mg Tab) 325 mg PO BID MARIYA Stop: 03/14/20 20:59 Last Admin: 02/19/20 08:36 Dose: 325 mg Documented by: Finasteride (Finasteride 5 Mg Tab) 5 mg PO DAILY MARIYA Stop: 03/15/20 08:59 Last Admin: 02/19/20 08:34 Dose: 5 mg Documented by: Glucagon (Glucagon For Inj 1 Mg Vial) 1 mg SQ UD PRN; Protocol PRN Reason: Hypoglycemia Protocol Stop: 03/14/20 19:53 Glucose (Glucose 10 Tabs/Tube) 4 - 8 tabs PO UD PRN; Protocol PRN Reason: Hypoglycemia Protocol Stop: 03/14/20 19:53 Glucose (Glucose 40% Gel 15 Gm Tube) 15 - 30 gm PO UD PRN; Protocol PRN Reason: Hypoglycemia Protocol Stop: 03/14/20 19:53 Heparin Sodium (Porcine) (Heparin Sod 5,000 Unit/0.5 Ml Vial) 7,500 units SQ Q8 MARIYA Stop: 03/20/20 05:59 Last Admin: 02/19/20 06:15 Dose: 7,500 units Documented by: Hydromorphone HCl (Hydromorphone Inj 0.5 Mg/0.5 Ml Syr) 0.5 mg IV Q4H PRN PRN Reason: Pain Stop: 03/03/20 01:14 Daptomycin 425 mg/ Syringe 8.5 mls @ 4.25 mls/min IV Q24H [facility]; Protocol Stop: 02/21/20 16:59 Last Admin: 02/18/20 16:34 Dose: 4.25 mls/min Documented by: Cefepime HCl 2,000 mg/ Syringe 20 mls @ 5.5 mls/min IV Q8H [facility]; Protocol Stop: 02/24/20 11:59 Last Admin: 02/19/20 05:16 Dose: 5.5 mls/min Documented by: Insulin Aspart (Insulin Aspart 100 Units/Ml 3 Ml Pen) 0 units SC ACHS MARIYA Stop: 03/14/20 20:59 Last Admin: 02/19/20 08:41 Dose: 12 units Documented by: Insulin Glargine (Insulin Glargine Solostar 100 Units/Ml 3 Ml Pen) 15 units SC BID [facility] Stop: 03/14/20 20:59 Last Admin: 02/19/20 08:38 Dose: 15 units Documented by: Levetiracetam (Levetiracetam 500 Mg Tab) 500 mg PO BID MARIYA Stop: 03/14/20 20:59 Last Admin: 02/19/20 08:34 Dose: 500 mg Documented by: Melatonin (Melatonin 3 Mg Tab) 3 mg PO HS [facility] Stop: 03/15/20 20:59 Last Admin: 02/18/20 21:27 Dose: 3 mg Documented by: Metoprolol Succinate (Metoprolol Succ 50mg Ext Rel Tab) 200 mg PO DAILY MARIYA Stop: 03/15/20 08:59 Last Admin: 02/19/20 08:34 Dose: 200 mg Documented by: Miscellaneous (Carbohydrates For Hypoglycemia ) 15 - 30 gm PO UD PRN PRN Reason: Hypoglycemia Protocol Stop: 03/14/20 19:53 Miscellaneous Information (Daptomycin Consult Active) 1 ea N/A UD MARIYA Stop: 03/14/20 20:22 Miscellaneous Information (Cefepime Consult Active) 1 ea N/A UD PRN PRN Reason: Consult Stop: 03/16/20 14:50 Oxycodone HCl (Oxycodone Hcl Ir 5 Mg Tab (Immediate Release)) 5 - 10 mg PO Q4H PRN PRN Reason: Pain Stop: 03/03/20 01:14 Last Admin: 02/19/20 05:16 Dose: 10 mg Documented by: Pantoprazole Sodium (Pantoprazole 40 Mg Tab) 40 mg PO BID MARIYA Stop: 03/14/20 20:59 Last Admin: 02/19/20 08:35 Dose: 40 mg Documented by: Potassium Chloride (Potassium Chloride 10 Meq Tabcr) 10 meq PO DAILY MARIYA Stop: 03/15/20 08:59 Last Admin: 02/19/20 08:35 Dose: 10 meq Documented by: Torsemide (Torsemide 10 Mg Tab) 40 mg PO BID17 MARIYA Stop: 03/18/20 16:59 Last Admin: 02/19/20 08:35 Dose: 40 mg Documented by: (1) Catheter-associated urinary tract infection Encounter type: initial encounter Indwelling urinary catheter type: indwelling urethral catheter Qualified Code(s): T83.511A - Infection and inflammatory reaction due to indwelling urethral catheter, initial encounter; N39.0 - Urinary tract infection, site not specified
--- NOTE | 2020-02-19 12:05 | Cardiology Progress Note ---
Date of Service February 19, 2020 Assessment & Plan (1) Generalized weakness: (2) Acute diastolic heart failure: Preserved to hyperdynamic LV function present (3) Atrial fibrillation with rapid ventricular response: Patient admitted with generalized weakness, progressive x 2 weeks according to 's report on admission. He denies these issues. Urinary and blood cultures pending. He has a long history of urinary sepsis likely contributing to his symptoms. His heart rates have trended down since admission. Continue home dose metoprolol. 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 Heart rates controlled currently Mild diastolic heart failure right greater than left present responding to diuretics. Patient on appropriate dose CHF indicated beta-john Hyperkalemia an issue as an outpatient. With contraindications to MAURILIO or ARB, spironolactone Continues to manifest diuresis. Will reduce torsemide to 40 mg a.m. 20 mg p.m. with possibility of ultimately going to 40 mg daily with a as needed dose of 20 mg 2 days per week as per prior regimen Admission and Anticipated Discharge Date Admission Date: February 13, 2020 Subjective Patient seen and examined, chart, medications, telemetry reviewed. No acute complaints this morning. Continues to manifest diuresis on oral diuretic Telemetry continues to demonstrate atrial fibrillation 80s and 90s with general good control no bradycardia arrhythmia No fevers or chills, working with physical therapy this morning Physical Exam Constitutional: WD/WN, vitals as above + morbidly obese Eyes: PERRL, conjunctivae normal, anicteric sclerae ENMT: external ear and nose normal, oropharynx normal Neck: trachea midline, no thyromegaly + thick neck Respiratory: Auscultation: + diminished lung sounds Cardiovascular: Rate/Rhythm: + irregularly irregular Heart Sounds: normal S1, normal S2 and + murmur (Grade 2/6 systolic); no gallop Palpation: normal PMI Vessels: normal carotid upstroke and radial pulses present; no JVD and no carotid bruit Extremities: + edema (Chronic 1-2+ with stasis changes mildly improved) Gastrointestinal (Abdomen): normal bowel sounds, soft, nontender, no hepatosplenomegaly Musculoskeletal: no cyanosis or clubbing, extremities motor strength 5/5 Skin: no rashes, warm and dry Trauma: + evidence of skin trauma Neurologic: PERRL, EOMI, accommodation nl, no face palsy, no dysarthria Psychiatric: A+Ox3, euthymic affect Results & Data ([facility]) Vital Signs (Past 12 Hours) Vital Signs Temp Pulse Pulse Resp BP Pulse Ox 02/19/20 11:56 36.2 C L 58 L 20 107/64 91 02/19/20 07:24 94 H 02/19/20 07:12 36.8 C 92 H 20 91/51 L 90 02/19/20 03:00 36.5 C 86 18 97/63 L 92 Laboratory Results Laboratory Results - last 24 hr 02/18/20 02/18/20 02/18/20 16:19 16:45 16:45 Sodium Potassium Chloride Carbon Dioxide Anion Gap BUN Creatinine Est Cr Clr Drug Dosing Est GFR ( Amer) Est GFR (Non-Af Amer) BUN/Creatinine Ratio Glucose POC Glucose 102 H Calcium COVID-19 Eval Order Covid19 [facility] SARS-CoV-2, RNA, NAAT NEGATIVE 02/18/20 02/19/20 02/19/20 20:39 05:57 07:21 Sodium 135 L Potassium 3.7 Chloride 101 Carbon Dioxide 28 Anion Gap 7.0 BUN 31 H Creatinine 1.45 H Est Cr Clr Drug Dosing 61.1 Est GFR ( Amer) 52.7 Est GFR (Non-Af Amer) 45.5 BUN/Creatinine Ratio 21.6 H Glucose 99 POC Glucose 141 H 114 H Calcium 9.0 COVID-19 Eval Order SARS-CoV-2, RNA, NAAT 02/19/20 11:33 Sodium Potassium Chloride Carbon Dioxide Anion Gap BUN Creatinine Est Cr Clr Drug Dosing Est GFR ( Amer) Est GFR (Non-Af Amer) BUN/Creatinine Ratio Glucose POC Glucose 103 H Calcium COVID-19 Eval Order SARS-CoV-2, RNA, NAAT
[2020-02-19] MEDS: DAPTOmycin 425 MG in SYRINGE 0 ML IV SCH (17:19)
[2020-02-19] MEDS: MELATONIN 3 MG TAB PO SCH (21:59)
[2020-02-20] MEDS: CEFEPIME 2,000 MG in SYRINGE 7.5 ML IV SCH ×2 (03:22→14:21)
[2020-02-20] MEDS: OXYCODONE HCL IR 5 MG TAB (IMMEDIATE RELEASE) PO PRN ×3 (03:26→20:46)
[2020-02-20] MEDS: HEPARIN SOD 5,000 UNIT/0.5 ML VIAL SQ SCH ×3 (05:59→20:40)
[2020-02-20 07:56] LABS: BUN Creatinine Ratio 21.9 (10-20); Calcium 9.1 mg/dl (8.5-10.1); Creatinine Clr Calc Pharmacy 55.8 ml/min; Est GFR (African American) 47.2; Est GFR (Non-African American) 40.7; Potassium 3.8 mmol/L (3.5-5.1)
[2020-02-20] MEDS: INSULIN ASPART 100 UNITS/ML 3 ML PEN SC SCH ×4 (08:46→20:43)
[2020-02-20] MEDS: INSULIN GLARGINE SOLOSTAR 100 UNITS/ML 3 ML PEN SC SCH ×2 (08:48→20:43)
[2020-02-20] MEDS: TORSEMIDE 10 MG TAB PO SCH ×2 (08:51→20:40)
[2020-02-20] MEDS: levETIRAcetam 500 MG TAB PO SCH ×2 (08:53→20:40)
[2020-02-20] MEDS: FINASTERIDE 5 MG TAB PO SCH (08:53)
[2020-02-20] MEDS: METOPROLOL SUCC 50MG EXT REL TAB PO SCH (08:53)
[2020-02-20] MEDS: FERROUS SULFATE 325 MG TAB PO SCH ×2 (08:53→20:40)
[2020-02-20] MEDS: PANTOprazole 40 MG TAB PO SCH ×2 (08:53→20:39)
[2020-02-20] MEDS: POTASSIUM CHLORIDE 10 MEQ TABCR PO SCH (08:54)
[2020-02-20] MEDS: ASPIRIN 81 MG ECTAB PO SCH (08:54)
--- NOTE | 2020-02-20 11:11 | Cardiology Progress Note ---
Date of Service February 20, 2020 Assessment & Plan (1) Generalized weakness: (2) Acute diastolic heart failure: Preserved to hyperdynamic LV function present (3) Atrial fibrillation with rapid ventricular response: Patient admitted with generalized weakness, progressive x 2 weeks according to 's report on admission. He denies these issues. Urinary and blood cultures pending. He has a long history of urinary sepsis likely contributing to his symptoms. His heart rates have trended down since admission. Continue home dose metoprolol. 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 Heart rates controlled currently Mild diastolic heart failure right greater than left present responding to diuretics. Patient on appropriate dose CHF indicated beta-john Hyperkalemia an issue as an outpatient. With contraindications to MAURILIO or ARB, spironolactone Continues to manifest diuresis. Will reduce torsemide to 40 mg a.m. 20 mg p.m. with possibility of ultimately going to 40 mg daily with an as needed dose of 20 mg 2 days per week as per prior regimen Exam suggest patient approaching dry weight Admission and Anticipated Discharge Date Admission Date: February 13, 2020 Subjective Patient seen and examined, chart, medications, telemetry reviewed. No acute cardiac complaints this morning. Still with diuresis on oral regimen Physical Exam Constitutional: WD/WN, vitals as above + morbidly obese Eyes: PERRL, conjunctivae normal, anicteric sclerae ENMT: external ear and nose normal, oropharynx normal Neck: trachea midline, no thyromegaly + thick neck Respiratory: Auscultation: + diminished lung sounds Cardiovascular: Rate/Rhythm: + irregularly irregular Heart Sounds: normal S1, normal S2 and + murmur (Grade 2/6 systolic); no gallop Palpation: normal PMI Vessels: normal carotid upstroke and radial pulses present; no JVD and no carotid bruit Extremities: + edema (Chronic 1-2+ with stasis changes mildly improved) Gastrointestinal (Abdomen): normal bowel sounds, soft, nontender, no hepatosplenomegaly Musculoskeletal: no cyanosis or clubbing, extremities motor strength 5/5 Skin: no rashes, warm and dry Trauma: + evidence of skin trauma Neurologic: PERRL, EOMI, accommodation nl, no face palsy, no dysarthria Psychiatric: A+Ox3, euthymic affect Results & Data ([facility]) Vital Signs (Past 12 Hours) Vital Signs Temp Pulse Resp BP Pulse Ox 02/20/20 08:30 112/62 02/20/20 06:27 36.9 C 96 H 20 98/63 L 91 02/20/20 03:29 36.4 C L 91 H 20 124/81 92 Laboratory Results Laboratory Results - last 24 hr 02/19/20 02/19/20 02/19/20 11:33 16:33 19:41 Sodium Potassium Chloride Carbon Dioxide Anion Gap BUN Creatinine Est Cr Clr Drug Dosing Est GFR ( Amer) Est GFR (Non-Af Amer) BUN/Creatinine Ratio Glucose POC Glucose 103 H 97 97 Calcium 02/20/20 02/20/20 07:00 07:32 Sodium 137 Potassium 3.8 Chloride 101 Carbon Dioxide 30 Anion Gap 7.0 BUN 35 H Creatinine 1.59 H Est Cr Clr Drug Dosing 55.8 Est GFR ( Amer) 47.2 Est GFR (Non-Af Amer) 40.7 BUN/Creatinine Ratio 21.9 H Glucose 95 POC Glucose 91 Calcium 9.1
[2020-02-20] MEDS: DAPTOmycin 425 MG in SYRINGE 0 ML IV SCH (16:14)
[2020-02-20] MEDS ORDERED: MICONAZOLE NITRATE POWDER 43 GM EXT PRN (18:53)
[2020-02-20] MEDS: MELATONIN 3 MG TAB PO SCH (20:46)
[2020-02-21] MEDS: CEFEPIME 2,000 MG in SYRINGE 7.5 ML IV SCH ×2 (01:43→15:39)
[2020-02-21] MEDS: HEPARIN SOD 5,000 UNIT/0.5 ML VIAL SQ SCH ×2 (05:54→15:39)
[2020-02-21] MEDS: INSULIN ASPART 100 UNITS/ML 3 ML PEN SC SCH ×2 (08:42→12:38)
[2020-02-21] MEDS: PANTOprazole 40 MG TAB PO SCH (08:42)
[2020-02-21] MEDS: levETIRAcetam 500 MG TAB PO SCH (08:43)
[2020-02-21] MEDS: FERROUS SULFATE 325 MG TAB PO SCH (08:43)
[2020-02-21] MEDS: FINASTERIDE 5 MG TAB PO SCH (08:43)
[2020-02-21] MEDS: METOPROLOL SUCC 50MG EXT REL TAB PO SCH ×2 (08:43→08:49)
[2020-02-21] MEDS: POTASSIUM CHLORIDE 10 MEQ TABCR PO SCH (08:43)
[2020-02-21] MEDS: TORSEMIDE 10 MG TAB PO SCH (08:43)
[2020-02-21] MEDS: ASPIRIN 81 MG ECTAB PO SCH (08:43)
[2020-02-21] MEDS: INSULIN GLARGINE SOLOSTAR 100 UNITS/ML 3 ML PEN SC SCH (08:44)
[2020-02-21 09:20] LABS: BUN Creatinine Ratio 19.4 (10-20); Calcium 9.4 mg/dl (8.5-10.1); Creatinine Clr Calc Pharmacy 46.7 ml/min; Est GFR (African American) 38.8; Est GFR (Non-African American) 33.4; Potassium 3.9 mmol/L (3.5-5.1)
--- NOTE | 2020-02-21 12:01 | Cardiology Progress Note ---
Date of Service February 21, 2020 Assessment & Plan (1) Generalized weakness: (2) Acute diastolic heart failure: Preserved to hyperdynamic LV function present (3) Atrial fibrillation with rapid ventricular response: Patient admitted with generalized weakness, progressive x 2 weeks according to 's report on admission. He denies these issues. Urinary and blood cultures pending. He has a long history of urinary sepsis likely contributing to his symptoms. His heart rates have trended down since admission. Continue home dose metoprolol. 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 Heart rates controlled currently Mild diastolic heart failure right greater than left present responding to diuretics. Patient on appropriate dose CHF indicated beta-john Hyperkalemia an issue as an outpatient. With contraindications to MAURILIO or ARB, spironolactone Continues to manifest diuresis. Will reduce torsemide back to 40 mg/day no other adjustments will sign off at this time Admission and Anticipated Discharge Date Admission Date: February 13, 2020 Subjective Patient seen and examined, chart, medications, telemetry reviewed. No acute cardiac complaints this morning. Still with diuresis on oral regimen Physical Exam Constitutional: WD/WN, vitals as above + morbidly obese Eyes: PERRL, conjunctivae normal, anicteric sclerae ENMT: external ear and nose normal, oropharynx normal Neck: trachea midline, no thyromegaly + thick neck Respiratory: Auscultation: + diminished lung sounds Cardiovascular: Rate/Rhythm: + irregularly irregular Heart Sounds: normal S1, normal S2 and + murmur (Grade 2/6 systolic); no gallop Palpation: normal PMI Vessels: normal carotid upstroke and radial pulses present; no JVD and no carotid bruit Extremities: + edema (Chronic 1-2+ with stasis changes mildly improved) Gastrointestinal (Abdomen): normal bowel sounds, soft, nontender, no hepatosplenomegaly Musculoskeletal: no cyanosis or clubbing, extremities motor strength 5/5 Skin: no rashes, warm and dry Trauma: + evidence of skin trauma Neurologic: PERRL, EOMI, accommodation nl, no face palsy, no dysarthria Psychiatric: A+Ox3, euthymic affect Results & Data ([facility]) Vital Signs (Past 12 Hours) Vital Signs Temp Pulse Pulse Resp BP Pulse Ox 02/21/20 07:33 93 H 02/21/20 07:03 36.4 C L 92 H 16 103/63 98 02/21/20 03:38 36.4 C L 95 H 22 101/65 91 02/21/20 00:00 108 H Laboratory Results Laboratory Results - last 24 hr 02/20/20 02/20/20 02/20/20 12:04 16:49 20:23 Sodium Potassium Chloride Carbon Dioxide Anion Gap BUN Creatinine Est Cr Clr Drug Dosing Est GFR ( Amer) Est GFR (Non-Af Amer) BUN/Creatinine Ratio Glucose POC Glucose 112 H 96 98 Calcium 02/21/20 02/21/20 07:37 08:46 Sodium 136 Potassium 3.9 Chloride 99 Carbon Dioxide 28 Anion Gap 9.0 BUN 36 H Creatinine 1.87 H Est Cr Clr Drug Dosing 46.7 Est GFR ( Amer) 38.8 Est GFR (Non-Af Amer) 33.4 BUN/Creatinine Ratio 19.4 Glucose 154 H POC Glucose 108 H Calcium 9.4
--- NOTE | 2020-02-21 12:37 | Hospitalist Progress Note ---
Date of Service February 20, 2020 Assessment & Plan (1) Generalized weakness: Likely multifactorial related to many comorbid conditions including morbid obesity, diabetes with neuropathy, atrial fibrillation with chronic diastolic heart failure, obstructive sleep apnea with hypoxemia. Baseline ambulation is with a walker. Ongoing PT/OT and will likely need rehab placement on discharge He has been refusing to go to rehab (2) Catheter-associated urinary tract infection: TI associated with chronic Patiño catheter -Urine culture growing Pseudomonas aeruginosa, continued cefepime which was started on admission (02/12), plan to finish Abx course before dc to SNF -Blood cultures have been negative -Discussed with Dr. Machuca from urology (02/17), he does not believe the pt needs to exchange Patiño catheter at this time. Patient usually gets his catheter exchanged every 6 weeks in [facility]. Last exchange was done 2 weeks ago. Per urology, continue his regular scheduled appointments. -No more signs or symptoms of infection -We will continue current antibiotic until the patient is discharged (3) Acute diastolic CHF (congestive heart failure): Typically on torsemide which he reports he has been taking. Reports 5lb weight gain in last week. BNP elevated>6K. Hypoxia likely 2/2 pulmonary vascular congestion He was given 40mg IV in the ER and continued for some time Echo did show hyperdynamic LV function, moderate aortic sclerosis without significant stenosis and severe left atrial enlargement. Appreciate cardiology input and recommendation Has been on oral torsemide as per piece jobber, 40 mg twice daily Remains stable clinically (4) Hypoxia: Acute hypoxic respiratory failure Patient is now on room air, 2 step study obtained, patient does not require any supplemental oxygen. 2/2 CHF and infectious ideology. Has been saturating well with room air (5) Acute kidney injury: Avoid overdiuresis. Monitor BMP daily Creatinine remains stable at 1.45 (6) Leg wound, left: Does not appear infected. Wound care consulted for the pannus area, and scrotal area. 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 Broad spectrum abx -Dapto and Cefepime-renally dosed Blood cultures have been negative We will continue current antibiotic until being discharged Advised to avoid prolonged pressure at the wound site He is aware about the situation and status cannot do anything more than he has been doing (8) Abdominal wall cellulitis: abx as above, cellulitis is a potential reason for his increased weakness. (9) Genital hemangioma: Chronic pain from this issue which also prevents him from receiving full dose anticoagulation in afib. He is receiving daily aspirin and also DVT prophylaxis with heparin. Monitor for bleeding. Appreciate wound care provider input and recommendation (10) Seizures: h/o epilepsy. No recent seizures. Cont Keppra per home regimen. (11) Cirrhosis: No ascites on imaging. Nontender protuberant abdomen. Mentating clearly. Appears compensated. (12) Chronic pain: Uses hydrocodone at home but was having severe pain, improved with dilaudid in the ER. (13) Atrial fibrillation: chronic, rate in 90s on admission. Cont metoprolol succinate. Cont ASA. 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 (14) BPH w urinary obs/LUTS: Cont finasteride per home regimen. Chronic patiño in place. (15) Obstructive sleep apnea: Cannot tolerate CPAP. (16) Diabetes mellitus with diabetic polyneuropathy: Hold Januvia, metformin per home regimen. Basal bolus insulin while hospitalized. Current A1C 6.4%. (17) Obesity: Lifestyle modifications recommended. (18) DVT prophylaxis: Heparin Full Code as verified with patient on admission Dispo-to telemetry Awaiting placement to SNF-tomorrow Admission and Anticipated Discharge Date Admission Date: February 13, 2020 Subjective 02/19/2020 The patient was seen and examined in medical telemetry unit He remains stable and denies any acute distress Besides general weakness and ongoing issues with his lower abdomen and scrotal areas denies any other symptoms No fever and/or chills, no abdominal pain, nausea and/or vomiting 02/20/2020 The patient was seen and examined in medical telemetry unit He remains stable and has been waiting to be transferred to [facility] Review of Systems Review of Systems: All systems reviewed and are unremarkable except as noted below Constitutional: + fatigue and + weakness Neurologic: + generalized weakness Physical Exam Physical Exam: Lying in bed comfortably Constitutional: + morbidly obese; no acute distress and not ill appearing Eyes: PERRL, conjunctivae normal, anicteric sclerae ENMT: external ear and nose normal, oropharynx normal Neck: trachea midline, no thyromegaly Respiratory: normal respiratory effort; no respiratory distress Auscultation: + diminished lung sounds Cardiovascular: Rate/Rhythm: + abnormal rate and + abnormal rhythm Heart Sounds: + murmur (2/6 ESM over precordium) Gastrointestinal (Abdomen): Inspection/Auscultation: + abdomen distended and normal bowel sounds Musculoskeletal: No acute arthritis involving any joints Neurologic: moves all extremities; no focal motor deficits Results & Data Results & Data ([facility]) Vital Signs (Past 12 Hours) Vital Signs Temp Pulse Pulse Resp BP Pulse Ox 02/21/20 07:33 93 H 02/21/20 07:03 36.4 C L 92 H 16 103/63 98 02/21/20 03:38 36.4 C L 95 H 22 101/65 91 (1) Catheter-associated urinary tract infection Encounter type: initial encounter Indwelling urinary catheter type: indwelling urethral catheter Qualified Code(s): T83.511A - Infection and inflammatory reaction due to indwelling urethral catheter, initial encounter; N39.0 - Urinary tract infection, site not specified
--- NOTE | 2020-02-21 12:50 | Hospitalist Progress Note ---
Date of Service February 21, 2020 Assessment & Plan (1) Generalized weakness: Likely multifactorial related to many comorbid conditions including morbid obesity, diabetes with neuropathy, atrial fibrillation with chronic diastolic heart failure, obstructive sleep apnea with hypoxemia. Baseline ambulation is with a walker. Ongoing PT/OT and will likely need rehab placement on discharge He is agreeable to go to [facility] Awaiting authorization before he can be transferred (2) Catheter-associated urinary tract infection: TI associated with chronic Patiño catheter -Urine culture growing Pseudomonas aeruginosa, continued cefepime which was started on admission (02/12), plan to finish Abx course before dc to SNF -Blood cultures have been negative -Discussed with Dr. Machuca from urology (02/17), he does not believe the pt needs to exchange Patiño catheter at this time. Patient usually gets his catheter exchanged every 6 weeks in [facility]. Last exchange was done 2 weeks ago. Per urology, continue his regular scheduled appointments. -No more signs or symptoms of infection -We will continue current antibiotic until the patient is discharged -We will discontinue the antibiotic on discharge (3) Acute diastolic CHF (congestive heart failure): Typically on torsemide which he reports he has been taking. Reports 5lb weight gain in last week. BNP elevated>6K. Hypoxia likely 2/2 pulmonary vascular congestion He was given 40mg IV in the ER and continued for some time Echo did show hyperdynamic LV function, moderate aortic sclerosis without significant stenosis and severe left atrial enlargement. Appreciate cardiology input and recommendation Has been on oral torsemide as per claim inspector, 40 mg twice daily Remains stable clinically We will continue current dose of torsemide Would advise 2000mls of fluid intake over 24 hours (4) Hypoxia: Acute hypoxic respiratory failure Patient is now on room air, 2 step study obtained, patient does not require any supplemental oxygen. 2/2 CHF and infectious ideology. Has been saturating well with room air (5) Acute kidney injury: Avoid overdiuresis. Monitor BMP daily Creatinine remains stable at 1.45 Creatinine has gone worse to 1.87 today with increasing BUN to 36 We will advise drink water about 2000 mL a day (6) Leg wound, left: Does not appear infected. Wound care consulted for the pannus area, and scrotal area. 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 Broad spectrum abx -Dapto and Cefepime-renally dosed Blood cultures have been negative We will continue current antibiotic until being discharged Advised to avoid prolonged pressure at the wound site He is aware about the situation and status cannot do anything more than he has been doing Wound seems to be chronic without any acute cellulitis/infection (8) Abdominal wall cellulitis: abx as above, cellulitis is a potential reason for his increased weakness. (9) Genital hemangioma: Chronic pain from this issue which also prevents him from receiving full dose anticoagulation in afib. He is receiving daily aspirin and also DVT prophylaxis with heparin. Monitor for bleeding. Appreciate wound care provider input and recommendation (10) Seizures: h/o epilepsy. No recent seizures. Cont Keppra per home regimen. (11) Cirrhosis: No ascites on imaging. Nontender protuberant abdomen. Mentating clearly. Appears compensated. (12) Chronic pain: Uses hydrocodone at home but was having severe pain, improved with dilaudid in the ER. (13) Atrial fibrillation: chronic, rate in 90s on admission. Cont metoprolol succinate. Cont ASA. 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 (14) BPH w urinary obs/LUTS: Cont finasteride per home regimen. Chronic patiño in place. (15) Obstructive sleep apnea: Cannot tolerate CPAP. (16) Diabetes mellitus with diabetic polyneuropathy: Hold Januvia, metformin per home regimen. Basal bolus insulin while hospitalized. Current A1C 6.4%. (17) Obesity: Lifestyle modifications recommended. (18) DVT prophylaxis: Heparin Full Code as verified with patient on admission Dispo-to telemetry Awaiting placement to SNF Likely be discharged when approved Admission and Anticipated Discharge Date Admission Date: February 13, 2020 Subjective 02/19/2020 The patient was seen and examined in medical telemetry unit He remains stable and denies any acute distress Besides general weakness and ongoing issues with his lower abdomen and scrotal areas denies any other symptoms No fever and/or chills, no abdominal pain, nausea and/or vomiting 02/20/2020 The patient was seen and examined in medical telemetry unit He remains stable and has been waiting to be transferred to [facility] 02/21/2020 The patient was seen and examined in medical telemetry unit He remains stable for the last few days Denies any significant pain at decubitus site and/or anywhere No fever and/or chills and no shortness of breath Review of Systems Review of Systems: All systems reviewed and are unremarkable except as noted below Constitutional: + fatigue and + weakness Neurologic: + generalized weakness Physical Exam Physical Exam: Lying in bed comfortably Constitutional: + morbidly obese; no acute distress and not ill appearing Eyes: PERRL, conjunctivae normal, anicteric sclerae ENMT: external ear and nose normal, oropharynx normal Neck: trachea midline, no thyromegaly Respiratory: normal respiratory effort; no respiratory distress Auscultation: + diminished lung sounds Cardiovascular: Rate/Rhythm: + abnormal rate and + abnormal rhythm Heart Sounds: + murmur (2/6 ESM over precordium) Extremities: + pedal edema (Chronic skin changes with trace bilateral pedal edema) Gastrointestinal (Abdomen): Inspection/Auscultation: + abdomen distended and normal bowel sounds Percussion/Palpation: abdomen soft Has hanging pannus over the genitalia. Musculoskeletal: No acute arthritis involving any joints. Neurologic: moves all extremities; no focal motor deficits Genitourinary: Has sacral and scrotal decubiti ulcers. Please see the picture to have an idea about the decubitus. Results & Data Results & Data ([facility]) Vital Signs (Past 12 Hours) Vital Signs Temp Pulse Pulse Resp BP Pulse Ox 02/21/20 07:33 93 H 02/21/20 07:03 36.4 C L 92 H 16 103/63 98 02/21/20 03:38 36.4 C L 95 H 22 101/65 91 Laboratory Results [facility] 02/21/20 08:46 Sodium 136 Potassium 3.9 Chloride 99 Carbon Dioxide 28 BUN 36 H Creatinine 1.87 H Glucose 154 H Calcium 9.4 Medications Administered Current Inpatient Medications Acetaminophen (Acetaminophen 325 Mg Tab) 650 mg PO Q4H PRN PRN Reason: Pain or Fever Stop: 03/14/20 20:06 Last Admin: 02/18/20 23:49 Dose: 650 mg Documented by: Aspirin (Aspirin 81 Mg Ectab) 81 mg PO DAILY MARIYA Stop: 03/15/20 08:59 Last Admin: 02/21/20 08:43 Dose: 81 mg Documented by: Dextrose (Dextrose 50% 50 Ml Syringe) 25 - 50 ml IV UD PRN; Protocol PRN Reason: Hypoglycemia Protocol Stop: 03/14/20 19:53 Ferrous Sulfate (Ferrous Sulfate 325 Mg Tab) 325 mg PO BID MARIYA Stop: 03/14/20 20:59 Last Admin: 02/21/20 08:43 Dose: 325 mg Documented by: Finasteride (Finasteride 5 Mg Tab) 5 mg PO DAILY MARIYA Stop: 03/15/20 08:59 Last Admin: 02/21/20 08:43 Dose: 5 mg Documented by: Glucagon (Glucagon For Inj 1 Mg Vial) 1 mg SQ UD PRN; Protocol PRN Reason: Hypoglycemia Protocol Stop: 03/14/20 19:53 Glucose (Glucose 10 Tabs/Tube) 4 - 8 tabs PO UD PRN; Protocol PRN Reason: Hypoglycemia Protocol Stop: 03/14/20 19:53 Glucose (Glucose 40% Gel 15 Gm Tube) 15 - 30 gm PO UD PRN; Protocol PRN Reason: Hypoglycemia Protocol Stop: 03/14/20 19:53 Heparin Sodium (Porcine) (Heparin Sod 5,000 Unit/0.5 Ml Vial) 7,500 units SQ Q8 MARIYA Stop: 03/20/20 05:59 Last Admin: 02/21/20 05:54 Dose: 7,500 units Documented by: Hydromorphone HCl (Hydromorphone Inj 0.5 Mg/0.5 Ml Syr) 0.5 mg IV Q4H PRN PRN Reason: Pain Stop: 03/03/20 01:14 Daptomycin 425 mg/ Syringe 8.5 mls @ 4.25 mls/min IV Q24H MARIYA; Protocol Stop: 02/21/20 16:59 Last Admin: 02/20/20 16:14 Dose: 4.25 mls/min Documented by: Cefepime HCl 2,000 mg/ Syringe 20 mls @ 5.5 mls/min IV Q12H MARIYA; Protocol Stop: 02/27/20 11:59 Last Admin: 02/21/20 01:43 Dose: 5.5 mls/min Documented by: Insulin Aspart (Insulin Aspart 100 Units/Ml 3 Ml Pen) 0 units SC ACHS MARIYA Stop: 03/14/20 20:59 Last Admin: 02/21/20 12:38 Dose: 11 units Documented by: Insulin Glargine (Insulin Glargine Solostar 100 Units/Ml 3 Ml Pen) 15 units SC BID MAIRYA Stop: 03/14/20 20:59 Last Admin: 02/21/20 08:44 Dose: 15 units Documented by: Levetiracetam (Levetiracetam 500 Mg Tab) 500 mg PO BID MARIYA Stop: 03/14/20 20:59 Last Admin: 02/21/20 08:43 Dose: 500 mg Documented by: Melatonin (Melatonin 3 Mg Tab) 3 mg PO HS MARIYA Stop: 03/15/20 20:59 Last Admin: 02/20/20 20:46 Dose: 3 mg Documented by: Metoprolol Succinate (Metoprolol Succ 50mg Ext Rel Tab) 200 mg PO DAILY MARIYA Stop: 03/15/20 08:59 Last Admin: 02/21/20 08:49 Dose: Not Given Documented by: Miconazole Nitrate (Miconazole Nitrate Powder 43 Gm) 1 appln EXT PRN PRN PRN Reason: Affected Skin Folds Stop: 03/21/20 18:52 Miscellaneous (Carbohydrates For Hypoglycemia ) 15 - 30 gm PO UD PRN PRN Reason: Hypoglycemia Protocol Stop: 03/14/20 19:53 Miscellaneous Information (Daptomycin Consult Active) 1 ea N/A UD MARIYA Stop: 03/14/20 20:22 Miscellaneous Information (Cefepime Consult Active) 1 ea N/A UD PRN PRN Reason: Consult Stop: 03/16/20 14:50 Oxycodone HCl (Oxycodone Hcl Ir 5 Mg Tab (Immediate Release)) 5 - 10 mg PO Q4H PRN PRN Reason: Pain Stop: 03/03/20 01:14 Last Admin: 02/20/20 20:46 Dose: 10 mg Documented by: Pantoprazole Sodium (Pantoprazole 40 Mg Tab) 40 mg PO BID MARIYA Stop: 03/14/20 20:59 Last Admin: 02/21/20 08:42 Dose: 40 mg Documented by: Potassium Chloride (Potassium Chloride 10 Meq Tabcr) 10 meq PO DAILY MARIYA Stop: 03/15/20 08:59 Last Admin: 02/21/20 08:43 Dose: 10 meq Documented by: Torsemide (Torsemide 10 Mg Tab) 40 mg PO DAILY MARIYA Stop: 03/21/20 08:59 Last Admin: 02/21/20 08:43 Dose: 40 mg Documented by: (1) Catheter-associated urinary tract infection Encounter type: initial encounter Indwelling urinary catheter type: indwelling urethral catheter Qualified Code(s): T83.511A - Infection and inflam matory reaction due to indwelling urethral catheter, initial encounter; N39.0 - Urinary tract infection, site not specified
--- NOTE | 2020-02-21 14:38 | Wound Progress Note ---
Date of Service February 21, 2020 Assessment & Plan (1) Leg wound, left: Wound is improving. No debridement was required. Continue to dress with OPTi foam changed every 3 days and as needed. (2) Traumatic wound: Patient with a traumatic wound of his left upper back. This is improving. Debridement was required. Continue dressed with OPTi foam changed every 3 days and as needed. (3) Open wound of scrotum: Wound is stable. No debridement was done. Continue to dress wound with Xeroform and ABDs changed every day and as needed. Patient will follow-up in wound clinic upon discharge. Thank you for allow me to participate in the care of this patient. Please call with any questions. Admission and Anticipated Discharge Date Admission Date: February 13, 2020 Subjective Patient seen sitting in a chair with WOCN. He has no new complaints. He is eating his lunch. Review of Systems Review of Systems: All systems reviewed & are unremarkable except as noted in HPI & below Physical Exam Physical Exam: Temp Pulse Resp BP Pulse Ox 36.4 C L 93 H 16 103/63 98 02/21/20 07:03 02/21/20 07:33 02/21/20 07:03 02/21/20 07:03 02/21/20 07:03 Skin: Left leg wound measurements recorded in nursing documentation. Wound is covered with fibrin and slough. Periwound is intact with mild inflammation. There is moderate drainage and no foul odors. Left upper back wound measuring as recorded in nursing documentation. Wound is covered with fibrin and slough. Periwound is intact without inflammation. There is some periwound ecchymoses. There is moderate drainage and no foul odor. Results & Data ([facility]) Vital Signs (Past 12 Hours) Vital Signs Temp Pulse Pulse Resp BP Pulse Ox 02/21/20 07:33 93 H 02/21/20 07:03 36.4 C L 92 H 16 103/63 98 02/21/20 03:38 36.4 C L 95 H 22 101/65 91 PG Care Time/CCT Total # of Minutes Spent Total Time Spent with Patient: Total time spent is greater than 50% in coordination of care (as documented) at patient's floor/unit and/or counseling patient: Coding Level of Care Code 61983 Subseq Hosp Care Lvl 2 Diagnoses Leg wound, left S81.802A Traumatic wound Open wound of scrotum S31.30XA
--- NOTE | 2020-02-22 08:07 | Discharge Summary ---
Date of Service February 22, 2020 Admission HPI Per Admitting Provider 79-year-old male with cirrhosis, atrial fibrillation, diabetes type 2 with polyneuropathy, history of seizures, BPH with LUTS status post chronic urinary catheter, history of C. difficile, history of open wound of scrotum, history of sacral ulcer stage II, obstructive sleep apnea without chronic CPAP use who presents with generalized weakness. He initially reported to the ER yesterday, 02/11 with report of generalized weakness unable to clothe himself. That morning he reports sliding off the chair on the floor and could not get up. Reported feeling progressively weaker the last couple of days but had no other issues. A chest x-ray at that time revealed moderate cardiomegaly with increased prominence of pulmonary vasculature and no well-defined focal infiltrate. EKG revealed atrial fibrillation which is known to this patient with a heart rate of 105 bpm. There was no evidence of ST elevation or PVCs. He was treated with IV Ancef and given 500 cc of normal saline. He was able to get around with a w alker and felt he was stable for discharge. He was given Keflex and Bactrim for potential cellulitis of the left leg. He went home but states that his would not let him ambulate because she was still scared that he would fall. He presented again to the emergency room today, 02/12 reporting again generalized weakness. He again denied any respiratory symptoms, chest pain, cough, or fevers or chills. He presented with a fresh gash on his left lower leg and reports that an ambulance took him home last night and he had trouble getting up and slid off the stretcher injuring his left leg. He denied hitting his head or hurting any other part of his body. He reported having an up-to-date tetanus shot to the ER physician today. On arrival to the ER he was noted to be hypoxic requiring 4 L/min via nasal cannula to achieve an oxygenation of 92%. He is not on oxygen at home. Physical exam revealed an indwelling catheter and a large pannus with diffuse erythema in the skin folds. He also had a an enlarged scrotum with areas of skin degradation and mild bleeding. He is known to have this for the last 3 to 4 years and is a source of chronic pain controlled by hydrocodone. The patient reports this has not been controlling his pain in recent days. In the ER he was given hydrocodone acetaminophen 5/325mg x 1, furosemide 40 mg IV x1 dose, and he was started on daptomycin and cefepime for possible infection. He did not appear septic on exam. Upon my arrival he had already diuresed 1200 cc into a new Patiño catheter. Admission Exam Per Admitting Provider Physical Exam: CONSTITUTIONAL: obese, vitals as above, generally well- appearing after having Dilaudid-was initially very uncomfortable 2/2 scrotal pain EYES: pupils are round and equal bilaterally, normal conjunctivae, no scleral icterus ENT: external ear and nose normal, oropharynx clear, no TM abnormality, no maxillary or ethmoid sinus tenderness NECK: trachea midline, +JVD RESPIRATORY: clear to auscultation bilaterally, no crackles, rales or wheezes, normal respiratory effort CARDIOVASCULAR: normal rate, irreg rhythm, S1 and 2 heard without murmurs, gallops or rubs, + JVD, no peripheral edema CHEST: inspection of chest was normal GASTROINTESTINAL: normal bowel sounds, soft, nontender, nondistended no guarding, protuberant abdomen, significant erythema and irritation within skin folds and under pannus into groin area. : large erythematous scrotal mass, stool is present around this area, buried penis not visualized MUSCULOSKELETAL: strength 5/5 throughout, head is normocephalic and atraumatic SKIN: warm and dry, erythema on scrotum and abdomen as above. 5-10 cm abrasive wound that is nondraining on left lower leg. No surrounding redness suggestive of cellutis in this area. +erythroderma on bilateral lower legs. NEUROLOGIC: No facial palsy, no dysarthria. CN 2-12 grossly intact, no sensory deficit, normal cognition, normal speech, no tremor. No gross neuro deficits. Gait or ability to stand was not tested 2/2 potential fall risk PSYCHIATRIC: alert cooperative and oriented Principal Diagnosis Generalized weakness, catheter associated UTI, multiple wounds without any acute infection, cirrhosis of the liver, JUAN MANUEL, type 2 diabetes, chronic diastolic heart failure Discharge Exam Constitutional + morbidly obese; no acute distress and not ill appearing Eyes PERRL, conjunctivae normal, anicteric sclerae ENMT external ear and nose normal, oropharynx normal Neck trachea midline, no thyromegaly Respiratory normal respiratory effort; no respiratory distress Auscultation: + diminished lung sounds Cardiovascular Rate/Rhythm: + abnormal rate and + abnormal rhythm Heart Sounds: + murmur (2/6 ESM over precordium) Extremities: + pedal edema (Chronic skin changes with trace bilateral pedal edema) Gastrointestinal (Abdomen) Inspection/Auscultation: + abdomen distended and normal bowel sounds Percussion/Palpation: abdomen soft Neurologic moves all extremities; no focal motor deficits Discharge Data Allergies Allergy/AdvReac Type Severity Reaction Status Date / Time metronidazole Allergy Severe Unknown Verified 02/13/20 16:05 amoxicillin Allergy Intermediate Rash Verified 02/13/20 16:05 Consultations 02/13/20 17:32 ED Decision to Admit Stat 02/13/20 20:07 Consult Case Management - Discharge Planning Routine Consult Wound Care Provider Routine 02/14/20 08:00 Consult Cardiology Routine Ordered Studies 02/13/20 16:42 CT abd pelvis wo con Stat 02/13/20 20:07 US abdomen ltd ascites Urgent Hospital Course (1) Generalized weakness: Likely multifactorial related to many comorbid conditions including morbid obesity, diabetes with neuropathy, atrial fibrillation with chronic diastolic heart failure, obstructive sleep apnea with hypoxemia. Baseline ambulation is with a walker. Ongoing PT/OT and will likely need rehab placement on discharge He is agreeable to go to [facility] Awaiting authorization before he can be transferred (2) Catheter-associated urinary tract infection: TI associated with chronic Patiño catheter -Urine culture growing Pseudomonas aeruginosa, continued cefepime which was started on admission (02/12), plan to finish Abx course before dc to SNF -Blood cultures have been negative -Discussed with Dr. Machuca from urology (02/17), he does not believe the pt needs to exchange Patiño catheter at this time. Patient usually gets his catheter exchanged every 6 weeks in [facility]. Last exchange was done 2 weeks ago. Per urology, continue his regular scheduled appointments. -No more signs or symptoms of infection -We will continue current antibiotic until the patient is discharged -We will discontinue the antibiotic on discharge (3) Acute diastolic CHF (congestive heart failure): Typically on torsemide which he reports he has been taking. Reports 5lb weight gain in last week. BNP elevated>6K. Hypoxia likely 2/2 pulmonary vascular congestion He was given 40mg IV in the ER and continued for some time Echo did show hyperdynamic LV function, moderate aortic sclerosis without significant stenosis and severe left atrial enlargement. Appreciate cardiology input and recommendation Has been on oral torsemide as per doggy daycare activities director, 40 mg twice daily Remains stable clinically We will continue current dose of torsemide Would advise 2000mls of fluid intake over 24 hours (4) Hypoxia: Acute hypoxic respiratory failure Patient is now on room air, 2 step study obtained, patient does not require any supplemental oxygen. 2/2 CHF and infectious ideology. Has been saturating well with room air (5) Acute kidney injury: Avoid overdiuresis. Monitor BMP daily Creatinine remains stable at 1.45 Creatinine has gone worse to 1.87 today with increasing BUN to 36 We will advise drink water about 2000 mL a day (6) Leg wound, left: Does not appear infected. Wound care consulted for the pannus area, and scrotal area. 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 Broad spectrum abx -Dapto and Cefepime-renally dosed Blood cultures have been negative We will continue current antibiotic until being discharged Advised to avoid prolonged pressure at the wound site He is aware about the situation and status cannot do anything more than he has been doing Wound seems to be chronic without any acute cellulitis/infection (8) Abdominal wall cellulitis: abx as above, cellulitis is a potential reason for his increased weakness. (9) Genital hemangioma: Chronic pain from this issue which also prevents him from receiving full dose anticoagulation in afib. He is receiving daily aspirin and also DVT prophylaxis with heparin. Monitor for bleeding. Appreciate wound care provider input and recommendation (10) Seizures: h/o epilepsy. No recent seizures. Cont Keppra per home regimen. (11) Cirrhosis: No ascites on imaging. Nontender protuberant abdomen. Mentating clearly. Appears compensated. (12) Chronic pain: Uses hydrocodone at home but was having severe pain, improved with dilaudid in the ER. (13) Atrial fibrillation: chronic, rate in 90s on admission. Cont metoprolol succinate. Cont ASA. 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 (14) BPH w urinary obs/LUTS: Cont finasteride per home regimen. Chronic patiño in place. (15) Obstructive sleep apnea: Cannot tolerate CPAP. (16) Diabetes mellitus with diabetic polyneuropathy: Hold Januvia, metformin per home regimen. Basal bolus insulin while hospitalized. Current A1C 6.4%. (17) Obesity: Lifestyle modifications recommended. (18) DVT prophylaxis: Heparin Full Code as verified with patient on admission Dispo-to telemetry Awaiting placement to SNF Likely be discharged when approved Total Time Total Time Spent Total Time Spent (In Minutes): 40 minutes Total Time Includes: Examination of the Patient, Discharge Planning, Medication Reconciliation and 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 With Other Providers Discharge Plan Discharge Items Patient Disposition: Transfer [facility] Reason For Visit: WEAKNESS, CELLULITIS Discharge Diagnosis: Generalized weakness, catheter associated UTI, multiple wounds without any acute infection, cirrhosis of the liver, JUAN MANUEL, type 2 diabetes, chronic diastolic heart failure Condition on Discharge: Fair Activity: As commented below Activity Comment: Will need to continue PT and OT Non-emergency contact: Primary Care Provider Call non-emergency contact if: you have any medication questions and your symptoms worsen Follow-up/Referrals: Donte Szymanski DO [Primary Care Provider] - (Please make an appointment with your primary care physician within 7 days of discharge from the facility) Ozzie Floyd DO [Physician] - (Please make an appointment with wound care within 1 to 2 weeks) Diet: Carb Consistent or DM2 and Low Potassium (2gm) Addtl Attending Provider Instructions: Please take precaution to avoid falls Try to avoid prolonged pressure over the sacrum Addtl Digital Editor Provider Instructions: Wound care as per instructions from wound care nurse: (1) Leg wound, left: Patient with a traumatic wound on his left leg in the setting of chronic venous insufficiency. No debridement was required. Wound be dressed with Aquacel Ag. Could consider adding compression when his heart failure has improved. 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 No debridement was required. Wounds be dressed with Xeroform and ABDs change as needed. Thank you Participate in the care of this patient. Please call with any questions. Pending Studies at Discharge: No Stand-Alone Forms: My [facility] [place] Skilled Items Patient informed of condition?: Yes DNR: No Discharge Level of Care: Skilled Communicable Disease: No Discharge Prognosis: Stable Lines: None Urinary Catheter: Yes Medications and DC Order Prescriptions: New torsemide 10 mg Tablet 40 mg PO DAILY 30 Days Qty: 120 RF: 0 Continued metformin 500 mg Tablet 500 mg PO QAM RF: 0 metoprolol succinate 200 mg tablet extended release 24 hr 200 mg PO DAILY RF: 0 pantoprazole 40 mg Tablet,Delayed Release (Dr/Ec) 40 mg PO BID RF: 0 ferrous sulfate 325 mg (65 mg iron) Tablet 325 mg PO BID RF: 0 finasteride 5 mg tablet 5 mg PO DAILY RF: 0 levetiracetam 500 mg Tablet 500 mg PO BID RF: 0 hydrocodone-acetaminophen 5-325 mg tablet 1 tab PO Q8H PRN (Reason: Pain, Moderate) 5 Days Qty: 15 RF: 0 potassium chloride 10 mEq tablet,ER particles/crystals 10 meq PO DAILY RF: 0 Januvia 50 mg tablet 50 mg PO DAILY RF: 0 aspirin [Aspirin Low Dose] 81 mg Tablet,Delayed Release (Dr/Ec) 81 mg PO DAILY RF: 0 Discontinued torsemide 20 mg tablet See Rx Instructions .ROUTE .COMPLEX RF: 0 sulfamethoxazole-trimethoprim [Bactrim DS] 800-160 mg tablet 1 tab PO Q12H Qty: 14 RF: 0 cephalexin [Keflex] 500 mg capsule 500 mg PO Q6H 10 Days Qty: 40 RF: 0 Discharge Orders: Discharge Order (Routine); Ordered 02/21/20 Ordered By: Ricky Campbell/Other Patient Handouts: Managing Type 2 Diabetes Admission Data Admit Date/Time: 02/13/20 18:17 Attending Provider: Ricky Canela Admit Provider: Marisol Daly Primary Care Provider: Donte Szymanski Other Providers: Marisol Daly ; Ozzie Floyd ; Floyd Harrington ; Edvin Dias ; Tobi Chaidez Other Interventions: Discharge Summary Assessment (RN) Last Done: 02/21/20 15:11
== END 2020-02-21 16:54 | DRG 291 ==
LOC: ED 14:24 → 2S 18:17 → SUATTDRO 18:17 → 2S 19:25 → 2N 02-16 17:02

== ENCOUNTER 2020-05-26 17:31 | Inpatient (IN) ==
[2020-05-26] MEDS ORDERED: SODIUM CHLORIDE 0.9% 1000ML 1,000 ML IV ONE ×2 (17:55→19:18)
[2020-05-26] MEDS ORDERED: cefTRIAXone SODIUM 2,000 MG/70 ML BAG IV STA (17:55)
--- NOTE | 2020-05-26 18:18 | Emergency Department Note ---
Impression & Plan Sepsis, Acute UTI, Hydronephrosis, Bladder outlet obstruction, Malfunction of Baires catheter ED Provider Note NAME: CUAUHTEMOC LOUIS AGE: 79 SEX: M : 1940 ARRIVES VIA: Ambulance INFORMANT: Patient, Dr. Dueñas ED PROVIDER(S): Fab Rogers DO CHIEF COMPLAINT: Altered mental status HPI: Patient is a 79-year-old male who lives at [facility]. He tested po sitive for coronavirus on May 04. He tested positive again on the . He was set to leave the Covid unit coming up but they noticed today that he became tachycardic and lethargic. He was little hypoxic at 88%. They have not changed his Baires as they were only able to do without urology and he is overdue. They note he has had no urine output over the past 24 hours. No fevers. Patient d enies any headache, chest pain or belly pain at this time but is slightly confused. ROS: Review of systems limited secondary to altered mental status PAST MEDICAL HISTORY:See Below PAST SURGICAL HISTORY:See Below FAMILY HISTORY:See Below SOCIAL HISTORY:See Below HOME MEDICATIONS:See Below ALLERGIES:See Below VITALS:See Below PHYSICAL EXAMINATION: GENERAL: Sitting up in bed, ill-appearing, intermittently moaning but able to answer questions EYE EXAM: normal conjunctiva. OROPHARYNX: Mask in place, on 2 L nasal cannula NECK: supple, no nuchal rigidity, no adenopathy, non-tender LUNGS: Diminished bilaterally. Normal chest wall mechanics HEART: Tachycardic and irregular regular, S1 normal and S2 normal ABDOMEN: abdomen soft, non-tender, normo-active bowel sounds, no masses, no rebound or guarding. : Baires in place with no drainage in the bag but green purulent drainage out around the penis UPPER EXTREMITIES: upper extremities are grossly normal. LOWER EXTREMITIES: edema bilaterally NEURO EXAM: Oriented to person, but not place or year, no focal deficit MEDICAL DECISION MAKING: Patient is a 79-year-old gentleman who spent 20 days in the Covid unit at [facility]. They are getting ready to release him when they found him to be tachycardic and much more lethargic. He has had no urine output from the Baires in about 24 hours. He was transferred to the ER. IV was established blood work was obtained. He was found to be hypoxic at 88%. Repeat Covid test was negative. Labs show a leukocytosis of 23,000. He did drop his pressures into the 70s to 80s for short period of time but responded to 2 L IV fluids. INR 1.3. Sodium mildly low at 134. Lactate was elevated at 2. Troponin was elevated at 0.172. Creatinine was elevated at 4.6 up from 0.9. Pro-Poncho was elevated at 4.5. UA does show a clear UTI with nitrates leuks and white cells. There is +2 bacteria. On exam there was pus coming out around the penis. The Baires was not draining. After the CT we contacted urology who present to bedside to replace the catheter as per report from Dr. Dueñas urology are the only ones that are able to replace this catheter as it is very difficult. CT of the chest was fairly unremarkable. He was covered with IV cefepime and given IV fluids. He was updated at bedside although he was confused. Discussed with hospitalist admitted for further work-up. Triage Nursing notes reviewed. Prior medical records reviewed Vital Signs: reviewed and remarkable for tachycardic and hypoxic Differential diagnosis: Differential diagnosis includes etiologies such as sepsis, UTI, pneumonia, metabolic, electrolyte abnormalities, cardiac sources, intracerebral event, toxicologic, neurological, as well as others were entertained. ER treatment provided: See below Diagnostics interpreted by me: ECG: A. fib RVR rate of [address] depressions in the high lateral leads Cardiac Monitoring: An order was placed for continuous cardiac monitoring. The monitor shows a rate of 122 with A. fib RVR rhythm. Laboratory studies: As stated above and show below. Imaging studies: As stated above in [facility] Consultation(s): As stated above in [facility] Patient was discussed with the hospitalist for admission Dr. Govind Dumont evaluated patient at bedside and placed a new Baires ED COURSE: Procedures: none PDMP:reviewed and no issues Critical Care: I have personally spent 35 minutes of critical care time in the direct management of this patient. This includes bedside care, interpretation of diagnostic studies, and testing, discussion with consultants, patient, and family members, and other required patient management activities. This 35 minutes is in excess of all separately billable procedures. 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, with fat layer exposed Diverticulosis of colon (without mention of hemorrhage) DM (diabetes mellitus), type 2, uncontrolled w/ophthalmic complication Esophageal candidiasis Exertional dyspnea Gastric ulcer with hemorrhage but without obstruction H/O Clostridium difficile infection Hemangioma of skin History of chronic atrial fibrillation Hypertension Hypoxia ICH (intracerebral hemorrhage) Morbid obesity Open wound of scrotum JUAN MANUEL (obstructive sleep apnea) Peripheral arterial disease Rhabdomyolysis Scrotal varicose veins Skin ulcer of left foot including toes Symptomatic anemia Urinary retention Surgical History History of total replacement of right hip S/P cholecystectomy S/P tonsillectomy and adenoidectomy Family History Other No significant family history Social History Smoking Status: Never smoker Second Hand Exposure: No; Hx Alcohol Use: No Hx Substance Use: No Preferred Language: Argentine 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 Ability: Effective Welfare Manager Required: No Beliefs That Will Affect Care: None marital status: Current Living Situation: [facility] Current Living Situation Comment: Home with spouse Feels Safe at Home: Yes Assistive Devices: Glasses Allergies Allergies Allergy/AdvReac Type Severity Reaction Status Date / Time metronidazole Allergy Severe Unknown Verified 05/26/20 20:58 amoxicillin Allergy Intermediate Rash Verified 05/26/20 20:58 Home Meds Home Medications Medication Instructions Recorded Confirmed ferrous sulfate 325 mg PO BID 06/16/18 05/26/20 finasteride 5 mg PO DAILY 06/16/18 05/26/20 metformin 500 mg PO QAM 06/16/18 05/26/20 metoprolol succinate 200 mg PO DAILY 06/16/18 05/26/20 pantoprazole 40 mg PO BID 06/16/18 05/26/20 levetiracetam 500 mg PO BID 03/16/19 05/26/20 Januvia 50 mg PO DAILY 06/17/19 05/26/20 potassium chloride 10 meq PO DAILY 06/17/19 05/26/20 aspirin [Aspirin Low Dose] 81 mg PO DAILY 11/10/19 05/26/20 acetaminophen [Tylenol] 650 mg PO QID PRN MDD 3G 05/26/20 05/26/20 atropine sulfate (PF) 2 drp Q1H PRN 05/26/20 05/26/20 dextromethorphan-guaifenesin 10 ml PO Q4H PRN 05/26/20 05/26/20 [Robitussin-DM] diclofenac sodium 2 g TOPICAL QID 05/26/20 05/26/20 docusate sodium 200 mg PO HS 05/26/20 05/26/20 levofloxacin [Levaquin] 750 mg PO DAILY 05/26/20 05/26/20 lorazepam 0.5 mg PO Q6H PRN 05/26/20 05/26/20 magnesium hydroxide [Milk of 30 ml PO DAILY PRN 05/26/20 05/26/20 Magnesia] melatonin 3 mg PO HS 05/26/20 05/26/20 mineral oil-isopropyl myristat 1 applic TOPICAL BID 05/26/20 05/26/20 [Eucerin] morphine concentrate 10 mg SUBLINGUAL Q1H PRN 05/26/20 05/26/20 multivitamin [Multiple Vitamin] 1 tab PO DAILY 05/26/20 05/26/20 nystatin 1 applic TOPICAL TID 05/26/20 05/26/20 nystatin 1 unit PO BID 05/26/20 05/26/20 oxycodone 5 mg PO Q12H 05/26/20 05/26/20 oxycodone 5 mg PO Q6H PRN 05/26/20 05/26/20 polyethylene glycol 3350 [Miralax] 17 g PO DAILY 05/26/20 05/26/20 promethazine 25 mg IM Q6H PRN 05/26/20 05/26/20 promethazine 25 mg PO Q6H PRN 05/26/20 05/26/20 torsemide 20 mg PO DAILY 05/26/20 05/26/20 Results & Data (ED) Vital Signs Vital Signs - 24 hr 05/26/20 17:44 05/26/20 18:21 05/26/20 18:30 Temperature 36.7 C Temperature Source Oral Pulse Rate 123 H Pulse Rate [Apical] 118 H Respiratory Rate 20 20 Respiratory Effort / Characteristics Non-Labored Moaning Blood Pressure 140/128 H Blood Pressure [Left Arm] 108/86 Blood Pressure Mean 132 Blood Pressure Mean [Left Arm] 93 Pulse Oximetry 88 L 96 96 Oxygen Delivery Method Room Air Nasal Cannula Nasal Cannula Oxygen Flow Rate 2 2 Sepsis Recent Fever Within 48 Hours No Sepsis New/Unexplained Change in Mental Status Yes Sepsis Action Taken by Nursing Physician Notified 05/26/20 19:15 05/26/20 19:31 05/26/20 20:11 Temperature Temperature Source Pulse Rate Pulse Rate [Apical] 115 H 106 H 106 H Respiratory Rate 15 19 18 Respiratory Effort / Characteristics Blood Pressure Blood Pressure [Left Arm] 85/51 L 94/48 L 100/70 Blood Pressure Mean Blood Pressure Mean [Left Arm] 62 63 80 Pulse Oximetry 95 96 100 Oxygen Delivery Method Nasal Cannula Nasal Cannula Nasal Cannula Oxygen Flow Rate 3 3 3 Sepsis Recent Fever Within 48 Hours Sepsis New/Unexplained Change in Mental Status Sepsis Action Taken by Nursing 05/26/20 21:07 Temperature Temperature Source Pulse Rate Pulse Rate [Apical] 107 H Respiratory Rate 19 Respiratory Effort / Characteristics Blood Pressure Blood Pressure [Left Arm] 95/84 L Blood Pressure Mean Blood Pressure Mean [Left Arm] 87 Pulse Oximetry 97 Oxygen Delivery Method Nasal Cannula Oxygen Flow Rate 3 Sepsis Recent Fever Within 48 Hours Sepsis New/Unexplained Change in Mental Status Sepsis Action Taken by Nursing Laboratory Data Result diagrams: 05/26/20 18:08 05/26/20 18:08 Lab Results 05/26/20 05/26/20 05/26/20 Range/Units 18:08 18:08 18:08 WBC 23.16 H (4.8-10.8) K/uL RBC 4.97 (4.7-6.1) M/uL Hgb 14.9 (14.0-18.0) g/dL POC Hgb (14.0-18.0) g/dl Hct 43.4 (42-52) % POC Hct (42-52) % MCV 87.3 (80-100) fL MCH 30.0 (25-34) pg MCHC 34.3 (32-36) g/dL RDW Std Deviation 53.2 H (36.4-46.3) fL RDW Coeff of Shadi 16.7 H (11.5-14.5) % Plt Count 298 (130-400) K/uL MPV 10.1 (7.4-10.4) fL Immature Gran % (Auto) 0.3 % Neut % (Auto) 88.0 % Lymph % (Auto) 4.2 % [place] % (Auto) 7.3 % Eos % (Auto) 0.1 % Baso % (Auto) 0.1 % Neut # (Auto) 20.37 H (1.4-6.5) K/uL Lymph # (Auto) 0.97 L (1.2-3.4) K/uL [place] # (Auto) 1.70 H (0.11-0.59) K/uL Eos # (Auto) 0.02 (0-0.5) K/uL Baso # (Auto) 0.02 (0-0.2) K/uL Immature Gran # (Auto) 0.08 H (0.00-0.02) K/uL PT 13.7 H (9.0-12.0) Seconds INR 1.3 H (0.9-1.1) APTT 35.4 H (21.0-31.0) Seconds PTT Ratio 1.3 POC Sodium (135-144) mmol/L Sodium 134 L (136-145) mmol/L POC Potassium (3.3-5.0) mmol/L Potassium 4.8 (3.5-5.1) mmol/L POC Chloride (101-112) mmol/L Chloride 101 (98-107) mmol/L Carbon Dioxide 21 (21-32) mmol/L POC Total CO2 (24-31) mmol/L Anion Gap 12.0 H (3-11) POC Anion Gap (16-25) mmol/L POC BUN (7-18) mg/dl BUN 79 H (7-18) mg/dl Creatinine 4.62 H* (0.6-1.4) mg/dl POC Creatinine (0.6-1.3) mg/dl Est Cr Clr Drug Dosing 17.2 ml/min Est GFR ( Amer) 13.0 Est GFR (Non-Af Amer) 11.2 BUN/Creatinine Ratio 17.1 (10-20) Glucose 123 H (70-99) mg/dl POC Glucose (other) (70-99) mg/dl Lactate (0.4-2.0) mmol/L Calcium 8.8 (8.5-10.1) mg/dl POC Ioniz Calcium Pepito (1.12-1.32) mmol/l Magnesium 1.9 (1.8-2.4) mg/dl Total Bilirubin 1.1 H (0.2-1) mg/dl AST 21 (15-37) U/L ALT 11 L (12-78) U/L Alkaline Phosphatase 104 (45-117) U/L Troponin I 0.172 H* (0-0.045) ng/ml Total Protein 7.5 (6.4-8.2) gm/dl Albumin 2.2 L (3.4-5.0) gm/dl Globulin 5.3 H (2.5-4.0) gm/dl Albumin/Globulin Ratio 0.4 L (0.9-2) Procalcitonin (0-0.5) ng/ml Urine Color Urine Appearance (Clear) Urine pH (4.5-7.5) Ur Specific [place] (1.000-1.030) Urine Protein (Negative) Urine Glucose (UA) (Negative) Urine Ketones (Negative) Urine Blood (Negative) Urine Nitrite (Negative) Urine Bilirubin (Negative) Urine Urobilinogen (Negative) Ur Leukocyte Esterase (Negative) Urine WBC (Auto) (0-5) /hpf Urine RBC (Auto) (0-4) /hpf U Hyaline Cast (Auto) (0-5) /lpf U Epithel Cells (Auto) (0-5) /lpf Urine Bacteria (Auto) (Negative) Urine Yeast COVID-19 Eval Order SARS-CoV-2, RNA, NAAT (NEGATIVE) 05/26/20 05/26/20 05/26/20 Range/Units 18:08 18:08 18:15 WBC (4.8-10.8) K/uL RBC (4.7-6.1) M/uL Hgb (14.0-18.0) g/dL POC Hgb (14.0-18.0) g/dl Hct (42-52) % POC Hct (42-52) % MCV (80-100) fL MCH (25-34) pg MCHC (32-36) g/dL RDW Std Deviation (36.4-46.3) fL RDW Coeff of Shadi (11.5-14.5) % Plt Count (130-400) K/uL MPV (7.4-10.4) fL Immature Gran % (Auto) % Neut % (Auto) % Lymph % (Auto) % [place] % (Auto) % Eos % (Auto) % Baso % (Auto) % Neut # (Auto) (1.4-6.5) K/uL Lymph # (Auto) (1.2-3.4) K/uL [place] # (Auto) (0.11-0.59) K/uL Eos # (Auto) (0-0.5) K/uL Baso # (Auto) (0-0.2) K/uL Immature Gran # (Auto) (0.00-0.02) K/uL PT (9.0-12.0) Seconds INR (0.9-1.1) APTT (21.0-31.0) Seconds PTT Ratio POC Sodium (135-144) mmol/L Sodium (136-145) mmol/L POC Potassium (3.3-5.0) mmol/L Potassium (3.5-5.1) mmol/L POC Chloride (101-112) mmol/L Chloride (98-107) mmol/L Carbon Dioxide (21-32) mmol/L POC Total CO2 (24-31) mmol/L Anion Gap (3-11) POC Anion Gap (16-25) mmol/L POC BUN (7-18) mg/dl BUN (7-18) mg/dl Creatinine (0.6-1.4) mg/dl POC Creatinine (0.6-1.3) mg/dl Est Cr Clr Drug Dosing ml/min Est GFR ( Amer) Est GFR (Non-Af Amer) BUN/Creatinine Ratio (10-20) Glucose (70-99) mg/dl POC Glucose (other) (70-99) mg/dl Lactate 2.3 H* (0.4-2.0) mmol/L Calcium (8.5-10.1) mg/dl POC Ioniz Calcium Pepito (1.12-1.32) mmol/l Magnesium (1.8-2.4) mg/dl Total Bilirubin (0.2-1) mg/dl AST (15-37) U/L ALT (12-78) U/L Alkaline Phosphatase (45-117) U/L Troponin I (0-0.045) ng/ml Total Protein (6.4-8.2) gm/dl Albumin (3.4-5.0) gm/dl Globulin (2.5-4.0) gm/dl Albumin/Globulin Ratio (0.9-2) Procalcitonin 4.53 H (0-0.5) ng/ml Urine Color Urine Appearance (Clear) Urine pH (4.5-7.5) Ur Specific [place] (1.000-1.030) Urine Protein (Negative) Urine Glucose (UA) (Negative) Urine Ketones (Negative) Urine Blood (Negative) Urine Nitrite (Negative) Urine Bilirubin (Negative) Urine Urobilinogen (Negative) Ur Leukocyte Esterase (Negative) Urine WBC (Auto) (0-5) /hpf Urine RBC (Auto) (0-4) /hpf U Hyaline Cast (Auto) (0-5) /lpf U Epithel Cells (Auto) (0-5) /lpf Urine Bacteria (Auto) (Negative) Urine Yeast COVID-19 Eval Order Covid19 IDNow [facility] SARS-CoV-2, RNA, NAAT (NEGATIVE) 05/26/20 05/26/20 05/26/20 Range/Units 18:15 18:17 20:14 WBC (4.8-10.8) K/uL RBC (4.7-6.1) M/uL Hgb (14.0-18.0) g/dL POC Hgb 15.6 (14.0-18.0) g/dl Hct (42-52) % POC Hct 46 (42-52) % MCV (80-100) fL MCH (25-34) pg MCHC (32-36) g/dL RDW Std Deviation (36.4-46.3) fL RDW Coeff of Shadi (11.5-14.5) % Plt Count (130-400) K/uL MPV (7.4-10.4) fL Immature Gran % (Auto) % Neut % (Auto) % Lymph % (Auto) % [place] % (Auto) % Eos % (Auto) % Baso % (Auto) % Neut # (Auto) (1.4-6.5) K/uL Lymph # (Auto) (1.2-3.4) K/uL [place] # (Auto) (0.11-0.59) K/uL Eos # (Auto) (0-0.5) K/uL Baso # (Auto) (0-0.2) K/uL Immature Gran # (Auto) (0.00-0.02) K/uL PT (9.0-12.0) Seconds INR (0.9-1.1) APTT (21.0-31.0) Seconds PTT Ratio POC Sodium 134 L (135-144) mmol/L Sodium (136-145) mmol/L POC Potassium 4.9 (3.3-5.0) mmol/L Potassium (3.5-5.1) mmol/L POC Chloride 102 (101-112) mmol/L Chloride (98-107) mmol/L Carbon Dioxide (21-32) mmol/L POC Total CO2 21 L (24-31) mmol/L Anion Gap (3-11) POC Anion Gap 17.0 (16-25) mmol/L POC BUN 66 H (7-18) mg/dl BUN (7-18) mg/dl Creatinine (0.6-1.4) mg/dl POC Creatinine 4.5 H (0.6-1.3) mg/dl Est Cr Clr Drug Dosing ml/min Est GFR ( Amer) Est GFR (Non-Af Amer) BUN/Creatinine Ratio (10-20) Glucose (70-99) mg/dl POC Glucose (other) 122 H (70-99) mg/dl Lactate 1.5 (0.4-2.0) mmol/L Calcium (8.5-10.1) mg/dl POC Ioniz Calcium Pepito 1.06 L (1.12-1.32) mmol/l Magnesium (1.8-2.4) mg/dl Total Bilirubin (0.2-1) mg/dl AST (15-37) U/L ALT (12-78) U/L Alkaline Phosphatase (45-117) U/L Troponin I (0-0.045) ng/ml Total Protein (6.4-8.2) gm/dl Albumin (3.4-5.0) gm/dl Globulin (2.5-4.0) gm/dl Albumin/Globulin Ratio (0.9-2) Procalcitonin (0-0.5) ng/ml Urine Color Urine Appearance (Clear) Urine pH (4.5-7.5) Ur Specific [place] (1.000-1.030) Urine Protein (Negative) Urine Glucose (UA) (Negative) Urine Ketones (Negative) Urine Blood (Negative) Urine Nitrite (Negative) Urine Bilirubin (Negative) Urine Urobilinogen (Negative) Ur Leukocyte Esterase (Negative) Urine WBC (Auto) (0-5) /hpf Urine RBC (Auto) (0-4) /hpf U Hyaline Cast (Auto) (0-5) /lpf U Epithel Cells (Auto) (0-5) /lpf Urine Bacteria (Auto) (Negative) Urine Yeast COVID-19 Eval Order SARS-CoV-2, RNA, NAAT NEGATIVE (NEGATIVE) 05/26/20 Range/Units 20:41 WBC (4.8-10.8) K/uL RBC (4.7-6.1) M/uL Hgb (14.0-18.0) g/dL POC Hgb (14.0-18.0) g/dl Hct (42-52) % POC Hct (42-52) % MCV (80-100) fL MCH (25-34) pg MCHC (32-36) g/dL RDW Std Deviation (36.4-46.3) fL RDW Coeff of Shadi (11.5-14.5) % Plt Count (130-400) K/uL MPV (7.4-10.4) fL Immature Gran % (Auto) % Neut % (Auto) % Lymph % (Auto) % [place] % (Auto) % Eos % (Auto) % Baso % (Auto) % Neut # (Auto) (1.4-6.5) K/uL Lymph # (Auto) (1.2-3.4) K/uL [place] # (Auto) (0.11-0.59) K/uL Eos # (Auto) (0-0.5) K/uL Baso # (Auto) (0-0.2) K/uL Immature Gran # (Auto) (0.00-0.02) K/uL PT (9.0-12.0) Seconds INR (0.9-1.1) APTT (21.0-31.0) Seconds PTT Ratio POC Sodium (135-144) mmol/L Sodium (136-145) mmol/L POC Potassium (3.3-5.0) mmol/L Potassium (3.5-5.1) mmol/L POC Chloride (101-112) mmol/L Chloride (98-107) mmol/L Carbon Dioxide (21-32) mmol/L POC Total CO2 (24-31) mmol/L Anion Gap (3-11) POC Anion Gap (16-25) mmol/L POC BUN (7-18) mg/dl BUN (7-18) mg/dl Creatinine (0.6-1.4) mg/dl POC Creatinine (0.6-1.3) mg/dl Est Cr Clr Drug Dosing ml/min Est GFR ( Amer) Est GFR (Non-Af Amer) BUN/Creatinine Ratio (10-20) Glucose (70-99) mg/dl POC Glucose (other) (70-99) mg/dl Lactate (0.4-2.0) mmol/L Calcium (8.5-10.1) mg/dl POC Ioniz Calcium Pepito (1.12-1.32) mmol/l Magnesium (1.8-2.4) mg/dl Total Bilirubin (0.2-1) mg/dl AST (15-37) U/L ALT (12-78) U/L Alkaline Phosphatase (45-117) U/L Troponin I (0-0.045) ng/ml Total Protein (6.4-8.2) gm/dl Albumin (3.4-5.0) gm/dl Globulin (2.5-4.0) gm/dl Albumin/Globulin Ratio (0.9-2) Procalcitonin (0-0.5) ng/ml Urine Color Yellow Urine Appearance Turbid A (Clear) Urine pH 7.0 (4.5-7.5) Ur Specific [place] 1.009 (1.000-1.030) Urine Protein 2+ H (Negative) Urine Glucose (UA) Negative (Negative) Urine Ketones Negative (Negative) Urine Blood 3+ H (Negative) Urine Nitrite Positive A (Negative) Urine Bilirubin Negative (Negative) Urine Urobilinogen Negative (Negative) Ur Leukocyte Esterase 3+ H (Negative) Urine WBC (Auto) >30 H (0-5) /hpf Urine RBC (Auto) >30 H (0-4) /hpf U Hyaline Cast (Auto) 0 (0-5) /lpf U Epithel Cells (Auto) 0-5 (0-5) /lpf Urine Bacteria (Auto) 2+ H (Negative) Urine Yeast Not Reportable COVID-19 Eval Order SARS-CoV-2, RNA, NAAT (NEGATIVE) Administered Medications Discontinued Medications Sodium Chloride (Nss 1000ml) 1,000 mls @ 999 mls/hr IV .Q1H1M ONE Stop: 05/26/20 18:55 Last Infusion: 05/26/20 19:16 Dose: 0 mls/hr Documented by: [id number] Admin: 05/26/20 18:11 Dose: 999 mls/hr Documented by: [id number] Ceftriaxone Sodium (Rocephin) 2,000 mg in 70 mls @ 140 mls/hr IV NOW STA Stop: 05/26/20 18:24 Last Infusion: 05/26/20 18:54 Dose: 0 mls/hr Documented by: [id number] Admin: 05/26/20 18:24 Dose: 140 mls/hr Documented by: [id number] Sodium Chloride (Nss 1000ml) 1,000 mls @ 999 mls/hr IV .Q1H1M ONE Stop: 05/26/20 20:18 Last Infusion: 05/26/20 20:41 Dose: 0 mls/hr Documented by: [id number] Admin: 05/26/20 19:20 Dose: 999 mls/hr Documented by: [id number] Cefepime HCl (Maxipime) 2,000 mg in 20 mls @ 5 mls/min IV NOW STA; Protocol Stop: 05/26/20 19:55 Last Admin: 05/26/20 20:10 Dose: 5 mls/min Documented by: [id number] Discharge Plan Visit Data Chief Complaint: Urinary Symptoms ED Provider: Fab Rogers Discharge Problem: Sepsis, Acute UTI, Hydronephrosis, Bladder outlet obstruction, Malfunction of Baires catheter Patient Disposition: Admitted As Inpatient Discharge Instructions Interventions: ED Discharge Assessment Last Done: 05/26/20 21:49 Discharge Problem: Sepsis Qualifiers: Sepsis type: sepsis due to unspecified organism Sepsis acute organ dysfunction status: unspecified Qualified Code(s): A41.9 - Sepsis, unspecified organism Hydronephrosis Qualifiers: Hydronephrosis type: unspecified Qualified Code(s): N13.30 - Unspecified hydronephrosis Malfunction of Baires catheter Qualifiers: Encounter type: initial encounter Qualified Code(s): T83.011A - Breakdown (mechanical) of indwelling urethral catheter, initial encounter
[2020-05-26 18:20] LABS: Hematocrit (blood only) 43.4 % (42-52); Hemoglobin 14.9 g/dL (14.0-18.0); Mean Corpuscular Hgb Conc 34.3 g/dL (32-36); Mean Corpuscular Volume 87.3 fL (80-100); Mean Platelet Volume 10.1 fL (7.4-10.4); Platelet Count 298 K/uL (130-400); RDW Coefficient of Variation 16.7 % (11.5-14.5); RDW Standard Deviation 53.2 fL (36.4-46.3); Red Blood Count 4.97 M/uL (4.7-6.1); White Blood Count 23.16 K/uL (4.8-10.8)
[2020-05-26 18:29] LABS: INR 1.3 (0.9-1.1); Partial Thromboplastin Ratio 1.3; Partial Thromboplastin Time 35.4 Seconds (21.0-31.0); Prothrombin Time 13.7 Seconds (9.0-12.0)
[2020-05-26 18:32] LABS: iSTAT Creatinine 4.5 mg/dl (0.6-1.3); iSTAT Hemoglobin 15.6 g/dl (14.0-18.0); iSTAT Ionized Calcium 1.06 mmol/l (1.12-1.32); iSTAT Potassium 4.9 mmol/L (3.3-5.0)
[2020-05-26 18:49] LABS: Basophils # (auto) 0.02 K/uL (0-0.2); Basophils % (auto) 0.1 %; Eosinophils # (auto) 0.02 K/uL (0-0.5); Eosinophils % (auto) 0.1 %; Immature Granulocytes # (auto) 0.08 K/uL (0.00-0.02); Immature Granulocytes % (auto) 0.3 %; Lymphocytes # (auto) 0.97 K/uL (1.2-3.4); Lymphocytes % (auto) 4.2 %; Monocytes % (auto) 7.3 %; Neutrophils # (auto) 20.37 K/uL (1.4-6.5)
[2020-05-26 18:51] LABS: Albumin Globulin Ratio 0.4 (0.9-2); Albumin Level 2.2 gm/dl (3.4-5.0); BUN Creatinine Ratio 17.1 (10-20); Bilirubin,Total 1.1 mg/dl (0.2-1); Calcium 8.8 mg/dl (8.5-10.1); Creatinine Clr Calc Pharmacy 17.2 ml/min; Est GFR (Non-African American) 11.2; Globulin 5.3 gm/dl (2.5-4.0); Magnesium 1.9 mg/dl (1.8-2.4); Potassium 4.8 mmol/L (3.5-5.1); Total Protein 7.5 gm/dl (6.4-8.2); Troponin I 0.172 ng/ml (0-0.045)
--- NOTE | 2020-05-26 19:32 | CT Scan Report ---
CT chest wo con, CT abd pelvis wo con CT DOSE: 3305.98 mGy.cm HISTORY: sepsis TECHNIQUE: Multiaxial CT images of the chest, abdomen, and pelvis were performed without contrast. A dose lowering technique was utilized adhering to the principles of ALARA. COMPARISON: Chest CT 08/21/2018. Abdomen and pelvis CT 02/13/2020. FINDINGS: Chest CT: Motion artifact. No pneumothorax. No pleural effusions. Mild bronchial wall thickening seen within the bilateral lower lobes. Mild interstitial thickening and small linear densities within the lung bases. This favors dependent change/atelectasis. A low-grade pneumonia is considered less likel y. No suspicious lytic or blastic osseous lesions. Moderate osteoarthritis within the right glenohume ral joint. The heart remains borderline enlarged. A few mildly enlarged upper right paratracheal lymp h nodes. These remain stable and are therefore likely benign. Dominant lymph node measures 1 cm in sh ort axis diameter. Normal caliber esophagus. Moderate calcified plaque within the coronary arteries. Normal caliber thoracic aorta. No hilar lymphadenopathy. Abdomen/pelvis: No pneumoperitoneum. No pneumatosis. There is a right total arthroplasty. Suboptimal evaluation due to the motion artifact. Nodular contour to the liver consistent with cirrhosis. Prior cholecystectomy. The unenhanced spleen, adrenal glands, and pancreas are unremarkable. Stable exophyt ic right renal lesions. Appears hyperdense and favors a hyperdense/proteinaceous cysts. The lower jackelin e lesion measures 3.3 cm and also appears slightly hyperdense. However, this is likely due to artifac t from the adjacent gantry. Mild bilateral hydroureteronephrosis. No ureteral stones. The bladder is moderately distended. There is bladder wall thickening and extensive fat stranding predominantly george g the anterior bladder. There is a large anterior bladder diverticulum measuring 5.6 cm. The balloon of the Baires catheter is located within the prostatic urethra. Therefore, this likely is causing a co mponent of bladder outlet obstruction. Suboptimal evaluation for bowel pathology due to the lack of i ntravenous and oral contrast. However, there is no definite bowel wall thickening or obstruction. Col onic diverticulosis. No evidence for acute diverticulitis. Normal appendix. IMPRESSION: 1. Mild bronchial wall thickening seen within the lower lobes. This is likely chronic. 2. Mild interstitial thickening and small linear density within the lung bases. This favors dependent change/atelectasis rather than a low-grade pneumonia. 3. There is mild bilateral hydroureteronephrosis in the bladder is moderately distended. The balloon of the Baires catheter is located within the prostatic urethra. Therefore, this is likely causing a co mponent of bladder outlet obstruction. 4. Bladder wall thickening with adjacent fat stranding most pronounced anteriorly. This likely repres ents a cystitis. 5. Additional findings as described above. ACT 112: Negative or not required by law. Electronically signed by: Karri Julio M.D. 05/26/2020 7:30 PM
--- NOTE | 2020-05-26 19:51 | XRay Report ---
XR chest 1V portable HISTORY: SEPSIS COMPARISON: Chest 02/13/2020. FINDINGS: Mild diffuse interstitial thickening is likely chronic. No pneumothorax. No pleural effusio ns. The heart is mildly enlarged. There is a few bibasilar linear densities. This favors dependent ch castillo/atelectasis. No evidence for pulmonary edema. IMPRESSION: 1. Stable mild cardiomegaly. 2. Mild diffuse interstitial thickening is likely chronic. 3. A few bibasilar densities which favor atelectasis/dependent change. ACT 112: Negative or not required by law. Electronically signed by: Karri Julio M.D. 05/26/2020 7:50 PM
[2020-05-26] MEDS ORDERED: CIPROFLOXACIN / D5W 400 MG/200 ML BAG IV STA (19:52)
[2020-05-26] MEDS ORDERED: CEFEPIME 2,000 MG/20 ML VIAL IV STA (19:52)
[2020-05-26 20:51] LABS: Appearance Urine Turbid (Clear); Bilirubin Urine Negative (Negative); Blood Urine 3+ (Negative); Color Urine Yellow; Glucose Urine UA Negative (Negative); Ketones Urine Negative (Negative); Leukocyte Esterase Urine 3+ (Negative); Nitrite Urine Positive (Negative); Protein Urine 2+ (Negative); RBC Urine Automated >30 /hpf (0-4); Specific Gravity Urine 1.009 (1.000-1.030); Urobilinogen Urine Negative (Negative); WBC Urine Automated >30 /hpf (0-5)
--- NOTE | 2020-05-26 20:59 | Urology Consultation ---
Date of Consultation May 26, 2020 Assessment & Plan (1) Urinary retention with incomplete bladder emptying: (2) Urinary tract infection: (3) Acquired buried penis: Treat UTI accordingly and schedule patient for catheter removal within 28 days would also periodically irrigate the Baires catheter to prevent her from obstructing History of Present Illness Reason for Consultation: Obstructed Baires catheter Requesting Physician: Ken History of Present Illness 79-year-old male with a history of an obstructed Baires catheter for the past 48 hours presents with a CT that shows bladder half full mild hydronephrosis and catheter that was unable to be irrigated. The x-ray reading was that the catheter was in the prostatic urethra but I am not sure this is the case. Patient has been transiently hypotensive and tachycardic. Patient is catheter was last changed 4 weeks ago is due for a change soon. Patient has a buried penis because of morbid obesity and requires a coud catheter. Was called to the emergency room because the emergency room staff did not feel comfortable changing the catheter. Attempted to irrigate it but it was clearly blocked push the catheter back in the bladder after deflating the balloon and reflecting it but could not irrigate it as nothing would go in or out. Remove the catheter and replaced a 16 coud without difficulty with drainage of 400 cc of cloudy urine did irrigate it was slightly bloody. CT scan did show some stranding around the bladder minimal hydronephrosis and moderately full bladder with a diverticulum patient not really communicative apparently has had Covid diagnosed earlier this month and was in the Covid unit and tested positively on the was going to be withdrawn from the unit and did test negative here. Change the catheter and nurses noted that he has significant decubiti ulcer on his buttocks area Allergies Allergy/AdvReac Type Severity Reaction Status Date / Time metronidazole Allergy Severe Unknown Verified 05/26/20 20:58 amoxicillin Allergy Intermediate Rash Verified 05/26/20 20:58 Home Medications Medication Instructions Recorded Confirmed Type ferrous sulfate 325 mg PO BID 06/16/18 05/26/20 History finasteride 5 mg PO DAILY 06/16/18 05/26/20 History metformin 500 mg PO QAM 06/16/18 05/26/20 History metoprolol succinate 200 mg PO DAILY 06/16/18 05/26/20 History pantoprazole 40 mg PO BID 06/16/18 05/26/20 History levetiracetam 500 mg PO BID 03/16/19 05/26/20 History Januvia 50 mg PO DAILY 06/17/19 05/26/20 History potassium chloride 10 meq PO DAILY 06/17/19 05/26/20 History aspirin [Aspirin Low Dose] 81 mg PO DAILY 11/10/19 05/26/20 History acetaminophen [Tylenol] 650 mg PO QID PRN MDD 3G 05/26/20 05/26/20 History atropine sulfate (PF) 2 drp Q1H PRN 05/26/20 05/26/20 History dextromethorphan-guaifenesin 10 ml PO Q4H PRN 05/26/20 05/26/20 History [Robitussin-DM] diclofenac sodium 2 g TOPICAL QID 05/26/20 05/26/20 History docusate sodium 200 mg PO HS 05/26/20 05/26/20 History levofloxacin [Levaquin] 750 mg PO DAILY 05/26/20 05/26/20 History lorazepam 0.5 mg PO Q6H PRN 05/26/20 05/26/20 History magnesium hydroxide [Milk of 30 ml PO DAILY PRN 05/26/20 05/26/20 History Magnesia] melatonin 3 mg PO HS 05/26/20 05/26/20 History mineral oil-isopropyl myristat 1 applic TOPICAL BID 05/26/20 05/26/20 History [Eucerin] morphine concentrate 10 mg SUBLINGUAL Q1H PRN 05/26/20 05/26/20 History multivitamin [Multiple Vitamin] 1 tab PO DAILY 05/26/20 05/26/20 History nystatin 1 applic TOPICAL TID 05/26/20 05/26/20 History nystatin 1 unit PO BID 05/26/20 05/26/20 History oxycodone 5 mg PO Q12H 05/26/20 05/26/20 History oxycodone 5 mg PO Q6H PRN 05/26/20 05/26/20 History polyethylene glycol 3350 [Miralax] 17 g PO DAILY 05/26/20 05/26/20 History promethazine 25 mg IM Q6H PRN 05/26/20 05/26/20 History promethazine 25 mg PO Q6H PRN 05/26/20 05/26/20 History torsemide 20 mg PO DAILY 05/26/20 05/26/20 History Patient History Medical History (Updated 05/26/20 @ 20:58 by Rosendo Dumont MD) 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 Acute urinary retention Atrial fibrillation with RVR Barretts esophagus Benign hypertension BPH without urinary obstruction Callus Chronic a-fib Chronic diastolic CHF (congestive heart failure) Chronic indwelling Baires catheter Chronic venous insufficiency Complicated UTI (urinary tract infection) 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, with fat layer exposed Diverticulosis of colon (without mention of hemorrhage) DM (diabetes mellitus), type 2, uncontrolled w/ophthalmic complication Esophageal candidiasis Exertional dyspnea Gastric ulcer with hemorrhage but without obstruction H/O Clostridium difficile infection Hemangioma of skin History of chronic atrial fibrillation Hypertension Hypoxia ICH (intracerebral hemorrhage) Morbid obesity Open wound of scrotum JUAN MANUEL (obstructive sleep apnea) Peripheral arterial disease Rhabdomyolysis Scrotal varicose veins Skin ulcer of left foot including toes Symptomatic anemia Urinary retention Surgical History History of total replacement of right hip S/P cholecystectomy S/P tonsillectomy and adenoidectomy Family History Other No significant family history Social History Smoking Status: Unknown if ever smoked Second Hand Exposure: No; Hx Alcohol Use: No Hx Substance Use: No Preferred Language: [place] 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 Ability: Effective Mechanic Chief Required: No Beliefs That Will Affect Care: None marital status: Current Living Situation: Spouse Current Living Situation Comment: Home with spouse Feels Safe at Home: Yes Assistive Devices: Oxygen - Continuous and Walker Physical Exam Constitutional: WD/WN, vitals as above + morbidly obese, + disheveled and + in distress Eyes: PERRL, conjunctivae normal, anicteric sclerae Respiratory: normal respiratory effort Gastrointestinal (Abdomen): Percussion/Palpation: + abdomen tender Musculoskeletal: Extremities: + limited ROM of extremities Skin: Trauma: + evidence of skin trauma Decubitus ulcer on his buttock area Neurologic: Speech / Cognition: + abnormal cognition Genitourinary: Patient has a dot where the Baires catheter comes out which appears to be where the scrotal skin is fused with that meatus of his buried penis. Was able to remove the catheter in place the catheter 16 daily down this tube without difficulty and irrigated slightly bloody urine from this area sent urine for culture Results & Data ([facility]) Vital Signs (Past 12 Hours) Vital Signs Temp Pulse Pulse Resp BP BP Pulse Ox 05/26/20 20:11 106 H 18 100/70 100 05/26/20 19:31 106 H 19 94/48 L 96 05/26/20 19:15 115 H 15 85/51 L 95 05/26/20 18:30 118 H 20 108/86 96 05/26/20 18:21 96 05/26/20 17:44 36.7 C 123 H 20 140/128 H 88 L PG Care Time/CCT Total # of Minutes Spent Total Time Spent with Patient: Total time spent is greater than 50% in coordination of care (as documented) at patient's floor/unit and/or counseling patient: 60 minutes Coding Level of Care Code 73944 Office/Outpt Visit, New Diagnoses Urinary retention with incomplete bladder emptying R33.9 Urinary tract infection N30.01 Hematuria presence: with hematuria Urinary tract infection type: acute cystitis Acquired buried penis N48.83 (1) Urinary tract infection Hematuria presence: with hematuria Urinary tract infection type: acute cystitis Qualified Code(s): N30.01 - Acute cystitis with hematuria
[2020-05-26 21:08] LABS: Cast Urine Automated 0 /lpf (0-5); Epithelial Cell Urine Auto 0-5 /lpf (0-5)
[2020-05-26 21:09] LABS: Bacteria Urine Automated 2+ (Negative)
--- NOTE | 2020-05-26 21:15 | History & Physical Report ---
Date of Service May 26, 2020 Assessment & Plan (1) Non-STEMI (non-ST elevated myocardial infarction): Non-STEMI/atrial fibrillation/chronic diastolic CHF- The patient will be admitted to telemetry for serial cardiac enzymes, serial EKG's, cardiac rhythm monitoring and a 2-D echocardiogram with Dopplers. Received 2 L normal saline in the ED. Hold torsemide, potassium chloride and metoprolol succinate. Lopressor 5 mg IV every 4 hours as needed systolic blood pressure greater than 160 or heart rate greater than 110 Hold oral medications for now due to lethargy. Consult cardiology Present on Admission?: Yes (2) Sepsis: Sepsis due to catheter associated UTI/chronic indwelling Baires catheter/acquired buried penis/BPH with LUTS- Blood pressure has responded to 2 L normal saline. We will continue normal saline at 100 mils per hour Recurrent UTIs include the followin06/18/2019 Morganella, 11/10/2019 Klebsiella, and 02/13/2020 Pseudomonas resistant to aztreonam and intermediate to gentamicin. Patient is allergic to amoxicillin. Continue cefepime 1 g IV every 12 hours begun in the ED. Follow urine culture and sensitivities Patient was seen by Dr. Dumont from urology while in the ED, and had Baires catheter adjusted so no longer in the prostatic urethra. Present on Admission?: Yes (3) Acquired buried penis: See above Present on Admission?: Yes (4) Urinary retention with incomplete bladder emptying: See above Present on Admission?: Yes (5) Catheter-associated urinary tract infection: See above Present on Admission?: Yes (6) BPH w urinary obs/LUTS: See above Present on Admission?: Yes (7) Acute kidney injury: Creatinine 4.62 upon admission, with most recent 1.3. Received 2 L normal saline in the ED, and will be continued at 100 mL's per hour. Repeat laboratories in a.m. Present on Admission?: Yes (8) Atrial fibrillation: See above Present on Admission?: Yes History of Present Illness Chief Complaint: The patient is referred from [facility], where he had recovered from coronavirus illness, initially testing positive on 05/04/2020, and since has become more lethargic with increased heart rate, which is now felt to be due more to urologic issues and his chronic indwelling Baires catheter. Primary Care Provider: [facility] The patient is a 79-year-old male with a past medical history including acquired buried penis, urinary retention with incomplete bladder emptying, acute kidney injury, genital hemangioma, chronic pain syndrome, obesity, liver cirrhosis, a cute diastolic CHF, abdominal wall cellulitis, scrotal cellulitis, catheter associated urinary tract infection, gram-negative sepsis, gram-negative bacteremia, diabetes mellitus, diabetic polyneuropathy, demand ischemia, seizures, sepsis, atrial fibrillation with RVR, hyperlipidemia, BPH with LUTS, history of C. difficile, history of ureteral stent, intramuscular hematoma, stage II pressure ulcer of buttock, JUAN MANUEL, pneumonia, chronic venous insufficiency, acute encephalopathy, seizure, esophageal candidiasis, unsteady gait, peripheral arterial disease, ICU admission, rhabdomyolysis, diabetic toe ulcer, Horvath's esophagus, ICH, gastric ulcer with hemorrhage, hypertension, right hip total arthroplasty and morbid obesity. The patient presents to the emergency department as noted above. CT of the abdomen and pelvis tonight showed a distended bladder wall suggesting cystitis, with bilateral hydroureteronephrosis and Baires catheter within the prostatic urethra likely causing obstruction. Laboratories included the following: WBC 23.16, BUN 79, creatinine 4.62, lactate 2.3, troponin 0 0.172, albumin 2.2, GFR 11.2 and pro calcitonin 4.53. Allergies Allergy/AdvReac Type Severity Reaction Status Date / Time metronidazole Allergy Severe Unknown Verified 05/26/20 20:58 amoxicillin Allergy Intermediate Rash Verified 05/26/20 20:58 Home Medications Medication Instructions Recorded Confirmed Type ferrous sulfate 325 mg PO BID 06/16/18 05/26/20 History finasteride 5 mg PO DAILY 06/16/18 05/26/20 History metformin 500 mg PO QAM 06/16/18 05/26/20 History metoprolol succinate 200 mg PO DAILY 06/16/18 05/26/20 History pantoprazole 40 mg PO BID 06/16/18 05/26/20 History levetiracetam 500 mg PO BID 03/16/19 05/26/20 History Januvia 50 mg PO DAILY 06/17/19 05/26/20 History potassium chloride 10 meq PO DAILY 06/17/19 05/26/20 History aspirin [Aspirin Low Dose] 81 mg PO DAILY 11/10/19 05/26/20 History acetaminophen [Tylenol] 650 mg PO QID PRN MDD 3G 05/26/20 05/26/20 History atropine sulfate (PF) 2 drp Q1H PRN 05/26/20 05/26/20 History dextromethorphan-guaifenesin 10 ml PO Q4H PRN 05/26/20 05/26/20 History [Robitussin-DM] diclofenac sodium 2 g TOPICAL QID 05/26/20 05/26/20 History docusate sodium 200 mg PO HS 05/26/20 05/26/20 History levofloxacin [Levaquin] 750 mg PO DAILY 05/26/20 05/26/20 History lorazepam 0.5 mg PO Q6H PRN 05/26/20 05/26/20 History magnesium hydroxide [Milk of 30 ml PO DAILY PRN 05/26/20 05/26/20 History Magnesia] melatonin 3 mg PO HS 05/26/20 05/26/20 History mineral oil-isopropyl myristat 1 applic TOPICAL BID 05/26/20 05/26/20 History [Eucerin] morphine concentrate 10 mg SUBLINGUAL Q1H PRN 05/26/20 05/26/20 History multivitamin [Multiple Vitamin] 1 tab PO DAILY 05/26/20 05/26/20 History nystatin 1 applic TOPICAL TID 05/26/20 05/26/20 History nystatin 1 unit PO BID 05/26/20 05/26/20 History oxycodone 5 mg PO Q12H 05/26/20 05/26/20 History oxycodone 5 mg PO Q6H PRN 05/26/20 05/26/20 History polyethylene glycol 3350 [Miralax] 17 g PO DAILY 05/26/20 05/26/20 History promethazine 25 mg IM Q6H PRN 05/26/20 05/26/20 History promethazine 25 mg PO Q6H PRN 05/26/20 05/26/20 History torsemide 20 mg PO DAILY 05/26/20 05/26/20 History Past Med/Surg History Medical History (Updated 05/26/20 @ 22:38 by Govind Jay MD) 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 Acute urinary retention Atrial fibrillation with RVR Barretts esophagus Benign hypertension BPH without urinary obstruction Callus Chronic a-fib Chronic diastolic CHF (congestive heart failure) Chronic indwelling Baires catheter Chronic venous insufficiency Complicated UTI (urinary tract infection) 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, with fat layer exposed Diverticulosis of colon (without mention of hemorrhage) DM (diabetes mellitus), type 2, uncontrolled w/ophthalmic complication Esophageal candidiasis Exertional dyspnea Gastric ulcer with hemorrhage but without obstruction H/O Clostridium difficile infection Hemangioma of skin History of chronic atrial fibrillation Hypertension Hypoxia ICH (intracerebral hemorrhage) Morbid obesity Open wound of scrotum JUAN MANUEL (obstructive sleep apnea) Peripheral arterial disease Rhabdomyolysis Scrotal varicose veins Skin ulcer of left foot including toes Symptomatic anemia Urinary retention Surgical History History of total replacement of right hip S/P cholecystectomy S/P tonsillectomy and adenoidectomy Family History Other No significant family history Social History Smoking Status: Never smoker Second Hand Exposure: No; Hx Alcohol Use: No Hx Substance Use: No Preferred Language: Amharic 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 Ability: Effective Licensing Representative Required: No Beliefs That Will Affect Care: None marital status: Current Living Situation: Custodial Current Living Situation Comment: Home with spouse Feels Safe at Home: Yes Assistive Devices: Glasses Review of Systems Review of Systems: Unobtainable due to cognitive status T Physical Exam Physical Exam: The patient is lethargic, normocephalic and atraumatic, lying in bed and in mild distress. HEENT--PERRL, EOMI, mucous membranes and oropharynx dry. Neck--supple. No JVD. No bruits. Thyroid normal, trachea midline, no adenopathy. Heart--normal S1 and S2. No murmurs, rubs or gallops. Lungs--clear bilaterally, no respiratory distress, no accessory muscle use. Abdomen--normal bowel sounds and soft. Nontender. Nondistended. Morbidly obese Extremities--no cyanosis or clubbing. No edema. Dermatologic--normal skin turgor, normal color, no abnormal lymph nodes, no rash. Neurologic--cranial nerves II through XII grossly intact. Rheumatologic--limited exam Psychiatric--lethargic Results & Data Results & Data ([facility]) Vital Signs (Past 12 Hours) Vital Signs Temp Pulse Pulse Resp BP BP Pulse Ox 05/26/20 21:07 107 H 19 95/84 L 97 05/26/20 20:11 106 H 18 100/70 100 05/26/20 19:31 106 H 19 94/48 L 96 05/26/20 19:15 115 H 15 85/51 L 95 05/26/20 18:30 118 H 20 108/86 96 05/26/20 18:21 96 05/26/20 17:44 98.1 F 123 H 20 140/128 H 88 L Laboratory Results Laboratory Results WBC 23.16 K/uL (4.8-10.8) H 05/26/20 18:08 RBC 4.97 M/uL (4.7-6.1) 05/26/20 18:08 Hgb 14.9 g/dL (14.0-18.0) 05/26/20 18:08 POC Hgb 15.6 g/dl (14.0-18.0) 05/26/20 18:17 Hct 43.4 % (42-52) 05/26/20 18:08 POC Hct 46 % (42-52) 05/26/20 18:17 MCV 87.3 fL (80-100) 05/26/20 18:08 MCH 30.0 pg (25-34) 05/26/20 18:08 MCHC 34.3 g/dL (32-36) 05/26/20 18:08 RDW Std Deviation 53.2 fL (36.4-46.3) H 05/26/20 18:08 RDW Coeff of Shadi 16.7 % (11.5-14.5) H 05/26/20 18:08 Plt Count 298 K/uL (130-400) 05/26/20 18:08 MPV 10.1 fL (7.4-10.4) 05/26/20 18:08 Immature Gran % (Auto) 0.3 % 05/26/20 18:08 Neut % (Auto) 88.0 % 05/26/20 18:08 Lymph % (Auto) 4.2 % 05/26/20 18:08 [place] % (Auto) 7.3 % 05/26/20 18:08 Eos % (Auto) 0.1 % 05/26/20 18:08 Baso % (Auto) 0.1 % 05/26/20 18:08 Neut # (Auto) 20.37 K/uL (1.4-6.5) H 05/26/20 18:08 Lymph # (Auto) 0.97 K/uL (1.2-3.4) L 05/26/20 18:08 [place] # (Auto) 1.70 K/uL (0.11-0.59) H 05/26/20 18:08 Eos # (Auto) 0.02 K/uL (0-0.5) 05/26/20 18:08 Baso # (Auto) 0.02 K/uL (0-0.2) 05/26/20 18:08 Immature Gran # (Auto) 0.08 K/uL (0.00-0.02) H 05/26/20 18:08 PT 13.7 Seconds (9.0-12.0) H 05/26/20 18:08 INR 1.3 (0.9-1.1) H 05/26/20 18:08 APTT 35.4 Seconds (21.0-31.0) H 05/26/20 18:08 PTT Ratio 1.3 05/26/20 18:08 POC Sodium 134 mmol/L (135-144) L 05/26/20 18:17 Sodium 134 mmol/L (136-145) L 05/26/20 18:08 POC Potassium 4.9 mmol/L (3.3-5.0) 05/26/20 18:17 Potassium 4.8 mmol/L (3.5-5.1) 05/26/20 18:08 POC Chloride 102 mmol/L (101-112) 05/26/20 18:17 Chloride 101 mmol/L (98-107) 05/26/20 18:08 Carbon Dioxide 21 mmol/L (21-32) 05/26/20 18:08 POC Total CO2 21 mmol/L (24-31) L 05/26/20 18:17 Anion Gap 12.0 (3-11) H 05/26/20 18:08 POC Anion Gap 17.0 mmol/L (16-25) 05/26/20 18:17 POC BUN 66 mg/dl (7-18) H 05/26/20 18:17 BUN 79 mg/dl (7-18) H 05/26/20 18:08 Creatinine 4.62 mg/dl (0.6-1.4) H* 05/26/20 18:08 POC Creatinine 4.5 mg/dl (0.6-1.3) H 05/26/20 18:17 Est Cr Clr Drug Dosing 17.2 ml/min 05/26/20 18:08 Est GFR ( Amer) 13.0 05/26/20 18:08 Est GFR (Non-Af Amer) 11.2 05/26/20 18:08 BUN/Creatinine Ratio 17.1 (10-20) 05/26/20 18:08 Glucose 123 mg/dl (70-99) H 05/26/20 18:08 POC Glucose (other) 122 mg/dl (70-99) H 05/26/20 18:17 Lactate 1.5 mmol/L (0.4-2.0) 05/26/20 20:14 Calcium 8.8 mg/dl (8.5-10.1) 05/26/20 18:08 POC Ioniz Calcium Pepito 1.06 mmol/l (1.12-1.32) L 05/26/20 18:17 Magnesium 1.9 mg/dl (1.8-2.4) 05/26/20 18:08 Total Bilirubin 1.1 mg/dl (0.2-1) H 05/26/20 18:08 AST 21 U/L (15-37) 05/26/20 18:08 ALT 11 U/L (12-78) L 05/26/20 18:08 Alkaline Phosphatase 104 U/L (45-117) 05/26/20 18:08 Troponin I 0.172 ng/ml (0-0.045) H* 05/26/20 18:08 Total Protein 7.5 gm/dl (6.4-8.2) 05/26/20 18:08 Albumin 2.2 gm/dl (3.4-5.0) L 05/26/20 18:08 Globulin 5.3 gm/dl (2.5-4.0) H 05/26/20 18:08 Albumin/Globulin Ratio 0.4 (0.9-2) L 05/26/20 18:08 Procalcitonin 4.53 ng/ml (0-0.5) H 11/24/20 18:08 Urine Color Yellow 05/26/20 20:41 Urine Appearance Turbid (Clear) A 05/26/20 20:41 Urine pH 7.0 (4.5-7.5) 05/26/20 20:41 Ur Specific [place] 1.009 (1.000-1.030) 05/26/20 20:41 Urine Protein 2+ (Negative) H 05/26/20 20:41 Urine Glucose (UA) Negative (Negative) 05/26/20 20:41 Urine Ketones Negative (Negative) 05/26/20 20:41 Urine Blood 3+ (Negative) H 05/26/20 20:41 Urine Nitrite Positive (Negative) A 05/26/20 20:41 Urine Bilirubin Negative (Negative) 05/26/20 20:41 Urine Urobilinogen Negative (Negative) 05/26/20 20:41 Ur Leukocyte Esterase 3+ (Negative) H 05/26/20 20:41 Urine WBC (Auto) >30 /hpf (0-5) H 05/26/20 20:41 Urine RBC (Auto) >30 /hpf (0-4) H 05/26/20 20:41 U Hyaline Cast (Auto) 0 /lpf (0-5) 05/26/20 20:41 U Epithel Cells (Auto) 0-5 /lpf (0-5) 05/26/20 20:41 Urine Bacteria (Auto) 2+ (Negative) H 05/26/20 20:41 Urine Yeast Not Reportable 05/26/20 20:41 COVID-19 Eval Order Covid19 IDNow [facility] 05/26/20 18:15 SARS-CoV-2, RNA, NAAT NEGATIVE (NEGATIVE) 05/26/20 18:15 Diagnostic Findings [facility], [phone] XRay Report Patient: CUAUHTEMOC LOUIS LAdtamra Date: 05/26/20MR#: [id number]: [address] Sher[address] ID:[id number]: VANDALIA [facility]STB[facility]: [address] Zip: [place] [address]Nzs: 79Location: EDSex: MRoom/Bed:Att Phy:Diagnosis: URINARY SYMPTOMSPri Phy: [place], CrestService Date: 05/26/20Fam Phy:Interpreting Phy: Karri Julio MDAdmit Phy: Ordering Phy: Fab Rogers DO cc: ~ XR chest 1V portable HISTORY: SEPSIS COMPARISON: Chest 02/13/2020. FINDINGS: Mild diffuse interstitial thickening is likely chronic. No pneumothorax. No pleural effusions. The heart is mildly enlarged. There is a few bibasilar linear densities. This favors dependent change/atelectasis. No evide nce for pulmonary edema. IMPRESSION: 1. Stable mild cardiomegaly. 2. Mild diffuse interstitial thickening is likely chronic. 3. A few bibasilar densities which favor atelectasis/dependent change. ACT 112: Negative or not required by law. Electronically signed by: Karri Julio M.D. 05/26/2020 7:50 PM Dictated: 05/26/201948Transcribed: 05/26/201948 [facility], [phone] CT Scan Report Patient: CUAUHTEMOC LOUIS Date: 05/26/20#: [id number]: [address] [facility] ID:[id number]: VANDALIA CRESTB[facility]: [address] Zip: [place] [address]Bby: [phone]: EDSex: MRoom/Bed:Att Phy:Diagnosis: URINARY SYMPTOMSPri Phy: [place] WarrenServic Date: 05/26/20Fa Phy:Interpreting Phy: Karri Julio MDAdmit Phy: Ordering Phy: Fab Rogers DO cc: ~ CT chest wo con, CT abd pelvis wo con CT DOSE: 3305.98 mGy.cm HISTORY: sepsis TECHNIQUE: Multiaxial CT images of the chest, abdomen, and pelvis were performed without contrast. A dose lowering technique was utilized adhering to the principles of ALARA. COMPARISON: Chest CT 08/21/2018. Abdomen and pelvis CT 02/13/2020. FINDINGS: Chest CT: Motion artifact. No pneumothorax. No pleural effusions. Mild bronchial wall thickening seen within the bilateral lower lobes. Mild interstitial thickening and small linear densities within the lung bases. This favors dependent change/atelectasis. A low-grade pneumonia is considered less likely. No suspicious lytic or blastic osseous lesions. Moderate osteoarthritis within the right glenohumeral joint. The heart remains borderline enlarged. A few mildly enlarged upper right paratracheal lymph nodes. These remain stable and are therefore likely benign. Dominant lymph node measures 1 cm in short axis diameter. Normal caliber esophagus. Moderate calcified plaque within the coronary arteries. Normal caliber thoracic aorta. No hilar lymphadenopathy. Abdomen/pelvis: No pneumoperitoneum. No pneumatosis. There is a right total arthroplasty. Suboptimal evaluation due to the motion artifact. Nodular contour to the liver consistent with cirrhosis. Prior cholecystectomy. The unenhanced spleen, adrenal glands, and pancreas are unremarkable. Stable exophytic right renal lesions. Appears hyperdense and favors a hyperdense/proteinaceous cysts. The lower pole lesion measures 3.3 cm and also appears slightly hyperdense. However, this is likely due to artifact from the adjacent gantry. Mild bilateral hydroureteronephrosis. No ureteral stones. The bladder is moderately distended. There is bladder wall thickening and extensive fat stranding predominantly along the anterior bladder. There is a large anterior bladder diverticulum measuring 5.6 cm. The balloon of the Baires catheter is located within the pro static urethra. Therefore, this likely is causing a component of bladder outlet obstruction. Suboptimal evaluation for bowel pathology due to the lack of intravenous and oral contrast. However, there is no definite bowel wall thickening or obstruction. Colonic diverticulosis. No evidence for acute diverticulitis. Normal appendix. IMPRESSION: 1. Mild bronchial wall thickening seen within the lower lobes. This is likely chronic. 2. Mild interstitial thickening and small linear density within the lung bases. This favors dependent change/atelectasis rather than a low-grade pneumonia. 3. There is mild bilateral hydroureteronephrosis in the bladder is moderately distended. The balloon of the Baires catheter is located within the prostatic urethra. Therefore, this is likely causing a component of bladder outlet obstruction. 4. Bladder wall thickening with adjacent fat stranding most pronounced anteriorly. This likely represents a cystitis. 5. Additional findings as described above. ACT 112: Negative or not required by law. Electronically signed by: Karri Julio M.D. 05/26/2020 7:30 PM Dictated: 05/26/201917Transcribed: 11/24/20 1918 Code Status & VTE Plan Code Status Full code VTE Prophylaxis Plan VTE Prophylaxis will be ordered: Yes PG Care Time/CCT Total # of Minutes Spent Total Time Spent with Patient: Total time spent is greater than 50% in coordination of care (as documented) at patient's floor/unit and/or counseling patient: Coding Level of Care Code 52004 Initial Inpt Care Lvl 3 Diagnoses Non-STEMI (non-ST elevated myocardial infarction) I21.4 Sepsis A41.9; R65.20 Sepsis acute organ dysfunction status: with acute organ dysfunction Sepsis type: sepsis due to unspecified organism Severe sepsis acute organ dysfunction type: unspecified Severe sepsis shock status: without septic shock Acquired buried penis N48.83 Urinary retention with incomplete bladder emptying R33.9 Catheter-associated urinary tract infection T83.511A; N39.0 Encounter type: initial encounter Indwelling urinary catheter type: indwelling urethral catheter BPH w urinary obs/LUTS N40.1; N13.8 Acute kidney injury N17.9 Atrial fibrillation I48.91 (1) Catheter-associated urinary tract infection Encounter type: initial encounter Indwelling urinary catheter type: indwelling urethral catheter Qualified Code(s): T83.511A - Infection and inflammatory reaction due to indwelling urethral catheter, initial encounter; N39.0 - Urinary tract infection, site not specified (2) Sepsis Sepsis acute organ dysfunction status: with acute organ dysfunction Sepsis type: sepsis due to unspecified organism Severe sepsis acute organ dysfunction type: unspecified Severe sepsis shock status: without septic shock Qualified Code(s): A41.9 - Sepsis, unspecified organism; R65.20 - Severe sepsis without septic shock
[2020-05-26] MEDS ORDERED: MAGNESIUM HYDROXIDE SUSP 30 ML UDC PO PRN (22:26)
[2020-05-26] MEDS ORDERED: NYSTATIN OINT 15 GM TUBE EXT SCH (22:26)
[2020-05-26] MEDS ORDERED: ONDANSETRON INJ 2 MG/ML 2 ML VIAL IV PRN (22:26)
[2020-05-26] MEDS ORDERED: ATROPINE SULFATE 1% OP SOLN 5 ML BTL OP PRN (22:33)
[2020-05-26] MEDS ORDERED: NYSTATIN POWDER 15GM BTL EXT PRN (22:39)
[2020-05-26] MEDS ORDERED: INFLUENZA VIRUS QUAD VACCINE 0.5 ML SYR IM ONE (22:44)
[2020-05-26] MEDS ORDERED: INFLUENZA ADMINISTRATION CHARGE ONE (22:44)
[2020-05-26] MEDS: PANTOprazole 40 MG TAB PO SCH (23:28)
[2020-05-26] MEDS: HEPARIN SOD 5,000 UNIT/0.5 ML VIAL SQ SCH (23:28)
[2020-05-26] MEDS: SODIUM CHLORIDE 0.9% 1000ML 1,000 ML IV SCH (23:28)
[2020-05-26] MEDS: MELATONIN 3 MG TAB PO SCH (23:30)
[2020-05-26] MEDS: DOCUSATE SODIUM 100 MG CAP PO SCH (23:30)
[2020-05-26] MEDS: levETIRAcetam 500 MG TAB PO SCH (23:30)
[2020-05-27] MEDS: HEPARIN SOD 5,000 UNIT/0.5 ML VIAL SQ SCH ×3 (05:07→21:28)
[2020-05-27 05:37] LABS: Hematocrit (blood only) 42.3 % (42-52); Hemoglobin 13.9 g/dL (14.0-18.0); Mean Corpuscular Hgb Conc 32.9 g/dL (32-36); Mean Corpuscular Volume 88.3 fL (80-100); Mean Platelet Volume 9.9 fL (7.4-10.4); Platelet Count 236 K/uL (130-400); RDW Coefficient of Variation 16.9 % (11.5-14.5); RDW Standard Deviation 54.7 fL (36.4-46.3); Red Blood Count 4.79 M/uL (4.7-6.1); White Blood Count 23.04 K/uL (4.8-10.8)
[2020-05-27 05:39] LABS: INR 1.3 (0.9-1.1); Prothrombin Time 13.7 Seconds (9.0-12.0)
[2020-05-27 05:58] LABS: Basophils # (auto) 0.02 K/uL (0-0.2); Basophils % (auto) 0.1 %; Eosinophils # (auto) 0.02 K/uL (0-0.5); Eosinophils % (auto) 0.1 %; Immature Granulocytes # (auto) 0.09 K/uL (0.00-0.02); Immature Granulocytes % (auto) 0.4 %; Lymphocytes # (auto) 0.74 K/uL (1.2-3.4); Lymphocytes % (auto) 3.2 %; Monocytes # (auto) 1.31 K/uL (0.11-0.59); Monocytes % (auto) 5.7 %; Neutrophils # (auto) 20.86 K/uL (1.4-6.5); Neutrophils % (auto) 90.5 %; RBC Morphology Unremarkable
[2020-05-27] MEDS: METOPROLOL TARTRATE 1 MG/ML VIAL IV PRN ×4 (06:00→21:50)
[2020-05-27] MEDS: MoRPHine SULFATE 10 MG/0.5 ML UDP SL PRN ×2 (06:01→15:44)
[2020-05-27 06:09] LABS: Albumin Level 1.9 gm/dl (3.4-5.0); BUN Creatinine Ratio 20.3 (10-20); Calcium 7.9 mg/dl (8.5-10.1); Creatinine Clr Calc Pharmacy 20.2 ml/min; Est GFR (African American) 15.8; Est GFR (Non-African American) 13.6; Magnesium 1.9 mg/dl (1.8-2.4); Potassium 4.3 mmol/L (3.5-5.1)
[2020-05-27 06:14] LABS: Albumin Globulin Ratio 0.4 (0.9-2); Bilirubin,Total 0.7 mg/dl (0.2-1); Globulin 5.1 gm/dl (2.5-4.0); Troponin I 0.179 ng/ml (0-0.045)
[2020-05-27] MEDS: PANTOprazole 40 MG TAB PO SCH ×2 (08:09→19:57)
[2020-05-27] MEDS: MULTIVITAMIN TAB PO SCH (08:09)
[2020-05-27] MEDS: levETIRAcetam 500 MG TAB PO SCH ×2 (08:09→19:57)
[2020-05-27] MEDS: METOPROLOL SUCC 50MG EXT REL TAB PO SCH (08:10)
[2020-05-27] MEDS: ASPIRIN 81 MG ECTAB PO SCH (08:13)
[2020-05-27] MEDS: FERROUS SULFATE 325 MG TAB PO SCH ×2 (08:13→19:56)
[2020-05-27] MEDS: EUCERIN CR 120 GM JAR EXT SCH ×2 (08:14→20:01)
[2020-05-27] MEDS: POLYETHYLENE (MIRALAX) 17 GM PACK PO SCH (08:15)
[2020-05-27] MEDS: FINASTERIDE 5 MG TAB PO SCH (08:15)
[2020-05-27] MEDS: SODIUM CHLORIDE 0.9% 1000ML 1,000 ML IV SCH ×2 (09:39→17:51)
--- NOTE | 2020-05-27 09:41 | Cardiology Consultation ---
Date of Consultation May 27, 2020 Assessment & Plan (1) Atrial fibrillation with RVR: (2) Elevated troponin I level: (3) Sepsis due to Gram negative bacteria: 79-year-old patient admitted with acute renal failure secondary to obstructive uropathy, urosepsis, and hypotension. He appears volume depleted. Agree with IV hydration at this time. Troponin is mildly elevated due to acute renal failure in the setting of atrial fibrillation with rapid ventricular response. No evidence of acute coronary syndrome. Rapid atrial fibrillation secondary to gram-negative sepsis and hypovolemia. We will continue to monitor heart rate after receiving a.m. dose of metoprolol succinate, 200 mg. Consider addition of low-dose intravenous diltiazem infusion at 5 mg/h without titration pending clinical response. He may require a single dose of IV digoxin pending ongoing blood pressure ass essment. Patient is not a candidate for long-term anticoagulation. History of Present Illness Reason for Consultation: Elevated troponin Rapid atrial fibrillation Requesting Physician: Dr. Jay Attending Physician: Trish Elkins DO History of Present Illness Patient seen and examined at the bedside. Admitted from [facility] due to confusion. Diagnosed with acute renal failure, rapid A. fib, dehydration in the ER. CT of the chest demonstrated bilateral hydroureteronephrosis with bladder distention. Findings consistent with bladder outlet obstruction. Patient Baires catheter repositioned by urology. He is confused. Denies chest pain or shortness of breath. Diagnosed with COVID-19 in early May. Telemetry demonstrates atrial fibrillation with heart rate ranging from 110 to 130 bpm. 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 Oxygen saturation currently stable on 4 L nasal cannula. Allergies Allergy/AdvReac Type Severity Reaction Status Date / Time metronidazole Allergy Severe Unknown Verified 05/26/20 20:58 amoxicillin Allergy Intermediate Rash Verified 05/26/20 20:58 Home Medications Medication Instructions Recorded Confirmed Type ferrous sulfate 325 mg PO BID 06/16/18 05/26/20 History finasteride 5 mg PO DAILY 06/16/18 05/26/20 History metformin 500 mg PO QAM 06/16/18 05/26/20 History metoprolol succinate 200 mg PO DAILY 06/16/18 05/26/20 History pantoprazole 40 mg PO BID 06/16/18 05/26/20 History levetiracetam 500 mg PO BID 03/16/19 05/26/20 History Januvia 50 mg PO DAILY 06/17/19 05/26/20 History potassium chloride 10 meq PO DAILY 06/17/19 05/26/20 History aspirin [Aspirin Low Dose] 81 mg PO DAILY 11/10/19 05/26/20 History acetaminophen [Tylenol] 650 mg PO QID PRN MDD 3G 05/26/20 05/26/20 History atropine sulfate (PF) 2 drp Q1H PRN 05/26/20 05/26/20 History dextromethorphan-guaifenesin 10 ml PO Q4H PRN 05/26/20 05/26/20 History [Robitussin-DM] diclofenac sodium 2 g TOPICAL QID 05/26/20 05/26/20 History docusate sodium 200 mg PO HS 05/26/20 05/26/20 History levofloxacin [Levaquin] 750 mg PO DAILY 05/26/20 05/26/20 History lorazepam 0.5 mg PO Q6H PRN 05/26/20 05/26/20 History magnesium hydroxide [Milk of 30 ml PO DAILY PRN 05/26/20 05/26/20 History Magnesia] melatonin 3 mg PO HS 05/26/20 05/26/20 History mineral oil-isopropyl myristat 1 applic TOPICAL BID 05/26/20 05/26/20 History [Eucerin] morphine concentrate 10 mg SUBLINGUAL Q1H PRN 05/26/20 05/26/20 History multivitamin [Multiple Vitamin] 1 tab PO DAILY 05/26/20 05/26/20 History nystatin 1 applic TOPICAL TID 05/26/20 05/26/20 History nystatin 1 unit PO BID 05/26/20 05/26/20 History oxycodone 5 mg PO Q12H 05/26/20 05/26/20 History oxycodone 5 mg PO Q6H PRN 05/26/20 05/26/20 History polyethylene glycol 3350 [Miralax] 17 g PO DAILY 05/26/20 05/26/20 History promethazine 25 mg IM Q6H PRN 05/26/20 05/26/20 History promethazine 25 mg PO Q6H PRN 05/26/20 05/26/20 History torsemide 20 mg PO DAILY 05/26/20 05/26/20 History Patient History Medical History (Updated 05/27/20 @ 09:53 by Parish Lopez DO) 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 Acute urinary retention Atrial fibrillation with RVR Barretts esophagus Benign hypertension BPH without urinary obstruction Callus Chronic a-fib Chronic diastolic CHF (congestive heart failure) Chronic indwelling Baires catheter Chronic venous insufficiency Complicated UTI (urinary tract infection) 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, with fat layer exposed Diverticulosis of colon (without mention of hemorrhage) DM (diabetes mellitus), type 2, uncontrolled w/ophthalmic complication Esophageal candidiasis Exertional dyspnea Gastric ulcer with hemorrhage but without obstruction H/O Clostridium difficile infection Hemangioma of skin History of chronic atrial fibrillation Hypertension Hypoxia ICH (intracerebral hemorrhage) Morbid obesity Open wound of scrotum JUAN MANUEL (obstructive sleep apnea) Peripheral arterial disease Rhabdomyolysis Scrotal varicose veins Skin ulcer of left foot including toes Symptomatic anemia Urinary retention Surgical History History of total replacement of right hip S/P cholecystectomy S/P tonsillectomy and adenoidectomy Family History Other No significant family history Social History Smoking Status: Never smoker Second Hand Exposure: No; Hx Alcohol Use: No Hx Substance Use: No Preferred Language: Serbian 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 Ability: Effective 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 Beliefs That Will Affect Care: None marital status: Current Living Situation: Senior Care Current Living Situation Comment: Home with spouse Feels Safe at Home: Yes Assistive Devices: Oxygen - Continuous and Wheelchair Review of Systems Review of Systems: Unobtainable due to cognitive status Physical Exam Constitutional: well developed, + ill appearing, + morbidly obese and + altered mental status Respiratory: + cough and + tachypneic Cardiovascular: Rate/Rhythm: + tachycardic and + irregularly irregular Vessels: no JVD Extremities: no edema (Bilateral lower extremity pretibial stasis changes.) Neurologic: moves all extremities and + confused Motor/Sensory: no tremor Results & Data ([facility]) Vital Signs (Past 12 Hours) Vital Signs Temp Pulse Pulse Resp BP BP Pulse Ox 05/27/20 08:50 129 H 05/27/20 08:00 37.0 C 116 H 16 102/68 95 05/27/20 06:00 126 H 130/86 05/27/20 03:33 37.1 C 55 L 20 118/79 96 05/26/20 23:09 37 C 116 H 18 100/66 93 05/26/20 22:34 37.4 C 111 H 20 120/67 94
[2020-05-27] MEDS: oxyCODONE HCL IR 5 MG TAB (IMMEDIATE RELEASE) PO PRN (12:24)
[2020-05-27] MEDS: LORazepam 0.5 MG TAB PO PRN ×2 (13:04→20:58)
--- NOTE | 2020-05-27 17:15 | Hospitalist Progress Note ---
Date of Service May 27, 2020 Assessment & Plan (1) Sepsis: Sepsis due to catheter associated UTI/chronic indwelling Baires catheter/acquired buried penis/BPH with LUTS- Blood pressure has responded to 2 L normal saline. We will continue normal saline at 100 mils per hour Recurrent UTIs include the followin06/18/2019 Morganella, 11/10/2019 Klebsiella, and 02/13/2020 Pseudomonas resistant to aztreonam and intermediate to gentamicin. Patient is allergic to amoxicillin. Continue cefepime 1 g IV every 12 hours begun in the ED. Follow urine culture and sensitivities Patient was seen by Dr. Dumont from urology while in the ED, and had Baires catheter adjusted so no longer in the prostatic urethra. Lactic acid elevated on admission -> WNL s/p IVF, abx (2) Elevated troponin I level: Trop is stable since admission, likely related to renal issues/afib in the setting of sepsis The patient will be admitted to telemetry for serial cardiac enzymes, serial EKG's, cardiac rhythm monitoring and a 2-D echocardiogram with Dopplers. Received 2 L normal saline in the ED. Hold torsemide, potassium chloride and metoprolol succinate. Lopressor 5 mg IV every 4 hours as needed systolic blood pressure greater than 160 or heart rate greater than 110 Hold oral medications for now due to lethargy. (3) Acquired buried penis: See above (4) Urinary retention with incomplete bladder emptying: See above (5) Catheter-associated urinary tract infection: See above (6) BPH w urinary obs/LUTS: See above (7) Acute kidney injury: Creatinine 4.62 upon admission, with most recent 1.3. Received 2 L normal saline in the ED, and will be continued at 100 mL's per hour. Repeat laboratories in a.m. (8) Atrial fibrillation: See above Does not appear to be on anticoagulation Admission and Anticipated Discharge Date Admission Date: May 26, 2020 Subjective Pt states he is fine. Pt denies fever, SOB, chest pain, abd pain, n/v/c/d, LE pain or swelling. Review of Systems Review of Systems: Pertinent positives and negatives reviewed in HPI--all others negative Physical Exam Constitutional: WD/WN, vitals as above Eyes: normal visual matthew by confrontation and + anicteric sclerae Neck: normal visual inspection and trachea midline Respiratory: normal respiratory effort, lungs clear to auscultation Cardiovascular: Rate/Rhythm: regular rate and regular rhythm Gastrointestinal (Abdomen): Inspection/Auscultation: abdomen not distended Percussion/Palpation: abdomen soft; abdomen nontender Musculoskeletal: Head/Neck/Chest: normocephalic and head atraumatic negative for edema, peripheral pulses intact Skin: no rashes, warm and dry Neurologic: awake and + confused Speech / Cognition: normal speech Psychiatric: Orientation: alert, oriented to person and cooperative Results & Data Results & Data ([facility]) Vital Signs (Past 12 Hours) Vital Signs Temp Pulse Pulse Pulse Resp BP BP 05/27/20 15:00 36.5 C 121 H 22 105/72 05/27/20 13:08 127 H 114/64 05/27/20 11:00 37.5 C 120 H 22 89/57 L 05/27/20 08:50 129 H 05/27/20 08:00 37.0 C 116 H 16 102/68 05/27/20 06:00 126 H 130/86 Pulse Ox 05/27/20 15:00 98 05/27/20 13:08 05/27/20 11:00 92 05/27/20 08:50 05/27/20 08:00 95 05/27/20 06:00 PG Care Time/CCT Total # of Minutes Spent Total Time Spent with Patient: Total time spent is greater than 50% in coor dination of care (as documented) at patient's floor/unit and/or counseling patient: Coding Level of Care Code 59361 Subseq Hosp Care Lvl 3 Diagnoses Sepsis A41.9 Sepsis acute organ dysfunction status: unspecified Sepsis type: sepsis due to unspecified organism Elevated troponin I level R77.8 Acquired buried penis N48.83 Urinary retention with incomplete bladder emptying R33.9 Catheter-associated urinary tract infection T83.511A; N39.0 Encounter type: initial encounter Indwelling urinary catheter type: indwelling urethral catheter BPH w urinary obs/LUTS N40.1; N13.8 Acute kidney injury N17.9 Atrial fibrillation I48.91 (1) Sepsis Sepsis acute organ dysfunction status: unspecified Sepsis type: sepsis due to unspecified organism Qualified Code(s): A41.9 - Sepsis, unspecified organism (2) Catheter-associated urinary tract infection Encounter type: initial encounter Indwelling urinary catheter type: indwelling urethral catheter Qualified Code(s): T83.511A - Infection and inflammatory reaction due to indwelling urethral catheter, initial encounter; N39.0 - Urinary tract infection, site not specified
[2020-05-27] MEDS: CEFEPIME 1,000 MG in SYRINGE 0 ML IV SCH (19:53)
[2020-05-27] MEDS: DOCUSATE SODIUM 100 MG CAP PO SCH (19:55)
[2020-05-27] MEDS: MELATONIN 3 MG TAB PO SCH (20:01)
--- NOTE | 2020-05-27 21:06 | Electrocardiogram Report ---
Test Reason : Blood Pressure : / mmHG Vent. Rate : 132 BPM Atrial Rate : 163 BPM P-R Int : 000 ms QRS Dur : 092 ms QT Int : 294 ms P-R-T Axes : 000 -54 134 degrees QTc Int : 435 ms Atrial fibrillation with rapid ventricular response Left anterior fascicular block Abnormal ECG When compared with ECG of 13-FEB-2020 15:54, No significant change was found Confirmed by Negrito Greenwood ([id number]) on 05/27/2020 9:06:23 PM Referred By: [facility] Confirmed By:Negrito Greenwood
[2020-05-27] MEDS ORDERED: guaiFENesin/DEXTROM SYRUP 100MG/10MG 5ML UDC PO PRN (21:07)
--- NOTE | 2020-05-27 21:25 | Electrocardiogram Report ---
Test Reason : Blood Pressure : / mmHG Vent. Rate : 123 BPM Atrial Rate : 000 BPM P-R Int : 000 ms QRS Dur : 092 ms QT Int : 326 ms P-R-T Axes : 000 -61 121 degrees QTc Int : 466 ms Atrial fibrillation with rapid ventricular response Left anterior fascicular block T wave abnormality, consider lateral ischemia Abnormal ECG When compared with ECG of 26-MAY-2020 17:43, No significant change was found Confirmed by Negrito Greenwood ([id number]) on 05/27/2020 9:25:16 PM Referred By: [facility] Confirmed By:Negrito Greenwood
[2020-05-27] MEDS: ALBUMIN 25% 12.5 GM/50 ML VIAL IV SCH (22:21)
[2020-05-27] MEDS ORDERED: FUROSEMIDE 20 MG in SYRINGE 0 ML IV ONE (22:30)
--- NOTE | 2020-05-27 22:30 | 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 Note ---
Date of Service: May 27, 2020 Notified that pt has been having a "wet cough" and sounded wheezy. Initially he was maintaining saturations on 2L of oxygen before dropping suddenly to saturations in the 80s. On exam, pt was uncomfortable with fine crackles and coarseness noted in his lungs A stat chest XR showed minimal change from the first, but his fluids were discontinued, and he was given IV Lasix 20mg with albumin due to his low blood pressure. It was also noted that he had HRs in the 130s as he was in a fib. A one time dose of digoxin 250mcg was given. Of note, will not give a second dose of dig due to his elevated Cr. Pt was transferred to PCU/tele. 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
[2020-05-27] MEDS ORDERED: DIGOXIN 250 MCG in SYRINGE 9 ML IV ONE (22:45)
[2020-05-28] MEDS: ALBUMIN 25% 12.5 GM/50 ML VIAL IV SCH (00:24)
[2020-05-28] MEDS: ACETAMINOPHEN 325 MG TAB PO PRN (00:48)
[2020-05-28 04:45] LABS: Basophils # (auto) 0.02 K/uL (0-0.2); Basophils % (auto) 0.1 %; Hematocrit (blood only) 40.2 % (42-52); Hemoglobin 13.3 g/dL (14.0-18.0); Immature Granulocytes # (auto) 0.05 K/uL (0.00-0.02); Immature Granulocytes % (auto) 0.4 %; Lymphocytes # (auto) 0.77 K/uL (1.2-3.4); Lymphocytes % (auto) 5.4 %; Mean Corpuscular Hgb Conc 33.1 g/dL (32-36); Mean Corpuscular Volume 87.8 fL (80-100); Mean Platelet Volume 10.3 fL (7.4-10.4); Monocytes # (auto) 0.87 K/uL (0.11-0.59); Monocytes % (auto) 6.2 %; Neutrophils # (auto) 12.42 K/uL (1.4-6.5); Neutrophils % (auto) 87.9 %; Platelet Count 211 K/uL (130-400); RDW Standard Deviation 54.4 fL (36.4-46.3); Red Blood Count 4.58 M/uL (4.7-6.1); White Blood Count 14.13 K/uL (4.8-10.8)
[2020-05-28] MEDS: oxyCODONE HCL IR 5 MG TAB (IMMEDIATE RELEASE) PO PRN (04:45)
[2020-05-28 05:00] LABS: INR 1.3 (0.9-1.1); Prothrombin Time 13.6 Seconds (9.0-12.0)
[2020-05-28 05:08] LABS: Albumin Level 2.2 gm/dl (3.4-5.0); BUN Creatinine Ratio 24.9 (10-20); Calcium 8.2 mg/dl (8.5-10.1); Creatinine Clr Calc Pharmacy 24.3 ml/min; Est GFR (African American) 19.6; Est GFR (Non-African American) 16.9; Magnesium 2.4 mg/dl (1.8-2.4); Potassium 3.8 mmol/L (3.5-5.1)
[2020-05-28] MEDS: HEPARIN SOD 5,000 UNIT/0.5 ML VIAL SQ SCH ×3 (05:17→21:14)
[2020-05-28 05:31] LABS: Albumin Globulin Ratio 0.4 (0.9-2); Bilirubin,Total 0.7 mg/dl (0.2-1); Total Protein 7.2 gm/dl (6.4-8.2); Troponin I 1.48 ng/ml (0-0.045)
--- NOTE | 2020-05-28 07:54 | XRay Report ---
XR chest 1V portable CLINICAL HISTORY: cough COMPARISON STUDY: 05/26/2020 FINDINGS: The heart is enlarged. There is no lobar consolidation. There are no pleural effusions. The re is no failure. Increased markings at the left lung base, are likely atelectatic[ IMPRESSION: 1. Cardiomegaly 2. Increased markings at the left lung base. Atelectasis favored over pneumonia. ACT 112: Negative or not required by law. Electronically signed by: Esau Rosa M.D. 05/28/2020 7:52 AM
[2020-05-28] MEDS: METOPROLOL SUCC 50MG EXT REL TAB PO SCH (08:22)
[2020-05-28] MEDS: ASPIRIN 81 MG ECTAB PO SCH (08:23)
[2020-05-28] MEDS: levETIRAcetam 500 MG TAB PO SCH ×2 (08:23→21:00)
[2020-05-28] MEDS: PANTOprazole 40 MG TAB PO SCH ×2 (08:23→21:01)
[2020-05-28] MEDS: FINASTERIDE 5 MG TAB PO SCH (08:24)
[2020-05-28] MEDS: FERROUS SULFATE 325 MG TAB PO SCH ×2 (08:33→21:01)
[2020-05-28] MEDS: POLYETHYLENE (MIRALAX) 17 GM PACK PO SCH (08:33)
--- NOTE | 2020-05-28 09:46 | Cardiology Progress Note ---
Date of Service May 28, 2020 Assessment & Plan (1) Atrial fibrillation with RVR: (2) Sepsis due to Gram negative bacteria: (3) Elevated troponin I level: (4) Acute renal failure superimposed on stage 3 chronic kidney disease: Continue oral metoprolol succinate as tolerated. If patient unable to take p.o. meds due to aspiration, transition to IV Lopressor 5 mg every 6 hours. Heart rates are reasonable this morning. Continue to follow fluid balance, GFR, daily weight, electrolytes. IV fluids currently on hold. Continue low-dose aspirin. Patient is not a candidate for long-term anticoagulation. Admission and Anticipated Discharge Date Admission Date: May 26, 2020 Subjective Patient seen and examined at the bedside. Transferred to room 103 overnight due to hypoxia. IV fluids discontinued and he received 1 dose of intravenous furosemide. 1.3 L of urine output recorded. Patient more alert today although remains somewhat confused. Able to take a.m. dose of Toprol-XL with applesauce. He received 1 dose of IV digoxin last evening due to A. fib with RVR during episode of hypoxia. Heart rate currently averaging approximately 100 to 120 bpm. Denies palpitations or chest pain. No orthopnea or PND. Review of Systems Review of Systems: All systems reviewed & are unremarkable except as noted in HPI & below Physical Exam Constitutional: well developed, + ill appearing, + morbidly obese and + altered mental status Respiratory: + cough Auscultation: no crackles, no rales and no wheezes Cardiovascular: Rate/Rhythm: + tachycardic and + irregularly irregular Heart Sounds: normal S1 and normal S2; no murmur Vessels: no JVD Extremities: + edema (Trace pretibial edema with bilateral stasis changes) Gastrointestinal (Abdomen): Inspection/Auscultation: normal bowel sounds; abdomen not distended Percussion/Palpation: abdomen soft; abdomen nontender, no guarding and abdomen not rigid Neurologic: moves all extremities and + confused; no focal motor deficits Motor/Sensory: no tremor Results & Data ([facility]) Vital Signs (Past 12 Hours) Vital Signs Temp Pulse Pulse Pulse Resp BP Pulse Ox 05/28/20 04:22 36.7 C 110 H 19 125/74 99 05/28/20 00:06 36.4 C L 120 H 20 98/70 L 100 05/28/20 00:00 05/27/20 22:49 130 H 05/27/20 21:57 37.6 C H 133 H 26 H 102/67 91 05/27/20 21:50 150 H Pulse Ox 05/28/20 04:22 05/28/20 00:06 05/28/20 00:00 100 05/27/20 22:49 05/27/20 21:57 05/27/20 21:50 (1) Acute renal failure superimposed on stage 3 chronic kidney disease Acute renal failure type: unspecified Qualified Code(s): N17.9 - Acute kidney failure, unspecified; N18.3 - Chronic kidney disease, stage 3 (moderate)
[2020-05-28] MEDS: MULTIVITAMIN TAB PO SCH (09:58)
[2020-05-28] MEDS: METOPROLOL TARTRATE 1 MG/ML VIAL IV PRN (10:30)
[2020-05-28] MEDS: EUCERIN CR 120 GM JAR EXT SCH ×2 (12:46→22:25)
--- NOTE | 2020-05-28 13:13 | Hospitalist Progress Note ---
Date of Service May 28, 2020 Assessment & Plan (1) Sepsis: Sepsis due to catheter associated UTI/chronic indwelling Baires catheter/acquired buried penis/BPH with LUTS- Blood pressure has responded to 2 L normal saline. We will continue normal saline at 100 mils per hour Recurrent UTIs include the followin06/18/2019 Morganella, 11/10/2019 Klebsiella, and 02/13/2020 Pseudomonas resistant to aztreonam and intermediate to gentamicin. Patient is allergic to amoxicillin. Continue cefepime 1 g IV every 12 hours begun in the ED. Patient was seen by Dr. Dumont from urology while in the ED, and had Baires catheter adjusted so no longer in the prostatic urethra. Blood cx with gram neg bacilli x2, sensi pending Urine cx essentially neg Lactic acid elevated on admission -> WNL s/p IVF, abx (2) Elevated troponin I level: Trop is stable since admission, likely related to renal issues/afib in the setting of sepsis The patient will be admitted to telemetry for serial cardiac enzymes, serial EKG's, cardiac rhythm monitoring and a 2-D echocardiogram with Dopplers. Received 2 L normal saline in the ED. Hold torsemide, potassium chloride and metoprolol succinate. Lopressor 5 mg IV every 4 hours as needed systolic blood pressure greater than 160 or heart rate greater than 110 Hold oral medications for now due to lethargy. Cardiology c/s recs for current management Overnight with some crackles and wet with desats and tachycardia, CXR stable Given lasix and dig Now stable, monitor (3) Acquired buried penis: See above (4) Urinary retention with incomplete bladder emptying: See above (5) Catheter-associated urinary tract infection: See above (6) BPH w urinary obs/LUTS: See above (7) Acute kidney injury: Creatinine 4.62 upon admission, with most recent 1.3. Received 2 L normal saline in the ED, and will be continued at 100 mL's per hour. Repeat laboratories in a.m. (8) Atrial fibrillation: See above Does not appear to be on anticoagulation Admission and Anticipated Discharge Date Admission Date: May 26, 2020 Subjective Pt's biggest concern today is getting his pillow situated behind his head. He has also been asking for water per nursing. Pt denies any other concerns. Pt denies fever, SOB, chest pain, abd pain, n/v/c/d, LE pain or swelling. Review of Systems Review of Systems: Pertinent positives and negatives reviewed in HPI--all others negative Physical Exam Constitutional: WD/WN, vitals as above Eyes: normal visual matthew by confrontation and + anicteric sclerae Neck: normal visual inspection and trachea midline Respiratory: normal respiratory effort, lungs clear to auscultation Cardiovascular: Rate/Rhythm: regular rate; + abnormal rhythm Extremities: + edema (trace) Gastrointestinal (Abdomen): Inspection/Auscultation: abdomen not distended Percussion/Palpation: abdomen soft; abdomen nontender Musculoskeletal: Head/Neck/Chest: normocephalic and head atraumatic Skin: no rashes, warm and dry Neurologic: awake and + confused Speech / Cognition: normal speech Psychiatric: Orientation: alert, oriented to person, oriented to place and cooperative; + not oriented to time Results & Data Results & Data ([facility]) Vital Signs (Past 12 Hours) Vital Signs Temp Pulse Pulse Pulse Resp BP BP 05/28/20 12:01 05/28/20 10:30 120 H 111/72 05/28/20 08:00 36.6 C 130 H 22 134/93 05/28/20 04:22 36.7 C 110 H 19 125/74 Pulse Ox Pulse Ox 05/28/20 12:01 96 05/28/20 10:30 05/28/20 08:00 96 100 05/28/20 04:22 99 PG Care Time/CCT Total # of Minutes Spent Total Time Spent with Patient: Total time spent is greater than 50% in coordination of care (as documented) at patient's floor/unit and/or counseling patient: Coding Level of Care Code 34311 Subseq Hosp Care Lvl 3 Diagnoses Sepsis A41.9 Sepsis acute organ dysfunction status: unspecified Sepsis type: sepsis due to unspecified organism Elevated troponin I level R77.8 Acquired buried penis N48.83 Urinary retention with incomplete bladder emptying R33.9 Catheter-associated urinary tract infection T83.511A; N39.0 Encounter type: initial encounter Indwelling urinary catheter type: indwelling urethral catheter BPH w urinary obs/LUTS N40.1; N13.8 Acute kidney injury N17.9 Atrial fibrillation I48.91 (1) Sepsis Sepsis acute organ dysfunction status: unspecified Sepsis type: sepsis due to unspecified organism Qualified Code(s): A41.9 - Sepsis, unspecified organism (2) Catheter-associated urinary tract infection Encounter type: initial encounter Indwelling urinary catheter type: indwelling urethral catheter Qualified Code(s): T83.511A - Infection and inflammatory reaction due to indwelling urethral catheter, initial encounter; N39.0 - Urinary tract infection, site not specified
[2020-05-28] MEDS ORDERED: GLUCOSE 10 TABS/TUBE PO PRN (14:48)
[2020-05-28] MEDS ORDERED: GLUCOSE 40% GEL 15 GM TUBE PO PRN (14:48)
[2020-05-28] MEDS ORDERED: CARBOHYDRATES FOR HYPOGLYCEMIA PO PRN (14:48)
[2020-05-28] MEDS ORDERED: DEXTROSE 50% 50 ML SYRINGE IV PRN (14:48)
[2020-05-28] MEDS ORDERED: GLUCAGON FOR INJ 1 MG VIAL SQ PRN (14:48)
[2020-05-28] MEDS ORDERED: INSULIN ASPART 100 UNITS/ML 3 ML PEN SC SCH (16:30)
[2020-05-28] MEDS: INSULIN ASPART 100 UNITS/ML 3 ML PEN SC SCH (17:53)
[2020-05-28] MEDS: CEFEPIME 1,000 MG in SYRINGE 0 ML IV SCH (20:57)
[2020-05-28] MEDS: LORazepam 0.5 MG TAB PO PRN (21:00)
[2020-05-28] MEDS: MELATONIN 3 MG TAB PO SCH (21:00)
[2020-05-28] MEDS: DOCUSATE SODIUM 100 MG CAP PO SCH (21:01)
[2020-05-29] MEDS: INSULIN ASPART 100 UNITS/ML 3 ML PEN SC SCH ×5 (00:02→23:14)
[2020-05-29] MEDS: HEPARIN SOD 5,000 UNIT/0.5 ML VIAL SQ SCH ×3 (06:01→20:26)
[2020-05-29] MEDS: METOPROLOL TARTRATE 1 MG/ML VIAL IV PRN (08:45)
[2020-05-29] MEDS: ASPIRIN 81 MG ECTAB PO SCH (09:08)
[2020-05-29] MEDS: FERROUS SULFATE 325 MG TAB PO SCH ×2 (09:08→20:26)
[2020-05-29] MEDS: MULTIVITAMIN TAB PO SCH (09:09)
[2020-05-29] MEDS: POLYETHYLENE (MIRALAX) 17 GM PACK PO SCH (09:09)
[2020-05-29] MEDS: PANTOprazole 40 MG TAB PO SCH ×2 (09:09→20:26)
[2020-05-29] MEDS: METOPROLOL SUCC 50MG EXT REL TAB PO SCH (09:09)
[2020-05-29] MEDS: levETIRAcetam 500 MG TAB PO SCH ×2 (09:09→20:26)
[2020-05-29] MEDS: FINASTERIDE 5 MG TAB PO SCH (09:09)
[2020-05-29 09:58] LABS: Basophils # (auto) 0.01 K/uL (0-0.2); Basophils % (auto) 0.1 %; Eosinophils # (auto) 0.04 K/uL (0-0.5); Eosinophils % (auto) 0.3 %; Hematocrit (blood only) 46.8 % (42-52); Hemoglobin 15.4 g/dL (14.0-18.0); Immature Granulocytes # (auto) 0.09 K/uL (0.00-0.02); Immature Granulocytes % (auto) 0.7 %; Lymphocytes # (auto) 0.43 K/uL (1.2-3.4); Lymphocytes % (auto) 3.5 %; Mean Corpuscular Hemoglobin 29.3 pg (25-34); Mean Corpuscular Hgb Conc 32.9 g/dL (32-36); Mean Corpuscular Volume 89.1 fL (80-100); Mean Platelet Volume 10.7 fL (7.4-10.4); Monocytes # (auto) 0.73 K/uL (0.11-0.59); Monocytes % (auto) 5.9 %; Neutrophils # (auto) 11.09 K/uL (1.4-6.5); Neutrophils % (auto) 89.5 %; Platelet Count 223 K/uL (130-400); RDW Coefficient of Variation 16.9 % (11.5-14.5); Red Blood Count 5.25 M/uL (4.7-6.1); White Blood Count 12.39 K/uL (4.8-10.8)
[2020-05-29 10:05] LABS: INR 1.2 (0.9-1.1); Prothrombin Time 12.7 Seconds (9.0-12.0)
[2020-05-29 10:11] LABS: Estimated Average Glucose 154 mg/dl
[2020-05-29 10:27] LABS: Albumin Level 2.3 gm/dl (3.4-5.0); BUN Creatinine Ratio 29.5 (10-20); BUN Creatinine Ratio 29.8 (10-20); Creatinine Clr Calc Pharmacy 34.8 ml/min; Creatinine Clr Calc Pharmacy 35.2 ml/min; Est GFR (African American) 31.7; Est GFR (Non-African American) 27.3; Est GFR (Non-African American) 27.6; Magnesium 2.6 mg/dl (1.8-2.4); Potassium 3.3 mmol/L (3.5-5.1); Potassium 3.5 mmol/L (3.5-5.1)
[2020-05-29 10:33] LABS: Albumin Globulin Ratio 0.4 (0.9-2); Bilirubin,Total 0.6 mg/dl (0.2-1); Globulin 5.9 gm/dl (2.5-4.0); Total Protein 8.2 gm/dl (6.4-8.2)
[2020-05-29] MEDS ORDERED: Nursing to Pharmacy 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 SCH (11:00)
[2020-05-29] MEDS: EUCERIN CR 120 GM JAR EXT SCH ×2 (11:24→20:27)
--- NOTE | 2020-05-29 11:27 | Cardiology Progress Note ---
Date of Service May 29, 2020 Assessment & Plan (1) Atrial fibrillation with RVR: (2) Proteus septicemia: (3) Elevated troponin I level: (4) Acute renal failure superimposed on stage 3 chronic kidney disease: Recommend IV metoprolol 5 mg every 6 hours as patient currently n.p.o. due to possible aspiration. Transition back to Toprol-XL 200 mg daily when able to take oral medications. Continue low-dose aspirin. Patient is not a candidate for long-term anticoagulation. Diuretics and IV fluid currently on hold. Continue to monitor daily weight, edema, GFR, electrolytes. Creatinine trending downward since admission. Admission and Anticipated Discharge Date Admission Date: May 26, 2020 Subjective Patient seen and examined the bedside. He did not receive a.m. dose of metoprolol due to n.p.o. status and possible aspiration. Heart rate averaging 100 to 115 bpm on telemetry. Denies palpitations. Patient is somewhat agitated and requesting something to drink. Denies chest pain or palpitations. More alert today. Review of Systems Review of Systems: All systems reviewed & are unremarkable except as noted in HPI & below Physical Exam Constitutional: well developed, + ill appearing, + morbidly obese and + altered mental status Respiratory: + cough Auscultation: no crackles, no rales and no wheezes Cardiovascular: Rate/Rhythm: + tachycardic and + irregularly irregular Heart Sounds: normal S1 and normal S2; no murmur Vessels: no JVD Extremities: + edema (Trace pretibial edema with bilateral stasis changes) Gastrointestinal (Abdomen): Inspection/Auscultation: normal bowel sounds; abdomen not distended Percussion/Palpation: abdomen soft; abdomen nontender, no guarding and abdomen not rigid Neurologic: moves all extremities and + confused; no focal motor deficits Motor/Sensory: no tremor Results & Data ([facility]) Vital Signs (Past 12 Hours) Vital Signs Temp Pulse Pulse Pulse Resp BP BP 05/29/20 11:17 37 C 117 H 18 137/64 05/29/20 08:45 115 H 111/73 05/29/20 08:00 36.8 C 115 H 18 111/73 05/29/20 07:30 109 H 05/29/20 04:53 36.6 C 103 H 20 121/81 Pulse Ox 05/29/20 11:17 97 05/29/20 08:45 05/29/20 08:00 91 05/29/20 07:30 05/29/20 04:53 92 (1) Acute renal failure superimposed on stage 3 chronic kidney disease Acute renal failure type: unspecified Qualified Code(s): N17.9 - Acute kidney failure, unspecified; N18.3 - Chronic kidney disease, stage 3 (moderate)
[2020-05-29] MEDS: METOPROLOL TARTRATE 1 MG/ML VIAL IV SCH ×2 (12:04→20:27)
[2020-05-29] MEDS ORDERED: POTASSIUM PHOS 3 MMOL/1 ML INFUSION IV STA (14:56)
--- NOTE | 2020-05-29 14:56 | Hospitalist Progress Note ---
Date of Service May 29, 2020 Assessment & Plan (1) Sepsis: Sepsis due to catheter associated UTI/chronic indwelling Baires catheter/acquired buried penis/BPH with LUTS- Blood pressure has responded to 2 L normal saline. We will continue normal saline at 100 mils per hour Recurrent UTIs include the followin06/18/2019 Morganella, 11/10/2019 Klebsiella, and 02/13/2020 Pseudomonas resistant to aztreonam and intermediate to gentamicin. Patient is allergic to amoxicillin. Continue cefepime 1 g IV every 12 hours begun in the ED. Patient was seen by Dr. Dumont from urology while in the ED, and had Baires catheter adjusted so no longer in the prostatic urethra. Blood cx with gram neg bacilli x2, sensi pending Urine cx essentially neg Lactic acid elevated on admission -> WNL s/p IVF, abx (2) Elevated troponin I level: Trop is stable since admission, likely related to renal issues/afib in the setting of sepsis The patient will be admitted to telemetry for serial cardiac enzymes, serial EKG's, cardiac rhythm monitoring and a 2-D echocardiogram with Dopplers. Received 2 L normal saline in the ED. Hold torsemide, potassium chloride and metoprolol succinate. Lopressor 5 mg IV every 4 hours as needed systolic blood pressure greater than 160 or heart rate greater than 110 Hold oral medications for now due to lethargy. Cardiology recs for current management Overnight with some crackles and wet with desats and tachycardia, CXR stable Monitoring on lasix and dig Now stable, monitor (3) Acquired buried penis: See above (4) Urinary retention with incomplete bladder emptying: See above (5) Catheter-associated urinary tract infection: See above (6) BPH w urinary obs/LUTS: See above (7) Acute kidney injury: Creatinine 4.62 upon admission, with most recent 1.3. Received 2 L normal saline in the ED, and will be continued at 100 mL's per hour. Repeat laboratories in a.m. (8) Atrial fibrillation: See above Does not appear to be on anticoagulation (9) At risk for aspiration: Pt failed ST eval on 05/28, however he was quite confused during eval NPO for now ST to assess with thickening agents again today, pt is less confused (10) CIERRA (acute kidney injury): Cr 4.6 on admission, improving Baseline cr is 1.3 (11) Diabetes mellitus with diabetic polyneuropathy: A1c 7.0 SSI PRN Holding home PO meds Does not appear to be on insulin prior (12) Hypokalemia: Replace and monitor Admission and Anticipated Discharge Date Admission Date: May 26, 2020 Subjective Pt is less confused today. He is repeatedly asking for water. Pt denies fever, SOB, chest pain, abd pain, n/v/c/d, LE pain or swelling. Review of Systems Review of Systems: Pertinent positives and negatives reviewed in HPI--all others negative Physical Exam Constitutional: WD/WN, vitals as above Eyes: normal visual matthew by confrontation and + anicteric sclerae Neck: normal visual inspection and trachea midline Respiratory: normal respiratory effort, lungs clear to auscultation Cardiovascular: Rate/Rhythm: regular rate; + abnormal rhythm Extremities: + edema (trace) Gastrointestinal (Abdomen): Inspection/Auscultation: abdomen not distended Percussion/Palpation: abdomen soft; abdomen nontender Musculoskeletal: Head/Neck/Chest: normocephalic and head atraumatic Skin: no rashes, warm and dry Neurologic: awake and + confused (much more interactive, less confused today) Speech / Cognition: normal speech Psychiatric: Orientation: alert, oriented to person, oriented to place and cooperative; + not oriented to time Results & Data Results & Data ([facility]) Vital Signs (Past 12 Hours) Vital Signs Temp Pulse Pulse Pulse Resp BP BP 05/29/20 12:04 98 H 105/46 L 05/29/20 11:17 37 C 117 H 18 137/64 05/29/20 08:45 115 H 111/73 05/29/20 08:00 36.8 C 115 H 18 111/73 05/29/20 07:30 109 H 05/29/20 04:53 36.6 C 103 H 20 121/81 Pulse Ox 05/29/20 12:04 05/29/20 11:17 97 05/29/20 08:45 05/29/20 08:00 91 05/29/20 07:30 05/29/20 04:53 92 PG Care Time/CCT Total # of Minutes Spent Total Time Spent with Patient: Total time spent is greater than 50% in coordination of care (as documented) at patient's floor/unit and/or counseling patient: Coding Level of Care Code 86743 Subseq Hosp Care Lvl 3 Diagnoses Sepsis A41.9 Sepsis acute organ dysfunction status: unspecified Sepsis type: sepsis due to unspecified organism Elevated troponin I level R77.8 Acquired buried penis N48.83 Urinary retention with incomplete bladder emptying R33.9 Catheter-associated urinary tract infection T83.511A; N39.0 Encounter type: initial encounter Indwelling urinary catheter type: indwelling urethral catheter BPH w urinary obs/LUTS N40.1; N13.8 Acute kidney injury N17.9 Atrial fibrillation I48.91 At risk for aspiration Z91.89 CIERRA (acute kidney injury) N17.9 Diabetes mellitus with diabetic polyneuropathy E11.42 Hypokalemia E87.6 (1) Sepsis Sepsis acute organ dysfunction status: unspecified Sepsis type: sepsis due to unspecified organism Qualified Code(s): A41.9 - Sepsis, unspecified organism (2) Catheter-associated urinary tract infection Encounter type: initial encounter Indwelling urinary catheter type: indwelling urethral catheter Qualified Code(s): T83.511A - Infection and inflammatory reaction due to indwelling urethral catheter, initial encounter; N39.0 - Urinary tract infection, site not specified
[2020-05-29] MEDS ORDERED: POTASSIUM PHOSPHATE 15 MMOL in SODIUM CHLORIDE 0.9% 250 ML IV ONE (15:30)
[2020-05-29] MEDS: oxyCODONE HCL IR 5 MG TAB (IMMEDIATE RELEASE) PO PRN (18:29)
[2020-05-29] MEDS: CEFEPIME 1,000 MG in SYRINGE 0 ML IV SCH (20:33)
[2020-05-29] MEDS: ACETAMINOPHEN 325 MG TAB PO PRN (20:33)
[2020-05-29] MEDS: DOCUSATE SODIUM 100 MG CAP PO SCH (20:33)
[2020-05-29] MEDS: MELATONIN 3 MG TAB PO SCH (20:47)
--- NOTE | 2020-05-29 21:33 | Electrocardiogram Report ---
Test Reason : Blood Pressure : / mmHG Vent. Rate : 111 BPM Atrial Rate : 091 BPM P-R Int : 000 ms QRS Dur : 102 ms QT Int : 358 ms P-R-T Axes : 000 -46 123 degrees QTc Int : 486 ms Atrial fibrillation with rapid ventricular response Left anterior fascicular block Abnormal ECG When compared with ECG of 27-MAY-2020 06:40, No significant change was found Confirmed by Rosendo Chaney ([id number]) on 05/29/2020 9:33:20 PM Referred By: [facility] Confirmed By:Rosendo Chaney
[2020-05-30] MEDS: oxyCODONE HCL IR 5 MG TAB (IMMEDIATE RELEASE) PO PRN ×3 (00:46→17:23)
[2020-05-30] MEDS: METOPROLOL TARTRATE 1 MG/ML VIAL IV SCH ×3 (00:52→12:06)
[2020-05-30] MEDS: HEPARIN SOD 5,000 UNIT/0.5 ML VIAL SQ SCH ×2 (05:59→13:31)
[2020-05-30 06:17] LABS: Basophils # (auto) 0.01 K/uL (0-0.2); Basophils % (auto) 0.1 %; Eosinophils # (auto) 0.16 K/uL (0-0.5); Eosinophils % (auto) 1.5 %; Hematocrit (blood only) 42.2 % (42-52); Hemoglobin 13.7 g/dL (14.0-18.0); Immature Granulocytes # (auto) 0.11 K/uL (0.00-0.02); Lymphocytes # (auto) 0.82 K/uL (1.2-3.4); Lymphocytes % (auto) 7.5 %; Mean Corpuscular Hemoglobin 29.1 pg (25-34); Mean Corpuscular Hgb Conc 32.5 g/dL (32-36); Mean Corpuscular Volume 89.6 fL (80-100); Mean Platelet Volume 11.1 fL (7.4-10.4); Monocytes # (auto) 0.62 K/uL (0.11-0.59); Monocytes % (auto) 5.7 %; Neutrophils # (auto) 9.22 K/uL (1.4-6.5); Neutrophils % (auto) 84.2 %; Platelet Count 236 K/uL (130-400); RDW Coefficient of Variation 16.9 % (11.5-14.5); RDW Standard Deviation 55.7 fL (36.4-46.3); Red Blood Count 4.71 M/uL (4.7-6.1); White Blood Count 10.94 K/uL (4.8-10.8)
[2020-05-30 06:41] LABS: BUN Creatinine Ratio 32.6 (10-20); Calcium 8.3 mg/dl (8.5-10.1); Creatinine Clr Calc Pharmacy 44.8 ml/min; Est GFR (African American) 42.9; Potassium 3.6 mmol/L (3.5-5.1)
[2020-05-30] MEDS: INSULIN ASPART 100 UNITS/ML 3 ML PEN SC SCH ×3 (07:44→16:53)
[2020-05-30] MEDS: MULTIVITAMIN TAB PO SCH (07:46)
[2020-05-30] MEDS: FINASTERIDE 5 MG TAB PO SCH (07:46)
[2020-05-30] MEDS: FERROUS SULFATE 325 MG TAB PO SCH (07:46)
[2020-05-30] MEDS: ASPIRIN 81 MG ECTAB PO SCH (07:47)
[2020-05-30] MEDS: levETIRAcetam 500 MG TAB PO SCH (07:47)
[2020-05-30] MEDS: METOPROLOL SUCC 50MG EXT REL TAB PO SCH (07:47)
[2020-05-30] MEDS: PANTOprazole 40 MG TAB PO SCH (07:48)
[2020-05-30] MEDS: POLYETHYLENE (MIRALAX) 17 GM PACK PO SCH (07:54)
[2020-05-30] MEDS: EUCERIN CR 120 GM JAR EXT SCH (09:06)
--- NOTE | 2020-06-01 21:53 | Discharge Summary ---
Date of Service May 30, 2020 Admission HPI Per Admitting Provider The patient is a 79-year-old male with a past medical history including acquired buried penis, urinary retention with incomplete bladder emptying, acute kidney injury, genital hemangioma, chronic pain syndrome, obesity, liver cirrhosis, acute diastolic CHF, abdominal wall cellulitis, scrotal cellulitis, catheter associated urinary tract infection, gram-negative sepsis, gram-negative bacteremia, diabetes mellitus, diabetic polyneuropathy, demand ischemia, seizures, sepsis, atrial fibrillation with RVR, hyperlipidemia, BPH with LUTS, history of C. difficile, history of ureteral stent, intramuscular hematoma, st age II pressure ulcer of buttock, JUAN MANUEL, pneumonia, chronic venous insufficiency, acute encephalopathy, seizure, esophageal candidiasis, unsteady gait, peripheral arterial disease, ICU admission, rhabdomyolysis, diabetic toe ulcer, Horvath's esophagus, ICH, gastric ulcer with hemorrhage, hypertension, right hip total arthroplasty and morbid obesity. The patient presents to the emergency department as noted above. CT of the abdomen and pelvis tonight showed a distended bladder wall suggesting cystitis, with bilateral hydroureteronephrosis and Patiño catheter within the prostatic urethra likely causing obstruction. Laboratories included the following: WBC 23.16, BUN 79, creatinine 4.62, lactate 2.3, troponin 0 0.172, albumin 2.2, GFR 11.2 and pro calcitonin 4.53. Principal Diagnosis sepsis Discharge Exam Constitutional: WD/WN, vitals as above Eyes: normal visual matthew by confrontation and + anicteric sclerae Neck: normal visual inspection and trachea midline Respiratory: normal respiratory effort, lungs clear to auscultation Cardiovascular: Rate/Rhythm: regular rate; + abnormal rhythm Extremities: + edema (trace) Gastrointestinal (Abdomen): Inspection/Auscultation: abdomen not distended Percussion/Palpation: abdomen soft; abdomen nontender Musculoskeletal: Head/Neck/Chest: normocephalic and head atraumatic Skin: no rashes, warm and dry Neurologic: awake and + confused (much more interactive, less confused today) Speech / Cognition: normal speech Psychiatric: Orientation: alert, oriented to person, oriented to place and cooperative; +e Discharge Data Allergies Allergy/AdvReac Type Severity Reaction Status Date / Time metronidazole Allergy Severe Unknown Verified 05/26/20 20:58 amoxicillin Allergy Intermediate Rash Verified 05/26/20 20:58 Consultations 05/26/20 19:53 Consult Urology Stat ED Decision to Admit Stat 05/26/20 22:26 Consult Case Management - Discharge Planning Routine 05/28/20 10:15 Consult Cardiology Routine Ordered Studies 05/26/20 18:21 CT abd pelvis wo con Stat CT chest wo con Stat Hospital Course (1) Sepsis: Sepsis due to catheter associated UTI/chronic indwelling Patiño catheter/acquired buried penis/BPH with LUTS- Blood pressure has responded to 2 L normal saline. Recurrent UTIs include the followin06/18/2019 Morganella, 11/10/2019 Klebsiella, and 02/13/2020 Pseudomonas resistant to aztreonam and intermediate to gentamicin. Patient is allergic to amoxicillin. Treated with cefepime 1 g IV every 12 hours begun in the ED. Patient was seen by Dr. Dumont from urology while in the ED, and had Patiño catheter adjusted so no longer in the prostatic urethra. Blood cx with gram neg bacilli x2 Urine cx essentially neg Lactic acid elevated on admission -> WNL s/p IVF, abx will be discharged with patiño. and oral antibiotics for 1 week (2) Elevated troponin I level: Trop is stable since admission, likely related to renal issues/afib in the setting of sepsis The patient will be admitted to telemetry for serial cardiac enzymes, serial EKG's, cardiac rhythm monitoring and a 2-D echocardiogram with Dopplers. Received 2 L normal saline in the ED. Hold torsemide, potassium chloride and metoprolol succinate. Lopressor 5 mg IV every 4 hours as needed systolic blood pressure greater than 160 or heart rate greater than 110 Hold oral medications for now due to lethargy. Cardiology recs for current management Overnight with some crackles and wet with desats and tachycardia, CXR stable Monitoring on lasix and dig Now stable, (3) Acquired buried penis: See above (4) Urinary retention with incomplete bladder emptying: See above (5) Catheter-associated urinary tract infection: See above (6) BPH w urinary obs/LUTS: See above (7) Acute kidney injury: Creatinine 4.62 upon admission, with most recent 1.3. Received 2 L normal saline in the ED, and will be continued at 100 mL's per hour. Repeat laboratories in a.m. (8) Atrial fibrillation: See above Does not appear to be on anticoagulation (9) At risk for aspiration: Pt failed ST eval on 05/28, however he was quite confused during eval NPO for now ST to assess with thickening agents again today, pt is less confused (10) Diabetes mellitus with diabetic polyneuropathy: A1c 7.0 SSI PRN Holding home PO meds Does not appear to be on insulin prior (11) Hypokalemia: Replace and monitor Total Time Total Time Spent Total Time Spent (In Minutes): 32 Total Time Includes: Examination of the Patient, Discharge Planning and Medication Reconciliation Discharge Plan Discharge Items Patient Disposition: Transfer Care Home Fac Reason For Visit: SEPSIS DUE TO UTI, HYPOTENSION, NON-STEMI Discharge Diagnosis: sepsis Activity: Resume your previous activity Non-emergency contact: Primary Care Provider Call non-emergency contact if: you have any medication questions [place]/Ref[place]: [place] [Primary Care Provider] - Diet: Carb Consistent or DM2 and Heart Healthy Addtl Attending Provider Instructions: You have been hospitalized for an acute medical problem. During your stay at [facility], we have made an effort to correct the problem that brought you to the hospital while keeping you as comfortable as possible. Medications were used to bring your condition under control and your discharge instructions will include directions for any medications you should take after leaving the hospital. Please make sure you see your Primary Care Provider as part of your follow up plan. Followup with Urology for patiño removal within 28 days. Schedule patient for catheter removal within 28 day. May require periodical irrigation to prevent the patiño catheter from obstructi ng. You will be discharged on oral antibiotics for 7 days. Will recommend blood work to check kidney function in 1 week (BMP). Will recommend cell coverer or type mapper to see patient at [place] [facility] Pending Studies at Discharge: No Stand-Alone Forms: My [facility] Skilled Items Patient informed of condition?: Yes DNR: No Discharge Level of Care: Skilled Communicable Disease: No Discharge Prognosis: Stable Lines: None Urinary Catheter: Yes Medications and DC Order Prescriptions: New ciprofloxacin HCl 500 mg tablet 500 mg PO BID Qty: 14 RF: 0 Continued metformin 500 mg Tablet 500 mg PO QAM RF: 0 metoprolol succinate 200 mg tablet extended release 24 hr 200 mg PO DAILY RF: 0 pantoprazole 40 mg Tablet,Delayed Release (Dr/Ec) 40 mg PO BID RF: 0 ferrous sulfate 325 mg (65 mg iron) Tablet 325 mg PO BID RF: 0 finasteride 5 mg tablet 5 mg PO DAILY RF: 0 levetiracetam 500 mg Tablet 500 mg PO BID RF: 0 potassium chloride 10 mEq tablet,ER particles/crystals 10 meq PO DAILY RF: 0 Januvia 50 mg tablet 50 mg PO DAILY RF: 0 aspirin [Aspirin Low Dose] 81 mg Tablet,Delayed Release (Dr/Ec) 81 mg PO DAILY RF: 0 atropine sulfate (PF) 1 % Drops 2 drp Q1H PRN (Reason: Excessive Salivation) RF: 0 docusate sodium 100 mg Capsule 200 mg PO HS RF: 0 mineral oil-isopropyl myristat Lotion 1 applic TOPICAL BID RF: 0 lorazepam 0.5 mg Tablet 0.5 mg PO Q6H PRN (Reason: Anxiety) RF: 0 melatonin 3 mg Tablet 3 mg PO HS RF: 0 magnesium hydroxide [Milk of Magnesia] 400 mg/5 mL Suspension 30 ml PO DAILY PRN (Reason: Constipation) RF: 0 polyethylene glycol 3350 [Miralax] 17 gram/dose Powder 17 g PO DAILY RF: 0 morphine concentrate 100 mg/5 mL (20 mg/mL) Solution 10 mg sublingual Q1H PRN (Reason: .PAIN #5-10) RF: 0 multivitamin Tablet 1 tab PO DAILY RF: 0 nystatin 100,000 unit/gram ointment 1 applic TOPICAL TID RF: 0 nystatin 1 billion unit Powder 1 unit PO BID RF: 0 oxycodone 5 mg tablet 5 mg PO Q12H RF: 0 oxycodone 5 mg tablet 5 mg PO Q6H PRN (Reason: .PAIN # 5-10) RF: 0 promethazine 25 mg tablet 25 mg PO Q6H PRN (Reason: Nausea And Vomiting) RF: 0 promethazine 25 mg/mL solution 25 mg IM Q6H PRN (Reason: Nausea And Vomiting) RF: 0 dextromethorphan-guaifenesin 10-100 mg/5 mL Syrup 10 ml PO Q4H PRN (Reason: Cough) RF: 0 torsemide 20 mg tablet 20 mg PO DAILY RF: 0 acetaminophen [Tylenol] 325 mg Tablet 650 mg PO QID MDD 3G PRN (Reason: Fever Or Pain) RF: 0 diclofenac sodium 1 % gel 2 g TOPICAL QID RF: 0 Discontinued levofloxacin [Levaquin] 750 mg Tablet 750 mg PO DAILY RF: 0 Discharge Orders: Discharge Order (Routine); Ordered 05/30/20 Ordered By: Mendez Chappell Admission Data Admit Date/Time: 05/26/20 21:14 Attending Provider: Mendez Chappell Admit Provider: Govind Jay Primary Care Provider: [facility] Dias Other Providers: Rosendo Dumont ; Parish Lopez ; Mendez Chappell Other Interventions: Discharge Summary Assessment (RN) Last Done: 05/30/20 13:38 Coding Level of Care Code D/C Day Management >30 mins Diagnoses Sepsis A41.9 Sepsis acute organ dysfunction status: unspecified Sepsis type: sepsis due to unspecified organism Elevated troponin I level R77.8 Acquired buried penis N48.83 Urinary retention with incomplete bladder emptying R33.9 Catheter-associated urinary tract infection T83.511A; N39.0 Encounter type: initial encounter Indwelling urinary catheter type: indwelling urethral catheter BPH w urinary obs/LUTS N40.1; N13.8 Acute kidney injury N17.9 Atrial fibrillation I48.91 At risk for aspiration Z91.89 Diabetes mellitus with diabetic polyneuropathy E11.42 Hypokalemia E87.6
== END 2020-05-30 20:00 | DRG 698 ==
LOC: ED 17:31 → SUATTDRO 21:14 → 2W 21:14 → 1E 05-27 23:52 → 2S 05-28 13:55

== ENCOUNTER 2020-06-26 22:10 | Inpatient (IN) ==
[2020-06-26] MEDS ORDERED: METOPROLOL TARTRATE 1 MG/ML VIAL IV ONE (22:22)
[2020-06-26] MEDS ORDERED: NITROGLYCERIN 2% OINTMENT 30GM TUBE ONE (22:23)
[2020-06-26] MEDS ORDERED: LORazepam 2 MG/4 ML VIAL ONE ×2 (22:23→22:51)
[2020-06-26] MEDS ORDERED: ALBUT/IPRATROP 3MG/0.5MG NEB 3 ML VIAL NEB STA (22:25)
[2020-06-26] MEDS ORDERED: ALBUT/IPRATROP 3MG/0.5MG NEB 3 ML VIAL ONE (22:28)
--- NOTE | 2020-06-26 22:34 | Emergency Department Note ---
Impression & Plan Sepsis, Atrial fibrillation with rapid ventricular response, CIERRA (acute kidney injury), Acute respiratory distress, Hypotension, Elevated liver enzymes, Hypomagnesemia ED Provider Note NAME: CUAUHTEMOC LOUIS AGE: 79 SEX: M : 1940 ARRIVES VIA: Ambulance INFORMANT: [Patient][ems, nursing] ED PROVIDER(S): [Bernardo Jerez MD] CHIEF COMPLAINT: Short of breath HISTORY OF PRESENT ILLNESS: The patient is a 79-year-old male who was brought by ambulance from [facility]. He has a history of Covid pneumonia a month ago. Today, short time ago, he suddenly became short of breath, tachycardic and hypoxic. He was given CPAP on the way here without any real improvement in his breathing. The patient states that he is short of breath. He denies any chest pain. The patient denies cough. He really cannot give much more of a history. He is in too much distress to answer any further questions. No further history obtainable. Of note, the patient is a DNR. Of note, as per nursing staff, the patient was rolled to allow for cleaning after a bowel movement. He had a 50 cent sized ulcer on the central buttock just superior to the rectum. There was no surrounding erythema or discharge but there was stool in the ulcer. REVIEW OF SYSTEMS: Unobtainable given his distress and mental state. PMHx/PSHx: See Below SOCIAL HISTORY: See Below. PHYSICAL EXAM: GENERAL: Patient is in significant respiratory distress, agitated. HEENT: No acute trauma, normocephalic atraumatic, mucous membranes moist, no nasal congestion, no scleral icterus. NECK: No stridor, no adenopathy, no meningismus, trachea is midline. LUNGS: No obvious wheeze, increased respiratory rate. Agitated. Significant respiratory distress. HEART: Tachycardic and irregular. Equal radial pulses bilaterally. ABDOMEN: Soft, nontender, bowel sounds positive, no hernias, no peritonitis. Obese. There is a Baires catheter in place. EXTREMITIES: No cyanosis, full range of motion of all the joints without pain or difficulty, no signs for acute trauma. NEUROLOGIC: Awake and alert, agitated, no acute motor or sensory deficits, no focal weakness. SKIN: No rash, no jaundice, no diaphoresis. DIFFERENTIAL DIAGNOSIS: Reactive airway disease, pneumonia, pneumothorax, COVID-19, COPD, CHF, dysrhythmia, [place], infections, cardiac ischemia, pulmonary embolism, musculo skeletal, gastrointestinal, as well as other pathologies. EMERGENCY DEPARTMENT COURSE/PROCEDURES: ECG: Indication was shortness of breath. The ECG shows atrial fibrillation with a rate of 126. There is no ST elevation, there is some very subtle ST depression across the anterior and lateral leads. There are no PVCs. The QTc is 512. Continuous Cardiac Monitoring: An order was placed for continuous cardiac monitoring. The monitor shows a rate of 110 with atrial fibrillation. Critical Care Note: I have personally spent 56 minutes of critical care time in the direct management of this patient. This includes bedside care, interpretation of diagnostic studies, and testing, discussion with consultants, patient, and family members, and other required patient management activities. This 56 minutes is in excess of all separately billable procedures. MEDICAL DECISION MAKING: There is a marked leukocytosis at 22,000, this is consistent with infection. The patient was anemic with a hemoglobin of 12.9. There was a normal platelet count. INR was elevated at 1.5. The patient appeared to be acidotic with a low CO2 at 18. There was acute kidney injury with a creatinine of 2.21. Lactic acid level was quite high at 8.2. Magnesium was low at 1.4. There was evidence for shock liver with liver enzyme elevation. BNP was significantly elevated at over 22,000. ECG showed a rapid A. fib, no acute ischemia. There was a mild cardiac troponin elevation, possibly consistent with cardiac injury versus mismatch. Coronavirus testing returned negative. Chest film showed some chronic changes at the left base. The film looks similar to previous films. There was no heart failure or obvious pneumonia. Abdominal and pelvis CT showed the Baires to be in proper position. There was no bowel obstruction. Some chronic findings were seen. They questioned whether there could be a left lower lung pneumonia. The patient presented in respiratory distress. He was reportedly hypoxic as per EMS. He was a DNR, he was not to be intubated. Patient was placed on BiPAP. He was initially ordered IV Lopressor and nitroglycerin paste for presumed heart failure however, these meds were never given as his chest x-ray returned without findings of CHF. He did receive IV Ativan, 3 doses of 0.5 mg were administered to control his agitation. He received 3 L of IV saline as his blood pressure dropped during his ED stay. He received IV magnesium. He was given IV cefepime. He received a DuoNeb. The patient was eventually taken off of BiPAP. His O2 saturation was adequate with just oxygen mask supplementation. The staff here was able to obtain 3 IV sites, we had adequate IV access. The patient appears septic. The source is unclear but, he does have a history of urinary sepsis just last month. He does have a deep sacral ulcer which could be the source of his infection. Radiology questioned a pneumonia on his abdominal and pelvis CT. Patient is clearly in need of a hospital stay. He is showing some improvement though with the above treatment. His heart rate has decreased, he seems more interactive, he is less agitated and seems efrain be breathing without any distress. His blood pressure remains low though. I did speak with the patient, case management was involved in the patient's case. The on-call hospitalist was consulted. 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, with fat layer exposed Diverticulosis of colon (without mention of hemorrhage) DM (diabetes mellitus), type 2, uncontrolled w/ophthalmic complication Esophageal candidiasis Exertional dyspnea Gastric ulcer with hemorrhage but without obstruction H/O Clostridium difficile infection Hemangioma of skin History of chronic atrial fibrillation Hypertension Hypoxia ICH (intracerebral hemorrhage) Morbid obesity Open wound of scrotum JUAN MANUEL (obstructive sleep apnea) Peripheral arterial disease Rhabdomyolysis Scrotal varicose veins Skin ulcer of left foot including toes Symptomatic anemia Urinary retention Surgical History History of total replacement of right hip S/P cholecystectomy S/P tonsillectomy and adenoidectomy Family History Other No significant family history Social History Smoking Status: Unknown if ever smoked Second Hand Exposure: No; Hx Alcohol Use: No Hx Substance Use: No Preferred Language: Malawian 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 Ability: Effective 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 Beliefs That Will Affect Care: None marital status: Current Living Situation: [facility] Current Living Situation Comment: Home with spouse Feels Safe at Home: Yes Allergies Allergies Allergy/AdvReac Type Severity Reaction Status Date / Time metronidazole Allergy Severe Unknown Verified 05/26/20 20:58 amoxicillin Allergy Intermediate Rash Verified 05/26/20 20:58 Home Meds Home Medications Medication Instructions Recorded Confirmed ferrous sulfate 325 mg PO BID 06/16/18 05/26/20 finasteride 5 mg PO DAILY 06/16/18 05/26/20 metformin 500 mg PO QAM 06/16/18 05/26/20 metoprolol succinate 200 mg PO DAILY 06/16/18 05/26/20 pantoprazole 40 mg PO BID 06/16/18 05/26/20 levetiracetam 500 mg PO BID 03/16/19 05/26/20 Januvia 50 mg PO DAILY 06/17/19 05/26/20 potassium chloride 10 meq PO DAILY 06/17/19 05/26/20 aspirin [Aspirin Low Dose] 81 mg PO DAILY 11/10/19 05/26/20 acetaminophen [Tylenol] 650 mg PO QID PRN MDD 3G 05/26/20 05/26/20 atropine sulfate (PF) 2 drp Q1H PRN 05/26/20 05/26/20 dextromethorphan-guaifenesin 10 ml PO Q4H PRN 05/26/20 05/26/20 diclofenac sodium 2 g TOPICAL QID 05/26/20 05/26/20 docusate sodium 200 mg PO HS 05/26/20 05/26/20 lorazepam 0.5 mg PO Q6H PRN 05/26/20 05/26/20 magnesium hydroxide [Milk of 30 ml PO DAILY PRN 05/26/20 05/26/20 Magnesia] melatonin 3 mg PO HS 05/26/20 05/26/20 mineral oil-isopropyl myristat 1 applic TOPICAL BID 05/26/20 05/26/20 morphine concentrate 10 mg SUBLINGUAL Q1H PRN 05/26/20 05/26/20 multivitamin 1 tab PO DAILY 05/26/20 05/26/20 nystatin 1 applic TOPICAL TID 05/26/20 05/26/20 nystatin 1 unit PO BID 05/26/20 05/26/20 oxycodone 5 mg PO Q12H 05/26/20 05/26/20 oxycodone 5 mg PO Q6H PRN 05/26/20 05/26/20 polyethylene glycol 3350 [Miralax] 17 g PO DAILY 05/26/20 05/26/20 promethazine 25 mg IM Q6H PRN 05/26/20 05/26/20 promethazine 25 mg PO Q6H PRN 05/26/20 05/26/20 torsemide 20 mg PO DAILY 05/26/20 05/26/20 Previous Rx's Medication Instructions Recorded ciprofloxacin HCl 500 mg PO BID #14 tab 05/30/20 Results & Data (ED) Vital Signs Vital Signs - 24 hr 06/26/20 22:20 06/26/20 22:21 06/26/20 22:23 Temperature 36.9 C Temperature Source Oral Pulse Rate 122 H 121 H 130 H Pulse Rate [Right Finger] Pulse Rate from SpO2 Sensor 133 H 109 H 124 H Pulse Rhythm Regular Pulse Strength Normal Respiratory Rate 16 25 H 28 H Respiratory Effort / Characteristics Non-Labored Spontaneous Respiratory Depth Normal Respiratory Pattern Blood Pressure 60/42 L 135/95 Blood Pressure Mean 45 98 100 Blood Pressure Position Lying Pulse Oximetry 96 95 94 Oxygen Delivery Method BiPAP Fraction of Inspired Oxygen Sepsis Recent Fever Within 48 Hours No Sepsis New/Unexplained Change in Mental Status N/A Sepsis Action Taken by Nursing Previously Notified 06/26/20 22:30 06/26/20 22:31 06/26/20 22:34 Temperature Temperature Source Pulse Rate 122 H 128 H 134 H Pulse Rate [Right Finger] Pulse Rate from SpO2 Sensor Pulse Rhythm Pulse Strength Respiratory Rate 24 22 34 H Respiratory Effort / Characteristics Spontaneous Labored Short of Breath Respiratory Depth Respiratory Pattern Tachypnea Blood Pressure 63/46 L Blood Pressure Mean 48 Blood Pressure Position Pulse Oximetry 98 Oxygen Delivery Method Fraction of Inspired Oxygen 50 Sepsis Recent Fever Within 48 Hours Sepsis New/Unexplained Change in Mental Status Sepsis Action Taken by Nursing 06/26/20 22:36 06/26/20 22:37 06/26/20 22:40 Temperature Temperature Source Pulse Rate 122 H 135 H Pulse Rate [Right Finger] 134 H Pulse Rate from SpO2 Sensor 126 H Pulse Rhythm Pulse Strength Respiratory Rate 34 H 31 H 28 H Respiratory Effort / Characteristics Spontaneous Labored Short of Breath Respiratory Depth Respiratory Pattern Blood Pressure 63/40 L Blood Pressure Mean 44 Blood Pressure Position Pulse Oximetry 698 H 99 Oxygen Delivery Method BiPAP Fraction of Inspired Oxygen 60 Sepsis Recent Fever Within 48 Hours Sepsis New/Unexplained Change in Mental Status Sepsis Action Taken by Nursing 06/26/20 22:43 06/26/20 22:45 06/26/20 22:50 Temperature Temperature Source Pulse Rate 145 H 143 H Pulse Rate [Right Finger] Pulse Rate from SpO2 Sensor 124 H 164 H Pulse Rhythm Pulse Strength Respiratory Rate 31 H 20 Respiratory Effort / Characteristics Respiratory Depth Respiratory Pattern Blood Pressure 76/54 L Blood Pressure Mean 59 Blood Pressure Position Pulse Oximetry 94 93 Oxygen Delivery Method Room Air Fraction of Inspired Oxygen Sepsis Recent Fever Within 48 Hours Sepsis New/Unexplained Change in Mental Status Sepsis Action Taken by Nursing 06/26/20 22:52 06/26/20 23:00 06/26/20 23:10 Temperature Temperature Source Pulse Rate 130 H 126 H 131 H Pulse Rate [Right Finger] Pulse Rate from SpO2 Sensor 127 H 121 H 122 H Pulse Rhythm Pulse Strength Respiratory Rate 28 H 21 24 Respiratory Effort / Characteristics Respiratory Depth Respiratory Pattern Blood Pressure 85/49 L Blood Pressure Mean 58 Blood Pressure Position Pulse Oximetry 95 98 98 Oxygen Delivery Method CPAP Fraction of Inspired Oxygen Sepsis Recent Fever Within 48 Hours Sepsis New/Unexplained Change in Mental Status Sepsis Action Taken by Nursing 06/26/20 23:13 06/26/20 23:16 06/26/20 23:17 Temperature Temperature Source Pulse Rate 125 H 127 H 128 H Pulse Rate [Right Finger] Pulse Rate from SpO2 Sensor 123 H 133 H 126 H Pulse Rhythm Pulse Strength Respiratory Rate 21 23 28 H Respiratory Effort / Characteristics Respiratory Depth Respiratory Pattern Blood Pressure 151/123 H 61/48 L 73/46 L Blood Pressure Mean 137 51 54 Blood Pressure Position Pulse Oximetry 98 98 99 Oxygen Delivery Method Fraction of Inspired Oxygen Sepsis Recent Fever Within 48 Hours Sepsis New/Unexplained Change in Mental Status Sepsis Action Taken by Nursing 06/26/20 23:20 06/26/20 23:30 06/26/20 23:40 Temperature Temperature Source Pulse Rate 119 H 134 H 125 H Pulse Rate [Right Finger] Pulse Rate from SpO2 Sensor 119 H 125 H 121 H Pulse Rhythm Pulse Strength Respiratory Rate 25 H 19 17 Respiratory Effort / Characteristics Respiratory Depth Respiratory Pattern Blood Pressure Blood Pressure Mean Blood Pressure Position Pulse Oximetry 100 97 97 Oxygen Delivery Method Fraction of Inspired Oxygen Sepsis Recent Fever Within 48 Hours Sepsis New/Unexplained Change in Mental Status Sepsis Action Taken by Nursing 06/26/20 23:47 06/26/20 23:50 06/26/20 23:59 Temperature Temperature Source Pulse Rate 128 H 119 H 110 H Pulse Rate [Right Finger] Pulse Rate from SpO2 Sensor 127 H 111 H Pulse Rhythm Pulse Strength Respiratory Rate 25 H 26 H 22 Respiratory Effort / Characteristics Respiratory Depth Respiratory Pattern Blood Pressure 77/59 L 72/34 L Blood Pressure Mean 62 46 Blood Pressure Position Pulse Oximetry 98 98 Oxygen Delivery Method Fraction of Inspired Oxygen Sepsis Recent Fever Within 48 Hours Sepsis New/Unexplained Change in Mental Status Sepsis Action Taken by Nursing 06/27/20 00:00 06/27/20 00:02 06/27/20 00:10 Temperature Temperature Source Pulse Rate 111 H 110 H 111 H Pulse Rate [Right Finger] Pulse Rate from SpO2 Sensor 120 H 109 H 114 H Pulse Rhythm Pulse Strength Respiratory Rate 22 25 H 23 Respiratory Effort / Characteristics Respiratory Depth Respiratory Pattern Blood Pressure 78/44 L Blood Pressure Mean 49 Blood Pressure Position Pulse Oximetry 98 98 97 Oxygen Delivery Method Fraction of Inspired Oxygen Sepsis Recent Fever Within 48 Hours Sepsis New/Unexplained Change in Mental Status Sepsis Action Taken by [facility] Medications Current Medication List: was personally reviewed by me Laboratory Data Attestation: I reviewed the patient's lab results. Result diagrams: 06/26/20 23:46 06/26/20 23:46 Lab Results 06/26/20 06/26/20 06/26/20 Range/Units 23:15 23:15 23:46 WBC 22.79 H (4.8-10.8) K/uL RBC 4.27 L (4.7-6.1) M/uL Hgb 12.9 L (14.0-18.0) g/dL Hct 39.3 L (42-52) % MCV 92.0 (80-100) fL MCH 30.2 (25-34) pg MCHC 32.8 (32-36) g/dL RDW Std Deviation 59.8 H (36.4-46.3) fL RDW Coeff of Shadi 18.0 H (11.5-14.5) % Plt Count 331 (130-400) K/uL MPV 10.1 (7.4-10.4) fL Immature Gran % (Auto) 0.8 % Neut % (Auto) 94.5 % Lymph % (Auto) 3.0 % [place] % (Auto) 1.6 % Eos % (Auto) 0.0 % Baso % (Auto) 0.1 % Neut # (Auto) 21.51 H (1.4-6.5) K/uL Lymph # (Auto) 0.69 L (1.2-3.4) K/uL [place] # (Auto) 0.37 (0.11-0.59) K/uL Eos # (Auto) 0.01 (0-0.5) K/uL Baso # (Auto) 0.02 (0-0.2) K/uL Immature Gran # (Auto) 0.19 H (0.00-0.02) K/uL PT (9.0-12.0) Seconds INR (0.9-1.1) APTT (21.0-31.0) Seconds PTT Ratio Sodium (136-145) mmol/L Potassium (3.5-5.1) mmol/L Chloride (98-107) mmol/L Carbon Dioxide (21-32) mmol/L Anion Gap (3-11) BUN (7-18) mg/dl Creatinine (0.6-1.4) mg/dl Est Cr Clr Drug Dosing ml/min Est GFR ( Amer) Est GFR (Non-Af Amer) BUN/Creatinine Ratio (10-20) Glucose (70-99) mg/dl Lactate (0.4-2.0) mmol/L Calcium (8.5-10.1) mg/dl Magnesium (1.8-2.4) mg/dl Total Bilirubin (0.2-1) mg/dl AST (15-37) U/L ALT (12-78) U/L Alkaline Phosphatase (45-117) U/L Troponin I (0-0.045) ng/ml NT-Pro-B Natriuret Pep (0-1800) pg/ml Total Protein (6.4-8.2) gm/dl Albumin (3.4-5.0) gm/dl Globulin (2.5-4.0) gm/dl Albumin/Globulin Ratio (0.9-2) COVID-19 [facility] SARS-[facility]-2, RNA, NAAT NEGATIVE (NEGATIVE) 06/26/20 06/26/20 06/26/20 Range/Units 23:46 23:46 23:46 WBC (4.8-10.8) K/uL RBC (4.7-6.1) M/uL Hgb (14.0-18.0) g/dL Hct (42-52) % MCV (80-100) fL MCH (25-34) pg MCHC (32-36) g/dL RDW Std Deviation (36.4-46.3) fL RDW Coeff of Shadi (11.5-14.5) % Plt Count (130-400) K/uL MPV (7.4-10.4) fL Immature Gran % (Auto) % Neut % (Auto) % Lymph % (Auto) % [place] % (Auto) % Eos % (Auto) % Baso % (Auto) % Neut # (Auto) (1.4-6.5) K/uL Lymph # (Auto) (1.2-3.4) K/uL [place] # (Auto) (0.11-0.59) K/uL Eos # (Auto) (0-0.5) K/uL Baso # (Auto) (0-0.2) K/uL Immature Gran # (Auto) (0.00-0.02) K/uL PT 15.9 H (9.0-12.0) Seconds INR 1.5 H (0.9-1.1) APTT 34.2 H (21.0-31.0) Seconds PTT Ratio 1.2 Sodium 139 (136-145) mmol/L Potassium 4.1 (3.5-5.1) mmol/L Chloride 107 (98-107) mmol/L Carbon Dioxide 18 L (21-32) mmol/L Anion Gap 14.0 H (3-11) BUN 38 H (7-18) mg/dl Creatinine 2.21 H (0.6-1.4) mg/dl Est Cr Clr Drug Dosing 37.1 ml/min Est GFR ( Amer) 31.7 Est GFR (Non-Af Amer) 27.3 BUN/Creatinine Ratio 17.4 (10-20) Glucose 123 H (70-99) mg/dl Lactate 8.2 H* (0.4-2.0) mmol/L Calcium 7.7 L (8.5-10.1) mg/dl Magnesium 1.4 L (1.8-2.4) mg/dl Total Bilirubin 3.6 H (0.2-1) mg/dl AST 234 H (15-37) U/L ALT 74 (12-78) U/L Alkaline Phosphatase 723 H (45-117) U/L Troponin I 0.074 H* (0-0.045) ng/ml NT-Pro-B Natriuret Pep 64078 H (0-1800) pg/ml Total Protein 6.2 L (6.4-8.2) gm/dl Albumin 1.7 L (3.4-5.0) gm/dl Globulin 4.5 H (2.5-4.0) gm/dl Albumin/Globulin Ratio 0.4 L (0.9-2) COVID-19 Eval Order SARS-CoV-2, RNA, NAAT (NEGATIVE) Administered Medications Sodium Chloride (Nss 1000ml) 1,000 mls @ 999 mls/hr IV .Q1H1M ONE Stop: 06/27/20 01:47 Last Admin: 06/27/20 00:53 Dose: 999 mls/hr Documented by: [id number] Albumin Human (Albumin 25%) 12.5 gm in 50 mls @ 50 mls/hr IV Q1H MARIYA Stop: 06/27/20 04:59 Last Admin: 06/27/20 01:00 Dose: 50 mls/hr Documented by: [id number] Magnesium Sulfate/Dextrose (Magnesium Sulfate / D5w) 1 gm in 100 mls @ 100 mls/hr IV NOW STA Stop: 06/27/20 02:10 Last Admin: 06/27/20 01:16 Dose: 200 mls/hr Documented by: [id number] Discontinued Medications Albuterol (Albut/Ipratrop 3mg/0.5mg Neb 3 Ml Vial) Confirm Administered Dose 3 ml .ROUTE .STK-MED ONE Stop: 06/26/20 22:29 Last Admin: 06/26/20 22:55 Dose: Not Given Documented by: [id number] Albuterol (Albut/Ipratrop 3mg/0.5mg Neb 3 Ml Vial) 3 ml NEB NOW STA Stop: 06/26/20 22:26 Last Admin: 06/26/20 22:34 Dose: 3 ml Documented by: [id number] Lorazepam (Ativan) 0.5 mg in 1 mls @ 1 mls/min IV NOW STA Stop: 06/26/20 22:52 Last Admin: 06/26/20 22:54 Dose: 1 mls/min Documented by: [id number] Sodium Chloride (Nss 1000ml) 1,000 mls @ 999 mls/hr IV .Q1H1M ONE Stop: 06/26/20 23:52 Last Infusion: 06/27/20 00:12 Dose: 0 mls/hr Documented by: [id number] Admin: 06/26/20 22:55 Dose: 999 mls/hr Documented by: [id number] Cefepime HCl (Maxipime) 2,000 mg in 20 mls @ 5 mls/min IV NOW STA; Protocol Stop: 06/26/20 23:21 Last Admin: 06/27/20 00:03 Dose: 5 mls/min Documented by: [id number] Sodium Chloride (Nss) 500 mls @ 125 mls/hr IV .Q4H MARIYA Stop: 07/26/20 23:44 Last Admin: 06/27/20 00:16 Dose: Not Given Documented by: [id number] Lorazepam (Ativan) 0.5 mg in 1 mls @ 1 mls/min IV NOW STA Stop: 06/26/20 23:46 Last Admin: 06/27/20 00:03 Dose: 1 mls/min Documented by: [id number] Sodium Chloride (Nss 1000ml) 500 mls @ 999 mls/hr IV .Q31M ONE Stop: 06/27/20 00:42 Last Admin: 06/27/20 00:15 Dose: 999 mls/hr Documented by: [id number] Lorazepam (Lorazepam 2 Mg/4 Ml Vial) Confirm Administered Dose 2 mg .ROUTE .STK- MED ONE Stop: 06/26/20 22:24 Last Increment: 06/26/20 22:56 Dose: 0.5 mg Documented by: [id number] Lorazepam (Lorazepam 2 Mg/4 Ml Vial) Confirm Administered Dose 2 mg .ROUTE .STK- MED ONE Stop: 06/26/20 22:52 Last Admin: 06/26/20 22:56 Dose: Not Given Documented by: [id number] Metoprolol Tartrate (Metoprolol Tartrate 1 Mg/Ml Vial) Confirm Administered Dose 5 mg IV .STK-MED ONE Stop: 06/26/20 22:23 Last Admin: 06/27/20 00:11 Dose: Not Given Documented by: [id number] Nitroglycerin (Nitroglycerin 2% Ointment 30gm Tube) Confirm Administered Dose 18 inch .ROUTE .STK-MED ONE Stop: 06/26/20 22:24 Last Admin: 06/26/20 22:55 Dose: Not Given Documented by: [id number] Sodium Bicarbonate (Sodium Bicarb 8.4% Inj 50 Meq/50 Ml Syr) 50 meq IV NOW STA Stop: 06/27/20 01:01 Last Admin: 06/27/20 01:16 Dose: 50 meq Documented by: [id number] Imaging Data Attestation: I personally reviewed and interpreted this imaging study as follows: My Impression: Chest x-ray: There are some chronic changes especially at the left base. There was no obvious pneumonia or CHF. No pneumothorax. Chest x- ray looked similar to previous films. Radiologist's Impression: Abdominal and pelvis CT without contrast: The liver spleen and pancreas appeared normal. The gallbladder was surgically absent. There was some stool in the colon. The appendix was visualized and was not infl rashida. There was no bowel obstruction. There was no hydronephrosis. The Baires catheter was in the bladder. There was a potential airspace opacity at the left lung base with a small amount of pleural fluid. There was concern for the possibility of aspiration pneumonia. Discharge Plan Visit Data Chief Complaint: Respiratory Distress ED Provider: Bernardo Jerez Discharge Problem: Sepsis, Atrial fibrillation with rapid ventricular response, CIERRA (acute kidney injury), Acute respiratory distress, Hypotension, Elevated liver enzymes, Hypomagnesemia Patient Disposition: Admitted As Inpatient Condition: Critical Forms Stand Alone Forms: My [facility] Prescriptions Prescriptions: No Action metformin 500 mg Tablet 500 mg PO QAM RF: 0 metoprolol succinate 200 mg tablet extended release 24 hr 200 mg PO DAILY RF: 0 pantoprazole 40 mg Tablet,Delayed Release (Dr/Ec) 40 mg PO BID RF: 0 ferrous sulfate 325 mg (65 mg iron) Tablet 325 mg PO BID RF: 0 finasteride 5 mg tablet 5 mg PO DAILY RF: 0 levetiracetam 500 mg Tablet 500 mg PO BID RF: 0 aspirin [Aspirin Childrens] 81 mg Tablet,Chewable 81 mg PO DAILY RF: 0 guaifenesin 100 mg/5 mL Syrup 200 mg PO Q4H PRN (Reason: Cough) RF: 0 vitamin A and D Ointment 1 applic TOPICAL QS RF: 0 acetaminophen 500 mg Tablet 1,000 mg PO BID MDD 3g RF: 0 ascorbic acid (vitamin C) 500 mg Tablet 500 mg PO BID RF: 0 oxycodone [OxyContin] 20 mg Tablet,Oral Only,Ext.Rel.12 Hr 20 mg PO Q12H RF: 0 nystatin 100,000 unit/gram Cream 1 applic TOPICAL BID RF: 0 potassium chloride 10 mEq tablet,ER particles/crystals 10 meq PO DAILY RF: 0 Januvia 50 mg tablet 50 mg PO DAILY RF: 0 docusate sodium 100 mg Capsule 200 mg PO HS RF: 0 lorazepam 0.5 mg Tablet 0.5 mg PO Q8 PRN (Reason: Anxiety) RF: 0 melatonin 3 mg Tablet 3 mg PO HS RF: 0 magnesium hydroxide [Milk of Magnesia] 400 mg/5 mL Suspension 30 ml PO DAILY PRN (Reason: Constipation) RF: 0 polyethylene glycol 3350 [Miralax] 17 gram/dose Powder 17 g PO DAILY RF: 0 multivitamin Tablet 1 tab PO DAILY RF: 0 oxycodone 5 mg tablet 5 mg PO Q6H PRN (Reason: .PAIN # 5-10) RF: 0 promethazine 25 mg tablet 25 mg PO Q6H PRN (Reason: Nausea And Vomiting) RF: 0 torsemide 20 mg tablet 20 mg PO DAILY RF: 0 acetaminophen [Tylenol] 325 mg Tablet 650 mg PO Q6 MDD 3G PRN (Reason: Fever Or Pain) RF: 0 Referrals Referrals: Edvin Dias [Primary Care Provider] - Discharge Problem: Sepsis Qualifiers: Sepsis type: sepsis due to unspecified organism Sepsis acute organ dysfunction status: with acute organ dysfunction Severe sepsis acute organ dysfunction type: acute renal failure Acute renal failure type: unspecified Severe sepsis shock status: with septic shock Qualified Code(s): A41.9 - Sepsis, unspecified organism Hypotension Qualifiers: Hypotension type: unspecified hypotension type Qualified Code(s): I95.9 - Hypotension, unspecified
[2020-06-26] MEDS ORDERED: LORazepam 0.5 MG/1 ML VIAL IV STA ×2 (22:51→23:45)
[2020-06-26] MEDS ORDERED: SODIUM CHLORIDE 0.9% 1000ML 1,000 ML IV ONE (22:52)
[2020-06-26] MEDS ORDERED: CEFEPIME 2,000 MG/20 ML VIAL IV STA (23:18)
[2020-06-26] MEDS ORDERED: SODIUM CHLORIDE 0.9% 500 ML IV SCH (23:45)
[2020-06-26 23:56] LABS: Hematocrit (blood only) 39.3 % (42-52); Hemoglobin 12.9 g/dL (14.0-18.0); Mean Corpuscular Hemoglobin 30.2 pg (25-34); Mean Corpuscular Hgb Conc 32.8 g/dL (32-36); Mean Platelet Volume 10.1 fL (7.4-10.4); Platelet Count 331 K/uL (130-400); RDW Standard Deviation 59.8 fL (36.4-46.3); Red Blood Count 4.27 M/uL (4.7-6.1); White Blood Count 22.79 K/uL (4.8-10.8)
[2020-06-27 00:06] LABS: INR 1.5 (0.9-1.1); Partial Thromboplastin Ratio 1.2; Partial Thromboplastin Time 34.2 Seconds (21.0-31.0); Prothrombin Time 15.9 Seconds (9.0-12.0)
[2020-06-27] MEDS ORDERED: SODIUM CHLORIDE 0.9% 1000ML 500 ML IV ONE (00:12)
[2020-06-27 00:18] LABS: Albumin Level 1.7 gm/dl (3.4-5.0); BUN Creatinine Ratio 17.4 (10-20); Calcium 7.7 mg/dl (8.5-10.1); Creatinine Clr Calc Pharmacy 37.1 ml/min; Est GFR (African American) 31.7; Est GFR (Non-African American) 27.3; Magnesium 1.4 mg/dl (1.8-2.4); Potassium 4.1 mmol/L (3.5-5.1)
[2020-06-27 00:38] LABS: Basophils # (auto) 0.02 K/uL (0-0.2); Basophils % (auto) 0.1 %; Eosinophils # (auto) 0.01 K/uL (0-0.5); Immature Granulocytes # (auto) 0.19 K/uL (0.00-0.02); Immature Granulocytes % (auto) 0.8 %; Lymphocytes # (auto) 0.69 K/uL (1.2-3.4); Monocytes # (auto) 0.37 K/uL (0.11-0.59); Monocytes % (auto) 1.6 %; Neutrophils # (auto) 21.51 K/uL (1.4-6.5); Neutrophils % (auto) 94.5 %
[2020-06-27 00:45] LABS: Albumin Globulin Ratio 0.4 (0.9-2); Bilirubin,Total 3.6 mg/dl (0.2-1); Globulin 4.5 gm/dl (2.5-4.0); Total Protein 6.2 gm/dl (6.4-8.2); Troponin I 0.074 ng/ml (0-0.045)
[2020-06-27] MEDS ORDERED: SODIUM CHLORIDE 0.9% 1000ML 1,000 ML IV ONE (00:47)
[2020-06-27] MEDS ORDERED: ALBUMIN HUMAN 25% 12.5 GM/50 ML VIAL IV ONE ×3 (00:54→00:59)
[2020-06-27] MEDS: MAGNESIUM SULFATE / D5W 1 GM/100 ML BAG IV STA (01:00)
[2020-06-27] MEDS ORDERED: SODIUM BICARB 8.4% INJ 50 MEQ/50 ML SYR IV STA (01:00)
[2020-06-27] MEDS: ALBUMIN 25% 12.5 GM/50 ML VIAL IV SCH ×6 (01:00→05:04)
[2020-06-27] MEDS: MAGNESIUM SULFATE / D5W 1 GM/100 ML BAG IV SCH ×2 (01:25→01:43)
[2020-06-27] MEDS ORDERED: SODIUM BICARBONATE 8.4% INJ 50 MEQ/50 ML VIAL IV STA (01:34)
[2020-06-27] MEDS ORDERED: STAT IV Infusion **Titration per Protocol STA (02:01)
[2020-06-27] MEDS: NOREPINEPHRINE/D5W 8 MG/508 ML BAG IV SCH ×2 (02:07→21:59)
[2020-06-27] MEDS ORDERED: ICU PROTOCOL FOR HYPERGLYCEMIA PRN (03:11)
[2020-06-27] MEDS ORDERED: DAPTOmycin 400 MG in SYRINGE 0 ML IV SCH (04:00)
[2020-06-27] MEDS: SODIUM CHLORIDE 0.9% 1000ML 1,000 ML IV SCH ×3 (04:00→21:59)
[2020-06-27 05:03] LABS: INR 1.5 (0.9-1.1); Prothrombin Time 15.8 Seconds (9.0-12.0)
[2020-06-27 05:15] LABS: Albumin Level 2.5 gm/dl (3.4-5.0); BUN Creatinine Ratio 16.8 (10-20); Creatinine Clr Calc Pharmacy 36.1 ml/min; Est GFR (African American) 31.5; Est GFR (Non-African American) 27.2; Potassium 3.8 mmol/L (3.5-5.1)
--- NOTE | 2020-06-27 05:15 | History & Physical Report ---
Date of Service June 27, 2020 Assessment & Plan (1) Septic shock: Septic shock/recent Proteus mirabilis septicemia/catheter associated urinary tract infections/stage II buttock ulcer- In the emergency department, patient received the followin L normal saline, 50 g of albumin IV, 2 amps of sodium bicarbonate IV and was started on Levophed drip. Continue IV fluids with NSS plus KCl 20 mEq at 100 mils per hour. Patient is a DNR/DNI. Conversation with his reports that he would want pressors to be utilized while any underlying infection was to be treated Check ABG. Present on Admission?: Yes (2) Proteus septicemia: See above Present on Admission?: Yes (3) Catheter-associated urinary tract infection: Previous urinary tract infections: 06/18/2019 Morganella, 11/10/2019 Klebsiella, 02/13/2020 Pseudomonas resistant to aztreonam and intermediate to gentamicin. Patient is allergic to amoxicillin. Cefepime 1 g IV every 12 hours. Continue indwelling Baires catheter Present on Admission?: Yes (4) PNA (pneumonia): Pneumonia/hypoxia- CT suggests aspiration pneumonia left lower lobe. Initial antibiotics were daptomycin IV and cefepime IV to cover urine and decubitus. Which has been changed to Zyvox IV and cefepime IV, avoiding nephrotoxic effect of vancomycin with his associated acute kidney injury. Patient had been empirically placed on BiPAP by the ED upon arrival. Pulse ox with 6 L oxymask was 95 to 98%. Follow serial chest x-rays. Present on Admission?: Yes (5) Seizures: Change Keppra from 500 mg p.o. twice daily to 500 mg IV twice daily Present on Admission?: Yes (6) Atrial fibrillation: Hold aspirin, metoprolol succinate, torsemide and potassium. Present on Admission?: Yes (7) Stage II pressure ulcer of buttock: Consulting wound care. Nurses noted fecal material in wound. Antibiotics as above Present on Admission?: Yes (8) Acute kidney injury: Creatinine 2.21 upon admission, with most recent at discharge on 05/30 was 1.23. Repeat laboratories in a.m. Present on Admission?: Yes (9) Lactic acidosis: Lactate initially 8.2, with follow-up 8.4 but treatment was still undergoing. We will follow serially Present on Admission?: Yes (10) Hypomagnesemia: Received 90 cm sulfate total of 3 g IV in the ED. Follow with serial laboratories Present on Admission?: Yes (11) Hypoalbuminemia: Albumin of 1.7 contributing significantly to hypotension. We will continue albumin supplementation 25 g q. 1 hour x 5 doses. Present on Admission?: Yes (12) Chronic indwelling Baries catheter: Continue Present on Admission?: Yes (13) Diabetes mellitus: Hold Januvia, and Metformin. ICU glycemic protocol Present on Admission?: Yes Admission and Anticipated Discharge Date Admission Date: June 27, 2020 History of Present Illness Chief Complaint: The patient presents to the emergency department via ambulance from [facility] with complaint of acute onset of shortness of breath, increased heart rate and hypoxia. He was placed on CPAP via EMS in route without any improvement in breathing Primary Care Provider: [facility] The patient is a 79-year-old male with a past medical history including atrial fibrillation with rapid ventricular response, acquired buried penis, urinary re tention with incomplete bladder emptying, acute kidney injury, chronic pain syndrome, obesity, liver cirrhosis, acute diastolic CHF, abdominal wall cellulitis, scrotal cellulitis, catheter associated urinary tract infection, gram-negative sepsis, gram-negative bacteremia, diabetes mellitus, diabetic polyneuropathy, demand ischemia, seizure disorder, sepsis, hyperlipidemia, BPH with LUTS, history of C. difficile colitis, history of ureteral stent, intramuscular hematoma, stage II pressure ulcer of buttock, JUAN MANUEL, pneumonia, chronic venous insufficiency, acute encephalopathy, esophageal candidiasis, unsteady gait, peripheral arterial disease, rhabdomyolysis, diabetic toe ulcer, Horvath's esophagus, ICH, gastric ulcer with hemorrhage, hypertension, right total hip arthroplasty, morbid obesity. His most recent hospital admission was from 05/26-05/30/2020 due to Proteus bacteremia and sepsis secondary to urinary tract infection. In the emergency department, patient was treated for septic shock. He was placed on daptomycin IV and cefepime IV to cover stage II buttock infection and recurrent urinary tract infection. He was given 3 L of normal saline, 50 g of albumin IV, 2 amps of sodium bicarbonate IV. His systolic blood pressure had dropped to the mid 70s upon arrival, and then improved with the above therapy to 90, and when he decreased back to the 70s again he was started on Levophed infusion. His oxygen saturation upon arrival was initially in the mid 70s on room air, and he was placed on BiPAP by the ED with improvement in pulse ox to the mid 90s. The patient was able to be returned to oxime mask 6 L with pulse ox in the 95- 98% range. Allergies Allergy/AdvReac Type Severity Reaction Status Date / Time metronidazole Allergy Severe Unknown Verified 06/27/20 01:47 amoxicillin Allergy Intermediate Rash Verified 06/27/20 01:47 Home Medications Medication Instructions Recorded Confirmed Type ferrous sulfate 325 mg PO BID 06/16/18 06/27/20 History finasteride 5 mg PO DAILY 06/16/18 06/27/20 History metformin 500 mg PO QAM 06/16/18 06/27/20 History metoprolol succinate 200 mg PO DAILY 06/16/18 06/27/20 History pantoprazole 40 mg PO BID 06/16/18 06/27/20 History levetiracetam 500 mg PO BID 03/16/19 06/27/20 History Januvia 50 mg PO DAILY 06/17/19 06/27/20 History potassium chloride 10 meq PO DAILY 06/17/19 06/27/20 History acetaminophen [Tylenol] 650 mg PO Q6 PRN MDD 3G 05/26/20 06/27/20 History docusate sodium 200 mg PO HS 05/26/20 06/27/20 History lorazepam 0.5 mg PO Q8 PRN 05/26/20 06/27/20 History magnesium hydroxide [Milk of 30 ml PO DAILY PRN 05/26/20 06/27/20 History Magnesia] melatonin 3 mg PO HS 05/26/20 06/27/20 History multivitamin 1 tab PO DAILY 05/26/20 06/27/20 History oxycodone 5 mg PO Q6H PRN 05/26/20 06/27/20 History polyethylene glycol 3350 [Miralax] 17 g PO DAILY 05/26/20 06/27/20 History promethazine 25 mg PO Q6H PRN 05/26/20 06/27/20 History torsemide 20 mg PO DAILY 05/26/20 06/27/20 History acetaminophen 1,000 mg PO BID MDD 3g 06/27/20 06/27/20 History ascorbic acid (vitamin C) 500 mg PO BID 06/27/20 06/27/20 History aspirin [Aspirin Childrens] 81 mg PO DAILY 06/27/20 06/27/20 History guaifenesin 200 mg PO Q4H PRN 06/27/20 06/27/20 History nystatin 1 applic TOPICAL BID 06/27/20 06/27/20 History oxycodone [OxyContin] 20 mg PO Q12H 06/27/20 06/27/20 History vitamin A and D 1 applic TOPICAL QS 06/27/20 06/27/20 History Past Med/Surg History Medical History (Updated 06/27/20 @ 05:48 by Govind Jay MD) 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 Acute urinary retention Atrial fibrillation with RVR Barretts esophagus Benign hypertension BPH without urinary obstruction Callus Chronic a-fib Chronic diastolic CHF (congestive heart failure) Chronic indwelling Baires catheter Chronic venous insufficiency Complicated UTI (urinary tract infection) 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, with fat layer exposed Diverticulosis of colon (without mention of hemorrhage) DM (diabetes mellitus), type 2, uncontrolled w/ophthalmic complication Esophageal candidiasis Exertional dyspnea Gastric ulcer with hemorrhage but without obstruction H/O Clostridium difficile infection Hemangioma of skin History of chronic atrial fibrillation Hypertension Hypoxia ICH (intracerebral hemorrhage) Morbid obesity Open wound of scrotum JUAN MANUEL (obstructive sleep apnea) Peripheral arterial disease Rhabdomyolysis Scrotal varicose veins Skin ulcer of left foot including toes Symptomatic anemia Urinary retention Surgical History History of total replacement of right hip S/P cholecystectomy S/P tonsillectomy and adenoidectomy Family History Other No significant family history Social History Smoking Status: Never smoker Second Hand Exposure: No; Hx Alcohol Use: No Hx Substance Use: No Preferred Language: Albanian 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 Ability: Effective Product Operations Associate Required: No Beliefs That Will Affect Care: None marital status: Current Living Situation: Half-Way Current Living Situation Comment: Home with spouse Other Information That Helps Us Care for You: No Feels Safe at Home: Yes Safety Concerns: Feels Safe At This Time Assistive Devices: Oxygen - Continuous Review of Systems Review of Systems: Unobtainable due to cognitive status Physical Exam Physical Exam: The patient is awake, lethargic, normocephalic and atraumatic, lying in bed and in moderate distress. HEENT--PERRL, EOMI, mucous membranes and oropharynx dry. Neck--supple. No JVD. No bruits. Thyroid normal, trachea midline, no adenopathy. Heart--normal S1 and S2. No murmurs, rubs or gallops. Lungs--coarse breath sounds bilaterally. Moderate respiratory distress with accessory muscle use. Abdomen--normal bowel sounds and soft. Nontender. Nondistended. Morbidly obese Extremities--no cyanosis or clubbing. No edema. Dermatologic--normal skin turgor, normal color, no abnormal lymph nodes, no rash. Neurologic--cranial nerves II through XII grossly intact. Rheumatologic--limited exam Psychiatric--intermittently lethargic. Results & Data Results & Data ([facility]) Vital Signs (Past 12 Hours) Vital Signs Temp Pulse Pulse Pulse Resp BP BP 06/27/20 03:40 97.9 F 102 H 18 96/45 L 06/27/20 03:25 102 H 17 88/58 L 06/27/20 03:11 104 H 24 100/58 L 06/27/20 03:03 97.9 F 104 H 20 100/58 L 06/27/20 02:50 103 H 26 H 108/59 L 06/27/20 02:45 101 H 21 108/59 L 06/27/20 02:30 99 H 19 102/54 L 06/27/20 02:20 98 H 17 06/27/20 02:15 99 H 18 97/56 L 06/27/20 02:10 101 H 24 97/56 L 06/27/20 02:00 102 H 21 83/46 L 06/27/20 01:50 96 H 23 06/27/20 01:45 104 H 17 75/43 L 06/27/20 01:40 103 H 14 75/43 L 06/27/20 01:30 99 H 32 H 83/41 L 06/27/20 01:22 95 H 20 77/45 L 06/27/20 01:20 107 H 16 89/61 L 06/27/20 01:15 105 H 19 90/68 L 06/27/20 01:10 119 H 23 06/27/20 01:00 109 H 21 81/48 L 06/27/20 00:50 110 H 25 H 06/27/20 00:45 115 H 23 89/42 L 06/27/20 00:44 109 H 24 69/38 L 06/27/20 00:42 110 H 23 80/41 L 06/27/20 00:30 06/27/20 00:20 113 H 18 06/27/20 00:15 120 H 24 68/43 L 06/27/20 00:10 111 H 23 06/27/20 00:02 110 H 25 H 06/27/20 00:00 111 H 22 78/44 L 06/26/20 23:59 110 H 22 72/34 L 06/26/20 23:50 119 H 26 H 06/26/20 23:47 128 H 25 H 77/59 L 06/26/20 23:40 125 H 17 06/26/20 23:30 134 H 19 06/26/20 23:20 119 H 25 H 06/26/20 23:17 128 H 28 H 73/46 L 06/26/20 23:16 127 H 23 61/48 L 06/26/20 23:13 125 H 21 151/123 H 06/26/20 23:10 131 H 24 06/26/20 23:00 126 H 21 06/26/20 22:52 130 H 28 H 85/49 L 06/26/20 22:50 143 H 20 06/26/20 22:45 145 H 31 H 76/54 L 06/26/20 22:40 135 H 28 H 06/26/20 22:37 122 H 31 H 63/40 L 06/26/20 22:36 134 H 34 H 06/26/20 22:34 134 H 34 H 06/26/20 22:31 128 H 22 63/46 L 06/26/20 22:30 122 H 24 06/26/20 22:23 98.4 F 130 H 28 H 135/95 06/26/20 22:21 121 H 25 H 06/26/20 22:20 122 H 16 60/42 L Pulse Ox 06/27/20 03:40 99 06/27/20 03:25 99 06/27/20 03:11 93 06/27/20 03:03 98 06/27/20 02:50 94 06/27/20 02:45 91 06/27/20 02:30 95 06/27/20 02:20 96 06/27/20 02:15 96 06/27/20 02:10 93 06/27/20 02:00 94 06/27/20 01:50 91 06/27/20 01:45 96 06/27/20 01:40 98 06/27/20 01:30 97 06/27/20 01:22 98 06/27/20 01:20 98 06/27/20 01:15 100 06/27/20 01:10 96 06/27/20 01:00 96 06/27/20 00:50 96 06/27/20 00:45 98 06/27/20 00:44 98 06/27/20 00:42 100 06/27/20 00:30 99 06/27/20 00:20 95 06/27/20 00:15 97 06/27/20 00:10 97 06/27/20 00:02 98 06/27/20 00:00 98 06/26/20 23:59 98 06/26/20 23:50 06/26/20 23:47 98 06/26/20 23:40 97 06/26/20 23:30 97 06/26/20 23:20 100 06/26/20 23:17 99 06/26/20 23:16 98 06/26/20 23:13 98 06/26/20 23:10 98 06/26/20 23:00 98 06/26/20 22:52 95 06/26/20 22:50 93 06/26/20 22:45 94 06/26/20 22:40 99 06/26/20 22:37 06/26/20 22:36 698 H 06/26/20 22:34 98 06/26/20 22:31 06/26/20 22:30 06/26/20 22:23 94 06/26/20 22:21 95 06/26/20 22:20 96 Laboratory Results Laboratory Results WBC 22.79 K/uL (4.8-10.8) H 06/26/20 23:46 RBC 4.27 M/uL (4.7-6.1) L 06/26/20 23:46 Hgb 12.9 g/dL (14.0-18.0) L 06/26/20 23:46 Hct 39.3 % (42-52) L 06/26/20 23:46 MCV 92.0 fL (80-100) 06/26/20 23:46 MCH 30.2 pg (25-34) 06/26/20 23:46 MCHC 32.8 g/dL (32-36) 06/26/20 23:46 RDW Std Deviation 59.8 fL (36.4-46.3) H 06/26/20 23:46 RDW Coeff of Shadi 18.0 % (11.5-14.5) H 06/26/20 23:46 Plt Count 331 K/uL (130-400) 06/26/20 23:46 MPV 10.1 fL (7.4-10.4) 06/26/20 23:46 Immature Gran % (Auto) 0.8 % 06/26/20 23:46 Neut % (Auto) 94.5 % 06/26/20 23:46 Lymph % (Auto) 3.0 % 06/26/20 23:46 Bannock % (Auto) 1.6 % 06/26/20 23:46 Eos % (Auto) 0.0 % 06/26/20 23:46 Baso % (Auto) 0.1 % 06/26/20 23:46 Neut # (Auto) 21.51 K/uL (1.4-6.5) H 06/26/20 23:46 Lymph # (Auto) 0.69 K/uL (1.2-3.4) L 06/26/20 23:46 Bannock # (Auto) 0.37 K/uL (0.11-0.59) 06/26/20 23:46 Eos # (Auto) 0.01 K/uL (0-0.5) 06/26/20 23:46 Baso # (Auto) 0.02 K/uL (0-0.2) 06/26/20 23:46 Immature Gran # (Auto) 0.19 K/uL (0.00-0.02) H 06/26/20 23:46 PT 15.8 Seconds (9.0-12.0) H 06/27/20 04:36 INR 1.5 (0.9-1.1) H 06/27/20 04:36 APTT 34.2 Seconds (21.0-31.0) H 06/26/20 23:46 PTT Ratio 1.2 06/26/20 23:46 Sodium 138 mmol/L (136-145) 06/27/20 04:36 Potassium 3.8 mmol/L (3.5-5.1) 06/27/20 04:36 Chloride 105 mmol/L (98-107) 06/27/20 04:36 Carbon Dioxide 18 mmol/L (21-32) L 06/27/20 04:36 Anion Gap 15.0 (3-11) H 06/27/20 04:36 BUN 37 mg/dl (7-18) H 06/27/20 04:36 Creatinine 2.22 mg/dl (0.6-1.4) H 06/27/20 04:36 Est Cr Clr Drug Dosing 36.1 ml/min 06/27/20 04:36 Est GFR ( Amer) 31.5 06/27/20 04:36 Est GFR (Non-Af Amer) 27.2 06/27/20 04:36 BUN/Creatinine Ratio 16.8 (10-20) 06/27/20 04:36 Glucose 162 mg/dl (70-99) H 06/27/20 04:36 POC Glucose 150 mg/dl (70-99) H 06/27/20 04:42 Lactate 8.4 mmol/L (0.4-2.0) H* 06/27/20 02:05 Calcium 8.0 mg/dl (8.5-10.1) L 06/27/20 04:36 Magnesium 1.4 mg/dl (1.8-2.4) L 06/26/20 23:46 Total Bilirubin 3.6 mg/dl (0.2-1) H 06/26/20 23:46 AST 236 U/L (15-37) H 06/27/20 04:36 ALT 79 U/L (12-78) H 06/27/20 04:36 Alkaline Phosphatase 723 U/L (45-117) H 06/26/20 23:46 Troponin I 0.074 ng/ml (0-0.045) H* 06/26/20 23:46 NT-Pro-B Natriuret Pep 69105 pg/ml (0-1800) H 06/26/20 23:46 Total Protein 6.2 gm/dl (6.4-8.2) L 06/26/20 23:46 Albumin 2.5 gm/dl (3.4-5.0) L 06/27/20 04:36 Globulin 4.5 gm/dl (2.5-4.0) H 06/26/20 23:46 Albumin/Globulin Ratio 0.4 (0.9-2) L 06/26/20 23:46 COVID-19 Eval Order Covid19 IDNow [facility] 06/26/20 23:15 SARS-CoV-2, RNA, NAAT NEGATIVE (NEGATIVE) 06/26/20 23:15 Diagnostic Findings [facility] Patient: CUAUHTEMOC LOUIS (Male) : 40 Status: ER Date: 06/27/20 00:42 Room #: History: POSSIBLE HYDRO OR MISPLACED CATHETER, BEST IMAGES Slices: [phone] Priors: Tech: Shaniqua Khan @ [phone] Exams: CT ABDOMEN & PELVIS Without Contrast Contrast: Accession Numbers: [id number] Preliminary Findings Only See Final Report For Complete Findings CT ABDOMEN & PELVIS Without Contrast: Direct comparison is made with the prior study of May 26, 2020. The liver, spleen, and pancreas appear normal. The gallbladder is surgically absent stomach, small bowel appear normal. There is a moderate amount of retained fecal material in the distal colon. The appendix is visualized and does not appear inflamed. There is no hydronephrosis or renal stone. There is an exophytic complex cyst on the right kidney. There is a Baires catheter in the bladder. There are moderate atherosclerotic changes in the abdominal aorta. There is no free peritoneal air or fluid. The abdominal wall is incompletely imaged. There is some airspace opacity in the left lung base with a small left pleural fluid collection. Impression: Airspace opacity at the left lung base with left pleural fluid suggesting aspiration or pneumonia. Baires catheter in the bladder with no hydronephrosis Radiologist: Maciej Rincon MD Study ready at 00:50 and initial results transmitted at 01:13 *This report constitutes a preliminary interpretation only. Non-acute findings felt to be unrelated to the clinical presentation may not be discussed in this report. The study will be interpreted and a final report will be generated by the local Radiologist the following shift. To reach the hospital radiology department call [phone]. If a discrepancy is found between the preliminary and final interpretations of this study, please notify us via our Client Portal at [email or web address] under QA Exams.You can also fax this report with a description of the discrepancy, or include the final report, to our daytime fax number [phone].If faxing, please indicate the severity of discrepancy using one of the following categories: [ ] 1 - Agree/Informational [ ] 2 - Unlikely to Affect Management [ ] 3 - Possible Eventual Change of Management [ ] 4 - Probable Immediate Change of Management For all other patient related information, please fax us at [phone]. [id number] Code Status & VTE Plan Code Status DNR/DNI. I did speak with his Kellee at approximately 2 AM, informed her of her 's condition, discussed treatment options confirming the patient was a DNR/DNI. She did report, that the patient would want to be on pressors to help support his blood pressure while infection was otherwise being treated. VTE Prophylaxis Plan VTE Prophylaxis will be ordered: Yes Critical Care Time Critical Care Time: Yes Total Critical Care Time: 65 PG Care Time/CCT Total # of Minutes Spent Total Time Spent with Patient: Total time spent is greater than 50% in coordination of care (as documented) at patient's floor/unit and/or counseling patient: Critical Care Time: Yes Total Critical Care Time: 65 Coding Level of Care Code 87721 Initial Inpt Care Lvl 3 Diagnoses Septic shock A41.9; R65.21 Proteus septicemia A41.59 Catheter-associated urinary tract infection T83.511A; N39.0 Encounter type: initial encounter Indwelling urinary catheter type: indwelling urethral catheter PNA (pneumonia) J18.1 Laterality: right Lung location: lower lobe of lung Pneumonia type: due to unspecified organism Seizures R56.9 Atrial fibrillation I48.91 Stage II pressure ulcer of buttock L89.302 Acute kidney injury N17.9 Lactic acidosis E87.2 Hypomagnesemia E83.42 Hypoalbuminemia E88.09 Chronic indwelling Baires catheter Z96.0 Diabetes mellitus E11.9 Additional Codes Critical Care Time - Critical Care Time: Yes ([id number]) Time Spent (min) 65 (1) Catheter-associated urinary tract infection Encounter type: initial encounter Indwelling urinary catheter type: indwelling urethral catheter Qualified Code(s): T83.511A - Infection and inflammatory reaction due to indwelling urethral catheter, initial encounter; N39.0 - Urinary tract infection, site not specified (2) PNA (pneumonia) Laterality: right Lung location: lower lobe of lung Pneumonia type: due to unspecified organism Qualified Code(s): J18.1 - Lobar pneumonia, unspecified organism
[2020-06-27] MEDS ORDERED: LINEZOLID CONSULT ACTIVE PRN (05:21)
[2020-06-27] MEDS ORDERED: LINEZOLID 600 MG/300 ML D5W IV SCH (05:30)
[2020-06-27 05:37] LABS: Albumin Globulin Ratio 0.5 (0.9-2); Bilirubin,Total 4.8 mg/dl (0.2-1); Globulin 4.6 gm/dl (2.5-4.0); Phosphorus 4.5 mg/dl (2.5-4.9); Total Protein 7.1 gm/dl (6.4-8.2)
[2020-06-27] MEDS: levETIRAcetam 500 MG in 0.9 % SODIUM CHLORIDE 100 ML IV SCH ×2 (06:27→18:04)
[2020-06-27] MEDS: LINEZOLID 600 MG/300 ML BAG IV SCH ×2 (06:27→17:28)
[2020-06-27 06:29] LABS: Appearance Urine Turbid (Clear); Bacteria Urine Automated 3+ (Negative); Blood Urine 3+ (Negative); Color Urine Dark Yellow; Epithelial Cell Urine Auto >30 /lpf (0-5); Glucose Urine UA Negative (Negative); Ketones Urine Trace (Negative); Leukocyte Esterase Urine 3+ (Negative); Nitrite Urine Positive (Negative); Protein Urine 2+ (Negative); Specific Gravity Urine 1.023 (1.000-1.030); Urobilinogen Urine Negative (Negative); WBC Urine Automated >30 /hpf (0-5)
[2020-06-27 06:35] LABS: iSTAT Allen Test Pass; iSTAT Art Bld Gas pCO2 Correct 32 mmHg (35-46); iSTAT Arterial Blood Gas HCO3 16 meg/L (19-24); iSTAT Arterial Blood Gas pCO2 33 mmHg (35-46); iSTAT Arterial Blood Gas pH 7.29 (7.35-7.45); iSTAT Arterial Blood Gas pO2 82 mmHg (80-95); iSTAT Arterial Blood Gas pO2 C 80; iSTAT Carbon Dioxide 17 mmol/L (24-31); iSTAT Hematocrit 42 % (42-52); iSTAT Hemoglobin 14.3 g/dl (14.0-18.0); iSTAT Site L Radial; iSTAT Sodium 138 mmol/L (135-144)
[2020-06-27 06:52] LABS: Bilirubin Urine Negative (Negative); Ictotest Urine Negative (Negative)
[2020-06-27 06:57] LABS: RBC Urine Automated 0-4 /hpf (0-4)
--- NOTE | 2020-06-27 07:34 | XRay Report ---
XR chest 1V portable CLINICAL HISTORY: Shortness of breath COMPARISON STUDY: 05/27/2020 FINDINGS: The heart is the upper limits of normal in size. Retrocardiac airspace opacities are suspec kristen on the left. This could represent a pneumonitis. Clinical and radiographic follow-up is recommend ed. There is mild chronic residual thickening at the right lung base. The upper lung zones appear rel atively clear. IMPRESSION: Left lower lung zone airspace opacities possibly representing a pneumonia. Clinical and r adiographic follow-up is recommended. ACT 112: Negative or not required by law. Electronically signed by: Esau Rosa M.D. 06/27/2020 7:32 AM
--- NOTE | 2020-06-27 08:01 | CT Scan Report ---
CT SCAN OF THE ABDOMEN AND PELVIS WITHOUT CONTRAST CLINICAL HISTORY: Possible hydro or misplaced catheter HISTORY OF SEPSIS COMPARISON STUDY: May 26, 2020 TECHNIQUE: CT scan of the abdomen and pelvis was performed from the lung bases to the proximal femurs . Images are reviewed in the axial, sagittal, and coronal planes. IV contrast was not administered fo r this examination. A dose lowering technique was utilized adhering to the principles of ALARA. CT DOSE: 1862.33 mGy.cm FINDINGS: Lower chest: There is a small left pleural effusion. There are left middle and lower lobe airspace op acities suspicious for pneumonia. Increased markings are also present the right lung base, atelectati c versus infectious/inflammatory Liver: The unenhanced liver is normal in size, contour, and attenuation. There is no intrahepatic lauren iary ductal dilatation. Gallbladder: Surgically absent Spleen: Normal in size and attenuation. Pancreas: Unremarkable. Adrenal glands: Unremarkable. Kidneys: There are bilateral hypodense renal lesions likely representing cysts but incompletely marcus cterized on this noncontrast study. Bowel: There are no transition zones to indicate bowel obstruction. Given the patient's large body godinez bitus, portions of the left colon is not included. There is moderate stool within the rectosigmoid. T here is no evidence of acute diverticulitis. There are no findings to indicate acute appendicitis. Peritoneum: There is no intraperitoneal free air or abdominal ascites. Vasculature: The abdominal aorta is normal in course and caliber. Adenopathy: None. Pelvic viscera: There is a catheter within the bladder. Skeletal structures: There are postsurgical changes of a right hip arthroplasty. Degenerative changes are present within the spine. IMPRESSION: 1. Technically limited study secondary to the patient's large body habitus 2. Left lower lobe pulmonary airspace opacities suspicious for a pneumonia 3. Bilateral renal masses. Incompletely characterized but statistically representing cysts 4. No evidence of hydronephrosis 5. Baires catheter within the bladder 6. No evidence of bowel obstruction. No evidence of free air 7. Moderate rectosigmoid stool ACT 112: Negative or not required by law. Electronically signed by: Esau Rosa M.D. 06/27/2020 8:00 AM
--- NOTE | 2020-06-27 09:50 | Critical Care Consultation ---
Date of Consultation June 27, 2020 Assessment & Plan (1) Admitted to intensive care unit: Reason Critically Ill: Mr. Deleon is a 79 yo M with multiple co-morbidities who was admitted to the hospital in septic shock and transferred to the ICU for vasoactive medication management. Patient was volume resuscitated and started on Levophed 0.05mcg in the ED through a L peripheral IV (as patient declined central line placement). He is currently afebrile with a MAP of 82. He is saturating 94% on 2L/min via Oxymask. He was started on broad spectrum antibiotic coverage with IV Cefepime and IV Linezolid. If patient is not amenable to central line placement, we will have IV team place an US guided peripheral line. Neuro: [facility] ICU: Positive * Hx Seizure disorder - continue home dose Keppra, 500mg, BID Cardiac: * Hypotension - likely secondary to septic shock - volume resuscitated in ED with 3L normal saline boluses - currently requiring minimal pressor support with Levophed 0.05mcg - order random cortisol level - hold home anti-hypertensives * Elevated troponin - 0.074 on admission; trend - suspect secondary to demand/supply mismatch in setting of acute septic shock - patient denies chest pain on exam - EKG without ST segment changes * Hx diastolic CHF - BNP elevated to 22k on admission - small left pleural effusion noted on a/p CT scan - hold home metoprolol in the setting of acute hypotension * Hx A-fib with RVR - patient does not appear to be on anticoagulation, although INR elevated to 1.5 (likely secondary to cirrhosis) - hold home metoprolol in setting of acute hypotension - EKG from admission showing A-fib with RVR Respiratory: * Pneumonia - CXR showing left lower lobe consolidation - WBC elevated to 22k, procal at 24 - continue IV Cefepime and Linezolid - frequent self-suction - o2 saturation at 94% on 2L/min via Oxymask GI: * Hx of cirrhosis - INR elevated at 1.5 - cirrhotic appearance of liver visualized on a/p CT * Transaminitis - ALT at 76, AST at 236 - Alk phos elevated to 711 - suspect secondary to shock liver (hypoperfusion) - CT scan of abdomen showing no evidence of evidence of hydronephrosis or bowel obstruction - continue IV famotidine RENAL/LYTES: * Gapped Metabolic Acidosis - secondary to type I lactic acidosis - appropriate respiratory compensation. No other concomitant acid base di sturbance. - pH 7.29, bicarb 18, AG 18.8 - IV as above * Lactic Acidosis - Lactate level 8.2; trend level - type I secondary to sepsis and hypoperfusion - IV and pressor support as above * CIERRA - Cr 2.22, BUN 37, ratio fo 16 - suspect pre-renal in the setting of acute sepsis (hypoperfusion) - IV as above - trend BMP : * Hx of Recurrent UTIs - Urine culture from 02/2020 growing pseudomonas resistant to Aztreonam (sensitive to cefepime) - UA from this admission + nitrites, - LE, > 30 WBCs, 3+ bacteria - Urine culture pending - on Cefepime as above for pseudomonal coverage - no evidence of hydronephrosis on CT scan - Patiño catheter in place ENDO: * Type II diabetes - HbA1c at goal at 7.0 on 05/29/20 - hold home oral medications; insulin prn - ICU protocol for hypoglycemia - patient does not appear to be on a statin, MAURILIO/ARB HEME: * Normocytic Anemia - Hgb 12.9, MCV 92 - patient is on home ferrous sulfate supplement - trend CBC ID: * Septic Shock - patient volume resuscitated with 3L normal saline in ED - currently maintaining goal MAPs with minimal vasopressor support (Levophed running at 0.05mcg); IV team to place US guided peripheral line, as patient declines central line placement - SIRS criteria met on admission (WBC > 12,000, HR > 90bpm) - WBC elevated to 22k. Procal elevated to 25 - potential sources of infection include left lower lobar PNA, UTI, sacral ulcer - blood cultures pending. urine culture pending. wound culture ordered of sacral ulcer - continue IV cefepime and linezolid as above - Nasal MRSA swab negative, but will leave linezolid on board given possible MRSA infection of sacral ulcer (patient lives in intermediate card tender care facility) * Sacral Ulcer - wound culture as above - wound care consult placed LINES/IV ACCESS: PIV, patiño CODE STATUS: DNR/DNI DVT PROPHYLAXIS: SCDs; INR elevated to 1.5 (due to cirrhosis) Thank you for allowing us to participate in the care of this patient. Please refer to my attending physician's documentation for any further recommendations. Supervising Physician Co-Signing Physician Notes Dr. Henry Was the resident-physician during care of patient. I separately evaluated patient for stein portions of the history and the exam. I was present during the critical portion of medical decision making, and I discussed the case with the resident. I generally agree with the findings and plan except for any additions/exceptions noted. Patient seen and examined at bedside. Was in mild distress secondary to pain. Needing oxygen mask to maintain his saturation. He is not in any respiratory distress. The reason he was admitted to the ICU was septic shock from not gram-negative bacteremia. The source is most likely urine versus decubitus ulcer which she has. Patient has CIERRA on underlying CKD. Continue with fluids monitor BUNs/creatinine Patient's random cortisol was 97.7 unlikely the patient has adrenal insufficiency. Procalcitonin 25.67. Patient does have coagulopathy which seems to be coming from hypoalbuminemia. We will give him vitamin K 5 mg 1 dose. Patient does have elevated LFTs with AST and ALT on the higher side along with alk phos. Patient does not have a gallbladder on CT abdomen pelvis. This could be from the hypotensive episode that the patient came in with. Will monitor. 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 Family does not want any aggressive measures I do not think getting a surgical consult will be appropriate. Wound care consult. Patient's status is DNR/DNI. The only reason he is in the ICU is for the vasopressors as agreed to give it a try to see if that will help. Patient is on low-dose vasopressin 0.05 of Levophed. It is been given through a peripheral access. I did speak with the patient as well as patient's regarding possibility of putting a central line in. Patient refused any central line intervention. Patient's is in agreement with not putting a central line in as per her 's wishes. An ultrasound-guided line was obtained in the arm and Levophed will be given through that. The risk of giving it to the periphery was explained to the she understands. The main goal of the is to keep the patient comfortable and see if there is any improvement with antibiotics. If there is no improvement in the clinical status then plan would be comfort care. I have personally spent 61 minutes of critical care time in the direct management of this patient. This is a life/limb threatening event. This includes time spent evaluating patient, direct bedside care, chart review, placing orders, interpretation of diagnostic studies, discussion with c onsultants, patient, and/or family members regarding treatment decisions, as well as other required patient management activities. This time is exclusive of all separately billable procedures, and teaching time and separate from and in addition to any other critical care service time. History of Present Illness Attending Physician: Olman Troy MD History of Present Illness Mr. Deleon is a 79 yo M who is a resident of [facility] with a history of recurrent UTIs, admitted overnight in septic shock. Of note, he was recently admitted to [facility] 05/26/20 to 05/30/20 septic with proteus bacteremia. Patient was volume resuscitated in the emergency department with 3L of normal saline and 50 g of albumin IV, 2 amps of sodium bicarbonate IV. He was also started on a small amount of levophed via a peripheral IV (as patient declined central line placement) for persistent hypotension. At one point in the ED he was placed on BiPAP before being transitioned to Oxymask. He was started on broad spectrum antibiotic coverage with IV Cefepime and IV Linezolid. Possible infectious sources thought to include UTI, pneumonia, sacral ulcer. He was transferred to the ICU for vasoactive medication management. Allergies Allergy/AdvReac Type Severity Reaction Status Date / Time metronidazole Allergy Severe Unknown Verified 06/27/20 01:47 amoxicillin Allergy Intermediate Rash Verified 06/27/20 01:47 Home Medications Medication Instructions Recorded Confirmed Type ferrous sulfate 325 mg PO BID 06/16/18 06/27/20 History finasteride 5 mg PO DAILY 06/16/18 06/27/20 History metformin 500 mg PO QAM 06/16/18 06/27/20 History metoprolol succinate 200 mg PO DAILY 06/16/18 06/27/20 History pantoprazole 40 mg PO BID 06/16/18 06/27/20 History levetiracetam 500 mg PO BID 03/16/19 06/27/20 History Januvia 50 mg PO DAILY 06/17/19 06/27/20 History potassium chloride 10 meq PO DAILY 06/17/19 06/27/20 History acetaminophen [Tylenol] 650 mg PO Q6 PRN MDD 3G 05/26/20 06/27/20 History docusate sodium 200 mg PO HS 05/26/20 06/27/20 History lorazepam 0.5 mg PO Q8 PRN 05/26/20 06/27/20 History magnesium hydroxide [Milk of 30 ml PO DAILY PRN 05/26/20 06/27/20 History Magnesia] melatonin 3 mg PO HS 05/26/20 06/27/20 History multivitamin 1 tab PO DAILY 05/26/20 06/27/20 History oxycodone 5 mg PO Q6H PRN 05/26/20 06/27/20 History polyethylene glycol 3350 [Miralax] 17 g PO DAILY 05/26/20 06/27/20 History promethazine 25 mg PO Q6H PRN 05/26/20 06/27/20 History torsemide 20 mg PO DAILY 05/26/20 06/27/20 History acetaminophen 1,000 mg PO BID MDD 3g 06/27/20 06/27/20 History ascorbic acid (vitamin C) 500 mg PO BID 06/27/20 06/27/20 History aspirin [Aspirin Childrens] 81 mg PO DAILY 06/27/20 06/27/20 History guaifenesin 200 mg PO Q4H PRN 06/27/20 06/27/20 History nystatin 1 applic TOPICAL BID 06/27/20 06/27/20 History oxycodone [OxyContin] 20 mg PO Q12H 06/27/20 06/27/20 History vitamin A and D 1 applic TOPICAL QS 06/27/20 06/27/20 History Patient History Medical History (Updated 06/27/20 @ 10:02 by Debbie Henry MD) 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 Acute urinary retention Atrial fibrillation with RVR Barretts esophagus Benign hypertension BPH without urinary obstruction Callus Chronic a-fib Chronic diastolic CHF (congestive heart failure) Chronic indwelling Patiño catheter Chronic venous insufficiency Complicated UTI (urinary tract infection) 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, with fat layer exposed Diverticulosis of colon (without mention of hemorrhage) DM (diabetes mellitus), type 2, uncontrolled w/ophthalmic complication Esophageal candidiasis Exertional dyspnea Gastric ulcer with hemorrhage but without obstruction H/O Clostridium difficile infection Hemangioma of skin History of chronic atrial fibrillation Hypertension Hypoxia ICH (intracerebral hemorrhage) Morbid obesity Open wound of scrotum JUAN MANUEL (obstructive sleep apnea) Peripheral arterial disease Rhabdomyolysis Scrotal varicose veins Skin ulcer of left foot including toes Symptomatic anemia Urinary retention Surgical History History of total replacement of right hip S/P cholecystectomy S/P tonsillectomy and adenoidectomy Family History Other No significant family history Social History Smoking Status: Never smoker Second Hand Exposure: No; Hx Alcohol Use: No Hx Substance Use: No Preferred Language: Pashto 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 Beliefs That Will Affect Care: None marital status: Current Living Situation: Long Term Current Living Situation Comment: Home with spouse Other Information That Helps Us Care for You: No Feels Safe at Home: Yes Safety Concerns: Feels Safe At This Time Assistive Devices: Oxygen - Continuous Review of Systems Respiratory: + cough and + chest congestion Physical Exam Constitutional: WD/WN, vitals as above + obese and cooperative Eyes: + anicteric sclerae ENMT: external ear and nose normal, oropharynx normal Neck: normal visual inspection and trachea midline Respiratory: normal respiratory effort and + cough Auscultation: + crackles (bilateral bases, R>L) Cardiovascular: RRR, no murmur, no edema Heart Sounds: normal S1 and normal S2 Extremities: no pedal edema Gastrointestinal (Abdomen): normal bowel sounds, soft, nontender, no hepatosplenomegaly Skin: stasis dermatitis b/l LE Psychiatric: A+Ox3, euthymic affect Genitourinary: Patiño catheter in place, draining dark yellow urine without visible blood clots Results & Data Results & [facility] ([facility]) Vital Signs (Past 12 Hours) Vital Signs Temp Pulse Pulse Pulse Resp BP BP 06/27/20 08:00 100 H 06/27/20 06:40 99 H 17 102/51 L 06/27/20 06:25 105 H 18 119/64 06/27/20 06:10 95 H 16 98/62 L 06/27/20 05:55 105 H 16 97/59 L 06/27/20 05:40 105 H 17 99/60 L 06/27/20 05:25 103 H 17 119/64 12/26/20 05:10 104 H 20 111/68 06/27/20 04:54 103 H 17 106/67 06/27/20 04:40 105 H 19 82/49 L 06/27/20 04:25 96 H 19 102/59 L 06/27/20 04:10 95 H 18 84/51 L 06/27/20 03:55 100 H 17 86/46 L 06/27/20 03:40 36.6 C 102 H 18 96/45 L 06/27/20 03:25 102 H 17 88/58 L 06/27/20 03:11 104 H 24 100/58 L 06/27/20 03:03 36.6 C 104 H 20 100/58 L 06/27/20 02:50 103 H 26 H 108/59 L 06/27/20 02:45 101 H 21 108/59 L 06/27/20 02:30 99 H 19 102/54 L 06/27/20 02:20 98 H 17 06/27/20 02:15 99 H 18 97/56 L 06/27/20 02:10 101 H 24 97/56 L 06/27/20 02:00 102 H 21 83/46 L 06/27/20 01:50 96 H 23 06/27/20 01:45 104 H 17 75/43 L 06/27/20 01:40 103 H 14 75/43 L 06/27/20 01:30 99 H 32 H 83/41 L 06/27/20 01:22 95 H 20 77/45 L 06/27/20 01:20 107 H 16 89/61 L 06/27/20 01:15 105 H 19 90/68 L 06/27/20 01:10 119 H 23 06/27/20 01:00 109 H 21 81/48 L 06/27/20 00:50 110 H 25 H 06/27/20 00:45 115 H 23 89/42 L 06/27/20 00:44 109 H 24 69/38 L 06/27/20 00:42 110 H 23 80/41 L 06/27/20 00:30 06/27/20 00:20 113 H 18 06/27/20 00:15 120 H 24 68/43 L 06/27/20 00:10 111 H 23 06/27/20 00:02 110 H 25 H 12/26/20 00:00 111 H 22 78/44 L 06/26/20 23:59 110 H 22 72/34 L 06/26/20 23:50 119 H 26 H 06/26/20 23:47 128 H 25 H 77/59 L 06/26/20 23:40 125 H 17 06/26/20 23:30 134 H 19 06/26/20 23:20 119 H 25 H 06/26/20 23:17 128 H 28 H 73/46 L 06/26/20 23:16 127 H 23 61/48 L 06/26/20 23:13 125 H 21 151/123 H 06/26/20 23:10 131 H 24 06/26/20 23:00 126 H 21 06/26/20 22:52 130 H 28 H 85/49 L 06/26/20 22:50 143 H 20 06/26/20 22:45 145 H 31 H 76/54 L 06/26/20 22:40 135 H 28 H 06/26/20 22:37 122 H 31 H 63/40 L 06/26/20 22:36 134 H 34 H 06/26/20 22:34 134 H 34 H 06/26/20 22:31 128 H 22 63/46 L 06/26/20 22:30 122 H 24 06/26/20 22:23 36.9 C 130 H 28 H 135/95 06/26/20 22:21 121 H 25 H 06/26/20 22:20 122 H 16 60/42 L Pulse Ox 06/27/20 08:00 06/27/20 06:40 95 06/27/20 06:25 95 06/27/20 06:10 96 06/27/20 05:55 97 06/27/20 05:40 97 06/27/20 05:25 97 06/27/20 05:10 98 06/27/20 04:54 97 06/27/20 04:40 95 06/27/20 04:25 95 06/27/20 04:10 94 06/27/20 03:55 98 06/27/20 03:40 99 06/27/20 03:25 99 06/27/20 03:11 93 06/27/20 03:03 98 06/27/20 02:50 94 06/27/20 02:45 91 06/27/20 02:30 95 06/27/20 02:20 96 06/27/20 02:15 96 06/27/20 02:10 93 06/27/20 02:00 94 06/27/20 01:50 91 06/27/20 01:45 96 06/27/20 01:40 98 06/27/20 01:30 97 06/27/20 01:22 98 06/27/20 01:20 98 06/27/20 01:15 100 06/27/20 01:10 96 06/27/20 01:00 96 06/27/20 00:50 96 06/27/20 00:45 98 06/27/20 00:44 98 06/27/20 00:42 100 06/27/20 00:30 99 06/27/20 00:20 95 06/27/20 00:15 97 06/27/20 00:10 97 06/27/20 00:02 98 06/27/20 00:00 98 06/26/20 23:59 98 06/26/20 23:50 06/26/20 23:47 98 06/26/20 23:40 97 06/26/20 23:30 97 06/26/20 23:20 100 06/26/20 23:17 99 06/26/20 23:16 98 06/26/20 23:13 98 06/26/20 23:10 98 06/26/20 23:00 98 06/26/20 22:52 95 06/26/20 22:50 93 06/26/20 22:45 94 06/26/20 22:40 99 06/26/20 22:37 06/26/20 22:36 698 H 06/26/20 22:34 98 06/26/20 22:31 06/26/20 22:30 06/26/20 22:23 94 06/26/20 22:21 95 06/26/20 22:20 96 06/26/20 23:46 06/27/20 04:36 Resident Activity Tracking Resident Involvement: Resident Care Provided Care Provided: Adult Hospital Medicine
[2020-06-27] MEDS: FAMOTIDINE 20 MG in SYRINGE 3 ML IV SCH ×2 (10:14→20:46)
[2020-06-27] MEDS: CEFEPIME 1,000 MG in SYRINGE 0 ML IV SCH (12:11)
[2020-06-27] MEDS ORDERED: PHARMACY GLYCEMIC MGMT CONSULT PRN (12:24)
[2020-06-27] MEDS ORDERED: CARBOHYDRATES FOR HYPOGLYCEMIA PO PRN (12:30)
[2020-06-27] MEDS ORDERED: DEXTROSE 50% 50 ML SYRINGE IV PRN (12:30)
[2020-06-27] MEDS ORDERED: GLUCOSE 40% GEL 15 GM TUBE PO PRN (12:30)
[2020-06-27] MEDS ORDERED: GLUCOSE 10 TABS/TUBE PO PRN (12:30)
[2020-06-27] MEDS ORDERED: GLUCAGON FOR INJ 1 MG VIAL IM PRN (12:30)
[2020-06-27] MEDS: INSULIN ASPART 100 UNITS/ML 3 ML PEN SC SCH ×3 (13:05→20:10)
[2020-06-27 13:30] LABS: Cdiff Antigen Positive; Cdiff Toxin A+B Negative Cdiff Toxin (Negative)
--- NOTE | 2020-06-27 13:35 | Electrocardiogram Report ---
Test Reason : Blood Pressure : / mmHG Vent. Rate : 126 BPM Atrial Rate : 156 BPM P-R Int : 000 ms QRS Dur : 092 ms QT Int : 354 ms P-R-T Axes : 000 -47 101 degrees QTc Int : 512 ms Atrial fibrillation with rapid ventricular response Left axis deviation Nonspecific ST and T wave abnormality Abnormal ECG When compared with ECG of 28-MAY-2020 08:53, No significant change was found Confirmed by Matt Karimi ([id number]) on 06/27/2020 1:34:48 PM Referred By: [facility] Confirmed By:Matt Karimi
[2020-06-27] MEDS: MoRPHine SULFATE 2 MG/ML CARP IV PRN ×2 (13:55→20:46)
[2020-06-27] MEDS ORDERED: LORazepam 0.25 MG/0.5 ML VIAL IV STA (14:42)
[2020-06-27] MEDS ORDERED: LORazepam 0.5 MG/1 ML VIAL IV STA ×2 (14:46→17:15)
--- NOTE | 2020-06-27 15:05 | Pharmacy Report ---
Pharmacy Glycemic Short Note 2 - Date of Service June 27, 2020 - Glycemic Short BSG Results (Last 24 hours): 06/26/20 06/27/20 06/27/20 23:46 04:36 04:42 Glucose 123 H 162 H POC Glucose 150 H 06/27/20 12:00 Glucose POC Glucose 210 H OUTPATIENT ANTIDIABETIC REGIMEN: * Metformin 500 mg PO daily * HbA1c: 7% (05/29/20) ASSESSMENT: * HS is a 79 year old male with septic shock likely secondary to pneumonia * Currently requiring norepinephrine for pressor support * Broad spectrum antibiotics with linezolid and cefepime * Pharmacy consulted for glycemic management for BSG of 210 mg/dL around noon * Patient has history of T2DM controlled on metformin monotherapy * Will utilize Novolog q4h for now and schedule lantus dose at 1600 * If BSG above 220 mg/dL at 1600 check with instruct second shift pharmacist to initiate insulin infusion * Patient NPO PLAN FOR INPATIENT GLYCEMIC CONTROL: * Hold outpatient oral diabetes medications * Basal insulin * Lantus 5-15 units at 1600 (see EHR for details) * Bolus insulin * NovoLog per scale ACHS or Q6hrs while NPO * Goal Range: Low 120 mg/dL - High 160 mg/dL * Correction Factor: 20 mg/dL/unit
[2020-06-27] MEDS ORDERED: INSULIN GLARGINE SOLOSTAR 100 UNITS/ML 3 ML PEN SC SCH (16:00)
--- NOTE | 2020-06-27 17:22 | Billing Data ---
Date of Service June 27, 2020 Coding Level of Care Code Critical Care 1st 30-74 mins Time Spent (min) 39
[2020-06-27] MEDS ORDERED: PHYTONADIONE 5 MG in SODIUM CHLORIDE 0.9% 50 ML IV ONE (17:29)
--- NOTE | 2020-06-27 17:30 | Billing Data ---
Date of Service June 27, 2020 Coding Level of Care Code Critical Care 1st 30-74 mins Time Spent (min) 61
--- NOTE | 2020-06-27 18:56 | History & Physical Bridge Note ---
Date of Service June 27, 2020 History & Physical Bridge Note Reports no major pain at present. On mild dose of norepinephrine via right AC. - Defer to ICU regarding pressors and abx
[2020-06-28] MEDS: CEFEPIME 1,000 MG in SYRINGE 0 ML IV SCH ×2 (00:05→12:54)
[2020-06-28] MEDS: INSULIN ASPART 100 UNITS/ML 3 ML PEN SC SCH ×4 (00:05→12:54)
[2020-06-28] MEDS: MoRPHine SULFATE 2 MG/ML CARP IV PRN ×3 (00:46→11:14)
[2020-06-28 05:27] LABS: Albumin Globulin Ratio 0.4 (0.9-2); Albumin Level 2.1 gm/dl (3.4-5.0); BUN Creatinine Ratio 17.8 (10-20); Bilirubin,Total 5.4 mg/dl (0.2-1); Calcium 7.6 mg/dl (8.5-10.1); Creatinine Clr Calc Pharmacy 32.2 ml/min; Est GFR (African American) 27.4; Est GFR (Non-African American) 23.7; Globulin 4.7 gm/dl (2.5-4.0); Phosphorus 4.3 mg/dl (2.5-4.9); Total Protein 6.8 gm/dl (6.4-8.2); Troponin I 0.331 ng/ml (0-0.045)
[2020-06-28] MEDS: levETIRAcetam 500 MG in 0.9 % SODIUM CHLORIDE 100 ML IV SCH (05:33)
[2020-06-28] MEDS: LINEZOLID 600 MG/300 ML BAG IV SCH (05:34)
[2020-06-28 06:18] LABS: Hematocrit (blood only) 41.4 % (42-52); Hemoglobin 13.2 g/dL (14.0-18.0); Mean Corpuscular Hemoglobin 29.9 pg (25-34); Mean Corpuscular Hgb Conc 31.9 g/dL (32-36); Mean Corpuscular Volume 93.9 fL (80-100); Mean Platelet Volume 10.6 fL (7.4-10.4); Platelet Count 304 K/uL (130-400); RDW Coefficient of Variation 18.7 % (11.5-14.5); RDW Standard Deviation 64.5 fL (36.4-46.3); Red Blood Count 4.41 M/uL (4.7-6.1); White Blood Count 29.97 K/uL (4.8-10.8)
[2020-06-28 06:32] LABS: INR 1.5 (0.9-1.1); Prothrombin Time 15.2 Seconds (9.0-12.0)
[2020-06-28 06:34] LABS: Potassium 4.1 mmol/L (3.5-5.1)
[2020-06-28 06:39] LABS: Magnesium 2.3 mg/dl (1.8-2.4)
[2020-06-28 06:44] LABS: Basophils # (auto) 0.01 K/uL (0-0.2); Immature Granulocytes # (auto) 0.81 K/uL (0.00-0.02); Immature Granulocytes % (auto) 2.7 %; Lymphocytes # (auto) 0.61 K/uL (1.2-3.4); Monocytes # (auto) 0.75 K/uL (0.11-0.59); Monocytes % (auto) 2.5 %; Neutrophils # (auto) 27.79 K/uL (1.4-6.5); Neutrophils % (auto) 92.8 %
[2020-06-28] MEDS: NOREPINEPHRINE/D5W 8 MG/508 ML BAG IV SCH (07:32)
[2020-06-28] MEDS: SODIUM CHLORIDE 0.9% 1000ML 1,000 ML IV SCH (09:44)
[2020-06-28] MEDS: FAMOTIDINE 20 MG in SYRINGE 3 ML IV SCH (09:45)
--- NOTE | 2020-06-28 10:45 | Critical Care Progress Note ---
Date of Service June 28, 2020 Assessment & Plan (1) CIERRA (acute kidney injury): (2) Atrial fibrillation with rapid ventricular response: (3) Acute respiratory distress: (4) Admitted to intensive care unit: --Septic shock Secondary to gram-negative bacteremia Source is likely UTI versus sacral decub Patient is on antibiotics The demand for vasopressors have been increasing Patient's random cortisol was 97.7 unlikely the patient has adrenal insufficiency. Patient as well as patient's both agreed not to escalate the care and want to put a central line. --A. fib with RVR Patient has underlying history of A. fib Not on anticoagulation because history of bleeding in the past Vasopressors also playing a role --Elevated transaminase Likely from septic shock and shock liver Monitor --CIERRA Monitor BUNs/creatinine Avoid nephrotoxic medication --Prophylaxis VTE: IPC's GI: Pepcid Lines: Peripheral Diet: N.p.o. Plan: In/out +3075, urine output 628 Overall patient's condition has deteriorated compared to yesterday. His procalcitonin is trending up. His lactic acid is still 8. He is needing increasing amount of Levophed. I gave a call to patient's who is the POA. Explained the current condition she understands and would not like to continue with any aggressive care. I will make the patient comfortable. All questions inquiries of patient's were answered in depth. I have personally spent 40 minutes of critical care time in the direct management of this patient. This is a life/limb threatening event. This includes time spent evaluating patient, direct bedside care, chart review, placing orders, interpretation of diagnostic studies, discussion with consultants, patient, and/or family members regarding treatment decisions, as well as other required patient management activities. This time is exclusive of all separately billable procedures, and teaching time and separate from and in addition to any other critical care service time. (5) Septic shock: Admission and Anticipated Discharge Date Admission Date: June 27, 2020 Subjective Patient seen and examined at bedside. He is on 0.20 Levophed systolic blood pressure is still in the 90s. Map being in the 50s. Patient is getting antibiotics. His urine output is worsening. Patient is having agonal breathing. Review of Systems Review of Systems: Unobtainable due to mental health condition Physical Exam Physical Exam: Constitutional: No acute distress HEENT: PERRLA Respiratory system: Decreased air entry bilaterally, no wheeze, no rhonchi, positive crackles bilateral lower lobes CVS: S1-S2 positive, irregular rhythm, tachycardia Abdomen: Soft, nontender, nondistended, positive bowel sounds x4, positive infraumbilical hernia, stage IV sacral decubitus ulcer Extremities: +2 pulses bilaterally radialis/ dorsalis pedis, no cyanosis, +2 edema bilateral lower extremity Neuro: GCS 10 Psych: Normal mood and affect G/U: Positive Baires Skin: no rashes, warm and dry Lymphatic: no cervical or axillary lymphadenopathy Results & Data Results & Data ([facility]) Vital Signs (Past 12 Hours) Vital Signs Temp Pulse Resp BP Pulse Ox 06/28/20 05:27 37 C 138 H 15 77/32 L 95 06/28/20 05:12 131 H 15 76/37 L 93 06/28/20 05:00 134 H 15 94 06/28/20 04:57 137 H 14 65/37 L 94 06/28/20 04:41 132 H 16 98/70 L 92 06/28/20 04:30 94 06/28/20 04:28 138 H 21 66/54 L 93 06/28/20 04:11 141 H 17 73/60 L 94 06/28/20 04:00 132 H 20 91 06/28/20 03:56 145 H 17 87/50 L 92 06/28/20 03:42 134 H 17 92 06/28/20 03:41 127 H 16 83/49 L 92 06/28/20 03:27 136 H 18 93/54 L 91 06/28/20 03:11 136 H 17 86/49 L 93 06/28/20 02:56 132 H 17 79/50 L 95 06/28/20 02:41 124 H 16 80/52 L 95 06/28/20 02:26 130 H 19 73/48 L 95 06/28/20 02:11 139 H 20 76/54 L 93 06/28/20 02:10 133 H 23 71/48 L 94 06/28/20 01:41 125 H 17 77/46 L 98 06/28/20 01:37 131 H 06/28/20 01:23 125 H 21 87/58 L 98 06/28/20 01:16 131 H 18 73/58 L 94 06/28/20 01:12 118 H 18 70/44 L 97 06/28/20 01:00 124 H 17 99 06/28/20 00:56 122 H 18 99/44 L 98 06/28/20 00:41 121 H 20 108/65 98 06/28/20 00:26 127 H 18 91/62 L 100 06/28/20 00:11 126 H 25 H 95/54 L 100 06/28/20 00:00 123 H 19 100 06/27/20 23:56 124 H 22 88/46 L 100 06/27/20 23:41 116 H 33 H 88/54 L 100 06/27/20 23:26 115 H 19 91/54 L 100 06/27/20 23:11 120 H 26 H 97/47 L 100 06/27/20 22:56 130 H 29 H 107/61 100 06/27/20 22:41 109 H 21 96/53 L 100 06/28/20 06:09 06/28/20 06:03 Coding Level of Care Code Critical Care 1st 30-74 mins Diagnoses CIERRA (acute kidney injury) N17.9 Atrial fibrillation with rapid ventricular response I48.91 Acute respiratory distress R06.03 Admitted to intensive care unit Z78.9 Septic shock A41.9; R65.21 Time Spent (min) 40
--- NOTE | 2020-06-28 12:14 | Hospitalist Progress Note ---
Date of Service June 28, 2020 Assessment & Plan (1) Septic shock: Septic shock from recent Proteus mirabilis & stage II buttock ulcer. - Increasing pressor requirements and lactate. - The patient is now comfort measures. Central line will be removed, and he will be made comfortable. (2) Comfort measures only status: Comfort measures added. - Morphine, atropine, Ativan Admission and Anticipated Discharge Date Admission Date: June 27, 2020 Subjective Lethargic. Review of Systems Review of Systems: Unobtainable due to cognitive status and Unobtainable due to reduced consciousness Physical Exam Constitutional: + lethargic Eyes: EOM intact bilaterally; no conjunctival abnormality ENMT: external ear and nose normal, oropharynx normal Neck: trachea midline, no thyromegaly normal visual inspection Respiratory: + respiratory distress and + stridor (Upper respiratory sounds) Cardiovascular: Rate/Rhythm: + tachycardic and + irregularly irregular Heart Sounds: normal S1 and normal S2 Gastrointestinal (Abdomen): Inspection/Auscultation: abdomen normal to inspection; abdomen not distended Skin: no rashes, warm and dry Neurologic: + does not move all extremities and + not awake Psychiatric: Orientation: + not alert and + not oriented to person Results & Data Results & Data ([facility]) Vital Signs (Past 12 Hours) Vital Signs Temp Pulse Resp BP Pulse Ox 06/28/20 05:27 37 C 138 H 15 77/32 L 95 06/28/20 05:12 131 H 15 76/37 L 93 06/28/20 05:00 134 H 15 94 06/28/20 04:57 137 H 14 65/37 L 94 06/28/20 04:41 132 H 16 98/70 L 92 06/28/20 04:30 94 06/28/20 04:28 138 H 21 66/54 L 93 06/28/20 04:11 141 H 17 73/60 L 94 06/28/20 04:00 132 H 20 91 06/28/20 03:56 145 H 17 87/50 L 92 06/28/20 03:42 134 H 17 92 06/28/20 03:41 127 H 16 83/49 L 92 06/28/20 03:27 136 H 18 93/54 L 91 06/28/20 03:11 136 H 17 86/49 L 93 06/28/20 02:56 132 H 17 79/50 L 95 06/28/20 02:41 124 H 16 80/52 L 95 06/28/20 02:26 130 H 19 73/48 L 95 06/28/20 02:11 139 H 20 76/54 L 93 06/28/20 02:10 133 H 23 71/48 L 94 06/28/20 01:41 125 H 17 77/46 L 98 06/28/20 01:37 131 H 06/28/20 01:23 125 H 21 87/58 L 98 06/28/20 01:16 131 H 18 73/58 L 94 06/28/20 01:12 118 H 18 70/44 L 97 06/28/20 01:00 124 H 17 99 06/28/20 00:56 122 H 18 99/44 L 98 06/28/20 00:41 121 H 20 108/65 98 06/28/20 00:26 127 H 18 91/62 L 100 06/28/20 00:11 126 H 25 H 95/54 L 100 PG Care Time/CCT Total # of Minutes Spent Total Time Spent with Patient: Total time spent is greater than 50% in coordination of care (as documented) at patient's floor/unit and/or counseling patient: Coding Level of Care Code 04936 Subseq Hosp Care Lvl 3 Diagnoses Septic shock A41.9; R65.21 Comfort measures only status Z51.5
--- NOTE | 2020-06-28 13:01 | Electrocardiogram Report ---
Test Reason : Blood Pressure : / mmHG Vent. Rate : 147 BPM Atrial Rate : 163 BPM P-R Int : 000 ms QRS Dur : 100 ms QT Int : 312 ms P-R-T Axes : 000 259 111 degrees QTc Int : 488 ms Atrial fibrillation with rapid ventricular response Right superior axis deviation Right ventricular hypertrophy ST depression, consider subendocardial injury Abnormal ECG When compared with ECG of 26-JUN-2020 22:18, ST now depressed in Lateral leads Confirmed by Matt Karimi ([id number]) on 06/28/2020 1:00:55 PM Referred By: [facility] Confirmed By:Matt Karimi
[2020-06-28] MEDS ORDERED: MoRPHine SULFATE 5 MG/0.25 ML UDP PO PRN (13:18)
[2020-06-28] MEDS ORDERED: LORazepam 1 MG TAB SL PRN (13:18)
[2020-06-28] MEDS ORDERED: ATROPINE SULFATE 1% OP SOLN 2 ML BTL SL PRN (13:18)
--- NOTE | 2020-06-28 16:39 | Discharge Summary ---
Date of Service June 28, 2020 Admission HPI Per Admitting Provider The patient is a 79-year-old male with a past medical history including atrial fibrillation with rapid ventricular response, acquired buried penis, urinary retention with incomplete bladder emptying, acute kidney injury, chronic pain syndrome, obesity, liver cirrhosis, acute diastolic CHF, abdominal wall cellulitis, scrotal cellulitis, catheter associated urinary tract infection, gram-negative sepsis, gram-negative bacteremia, diabetes mellitus, diabetic polyneuropathy, demand ischemia, seizure disorder, sepsis, hyperlipidemia, BPH with LUTS, history of C. difficile colitis, history of ureteral stent, intramu scular hematoma, stage II pressure ulcer of buttock, JUAN MANUEL, pneumonia, chronic venous insufficiency, acute encephalopathy, esophageal candidiasis, unsteady gait, peripheral arterial disease, rhabdomyolysis, diabetic toe ulcer, Horvath's esophagus, ICH, gastric ulcer with hemorrhage, hypertension, right total hip arthroplasty, morbid obesity. His most recent hospital admission was from 05/26-05/30/2020 due to Proteus bacteremia and sepsis secondary to urinary tract infection. In the emergency department, patient was treated for septic shock. He was placed on daptomycin IV and cefepime IV to cover stage II buttock infection and recurrent urinary tract infection. He was given 3 L of normal saline, 50 g of albumin IV, 2 amps of sodium bicarbonate IV. His systolic blood pressure had dropped to the mid 70s upon arrival, and then improved with the above therapy to 90, and when he decreased back to the 70s again he was started on Levophed infusion. His oxygen saturation upon arrival was initially in the mid 70s on room air, and he was placed on BiPAP by the ED with improvement in pulse ox to the mid 90s. The patient was able to be returned to oxime mask 6 L with pulse ox in the 95- 98% range. Principal Diagnosis Septic shock Discharge Exam Eyes + abnormal light reflex; + no PERRL Respiratory No breath sounds Cardiovascular No heart rate Discharge Data Allergies Allergy/AdvReac Type Severity Reaction Status Date / Time metronidazole Allergy Severe Unknown Verified 06/27/20 01:47 amoxicillin Allergy Intermediate Rash Verified 06/27/20 01:47 Consultations 06/27/20 00:47 ED Decision to Admit Stat 06/27/20 03:11 Consult Case Management - Discharge Planning Routine Consult Ice Grinder Routine Ordered Studies 06/26/20 23:20 CT abd pelvis wo con Urgent Hospital Course (1) Septic shock: Septic shock from recent Proteus mirabilis & stage II buttock ulcer. Patient made comfort care. Heart stopped and ceased breathing at 15:37. (2) Comfort measures only status: Comfort measures added. - Morphine, atropine, Ativan Total Time Total Time Spent Total Time Spent (In Minutes): 35 Discharge Plan Discharge Items Reason For Visit: SEPTIC SHOCK Condition on Discharge: Critical Follow-up/Referrals: Edvin Dias [Primary Care Provider] - Medications and DC Order Prescriptions: No Action metformin 500 mg Tablet 500 mg PO QAM RF: 0 metoprolol succinate 200 mg tablet extended release 24 hr 200 mg PO DAILY RF: 0 pantoprazole 40 mg Tablet,Delayed Release (Dr/Ec) 40 mg PO BID RF: 0 ferrous sulfate 325 mg (65 mg iron) Tablet 325 mg PO BID RF: 0 finasteride 5 mg tablet 5 mg PO DAILY RF: 0 levetiracetam 500 mg Tablet 500 mg PO BID RF: 0 aspirin [Aspirin Childrens] 81 mg Tablet,Chewable 81 mg PO DAILY RF: 0 guaifenesin 100 mg/5 mL Syrup 200 mg PO Q4H PRN (Reason: Cough) RF: 0 vitamin A and D Ointment 1 applic TOPICAL QS RF: 0 acetaminophen 500 mg Tablet 1,000 mg PO BID MDD 3g RF: 0 ascorbic acid (vitamin C) 500 mg Tablet 500 mg PO BID RF: 0 oxycodone [OxyContin] 20 mg Tablet,Oral Only,Ext.Rel.12 Hr 20 mg PO Q12H RF: 0 nystatin 100,000 unit/gram Cream 1 applic TOPICAL BID RF: 0 potassium chloride 10 mEq tablet,ER particles/crystals 10 meq PO DAILY RF: 0 Januvia 50 mg tablet 50 mg PO DAILY RF: 0 docusate sodium 100 mg Capsule 200 mg PO HS RF: 0 lorazepam 0.5 mg Tablet 0.5 mg PO Q8 PRN (Reason: Anxiety) RF: 0 melatonin 3 mg Tablet 3 mg PO HS RF: 0 magnesium hydroxide [Milk of Magnesia] 400 mg/5 mL Suspension 30 ml PO DAILY PRN (Reason: Constipation) RF: 0 polyethylene glycol 3350 [Miralax] 17 gram/dose Powder 17 g PO DAILY RF: 0 multivitamin Tablet 1 tab PO DAILY RF: 0 oxycodone 5 mg tablet 5 mg PO Q6H PRN (Reason: .PAIN # 5-10) RF: 0 promethazine 25 mg tablet 25 mg PO Q6H PRN (Reason: Nausea And Vomiting) RF: 0 torsemide 20 mg tablet 20 mg PO DAILY RF: 0 acetaminophen [Tylenol] 325 mg Tablet 650 mg PO Q6 MDD 3G PRN (Reason: Fever Or Pain) RF: 0 Admission Data Admit Date/Time: 06/27/20 02:16 Attending Provider: Olman Troy Admit Provider: Govind Jay Primary Care Provider: Edvin Dias Other Providers: Olman Troy ; Govind Jay ; Ori Moctezuma Coding Level of Care Code D/C Day Management >30 mins Diagnoses Septic shock A41.9; R65.21 Comfort measures only status Z51.5
--- NOTE | 2020-06-28 16:42 | Death Pronouncement Note ---
Date of Service June 28, 2020 Pronouncement Note Admission Date Admission Date: June 27, 2020 Date and Time of Date of : 06/28/20 Time of : 15:37 PCOD Preliminary cause of : Septic shock Contributing Factors (1) Septic shock: (2) Comfort measures only status: Hospital Course Hospital Course: Made comfort care today. Notified he passed at 15:37. Pronounced at that time. Additional Data Confirmation of : no pulse, no respirations, no heart sounds and pupils fixed and dilated Family: contacted Attending/PCP notified?: Yes Attending physician: Olman Troy MD Was code activated?: No Autopsy requested?: No soft work wrapper examiner notified?: No Organ bank notified?: No Advance directives: Yes Coding Level of Care Code D/C Day Management >30 mins Diagnoses Septic shock A41.9; R65.21 Comfort measures only status Z51.5
== END 2020-06-28 17:42 | disposition expired | DRG 871 ==
LOC: ED 22:10 → SUATTDRO 06-27 02:16 → 1E 06-27 02:16